=== PATIENT | male | born 1960 | race Caucasian/White ===

== ENCOUNTER 2016-06-20 10:13 | Outpatient (RCR) | payer MEDICARE, MEDICAID ==
[2016-08-03] MEDS ORDERED: POTA-51 PO (11:18)
[2016-08-03] MEDS ORDERED: SERT50TA9 PO (11:18)
[2016-08-03] MEDS ORDERED: HYDR-756 PO (11:18)
[2016-08-03] MEDS ORDERED: ALBU2.5V4 IH (11:18)
[2016-08-03] MEDS ORDERED: INSU100I29 SQ (11:18)
[2016-08-03] MEDS ORDERED: NYST15CR TP (11:18)
[2016-08-03] MEDS ORDERED: LISI-552 PO (11:18)
[2016-08-03] MEDS ORDERED: ONDA4TAB11 PO (11:18)
[2016-08-03] MEDS ORDERED: MELA1TAB27 PO (11:18)
[2016-08-03] MEDS ORDERED: MAGN500T PO (11:18)
[2016-08-03] MEDS ORDERED: FENT1PAT6 TD (11:18)
[2016-08-03] MEDS ORDERED: ALLO100T PO (11:18)
[2016-08-03] MEDS ORDERED: PANT20TA3 PO (11:18)
[2016-08-03] MEDS ORDERED: FURO80TA3 PO (11:18)
[2016-08-03] MEDS ORDERED: VITS42.53 TP (11:18)
[2016-08-03] MEDS ORDERED: TLT2T PO (11:18)
[2016-08-03] MEDS ORDERED: GABA-488 PO (11:18)
[2016-08-03] MEDS ORDERED: INSU100I14 SQ ×2 (11:18)
[2016-08-03] MEDS ORDERED: DULO60CA58 PO (11:18)
[2016-08-03] MEDS ORDERED: DOCU100C37 PO (11:18)
[2016-08-03] MEDS ORDERED: ASPI-983 PO (11:18)
[2016-08-03] MEDS ORDERED: DULO30CA48 PO (11:18)
[2016-08-03] MEDS ORDERED: DILT240C87 PO (11:18)
[2016-08-03] MEDS ORDERED: RIVA20TA PO (11:18)
[2016-08-03] MEDS ORDERED: ATOR20TA66 PO (11:18)
[2016-08-03] MEDS ORDERED: LURA80TA3 PO (11:18)
[2016-08-03] MEDS ORDERED: METF1000 PO (11:18)
[2016-08-03] MEDS ORDERED: FENT1PAT11 TD (11:18)
[2016-08-03] MEDS ORDERED: MIRT15TA6 PO (11:18)
[2016-08-03] MEDS ORDERED: THIA100T12 PO (11:18)
[2016-08-03] MEDS ORDERED: MAGN400O7 PO (11:18)
[2016-08-03] MEDS ORDERED: SITA50TA PO (11:18)
[2016-08-03] MEDS ORDERED: LACT10SO PO (11:18)
[2016-08-03] MEDS ORDERED: SENN-140 PO (11:18)
[2016-08-03] MEDS ORDERED: TAMS0.4C2 PO (11:18)
[2016-08-03] MEDS ORDERED: POLY119P5 PO (11:18)
[2016-08-03] MEDS ORDERED: MIRA50TA PO (11:18)
[2016-08-03] MEDS ORDERED: PHEN100C11 PO (11:28)
== END 2016-09-18 | disposition home or self-care (01) ==
LOC: CARD 10:13
PROVIDERS: ATTEND Internal Medicine Interventional Cardiology
DX: I48.0 Paroxysmal atrial fibrillation (principal)
CPT/HCPCS: 93225; 93226

== ENCOUNTER 2016-07-04 13:00 | Outpatient (RCR) | payer MEDICARE, MEDICAID | END 2016-07-25 11:28 | disposition home or self-care (01) | PROVIDERS: ATTEND Nurse Practitioner Community Health | DX: M79.89 Other specified soft tissue disorders (principal); Z86.73 Personal history of transient ischemic attack (TIA), and cerebral infarction without residual deficits ==

== ENCOUNTER → 2016-07-06 | Outpatient (CLI) | payer MEDICARE, MEDICAID ==
[~2016-07-06] MED LIST: REGADENOSON 0.4 MG/5 ML SYR (LEXISCAN) IV ONE
== END ==
LOC: CARD 07:23
PROVIDERS: ATTEND Internal Medicine Interventional Cardiology
DX: E11.9 Type 2 diabetes mellitus without complications (principal); R07.9 Chest pain, unspecified
CPT/HCPCS: 78452; 93017

== ENCOUNTER 2016-07-20 09:45 | Outpatient (RCR) | payer MEDICARE, MEDICAID ==
[~2016-07-20 09:45] MED LIST changes: +CATHETER FLUSH 10 ML SYR IV PRN; -REGADENOSON 0.4 MG/5 ML SYR (LEXISCAN) IV ONE
[2016-08-03] MEDS ORDERED: LACT10SO PO (11:18)
[2016-08-03] MEDS ORDERED: DULO30CA48 PO (11:18)
[2016-08-03] MEDS ORDERED: ASPI-983 PO (11:18)
[2016-08-03] MEDS ORDERED: HYDR-756 PO (11:18)
[2016-08-03] MEDS ORDERED: DULO60CA58 PO (11:18)
[2016-08-03] MEDS ORDERED: DILT240C87 PO (11:18)
[2016-08-03] MEDS ORDERED: MELA1TAB27 PO (11:18)
[2016-08-03] MEDS ORDERED: THIA100T12 PO (11:18)
[2016-08-03] MEDS ORDERED: ATOR20TA66 PO (11:18)
[2016-08-03] MEDS ORDERED: SERT50TA9 PO (11:18)
[2016-08-03] MEDS ORDERED: SENN-140 PO (11:18)
[2016-08-03] MEDS ORDERED: VITS42.53 TP (11:18)
[2016-08-03] MEDS ORDERED: TAMS0.4C2 PO (11:18)
[2016-08-03] MEDS ORDERED: INSU100I29 SQ (11:18)
[2016-08-03] MEDS ORDERED: MAGN400O7 PO (11:18)
[2016-08-03] MEDS ORDERED: FURO80TA3 PO (11:18)
[2016-08-03] MEDS ORDERED: PANT20TA3 PO (11:18)
[2016-08-03] MEDS ORDERED: LISI-552 PO (11:18)
[2016-08-03] MEDS ORDERED: LURA80TA3 PO (11:18)
[2016-08-03] MEDS ORDERED: RIVA20TA PO (11:18)
[2016-08-03] MEDS ORDERED: ONDA4TAB11 PO (11:18)
[2016-08-03] MEDS ORDERED: FENT1PAT6 TD (11:18)
[2016-08-03] MEDS ORDERED: FENT1PAT11 TD (11:18)
[2016-08-03] MEDS ORDERED: POTA-51 PO (11:18)
[2016-08-03] MEDS ORDERED: MIRA50TA PO (11:18)
[2016-08-03] MEDS ORDERED: ALLO100T PO (11:18)
[2016-08-03] MEDS ORDERED: TLT2T PO (11:18)
[2016-08-03] MEDS ORDERED: GABA-488 PO (11:18)
[2016-08-03] MEDS ORDERED: MIRT15TA6 PO (11:18)
[2016-08-03] MEDS ORDERED: DOCU100C37 PO (11:18)
[2016-08-03] MEDS ORDERED: INSU100I14 SQ ×2 (11:18)
[2016-08-03] MEDS ORDERED: ALBU2.5V4 IH (11:18)
[2016-08-03] MEDS ORDERED: MAGN500T PO (11:18)
[2016-08-03] MEDS ORDERED: POLY119P5 PO (11:18)
[2016-08-03] MEDS ORDERED: NYST15CR TP (11:18)
[2016-08-03] MEDS ORDERED: METF1000 PO (11:18)
[2016-08-03] MEDS ORDERED: SITA50TA PO (11:18)
[2016-08-03] MEDS ORDERED: PHEN100C11 PO (11:28)
== END 2016-09-20 | disposition home or self-care (01) ==
LOC: CARD 09:45
PROVIDERS: ATTEND Internal Medicine Interventional Cardiology
DX: I48.0 Paroxysmal atrial fibrillation (principal)
CPT/HCPCS: 93270

== ENCOUNTER → 2016-07-26 | Outpatient (CLI) | payer MEDICARE, MEDICAID | LOC: CARD 11:05 | PROVIDERS: ATTEND Internal Medicine Interventional Cardiology | DX: R06.02 Shortness of breath (principal); I48.0 Paroxysmal atrial fibrillation; R07.9 Chest pain, unspecified ==

== ENCOUNTER 2016-08-03 08:48 | Day surgery (SDC) | payer MEDICARE, MEDICAID ==
[~2016-08-03] VITALS: Ht 172.7 cm; Wt 158.8 kg
[2016-08-03] VITALS (7 sets, daily range): BP systolic 113–141; BP diastolic 52–91
[2016-08-03] MEDS ORDERED: HEParin (CATH LAB) 2,000 ML IV ONE (08:54)
[2016-08-03] MEDS ORDERED: NS IV 1000 ML 1,000 ML ONE (08:54)
[2016-08-03] MEDS ORDERED: NS IV 1000 ML 1,000 ML IV SCH ×2 (09:01→12:17)
[2016-08-03 09:38] LABS: MEAN PLATELET VOLUME 10.8 FL (7.4-10.4); RED BLOOD COUNT 3.84 10^6/uL (4.35-5.85); RED CELL DISTRIBUTION WIDTH 13.9 % (10.0-14.5); WHITE BLOOD COUNT 5.1 10^3/uL (4.3-11.0)
[2016-08-03 09:56] LABS: ALANINE AMINOTRANSFERASE 28 U/L (0-55); ALBUMIN 4.1 GM/DL (3.2-4.5); ANION GAP 10 MMOL/L (5-14); ASPARTATE AMINO TRANSFERASE 20 U/L (5-34); BILIRUBIN,TOTAL 0.3 MG/DL (0.1-1.0); BLOOD UREA NITROGEN 31 MG/DL (7-18); BUN/CREATININE RATIO 31 (0-20); CALCIUM 9.9 MG/DL (8.5-10.1); CARBON DIOXIDE 27 MMOL/L (21-32); CHLORIDE 103 MMOL/L (98-107); CREATININE SERUM 0.99 MG/DL (0.60-1.30); GFR ESTIMATED > 60; GLUCOSE 139 MG/DL (70-105); HEMOLYSIS 3 (-100-29); ICTERUS 0.3 (-100-1.9); LIPEMIA -1 (-100-49); POTASSIUM 4.7 MMOL/L (3.6-5.0); SODIUM 140 MMOL/L (135-145); TOTAL PROTEIN 7.6 GM/DL (6.4-8.2)
[2016-08-03] MEDS ORDERED: fentaNYL INJECTION 100 MCG/2 ML AMP ONE (10:23)
[2016-08-03] MEDS ORDERED: MIDAZOLAM 5 MG/5 ML (VERSED) VIAL ONE (10:23)
[2016-08-03] MEDS ORDERED: VERAPAMIL 5 MG/2 ML (CALAN) VIAL IV ONE (10:24)
[2016-08-03] MEDS ORDERED: NITROGLYCERIN DRIP 25 MG/D5W 250 ML IV ONE (10:24)
[2016-08-03] MEDS ORDERED: diphenhydrAMINE 50 MG/ML INJ (BENADRYL) ONE (10:24)
[2016-08-03] MEDS ORDERED: HEParin 1000 UNIT/ML (10ML VIAL) FOR BOLUS ONE (10:24)
[2016-08-03 10:58] LABS: PROTHROMBIN TIME PATIENT 12.8 SEC (12.2-14.7)
[2016-08-03] MEDS ORDERED: MAGN400O7 PO (11:18)
[2016-08-03] MEDS ORDERED: ALBU2.5V4 IH (11:18)
[2016-08-03] MEDS ORDERED: TAMS0.4C2 PO (11:18)
[2016-08-03] MEDS ORDERED: ALLO100T PO (11:18)
[2016-08-03] MEDS ORDERED: DILT240C87 PO (11:18)
[2016-08-03] MEDS ORDERED: HYDR-756 PO (11:18)
[2016-08-03] MEDS ORDERED: ONDA4TAB11 PO (11:18)
[2016-08-03] MEDS ORDERED: THIA100T12 PO (11:18)
[2016-08-03] MEDS ORDERED: MAGN500T PO (11:18)
[2016-08-03] MEDS ORDERED: VITS42.53 TP (11:18)
[2016-08-03] MEDS ORDERED: FURO80TA3 PO (11:18)
[2016-08-03] MEDS ORDERED: SERT50TA9 PO (11:18)
[2016-08-03] MEDS ORDERED: LACT10SO PO (11:18)
[2016-08-03] MEDS ORDERED: DOCU100C37 PO (11:18)
[2016-08-03] MEDS ORDERED: NYST15CR TP (11:18)
[2016-08-03] MEDS ORDERED: ASPI-983 PO (11:18)
[2016-08-03] MEDS ORDERED: FENT1PAT6 TD (11:18)
[2016-08-03] MEDS ORDERED: PANT20TA3 PO (11:18)
[2016-08-03] MEDS ORDERED: INSU100I29 SQ (11:18)
[2016-08-03] MEDS ORDERED: LISI-552 PO (11:18)
[2016-08-03] MEDS ORDERED: POLY119P5 PO (11:18)
[2016-08-03] MEDS ORDERED: MIRT15TA6 PO (11:18)
[2016-08-03] MEDS ORDERED: SITA50TA PO (11:18)
[2016-08-03] MEDS ORDERED: RIVA20TA PO (11:18)
[2016-08-03] MEDS ORDERED: TLT2T PO (11:18)
[2016-08-03] MEDS ORDERED: POTA-51 PO (11:18)
[2016-08-03] MEDS ORDERED: MELA1TAB27 PO (11:18)
[2016-08-03] MEDS ORDERED: MIRA50TA PO (11:18)
[2016-08-03] MEDS ORDERED: DULO60CA58 PO (11:18)
[2016-08-03] MEDS ORDERED: DULO30CA48 PO (11:18)
[2016-08-03] MEDS ORDERED: METF1000 PO (11:18)
[2016-08-03] MEDS ORDERED: ATOR20TA66 PO (11:18)
[2016-08-03] MEDS ORDERED: GABA-488 PO (11:18)
[2016-08-03] MEDS ORDERED: SENN-140 PO (11:18)
[2016-08-03] MEDS ORDERED: INSU100I14 SQ ×2 (11:18)
[2016-08-03] MEDS ORDERED: LURA80TA3 PO (11:18)
[2016-08-03] MEDS ORDERED: FENT1PAT11 TD (11:18)
[2016-08-03] MEDS ORDERED: PHEN100C11 PO (11:28)
[2016-08-03 11:54] LABS: BILIRUBIN,URINE NEGATIVE (NEGATIVE); KETONES,URINE NEGATIVE (NEGATIVE); LEUKOCYTE ESTERASE ,URINE 2+ (NEGATIVE); NITRITE,URINE NEGATIVE (NEGATIVE); PH,URINE 5 (5-9); PROTEIN,URINE NEGATIVE (NEGATIVE); UROBILINOGEN,URINE NORMAL (NORMAL)
[2016-08-03 12:05] LABS: SQUAMOUS EPITHELIAL CELL,UR 0-2 /HPF; WBC,URINE RARE /HPF
--- NOTE | 2016-08-03 12:15 | Cardiac Procedure Note-CS/ASA ---
Pre-Procedure Note Pre-Op Procedure Note H&P Reviewed The H&P was reviewed, patient examined and no changes noted. Date H&P Reviewed: Aug 03, 2016 Time H&P Reviewed: 11:30 Conscious Sedation Pre-Proced Time Reviewed: 11:30 ASA Class: 3 Airway Mallampati Classification: (robinson appropriate class) I. II. III, IV Lungs Heart ASA score ASA 1: a normal healthy patient ASA 2: a patient with a mild systemic disease (mid diabetes, controlled hypertension, obesity ASA 3: a patient with a severe systemic disease that limits activity (angina , COPD, prior Myocardial infarction) ASA 4: a patient with an incapacitating disease that is a constant threat to life (CHF, renal failure) ASA 5: a moribund patient not expected to survive 24 hrs. (ruptured aneurysm) ASA 6: a declared brain patient whose organs are being harvested. For emergent operations, add the letter E after the classification Grade 1 Sedation Plan: Analgesia, Amnesia, Plan communicated to team members, Discussed options with patient/fam, Discussed risks with patient/fam Note The patient is an appropriate candidate to undergo the planned procedure, sedation, and anesthesia. The patient immediately re-assessed prior to indication. Daniel CHILDS MD Aug 03, 2016 12:15 pm
--- NOTE | 2016-08-03 12:17 | Cardiology Post Procedure Note ---
Post-Procedure Note Physician (s)/Materials Recycler (s) Physician Daniel CHILDS MD Pre-Procedure Diagnosis Pre-Procedure Diagnosis: recurrent chest pain, abnormal nuclear stress test Post-Procedure Note Procedure Start Date: Aug 03, 2016 Procedure Start Time: 11:45 Name of Procedure: coronary angiography, left heart catheterization Findings/Procedure Note patent epicardial coronary vessels. fluoroscopy time in minutes 8.8 minutes Fluoroscopy dose: 1405 mgy Anesthesia Type: Conscious Sedation Estimated blood loss (mL): 10 mL Contrast Amount: 182 Post-Procedure Diagnosis Post-operative diagnosis: patent epicardial coronary vessels Daniel CHILDS MD Aug 03, 2016 12:17 pm
--- NOTE | 2016-08-03 12:20 | Discharge Inst-Post CATH ---
Discharge Inst-CATH Post Cardiac Cath D/C Inst Follow Up/Plan follow-up with primary care physician CARDIAC CATH DISCHARGE INSTRUCTIONS *Hold Metformin for 48 hours post heart cath. ACTIVITY * Go Home directly and rest. * Limit activity of the leg (or wrist if it was used) for 7 days including aerobics, swimming, jogging, bicycling, etc. * Restrict stair-climbing for 7 days if possible, if not, climb up with your non -cath leg, then bring together on the same step. * Avoid lifting, pushing, pulling or excessive movement of the affected extremity for 7 days. * Customary sexual activity may be resumed after 2 days-use caution not to use a position that strains or causes pain to the affected extremity. * No driving for 24 hours. * NO SMOKING. * Avoid straining for bowel movements for 7 days. * Gentle walking on level ground is allowed. * Returning to work will depend on the type of procedure and the results. Your doctor will discuss this with you. CALL YOUR DOCTOR FOR ANY OF THE FOLLOWING: *If bleeding from the puncture site occurs- Apply gentle pressure to site with clean cloth and call your doctor or EMS. * If a knot or lump forms under the skin, increases in size, or causes pain. * If bruising appears to be worsening or moving further down your leg instead of disappearing. * Temperature above 101 F. CARE OF YOUR GROIN INCISION; * Bruising or purple discoloration of the skin near the puncture site is common. * You may shower only, no bathtub bathing for 5 days. Be careful to avoid slipping as your leg may feel stiff. * If a closure device was used on your femoral artery, please see the attached guide regarding care of the device and your leg. * REMOVE the dressing from your groin the next day after your procedure in the shower. CARE OF YOUR WRIST INCISION; * Bruising or purple discoloration of the skin near the puncture site is common. * You may shower. * DO NOT submerge wrist. * Remove dressing in 24 hours. Daniel CHILDS MD Aug 03, 2016 12:20 pm
--- NOTE | 2016-08-03 12:22 | Cardiology Discharge Summary ---
Diagnosis/Chief Complaint Date of Admission 08/03/2016 Date of Discharge 08/03/2016 Admission Diagnosis recurrent chest pain, abnormal nuclear stress test Final/Discharge Diagnosis patent epicardial coronary vessels Chief Complaint/HPI Chief Complaint/HPI recurrent chest pain, abnormal nuclear stress test Discharge Summary Procedures coronary angiography Discharge Physical Examination stable Hospital Course stable Pending Labs Laboratory Tests 08/03/16 09:28: White Blood Count 5.1, Red Blood Count 3.84, Hemoglobin 11.8, Hematocrit 36, Mean Corpuscular Volume 95, Mean Corpuscular Hemoglobin 31, Mean Corpuscular Hemoglobin Concent 32, Red Cell Distribution Width 13.9, Platelet Count 145, Mean Platelet Volume 10.8, Sodium Level 140, Potassium Level 4.7, Chloride Level 103, Carbon Dioxide Level 27, Anion Gap 10, Blood Urea Nitrogen 31, Creatinine 0.99, Estimat Glomerular Filtration Rate > 60, BUN/Creatinine Ratio 31, Glucose Level 139, Calcium Level 9.9, Total Bilirubin 0.3, Aspartate Amino Transf (AST/SGOT) 20, Alanine Aminotransferase (ALT/SGPT) 28, Alkaline Phosphatase 43, Total Protein 7.6, Albumin 4.1 08/03/16 10:40: Prothrombin Time 12.8, INR Comment 1.0, Activated Partial Thromboplast Time 28 08/03/16 10:55: Urine Color YELLOW, Urine Clarity CLEAR, Urine pH 5, Urine Specific Logan 1.010, Urine Protein NEGATIVE, Urine Glucose (UA) NEGATIVE, Urine Ketones NEGATIVE, Urine Nitrite NEGATIVE, Urine Bilirubin NEGATIVE, Urine Urobilinogen NORMAL, Urine Leukocyte Esterase 2+, Urine RBC (Auto) NEGATIVE, Urine RBC NONE, Urine WBC RARE, Urine Squamous Epithelial Cells 0-2, Urine Crystals NONE, Urine Bacteria NEGATIVE, Urine Casts NONE, Urine Mucus NEGATIVE, Urine Culture Indicated NO Discussion & Recommendations Discussion patent epicardial coronary vessels. Cardiology follow-up not required. Follow- up with primary care physician. Follow up appt.: primary care physician in 2-3 weeks. Dicharge Diet: Cardiac Diet Activity as Tolerated: Yes Home Medications Reviewed patient Home Medication Reconciliation Form Discharge Home Medications: Reviewed and agree with Discharge Medication list on patient's Discharge Instruction sheet Condition at discharge stable Instructions to patient/family follow-up with primary care physician Daniel CHILDS MD Aug 03, 2016 12:22 pm
[2016-08-03] MEDS ORDERED: PATIENT MAY USE OWN MEDS, ALL PO SCH (12:30)
--- NOTE | 2016-08-03 13:04 | CARDIAC CATHETERIZATION ---
DATE OF SERVICE: 08/03/2016 CORONARY ANGIOGRAPHY INDICATION: Recurrent chest pain, abnormal nuclear stress test. PREOPERATIVE DIAGNOSES: Recurrent chest pain, abnormal nuclear stress test. POSTOPERATIVE DIAGNOSIS: Patent epicardial coronary vessels. HISTORY OF PRESENT ILLNESS: The patient is a 56-year-old gentleman who lives in a long-term nursing facility due to a previous stroke with residual damage. He had presented with recurrent chest pain. Stress test was performed, which was abnormal. Therefore, coronary angiography was recommended. PROCEDURES PERFORMED: 1. Coronary angiography. 2. Left heart catheterization. COMPLICATIONS: None. SPECIMENS: None. ANTICOAGULATION: IV heparin. CONTRAST: 182 mL of Omnipaque. FLUOROSCOPY TIME: 8.8 minutes. FLUOROSCOPY DOSE: 1405 mGy. PROCEDURE DETAILS: The patient was brought to the chemical laboratory scientist after informed consent was taken. All the risks and complications were explained in detail. He was draped and prepped in the usual sterile fashion. Access was gained in the right radial artery with a 6-Bulgarian sheath. Left heart catheterization and coronary angiography was performed with a Kong catheter. FINDINGS: 1. Left main is very short left main. Patent. 2. LAD: Patent. 3. Left circumflex artery: Patent. 4. RCA: Patent. 5. Left heart catheterization: Aortic pressure 89/63 mmHg. LV pressure 111/3 mmHg. LVEDP is 12 mmHg. LVEF is 50% to 55% with no wall motion abnormalities. There is no gradient across the aortic valve. IMPRESSION AND CONCLUSION: 1. Patent epicardial coronary vessels. 2. The patient will be discharged later today and transferred to nursing facility. Job ID: [id number] DocumentID: [id number] Dictated Date: 08/03/2016 12:32:31 Escrow Secretary Date: 08/03/2016 13:04:17 Dictated By: NEIL CHILDS MD
--- OUTSIDE RECORDS SUMMARY | 2016-08-07 10:38 | XMS REPORT | Clinical Summary ---
Author Author Admin, [place] Organization [facility] Address Unknown Phone Unavailable Allergies, Adverse Reactions, Alerts Allergy Name Reaction Description Start Date Severity Status Provider PENICILLIN Critical Active [place]ja[place] Giles, RMA Conditions or Problems Problem Name Problem Code Onset Date Status Entry Date Provider Comment Standard Description Annotate DIABETES MELLITUS, TYPE II, CONTROLLED 250.00 Active Jonel Hemphill MD Diabetes mellitus without mention of complication, type II or unspecified type, not stated as uncontrolled MORBID OBESITY 278.01 Active Jonel Hemphill MD Morbid obesity HYPERTENSION 401.1 Active Jonel Hemphill MD Benign essential hypertension 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 USE, CUT IN STATION OPERATOR V58.69 Resolved Jonel Hemphill MD Long-term (current) use of other medications C V A / STROKE 436 Active Gregor Giles, RMA Acute, but ill-defined, cerebrovascular disease C O P D 496 Active Gregor Giles RMA Chronic airway obstruction, not elsewhere classified DIABETES, TYPE 2 250.00 Resolved Jonel Hemphill MD Diabetes mellitus without mention of complication, type II or unspecified type, not stated as uncontrolled SEIZURE DISORDER 780.39 Active Gregor Giles RMA Other convulsions CORONARY HEART DISEASE 414.00 Resolved Jonel Hemphill MD Coronary atherosclerosis of unspecified type of vessel, [place] or graft FH DIABETES V18.0 Resolved Jonel Hemphill MD Family history of diabetes mellitus FH STROKE V17.1 Resolved Jonel Hemphill MD Family history of stroke (cerebrovascular) FAMILY HISTORY COLON CANCER-MOTHER V16.0 Resolved Jonel Hemphill MD Family history of malignant neoplasm of gastrointestinal tract VENOUS INSUFFICIENCY 459.81 Resolved Jonel Hemphill MD Venous (peripheral) insufficiency, unspecified SLEEP APNEA 780.57 Resolved Jonel Hemphill MD Unspecified sleep apnea PERIPHERAL NEUROPATHY 356.9 Active Jonel Hemphill MD Unspecified hereditary and idiopathic peripheral neuropathy LYMPHEDEMA 457.1 Active Jonel Hemphill MD Other lymphedema DIABETIC ULCER, LEG 707.10 Resolved Jonel Hemphill MD Ulcer of lower limb, unspecified SLEEP APNEA 780.57 Resolved Jonel Hemphill MD Unspecified sleep apnea CELLULITIS, LEG, RIGHT 682.6 Resolved Jonel Hemphill MD Cellulitis and abscess of leg, except foot CALLUS, RIGHT FOOT 700 Resolved Jonel Hemphill MD Corns and callosities CHEST PAIN 786.50 Resolved Jonel Hemphill MD Unspecified chest pain C A D 414.00 Active Jonel Hemphill MD Coronary atherosclerosis of unspecified type of vessel, kobuk or graft CONSTIPATION 564.00 Resolved Jonel Hemphill MD Constipation, unspecified RECTAL BLEEDING 569.3 Resolved Jonel Hemphill MD Hemorrhage of rectum and anus FITTING AND ADJUSTMENT OF VASCULAR CATHETER V58.81 Resolved 2012 Jonel Hemphill MD Encounter for fitting and adjustment of vascular catheter VENOUS STASIS ULCER 454.0 Resolved Jonel Hemphill MD Varicose veins of lower extremities with ulcer RECTAL BLEEDING 569.3 Resolved Jonel Hemphill MD Hemorrhage of rectum and anus DEPRESSION 311 Active Jonel Hemphill MD Depressive disorder, not elsewhere classified LUMBAGO 724.2 Resolved Jonel Hemphill MD Lumbago SHOULDER STRAIN, RIGHT 840.9 Resolved Jonel Hemphill MD Sprain of unspecified site of shoulder and upper arm TREMOR 781.0 Resolved Jonel Hemphill MD Abnormal involuntary movements FITTING AND ADJUSTMENT OF VASCULAR CATHETER V58.81 Resolved 2013 Jonel Hemphill MD Encounter for fitting and adjustment of vascular catheter DEHYDRATION 276.51 Resolved Jonel Hemphill MD Dehydration RENAL FAILURE, ACUTE 584.9 Resolved Jonel Hemphill MD Acute kidney failure, unspecified HYPERKALEMIA 276.7 Resolved Jonel Hemphill MD Hyperpotassemia POTASSIUM DEFICIENCY 276.8 Resolved Jonel Hemphill MD Hypopotassemia LOOSE STOOLS 787.91 Resolved Jonel Hemphill MD Diarrhea GOUT 274.9 Active Darian Kitchen Gout, unspecified RENAL INSUFFICIENCY 585.9 Resolved Jonel Hemphill MD Chronic kidney disease, unspecified RENAL FAILURE, CHRONIC 585.9 Active Jonel Hemphill MD Chronic kidney disease, unspecified CHRONIC PAIN SYNDROME 338.4 Active Jonel Hemphill MD Chronic pain syndrome CHRONIC KIDNEY DISEASE UNSPECIFIED 585.9 Resolved Jonel Hemphill MD Chronic kidney disease, unspecified Infection and inflammatory reaction due to other internal prosthetic device, implant, and graft 996.69 Resolved Jonel Hemphill MD Infection and inflammatory reaction due to other internal prosthetic device, implant, and graft AFTERCARE FOLLOW SURGERY SKIN&SUBCUT TISSUE NEC V58.77 Resolved Jonel Hemphill MD Aftercare following surgery of the skin and subcutaneous tissue, NEC Dysuria 788.1 Resolved Jonel Hemphill MD Dysuria Other malaise and fatigue 780.79 Resolved Jonel Hemphill MD Other malaise and fatigue Malaise and fatigue 780.79 Resolved Jonel Hemphill MD Other malaise and fatigue Nightmares 307.47 Resolved Jonel Hemphill MD Other dysfunctions of sleep stages or arousal from sleep Bronchitis-Acute 466.0 Inactive Jonel Hemphill MD Acute bronchitis Foot pain, right 729.5 Resolved Jonel Hemphill MD Pain in limb Tinea corporis 110.5 Resolved Jonel Hemphill MD Dermatophytosis of the body Cellulitis, leg, right 682.6 Inactive Jonel Hemphill MD Cellulitis and abscess of leg, except foot Flank pain, right 789.09 Inactive Jonel Hemphill MD Abdominal pain, other specified site; multiple sites Eye pain 379.91 Resolved Jonel Hemphill MD Pain in or around eye Fever 780.60 Resolved Jonel Hemphill MD Fever , unspecified Chest pain 786.50 Resolved Jonel Hemphill MD Unspecified chest pain Hip pain, right 719.45 Resolved Jonel Hemphill MD Pain in joint involving pelvic region and thigh Bronchitis-Acute 466.0 Resolved Jonel Hemphill MD Acute bronchitis Cellulitis, leg, right 682.6 Resolved Jonel Hemphill MD Cellulitis and abscess of leg, except foot Chest wall pain, acute 786.52 Resolved Jonel Hemphill MD Painful respiration Accidental fall E888.9 Active Jonel Hemphill MD Unspecified fall Obstructive sleep apnea, adult 327.23 Active Jonel Hemphill MD Obstructive sleep apnea (adult) (pediatric) 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 USE, CUT IN STATION OPERATOR ICD-V58.69 Inactive Jonel Hemphill MD DIABETES, TYPE 2 ICD-250.00 Inactive Jonel Hemphill MD CORONARY HEART DISEASE ICD-414.00 Inactive Jonel Hemphill MD FH DIABETES ICD-V18.0 Inactive Jonel Hemphill MD FH STROKE ICD-V17.1 Inactive Jonel Hemphill MD FAMILY HISTORY COLON CANCER-MOTHER ICD-V16.0 Inactive Jonel Hemphill MD VENOUS INSUFFICIENCY ICD-459.81 Inactive Jonel Hemphill MD SLEEP APNEA ICD-780.57 Inactive Jonel Hemphill MD DIABETIC ULCER, LEG ICD-707.10 Inactive Jonel Hemphill MD SLEEP APNEA ICD-780.57 Inactive Jonel Hemphill MD CELLULITIS, LEG, RIGHT ICD-682.6 Inactive Jonel Hemphill MD CALLUS, RIGHT FOOT ICD-700 Inactive Jonel Hemphill MD CHEST PAIN ICD-786.50 Inactive Jonel Hemphill MD CONSTIPATION ICD-564.00 Inactive Jonel Hemphill MD RECTAL BLEEDING ICD-569.3 Inactive Jonel Hemphill MD FITTING AND ADJUSTMENT OF VASCULAR CATHETER ICD-V58.81 Inactive Jonel Hemphill MD VENOUS STASIS ULCER ICD-454.0 Inactive Jonel Hemphill MD RECTAL BLEEDING ICD-569.3 Inactive Jonel Hemphill MD LUMBAGO ICD-724.2 Inactive Jonel Hemphill MD 2013 SHOULDER STRAIN, RIGHT ICD-840.9 Inactive Jonel Hemphill MD TREMOR ICD-781.0 Inactive Jonel Hemphill MD 05/30 FITTING AND ADJUSTMENT OF VASCULAR CATHETER ICD-V58.81 Inactive Jonel Hemphill MD DEHYDRATION ICD-276.51 Inactive Jonel Hemphill MD RENAL FAILURE, ACUTE ICD-584.9 Inactive Jonel Hemphill MD HYPERKALEMIA ICD-276.7 Inactive Jonel Hemphill MD 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 Inactive Jonel Hemphill MD LOOSE STOOLS ICD-787.91 Inactive Jonel Hemphill MD RENAL INSUFFICIENCY ICD-585.9 Inactive Jonel Hemphill MD CHRONIC KIDNEY DISEASE UNSPECIFIED ICD-585.9 Inactive Jonel Hemphill MD Infection and inflammatory reaction due to other internal prosthetic device, implant, 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 Inactive Jonel Hemphill MD AFTERCARE FOLLOW SURGERY SKIN&SUBCUT TISSUE NEC ICD-V58.77 05/30 Inactive Jonel Hemphill MD Dysuria ICD-788.1 Inactive Jonel Hemphill MD 2013 Other malaise and fatigue ICD-780.79 Inactive Jonel Hemphill MD Malaise and fatigue ICD-780.79 Inactive Jonel Hemphill MD Nightmares ICD-307.47 Inactive Jonel Hemphill MD Bronchitis-Acute ICD-466.0 Inactive Jonel Hemphill MD Foot pain, right ICD-729.5 Inactive Jonel Hemphill MD Tinea corporis ICD-110.5 Inactive Jonel Hemphill MD Cellulitis, leg, right ICD-682.6 Inactive Jonel Hemphill MD Flank pain, right ICD-789.09 Inactive Jonel Hemphill MD Eye pain ICD-379.91 Inactive Jonel Hemphill MD Fever ICD-780.60 Inactive Jonel Hemphill MD 10/25 Chest pain ICD-786.50 Inactive Jonel Hemphill MD Hip pain, right ICD-719.45 Inactive Jonel Hemphill MD Bronchitis-Acute ICD-466.0 Inactive Jonel Hemphill MD Cellulitis, leg, right ICD-682.6 Inactive Jonel Hemphill MD Chest wall pain, acute ICD-786.52 Inactive Jonel Hemphill MD Medication List Medication Instructions Start Date Stop Date Generic Name NDC Status Provider Patient Instruction FENTANYL 12 MCG/HR PT72 Apply to clean, dry skin and change every 72 hours FENTANYL [id number] Active Tova Chris Active MIRALAX POWD 17 gms in 4 oz water or juice daily POLYETHYLENE GLYCOL 3350 55313339730 Active Jonel Hemphill MD Active CVS MELATONIN 3 MG ORAL TABS 2 tabs at hs MELATONIN 87622520631 Active Jonel Hemphill MD Active MAGNESIUM GLUCONATE 500 MG ORAL TABS 1 tab twice daily MAGNESIUM GLUCONATE 50725972856 Active Jonel Hemphill MD Active OMEPRAZOLE 20 MG CPDR 1 tablet by mouth daily OMEPRAZOLE 03178570760 Active Jonel Hemphill MD Active DIGOXIN 125 MCG ORAL TABS 1 daily DIGOXIN 10362714918 Active Jonel Hemphill MD Active DILTIAZEM CD 240 MG ORAL [id number] 1 daily DILTIAZEM HCL COATED BEADS 56726949216 Active Jonel Hemphill MD Active NOVOLOG 100 UNIT/ML SC SOLN 70-140=0U 141-180=2 U 181-220=4U 221-260=6U 261- 300=8U 301-340=10U 827=672=87K 381-400=14U INSULIN ASPART 58435429668 Active Jonel Hemphill MD Active ACETAMINOPHEN 325 MG ORAL TABS 1 tab by mouth every 4 hours as needed ACETAMINOPHEN 62018439296 Active Jonel Hemphill MD Active FENTANYL 12 MCG/HR PT72 Apply to clean, dry skin and change every 72 hours FENTANYL 80590000759 No Longer Active Jonel Hemphill MD Active PHENYTOIN 50 MG CHEW 1 TAB PO BID PHENYTOIN 83053614277 No Longer Active Jonel Hemphill MD Active NORCO 5-325 MG TABS 1-2 TAB Q 6 HRS PRN HYDROCODONE- ACETAMINOPHEN 77915788552 No Longer Active Jonel Hemphill MD Active MULTIVITAMINS CAPS 1 DAILY MULTIPLE VITAMIN 61823544786 No Longer Active Jonel Hemphill MD Active BUPROPION HCL ER (SR) 150 MG [id number] 1 twice a day for depression BUPROPION HCL 71622618297 No Longer Active Jonel Hemphill MD Active LISINOPRIL 20 MG TABS 1 tablet by mouth daily LISINOPRIL 18444189165 Active Jonel Hemphill MD Active ULORIC 40 MG ORAL TABS 1 daily for gout. FEBUXOSTAT 22799413554 No Longer Active Jonel Hemphill MD Active CELEXA 20 MG TABS 1 tablet by mouth daily CITALOPRAM HYDROBROMIDE 58951033512 Active Marleni Raida Active ZOFRAN 4 MG TABS 1 po q6hr PRN Nausea ONDANSETRON HCL 16742830533 Active Jonel Hemphill MD Active XARELTO 20 MG ORAL TABS 1 daily RIVAROXABAN 93538349423 Active Jonel Hemphill MD Active JANUVIA 100 MG ORAL TABS 2 tabs daily SITAGLIPTIN PHOSPHATE 77651517167 Active Jonel Hemphill MD Active CELEXA 20 MG TABS Take 1 tablet 1x daily CITALOPRAM HYDROBROMIDE 29395694752 No Longer Active Jonel Hemphill MD Active ATIVAN 0.5 MG TABS Take 1 tablet 2x daily PRN LORAZEPAM 77029051424 No Longer Active Jonel Hemphill MD Active FUROSEMIDE 80 MG ORAL TABS 1 daily FUROSEMIDE 45797311935 Active Jonel Hemphill MD Active MECLIZINE HCL 25 MG CHEW TAB 1 four times a day as needed for dizziness 02/21 MECLIZINE HCL 92770021383 No Longer Active Jonel Hemphill MD Active ZYLOPRIM 300 MG TAB 1 BY MOUTH DAILY ALLOPURINOL 72310990831 No Longer Active Jonel Hemphill MD Active METOPROLOL TARTRATE 50 MG ORAL TABS 1 TAB BY MOUTH TWICE DAILY METOPROLOL TARTRATE 50929352577 No Longer Active Jonel Hemphill MD Active GABAPENTIN 400 MG ORAL CAPS 1 TAB BY MOUTH THREE TIMES DAILY 2015 GABAPENTIN 15728278849 No Longer Active Jonel Hemphill MD Active HYDROCODONE-ACETAMINOPHEN 7.5-325 MG TABS 1 TAB PO Q 6 HRS PRN HYDROCODONE-ACETAMINOPHEN 15293673316 Active Jonel Hemphill MD Active METFORMIN HCL 1000 MG TABS 1 tablet by mouth twice daily METFORMIN HCL 73517101830 Active Marleni Romero Active KLOR-CON 20 MEQ ORAL PACK 1 BY MOUTH DAILY POTASSIUM CHLORIDE 18215564671 Active Marleni Romero Active A+D FIRST AID EXT OINT APPLY OINTMENT AND RUFINO WRAPS TO LOWER EXTEREMETIES DAILY SKIN PROTECTANTS, MISC. 63688131407 Active Jonel Hemphill MD Active NYSTATIN 897144 UNIT/GM EXT OINT APPLY PRN TID TO GAULDING/RASH IN ABDOMINAL FOLDS NYSTATIN 66072290791 Active Jonel Hemphill MD Active GABAPENTIN 300 MG CAPS 1 CAP PO TID GABAPENTIN 54931772071 No Longer Active Jonel Hemphill MD Active DILANTIN 100 MG ORAL CAPS 1 THREE TIMES DAILY FOR SEIZURES PHENYTOIN SODIUM EXTENDED 24804014345 Active Marleni Romero Active CPAP APPLY AT HS CPAP Active Jonel Hepmhill MD Active HYDROCODONE-ACETAMINOPHEN 7.5-325 MG TABS 1 q 6 hrs prn HYDROCODONE-ACETAMINOPHEN 06805497168 No Longer Active Jonel Hemphill MD Active DILANTIN 100 MG CAPS 3 cap tid PHENYTOIN SODIUM EXTENDED 50336218986 No Longer Active Jonel Hemphill MD Active BUDEPRION SR 150 MG [id number] 1 bid BUPROPION HCL 22277574495 No Longer Active Jonel Hemphill MD Active ALLOPURINOL 300 MG TABS 1 qd ALLOPURINOL 57148870276 No Longer Active Jonel Hemphill MD Active COZAAR 100 MG TABS 1 qd LOSARTAN POTASSIUM 56074509068 No Longer Active Jonel Hemphill MD Active CVS VITAMIN C 500 MG TABS 1 po daily ASCORBIC ACID 51981556328 No Longer Active Jonel Hemphill MD Active MIRALAX POWD 17 gms in 4 oz water or juice daily POLYETHYLENE GLYCOL 3350 10514507464 No Longer Active Jonel Hemphill MD Active POTASSIUM CHLORIDE CHELA ER 20 MEQ CR-TABS 1 tab PO daily POTASSIUM CHLORIDE CHELA CR 94243183132 No Longer Active Jonel Hemphill MD Active AMBIEN 10 MG TAB 1 tab by mouth at bedtime as needed for sleep ZOLPIDEM TARTRATE 13729379664 No Longer Active Jonel Hemphill MD Active SULFAMETHOXAZOLE-TMP DS 800-160 MG TABS 1 TAB PO BID SULFAMETHOXAZOLE-TRIMETHOPRIM 97384295777 No Longer Active Jonel Hemphill MD Active LEVEMIR 100 UNIT/ML SOLN 5 units sub-q at bedtime INSULIN DETEMIR 95256887663 No Longer Active Tova Perez Active MOBIC 15 MG TABS 1 tab PO daily for arthritis pain MELOXICAM 62957442112 No Longer Active Tova Perez Active GLUCAGEN 1 MG SOLR INJECT 1MG IM IF BS LESS THAN 60 & RES. IS UNABLE TO SWALLOW GLUCAGON HCL (RDNA) 36082458443 No Longer Active Tova Perez Active CVS MILK OF MAGNESIA 1200 MG/15ML SUSP 30 ml daily for constipation MAGNESIUM HYDROXIDE 29621841083 No Longer Active Tova Perez Active IMDUR 120 MG [id number] 1 qd ISOSORBIDE MONONITRATE 86963968908 No Longer Active Tova Perez Active NEURONTIN 400 MG CAPS Take one by mouth 3 times daily, morning, afternoon and evening.] GABAPENTIN 04824909436 No Longer Active Tova Perez Active ANTIVERT 25 MG TABS 1 q 6 hrs prn MECLIZINE HCL 57373519668 No Longer Active Jonel Hemphill MD Active CLONIDINE HCL 0.2 MG TABS 1 q 8 hrs as needed -greater than 160-htn CLONIDINE HCL 23685068504 No Longer Active Jonel Hemphill MD Active AMBIEN 10 MG TABS 1 q hs prn ZOLPIDEM TARTRATE 93382073430 No Longer Active Jonel Hemphill MD Active GNP THERAPEUTIC-M TABS 1 qd MULTIPLE VITAMINS- MINERALS 00269661590 No Longer Active Jonel Hemphill MD Active METOPROLOL TARTRATE 50 MG TABS 1 bid METOPROLOL TARTRATE 00201581819 No Longer Active Jonel Hemphill MD Active METFORMIN HCL 500 MG TABS 1 bod with food METFORMIN HCL 76643411458 No Longer Active Jonel Hemphill MD Active LISINOPRIL 40 MG TABS 1 qd LISINOPRIL 97425178069 No Longer Active Jonel Hemphill MD Active HYDROCHLOROTHIAZIDE 25 MG TABS 1 qd HYDROCHLOROTHIAZIDE 73915710957 No Longer Active Jonel Hemphill MD Active DURAGESIC-25 25 MCG/HR PT72 place 1 patch on the skin q72hrs for pain FENTANYL 75306087797 No Longer Active Jonel Hemphill MD Active FENTANYL 75 MCG/HR PT72 place 1 patch on skin q72hrs fr pain 2012 FENTANYL 91243777727 No Longer Active Jonel Hemphill MD Active FUROSEMIDE 40 MG TABS 1 q am FUROSEMIDE 63996717844 No Longer Active Jonel Hemphill MD Active HEPARIN (PORCINE) LOCK FLUSH 100 UNIT/ML SOLN Flush port a cath monthly every three week on with Heparin and NS HEPARIN LOCK FLUSH 36903423438 Active Jonel Hemphill MD Active FENTANYL 100 MCG/HR PT72 Apply every 3 days FENTANYL 19609862473 Active Jonel Hemphill MD Active FENTANYL 25 MCG/HR PT72 Apply to clean skin and change every 72 hours. 07/03 FENTANYL 49532651937 No Longer Active Jonel Hemphill MD Active FENTANYL 50 MCG/HR PT72 place 1 patch on skin q72 hours FENTANYL 52451108891 No Longer Active Mayco Shah APRN Active DURAGESIC-12 12 MCG/HR PT72 APPLY PATCH TO SKIN AND CHANGE EVERY 72 HOURS, ROTATE SITES FENTANYL 54019234472 No Longer Active Fozia YANGA Active FUROSEMIDE 20 MG TABS 1 qd FUROSEMIDE 29840922751 No Longer Active [place] Active ADULT ASPIRIN EC LOW STRENGTH 81 MG TBEC 1 qd ASPIRIN 58339336076 Active MARY Perez Active FUROSEMIDE 20 MG TABS 1 qd FUROSEMIDE 20 MG TABS 480033 FUROSEMIDE Inactive DURAGESIC-12 12 MCG/HR PT72 APPLY PATCH TO SKIN AND CHANGE EVERY 72 HOURS, ROTATE SITES DURAGESIC-12 12 MCG/HR PT72 429829 FENTANYL Inactive FENTANYL 50 MCG/HR PT72 place 1 patch on skin q72 hours FENTANYL 50 MCG/HR PT72 404606 FENTANYL Inactive FUROSEMIDE 40 MG TABS 1 q am FUROSEMIDE 40 MG TABS 507917 FUROSEMIDE Inactive FENTANYL 75 MCG/HR PT72 place 1 patch on skin q72hrs fr pain 2012 FENTANYL 75 MCG/HR PT72 216396 FENTANYL Inactive DURAGESIC-25 25 MCG/HR PT72 place 1 patch on the skin q72hrs for pain DURAGESIC-25 25 MCG/HR PT72 068553 FENTANYL Inactive HYDROCHLOROTHIAZIDE 25 MG TABS 1 qd HYDROCHLOROTHIAZIDE 25 MG TABS 098773 HYDROCHLOROTHIAZIDE Inactive LISINOPRIL 40 MG TABS 1 qd LISINOPRIL 40 MG TABS 345754 LISINOPRIL Inactive METFORMIN HCL 500 MG TABS 1 bod with food METFORMIN HCL 500 MG TABS 760897 METFORMIN HCL Inactive METOPROLOL TARTRATE 50 MG TABS 1 bid METOPROLOL TARTRATE 50 MG TABS 575115 METOPROLOL TARTRATE Inactive GNP THERAPEUTIC-M TABS 1 qd GNP THERAPEUTIC-M TABS MULTIPLE VITAMINS-MINERALS Inactive AMBIEN 10 MG TABS 1 q hs prn AMBIEN 10 MG TABS 395280 ZOLPIDEM TARTRATE Inactive CLONIDINE HCL 0.2 MG TABS 1 q 8 hrs as needed -greater than 160-htn CLONIDINE HCL 0.2 MG TABS 276976 CLONIDINE HCL Inactive ANTIVERT 25 MG TABS 1 q 6 hrs prn ANTIVERT 25 MG TABS MECLIZINE HCL Inactive NEURONTIN 400 MG CAPS Take one by mouth 3 times daily, morning, afternoon and evening.] NEURONTIN 400 MG CAPS 244535 GABAPENTIN Inactive IMDUR 120 MG [id number] 1 qd IMDUR 120 MG [id number] ISOSORBIDE MONONITRATE Inactive [facility]S MILK OF MAGNESIA 1200 MG/15ML SUSP 30 ml daily for constipation CVS MILK OF MAGNESIA 1200 MG/15ML SUSP MAGNESIUM HYDROXIDE Inactive GLUCAGEN 1 MG SOLR INJECT 1MG IM IF BS LESS THAN 60 & RES. IS UNABLE TO SWALLOW GLUCAGEN 1 MG SOLR GLUCAGON HCL (RDNA) Inactive MOBIC 15 MG TABS 1 tab PO daily for arthritis pain MOBIC 15 MG TABS 456624 MELOXICAM Inactive LEVEMIR 100 UNIT/ML SOLN 5 units sub-q at bedtime LEVEMIR 100 UNIT/ML SOLN INSULIN DETEMIR Inactive SULFAMETHOXAZOLE-TMP DS 800-160 MG TABS 1 TAB PO BID SULFAMETHOXAZOLE-TMP DS 800-160 MG TABS 651449 SULFAMETHOXAZOLE-TRIMETHOPRIM Inactive AMBIEN 10 MG TAB 1 tab by mouth at bedtime as needed for sleep AMBIEN 10 MG TAB 823100 ZOLPIDEM TARTRATE Inactive POTASSIUM CHLORIDE CHELA ER 20 MEQ CR-TABS 1 tab PO daily POTASSIUM CHLORIDE CHELA ER 20 MEQ CR-TABS POTASSIUM CHLORIDE CHELA CR Inactive MIRALAX POWD 17 gms in 4 oz water or juice daily MIRALAX POWD 048978 POLYETHYLENE GLYCOL 3350 Inactive CVS VITAMIN C 500 MG TABS 1 po daily CVS VITAMIN C 500 MG TABS 182009 ASCORBIC ACID Inactive COZAAR 100 MG TABS 1 qd COZAAR 100 MG TABS 184866 LOSARTAN POTASSIUM Inactive ALLOPURINOL 300 MG TABS 1 qd ALLOPURINOL 300 MG TABS 776917 ALLOPURINOL Inactive BUDEPRION SR 150 MG [id number] 1 bid BUDEPRION SR 150 MG [id number] BUPROPION HCL Inactive DILANTIN 100 MG CAPS 3 cap tid DILANTIN 100 MG CAPS 431426 PHENYTOIN SODIUM EXTENDED Inactive HYDROCODONE-ACETAMINOPHEN 7.5-325 MG TABS 1 q 6 hrs prn HYDROCODONE-ACETAMINOPHEN 7.5-325 MG TABS 214784 HYDROCODONE- ACETAMINOPHEN Inactive GABAPENTIN 300 MG CAPS 1 CAP PO TID GABAPENTIN 300 MG CAPS 631441 GABAPENTIN Inactive GABAPENTIN 400 MG ORAL CAPS 1 TAB BY MOUTH THREE TIMES DAILY 2015 GABAPENTIN 400 MG ORAL CAPS 811978 GABAPENTIN Inactive METOPROLOL TARTRATE 50 MG ORAL TABS 1 TAB BY MOUTH TWICE DAILY METOPROLOL TARTRATE 50 MG ORAL TABS 824871 METOPROLOL TARTRATE Inactive ZYLOPRIM 300 MG TAB 1 BY MOUTH DAILY ZYLOPRIM 300 MG TAB 222147 ALLOPURINOL Inactive MECLIZINE HCL 25 MG CHEW TAB 1 four times a day as needed for dizziness 02/21 MECLIZINE HCL 25 MG CHEW TAB 206598 MECLIZINE HCL Inactive ATIVAN 0.5 MG TABS Take 1 tablet 2x daily PRN ATIVAN 0.5 MG TABS 139267 LORAZEPAM Inactive CELEXA 20 MG TABS Take 1 tablet 1x daily CELEXA 20 MG TABS 280627 CITALOPRAM HYDROBROMIDE Inactive ULORIC 40 MG ORAL TABS 1 daily for gout. ULORIC 40 MG ORAL TABS FEBUXOSTAT Inactive BUPROPION HCL ER (SR) 150 MG [id number] 1 twice a day for depression BUPROPION HCL ER (SR) 150 MG [id number] BUPROPION HCL Inactive MULTIVITAMINS CAPS 1 DAILY MULTIVITAMINS CAPS MULTIPLE VITAMIN Inactive NORCO 5-325 MG TABS 1-2 TAB Q 6 HRS PRN NORCO 5-325 MG TABS 970791 HYDROCODONE-ACETAMINOPHEN Inactive PHENYTOIN 50 MG CHEW 1 TAB PO BID PHENYTOIN 50 MG CHEW 8225596 PHENYTOIN Inactive FENTANYL 12 MCG/HR PT72 Apply to clean, dry skin and change every 72 hours FENTANYL 12 MCG/HR PT72 632728 FENTANYL Inactive FENTANYL 25 MCG/HR PT72 Apply to clean skin and change every 72 hours. 07/03 FENTANYL 25 MCG/HR PT72 333227 FENTANYL Inactive Advance Directives Directive Description Start Date ADVANCE DIRECTIVE Immunizations Vaccine Administration Date Value Standard Description influenza immunization (Flu Vax) has been administered Influenza - Unspecified Formulation [CVX88] influenza virus vaccine, unspecified formulation pneumococcal immunization administered Pneumovax 23 [CVX33] pneumococcal polysaccharide vaccine, 23 valent Vital Signs Date Name Value Unit Range Description blood pressure, diastolic - 8462-4 84 mm[Hg] BP augustin blood pressure, systolic - 8480-6 126 mm[Hg] BP sys pulse rate E&M - 8867-4 87 /min Heart rate temperature E&M 98.6 [degF] Body temperature weight E&M - 3141-9 338 [lb_av] Weight Measured blood pressure, diastolic - 8462-4 72 mm[Hg] BP augustin blood pressure, systolic - 8480-6 130 mm[Hg] BP sys pulse rate E&M - 8867-4 88 /min Heart rate respiratory rate E&M - 9279-1 20 /min Resp rate temperature E&M 99.0 [degF] Body temperature weight E&M - 3141-9 338 [lb_av] Weight Measured blood pressure, diastolic - 8462-4 77 mm[Hg] BP augustin blood pressure, systolic - 8480-6 142 mm[Hg] BP sys pulse rate E&M - 8867-4 89 /min Heart rate respiratory rate E&M - 9279-1 22 /min Resp rate temperature E&M 99.2 [degF] Body temperature weight E&M - 3141-9 334 [lb_av] Weight Measured blood pressure, diastolic, supine 88 mm[Hg] BP augustin blood pressure, systolic, supine E&M 129 mm[Hg] BP sys pulse rate E&M - 8867-4 94 /min Heart rate respiratory rate E&M - 9279-1 20 /min Resp rate temperature E&M 98.7 [degF] Body temperature blood pressure, diastolic - 8462-4 71 mm[Hg] BP augustin blood pressure, systolic - 8480-6 132 mm[Hg] BP sys pulse rate E&M - 8867-4 88 /min Heart rate respiratory rate E&M - 9279-1 22 /min Resp rate temperature E&M 98.7 [degF] Body temperature weight E&M - 3141-9 353 [lb_av] Weight Measured blood pressure, diastolic - 8462-4 55 mm[Hg] BP augustin blood pressure, systolic - 8480-6 108 mm[Hg] BP sys pulse rate E&M - 8867-4 85 /min Heart rate temperature E&M 98.6 [degF] Body temperature weight E&M - 3141-9 339 [lb_av] Weight Measured blood pressure, diastolic - 8462-4 75 mm[Hg] BP augustin blood pressure, systolic - 8480-6 129 mm[Hg] BP sys pulse rate E&M - 8867-4 84 /min Heart rate temperature E&M 98.3 [degF] Body temperature blood pressure, diastolic - 8462-4 66 mm[Hg] BP augustin blood pressure, systolic - 8480-6 110 mm[Hg] BP sys pulse rate E&M - 8867-4 20 /min Heart rate respiratory rate E&M - 9279-1 18 /min Resp rate temperature E&M 97.8 [degF] Body temperature weight E&M - 3141-9 343 [lb_av] Weight Measured blood pressure, diastolic - 8462-4 81 mm[Hg] BP augustin blood pressure, systolic - 8480-6 136 mm[Hg] BP sys pulse rate E&M - 8867-4 83 /min Heart rate respiratory rate E&M - 9279-1 17 /min Resp rate temperature E&M 97.0 [degF] Body temperature blood pressure, diastolic - 8462-4 78 mm[Hg] BP augustin blood pressure, systolic - 8480-6 144 mm[Hg] BP sys pulse rate E&M - 8867-4 86 /min Heart rate respiratory rate E&M - 9279-1 20 /min Resp rate temperature E&M 97.5 [degF] Body temperature weight E&M - 3141-9 385 [lb_av] Weight Measured blood pressure, diastolic - 8462-4 79 mm[Hg] BP augustin blood pressure, systolic - 8480-6 152 mm[Hg] BP sys pulse rate E&M - 8867-4 84 /min Heart rate respiratory rate E&M - 9279-1 24 /min Resp rate temperature E&M 98.7 [degF] Body temperature weight E&M - 3141-9 397 [lb_av] Weight Measured Diagnostic Results Date Name Value Unit Range Description Chart Maintenance: Outside labs entered on flowsheet - Chemistry alanine aminotransferase (SGPT), serum 23 U/L alkaline phosphatase, serum 40 U/L sodium, serum 139 mmol/L potassium, serum 4.8 mmol/L blood glucose 239 mg/dL creatinine, serum 1.17 mg/dL aspartate aminotransferase (SGOT), serum 14 U/L creatinine, serum 1.26 mg/dL blood glucose 190 mg/dL potassium, serum 4.1 mmol/L sodium, serum 139 mmol/L Office Visit: NEED DABETIC SHOES - Chemistry cholesterol, target level 200 mg/dL triglyceride, target level 200 mg/dL HDL cholesterol, serum, target level 35 mg/dL LDL target level 100 mg/dL home glucose monitor utilized Yes Encounters Code Encounter Date Provider Facility CPT-02504 Level 4 Est. Patient 10:04:48 GUEST SERVICE SUPERVISOR Jonel Hemphill MD [facility] CPT-92916 Level 3 Est. Patient 19:05:03 CDT Jonel Hemphill MD [facility] CPT-25968 Level 3 Est. Patient 17:30:47 CDT Kevin Link MD [facility] CPT-10022 Level 3 Est. Patient 18:04:07 CDT Jonel Hemphill MD [facility] CPT-26465 Level 3 Est. Patient 17:18:03 CDT Jonel Hemphill MD [facility] CPT-38335 Level 3 Est. Patient 21:58:03 GUEST SERVICE SUPERVISOR Jonel Hemphill MD [facility] CPT-93759 Level 4 Est. Patient 18:03:14 CDT Jonel Yeager [facility]-48515 Level 4 Est. Patient 13:24:53 CDT Jonel Yeager [facility]-20042 Level 4 Est. Patient 09:15:44 CDT Jonel Yeager [facility]-56605 Level 4 Est. Patient 19:16:01 CDT Jonel Yeager [facility] CPT-41157 Level 4 Est. Patient 11:25:16 CDT Jonel Hemphill MD [facility] CPT-69349 Level 4 Est. Patient 09:00:40 CDT Jonel Yeager [facility]-68446 Level 4 Est. Patient 14:53:58 CDT Jonel Hemphill MD [facility] CPT-89581 Level 4 Est. Patient 22:59:01 CDT Jonel Hemphill MD [facility]-52386 Level 4 Est. Patient 09:29:57 CDT Jonel Hemphill MD [facility]-60801 Level 4 Est. Patient 12:35:53 GUEST SERVICE SUPERVISOR Jonel Hemphill MD [facility]-53017 Level 4 Est. Patient 22:36:09 GUEST SERVICE SUPERVISOR Jonel Hemphill MD [facility]-12831 Level 2 Est. Patient 15:14:15 GUEST SERVICE SUPERVISOR Mayco Shah APRN [facility] CPT-51861 Level 4 Est. Patient 10:36:22 GUEST SERVICE SUPERVISOR Jonel Hemphill MD [facility] CPT-96548 Level 4 Est. Patient 22:01:13 GUEST SERVICE SUPERVISOR Jonel Hemphill MD [facility]-46228 Level 3 Est. Patient 21:50:37 GUEST SERVICE SUPERVISOR Jonel Hemphill MD [facility] CPT-06608 Level 4 Est. Patient 15:02:43 CDT Rubin Pierre MD [facility] CPT-05720 Level 4 Est. Patient 14:27:35 CDT Jonel Hemphill MD [facility]-15577 Level 4 Est. Patient 12:41:17 CDT Jonel Hemphill MD [facility]-83527 Level 4 Est. Patient 16:18:55 CDT Jonel Hemphill MD [facility]-12763 Level 4 Est. Patient 17:58:05 CDT Jonel Hemphill MD [facility]-01012 Level 4 Est. Patient 22:10:06 CDT Jonel Hemphill MD [facility]-64980 Level 4 Est. Patient 13:22:09 CDT Jonel Hemphill MD [facility]-83170 Level 4 Est. Patient 22:52:17 GUEST SERVICE SUPERVISOR Jonel Hemphill MD [facility] CPT-56407 Level 3 Est. Patient 22:34:10 GUEST SERVICE SUPERVISOR Jonel Hemphill MD [facility] CPT-46531 Level 4 Est. Patient 07:49:20 GUEST SERVICE SUPERVISOR Jonel Hemphill MD [facility] Skilled CPT-51064 Level 3 Est. Patient 08:28:27 GUEST SERVICE SUPERVISOR Jonel Hemphill MD [facility] Procedures Code Procedure Name Date Entry Date Standard Description CPT-78518 Level 3 Group Home 21:14:15 GUEST SERVICE SUPERVISOR CPT-24620 Level 3 Group Home 15:38:24 CDT CPT-57951 Level 3 Group Home 08:18:30 CDT CPT-94599 Level 3 Group Home 19:03:14 CDT CPT-83495 Level 3 Group Home 17:42:11 CDT CPT-01284 Level 3 Group Home 16:04:10 CDT CPT-79951 Level 3 Group Home 19:38:15 GUEST SERVICE SUPERVISOR CPT-18462 Level 3 Group Home 19:28:48 GUEST SERVICE SUPERVISOR CPT-90535 Level 3 Group Home 18:02:20 GUEST SERVICE SUPERVISOR CPT-22248 Level 3 Group Home 15:02:14 GUEST SERVICE SUPERVISOR CPT-18493 Level 3 Group Home 12:25:37 CDT CPT-95377 Level 3 Group Home 12:48:39 CDT CPT-31740 Level 3 Group Home 17:39:14 CDT CPT-08505 Level 3 Group Home 13:32:58 CDT CPT-86407 Level 3 Group Home 17:43:43 CDT CPT-13327 Level 3 Group Home 12:03:33 GUEST SERVICE SUPERVISOR CPT-56812 Level 3 Group Home 18:47:28 GUEST SERVICE SUPERVISOR CPT-57015 Level 3 Group Home 17:35:26 GUEST SERVICE SUPERVISOR CPT-46756 Level 3 Group Home 18:44:49 GUEST SERVICE SUPERVISOR CPT-20204 Level 3 Group Home 18:17:33 CDT CPT-40946 Level 3 Group Home 09:25:33 CDT CPT-09758 Level 3 Group Home 19:11:57 CDT CPT-49203 Level 3 Group Home 09:25:52 CDT CPT-26483 Level 3 Group Home 14:23:59 CDT CPT-08222 Level 3 Group Home 12:09:43 CDT CPT-33647 Level 3 Group Home 09:37:40 CDT CPT-66465 Level 3 Group Home 18:23:02 CDT CPT-22854 Level 3 Group Home 14:09:06 CDT CPT-75466 Level 3 Group Home 12:43:27 GUEST SERVICE SUPERVISOR CPT-96513 Postop F/U Visit 14:10:15 GUEST SERVICE SUPERVISOR CPT-22395 [facility] Head and Neck 17:07:14 GUEST SERVICE SUPERVISOR CPT-24888 Level 3 Group Home 16:14:37 GUEST SERVICE SUPERVISOR CPT-62473 Port a cath flush 11:47:42 CDT CPT-55253 Port a cath flush 08:29:49 CDT CPT-OV Office Visit 14:27:58 GUEST SERVICE SUPERVISOR
--- OUTSIDE RECORDS SUMMARY | 2016-08-07 10:38 | XMS REPORT ---
Author Author [email or web address] Medical Staff Organization [facility] Address [address], [place] [id number] Phone [phone] Care Team Providers Care Welder Repair Name Role Phone FRANKO HEMPHILL MD PP [phone] Summary purpose TRANSITION OF CARE AUTO GENERATION Chief Complaint and Reason for Visit No authorized Reason for Visit (Admitting Diagnosis) is available for this visit. Problem list No authorized problems tracked for continuity of care are available for this visit. Encounters No authorized problems tracked for encounter diagnoses are available for this visit. Medications No medications recorded for this patient visit Allergies, adverse reactions, alerts Allergen Category Ingredient Status Reaction Severity Onset Penicillins Drug Allergy Penicillins Confirmed or Verified Immunizations No immunizations recorded for this patient visit Relevant diagnostic tests and/or laboratory data RESULTS Radiology Results [id number] Ankle 3 View PACs Image DATE OF EXAM: Aug 25 2015 RAD 0094-ANKLE 3 VIEW- RIGHT: RADIOLOGY REPORT DATE OF SERVICE: 08/25/15 HISTORY: Fall with injury to right ankle. RIGHT ANKLE 3 VIEWS 0025 HOURS There is no fracture. The malleoli are intact. There is mild degenerative irregularity along the lateral and medial margins of the talus. The talar dome is smooth. There is soft tissue swelling about the distal leg and ankle. IMPRESSION: Degenerative changes in the ankle. No acute bony abnormality. MD ALTHEA Morales/nv08/25/2015 08:15:00 / 08/25/2015 08:34:20 cc:Dr. Franko Hemphill This document has been electronically Signed by: On: DATE OF EXAM: Aug 25 2015 RAD 0094-ANKLE 3 VIEW- RIGHT: RADIOLOGY REPORT DATE OF SERVICE: 08/25/15 HISTORY: Fall with injury to right ankle. RIGHT ANKLE 3 VIEWS 0025 HOURS There is no fracture. The malleoli are intact. There is mild degenerative irregularity along the lateral and medial margins of the talus. The talar dome is smooth. There is soft tissue swelling about the distal leg and ankle. IMPRESSION: Degenerative changes in the ankle. No acute bony abnormality. MD ALTHEA Morales/crista08/25/2015 08:15:00 / 08/25/2015 08:34:20 cc:Dr. Franko Hemphill This document has been electronically Signed by: MANPREET NICHOLS MD On: Aug 24:20A Result Amended on 2015-08-25 at 09:20:18. Previous status was ID. Thoracic Spine - 3 View PACs Image DATE OF EXAM: Aug 25 2015 RAD 0425-THORACIC SPINE-3 VIEW : RADIOLOGY REPORT DATE OF SERVICE: 08/25/15 HISTORY: Back pain, status post fall THORACIC SPINE 3 VIEWS 0035 HOURS The lower thoracic vertebrae are not included on the lateral view. They appear normal in height on the AP view. There are severe degenerative disc changes throughout the thoracic spine with disc narrowing and marginal osteophytes. No definite fractures are seen. IMPRESSION: Suboptimal study. Severe degenerative disc changes. No definite acute abnormality. MD ALTHEA Morales/crista08/25/2015 08:17:00 / 08/25/2015 08:35:09 cc:Dr. Franko Hemphill This document has been electronically Signed by: On: DATE OF EXAM: Aug 25 2015 RAD 0425-THORACIC SPINE-3 VIEW : RADIOLOGY REPORT DATE OF SERVICE: 08/25/15 HISTORY: Back pain, status post fall THORACIC SPINE 3 VIEWS 0035 HOURS The lower thoracic vertebrae are not included on the lateral view. They appear normal in height on the AP view. There are severe degenerative disc changes throughout the thoracic spine with disc narrowing and marginal osteophytes. No definite fractures are seen. IMPRESSION: Suboptimal study. Severe degenerative disc changes. No definite acute abnormality. MD ALTHEA Morales/crista08/25/2015 08:17:00 / 08/25/2015 08:35:09 cc:Dr. Franko Hemphill This document has been electronically Signed by: MANPREET NICHOLS MD On: Aug 24:20A Result Amended on 2015-08-25 at 09:20:19. Previous status was ID. History of procedures No procedures recorded for this patient visit. Functional status Functional Status Finding Observation Time Muscle Strength RLE 5 ROM full resist :15 Abdomen Appearance obese :15 Abdomen soft :15 Wagner no :15 Urination normal :15 Quality sym/unlabored :15 Cough absent :15 Secretions no :15 Airway natural :15 Chest Tube no :15 Oxygen no :19 Temp >100.4 no :15 Temp <96.8 no :15 Chills with rigors no :15 HR > 90bpm yes :15 Respirations > 20 no :15 Systolic <90 no :15 headache stiff neck no :15 Nursing Note Discharge instructions reviewed with pt-verbalized understanding. VS obtained-dc in good condition :19 Vital signs Type Value Date Respiration Rate 20breaths per minute :19 Pulse 89beats per minute :19 Oxygen Saturation 97% :19 BP Systolic 116mmHg :19 BP Diastolic 56mmHg :19 Temperature 98.7F :19 Social history Type Value Smoking Status FORMER SMOKER Treatment Plan No treatment plan text is available for this visit. Hospital discharge instructions Dismissal Condition good Disposition on DC home DC Inst/Educ Give yes Med/Side Effects Rev yes Flu Vac 2014
--- OUTSIDE RECORDS SUMMARY | 2016-08-07 10:39 | XMS REPORT | Clinical Summary ---
Author Author Admin, KARLAE Organization [facility] Address Unknown Phone Unavailable Allergies, Adverse Reactions, Alerts Allergy Name Reaction Description Start Date Severity Status Provider PENICILLIN Critical Active Tulsajaida Giles RMA Conditions or Problems Problem Name Problem Code Onset Date Status Entry Date Provider Comment Standard Description Annotate DIABETES MELLITUS, TYPE II, CONTROLLED 250.00 Active Jonel Hemphill MD Diabetes mellitus without mention of complication, type II or unspecified type, not stated as uncontrolled MORBID OBESITY 278.01 Active Jonel Hemphill MD Morbid obesity HYPERTENSION 401.1 Active Jonel Hemphill MD Benign essential hypertension 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 USE, PRESS CLIPPINGS CUTTER AND PASTER V58.69 Resolved Jonel Hemphill MD Long-term (current) use of other medications C V A / STROKE 436 Active Gregor Giles RMA Acute, but ill-defined, cerebrovascular disease C [...] Coronary atherosclerosis of unspecified type of vessel, [place] or graft FH DIABETES V18.0 Resolved Jonel Hemphill MD Family history of diabetes mellitus FH STROKE V17.1 Resolved Jonel Hemphill MD Family history of stroke (cerebrovascular) FAMILY HISTORY COLON CANCER-MOTHER V16.0 Resolved Jonel Hemphill MD Family history of malignant neoplasm of gastrointestinal tract VENOUS INSUFFICIENCY 459.81 Resolved Jonel Hemphill MD Venous (peripheral) insufficiency, unspecified SLEEP APNEA 780.57 Active Jonel Hemphill MD Unspecified sleep apnea PERIPHERAL NEUROPATHY 356.9 Active Jonel Hemphill MD Unspecified hereditary and idiopathic peripheral neuropathy LYMPHEDEMA 457.1 Active Jonel Hemphill MD Other lymphedema DIABETIC ULCER, LEG 707.10 Resolved Jonel Hemphill MD Ulcer of lower limb, unspecified SLEEP APNEA 780.57 Active Jonel Hemphill MD Unspecified sleep apnea CELLULITIS, LEG, RIGHT 682.6 Resolved Jonel Hemphill MD Cellulitis and abscess of leg, except foot CALLUS, RIGHT FOOT 700 Resolved Jonel Hemphill MD Corns and callosities CHEST PAIN 786.50 Resolved Jonel Hemphill MD Unspecified chest pain C A D 414.00 Active Jonel Hemphill MD Coronary atherosclerosis of unspecified type of vessel, [place] or graft CONSTIPATION 564.00 Resolved Jonel Hemphill [...] MD Acute bronchitis Foot pain, right 729.5 Active Jonel Hemphill MD Pain in limb Tinea corporis 110.5 Active Jonel Hemphill MD Dermatophytosis of the body Cellulitis, leg, right 682.6 Inactive Jonel Hemphill MD Cellulitis and abscess of leg, except foot Flank pain, right 789.09 Inactive Jonel Hemphill MD Abdominal pain, other specified site; multiple sites Eye pain 379.91 Active Jonel Hemphill MD Pain in or around eye Fever 780.60 Active Jonel Hemphill MD Fever, unspecified Chest pain 786.50 Active Jonel Hemphill MD Unspecified chest pain Hip pain, right 719.45 Active Jonel Hemphill MD Pain in joint involving pelvic region and thigh Bronchitis-Acute 466.0 Active Jonel Hemphill MD Acute bronchitis Cellulitis, leg, right 682.6 Active Jonel Hemphill MD Cellulitis and abscess of leg, except foot DIABETES, TYPE 2 ICD-250.00 Inactive Jonel Hemphill MD CORONARY HEART DISEASE ICD-414.00 Inactive Jonel Hemphill MD FH DIABETES ICD-V18.0 Inactive Jonel Hemphill MD FH STROKE ICD-V17.1 Inactive Jonel Hemphill MD FAMILY HISTORY COLON CANCER-MOTHER ICD-V16.0 Inactive Jonel Hemphill MD VENOUS INSUFFICIENCY ICD-459.81 Inactive Jonel Hemphill MD DIABETIC ULCER, LEG ICD-707.10 Inactive Jonel Hemphill MD CELLULITIS, LEG, RIGHT [...] STRAIN, RIGHT ICD-840.9 Inactive Jonel Hemphill MD 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 USE, RESIDENTIAL ICD-V58.69 Inactive Jonel Hemphill MD TREMOR ICD-781.0 Inactive [...] Inactive Jonel Hemphill MD Dysuria ICD-788.1 Inactive oJnel Hemphill MD 2013 Other malaise and fatigue ICD-780.79 Inactive Jonel Hemphill MD Malaise and fatigue ICD-780.79 Inactive Jonel Hemphill MD Nightmares ICD-307.47 Inactive Jonel Hemphill MD Bronchitis-Acute ICD-466.0 Inactive Jonel Hemphill MD Cellulitis, leg, right ICD-682.6 Inactive Jonel Hemphill MD Flank pain, right ICD-789.09 Inactive Jonel Hemphill MD Medication List Medication Instructions Start Date Stop Date Generic Name NDC Status Provider Patient Instruction HYDROCODONE-ACETAMINOPHEN 7.5-325 MG TABS 1 TAB PO Q 6 HRS PRN HYDROCODONE-ACETAMINOPHEN 33411773017 Active Jonel Hemphill MD Active METFORMIN HCL 1000 MG TABS 1 tablet by mouth twice daily METFORMIN HCL 62821588015 Active Marleni Romero Active FENTANYL 12 MCG/HR PT72 Apply to clean, dry skin and change every 72 hours FENTANYL 54219942237 Active Sharon Downs APRN Active KLOR-CON 20 MEQ ORAL PACK 1 BY MOUTH DAILY POTASSIUM CHLORIDE 87099633040 Active Marleni Romero Active A+D FIRST AID EXT OINT APPLY OINTMENT AND RUFINO WRAPS TO LOWER EXTEREMETIES DAILY SKIN PROTECTANTS, MISC. 98325178220 Active Jonel Hemphill MD Active NYSTATIN 172855 UNIT/GM EXT OINT APPLY PRN TID TO GAULDING/RASH IN ABDOMINAL FOLDS NYSTATIN 24454484190 Active Jonel Hemphill MD Active ATIVAN 0.5 MG TABS Take 1 tablet 2x daily PRN LORAZEPAM 89297394480 Active Jonel Hemphill MD Active GABAPENTIN 400 MG ORAL CAPS 1 TAB BY MOUTH THREE TIMES DAILY GABAPENTIN 08684033671 Active Jonel Hemphill MD Active GABAPENTIN 300 MG CAPS 1 CAP PO TID GABAPENTIN 51968062584 No Longer Active Jonel Hemphill MD Active DILANTIN 100 MG ORAL CAPS 1 THREE TIMES DAILY FOR SEIZURES PHENYTOIN SODIUM EXTENDED 21971831750 Active Marleni Romero Active CPAP APPLY AT HS CPAP Active Jonel Hemphill MD Active METOPROLOL TARTRATE 50 MG ORAL TABS 1 TAB BY MOUTH TWICE DAILY METOPROLOL TARTRATE 93473481712 Active Jonel Hemphill MD Active LISINOPRIL 40 MG TABS 1 tablet by mouth twice daily, for blood pressure 03/31 LISINOPRIL 87141294462 Active Jonel Hemphill MD Active BUPROPION HCL ER (SR) 150 MG [id number] 1 twice a day for depression BUPROPION HCL 75123068507 Active Jonel Hemphill MD Active MULTIVITAMINS CAPS 1 DAILY MULTIPLE VITAMIN 23592789808 Active Jonel Hemphill MD Active ZYLOPRIM 300 MG TAB 1 BY MOUTH DAILY ALLOPURINOL 79656543152 Active Jonel Hemphill MD Active HYDROCODONE-ACETAMINOPHEN 7.5-325 MG TABS 1 q 6 hrs prn HYDROCODONE-ACETAMINOPHEN 68938511895 No Longer Active Jonel Hemphill MD Active DILANTIN 100 MG CAPS 3 cap tid PHENYTOIN SODIUM EXTENDED 93981812320 No Longer Active Jonel Hemphill MD Active BUDEPRION SR 150 MG [id number] 1 bid BUPROPION HCL 65810622989 No Longer Active Jonel Hemphill MD Active ALLOPURINOL 300 MG TABS 1 qd ALLOPURINOL 08640583962 No Longer Active Jonel Hemphill MD Active COZAAR 100 MG TABS 1 qd LOSARTAN POTASSIUM 93317538853 No Longer Active Jonel Hemphill MD Active CVS VITAMIN C 500 MG TABS 1 po daily ASCORBIC ACID 52002543911 No Longer Active Jonel Hemphill MD Active MIRALAX POWD 17 gms in 4 oz water or juice daily POLYETHYLENE GLYCOL 3350 64860608502 No Longer Active Jonel Hemphill MD Active POTASSIUM CHLORIDE CHELA ER 20 MEQ CR-TABS 1 tab PO daily POTASSIUM CHLORIDE CHELA CR 28667587597 No Longer Active Jonel Hemphill MD Active AMBIEN 10 MG TAB 1 tab by mouth at bedtime as needed for sleep ZOLPIDEM TARTRATE 44931866226 No Longer Active Jonel Hemphill MD Active SULFAMETHOXAZOLE-TMP DS 800-160 MG TABS 1 TAB PO BID SULFAMETHOXAZOLE-TRIMETHOPRIM 68096396991 No Longer Active Jonel Hemphill MD Active NORCO 5-325 MG TABS 1-2 TAB Q 6 HRS PRN HYDROCODONE- ACETAMINOPHEN 03679091669 Active Jonel Hemphill MD Active LEVEMIR 100 UNIT/ML SOLN 5 units sub-q at bedtime INSULIN DETEMIR 03828222251 No Longer Active Tova Perez Active MOBIC 15 MG TABS 1 tab PO daily for arthritis pain MELOXICAM 66242032899 No Longer Active Tova Perez Active GLUCAGEN 1 MG SOLR INJECT 1MG IM IF BS LESS THAN 60 & RES. IS UNABLE TO SWALLOW GLUCAGON HCL (RDNA) 05039158793 No Longer Active Tova Perez Active CVS MILK OF MAGNESIA 1200 MG/15ML SUSP 30 ml daily for constipation MAGNESIUM HYDROXIDE 83687265914 No Longer Active Tova Perez Active IMDUR 120 MG [id number] 1 qd ISOSORBIDE MONONITRATE 40553079156 No Longer Active Tova Chris Active PHENYTOIN 50 MG CHEW 1 TAB PO BID PHENYTOIN 35243577033 Active Tova Chris Active MECLIZINE HCL 25 MG CHEW TAB 1 four times a day as needed for dizziness 02/21 MECLIZINE HCL 19157426282 Active Tova Chris Active NEURONTIN 400 MG CAPS Take one by mouth 3 times daily, morning, afternoon and evening.] GABAPENTIN 29984252691 No Longer Active Tova Chris Active ANTIVERT 25 MG TABS 1 q 6 hrs prn MECLIZINE HCL 90107228041 No Longer Active Jonel Hemphill MD Active CLONIDINE HCL 0.2 MG TABS 1 q 8 hrs as needed -greater than 160-htn CLONIDINE HCL 75229197885 No Longer Active Jonel Hemphill MD Active AMBIEN 10 MG TABS 1 q hs prn ZOLPIDEM TARTRATE 65287051728 No Longer Active Jonel Hemphill MD Active GNP THERAPEUTIC-M TABS 1 qd MULTIPLE VITAMINS- MINERALS 37615766405 No Longer Active Jonel Hemphill MD Active METOPROLOL TARTRATE 50 MG TABS 1 bid METOPROLOL TARTRATE 51899658059 No Longer Active Jonel Hemphill MD Active METFORMIN HCL 500 MG TABS 1 bod with food METFORMIN HCL 80563581878 No Longer Active Jonel Hemphill MD Active LISINOPRIL 40 MG TABS 1 qd LISINOPRIL 58261818103 No Longer Active Jonel Hemphill MD Active HYDROCHLOROTHIAZIDE 25 MG TABS 1 qd HYDROCHLOROTHIAZIDE 76085573375 No Longer Active Jonel Hemphill MD Active DURAGESIC-25 25 MCG/HR PT72 place 1 patch on the skin q72hrs for pain FENTANYL 75188861545 No Longer Active Jonel Hemphill MD Active FENTANYL 75 MCG/HR PT72 place 1 patch on skin q72hrs fr pain 2012 FENTANYL 33878180389 No Longer Active Jonel Hemphill MD Active LASIX 20 MG TABS 1 tab PO q morning FUROSEMIDE 33008942726 Active Jonel Hemphill MD Active FUROSEMIDE 40 MG TABS 1 q am FUROSEMIDE 81247698404 No Longer Active Jonel Hemphill MD Active HEPARIN (PORCINE) LOCK FLUSH 100 UNIT/ML SOLN Flush port a cath monthly every three week on with Heparin and NS HEPARIN LOCK FLUSH 19691669387 Active Jonel Hemphill MD Active FENTANYL 100 MCG/HR PT72 Apply every 3 days FENTANYL 71617940109 Active Jonel Hemphill MD Active FENTANYL 25 MCG/HR PT72 Apply to clean skin and change every 72 hours. 07/03 FENTANYL 42020746565 No Longer Active Jonel Hemphill MD Active FENTANYL 50 MCG/HR PT72 place 1 patch on skin q72 hours FENTANYL 49955796742 No Longer Active Mayco Shah APRN Active CELEXA 20 MG TABS Take 1 tablet 1x daily CITALOPRAM HYDROBROMIDE 20749981984 Active Jonel Hemphill MD Active DURAGESIC-12 12 MCG/HR PT72 APPLY PATCH TO SKIN AND CHANGE EVERY 72 HOURS, ROTATE SITES FENTANYL 24664116101 No Longer Active Fozia YANGA Active FUROSEMIDE 20 MG TABS 1 qd FUROSEMIDE 41411887260 No Longer Active Mahogany Benton Active ADULT ASPIRIN EC LOW STRENGTH 81 MG TBEC 1 qd ASPIRIN 19081235100 Active MARY Perez Active FUROSEMIDE 20 MG TABS 1 qd FUROSEMIDE 20 MG TABS 130414 FUROSEMIDE Inactive DURAGESIC-12 12 MCG/HR PT72 APPLY PATCH TO SKIN AND CHANGE EVERY 72 HOURS, ROTATE SITES DURAGESIC-12 12 MCG/HR PT72 258634 FENTANYL Inactive FENTANYL 50 MCG/HR PT72 place 1 patch on skin q72 hours FENTANYL 50 MCG/HR PT72 056435 FENTANYL Inactive FUROSEMIDE 40 MG TABS 1 q am FUROSEMIDE 40 MG TABS 627679 FUROSEMIDE Inactive FENTANYL 75 MCG/HR PT72 place 1 patch on skin q72hrs fr pain 2012 FENTANYL 75 MCG/HR PT72 009038 FENTANYL Inactive DURAGESIC-25 25 MCG/HR PT72 place 1 patch on the skin q72hrs for pain DURAGESIC-25 25 MCG/HR PT72 289833 FENTANYL Inactive HYDROCHLOROTHIAZIDE 25 MG TABS 1 qd HYDROCHLOROTHIAZIDE 25 MG TABS 072159 HYDROCHLOROTHIAZIDE Inactive LISINOPRIL 40 MG TABS 1 qd LISINOPRIL 40 MG TABS 902435 LISINOPRIL Inactive METFORMIN HCL 500 MG TABS 1 bod with food METFORMIN HCL 500 MG TABS 782831 METFORMIN HCL Inactive METOPROLOL TARTRATE 50 MG TABS 1 bid METOPROLOL TARTRATE 50 MG TABS 847946 METOPROLOL TARTRATE Inactive GNP THERAPEUTIC-M TABS 1 qd GNP THERAPEUTIC-M TABS MULTIPLE VITAMINS-MINERALS Inactive AMBIEN 10 MG TABS 1 q hs prn AMBIEN 10 MG TABS 799587 ZOLPIDEM TARTRATE Inactive CLONIDINE HCL 0.2 MG TABS 1 q 8 hrs as needed -greater than 160-htn CLONIDINE HCL 0.2 MG TABS 159155 CLONIDINE HCL Inactive ANTIVERT 25 MG TABS 1 q 6 hrs prn ANTIVERT 25 MG TABS MECLIZINE HCL Inactive NEURONTIN 400 MG CAPS Take one by mouth 3 times daily, morning, afternoon and evening.] NEURONTIN 400 MG CAPS 259181 GABAPENTIN Inactive IMDUR 120 MG [id number] 1 qd IMDUR 120 MG [id number] ISOSORBIDE MONONITRATE Inactive CVS MILK OF MAGNESIA [...] for arthritis pain MOBIC 15 MG TABS 063101 MELOXICAM Inactive LEVEMIR 100 UNIT/ML SOLN 5 units sub-q at bedtime LEVEMIR 100 UNIT/ML SOLN INSULIN DETEMIR Inactive SULFAMETHOXAZOLE-TMP DS 800-160 MG TABS 1 TAB PO BID SULFAMETHOXAZOLE-TMP DS 800-160 MG TABS 295961 SULFAMETHOXAZOLE-TRIMETHOPRIM Inactive AMBIEN 10 MG TAB 1 tab by mouth at bedtime as needed for sleep AMBIEN 10 MG TAB 212639 ZOLPIDEM TARTRATE Inactive POTASSIUM CHLORIDE CHELA ER 20 MEQ CR-TABS 1 tab PO daily POTASSIUM CHLORIDE CHELA ER 20 MEQ CR-TABS POTASSIUM CHLORIDE CHELA CR Inactive MIRALAX POWD 17 gms in 4 oz water or juice daily MIRALAX POWD 278249 POLYETHYLENE GLYCOL 3350 Inactive CVS VITAMIN C 500 MG TABS 1 po daily CVS VITAMIN C 500 MG TABS 286070 ASCORBIC ACID Inactive COZAAR 100 MG TABS 1 qd COZAAR 100 MG TABS 996937 LOSARTAN POTASSIUM Inactive ALLOPURINOL 300 MG TABS 1 qd ALLOPURINOL 300 MG TABS 782656 ALLOPURINOL Inactive BUDEPRION SR 150 MG [id number] 1 bid BUDEPRION SR 150 MG [id number] BUPROPION HCL Inactive DILANTIN 100 MG CAPS 3 cap tid DILANTIN 100 MG CAPS 091404 PHENYTOIN SODIUM EXTENDED Inactive HYDROCODONE-ACETAMINOPHEN 7.5-325 MG TABS 1 q 6 hrs prn HYDROCODONE-ACETAMINOPHEN 7.5-325 MG TABS 310964 HYDROCODONE- ACETAMINOPHEN Inactive GABAPENTIN 300 MG CAPS 1 CAP PO TID GABAPENTIN 300 MG CAPS 657356 GABAPENTIN Inactive FENTANYL 25 MCG/HR PT72 Apply to clean skin and change every 72 hours. 07/03 FENTANYL 25 MCG/HR PT72 291660 FENTANYL Inactive Advance Directives Directive Description Start Date ADVANCE DIRECTIVE Immunizations Vaccine Administration Date Value Standard Description influenza immunization (Flu Vax) has been administered Influenza - Unspecified Formulation [CVX88] influenza virus vaccine, unspecified formulation pneumococcal immunization administered Pneumovax 23 [CVX33] pneumococcal polysaccharide vaccine, 23 valent Vital Signs Date Name Value Unit Range Description blood pressure, diastolic - 8462-4 81 mm[Hg] [...] E&M - 3141-9 397 [lb_av] Weight Measured blood pressure, diastolic - 8462-4 87 mm[Hg] BP augustin blood pressure, systolic - 8480-6 175 mm[Hg] BP sys pulse rate E&M - 8867-4 81 /min Heart rate respiratory rate E&M - 9279-1 18 /min Resp rate temperature E&M 97.7 [degF] Body temperature weight E&M - 3141-9 403 [lb_av] Weight Measured blood pressure, diastolic - 8462-4 87 mm[Hg] BP augustin blood pressure, systolic - 8480-6 130 mm[Hg] BP sys pulse rate E&M - 8867-4 76 /min Heart rate respiratory rate E&M - 9279-1 20 /min Resp rate temperature E&M 97.1 [degF] Body temperature weight E&M - 3141-9 407 [lb_av] Weight Measured blood pressure, diastolic - 8462-4 86 mm[Hg] BP augustin blood pressure, systolic - 8480-6 174 mm[Hg] BP sys pulse rate E&M - 8867-4 75 /min Heart rate respiratory rate E&M - 9279-1 18 /min Resp rate temperature E&M 97.3 [degF] Body temperature weight E&M - 3141-9 395.2 [lb_av] Weight Measured blood pressure, diastolic - 8462-4 86 mm[Hg] BP augustin blood pressure, systolic - 8480-6 150 mm[Hg] BP sys pulse rate E&M - 8867-4 79 /min Heart rate respiratory rate E&M - 9279-1 20 /min Resp rate temperature E&M 98.1 [degF] Body temperature weight E&M - 3141-9 394.8 [lb_av] Weight Measured blood pressure, diastolic - 8462-4 89 mm[Hg] BP augustin blood pressure, systolic - 8480-6 160 mm[Hg] BP sys pulse rate E&M - 8867-4 73 /min Heart rate respiratory rate E&M - 9279-1 18 /min Resp rate temperature E&M 97.4 [degF] Body temperature weight E&M - 3141-9 393 [lb_av] Weight Measured blood pressure, diastolic - 8462-4 85 mm[Hg] BP augustin blood pressure, systolic - 8480-6 179 mm[Hg] BP sys pulse rate E&M - 8867-4 76 /min Heart rate respiratory rate E&M - 9279-1 18 /min Resp rate temperature E&M 96.8 [degF] Body temperature weight E&M - 3141-9 400 [lb_av] Weight Measured Diagnostic Results Date Name Value Unit Range Description Chart Maintenance: Outside labs entered on flowsheet - Chemistry sodium, serum 144 mmol/L potassium, serum 4.6 mmol/L blood glucose 187 mg/dL creatinine, serum 0.85 mg/dL aspartate aminotransferase (SGOT), serum 33 U/L alanine aminotransferase (SGPT), serum 42 U/L alkaline phosphatase, serum 60 U/L hemoglobin A1C, blood, as % of total hemoglobin 7.2 % sodium, serum 143 mmol/L potassium, serum 3.9 mmol/L blood glucose 147 mg/dL creatinine, serum 0.19 mg/dL aspartate aminotransferase (SGOT), serum 13 U/L alanine aminotransferase (SGPT), serum 13 U/L alkaline phosphatase, serum 51 U/L Chart Maintenance: Outside labs entered on flowsheet - Hematology leukocyte count, blood 6.9 10*3/mm3 hemoglobin, blood 14.4 g/dL platelet count 113 10*3/mm3 Lab Report: HGBA1C - Chemistry hemoglobin A1C, blood, as % of total hemoglobin 6.8 % 4.3-6.0 Encounters Code Encounter Date Provider Facility CPT-02035 Level 3 Est. Patient 18:04:07 CDT Jonel Hemphill MD [facility] CPT-18434 Level 3 Est. Patient 17:18:03 CDT Jonel Hemphill MD [facility] [place] Level 3 Est. Patient 21:58:03 CLINICAL NURSING ASSISTANT Jonel Hemphill MD [facility] [place]-06798 Level 4 Est. Patient 18:03:14 CDT Jonel Hemphill MD [facility]-39370 Level 4 Est. Patient 13:24:53 CDT Jonel Hemphill MD [facility]-34376 Level 4 Est. Patient 09:15:44 CDT Jonel Hemphill MD [facility]-39152 Level 4 Est. Patient 19:16:01 CDT Jonel Hemphill MD [facility]-38225 Level 4 Est. Patient 11:25:16 CDT Jonel Hemphill MD [facility] CPT-99983 Level 4 Est. Patient 09:00:40 CDT Jonel Hemphill MD [facility]-24651 Level 4 Est. Patient 14:53:58 CDT Jonel Hemphill MD [facility] [place]-45883 Level 4 Est. Patient 22:59:01 CDT Jonel Hemphill MD [facility]-63273 Level 4 Est. Patient 09:29:57 CDT Jonel Hepmhill MD [facility]-32164 Level 4 Est. Patient 12:35:53 CLINICAL NURSING ASSISTANT Jonel Hemphill MD [facility]-52463 Level 4 Est. Patient 22:36:09 CLINICAL NURSING ASSISTANT Jonel Hemphill MD [facility]-40732 Level 2 Est. Patient 15:14:15 CLINICAL NURSING ASSISTANT Mayco Shah APRN [facility] CPT-78140 Level 4 Est. Patient 10:36:22 CLINICAL NURSING ASSISTANT Jonel Hemphill MD [facility] CPT-97261 Level 4 Est. Patient 22:01:13 CLINICAL NURSING ASSISTANT Jonel Hemphill MD [facility]-43273 Level 3 Est. Patient 21:50:37 CLINICAL NURSING ASSISTANT Jonel Hemphill MD [facility] CPT-63113 Level 4 Est. Patient 15:02:43 CDT Rubin Pierre MD [facility] CPT-25985 Level 4 Est. Patient 14:27:35 CDT Jonel Hemphill MD [facility]-76898 Level 4 Est. Patient 12:41:17 CDT Jonel Hemphill MD [facility]-24006 Level 4 Est. Patient 16:18:55 CDT Jonel Hemphill MD [facility]-51790 Level 4 Est. Patient 17:58:05 CDT Jonel Hemphill MD [facility] CPT-91569 Level 4 Est. Patient 22:10:06 CDT Jonel Hemphill MD [facility]-49256 Level 4 Est. Patient 13:22:09 CDT Jonel Hemphill MD [facility]-53961 Level 4 Est. Patient 22:52:17 CLINICAL NURSING ASSISTANT Jonel Hemphill MD [facility]-05281 Level 3 Est. Patient 22:34:10 CLINICAL NURSING ASSISTANT Jonel Hemphill MD [facility] CPT-18126 Level 4 Est. Patient 07:49:20 CLINICAL NURSING ASSISTANT Jonel Hemphill MD [facility] CPT-01800 Level 3 Est. Patient 08:28:27 CLINICAL NURSING ASSISTANT Jonel Hemphill MD [facility] Procedures Code Procedure Name Date Entry Date Standard Description CPT-04656 Level 3 Retirement 16:04:10 CDT CPT-80242 Level 3 Retirement 19:38:15 CLINICAL NURSING ASSISTANT CPT-59214 Level 3 Retirement 19:28:48 CLINICAL NURSING ASSISTANT CPT-87191 Level 3 Retirement 18:02:20 CLINICAL NURSING ASSISTANT CPT-93106 Level 3 Retirement 15:02:14 CLINICAL NURSING ASSISTANT CPT-72703 Level 3 Retirement 12:25:37 CDT CPT-47598 Level 3 Retirement 12:48:39 CDT CPT-68825 Level 3 Retirement 17:39:14 CDT CPT-83589 Level 3 Retirement 13:32:58 CDT CPT-71350 Level 3 Retirement 17:43:43 CDT CPT-28471 Level 3 Retirement 12:03:33 CLINICAL NURSING ASSISTANT CPT-48974 Level 3 Retirement 18:47:28 CLINICAL NURSING ASSISTANT CPT-00019 Level 3 Retirement 17:35:26 CLINICAL NURSING ASSISTANT CPT-77214 Level 3 Retirement 18:44:49 CLINICAL NURSING ASSISTANT CPT-76411 Level 3 Retirement 18:17:33 CDT CPT-49554 Level 3 Retirement 09:25:33 CDT CPT-65834 Level 3 Retirement 19:11:57 CDT CPT-67622 Level 3 Retirement 09:25:52 CDT CPT-14120 Level 3 Retirement 14:23:59 CDT CPT-72822 Level 3 Retirement 12:09:43 CDT CPT-17093 Level 3 Retirement 09:37:40 CDT CPT-20674 Level 3 Retirement 18:23:02 CDT CPT-72615 Level 3 Retirement 14:09:06 CDT CPT-10685 Level 3 Retirement 12:43:27 CLINICAL NURSING ASSISTANT CPT-59622 Postop F/U Visit 14:10:15 CLINICAL NURSING ASSISTANT CPT-32954 [facility] 17:07:14 CLINICAL NURSING ASSISTANT CPT-10403 Level 3 Retirement 16:14:37 CLINICAL NURSING ASSISTANT CPT-47968 Port a cath flush 11:47:42 CDT CPT-56768 Port a cath flush 08:29:49 CDT CPT-OV Office Visit 14:27:58 CLINICAL NURSING ASSISTANT
--- OUTSIDE RECORDS SUMMARY | 2016-08-07 10:41 | XMS REPORT | Clinical Summary ---
Author Author Admin, [employer] Organization [facility] Address Unknown Phone Allergies, Adverse Reactions, Alerts Allergy Name Reaction Description Start Date Severity Status Provider PENICILLIN Critical Active Welches [place] Conditions or Problems Problem Name Problem Code Onset Date Status Entry Date Provider Comment Standard Description Annotate DIABETES MELLITUS, TYPE II, CONTROLLED 250.00 Active Jonel Hemphill MD Diabetes mellitus without mention of complication, type II or unspecified type, not stated as uncontrolled MORBID OBESITY 278.01 Active Jonel Hemphill MD Morbid obesity HYPERTENSION 401.1 Active Jonel Hemphill MD Benign essential hypertension 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 USE, RESIDENTIAL V58.69 Resolved Jonel Hemphill MD Long-term (current) use of other medications C V A / STROKE 436 Active Welches Tisha Acute, but ill- defined, cerebrovascular disease C O P D 496 Active Welches [place] Chronic airway obstruction, not elsewhere classified DIABETES, TYPE 2 250.00 Resolved Jonel Hemphill MD Diabetes mellitus without mention of complication, type II or unspecified type, not stated as uncontrolled SEIZURE DISORDER 780.39 Active Welches [place] Other convulsions CORONARY HEART DISEASE 414.00 Resolved Jonel Hemphill MD Coronary atherosclerosis of unspecified type of vessel, [place] or graft FH DIABETES V18.0 Resolved Jonel [...] NEUROPATHY 356.9 Active Jonel Hemphill MD Unspecified idiopathic peripheral neuropathy LYMPHEDEMA 457.1 Active Jonel [...] Coronary atherosclerosis of unspecified type of vessel, [place] or graft CONSTIPATION 564.00 Resolved Jonel Hemphill [...] Jonel Hemphill MD Dermatophytosis of the body 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 USE, RESIDENTIAL ICD-V58.69 Inactive Jonel Hemphill MD DIABETES, TYPE 2 ICD-250.00 Inactive Jonel Hemphill MD CORONARY HEART DISEASE ICD-414.00 Inactive Jonel Hemphill MD DIABETES ICD-V18.0 Inactive Jonel Hemphill MD FH STROKE ICD-V17.1 Inactive oJnel Hemphill MD FAMILY HISTORY COLON CANCER-MOTHER ICD-V16.0 [...] MD Bronchitis-Acute ICD-466.0 Inactive Jonel Hemphill MD Medication List Medication Instructions Start Date Stop Date Generic Name NDC Status Provider Patient Instruction NORCO 5-325 MG TABS 1-2 TAB Q 6 HRS PRN HYDROCODONE- ACETAMINOPHEN 18016703668 Active Jonel Hemphill MD Active LEVEMIR 100 UNIT/ML SOLN 5 units sub-q at bedtime INSULIN DETEMIR 68523315212 No Longer Active Tova Perez Active MOBIC 15 MG TABS 1 tab PO daily for arthritis pain MELOXICAM 45900072553 No Longer Active Tova Perez Active GLUCAGEN 1 MG SOLR INJECT 1MG IM IF BS LESS THAN 60 & RES. IS UNABLE TO SWALLOW GLUCAGON HCL (RDNA) 36166742449 No Longer Active Tova Perez Active [facility] MILK OF MAGNESIA 1200 MG/15ML SUSP 30 ml daily for constipation MAGNESIUM HYDROXIDE 36175623115 No Longer Active Tova Perez Active IMDUR 120 MG [id number] 1 qd ISOSORBIDE MONONITRATE 77424250825 No Longer Active Tova Perez Active METFORMIN HCL 500 MG TABS 1 tablet by mouth twice daily METFORMIN HCL 38924007016 Active Tova Perez Active SULFAMETHOXAZOLE-TMP DS 800-160 MG TABS 1 TAB PO BID SULFAMETHOXAZOLE-TRIMETHOPRIM 40434988281 Active Tova Perez Active PHENYTOIN 50 MG CHEW 1 TAB PO BID PHENYTOIN 37773889345 Active Tova Perez Active MECLIZINE HCL 25 MG CHEW TAB 1 four times a day as needed for dizziness 02/21 MECLIZINE HCL 82012254254 Active Tova Perez Active GABAPENTIN 300 MG CAPS 1 CAP PO TID GABAPENTIN 91664567814 Active Tova Perez Active NEURONTIN 400 MG CAPS Take one by mouth 3 times daily, morning, afternoon and evening.] GABAPENTIN 61149601507 No Longer Active Tova Perez Active AMBIEN 10 MG TAB 1 tab by mouth at bedtime as needed for sleep ZOLPIDEM TARTRATE 96235818672 Active Jonel Hemphill MD Active POTASSIUM CHLORIDE CHLEA ER 20 MEQ CR-TABS 1 tab PO daily POTASSIUM CHLORIDE CHELA CR 65828912980 Active Jonel Hemphill MD Active ANTIVERT 25 MG TABS 1 q 6 hrs prn MECLIZINE HCL 72340416417 No Longer Active Jonel Hemphill MD Active CLONIDINE HCL 0.2 MG TABS 1 q 8 hrs as needed -greater than 160-htn CLONIDINE HCL 55611976405 No Longer Active Jonel Hemphill MD Active AMBIEN 10 MG TABS 1 q hs prn ZOLPIDEM TARTRATE 83977203177 No Longer Active Jonel Hemphill MD Active GNP THERAPEUTIC-M TABS 1 qd MULTIPLE VITAMINS- MINERALS 97079701433 No Longer Active Jonel Hemphill MD Active METOPROLOL TARTRATE 50 MG TABS 1 bid METOPROLOL TARTRATE 71967623241 No Longer Active Jonel Hemphill MD Active METFORMIN HCL 500 MG TABS 1 bod with food METFORMIN HCL 89687884211 No Longer Active Jonel Hemphill MD Active LISINOPRIL 40 MG TABS 1 qd LISINOPRIL 68410566450 No Longer Active Jonel Hemphill MD Active HYDROCHLOROTHIAZIDE 25 MG TABS 1 qd HYDROCHLOROTHIAZIDE 81486450979 No Longer Active Jonel Hemphill MD Active DURAGESIC-25 25 MCG/HR PT72 place 1 patch on the skin q72hrs for pain FENTANYL 29057048328 No Longer Active Jonel Hemphill MD Active FENTANYL 75 MCG/HR PT72 place 1 patch on skin q72hrs fr pain 2012 FENTANYL 99295297268 No Longer Active Jonel Hemphill MD Active LASIX 20 MG TABS 1 tab PO q morning FUROSEMIDE 42511098886 Active Jonel Hemphill MD Active FUROSEMIDE 40 MG TABS 1 q am FUROSEMIDE 95463697547 No Longer Active Jonel Hemphill MD Active HEPARIN (PORCINE) LOCK FLUSH 100 UNIT/ML SOLN Flush port a cath monthly every three week on with Heparin and NS HEPARIN LOCK FLUSH 74882711710 Active Jonel Hemphill MD Active FENTANYL 100 MCG/HR PT72 Apply every 3 days FENTANYL 75016775727 Active Jonel Hemphill MD Active FENTANYL 25 MCG/HR PT72 Apply to clean skin and change every 72 hours. 07/03 FENTANYL 75060525711 No Longer Active Jonel Hemphill MD Active FENTANYL 50 MCG/HR PT72 place 1 patch on skin q72 hours FENTANYL 38798497284 No Longer Active Mayco Shah APRN Active HYDROCODONE-ACETAMINOPHEN 7.5-325 MG TABS 1 q 6 hrs prn HYDROCODONE-ACETAMINOPHEN 28576878278 Active Jonel Hemphill MD Active ATIVAN 0.5 MG TABS Take 1 tablet 2x daily LORAZEPAM 07035941545 Active Jonel Hemphill MD Active CELEXA 20 MG TABS Take 1 tablet 1x daily CITALOPRAM HYDROBROMIDE 84110049188 Active Jonel Hemphill MD Active MIRALAX POWD 17 gms in 4 oz water or juice daily POLYETHYLENE GLYCOL 3350 60770560619 Active Rubin Pierre MD Active DURAGESIC-12 12 MCG/HR PT72 APPLY PATCH TO SKIN AND CHANGE EVERY 72 HOURS, ROTATE SITES FENTANYL 20885217898 No Longer Active Fozia YANGA Active [facility] VITAMIN C 500 MG TABS 1 po daily ASCORBIC ACID 55716098470 Active Mahogany Rincon Active FUROSEMIDE 20 MG TABS 1 qd FUROSEMIDE 59681666595 No Longer Active Mahogany Rincon Active ADULT ASPIRIN EC LOW STRENGTH 81 MG TBEC 1 qd ASPIRIN 46812357855 Active Gregor Tisha Active DILANTIN 100 MG CAPS 3 cap tid PHENYTOIN SODIUM EXTENDED 83040305751 Active Gregor [place] Active BUDEPRION SR 150 MG [id number] 1 bid BUPROPION HCL 87159462954 Active Gregor Tisha Active ALLOPURINOL 300 MG TABS 1 qd ALLOPURINOL 43435880983 Active Welches Tisha Active COZAAR 100 MG TABS 1 qd LOSARTAN POTASSIUM 34024480824 Active Gregor Tisha Active FUROSEMIDE 20 MG TABS 1 qd FUROSEMIDE 20 MG TABS 795377 FUROSEMIDE Inactive DURAGESIC-12 12 MCG/HR PT72 APPLY PATCH TO SKIN AND CHANGE EVERY 72 HOURS, ROTATE SITES DURAGESIC-12 12 MCG/HR PT72 163007 FENTANYL Inactive FENTANYL 50 MCG/HR PT72 place 1 patch on skin q72 hours FENTANYL 50 MCG/HR PT72 785272 FENTANYL Inactive FUROSEMIDE 40 MG TABS 1 q am FUROSEMIDE 40 MG TABS 886486 FUROSEMIDE Inactive FENTANYL 75 MCG/HR PT72 place 1 patch on skin q72hrs fr pain 2012 FENTANYL 75 MCG/HR PT72 716434 FENTANYL Inactive DURAGESIC-25 25 MCG/HR PT72 place 1 patch on the skin q72hrs for pain DURAGESIC-25 25 MCG/HR PT72 214472 FENTANYL Inactive HYDROCHLOROTHIAZIDE 25 MG TABS 1 qd HYDROCHLOROTHIAZIDE 25 MG TABS 059017 HYDROCHLOROTHIAZIDE Inactive LISINOPRIL 40 MG TABS 1 qd LISINOPRIL 40 MG TABS 004698 LISINOPRIL Inactive METFORMIN HCL 500 MG TABS 1 bod with food METFORMIN HCL 500 MG TABS 961289 METFORMIN HCL Inactive METOPROLOL TARTRATE 50 MG TABS 1 bid METOPROLOL TARTRATE 50 MG TABS 154609 METOPROLOL TARTRATE Inactive GNP THERAPEUTIC-M TABS 1 qd GNP THERAPEUTIC-M TABS MULTIPLE VITAMINS-MINERALS Inactive AMBIEN 10 MG TABS 1 q hs prn AMBIEN 10 MG TABS 157908 ZOLPIDEM TARTRATE Inactive CLONIDINE HCL 0.2 MG TABS 1 q 8 hrs as needed -greater than 160-htn CLONIDINE HCL 0.2 MG TABS 313286 CLONIDINE HCL Inactive ANTIVERT 25 MG TABS 1 q 6 hrs prn ANTIVERT 25 MG TABS MECLIZINE HCL Inactive NEURONTIN 400 MG CAPS Take one by mouth 3 times daily, morning, afternoon and evening.] NEURONTIN 400 MG CAPS 585856 GABAPENTIN Inactive IMDUR 120 MG [id number] 1 qd IMDUR 120 MG [id number] ISOSORBIDE MONONITRATE Inactive [facility] MILK OF MAGNESIA [...] for arthritis pain MOBIC 15 MG TABS 834398 MELOXICAM Inactive LEVEMIR 100 UNIT/ML SOLN 5 units sub-q at bedtime LEVEMIR 100 UNIT/ML SOLN INSULIN DETEMIR Inactive FENTANYL 25 MCG/HR PT72 Apply to clean skin and change every 72 hours. 07/03 FENTANYL 25 MCG/HR PT72 591164 FENTANYL Inactive Advance Directives Directive Description Start Date ADVANCE DIRECTIVE Immunizations Vaccine Administration Date Value Standard Description influenza immunization (Flu Vax) has been administered Influenza - Unspecified Formulation [CVX88] influenza virus vaccine, unspecified formulation pneumococcal immunization administered Pneumovax 23 [CVX33] pneumococcal polysaccharide vaccine, 23 valent Vital Signs Date Name Value Unit Range Description blood pressure, diastolic - 8462-4 66 mm[Hg] BP augustin blood pressure, systolic - 8480-6 110 mm[Hg] BP sys pulse rate E&M - 8867-4 71 /min Heart rate respiratory rate E&M - 9279-1 20 /min Resp rate temperature E&M 96.1 [degF] Body temperature blood pressure, diastolic - 8462-4 81 mm[Hg] BP augustin blood pressure, systolic - 8480-6 159 mm[Hg] BP sys height E&M - 8302-2 68 [in_us] Bdy height pulse rate E&M - 8867-4 81 /min Heart rate temperature E&M 98.7 [degF] Body temperature weight E&M - 3141-9 340 [lb_av] Weight Measured blood pressure, diastolic - 8462-4 80 mm[Hg] BP augustin blood pressure, systolic - 8480-6 132 mm[Hg] BP sys pulse rate E&M - 8867-4 73 /min Heart rate respiratory rate E&M - 9279-1 20 /min Resp rate temperature E&M 97.9 [degF] Body temperature blood pressure, diastolic - 8462-4 72 mm[Hg] BP augustin blood pressure, systolic - 8480-6 138 mm[Hg] BP sys pulse rate E&M - 8867-4 68 /min Heart rate respiratory rate E&M - 9279-1 18 /min Resp rate temperature E&M 98.5 [degF] Body temperature blood pressure, diastolic - 8462-4 77 mm[Hg] BP augustin blood pressure, systolic - 8480-6 148 mm[Hg] BP sys height E&M - 8302-2 68 [in_us] Bdy height pulse rate E&M - 8867-4 76 /min Heart rate respiratory rate E&M - 9279-1 20 /min Resp rate temperature E&M 97.3 [degF] Body temperature blood pressure, diastolic - 8462-4 80 mm[Hg] BP augustin blood pressure, systolic - 8480-6 150 mm[Hg] BP sys pulse rate E&M - 8867-4 69 /min Heart rate respiratory rate E&M - 9279-1 20 /min Resp rate temperature E&M 96.2 [degF] Body temperature blood pressure, diastolic - 8462-4 85 mm[Hg] BP augustin blood pressure, systolic - 8480-6 151 mm[Hg] BP sys height E&M - 8302-2 68 [in_us] Bdy height pulse rate E&M - 8867-4 80 /min Heart rate temperature E&M 98.1 [degF] Body temperature blood pressure, diastolic - 8462-4 84 mm[Hg] BP augustin blood pressure, systolic - 8480-6 187 mm[Hg] BP sys height E&M - 8302-2 68 [in_us] Bdy height pulse rate E&M - 8867-4 84 /min Heart rate temperature E&M 98.8 [degF] Body temperature blood pressure, diastolic - 8462-4 76 mm[Hg] BP augustin blood pressure, systolic - 8480-6 123 mm[Hg] BP sys height E&M - 8302-2 68 [in_us] Bdy height pulse rate E&M - 8867-4 83 /min Heart rate temperature E&M 98.6 [degF] Body temperature weight E&M - 3141-9 347 [lb_av] Weight Measured blood pressure, diastolic - 8462-4 75 mm[Hg] BP augustin blood pressure, systolic - 8480-6 148 mm[Hg] BP sys pulse rate E&M - 8867-4 83 /min Heart rate respiratory rate E&M - 9279-1 20 /min Resp rate temperature E&M 97.8 [degF] Body temperature blood pressure, diastolic - 8462-4 89 mm[Hg] BP augustin blood pressure, systolic - 8480-6 154 mm[Hg] BP sys height E&M - 8302-2 68 [in_us] Bdy height pulse rate E&M - 8867-4 86 /min Heart rate respiratory rate E&M - 9279-1 18 /min Resp rate temperature E&M 97.1 [degF] Body temperature weight E&M - 3141-9 364 [lb_av] Weight Measured blood pressure, diastolic - 8462-4 89 mm[Hg] BP augustin blood pressure, systolic - 8480-6 154 mm[Hg] BP sys pulse rate E&M - 8867-4 86 /min Heart rate respiratory rate E&M - 9279-1 18 /min Resp rate temperature E&M 97.1 [degF] Body temperature weight E&M - 3141-9 373 [lb_av] Weight Measured blood pressure, diastolic - 8462-4 79 mm[Hg] BP augustin blood pressure, systolic - 8480-6 144 mm[Hg] BP sys pulse rate E&M - 8867-4 89 /min Heart rate respiratory rate E&M - 9279-1 20 /min Resp rate temperature E&M 97.4 [degF] Body temperature blood pressure, diastolic - 8462-4 75 mm[Hg] BP augustin blood pressure, systolic - 8480-6 146 mm[Hg] BP sys height E&M - 8302-2 68 [in_us] Bdy height pulse rate E&M - 8867-4 89 /min Heart rate temperature E&M 98.5 [degF] Body temperature weight E&M - 3141-9 375 [lb_av] Weight Measured Diagnostic Results Date Name Value Unit Range Description Chart Maintenance: Outside labs entered on flowsheet - Chemistry sodium, serum 139 mmol/L potassium, serum 4.1 mmol/L chloride, serum 104 mmol/L carbon dioxide, venous blood 25.8 mmol/L urea nitrogen, blood 26 mg/dL blood glucose 100 mg/dL creatinine, serum 1.22 mg/dL aspartate aminotransferase (SGOT), serum 19 U/L alanine aminotransferase (SGPT), serum 44 U/L bilirubin, serum, total 0.1 mg/dL alkaline phosphatase, serum 79 U/L calcium, serum 8.6 mg/dL Chart Maintenance: Outside labs entered on flowsheet - Hematology leukocyte count, blood 5.7 10*3/mm3 erythrocyte (RBC) count 2.7 10*6/mm3 hemoglobin, blood 8.5 g/dL hematocrit, blood 27.9 % mean corpuscular volume, RBC 104.5 fL mean corpuscular hemoglobin, RBC 31.8 pg red blood cell distribution width 16.9 % platelet count 130 10*3/mm3 Clinical Lists Update: CBC W/ DIFF - Hematology hemoglobin, blood 13.6 g/dL hematocrit, blood 40.0 % mean corpuscular hemoglobin, RBC 30.3 pg red blood cell distribution width 15.0 % Clinical Lists Update: CBC W/ DIFF, CMP, DILANTIN, PLT, RBCMORPH - Chemistry sodium, serum 142 mmol/L potassium, serum 3.7 mmol/L chloride, serum 105 mmol/L carbon dioxide, venous blood 30 mmol/L urea nitrogen, blood 19 mg/dL blood glucose 117 mg/dL creatinine, serum 0.66 mg/dL aspartate aminotransferase (SGOT), serum 12 U/L alanine aminotransferase (SGPT), serum 12 U/L bilirubin, serum, total 0.3 mg/dL alkaline phosphatase, serum 57 U/L calcium, serum 9.7 mg/dL Clinical Lists Update: CBC W/ DIFF, CMP, DILANTIN, PLT, RBCMORPH - Hematology hemoglobin, blood 13.8 g/dL hematocrit, blood 41.1 % mean corpuscular hemoglobin, RBC 29.4 pg red blood cell distribution width 16.4 % Lab Report: Basic Metabolic Panel - Chemistry sodium, serum 137 mmol/L 119-501 4858/06/14 potassium, serum 7.1 mmol/L 3.5-5.2 chloride, serum 107 mmol/L 98-107 carbon dioxide, venous blood 18.7 mmol/L 21.0-32.0 blood glucose 153 mg/dL 65-110 calcium, serum 8.8 mg/dL 8.5-10.1 urea nitrogen, blood 82 mg/dL 7-18 creatinine, serum 2.50 mg/dL 0.60-1.30 sodium, serum 140 mmol/L 736-640 8697/05/31 potassium, serum 5.5 mmol/L 3.5-5.2 chloride, serum 108 mmol/L 98-107 carbon dioxide, venous blood 22.8 mmol/L 21.0-32.0 blood glucose 88 mg/dL 65-110 calcium, serum 9.1 mg/dL 8.5-10.1 urea nitrogen, blood 47 mg/dL 7-18 creatinine, serum 1.70 mg/dL 0.60-1.30 sodium, serum 137 mmol/L 352-353 5870/06/05 potassium, serum 6.5 mmol/L 3.5-5.2 chloride, serum 105 mmol/L 98-107 carbon dioxide, venous blood 22.0 mmol/L 21.0-32.0 blood glucose 132 mg/dL 65-110 calcium, serum 8.7 mg/dL 8.5-10.1 urea nitrogen, blood 71 mg/dL 7-18 creatinine, serum 2.10 mg/dL 0.60-1.30 sodium, serum 141 mmol/L 874-018 5538/07/01 potassium, serum 3.4 mmol/L 3.5-5.2 chloride, serum 104 mmol/L 98-107 carbon dioxide, venous blood 27.3 mmol/L 21.0-32.0 blood glucose 101 mg/dL 65-110 calcium, serum 8.9 mg/dL 8.5-10.1 urea nitrogen, blood 15 mg/dL 7-18 creatinine, serum 1.10 mg/dL 0.60-1.30 Lab Report: CBC W/ DIFF - Hematology hemoglobin, blood 14.2 g/dL hematocrit, blood 42.8 % mean corpuscular hemoglobin, RBC 29.3 pg red blood cell distribution width 16.1 % hemoglobin, blood 14.3 g/dL hematocrit, blood 42.1 % mean corpuscular hemoglobin, RBC 30.1 pg red blood cell distribution width 15.9 % hemoglobin, blood 14.9 g/dL hematocrit, blood 42.9 % mean corpuscular hemoglobin, RBC 30.5 pg red blood cell distribution width 14.9 % Lab Report: CBC W/ DIFF, BMP - Chemistry sodium, serum 141 mmol/L potassium, serum 4.1 mmol/L chloride, serum 103 mmol/L carbon dioxide, venous blood 29.8 mmol/L urea nitrogen, blood 15 mg/dL blood glucose 121 mg/dL creatinine, serum 0.88 mg/dL calcium, serum 9.0 mg/dL Lab Report: CBC W/ DIFF, BMP - Hematology leukocyte count, blood 5.0 10*3/mm3 erythrocyte (RBC) count 4.9 10*6/mm3 hemoglobin, blood 13.9 g/dL hematocrit, blood 43.1 % mean corpuscular volume, RBC 88.9 fL mean corpuscular hemoglobin, RBC 28.7 pg red blood cell distribution width 16.6 % platelet count 126 10*3/mm3 Lab Report: CBC W/DIFF - Hematology leukocyte count, blood 6.9 10^3/MM^3 10*3/mm3 4.6-10.2 neutrophils as percent of blood leukocytes 64.3 % 42.2-75.2 monocytes as percent of blood leukocytes 7.2 % 1.7-9.3 lymphocytes as percent of blood leukocytes 26.4 % 20.5-51.1 erythrocyte (RBC) count 4.59 10^6/MM^3 10*6/mm3 4.69-6.13 hemoglobin, blood 14.4 g/dL 13.5-17.5 hematocrit, blood 42.2 % 41.0-53.0 mean corpuscular volume, RBC 92 fL 80-97 mean corpuscular hemoglobin, RBC 31.5 pg 27.0-31.2 mean corpuscular hemoglobin concentration, RBC 34.2 G/DL % 31.8- 35.4 red blood cell distribution width 15.1 % 11.6-14.8 platelet count 121 10^3/MM^3 10*3/mm3 142-424 Lab Report: CBC, Comp. Metabolic Panel, HGBA1C, UADIP W/MICRO, AUTO, MAY ... - Chemistry albumin/creatinine ratio, urine 30 - 300 mg/g mg/g{creat} 0-29 protein, total urine random Negative mg/dL Negative sodium, serum 142 mmol/L 265-312 0801/07/15 potassium, serum 3.9 mmol/L 3.5-5.2 chloride, serum 102 mmol/L 98-107 carbon dioxide, venous blood 27.6 mmol/L 21.0-32.0 blood glucose 125 mg/dL 65-110 urea nitrogen, blood 12 mg/dL 7-18 creatinine, serum 1.10 mg/dL 0.60-1.30 alanine aminotransferase (SGPT), serum 27 U/L 12-78 aspartate aminotransferase (SGOT), serum 17 U/L 15-37 alkaline phosphatase, serum 87 U/L 50-136 calcium, serum 8.9 mg/dL 8.5-10.1 bilirubin, serum, total 0.30 mg/dL 0.00-1.00 hemoglobin A1C, blood, as % of total hemoglobin 4.8 % 4.3-6.0 RBC, urine, dipstick Negative Negative Lab Report: CBC, Comp. Metabolic Panel, HGBA1C, UADIP W/MICRO, AUTO, MAY ... - Hematology leukocyte count, blood 6.2 10^3/MM^3 10*3/mm3 4.6-10.2 erythrocyte (RBC) count 3.61 10^6/MM^3 10*6/mm3 4.69-6.13 hemoglobin, blood 11.7 g/dL 13.5-17.5 hematocrit, blood 35.7 % 41.0-53.0 mean corpuscular volume, RBC 99 fL 80-97 mean corpuscular hemoglobin, RBC 32.4 pg 27.0-31.2 mean corpuscular hemoglobin concentration, RBC 32.8 G/DL % 31.8- 35.4 red blood cell distribution width 13.4 % 11.6-14.8 platelet count 182 10^3/MM^3 10*3/mm3 142-424 Lab Report: CBC, Comp. Metabolic Panel, HGBA1C, UADIP W/MICRO, AUTO, MAY ... - Lab microalbumin, urine 10 0-19 Lab Report: CBC, Comp. Metabolic Panel, HGBA1C, UADIP W/MICRO, AUTO, MAY ... - Urinalysis urobilinogen, urine, semiquantitative (dipstick) 0.2 Normal leukocyte esterase, urine, by dipstick Negative Negative nitrite, urine, semiquantitative Negative Negative urine color Yellow Colorless;Lightyellow;Straw;Yellow appearance, urine Clear Clear specific gravity, urine 1.020 1.000-1.030 pH, urine, semiquantitative 5.5 5.0-8.5 glucose, urine, semiquantitative Negative Negative ketones, urine, by test strip Negative Negative bilirubin, urine Negative Negative Lab Report: CBC, Comp. Metabolic Panel, Uric Acid - Chemistry sodium, serum 141 mmol/L 407-410 6387/05/09 potassium, serum 3.9 mmol/L 3.5-5.2 chloride, serum 103 mmol/L 98-107 carbon dioxide, venous blood 27.8 mmol/L 21.0-32.0 blood glucose 197 mg/dL 65-110 urea nitrogen, blood 18 mg/dL 7-18 creatinine, serum 1.10 mg/dL 0.60-1.30 alanine aminotransferase (SGPT), serum 26 U/L 12-78 aspartate aminotransferase (SGOT), serum 9 U/L 15-37 alkaline phosphatase, serum 79 U/L 50-136 calcium, serum 9.4 mg/dL 8.5-10.1 bilirubin, serum, total 0.20 mg/dL 0.00-1.00 uric acid, serum 4.8 mg/dL 2.6-7.2 Lab Report: CBC, Comp. Metabolic Panel, Uric Acid - Hematology leukocyte count, blood 7.3 10^3/MM^3 10*3/mm3 4.6-10.2 erythrocyte (RBC) count 4.53 10^6/MM^3 10*6/mm3 4.69-6.13 hemoglobin, blood 14.5 g/dL 13.5-17.5 hematocrit, blood 43.3 % 41.0-53.0 mean corpuscular volume, RBC 96 fL 80-97 mean corpuscular hemoglobin, RBC 32.1 pg 27.0-31.2 mean corpuscular hemoglobin concentration, RBC 33.6 G/DL % 31.8- 35.4 red blood cell distribution width 14.7 % 11.6-14.8 platelet count 129 Verified By Repeat Analysis 10^3/mm^3 10*3/ mm3 142-424 Lab Report: Comp. Metabolic Panel, UADIP W/MICRO, AUTO - Chemistry sodium, serum 140 mmol/L 861-490 6663/02/18 potassium, serum 3.8 mmol/L 3.5-5.2 chloride, serum 102 mmol/L 98-107 carbon dioxide, venous blood 30.3 mmol/L 21.0-32.0 blood glucose 90 mg/dL 65-110 urea nitrogen, blood 14 mg/dL 7-18 creatinine, serum 0.80 mg/dL 0.60-1.30 alanine aminotransferase (SGPT), serum 29 U/L 12-78 aspartate aminotransferase (SGOT), serum 18 U/L 15-37 alkaline phosphatase, serum 87 U/L 50-136 calcium, serum 8.4 mg/dL 8.5-10.1 bilirubin, serum, total 0.40 mg/dL 0.00-1.00 protein, total urine random Negative mg/dL Negative RBC, urine, dipstick Negative Negative Lab Report: Comp. Metabolic Panel, UADIP W/MICRO, AUTO - Urinalysis urobilinogen, urine, semiquantitative (dipstick) 0.2 Normal leukocyte esterase, urine, by dipstick Negative Negative nitrite, urine, semiquantitative Negative Negative glucose, urine, semiquantitative Negative Negative ketones, urine, by test strip Negative Negative bilirubin, urine Negative Negative urine color Yellow Colorless;Lightyellow;Straw;Yellow appearance, urine Clear Clear specific gravity, urine 1.025 1.000-1.030 pH, urine, semiquantitative 6.0 5.0-8.5 Lab Report: Comp. Metabolic Panel, Uric Acid - Chemistry sodium, serum 141 mmol/L 758-182 6336/06/11 potassium, serum 5.9 mmol/L 3.5-5.2 chloride, serum 108 mmol/L 98-107 carbon dioxide, venous blood 22.9 mmol/L 21.0-32.0 blood glucose 135 mg/dL 65-110 urea nitrogen, blood 78 mg/dL 7-18 creatinine, serum 2.70 mg/dL 0.60-1.30 alanine aminotransferase (SGPT), serum 35 U/L 12-78 aspartate aminotransferase (SGOT), serum 14 U/L 15-37 alkaline phosphatase, serum 76 U/L 50-136 calcium, serum 8.7 mg/dL 8.5-10.1 bilirubin, serum, total 0.15 mg/dL 0.00-1.00 uric acid, serum 6.0 mg/dL 2.6-7.2 Lab Report: MICROALBUMIN, UADIP W/MICRO, AUTO - Chemistry albumin/creatinine ratio, urine < 30 mg/g mg/g{creat} 0-29 protein, total urine random Negative mg/dL Negative RBC, urine, dipstick Negative Negative Lab Report: MICROALBUMIN, UADIP W/MICRO, AUTO - Lab microalbumin, urine 30 0-19 Lab Report: MICROALBUMIN, UADIP W/MICRO, AUTO - Urinalysis glucose, urine, semiquantitative Negative Negative ketones, urine, by test strip Negative Negative bilirubin, urine Negative Negative urine color Yellow Colorless;Lightyellow;Straw;Yellow appearance, urine Cloudy Clear specific gravity, urine 1.025 1.000-1.030 pH, urine, semiquantitative 5.0 5.0-8.5 urobilinogen, urine, semiquantitative (dipstick) 0.2 Normal leukocyte esterase, urine, by dipstick Negative Negative nitrite, urine, semiquantitative Negative Negative urate crystals, amorphous, urine, semiquantitative Large None seen Lab Report: PHENYTOIN - Toxicology phenytoin level, serum <2.5 mg/L ug/mL 10.0-20.0 Encounters Code Encounter Date Provider Facility CPT-47890 Level 3 Est. Patient 17:18:03 CDT Jonel Hemphill MD [facility] CPT-86950 Level 3 Est. Patient 21:58:03 [employer] Jonel Hemphill MD [facility] CPT-71303 Level 4 Est. Patient 18:03:[address] [facility]-[id number] Level 4 Est. Patient 13:24:53 CDT Jonel Hemphill MD [facility] [facility]-10675 Level 4 Est. Patient 09:15:44 CDT [facility]el [facility]87990 Level 4 Est. Patient 19:16:01 CDT Jonel Yeager [facility] CPT-24617 Level 4 Est. Patient 11:25:16 CDT Jonel Hemphill MD [facility] CPT-22980 Level 4 Est. Patient 09:00:[address] [facility]-29978 Level 4 Est. Patient 14:53:58 CDT Jonel Hemphill MD [facility] CPT-05910 Level 4 Est. Patient 22:59:01 CDT Jonel Hemphill MD [facility]-97767 Level 4 Est. Patient 09:29:57 CDT Jonel Hemphill MD [facility]-37914 Level 4 Est. Patient 12:35:53 PLANT ENGINEER Jonel Hemphill MD [facility]-38646 Level 4 Est. Patient 22:36:09 PLANT ENGINEER Jonel Hemphill MD [facility]-98356 Level 2 Est. Patient 15:14:15 PLANT ENGINEER Mayco Shah APRN [facility] CPT-10209 Level 4 Est. Patient 10:36:22 PLANT ENGINEER Jonel Hemphill MD [facility] CPT-11267 Level 4 Est. Patient 22:01:13 PLANT ENGINEER Jonel Hemphill MD [facility]-35446 Level 3 Est. Patient 21:50:37 PLANT ENGINEER Jonel Hemphill MD [facility] CPT-86586 Level 4 Est. Patient 15:02:43 CDT Rubin Pierre MD [facility] CPT-25126 Level 4 Est. Patient 14:27:35 CDT Jonel Hemphill MD [facility]-57976 Level 4 Est. Patient 12:41:17 CDT Jonel Hemphill MD [facility]-27695 Level 4 Est. Patient 16:18:55 CDT Jonel Hemphill MD [facility]-93604 Level 4 Est. Patient 17:58:05 CDT Jonel Hemphill MD [facility]-87111 Level 4 Est. Patient 22:10:06 CDT Jonel Hemphill MD [facility]-49872 Level 4 Est. Patient 13:22:09 CDT Jonel Hemphill MD [facility]-48665 Level 4 Est. Patient 22:52:17 PLANT ENGINEER Jonel Hemphill MD [facility]-93888 Level 3 Est. Patient 22:34:10 PLANT ENGINEER Jonel Hemphill MD [facility] CPT-04627 Level 4 Est. Patient 07:49:20 PLANT ENGINEER Jonel Hemphill MD [facility] Skilled CPT-84419 Level 3 Est. Patient 08:28:27 PLANT ENGINEER Jonel Hemphill MD [facility] Procedures Code Procedure Name Date Entry Date Standard Description CPT-59659 Level 3 [facility]itentiary 12:09:43 CDT CPT-78448 Level 3 Penitentiary 09:37:40 CDT CPT-12562 Level 3 Penitentiary 18:23:02 CDT CPT-30519 Level 3 Penitentiary 14:09:06 CDT CPT-60598 Level 3 Penitentiary 12:43:27 PLANT ENGINEER CPT-06003 Postop F/U Visit 14:10:15 PLANT ENGINEER CPT-82501 [facility] 17:07:14 PLANT ENGINEER CPT-71308 Level 3 Penitentiary 16:14:37 PLANT ENGINEER CPT-98228 Port a cath flush 11:47:42 CDT CPT-16426 Port a cath flush 08:29:49 CDT CPT-OV Office Visit 14:27:58 PLANT ENGINEER
--- OUTSIDE RECORDS SUMMARY | 2016-08-07 10:42 | XMS REPORT | Clinical Summary ---
Author Author Admin, [place] Organization [facility] Address Unknown Phone Unavailable Allergies, Adverse Reactions, Alerts Allergy Name Reaction Description Start Date Severity Status Provider PENICILLIN Critical Active Gregor Giles RMA Conditions or Problems Problem Name 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, CIRCULATION MANAGER V58.69 Resolved Jonel Hemphill MD Long-term (current) [...] Coronary atherosclerosis of unspecified type of vessel, [place] or graft FH DIABETES V18.0 Resolved Jonel [...] Coronary atherosclerosis of unspecified type of vessel, [place] or graft CONSTIPATION 564.00 Resolved Jonel Hemphill [...] except foot Chest wall pain, acute 786.52 Active Jonel Hemphill MD Painful respiration DIABETES, TYPE 2 ICD-250.00 Inactive Jonel Hemphill MD FH DIABETES ICD-V18.0 [...] TREMOR ICD-781.0 Inactive Jonel Hemphill MD 05/30 CORONARY HEART DISEASE ICD-414.00 Inactive Jonel Hemphill MD 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 USE, FDC ICD-V58.69 Inactive Jonel Hemphill MD FITTING AND ADJUSTMENT OF VASCULAR CATHETER ICD-V58.81 Inactive Jonel Hemphill MD DEHYDRATION ICD-276.51 Inactive Jonel Hemphill MD RENAL FAILURE, ACUTE ICD-584.9 Inactive Jonel Hemphill MD HYPERKALEMIA ICD-276.7 Inactive Jonel Hemphill MD 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 Inactive Jonel Hemphill MD LOOSE STOOLS ICD-787.91 Malina Hemphill MD RENAL INSUFFICIENCY ICD-585.9 Inactive Jonel Hemphill MD CHRONIC KIDNEY DISEASE UNSPECIFIED ICD-585.9 Malina Hemphill MD Infection and inflammatory reaction due to other internal prosthetic device, implant, 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 Malina Hemphill MD AFTERCARE FOLLOW SURGERY SKIN&SUBCUT TISSUE NEC ICD-V58.77 05/30 Inactive Jonel Hemphill MD Dysuria ICD-788.1 Malina Hemphill MD 2013 Other malaise and fatigue ICD-780.79 Inactive Jonel Hemphill MD Malaise and fatigue ICD-780.79 Malina Hemphill MD Nightmares ICD-307.47 Inactive Jonel Hemphill MD Bronchitis-Acute ICD-466.0 Inactive Jonel Hemphill MD Cellulitis, leg, right ICD-682.6 Inactive Jonel Hemphill MD Flank pain, right ICD-789.09 Inactive Jonel Hemphill MD Medication List Medication Instructions Start Date Stop Date Generic Name NDC Status Provider Patient Instruction ULORIC 40 MG ORAL TABS 1 daily for gout. FEBUXOSTAT 59728988327 Active Marleni Romreo Active HYDROCODONE-ACETAMINOPHEN 7.5-325 MG TABS 1 TAB PO Q 6 HRS PRN HYDROCODONE-ACETAMINOPHEN 74810547939 Active Jonel Hemphill MD Active METFORMIN HCL 1000 MG TABS 1 tablet by mouth twice daily METFORMIN HCL 15443138416 Active Marleni Romero Active FENTANYL 12 MCG/HR PT72 Apply to clean, dry skin and change every 72 hours FENTANYL 79596605811 Active Mattie Gates APRN Active KLOR-CON 20 MEQ ORAL PACK 1 BY MOUTH DAILY POTASSIUM CHLORIDE 48019085675 Active Marleni Romero Active A+D FIRST AID EXT OINT APPLY OINTMENT AND RUFINO WRAPS TO LOWER EXTEREMETIES DAILY SKIN PROTECTANTS, MISC. 51620462451 Active Jonel Hemphill MD Active NYSTATIN 714001 UNIT/GM EXT OINT APPLY PRN TID TO GAULDING/RASH IN ABDOMINAL FOLDS NYSTATIN 11121678903 Active Jonel Hemphill MD Active ATIVAN 0.5 MG TABS Take 1 tablet 2x daily PRN LORAZEPAM 42675558136 Active Jonel Hemphill MD Active GABAPENTIN 400 MG ORAL CAPS 1 TAB BY MOUTH THREE TIMES DAILY GABAPENTIN 74062748921 Active Jonel Hemphill MD Active GABAPENTIN 300 MG CAPS 1 CAP PO TID GABAPENTIN 21520079557 No Longer Active Jonel Hemphill MD Active DILANTIN 100 MG ORAL CAPS 1 THREE TIMES DAILY FOR SEIZURES PHENYTOIN SODIUM EXTENDED 52050588141 Active Marleni Romero Active CPAP APPLY AT HS CPAP Active Jonel Hemphill MD Active METOPROLOL TARTRATE 50 MG ORAL TABS 1 TAB BY MOUTH TWICE DAILY METOPROLOL TARTRATE 23391246381 Active Jonel Hemphill MD Active LISINOPRIL 40 MG TABS 1 tablet by mouth twice daily, for blood pressure 03/31 LISINOPRIL 76481337653 Active Jonel Hemphill MD Active BUPROPION HCL ER (SR) 150 MG [id number] 1 twice a day for depression BUPROPION HCL 32360891324 Active Jonel Hemphill MD Active MULTIVITAMINS CAPS 1 DAILY MULTIPLE VITAMIN 04106411924 Active Jonel Hepmhill MD Active ZYLOPRIM 300 MG TAB 1 BY MOUTH DAILY ALLOPURINOL 82770677284 Active Jonel Hemphill MD Active HYDROCODONE-ACETAMINOPHEN 7.5-325 MG TABS 1 q 6 hrs prn HYDROCODONE-ACETAMINOPHEN 42542620847 No Longer Active Jonel Hemphill MD Active DILANTIN 100 MG CAPS 3 cap tid PHENYTOIN SODIUM EXTENDED 88905228795 No Longer Active Jonel Hemphill MD Active BUDEPRION SR 150 MG [id number] 1 bid BUPROPION HCL 23033300915 No Longer Active Jonel Hemphill MD Active ALLOPURINOL 300 MG TABS 1 qd ALLOPURINOL 09464260331 No Longer Active Jonel Hemphill MD Active COZAAR 100 MG TABS 1 qd LOSARTAN POTASSIUM 35539564790 No Longer Active Jonel Hemphill MD Active CVS VITAMIN C 500 MG TABS 1 po daily ASCORBIC ACID 23589513206 No Longer Active Jonel Hemphill MD Active MIRALAX POWD 17 gms in 4 oz water or juice daily POLYETHYLENE GLYCOL 3350 23495378093 No Longer Active Jonel Hemphill MD Active POTASSIUM CHLORIDE CHELA ER 20 MEQ CR-TABS 1 tab PO daily POTASSIUM CHLORIDE CHELA CR 93409867984 No Longer Active Jonel Hemphill MD Active AMBIEN 10 MG TAB 1 tab by mouth at bedtime as needed for sleep ZOLPIDEM TARTRATE 42184504046 No Longer Active Jonel Hemphill MD Active SULFAMETHOXAZOLE-TMP DS 800-160 MG TABS 1 TAB PO BID SULFAMETHOXAZOLE-TRIMETHOPRIM 52393959052 No Longer Active Jonel Hemphill MD Active NORCO 5-325 MG TABS 1-2 TAB Q 6 HRS PRN HYDROCODONE- ACETAMINOPHEN 27447423797 Active Jonel Hemphill MD Active LEVEMIR 100 UNIT/ML SOLN 5 units sub-q at bedtime INSULIN DETEMIR 05803860871 No Longer Active Tova Perez Active MOBIC 15 MG TABS 1 tab PO daily for arthritis pain MELOXICAM 32235168600 No Longer Active Tova Perez Active GLUCAGEN 1 MG SOLR INJECT 1MG IM IF BS LESS THAN 60 & RES. IS UNABLE TO SWALLOW GLUCAGON HCL (RDNA) 56052056731 No Longer Active Tova Perez Active [facility] MILK OF MAGNESIA 1200 MG/15ML SUSP 30 ml daily for constipation MAGNESIUM HYDROXIDE 08123159890 No Longer Active Tova Perez Active IMDUR 120 MG [id number] 1 qd ISOSORBIDE MONONITRATE 74723849422 No Longer Active Tova Chris Active PHENYTOIN 50 MG CHEW 1 TAB PO BID PHENYTOIN 42438425211 Active Tova Chris Active MECLIZINE HCL 25 MG CHEW TAB 1 four times a day as needed for dizziness 02/21 MECLIZINE HCL 26266942452 Active Tova Chris Active NEURONTIN 400 MG CAPS Take one by mouth 3 times daily, morning, afternoon and evening.] GABAPENTIN 26066786235 No Longer Active Tova Perez Active ANTIVERT 25 MG TABS 1 q 6 hrs prn MECLIZINE HCL 60697326367 No Longer Active Jonel Hemphill MD Active CLONIDINE HCL 0.2 MG TABS 1 q 8 hrs as needed -greater than 160-htn CLONIDINE HCL 30352950456 No Longer Active Jonel Hemphill MD Active AMBIEN 10 MG TABS 1 q hs prn ZOLPIDEM TARTRATE 11484985974 No Longer Active Jonel Hemphill MD Active GNP THERAPEUTIC-M TABS 1 qd MULTIPLE VITAMINS- MINERALS 32103355083 No Longer Active Jonel Hemphill MD Active METOPROLOL TARTRATE 50 MG TABS 1 bid METOPROLOL TARTRATE 24275456558 No Longer Active Jonel Hemphill MD Active METFORMIN HCL 500 MG TABS 1 bod with food METFORMIN HCL 39078144897 No Longer Active Jonel Hemphill MD Active LISINOPRIL 40 MG TABS 1 qd LISINOPRIL 07500698146 No Longer Active Jonel Hemphill MD Active HYDROCHLOROTHIAZIDE 25 MG TABS 1 qd HYDROCHLOROTHIAZIDE 50464438325 No Longer Active Jonel Hemphill MD Active DURAGESIC-25 25 MCG/HR PT72 place 1 patch on the skin q72hrs for pain FENTANYL 05230879801 No Longer Active Jonel Hemphill MD Active FENTANYL 75 MCG/HR PT72 place 1 patch on skin q72hrs fr pain 2012 FENTANYL 86936669530 No Longer Active Jonel Hemphill MD Active LASIX 20 MG TABS 1 tab PO q morning FUROSEMIDE 39509857476 Active Jonel Hemphill MD Active FUROSEMIDE 40 MG TABS 1 q am FUROSEMIDE 22422775623 No Longer Active Jonel Hemphill MD Active HEPARIN (PORCINE) LOCK FLUSH 100 UNIT/ML SOLN Flush port a cath monthly every three week on with Heparin and NS HEPARIN LOCK FLUSH 15976635586 Active Jonel Hemphill MD Active FENTANYL 100 MCG/HR PT72 Apply every 3 days FENTANYL 33849852448 Active Mattie Gates APRN Active FENTANYL 25 MCG/HR PT72 Apply to clean skin and change every 72 hours. 07/03 FENTANYL 30268086585 No Longer Active Jonel Hemphill MD Active FENTANYL 50 MCG/HR PT72 place 1 patch on skin q72 hours FENTANYL 35476327984 No Longer Active Mayco Shah APRN Active CELEXA 20 MG TABS Take 1 tablet 1x daily CITALOPRAM HYDROBROMIDE 31560669914 Active Jonel Hemphill MD Active DURAGESIC-12 12 MCG/HR PT72 APPLY PATCH TO SKIN AND CHANGE EVERY 72 HOURS, ROTATE SITES FENTANYL 36025860101 No Longer Active Fozia Amador RMA Active FUROSEMIDE 20 MG TABS 1 qd FUROSEMIDE 48765214981 No Longer Active [place] Active ADULT ASPIRIN EC LOW STRENGTH 81 MG TBEC 1 qd ASPIRIN 86203542573 Active MARY Perez Active FUROSEMIDE 20 MG TABS 1 qd FUROSEMIDE 20 MG TABS 060266 FUROSEMIDE Inactive DURAGESIC-12 12 MCG/HR PT72 APPLY PATCH TO SKIN AND CHANGE EVERY 72 HOURS, ROTATE SITES DURAGESIC-12 12 MCG/HR PT72 412476 FENTANYL Inactive FENTANYL 50 MCG/HR PT72 place 1 patch on skin q72 hours FENTANYL 50 MCG/HR PT72 951995 FENTANYL Inactive FUROSEMIDE 40 MG TABS 1 q am FUROSEMIDE 40 MG TABS 331907 FUROSEMIDE Inactive FENTANYL 75 MCG/HR PT72 place 1 patch on skin q72hrs fr pain 2012 FENTANYL 75 MCG/HR PT72 667222 FENTANYL Inactive DURAGESIC-25 25 MCG/HR PT72 place 1 patch on the skin q72hrs for pain DURAGESIC-25 25 MCG/HR PT72 971114 FENTANYL Inactive HYDROCHLOROTHIAZIDE 25 MG TABS 1 qd HYDROCHLOROTHIAZIDE 25 MG TABS 704576 HYDROCHLOROTHIAZIDE Inactive LISINOPRIL 40 MG TABS 1 qd LISINOPRIL 40 MG TABS 198418 LISINOPRIL Inactive METFORMIN HCL 500 MG TABS 1 bod with food METFORMIN HCL 500 MG TABS 079076 METFORMIN HCL Inactive METOPROLOL TARTRATE 50 MG TABS 1 bid METOPROLOL TARTRATE 50 MG TABS 543358 METOPROLOL TARTRATE Inactive GNP THERAPEUTIC-M TABS 1 qd GNP THERAPEUTIC-M TABS MULTIPLE VITAMINS-MINERALS Inactive AMBIEN 10 MG TABS 1 q hs prn AMBIEN 10 MG TABS 491871 ZOLPIDEM TARTRATE Inactive CLONIDINE HCL 0.2 MG TABS 1 q 8 hrs as needed -greater than 160-htn CLONIDINE HCL 0.2 MG TABS 359423 CLONIDINE HCL Inactive ANTIVERT 25 MG TABS 1 q 6 hrs prn ANTIVERT 25 MG TABS MECLIZINE HCL Inactive NEURONTIN 400 MG CAPS Take one by mouth 3 times daily, morning, afternoon and evening.] NEURONTIN 400 MG CAPS 568133 GABAPENTIN Inactive IMDUR 120 MG [id number] 1 qd IMDUR 120 MG [id number] ISOSORBIDE MONONITRATE Inactive [facility] MILK OF MAGNESIA [...] for arthritis pain MOBIC 15 MG TABS 927752 MELOXICAM Inactive LEVEMIR 100 UNIT/ML SOLN 5 units sub-q at bedtime LEVEMIR 100 UNIT/ML SOLN INSULIN DETEMIR Inactive SULFAMETHOXAZOLE-TMP DS 800-160 MG TABS 1 TAB PO BID SULFAMETHOXAZOLE-TMP DS 800-160 MG TABS 651746 SULFAMETHOXAZOLE-TRIMETHOPRIM Inactive AMBIEN 10 MG TAB 1 tab by mouth at bedtime as needed for sleep AMBIEN 10 MG TAB 934261 ZOLPIDEM TARTRATE Inactive POTASSIUM CHLORIDE CHELA ER 20 MEQ CR-TABS 1 tab PO daily POTASSIUM CHLORIDE CHELA ER 20 MEQ CR-TABS POTASSIUM CHLORIDE CHELA CR Inactive MIRALAX POWD 17 gms in 4 oz water or juice daily MIRALAX POWD 936308 POLYETHYLENE GLYCOL 3350 Inactive CVS VITAMIN C 500 MG TABS 1 po daily CVS VITAMIN C 500 MG TABS 538707 ASCORBIC ACID Inactive COZAAR 100 MG TABS 1 qd COZAAR 100 MG TABS 652676 LOSARTAN POTASSIUM Inactive ALLOPURINOL 300 MG TABS 1 qd ALLOPURINOL 300 MG TABS 408426 ALLOPURINOL Inactive BUDEPRION SR 150 MG [id number] 1 bid BUDEPRION SR 150 MG [id number] BUPROPION HCL Inactive DILANTIN 100 MG CAPS 3 cap tid DILANTIN 100 MG CAPS 228496 PHENYTOIN SODIUM EXTENDED Inactive HYDROCODONE-ACETAMINOPHEN 7.5-325 MG TABS 1 q 6 hrs prn HYDROCODONE-ACETAMINOPHEN 7.5-325 MG TABS 327429 HYDROCODONE- ACETAMINOPHEN Inactive GABAPENTIN 300 MG CAPS 1 CAP PO TID GABAPENTIN 300 MG CAPS 030619 GABAPENTIN Inactive FENTANYL 25 MCG/HR PT72 Apply to clean skin and change every 72 hours. 07/03 FENTANYL 25 MCG/HR PT72 340521 FENTANYL Inactive Advance Directives Directive Description Start Date ADVANCE DIRECTIVE Immunizations Vaccine Administration Date Value Standard Description influenza immunization (Flu Vax) has been administered Influenza - Unspecified Formulation [CVX88] influenza virus vaccine, unspecified formulation pneumococcal immunization administered Pneumovax 23 [CVX33] pneumococcal polysaccharide vaccine, 23 valent Vital Signs Date Name Value Unit Range Description blood pressure, diastolic - 8462-4 75 mm[Hg] [...] E&M - 3141-9 393 [lb_av] Weight Measured Diagnostic Results Date Name Value Unit Range Description Chart Maintenance: Outside labs entered on flowsheet - Chemistry aspartate aminotransferase (SGOT), serum 33 U/L alanine aminotransferase (SGPT), serum 42 U/L alkaline phosphatase, serum 60 U/L hemoglobin A1C, blood, as % of total hemoglobin 7.2 % creatinine, serum 0.85 mg/dL blood glucose 187 mg/dL potassium, serum 4.6 mmol/L sodium, serum 144 mmol/L sodium, serum 143 mmol/L potassium, serum 3.9 mmol/L blood glucose 147 mg/dL sodium, serum 139 mmol/L alkaline phosphatase, serum 40 U/L potassium, serum 4.1 mmol/L blood glucose 190 mg/dL creatinine, serum 1.26 mg/dL aspartate aminotransferase (SGOT), serum 14 U/L alanine aminotransferase (SGPT), serum 23 U/L sodium, serum 139 mmol/L potassium, serum 4.8 mmol/L blood glucose 239 mg/dL creatinine, serum 1.17 mg/dL creatinine, serum 0.19 mg/dL aspartate aminotransferase (SGOT), serum 13 U/L alanine aminotransferase (SGPT), serum 13 U/L alkaline phosphatase, serum 51 U/L Chart Maintenance: Outside labs entered on flowsheet - Hematology hemoglobin, blood 14.4 g/dL platelet count 113 10*3/mm3 leukocyte count, blood 6.9 10*3/mm3 Lab Report: HGBA1C - Chemistry hemoglobin A1C, blood, as % of total hemoglobin 6.8 % 4.3-6.0 Encounters Code Encounter Date Provider Facility CPT-52516 Level 3 Est. Patient 19:05:03 CDT Jonel Hemphill MD [facility] CPT-68517 Level 3 Est. Patient 17:30:47 CDT Kevin Link MD [facility] CPT-25906 Level 3 Est. Patient 18:04:07 CDT Jonel Hemphill MD [facility] CPT-39271 Level 3 Est. Patient 17:18:03 CDT Jonel Hemphill MD [facility] CPT-22507 Level 3 Est. Patient 21:58:03 EMT B Jonel Hemphill MD [facility] CPT-84400 Level 4 Est. Patient 18:03:14 CDT [facility]-26319 Level 4 Est. Patient 13:24:53 CDT Jonel Hemphill MD [facility]-63440 Level 4 Est. Patient 09:15:44 CDT Jonel Hemphill MD [facility]-80161 Level 4 Est. Patient 19:16:01 CDT Jonel Hemphill MD [facility]-67269 Level 4 Est. Patient 11:25:16 CDT Jonel Hemphill MD [facility] CPT-58843 Level 4 Est. Patient 09:00:40 CDT Jonel Hemphill MD [facility]-91609 Level 4 Est. Patient 14:53:58 CDT Jonel Hemphill MD [facility]-62809 Level 4 Est. Patient 22:59:01 CDT Jonel Hemphill MD [facility]-59217 Level 4 Est. Patient 09:29:57 CDT Jonel Hemphill MD [facility]-68960 Level 4 Est. Patient 12:35:53 EMT B Jonel Hemphill MD [facility]-01905 Level 4 Est. Patient 22:36:09 EMT B Jonel Hemphill MD [facility]-34577 Level 2 Est. Patient 15:14:15 EMT B Mayco Shah APRN [facility] CPT-14522 Level 4 Est. Patient 10:36:22 EMT B Jonel Hemphill MD [facility] CPT-36798 Level 4 Est. Patient 22:01:13 EMT B Jonel Hemphill MD [facility]-29665 Level 3 Est. Patient 21:50:37 EMT B Jonel Hemphill MD [facility] CPT-72272 Level 4 Est. Patient 15:02:43 CDT Rubin Pierre MD [facility] CPT-58531 Level 4 Est. Patient 14:27:35 CDT Jonel Hemphill MD [facility] CPT-68740 Level 4 Est. Patient 12:41:17 CDT Jonel Hemphill MD [facility] CPT-30925 Level 4 Est. Patient 16:18:55 CDT Jonel Hemphill MD [facility] CPT-47423 Level 4 Est. Patient 17:58:05 CDT Jonel Hemphill MD [facility] CPT-72622 Level 4 Est. Patient 22:10:06 CDT Jonel Hemphill MD [facility] CPT-29905 Level 4 Est. Patient 13:22:09 CDT Jonel Hemphill MD [facility]-55504 Level 4 Est. Patient 22:52:17 EMT B Jonel Hemphill MD [facility]-66621 Level 3 Est. Patient 22:34:10 EMT B Jonel Hemphill MD [facility]-49528 Level 4 Est. Patient 07:49:20 EMT B Jonel Hemphill MD [facility] Skilled CPT-46706 Level 3 Est. Patient 08:28:27 EMT B Jonel Hemphill MD [facility] Procedures Code Procedure Name Date Entry Date Standard Description CPT-16797 Level 3 Prison 17:42:11 CDT CPT-20691 Level 3 Prison 16:04:10 CDT CPT-65593 Level 3 Prison 19:38:15 EMT B CPT-28741 Level 3 Prison 19:28:48 EMT B CPT-41620 Level 3 Prison 18:02:20 EMT B CPT-00655 Level 3 Prison 15:02:14 EMT B CPT-47360 Level 3 Prison 12:25:37 CDT CPT-54426 Level 3 Prison 12:48:39 CDT CPT-73941 Level 3 Prison 17:39:14 CDT CPT-13927 Level 3 Prison 13:32:58 CDT CPT-90649 Level 3 Prison 17:43:43 CDT CPT-29402 Level 3 Prison 12:03:33 EMT B CPT-40696 Level 3 Prison 18:47:28 EMT B CPT-38662 Level 3 Prison 17:35:26 EMT B CPT-06445 Level 3 Prison 18:44:49 EMT B CPT-47201 Level 3 Prison 18:17:33 CDT CPT-86761 Level 3 Prison 09:25:33 CDT CPT-42325 Level 3 Prison 19:11:57 CDT CPT-06619 Level 3 Prison 09:25:52 CDT CPT-54438 Level 3 Prison 14:23:59 CDT CPT-93902 Level 3 Prison 12:09:43 CDT CPT-36954 Level 3 Prison 09:37:40 CDT CPT-21268 Level 3 Prison 18:23:02 CDT CPT-06247 Level 3 Prison 14:09:06 CDT CPT-58404 Level 3 Prison 12:43:27 EMT B CPT-32530 Postop F/U Visit 14:10:15 EMT B CPT-19224 [facility] 17:07:14 EMT B CPT-74423 Level 3 Prison 16:14:37 EMT B CPT-28458 Port a cath flush 11:47:42 CDT CPT-24640 Port a cath flush 08:29:49 CDT CPT-OV Office Visit 14:27:58 EMT B
--- OUTSIDE RECORDS SUMMARY | 2016-08-07 10:43 | XMS REPORT | Clinical Summary ---
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 Jonel Hemphill MD Long-term (current) use of other medications C V A / STROKE 436 Active TREY PerezA Acute, but ill-defined, cerebrovascular disease C O [...] Coronary atherosclerosis of unspecified type of vessel, jamul or graft FH DIABETES V18.0 Resolved Jonel [...] Coronary atherosclerosis of unspecified type of vessel, jamul or graft CONSTIPATION 564.00 Resolved Jonel Hemphill [...] prosthetic device, implant, and graft 996.69 Resolved Jnoel Hemphill MD Infection and inflammatory reaction due [...] 786.52 Active Jonel Hemphill MD Painful respiration Accidental fall E888.9 Active Jonel Hemphill MD Unspecified fall 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 USE, ELEMENTARY ART TEACHER ICD-V58.69 Inactive Jonel Hemphill MD DIABETES, TYPE [...] ICD-584.9 Inactive Jonel Hemphill MD HYPERKALEMIA ICD-276.7 Malina Hemphill MD 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 Malina Hemphill MD LOOSE STOOLS ICD-787.91 Malina Hemphill MD RENAL INSUFFICIENCY ICD-585.9 Malina Hemphill MD CHRONIC KIDNEY DISEASE UNSPECIFIED ICD-585.9 Malina Hemphill MD Infection and inflammatory reaction due to other internal prosthetic device, implant, 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 Malina Hemphill MD AFTERCARE FOLLOW SURGERY SKIN&SUBCUT TISSUE NEC ICD-V58.77 05/30 Inactive Jonel Hemphill MD Dysuria ICD-788.1 Inactive Jonel Hemphill MD 2013 Other malaise and fatigue ICD-780.79 Malina Hemphill MD Malaise and fatigue ICD-780.79 Inactive Jonel Hemphill MD Nightmares ICD-307.47 Inactive Jonel Hemphill MD Bronchitis-Acute ICD-466.0 Inactive Jonel Hemphill MD Cellulitis, leg, right ICD-682.6 Inactive Jonel Hemphill MD Flank pain, right ICD-789.09 Inactive Jonel Hemphill MD Medication List Medication Instructions Start Date Stop Date Generic Name NDC Status Provider Patient Instruction ZOFRAN 4 MG TABS 1 po q6hr PRN Nausea ONDANSETRON HCL 73367441885 Active Jonel Hemphill MD Active XARELTO 20 MG ORAL TABS 1 daily RIVAROXABAN 65944093829 Active Jonel Hemphill MD Active JANUVIA 100 MG ORAL TABS 2 tabs daily SITAGLIPTIN PHOSPHATE 59174846618 Active Jonel Hemphill MD Active CELEXA 20 MG TABS Take 1 tablet 1x daily CITALOPRAM HYDROBROMIDE 56286760814 No Longer Active Jonel Hemphill MD Active ATIVAN 0.5 MG TABS Take 1 tablet 2x daily PRN LORAZEPAM 11762503738 No Longer Active Jonel Hemphill MD Active FUROSEMIDE 80 MG ORAL TABS 1 daily FUROSEMIDE 83166811786 Active Jonel Hemphill MD Active MECLIZINE HCL 25 MG CHEW TAB 1 four times a day as needed for dizziness 02/21 MECLIZINE HCL 22784701219 No Longer Active Jonel Hemphill MD Active ZYLOPRIM 300 MG TAB 1 BY MOUTH DAILY ALLOPURINOL 89342010614 No Longer Active Jonel Hemphill MD Active METOPROLOL TARTRATE 50 MG ORAL TABS 1 TAB BY MOUTH TWICE DAILY METOPROLOL TARTRATE 53948888806 No Longer Active Jonel Hemphill MD Active GABAPENTIN 400 MG ORAL CAPS 1 TAB BY MOUTH THREE TIMES DAILY 2015 GABAPENTIN 24621667863 No Longer Active Jonel Hemphill MD Active ULORIC 40 MG ORAL TABS 1 daily for gout. FEBUXOSTAT 60122255355 Active Marleni Romero Active HYDROCODONE-ACETAMINOPHEN 7.5-325 MG TABS 1 TAB PO Q 6 HRS PRN HYDROCODONE-ACETAMINOPHEN 27273924645 Active Jonel Hemphill MD Active METFORMIN HCL 1000 MG TABS 1 tablet by mouth twice daily METFORMIN HCL 36769784460 Active Marleni Romero Active FENTANYL 12 MCG/HR PT72 Apply to clean, dry skin and change every 72 hours FENTANYL 66888953390 Active Jonel Hemphill MD Active KLOR-CON 20 MEQ ORAL PACK 1 BY MOUTH DAILY POTASSIUM CHLORIDE 39442724581 Active Marleni Romero Active A+D FIRST AID EXT OINT APPLY OINTMENT AND RUFINO WRAPS TO LOWER EXTEREMETIES DAILY SKIN PROTECTANTS, MISC. 43428256651 Active Jonel Hemphill MD Active NYSTATIN 466009 UNIT/GM EXT OINT APPLY PRN TID TO GAULDING/RASH IN ABDOMINAL FOLDS NYSTATIN 20416647666 Active Jonel Hemphill MD Active GABAPENTIN 300 MG CAPS 1 CAP PO TID GABAPENTIN 27173380750 No Longer Active Jonel Hemphill MD Active DILANTIN 100 MG ORAL CAPS 1 THREE TIMES DAILY FOR SEIZURES PHENYTOIN SODIUM EXTENDED 95384160663 Active Marleni Romero Active CPAP APPLY AT HS CPAP Active Jonel Hemphill MD Active LISINOPRIL 40 MG TABS 1 tablet by mouth twice daily, for blood pressure 03/31 LISINOPRIL 34881685490 Active Jonel Hemphill MD Active BUPROPION HCL ER (SR) 150 MG [id number] 1 twice a day for depression BUPROPION HCL 99415755845 Active Jonel Hemphill MD Active MULTIVITAMINS CAPS 1 DAILY MULTIPLE VITAMIN 61838037543 Active Jonel Hemphill MD Active HYDROCODONE-ACETAMINOPHEN 7.5-325 MG TABS 1 q 6 hrs prn HYDROCODONE-ACETAMINOPHEN 25045083569 No Longer Active Jonel Hemphill MD Active DILANTIN 100 MG CAPS 3 cap tid PHENYTOIN SODIUM EXTENDED 69358753247 No Longer Active Jonel Hemphill MD Active BUDEPRION SR 150 MG [id number] 1 bid BUPROPION HCL 96672178315 No Longer Active Jonel Hemphill MD Active ALLOPURINOL 300 MG TABS 1 qd ALLOPURINOL 26908885034 No Longer Active Jonel Hemphill MD Active COZAAR 100 MG TABS 1 qd LOSARTAN POTASSIUM 71388381176 No Longer Active Jonel Hemphill MD Active CVS VITAMIN C 500 MG TABS 1 po daily ASCORBIC ACID 34974689035 No Longer Active Jonel Hemphill MD Active MIRALAX POWD 17 gms in 4 oz water or juice daily POLYETHYLENE GLYCOL 3350 32243128145 No Longer Active Jonel Hemphill MD Active POTASSIUM CHLORIDE CHELA ER 20 MEQ CR-TABS 1 tab PO daily POTASSIUM CHLORIDE CHELA CR 98252740433 No Longer Active Jonel Hemphill MD Active AMBIEN 10 MG TAB 1 tab by mouth at bedtime as needed for sleep ZOLPIDEM TARTRATE 60804425494 No Longer Active Jonel Hemphill MD Active SULFAMETHOXAZOLE-TMP DS 800-160 MG TABS 1 TAB PO BID SULFAMETHOXAZOLE-TRIMETHOPRIM 19186885799 No Longer Active Jonel Hemphill MD Active NORCO 5-325 MG TABS 1-2 TAB Q 6 HRS PRN HYDROCODONE- ACETAMINOPHEN 20646435087 Active Jonel Hemphill MD Active LEVEMIR 100 UNIT/ML SOLN 5 units sub-q at bedtime INSULIN DETEMIR 21180495128 No Longer Active Tova Perez Active MOBIC 15 MG TABS 1 tab PO daily for arthritis pain MELOXICAM 09419114029 No Longer Active Tova Perez Active GLUCAGEN 1 MG SOLR INJECT 1MG IM IF BS LESS THAN 60 & RES. IS UNABLE TO SWALLOW GLUCAGON HCL (RDNA) 90437356988 No Longer Active Tova Perez Active [facility]S MILK OF MAGNESIA 1200 MG/15ML SUSP 30 ml daily for constipation MAGNESIUM HYDROXIDE 75553497192 No Longer Active Tova Perez Active IMDUR 120 MG [id number] 1 qd ISOSORBIDE MONONITRATE 16887045239 No Longer Active Tova Perez Active PHENYTOIN 50 MG CHEW 1 TAB PO BID PHENYTOIN 21285267115 Active Tova Peerz Active NEURONTIN 400 MG CAPS Take one by mouth 3 times daily, morning, afternoon and evening.] GABAPENTIN 26449629794 No Longer Active Toav Perez Active ANTIVERT 25 MG TABS 1 q 6 hrs prn MECLIZINE HCL 40109528046 No Longer Active Jonel Hemphill MD Active CLONIDINE HCL 0.2 MG TABS 1 q 8 hrs as needed -greater than 160-htn CLONIDINE HCL 57771297242 No Longer Active Jonel Hemphill MD Active AMBIEN 10 MG TABS 1 q hs prn ZOLPIDEM TARTRATE 63158527969 No Longer Active Jonel Hemphill MD Active GNP THERAPEUTIC-M TABS 1 qd MULTIPLE VITAMINS- MINERALS 32108870540 No Longer Active Jonel Hemphill MD Active METOPROLOL TARTRATE 50 MG TABS 1 bid METOPROLOL TARTRATE 56357410959 No Longer Active Jonel Hemphill MD Active METFORMIN HCL 500 MG TABS 1 bod with food METFORMIN HCL 18644400146 No Longer Active Jonel Hemphill MD Active LISINOPRIL 40 MG TABS 1 qd LISINOPRIL 02434619386 No Longer Active Jonel Hemphill MD Active HYDROCHLOROTHIAZIDE 25 MG TABS 1 qd HYDROCHLOROTHIAZIDE 59024140732 No Longer Active Jonel Hemphill MD Active DURAGESIC-25 25 MCG/HR PT72 place 1 patch on the skin q72hrs for pain FENTANYL 85293708446 No Longer Active Jonel Hemphill MD Active FENTANYL 75 MCG/HR PT72 place 1 patch on skin q72hrs fr pain 2012 FENTANYL 31057898633 No Longer Active Jonel Hemphill MD Active FUROSEMIDE 40 MG TABS 1 q am FUROSEMIDE 41193570511 No Longer Active Jonel Hemphill MD Active HEPARIN (PORCINE) LOCK FLUSH 100 UNIT/ML SOLN Flush port a cath monthly every three week on with Heparin and NS HEPARIN LOCK FLUSH 02214122981 Active Jonel Hemphill MD Active FENTANYL 100 MCG/HR PT72 Apply every 3 days FENTANYL 40225063043 Active Jonel Hemphill MD Active FENTANYL 25 MCG/HR PT72 Apply to clean skin and change every 72 hours. 07/03 FENTANYL 83513279302 No Longer Active Jonel Hemphill MD Active FENTANYL 50 MCG/HR PT72 place 1 patch on skin q72 hours FENTANYL 80530384581 No Longer Active Mayco Shah APRN Active DURAGESIC-12 12 MCG/HR PT72 APPLY PATCH TO SKIN AND CHANGE EVERY 72 HOURS, ROTATE SITES FENTANYL 25384759260 No Longer Active Fozia HERNANDEZ Active FUROSEMIDE 20 MG TABS 1 qd FUROSEMIDE 65597344556 No Longer Active Mahogany Madison Active ADULT ASPIRIN EC LOW STRENGTH 81 MG TBEC 1 qd ASPIRIN 01519411890 Active MARY Perez Active FUROSEMIDE 20 MG TABS 1 qd FUROSEMIDE 20 MG TABS 150748 FUROSEMIDE Inactive DURAGESIC-12 12 MCG/HR PT72 APPLY PATCH TO SKIN AND CHANGE EVERY 72 HOURS, ROTATE SITES DURAGESIC-12 12 MCG/HR PT72 614752 FENTANYL Inactive FENTANYL 50 MCG/HR PT72 place 1 patch on skin q72 hours FENTANYL 50 MCG/HR PT72 994868 FENTANYL Inactive FUROSEMIDE 40 MG TABS 1 q am FUROSEMIDE 40 MG TABS 866913 FUROSEMIDE Inactive FENTANYL 75 MCG/HR PT72 place 1 patch on skin q72hrs fr pain 2012 FENTANYL 75 MCG/HR PT72 392989 FENTANYL Inactive DURAGESIC-25 25 MCG/HR PT72 place 1 patch on the skin q72hrs for pain DURAGESIC-25 25 MCG/HR PT72 641679 FENTANYL Inactive HYDROCHLOROTHIAZIDE 25 MG TABS 1 qd HYDROCHLOROTHIAZIDE 25 MG TABS 501171 HYDROCHLOROTHIAZIDE Inactive LISINOPRIL 40 MG TABS 1 qd LISINOPRIL 40 MG TABS 096912 LISINOPRIL Inactive METFORMIN HCL 500 MG TABS 1 bod with food METFORMIN HCL 500 MG TABS 395713 METFORMIN HCL Inactive METOPROLOL TARTRATE 50 MG TABS 1 bid METOPROLOL TARTRATE 50 MG TABS 001568 METOPROLOL TARTRATE Inactive GNP THERAPEUTIC-M TABS 1 qd GNP THERAPEUTIC-M TABS MULTIPLE VITAMINS-MINERALS Inactive AMBIEN 10 MG TABS 1 q hs prn AMBIEN 10 MG TABS 941342 ZOLPIDEM TARTRATE Inactive CLONIDINE HCL 0.2 MG TABS 1 q 8 hrs as needed -greater than 160-htn CLONIDINE HCL 0.2 MG TABS 500814 CLONIDINE HCL Inactive ANTIVERT 25 MG TABS 1 q 6 hrs prn ANTIVERT 25 MG TABS MECLIZINE HCL Inactive NEURONTIN 400 MG CAPS Take one by mouth 3 times daily, morning, afternoon and evening.] NEURONTIN 400 MG CAPS 348650 GABAPENTIN Inactive IMDUR 120 MG [id number] 1 qd IMDUR 120 MG [id number] ISOSORBIDE MONONITRATE Inactive CVS MILK OF MAGNESIA [...] for arthritis pain MOBIC 15 MG TABS 177895 MELOXICAM Inactive LEVEMIR 100 UNIT/ML SOLN 5 units sub-q at bedtime LEVEMIR 100 UNIT/ML SOLN INSULIN DETEMIR Inactive SULFAMETHOXAZOLE-TMP DS 800-160 MG TABS 1 TAB PO BID SULFAMETHOXAZOLE-TMP DS 800-160 MG TABS 590078 SULFAMETHOXAZOLE-TRIMETHOPRIM Inactive AMBIEN 10 MG TAB 1 tab by mouth at bedtime as needed for sleep AMBIEN 10 MG TAB 169146 ZOLPIDEM TARTRATE Inactive POTASSIUM CHLORIDE CHELA ER 20 MEQ CR-TABS 1 tab PO daily POTASSIUM CHLORIDE CHELA ER 20 MEQ CR-TABS POTASSIUM CHLORIDE CHELA CR Inactive MIRALAX POWD 17 gms in 4 oz water or juice daily MIRALAX POWD 876805 POLYETHYLENE GLYCOL 3350 Inactive CVS VITAMIN C 500 MG TABS 1 po daily CVS VITAMIN C 500 MG TABS 686447 ASCORBIC ACID Inactive COZAAR 100 MG TABS 1 qd COZAAR 100 MG TABS 289164 LOSARTAN POTASSIUM Inactive ALLOPURINOL 300 MG TABS 1 qd ALLOPURINOL 300 MG TABS 182080 ALLOPURINOL Inactive BUDEPRION SR 150 MG [id number] 1 bid BUDEPRION SR 150 MG [id number] BUPROPION HCL Inactive DILANTIN 100 MG CAPS 3 cap tid DILANTIN 100 MG CAPS 060910 PHENYTOIN SODIUM EXTENDED Inactive HYDROCODONE-ACETAMINOPHEN 7.5-325 MG TABS 1 q 6 hrs prn HYDROCODONE-ACETAMINOPHEN 7.5-325 MG TABS 174184 HYDROCODONE- ACETAMINOPHEN Inactive GABAPENTIN 300 MG CAPS 1 CAP PO TID GABAPENTIN 300 MG CAPS 044384 GABAPENTIN Inactive GABAPENTIN 400 MG ORAL CAPS 1 TAB BY MOUTH THREE TIMES DAILY 2015 GABAPENTIN 400 MG ORAL CAPS 932897 GABAPENTIN Inactive METOPROLOL TARTRATE 50 MG ORAL TABS 1 TAB BY MOUTH TWICE DAILY METOPROLOL TARTRATE 50 MG ORAL TABS 152290 METOPROLOL TARTRATE Inactive ZYLOPRIM 300 MG TAB 1 BY MOUTH DAILY ZYLOPRIM 300 MG TAB 330443 ALLOPURINOL Inactive MECLIZINE HCL 25 MG CHEW TAB 1 four times a day as needed for dizziness 02/21 MECLIZINE HCL 25 MG CHEW TAB 502567 MECLIZINE HCL Inactive ATIVAN 0.5 MG TABS Take 1 tablet 2x daily PRN ATIVAN 0.5 MG TABS 299026 LORAZEPAM Inactive CELEXA 20 MG TABS Take 1 tablet 1x daily CELEXA 20 MG TABS 105127 CITALOPRAM HYDROBROMIDE Inactive FENTANYL 25 MCG/HR PT72 Apply to clean skin and change every 72 hours. 07/03 FENTANYL 25 MCG/HR PT72 331562 FENTANYL Inactive Advance Directives Directive Description Start Date ADVANCE DIRECTIVE Immunizations Vaccine Administration Date Value Standard Description influenza immunization (Flu Vax) has been administered Influenza - Unspecified Formulation [CVX88] influenza virus vaccine, unspecified formulation pneumococcal immunization administered Pneumovax 23 [CVX33] pneumococcal polysaccharide vaccine, 23 valent Vital Signs Date Name Value Unit Range Description blood pressure, diastolic - 8462-4 71 mm[Hg] [...] 98.6 [degF] Body temperature weight E&M - 6301-9 339 [lb_av] Weight Measured blood pressure, diastolic [...] 97.8 [degF] Body temperature weight E&M - 3351-9 343 [lb_av] Weight Measured blood pressure, diastolic [...] 8867-4 75 /min Heart rate respiratory rate E& - 9279-1 18 /min Resp rate temperature E&M 97.3 [degF] Body temperature weight E&M - 3141-9 395.2 [lb_av] Weight Measured Diagnostic Results Date Name Value Unit Range Description Chart Maintenance: Outside labs entered on flowsheet - Chemistry sodium, serum 143 mmol/L potassium, serum 3.9 mmol/L blood glucose 147 mg/dL creatinine, serum 0.19 mg/dL aspartate aminotransferase (SGOT), serum 13 U/L alanine aminotransferase (SGPT), serum 13 U/L alkaline phosphatase, serum 51 U/L sodium, serum 139 mmol/L potassium, serum 4.1 mmol/L blood glucose 190 mg/dL creatinine, serum 1.26 mg/dL aspartate aminotransferase (SGOT), serum 14 U/L alanine aminotransferase (SGPT), serum 23 U/L alkaline phosphatase, serum 40 U/L sodium, serum 139 mmol/L potassium, serum 4.8 mmol/L blood glucose 239 mg/dL creatinine, serum 1.17 mg/dL Chart Maintenance: Outside labs entered on flowsheet - Hematology leukocyte count, blood 6.9 10*3/mm3 hemoglobin, blood 14.4 g/dL platelet count 113 10*3/mm3 Encounters Code Encounter Date Provider Facility CPT-30610 Level 3 Est. Patient 19:05:03 CDT Jonel Hemphill MD [facility] [place]-03401 Level 3 Est. Patient 17:30:47 CDT Kevin Link MD [facility] [place]-98019 Level 3 Est. Patient 18:04:07 CDT Jonel Hemphill MD [facility] CPT-57803 Level 3 Est. Patient 17:18:03 CDT Jonel Hemphill MD [facility] CPT-11229 Level 3 Est. Patient 21:58:03 JAVA ANALYST Jonel Hemphill MD [facility]-55059 Level 4 Est. Patient 18:03:14 CDT Joenl Yeager [facility]-54349 Level 4 Est. Patient 13:24:53 CDT Jonel Hemphill MD [facility]-88161 Level 4 Est. Patient 09:15:44 CDT Jonel Hemphill MD [facility]-09717 Level 4 Est. Patient 19:16:01 CDT Jonel Yeager [facility]-40573 Level 4 Est. Patient 11:25:16 CDT Jonel Hemphill MD [facility] CPT-82882 Level 4 Est. Patient 09:00:40 CDT Jonel Yeager [facility]-88767 Level 4 Est. Patient 14:53:58 CDT Jonel Hemphill MD [facility] CPT-22598 Level 4 Est. Patient 22:59:01 CDT Jonel Hemphill MD [facility]-64649 Level 4 Est. Patient 09:29:57 CDT Jonel Hemphill MD [facility]-81206 Level 4 Est. Patient 12:35:53 JAVA ANALYST Jonel Hemphill MD [facility]-93101 Level 4 Est. Patient 22:36:09 JAVA ANALYST Jonel Hemphill MD [facility]-65253 Level 2 Est. Patient 15:14:15 JAVA ANALYST Mayco Shah APRN [facility] CPT-00832 Level 4 Est. Patient 10:36:22 JAVA ANALYST Jonel Hemphill MD [facility] CPT-19992 Level 4 Est. Patient 22:01:13 JAVA ANALYST Jonel Hemphill MD [facility]-01304 Level 3 Est. Patient 21:50:37 JAVA ANALYST Jonel Hemphill MD [facility] CPT-22433 Level 4 Est. Patient 15:02:43 CDT Rubin Pierre MD [facility] CPT-42475 Level 4 Est. Patient 14:27:35 CDT Jonel Hemphill MD [facility]-93948 Level 4 Est. Patient 12:41:17 CDT Jonel Hemphill MD [facility]-26292 Level 4 Est. Patient 16:18:55 CDT Jonel Hemphill MD [facility]-07551 Level 4 Est. Patient 17:58:05 CDT Jonel Hemphill MD [facility]-94747 Level 4 Est. Patient 22:10:06 CDT Jonel Hemphill MD [facility]-14274 Level 4 Est. Patient 13:22:09 CDT Jonel Hemphill MD [facility]-17074 Level 4 Est. Patient 22:52:17 JAVA ANALYST Jonel Hemphill MD [facility]-32551 Level 3 Est. Patient 22:34:10 JAVA ANALYST Jonel Hemphill MD [facility]-65241 Level 4 Est. Patient 07:49:20 JAVA ANALYST Jonel Hemphill MD [facility] CPT-58609 Level 3 Est. Patient 08:28:27 JAVA ANALYST Jonel Hemphill MD [facility] Procedures Code Procedure Name Date Entry Date Standard Description CPT-72181 Level 3 [facility] 19:03:14 CDT CPT-15040 Level 3 [facility] 17:42:11 CDT CPT-39298 Level 3 [facility] 16:04:10 CDT CPT-37657 Level 3 [facility] 19:38:15 JAVA ANALYST CPT-72036 Level 3 [facility] 19:28:48 JAVA ANALYST CPT-94101 Level 3 [facility] 18:02:20 JAVA ANALYST CPT-55594 Level 3 [facility] 15:02:14 JAVA ANALYST CPT-88570 Level 3 [facility] 12:25:37 CDT CPT-38165 Level 3 [facility] 12:48:39 CDT CPT-00064 Level 3 [facility] 17:39:14 CDT CPT-83840 Level 3 [facility] 13:32:58 CDT CPT-87932 Level 3 [facility] 17:43:43 CDT CPT-81434 Level 3 [facility] 12:03:33 JAVA ANALYST CPT-06442 Level 3 [facility] 18:47:28 JAVA ANALYST CPT-74725 Level 3 [facility] 17:35:26 JAVA ANALYST CPT-83091 Level 3 [facility] 18:44:49 JAVA ANALYST CPT-05668 Level 3 [facility] 18:17:33 CDT CPT-18979 Level 3 [facility] 09:25:33 CDT CPT-77267 Level 3 [facility] 19:11:57 CDT CPT-45928 Level 3 [facility] 09:25:52 CDT CPT-52951 Level 3 [facility] 14:23:59 CDT CPT-54769 Level 3 [facility] 12:09:43 CDT CPT-78043 Level 3 [facility] 09:37:40 CDT CPT-70846 Level 3 [facility] 18:23:02 CDT CPT-56482 Level 3 [facility] 14:09:06 CDT CPT-30338 Level 3 [facility] 12:43:27 JAVA ANALYST CPT-02668 Postop F/U Visit 14:10:15 JAVA ANALYST CPT-19928 [facility] 17:07:14 JAVA ANALYST CPT-44436 Level 3 [facility] 16:14:37 JAVA ANALYST CPT-07596 Port a cath flush 11:47:42 CDT CPT-61423 Port a cath flush 08:29:49 CDT CPT-OV Office Visit 14:27:58 JAVA ANALYST
--- OUTSIDE RECORDS SUMMARY | 2016-08-07 10:45 | XMS REPORT | Clinical Summary ---
Author Author Admin, [place] [facility] Address Unknown Phone Allergies, Adverse Reactions, Alerts Allergy Name Reaction Description Start Date Severity Status Provider PENICILLIN Critical Active [place] Conditions or Problems Problem Name Problem Code Onset Date Status Entry Date Provider Comment Standard Description Annotate DIABETES MELLITUS, TYPE II, CONTROLLED 250.00 Active Jonel Hemphill MD Diabetes mellitus without mention of complication, type II or unspecified type, not stated as uncontrolled MORBID OBESITY 278.01 Active Jonel Hemphill MD Morbid obesity HYPERTENSION 401.1 Active Jonel Hemphill MD Benign essential hypertension 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 USE, CHCF V58.69 Resolved Jonel Hemphill MD Long-term (current) use of other medications C V A / STROKE 436 Active Gregor Tisha Acute, but ill- defined, cerebrovascular disease C O P D 496 Active [place] Tisha Chronic airway obstruction, not elsewhere classified DIABETES, TYPE 2 250.00 Resolved Jonel Hemphill MD Diabetes mellitus without mention of complication, type II or unspecified type, not stated as uncontrolled SEIZURE DISORDER 780.39 Active Gregor [place] Other convulsions CORONARY HEART DISEASE 414.00 Resolved Jonel Hemphill MD Coronary atherosclerosis of unspecified type of vessel, [place] or graft FH DIABETES V18.0 Resolved Jonel [...] Coronary atherosclerosis of unspecified type of vessel, [place] or graft CONSTIPATION 564.00 Resolved Jonel Hemphill [...] stages or arousal from sleep Bronchitis-Acute 466.0 Active Jonel Hemphill MD Acute bronchitis 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 USE, CHCF ICD-V58.69 Inactive Jonel Hemphill MD DIABETES, TYPE 2 ICD-250.00 Inactive Jonel Hemphill MD CORONARY HEART DISEASE ICD-414.00 Inactive Jonel Hemphill MD DIABETES ICD-V18.0 Inactive Jonel Hemphill MD STROKE ICD-V17.1 Inactive Jonel Hemphill MD FAMILY [...] Jonel Hemphill MD VENOUS STASIS ULCER ICD-454.0 Malina Hemphill MD RECTAL BLEEDING ICD-569.3 Inactive Jonel [...] ICD-276.7 Malina Hemphill MD 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 IS UNABLE TO SWALLOW GLUCAGON HCL (RDNA) 21268072106 No Longer Active Tova Perez Active [facility] MILK OF MAGNESIA 1200 MG/15ML SUSP 30 ml daily for constipation MAGNESIUM HYDROXIDE 60645569594 No Longer Active Tova Perez Active IMDUR 120 MG VT45G-XNG 1 qd ISOSORBIDE MONONITRATE 39588739459 No Longer Active Tova Perez Active METFORMIN HCL 500 MG TABS 1 tablet by mouth twice daily METFORMIN HCL 86590178471 Active Tova Perez Active SULFAMETHOXAZOLE-TMP DS 800-160 MG TABS 1 TAB PO BID SULFAMETHOXAZOLE-TRIMETHOPRIM 70293854995 Active Tova Perez Active PHENYTOIN 50 MG CHEW 1 TAB PO BID PHENYTOIN 33751846788 Active Tova [place] Active MECLIZINE HCL 25 MG CHEW TAB 1 four times a day as needed for dizziness 02/21 MECLIZINE HCL 05853909636 Active Tova Chris Active GABAPENTIN 300 MG CAPS 1 CAP PO TID GABAPENTIN 48845580448 Active Tova Chris Active NEURONTIN 400 MG CAPS Take one by mouth 3 times daily, morning, afternoon and evening.] GABAPENTIN 27407438543 No Longer Active Tova Chris Active AMBIEN 10 MG TAB 1 tab by mouth at bedtime as needed for sleep ZOLPIDEM TARTRATE 37386230699 Active Jonel Hemphill MD Active POTASSIUM CHLORIDE CHELA ER 20 MEQ CR-TABS 1 tab PO daily POTASSIUM CHLORIDE CHELA CR 30344770123 Active Jonel Hemphill MD Active ANTIVERT 25 MG TABS 1 q 6 hrs prn MECLIZINE HCL 40558231981 No Longer Active Jonel Hemphill MD Active CLONIDINE HCL 0.2 MG TABS 1 q 8 hrs as needed -greater than 160-htn CLONIDINE HCL 78741874036 No Longer Active Jonel Hemphill MD Active AMBIEN 10 MG TABS 1 q hs prn ZOLPIDEM TARTRATE 64965317374 No Longer Active Jonel Hemphill MD Active GNP THERAPEUTIC-M TABS 1 qd MULTIPLE VITAMINS- MINERALS 05912200799 No Longer Active Jonel Hemphill MD Active METOPROLOL TARTRATE 50 MG TABS 1 bid METOPROLOL TARTRATE 34122597529 No Longer Active Jonel Hemphill MD Active METFORMIN HCL 500 MG TABS 1 bod with food METFORMIN HCL 29155832893 No Longer Active Jonel Hemphill MD Active LISINOPRIL 40 MG TABS 1 qd LISINOPRIL 27003503892 No Longer Active Jonel Hemphill MD Active HYDROCHLOROTHIAZIDE 25 MG TABS 1 qd HYDROCHLOROTHIAZIDE 04007675547 No Longer Active Jonel Hemphill MD Active DURAGESIC-25 25 MCG/HR PT72 place 1 patch on the skin q72hrs for pain FENTANYL 75272814451 No Longer Active Jonel Hemphill MD Active FENTANYL 75 MCG/HR PT72 place 1 patch on skin q72hrs fr pain 2012 FENTANYL 82075468705 No Longer Active Jonel Hemphill MD Active LASIX 20 MG TABS 1 tab PO q morning FUROSEMIDE 51337323326 Active Jonel Hemphill MD Active FUROSEMIDE 40 MG TABS 1 q am FUROSEMIDE 07252117749 No Longer Active Jonel Hemphill MD Active HEPARIN (PORCINE) LOCK FLUSH 100 UNIT/ML SOLN Flush port a cath monthly every three week on with Heparin and NS HEPARIN LOCK FLUSH 91695710875 Active Jonel Hemphill MD Active FENTANYL 100 MCG/HR PT72 Apply every 3 days FENTANYL 36135767217 Active Jonel Hemphill MD Active FENTANYL 25 MCG/HR PT72 Apply to clean skin and change every 72 hours. 07/03 FENTANYL 11817626640 No Longer Active Jonel Hemphill MD Active FENTANYL 50 MCG/HR PT72 place 1 patch on skin q72 hours FENTANYL 97666162013 No Longer Active Mayco Shah APRN Active HYDROCODONE-ACETAMINOPHEN 7.5-325 MG TABS 1 q 6 hrs prn HYDROCODONE-ACETAMINOPHEN 28900277368 Active Jonel Hemphill MD Active ATIVAN 0.5 MG TABS Take 1 tablet 2x daily LORAZEPAM 46171348888 Active Jonel Hemphill MD Active CELEXA 20 MG TABS Take 1 tablet 1x daily CITALOPRAM HYDROBROMIDE 29638536068 Active Jonel Hemphill MD Active MIRALAX POWD 17 gms in 4 oz water or juice daily POLYETHYLENE GLYCOL 3350 17073357700 Active Rubin Pierre MD Active DURAGESIC-12 12 MCG/HR PT72 APPLY PATCH TO SKIN AND CHANGE EVERY 72 HOURS, ROTATE SITES FENTANYL 18167541541 No Longer Active Fozia HERNANDEZ Active [facility] VITAMIN C 500 MG TABS 1 po daily ASCORBIC ACID 36717204276 Active Mahogany [place] Active FUROSEMIDE 20 MG TABS 1 qd FUROSEMIDE 92805810671 No Longer Active Mahogany [place] Active ADULT ASPIRIN EC LOW STRENGTH 81 MG TBEC 1 qd ASPIRIN 79025928679 Active Gregor Quintanau Active DILANTIN 100 MG CAPS 3 cap tid PHENYTOIN SODIUM EXTENDED 57562145260 Active Gregorjaida [place] Active BUDEPRION SR 150 MG MT30V-HTP 1 bid BUPROPION HCL 15847395550 Active Gregor Giles Active ALLOPURINOL 300 MG TABS 1 qd ALLOPURINOL 23422707456 Active Gregor Giles Active COZAAR 100 MG TABS 1 qd LOSARTAN POTASSIUM 10544647668 Active Gregor Quintanau Active FUROSEMIDE 20 MG TABS 1 qd FUROSEMIDE 20 MG TABS 018275 FUROSEMIDE Inactive DURAGESIC-12 12 MCG/HR PT72 APPLY PATCH TO SKIN AND CHANGE EVERY 72 HOURS, ROTATE SITES DURAGESIC-12 12 MCG/HR PT72 065667 FENTANYL Inactive FENTANYL 50 MCG/HR PT72 place 1 patch on skin q72 hours FENTANYL 50 MCG/HR PT72 885446 FENTANYL Inactive FUROSEMIDE 40 MG TABS 1 q am FUROSEMIDE 40 MG TABS 175858 FUROSEMIDE Inactive FENTANYL 75 MCG/HR PT72 place 1 patch on skin q72hrs fr pain 2012 FENTANYL 75 MCG/HR PT72 180535 FENTANYL Inactive DURAGESIC-25 25 MCG/HR PT72 place 1 patch on the skin q72hrs for pain DURAGESIC-25 25 MCG/HR PT72 597240 FENTANYL Inactive HYDROCHLOROTHIAZIDE 25 MG TABS 1 qd HYDROCHLOROTHIAZIDE 25 MG TABS 339524 HYDROCHLOROTHIAZIDE Inactive LISINOPRIL 40 MG TABS 1 qd LISINOPRIL 40 MG TABS 510266 LISINOPRIL Inactive METFORMIN HCL 500 MG TABS 1 bod with food METFORMIN HCL 500 MG TABS 502273 METFORMIN HCL Inactive METOPROLOL TARTRATE 50 MG TABS 1 bid METOPROLOL TARTRATE 50 MG TABS 978360 METOPROLOL TARTRATE Inactive GNP THERAPEUTIC-M TABS 1 qd GNP THERAPEUTIC-M TABS MULTIPLE VITAMINS-MINERALS Inactive AMBIEN 10 MG TABS 1 q hs prn AMBIEN 10 MG TABS 251874 ZOLPIDEM TARTRATE Inactive CLONIDINE HCL 0.2 MG TABS 1 q 8 hrs as needed -greater than 160-htn CLONIDINE HCL 0.2 MG TABS 149523 CLONIDINE HCL Inactive ANTIVERT 25 MG TABS 1 q 6 hrs prn ANTIVERT 25 MG TABS MECLIZINE HCL Inactive NEURONTIN 400 MG CAPS Take one by mouth 3 times daily, morning, afternoon and evening.] NEURONTIN 400 MG CAPS 183405 GABAPENTIN Inactive IMDUR 120 MG [id number] 1 qd IMDUR 120 MG [id number]-GWB ISOSORBIDE MONONITRATE Inactive [facility] MILK OF MAGNESIA [...] for arthritis pain MOBIC 15 MG TABS 529621 MELOXICAM Inactive LEVEMIR 100 UNIT/ML SOLN 5 units sub-q at bedtime LEVEMIR 100 UNIT/ML SOLN INSULIN DETEMIR Inactive FENTANYL 25 MCG/HR PT72 Apply to clean skin and change every 72 hours. 07/03 FENTANYL 25 MCG/HR PT72 968095 FENTANYL Inactive Advance Directives Directive Description Start Date ADVANCE DIRECTIVE Immunizations Vaccine Administration Date Value Standard Description influenza immunization (Flu Vax) has been administered Influenza - Unspecified Formulation [CVX88] influenza virus vaccine, unspecified formulation pneumococcal immunization administered Pneumovax 23 [CVX33] pneumococcal polysaccharide vaccine, 23 valent Vital Signs Date Name Value Unit Range Description blood pressure, diastolic - 8462-4 80 mm[Hg] [...] E&M - 3141-9 375 [lb_av] Weight Measured blood pressure, diastolic - 8462-4 55 mm[Hg] BP augustin blood pressure, systolic - 8480-6 130 mm[Hg] BP sys pulse rate E&M - 8867-4 69 /min Heart rate respiratory rate E&M - 9279-1 20 /min Resp rate temperature E&M 97 [degF] Body temperature blood pressure, diastolic - 8462-4 80 mm[Hg] BP augustin blood pressure, systolic - 8480-6 122 mm[Hg] BP sys height E&M - 8302-2 68 [in_us] Bdy height pulse rate E&M - 8867-4 70 /min Heart rate temperature E&M 97.4 [degF] Body temperature weight E&M - 3141-9 391 [lb_av] Weight Measured Diagnostic Results Date Name Value Unit Range Description Chart Maintenance: Outside labs entered on [employer] - Chemistry sodium, serum 139 mmol/L potassium, [...] mg/dL Chart Maintenance: Outside labs entered on [employer] - Hematology leukocyte count, blood 5.7 10*3/mm3 [...] Basic Metabolic Panel - Chemistry sodium, serum 141 mmol/L 009-454 0723/07/01 potassium, serum 3.4 mmol/L 3.5-5.2 chloride, serum 104 mmol/L 98-107 carbon dioxide, venous blood 27.3 mmol/L 21.0-32.0 blood glucose 101 mg/dL 65-110 calcium, serum 8.9 mg/dL 8.5-10.1 urea nitrogen, blood 15 mg/dL 7-18 creatinine, serum 1.10 mg/dL 0.60-1.30 sodium, serum 141 mmol/L 110-495 7391/05/20 potassium, serum 5.7 mmol/L 3.5-5.2 chloride, serum 108 mmol/L 98-107 carbon dioxide, venous blood 20.4 mmol/L 21.0-32.0 blood glucose 147 mg/dL 65-110 calcium, serum 8.8 mg/dL 8.5-10.1 urea nitrogen, blood 68 mg/dL 7-18 creatinine, serum 2.40 mg/dL 0.60-1.30 sodium, serum 140 mmol/L 042-201 7715/05/31 potassium, serum 5.5 mmol/L 3.5-5.2 chloride, serum 108 mmol/L 98-107 carbon dioxide, venous blood 22.8 mmol/L 21.0-32.0 blood glucose 88 mg/dL 65-110 calcium, serum 9.1 mg/dL 8.5-10.1 urea nitrogen, blood 47 mg/dL 7-18 creatinine, serum 1.70 mg/dL 0.60-1.30 sodium, serum 137 mmol/L 442-906 2357/06/05 potassium, serum 6.5 mmol/L 3.5-5.2 chloride, serum 105 mmol/L 98-107 carbon dioxide, venous blood 22.0 mmol/L 21.0-32.0 blood glucose 132 mg/dL 65-110 calcium, serum 8.7 mg/dL 8.5-10.1 urea nitrogen, blood 71 mg/dL 7-18 creatinine, serum 2.10 mg/dL 0.60-1.30 sodium, serum 137 mmol/L 148-976 9651/06/14 potassium, serum 7.1 mmol/L 3.5-5.2 chloride, serum 107 mmol/L 98-107 carbon dioxide, venous blood 18.7 mmol/L 21.0-32.0 blood glucose 153 mg/dL 65-110 calcium, serum 8.8 mg/dL 8.5-10.1 urea nitrogen, blood 82 mg/dL 7-18 creatinine, serum 2.50 mg/dL 0.60-1.30 Lab Report: CBC W/ DIFF [...] 14.9 % Lab Report: CBC W/ DIFF, [facility] - Chemistry sodium, serum 141 mmol/L potassium, serum 4.1 mmol/L chloride, serum 103 mmol/L carbon dioxide, venous blood 29.8 mmol/L urea nitrogen, blood 15 mg/dL blood glucose 121 mg/dL creatinine, serum 0.88 mg/dL calcium, serum 9.0 mg/dL Lab Report: CBC W/ DIFF, [facility] - Hematology leukocyte count, blood 5.0 10*3/mm3 [...] 10*3/mm3 142-424 Lab Report: CBC, Comp. Metabolic Panel - Chemistry sodium, serum 138 mmol/L 740-923 9035/05/24 potassium, serum 6.9 mmol/L 3.5-5.2 chloride, serum 106 mmol/L 98-107 carbon dioxide, venous blood 22.3 mmol/L 21.0-32.0 blood glucose 87 mg/dL 65-110 urea nitrogen, blood 60 mg/dL 7-18 creatinine, serum 2.00 mg/dL 0.60-1.30 alanine aminotransferase (SGPT), serum 42 U/L 12-78 aspartate aminotransferase (SGOT), serum 18 U/L 15-37 alkaline phosphatase, serum 88 U/L 50-136 calcium, serum 8.9 mg/dL 8.5-10.1 bilirubin, serum, total 0.14 mg/dL 0.00-1.00 sodium, serum 136 mmol/L 373-825 6615/05/17 potassium, serum 6.4 mmol/L 3.5-5.2 chloride, serum 105 mmol/L 98-107 carbon dioxide, venous blood 20.7 mmol/L 21.0-32.0 blood glucose 115 mg/dL 65-110 urea nitrogen, blood 90 mg/dL 7-18 creatinine, serum 2.40 mg/dL 0.60-1.30 alanine aminotransferase (SGPT), serum 32 U/L 12-78 aspartate aminotransferase (SGOT), serum 11 U/L 15-37 alkaline phosphatase, serum 95 U/L 50-136 calcium, serum 8.8 mg/dL 8.5-10.1 bilirubin, serum, total 0.19 mg/dL 0.00-1.00 Lab Report: CBC, Comp. Metabolic Panel - Hematology leukocyte count, blood 6.2 UL 10*3/mm3 4.6-10.2 erythrocyte (RBC) count 3.10 UL 10*6/mm3 4.69-6.13 hemoglobin, blood 10.0 g/dL 13.5-17.5 hematocrit, blood 31.0 % 41.0-53.0 mean corpuscular volume, RBC 100 fL 80-97 mean corpuscular hemoglobin, RBC 32.3 pg 27.0-31.2 mean corpuscular hemoglobin concentration, RBC 32.3 G/DL % 31.8- 35.4 red blood cell distribution width 15.2 % 11.6-14.8 platelet count 129 Verified By Repeat Analysis uL 10*3/mm3 142- 424 leukocyte count, blood 6.2 UL 10*3/mm3 4.6-10.2 erythrocyte (RBC) count 2.88 UL 10*6/mm3 4.69-6.13 hemoglobin, blood 9.6 g/dL 13.5-17.5 hematocrit, blood 29.2 % 41.0-53.0 mean corpuscular volume, RBC 101 fL 80-97 mean corpuscular hemoglobin, RBC 33.2 pg 27.0-31.2 mean corpuscular hemoglobin concentration, RBC 32.7 G/DL % 31.8- 35.4 red blood cell distribution width 14.8 % 11.6-14.8 platelet count 159 UL 10*3/mm3 142-424 Lab Report: CBC, Comp. Metabolic Panel, HGBA1C, UADIP W/MICRO, AUTO, MAY ... - Chemistry sodium, serum 142 mmol/L 917-007 2803/07/15 potassium, serum 3.9 mmol/L 3.5-5.2 chloride, serum [...] % of total hemoglobin 4.8 % 4.3-6.0 protein, total urine random Negative mg/dL Negative albumin/creatinine ratio, urine 30 - 300 mg/g mg/g{creat} 0-29 RBC, urine, dipstick Negative Negative Lab Report: [...] 1.020 1.000-1.030 pH, urine, semiquantitative 5.5 5.0-8.5 Lab Report: Comp. Metabolic Panel, UADIP W/MICRO, AUTO - Chemistry protein, total urine random Negative mg/dL Negative RBC, urine, dipstick Negative Negative sodium, serum 140 mmol/L 656-990 5718/02/18 potassium, serum 3.8 mmol/L 3.5-5.2 chloride, serum [...] 8.5-10.1 bilirubin, serum, total 0.40 mg/dL 0.00-1.00 Lab Report: Comp. Metabolic Panel, UADIP W/MICRO, AUTO - Urinalysis urine color Yellow Colorless;Lightyellow;Straw;Yellow appearance, urine Clear Clear specific gravity, urine 1.025 1.000-1.030 pH, urine, semiquantitative 6.0 5.0-8.5 urobilinogen, urine, semiquantitative (dipstick) 0.2 Normal leukocyte esterase, urine, by dipstick Negative Negative nitrite, urine, semiquantitative Negative Negative glucose, urine, semiquantitative Negative Negative ketones, urine, by test strip Negative Negative bilirubin, urine Negative Negative Lab Report: Comp. Metabolic Panel, Uric Acid - Chemistry sodium, serum 141 mmol/L 013-229 4408/06/11 potassium, serum 5.9 mmol/L 3.5-5.2 chloride, serum [...] Report: MICROALBUMIN, UADIP W/MICRO, AUTO - Chemistry RBC, urine, dipstick Negative Negative albumin/creatinine ratio, urine < 30 mg/g mg/g{creat} 0-29 protein, total urine random Negative mg/dL Negative Lab Report: MICROALBUMIN, UADIP W/MICRO, AUTO [...] phenytoin level, serum <2.5 mg/L ug/mL 10.0-20.0 phenytoin level, serum 19.1 ug/mL 10.0-20.0 Encounters Code Encounter Date Provider Facility CPT-80263 Level 3 Est. Patient 21:58:03 CLERICAL SECRETARY Jonel Hemphill MD [facility] CPT-77776 Level 4 Est. Patient 18:03:14 CDT Jonel Hemphill MD [facility]-16461 Level 4 Est. Patient 13:24:53 CDT Jonel Hemphill MD [facility]-85129 Level 4 Est. Patient 09:15:44 CDT Jonel Hemphill MD [facility]-30106 Level 4 Est. Patient 19:16:01 CDT Jonel Hemphill MD [facility]-45496 Level 4 Est. Patient 11:25:16 CDT Jonel Hemphill MD [facility]-37361 Level 4 Est. Patient 09:00:40 CDT Jonel Hemphill MD [facility]-70723 Level 4 Est. Patient 14:53:58 CDT Jonel Hemphill MD [facility]-46345 Level 4 Est. Patient 22:59:01 CDT Jonel Hemphill MD [facility]-29283 Level 4 Est. Patient 09:29:57 CDT Jonel Hemphill MD [facility]-96540 Level 4 Est. Patient 12:35:53 CLERICAL SECRETARY Jonel Hemphill MD [facility]-58909 Level 4 Est. Patient 22:36:09 CLERICAL SECRETARY Jonel Hemphill MD [facility]-89883 Level 2 Est. Patient 15:14:15 CLERICAL SECRETARY Mayco Shah APRN [facility] CPT-68530 Level 4 Est. Patient 10:36:22 CLERICAL SECRETARY Jonel Hemphill MD [facility] CPT-79002 Level 4 Est. Patient 22:01:13 CLERICAL SECRETARY Jonel Hemphill MD [facility]-15848 Level 3 Est. Patient 21:50:37 CLERICAL SECRETARY Jonel Hemphill MD [facility] CPT-14063 Level 4 Est. Patient 15:02:43 CDT Rubin Pierre MD [facility] CPT-94498 Level 4 Est. Patient 14:27:35 CDT Jonel Hemphill MD [facility]-05778 Level 4 Est. Patient 12:41:17 CDT Jonel Hemphill MD [facility]-55577 Level 4 Est. Patient 16:18:55 CDT Jonel Hemphill MD [facility]-44237 Level 4 Est. Patient 17:58:05 CDT Jonel Hemphill MD [facility] CPT-24212 Level 4 Est. Patient 22:10:06 CDT Jonel Hemphill MD [facility]-95032 Level 4 Est. Patient 13:22:09 CDT Jonel Hemphill MD [facility] CPT-96420 Level 4 Est. Patient 22:52:17 CLERICAL SECRETARY Jonel Hemphill MD [facility]-18290 Level 3 Est. Patient 22:34:10 CLERICAL SECRETARY Jonel Hemphill MD [facility]-28482 Level 4 Est. Patient 07:49:20 CLERICAL SECRETARY Jonel Hemphill MD [facility] CPT-14417 Level 3 Est. Patient 08:28:27 CLERICAL SECRETARY Jonel Hemphill MD [facility] Procedures Code Procedure Name Date Entry Date Standard Description CPT-24364 [facility] Jail 09:37:40 CDT CPT-84145 Level 3 Jail 18:23:02 CDT CPT-47867 Level 3 Jail 14:09:06 CDT CPT-32718 Level 3 Jail 12:43:27 CLERICAL SECRETARY CPT-59238 Postop F/U Visit 14:10:15 CLERICAL SECRETARY CPT-73087 [facility] 17:07:14 CLERICAL SECRETARY CPT-07921 Level 3 Jail 16:14:37 CLERICAL SECRETARY CPT-17437 Port a cath flush 11:47:42 CDT CPT-51414 Port a cath flush 08:29:49 CDT CPT-OV Office Visit 14:27:58 CLERICAL SECRETARY
--- OUTSIDE RECORDS SUMMARY | 2016-08-07 10:46 | XMS REPORT | Clinical Summary ---
Author Author Admin, KARLAE Organization [facility] Address Unknown Phone Unavailable Allergies, Adverse 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, SECURITY SME V58.69 Resolved Jonel Hemphill MD Long-term (current) [...] Coronary atherosclerosis of unspecified type of vessel, resighini or graft FH DIABETES V18.0 Resolved Jonel [...] Coronary atherosclerosis of unspecified type of vessel, resighini or graft CONSTIPATION 564.00 Resolved Jonel Hemphill [...] Hemphill MD Pain in or around eye 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 USE, SECURITY SME ICD-V58.69 Inactive Jonel Hemphill MD DIABETES, TYPE 2 ICD-250.00 Inactive Jonel Hemphill MD CORONARY HEART DISEASE ICD-414.00 Inactive Jonel Hemphill MD FH DIABETES ICD-V18.0 Inactive Jonel Hemphill MD FH STROKE ICD-V17.1 Inactive Jonel Hemphill MD FAMILY HISTORY COLON CANCER-MOTHER ICD-V16.0 Inactive Jonel Hemphlil MD VENOUS INSUFFICIENCY ICD-459.81 Inactive Jonel Hemphill [...] TAB Q 6 HRS PRN HYDROCODONE- ACETAMINOPHEN 21538472822 Active Jonel Hemphill MD Active LEVEMIR 100 UNIT/ML SOLN 5 units sub-q at bedtime INSULIN DETEMIR 51688082838 No Longer Active Tova Perez Active MOBIC 15 MG TABS 1 tab PO daily for arthritis pain MELOXICAM 78320393626 No Longer Active Tova Perez Active GLUCAGEN 1 MG SOLR INJECT 1MG IM IF BS LESS THAN 60 & RES. IS UNABLE TO SWALLOW GLUCAGON HCL (RDNA) 49634956744 No Longer Active Tova Perez Active [facility] MILK OF MAGNESIA 1200 MG/15ML SUSP 30 ml daily for constipation MAGNESIUM HYDROXIDE 21842165204 No Longer Active Tova Perez Active IMDUR 120 MG [id number] 1 qd ISOSORBIDE MONONITRATE 59809333737 No Longer Active Toav Perez Active METFORMIN HCL 500 MG TABS 1 tablet by mouth twice daily METFORMIN HCL 09155912797 Active Tova Perez Active SULFAMETHOXAZOLE-TMP DS 800-160 MG TABS 1 TAB PO BID SULFAMETHOXAZOLE-TRIMETHOPRIM 00515708207 Active Tova Perez Active PHENYTOIN 50 MG CHEW 1 TAB PO BID PHENYTOIN 86055761053 Active Tova Perez Active MECLIZINE HCL 25 MG CHEW TAB 1 four times a day as needed for dizziness 02/21 MECLIZINE HCL 74111463004 Active Tova Perez Active GABAPENTIN 300 MG CAPS 1 CAP PO TID GABAPENTIN 53814836056 Active Tova Perez Active NEURONTIN 400 MG CAPS Take one by mouth 3 times daily, morning, afternoon and evening.] GABAPENTIN 27058305496 No Longer Active Tova Perez Active AMBIEN 10 MG TAB 1 tab by mouth at bedtime as needed for sleep ZOLPIDEM TARTRATE 57607945210 Active Jonel Hemphill MD Active POTASSIUM CHLORIDE CHELA ER 20 MEQ CR-TABS 1 tab PO daily POTASSIUM CHLORIDE CHELA CR 76401313256 Active Jonel Hemphill MD Active ANTIVERT 25 MG TABS 1 q 6 hrs prn MECLIZINE HCL 58619018885 No Longer Active Jonel Hemphill MD Active CLONIDINE HCL 0.2 MG TABS 1 q 8 hrs as needed -greater than 160-htn CLONIDINE HCL 26222368866 No Longer Active Jonel Hemphill MD Active AMBIEN 10 MG TABS 1 q hs prn ZOLPIDEM TARTRATE 10091695497 No Longer Active Jonel Hemphill MD Active GNP THERAPEUTIC-M TABS 1 qd MULTIPLE VITAMINS- MINERALS 99841865473 No Longer Active Jonel Hemphill MD Active METOPROLOL TARTRATE 50 MG TABS 1 bid METOPROLOL TARTRATE 23781544376 No Longer Active Jonel Hemphill MD Active METFORMIN HCL 500 MG TABS 1 bod with food METFORMIN HCL 41138854056 No Longer Active Jonel Hemphill MD Active LISINOPRIL 40 MG TABS 1 qd LISINOPRIL 12749777848 No Longer Active Jonel Hemphill MD Active HYDROCHLOROTHIAZIDE 25 MG TABS 1 qd HYDROCHLOROTHIAZIDE 80831674802 No Longer Active Jonel Hemphill MD Active DURAGESIC-25 25 MCG/HR PT72 place 1 patch on the skin q72hrs for pain FENTANYL 16560163114 No Longer Active Jonel Hemphill MD Active FENTANYL 75 MCG/HR PT72 place 1 patch on skin q72hrs fr pain 2012 FENTANYL 73752034664 No Longer Active Jonel Hemphill MD Active LASIX 20 MG TABS 1 tab PO q morning FUROSEMIDE 31662801083 Active Jonel Hemphill MD Active FUROSEMIDE 40 MG TABS 1 q am FUROSEMIDE 71536324430 No Longer Active Jonel Hemphill MD Active HEPARIN (PORCINE) LOCK FLUSH 100 UNIT/ML SOLN Flush port a cath monthly every three week on with Heparin and NS HEPARIN LOCK FLUSH 64596579611 Active Jonel Hemphill MD Active FENTANYL 100 MCG/HR PT72 Apply every 3 days FENTANYL 40656606820 Active Jonel Hemphill MD Active FENTANYL 25 MCG/HR PT72 Apply to clean skin and change every 72 hours. 07/03 FENTANYL 70239129931 No Longer Active Jonel Hemphill MD Active FENTANYL 50 MCG/HR PT72 place 1 patch on skin q72 hours FENTANYL 93034485269 No Longer Active Mayco Shah APRN Active HYDROCODONE-ACETAMINOPHEN 7.5-325 MG TABS 1 q 6 hrs prn HYDROCODONE-ACETAMINOPHEN 81722214554 Active Jonel Hemphill MD Active ATIVAN 0.5 MG TABS Take 1 tablet 2x daily LORAZEPAM 68338498405 Active Jonel Hemphill MD Active CELEXA 20 MG TABS Take 1 tablet 1x daily CITALOPRAM HYDROBROMIDE 88847977188 Active Jonel Hemphill MD Active MIRALAX POWD 17 gms in 4 oz water or juice daily POLYETHYLENE GLYCOL 3350 32679149332 Active Rubin Pierre MD Active DURAGESIC-12 12 MCG/HR PT72 APPLY PATCH TO SKIN AND CHANGE EVERY 72 HOURS, ROTATE SITES FENTANYL 13780678038 No Longer Active Fozia HERNANDEZ Active [facility] VITAMIN C 500 MG TABS 1 po daily ASCORBIC ACID 44060283953 Active Mahogany [place] Active FUROSEMIDE 20 MG TABS 1 qd FUROSEMIDE 41881457985 No Longer Active Mahogany [place] Active ADULT ASPIRIN EC LOW STRENGTH 81 MG TBEC 1 qd ASPIRIN 07732217854 Active MARY Perez Active DILANTIN 100 MG CAPS 3 cap tid PHENYTOIN SODIUM EXTENDED 64341770951 Active MARY Perez Active BUDEPRION SR 150 MG [id number] 1 bid BUPROPION HCL 50562230589 Active MARY Perez Active ALLOPURINOL 300 MG TABS 1 qd ALLOPURINOL 60637424744 Active MARY Perez Active COZAAR 100 MG TABS 1 qd LOSARTAN POTASSIUM 77953831599 Active MARY Perez Active FUROSEMIDE 20 MG TABS 1 qd FUROSEMIDE 20 MG TABS 393260 FUROSEMIDE Inactive DURAGESIC-12 12 MCG/HR PT72 APPLY PATCH TO SKIN AND CHANGE EVERY 72 HOURS, ROTATE SITES DURAGESIC-12 12 MCG/HR PT72 893975 FENTANYL Inactive FENTANYL 50 MCG/HR PT72 place 1 patch on skin q72 hours FENTANYL 50 MCG/HR PT72 227381 FENTANYL Inactive FUROSEMIDE 40 MG TABS 1 q am FUROSEMIDE 40 MG TABS 317387 FUROSEMIDE Inactive FENTANYL 75 MCG/HR PT72 place 1 patch on skin q72hrs fr pain 2012 FENTANYL 75 MCG/HR PT72 011317 FENTANYL Inactive DURAGESIC-25 25 MCG/HR PT72 place 1 patch on the skin q72hrs for pain DURAGESIC-25 25 MCG/HR PT72 983624 FENTANYL Inactive HYDROCHLOROTHIAZIDE 25 MG TABS 1 qd HYDROCHLOROTHIAZIDE 25 MG TABS 392013 HYDROCHLOROTHIAZIDE Inactive LISINOPRIL 40 MG TABS 1 qd LISINOPRIL 40 MG TABS 720104 LISINOPRIL Inactive METFORMIN HCL 500 MG TABS 1 bod with food METFORMIN HCL 500 MG TABS 518782 METFORMIN HCL Inactive METOPROLOL TARTRATE 50 MG TABS 1 bid METOPROLOL TARTRATE 50 MG TABS 544728 METOPROLOL TARTRATE Inactive GNP THERAPEUTIC-M TABS 1 qd GNP THERAPEUTIC-M TABS MULTIPLE VITAMINS-MINERALS Inactive AMBIEN 10 MG TABS 1 q hs prn AMBIEN 10 MG TABS 609258 ZOLPIDEM TARTRATE Inactive CLONIDINE HCL 0.2 MG TABS 1 q 8 hrs as needed -greater than 160-htn CLONIDINE HCL 0.2 MG TABS 866912 CLONIDINE HCL Inactive ANTIVERT 25 MG TABS 1 q 6 hrs prn ANTIVERT 25 MG TABS MECLIZINE HCL Inactive NEURONTIN 400 MG CAPS Take one by mouth 3 times daily, morning, afternoon and evening.] NEURONTIN 400 MG CAPS 556062 GABAPENTIN Inactive IMDUR 120 MG [id number] 1 qd IMDUR 120 MG [id number] ISOSORBIDE MONONITRATE Inactive [facility] MILK OF MAGNESIA [...] for arthritis pain MOBIC 15 MG TABS 273593 MELOXICAM Inactive LEVEMIR 100 UNIT/ML SOLN 5 units sub-q at bedtime LEVEMIR 100 UNIT/ML SOLN INSULIN DETEMIR Inactive FENTANYL 25 MCG/HR PT72 Apply to clean skin and change every 72 hours. 07/03 FENTANYL 25 MCG/HR PT72 201499 FENTANYL Inactive Advance Directives Directive Description Start Date ADVANCE DIRECTIVE Immunizations Vaccine Administration Date Value Standard Description influenza immunization (Flu Vax) has been administered Influenza - Unspecified Formulation [CVX88] influenza virus vaccine, unspecified formulation pneumococcal immunization administered Pneumovax 23 [CVX33] pneumococcal polysaccharide vaccine, 23 valent Vital Signs Date Name Value Unit Range Description blood pressure, diastolic - 8462-4 93 mm[Hg] BP augustin blood pressure, systolic - 8480-6 158 mm[Hg] BP sys pulse rate E&M - 8867-4 78 /min Heart rate respiratory rate E&M - 9279-1 20 /min Resp rate temperature E&M 97.6 [degF] Body temperature blood pressure, diastolic, supine 85 mm[Hg] BP augustin blood pressure, systolic, supine E&M 140 mm[Hg] BP sys pulse rate E&M - 8867-4 73 /min Heart rate respiratory rate E&M - 9279-1 18 /min Resp rate temperature E&M 96.6 [degF] Body temperature blood pressure, diastolic - 8462-4 87 mm[Hg] BP augustin blood pressure, systolic - 8480-6 174 mm[Hg] BP sys pulse rate E&M - 8867-4 74 /min Heart rate respiratory rate E&M - 9279-1 20 /min Resp rate temperature E&M 97.6 [degF] Body temperature blood pressure, diastolic - 8462-4 87 mm[Hg] BP augustin blood pressure, systolic - 8480-6 156 mm[Hg] BP sys pulse rate E&M - 8867-4 70 /min Heart rate respiratory rate E&M - 9279-1 20 /min Resp rate temperature E&M 98 [degF] Body temperature blood pressure, diastolic - 8462-4 847 mm[Hg] BP augustin blood pressure, systolic - 8480-6 163 mm[Hg] BP sys pulse rate E&M - 8867-4 78 /min Heart rate respiratory rate E&M - 9279-1 83 /min Resp rate temperature E&M 98.9 [degF] Body temperature weight E&M - 3141-9 377 [lb_av] Weight Measured blood pressure, diastolic - 8462-4 77 mm[Hg] BP augustin blood pressure, systolic - 8480-6 134 mm[Hg] BP sys height E&M - 8302-2 68 [in_us] Bdy height pulse rate E&M - 8867-4 72 /min Heart rate respiratory rate E&M - 9279-1 18 /min Resp rate temperature E&M 97.9 [degF] Body temperature weight E&M - 3141-9 340 [lb_av] Weight Measured blood pressure, diastolic - 8462-4 66 mm[Hg] [...] rate temperature E&M 98.8 [degF] Body temperature Diagnostic Results Date Name Value Unit Range Description Chart Maintenance: Outside labs entered on flowsheet - Hematology leukocyte count, blood 7.5 10*3/mm3 hemoglobin, blood 14.5 g/dL platelet count 128 10*3/mm3 Clinical Lists Update: CBC W/ DIFF [...] cell distribution width 16.4 % Lab Report: CBC W/ DIFF - Hematology [...] distribution width 14.9 % Lab Report: CBC W/DIFF - Hematology leukocyte [...] 142-424 Lab Report: CBC, Comp. Metabolic Panel, Uric Acid - Chemistry sodium, serum 141 mmol/L 508-383 2720/05/09 potassium, serum 3.9 mmol/L 3.5-5.2 chloride, serum [...] Analysis 10^3/mm^3 10*3/ mm3 142-424 Lab Report: CMP, URIC ACID - Chemistry sodium, serum 142 mmol/L potassium, serum 4.5 mmol/L blood glucose 94 mg/dL creatinine, serum 0.79 mg/dL aspartate aminotransferase (SGOT), serum 24 U/L alanine aminotransferase (SGPT), serum 28 U/L alkaline phosphatase, serum 54 U/L Lab Report: Comp. Metabolic Panel, UADIP W/MICRO, AUTO - Chemistry sodium, serum 140 mmol/L 838-199 0797/02/18 potassium, serum 3.8 mmol/L 3.5-5.2 chloride, serum [...] 1.025 1.000-1.030 pH, urine, semiquantitative 6.0 5.0-8.5 Encounters Code Encounter Date Provider Facility CPT-50089 Level 3 Est. Patient 18:04:07 CDT Jonel Hemphill MD [facility] CPT-20975 Level 3 Est. Patient 17:18:03 CDT Jonel Hemphill MD [facility] CPT-37942 Level 3 Est. Patient 21:58:03 [employer]S OFFICER Jonel Hemphill MD [facility] CPT-65703 Level 4 Est. Patient 18:03:14 CDT Jonel Hemphill MD [facility]-83973 Level 4 Est. Patient 13:24:53 CDT Jonel Hemphill MD [facility]-04401 Level 4 Est. Patient 09:15:44 CDT Jonel Hemphill MD [facility]-51392 Level 4 Est. Patient 19:16:01 CDT Jonel Hemphill MD [facility]-01570 Level 4 Est. Patient 11:25:16 CDT Jonel Hemphill MD [facility] CPT-03918 Level 4 Est. Patient 09:00:40 CDT Jonel Hemphill MD [facility]-80016 Level 4 Est. Patient 14:53:58 CDT Jonel Hemphill MD [facility] CPT-26750 Level 4 Est. Patient 22:59:01 CDT Jonel Hemphill MD [facility]-04221 Level 4 Est. Patient 09:29:57 CDT Jonel Hemphill MD [facility]-61344 Level 4 Est. Patient 12:35:53 [employer]S OFFICER Jonel Hemphill MD [facility]-62326 Level 4 Est. Patient 22:36:09 C[employer]OMS OFFICER Jonel Hemphill MD [facility]-36580 Level 2 Est. Patient 15:14:15 C[employer]OMS OFFICER Mayco Shah APRN [facility]-77421 Level 4 Est. Patient 10:36:22 CUSTOMS OFFICER Jonel Hmephill MD [facility] CPT-44289 Level 4 Est. Patient 22:01:13 C[employer]OMS OFFICER Jonel Hemphill MD [facility]-37285 Level 3 Est. Patient 21:50:37 C[employer]OMS OFFICER Jonel Hemphill MD [facility] CPT-26630 Level 4 Est. Patient 15:02:43 CDT Rubin Pierre MD [facility] CPT-31103 Level 4 Est. Patient 14:27:35 CDT Jonel Hemphill MD [facility]-51524 Level 4 Est. Patient 12:41:17 CDT Jonel Hemphill MD [facility]-84963 Level 4 Est. Patient 16:18:55 CDT Jonel Hemphill MD [facility] CPT-65705 Level 4 Est. Patient 17:58:05 CDT Jonel Hemphill MD [facility]-82875 Level 4 Est. Patient 22:10:06 CDT Jonel Hemphill MD [facility] CPT-89952 Level 4 Est. Patient 13:22:09 CDT Jonel Hemphill MD [facility]-10697 Level 4 Est. Patient 22:52:17 C[employer]OMS OFFICER Jonel Hemphill MD [facility]-62364 Level 3 Est. Patient 22:34:10 C[employer]OMS OFFICER Jonel Hemphill MD [facility]-18426 Level 4 Est. Patient 07:49:20 CUSTOMS OFFICER Jonel Hemphill MD [facility] Skilled CPT-28186 Level 3 Est. Patient 08:28:27 CUSTOMS OFFICER Jonel Hemphill MD [facility] Procedures Code Procedure Name Date Entry Date Standard Description CPT-03133 Level 3 Longterm 18:44:49 C[employer]S OFFICER CPT-14033 Level 3 Longterm 18:17:33 CDT CPT-73978 Level 3 Longterm 09:25:33 CDT CPT-15273 Level 3 Longterm 19:11:57 CDT CPT-86683 Level 3 Longterm 09:25:52 CDT CPT-50500 Level 3 Longterm 14:23:59 CDT CPT-69189 Level 3 Longterm 12:09:43 CDT CPT-12965 Level 3 Longterm 09:37:40 CDT CPT-71388 Level 3 Longterm 18:23:02 CDT CPT-64730 Level 3 Longterm 14:09:06 CDT CPT-37535 Level 3 Longterm 12:43:27 [employer]OMS OFFICER CPT-92206 Postop F/U Visit 14:10:15 C[employer]OMS OFFICER CPT-70960 [facility] 17:07:14 CUSTOMS OFFICER CPT-57372 Level 3 Longterm 16:14:37 C[employer]OMS OFFICER CPT-81298 Port a cath flush 11:47:42 CDT CPT-40302 Port a cath flush 08:29:49 CDT CPT-OV Office Visit 14:27:58 CUSTOMS OFFICER
--- OUTSIDE RECORDS SUMMARY | 2016-08-07 10:48 | XMS REPORT ---
Author Author [facility] Medical Staff Organization [facility] Address [address], [place] [id number] Phone [phone] Summary purpose TRANSITION OF CARE AUTO GENERATION [...] visit Relevant diagnostic tests and/or laboratory data No authorized results are available for this patient visit History of procedures No procedures recorded for this patient visit. Functional status No functional or cognitive status observations are available for this visit. Vital signs No authorized vital signs are available for this visit. Social history No Social History or smoking status observations were recorded for this visit. ( Unknown if ever smoked.) Treatment Plan No treatment plan text is available for this visit. Hospital discharge instructions No discharge instruction text is available for this visit.
--- OUTSIDE RECORDS SUMMARY | 2016-08-07 10:48 | XMS REPORT | Clinical Summary ---
Author Author Admin, KARLAE Organization [facility] Address Unknown Phone Unavailable Allergies, Adverse Reactions, Alerts Allergy Name Reaction Description Start Date Severity Status Provider PENICILLIN Critical Active [place] Giles RMA Conditions or Problems Problem Name 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, MEDICAL IMAGING TECH V58.69 Resolved Jonel Hemphill MD Long-term (current) [...] Coronary atherosclerosis of unspecified type of vessel, port graham or graft FH DIABETES V18.0 Resolved Jonle Hemphill MD Family history of diabetes mellitus [...] Coronary atherosclerosis of unspecified type of vessel, port graham or graft CONSTIPATION 564.00 Resolved Jonel Hemphill [...] Cellulitis and abscess of leg, except foot 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 USE, MEDICAL IMAGING TECH ICD-V58.69 Inactive Jonel Hemphill MD DIABETES, TYPE [...] MD VENOUS STASIS ULCER ICD-454.0 Inactive Jonel Hempihll MD RECTAL BLEEDING ICD-569.3 Inactive Jonel Hemphill MD LUMBAGO ICD-724.2 Inactive Jonel Hemphill MD 2013 SHOULDER STRAIN, RIGHT ICD-840.9 Inactive Jonel Hempihll MD TREMOR ICD-781.0 Inactive Jonel Hemphill MD [...] TAB PO Q 6 HRS PRN HYDROCODONE-ACETAMINOPHEN 92285595667 Active Jonel Hemphill MD Active METFORMIN HCL 1000 MG TABS 1 tablet by mouth twice daily METFORMIN HCL 07000315508 Active Marleni Romero Active FENTANYL 12 MCG/HR PT72 Apply to clean, dry skin and change every 72 hours FENTANYL 25393163551 Active Jonel Hemphill MD Active KLOR-CON 20 MEQ ORAL PACK 1 BY MOUTH DAILY POTASSIUM CHLORIDE 08810726318 Active Marleni Romero Active A+D FIRST AID EXT OINT APPLY OINTMENT AND RUFINO WRAPS TO LOWER EXTEREMETIES DAILY SKIN PROTECTANTS, MISC. 72101774919 Active Jonel Hemphill MD Active NYSTATIN 716216 UNIT/GM EXT OINT APPLY PRN TID TO GAULDING/RASH IN ABDOMINAL FOLDS NYSTATIN 45190356321 Active Jonel Hemphill MD Active ATIVAN 0.5 MG TABS Take 1 tablet 2x daily PRN LORAZEPAM 32336142101 Active Jonel Hemphill MD Active GABAPENTIN 400 MG ORAL CAPS 1 TAB BY MOUTH THREE TIMES DAILY GABAPENTIN 98706439578 Active Jonel Hemphill MD Active GABAPENTIN 300 MG CAPS 1 CAP PO TID GABAPENTIN 69864779004 No Longer Active Jonel Hemphill MD Active DILANTIN 100 MG ORAL CAPS 1 THREE TIMES DAILY FOR SEIZURES PHENYTOIN SODIUM EXTENDED 27310828706 Active Marleni Romero Active CPAP APPLY AT HS CPAP Active Jonel Hemphill MD Active METOPROLOL TARTRATE 50 MG ORAL TABS 1 TAB BY MOUTH TWICE DAILY METOPROLOL TARTRATE 80786979123 Active Jonel Hemphill MD Active LISINOPRIL 40 MG TABS 1 tablet by mouth twice daily, for blood pressure 03/31 LISINOPRIL 47816064668 Active Jonel Hemphill MD Active BUPROPION HCL ER (SR) 150 MG [id number] 1 twice a day for depression BUPROPION HCL 17335844807 Active Jonel Hemphill MD Active MULTIVITAMINS CAPS 1 DAILY MULTIPLE VITAMIN 53375056663 Active Jonel Hemphill MD Active ZYLOPRIM 300 MG TAB 1 BY MOUTH DAILY ALLOPURINOL 99088250794 Active Jonel Hemphill MD Active HYDROCODONE-ACETAMINOPHEN 7.5-325 MG TABS 1 q 6 hrs prn HYDROCODONE-ACETAMINOPHEN 82008118712 No Longer Active Jonel Hemphill MD Active DILANTIN 100 MG CAPS 3 cap tid PHENYTOIN SODIUM EXTENDED 12482972236 No Longer Active Jonel Hemphill MD Active BUDEPRION SR 150 MG [id number] 1 bid BUPROPION HCL 69771573239 No Longer Active Jonel Hemphill MD Active ALLOPURINOL 300 MG TABS 1 qd ALLOPURINOL 56617110604 No Longer Active Jonel Hemphill MD Active COZAAR 100 MG TABS 1 qd LOSARTAN POTASSIUM 52777324279 No Longer Active Jonel Hemphill MD Active CVS VITAMIN C 500 MG TABS 1 po daily ASCORBIC ACID 09513797094 No Longer Active Jonel Hemphill MD Active MIRALAX POWD 17 gms in 4 oz water or juice daily POLYETHYLENE GLYCOL 3350 26335899496 No Longer Active Jonel Hemphill MD Active POTASSIUM CHLORIDE CHELA ER 20 MEQ CR-TABS 1 tab PO daily POTASSIUM CHLORIDE CHELA CR 81298914357 No Longer Active Jonel Hemphill MD Active AMBIEN 10 MG TAB 1 tab by mouth at bedtime as needed for sleep ZOLPIDEM TARTRATE 06824224397 No Longer Active Jonel Hemphill MD Active SULFAMETHOXAZOLE-TMP DS 800-160 MG TABS 1 TAB PO BID SULFAMETHOXAZOLE-TRIMETHOPRIM 66425676189 No Longer Active Jonel Hemphill MD Active NORCO 5-325 MG TABS 1-2 TAB Q 6 HRS PRN HYDROCODONE- ACETAMINOPHEN 47818793565 Active Jonel Hemphill MD Active LEVEMIR 100 UNIT/ML SOLN 5 units sub-q at bedtime INSULIN DETEMIR 45394457562 No Longer Active Tova Perez Active MOBIC 15 MG TABS 1 tab PO daily for arthritis pain MELOXICAM 13249961391 No Longer Active Tova Perez Active GLUCAGEN 1 MG SOLR INJECT 1MG IM IF BS LESS THAN 60 & RES. IS UNABLE TO SWALLOW GLUCAGON HCL (RDNA) 34191975246 No Longer Active Tova Perez Active CVS MILK OF MAGNESIA 1200 MG/15ML SUSP 30 ml daily for constipation MAGNESIUM HYDROXIDE 79835533492 No Longer Active Tova Perez Active IMDUR 120 MG [id number]-FCO 1 qd ISOSORBIDE MONONITRATE 02619403398 No Longer Active Tova Chris Active PHENYTOIN 50 MG CHEW 1 TAB PO BID PHENYTOIN 66883297886 Active Tova Chris Active MECLIZINE HCL 25 MG CHEW TAB 1 four times a day as needed for dizziness 02/21 MECLIZINE HCL 37296180950 Active Tova Chris Active NEURONTIN 400 MG CAPS Take one by mouth 3 times daily, morning, afternoon and evening.] GABAPENTIN 42861258104 No Longer Active Tova Chris Active ANTIVERT 25 MG TABS 1 q 6 hrs prn MECLIZINE HCL 18630988796 No Longer Active Jonel Hemphill MD Active CLONIDINE HCL 0.2 MG TABS 1 q 8 hrs as needed -greater than 160-htn CLONIDINE HCL 88024688983 No Longer Active Jonel Hemphill MD Active AMBIEN 10 MG TABS 1 q hs prn ZOLPIDEM TARTRATE 23005007065 No Longer Active Jonel Hemphill MD Active GNP THERAPEUTIC-M TABS 1 qd MULTIPLE VITAMINS- MINERALS 19626412401 No Longer Active Jonel Hemphill MD Active METOPROLOL TARTRATE 50 MG TABS 1 bid METOPROLOL TARTRATE 56209148923 No Longer Active Jonel Hemphill MD Active METFORMIN HCL 500 MG TABS 1 bod with food METFORMIN HCL 08422213564 No Longer Active Jonel Hemphill MD Active LISINOPRIL 40 MG TABS 1 qd LISINOPRIL 34838097463 No Longer Active Jonel Hemphill MD Active HYDROCHLOROTHIAZIDE 25 MG TABS 1 qd HYDROCHLOROTHIAZIDE 16557247161 No Longer Active Jonel Hemphill MD Active DURAGESIC-25 25 MCG/HR PT72 place 1 patch on the skin q72hrs for pain FENTANYL 43180418949 No Longer Active Jonel Hemphill MD Active FENTANYL 75 MCG/HR PT72 place 1 patch on skin q72hrs fr pain 2012 FENTANYL 88548223231 No Longer Active Jonel Hemphill MD Active LASIX 20 MG TABS 1 tab PO q morning FUROSEMIDE 83458311078 Active Jonel Hemphill MD Active FUROSEMIDE 40 MG TABS 1 q am FUROSEMIDE 26973945175 No Longer Active Jonel Hemphill MD Active HEPARIN (PORCINE) LOCK FLUSH 100 UNIT/ML SOLN Flush port a cath monthly every three week on with Heparin and NS HEPARIN LOCK FLUSH 73790060017 Active Jonel Hemphill MD Active FENTANYL 100 MCG/HR PT72 Apply every 3 days FENTANYL 65876558341 Active Jonel Hemphill MD Active FENTANYL 25 MCG/HR PT72 Apply to clean skin and change every 72 hours. 07/03 FENTANYL 73488173306 No Longer Active Jonel Hemphill MD Active FENTANYL 50 MCG/HR PT72 place 1 patch on skin q72 hours FENTANYL 55540254489 No Longer Active Mayco Shah APRN Active CELEXA 20 MG TABS Take 1 tablet 1x daily CITALOPRAM HYDROBROMIDE 57825707486 Active Jonel Hemphill MD Active DURAGESIC-12 12 MCG/HR PT72 APPLY PATCH TO SKIN AND CHANGE EVERY 72 HOURS, ROTATE SITES FENTANYL 31600452467 No Longer Active Fozia YANGA Active FUROSEMIDE 20 MG TABS 1 qd FUROSEMIDE 79597955472 No Longer Active Mahogany Henrico Active ADULT ASPIRIN EC LOW STRENGTH 81 MG TBEC 1 qd ASPIRIN 90621153176 Active MARY Perez Active FUROSEMIDE 20 MG TABS 1 qd FUROSEMIDE 20 MG TABS 274358 FUROSEMIDE Inactive DURAGESIC-12 12 MCG/HR PT72 APPLY PATCH TO SKIN AND CHANGE EVERY 72 HOURS, ROTATE SITES DURAGESIC-12 12 MCG/HR PT72 542616 FENTANYL Inactive FENTANYL 50 MCG/HR PT72 place 1 patch on skin q72 hours FENTANYL 50 MCG/HR PT72 244469 FENTANYL Inactive FUROSEMIDE 40 MG TABS 1 q am FUROSEMIDE 40 MG TABS 349222 FUROSEMIDE Inactive FENTANYL 75 MCG/HR PT72 place 1 patch on skin q72hrs fr pain 2012 FENTANYL 75 MCG/HR PT72 221354 FENTANYL Inactive DURAGESIC-25 25 MCG/HR PT72 place 1 patch on the skin q72hrs for pain DURAGESIC-25 25 MCG/HR PT72 232545 FENTANYL Inactive HYDROCHLOROTHIAZIDE 25 MG TABS 1 qd HYDROCHLOROTHIAZIDE 25 MG TABS 936202 HYDROCHLOROTHIAZIDE Inactive LISINOPRIL 40 MG TABS 1 qd LISINOPRIL 40 MG TABS 300760 LISINOPRIL Inactive METFORMIN HCL 500 MG TABS 1 bod with food METFORMIN HCL 500 MG TABS 353337 METFORMIN HCL Inactive METOPROLOL TARTRATE 50 MG TABS 1 bid METOPROLOL TARTRATE 50 MG TABS 317482 METOPROLOL TARTRATE Inactive GNP THERAPEUTIC-M TABS 1 qd GNP THERAPEUTIC-M TABS MULTIPLE VITAMINS-MINERALS Inactive AMBIEN 10 MG TABS 1 q hs prn AMBIEN 10 MG TABS 405101 ZOLPIDEM TARTRATE Inactive CLONIDINE HCL 0.2 MG TABS 1 q 8 hrs as needed -greater than 160-htn CLONIDINE HCL 0.2 MG TABS 725942 CLONIDINE HCL Inactive ANTIVERT 25 MG TABS 1 q 6 hrs prn ANTIVERT 25 MG TABS MECLIZINE HCL Inactive NEURONTIN 400 MG CAPS Take one by mouth 3 times daily, morning, afternoon and evening.] NEURONTIN 400 MG CAPS 328542 GABAPENTIN Inactive IMDUR 120 MG [id number] 1 qd IMDUR 120 MG [id number] ISOSORBIDE MONONITRATE Inactive CVS MILK OF MAGNESIA [...] for arthritis pain MOBIC 15 MG TABS 698846 MELOXICAM Inactive LEVEMIR 100 UNIT/ML SOLN 5 units sub-q at bedtime LEVEMIR 100 UNIT/ML SOLN INSULIN DETEMIR Inactive SULFAMETHOXAZOLE-TMP DS 800-160 MG TABS 1 TAB PO BID SULFAMETHOXAZOLE-TMP DS 800-160 MG TABS 892686 SULFAMETHOXAZOLE-TRIMETHOPRIM Inactive AMBIEN 10 MG TAB 1 tab by mouth at bedtime as needed for sleep AMBIEN 10 MG TAB 417633 ZOLPIDEM TARTRATE Inactive POTASSIUM CHLORIDE CHELA ER 20 MEQ CR-TABS 1 tab PO daily POTASSIUM CHLORIDE CHELA ER 20 MEQ CR-TABS POTASSIUM CHLORIDE CHELA CR Inactive MIRALAX POWD 17 gms in 4 oz water or juice daily MIRALAX POWD 917675 POLYETHYLENE GLYCOL 3350 Inactive CVS VITAMIN C 500 MG TABS 1 po daily CVS VITAMIN C 500 MG TABS 392996 ASCORBIC ACID Inactive COZAAR 100 MG TABS 1 qd COZAAR 100 MG TABS 056510 LOSARTAN POTASSIUM Inactive ALLOPURINOL 300 MG TABS 1 qd ALLOPURINOL 300 MG TABS 155434 ALLOPURINOL Inactive BUDEPRION SR 150 MG [id number] 1 bid BUDEPRION SR 150 MG [id number] BUPROPION HCL Inactive DILANTIN 100 MG CAPS 3 cap tid DILANTIN 100 MG CAPS 024424 PHENYTOIN SODIUM EXTENDED Inactive HYDROCODONE-ACETAMINOPHEN 7.5-325 MG TABS 1 q 6 hrs prn HYDROCODONE-ACETAMINOPHEN 7.5-325 MG TABS 342739 HYDROCODONE- ACETAMINOPHEN Inactive GABAPENTIN 300 MG CAPS 1 CAP PO TID GABAPENTIN 300 MG CAPS 437788 GABAPENTIN Inactive FENTANYL 25 MCG/HR PT72 Apply to clean skin and change every 72 hours. 07/03 FENTANYL 25 MCG/HR PT72 574219 FENTANYL Inactive Advance Directives Directive Description Start Date ADVANCE DIRECTIVE Immunizations Vaccine Administration Date Value Standard Description influenza immunization (Flu Vax) has been administered Influenza - Unspecified Formulation [CVX88] influenza virus vaccine, unspecified formulation pneumococcal immunization administered Pneumovax 23 [CVX33] pneumococcal polysaccharide vaccine, 23 valent Vital Signs Date Name Value Unit Range Description blood pressure, diastolic - 8462-4 78 mm[Hg] [...] as % of total hemoglobin 7.2 % potassium, serum 3.9 mmol/L blood glucose 147 mg/dL creatinine, serum 0.19 mg/dL aspartate aminotransferase (SGOT), serum 13 U/L alanine aminotransferase (SGPT), serum 13 U/L alkaline phosphatase, serum 51 U/L sodium, serum 143 mmol/L Chart Maintenance: Outside labs entered on flowsheet - Hematology platelet count 113 10*3/mm3 hemoglobin, blood 14.4 g/dL leukocyte count, blood 6.9 10*3/mm3 Lab Report: HGBA1C - Chemistry hemoglobin A1C, blood, as % of total hemoglobin 6.8 % 4.3-6.0 Encounters Code Encounter Date Provider Facility CPT-16726 Level 3 Est. Patient 18:04:07 CDT Jonel Hemphill MD [facility] CPT-48477 Level 3 Est. Patient 17:18:03 CDT Jonel Hemphill MD [facility] CPT-35001 Level 3 Est. Patient 21:58:03 [facility]ER [employer]ER Jonel Hemphill MD [facility] CPT-58594 Level 4 Est. Patient 18:03:14 CDT Jonel Hemphill MD [facility]-53005 Level 4 Est. Patient 13:24:53 CDT Jonel Hemphill MD [facility]-51980 Level 4 Est. Patient 09:15:44 CDT Jonel Hemphill MD [facility]-07536 Level 4 Est. Patient 19:16:01 CDT Jonel [facility]phill [facility]-09597 Level 4 Est. Patient 11:25:16 CDT Jonel Hemphill MD [facility]-36530 Level 4 Est. Patient 09:00:40 CDT Jonel Hemphill MD [facility]-92175 Level 4 Est. Patient 14:53:58 CDT Jonel Hemphill MD [facility]-01480 Level 4 Est. Patient 22:59:01 CDT Jonel Hemphill MD [facility]-68684 Level 4 Est. Patient 09:29:57 CDT Jonel Hemphill MD [facility]-44470 Level 4 Est. Patient 12:35:53 [employer]ER [employer]AYER Jonel Hemphill MD [facility]-55934 Level 4 Est. Patient 22:36:09 [employer]ER Jonel Hemphill MD [facility]-77359 Level 2 Est. Patient 15:14:15 [employer] Mayco Shah APRN [facility] CPT-84283 Level 4 Est. Patient 10:36:22 B[employer]ER LAYER Jonel Hemphill MD [facility]-85397 Level 4 Est. Patient 22:01:13 BINDER LAYER Jonel Hemphill MD [facility]-66432 Level 3 Est. Patient 21:50:37 BINDER LAYER Jonel Hemphill MD [facility] CPT-43506 Level 4 Est. Patient 15:02:43 CDT Rubin Pierre MD [facility] CPT-04422 Level 4 Est. Patient 14:27:35 CDT Jonel Hemphill MD [facility]-28659 Level 4 Est. Patient 12:41:17 CDT Jonel Hemphill MD [facility]-46278 Level 4 Est. Patient 16:18:55 CDT Jonel Hemphill MD [facility]-14864 Level 4 Est. Patient 17:58:05 CDT Jonel Hemphill MD [facility]-31956 Level 4 Est. Patient 22:10:06 CDT Jonel Hemphill MD [facility]-02242 Level 4 Est. Patient 13:22:09 CDT Jonel Hemphill MD [facility]-88674 Level 4 Est. Patient 22:52:17 BINDER LAYER Jonel Hemphill MD [facility]-57694 Level 3 Est. Patient 22:34:10 [employer]AYER Jonel Hemphill MD [facility]-88305 Level 4 Est. Patient 07:49:20 BINDER LAYER Jonel Hemphill MD [facility] Skilled CPT-07180 Level 3 Est. Patient 08:28:27 BINDER LAYER Jonel Hemphill MD [facility] Procedures Code Procedure Name Date Entry Date Standard Description CPT-85600 Level 3 Usp 16:04:10 CDT CPT-35734 Level 3 Usp 19:38:15 BINDER LAYER CPT-78335 Level 3 Usp 19:28:48 BINDER LAYER CPT-42755 Level 3 Usp 18:02:20 BINDER LAYER CPT-07228 Level 3 Usp 15:02:14 BINDER LAYER CPT-20000 Level 3 Usp 12:25:37 CDT CPT-97508 Level 3 Usp 12:48:39 CDT CPT-70279 Level 3 Usp 17:39:14 CDT CPT-82993 Level 3 Usp 13:32:58 CDT CPT-51923 Level 3 Usp 17:43:43 CDT CPT-21927 Level 3 Usp 12:03:33 BINDER LAYER CPT-75345 Level 3 Usp 18:47:28 BINDER LAYER CPT-03181 Level 3 Usp 17:35:26 BINDER LAYER CPT-78010 Level 3 Usp 18:44:49 BINDER LAYER CPT-69353 Level 3 Usp 18:17:33 CDT CPT-01819 Level 3 Usp 09:25:33 CDT CPT-58062 Level 3 Usp 19:11:57 CDT CPT-17885 Level 3 Usp 09:25:52 CDT CPT-79474 Level 3 Usp 14:23:59 CDT CPT-93837 Level 3 Usp 12:09:43 CDT CPT-65934 Level 3 Usp 09:37:40 CDT CPT-21272 Level 3 Usp 18:23:02 CDT CPT-12050 Level 3 Usp 14:09:06 CDT CPT-80562 Level 3 Usp 12:43:27 BINDER LAYER CPT-18285 Postop F/U Visit 14:10:15 BINDER LAYER CPT-23586 [facility] Head [facility] Neck 17:07:14 BINDER [employer]AYER CPT-66529 Level 3 Usp 16:14:37 BINDER LAYER CPT-00229 Port a cath flush 11:47:42 CDT CPT-39535 Port a cath flush 08:29:49 CDT CPT-OV Office Visit 14:27:58 BINDER LAYER
--- OUTSIDE RECORDS SUMMARY | 2016-08-07 10:48 | XMS REPORT ---
Author [facility] Address [address], [place] [address] Phone [phone] Care Team Providers Care Clinical Secretary Name Role Phone FRANKO PRIETO MD PP [phone] Summary purpose TRANSITION OF CARE AUTO GENERATION Chief Complaint and Reason for Visit Admit Diagnosis 1 DM2/NOS UNCOMP NSU Problem list No authorized problems tracked for [...] Relevant diagnostic tests and/or laboratory data RESULTS Chemistry [id number]:30:00 Result Normal Range Units Sodium 144 134-145 mEq/l Potassium 4.6 3.5-5.1 mEq/l Chloride 102 98-107 mEq/l CO2 H 31.5 22-28 mEq/l Glucose H 187 70-105 mg/dl BUN 18 7-18 mg/dl Creatinine 0.85 0.6-1.3 mg/dl Calcium 9.2 8.4-10.2 mg/dl TP - Total Protein 6.7 6.0-8.3 g/dl Albumin 3.7 3.5-5 g/dl Bilirubin - Total 0.4 0.1-1.0 mg/dl AST 33 10-42 IU/L ALT 42 12-65 IU/L ALP 60 39-107 IU/L Osmolality 293.7 280-300 mOsm/L Albumin/Globulin Ratio 1.2 0-8 Anion GAP 10.5 8-16 BUN/Creatinine Ratio H 21.2 10-20 Estimated GFR 94 >=60 mL/min/1.7 Special Chemistry [id number]:00 Result Normal Range Units Hemoglobin A1C H 7.2 4.5-6.2 % History of procedures Procedure Code Code Type Description Date Performed Performing Physician 41750 CPT-4 COMPREHEN METABOLIC PANEL 09-13-2014 FRANKO PRIETO 36385 CPT-4 GLYCOSYLATED HEMOGLOBIN TEST 09-13-2014 FRANKO PRIETO Functional status No functional or cognitive status [...]
--- OUTSIDE RECORDS SUMMARY | 2016-08-07 10:48 | XMS REPORT ---
Author [facility] Medical [facility] Organization [facility] Address [address] [place], [place] [address] Phone [phone] Care Team Providers Care Small Boat Engineer Name Role Phone FRANKO PRIETO MD PP [phone] Summary purpose TRANSITION OF CARE AUTO GENERATION [...] diagnostic tests and/or laboratory data RESULTS Chemistry [id number]:30:00 Result Normal Range Units Sodium 144 134-145 [...] Estimated GFR 94 >=60 mL/min/1.7 Special Chemistry [id number]:00 Result Normal Range Units Hemoglobin A1C H 7.2 4.5-6.2 % History of procedures No procedures recorded for [...]
--- OUTSIDE RECORDS SUMMARY | 2016-08-07 10:48 | XMS REPORT ---
Author Author [facility] Medical Staff Organization [facility] Address [address], [place] [address] Phone [phone] Summary purpose TRANSITION OF CARE AUTO GENERATION [...]
--- OUTSIDE RECORDS SUMMARY | 2016-08-07 10:48 | XMS REPORT ---
Author Author [facility] Medical Staff Organization [facility] Address [address] [address] [place], [place] [address] Phone [phone] Care Team Providers Care Adhesion Tester Name Role Phone FRANKO PRIETO MD PP [phone] Summary purpose CCDA Sent to [facility] Chief Complaint and Reason for Visit No [...] Ingredient Status Reaction Severity Onset Penicillins Drug Penicillins Active Immunizations No immunizations recorded for this patient visit Relevant diagnostic tests and/or laboratory data No authorized results are available for this patient visit History of procedures Procedure Code Code Type Description Date Performed Performing Physician [id number] CPT-4 ELECTROCARDIOGRAM REPORT 12-02-2015 ARISTEO BILLY Functional status No functional or cognitive status [...]
--- OUTSIDE RECORDS SUMMARY | 2016-08-07 10:49 | XMS REPORT | Clinical Summary ---
Author Author Admin, [place] Organization [facility] Address Unknown Phone Unavailable Allergies, Adverse 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, TRACK LAYER V58.69 Resolved Jonel Hemphill MD Long-term (current) [...] Coronary atherosclerosis of unspecified type of vessel, picayune or graft FH DIABETES V18.0 Resolved Jonel [...] Coronary atherosclerosis of unspecified type of vessel, picayune or graft CONSTIPATION 564.00 Resolved Jonel Hemphill [...] Pain in limb Tinea corporis 110.5 Resolved oJnel Hemphill MD Dermatophytosis of the body Cellulitis, [...] Hemphill MD Obstructive sleep apnea (adult) (pediatric) DIABETES, TYPE 2 ICD-250.00 Inactive Jonel Hempihll MD CORONARY HEART DISEASE ICD-414.00 Inactive Jonel Hemphill MD DIABETES ICD-V18.0 Inactive Jonel Hemphill MD FH STROKE ICD-V17.1 Inactive Jonel Hemphill MD FAMILY HISTORY COLON CANCER-MOTHER ICD-V16.0 Inactive Jonel Hemphill MD VENOUS INSUFFICIENCY ICD-459.81 Inactive Jonel Hemphill MD SLEEP APNEA ICD-780.57 Inactive Jonel Hepmhill MD DIABETIC ULCER, LEG ICD-707.10 Inactive Jonel Hemphill MD SLEEP APNEA ICD-780.57 Inactive Jonel Hemphill MD CELLULITIS, LEG, RIGHT ICD-682.6 Inactive Jonel Hemphill MD CALLUS, RIGHT FOOT ICD-700 Inactive Jonel Hemphill MD CHEST PAIN ICD-786.50 Inactive Jonel Hemphill MD CONSTIPATION ICD-564.00 Inactive Jonel Hemphill MD RECTAL BLEEDING ICD-569.3 Malina Hemphill MD FITTING AND ADJUSTMENT OF VASCULAR CATHETER ICD-V58.81 Inactive Jonel Hemphill MD VENOUS STASIS ULCER ICD-454.0 Inactive Jonel Hemphill MD RECTAL BLEEDING ICD-569.3 Inactive Jonel Hemphill MD LUMBAGO ICD-724.2 Inactive Jonel Hemphill MD 2013 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 USE, CORRECTION ICD-V58.69 Inactive Jonel Hemphill MD SHOULDER STRAIN, RIGHT ICD-840.9 Inactive Jonel Hemphill [...] Generic Name NDC Status Provider Patient Instruction CELEXA 20 MG TABS 1 tablet by mouth daily CITALOPRAM HYDROBROMIDE 47381079346 Active Marleni Romero Active ZOFRAN 4 MG TABS 1 po q6hr PRN Nausea ONDANSETRON HCL 10753070547 Active Jonel Hemphill MD Active XARELTO 20 MG ORAL TABS 1 daily RIVAROXABAN 96129372461 Active Jonel Hemphill MD Active JANUVIA 100 MG ORAL TABS 2 tabs daily SITAGLIPTIN PHOSPHATE 63292012401 Active Jonel Hemphill MD Active CELEXA 20 MG TABS Take 1 tablet 1x daily CITALOPRAM HYDROBROMIDE 95112200551 No Longer Active Jonel Hemphill MD Active ATIVAN 0.5 MG TABS Take 1 tablet 2x daily PRN LORAZEPAM 75183771831 No Longer Active Jonel Hemphill MD Active FUROSEMIDE 80 MG ORAL TABS 1 daily FUROSEMIDE 88252516284 Active Jonel Hemphill MD Active MECLIZINE HCL 25 MG CHEW TAB 1 four times a day as needed for dizziness 02/21 MECLIZINE HCL 78671249932 No Longer Active Jonel Hemphill MD Active ZYLOPRIM 300 MG TAB 1 BY MOUTH DAILY ALLOPURINOL 84792125544 No Longer Active Jonel Hemphill MD Active METOPROLOL TARTRATE 50 MG ORAL TABS 1 TAB BY MOUTH TWICE DAILY METOPROLOL TARTRATE 56533996519 No Longer Active Jonel Hemphill MD Active GABAPENTIN 400 MG ORAL CAPS 1 TAB BY MOUTH THREE TIMES DAILY 2015 GABAPENTIN 68424179906 No Longer Active Jonel Hemphill MD Active ULORIC 40 MG ORAL TABS 1 daily for gout. FEBUXOSTAT 51756934247 Active Marleni Romero Active HYDROCODONE-ACETAMINOPHEN 7.5-325 MG TABS 1 TAB PO Q 6 HRS PRN HYDROCODONE-ACETAMINOPHEN 74861013660 Active Jonel Hemphill MD Active METFORMIN HCL 1000 MG TABS 1 tablet by mouth twice daily METFORMIN HCL 29176484762 Active Marleni Romero Active FENTANYL 12 MCG/HR PT72 Apply to clean, dry skin and change every 72 hours FENTANYL 04262165378 Active Jonel Hemphill MD Active KLOR-CON 20 MEQ ORAL PACK 1 BY MOUTH DAILY POTASSIUM CHLORIDE 50820510590 Active Marleni Romero Active A+D FIRST AID EXT OINT APPLY OINTMENT AND RUFINO WRAPS TO LOWER EXTEREMETIES DAILY SKIN PROTECTANTS, MISC. 97759222076 Active Jonel Hemphill MD Active NYSTATIN 789576 UNIT/GM EXT OINT APPLY PRN TID TO GAULDING/RASH IN ABDOMINAL FOLDS NYSTATIN 83196802036 Active Jonel Hemphill MD Active GABAPENTIN 300 MG CAPS 1 CAP PO TID GABAPENTIN 99309019742 No Longer Active Jonel Hemphill MD Active DILANTIN 100 MG ORAL CAPS 1 THREE TIMES DAILY FOR SEIZURES PHENYTOIN SODIUM EXTENDED 35426544134 Active Marleni Nick Active CPAP APPLY AT HS CPAP Active Jonel Hemphill MD Active LISINOPRIL 40 MG TABS 1 tablet by mouth twice daily, for blood pressure 03/31 LISINOPRIL 10953651631 Active Jonel Hemphill MD Active BUPROPION HCL ER (SR) 150 MG [id number] 1 twice a day for depression BUPROPION HCL 00791732408 Active Jonel Hemphill MD Active MULTIVITAMINS CAPS 1 DAILY MULTIPLE VITAMIN 26506313874 Active Jonel Hemphill MD Active HYDROCODONE-ACETAMINOPHEN 7.5-325 MG TABS 1 q 6 hrs prn HYDROCODONE-ACETAMINOPHEN 40144886626 No Longer Active Jonel Hemphill MD Active DILANTIN 100 MG CAPS 3 cap tid PHENYTOIN SODIUM EXTENDED 19195636863 No Longer Active Jonel Hemphill MD Active BUDEPRION SR 150 MG [id number] 1 bid BUPROPION HCL 12575673216 No Longer Active Jonel Hemphill MD Active ALLOPURINOL 300 MG TABS 1 qd ALLOPURINOL 25228984316 No Longer Active Jonel Hemphill MD Active COZAAR 100 MG TABS 1 qd LOSARTAN POTASSIUM 27268898523 No Longer Active Jonel Hemphill MD Active CVS VITAMIN C 500 MG TABS 1 po daily ASCORBIC ACID 35808845781 No Longer Active Jonel Hemphill MD Active MIRALAX POWD 17 gms in 4 oz water or juice daily POLYETHYLENE GLYCOL 3350 99599779906 No Longer Active Jonel Hemphill MD Active POTASSIUM CHLORIDE CHELA ER 20 MEQ CR-TABS 1 tab PO daily POTASSIUM CHLORIDE CHELA CR 96504111395 No Longer Active Jonel Hemphill MD Active AMBIEN 10 MG TAB 1 tab by mouth at bedtime as needed for sleep ZOLPIDEM TARTRATE 84485537342 No Longer Active Jonel Hemphill MD Active SULFAMETHOXAZOLE-TMP DS 800-160 MG TABS 1 TAB PO BID SULFAMETHOXAZOLE-TRIMETHOPRIM 22216295898 No Longer Active Jonel Hemphill MD Active NORCO 5-325 MG TABS 1-2 TAB Q 6 HRS PRN HYDROCODONE- ACETAMINOPHEN 01176320928 Active Jonel Hemphill MD Active LEVEMIR 100 UNIT/ML SOLN 5 units sub-q at bedtime INSULIN DETEMIR 34809357771 No Longer Active Tova Perez Active MOBIC 15 MG TABS 1 tab PO daily for arthritis pain MELOXICAM 91449997904 No Longer Active Tova Perez Active GLUCAGEN 1 MG SOLR INJECT 1MG IM IF BS LESS THAN 60 & RES. IS UNABLE TO SWALLOW GLUCAGON HCL (RDNA) 08684441976 No Longer Active Tova Perez Active CVS MILK OF MAGNESIA 1200 MG/15ML SUSP 30 ml daily for constipation MAGNESIUM HYDROXIDE 07633983673 No Longer Active Tova Perez Active IMDUR 120 MG [id number] 1 qd ISOSORBIDE MONONITRATE 15436039684 No Longer Active Tova Perez Active PHENYTOIN 50 MG CHEW 1 TAB PO BID PHENYTOIN 09742952209 Active Tova Perez Active NEURONTIN 400 MG CAPS Take one by mouth 3 times daily, morning, afternoon and evening.] GABAPENTIN 25185760299 No Longer Active Tova Perez Active ANTIVERT 25 MG TABS 1 q 6 hrs prn MECLIZINE HCL 18531480702 No Longer Active Jonel Hemphill MD Active CLONIDINE HCL 0.2 MG TABS 1 q 8 hrs as needed -greater than 160-htn CLONIDINE HCL 51674811432 No Longer Active Jonel Hemphill MD Active AMBIEN 10 MG TABS 1 q hs prn ZOLPIDEM TARTRATE 08122127198 No Longer Active Jonel Hemphill MD Active GNP THERAPEUTIC-M TABS 1 qd MULTIPLE VITAMINS- MINERALS 25782242940 No Longer Active Jonel Hemphill MD Active METOPROLOL TARTRATE 50 MG TABS 1 bid METOPROLOL TARTRATE 28594596405 No Longer Active Jonel Hemphill MD Active METFORMIN HCL 500 MG TABS 1 bod with food METFORMIN HCL 09503931672 No Longer Active Jonel Hemphill MD Active LISINOPRIL 40 MG TABS 1 qd LISINOPRIL 98409480127 No Longer Active Jonel Hemphill MD Active HYDROCHLOROTHIAZIDE 25 MG TABS 1 qd HYDROCHLOROTHIAZIDE 87985442158 No Longer Active Jonel Hemphill MD Active DURAGESIC-25 25 MCG/HR PT72 place 1 patch on the skin q72hrs for pain FENTANYL 95473797555 No Longer Active Jonel Hemphill MD Active FENTANYL 75 MCG/HR PT72 place 1 patch on skin q72hrs fr pain 2012 FENTANYL 54966517873 No Longer Active Jonel Hemphill MD Active FUROSEMIDE 40 MG TABS 1 q am FUROSEMIDE 03928293693 No Longer Active Jonel Hemphill MD Active HEPARIN (PORCINE) LOCK FLUSH 100 UNIT/ML SOLN Flush port a cath monthly every three week on with Heparin and NS HEPARIN LOCK FLUSH 45419143736 Active Jonel Hemphill MD Active FENTANYL 100 MCG/HR PT72 Apply every 3 days FENTANYL 85917545674 Active Jonel Hemphill MD Active FENTANYL 25 MCG/HR PT72 Apply to clean skin and change every 72 hours. 07/03 FENTANYL 94429709754 No Longer Active Jonel Hemphill MD Active FENTANYL 50 MCG/HR PT72 place 1 patch on skin q72 hours FENTANYL 79066362881 No Longer Active Mayco Shah APRN Active DURAGESIC-12 12 MCG/HR PT72 APPLY PATCH TO SKIN AND CHANGE EVERY 72 HOURS, ROTATE SITES FENTANYL 95416759487 No Longer Active Fozia HERNANDEZ Active FUROSEMIDE 20 MG TABS 1 qd FUROSEMIDE 48683421430 No Longer Active Mahogany Bolivar Active ADULT ASPIRIN EC LOW STRENGTH 81 MG TBEC 1 qd ASPIRIN 69138066557 Active MARY Perez Active FUROSEMIDE 20 MG TABS 1 qd FUROSEMIDE 20 MG TABS 499330 FUROSEMIDE Inactive DURAGESIC-12 12 MCG/HR PT72 APPLY PATCH TO SKIN AND CHANGE EVERY 72 HOURS, ROTATE SITES DURAGESIC-12 12 MCG/HR PT72 481856 FENTANYL Inactive FENTANYL 50 MCG/HR PT72 place 1 patch on skin q72 hours FENTANYL 50 MCG/HR PT72 097192 FENTANYL Inactive FUROSEMIDE 40 MG TABS 1 q am FUROSEMIDE 40 MG TABS 044605 FUROSEMIDE Inactive FENTANYL 75 MCG/HR PT72 place 1 patch on skin q72hrs fr pain 2012 FENTANYL 75 MCG/HR PT72 343485 FENTANYL Inactive DURAGESIC-25 25 MCG/HR PT72 place 1 patch on the skin q72hrs for pain DURAGESIC-25 25 MCG/HR PT72 612330 FENTANYL Inactive HYDROCHLOROTHIAZIDE 25 MG TABS 1 qd HYDROCHLOROTHIAZIDE 25 MG TABS 901218 HYDROCHLOROTHIAZIDE Inactive LISINOPRIL 40 MG TABS 1 qd LISINOPRIL 40 MG TABS 594160 LISINOPRIL Inactive METFORMIN HCL 500 MG TABS 1 bod with food METFORMIN HCL 500 MG TABS 159302 METFORMIN HCL Inactive METOPROLOL TARTRATE 50 MG TABS 1 bid METOPROLOL TARTRATE 50 MG TABS 949357 METOPROLOL TARTRATE Inactive GNP THERAPEUTIC-M TABS 1 qd GNP THERAPEUTIC-M TABS MULTIPLE VITAMINS-MINERALS Inactive AMBIEN 10 MG TABS 1 q hs prn AMBIEN 10 MG TABS 223426 ZOLPIDEM TARTRATE Inactive CLONIDINE HCL 0.2 MG TABS 1 q 8 hrs as needed -greater than 160-htn CLONIDINE HCL 0.2 MG TABS 842849 CLONIDINE HCL Inactive ANTIVERT 25 MG TABS 1 q 6 hrs prn ANTIVERT 25 MG TABS MECLIZINE HCL Inactive NEURONTIN 400 MG CAPS Take one by mouth 3 times daily, morning, afternoon and evening.] NEURONTIN 400 MG CAPS 927856 GABAPENTIN Inactive IMDUR 120 MG [id number] 1 qd IMDUR 120 MG [id number] ISOSORBIDE MONONITRATE Inactive CVS MILK OF MAGNESIA [...] for arthritis pain MOBIC 15 MG TABS 786760 MELOXICAM Inactive LEVEMIR 100 UNIT/ML SOLN 5 units sub-q at bedtime LEVEMIR 100 UNIT/ML SOLN INSULIN DETEMIR Inactive SULFAMETHOXAZOLE-TMP DS 800-160 MG TABS 1 TAB PO BID SULFAMETHOXAZOLE-TMP DS 800-160 MG TABS 019133 SULFAMETHOXAZOLE-TRIMETHOPRIM Inactive AMBIEN 10 MG TAB 1 tab by mouth at bedtime as needed for sleep AMBIEN 10 MG TAB 495184 ZOLPIDEM TARTRATE Inactive POTASSIUM CHLORIDE CHELA ER 20 MEQ CR-TABS 1 tab PO daily POTASSIUM CHLORIDE CHELA ER 20 MEQ CR-TABS POTASSIUM CHLORIDE CHELA CR Inactive MIRALAX POWD 17 gms in 4 oz water or juice daily MIRALAX POWD 747338 POLYETHYLENE GLYCOL 3350 Inactive CVS VITAMIN C 500 MG TABS 1 po daily CVS VITAMIN C 500 MG TABS 851034 ASCORBIC ACID Inactive COZAAR 100 MG TABS 1 qd COZAAR 100 MG TABS 870058 LOSARTAN POTASSIUM Inactive ALLOPURINOL 300 MG TABS 1 qd ALLOPURINOL 300 MG TABS 980070 ALLOPURINOL Inactive BUDEPRION SR 150 MG [id number] 1 bid BUDEPRION SR 150 MG [id number] BUPROPION HCL Inactive DILANTIN 100 MG CAPS 3 cap tid DILANTIN 100 MG CAPS 979975 PHENYTOIN SODIUM EXTENDED Inactive HYDROCODONE-ACETAMINOPHEN 7.5-325 MG TABS 1 q 6 hrs prn HYDROCODONE-ACETAMINOPHEN 7.5-325 MG TABS 079818 HYDROCODONE- ACETAMINOPHEN Inactive GABAPENTIN 300 MG CAPS 1 CAP PO TID GABAPENTIN 300 MG CAPS 474161 GABAPENTIN Inactive GABAPENTIN 400 MG ORAL CAPS 1 TAB BY MOUTH THREE TIMES DAILY 2015 GABAPENTIN 400 MG ORAL CAPS 245125 GABAPENTIN Inactive METOPROLOL TARTRATE 50 MG ORAL TABS 1 TAB BY MOUTH TWICE DAILY METOPROLOL TARTRATE 50 MG ORAL TABS 385845 METOPROLOL TARTRATE Inactive ZYLOPRIM 300 MG TAB 1 BY MOUTH DAILY ZYLOPRIM 300 MG TAB 947993 ALLOPURINOL Inactive MECLIZINE HCL 25 MG CHEW TAB 1 four times a day as needed for dizziness 02/21 MECLIZINE HCL 25 MG CHEW TAB 516481 MECLIZINE HCL Inactive ATIVAN 0.5 MG TABS Take 1 tablet 2x daily PRN ATIVAN 0.5 MG TABS 800826 LORAZEPAM Inactive CELEXA 20 MG TABS Take 1 tablet 1x daily CELEXA 20 MG TABS 392342 CITALOPRAM HYDROBROMIDE Inactive FENTANYL 25 MCG/HR PT72 Apply to clean skin and change every 72 hours. 07/03 FENTANYL 25 MCG/HR PT72 312113 FENTANYL Inactive Advance Directives Directive Description Start Date ADVANCE DIRECTIVE Immunizations Vaccine Administration Date Value Standard Description influenza immunization (Flu Vax) has been administered Influenza - Unspecified Formulation [CVX88] influenza virus vaccine, unspecified formulation pneumococcal immunization administered Pneumovax 23 [CVX33] pneumococcal polysaccharide vaccine, 23 valent Vital Signs Date Name Value Unit Range Description blood pressure, diastolic, supine 88 mm[Hg] BP [...] E&M - 3141-9 407 [lb_av] Weight Measured Diagnostic Results Date Name [...] serum 4.1 mmol/L sodium, serum 139 mmol/L Encounters Code Encounter Date Provider Facility CPT-59037 Level 3 Est. Patient 19:05:03 CDT Jonel Hemphill MD [facility]-05669 Level 3 Est. Patient 17:30:47 CDT Kevin Link MD [facility]-84079 Level 3 Est. Patient 18:04:07 CDT Jonel Hemphill MD [facility]-00308 Level 3 Est. Patient 17:18:03 CDT Jonel Hemphill MD [facility]-75655 Level 3 Est. Patient 21:58:03 PRODUCT DEVELOPMENT INTERN Jonel Hemphill MD [facility]-87698 Level 4 Est. Patient 18:03:14 CDT Jonel Hemphill MD [facility]74248 Level 4 Est. Patient 13:24:53 CDT Jonel Yeager [facility]62796 Level 4 Est. Patient 09:15:44 CDT Jonel Hemphill MD [facility]-34773 Level 4 Est. Patient 19:16:01 CDT Jonel Hemphill MD [facility]-26451 Level 4 Est. Patient 11:25:16 CDT Jonel Hemphill MD [facility] CPT-10473 Level 4 Est. Patient 09:00:40 CDT Jonel Hemphill MD [facility]-07221 Level 4 Est. Patient 14:53:58 CDT Jonel Hemphill MD [facility] CPT-31477 Level 4 Est. Patient 22:59:01 CDT Jonel Hemphill MD [facility]-63501 Level 4 Est. Patient 09:29:57 CDT Jonel Hemphill MD [facility]-09422 Level 4 Est. Patient 12:35:53 PRODUCT DEVELOPMENT INTERN Jonel Hemphill MD [facility]-17366 Level 4 Est. Patient 22:36:09 PRODUCT DEVELOPMENT INTERN Jonel Hemphill MD [facility]-09942 Level 2 Est. Patient 15:14:15 PRODUCT DEVELOPMENT INTERN Mayco Shah APRN [facility] CPT-36975 Level 4 Est. Patient 10:36:22 PRODUCT DEVELOPMENT INTERN Jonel Hemphill MD [facility] CPT-36833 Level 4 Est. Patient 22:01:13 PRODUCT DEVELOPMENT INTERN Jonel Hemphill MD [facility]-53511 Level 3 Est. Patient 21:50:37 PRODUCT DEVELOPMENT INTERN Jonel Hemphill MD [facility] CPT-02357 Level 4 Est. Patient 15:02:43 CDT Rubin Pierre MD [facility] CPT-34153 Level 4 Est. Patient 14:27:35 CDT Jonel Hemphill MD [facility]-71459 Level 4 Est. Patient 12:41:17 CDT Jonel Hemphill MD [facility] CPT-91509 Level 4 Est. Patient 16:18:55 CDT Jonel Hemphill MD [facility] CPT-70597 Level 4 Est. Patient 17:58:05 CDT Jonel Hemphill MD [facility] CPT-79566 Level 4 Est. Patient 22:10:06 CDT Jonel Hemphill MD [facility] CPT-33336 Level 4 Est. Patient 13:22:09 CDT Jonel Hemphill MD [facility] CPT-52014 Level 4 Est. Patient 22:52:17 PRODUCT DEVELOPMENT INTERN Jonel Hemphill MD [facility] CPT-80597 Level 3 Est. Patient 22:34:10 PRODUCT DEVELOPMENT INTERN Jonel Hemphill MD [facility] CPT-70165 Level 4 Est. Patient 07:49:20 PRODUCT DEVELOPMENT INTERN Jonel Hemphill MD [facility] Skilled CPT-91347 Level 3 Est. Patient 08:28:27 PRODUCT DEVELOPMENT INTERN Jonel Hemphill MD [facility] Procedures Code Procedure Name Date Entry Date Standard Description CPT-02512 Level 3 Custodial 08:18:30 CDT CPT-64013 Level 3 Custodial 19:03:14 CDT CPT-87607 Level 3 Custodial 17:42:11 CDT CPT-26642 Level 3 Custodial 16:04:10 CDT CPT-06957 Level 3 Custodial 19:38:15 PRODUCT DEVELOPMENT INTERN CPT-28327 Level 3 Custodial 19:28:48 PRODUCT DEVELOPMENT INTERN CPT-03231 Level 3 Custodial 18:02:20 PRODUCT DEVELOPMENT INTERN CPT-66678 Level 3 Custodial 15:02:14 PRODUCT DEVELOPMENT INTERN CPT-29336 Level 3 Custodial 12:25:37 CDT CPT-14499 Level 3 Custodial 12:48:39 CDT CPT-41342 Level 3 Custodial 17:39:14 CDT CPT-97312 Level 3 Custodial 13:32:58 CDT CPT-15722 Level 3 Custodial 17:43:43 CDT CPT-35914 Level 3 Custodial 12:03:33 PRODUCT DEVELOPMENT INTERN CPT-31318 Level 3 Custodial 18:47:28 PRODUCT DEVELOPMENT INTERN CPT-11367 Level 3 Custodial 17:35:26 PRODUCT DEVELOPMENT INTERN CPT-46014 Level 3 Custodial 18:44:49 PRODUCT DEVELOPMENT INTERN CPT-73858 Level 3 Custodial 18:17:33 CDT CPT-90220 Level 3 Custodial 09:25:33 CDT CPT-11521 Level 3 Custodial 19:11:57 CDT CPT-96831 Level 3 Custodial 09:25:52 CDT CPT-77736 Level 3 Custodial 14:23:59 CDT CPT-19523 Level 3 Custodial 12:09:43 CDT CPT-94569 Level 3 Custodial 09:37:40 CDT CPT-79163 Level 3 Custodial 18:23:02 CDT CPT-06777 Level 3 Custodial 14:09:06 CDT CPT-80481 Level 3 Custodial 12:43:27 PRODUCT DEVELOPMENT INTERN CPT-34508 Postop F/U Visit 14:10:15 PRODUCT DEVELOPMENT INTERN CPT-23454 [facility] 17:07:14 PRODUCT DEVELOPMENT INTERN CPT-04506 Level 3 Custodial 16:14:37 PRODUCT DEVELOPMENT INTERN CPT-25751 Port a cath flush 11:47:42 CDT CPT-31355 Port a cath flush 08:29:49 CDT CPT-OV Office Visit 14:27:58 PRODUCT DEVELOPMENT INTERN
--- OUTSIDE RECORDS SUMMARY | 2016-08-07 10:51 | XMS REPORT | Clinical Summary ---
Author Author Admin, [place] Organization [facility] Address Unknown Phone Unavailable Allergies, Adverse 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, EXTRACTOR FILLER V58.69 Resolved Jonel Hemphill MD Long-term (current) [...] Coronary atherosclerosis of unspecified type of vessel, southern ute or graft FH DIABETES V18.0 Resolved Jonel [...] Coronary atherosclerosis of unspecified type of vessel, southern ute or graft CONSTIPATION 564.00 Resolved Jonel Hemphill [...] abscess of leg, except foot 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 USE, DETENTION ICD-V58.69 Inactive Jonel Hemphill MD DIABETES, TYPE [...] Instructions Start Date Stop Date Generic Name ND Status Provider Patient Instruction ULORIC 40 MG ORAL TABS 1 daily for gout. FEBUXOSTAT 85031887562 Active Marleni Romero Active HYDROCODONE-ACETAMINOPHEN 7.5-325 MG TABS 1 TAB PO Q 6 HRS PRN HYDROCODONE-ACETAMINOPHEN 90197893649 Active Jonel Hemphill MD Active METFORMIN HCL 1000 MG TABS 1 tablet by mouth twice daily METFORMIN HCL 72229095287 Active Marleni Romero Active FENTANYL 12 MCG/HR PT72 Apply to clean, dry skin and change every 72 hours FENTANYL 18874589485 Active Mattie Gates APRN Active KLOR-CON 20 MEQ ORAL PACK 1 BY MOUTH DAILY POTASSIUM CHLORIDE 15850843932 Active Marleni Romero Active A+D FIRST AID EXT OINT APPLY OINTMENT AND RUFINO WRAPS TO LOWER EXTEREMETIES DAILY SKIN PROTECTANTS, MISC. 55971863199 Active Jonel Hemphill MD Active NYSTATIN 139608 UNIT/GM EXT OINT APPLY PRN TID TO GAULDING/RASH IN ABDOMINAL FOLDS NYSTATIN 52104812484 Active Jonel Hemphill MD Active ATIVAN 0.5 MG TABS Take 1 tablet 2x daily PRN LORAZEPAM 79821258910 Active Jonel Hemphill MD Active GABAPENTIN 400 MG ORAL CAPS 1 TAB BY MOUTH THREE TIMES DAILY GABAPENTIN 64193571693 Active Jonel Hemphill MD Active GABAPENTIN 300 MG CAPS 1 CAP PO TID GABAPENTIN 16471205492 No Longer Active Jonel Hemphill MD Active DILANTIN 100 MG ORAL CAPS 1 THREE TIMES DAILY FOR SEIZURES PHENYTOIN SODIUM EXTENDED 32137758490 Active Marleni Romero Active CPAP APPLY AT HS CPAP Active Jonel Hemphill MD Active METOPROLOL TARTRATE 50 MG ORAL TABS 1 TAB BY MOUTH TWICE DAILY METOPROLOL TARTRATE 30509993380 Active Jonel Hemphill MD Active LISINOPRIL 40 MG TABS 1 tablet by mouth twice daily, for blood pressure 03/31 LISINOPRIL 16161357188 Active Jonel Hemphill MD Active BUPROPION HCL ER (SR) 150 MG [id number] 1 twice a day for depression BUPROPION HCL 80267378237 Active Jonel Hemphill MD Active MULTIVITAMINS CAPS 1 DAILY MULTIPLE VITAMIN 43216388113 Active Jonel Hemphill MD Active ZYLOPRIM 300 MG TAB 1 BY MOUTH DAILY ALLOPURINOL 84687480798 Active Jonel Hemphill MD Active HYDROCODONE-ACETAMINOPHEN 7.5-325 MG TABS 1 q 6 hrs prn HYDROCODONE-ACETAMINOPHEN 69674355623 No Longer Active Jonel Hemphill MD Active DILANTIN 100 MG CAPS 3 cap tid PHENYTOIN SODIUM EXTENDED 10145308559 No Longer Active Jonel Hemphill MD Active BUDEPRION SR 150 MG [id number] 1 bid BUPROPION HCL 94138581757 No Longer Active Jonel Hemphill MD Active ALLOPURINOL 300 MG TABS 1 qd ALLOPURINOL 97999901519 No Longer Active Jonel Hemphill MD Active COZAAR 100 MG TABS 1 qd LOSARTAN POTASSIUM 71276799945 No Longer Active Jonel Hemphill MD Active CVS VITAMIN C 500 MG TABS 1 po daily ASCORBIC ACID 27850310576 No Longer Active Jonel Hemphill MD Active MIRALAX POWD 17 gms in 4 oz water or juice daily POLYETHYLENE GLYCOL 3350 92497803199 No Longer Active Jonel Hemphill MD Active POTASSIUM CHLORIDE CHELA ER 20 MEQ CR-TABS 1 tab PO daily POTASSIUM CHLORIDE CHELA CR 54237843293 No Longer Active Jonel Hemphill MD Active AMBIEN 10 MG TAB 1 tab by mouth at bedtime as needed for sleep ZOLPIDEM TARTRATE 99873246006 No Longer Active Jonel Hemphill MD Active SULFAMETHOXAZOLE-TMP DS 800-160 MG TABS 1 TAB PO BID SULFAMETHOXAZOLE-TRIMETHOPRIM 40848150513 No Longer Active Jonel Hemphill MD Active NORCO 5-325 MG TABS 1-2 TAB Q 6 HRS PRN HYDROCODONE- ACETAMINOPHEN 62072666370 Active Jonel Hemphill MD Active LEVEMIR 100 UNIT/ML SOLN 5 units sub-q at bedtime INSULIN DETEMIR 66813256864 No Longer Active Tova Perez Active MOBIC 15 MG TABS 1 tab PO daily for arthritis pain MELOXICAM 27725229543 No Longer Active Tova Perez Active GLUCAGEN 1 MG SOLR INJECT 1MG IM IF BS LESS THAN 60 & RES. IS UNABLE TO SWALLOW GLUCAGON HCL (RDNA) 25730215229 No Longer Active Tova Perez Active CVS MILK OF MAGNESIA 1200 MG/15ML SUSP 30 ml daily for constipation MAGNESIUM HYDROXIDE 06971637931 No Longer Active Tova Perez Active IMDUR 120 MG [id number] 1 qd ISOSORBIDE MONONITRATE 30402287717 No Longer Active Tova Perez Active PHENYTOIN 50 MG CHEW 1 TAB PO BID PHENYTOIN 55105290777 Active Tova Perez Active MECLIZINE HCL 25 MG CHEW TAB 1 four times a day as needed for dizziness 02/21 MECLIZINE HCL 27163137968 Active Tova Perez Active NEURONTIN 400 MG CAPS Take one by mouth 3 times daily, morning, afternoon and evening.] GABAPENTIN 68950885652 No Longer Active Tova Perez Active ANTIVERT 25 MG TABS 1 q 6 hrs prn MECLIZINE HCL 66916001101 No Longer Active Jonel Hemphill MD Active CLONIDINE HCL 0.2 MG TABS 1 q 8 hrs as needed -greater than 160-htn CLONIDINE HCL 48257089338 No Longer Active Jonel Hemphill MD Active AMBIEN 10 MG TABS 1 q hs prn ZOLPIDEM TARTRATE 70862775583 No Longer Active Jonel Hemphill MD Active GNP THERAPEUTIC-M TABS 1 qd MULTIPLE VITAMINS- MINERALS 50392589992 No Longer Active Jonel Hemphill MD Active METOPROLOL TARTRATE 50 MG TABS 1 bid METOPROLOL TARTRATE 40550915816 No Longer Active Jonel Hemphill MD Active METFORMIN HCL 500 MG TABS 1 bod with food METFORMIN HCL 91022783887 No Longer Active Jonel Hemphill MD Active LISINOPRIL 40 MG TABS 1 qd LISINOPRIL 53168796022 No Longer Active Jonel Hemphill MD Active HYDROCHLOROTHIAZIDE 25 MG TABS 1 qd HYDROCHLOROTHIAZIDE 98149390347 No Longer Active Jonel Hemphill MD Active DURAGESIC-25 25 MCG/HR PT72 place 1 patch on the skin q72hrs for pain FENTANYL 18029581444 No Longer Active Jonel Hemphill MD Active FENTANYL 75 MCG/HR PT72 place 1 patch on skin q72hrs fr pain 2012 FENTANYL 42232009064 No Longer Active Jonel Hemphill MD Active LASIX 20 MG TABS 1 tab PO q morning FUROSEMIDE 38827910072 Active Jonel Hemphill MD Active FUROSEMIDE 40 MG TABS 1 q am FUROSEMIDE 93373799756 No Longer Active Jonel Hemphill MD Active HEPARIN (PORCINE) LOCK FLUSH 100 UNIT/ML SOLN Flush port a cath monthly every three week on with Heparin and NS HEPARIN LOCK FLUSH 90854121854 Active Jonel Hemphill MD Active FENTANYL 100 MCG/HR PT72 Apply every 3 days FENTANYL 99681313224 Active Mattie Gaets APRN Active FENTANYL 25 MCG/HR PT72 Apply to clean skin and change every 72 hours. 07/03 FENTANYL 14371015872 No Longer Active Jonel Hemphill MD Active FENTANYL 50 MCG/HR PT72 place 1 patch on skin q72 hours FENTANYL 59821766504 No Longer Active Mayco Shah APRN Active CELEXA 20 MG TABS Take 1 tablet 1x daily CITALOPRAM HYDROBROMIDE 27451937744 Active Jonel Hemphill MD Active DURAGESIC-12 12 MCG/HR PT72 APPLY PATCH TO SKIN AND CHANGE EVERY 72 HOURS, ROTATE SITES FENTANYL 62672782577 No Longer Active Fozia HERNANDEZ Active FUROSEMIDE 20 MG TABS 1 qd FUROSEMIDE 92646719953 No Longer Active Mahogany [place] Active ADULT ASPIRIN EC LOW STRENGTH 81 MG TBEC 1 qd ASPIRIN 35321076654 Active MARY Perez Active FUROSEMIDE 20 MG TABS 1 qd FUROSEMIDE 20 MG TABS 082874 FUROSEMIDE Inactive DURAGESIC-12 12 MCG/HR PT72 APPLY PATCH TO SKIN AND CHANGE EVERY 72 HOURS, ROTATE SITES DURAGESIC-12 12 MCG/HR PT72 003248 FENTANYL Inactive FENTANYL 50 MCG/HR PT72 place 1 patch on skin q72 hours FENTANYL 50 MCG/HR PT72 232428 FENTANYL Inactive FUROSEMIDE 40 MG TABS 1 q am FUROSEMIDE 40 MG TABS 655006 FUROSEMIDE Inactive FENTANYL 75 MCG/HR PT72 place 1 patch on skin q72hrs fr pain 2012 FENTANYL 75 MCG/HR PT72 583734 FENTANYL Inactive DURAGESIC-25 25 MCG/HR PT72 place 1 patch on the skin q72hrs for pain DURAGESIC-25 25 MCG/HR PT72 996727 FENTANYL Inactive HYDROCHLOROTHIAZIDE 25 MG TABS 1 qd HYDROCHLOROTHIAZIDE 25 MG TABS 736479 HYDROCHLOROTHIAZIDE Inactive LISINOPRIL 40 MG TABS 1 qd LISINOPRIL 40 MG TABS 149661 LISINOPRIL Inactive METFORMIN HCL 500 MG TABS 1 bod with food METFORMIN HCL 500 MG TABS 517908 METFORMIN HCL Inactive METOPROLOL TARTRATE 50 MG TABS 1 bid METOPROLOL TARTRATE 50 MG TABS 823394 METOPROLOL TARTRATE Inactive GNP THERAPEUTIC-M TABS 1 qd GNP THERAPEUTIC-M TABS MULTIPLE VITAMINS-MINERALS Inactive AMBIEN 10 MG TABS 1 q hs prn AMBIEN 10 MG TABS 971178 ZOLPIDEM TARTRATE Inactive CLONIDINE HCL 0.2 MG TABS 1 q 8 hrs as needed -greater than 160-htn CLONIDINE HCL 0.2 MG TABS 799067 CLONIDINE HCL Inactive ANTIVERT 25 MG TABS 1 q 6 hrs prn ANTIVERT 25 MG TABS MECLIZINE HCL Inactive NEURONTIN 400 MG CAPS Take one by mouth 3 times daily, morning, afternoon and evening.] NEURONTIN 400 MG CAPS 667756 GABAPENTIN Inactive IMDUR 120 MG [id number] 1 qd IMDUR 120 MG [id number] ISOSORBIDE MONONITRATE Inactive CVS MILK OF MAGNESIA [...] for arthritis pain MOBIC 15 MG TABS 015608 MELOXICAM Inactive LEVEMIR 100 UNIT/ML SOLN 5 units sub-q at bedtime LEVEMIR 100 UNIT/ML SOLN INSULIN DETEMIR Inactive SULFAMETHOXAZOLE-TMP DS 800-160 MG TABS 1 TAB PO BID SULFAMETHOXAZOLE-TMP DS 800-160 MG TABS 943736 SULFAMETHOXAZOLE-TRIMETHOPRIM Inactive AMBIEN 10 MG TAB 1 tab by mouth at bedtime as needed for sleep AMBIEN 10 MG TAB 719686 ZOLPIDEM TARTRATE Inactive POTASSIUM CHLORIDE CHELA ER 20 MEQ CR-TABS 1 tab PO daily POTASSIUM CHLORIDE CHELA ER 20 MEQ CR-TABS POTASSIUM CHLORIDE CHELA CR Inactive MIRALAX POWD 17 gms in 4 oz water or juice daily MIRALAX POWD 702333 POLYETHYLENE GLYCOL 3350 Inactive CVS VITAMIN C 500 MG TABS 1 po daily CVS VITAMIN C 500 MG TABS 206273 ASCORBIC ACID Inactive COZAAR 100 MG TABS 1 qd COZAAR 100 MG TABS 575576 LOSARTAN POTASSIUM Inactive ALLOPURINOL 300 MG TABS 1 qd ALLOPURINOL 300 MG TABS 277009 ALLOPURINOL Inactive BUDEPRION SR 150 MG [id number] 1 bid BUDEPRION SR 150 MG [id number] BUPROPION HCL Inactive DILANTIN 100 MG CAPS 3 cap tid DILANTIN 100 MG CAPS 473997 PHENYTOIN SODIUM EXTENDED Inactive HYDROCODONE-ACETAMINOPHEN 7.5-325 MG TABS 1 q 6 hrs prn HYDROCODONE-ACETAMINOPHEN 7.5-325 MG TABS 200366 HYDROCODONE- ACETAMINOPHEN Inactive GABAPENTIN 300 MG CAPS 1 CAP PO TID GABAPENTIN 300 MG CAPS 636556 GABAPENTIN Inactive FENTANYL 25 MCG/HR PT72 Apply to clean skin and change every 72 hours. 07/03 FENTANYL 25 MCG/HR PT72 640822 FENTANYL Inactive Advance Directives Directive Description Start [...] glucose 239 mg/dL creatinine, serum 1.17 mg/dL sodium, serum 144 mmol/L potassium, serum 4.6 mmol/L blood glucose 187 mg/dL creatinine, serum 0.85 mg/dL aspartate aminotransferase (SGOT), serum 33 U/L alanine aminotransferase (SGPT), serum 42 U/L alkaline phosphatase, serum 60 U/L hemoglobin A1C, blood, as % of total hemoglobin 7.2 % Chart Maintenance: Outside labs entered on flowsheet - Hematology leukocyte count, blood 6.9 10*3/mm3 hemoglobin, blood 14.4 g/dL platelet count 113 10*3/mm3 Lab Report: HGBA1C - Chemistry hemoglobin A1C, blood, as % of total hemoglobin 6.8 % 4.3-6.0 Encounters Code Encounter Date Provider Facility CPT-63107 Level 3 Est. Patient 17:30:47 CDT Kevin Link MD [facility] CPT-66912 Level 3 Est. Patient 18:04:07 CDT Jonel Hemphill MD [facility] CPT-30683 Level 3 Est. Patient 17:18:03 CDT Jonel Hemphill MD [facility] CPT-25103 Level 3 Est. Patient 21:58:03 ADULT SPECIALIST Jonel Hemphill MD [facility] CPT-62585 Level 4 Est. Patient 18:03:14 CDT Jonel Yeager [facility]-34757 Level 4 Est. Patient 13:24:53 CDT Jonel Yeager [facility]-99936 Level 4 Est. Patient 09:15:44 CDT Jonel Yeager [facility]-04879 Level 4 Est. Patient 19:16:01 CDT [facility]el [facility]-23111 Level 4 Est. Patient 11:25:16 CDT Jonel Hemphill MD [facility]-17634 Level 4 Est. Patient 09:00:40 CDT [facility]-82185 Level 4 Est. Patient 14:53:58 CDT Jonel Hemphill MD [facility]-88854 Level 4 Est. Patient 22:59:01 CDT Jonel Hemphill MD [facility]-76655 Level 4 Est. Patient 09:29:57 CDT Jonel Hemphill MD [facility]-57583 Level 4 Est. Patient 12:35:53 ADULT SPECIALIST Jonel Hemphill MD [facility]-49295 Level 4 Est. Patient 22:36:09 ADULT SPECIALIST Jonel Hemphill MD [facility]-33850 Level 2 Est. Patient 15:14:15 ADULT SPECIALIST Mayco Shah APRN [facility]-97577 Level 4 Est. Patient 10:36:22 ADULT SPECIALIST Jonel Hemphill MD [facility]-94386 Level 4 Est. Patient 22:01:13 ADULT SPECIALIST Jonel Hemphill MD [facility]-17163 Level 3 Est. Patient 21:50:37 ADULT SPECIALIST Jonel Hemphill MD [facility] CPT-94757 Level 4 Est. Patient 15:02:43 CDT Rubin iPerre MD [facility]-02677 Level 4 Est. Patient 14:27:35 CDT Jonel Hemphill MD [facility]-48689 Level 4 Est. Patient 12:41:17 CDT Jonel Hemphill MD [facility]-85349 Level 4 Est. Patient 16:18:55 CDT Jonel Hemphill MD [facility] CPT-37651 Level 4 Est. Patient 17:58:05 CDT Jonel Hemphill MD [facility] CPT-48992 Level 4 Est. Patient 22:10:06 CDT Jonel Hemphill MD [facility] CPT-63471 Level 4 Est. Patient 13:22:09 CDT Jonel Hemphill MD [facility] CPT-99018 Level 4 Est. Patient 22:52:17 ADULT SPECIALIST Jonel Hemphill MD [facility] CPT-42826 Level 3 Est. Patient 22:34:10 ADULT SPECIALIST Jonel Hemphill MD [facility] CPT-70093 Level 4 Est. Patient 07:49:20 ADULT SPECIALIST Jonel Hemphill MD [facility] Skilled CPT-10443 Level 3 Est. Patient 08:28:27 ADULT SPECIALIST Jonel Hemphill MD [facility] Procedures Code Procedure Name Date Entry Date Standard Description CPT-93849 Level 3 Usp 17:42:11 CDT CPT-30442 Level 3 Usp 16:04:10 CDT CPT-15095 Level 3 Usp 19:38:15 ADULT SPECIALIST CPT-52571 Level 3 Usp 19:28:48 ADULT SPECIALIST CPT-17315 Level 3 Usp 18:02:20 ADULT SPECIALIST CPT-69825 Level 3 Usp 15:02:14 ADULT SPECIALIST CPT-38167 Level 3 Usp 12:25:37 CDT CPT-21391 Level 3 Usp 12:48:39 CDT CPT-46072 Level 3 Usp 17:39:14 CDT CPT-30752 Level 3 Usp 13:32:58 CDT CPT-98249 Level 3 Usp 17:43:43 CDT CPT-17043 Level 3 Usp 12:03:33 ADULT SPECIALIST CPT-08520 Level 3 Usp 18:47:28 ADULT SPECIALIST CPT-49106 Level 3 Usp 17:35:26 ADULT SPECIALIST CPT-32561 Level 3 Usp 18:44:49 ADULT SPECIALIST CPT-43512 Level 3 Usp 18:17:33 CDT CPT-17161 Level 3 Usp 09:25:33 CDT CPT-08439 Level 3 Usp 19:11:57 CDT CPT-14905 Level 3 Usp 09:25:52 CDT CPT-21519 Level 3 Usp 14:23:59 CDT CPT-38795 Level 3 Usp 12:09:43 CDT CPT-39899 Level 3 Usp 09:37:40 CDT CPT-00861 Level 3 Usp 18:23:02 CDT CPT-44457 Level 3 Usp 14:09:06 CDT CPT-55136 Level 3 Usp 12:43:27 ADULT SPECIALIST CPT-84005 Postop F/U Visit 14:10:15 ADULT SPECIALIST CPT-44537 Sono Soft Tissue Head and Neck 17:07:14 ADULT SPECIALIST CPT-00647 Level 3 Usp 16:14:37 ADULT SPECIALIST CPT-44039 Port a cath flush 11:47:42 CDT CPT-09927 Port a cath flush 08:29:49 CDT CPT-OV Office Visit 14:27:58 ADULT SPECIALIST
--- OUTSIDE RECORDS SUMMARY | 2016-08-07 10:52 | XMS REPORT ---
Author Author [facility] Medical Staff Organization [facility] Address [address], [place] [id number] Phone [phone] Summary purpose TRANSITION OF CARE AUTO GENERATION [...] Relevant diagnostic tests and/or laboratory data RESULTS Hematology [id number]:00:00 Result Normal Range Units WBC 9.7 4.8-10.8 103/uL RBC L 4.0 4.7-6.1 106/uL HGB L 12.9 13.0-18.0 g/dl HCT L 38.1 41.9-52.0 % MCV H 94.8 80-94 FL MCH H 32.1 27-31 pg MCHC 33.9 33-37 g/dl RDW 13.4 11.5-15.5 % PLT L 112 130-400 103/uL MPV H 11.3 7.3-10.4 FL Neutro % H 84.4 40-70 % Lymph % L 10.2 20-40 % [place] % 4.5 0-10.0 % Eos % 0.2 0-7.0 % Baso % 0.2 0-2 % Neutro # H 8.2 1.5-7.5 103/uL Lymph # 1.0 0.9-4.0 103/uL [place] # 0.4 0-0.8 103/uL Eos # 0.0 0-0.6 103/uL Baso # 0.0 0-0.1 103/uL Radiology Results [id number]:00 Result Normal Range Units MPV H 11.3 7.3-10.4 FL History of procedures No procedures recorded for this patient visit. Functional status Functional Status Finding Observation Time Abdomen Appearance obese :50 Abdomen soft :50 Bowel Sounds present :50 Wagner no :50 Urination normal :50 Quality sym/unlabored :50 Cough non-productive :50 Secretions no :50 Breath Sounds RUL clear :50 Breath Sounds RML clear :50 Breath Sounds RLL clear :50 Breath Sounds CECILIA clear :50 Breath Sounds LLL clear :50 Airway natural :50 Chest Tube no :50 Oxygen no :00 Temp >100.4 yes :50 Temp <96.8 no :50 Chills with rigors no :50 HR > 90bpm yes :50 Respirations > 20 yes :50 Systolic <90 no :50 headache stiff neck no :50 IV Site Location L Arm :00 IV Type peripheral :00 IV Site Information discontinued :00 IV Site Ron 22 :50 IV Site Appearance WNL :50 IV Site Color clear :50 IV Site Patent yes :50 Dressing Type occlusive :50 Nursing Note [facility] was here to Get Pt at this time Pt was off of floor in stable condtion :00 Vital signs Type Value Date Respiration Rate 20breaths per minute :00 Pulse 95beats per minute :00 Oxygen Saturation 99% :00 BP Systolic 119mmHg :00 BP Diastolic 50mmHg :00 Temperature 98.6F [id number]:50 Social history No Social History or smoking status observations were recorded for this visit. ( Unknown if ever smoked.) Treatment Plan No treatment plan text is available for this visit. Hospital discharge instructions Dismissal Condition good Disposition on DC home DC Inst/Educ Give yes PNE Vac unknown Flu Vac 2014
--- OUTSIDE RECORDS SUMMARY | 2016-08-07 10:52 | XMS REPORT ---
Author Author [facility] Medical Staff Organization [facility] Address [address] [place] [address] Phone [phone] Summary purpose TRANSITION OF CARE AUTO GENERATION [...] Relevant diagnostic tests and/or laboratory data RESULTS Routine Urinalysis [id number]:30:00 Result Normal Range Units Color [place] Clarity Hazy Specific [place] 1.034 pH 5.0 4.5-8.0 Glucose NEGATIVE Bilirubin NEGATIVE Ketones TRACE Protein 2+ Urobilinogen H 1.0 0-0.2 E.U./dL Nitrites NEGATIVE Blood 1+ Leukocytes NEGATIVE WBCs 5-10 RBCs 5-10 Squamous Epithelial No Squamous Epithelial Cells seen. Bacteria Occasional Blood Cultures [id number]:40:00 Blood Culture Plate Date and Time 03/21/2015 07:45 SourceBLOOD CULTURE REPORT Growth of Group B Streptococcus Agalactiae. Sensitivity to follow. Release Date/Time: 03/22/2015 09:16 GRAM STAIN Gram Positive Cocci Release Date/Time: 03/21/2015 18:37 ORGID #1:STREPTOCOCCUS AGALACTIAE - ( GROUP B) Release Date/Time: 03/24/2015 08:55 This organism does not demonstrate inducible Clindamycin resistance in vitro. Sensitivity #1: STRAGA AMPICILLIN 0.12S AZITHROMYCIN 1 I CEFTRIAXONE<=0.25 S CLINDAMYCIN<=0.06 S CEFOTAXIME <=0.25 S CEFEPIME <=0.25 S LEVOFLOXACIN 1 S PENICILLIN 0.06S TETRACYCLINE > 4 R VANCOMYCIN 0.5 S :00:00 Blood Culture Plate Date and Time 03/21/2015 07:22 SourceBLOOD CULTURE REPORT growth of Group B Streptococcus agalactiae Sensitivity to follow. Release Date/Time: 03/22/2015 09:18 PORT DRAW GRAM STAIN Gram Positive Cocci Release Date/Time: 03/21/2015 18:38 PORT DRAW ORGID #1:STREPTOCOCCUS AGALACTIAE - ( GROUP B) Release Date/Time: 03/24/2015 08:56 PORT DRAW Presumptive Identification. Refer to prior positive for complete identification and susceptibility testing. Chemistry :40:00 Result Normal Range Units Lactic Acid H 3.3 0.4-2.0 mmol/L :00:00 Result Normal Range Units Sodium 137 134-145 mEq/l Potassium 4.5 3.5-5.1 mEq/l Chloride 98 98-107 mEq/l CO2 H 28.8 22-28 mEq/l Glucose H 281 70-105 mg/dl BUN 15 7-18 mg/dl Creatinine 1.10 0.6-1.3 mg/dl Calcium 8.9 8.4-10.2 mg/dl TP - Total Protein 7.4 6.0-8.3 g/dl Albumin 3.9 3.5-5 g/dl Bilirubin - Total 0.4 0.1-1.0 mg/dl AST 17 10-42 IU/L ALT 38 12-65 IU/L ALP 50 39-107 IU/L Osmolality 284.8 280-300 mOsm/L Albumin/Globulin Ratio 1.1 0-8 Anion GAP 10.2 8-16 BUN/Creatinine Ratio 13.6 10-20 BNP- Brain Natriuretic Peptide 193 0-900 pg/ml Estimated GFR 70 >=60 mL/min/1.7 Hematology :00:00 Result Normal Range Units WBC H 17.3 4.8-10.8 103/uL RBC L 4.4 4.7-6.1 106/uL HGB 14.3 13.0-18.0 g/dl HCT 43.5 41.9-52.0 % MCV H 98.6 80-94 FL MCH H 32.4 27-31 pg MCHC L 32.9 33-37 g/dl RDW 14.6 11.5-15.5 % PLT L 101 130-400 103/uL MPV H 12.0 7.3-10.4 FL Segs H 77.0 40-70 % Bands H@ 18.0 0-5 % Lymphs L 1.0 20-40 % [place] 4.0 0-10 % Reference Lab ([facility]) [id number]:55:00 Result Normal Range Units Influenza A & B, Rapid Negative Negative Body Fluid [id number]:30:00 Result Normal Range Units pH 5.0 4.5-8.0 Radiology Results [id number]:20:00 Chest XRay - Port - 1 View PACs Image DATE OF EXAM: 2015 RAD 0292-CHEST 1 VIEW PORT : RADIOLOGY REPORT DATE OF SERVICE: 03/21/15 HISTORY:Shortness of air, fever. PORTABLE AP CHEST 0707 HOURS Comparison is made with 02/14/2013. The current study is suboptimal due to exposure technique and some respiratory motion. No acute process is identified. There are no acute infiltrates. There is cardiomegaly. Pulmonary vessels are normal. Port overlies the left chest. The tip of the catheter is difficult to visualize. IMPRESSION: Cardiomegaly. No other acute chest process. MD ALTHEA Morales/vasyl 03/21/2015 08:08: / 03/21/2015 13:37:12 cc: This document has been electronically Signed by: On: DATE OF EXAM: 2015 RAD 0292-CHEST 1 VIEW PORT : RADIOLOGY REPORT DATE OF SERVICE: 03/21/15 HISTORY:Shortness of air, fever. PORTABLE AP CHEST 0707 HOURS Comparison is made with 02/14/2013. The current study is suboptimal due to exposure technique and some respiratory motion. No acute process is identified. There are no acute infiltrates. There is cardiomegaly. Pulmonary vessels are normal. Port overlies the left chest. The tip of the catheter is difficult to visualize. IMPRESSION: Cardiomegaly. No other acute chest process. MD ALTHEA Morales/vasyl 03/21/2015 08:08: / 03/21/2015 13:37:12 cc: This document has been electronically Signed by: MANPREET NICHOLS MD On: 20153:20P Result Amended on 2015-03-22 at 15:20:26. Previous status was [place]. [id number]:00:00 Result Normal Range Units MPV H 12.0 7.3-10.4 FL History of procedures Procedure Code Code Type Description Date Performed Performing Physician 15146 CPT-4 ROUTINE VENIPUNCTURE 03-21-2015 ANTONIA EDISON 82229 CPT-4 ROUTINE VENIPUNCTURE 03-21-2015 ANTONIA HOGAN 25395 CPT-4 WITHDRAWAL OF ARTERIAL BLOOD 03-21-2015 ANTONIA HOGAN 62091 CPT-4 CHEST X-RAY 03-21-2015 ANTONIA HOGAN 97500 CPT-4 COMPREHEN METABOLIC PANEL 03-21-2015 ANTONIA HOGAN 61815 CPT-4 URINALYSIS, AUTO W/SCOPE 03-21-2015 ANTONIA HOGAN 03487 CPT-4 ASSAY, BLOOD CARBON MONOXIDE 03-21-2015 ANTONIA HOGAN 81758 CPT-4 BLOOD GASES W/O2 SATURATION 03-21-2015 ANTONIA HOGAN 77172 CPT-4 BLOOD METHEMOGLOBIN ASSAY 03-21-2015 ANTONIA HOGAN 40327 CPT-4 ASSAY OF LACTIC ACID 03-21-2015 ANTONIA HOGAN 80067 CPT-4 NATRIURETIC PEPTIDE 03-21-2015 ANTONIA HOGAN 59177 CPT-4 BL SMEAR W/DIFF WBC COUNT 03-21-2015 ANTONIA HOGAN 69177 CPT-4 COMPLETE CBC, AUTOMATED 03-21-2015 ANTONIA HOGAN 37566 CPT-4 BLOOD CULTURE FOR BACTERIA 03-21-2015 ANTONIA HOGAN 07252 CPT-4 BLOOD CULTURE FOR BACTERIA 03-21-2015 ANTONIA HOGAN 30824 CPT-4 CULTURE AEROBIC IDENTIFY 03-21-2015 ANTONIA HOGAN 95070 CPT-4 CULTURE TYPE, IMMUNOLOGIC 03-21-2015 ANTONIA HOGAN 73194 CPT-4 CULTURE TYPE, IMMUNOLOGIC 03-21-2015 ANTONIA HOGAN 44577 CPT-4 MICROBE SUSCEPTIBLE, MAY 03-21-2015 ANTONIA HOGAN 50818 CPT-4 INFLUENZA DNA AMP PROBE 03-21-2015 ANTONIA HOGAN J3370 CPT-4 VANCOMYCIN HCL INJECTION 03-21-2015 ANTONIA HOGAN J7040 CPT-4 NORMAL SALINE SOLUTION INFUS 03-21-2015 ANTONIA HOGAN 68766 CPT-4 EMERGENCY DEPT VISIT 03-21-2015 ANTONIA HOGAN 15697 CPT-4 EMERGENCY DEPT VISIT 03-21-2015 ANTONIATIARA MONTEMAYORMAN P9612 CPT-4 CATHETERIZE FOR URINE SPEC 03-21-2015 ANTONIA EDISON 98269 CPT-4 TX/PRO/DX INJ NEW DRUG ADDON 03-21-2015 ANTONIA EDISON 95298 CPT-4 THER/PROPH/DIAG IV INF, INIT 03-21-2015 ANTONIA HOGAN 32638 CPT-4 HYDRATE IV INFUSION, ADD-ON 03-21-2015 ANTONIA HOGAN J2930 CPT-4 SOLU-MEDROL 125MG VIAL 03-21-2015 ANTONIA HOGAN J2765 CPT-4 METOCLOPRAMIDE HCL INJECTION 03-21-2015 ANTONIA HOGAN J0696 CPT-4 CEFTRIAXONE SODM 250MG INJ 03-21-2015 ANTONIA EDISON J7030 CPT-4 NORMAL SALINE SOLUTION INFUS 03-21-2015 ANTONIA HOGAN A9270 CPT-4 NON-COVERED ITEM OR SERVICE 03-21-2015 ANTONIA HOGAN J7030 CPT-4 NORMAL SALINE SOLUTION INFUS 03-21-2015 ANTONIA HOGAN Functional status Functional Status Finding Observation Time Muscle Strength RLE 3 active ROM 62-05-605124:47 Muscle Strength LLE 3 active ROM 42-40-615169:47 Abdomen Appearance obese 01-94-056334:47 Abdomen soft 57-68-857307:47 Bowel Sounds present 97-27-338563:47 Wagner no 41-35-441285:47 Urination normal 83-01-021605:47 Quality dyspneic :47 Cough non-productive :47 Secretions no :47 Breath Sounds RUL wheezes :47 Breath Sounds RML wheezes :47 Breath Sounds RLL wheezes :47 Breath Sounds CECILIA wheezes :47 Breath Sounds LLL wheezes 45-07-284289:47 Airway natural :47 Chest Tube no :47 Oxygen yes :30 Oxygen Mask Type nasal cannula :30 Oxygen Flow Rate 4 29-55-508830:30 Temp >100.4 yes :47 Temp <96.8 no :47 Chills with rigors no :47 HR > 90bpm yes :47 Respirations > 20 yes :47 Systolic <90 no :47 headache stiff neck no :47 Infection and 2 Yes initiated protocol :47 VAD Type tiffany-cath :00 VAD Location Lt chest :00 VAD Site Info new :00 VAD Site Appearance WNL :00 VAD Site Color clear :00 VAD Site Patent yes :00 VAD Dressing Type occlusive :00 Nursing Note VSS. Pt to EMS stretcher. Pt discharged from ER to [facility] on diversion transfer in fair, stable condition. :30 Vital signs Type Value Date Respiration Rate 24breaths per minute :30 Pulse 125beats per minute :30 Oxygen Saturation 92% :30 BP Systolic 134mmHg :30 BP Diastolic 59mmHg 10-24-899039:30 Temperature 103.1F :30 Height 68inches 42-31-447871:47 Weight 385.8LB 10-73-952107:00 Social history Type Value Smoking Status CURRENT EVERY DAY SMOKER Treatment Plan No treatment plan text is available for this visit. Hospital discharge instructions Dismissal Condition fair Disposition on DC transfered Comment: to [facility] due to diversion DC Inst/Educ Give yes Med/Side Effects Rev yes PNE Vac unknown Flu Vac 2014
--- OUTSIDE RECORDS SUMMARY | 2016-08-07 10:52 | XMS REPORT ---
Author Author [facility] Medical Staff Organization [facility] Address [address], [place] [address] Phone [phone] Summary purpose TRANSITION OF CARE AUTO GENERATION [...] Code Type Description Date Performed Performing Physician A0427 CPT-4 ALS1-EMERGENCY 04-29-2015 AMBROSE WYATT A0425 CPT-4 GROUND MILEAGE 04-29-2015 AMBROSE WYATT Functional status No functional or cognitive status [...]
--- OUTSIDE RECORDS SUMMARY | 2016-08-07 10:52 | XMS REPORT | Clinical Summary ---
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 DESIGNER ICD-V58.69 Inactive Jonel Hemphill MD DIABETES, TYPE [...] 1 po q6hr PRN Nausea ONDANSETRON HCL 69837750925 Active Jonel Hemphill MD Active XARELTO 20 MG ORAL TABS 1 daily RIVAROXABAN 55298159294 Active Jonel Hemphill MD Active JANUVIA 100 MG ORAL TABS 2 tabs daily SITAGLIPTIN PHOSPHATE 91717480988 Active Jonel Hemphill MD Active CELEXA 20 MG TABS Take 1 tablet 1x daily CITALOPRAM HYDROBROMIDE 28292456991 No Longer Active Jonel Hemphill MD Active ATIVAN 0.5 MG TABS Take 1 tablet 2x daily PRN LORAZEPAM 32582971326 No Longer Active Jonel Hemphill MD Active FUROSEMIDE 80 MG ORAL TABS 1 daily FUROSEMIDE 99733522359 Active Jonel Hemphill MD Active MECLIZINE HCL 25 MG CHEW TAB 1 four times a day as needed for dizziness 02/21 MECLIZINE HCL 97579006614 No Longer Active Jonel Hemphill MD Active ZYLOPRIM 300 MG TAB 1 BY MOUTH DAILY ALLOPURINOL 79845056237 No Longer Active Jonel Hemphill MD Active METOPROLOL TARTRATE 50 MG ORAL TABS 1 TAB BY MOUTH TWICE DAILY METOPROLOL TARTRATE 61021270957 No Longer Active Jonel Hemphill MD Active GABAPENTIN 400 MG ORAL CAPS 1 TAB BY MOUTH THREE TIMES DAILY 2015 GABAPENTIN 32764405338 No Longer Active Jonel Hemphill MD Active ULORIC 40 MG ORAL TABS 1 daily for gout. FEBUXOSTAT 48784760818 Active Marleni Romero Active HYDROCODONE-ACETAMINOPHEN 7.5-325 MG TABS 1 TAB PO Q 6 HRS PRN HYDROCODONE-ACETAMINOPHEN 64896555619 Active Jonel Hemphill MD Active METFORMIN HCL 1000 MG TABS 1 tablet by mouth twice daily METFORMIN HCL 92256273071 Active Marleni Romero Active FENTANYL 12 MCG/HR PT72 Apply to clean, dry skin and change every 72 hours FENTANYL 45946986120 Active Jenni Andrew MA Active KLOR-CON 20 MEQ ORAL PACK 1 BY MOUTH DAILY POTASSIUM CHLORIDE 81728958962 Active Marleni Romero Active A+D FIRST AID EXT OINT APPLY OINTMENT AND RUFINO WRAPS TO LOWER EXTEREMETIES DAILY SKIN PROTECTANTS, MISC. 62531675302 Active Jonel Hemphill MD Active NYSTATIN 986198 UNIT/GM EXT OINT APPLY PRN TID TO GAULDING/RASH IN ABDOMINAL FOLDS NYSTATIN 04294665703 Active Jonel Hemphill MD Active GABAPENTIN 300 MG CAPS 1 CAP PO TID GABAPENTIN 50629992394 No Longer Active Jonel Hemphill MD Active DILANTIN 100 MG ORAL CAPS 1 THREE TIMES DAILY FOR SEIZURES PHENYTOIN SODIUM EXTENDED 03074094554 Active Marleni Romero Active CPAP APPLY AT HS CPAP Active Jonel Hemphill MD Active LISINOPRIL 40 MG TABS 1 tablet by mouth twice daily, for blood pressure 03/31 LISINOPRIL 13820404978 Active Jonel Hemphill MD Active BUPROPION HCL ER (SR) 150 MG [id number] 1 twice a day for depression BUPROPION HCL 24106756175 Active Jonel Hemphill MD Active MULTIVITAMINS CAPS 1 DAILY MULTIPLE VITAMIN 08085058705 Active Jonel Hemphill MD Active HYDROCODONE-ACETAMINOPHEN 7.5-325 MG TABS 1 q 6 hrs prn HYDROCODONE-ACETAMINOPHEN 14124683246 No Longer Active Jonel Hemphill MD Active DILANTIN 100 MG CAPS 3 cap tid PHENYTOIN SODIUM EXTENDED 39419194508 No Longer Active Jonel Hemphill MD Active BUDEPRION SR 150 MG [id number] 1 bid BUPROPION HCL 84637446076 No Longer Active Jonel Hemphill MD Active ALLOPURINOL 300 MG TABS 1 qd ALLOPURINOL 57543648667 No Longer Active Jonel Hemphill MD Active COZAAR 100 MG TABS 1 qd LOSARTAN POTASSIUM 46246617608 No Longer Active Jonel Hemphill MD Active CVS VITAMIN C 500 MG TABS 1 po daily ASCORBIC ACID 81122718040 No Longer Active Jonel Hemphill MD Active MIRALAX POWD 17 gms in 4 oz water or juice daily POLYETHYLENE GLYCOL 3350 03208519121 No Longer Active Jonel Hemphill MD Active POTASSIUM CHLORIDE CHELA ER 20 MEQ CR-TABS 1 tab PO daily POTASSIUM CHLORIDE CHELA CR 42070549667 No Longer Active Jonel Hemphill MD Active AMBIEN 10 MG TAB 1 tab by mouth at bedtime as needed for sleep ZOLPIDEM TARTRATE 86770964933 No Longer Active Jonel Hemphill MD Active SULFAMETHOXAZOLE-TMP DS 800-160 MG TABS 1 TAB PO BID SULFAMETHOXAZOLE-TRIMETHOPRIM 51582572684 No Longer Active Jonel Hemphill MD Active NORCO 5-325 MG TABS 1-2 TAB Q 6 HRS PRN HYDROCODONE- ACETAMINOPHEN 36293478613 Active Jonel Hemphill MD Active LEVEMIR 100 UNIT/ML SOLN 5 units sub-q at bedtime INSULIN DETEMIR 55621886646 No Longer Active Tova Perez Active MOBIC 15 MG TABS 1 tab PO daily for arthritis pain MELOXICAM 75054447363 No Longer Active Tova Perez Active GLUCAGEN 1 MG SOLR INJECT 1MG IM IF BS LESS THAN 60 & RES. IS UNABLE TO SWALLOW GLUCAGON HCL (RDNA) 21144975942 No Longer Active Tova Perez Active CVS MILK OF MAGNESIA 1200 MG/15ML SUSP 30 ml daily for constipation MAGNESIUM HYDROXIDE 85414019656 No Longer Active Tova Perez Active IMDUR 120 MG NE12O-QHP 1 qd ISOSORBIDE MONONITRATE 00083562004 No Longer Active Tova Perez Active PHENYTOIN 50 MG CHEW 1 TAB PO BID PHENYTOIN 49819026439 Active Tova Perez Active NEURONTIN 400 MG CAPS Take one by mouth 3 times daily, morning, afternoon and evening.] GABAPENTIN 75390074229 No Longer Active Tova Perez Active ANTIVERT 25 MG TABS 1 q 6 hrs prn MECLIZINE HCL 57860199713 No Longer Active Jonel Hemphill MD Active CLONIDINE HCL 0.2 MG TABS 1 q 8 hrs as needed -greater than 160-htn CLONIDINE HCL 39395920649 No Longer Active Jonel Hemphill MD Active AMBIEN 10 MG TABS 1 q hs prn ZOLPIDEM TARTRATE 21044990301 No Longer Active Jonel Hemphill MD Active GNP THERAPEUTIC-M TABS 1 qd MULTIPLE VITAMINS- MINERALS 64735385224 No Longer Active Jonel Hemphill MD Active METOPROLOL TARTRATE 50 MG TABS 1 bid METOPROLOL TARTRATE 60105181234 No Longer Active Jonel Hemphill MD Active METFORMIN HCL 500 MG TABS 1 bod with food METFORMIN HCL 70038920182 No Longer Active Jonel Hemphill MD Active LISINOPRIL 40 MG TABS 1 qd LISINOPRIL 67660248267 No Longer Active Jonel Hemphill MD Active HYDROCHLOROTHIAZIDE 25 MG TABS 1 qd HYDROCHLOROTHIAZIDE 66728534876 No Longer Active Jonel Hemphill MD Active DURAGESIC-25 25 MCG/HR PT72 place 1 patch on the skin q72hrs for pain FENTANYL 16146721291 No Longer Active Jonel Hemphill MD Active FENTANYL 75 MCG/HR PT72 place 1 patch on skin q72hrs fr pain 2012 FENTANYL 84447086136 No Longer Active Jonel Hemphill MD Active FUROSEMIDE 40 MG TABS 1 q am FUROSEMIDE 46503016340 No Longer Active Jonel Hemphill MD Active HEPARIN (PORCINE) LOCK FLUSH 100 UNIT/ML SOLN Flush port a cath monthly every three week on with Heparin and NS HEPARIN LOCK FLUSH 93325961226 Active Jonel Hemphill MD Active FENTANYL 100 MCG/HR PT72 Apply every 3 days FENTANYL 47179544374 Active Mattie Gates APRN Active FENTANYL 25 MCG/HR PT72 Apply to clean skin and change every 72 hours. 07/03 FENTANYL 18324066703 No Longer Active Jonel Hemphill MD Active FENTANYL 50 MCG/HR PT72 place 1 patch on skin q72 hours FENTANYL 12165130381 No Longer Active Mayco Shah APRN Active DURAGESIC-12 12 MCG/HR PT72 APPLY PATCH TO SKIN AND CHANGE EVERY 72 HOURS, ROTATE SITES FENTANYL 23000300043 No Longer Active Fozia HERNANDEZ Active FUROSEMIDE 20 MG TABS 1 qd FUROSEMIDE 17177324477 No Longer Active Mahogany Newport Active ADULT ASPIRIN EC LOW STRENGTH 81 MG TBEC 1 qd ASPIRIN 02590792913 Active MARY Perez Active FUROSEMIDE 20 MG TABS 1 qd FUROSEMIDE 20 MG TABS 624802 FUROSEMIDE Inactive DURAGESIC-12 12 MCG/HR PT72 APPLY PATCH TO SKIN AND CHANGE EVERY 72 HOURS, ROTATE SITES DURAGESIC-12 12 MCG/HR PT72 369211 FENTANYL Inactive FENTANYL 50 MCG/HR PT72 place 1 patch on skin q72 hours FENTANYL 50 MCG/HR PT72 604378 FENTANYL Inactive FUROSEMIDE 40 MG TABS 1 q am FUROSEMIDE 40 MG TABS 343956 FUROSEMIDE Inactive FENTANYL 75 MCG/HR PT72 place 1 patch on skin q72hrs fr pain 2012 FENTANYL 75 MCG/HR PT72 407796 FENTANYL Inactive DURAGESIC-25 25 MCG/HR PT72 place 1 patch on the skin q72hrs for pain DURAGESIC-25 25 MCG/HR PT72 360643 FENTANYL Inactive HYDROCHLOROTHIAZIDE 25 MG TABS 1 qd HYDROCHLOROTHIAZIDE 25 MG TABS 511921 HYDROCHLOROTHIAZIDE Inactive LISINOPRIL 40 MG TABS 1 qd LISINOPRIL 40 MG TABS 850734 LISINOPRIL Inactive METFORMIN HCL 500 MG TABS 1 bod with food METFORMIN HCL 500 MG TABS 155720 METFORMIN HCL Inactive METOPROLOL TARTRATE 50 MG TABS 1 bid METOPROLOL TARTRATE 50 MG TABS 110781 METOPROLOL TARTRATE Inactive GNP THERAPEUTIC-M TABS 1 qd GNP THERAPEUTIC-M TABS MULTIPLE VITAMINS-MINERALS Inactive AMBIEN 10 MG TABS 1 q hs prn AMBIEN 10 MG TABS 025067 ZOLPIDEM TARTRATE Inactive CLONIDINE HCL 0.2 MG TABS 1 q 8 hrs as needed -greater than 160-htn CLONIDINE HCL 0.2 MG TABS 698728 CLONIDINE HCL Inactive ANTIVERT 25 MG TABS 1 q 6 hrs prn ANTIVERT 25 MG TABS MECLIZINE HCL Inactive NEURONTIN 400 MG CAPS Take one by mouth 3 times daily, morning, afternoon and evening.] NEURONTIN 400 MG CAPS 920272 GABAPENTIN Inactive IMDUR 120 MG [id number] 1 qd IMDUR 120 MG [id number] ISOSORBIDE MONONITRATE Inactive CVS MILK OF MAGNESIA [...] for arthritis pain MOBIC 15 MG TABS 272504 MELOXICAM Inactive LEVEMIR 100 UNIT/ML SOLN 5 units sub-q at bedtime LEVEMIR 100 UNIT/ML SOLN INSULIN DETEMIR Inactive SULFAMETHOXAZOLE-TMP DS 800-160 MG TABS 1 TAB PO BID SULFAMETHOXAZOLE-TMP DS 800-160 MG TABS 452049 SULFAMETHOXAZOLE-TRIMETHOPRIM Inactive AMBIEN 10 MG TAB 1 tab by mouth at bedtime as needed for sleep AMBIEN 10 MG TAB 038360 ZOLPIDEM TARTRATE Inactive POTASSIUM CHLORIDE CHELA ER 20 MEQ CR-TABS 1 tab PO daily POTASSIUM CHLORIDE CHELA ER 20 MEQ CR-TABS POTASSIUM CHLORIDE CHELA CR Inactive MIRALAX POWD 17 gms in 4 oz water or juice daily MIRALAX POWD 754631 POLYETHYLENE GLYCOL 3350 Inactive CVS VITAMIN C 500 MG TABS 1 po daily CVS VITAMIN C 500 MG TABS 357058 ASCORBIC ACID Inactive COZAAR 100 MG TABS 1 qd COZAAR 100 MG TABS 800173 LOSARTAN POTASSIUM Inactive ALLOPURINOL 300 MG TABS 1 qd ALLOPURINOL 300 MG TABS 687627 ALLOPURINOL Inactive BUDEPRION SR 150 MG [id number] 1 bid BUDEPRION SR 150 MG [id number] BUPROPION HCL Inactive DILANTIN 100 MG CAPS 3 cap tid DILANTIN 100 MG CAPS 143924 PHENYTOIN SODIUM EXTENDED Inactive HYDROCODONE-ACETAMINOPHEN 7.5-325 MG TABS 1 q 6 hrs prn HYDROCODONE-ACETAMINOPHEN 7.5-325 MG TABS 367773 HYDROCODONE- ACETAMINOPHEN Inactive GABAPENTIN 300 MG CAPS 1 CAP PO TID GABAPENTIN 300 MG CAPS 888508 GABAPENTIN Inactive GABAPENTIN 400 MG ORAL CAPS 1 TAB BY MOUTH THREE TIMES DAILY 2015 GABAPENTIN 400 MG ORAL CAPS 157158 GABAPENTIN Inactive METOPROLOL TARTRATE 50 MG ORAL TABS 1 TAB BY MOUTH TWICE DAILY METOPROLOL TARTRATE 50 MG ORAL TABS 477567 METOPROLOL TARTRATE Inactive ZYLOPRIM 300 MG TAB 1 BY MOUTH DAILY ZYLOPRIM 300 MG TAB 224057 ALLOPURINOL Inactive MECLIZINE HCL 25 MG CHEW TAB 1 four times a day as needed for dizziness 02/21 MECLIZINE HCL 25 MG CHEW TAB 983096 MECLIZINE HCL Inactive ATIVAN 0.5 MG TABS Take 1 tablet 2x daily PRN ATIVAN 0.5 MG TABS 174651 LORAZEPAM Inactive CELEXA 20 MG TABS Take 1 tablet 1x daily CELEXA 20 MG TABS 606425 CITALOPRAM HYDROBROMIDE Inactive FENTANYL 25 MCG/HR PT72 Apply to clean skin and change every 72 hours. 07/03 FENTANYL 25 MCG/HR PT72 854495 FENTANYL Inactive Advance Directives Directive Description Start Date ADVANCE DIRECTIVE Immunizations Vaccine Administration Date Value Standard Description influenza immunization (Flu Vax) has been administered Influenza - Unspecified Formulation [CVX88] influenza virus vaccine, unspecified formulation pneumococcal immunization administered Pneumovax 23 [CVX33] pneumococcal polysaccharide vaccine, 23 valent Vital Signs Date Name Value Unit Range Description blood pressure, diastolic - 8462-4 55 mm[Hg] [...] E&M - 3141-9 394.8 [lb_av] Weight Measured Diagnostic Results Date Name [...] 10*3/mm3 Encounters Code Encounter Date Provider Facility CPT-96387 Level 3 Est. Patient 19:05:03 CDT Jonel Hemphill MD [facility]-72863 Level 3 Est. Patient 17:30:47 CDT Kevin Link MD [facility]-26420 Level 3 Est. Patient 18:04:07 CDT Jonel Hemphill MD [facility] CPT-93370 Level 3 Est. Patient 17:18:03 CDT Jonel Hemphill MD [facility] CPT-36724 Level 3 Est. Patient 21:58:03 [employer] B[employer] ARCHITECT Jonel Hemphill MD [facility]-00801 Level 4 Est. Patient 18:03:14 CDT Jonel Yeager [facility]-63560 Level 4 Est. Patient 13:24:53 CDT Jonel Hemphill MD [facility]-95215 Level 4 Est. Patient 09:15:44 CDT Jonel Hemphill MD [facility]-24319 Level 4 Est. Patient 19:16:01 CDT Jonel Yeager [facility]-30035 Level 4 Est. Patient 11:25:16 CDT Jonel Hemphill MD [facility] CPT-10874 Level 4 Est. Patient 09:00:40 CDT Jonel Yeager [facility]-05994 Level 4 Est. Patient 14:53:58 CDT Jonel Hemphill MD [facility] CPT-89341 Level 4 Est. Patient 22:59:01 CDT Jonel Hemphill MD [facility]-81505 Level 4 Est. Patient 09:29:57 CDT Jonel Hemphill MD [facility]-44965 Level 4 Est. Patient 12:35:53 [employer] B[employer] ARCHITECT Jonel Hemphill MD [facility]-41261 Level 4 Est. Patient 22:36:09 [employer] B[employer] ARCHITECT Jonel Hemphill MD [facility]-32800 Level 2 Est. Patient 15:14:15 [employer] B[employer] ARCHITECT Mayco Shah APRN [facility] CPT-85543 Level 4 Est. Patient 10:36:22 [employer] B[employer] ARCHITECT Jonel Hemphill MD [facility] CPT-57860 Level 4 Est. Patient 22:01:13 [employer] B[employer] ARCHITECT Jonel Hemphill MD [facility]-96496 Level 3 Est. Patient 21:50:37 [employer] B[employer] ARCHITECT Jonel Hemphill MD [facility] CPT-76373 Level 4 Est. Patient 15:02:43 CDT Rubin Pierre MD [facility] CPT-48658 Level 4 Est. Patient 14:27:35 CDT Jonel Hemphill MD [facility]-37296 Level 4 Est. Patient 12:41:17 CDT Jonel Hemphill MD [facility]-72970 Level 4 Est. Patient 16:18:55 CDT Jonel Hemphill MD [facility]-32554 Level 4 Est. Patient 17:58:05 CDT Jonel Hemphill MD [facility]-26942 Level 4 Est. Patient 22:10:06 CDT Jonel Hemphill MD [facility]-33792 Level 4 Est. Patient 13:22:09 CDT Jonel Hemphill MD [facility]-99747 Level 4 Est. Patient 22:52:17 [employer] B[employer] ARCHITECT Jonel Hemphill MD [facility]-79812 Level 3 Est. Patient 22:34:10 [employer] B[employer] ARCHITECT Jonel Hemphill MD [facility]-49711 Level 4 Est. Patient 07:49:20 [employer] B[employer] ARCHITECT Jonel Hemphill MD [facility] CPT-75364 Level 3 Est. Patient 08:28:27 [employer] BPM ARCHITECT Jonel Hemphill MD [facility] Procedures Code Procedure Name Date Entry Date Standard Description CPT-20012 Level 3 Mcc 19:03:14 CDT CPT-91214 Level 3 Mcc 17:42:11 CDT CPT-83831 Level 3 Mcc 16:04:10 CDT CPT-44096 Level 3 Mcc 19:38:15 [employer] BPM ARCHITECT CPT-72065 Level 3 Mcc 19:28:48 [employer] BPM ARCHITECT CPT-36429 Level 3 Mcc 18:02:20 [employer] BPM ARCHITECT CPT-70099 Level 3 Mcc 15:02:14 [employer] BPM ARCHITECT CPT-62952 Level 3 Mcc 12:25:37 CDT CPT-09643 Level 3 Mcc 12:48:39 CDT CPT-23206 Level 3 Mcc 17:39:14 CDT CPT-78974 Level 3 Mcc 13:32:58 CDT CPT-90051 Level 3 Mcc 17:43:43 CDT CPT-71859 Level 3 Mcc 12:03:33 [employer] BPM ARCHITECT CPT-91247 Level 3 Mcc 18:47:28 [employer] BPM ARCHITECT CPT-95693 Level 3 Mcc 17:35:26 [employer] BPM ARCHITECT CPT-17351 Level 3 Mcc 18:44:49 [employer] BPM ARCHITECT CPT-10370 Level 3 Mcc 18:17:33 CDT CPT-52406 Level 3 Mcc 09:25:33 CDT CPT-55670 Level 3 Mcc 19:11:57 CDT CPT-57838 Level 3 Mcc 09:25:52 CDT CPT-90086 Level 3 Mcc 14:23:59 CDT CPT-92130 Level 3 Mcc 12:09:43 CDT CPT-02432 Level 3 Mcc 09:37:40 CDT CPT-31534 Level 3 Mcc 18:23:02 CDT CPT-65567 Level 3 Mcc 14:09:06 CDT CPT-52438 Level 3 Mcc 12:43:27 [employer] B[employer] ARCHITECT CPT-27393 Postop F/U Visit 14:10:15 [employer] BPM ARCHITECT CPT-81408 [facility] [employer] [facility] Ne[facility] 17:07:14 [employer] BPM ARCHITECT CPT-98179 Level 3 Mcc 16:14:37 [employer] BPM ARCHITECT CPT-34054 Port a cath flush 11:47:42 CDT CPT-91005 Port a cath flush 08:29:49 CDT CPT-OV Office Visit 14:27:58 [employer] B[employer] ARCHITECT
--- OUTSIDE RECORDS SUMMARY | 2016-08-07 10:52 | XMS REPORT ---
Author Author [facility] Medical Staff Organization [facility] Address [address] [place], [place] [address] Phone [phone] Care Team Providers Care Corporate Treasury Analyst Name Role Phone FRANKO PRIETO MD PP [phone] Summary purpose TRANSITION OF CARE AUTO GENERATION [...] diagnostic tests and/or laboratory data RESULTS Chemistry [id number]:30:00 Result Normal Range Units Sodium 143 134-145 mEq/l Potassium 3.9 3.5-5.1 mEq/l Chloride 102 98-107 mEq/l CO2 H 30.5 22-28 mEq/l Glucose H 147 70-105 mg/dl BUN 15 7-18 mg/dl Creatinine L 0.19 0.6-1.3 mg/dl Calcium L 6.6 8.4-10.2 mg/dl TP - Total Protein 6.6 6.0-8.3 g/dl Albumin 3.8 3.5-5 g/dl Bilirubin - Total 0.5 0.1-1.0 mg/dl AST 13 10-42 IU/L ALT 13 12-65 IU/L ALP 51 39-107 IU/L Osmolality 288.5 280-300 mOsm/L Albumin/Globulin Ratio 1.4 0-8 Anion GAP 10.5 8-16 BUN/Creatinine Ratio H 78.9 10-20 Estimated GFR 529 >=60 mL/min/1.7 Hematology [id number]:30:00 Result Normal Range Units WBC 6.9 4.8-10.8 103/uL RBC L 4.6 4.7-6.1 106/uL HGB 14.4 13.0-18.0 g/dl HCT 44.3 41.9-52.0 % MCV H 96.9 80-94 FL MCH H 31.5 27-31 pg MCHC L 32.5 33-37 g/dl RDW 14.6 11.5-15.5 % PLT L 113 130-400 103/uL MPV H 11.7 7.3-10.4 FL Neutro % 62.9 40-70 % Lymph % 28.4 20-40 % [place] % 7.1 0-10.0 % Eos % 0.9 0-7.0 % Baso % 0.3 0-2 % Neutro # 4.3 1.5-7.5 103/uL Lymph # 2.0 0.9-4.0 103/uL [place] # 0.5 0-0.8 103/uL Eos # 0.1 0-0.6 103/uL Baso # 0.0 0-0.1 103/uL Radiology Results [id number]:30:00 Result Normal Range Units MPV H 11.7 7.3-10.4 FL History of procedures No procedures [...]
--- OUTSIDE RECORDS SUMMARY | 2016-08-07 10:54 | XMS REPORT | Clinical Summary ---
Author Author Admin, [place] Organization [facility] Address Unknown Phone Unavailable Allergies, Adverse Reactions, 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, HEAT TREAT SUPERVISOR V58.69 Resolved Jonel Hemphill MD Long-term (current) [...] Coronary atherosclerosis of unspecified type of vessel, ugash[place] or graft FH DIABETES V18.0 Resolved Jonel [...] Coronary atherosclerosis of unspecified type of vessel, [place]ash[place] or graft CONSTIPATION 564.00 Resolved Jonel Hemphill [...] syndrome CHRONIC KIDNEY DISEASE UNSPECIFIED 585.9 Resolved Joenl Hemphill MD Chronic kidney disease, unspecified Infection [...] 786.52 Active Jonel Hemphill MD Painful respiration 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 USE, HEAT TREAT SUPERVISOR ICD-V58.69 Inactive Jonel Hemphill MD DIABETES, TYPE [...] ORAL TABS 1 daily for gout. FEBUXOSTAT 58206370085 Active Marleni Romero Active HYDROCODONE-ACETAMINOPHEN 7.5-325 MG TABS 1 TAB PO Q 6 HRS PRN HYDROCODONE-ACETAMINOPHEN 46344782116 Active Jonel Hemphill MD Active METFORMIN HCL 1000 MG TABS 1 tablet by mouth twice daily METFORMIN HCL 81263419663 Active Marleni Romero Active FENTANYL 12 MCG/HR PT72 Apply to clean, dry skin and change every 72 hours FENTANYL 71380790162 Active Mattie Gates APRN Active KLOR-CON 20 MEQ ORAL PACK 1 BY MOUTH DAILY POTASSIUM CHLORIDE 32495913066 Active Marleni Romero Active A+D FIRST AID EXT OINT APPLY OINTMENT AND RUFINO WRAPS TO LOWER EXTEREMETIES DAILY SKIN PROTECTANTS, MISC. 21579497106 Active Jonel Hemphill MD Active NYSTATIN 046770 UNIT/GM EXT OINT APPLY PRN TID TO GAULDING/RASH IN ABDOMINAL FOLDS NYSTATIN 14036970984 Active Jonel Hemphill MD Active ATIVAN 0.5 MG TABS Take 1 tablet 2x daily PRN LORAZEPAM 61944501475 Active Jonel Hemphill MD Active GABAPENTIN 400 MG ORAL CAPS 1 TAB BY MOUTH THREE TIMES DAILY GABAPENTIN 99640674792 Active Jonel Hemphill MD Active GABAPENTIN 300 MG CAPS 1 CAP PO TID GABAPENTIN 29546486625 No Longer Active Jonel Hemphill MD Active DILANTIN 100 MG ORAL CAPS 1 THREE TIMES DAILY FOR SEIZURES PHENYTOIN SODIUM EXTENDED 10644538822 Active Marleni Romero Active CPAP APPLY AT HS CPAP Active Jonel Hemphill MD Active METOPROLOL TARTRATE 50 MG ORAL TABS 1 TAB BY MOUTH TWICE DAILY METOPROLOL TARTRATE 64102454352 Active Jonel Hemphill MD Active LISINOPRIL 40 MG TABS 1 tablet by mouth twice daily, for blood pressure 03/31 LISINOPRIL 83292088802 Active Jonel Hemphill MD Active BUPROPION HCL ER (SR) 150 MG [id number] 1 twice a day for depression BUPROPION HCL 47030534765 Active Jonel Hemphill MD Active MULTIVITAMINS CAPS 1 DAILY MULTIPLE VITAMIN 03633906222 Active Jonel Hemphill MD Active ZYLOPRIM 300 MG TAB 1 BY MOUTH DAILY ALLOPURINOL 96297772221 Active Jonel Hemphill MD Active HYDROCODONE-ACETAMINOPHEN 7.5-325 MG TABS 1 q 6 hrs prn HYDROCODONE-ACETAMINOPHEN 91965643261 No Longer Active Jonel Hemphill MD Active DILANTIN 100 MG CAPS 3 cap tid PHENYTOIN SODIUM EXTENDED 41544087888 No Longer Active Jonel Hemphill MD Active BUDEPRION SR 150 MG [id number] 1 bid BUPROPION HCL 15652072069 No Longer Active Jonel Hemphill MD Active ALLOPURINOL 300 MG TABS 1 qd ALLOPURINOL 97447163054 No Longer Active Jonel Hemphill MD Active COZAAR 100 MG TABS 1 qd LOSARTAN POTASSIUM 02889797688 No Longer Active Jonel Hemphill MD Active CVS VITAMIN C 500 MG TABS 1 po daily ASCORBIC ACID 25172823824 No Longer Active Jonel Hemphill MD Active MIRALAX POWD 17 gms in 4 oz water or juice daily POLYETHYLENE GLYCOL 3350 95954762119 No Longer Active Jonel Hemphill MD Active POTASSIUM CHLORIDE CHELA ER 20 MEQ CR-TABS 1 tab PO daily POTASSIUM CHLORIDE CHELA CR 73473527522 No Longer Active Jonel Hemphill MD Active AMBIEN 10 MG TAB 1 tab by mouth at bedtime as needed for sleep ZOLPIDEM TARTRATE 64742612319 No Longer Active Jonel Hemphill MD Active SULFAMETHOXAZOLE-TMP DS 800-160 MG TABS 1 TAB PO BID SULFAMETHOXAZOLE-TRIMETHOPRIM 83090520355 No Longer Active Jonel Hemphill MD Active NORCO 5-325 MG TABS 1-2 TAB Q 6 HRS PRN HYDROCODONE- ACETAMINOPHEN 82504751659 Active Jonel Hemphill MD Active LEVEMIR 100 UNIT/ML SOLN 5 units sub-q at bedtime INSULIN DETEMIR 13711399213 No Longer Active Tova Perez Active MOBIC 15 MG TABS 1 tab PO daily for arthritis pain MELOXICAM 60645789175 No Longer Active Tova Perez Active GLUCAGEN 1 MG SOLR INJECT 1MG IM IF BS LESS THAN 60 & RES. IS UNABLE TO SWALLOW GLUCAGON HCL (RDNA) 99646356120 No Longer Active Tova Perez Active CVS MILK OF MAGNESIA 1200 MG/15ML SUSP 30 ml daily for constipation MAGNESIUM HYDROXIDE 71150882992 No Longer Active Tova Perez Active IMDUR 120 MG [id number]-[id number] 1 qd ISOSORBIDE MONONITRATE 59749358919 No Longer Active Tova Chris Active PHENYTOIN 50 MG CHEW 1 TAB PO BID PHENYTOIN 84391300514 Active Tova Chris Active MECLIZINE HCL 25 MG CHEW TAB 1 four times a day as needed for dizziness 02/21 MECLIZINE HCL 21630693079 Active Tova Chris Active NEURONTIN 400 MG CAPS Take one by mouth 3 times daily, morning, afternoon and evening.] GABAPENTIN 91491649133 No Longer Active Tova Perez Active ANTIVERT 25 MG TABS 1 q 6 hrs prn MECLIZINE HCL 43780813746 No Longer Active Jonel Hemphill MD Active CLONIDINE HCL 0.2 MG TABS 1 q 8 hrs as needed -greater than 160-htn CLONIDINE HCL 51435803057 No Longer Active Jonel Hemphill MD Active AMBIEN 10 MG TABS 1 q hs prn ZOLPIDEM TARTRATE 46052807135 No Longer Active Jonel Hemphill MD Active GNP THERAPEUTIC-M TABS 1 qd MULTIPLE VITAMINS- MINERALS 57291348328 No Longer Active Jonel Hemphill MD Active METOPROLOL TARTRATE 50 MG TABS 1 bid METOPROLOL TARTRATE 84985871353 No Longer Active Jonel Hemphill MD Active METFORMIN HCL 500 MG TABS 1 bod with food METFORMIN HCL 46596226725 No Longer Active Jonel Hemphill MD Active LISINOPRIL 40 MG TABS 1 qd LISINOPRIL 26143886625 No Longer Active Jonel Hemphill MD Active HYDROCHLOROTHIAZIDE 25 MG TABS 1 qd HYDROCHLOROTHIAZIDE 75837497283 No Longer Active Jonel Hemphill MD Active DURAGESIC-25 25 MCG/HR PT72 place 1 patch on the skin q72hrs for pain FENTANYL 34562842380 No Longer Active Jonel Hemphill MD Active FENTANYL 75 MCG/HR PT72 place 1 patch on skin q72hrs fr pain 2012 FENTANYL 63357958734 No Longer Active Jonel Hemphill MD Active LASIX 20 MG TABS 1 tab PO q morning FUROSEMIDE 50146527093 Active Jonel Hemphill MD Active FUROSEMIDE 40 MG TABS 1 q am FUROSEMIDE 57669206597 No Longer Active Jonel Hemphill MD Active HEPARIN (PORCINE) LOCK FLUSH 100 UNIT/ML SOLN Flush port a cath monthly every three week on with Heparin and NS HEPARIN LOCK FLUSH 05863319042 Active Jonel Hemphill MD Active FENTANYL 100 MCG/HR PT72 Apply every 3 days FENTANYL 46519938828 Active Mattie Gates APRN Active FENTANYL 25 MCG/HR PT72 Apply to clean skin and change every 72 hours. 07/03 FENTANYL 13398827611 No Longer Active Jonel Hemphill MD Active FENTANYL 50 MCG/HR PT72 place 1 patch on skin q72 hours FENTANYL 40693299039 No Longer Active Mayco Shah APRN Active CELEXA 20 MG TABS Take 1 tablet 1x daily CITALOPRAM HYDROBROMIDE 28045310361 Active Jonel Hemphill MD Active DURAGESIC-12 12 MCG/HR PT72 APPLY PATCH TO SKIN AND CHANGE EVERY 72 HOURS, ROTATE SITES FENTANYL 52942903527 No Longer Active Fozia Amador RMA Active FUROSEMIDE 20 MG TABS 1 qd FUROSEMIDE 41875750333 No Longer Active Mahogany [place] Active ADULT ASPIRIN EC LOW STRENGTH 81 MG TBEC 1 qd ASPIRIN 17356407014 Active MARY Perze Active FUROSEMIDE 20 MG TABS 1 qd FUROSEMIDE 20 MG TABS 161396 FUROSEMIDE Inactive DURAGESIC-12 12 MCG/HR PT72 APPLY PATCH TO SKIN AND CHANGE EVERY 72 HOURS, ROTATE SITES DURAGESIC-12 12 MCG/HR PT72 912540 FENTANYL Inactive FENTANYL 50 MCG/HR PT72 place 1 patch on skin q72 hours FENTANYL 50 MCG/HR PT72 980144 FENTANYL Inactive FUROSEMIDE 40 MG TABS 1 q am FUROSEMIDE 40 MG TABS 048950 FUROSEMIDE Inactive FENTANYL 75 MCG/HR PT72 place 1 patch on skin q72hrs fr pain 2012 FENTANYL 75 MCG/HR PT72 492861 FENTANYL Inactive DURAGESIC-25 25 MCG/HR PT72 place 1 patch on the skin q72hrs for pain DURAGESIC-25 25 MCG/HR PT72 994604 FENTANYL Inactive HYDROCHLOROTHIAZIDE 25 MG TABS 1 qd HYDROCHLOROTHIAZIDE 25 MG TABS 480836 HYDROCHLOROTHIAZIDE Inactive LISINOPRIL 40 MG TABS 1 qd LISINOPRIL 40 MG TABS 347259 LISINOPRIL Inactive METFORMIN HCL 500 MG TABS 1 bod with food METFORMIN HCL 500 MG TABS 767203 METFORMIN HCL Inactive METOPROLOL TARTRATE 50 MG TABS 1 bid METOPROLOL TARTRATE 50 MG TABS 495984 METOPROLOL TARTRATE Inactive GNP THERAPEUTIC-M TABS 1 qd GNP THERAPEUTIC-M TABS MULTIPLE VITAMINS-MINERALS Inactive AMBIEN 10 MG TABS 1 q hs prn AMBIEN 10 MG TABS 191861 ZOLPIDEM TARTRATE Inactive CLONIDINE HCL 0.2 MG TABS 1 q 8 hrs as needed -greater than 160-htn CLONIDINE HCL 0.2 MG TABS 078023 CLONIDINE HCL Inactive ANTIVERT 25 MG TABS 1 q 6 hrs prn ANTIVERT 25 MG TABS MECLIZINE HCL Inactive NEURONTIN 400 MG CAPS Take one by mouth 3 times daily, morning, afternoon and evening.] NEURONTIN 400 MG CAPS 084126 GABAPENTIN Inactive IMDUR 120 MG [id number] 1 qd IMDUR 120 MG [id number]-REH ISOSORBIDE MONONITRATE Inactive CVS MILK OF MAGNESIA [...] for arthritis pain MOBIC 15 MG TABS 278045 MELOXICAM Inactive LEVEMIR 100 UNIT/ML SOLN 5 units sub-q at bedtime LEVEMIR 100 UNIT/ML SOLN INSULIN DETEMIR Inactive SULFAMETHOXAZOLE-TMP DS 800-160 MG TABS 1 TAB PO BID SULFAMETHOXAZOLE-TMP DS 800-160 MG TABS 771151 SULFAMETHOXAZOLE-TRIMETHOPRIM Inactive AMBIEN 10 MG TAB 1 tab by mouth at bedtime as needed for sleep AMBIEN 10 MG TAB 121507 ZOLPIDEM TARTRATE Inactive POTASSIUM CHLORIDE CHELA ER 20 MEQ CR-TABS 1 tab PO daily POTASSIUM CHLORIDE CHELA ER 20 MEQ CR-TABS POTASSIUM CHLORIDE CHELA CR Inactive MIRALAX POWD 17 gms in 4 oz water or juice daily MIRALAX POWD 813475 POLYETHYLENE GLYCOL 3350 Inactive CVS VITAMIN C 500 MG TABS 1 po daily CVS VITAMIN C 500 MG TABS 314368 ASCORBIC ACID Inactive COZAAR 100 MG TABS 1 qd COZAAR 100 MG TABS 516610 LOSARTAN POTASSIUM Inactive ALLOPURINOL 300 MG TABS 1 qd ALLOPURINOL 300 MG TABS 133240 ALLOPURINOL Inactive BUDEPRION SR 150 MG [id number] 1 bid BUDEPRION SR 150 MG [id number] BUPROPION HCL Inactive DILANTIN 100 MG CAPS 3 cap tid DILANTIN 100 MG CAPS 984779 PHENYTOIN SODIUM EXTENDED Inactive HYDROCODONE-ACETAMINOPHEN 7.5-325 MG TABS 1 q 6 hrs prn HYDROCODONE-ACETAMINOPHEN 7.5-325 MG TABS 772839 HYDROCODONE- ACETAMINOPHEN Inactive GABAPENTIN 300 MG CAPS 1 CAP PO TID GABAPENTIN 300 MG CAPS 138571 GABAPENTIN Inactive FENTANYL 25 MCG/HR PT72 Apply to clean skin and change every 72 hours. 07/03 FENTANYL 25 MCG/HR PT72 700090 FENTANYL Inactive Advance Directives Directive Description Start [...] 4.3-6.0 Encounters Code Encounter Date Provider Facility CPT-76273 Level 3 Est. Patient 19:05:03 CDT Jonel Hemphill MD [facility] CPT-06672 Level 3 Est. Patient 17:30:47 CDT Kevin Link MD [facility] CPT-71923 Level 3 Est. Patient 18:04:07 CDT Jonel Hemphill MD [facility] CPT-02499 Level 3 Est. Patient 17:18:03 CDT Jonel Hemphill MD [facility] CPT-29390 Level 3 Est. Patient 21:58:03 GSE MECHANIC Jonel Hemphill MD [facility] CPT-30353 Level 4 Est. Patient 18:03:14 CDT Jonel Hemphill MD [facility]-87782 Level 4 Est. Patient 13:24:53 CDT Jonel Hemphill MD [facility]-83694 Level 4 Est. Patient 09:15:44 CDT Jonel Hemphill MD [facility]-02710 Level 4 Est. Patient 19:16:01 CDT Jonel Hemphill MD [facility]-32685 Level 4 Est. Patient 11:25:16 CDT Jonel Hemphill MD [facility]-64077 Level 4 Est. Patient 09:00:40 CDT Jonel Hemhpill MD [facility]-17593 Level 4 Est. Patient 14:53:58 CDT Jonel Hemphill MD [facility]-74446 Level 4 Est. Patient 22:59:01 CDT Jonel Hemphill MD [facility]-25697 Level 4 Est. Patient 09:29:57 CDT Jonel Hemphill MD [facility]-28866 Level 4 Est. Patient 12:35:53 GSE MECHANIC Jonel Hemphill MD [facility]-25922 Level 4 Est. Patient 22:36:09 GSE MECHANIC Jonel Hemphill MD [facility]-58392 Level 2 Est. Patient 15:14:15 GSE MECHANIC Mayco Shah APRN [facility]-50472 Level 4 Est. Patient 10:36:22 GSE MECHANIC Jonel Hemphill MD [facility]-98191 Level 4 Est. Patient 22:01:13 GSE MECHANIC Jonel Hemphill MD [facility]-70302 Level 3 Est. Patient 21:50:37 GSE MECHANIC Jonel Hemphill MD [facility] CPT-77277 Level 4 Est. Patient 15:02:43 CDT Rubin Pierre MD [facility] CPT-25580 Level 4 Est. Patient 14:27:35 CDT Jonel Hemphill MD [facility]-86339 Level 4 Est. Patient 12:41:17 CDT Jonel Hemphill MD [facility]-46836 Level 4 Est. Patient 16:18:55 CDT Jonel Hemphill MD [facility]-18743 Level 4 Est. Patient 17:58:05 CDT Jonel Hemphill MD [facility]-19361 Level 4 Est. Patient 22:10:06 CDT Jonel Hemphill MD [facility] CPT-94487 Level 4 Est. Patient 13:22:09 CDT Jonel Hemphill MD [facility] CPT-89438 Level 4 Est. Patient 22:52:17 GSE MECHANIC Jonel Hemphill MD [facility]-34249 Level 3 Est. Patient 22:34:10 GSE MECHANIC Jonel Hemphill MD [facility] CPT-81460 Level 4 Est. Patient 07:49:20 GSE MECHANIC Jonel Hemphill MD [facility] Skilled CPT-65688 Level 3 Est. Patient 08:28:27 GSE MECHANIC Jonel Hemphill MD [facility] Procedures Code Procedure Name Date Entry Date Standard Description CPT-04613 Level 3 Usp 17:42:11 CDT CPT-61203 Level 3 Usp 16:04:10 CDT CPT-76900 Level 3 Usp 19:38:15 GSE MECHANIC CPT-04971 Level 3 Usp 19:28:48 GSE MECHANIC CPT-17882 Level 3 Usp 18:02:20 GSE MECHANIC CPT-49227 Level 3 Usp 15:02:14 GSE MECHANIC CPT-22813 Level 3 Usp 12:25:37 CDT CPT-21762 Level 3 Usp 12:48:39 CDT CPT-30351 Level 3 Usp 17:39:14 CDT CPT-78496 Level 3 Usp 13:32:58 CDT CPT-53298 Level 3 Usp 17:43:43 CDT CPT-77301 Level 3 Usp 12:03:33 GSE MECHANIC CPT-83751 Level 3 Usp 18:47:28 GSE MECHANIC CPT-23874 Level 3 Usp 17:35:26 GSE MECHANIC CPT-57506 Level 3 Usp 18:44:49 GSE MECHANIC CPT-54217 Level 3 Usp 18:17:33 CDT CPT-00581 Level 3 Usp 09:25:33 CDT CPT-39984 Level 3 Usp 19:11:57 CDT CPT-40665 Level 3 Usp 09:25:52 CDT CPT-89353 Level 3 Usp 14:23:59 CDT CPT-97433 Level 3 Usp 12:09:43 CDT CPT-98913 Level 3 Usp 09:37:40 CDT CPT-42336 Level 3 Usp 18:23:02 CDT CPT-04814 Level 3 Usp 14:09:06 CDT CPT-19577 Level 3 Usp 12:43:27 GSE MECHANIC CPT-15685 Postop F/U Visit 14:10:15 GSE MECHANIC CPT-33974 Sono Soft Tissue Head and Neck 17:07:14 GSE MECHANIC CPT-41157 Level 3 Usp 16:14:37 GSE MECHANIC CPT-85119 Port a cath flush 11:47:42 CDT CPT-39381 Port a cath flush 08:29:49 CDT CPT-OV Office Visit 14:27:58 GSE MECHANIC
--- OUTSIDE RECORDS SUMMARY | 2016-08-07 10:55 | XMS REPORT ---
Author Author [facility] Organization [facility] Address [address], [place] [address] Phone [phone] Care Team Providers Care Rating Examiner Name Role Phone FRANKO HEMPHILL MD PP [phone] Summary purpose TRANSITION OF CARE AUTO GENERATION Chief Complaint and Reason for Visit Admit Diagnosis 1 CHEST PAIN NOS Problem list No authorized problems tracked for continuity of care are available for this visit. Encounters No authorized problems tracked for encounter diagnoses are available for this visit. Medications Home Medications Medication Directions Started Status Source furosemide 20 mg Tab 20 mg Oral Every Morning for edema Current Patient medication list Imdur 120 mg 24 hr Tab 1 tablet Oral 1 Daily for htn Discont Patient medication list Dilantin Extended 100 mg Cap 3 capsule Oral 3 Times Daily for seizure disorder Current Patient medication list aspirin 81 mg Tab 1 tablet Oral 1 Daily for heart hx/CVA Current Patient medication list Celexa 20 mg tablet 1 tablet Oral 1 Daily for depression Current Patient medication list fentanyl 100 mcg/hr Transderm Patch 1 other TD See Medication Notes for pain patch; change every 72 hours Current Patient medication list heparin flush 10 ml iv See Medication Notes for pac patency flush pac every 4 weeks with heparin et NS Current Patient medication list hydrocodone 7.5 mg-acetaminophen 325 mg tablet 1 tablet oral PRN Every 6 Hours for pain Discont Patient medication list Ativan 0.5 mg tablet 1 tablet oral As Needed for aggitation Current Patient medication list Miralax 17 gram/dose oral powder 17 gm oral Daily If Needed for constipation Discont Patient medication list losartan 100 mg tablet 1 tablet oral 1 Daily for htn Discont Patient medication list potassium chloride 20 mEq oral packet 1 tablet oral 1 Daily for supplement Discont Patient medication list Mobic 15 mg tablet 1 tablet oral 1 Daily for arthritis pain Discont Patient medication list bupropion HCl SR 150 mg tablet,sustained-release 1 tablet oral 2 Times Daily for depression Current Patient medication list gabapentin 400 mg capsule 1 tablet oral 3 Times Daily for nerve pain?? Discont Patient medication list Levemir 100 unit/mL subcutaneous solution 5 units subQ At Bed Time for iddm Discont Patient medication list Probiotic & Acidophilus oral 2 capsule oral 1 Daily Discont Patient medication list Zyloprim 300 mg tablet 1 tablet oral 1 Daily for Gout Current Patient medication list gabapentin 300 mg capsule 1 capsule oral 3 Times Daily for Nerve pain Current Patient medication list meclizine 25 mg tablet 1 tablet oral PRN Every 6 Hours for dizziness Current Patient medication list [place] 5 mg-325 mg tablet 1 or 2 tablet oral PRN Every 6 Hours for pain Current Patient medication list nystatin 100,000 unit/gram topical ointment 1 applic top PRN 3 Times A Day Apply to gaulded areas in abdominal folds. Current Patient medication list Multiple Vitamin tablet 1 tablet oral 1 Daily Current Patient medication list Dilantin Infatabs 50 mg chewable tablet 1 tablet oral 2 Times Daily for seizures Current Patient medication list lisinopril 40 mg tablet 1 tablet oral 2 Times Daily for Htn Current Patient medication list metoprolol tartrate 50 mg tablet 1 tablet oral 2 Times Daily Current Patient medication list Allergies, adverse reactions, alerts Allergen Category Ingredient Status Reaction Severity Onset Penicillins Drug Allergy Penicillins Confirmed or Verified Immunizations No immunizations recorded for this patient visit Relevant diagnostic tests and/or laboratory data RESULTS Radiology Results [id number]:00 MYOCARDIAL SPECT MULT PACs Image DATE OF EXAM: Apr 23 2014 [id number] SPECT MULTIPLE : RADIOLOGY REPORT DATE OF SERVICE: 04/23/14 HISTORY: Chest pain, hypertension, coronary artery disease, cerebrovascular accident, tobacco use, IDDM 2 DAY PHARMACOLOGICAL STRESS AND RESTING MYOCARDIAL PERFUSION STUDY (2 DAY LEXISCAN CARDIOLITE STUDY)1000 HOURS On day one, the patient is given 30.8 mCi of technetium 99m labeled Cardiolite intravenously. After a 72 minute delay, resting SPECT perfusion images are obtained. On day 2, the patient is given a pharmacological stress agent by the referring clinician. At maximal stress, the patient is given 35.1 mCi of technetium 99m labeled Cardiolite intravenously. After a 79 minute delay, gated stress SPECT perfusion images are obtained. On the stress SPECT perfusion images there does appear to be seen significant patient motion. On the images obtained however there does not appear to be any significant myocardial perfusion defects present on the stress study. The inferior wall today does appear to perfuse normally on the nongated image. There are therefore no definite focal areas of reversible ischemia suggested. On the gated study the left ventricular ejection fraction is calculated at 60% which is normal. There is normal segmental left ventricular cardiac wall motion and thickening present. The end-systolic volume is 60 cc with the end-diastolic volume of 147 cc. IMPRESSION: 1. There are no perfusion defects present, so there is no evidence for any reversible ischemia. 2. The gated study has a left ventricular ejection fraction calculated at 60% which is normal. There is normal segmental left ventricular cardiac wall motion and thickening present. S Yvon Koch MD SDP/al04/23/2014 12:54:00 / 04/23/2014 12:59:16 cc:Dr. Franko Hemphill This document has been electronically Signed by: On: History of procedures Procedure Code Code Type Description Date Performed Performing Physician 51865 CPT-4 CARDIOVASCULAR STRESS TEST 04-22-2014 VELVET SANABRIA 70952 CPT-4 HT MUSCLE IMAGE SPECT, MULT 04-22-2014 VELVET SANABRIA A9500 CPT-4 TC99M SESTAMIBI 04-22-2014 VELVET SANABRIA J2785 CPT-4 REGADENOSON INJECTION 04-22-2014 VELVET SANABRIA Functional status Functional Status Finding Observation Time VAD Type tiffany-cath [id number]:47 VAD Location left chest 87-71-161508:47 VAD Site Info discontinued [id number]:35 VAD Site Appearance WNL 27-07-015319:35 VAD Site Color clear 53-72-536801:35 VAD Site Patent yes [id number]:35 Nursing Note Second set of scans have completed. Patient given written and verbal discharge instructions. He voiced understanding. [facility] contacted to come sisal picker patient and patient is placed in waiting room in Good condition. Chest pain remains at a "0". 13-47-053078:05 Vital signs Type Value Date Height 68inches 29-00-633189:50 Weight 400LB 05-13-043438:50 Social history No Social History or smoking status observations were recorded for this visit. ( Unknown if ever smoked.) Treatment Plan No treatment plan text is available for this visit. Hospital discharge instructions Discharge Date/Time 04/23/2014 10:05 Accompanied By half-way staff Dismissal Condition good Disposition on PA half-way
--- OUTSIDE RECORDS SUMMARY | 2016-08-07 10:55 | XMS REPORT | Clinical Summary ---
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 Resolved Jonel Hemphill MD Long-term [...] Coronary atherosclerosis of unspecified type of vessel, [place] or graft FH DIABETES V18.0 Resolved Jonel [...] Coronary atherosclerosis of unspecified type of vessel, [place] or graft CONSTIPATION 564.00 Resolved Jonel Hemphill [...] abscess of leg, except foot 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 USE, STRUCTURAL MILL SUPERVISOR ICD-V58.69 Inactive Jonel Hemphill MD DIABETES, [...] Inactive Jonel Hemphill MD Bronchitis-Acute ICD-466.0 Inactive Jnoel Hemphill MD Cellulitis, leg, right ICD-682.6 Inactive Jonel Hemphill MD Flank pain, right ICD-789.09 Inactive Jonel Hemphill MD Medication List Medication Instructions Start Date Stop Date Generic Name NDC Status Provider Patient Instruction METFORMIN HCL 1000 MG TABS 1 tablet by mouth twice daily METFORMIN HCL 90287185688 Active Marleni Romero Active HYDROCODONE-ACETAMINOPHEN 7.5-325 MG TABS 1 to 2 four times a day as needed for pain HYDROCODONE-ACETAMINOPHEN 63951725189 Active Jonel Hemphill MD Active FENTANYL 12 MCG/HR PT72 Apply to clean, dry skin and change every 72 hours FENTANYL 19221720151 Active Jonel Hemphill MD Active KLOR-CON 20 MEQ ORAL PACK 1 BY MOUTH DAILY POTASSIUM CHLORIDE 07800412237 Active Marleni Romero Active A+D FIRST AID EXT OINT APPLY OINTMENT AND RUFINO WRAPS TO LOWER EXTEREMETIES DAILY SKIN PROTECTANTS, MISC. 82531660181 Active Jonel Hemphill MD Active NYSTATIN 903317 UNIT/GM EXT OINT APPLY PRN TID TO GAULDING/RASH IN ABDOMINAL FOLDS NYSTATIN 73901102067 Active Jonel Hemhpill MD Active ATIVAN 0.5 MG TABS Take 1 tablet 2x daily PRN LORAZEPAM 69074314593 Active Jonel Hemphill MD Active GABAPENTIN 400 MG ORAL CAPS 1 TAB BY MOUTH THREE TIMES DAILY GABAPENTIN 14993060764 Active Jonel Hemphill MD Active GABAPENTIN 300 MG CAPS 1 CAP PO TID GABAPENTIN 76661785753 No Longer Active Jonel Hemphill MD Active DILANTIN 100 MG ORAL CAPS 1 THREE TIMES DAILY FOR SEIZURES PHENYTOIN SODIUM EXTENDED 75363456301 Active Marleni Romero Active CPAP APPLY AT HS CPAP Active Jonel Hemphill MD Active METOPROLOL TARTRATE 50 MG ORAL TABS 1 TAB BY MOUTH TWICE DAILY METOPROLOL TARTRATE 54321134199 Active Jonel Hemphill MD Active LISINOPRIL 40 MG TABS 1 tablet by mouth twice daily, for blood pressure 03/31 LISINOPRIL 10181428426 Active Jonel Hemphill MD Active BUPROPION HCL ER (SR) 150 MG [id number] 1 twice a day for depression BUPROPION HCL 33581264791 Active Jonel Hemphill MD Active MULTIVITAMINS CAPS 1 DAILY MULTIPLE VITAMIN 58071017921 Active Jonel Hemphill MD Active ZYLOPRIM 300 MG TAB 1 BY MOUTH DAILY ALLOPURINOL 57241382828 Active Jonel Hemphill MD Active HYDROCODONE-ACETAMINOPHEN 7.5-325 MG TABS 1 q 6 hrs prn HYDROCODONE-ACETAMINOPHEN 26450431093 No Longer Active Jonel Hemphill MD Active DILANTIN 100 MG CAPS 3 cap tid PHENYTOIN SODIUM EXTENDED 44761969496 No Longer Active Jonel Hemphill MD Active BUDEPRION SR 150 MG [id number] 1 bid BUPROPION HCL 23010751503 No Longer Active Jonel Hemphill MD Active ALLOPURINOL 300 MG TABS 1 qd ALLOPURINOL 29185352383 No Longer Active Jonel Hemphill MD Active COZAAR 100 MG TABS 1 qd LOSARTAN POTASSIUM 34211357315 No Longer Active Jonel Hemphill MD Active CVS VITAMIN C 500 MG TABS 1 po daily ASCORBIC ACID 84156386854 No Longer Active Jonel Hemphill MD Active MIRALAX POWD 17 gms in 4 oz water or juice daily POLYETHYLENE GLYCOL 3350 91946260105 No Longer Active Jonel Hemphlil MD Active POTASSIUM CHLORIDE CHELA ER 20 MEQ CR-TABS 1 tab PO daily POTASSIUM CHLORIDE CHELA CR 01488590055 No Longer Active Jonel Hemphill MD Active AMBIEN 10 MG TAB 1 tab by mouth at bedtime as needed for sleep ZOLPIDEM TARTRATE 69947509505 No Longer Active Jonel Hemphill MD Active SULFAMETHOXAZOLE-TMP DS 800-160 MG TABS 1 TAB PO BID SULFAMETHOXAZOLE-TRIMETHOPRIM 52127366385 No Longer Active Jonel Hemphill MD Active NORCO 5-325 MG TABS 1-2 TAB Q 6 HRS PRN HYDROCODONE- ACETAMINOPHEN 07993310920 Active Jonel Hemphill MD Active LEVEMIR 100 UNIT/ML SOLN 5 units sub-q at bedtime INSULIN DETEMIR 46146319654 No Longer Active Tova Perez Active MOBIC 15 MG TABS 1 tab PO daily for arthritis pain MELOXICAM 27004907699 No Longer Active Tova Perez Active GLUCAGEN 1 MG SOLR INJECT 1MG IM IF BS LESS THAN 60 & RES. IS UNABLE TO SWALLOW GLUCAGON HCL (RDNA) 53853634819 No Longer Active Tova Perez Active CVS MILK OF MAGNESIA 1200 MG/15ML SUSP 30 ml daily for constipation MAGNESIUM HYDROXIDE 97513889506 No Longer Active Tova Perez Active IMDUR 120 MG [id number] 1 qd ISOSORBIDE MONONITRATE 79241738672 No Longer Active Tova Perez Active PHENYTOIN 50 MG CHEW 1 TAB PO BID PHENYTOIN 13628971955 Active Tova Perez Active MECLIZINE HCL 25 MG CHEW TAB 1 four times a day as needed for dizziness 02/21 MECLIZINE HCL 17588286628 Active Tova Perez Active NEURONTIN 400 MG CAPS Take one by mouth 3 times daily, morning, afternoon and evening.] GABAPENTIN 35314526429 No Longer Active Tova Perez Active ANTIVERT 25 MG TABS 1 q 6 hrs prn MECLIZINE HCL 20393624891 No Longer Active Jonel Hemphill MD Active CLONIDINE HCL 0.2 MG TABS 1 q 8 hrs as needed -greater than 160-htn CLONIDINE HCL 64824162958 No Longer Active Jonel Hemphill MD Active AMBIEN 10 MG TABS 1 q hs prn ZOLPIDEM TARTRATE 19948458933 No Longer Active Jonel Hemphill MD Active GNP THERAPEUTIC-M TABS 1 qd MULTIPLE VITAMINS- MINERALS 61153999218 No Longer Active Jonel Hemphill MD Active METOPROLOL TARTRATE 50 MG TABS 1 bid METOPROLOL TARTRATE 37845632791 No Longer Active Jonel Hemphill MD Active METFORMIN HCL 500 MG TABS 1 bod with food METFORMIN HCL 05229593030 No Longer Active Jonel Hemphill MD Active LISINOPRIL 40 MG TABS 1 qd LISINOPRIL 86374785085 No Longer Active Jonel Hemphill MD Active HYDROCHLOROTHIAZIDE 25 MG TABS 1 qd HYDROCHLOROTHIAZIDE 47031188426 No Longer Active Jonel Hemphill MD Active DURAGESIC-25 25 MCG/HR PT72 place 1 patch on the skin q72hrs for pain FENTANYL 11425996322 No Longer Active Jonel Hemphill MD Active FENTANYL 75 MCG/HR PT72 place 1 patch on skin q72hrs fr pain 2012 FENTANYL 88001990885 No Longer Active Jonel Hemphill MD Active LASIX 20 MG TABS 1 tab PO q morning FUROSEMIDE 59875244520 Active Jonel Hemphill MD Active FUROSEMIDE 40 MG TABS 1 q am FUROSEMIDE 57312019101 No Longer Active Jonel Hemphill MD Active HEPARIN (PORCINE) LOCK FLUSH 100 UNIT/ML SOLN Flush port a cath monthly every three week on with Heparin and NS HEPARIN LOCK FLUSH 25214238883 Active Jonel Hemphill MD Active FENTANYL 100 MCG/HR PT72 Apply every 3 days FENTANYL 31705164790 Active Jonel Hemphill MD Active FENTANYL 25 MCG/HR PT72 Apply to clean skin and change every 72 hours. 07/03 FENTANYL 36299044067 No Longer Active Jonel Hemphill MD Active FENTANYL 50 MCG/HR PT72 place 1 patch on skin q72 hours FENTANYL 35888216489 No Longer Active aMyco Shah APRN Active CELEXA 20 MG TABS Take 1 tablet 1x daily CITALOPRAM HYDROBROMIDE 64342205641 Active Jonel Hemphill MD Active DURAGESIC-12 12 MCG/HR PT72 APPLY PATCH TO SKIN AND CHANGE EVERY 72 HOURS, ROTATE SITES FENTANYL 36591159095 No Longer Active Fozia HERNANDEZ Active FUROSEMIDE 20 MG TABS 1 qd FUROSEMIDE 10363170026 No Longer Active Mahogany [place] Active ADULT ASPIRIN EC LOW STRENGTH 81 MG TBEC 1 qd ASPIRIN 33272844045 Active MARY Perez Active FUROSEMIDE 20 MG TABS 1 qd FUROSEMIDE 20 MG TABS 475224 FUROSEMIDE Inactive DURAGESIC-12 12 MCG/HR PT72 APPLY PATCH TO SKIN AND CHANGE EVERY 72 HOURS, ROTATE SITES DURAGESIC-12 12 MCG/HR PT72 058519 FENTANYL Inactive FENTANYL 50 MCG/HR PT72 place 1 patch on skin q72 hours FENTANYL 50 MCG/HR PT72 570631 FENTANYL Inactive FUROSEMIDE 40 MG TABS 1 q am FUROSEMIDE 40 MG TABS 491160 FUROSEMIDE Inactive FENTANYL 75 MCG/HR PT72 place 1 patch on skin q72hrs fr pain 2012 FENTANYL 75 MCG/HR PT72 866928 FENTANYL Inactive DURAGESIC-25 25 MCG/HR PT72 place 1 patch on the skin q72hrs for pain DURAGESIC-25 25 MCG/HR PT72 752497 FENTANYL Inactive HYDROCHLOROTHIAZIDE 25 MG TABS 1 qd HYDROCHLOROTHIAZIDE 25 MG TABS 267413 HYDROCHLOROTHIAZIDE Inactive LISINOPRIL 40 MG TABS 1 qd LISINOPRIL 40 MG TABS 610588 LISINOPRIL Inactive METFORMIN HCL 500 MG TABS 1 bod with food METFORMIN HCL 500 MG TABS 774099 METFORMIN HCL Inactive METOPROLOL TARTRATE 50 MG TABS 1 bid METOPROLOL TARTRATE 50 MG TABS 324283 METOPROLOL TARTRATE Inactive GNP THERAPEUTIC-M TABS 1 qd GNP THERAPEUTIC-M TABS MULTIPLE VITAMINS-MINERALS Inactive AMBIEN 10 MG TABS 1 q hs prn AMBIEN 10 MG TABS 765469 ZOLPIDEM TARTRATE Inactive CLONIDINE HCL 0.2 MG TABS 1 q 8 hrs as needed -greater than 160-htn CLONIDINE HCL 0.2 MG TABS 039178 CLONIDINE HCL Inactive ANTIVERT 25 MG TABS 1 q 6 hrs prn ANTIVERT 25 MG TABS MECLIZINE HCL Inactive NEURONTIN 400 MG CAPS Take one by mouth 3 times daily, morning, afternoon and evening.] NEURONTIN 400 MG CAPS 515752 GABAPENTIN Inactive IMDUR 120 MG [id number] 1 qd IMDUR 120 MG [id number] ISOSORBIDE MONONITRATE Inactive CVS MILK OF MAGNESIA [...] for arthritis pain MOBIC 15 MG TABS 882714 MELOXICAM Inactive LEVEMIR 100 UNIT/ML SOLN 5 units sub-q at bedtime LEVEMIR 100 UNIT/ML SOLN INSULIN DETEMIR Inactive SULFAMETHOXAZOLE-TMP DS 800-160 MG TABS 1 TAB PO BID SULFAMETHOXAZOLE-TMP DS 800-160 MG TABS 327832 SULFAMETHOXAZOLE-TRIMETHOPRIM Inactive AMBIEN 10 MG TAB 1 tab by mouth at bedtime as needed for sleep AMBIEN 10 MG TAB 565536 ZOLPIDEM TARTRATE Inactive POTASSIUM CHLORIDE CHELA ER 20 MEQ CR-TABS 1 tab PO daily POTASSIUM CHLORIDE CHELA ER 20 MEQ CR-TABS POTASSIUM CHLORIDE CHELA CR Inactive MIRALAX POWD 17 gms in 4 oz water or juice daily MIRALAX POWD 458959 POLYETHYLENE GLYCOL 3350 Inactive CVS VITAMIN C 500 MG TABS 1 po daily CVS VITAMIN C 500 MG TABS 872986 ASCORBIC ACID Inactive COZAAR 100 MG TABS 1 qd COZAAR 100 MG TABS 490691 LOSARTAN POTASSIUM Inactive ALLOPURINOL 300 MG TABS 1 qd ALLOPURINOL 300 MG TABS 685410 ALLOPURINOL Inactive BUDEPRION SR 150 MG [id number] 1 bid BUDEPRION SR 150 MG [id number] BUPROPION HCL Inactive DILANTIN 100 MG CAPS 3 cap tid DILANTIN 100 MG CAPS 482597 PHENYTOIN SODIUM EXTENDED Inactive HYDROCODONE-ACETAMINOPHEN 7.5-325 MG TABS 1 q 6 hrs prn HYDROCODONE-ACETAMINOPHEN 7.5-325 MG TABS 625702 HYDROCODONE- ACETAMINOPHEN Inactive GABAPENTIN 300 MG CAPS 1 CAP PO TID GABAPENTIN 300 MG CAPS 398670 GABAPENTIN Inactive FENTANYL 25 MCG/HR PT72 Apply to clean skin and change every 72 hours. 07/03 FENTANYL 25 MCG/HR PT72 247136 FENTANYL Inactive Advance Directives Directive Description Start [...] E&M - 3141-9 400 [lb_av] Weight Measured blood pressure, diastolic - 8462-4 84 mm[Hg] BP augustin blood pressure, systolic - 8480-6 141 mm[Hg] BP sys pulse rate E&M - 8867-4 84 /min Heart rate respiratory rate E&M - 9279-1 18 /min Resp rate temperature E&M 96.8 [degF] Body temperature weight E&M - 3141-9 395 [lb_av] Weight Measured blood pressure, diastolic - 8462-4 82 mm[Hg] BP augustin blood pressure, systolic - 8480-6 148 mm[Hg] BP sys pulse rate E&M - 8867-4 67 /min Heart rate respiratory rate E&M - 9279-1 20 /min Resp rate temperature E&M 97.7 [degF] Body temperature weight E&M - 3141-9 385 [lb_av] Weight Measured Diagnostic Results Date Name [...] 13 U/L alkaline phosphatase, serum 51 U/L hemoglobin A1C, blood, as % of total hemoglobin 6.8 % Chart Maintenance: Outside labs entered on flowsheet - Hematology leukocyte count, blood 6.9 10*3/mm3 hemoglobin, blood 14.4 g/dL platelet count 113 10*3/mm3 Lab Report: HGBA1C - Chemistry hemoglobin A1C, blood, as % of total hemoglobin 6.8 % 4.3-6.0 Encounters Code Encounter Date Provider Facility CPT-70832 Level 3 Est. Patient 18:04:07 CDT Jonel Hemphill MD [facility] CPT-45329 Level 3 Est. Patient 17:18:03 CDT Jonel Hemphill MD [facility] CPT-93632 Level 3 Est. Patient 21:58:03 [employer] Jonel Hemphill MD [facility] CPT-81639 Level 4 Est. Patient 18:03:14 CDT Jonel Yeager [facility]-55061 Level 4 Est. Patient 13:24:53 CDT Jonel Yeager [facility]-76269 Level 4 Est. Patient 09:15:44 CDT Jonel Yeager [facility]-19729 Level 4 Est. Patient 19:16:01 CDT Jonel Yeager [facility] CPT-76086 Level 4 Est. Patient 11:25:16 CDT Jonel Hemphill MD [facility] CPT-05104 Level 4 Est. Patient 09:00:40 CDT Jonel Yeager [facility]-98969 Level 4 Est. Patient 14:53:58 CDT Jonel Hemphill MD [facility] CPT-69104 Level 4 Est. Patient 22:59:01 CDT Jonel Hemphill MD [facility]-52335 Level 4 Est. Patient 09:29:57 CDT Jonel Hemphill MD [facility]-51966 Level 4 Est. Patient 12:35:53 [employer] Jonel Hemphill MD [facility] CPT-85577 Level 4 Est. Patient 22:36:09 [employer] Jonel Hemphill MD [facility]-89277 Level 2 Est. Patient 15:14:15 [employer] Mayco Shah APRN [facility] CPT-71583 Level 4 Est. Patient 10:36:22 [employer] Jonel Hemphill MD [facility] CPT-91523 Level 4 Est. Patient 22:01:13 DEC[employer] Jonel Hemphill MD [facility]-69690 Level 3 Est. Patient 21:50:37 [employer] Jonel Hemphill MD [facility] CPT-41278 Level 4 Est. Patient 15:02:43 CDT Rubin Pierre MD [facility] CPT-73080 Level 4 Est. Patient 14:27:35 CDT Jonel Hemphill MD [facility]-16614 Level 4 Est. Patient 12:41:17 CDT Jonel Hemphill MD [facility]-43568 Level 4 Est. Patient 16:18:55 CDT Jonel Hemphill MD [facility]-65308 Level 4 Est. Patient 17:58:05 CDT Jonel Hemphill MD [facility]-66330 Level 4 Est. Patient 22:10:06 CDT Jonel Hemphill MD [facility]-00099 Level 4 Est. Patient 13:22:09 CDT Jonel Hemphill MD [facility] CPT-00868 Level 4 Est. Patient 22:52:17 [employer] Jonel Hemphill MD [facility] CPT-68318 Level 3 Est. Patient 22:34:10 [employer] Jonel Hemphill MD [facility] CPT-11861 Level 4 Est. Patient 07:49:20 [employer] Jonel Hemphill MD [facility] Skilled CPT-06371 Level 3 Est. Patient 08:28:27 [employer] Jonel Hemphill MD [facility] Procedures Code Procedure Name Date Entry Date Standard Description CPT-61987 Level 3 Prison 19:38:15 [employer] CPT-99983 Level 3 Prison 19:28:48 [employer] CPT-80230 Level 3 Prison 18:02:20 [employer] CPT-67720 Level 3 Prison 15:02:14 [employer] CPT-02136 Level 3 Prison 12:25:37 CDT CPT-81163 Level 3 Prison 12:48:39 CDT CPT-88967 Level 3 Prison 17:39:14 CDT CPT-78195 Level 3 Prison 13:32:58 CDT CPT-36024 Level 3 Prison 17:43:43 CDT CPT-14719 Level 3 Prison 12:03:33 [employer] CPT-77852 Level 3 Prison 18:47:28 [employer] CPT-35616 Level 3 Prison 17:35:26 [employer] CPT-58512 Level 3 Prison 18:44:49 [employer] CPT-16891 Level 3 Prison 18:17:33 CDT CPT-55822 Level 3 Prison 09:25:33 CDT CPT-72907 Level 3 Prison 19:11:57 CDT CPT-33938 Level 3 Prison 09:25:52 CDT CPT-38167 Level 3 Prison 14:23:59 CDT CPT-85090 Level 3 Prison 12:09:43 CDT CPT-60125 Level 3 Prison 09:37:40 CDT CPT-98334 Level 3 Prison 18:23:02 CDT CPT-52751 Level 3 Prison 14:09:06 CDT CPT-36938 Level 3 Prison 12:43:27 [employer] CPT-96690 Postop F/U Visit 14:10:15 [employer] CPT-41733 [facility] 17:07:14 [employer] CPT-66500 Level 3 Prison 16:14:37 [employer] CPT-02362 Port a cath flush 11:47:42 CDT CPT-97770 Port a cath flush 08:29:49 CDT CPT-OV Office Visit 14:27:58 [employer]
--- OUTSIDE RECORDS SUMMARY | 2016-08-07 10:56 | XMS REPORT | Clinical Summary ---
Author Author Admin, [place] Organization [facility] Address Unknown Phone Unavailable Allergies, Adverse 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, MANAGER PAYMENT V58.69 Resolved Jonel Hemphill MD Long-term (current) [...] Coronary atherosclerosis of unspecified type of vessel, moapa or graft FH DIABETES V18.0 Resolved Jonel [...] Coronary atherosclerosis of unspecified type of vessel, moapa or graft CONSTIPATION 564.00 Resolved Jonel Hemphill [...] Kitchen Gout, unspecified RENAL INSUFFICIENCY 585.9 Resolved oJnel Hemphill MD Chronic kidney disease, unspecified RENAL [...] Jonel Hemphill MD Unspecified fall 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 USE, MANAGER PAYMENT ICD-V58.69 Inactive Jonel Hemphill MD DIABETES, TYPE [...] 1 po q6hr PRN Nausea ONDANSETRON HCL 41266640742 Active Jonel Hemphill MD Active XARELTO 20 MG ORAL TABS 1 daily RIVAROXABAN 94940015700 Active Jonel Hemphill MD Active JANUVIA 100 MG ORAL TABS 2 tabs daily SITAGLIPTIN PHOSPHATE 60134327820 Active Jonel Hemphill MD Active CELEXA 20 MG TABS Take 1 tablet 1x daily CITALOPRAM HYDROBROMIDE 20467437135 No Longer Active Jonel Hemphill MD Active ATIVAN 0.5 MG TABS Take 1 tablet 2x daily PRN LORAZEPAM 56162883732 No Longer Active Jonel Hemphill MD Active FUROSEMIDE 80 MG ORAL TABS 1 daily FUROSEMIDE 77655379822 Active Jonel Hemphill MD Active MECLIZINE HCL 25 MG CHEW TAB 1 four times a day as needed for dizziness 02/21 MECLIZINE HCL 16205971033 No Longer Active Jonel Hemphill MD Active ZYLOPRIM 300 MG TAB 1 BY MOUTH DAILY ALLOPURINOL 62653368254 No Longer Active Jonel Hemphill MD Active METOPROLOL TARTRATE 50 MG ORAL TABS 1 TAB BY MOUTH TWICE DAILY METOPROLOL TARTRATE 49654837942 No Longer Active Jonel Hemphill MD Active GABAPENTIN 400 MG ORAL CAPS 1 TAB BY MOUTH THREE TIMES DAILY 2015 GABAPENTIN 90842763005 No Longer Active Jonel Hemphill MD Active ULORIC 40 MG ORAL TABS 1 daily for gout. FEBUXOSTAT 03408820516 Active Marleni Romero Active HYDROCODONE-ACETAMINOPHEN 7.5-325 MG TABS 1 TAB PO Q 6 HRS PRN HYDROCODONE-ACETAMINOPHEN 34808939588 Active Jonel Hemphill MD Active METFORMIN HCL 1000 MG TABS 1 tablet by mouth twice daily METFORMIN HCL 76854641358 Active Marleni Romero Active FENTANYL 12 MCG/HR PT72 Apply to clean, dry skin and change every 72 hours FENTANYL 81214840042 Active Jonel Hemphill MD Active KLOR-CON 20 MEQ ORAL PACK 1 BY MOUTH DAILY POTASSIUM CHLORIDE 83728578073 Active Marleni Romero Active A+D FIRST AID EXT OINT APPLY OINTMENT AND RUFINO WRAPS TO LOWER EXTEREMETIES DAILY SKIN PROTECTANTS, MISC. 55437204020 Active Jonel Hemphill MD Active NYSTATIN 260156 UNIT/GM EXT OINT APPLY PRN TID TO GAULDING/RASH IN ABDOMINAL FOLDS NYSTATIN 45828722255 Active Jonel Hemphill MD Active GABAPENTIN 300 MG CAPS 1 CAP PO TID GABAPENTIN 70141096186 No Longer Active Jonel Hemphill MD Active DILANTIN 100 MG ORAL CAPS 1 THREE TIMES DAILY FOR SEIZURES PHENYTOIN SODIUM EXTENDED 14737034879 Active Marleni Romero Active CPAP APPLY AT HS CPAP Active Jonel Hemphill MD Active LISINOPRIL 40 MG TABS 1 tablet by mouth twice daily, for blood pressure 03/31 LISINOPRIL 83855299398 Active Jonel Hemphill MD Active BUPROPION HCL ER (SR) 150 MG [id number] 1 twice a day for depression BUPROPION HCL 99924025205 Active Jonel Hemphill MD Active MULTIVITAMINS CAPS 1 DAILY MULTIPLE VITAMIN 22932805987 Active Jonel Hemphill MD Active HYDROCODONE-ACETAMINOPHEN 7.5-325 MG TABS 1 q 6 hrs prn HYDROCODONE-ACETAMINOPHEN 38503469722 No Longer Active Jonel Hemphill MD Active DILANTIN 100 MG CAPS 3 cap tid PHENYTOIN SODIUM EXTENDED 32948069511 No Longer Active Jonel Hemphill MD Active BUDEPRION SR 150 MG [id number] 1 bid BUPROPION HCL 55880180432 No Longer Active Jonel Hemphill MD Active ALLOPURINOL 300 MG TABS 1 qd ALLOPURINOL 79160082816 No Longer Active Jonel Hemphill MD Active COZAAR 100 MG TABS 1 qd LOSARTAN POTASSIUM 53675266791 No Longer Active Jonel Hemphill MD Active CVS VITAMIN C 500 MG TABS 1 po daily ASCORBIC ACID 45199431382 No Longer Active Jonel Hemphill MD Active MIRALAX POWD 17 gms in 4 oz water or juice daily POLYETHYLENE GLYCOL 3350 58876032567 No Longer Active Jonel Hemphill MD Active POTASSIUM CHLORIDE CHELA ER 20 MEQ CR-TABS 1 tab PO daily POTASSIUM CHLORIDE CHELA CR 85023943106 No Longer Active Jonel Hemphill MD Active AMBIEN 10 MG TAB 1 tab by mouth at bedtime as needed for sleep ZOLPIDEM TARTRATE 31678306240 No Longer Active Jonel Hemphill MD Active SULFAMETHOXAZOLE-TMP DS 800-160 MG TABS 1 TAB PO BID SULFAMETHOXAZOLE-TRIMETHOPRIM 58096110497 No Longer Active Jonel Hepmhill MD Active NORCO 5-325 MG TABS 1-2 TAB Q 6 HRS PRN HYDROCODONE- ACETAMINOPHEN 53199916174 Active Jonel Hemphill MD Active LEVEMIR 100 UNIT/ML SOLN 5 units sub-q at bedtime INSULIN DETEMIR 09380298359 No Longer Active Tova Perez Active MOBIC 15 MG TABS 1 tab PO daily for arthritis pain MELOXICAM 41827733032 No Longer Active Tova Perez Active GLUCAGEN 1 MG SOLR INJECT 1MG IM IF BS LESS THAN 60 & RES. IS UNABLE TO SWALLOW GLUCAGON HCL (RDNA) 65369811178 No Longer Active Tova Perez Active CVS MILK OF MAGNESIA 1200 MG/15ML SUSP 30 ml daily for constipation MAGNESIUM HYDROXIDE 63033635479 No Longer Active Tova Perez Active IMDUR 120 MG [id number] 1 qd ISOSORBIDE MONONITRATE 27449739786 No Longer Active Tova Perez Active PHENYTOIN 50 MG CHEW 1 TAB PO BID PHENYTOIN 51718046534 Active Tova Perez Active NEURONTIN 400 MG CAPS Take one by mouth 3 times daily, morning, afternoon and evening.] GABAPENTIN 50442957800 No Longer Active Tova Perez Active ANTIVERT 25 MG TABS 1 q 6 hrs prn MECLIZINE HCL 29439385201 No Longer Active Jonel Hemphill MD Active CLONIDINE HCL 0.2 MG TABS 1 q 8 hrs as needed -greater than 160-htn CLONIDINE HCL 87242565860 No Longer Active Jonel Hemphill MD Active AMBIEN 10 MG TABS 1 q hs prn ZOLPIDEM TARTRATE 31708282051 No Longer Active Jonel Hemphill MD Active GNP THERAPEUTIC-M TABS 1 qd MULTIPLE VITAMINS- MINERALS 74218865242 No Longer Active Jonel Hemphill MD Active METOPROLOL TARTRATE 50 MG TABS 1 bid METOPROLOL TARTRATE 03187648226 No Longer Active Jonel Hemphill MD Active METFORMIN HCL 500 MG TABS 1 bod with food METFORMIN HCL 77252696735 No Longer Active Jonel Hemphill MD Active LISINOPRIL 40 MG TABS 1 qd LISINOPRIL 10973332134 No Longer Active Jonel Hemphill MD Active HYDROCHLOROTHIAZIDE 25 MG TABS 1 qd HYDROCHLOROTHIAZIDE 68275596251 No Longer Active Jonel Hemphill MD Active DURAGESIC-25 25 MCG/HR PT72 place 1 patch on the skin q72hrs for pain FENTANYL 38451971419 No Longer Active Jonel Hemphill MD Active FENTANYL 75 MCG/HR PT72 place 1 patch on skin q72hrs fr pain 2012 FENTANYL 56447472643 No Longer Active Jonel Hemphill MD Active FUROSEMIDE 40 MG TABS 1 q am FUROSEMIDE 13395019820 No Longer Active Jonel Hemphill MD Active HEPARIN (PORCINE) LOCK FLUSH 100 UNIT/ML SOLN Flush port a cath monthly every three week on with Heparin and NS HEPARIN LOCK FLUSH 70369715705 Active Jonel Hemphill MD Active FENTANYL 100 MCG/HR PT72 Apply every 3 days FENTANYL 66716395217 Active Jonel Hemphill MD Active FENTANYL 25 MCG/HR PT72 Apply to clean skin and change every 72 hours. 07/03 FENTANYL 63661328628 No Longer Active Jonel Hemphill MD Active FENTANYL 50 MCG/HR PT72 place 1 patch on skin q72 hours FENTANYL 08403289917 No Longer Active Mayco Shah APRN Active DURAGESIC-12 12 MCG/HR PT72 APPLY PATCH TO SKIN AND CHANGE EVERY 72 HOURS, ROTATE SITES FENTANYL 79331795761 No Longer Active Fozia HERNANDEZ Active FUROSEMIDE 20 MG TABS 1 qd FUROSEMIDE 18397249554 No Longer Active Mahogany Edcouch Active ADULT ASPIRIN EC LOW STRENGTH 81 MG TBEC 1 qd ASPIRIN 58480181934 Active MARY Perez Active FUROSEMIDE 20 MG TABS 1 qd FUROSEMIDE 20 MG TABS 537212 FUROSEMIDE Inactive DURAGESIC-12 12 MCG/HR PT72 APPLY PATCH TO SKIN AND CHANGE EVERY 72 HOURS, ROTATE SITES DURAGESIC-12 12 MCG/HR PT72 238813 FENTANYL Inactive FENTANYL 50 MCG/HR PT72 place 1 patch on skin q72 hours FENTANYL 50 MCG/HR PT72 525775 FENTANYL Inactive FUROSEMIDE 40 MG TABS 1 q am FUROSEMIDE 40 MG TABS 121769 FUROSEMIDE Inactive FENTANYL 75 MCG/HR PT72 place 1 patch on skin q72hrs fr pain 2012 FENTANYL 75 MCG/HR PT72 787140 FENTANYL Inactive DURAGESIC-25 25 MCG/HR PT72 place 1 patch on the skin q72hrs for pain DURAGESIC-25 25 MCG/HR PT72 061001 FENTANYL Inactive HYDROCHLOROTHIAZIDE 25 MG TABS 1 qd HYDROCHLOROTHIAZIDE 25 MG TABS 987396 HYDROCHLOROTHIAZIDE Inactive LISINOPRIL 40 MG TABS 1 qd LISINOPRIL 40 MG TABS 744720 LISINOPRIL Inactive METFORMIN HCL 500 MG TABS 1 bod with food METFORMIN HCL 500 MG TABS 643276 METFORMIN HCL Inactive METOPROLOL TARTRATE 50 MG TABS 1 bid METOPROLOL TARTRATE 50 MG TABS 738010 METOPROLOL TARTRATE Inactive GNP THERAPEUTIC-M TABS 1 qd GNP THERAPEUTIC-M TABS MULTIPLE VITAMINS-MINERALS Inactive AMBIEN 10 MG TABS 1 q hs prn AMBIEN 10 MG TABS 670856 ZOLPIDEM TARTRATE Inactive CLONIDINE HCL 0.2 MG TABS 1 q 8 hrs as needed -greater than 160-htn CLONIDINE HCL 0.2 MG TABS 515835 CLONIDINE HCL Inactive ANTIVERT 25 MG TABS 1 q 6 hrs prn ANTIVERT 25 MG TABS MECLIZINE HCL Inactive NEURONTIN 400 MG CAPS Take one by mouth 3 times daily, morning, afternoon and evening.] NEURONTIN 400 MG CAPS 306409 GABAPENTIN Inactive IMDUR 120 MG [id number] 1 qd IMDUR 120 MG [id number] ISOSORBIDE MONONITRATE Inactive CVS MILK OF MAGNESIA [...] for arthritis pain MOBIC 15 MG TABS 986720 MELOXICAM Inactive LEVEMIR 100 UNIT/ML SOLN 5 units sub-q at bedtime LEVEMIR 100 UNIT/ML SOLN INSULIN DETEMIR Inactive SULFAMETHOXAZOLE-TMP DS 800-160 MG TABS 1 TAB PO BID SULFAMETHOXAZOLE-TMP DS 800-160 MG TABS 308566 SULFAMETHOXAZOLE-TRIMETHOPRIM Inactive AMBIEN 10 MG TAB 1 tab by mouth at bedtime as needed for sleep AMBIEN 10 MG TAB 250036 ZOLPIDEM TARTRATE Inactive POTASSIUM CHLORIDE CHELA ER 20 MEQ CR-TABS 1 tab PO daily POTASSIUM CHLORIDE CHELA ER 20 MEQ CR-TABS POTASSIUM CHLORIDE CHELA CR Inactive MIRALAX POWD 17 gms in 4 oz water or juice daily MIRALAX POWD 859882 POLYETHYLENE GLYCOL 3350 Inactive CVS VITAMIN C 500 MG TABS 1 po daily CVS VITAMIN C 500 MG TABS 311431 ASCORBIC ACID Inactive COZAAR 100 MG TABS 1 qd COZAAR 100 MG TABS 342853 LOSARTAN POTASSIUM Inactive ALLOPURINOL 300 MG TABS 1 qd ALLOPURINOL 300 MG TABS 555137 ALLOPURINOL Inactive BUDEPRION SR 150 MG [id number] 1 bid BUDEPRION SR 150 MG [id number] BUPROPION HCL Inactive DILANTIN 100 MG CAPS 3 cap tid DILANTIN 100 MG CAPS 580101 PHENYTOIN SODIUM EXTENDED Inactive HYDROCODONE-ACETAMINOPHEN 7.5-325 MG TABS 1 q 6 hrs prn HYDROCODONE-ACETAMINOPHEN 7.5-325 MG TABS 731133 HYDROCODONE- ACETAMINOPHEN Inactive GABAPENTIN 300 MG CAPS 1 CAP PO TID GABAPENTIN 300 MG CAPS 563488 GABAPENTIN Inactive GABAPENTIN 400 MG ORAL CAPS 1 TAB BY MOUTH THREE TIMES DAILY 2015 GABAPENTIN 400 MG ORAL CAPS 969576 GABAPENTIN Inactive METOPROLOL TARTRATE 50 MG ORAL TABS 1 TAB BY MOUTH TWICE DAILY METOPROLOL TARTRATE 50 MG ORAL TABS 205485 METOPROLOL TARTRATE Inactive ZYLOPRIM 300 MG TAB 1 BY MOUTH DAILY ZYLOPRIM 300 MG TAB 433029 ALLOPURINOL Inactive MECLIZINE HCL 25 MG CHEW TAB 1 four times a day as needed for dizziness 02/21 MECLIZINE HCL 25 MG CHEW TAB 509092 MECLIZINE HCL Inactive ATIVAN 0.5 MG TABS Take 1 tablet 2x daily PRN ATIVAN 0.5 MG TABS 105848 LORAZEPAM Inactive CELEXA 20 MG TABS Take 1 tablet 1x daily CELEXA 20 MG TABS 420938 CITALOPRAM HYDROBROMIDE Inactive FENTANYL 25 MCG/HR PT72 Apply to clean skin and change every 72 hours. 07/03 FENTANYL 25 MCG/HR PT72 987217 FENTANYL Inactive Advance Directives Directive Description Start [...] 98.6 [degF] Body temperature weight E&M - 5921-9 339 [lb_av] Weight Measured blood pressure, diastolic [...] 97.8 [degF] Body temperature weight E&M - 5671-9 343 [lb_av] Weight Measured blood pressure, diastolic [...] 10*3/mm3 Encounters Code Encounter Date Provider Facility CPT-99251 Level 3 Est. Patient 19:05:03 CDT Jonel Hemphill MD [facility]-04950 Level 3 Est. Patient 17:30:47 CDT Kevin Link MD [facility]-43009 Level 3 Est. Patient 18:04:07 CDT Jonel Hemphill MD [facility] CPT-57171 Level 3 Est. Patient 17:18:03 CDT Jonel Hemphill MD [facility] CPT-14902 Level 3 Est. Patient 21:58:03 METAL CUT OFF SAW OPERATOR Jonel Hemphill MD [facility]-63654 Level 4 Est. Patient 18:03:14 CDT Jonel Yeager [facility]-56065 Level 4 Est. Patient 13:24:53 CDT Jonel Hemphill MD [facility]-61341 Level 4 Est. Patient 09:15:44 CDT Jonel Hemphill MD [facility]-75540 Level 4 Est. Patient 19:16:01 CDT Jonel Yeager [facility]-43449 Level 4 Est. Patient 11:25:16 CDT Jonel Hemphill MD [facility] CPT-87560 Level 4 Est. Patient 09:00:40 CDT Jonel Yeager [facility]-96456 Level 4 Est. Patient 14:53:58 CDT Jonel Hemphill MD [facility] CPT-87665 Level 4 Est. Patient 22:59:01 CDT Jonel Hemphill MD [facility]-62271 Level 4 Est. Patient 09:29:57 CDT Jonel Hemphill MD [facility]-00474 Level 4 Est. Patient 12:35:53 METAL CUT OFF SAW OPERATOR Jonel Hemphill MD [facility]-29955 Level 4 Est. Patient 22:36:09 METAL CUT OFF SAW OPERATOR Jonel Hemphill MD [facility]-32427 Level 2 Est. Patient 15:14:15 METAL CUT OFF SAW OPERATOR Mayco Shah APRN [facility] CPT-67966 Level 4 Est. Patient 10:36:22 METAL CUT OFF SAW OPERATOR Jonel Hemphill MD [facility] CPT-75494 Level 4 Est. Patient 22:01:13 METAL CUT OFF SAW OPERATOR Jonel Hemphill MD [facility]-85205 Level 3 Est. Patient 21:50:37 METAL CUT OFF SAW OPERATOR Jonel Hemphill MD [facility] CPT-40944 Level 4 Est. Patient 15:02:43 CDT Rubin Pierre MD [facility] CPT-50356 Level 4 Est. Patient 14:27:35 CDT Jonel Hemphill MD [facility]-41209 Level 4 Est. Patient 12:41:17 CDT Jonel Hemphill MD [facility]-64461 Level 4 Est. Patient 16:18:55 CDT Jonel Hemphill MD [facility]-14387 Level 4 Est. Patient 17:58:05 CDT Jonel Hemphill MD [facility]-31809 Level 4 Est. Patient 22:10:06 CDT Jonel Hemphill MD [facility]-17283 Level 4 Est. Patient 13:22:09 CDT Jonel Hemphill MD [facility]-71219 Level 4 Est. Patient 22:52:17 METAL CUT OFF SAW OPERATOR Jonel Hemphill MD [facility]-50267 Level 3 Est. Patient 22:34:10 METAL CUT OFF SAW OPERATOR Jonel Hemphill MD [facility]-86865 Level 4 Est. Patient 07:49:20 METAL CUT OFF SAW OPERATOR Jonel Hemphill MD [facility] CPT-93316 Level 3 Est. Patient 08:28:27 METAL CUT OFF SAW OPERATOR Jonel Hemphill MD [facility] Procedures Code Procedure Name Date Entry Date Standard Description CPT-85502 Level 3 Assisted 19:03:14 CDT CPT-38024 Level 3 Assisted 17:42:11 CDT CPT-71322 Level 3 Assisted 16:04:10 CDT CPT-04028 Level 3 Assisted 19:38:15 METAL CUT OFF SAW OPERATOR CPT-69011 Level 3 Assisted 19:28:48 METAL CUT OFF SAW OPERATOR CPT-03313 Level 3 Assisted 18:02:20 METAL CUT OFF SAW OPERATOR CPT-43012 Level 3 Assisted 15:02:14 METAL CUT OFF SAW OPERATOR CPT-54083 Level 3 Assisted 12:25:37 CDT CPT-06404 Level 3 Assisted 12:48:39 CDT CPT-61536 Level 3 Assisted 17:39:14 CDT CPT-90909 Level 3 Assisted 13:32:58 CDT CPT-56633 Level 3 Assisted 17:43:43 CDT CPT-98640 Level 3 Assisted 12:03:33 METAL CUT OFF SAW OPERATOR CPT-09272 Level 3 Assisted 18:47:28 METAL CUT OFF SAW OPERATOR CPT-95877 Level 3 Assisted 17:35:26 METAL CUT OFF SAW OPERATOR CPT-31907 Level 3 Assisted 18:44:49 METAL CUT OFF SAW OPERATOR CPT-07815 Level 3 Assisted 18:17:33 CDT CPT-36893 Level 3 Assisted 09:25:33 CDT CPT-72884 Level 3 Assisted 19:11:57 CDT CPT-13821 Level 3 Assisted 09:25:52 CDT CPT-59105 Level 3 Assisted 14:23:59 CDT CPT-48598 Level 3 Assisted 12:09:43 CDT CPT-54978 Level 3 Assisted 09:37:40 CDT CPT-05335 Level 3 Assisted 18:23:02 CDT CPT-93340 Level 3 Assisted 14:09:06 CDT CPT-14422 Level 3 Assisted 12:43:27 METAL CUT OFF SAW OPERATOR CPT-67388 Postop F/U Visit 14:10:15 METAL CUT OFF SAW OPERATOR CPT-44973 [facility] 17:07:14 METAL CUT OFF SAW OPERATOR CPT-35201 Level 3 Assisted 16:14:37 METAL CUT OFF SAW OPERATOR CPT-16114 Port a cath flush 11:47:42 CDT CPT-35822 Port a cath flush 08:29:49 CDT CPT-OV Office Visit 14:27:58 METAL CUT OFF SAW OPERATOR
--- OUTSIDE RECORDS SUMMARY | 2016-08-07 10:58 | XMS REPORT ---
Author Author [facility] Medical Staff Organization [facility] Address [address] [place], [place] [id number] Phone [phone] Care Team Providers Care Broker Assistant Name Role Phone IDA ROSARIO, FRANKO PP [phone] IDA ROSARIO, FRANKO PP [phone] FRANKO PRIETO MD PP [phone] Summary purpose CCDA Sent to [facility] Chief Complaint and Reason for Visit [...] Code Type Description Date Performed Performing Physician [id number] CPT-4 ELECTROCARDIOGRAM REPORT 03-23-2016 ARISTEO BILLY Functional status No functional or [...]
--- OUTSIDE RECORDS SUMMARY | 2016-08-07 10:58 | XMS REPORT | Clinical Summary ---
Author Author Admin, [place] Organization [facility] Address Unknown Phone Unavailable Allergies, Adverse 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, FLARE BREAKER V58.69 Resolved Jonel Hemphill MD Long-term (current) [...] Coronary atherosclerosis of unspecified type of vessel, [place] or graft FH DIABETES V18.0 Resolved Jonel [...] Coronary atherosclerosis of unspecified type of vessel, [place] or graft CONSTIPATION 564.00 Resolved Jonel Hemphill [...] Jonel Hemphill MD Unspecified fall 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 USE, FLARE BREAKER ICD-V58.69 Inactive Jonel Hemphill MD DIABETES, TYPE [...] Hemphill MD Cellulitis, leg, right ICD-682.6 Inactive Jonle Hemphill MD Flank pain, right ICD-789.09 Inactive Jonel Hemphill MD Medication List Medication Instructions Start Date Stop Date Generic Name NDC Status Provider Patient Instruction ZOFRAN 4 MG TABS 1 po q6hr PRN Nausea ONDANSETRON HCL [id number] Active Jonel Hemphill MD Active XARELTO 20 MG ORAL TABS 1 daily RIVAROXABAN 52652931613 Active Jonel Hemphill MD Active JANUVIA 100 MG ORAL TABS 2 tabs daily SITAGLIPTIN PHOSPHATE 21073951643 Active Jonel Hemphill MD Active CELEXA 20 MG TABS Take 1 tablet 1x daily CITALOPRAM HYDROBROMIDE 06219099194 No Longer Active Jonel Hemphill MD Active ATIVAN 0.5 MG TABS Take 1 tablet 2x daily PRN LORAZEPAM 61327645827 No Longer Active Jonel Hemphill MD Active FUROSEMIDE 80 MG ORAL TABS 1 daily FUROSEMIDE 72856636248 Active Jonel Hemphill MD Active MECLIZINE HCL 25 MG CHEW TAB 1 four times a day as needed for dizziness 02/21 MECLIZINE HCL 72065651169 No Longer Active Jonel Hemphill MD Active ZYLOPRIM 300 MG TAB 1 BY MOUTH DAILY ALLOPURINOL 22913130480 No Longer Active Jonel Hemphill MD Active METOPROLOL TARTRATE 50 MG ORAL TABS 1 TAB BY MOUTH TWICE DAILY METOPROLOL TARTRATE 49987185768 No Longer Active Jonel Hemphill MD Active GABAPENTIN 400 MG ORAL CAPS 1 TAB BY MOUTH THREE TIMES DAILY 2015 GABAPENTIN 49850616173 No Longer Active Jonel Hemphill MD Active ULORIC 40 MG ORAL TABS 1 daily for gout. FEBUXOSTAT 51754332894 Active Marleni Romero Active HYDROCODONE-ACETAMINOPHEN 7.5-325 MG TABS 1 TAB PO Q 6 HRS PRN HYDROCODONE-ACETAMINOPHEN 65666458784 Active Jonel Hemphill MD Active METFORMIN HCL 1000 MG TABS 1 tablet by mouth twice daily METFORMIN HCL 22214653444 Active Marleni Romero Active FENTANYL 12 MCG/HR PT72 Apply to clean, dry skin and change every 72 hours FENTANYL 94133732384 Active Jonel Hemphill MD Active KLOR-CON 20 MEQ ORAL PACK 1 BY MOUTH DAILY POTASSIUM CHLORIDE 60779481121 Active Marleni Romero Active A+D FIRST AID EXT OINT APPLY OINTMENT AND RUFINO WRAPS TO LOWER EXTEREMETIES DAILY SKIN PROTECTANTS, MISC. 23809045439 Active Jonel Hemphill MD Active NYSTATIN 030090 UNIT/GM EXT OINT APPLY PRN TID TO GAULDING/RASH IN ABDOMINAL FOLDS NYSTATIN 04609614709 Active Jonel Hemphill MD Active GABAPENTIN 300 MG CAPS 1 CAP PO TID GABAPENTIN 06925797382 No Longer Active Jonel Hemphill MD Active DILANTIN 100 MG ORAL CAPS 1 THREE TIMES DAILY FOR SEIZURES PHENYTOIN SODIUM EXTENDED 01181546146 Active Marleni Romero Active CPAP APPLY AT HS CPAP Active Jonel Hemphill MD Active LISINOPRIL 40 MG TABS 1 tablet by mouth twice daily, for blood pressure 03/31 LISINOPRIL 35840558663 Active Jonel Hemphill MD Active BUPROPION HCL ER (SR) 150 MG [id number] 1 twice a day for depression BUPROPION HCL 31266050263 Active Jonel Hemphill MD Active MULTIVITAMINS CAPS 1 DAILY MULTIPLE VITAMIN 30302856173 Active Jonel Hemphill MD Active HYDROCODONE-ACETAMINOPHEN 7.5-325 MG TABS 1 q 6 hrs prn HYDROCODONE-ACETAMINOPHEN 89932701334 No Longer Active Jonel Hemphill MD Active DILANTIN 100 MG CAPS 3 cap tid PHENYTOIN SODIUM EXTENDED 36663375746 No Longer Active Jonel Hemphill MD Active BUDEPRION SR 150 MG [id number] 1 bid BUPROPION HCL 68689709735 No Longer Active Jonel Hemphill MD Active ALLOPURINOL 300 MG TABS 1 qd ALLOPURINOL 66003322691 No Longer Active Jonel Hemphill MD Active COZAAR 100 MG TABS 1 qd LOSARTAN POTASSIUM 84415809804 No Longer Active Jonel Hemphill MD Active CVS VITAMIN C 500 MG TABS 1 po daily ASCORBIC ACID 76044290385 No Longer Active Jonel Hemphill MD Active MIRALAX POWD 17 gms in 4 oz water or juice daily POLYETHYLENE GLYCOL 3350 04770398340 No Longer Active Jonel Hemphill MD Active POTASSIUM CHLORIDE CHELA ER 20 MEQ CR-TABS 1 tab PO daily POTASSIUM CHLORIDE CHELA CR 42969262236 No Longer Active Jonel Hemphill MD Active AMBIEN 10 MG TAB 1 tab by mouth at bedtime as needed for sleep ZOLPIDEM TARTRATE 74236808268 No Longer Active Jonel Hemphill MD Active SULFAMETHOXAZOLE-TMP DS 800-160 MG TABS 1 TAB PO BID SULFAMETHOXAZOLE-TRIMETHOPRIM 12454692767 No Longer Active Jonel Hemphill MD Active NORCO 5-325 MG TABS 1-2 TAB Q 6 HRS PRN HYDROCODONE- ACETAMINOPHEN 19878935498 Active Jonel Hemphill MD Active LEVEMIR 100 UNIT/ML SOLN 5 units sub-q at bedtime INSULIN DETEMIR 48892120093 No Longer Active Tova Perez Active MOBIC 15 MG TABS 1 tab PO daily for arthritis pain MELOXICAM 93801221116 No Longer Active Tova Perez Active GLUCAGEN 1 MG SOLR INJECT 1MG IM IF BS LESS THAN 60 & RES. IS UNABLE TO SWALLOW GLUCAGON HCL (RDNA) 81390695050 No Longer Active Tova Perez Active [facility]S MILK OF MAGNESIA 1200 MG/15ML SUSP 30 ml daily for constipation MAGNESIUM HYDROXIDE 14614795485 No Longer Active Tova Perez Active IMDUR 120 MG [id number] 1 qd ISOSORBIDE MONONITRATE 04044545298 No Longer Active Tova Perez Active PHENYTOIN 50 MG CHEW 1 TAB PO BID PHENYTOIN 72926475113 Active Tova Perez Active NEURONTIN 400 MG CAPS Take one by mouth 3 times daily, morning, afternoon and evening.] GABAPENTIN 44574349184 No Longer Active Tova Perez Active ANTIVERT 25 MG TABS 1 q 6 hrs prn MECLIZINE HCL 01664355297 No Longer Active Jonel Hemphill MD Active CLONIDINE HCL 0.2 MG TABS 1 q 8 hrs as needed -greater than 160-htn CLONIDINE HCL 50199636365 No Longer Active Jonel Hemphill MD Active AMBIEN 10 MG TABS 1 q hs prn ZOLPIDEM TARTRATE 27581000659 No Longer Active Jonel Hemphill MD Active GNP THERAPEUTIC-M TABS 1 qd MULTIPLE VITAMINS- MINERALS 43861677714 No Longer Active Jonel Hemphill MD Active METOPROLOL TARTRATE 50 MG TABS 1 bid METOPROLOL TARTRATE 72349835637 No Longer Active Jonel Hemphill MD Active METFORMIN HCL 500 MG TABS 1 bod with food METFORMIN HCL 26848750842 No Longer Active Jonel Hemphill MD Active LISINOPRIL 40 MG TABS 1 qd LISINOPRIL 44915171490 No Longer Active Jonel Hemphill MD Active HYDROCHLOROTHIAZIDE 25 MG TABS 1 qd HYDROCHLOROTHIAZIDE 14934279920 No Longer Active Jonel Hemphill MD Active DURAGESIC-25 25 MCG/HR PT72 place 1 patch on the skin q72hrs for pain FENTANYL 90277075820 No Longer Active Jonel Hemphill MD Active FENTANYL 75 MCG/HR PT72 place 1 patch on skin q72hrs fr pain 2012 FENTANYL 66795675278 No Longer Active Jonel Hemphill MD Active FUROSEMIDE 40 MG TABS 1 q am FUROSEMIDE 18801662749 No Longer Active Jonel Hemphill MD Active HEPARIN (PORCINE) LOCK FLUSH 100 UNIT/ML SOLN Flush port a cath monthly every three week on with Heparin and NS HEPARIN LOCK FLUSH 10119425625 Active Jonel Hemphill MD Active FENTANYL 100 MCG/HR PT72 Apply every 3 days FENTANYL 81913354685 Active Jonel Hemphill MD Active FENTANYL 25 MCG/HR PT72 Apply to clean skin and change every 72 hours. 07/03 FENTANYL 93812550790 No Longer Active Jonel Hemphill MD Active FENTANYL 50 MCG/HR PT72 place 1 patch on skin q72 hours FENTANYL 17270142561 No Longer Active Mayco Shah APRN Active DURAGESIC-12 12 MCG/HR PT72 APPLY PATCH TO SKIN AND CHANGE EVERY 72 HOURS, ROTATE SITES FENTANYL 43626652260 No Longer Active Fozia HERNANDEZ Active FUROSEMIDE 20 MG TABS 1 qd FUROSEMIDE 22530324272 No Longer Active Mahogany Patton Active ADULT ASPIRIN EC LOW STRENGTH 81 MG TBEC 1 qd ASPIRIN 72243867714 Active MARY Perez Active FUROSEMIDE 20 MG TABS 1 qd FUROSEMIDE 20 MG TABS 878547 FUROSEMIDE Inactive DURAGESIC-12 12 MCG/HR PT72 APPLY PATCH TO SKIN AND CHANGE EVERY 72 HOURS, ROTATE SITES DURAGESIC-12 12 MCG/HR PT72 657806 FENTANYL Inactive FENTANYL 50 MCG/HR PT72 place 1 patch on skin q72 hours FENTANYL 50 MCG/HR PT72 779993 FENTANYL Inactive FUROSEMIDE 40 MG TABS 1 q am FUROSEMIDE 40 MG TABS 527450 FUROSEMIDE Inactive FENTANYL 75 MCG/HR PT72 place 1 patch on skin q72hrs fr pain 2012 FENTANYL 75 MCG/HR PT72 754968 FENTANYL Inactive DURAGESIC-25 25 MCG/HR PT72 place 1 patch on the skin q72hrs for pain DURAGESIC-25 25 MCG/HR PT72 373182 FENTANYL Inactive HYDROCHLOROTHIAZIDE 25 MG TABS 1 qd HYDROCHLOROTHIAZIDE 25 MG TABS 417161 HYDROCHLOROTHIAZIDE Inactive LISINOPRIL 40 MG TABS 1 qd LISINOPRIL 40 MG TABS 371261 LISINOPRIL Inactive METFORMIN HCL 500 MG TABS 1 bod with food METFORMIN HCL 500 MG TABS 734294 METFORMIN HCL Inactive METOPROLOL TARTRATE 50 MG TABS 1 bid METOPROLOL TARTRATE 50 MG TABS 115119 METOPROLOL TARTRATE Inactive GNP THERAPEUTIC-M TABS 1 qd GNP THERAPEUTIC-M TABS MULTIPLE VITAMINS-MINERALS Inactive AMBIEN 10 MG TABS 1 q hs prn AMBIEN 10 MG TABS 375801 ZOLPIDEM TARTRATE Inactive CLONIDINE HCL 0.2 MG TABS 1 q 8 hrs as needed -greater than 160-htn CLONIDINE HCL 0.2 MG TABS 992507 CLONIDINE HCL Inactive ANTIVERT 25 MG TABS 1 q 6 hrs prn ANTIVERT 25 MG TABS MECLIZINE HCL Inactive NEURONTIN 400 MG CAPS Take one by mouth 3 times daily, morning, afternoon and evening.] NEURONTIN 400 MG CAPS 483173 GABAPENTIN Inactive IMDUR 120 MG [id number] 1 qd IMDUR 120 MG [id number] ISOSORBIDE MONONITRATE Inactive CVS MILK OF MAGNESIA [...] for arthritis pain MOBIC 15 MG TABS 299678 MELOXICAM Inactive LEVEMIR 100 UNIT/ML SOLN 5 units sub-q at bedtime LEVEMIR 100 UNIT/ML SOLN INSULIN DETEMIR Inactive SULFAMETHOXAZOLE-TMP DS 800-160 MG TABS 1 TAB PO BID SULFAMETHOXAZOLE-TMP DS 800-160 MG TABS 352572 SULFAMETHOXAZOLE-TRIMETHOPRIM Inactive AMBIEN 10 MG TAB 1 tab by mouth at bedtime as needed for sleep AMBIEN 10 MG TAB 082683 ZOLPIDEM TARTRATE Inactive POTASSIUM CHLORIDE CHELA ER 20 MEQ CR-TABS 1 tab PO daily POTASSIUM CHLORIDE CHELA ER 20 MEQ CR-TABS POTASSIUM CHLORIDE CHELA CR Inactive MIRALAX POWD 17 gms in 4 oz water or juice daily MIRALAX POWD 163219 POLYETHYLENE GLYCOL 3350 Inactive CVS VITAMIN C 500 MG TABS 1 po daily CVS VITAMIN C 500 MG TABS 500222 ASCORBIC ACID Inactive COZAAR 100 MG TABS 1 qd COZAAR 100 MG TABS 316641 LOSARTAN POTASSIUM Inactive ALLOPURINOL 300 MG TABS 1 qd ALLOPURINOL 300 MG TABS 154593 ALLOPURINOL Inactive BUDEPRION SR 150 MG [id number] 1 bid BUDEPRION SR 150 MG [id number] BUPROPION HCL Inactive DILANTIN 100 MG CAPS 3 cap tid DILANTIN 100 MG CAPS 873075 PHENYTOIN SODIUM EXTENDED Inactive HYDROCODONE-ACETAMINOPHEN 7.5-325 MG TABS 1 q 6 hrs prn HYDROCODONE-ACETAMINOPHEN 7.5-325 MG TABS 139241 HYDROCODONE- ACETAMINOPHEN Inactive GABAPENTIN 300 MG CAPS 1 CAP PO TID GABAPENTIN 300 MG CAPS 512715 GABAPENTIN Inactive GABAPENTIN 400 MG ORAL CAPS 1 TAB BY MOUTH THREE TIMES DAILY 2015 GABAPENTIN 400 MG ORAL CAPS 982868 GABAPENTIN Inactive METOPROLOL TARTRATE 50 MG ORAL TABS 1 TAB BY MOUTH TWICE DAILY METOPROLOL TARTRATE 50 MG ORAL TABS 239192 METOPROLOL TARTRATE Inactive ZYLOPRIM 300 MG TAB 1 BY MOUTH DAILY ZYLOPRIM 300 MG TAB 315963 ALLOPURINOL Inactive MECLIZINE HCL 25 MG CHEW TAB 1 four times a day as needed for dizziness 02/21 MECLIZINE HCL 25 MG CHEW TAB 248754 MECLIZINE HCL Inactive ATIVAN 0.5 MG TABS Take 1 tablet 2x daily PRN ATIVAN 0.5 MG TABS 125044 LORAZEPAM Inactive CELEXA 20 MG TABS Take 1 tablet 1x daily CELEXA 20 MG TABS 548105 CITALOPRAM HYDROBROMIDE Inactive FENTANYL 25 MCG/HR PT72 Apply to clean skin and change every 72 hours. 07/03 FENTANYL 25 MCG/HR PT72 862299 FENTANYL Inactive Advance Directives Directive Description Start [...] 98.6 [degF] Body temperature weight E&M - 7471-9 339 [lb_av] Weight Measured blood pressure, diastolic [...] 97.8 [degF] Body temperature weight E&M - 4461-9 343 [lb_av] Weight Measured blood pressure, diastolic [...] 10*3/mm3 Encounters Code Encounter Date Provider Facility CPT-62106 Level 3 Est. Patient 19:05:03 CDT Jonel Hemphill MD [facility]-29609 Level 3 Est. Patient 17:30:47 CDT Kevin Link MD [facility]-12658 Level 3 Est. Patient 18:04:07 CDT Jonel Hemphill MD [facility]-89700 Level 3 Est. Patient 17:18:03 CDT Jonel Hemphill MD [facility]-11881 Level 3 Est. Patient 21:58:03 UX CONSULTANT Jonel Hemphill MD [facility]-85179 Level 4 Est. Patient 18:03:14 CDT Jonel Yeager [facility]-94408 Level 4 Est. Patient 13:24:53 CDT Jonel Yeager [facility]-64890 Level 4 Est. Patient 09:15:44 CDT Jonel Yeager [facility]-13201 Level 4 Est. Patient 19:16:01 CDT Jonel Yeager [facility]-28526 Level 4 Est. Patient 11:25:16 CDT Jonel Hemphill MD [facility]-25418 Level 4 Est. Patient 09:00:40 CDT Jonel Hemphill MD [facility] CPT-13973 Level 4 Est. Patient 14:53:58 CDT Jonel Hemphill MD [facility] CPT-07557 Level 4 Est. Patient 22:59:01 CDT Jonel Hemphill MD [facility]-80928 Level 4 Est. Patient 09:29:57 CDT Jonel Hemphill MD [facility]-46643 Level 4 Est. Patient 12:35:53 UX CONSULTANT Jonel Hemphill MD [facility]-58191 Level 4 Est. Patient 22:36:09 UX CONSULTANT Jonel Hemphill MD [facility]-59771 Level 2 Est. Patient 15:14:15 UX CONSULTANT Mayco Shah APRN [facility] CPT-83721 Level 4 Est. Patient 10:36:22 UX CONSULTANT Jonel Hemphill MD [facility] CPT-51934 Level 4 Est. Patient 22:01:13 UX CONSULTANT Jonel Hemphill MD [facility]-72622 Level 3 Est. Patient 21:50:37 UX CONSULTANT Jonel Hemphill MD [facility] CPT-68150 Level 4 Est. Patient 15:02:43 CDT Rubin Pierre MD [facility] CPT-36926 Level 4 Est. Patient 14:27:35 CDT Jonel Hemphill MD [facility]-29206 Level 4 Est. Patient 12:41:17 CDT Jonel Hemphill MD [facility]-32450 Level 4 Est. Patient 16:18:55 CDT Jonel Hemphill MD [facility]-45908 Level 4 Est. Patient 17:58:05 CDT Jonel Hemphill MD [facility]-56424 Level 4 Est. Patient 22:10:06 CDT Jonel Hemphill MD [facility]-62487 Level 4 Est. Patient 13:22:09 CDT Jonel Hemphill MD [facility] CPT-75465 Level 4 Est. Patient 22:52:17 UX CONSULTANT Jonel Hemphill MD [facility] CPT-05060 Level 3 Est. Patient 22:34:10 UX CONSULTANT Jonel Hemphill MD [facility] CPT-45012 Level 4 Est. Patient 07:49:20 UX CONSULTANT Jonel Hemphill MD [facility] Skilled CPT-96134 Level 3 Est. Patient 08:28:27 UX CONSULTANT Jonel Hemphill MD [facility] Procedures Code Procedure Name Date Entry Date Standard Description CPT-23973 Level 3 Usp 19:03:14 CDT CPT-83188 Level 3 Usp 17:42:11 CDT CPT-61223 Level 3 Usp 16:04:10 CDT CPT-50504 Level 3 Usp 19:38:15 UX CONSULTANT CPT-23991 Level 3 Usp 19:28:48 UX CONSULTANT CPT-01713 Level 3 Usp 18:02:20 UX CONSULTANT CPT-96885 Level 3 Usp 15:02:14 UX CONSULTANT CPT-92517 Level 3 Usp 12:25:37 CDT CPT-53924 Level 3 Usp 12:48:39 CDT CPT-84019 Level 3 Usp 17:39:14 CDT CPT-92427 Level 3 Usp 13:32:58 CDT CPT-68138 Level 3 Usp 17:43:43 CDT CPT-97782 Level 3 Usp 12:03:33 UX CONSULTANT CPT-73050 Level 3 Usp 18:47:28 UX CONSULTANT CPT-99716 Level 3 Usp 17:35:26 UX CONSULTANT CPT-30275 Level 3 Usp 18:44:49 UX CONSULTANT CPT-13615 Level 3 Usp 18:17:33 CDT CPT-30992 Level 3 Usp 09:25:33 CDT CPT-77739 Level 3 Usp 19:11:57 CDT CPT-91719 Level 3 Usp 09:25:52 CDT CPT-18051 Level 3 Usp 14:23:59 CDT CPT-77062 Level 3 Usp 12:09:43 CDT CPT-36495 Level 3 Usp 09:37:40 CDT CPT-86892 Level 3 Usp 18:23:02 CDT CPT-33261 Level 3 Usp 14:09:06 CDT CPT-36350 Level 3 Usp 12:43:27 UX CONSULTANT CPT-51985 Postop F/U Visit 14:10:15 UX CONSULTANT CPT-26296 [facility] 17:07:14 UX CONSULTANT CPT-52553 Level 3 Usp 16:14:37 UX CONSULTANT CPT-43780 Port a cath flush 11:47:42 CDT CPT-43266 Port a cath flush 08:29:49 CDT CPT-OV Office Visit 14:27:58 UX CONSULTANT
--- OUTSIDE RECORDS SUMMARY | 2016-08-07 10:59 | XMS REPORT | Clinical Summary ---
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 Resolved Jonel Hemphill MD Long-term (current) [...] Coronary atherosclerosis of unspecified type of vessel, [place] or graft FH DIABETES V18.0 Resolved Jonel [...] Coronary atherosclerosis of unspecified type of vessel, [place] or graft CONSTIPATION 564.00 Resolved Jonel Hemphill [...] Jonel Hemphill MD Acute bronchitis 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 USE, SENIOR MECHANICAL PROJECT ENGINEER ICD-V58.69 Inactive Jonel Hemphill MD DIABETES, TYPE [...] Instructions Start Date Stop Date Generic Name [facility] Status Provider Patient Instruction METFORMIN HCL 1000 MG TABS 1 tablet by mouth twice daily METFORMIN HCL 69946183612 Active Marleni Romero Active HYDROCODONE-ACETAMINOPHEN 7.5-325 MG TABS 1 to 2 four times a day as needed for pain HYDROCODONE-ACETAMINOPHEN 40200104104 Active Jonel Hemphill MD Active FENTANYL 12 MCG/HR PT72 Apply to clean, dry skin and change every 72 hours FENTANYL 89176425715 Active Jonel Hemphill MD Active KLOR-CON 20 MEQ ORAL PACK 1 BY MOUTH DAILY POTASSIUM CHLORIDE 83024518763 Active Marleni Romero Active A+D FIRST AID EXT OINT APPLY OINTMENT AND RUFINO WRAPS TO LOWER EXTEREMETIES DAILY SKIN PROTECTANTS, MISC. 02955755011 Active Jonel Hemphill MD Active NYSTATIN 154628 UNIT/GM EXT OINT APPLY PRN TID TO GAULDING/RASH IN ABDOMINAL FOLDS NYSTATIN 16719779630 Active Jonel Hemphill MD Active ATIVAN 0.5 MG TABS Take 1 tablet 2x daily PRN LORAZEPAM 22568539568 Active Jonel Hemphill MD Active GABAPENTIN 400 MG ORAL CAPS 1 TAB BY MOUTH THREE TIMES DAILY GABAPENTIN 52936025897 Active Jonel Hemphill MD Active GABAPENTIN 300 MG CAPS 1 CAP PO TID GABAPENTIN 86939200346 No Longer Active Jonel Hemphill MD Active DILANTIN 100 MG ORAL CAPS 1 THREE TIMES DAILY FOR SEIZURES PHENYTOIN SODIUM EXTENDED 89626010136 Active Marleni Romero Active CPAP APPLY AT HS CPAP Active Jonel Hemphill MD Active METOPROLOL TARTRATE 50 MG ORAL TABS 1 TAB BY MOUTH TWICE DAILY METOPROLOL TARTRATE 93442674592 Active Jonel Hemphill MD Active LISINOPRIL 40 MG TABS 1 tablet by mouth twice daily, for blood pressure 03/31 LISINOPRIL 96334538453 Active Jonel Hemphill MD Active BUPROPION HCL ER (SR) 150 MG [id number] 1 twice a day for depression BUPROPION HCL 84899472761 Active Jonel Hemphill MD Active MULTIVITAMINS CAPS 1 DAILY MULTIPLE VITAMIN 20490519589 Active Jonel Hemphill MD Active ZYLOPRIM 300 MG TAB 1 BY MOUTH DAILY ALLOPURINOL 97909782821 Active Jonel Hemphill MD Active HYDROCODONE-ACETAMINOPHEN 7.5-325 MG TABS 1 q 6 hrs prn HYDROCODONE-ACETAMINOPHEN 09225583729 No Longer Active Jonel Hemphill MD Active DILANTIN 100 MG CAPS 3 cap tid PHENYTOIN SODIUM EXTENDED 25627859410 No Longer Active Jonel Hemphill MD Active BUDEPRION SR 150 MG [id number] 1 bid BUPROPION HCL 75327548194 No Longer Active Jonel Hemphill MD Active ALLOPURINOL 300 MG TABS 1 qd ALLOPURINOL 06810917938 No Longer Active Jonel Hemphill MD Active COZAAR 100 MG TABS 1 qd LOSARTAN POTASSIUM 71700670695 No Longer Active Jonel Hemphill MD Active CVS VITAMIN C 500 MG TABS 1 po daily ASCORBIC ACID 63859087968 No Longer Active Jonel Hemphill MD Active MIRALAX POWD 17 gms in 4 oz water or juice daily POLYETHYLENE GLYCOL 3350 09484918166 No Longer Active Jonel Hemphill MD Active POTASSIUM CHLORIDE CHELA ER 20 MEQ CR-TABS 1 tab PO daily POTASSIUM CHLORIDE CHELA CR 97847357053 No Longer Active Jonel Hemphill MD Active AMBIEN 10 MG TAB 1 tab by mouth at bedtime as needed for sleep ZOLPIDEM TARTRATE 94596268006 No Longer Active Jonel Hemphill MD Active SULFAMETHOXAZOLE-TMP DS 800-160 MG TABS 1 TAB PO BID SULFAMETHOXAZOLE-TRIMETHOPRIM 83164057676 No Longer Active Jonel Hemphill MD Active NORCO 5-325 MG TABS 1-2 TAB Q 6 HRS PRN HYDROCODONE- ACETAMINOPHEN 07608197155 Active Jonel Hemphill MD Active LEVEMIR 100 UNIT/ML SOLN 5 units sub-q at bedtime INSULIN DETEMIR 17422266980 No Longer Active Tova Perez Active MOBIC 15 MG TABS 1 tab PO daily for arthritis pain MELOXICAM 21121984320 No Longer Active Tova Perez Active GLUCAGEN 1 MG SOLR INJECT 1MG IM IF BS LESS THAN 60 & RES. IS UNABLE TO SWALLOW GLUCAGON HCL (RDNA) 10282862144 No Longer Active Tova Perez Active [facility] MILK OF MAGNESIA 1200 MG/15ML SUSP 30 ml daily for constipation MAGNESIUM HYDROXIDE 62997613312 No Longer Active Tova Perez Active IMDUR 120 MG [id number] 1 qd ISOSORBIDE MONONITRATE 33397354474 No Longer Active Tova Perez Active PHENYTOIN 50 MG CHEW 1 TAB PO BID PHENYTOIN 22883548387 Active Tova Perez Active MECLIZINE HCL 25 MG CHEW TAB 1 four times a day as needed for dizziness 02/21 MECLIZINE HCL 82600248317 Active Tova Perez Active NEURONTIN 400 MG CAPS Take one by mouth 3 times daily, morning, afternoon and evening.] GABAPENTIN 82110158109 No Longer Active Tova Perez Active ANTIVERT 25 MG TABS 1 q 6 hrs prn MECLIZINE HCL 14918011859 No Longer Active Jonel Hemphill MD Active CLONIDINE HCL 0.2 MG TABS 1 q 8 hrs as needed -greater than 160-htn CLONIDINE HCL 06214896083 No Longer Active Jonel Hemphill MD Active AMBIEN 10 MG TABS 1 q hs prn ZOLPIDEM TARTRATE 91751014514 No Longer Active Jonel Hemphill MD Active GNP THERAPEUTIC-M TABS 1 qd MULTIPLE VITAMINS- MINERALS 23220995717 No Longer Active Jonel Hemphill MD Active METOPROLOL TARTRATE 50 MG TABS 1 bid METOPROLOL TARTRATE 70493769174 No Longer Active Jonel Hemphill MD Active METFORMIN HCL 500 MG TABS 1 bod with food METFORMIN HCL 19040461558 No Longer Active Jonel Hemphill MD Active LISINOPRIL 40 MG TABS 1 qd LISINOPRIL 22091837664 No Longer Active Jonel Hemphill MD Active HYDROCHLOROTHIAZIDE 25 MG TABS 1 qd HYDROCHLOROTHIAZIDE 37168301324 No Longer Active Jonel Hemphill MD Active DURAGESIC-25 25 MCG/HR PT72 place 1 patch on the skin q72hrs for pain FENTANYL 31018924930 No Longer Active Jonel Hemphill MD Active FENTANYL 75 MCG/HR PT72 place 1 patch on skin q72hrs fr pain 2012 FENTANYL 49248570433 No Longer Active Jonel Hemphill MD Active LASIX 20 MG TABS 1 tab PO q morning FUROSEMIDE 06501322996 Active Jonel Hemphill MD Active FUROSEMIDE 40 MG TABS 1 q am FUROSEMIDE 96811339072 No Longer Active Jonel Hemphill MD Active HEPARIN (PORCINE) LOCK FLUSH 100 UNIT/ML SOLN Flush port a cath monthly every three week on with Heparin and NS HEPARIN LOCK FLUSH 32188232577 Active Jonel Hemphill MD Active FENTANYL 100 MCG/HR PT72 Apply every 3 days FENTANYL 74516316645 Active Jonel Hemphill MD Active FENTANYL 25 MCG/HR PT72 Apply to clean skin and change every 72 hours. 07/03 FENTANYL 62027558870 No Longer Active Jonel Hemphill MD Active FENTANYL 50 MCG/HR PT72 place 1 patch on skin q72 hours FENTANYL 87800780902 No Longer Active Mayco Shah APRN Active CELEXA 20 MG TABS Take 1 tablet 1x daily CITALOPRAM HYDROBROMIDE 37222263439 Active Jonel Hemphill MD Active DURAGESIC-12 12 MCG/HR PT72 APPLY PATCH TO SKIN AND CHANGE EVERY 72 HOURS, ROTATE SITES FENTANYL 91628390524 No Longer Active Fozia Amador RMA Active FUROSEMIDE 20 MG TABS 1 qd FUROSEMIDE 56509603345 No Longer Active Mahogany Lecompton Active ADULT ASPIRIN EC LOW STRENGTH 81 MG TBEC 1 qd ASPIRIN 68351178808 Active MARY Perez Active FUROSEMIDE 20 MG TABS 1 qd FUROSEMIDE 20 MG TABS 859888 FUROSEMIDE Inactive DURAGESIC-12 12 MCG/HR PT72 APPLY PATCH TO SKIN AND CHANGE EVERY 72 HOURS, ROTATE SITES DURAGESIC-12 12 MCG/HR PT72 758040 FENTANYL Inactive FENTANYL 50 MCG/HR PT72 place 1 patch on skin q72 hours FENTANYL 50 MCG/HR PT72 954850 FENTANYL Inactive FUROSEMIDE 40 MG TABS 1 q am FUROSEMIDE 40 MG TABS 149634 FUROSEMIDE Inactive FENTANYL 75 MCG/HR PT72 place 1 patch on skin q72hrs fr pain 2012 FENTANYL 75 MCG/HR PT72 395015 FENTANYL Inactive DURAGESIC-25 25 MCG/HR PT72 place 1 patch on the skin q72hrs for pain DURAGESIC-25 25 MCG/HR PT72 828557 FENTANYL Inactive HYDROCHLOROTHIAZIDE 25 MG TABS 1 qd HYDROCHLOROTHIAZIDE 25 MG TABS 385562 HYDROCHLOROTHIAZIDE Inactive LISINOPRIL 40 MG TABS 1 qd LISINOPRIL 40 MG TABS 352220 LISINOPRIL Inactive METFORMIN HCL 500 MG TABS 1 bod with food METFORMIN HCL 500 MG TABS 872021 METFORMIN HCL Inactive METOPROLOL TARTRATE 50 MG TABS 1 bid METOPROLOL TARTRATE 50 MG TABS 914185 METOPROLOL TARTRATE Inactive GNP THERAPEUTIC-M TABS 1 qd GNP THERAPEUTIC-M TABS MULTIPLE VITAMINS-MINERALS Inactive AMBIEN 10 MG TABS 1 q hs prn AMBIEN 10 MG TABS 818026 ZOLPIDEM TARTRATE Inactive CLONIDINE HCL 0.2 MG TABS 1 q 8 hrs as needed -greater than 160-htn CLONIDINE HCL 0.2 MG TABS 602088 CLONIDINE HCL Inactive ANTIVERT 25 MG TABS 1 q 6 hrs prn ANTIVERT 25 MG TABS MECLIZINE HCL Inactive NEURONTIN 400 MG CAPS Take one by mouth 3 times daily, morning, afternoon and evening.] NEURONTIN 400 MG CAPS 313302 GABAPENTIN Inactive IMDUR 120 MG [id number] 1 qd IMDUR 120 MG [id number] ISOSORBIDE MONONITRATE Inactive CVS MILK OF MAGNESIA [...] for arthritis pain MOBIC 15 MG TABS 993927 MELOXICAM Inactive LEVEMIR 100 UNIT/ML SOLN 5 units sub-q at bedtime LEVEMIR 100 UNIT/ML SOLN INSULIN DETEMIR Inactive SULFAMETHOXAZOLE-TMP DS 800-160 MG TABS 1 TAB PO BID SULFAMETHOXAZOLE-TMP DS 800-160 MG TABS 310146 SULFAMETHOXAZOLE-TRIMETHOPRIM Inactive AMBIEN 10 MG TAB 1 tab by mouth at bedtime as needed for sleep AMBIEN 10 MG TAB 043510 ZOLPIDEM TARTRATE Inactive POTASSIUM CHLORIDE CHELA ER 20 MEQ CR-TABS 1 tab PO daily POTASSIUM CHLORIDE CHELA ER 20 MEQ CR-TABS POTASSIUM CHLORIDE CHELA CR Inactive MIRALAX POWD 17 gms in 4 oz water or juice daily MIRALAX POWD 785588 POLYETHYLENE GLYCOL 3350 Inactive CVS VITAMIN C 500 MG TABS 1 po daily CVS VITAMIN C 500 MG TABS 492152 ASCORBIC ACID Inactive COZAAR 100 MG TABS 1 qd COZAAR 100 MG TABS 593493 LOSARTAN POTASSIUM Inactive ALLOPURINOL 300 MG TABS 1 qd ALLOPURINOL 300 MG TABS 562619 ALLOPURINOL Inactive BUDEPRION SR 150 MG [id number] 1 bid BUDEPRION SR 150 MG [id number] BUPROPION HCL Inactive DILANTIN 100 MG CAPS 3 cap tid DILANTIN 100 MG CAPS 090701 PHENYTOIN SODIUM EXTENDED Inactive HYDROCODONE-ACETAMINOPHEN 7.5-325 MG TABS 1 q 6 hrs prn HYDROCODONE-ACETAMINOPHEN 7.5-325 MG TABS 264449 HYDROCODONE- ACETAMINOPHEN Inactive GABAPENTIN 300 MG CAPS 1 CAP PO TID GABAPENTIN 300 MG CAPS 963930 GABAPENTIN Inactive FENTANYL 25 MCG/HR PT72 Apply to clean skin and change every 72 hours. 07/03 FENTANYL 25 MCG/HR PT72 992861 FENTANYL Inactive Advance Directives Directive Description Start Date ADVANCE DIRECTIVE Immunizations Vaccine Administration Date Value Standard Description influenza immunization (Flu Vax) has been administered Influenza - Unspecified Formulation [CVX88] influenza virus vaccine, unspecified formulation pneumococcal immunization administered Pneumovax 23 [CVX33] pneumococcal polysaccharide vaccine, 23 valent Vital Signs Date Name Value Unit Range Description blood pressure, diastolic - 8462-4 79 mm[Hg] [...] Weight Measured blood pressure, diastolic - 8462-4 76 mm[Hg] BP augustin blood pressure, systolic - 8480-6 139 mm[Hg] BP sys pulse rate E&M - 8867-4 74 /min Heart rate respiratory rate E&M - 9279-1 18 /min Resp rate temperature E&M 96.2 [degF] Body temperature Diagnostic Results Date Name [...] A1C, blood, as % of total hemoglobin 5.7 % hemoglobin A1C, blood, as % of total hemoglobin 6.8 % Chart Maintenance: Outside labs entered on flowsheet - Hematology leukocyte count, blood 6.9 10*3/mm3 hemoglobin, blood 14.4 g/dL platelet count 113 10*3/mm3 Lab Report: CBC W/DIFF, Comp. Metabolic Panel, [facility] A/B - Chemistry sodium, serum 142 mmol/L 203-055 0858/01/20 potassium, serum 3.9 mmol/L 3.5-5.2 chloride, serum 104 mmol/L 98-107 carbon dioxide, venous blood 31.4 mmol/L 21.0-32.0 blood glucose 136 mg/dL 65-110 urea nitrogen, blood 15 mg/dL 7-18 creatinine, serum 0.90 mg/dL 0.60-1.30 bilirubin, serum, total 0.30 mg/dL 0.00-1.00 calcium, serum 8.0 mg/dL 8.5-10.1 aspartate aminotransferase (SGOT), serum 22 U/L 15-37 alanine aminotransferase (SGPT), serum 39 U/L 12-78 Lab Report: CBC W/DIFF, Comp. Metabolic Panel, [facility] INFLUENZA A/B - Hematology leukocyte count, blood 6.0 10^3/MM^3 10*3/mm3 4.6-10.2 neutrophils as percent of blood leukocytes 65.6 % 42.2-75.2 monocytes as percent of blood leukocytes 8.1 % 1.7-9.3 lymphocytes as percent of blood leukocytes 24.6 % 20.5-51.1 erythrocyte (RBC) count 4.36 10^6/MM^3 10*6/mm3 4.69-6.13 hemoglobin, blood 14.3 g/dL 13.5-17.5 hematocrit, blood 41.9 % 41.0-53.0 mean corpuscular volume, RBC 96 fL 80-97 mean corpuscular hemoglobin, RBC 32.8 pg 27.0-31.2 mean corpuscular hemoglobin concentration, RBC 34.1 G/DL % 31.8- 35.4 red blood cell distribution width 14.1 % 11.6-14.8 platelet count 111 10^3/MM^3 10*3/mm3 142-424 Lab Report: CBC W/DIFF, Comp. Metabolic Panel, [facility] A/B - Toxicology rapid flu test Negative Negative;Positive Lab Report: HGBA1C - Chemistry hemoglobin A1C, blood, as % of total hemoglobin 6.8 % 4.3-6.0 Encounters Code Encounter Date Provider Facility CPT-32508 Level 3 Est. Patient 18:04:07 CDT Jonel Hemphill MD [facility] CPT-11081 Level 3 Est. Patient 17:18:03 CDT Jonel Hemphill MD [facility] CPT-81292 Level 3 Est. Patient 21:58:03 LEADER TIER Jonel Hemphill MD [facility]-35342 Level 4 Est. Patient 18:03:14 CDT Jonel Yeager [facility]-98373 Level 4 Est. Patient 13:24:53 CDT Jonel Yeager [facility]-73689 Level 4 Est. Patient 09:15:44 CDT Jonel Yeager [facility]-79148 Level 4 Est. Patient 19:16:01 CDT Jonel Yeager [facility]-01289 Level 4 Est. Patient 11:25:16 CDT Jonel Hemphill MD [facility] CPT-03490 Level 4 Est. Patient 09:00:40 CDT Jonel Yeager [facility]-20443 Level 4 Est. Patient 14:53:58 CDT Jonel Hemphill MD [facility] CPT-14696 Level 4 Est. Patient 22:59:01 CDT Jonel Hemphill MD [facility]-89732 Level 4 Est. Patient 09:29:57 CDT Jonel Hemphill MD [facility]-60151 Level 4 Est. Patient 12:35:53 LEADER TIER Jonel Hemphill MD [facility]-29760 Level 4 Est. Patient 22:36:09 LEADER TIER Jonel Hemphill MD [facility]-74605 Level 2 Est. Patient 15:14:15 LEADER TIER Mayco Shah APRN [facility] CPT-00404 Level 4 Est. Patient 10:36:22 LEADER TIER Jonel Hemphill MD [facility]-10684 Level 4 Est. Patient 22:01:13 LEADER TIER Jonel Hemphill MD [facility]-15590 Level 3 Est. Patient 21:50:37 LEADER TIER Jonel Hemphill MD [facility]-70109 Level 4 Est. Patient 15:02:43 CDT Rubin Pierre MD [facility] CPT-96520 Level 4 Est. Patient 14:27:35 CDT Jonel Hemphill MD [facility]-52757 Level 4 Est. Patient 12:41:17 CDT Jonel Hemphill MD [facility]-72554 Level 4 Est. Patient 16:18:55 CDT Jonel Hemphill MD [facility]-72014 Level 4 Est. Patient 17:58:05 CDT Jonel Hemphill MD [facility]-01559 Level 4 Est. Patient 22:10:06 CDT Jonel Hemphill MD [facility]-65281 Level 4 Est. Patient 13:22:09 CDT Jonel Hemphill MD [facility] CPT-83370 Level 4 Est. Patient 22:52:17 LEADER TIER Jonel Hemphill MD [facility] CPT-05103 Level 3 Est. Patient 22:34:10 LEADER TIER Jonel Hemphill MD [facility] CPT-61800 Level 4 Est. Patient 07:49:20 LEADER TIER Jonel Hemphill MD [facility] Skilled CPT-27495 Level 3 Est. Patient 08:28:27 LEADER TIER Jonel Hemphill MD [facility] Procedures Code Procedure Name Date Entry Date Standard Description CPT-13460 Level 3 Halfway 19:28:48 LEADER TIER CPT-74557 Level 3 Halfway 18:02:20 LEADER TIER CPT-89135 Level 3 Halfway 15:02:14 LEADER TIER CPT-92831 Level 3 Halfway 12:25:37 CDT CPT-53917 Level 3 Halfway 12:48:39 CDT CPT-68133 Level 3 Halfway 17:39:14 CDT CPT-13307 Level 3 Halfway 13:32:58 CDT CPT-09450 Level 3 Halfway 17:43:43 CDT CPT-85052 Level 3 Halfway 12:03:33 LEADER TIER CPT-92793 Level 3 Halfway 18:47:28 LEADER TIER CPT-75466 Level 3 Halfway 17:35:26 LEADER TIER CPT-02749 Level 3 Halfway 18:44:49 LEADER TIER CPT-63128 Level 3 Halfway 18:17:33 CDT CPT-36544 Level 3 Halfway 09:25:33 CDT CPT-05439 Level 3 Halfway 19:11:57 CDT CPT-26376 Level 3 Halfway 09:25:52 CDT CPT-89753 Level 3 Halfway 14:23:59 CDT CPT-36653 Level 3 Halfway 12:09:43 CDT CPT-89429 Level 3 Halfway 09:37:40 CDT CPT-62263 Level 3 Halfway 18:23:02 CDT CPT-50171 Level 3 Halfway 14:09:06 CDT CPT-61451 Level 3 Halfway 12:43:27 LEADER TIER CPT-91893 Postop F/U Visit 14:10:15 LEADER TIER CPT-82353 [facility] 17:07:14 LEADER TIER CPT-04501 Level 3 Halfway 16:14:37 LEADER TIER CPT-81982 Port a cath flush 11:47:42 CDT CPT-03027 Port a cath flush 08:29:49 CDT CPT-OV Office Visit 14:27:58 LEADER TIER
--- OUTSIDE RECORDS SUMMARY | 2016-08-07 11:00 | XMS REPORT | Clinical Summary ---
Author Author Admin, KARLAE Organization [facility] Address Unknown Phone Unavailable Allergies, Adverse [...] stated as uncontrolled MORBID OBESITY 278.01 Active oJnel Hemphill MD Morbid obesity HYPERTENSION 401.1 Active Jonel Hemphill MD Benign essential hypertension 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 USE, CHIEF CRNA V58.69 Resolved Jonel Hemphill MD Long-term (current) [...] Coronary atherosclerosis of unspecified type of vessel, pala or graft FH DIABETES V18.0 Resolved Jonel [...] Coronary atherosclerosis of unspecified type of vessel, pala or graft CONSTIPATION 564.00 Resolved Jonel Hemphill [...] 780.60 Active Jonel Hemphill MD Fever, unspecified 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 USE, FCI ICD-V58.69 Inactive Jonel Hemphill MD DIABETES, TYPE [...] Jonel Hemphill MD Flank pain, right ICD-789.09 Malina Hemphill MD Medication List Medication Instructions Start Date Stop Date Generic Name NDC Status Provider Patient Instruction NORCO 5-325 MG TABS 1-2 TAB Q 6 HRS PRN HYDROCODONE- ACETAMINOPHEN 76535405716 Active Jonel Hemphill MD Active LEVEMIR 100 UNIT/ML SOLN 5 units sub-q at bedtime INSULIN DETEMIR 73659775429 No Longer Active Tova Perez Active MOBIC 15 MG TABS 1 tab PO daily for arthritis pain MELOXICAM 83977294074 No Longer Active Tova Perez Active GLUCAGEN 1 MG SOLR INJECT 1MG IM IF BS LESS THAN 60 & RES. IS UNABLE TO SWALLOW GLUCAGON HCL (RDNA) 82053980253 No Longer Active Tova Perez Active [facility] MILK OF MAGNESIA 1200 MG/15ML SUSP 30 ml daily for constipation MAGNESIUM HYDROXIDE 23983488200 No Longer Active Tova Perez Active IMDUR 120 MG [id number] 1 qd ISOSORBIDE MONONITRATE 09817234628 No Longer Active Tova Perez Active METFORMIN HCL 500 MG TABS 1 tablet by mouth twice daily METFORMIN HCL 85997371792 Active Tova Perez Active SULFAMETHOXAZOLE-TMP DS 800-160 MG TABS 1 TAB PO BID SULFAMETHOXAZOLE-TRIMETHOPRIM 77955622615 Active Tova Perez Active PHENYTOIN 50 MG CHEW 1 TAB PO BID PHENYTOIN 96035157176 Active Tova Perez Active MECLIZINE HCL 25 MG CHEW TAB 1 four times a day as needed for dizziness 02/21 MECLIZINE HCL 49403752711 Active Tova Perez Active GABAPENTIN 300 MG CAPS 1 CAP PO TID GABAPENTIN 06970266609 Active Tova Perez Active NEURONTIN 400 MG CAPS Take one by mouth 3 times daily, morning, afternoon and evening.] GABAPENTIN 09054187399 No Longer Active Tova Perez Active AMBIEN 10 MG TAB 1 tab by mouth at bedtime as needed for sleep ZOLPIDEM TARTRATE 49163741183 Active Jonel Hemphill MD Active POTASSIUM CHLORIDE CHELA ER 20 MEQ CR-TABS 1 tab PO daily POTASSIUM CHLORIDE CHELA CR 89675290060 Active Jonel Hemphill MD Active ANTIVERT 25 MG TABS 1 q 6 hrs prn MECLIZINE HCL 49126560561 No Longer Active Jonel Hemphill MD Active CLONIDINE HCL 0.2 MG TABS 1 q 8 hrs as needed -greater than 160-htn CLONIDINE HCL 89901788656 No Longer Active Jonel Hemphill MD Active AMBIEN 10 MG TABS 1 q hs prn ZOLPIDEM TARTRATE 74799034959 No Longer Active Jonel Hemphill MD Active GNP THERAPEUTIC-M TABS 1 qd MULTIPLE VITAMINS- MINERALS 61561673882 No Longer Active Jonel Hemphill MD Active METOPROLOL TARTRATE 50 MG TABS 1 bid METOPROLOL TARTRATE 90547364653 No Longer Active Jonel Hemphill MD Active METFORMIN HCL 500 MG TABS 1 bod with food METFORMIN HCL 44994617220 No Longer Active Jonel Hemphill MD Active LISINOPRIL 40 MG TABS 1 qd LISINOPRIL 30531531708 No Longer Active Jonel Hemphill MD Active HYDROCHLOROTHIAZIDE 25 MG TABS 1 qd HYDROCHLOROTHIAZIDE 95089709429 No Longer Active Jonel Hemphill MD Active DURAGESIC-25 25 MCG/HR PT72 place 1 patch on the skin q72hrs for pain FENTANYL 15940457488 No Longer Active Jonel Hemphill MD Active FENTANYL 75 MCG/HR PT72 place 1 patch on skin q72hrs fr pain 2012 FENTANYL 74265963387 No Longer Active Jonel Hemphill MD Active LASIX 20 MG TABS 1 tab PO q morning FUROSEMIDE 80366344737 Active Jonel Hemphill MD Active FUROSEMIDE 40 MG TABS 1 q am FUROSEMIDE 21530430502 No Longer Active Jonel Hemphill MD Active HEPARIN (PORCINE) LOCK FLUSH 100 UNIT/ML SOLN Flush port a cath monthly every three week on with Heparin and NS HEPARIN LOCK FLUSH 41033642663 Active Jonel Hemphill MD Active FENTANYL 100 MCG/HR PT72 Apply every 3 days FENTANYL 56388901572 Active Jonel Hemphill MD Active FENTANYL 25 MCG/HR PT72 Apply to clean skin and change every 72 hours. 07/03 FENTANYL 36390275959 No Longer Active Jonel Hemphill MD Active FENTANYL 50 MCG/HR PT72 place 1 patch on skin q72 hours FENTANYL 52759242085 No Longer Active Mayco Shah APRN Active HYDROCODONE-ACETAMINOPHEN 7.5-325 MG TABS 1 q 6 hrs prn HYDROCODONE-ACETAMINOPHEN 57369942525 Active Jonel Hemphill MD Active ATIVAN 0.5 MG TABS Take 1 tablet 2x daily LORAZEPAM 67926895897 Active Jonel Hemphill MD Active CELEXA 20 MG TABS Take 1 tablet 1x daily CITALOPRAM HYDROBROMIDE 62837555386 Active Jonel Hemphill MD Active MIRALAX POWD 17 gms in 4 oz water or juice daily POLYETHYLENE GLYCOL 3350 45108700409 Active Rubin Pierre MD Active DURAGESIC-12 12 MCG/HR PT72 APPLY PATCH TO SKIN AND CHANGE EVERY 72 HOURS, ROTATE SITES FENTANYL 41628594848 No Longer Active Fozia HERNANDEZ Active [facility] VITAMIN C 500 MG TABS 1 po daily ASCORBIC ACID 43504877020 Active Mahogany [place] Active FUROSEMIDE 20 MG TABS 1 qd FUROSEMIDE 29824286558 No Longer Active Mahogany [place] Active ADULT ASPIRIN EC LOW STRENGTH 81 MG TBEC 1 qd ASPIRIN 35128203532 Active MARY Perez Active DILANTIN 100 MG CAPS 3 cap tid PHENYTOIN SODIUM EXTENDED 05963326255 Active MARY Perez Active BUDEPRION SR 150 MG [id number] 1 bid BUPROPION HCL 20947953249 Active MARY Perez Active ALLOPURINOL 300 MG TABS 1 qd ALLOPURINOL 84768389844 Active MARY Perez Active COZAAR 100 MG TABS 1 qd LOSARTAN POTASSIUM 69414971525 Active MARY Perez Active FUROSEMIDE 20 MG TABS 1 qd FUROSEMIDE 20 MG TABS 602589 FUROSEMIDE Inactive DURAGESIC-12 12 MCG/HR PT72 APPLY PATCH TO SKIN AND CHANGE EVERY 72 HOURS, ROTATE SITES DURAGESIC-12 12 MCG/HR PT72 360648 FENTANYL Inactive FENTANYL 50 MCG/HR PT72 place 1 patch on skin q72 hours FENTANYL 50 MCG/HR PT72 744078 FENTANYL Inactive FUROSEMIDE 40 MG TABS 1 q am FUROSEMIDE 40 MG TABS 988710 FUROSEMIDE Inactive FENTANYL 75 MCG/HR PT72 place 1 patch on skin q72hrs fr pain 2012 FENTANYL 75 MCG/HR PT72 588213 FENTANYL Inactive DURAGESIC-25 25 MCG/HR PT72 place 1 patch on the skin q72hrs for pain DURAGESIC-25 25 MCG/HR PT72 389355 FENTANYL Inactive HYDROCHLOROTHIAZIDE 25 MG TABS 1 qd HYDROCHLOROTHIAZIDE 25 MG TABS 412509 HYDROCHLOROTHIAZIDE Inactive LISINOPRIL 40 MG TABS 1 qd LISINOPRIL 40 MG TABS 728915 LISINOPRIL Inactive METFORMIN HCL 500 MG TABS 1 bod with food METFORMIN HCL 500 MG TABS 022068 METFORMIN HCL Inactive METOPROLOL TARTRATE 50 MG TABS 1 bid METOPROLOL TARTRATE 50 MG TABS 954767 METOPROLOL TARTRATE Inactive GNP THERAPEUTIC-M TABS 1 qd GNP THERAPEUTIC-M TABS MULTIPLE VITAMINS-MINERALS Inactive AMBIEN 10 MG TABS 1 q hs prn AMBIEN 10 MG TABS 160071 ZOLPIDEM TARTRATE Inactive CLONIDINE HCL 0.2 MG TABS 1 q 8 hrs as needed -greater than 160-htn CLONIDINE HCL 0.2 MG TABS 802892 CLONIDINE HCL Inactive ANTIVERT 25 MG TABS 1 q 6 hrs prn ANTIVERT 25 MG TABS MECLIZINE HCL Inactive NEURONTIN 400 MG CAPS Take one by mouth 3 times daily, morning, afternoon and evening.] NEURONTIN 400 MG CAPS 325781 GABAPENTIN Inactive IMDUR 120 MG [id number] 1 qd IMDUR 120 MG [id number] ISOSORBIDE MONONITRATE Inactive [facility] MILK OF MAGNESIA [...] for arthritis pain MOBIC 15 MG TABS 757442 MELOXICAM Inactive LEVEMIR 100 UNIT/ML SOLN 5 units sub-q at bedtime LEVEMIR 100 UNIT/ML SOLN INSULIN DETEMIR Inactive FENTANYL 25 MCG/HR PT72 Apply to clean skin and change every 72 hours. 07/03 FENTANYL 25 MCG/HR PT72 104890 FENTANYL Inactive Advance Directives Directive Description Start Date ADVANCE DIRECTIVE Immunizations Vaccine Administration Date Value Standard Description influenza immunization (Flu Vax) has been administered Influenza - Unspecified Formulation [CVX88] influenza virus vaccine, unspecified formulation pneumococcal immunization administered Pneumovax 23 [CVX33] pneumococcal polysaccharide vaccine, 23 valent Vital Signs Date Name Value Unit Range Description blood pressure, diastolic - 8462-4 76 mm[Hg] BP augustin blood pressure, systolic - 8480-6 139 mm[Hg] BP sys pulse rate E&M - 8867-4 74 /min Heart rate respiratory rate E&M - 9279-1 18 /min Resp rate temperature E&M 96.2 [degF] Body temperature blood pressure, diastolic - 8462-4 83 mm[Hg] BP augustin blood pressure, systolic - 8480-6 146 mm[Hg] BP sys pulse rate E&M - 8867-4 69 /min Heart rate respiratory rate E&M - 9279-1 20 /min Resp rate temperature E&M 97 [degF] Body temperature blood pressure, diastolic - 8462-4 93 mm[Hg] [...] rate temperature E&M 97.3 [degF] Body temperature Diagnostic Results Date Name Value Unit Range Description Chart Maintenance: Outside labs entered on flowsheet - Chemistry hemoglobin A1C, blood, as % of total hemoglobin 5.7 % Chart Maintenance: Outside labs entered on flowsheet - Hematology leukocyte count, blood 7.5 10*3/mm3 hemoglobin, blood 14.5 g/dL platelet count 128 10*3/mm3 Lab Report: CBC W/DIFF - Hematology [...] count 121 10^3/MM^3 10*3/mm3 142-424 Lab Report: CBC W/DIFF, Comp. Metabolic Panel, MELANIE INFLUENZA A/B - Chemistry sodium, serum 142 mmol/L 289-836 9272/01/20 potassium, serum 3.9 mmol/L 3.5-5.2 chloride, serum 104 mmol/L 98-107 carbon dioxide, venous blood 31.4 mmol/L 21.0-32.0 blood glucose 136 mg/dL 65-110 urea nitrogen, blood 15 mg/dL 7-18 creatinine, serum 0.90 mg/dL 0.60-1.30 alanine aminotransferase (SGPT), serum 39 U/L 12-78 aspartate aminotransferase (SGOT), serum 22 U/L 15-37 calcium, serum 8.0 mg/dL 8.5-10.1 bilirubin, serum, total 0.30 mg/dL 0.00-1.00 Lab Report: CBC W/DIFF, Comp. Metabolic Panel, MELANIE INFLUENZA A/B - Hematology leukocyte count, blood [...] rapid flu test Negative Negative;Positive Lab Report: CBC, Comp. Metabolic Panel, Uric Acid - Chemistry sodium, serum 141 mmol/L 210-409 3450/05/09 potassium, serum 3.9 mmol/L 3.5-5.2 chloride, serum [...] Metabolic Panel, UADIP W/MICRO, AUTO - Chemistry blood glucose 90 mg/dL 65-110 carbon dioxide, venous blood 30.3 mmol/L 21.0-32.0 chloride, serum 102 mmol/L 98-107 potassium, serum 3.8 mmol/L 3.5-5.2 sodium, serum 140 mmol/L 175-270 1896/02/18 urea nitrogen, blood 14 mg/dL 7-18 creatinine, [...] 5.0-8.5 Encounters Code Encounter Date Provider Facility CPT-67599 Level 3 Est. Patient 18:04:07 CDT Jonel Hemphill MD [facility] CPT-27478 Level 3 Est. Patient 17:18:03 CDT Jonel Hemphill MD [facility] CPT-95775 Level 3 Est. Patient 21:58:03 [employer] Jonel Hemphill MD [facility] CPT-04377 Level 4 Est. Patient 18:03:14 CDT Jonel Hemphill MD [facility]-89520 Level 4 Est. Patient 13:24:53 CDT Jonel Hemphill MD [facility]-06598 Level 4 Est. Patient 09:15:44 CDT Jonel Hemphill MD [facility]-05208 Level 4 Est. Patient 19:16:01 CDT Jonel Hemphill MD [facility]-42615 Level 4 Est. Patient 11:25:16 CDT Jonel Hemphill MD [facility] CPT-30341 Level 4 Est. Patient 09:00:40 CDT Jonel Hemphill MD [facility]-74940 Level 4 Est. Patient 14:53:58 CDT Jonel Hemphill MD [facility] CPT-60871 Level 4 Est. Patient 22:59:01 CDT Jonel Hemphill MD [facility]-92114 Level 4 Est. Patient 09:29:57 CDT Jonel Hemphill MD [facility]-08767 Level 4 Est. Patient 12:35:53 [employer] Jonel Hemphill MD [facility]-07028 Level 4 Est. Patient 22:36:09 [employer] Jonel Hemphill MD [facility]-25803 Level 2 Est. Patient 15:14:15 [employer] Mayco Shah APRN [facility]-99775 Level 4 Est. Patient 10:36:22 [employer] Jonel Hemphill MD [facility] CPT-05955 Level 4 Est. Patient 22:01:13 [employer] Jonel Hemphill MD [facility]-86843 Level 3 Est. Patient 21:50:37 [employer] Jonel Hemphill MD [facility] CPT-39024 Level 4 Est. Patient 15:02:43 CDT Rubin Pierre MD [facility] CPT-62696 Level 4 Est. Patient 14:27:35 CDT Jonel Hemphill MD [facility]-65914 Level 4 Est. Patient 12:41:17 CDT Jonel Hemphill MD [facility]-25090 Level 4 Est. Patient 16:18:55 CDT Jonel Hemphill MD [facility]-59386 Level 4 Est. Patient 17:58:05 CDT Jonel Hemphill MD [facility]-92024 Level 4 Est. Patient 22:10:06 CDT Jonel Hemphill MD [facility] CPT-79508 Level 4 Est. Patient 13:22:09 CDT Jonel Hemphill MD [facility] CPT-63480 Level 4 Est. Patient 22:52:17 [employer] Jonel Hemphill MD [facility] CPT-44769 Level 3 Est. Patient 22:34:10 [employer] Jonel Hemphill MD [facility]-92668 Level 4 Est. Patient 07:49:20 [employer] Jonel Hemphill MD [facility] Skilled CPT-70280 Level 3 Est. Patient 08:28:27 [employer] Jonel Hemphill MD [facility] Procedures Code Procedure Name Date Entry Date Standard Description CPT-77520 Level 3 Residential 18:47:28 [employer] CPT-43220 Level 3 Residential 17:35:26 [employer] CPT-29955 Level 3 Residential 18:44:49 [employer] CPT-29819 Level 3 Residential 18:17:33 CDT CPT-67481 Level 3 Residential 09:25:33 CDT CPT-03988 Level 3 Residential 19:11:57 CDT CPT-61407 Level 3 Residential 09:25:52 CDT CPT-80071 Level 3 Residential 14:23:59 CDT CPT-88952 Level 3 Residential 12:09:43 CDT CPT-66897 Level 3 Residential 09:37:40 CDT CPT-77168 Level 3 Residential 18:23:02 CDT CPT-32931 Level 3 Residential 14:09:06 CDT CPT-73333 Level 3 Residential 12:43:27 [employer] CPT-89771 Postop F/U Visit 14:10:15 [employer] CPT-04660 [facility] 17:07:14 [employer] CPT-97986 Level 3 Residential 16:14:37 [employer] CPT-60921 Port a cath flush 11:47:42 CDT CPT-72539 Port a cath flush 08:29:49 CDT CPT-OV Office Visit 14:27:58 [employer]
--- OUTSIDE RECORDS SUMMARY | 2016-08-07 11:02 | XMS REPORT | Clinical Summary ---
Author Author Admin, [place] Organization [facility] PhoneTell Address Unknown Phone Unavailable Allergies, Adverse Reactions, Alerts Allergy Name Reaction Description Start Date Severity Status Provider PENICILLIN Critical Active [place] Giles, RMA Conditions or Problems Problem Name 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, [employer] V58.69 Resolved Jonel Hemphill MD Long-term (current) [...] Coronary atherosclerosis of unspecified type of vessel, [place] or graft FH DIABETES V18.0 Resolved Jonel [...] Coronary atherosclerosis of unspecified type of vessel, [place] or graft CONSTIPATION 564.00 Resolved Jonel Hemphill [...] Hemphill MD Obstructive sleep apnea (adult) (pediatric) Muscle spasm of right calf 728.85 Active Jonel Hemphill MD Spasm of muscle 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 USE, SENIOR CARE ICD-V58.69 Inactive Jonel Hemphill MD DIABETES, TYPE [...] prosthetic device, implant, 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 Malina Yipnsey MD AFTERCARE FOLLOW SURGERY SKIN&SUBCUT TISSUE NEC [...] Hemphill MD Cellulitis, leg, right ICD-682.6 Inactive Joenl Hemphill MD Flank pain, right ICD-789.09 Inactive Jonel Hemphill MD Eye pain ICD-379.91 Inactive Jonel Hemphill MD Fever ICD-780.60 Inactive Jonel Hemphill MD 10/25 Chest pain ICD-786.50 Inactive Jonel Hemphill MD Hip pain, right ICD-719.45 Inactive Jonel Hemphill MD Bronchitis-Acute ICD-466.0 Inactive Jonel Hemphill MD Cellulitis, leg, right ICD-682.6 Inactive Jonel Hemphill MD Chest wall pain, acute ICD-786.52 Inactive Jonel Hemphlil MD Medication List Medication Instructions Start Date Stop Date Generic Name NDC Status Provider Patient Instruction FENTANYL 12 MCG/HR PT72 Apply to clean, dry skin and change every 72 hours FENTANYL 15396819860 Active Jonel Hemphill MD Active MIRALAX POWD 17 gms in 4 oz water or juice daily POLYETHYLENE GLYCOL 3350 20599523126 Active Jonel Hemphill MD Active CVS MELATONIN 3 MG ORAL TABS 2 tabs at hs MELATONIN 42472821085 Active Jonel Hemphill MD Active MAGNESIUM GLUCONATE 500 MG ORAL TABS 1 tab twice daily MAGNESIUM GLUCONATE 27647425404 Active Jonel Hemphill MD Active OMEPRAZOLE 20 MG CPDR 1 tablet by mouth daily OMEPRAZOLE 45960941581 Active Jonel Hemphill MD Active DIGOXIN 125 MCG ORAL TABS 1 daily DIGOXIN 04395624085 Active Jonel Hemphill MD Active DILTIAZEM CD 240 MG ORAL [id number] 1 daily DILTIAZEM HCL COATED BEADS 32284649112 Active Jonel Hemphill MD Active NOVOLOG 100 UNIT/ML SC SOLN 70-140=0U 141-180=2 U 181-220=4U 221-260=6U 261- 300=8U 301-340=10U 927=509=59N 381-400=14U INSULIN ASPART 57367508778 Active Jonel Hemphill MD Active ACETAMINOPHEN 325 MG ORAL TABS 1 tab by mouth every 4 hours as needed ACETAMINOPHEN 22200388018 Active Jonel Hemphill MD Active FENTANYL 12 MCG/HR PT72 Apply to clean, dry skin and change every 72 hours FENTANYL 24696011705 No Longer Active Jonel Hemphill MD Active PHENYTOIN 50 MG CHEW 1 TAB PO BID PHENYTOIN 57813624619 No Longer Active Jonel Hemphill MD Active NORCO 5-325 MG TABS 1-2 TAB Q 6 HRS PRN HYDROCODONE- ACETAMINOPHEN 89060328352 No Longer Active Jonel Hemphill MD Active MULTIVITAMINS CAPS 1 DAILY MULTIPLE VITAMIN 34258497127 No Longer Active Jonel Hemphill MD Active BUPROPION HCL ER (SR) 150 MG [id number] 1 twice a day for depression BUPROPION HCL 48631905997 No Longer Active Jonel Hemphill MD Active LISINOPRIL 20 MG TABS 1 tablet by mouth daily LISINOPRIL 85306720733 Active Jonel Hemphill MD Active ULORIC 40 MG ORAL TABS 1 daily for gout. FEBUXOSTAT 83511349901 No Longer Active Jonel Hemphill MD Active CELEXA 20 MG TABS 1 tablet by mouth daily CITALOPRAM HYDROBROMIDE 23756890695 Active Marleni Raida Active ZOFRAN 4 MG TABS 1 po q6hr PRN Nausea ONDANSETRON HCL 82955119854 Active Jonel Hemphill MD Active XARELTO 20 MG ORAL TABS 1 daily RIVAROXABAN 81013833677 Active Jonel Hemphill MD Active JANUVIA 100 MG ORAL TABS 2 tabs daily SITAGLIPTIN PHOSPHATE 99922709415 Active Jonel Hemphill MD Active CELEXA 20 MG TABS Take 1 tablet 1x daily CITALOPRAM HYDROBROMIDE 42280151832 No Longer Active Jonel Hemphill MD Active ATIVAN 0.5 MG TABS Take 1 tablet 2x daily PRN LORAZEPAM 53055539311 No Longer Active Jonel Hemphill MD Active FUROSEMIDE 80 MG ORAL TABS 1 daily FUROSEMIDE 32727752541 Active Jonel Hemphill MD Active MECLIZINE HCL 25 MG CHEW TAB 1 four times a day as needed for dizziness 02/21 MECLIZINE HCL 57526495132 No Longer Active Jonel Hemphill MD Active ZYLOPRIM 300 MG TAB 1 BY MOUTH DAILY ALLOPURINOL 40671588847 No Longer Active Jonel Hemphill MD Active METOPROLOL TARTRATE 50 MG ORAL TABS 1 TAB BY MOUTH TWICE DAILY METOPROLOL TARTRATE 82135075284 No Longer Active Jonel Hemphill MD Active GABAPENTIN 400 MG ORAL CAPS 1 TAB BY MOUTH THREE TIMES DAILY 2015 GABAPENTIN 51648469465 No Longer Active Jonel Hemphill MD Active HYDROCODONE-ACETAMINOPHEN 7.5-325 MG TABS 1 TAB PO Q 6 HRS PRN HYDROCODONE-ACETAMINOPHEN 58381421807 Active Jonel Hemphill MD Active METFORMIN HCL 1000 MG TABS 1 tablet by mouth twice daily METFORMIN HCL 12568022681 Active Marleni Romero Active KLOR-CON 20 MEQ ORAL PACK 1 BY MOUTH DAILY POTASSIUM CHLORIDE 06639938121 Active Marleni Romeor Active A+D FIRST AID EXT OINT APPLY OINTMENT AND RUFINO WRAPS TO LOWER EXTEREMETIES DAILY SKIN PROTECTANTS, MISC. 10642250977 Active Jonel Hemphill MD Active NYSTATIN 535492 UNIT/GM EXT OINT APPLY PRN TID TO GAULDING/RASH IN ABDOMINAL FOLDS NYSTATIN 44220234153 Active Jonel Hemphill MD Active GABAPENTIN 300 MG CAPS 1 CAP PO TID GABAPENTIN 68280075915 No Longer Active Jonel Hemphill MD Active DILANTIN 100 MG ORAL CAPS 1 THREE TIMES DAILY FOR SEIZURES PHENYTOIN SODIUM EXTENDED 55496356786 Active Marleni Romero Active CPAP APPLY AT HS CPAP Active Jonel Hemphill MD Active HYDROCODONE-ACETAMINOPHEN 7.5-325 MG TABS 1 q 6 hrs prn HYDROCODONE-ACETAMINOPHEN 64855846948 No Longer Active Jonel Hemphill MD Active DILANTIN 100 MG CAPS 3 cap tid PHENYTOIN SODIUM EXTENDED 27439155052 No Longer Active Jonel Hemphill MD Active BUDEPRION SR 150 MG [id number] 1 bid BUPROPION HCL 76958156597 No Longer Active Jonel Hemphill MD Active ALLOPURINOL 300 MG TABS 1 qd ALLOPURINOL 50055351172 No Longer Active Jonel Hemphill MD Active COZAAR 100 MG TABS 1 qd LOSARTAN POTASSIUM 11271769406 No Longer Active Jonel Hemphill MD Active CVS VITAMIN C 500 MG TABS 1 po daily ASCORBIC ACID 39398073813 No Longer Active Jonel Hemphill MD Active MIRALAX POWD 17 gms in 4 oz water or juice daily POLYETHYLENE GLYCOL 3350 16569764610 No Longer Active Jonel Hemphill MD Active POTASSIUM CHLORIDE CHELA ER 20 MEQ CR-TABS 1 tab PO daily POTASSIUM CHLORIDE CHELA CR 81455906474 No Longer Active Jonel Hemphill MD Active AMBIEN 10 MG TAB 1 tab by mouth at bedtime as needed for sleep ZOLPIDEM TARTRATE 84048027065 No Longer Active Jonle Hemphill MD Active SULFAMETHOXAZOLE-TMP DS 800-160 MG TABS 1 TAB PO BID SULFAMETHOXAZOLE-TRIMETHOPRIM 19949362540 No Longer Active Jonel Hemphill MD Active LEVEMIR 100 UNIT/ML SOLN 5 units sub-q at bedtime INSULIN DETEMIR 27309226205 No Longer Active Tova Perez Active MOBIC 15 MG TABS 1 tab PO daily for arthritis pain MELOXICAM 60558309141 No Longer Active Tova Perez Active GLUCAGEN 1 MG SOLR INJECT 1MG IM IF BS LESS THAN 60 & RES. IS UNABLE TO SWALLOW GLUCAGON HCL (RDNA) 71510491474 No Longer Active Tova Perez Active CVS MILK OF MAGNESIA 1200 MG/15ML SUSP 30 ml daily for constipation MAGNESIUM HYDROXIDE 17188066701 No Longer Active Tova Perez Active IMDUR 120 MG [id number]-DRC 1 qd ISOSORBIDE MONONITRATE 41542225626 No Longer Active Tova Perez Active NEURONTIN 400 MG CAPS Take one by mouth 3 times daily, morning, afternoon and evening.] GABAPENTIN 27804517556 No Longer Active Tova Perez Active ANTIVERT 25 MG TABS 1 q 6 hrs prn MECLIZINE HCL 05284697448 No Longer Active Jonel Hemphill MD Active CLONIDINE HCL 0.2 MG TABS 1 q 8 hrs as needed -greater than 160-htn CLONIDINE HCL 94278117621 No Longer Active Jonel Hemphill MD Active AMBIEN 10 MG TABS 1 q hs prn ZOLPIDEM TARTRATE 60375735834 No Longer Active Jonel Hemphill MD Active GNP THERAPEUTIC-M TABS 1 qd MULTIPLE VITAMINS- MINERALS 12837734718 No Longer Active Jonel Hemphill MD Active METOPROLOL TARTRATE 50 MG TABS 1 bid METOPROLOL TARTRATE 42132097208 No Longer Active Jonel Hemphill MD Active METFORMIN HCL 500 MG TABS 1 bod with food METFORMIN HCL 59565516740 No Longer Active Jonel Hemphill MD Active LISINOPRIL 40 MG TABS 1 qd LISINOPRIL 20452334154 No Longer Active Jonel Hemphill MD Active HYDROCHLOROTHIAZIDE 25 MG TABS 1 qd HYDROCHLOROTHIAZIDE 24801945520 No Longer Active Jonel Hemphill MD Active DURAGESIC-25 25 MCG/HR PT72 place 1 patch on the skin q72hrs for pain FENTANYL 40639220161 No Longer Active Jonel Hemphill MD Active FENTANYL 75 MCG/HR PT72 place 1 patch on skin q72hrs fr pain 2012 FENTANYL 71231571505 No Longer Active Jonel Hemphill MD Active FUROSEMIDE 40 MG TABS 1 q am FUROSEMIDE 19513831507 No Longer Active Jonel Hemphill MD Active HEPARIN (PORCINE) LOCK FLUSH 100 UNIT/ML SOLN Flush port a cath monthly every three week on with Heparin and NS HEPARIN LOCK FLUSH 02732133422 Active Jonel Hemphill MD Active FENTANYL 100 MCG/HR PT72 Apply every 3 days FENTANYL 77494528254 Active Jonel Hemphill MD Active FENTANYL 25 MCG/HR PT72 Apply to clean skin and change every 72 hours. 07/03 FENTANYL 13920777184 No Longer Active Jonel Hemphill MD Active FENTANYL 50 MCG/HR PT72 place 1 patch on skin q72 hours FENTANYL 37750750239 No Longer Active Mayco Shah APRN Active DURAGESIC-12 12 MCG/HR PT72 APPLY PATCH TO SKIN AND CHANGE EVERY 72 HOURS, ROTATE SITES FENTANYL 53851604187 No Longer Active Fozia HERNANDEZ Active FUROSEMIDE 20 MG TABS 1 qd FUROSEMIDE 06622110971 No Longer Active Mahogany Hamel Active ADULT ASPIRIN EC LOW STRENGTH 81 MG TBEC 1 qd ASPIRIN 78279804351 Active MARY Perez Active FUROSEMIDE 20 MG TABS 1 qd FUROSEMIDE 20 MG TABS 613137 FUROSEMIDE Inactive DURAGESIC-12 12 MCG/HR PT72 APPLY PATCH TO SKIN AND CHANGE EVERY 72 HOURS, ROTATE SITES DURAGESIC-12 12 MCG/HR PT72 559231 FENTANYL Inactive FENTANYL 50 MCG/HR PT72 place 1 patch on skin q72 hours FENTANYL 50 MCG/HR PT72 611807 FENTANYL Inactive FUROSEMIDE 40 MG TABS 1 q am FUROSEMIDE 40 MG TABS 745146 FUROSEMIDE Inactive FENTANYL 75 MCG/HR PT72 place 1 patch on skin q72hrs fr pain 2012 FENTANYL 75 MCG/HR PT72 192228 FENTANYL Inactive DURAGESIC-25 25 MCG/HR PT72 place 1 patch on the skin q72hrs for pain DURAGESIC-25 25 MCG/HR PT72 166359 FENTANYL Inactive HYDROCHLOROTHIAZIDE 25 MG TABS 1 qd HYDROCHLOROTHIAZIDE 25 MG TABS 189605 HYDROCHLOROTHIAZIDE Inactive LISINOPRIL 40 MG TABS 1 qd LISINOPRIL 40 MG TABS 932768 LISINOPRIL Inactive METFORMIN HCL 500 MG TABS 1 bod with food METFORMIN HCL 500 MG TABS 671769 METFORMIN HCL Inactive METOPROLOL TARTRATE 50 MG TABS 1 bid METOPROLOL TARTRATE 50 MG TABS 435517 METOPROLOL TARTRATE Inactive GNP THERAPEUTIC-M TABS 1 qd GNP THERAPEUTIC-M TABS MULTIPLE VITAMINS-MINERALS Inactive AMBIEN 10 MG TABS 1 q hs prn AMBIEN 10 MG TABS 613024 ZOLPIDEM TARTRATE Inactive CLONIDINE HCL 0.2 MG TABS 1 q 8 hrs as needed -greater than 160-htn CLONIDINE HCL 0.2 MG TABS 364856 CLONIDINE HCL Inactive ANTIVERT 25 MG TABS 1 q 6 hrs prn ANTIVERT 25 MG TABS MECLIZINE HCL Inactive NEURONTIN 400 MG CAPS Take one by mouth 3 times daily, morning, afternoon and evening.] NEURONTIN 400 MG CAPS 553760 GABAPENTIN Inactive IMDUR 120 MG [id number] 1 qd IMDUR 120 MG [id number] ISOSORBIDE MONONITRATE Inactive CVS MILK OF MAGNESIA [...] for arthritis pain MOBIC 15 MG TABS 671854 MELOXICAM Inactive LEVEMIR 100 UNIT/ML SOLN 5 units sub-q at bedtime LEVEMIR 100 UNIT/ML SOLN INSULIN DETEMIR Inactive SULFAMETHOXAZOLE-TMP DS 800-160 MG TABS 1 TAB PO BID SULFAMETHOXAZOLE-TMP DS 800-160 MG TABS 298363 SULFAMETHOXAZOLE-TRIMETHOPRIM Inactive AMBIEN 10 MG TAB 1 tab by mouth at bedtime as needed for sleep AMBIEN 10 MG TAB 366495 ZOLPIDEM TARTRATE Inactive POTASSIUM CHLORIDE CHELA ER 20 MEQ CR-TABS 1 tab PO daily POTASSIUM CHLORIDE CHELA ER 20 MEQ CR-TABS POTASSIUM CHLORIDE CHELA CR Inactive MIRALAX POWD 17 gms in 4 oz water or juice daily MIRALAX POWD 495165 POLYETHYLENE GLYCOL 3350 Inactive CVS VITAMIN C 500 MG TABS 1 po daily CVS VITAMIN C 500 MG TABS 922860 ASCORBIC ACID Inactive COZAAR 100 MG TABS 1 qd COZAAR 100 MG TABS 169221 LOSARTAN POTASSIUM Inactive ALLOPURINOL 300 MG TABS 1 qd ALLOPURINOL 300 MG TABS 423921 ALLOPURINOL Inactive BUDEPRION SR 150 MG [id number] 1 bid BUDEPRION SR 150 MG [id number] BUPROPION HCL Inactive DILANTIN 100 MG CAPS 3 cap tid DILANTIN 100 MG CAPS 995505 PHENYTOIN SODIUM EXTENDED Inactive HYDROCODONE-ACETAMINOPHEN 7.5-325 MG TABS 1 q 6 hrs prn HYDROCODONE-ACETAMINOPHEN 7.5-325 MG TABS 519654 HYDROCODONE- ACETAMINOPHEN Inactive GABAPENTIN 300 MG CAPS 1 CAP PO TID GABAPENTIN 300 MG CAPS 845813 GABAPENTIN Inactive GABAPENTIN 400 MG ORAL CAPS 1 TAB BY MOUTH THREE TIMES DAILY 2015 GABAPENTIN 400 MG ORAL CAPS 293494 GABAPENTIN Inactive METOPROLOL TARTRATE 50 MG ORAL TABS 1 TAB BY MOUTH TWICE DAILY METOPROLOL TARTRATE 50 MG ORAL TABS 402634 METOPROLOL TARTRATE Inactive ZYLOPRIM 300 MG TAB 1 BY MOUTH DAILY ZYLOPRIM 300 MG TAB 447050 ALLOPURINOL Inactive MECLIZINE HCL 25 MG CHEW TAB 1 four times a day as needed for dizziness 02/21 MECLIZINE HCL 25 MG CHEW TAB 052537 MECLIZINE HCL Inactive ATIVAN 0.5 MG TABS Take 1 tablet 2x daily PRN ATIVAN 0.5 MG TABS 677469 LORAZEPAM Inactive CELEXA 20 MG TABS Take 1 tablet 1x daily CELEXA 20 MG TABS 009642 CITALOPRAM HYDROBROMIDE Inactive ULORIC 40 MG ORAL TABS 1 daily for gout. ULORIC 40 MG ORAL TABS FEBUXOSTAT Inactive BUPROPION HCL ER (SR) 150 MG [id number] 1 twice a day for depression BUPROPION HCL ER (SR) 150 MG [id number] BUPROPION HCL Inactive MULTIVITAMINS CAPS 1 DAILY MULTIVITAMINS CAPS MULTIPLE VITAMIN Inactive NORCO 5-325 MG TABS 1-2 TAB Q 6 HRS PRN NORCO 5-325 MG TABS 031673 HYDROCODONE-ACETAMINOPHEN Inactive PHENYTOIN 50 MG CHEW 1 TAB PO BID PHENYTOIN 50 MG CHEW 7528651 PHENYTOIN Inactive FENTANYL 12 MCG/HR PT72 Apply to clean, dry skin and change every 72 hours FENTANYL 12 MCG/HR PT72 284092 FENTANYL Inactive FENTANYL 25 MCG/HR PT72 Apply to clean skin and change every 72 hours. 2013/ 05/22 FENTANYL 25 MCG/HR PT72 605457 FENTANYL Inactive Advance Directives Directive Description Start Date ADVANCE DIRECTIVE Immunizations Vaccine Administration Date Value Standard Description influenza immunization (Flu Vax) has been administered Influenza - Unspecified Formulation [CVX88] influenza virus vaccine, unspecified formulation pneumococcal immunization administered Pneumovax 23 [CVX33] pneumococcal polysaccharide vaccine, 23 valent Vital Signs Date Name Value Unit Range Description blood pressure, diastolic - 8462-4 42 mm[Hg] BP augustin blood pressure, systolic - 8480-6 131 mm[Hg] BP sys pulse rate E&M - 8867-4 92 /min Heart rate temperature E&M 98.9 [degF] Body temperature blood pressure, diastolic - [...] 9279-1 18 /min Resp rate temperature E&M 98.6 [degF] Body temperature weight E&M - 3141-9 331 [lb_av] Weight Measured blood pressure, diastolic - [...] rate temperature E&M 97.0 [degF] Body temperature Diagnostic Results Date Name [...] glucose 239 mg/dL creatinine, serum 1.17 mg/dL Office Visit: NEED DABETIC SHOES - Basic LDL target level 100 mg/dL Office Visit: NEED DABETIC SHOES - Chemistry home glucose monitor utilized Yes cholesterol, target level 200 mg/dL triglyceride, target level 200 mg/dL HDL cholesterol, serum, target level 35 mg/dL Encounters Code Encounter Date Provider Facility CPT-20965 Level 4 Est. Patient 18:47:35 BLOCK SEALER Jonle Hemphill MD [facility] CPT-83245 Level 4 Est. Patient 10:04:48 BLOCK SEALER Jonel Hemphill MD [facility] CPT-09854 Level 3 Est. Patient 19:05:03 CDT Jonel Hemphill MD [facility] CPT-04626 Level 3 Est. Patient 17:30:47 CDT Kevin Link MD [facility] CPT-09287 Level 3 Est. Patient 18:04:07 CDT Jonel Hemphill MD [facility] CPT-24230 Level 3 Est. Patient 17:18:03 CDT Jonel Hemphill MD [facility] CPT-76740 Level 3 Est. Patient 21:58:03 BLOCK SEALER Jonel Hemphill MD [facility] CPT-20057 Level 4 Est. Patient 18:03:14 CDT Jonel [facility]-31573 Level 4 Est. Patient 13:24:53 CDT [facility] CPT-24423 Level 4 Est. Patient 09:15:44 CDT Jonel Hemphill MD [facility]-70817 Level 4 Est. Patient 19:16:01 CDT Jonel Hemphill MD [facility]-87441 Level 4 Est. Patient 11:25:16 CDT Jonel Hemphill MD [facility] CPT-80811 Level 4 Est. Patient 09:00:40 CDT Jonel Hemphill MD [facility]-80421 Level 4 Est. Patient 14:53:58 CDT Jonel Hemphill MD [facility]-09636 Level 4 Est. Patient 22:59:01 CDT Jonel Hemphill MD [facility]-85946 Level 4 Est. Patient 09:29:57 CDT Jonel Hemphill MD [facility]-77224 Level 4 Est. Patient 12:35:53 BLOCK SEALER Jonel Hemphill MD [facility]-17055 Level 4 Est. Patient 22:36:09 BLOCK SEALER Jonel Hemphill MD [facility]-99265 Level 2 Est. Patient 15:14:15 BLOCK SEALER Mayco Shah APRN [facility] CPT-38154 Level 4 Est. Patient 10:36:22 BLOCK SEALER Jonel Hemphill MD [facility] CPT-93394 Level 4 Est. Patient 22:01:13 BLOCK SEALER Jonel Hemphill MD [facility]-04814 Level 3 Est. Patient 21:50:37 BLOCK SEALER Jonel Hemphill MD [facility] CPT-54565 Level 4 Est. Patient 15:02:43 CDT Rubin Pierre MD [facility] CPT-84519 Level 4 Est. Patient 14:27:35 CDT Jonel Hemphill MD [facility]-84985 Level 4 Est. Patient 12:41:17 CDT Jonel Hemphill MD [facility]-33960 Level 4 Est. Patient 16:18:55 CDT Jonel Hemphill MD [facility]-76212 Level 4 Est. Patient 17:58:05 CDT Jonel Hemphill MD [facility]-07074 Level 4 Est. Patient 22:10:06 CDT Jonel Hemphill MD [facility]-75928 Level 4 Est. Patient 13:22:09 CDT Jonel Hemphill MD [facility]-11690 Level 4 Est. Patient 22:52:17 BLOCK SEALER Jonel Hemphill MD [facility]-99983 Level 3 Est. Patient 22:34:10 BLOCK SEALER Jonel Hemphill MD [facility]-76303 Level 4 Est. Patient 07:49:20 BLOCK SEALER Jonel Hemphill MD [facility] Skilled CPT-75902 Level 3 Est. Patient 08:28:27 BLOCK SEALER Jonel Hemphill MD [facility] Procedures Code Procedure Name Date Entry Date Standard Description CPT-G0438 Initial Annual Wellness Exam 09:32:09 BLOCK SEALER CPT-61629 Level 3 Intermediate 17:57:17 BLOCK SEALER CPT-82198 Level 3 Intermediate 21:14:15 BLOCK SEALER CPT-75552 Level 3 Intermediate 15:38:24 CDT CPT-24567 Level 3 Intermediate 08:18:30 CDT CPT-75921 Level 3 Intermediate 19:03:14 CDT CPT-59519 Level 3 Intermediate 17:42:11 CDT CPT-42062 Level 3 Intermediate 16:04:10 CDT CPT-52357 Level 3 Intermediate 19:38:15 BLOCK SEALER CPT-35694 Level 3 Intermediate 19:28:48 BLOCK SEALER CPT-91174 Level 3 Intermediate 18:02:20 BLOCK SEALER CPT-27652 Level 3 Intermediate 15:02:14 BLOCK SEALER CPT-97719 Level 3 Intermediate 12:25:37 CDT CPT-27959 Level 3 Intermediate 12:48:39 CDT CPT-85786 Level 3 Intermediate 17:39:14 CDT CPT-55222 Level 3 Intermediate 13:32:58 CDT CPT-03661 Level 3 Intermediate 17:43:43 CDT CPT-27787 Level 3 Intermediate 12:03:33 BLOCK SEALER CPT-91262 Level 3 Intermediate 18:47:28 BLOCK SEALER CPT-64956 Level 3 Intermediate 17:35:26 BLOCK SEALER CPT-92940 Level 3 Intermediate 18:44:49 BLOCK SEALER CPT-07407 Level 3 Intermediate 18:17:33 CDT CPT-28404 Level 3 Intermediate 09:25:33 CDT CPT-67895 Level 3 Intermediate 19:11:57 CDT CPT-25062 Level 3 Intermediate 09:25:52 CDT CPT-34440 Level 3 Intermediate 14:23:59 CDT CPT-89682 Level 3 Intermediate 12:09:43 CDT CPT-95631 Level 3 Intermediate 09:37:40 CDT CPT-47281 Level 3 Intermediate 18:23:02 CDT CPT-95064 Level 3 Intermediate 14:09:06 CDT CPT-47190 Level 3 Intermediate 12:43:27 BLOCK SEALER CPT-83647 Postop F/U Visit 14:10:15 BLOCK SEALER CPT-21801 [facility] 17:07:14 BLOCK SEALER CPT-67129 Level 3 Intermediate 16:14:37 BLOCK SEALER CPT-34719 Port a cath flush 11:47:42 CDT CPT-21275 Port a cath flush 08:29:49 CDT CPT-OV Office Visit 14:27:58 BLOCK SEALER
--- OUTSIDE RECORDS SUMMARY | 2016-08-07 11:03 | XMS REPORT | Clinical Summary ---
Author Author Admin, KARLAE Organization [facility] Address Unknown Phone Unavailable Allergies, Adverse 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, HAM PUMPER V58.69 Resolved Jonel Hemphill MD Long-term (current) [...] Coronary atherosclerosis of unspecified type of vessel, [place] or graft FH DIABETES V18.0 Resolved Jonel [...] Coronary atherosclerosis of unspecified type of vessel, [place] or graft CONSTIPATION 564.00 Resolved Jonel Hemphill [...] of the body Cellulitis, leg, right 682.6 Active Jonel Hemphill MD Cellulitis and abscess of leg, except foot Flank pain, right 789.09 Active Jonel Hemphill MD Abdominal pain, other specified site; multiple sites 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 USE, HAM PUMPER ICD-V58.69 Inactive Jonel Hemphill MD DIABETES, TYPE [...] Inactive Jonel Hemphill MD 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 IS UNABLE TO SWALLOW GLUCAGON HCL (RDNA) 67129301458 No Longer Active Tova Perez Active [facility] MILK OF MAGNESIA 1200 MG/15ML SUSP 30 ml daily for constipation MAGNESIUM HYDROXIDE 42188579256 No Longer Active Tova Perez Active IMDUR 120 MG [id number] 1 qd ISOSORBIDE MONONITRATE 89476827349 No Longer Active Tova Perez Active METFORMIN HCL 500 MG TABS 1 tablet by mouth twice daily METFORMIN HCL 45157068218 Active Tova Perez Active SULFAMETHOXAZOLE-TMP DS 800-160 MG TABS 1 TAB PO BID SULFAMETHOXAZOLE-TRIMETHOPRIM 52343135890 Active Tova Perez Active PHENYTOIN 50 MG CHEW 1 TAB PO BID PHENYTOIN 86472428182 Active Tova Perez Active MECLIZINE HCL 25 MG CHEW TAB 1 four times a day as needed for dizziness 02/21 MECLIZINE HCL 89248364238 Active Tova Perez Active GABAPENTIN 300 MG CAPS 1 CAP PO TID GABAPENTIN 90246891935 Active Tova Perez Active NEURONTIN 400 MG CAPS Take one by mouth 3 times daily, morning, afternoon and evening.] GABAPENTIN 56506493866 No Longer Active Tova Perez Active AMBIEN 10 MG TAB 1 tab by mouth at bedtime as needed for sleep ZOLPIDEM TARTRATE 53054156093 Active Jonel Hemphill MD Active POTASSIUM CHLORIDE CHELA ER 20 MEQ CR-TABS 1 tab PO daily POTASSIUM CHLORIDE CHELA CR 71706117599 Active Jonel Hemphill MD Active ANTIVERT 25 MG TABS 1 q 6 hrs prn MECLIZINE HCL 36176041141 No Longer Active Jonel Hemphill MD Active CLONIDINE HCL 0.2 MG TABS 1 q 8 hrs as needed -greater than 160-htn CLONIDINE HCL 29725454396 No Longer Active Jonel Hemphill MD Active AMBIEN 10 MG TABS 1 q hs prn ZOLPIDEM TARTRATE 38144222383 No Longer Active Jonel Hemphill MD Active GNP THERAPEUTIC-M TABS 1 qd MULTIPLE VITAMINS- MINERALS 73047839898 No Longer Active Jonel Hemphill MD Active METOPROLOL TARTRATE 50 MG TABS 1 bid METOPROLOL TARTRATE 55704728359 No Longer Active Jonel Hemphill MD Active METFORMIN HCL 500 MG TABS 1 bod with food METFORMIN HCL 29789312352 No Longer Active Jonel Hemphill MD Active LISINOPRIL 40 MG TABS 1 qd LISINOPRIL 26167455956 No Longer Active Jonel Hemphill MD Active HYDROCHLOROTHIAZIDE 25 MG TABS 1 qd HYDROCHLOROTHIAZIDE 10854817717 No Longer Active Jonel Hemphill MD Active DURAGESIC-25 25 MCG/HR PT72 place 1 patch on the skin q72hrs for pain FENTANYL 74757822868 No Longer Active Jonel Hemphill MD Active FENTANYL 75 MCG/HR PT72 place 1 patch on skin q72hrs fr pain 2012 FENTANYL 96379790042 No Longer Active Jonel Hemphill MD Active LASIX 20 MG TABS 1 tab PO q morning FUROSEMIDE 40148783359 Active Jonel Hemphill MD Active FUROSEMIDE 40 MG TABS 1 q am FUROSEMIDE 67325925368 No Longer Active Jonel eHmphill MD Active HEPARIN (PORCINE) LOCK FLUSH 100 UNIT/ML SOLN Flush port a cath monthly every three week on with Heparin and NS HEPARIN LOCK FLUSH 05392385708 Active Jonel Hemphill MD Active FENTANYL 100 MCG/HR PT72 Apply every 3 days FENTANYL 09176665152 Active Jonel Hemphill MD Active FENTANYL 25 MCG/HR PT72 Apply to clean skin and change every 72 hours. 07/03 FENTANYL 52724447670 No Longer Active Jonel Hemphill MD Active FENTANYL 50 MCG/HR PT72 place 1 patch on skin q72 hours FENTANYL 77382799545 No Longer Active Mayco Dacostajohnie SCHMID Active HYDROCODONE-ACETAMINOPHEN 7.5-325 MG TABS 1 q 6 hrs prn HYDROCODONE-ACETAMINOPHEN 89886449518 Active Jonel Hemphill MD Active ATIVAN 0.5 MG TABS Take 1 tablet 2x daily LORAZEPAM 28930224952 Active Jonel Hemphill MD Active CELEXA 20 MG TABS Take 1 tablet 1x daily CITALOPRAM HYDROBROMIDE 04556762095 Active Jonel Hemphill MD Active MIRALAX POWD 17 gms in 4 oz water or juice daily POLYETHYLENE GLYCOL 3350 60992322138 Active Rubin Pierre MD Active DURAGESIC-12 12 MCG/HR PT72 APPLY PATCH TO SKIN AND CHANGE EVERY 72 HOURS, ROTATE SITES FENTANYL 42478940657 No Longer Active Fozia HERNANDEZ Active [facility] VITAMIN C 500 MG TABS 1 po daily ASCORBIC ACID 74631956525 Active Mahogany Hailey Active FUROSEMIDE 20 MG TABS 1 qd FUROSEMIDE 39562946542 No Longer Active Mahogany Hailey Active ADULT ASPIRIN EC LOW STRENGTH 81 MG TBEC 1 qd ASPIRIN 94443723607 Active MARY Perez Active DILANTIN 100 MG CAPS 3 cap tid PHENYTOIN SODIUM EXTENDED 79731057864 Active MARY Perez Active BUDEPRION SR 150 MG [id number] 1 bid BUPROPION HCL 45687126380 Active MARY Perez Active ALLOPURINOL 300 MG TABS 1 qd ALLOPURINOL 97266677521 Active MARY Perez Active COZAAR 100 MG TABS 1 qd LOSARTAN POTASSIUM 61679466716 Active MARY Perez Active FUROSEMIDE 20 MG TABS 1 qd FUROSEMIDE 20 MG TABS 765292 FUROSEMIDE Inactive DURAGESIC-12 12 MCG/HR PT72 APPLY PATCH TO SKIN AND CHANGE EVERY 72 HOURS, ROTATE SITES DURAGESIC-12 12 MCG/HR PT72 017179 FENTANYL Inactive FENTANYL 50 MCG/HR PT72 place 1 patch on skin q72 hours FENTANYL 50 MCG/HR PT72 664866 FENTANYL Inactive FUROSEMIDE 40 MG TABS 1 q am FUROSEMIDE 40 MG TABS 028914 FUROSEMIDE Inactive FENTANYL 75 MCG/HR PT72 place 1 patch on skin q72hrs fr pain 2012 FENTANYL 75 MCG/HR PT72 374917 FENTANYL Inactive DURAGESIC-25 25 MCG/HR PT72 place 1 patch on the skin q72hrs for pain DURAGESIC-25 25 MCG/HR PT72 464488 FENTANYL Inactive HYDROCHLOROTHIAZIDE 25 MG TABS 1 qd HYDROCHLOROTHIAZIDE 25 MG TABS 900477 HYDROCHLOROTHIAZIDE Inactive LISINOPRIL 40 MG TABS 1 qd LISINOPRIL 40 MG TABS 487978 LISINOPRIL Inactive METFORMIN HCL 500 MG TABS 1 bod with food METFORMIN HCL 500 MG TABS 789026 METFORMIN HCL Inactive METOPROLOL TARTRATE 50 MG TABS 1 bid METOPROLOL TARTRATE 50 MG TABS 877996 METOPROLOL TARTRATE Inactive GNP THERAPEUTIC-M TABS 1 qd GNP THERAPEUTIC-M TABS MULTIPLE VITAMINS-MINERALS Inactive AMBIEN 10 MG TABS 1 q hs prn AMBIEN 10 MG TABS 523490 ZOLPIDEM TARTRATE Inactive CLONIDINE HCL 0.2 MG TABS 1 q 8 hrs as needed -greater than 160-htn CLONIDINE HCL 0.2 MG TABS 616077 CLONIDINE HCL Inactive ANTIVERT 25 MG TABS 1 q 6 hrs prn ANTIVERT 25 MG TABS MECLIZINE HCL Inactive NEURONTIN 400 MG CAPS Take one by mouth 3 times daily, morning, afternoon and evening.] NEURONTIN 400 MG CAPS 749110 GABAPENTIN Inactive IMDUR 120 MG [id number] 1 qd IMDUR 120 MG [id number] ISOSORBIDE MONONITRATE Inactive [facility] MILK OF MAGNESIA [...] for arthritis pain MOBIC 15 MG TABS 909023 MELOXICAM Inactive LEVEMIR 100 UNIT/ML SOLN 5 units sub-q at bedtime LEVEMIR 100 UNIT/ML SOLN INSULIN DETEMIR Inactive FENTANYL 25 MCG/HR PT72 Apply to clean skin and change every 72 hours. 07/03 FENTANYL 25 MCG/HR PT72 802306 FENTANYL Inactive Advance Directives Directive Description Start Date ADVANCE DIRECTIVE Immunizations Vaccine Administration Date Value Standard Description influenza immunization (Flu Vax) has been administered Influenza - Unspecified Formulation [CVX88] influenza virus vaccine, unspecified formulation pneumococcal immunization administered Pneumovax 23 [CVX33] pneumococcal polysaccharide vaccine, 23 valent Vital Signs Date Name Value Unit Range Description blood pressure, diastolic - 8462-4 847 mm[Hg] [...] E&M - 3141-9 373 [lb_av] Weight Measured Diagnostic Results Date Name Value Unit Range Description Clinical Lists Update: CBC W/ DIFF - [...] Acid - Chemistry sodium, serum 141 mmol/L 030-068 6460/05/09 potassium, serum 3.9 mmol/L 3.5-5.2 chloride, serum [...] dipstick Negative Negative sodium, serum 140 mmol/L 042-622 6845/02/18 potassium, serum 3.8 mmol/L 3.5-5.2 chloride, serum [...] strip Negative Negative bilirubin, urine Negative Negative Encounters Code Encounter Date Provider Facility CPT-51209 Level 3 Est. Patient 18:04:07 CDT Jonel Hemphill MD [facility] CPT-09089 Level 3 Est. Patient 17:18:03 CDT Jonel Hemphill MD [facility]-78912 Level 3 Est. Patient 21:58:03 COMPANY PILOT Jonel Hemphill MD [facility]-49259 Level 4 Est. Patient 18:03:14 CDT Jonel Yeager [facility]-48783 Level 4 Est. Patient 13:24:53 CDT Jonel Yeager [facility]-47992 Level 4 Est. Patient 09:15:44 CDT Jonel Yeager [facility]-83171 Level 4 Est. Patient 19:16:01 CDT Jonel Yeager [facility] CPT-73280 Level 4 Est. Patient 11:25:16 CDT Jonel Hemphill MD [facility] CPT-13972 Level 4 Est. Patient 09:00:40 CDT Jonel Yeager [facility]-68184 Level 4 Est. Patient 14:53:58 CDT Jonel Hemphill MD [facility] CPT-10581 Level 4 Est. Patient 22:59:01 CDT Jonel Hemphill MD [facility]-74817 Level 4 Est. Patient 09:29:57 CDT Jonel Hemphill MD [facility]-19940 Level 4 Est. Patient 12:35:53 COMPANY PILOT Jonel Hemphill MD [facility]-29564 Level 4 Est. Patient 22:36:09 COMPANY PILOT Jonel Hemphill MD [facility]-87329 Level 2 Est. Patient 15:14:15 COMPANY PILOT Mayco Shah APRN [facility] CPT-93727 Level 4 Est. Patient 10:36:22 COMPANY PILOT Jonel Hemphill MD [facility]-07076 Level 4 Est. Patient 22:01:13 COMPANY PILOT Jonel Hemphill MD [facility]-88484 Level 3 Est. Patient 21:50:37 COMPANY PILOT Jonel Hemphill MD [facility]-84661 Level 4 Est. Patient 15:02:43 CDT Rubin Pierre MD [facility] CPT-95932 Level 4 Est. Patient 14:27:35 CDT Jonel Hemphill MD [facility]-52084 Level 4 Est. Patient 12:41:17 CDT Jonel Hemphill MD [facility]-79607 Level 4 Est. Patient 16:18:55 CDT Jonel Hemphill MD [facility]-33121 Level 4 Est. Patient 17:58:05 CDT Jonel Hemphill MD [facility]-32675 Level 4 Est. Patient 22:10:06 CDT Jonel Hemphill MD [facility]-79374 Level 4 Est. Patient 13:22:09 CDT Jonel Hemphill MD [facility]-30423 Level 4 Est. Patient 22:52:17 COMPANY PILOT Jonel Hemphill MD [facility]-95401 Level 3 Est. Patient 22:34:10 COMPANY PILOT Jonel Hemphill MD [facility] CPT-23220 Level 4 Est. Patient 07:49:20 COMPANY PILOT Jonel Hemphill MD [facility] Skilled CPT-97245 Level 3 Est. Patient 08:28:27 COMPANY PILOT Jonel Hemphill MD [facility] Procedures Code Procedure Name Date Entry Date Standard Description CPT-42447 [facility] Jail 09:25:52 CDT CPT-21641 Level 3 Jail 14:23:59 CDT CPT-58603 Level 3 Jail 12:09:43 CDT CPT-35972 Level 3 Jail 09:37:40 CDT CPT-54695 Level 3 Jail 18:23:02 CDT CPT-55957 Level 3 Jail 14:09:06 CDT CPT-75320 Level 3 Jail 12:43:27 COMPANY PILOT CPT-64667 Postop F/U Visit 14:10:15 COMPANY PILOT CPT-52777 [facility] 17:07:14 COMPANY PILOT CPT-40562 Level 3 Jail 16:14:37 COMPANY PILOT CPT-64946 Port a cath flush 11:47:42 CDT CPT-26426 Port a cath flush 08:29:49 CDT CPT-OV Office Visit 14:27:58 COMPANY PILOT
--- OUTSIDE RECORDS SUMMARY | 2016-08-07 11:05 | XMS REPORT | Clinical Summary ---
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 V58.69 Resolved Jonel Hemphill MD Long-term [...] Coronary atherosclerosis of unspecified type of vessel, [place] or graft FH DIABETES V18.0 Resolved Jonel [...] Coronary atherosclerosis of unspecified type of vessel, [place] or graft CONSTIPATION 564.00 Resolved Jonel Hemphill [...] Obstructive sleep apnea (adult) (pediatric) 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 USE, YARD SWITCH OPERATOR ICD-V58.69 Inactive Jonel Hemphill MD CORONARY HEART DISEASE [...] ICD-V58.81 Inactive Jonel Hemphill MD DEHYDRATION ICD-276.51 Malina Hemphill MD RENAL FAILURE, ACUTE ICD-584.9 Inactive Jonel Hemphill MD HYPERKALEMIA ICD-276.7 Inactive Jonel Hemphill MD DIABETES, TYPE 2 ICD-250.00 Malina Hemphill MD 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 Malina [...] Generic Name NDC Status Provider Patient Instruction MIRALAX POWD 17 gms in 4 oz water or juice daily POLYETHYLENE GLYCOL 3350 [id number] Active Jonel Hemphill MD Active CVS MELATONIN 3 MG ORAL TABS 2 tabs at hs MELATONIN 58789955236 Active Jonel Hemphill MD Active MAGNESIUM GLUCONATE 500 MG ORAL TABS 1 tab twice daily MAGNESIUM GLUCONATE 63523410329 Active Jonel Hemphill MD Active OMEPRAZOLE 20 MG CPDR 1 tablet by mouth daily OMEPRAZOLE 73343232312 Active Jonel Hemphill MD Active DIGOXIN 125 MCG ORAL TABS 1 daily DIGOXIN 74283479862 Active Jonel Hemphill MD Active DILTIAZEM CD 240 MG ORAL [id number] 1 daily DILTIAZEM HCL COATED BEADS 93594638298 Active Jonel Hemphill MD Active NOVOLOG 100 UNIT/ML SC SOLN 70-140=0U 141-180=2 U 181-220=4U 221-260=6U 261- 300=8U 301-340=10U 034=667=77Q 381-400=14U INSULIN ASPART 46722919587 Active Jonel Hemphill MD Active ACETAMINOPHEN 325 MG ORAL TABS 1 tab by mouth every 4 hours as needed ACETAMINOPHEN 45133314938 Active Jonel Hemphill MD Active FENTANYL 12 MCG/HR PT72 Apply to clean, dry skin and change every 72 hours FENTANYL 44489232143 No Longer Active Jonel Hemphill MD Active PHENYTOIN 50 MG CHEW 1 TAB PO BID PHENYTOIN 16657135615 No Longer Active Jonel Hemphill MD Active NORCO 5-325 MG TABS 1-2 TAB Q 6 HRS PRN HYDROCODONE- ACETAMINOPHEN 98877523908 No Longer Active Jonle Hemphill MD Active MULTIVITAMINS CAPS 1 DAILY MULTIPLE VITAMIN 67185362992 No Longer Active Jonel Hemphill MD Active BUPROPION HCL ER (SR) 150 MG [id number] 1 twice a day for depression BUPROPION HCL 99471168317 No Longer Active Joenl Hemphill MD Active LISINOPRIL 20 MG TABS 1 tablet by mouth daily LISINOPRIL 21760619963 Active Jonel Hemphill MD Active ULORIC 40 MG ORAL TABS 1 daily for gout. FEBUXOSTAT 70569278750 No Longer Active Jonel Hemphill MD Active CELEXA 20 MG TABS 1 tablet by mouth daily CITALOPRAM HYDROBROMIDE 48679493671 Active Marleni Raida Active ZOFRAN 4 MG TABS 1 po q6hr PRN Nausea ONDANSETRON HCL 14843740193 Active Jonel Hemphill MD Active XARELTO 20 MG ORAL TABS 1 daily RIVAROXABAN 42763367540 Active Jonel Hemphill MD Active JANUVIA 100 MG ORAL TABS 2 tabs daily SITAGLIPTIN PHOSPHATE 59895819268 Active Jonel Hemphill MD Active CELEXA 20 MG TABS Take 1 tablet 1x daily CITALOPRAM HYDROBROMIDE 77883778382 No Longer Active Jonel Hemphill MD Active ATIVAN 0.5 MG TABS Take 1 tablet 2x daily PRN LORAZEPAM 95966026526 No Longer Active Jonel Hemphill MD Active FUROSEMIDE 80 MG ORAL TABS 1 daily FUROSEMIDE 97681137467 Active Jonel Hemphill MD Active MECLIZINE HCL 25 MG CHEW TAB 1 four times a day as needed for dizziness 02/21 MECLIZINE HCL 42416213778 No Longer Active Jonel Hemphill MD Active ZYLOPRIM 300 MG TAB 1 BY MOUTH DAILY ALLOPURINOL 71434968230 No Longer Active Jonel Hemphill MD Active METOPROLOL TARTRATE 50 MG ORAL TABS 1 TAB BY MOUTH TWICE DAILY METOPROLOL TARTRATE 20927226391 No Longer Active Jonel Hemphill MD Active GABAPENTIN 400 MG ORAL CAPS 1 TAB BY MOUTH THREE TIMES DAILY 2015 GABAPENTIN 70190093135 No Longer Active Jonel Hemphill MD Active HYDROCODONE-ACETAMINOPHEN 7.5-325 MG TABS 1 TAB PO Q 6 HRS PRN HYDROCODONE-ACETAMINOPHEN 67056248218 Active Jonel Hemphill MD Active METFORMIN HCL 1000 MG TABS 1 tablet by mouth twice daily METFORMIN HCL 78455146684 Active Marleni Romero Active KLOR-CON 20 MEQ ORAL PACK 1 BY MOUTH DAILY POTASSIUM CHLORIDE 12931437758 Active Marleni Romero Active A+D FIRST AID EXT OINT APPLY OINTMENT AND RUFINO WRAPS TO LOWER EXTEREMETIES DAILY SKIN PROTECTANTS, MISC. 15616679137 Active Jonel Hemphill MD Active NYSTATIN 747947 UNIT/GM EXT OINT APPLY PRN TID TO GAULDING/RASH IN ABDOMINAL FOLDS NYSTATIN 61236140750 Active Jonel Hemphill MD Active GABAPENTIN 300 MG CAPS 1 CAP PO TID GABAPENTIN 11398593354 No Longer Active Jonel Hemphill MD Active DILANTIN 100 MG ORAL CAPS 1 THREE TIMES DAILY FOR SEIZURES PHENYTOIN SODIUM EXTENDED 55496963458 Active Marleni Romero Active CPAP APPLY AT HS CPAP Active Jonel Hemphill MD Active HYDROCODONE-ACETAMINOPHEN 7.5-325 MG TABS 1 q 6 hrs prn HYDROCODONE-ACETAMINOPHEN 81291835137 No Longer Active Jonel Hemphill MD Active DILANTIN 100 MG CAPS 3 cap tid PHENYTOIN SODIUM EXTENDED 09353988512 No Longer Active Jonel Hemphill MD Active BUDEPRION SR 150 MG [id number] 1 bid BUPROPION HCL 92939999589 No Longer Active Jonel Hemphill MD Active ALLOPURINOL 300 MG TABS 1 qd ALLOPURINOL 46227563755 No Longer Active Jonel Hemphill MD Active COZAAR 100 MG TABS 1 qd LOSARTAN POTASSIUM 35183743115 No Longer Active Jonel Hemphill MD Active CVS VITAMIN C 500 MG TABS 1 po daily ASCORBIC ACID 91278723806 No Longer Active Jonel Hemphlil MD Active MIRALAX POWD 17 gms in 4 oz water or juice daily POLYETHYLENE GLYCOL 3350 25900702438 No Longer Active oJnel Hemphill MD Active POTASSIUM CHLORIDE CHELA ER 20 MEQ CR-TABS 1 tab PO daily POTASSIUM CHLORIDE CHELA CR 54400190252 No Longer Active Jonel Hemphill MD Active AMBIEN 10 MG TAB 1 tab by mouth at bedtime as needed for sleep ZOLPIDEM TARTRATE 20459862448 No Longer Active Jonel Hemphill MD Active SULFAMETHOXAZOLE-TMP DS 800-160 MG TABS 1 TAB PO BID SULFAMETHOXAZOLE-TRIMETHOPRIM 65012222028 No Longer Active Jonel Hemphill MD Active LEVEMIR 100 UNIT/ML SOLN 5 units sub-q at bedtime INSULIN DETEMIR 79716170389 No Longer Active Tova Perez Active MOBIC 15 MG TABS 1 tab PO daily for arthritis pain MELOXICAM 78149223014 No Longer Active Tova Perez Active GLUCAGEN 1 MG SOLR INJECT 1MG IM IF BS LESS THAN 60 & RES. IS UNABLE TO SWALLOW GLUCAGON HCL (RDNA) 62899340942 No Longer Active Tova Chris Active CVS MILK OF MAGNESIA 1200 MG/15ML SUSP 30 ml daily for constipation MAGNESIUM HYDROXIDE 52489610640 No Longer Active Tova Chris Active IMDUR 120 MG [id number] 1 qd ISOSORBIDE MONONITRATE 21102999331 No Longer Active Tova Chris Active NEURONTIN 400 MG CAPS Take one by mouth 3 times daily, morning, afternoon and evening.] GABAPENTIN 64069485798 No Longer Active Tova Perez Active ANTIVERT 25 MG TABS 1 q 6 hrs prn MECLIZINE HCL 13815665799 No Longer Active Jonel Hemphill MD Active CLONIDINE HCL 0.2 MG TABS 1 q 8 hrs as needed -greater than 160-htn CLONIDINE HCL 22747807016 No Longer Active Jonel Hemphill MD Active AMBIEN 10 MG TABS 1 q hs prn ZOLPIDEM TARTRATE 95832617953 No Longer Active Jonel Hemphill MD Active GNP THERAPEUTIC-M TABS 1 qd MULTIPLE VITAMINS- MINERALS 87932320241 No Longer Active Jonel Hemphill MD Active METOPROLOL TARTRATE 50 MG TABS 1 bid METOPROLOL TARTRATE 31800370144 No Longer Active Jonel Hemphill MD Active METFORMIN HCL 500 MG TABS 1 bod with food METFORMIN HCL 59881934482 No Longer Active Jonel Hemphill MD Active LISINOPRIL 40 MG TABS 1 qd LISINOPRIL 98183315442 No Longer Active Jonel Hemphill MD Active HYDROCHLOROTHIAZIDE 25 MG TABS 1 qd HYDROCHLOROTHIAZIDE 86861836115 No Longer Active Jonel Hemphill MD Active DURAGESIC-25 25 MCG/HR PT72 place 1 patch on the skin q72hrs for pain FENTANYL 27761831629 No Longer Active Jonel Hemphill MD Active FENTANYL 75 MCG/HR PT72 place 1 patch on skin q72hrs fr pain 2012 FENTANYL 42342818354 No Longer Active Jonel Hemphill MD Active FUROSEMIDE 40 MG TABS 1 q am FUROSEMIDE 39614369589 No Longer Active Jonel Hemphill MD Active HEPARIN (PORCINE) LOCK FLUSH 100 UNIT/ML SOLN Flush port a cath monthly every three week on with Heparin and NS HEPARIN LOCK FLUSH 10915828684 Active Jonel Hemphill MD Active FENTANYL 100 MCG/HR PT72 Apply every 3 days FENTANYL 81292853148 Active Jonel Hemphill MD Active FENTANYL 25 MCG/HR PT72 Apply to clean skin and change every 72 hours. 07/03 FENTANYL 05259650855 No Longer Active Jonel Hemphill MD Active FENTANYL 50 MCG/HR PT72 place 1 patch on skin q72 hours FENTANYL 57310785899 No Longer Active Mayco Shah APRN Active DURAGESIC-12 12 MCG/HR PT72 APPLY PATCH TO SKIN AND CHANGE EVERY 72 HOURS, ROTATE SITES FENTANYL 86661612380 No Longer Active Fozia HERNANDEZ Active FUROSEMIDE 20 MG TABS 1 qd FUROSEMIDE 51409456325 No Longer Active Mahogany [place] Active ADULT ASPIRIN EC LOW STRENGTH 81 MG TBEC 1 qd ASPIRIN 42432159156 Active MARY Perez Active FUROSEMIDE 20 MG TABS 1 qd FUROSEMIDE 20 MG TABS 274415 FUROSEMIDE Inactive DURAGESIC-12 12 MCG/HR PT72 APPLY PATCH TO SKIN AND CHANGE EVERY 72 HOURS, ROTATE SITES DURAGESIC-12 12 MCG/HR PT72 023765 FENTANYL Inactive FENTANYL 50 MCG/HR PT72 place 1 patch on skin q72 hours FENTANYL 50 MCG/HR PT72 230337 FENTANYL Inactive FUROSEMIDE 40 MG TABS 1 q am FUROSEMIDE 40 MG TABS 495264 FUROSEMIDE Inactive FENTANYL 75 MCG/HR PT72 place 1 patch on skin q72hrs fr pain 2012 FENTANYL 75 MCG/HR PT72 702678 FENTANYL Inactive DURAGESIC-25 25 MCG/HR PT72 place 1 patch on the skin q72hrs for pain DURAGESIC-25 25 MCG/HR PT72 796409 FENTANYL Inactive HYDROCHLOROTHIAZIDE 25 MG TABS 1 qd HYDROCHLOROTHIAZIDE 25 MG TABS 325166 HYDROCHLOROTHIAZIDE Inactive LISINOPRIL 40 MG TABS 1 qd LISINOPRIL 40 MG TABS 130646 LISINOPRIL Inactive METFORMIN HCL 500 MG TABS 1 bod with food METFORMIN HCL 500 MG TABS 531049 METFORMIN HCL Inactive METOPROLOL TARTRATE 50 MG TABS 1 bid METOPROLOL TARTRATE 50 MG TABS 345901 METOPROLOL TARTRATE Inactive GNP THERAPEUTIC-M TABS 1 qd GNP THERAPEUTIC-M TABS MULTIPLE VITAMINS-MINERALS Inactive AMBIEN 10 MG TABS 1 q hs prn AMBIEN 10 MG TABS 717246 ZOLPIDEM TARTRATE Inactive CLONIDINE HCL 0.2 MG TABS 1 q 8 hrs as needed -greater than 160-htn CLONIDINE HCL 0.2 MG TABS 399958 CLONIDINE HCL Inactive ANTIVERT 25 MG TABS 1 q 6 hrs prn ANTIVERT 25 MG TABS MECLIZINE HCL Inactive NEURONTIN 400 MG CAPS Take one by mouth 3 times daily, morning, afternoon and evening.] NEURONTIN 400 MG CAPS 840851 GABAPENTIN Inactive IMDUR 120 MG [id number] 1 qd IMDUR 120 MG [id number] ISOSORBIDE MONONITRATE Inactive CVS MILK OF MAGNESIA [...] for arthritis pain MOBIC 15 MG TABS 004039 MELOXICAM Inactive LEVEMIR 100 UNIT/ML SOLN 5 units sub-q at bedtime LEVEMIR 100 UNIT/ML SOLN INSULIN DETEMIR Inactive SULFAMETHOXAZOLE-TMP DS 800-160 MG TABS 1 TAB PO BID SULFAMETHOXAZOLE-TMP DS 800-160 MG TABS 749370 SULFAMETHOXAZOLE-TRIMETHOPRIM Inactive AMBIEN 10 MG TAB 1 tab by mouth at bedtime as needed for sleep AMBIEN 10 MG TAB 237252 ZOLPIDEM TARTRATE Inactive POTASSIUM CHLORIDE CHELA ER 20 MEQ CR-TABS 1 tab PO daily POTASSIUM CHLORIDE CHELA ER 20 MEQ CR-TABS POTASSIUM CHLORIDE CHELA CR Inactive MIRALAX POWD 17 gms in 4 oz water or juice daily MIRALAX POWD 417040 POLYETHYLENE GLYCOL 3350 Inactive CVS VITAMIN C 500 MG TABS 1 po daily CVS VITAMIN C 500 MG TABS 767031 ASCORBIC ACID Inactive COZAAR 100 MG TABS 1 qd COZAAR 100 MG TABS 122826 LOSARTAN POTASSIUM Inactive ALLOPURINOL 300 MG TABS 1 qd ALLOPURINOL 300 MG TABS 982621 ALLOPURINOL Inactive BUDEPRION SR 150 MG [id number] 1 bid BUDEPRION SR 150 MG [id number] BUPROPION HCL Inactive DILANTIN 100 MG CAPS 3 cap tid DILANTIN 100 MG CAPS 572744 PHENYTOIN SODIUM EXTENDED Inactive HYDROCODONE-ACETAMINOPHEN 7.5-325 MG TABS 1 q 6 hrs prn HYDROCODONE-ACETAMINOPHEN 7.5-325 MG TABS 214754 HYDROCODONE- ACETAMINOPHEN Inactive GABAPENTIN 300 MG CAPS 1 CAP PO TID GABAPENTIN 300 MG CAPS 738519 GABAPENTIN Inactive GABAPENTIN 400 MG ORAL CAPS 1 TAB BY MOUTH THREE TIMES DAILY 2015 GABAPENTIN 400 MG ORAL CAPS 834909 GABAPENTIN Inactive METOPROLOL TARTRATE 50 MG ORAL TABS 1 TAB BY MOUTH TWICE DAILY METOPROLOL TARTRATE 50 MG ORAL TABS 526926 METOPROLOL TARTRATE Inactive ZYLOPRIM 300 MG TAB 1 BY MOUTH DAILY ZYLOPRIM 300 MG TAB 312785 ALLOPURINOL Inactive MECLIZINE HCL 25 MG CHEW TAB 1 four times a day as needed for dizziness 02/21 MECLIZINE HCL 25 MG CHEW TAB 945380 MECLIZINE HCL Inactive ATIVAN 0.5 MG TABS Take 1 tablet 2x daily PRN ATIVAN 0.5 MG TABS 342056 LORAZEPAM Inactive CELEXA 20 MG TABS Take 1 tablet 1x daily CELEXA 20 MG TABS 634613 CITALOPRAM HYDROBROMIDE Inactive ULORIC 40 MG ORAL TABS 1 daily for gout. ULORIC 40 MG ORAL TABS FEBUXOSTAT Inactive BUPROPION HCL ER (SR) 150 MG [id number] 1 twice a day for depression BUPROPION HCL ER (SR) 150 MG [id number] BUPROPION HCL Inactive MULTIVITAMINS CAPS 1 DAILY MULTIVITAMINS CAPS MULTIPLE VITAMIN Inactive NORCO 5-325 MG TABS 1-2 TAB Q 6 HRS PRN NORCO 5-325 MG TABS 865027 HYDROCODONE-ACETAMINOPHEN Inactive PHENYTOIN 50 MG CHEW 1 TAB PO BID PHENYTOIN 50 MG CHEW 6435082 PHENYTOIN Inactive FENTANYL 12 MCG/HR PT72 Apply to clean, dry skin and change every 72 hours FENTANYL 12 MCG/HR PT72 807739 FENTANYL Inactive FENTANYL 25 MCG/HR PT72 Apply to clean skin and change every 72 hours. 07/03 FENTANYL 25 MCG/HR PT72 713534 FENTANYL Inactive Advance Directives Directive Description Start Date ADVANCE DIRECTIVE Immunizations Vaccine Administration Date Value Standard Description influenza immunization (Flu Vax) has been administered Influenza - Unspecified Formulation [CVX88] influenza virus vaccine, unspecified formulation pneumococcal immunization administered Pneumovax 23 [CVX33] pneumococcal polysaccharide vaccine, 23 valent Vital Signs Date Name Value Unit Range Description blood pressure, diastolic - 8462-4 77 mm[Hg] [...] E&M - 3141-9 403 [lb_av] Weight Measured Diagnostic Results Date Name [...] glucose 239 mg/dL creatinine, serum 1.17 mg/dL Encounters Code Encounter Date Provider Facility CPT-11466 Level 3 Est. Patient 19:05:03 CDT Jonel Hemphill MD [facility] CPT-76813 Level 3 Est. Patient 17:30:47 CDT Kevin Link MD [facility] CPT-73799 Level 3 Est. Patient 18:04:07 CDT Jonel Hemphill MD [facility] CPT-07433 Level 3 Est. Patient 17:18:03 CDT Jonel Hemphill MD [facility] CPT-36683 Level 3 Est. Patient 21:58:03 INFORMATION SCIENTIST Jonel Hemphill MD [facility] CPT-95099 Level 4 Est. Patient 18:03:14 CDT Jonel Hemphill MD [facility]-09044 Level 4 Est. Patient 13:24:53 CDT Jonel Hemphill MD [facility]-45376 Level 4 Est. Patient 09:15:44 CDT Jonel Hemphill MD [facility]-73725 Level 4 Est. Patient 19:16:01 CDT Jonel Hemphill MD [facility]-92406 Level 4 Est. Patient 11:25:16 CDT Jonel Hemphill MD [facility]-37376 Level 4 Est. Patient 09:00:40 CDT Jonel Hemphill MD [facility]-35443 Level 4 Est. Patient 14:53:58 CDT Jonel Hemphill MD [facility]-05564 Level 4 Est. Patient 22:59:01 CDT Jonel Hemphill MD [facility]-37586 Level 4 Est. Patient 09:29:57 CDT Jonel Hemphill MD [facility]-41155 Level 4 Est. Patient 12:35:53 INFORMATION SCIENTIST Jonel Hemphill MD [facility]-95895 Level 4 Est. Patient 22:36:09 INFORMATION SCIENTIST Jonel Hemphill MD [facility]-90265 Level 2 Est. Patient 15:14:15 INFORMATION SCIENTIST Mayco Shah APRN [facility] CPT-16545 Level 4 Est. Patient 10:36:22 INFORMATION SCIENTIST Jonel Hemphill MD [facility]-86059 Level 4 Est. Patient 22:01:13 INFORMATION SCIENTIST Jonel Hemphill MD [facility]-71099 Level 3 Est. Patient 21:50:37 INFORMATION SCIENTIST Joenl Hemphill MD [facility] CPT-07375 Level 4 Est. Patient 15:02:43 CDT Rubin Pierre MD [facility] CPT-01828 Level 4 Est. Patient 14:27:35 CDT Jonel Hemphill MD [facility] CPT-86576 Level 4 Est. Patient 12:41:17 CDT Jonel Hemphill MD [facility] CPT-54533 Level 4 Est. Patient 16:18:55 CDT Jonel Hemphill MD [facility] CPT-62382 Level 4 Est. Patient 17:58:05 CDT Jonel Hemphill MD [facility] CPT-62756 Level 4 Est. Patient 22:10:06 CDT Jonel Hemphill MD [facility] CPT-43479 Level 4 Est. Patient 13:22:09 CDT Jonel Hemphill MD [facility] CPT-58209 Level 4 Est. Patient 22:52:17 INFORMATION SCIENTIST Jonel Hemphill MD [facility] CPT-75323 Level 3 Est. Patient 22:34:10 INFORMATION SCIENTIST Jonel Hemphill MD [facility] CPT-45006 Level 4 Est. Patient 07:49:20 INFORMATION SCIENTIST Jonel Hemphill MD [facility] Skilled CPT-17190 Level 3 Est. Patient 08:28:27 INFORMATION SCIENTIST Jonel Hemphill MD [facility] Procedures Code Procedure Name Date Entry Date Standard Description CPT-66460 Level 3 Halfway 15:38:24 CDT CPT-60949 Level 3 Halfway 08:18:30 CDT CPT-37772 Level 3 Halfway 19:03:14 CDT CPT-21892 Level 3 Halfway 17:42:11 CDT CPT-85837 Level 3 Halfway 16:04:10 CDT CPT-65661 Level 3 Halfway 19:38:15 INFORMATION SCIENTIST CPT-15860 Level 3 Halfway 19:28:48 INFORMATION SCIENTIST CPT-71329 Level 3 Halfway 18:02:20 INFORMATION SCIENTIST CPT-17681 Level 3 Halfway 15:02:14 INFORMATION SCIENTIST CPT-62454 Level 3 Halfway 12:25:37 CDT CPT-28894 Level 3 Halfway 12:48:39 CDT CPT-53116 Level 3 Halfway 17:39:14 CDT CPT-57346 Level 3 Halfway 13:32:58 CDT CPT-62008 Level 3 Halfway 17:43:43 CDT CPT-82145 Level 3 Halfway 12:03:33 INFORMATION SCIENTIST CPT-98171 Level 3 Halfway 18:47:28 INFORMATION SCIENTIST CPT-64666 Level 3 Halfway 17:35:26 INFORMATION SCIENTIST CPT-00520 Level 3 Halfway 18:44:49 INFORMATION SCIENTIST CPT-15238 Level 3 Halfway 18:17:33 CDT CPT-03763 Level 3 Halfway 09:25:33 CDT CPT-75243 Level 3 Halfway 19:11:57 CDT CPT-59355 Level 3 Halfway 09:25:52 CDT CPT-88663 Level 3 Halfway 14:23:59 CDT CPT-81905 Level 3 Halfway 12:09:43 CDT CPT-58315 Level 3 Halfway 09:37:40 CDT CPT-87342 Level 3 Halfway 18:23:02 CDT CPT-02034 Level 3 Halfway 14:09:06 CDT CPT-74110 Level 3 Halfway 12:43:27 INFORMATION SCIENTIST CPT-72783 Postop F/U Visit 14:10:15 INFORMATION SCIENTIST CPT-11308 [facility] Head [facility] Neck 17:07:14 INFORMATION SCIENTIST CPT-20146 Level 3 Halfway 16:14:37 INFORMATION SCIENTIST CPT-00600 Port a cath flush 11:47:42 CDT CPT-82510 Port a cath flush 08:29:49 CDT CPT-OV Office Visit 14:27:58 INFORMATION SCIENTIST
--- OUTSIDE RECORDS SUMMARY | 2016-08-07 11:06 | XMS REPORT | Clinical Summary ---
Author Author Admin, QIE Organization [facility] Address Unknown Phone Unavailable Allergies, Adverse Reactions, Alerts Allergy Name Reaction Description Start Date Severity Status Provider PENICILLIN Critical Active Kennebecjaida Giles, RMA Conditions or Problems Problem Name 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, [employer]AGE [employer]ER V58.69 Resolved Jonel Hemphill MD Long-term (current) use of other medications C V A / STROKE 436 Active Gregor Giles, RMA Acute, but ill-defined, cerebrovascular disease C O P D 496 Active Gregor Giles, RMA Chronic airway obstruction, not elsewhere classified DIABETES, TYPE 2 250.00 Resolved Jonel Hemphill MD Diabetes mellitus without mention of complication, type II or unspecified type, not stated as uncontrolled SEIZURE DISORDER 780.39 Active Gregor Giles RMA Other convulsions CORONARY HEART DISEASE 414.00 Resolved Jonel Hemphill MD Coronary atherosclerosis of unspecified type of vessel, [place] or graft FH DIABETES V18.0 Resolved Jonel Hmephill MD Family history of diabetes mellitus FH [...] atherosclerosis of unspecified type of vessel, [place] or graft CONSTIPATION 564.00 Resolved Jonel Hemphill [...] Hemphill MD Spasm of muscle 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 USE, ASSISTED ICD-V58.69 Inactive Jonel Hemphill MD DIABETES, TYPE [...] Hemphill MD CHEST PAIN ICD-786.50 Inactive Jonel Hmephill MD CONSTIPATION ICD-564.00 Inactive Jonel Hemphill MD [...] skin and change every 72 hours FENTANYL 60153290385 Active Jonel Hemphill MD Active MIRALAX POWD 17 gms in 4 oz water or juice daily POLYETHYLENE GLYCOL 3350 25303946906 Active Jonel Hemphill MD Active CVS MELATONIN 3 MG ORAL TABS 2 tabs at hs MELATONIN 95400301601 Active Jonel Hemphill MD Active MAGNESIUM GLUCONATE 500 MG ORAL TABS 1 tab twice daily MAGNESIUM GLUCONATE 32013380044 Active Jonel Hemphill MD Active OMEPRAZOLE 20 MG CPDR 1 tablet by mouth daily OMEPRAZOLE 24581668882 Active Jonel Hemphill MD Active DIGOXIN 125 MCG ORAL TABS 1 daily DIGOXIN 52282573954 Active Jonel Hemphill MD Active DILTIAZEM CD 240 MG ORAL [id number] 1 daily DILTIAZEM HCL COATED BEADS 19553063496 Active Jonel Hemphill MD Active NOVOLOG 100 UNIT/ML SC SOLN 70-140=0U 141-180=2 U 181-220=4U 221-260=6U 261- 300=8U 301-340=10U 898=255=34K 381-400=14U INSULIN ASPART 88806086334 Active Jonel Hemphill MD Active ACETAMINOPHEN 325 MG ORAL TABS 1 tab by mouth every 4 hours as needed ACETAMINOPHEN 21059494008 Active Jonel Hemphill MD Active FENTANYL 12 MCG/HR PT72 Apply to clean, dry skin and change every 72 hours FENTANYL 18379647447 No Longer Active Jonel Hemphill MD Active PHENYTOIN 50 MG CHEW 1 TAB PO BID PHENYTOIN 70406498568 No Longer Active Jonel Hemphill MD Active NORCO 5-325 MG TABS 1-2 TAB Q 6 HRS PRN HYDROCODONE- ACETAMINOPHEN 61944751219 No Longer Active Jonel Hemphill MD Active MULTIVITAMINS CAPS 1 DAILY MULTIPLE VITAMIN 53389389990 No Longer Active Jonel Hemphill MD Active BUPROPION HCL ER (SR) 150 MG [id number] 1 twice a day for depression BUPROPION HCL 31856313572 No Longer Active Jonel Hemphill MD Active LISINOPRIL 20 MG TABS 1 tablet by mouth daily LISINOPRIL 78045160681 Active Jonel Hemphill MD Active ULORIC 40 MG ORAL TABS 1 daily for gout. FEBUXOSTAT 70476027310 No Longer Active Jonel Hemphill MD Active CELEXA 20 MG TABS 1 tablet by mouth daily CITALOPRAM HYDROBROMIDE 94791682437 Active Marleni Raida Active ZOFRAN 4 MG TABS 1 po q6hr PRN [place] ONDANSETRON HCL 52142123274 Active Jonel Hemphill MD Active XARELTO 20 MG ORAL TABS 1 daily RIVAROXABAN 54815656000 Active Jonel Hemphill MD Active JANUVIA 100 MG ORAL TABS 2 tabs daily SITAGLIPTIN PHOSPHATE 84741709803 Active Jonel Hemphill MD Active CELEXA 20 MG TABS Take 1 tablet 1x daily CITALOPRAM HYDROBROMIDE 93224884217 No Longer Active Jonel Hemphill MD Active ATIVAN 0.5 MG TABS Take 1 tablet 2x daily PRN LORAZEPAM 17866673102 No Longer Active Jonel Hemphill MD Active FUROSEMIDE 80 MG ORAL TABS 1 daily FUROSEMIDE 95674571959 Active Jonel Hemphill MD Active MECLIZINE HCL 25 MG CHEW TAB 1 four times a day as needed for dizziness 02/21 MECLIZINE HCL 80645276552 No Longer Active Jonel Hemphill MD Active ZYLOPRIM 300 MG TAB 1 BY MOUTH DAILY ALLOPURINOL 27290282643 No Longer Active Jonel Hemphill MD Active METOPROLOL TARTRATE 50 MG ORAL TABS 1 TAB BY MOUTH TWICE DAILY METOPROLOL TARTRATE 76264248249 No Longer Active Jonel Hemphill MD Active GABAPENTIN 400 MG ORAL CAPS 1 TAB BY MOUTH THREE TIMES DAILY 2015 GABAPENTIN 80798098006 No Longer Active Jonel Hemphill MD Active HYDROCODONE-ACETAMINOPHEN 7.5-325 MG TABS 1 TAB PO Q 6 HRS PRN HYDROCODONE-ACETAMINOPHEN 29833362876 Active Jonel Hemphill MD Active METFORMIN HCL 1000 MG TABS 1 tablet by mouth twice daily METFORMIN HCL 26626648395 Active Marleni Romero Active KLOR-CON 20 MEQ ORAL PACK 1 BY MOUTH DAILY POTASSIUM CHLORIDE 79248673516 Active Marleni Romero Active A+D FIRST AID EXT OINT APPLY OINTMENT AND RUFINO WRAPS TO LOWER EXTEREMETIES DAILY SKIN PROTECTANTS, MISC. 47140264930 Active Jonel Hemphill MD Active NYSTATIN 721762 UNIT/GM EXT OINT APPLY PRN TID TO GAULDING/RASH IN ABDOMINAL FOLDS NYSTATIN 17062514735 Active Jonel Hemphill MD Active GABAPENTIN 300 MG CAPS 1 CAP PO TID GABAPENTIN 99054829475 No Longer Active Jonel Hemphill MD Active DILANTIN 100 MG ORAL CAPS 1 THREE TIMES DAILY FOR SEIZURES PHENYTOIN SODIUM EXTENDED 48839053487 Active Marleni Romero Active CPAP APPLY AT HS CPAP Active Jonel Hemphill MD Active HYDROCODONE-ACETAMINOPHEN 7.5-325 MG TABS 1 q 6 hrs prn HYDROCODONE-ACETAMINOPHEN 78457033214 No Longer Active Jonel Hemphill MD Active DILANTIN 100 MG CAPS 3 cap tid PHENYTOIN SODIUM EXTENDED 29414234352 No Longer Active Jonel Hemphill MD Active BUDEPRION SR 150 MG [id number] 1 bid BUPROPION HCL 88145003459 No Longer Active Jonel Hemphill MD Active ALLOPURINOL 300 MG TABS 1 qd ALLOPURINOL 02441882124 No Longer Active Jonel Hemphill MD Active COZAAR 100 MG TABS 1 qd LOSARTAN POTASSIUM 56348642370 No Longer Active Jonel Hemphill MD Active CVS VITAMIN C 500 MG TABS 1 po daily ASCORBIC ACID 02181786816 No Longer Active Jonel Hemphill MD Active MIRALAX POWD 17 gms in 4 oz water or juice daily POLYETHYLENE GLYCOL 3350 12558108264 No Longer Active Jonel Hemphill MD Active POTASSIUM CHLORIDE CHELA ER 20 MEQ CR-TABS 1 tab PO daily POTASSIUM CHLORIDE CHELA CR 65864882095 No Longer Active Jonel Hemphill MD Active AMBIEN 10 MG TAB 1 tab by mouth at bedtime as needed for sleep ZOLPIDEM TARTRATE 40742819091 No Longer Active Jonel Hemphill MD Active SULFAMETHOXAZOLE-TMP DS 800-160 MG TABS 1 TAB PO BID SULFAMETHOXAZOLE-TRIMETHOPRIM 80784958567 No Longer Active Jonel Hemphill MD Active LEVEMIR 100 UNIT/ML SOLN 5 units sub-q at bedtime INSULIN DETEMIR 12519015420 No Longer Active Tova Perez Active MOBIC 15 MG TABS 1 tab PO daily for arthritis pain MELOXICAM 71289871361 No Longer Active Tova Perez Active GLUCAGEN 1 MG SOLR INJECT 1MG IM IF BS LESS THAN 60 & RES. IS UNABLE TO SWALLOW GLUCAGON HCL (RDNA) 21565745475 No Longer Active Tova Perez Active CVS MILK OF MAGNESIA 1200 MG/15ML SUSP 30 ml daily for constipation MAGNESIUM HYDROXIDE 54700656729 No Longer Active Tova Perez Active IMDUR 120 MG [id number] 1 qd ISOSORBIDE MONONITRATE 10340811231 No Longer Active Tova Perez Active NEURONTIN 400 MG CAPS Take one by mouth 3 times daily, morning, afternoon and evening.] GABAPENTIN 59362188726 No Longer Active Tova Perez Active ANTIVERT 25 MG TABS 1 q 6 hrs prn MECLIZINE HCL 28777295398 No Longer Active Jonel Hemphill MD Active CLONIDINE HCL 0.2 MG TABS 1 q 8 hrs as needed -greater than 160-htn CLONIDINE HCL 37022034493 No Longer Active Jonel Hemphill MD Active AMBIEN 10 MG TABS 1 q hs prn ZOLPIDEM TARTRATE 53662446212 No Longer Active Jonel Hemphill MD Active GNP THERAPEUTIC-M TABS 1 qd MULTIPLE VITAMINS- MINERALS 28537013778 No Longer Active Jonel Hemphill MD Active METOPROLOL TARTRATE 50 MG TABS 1 bid METOPROLOL TARTRATE 65239510668 No Longer Active Jonel Hemphill MD Active METFORMIN HCL 500 MG TABS 1 bod with food METFORMIN HCL 91823426562 No Longer Active Jonel Hemphill MD Active LISINOPRIL 40 MG TABS 1 qd LISINOPRIL 88296741447 No Longer Active Jonel Hemphill MD Active HYDROCHLOROTHIAZIDE 25 MG TABS 1 qd HYDROCHLOROTHIAZIDE 75401499376 No Longer Active Jonel Hemphill MD Active DURAGESIC-25 25 MCG/HR PT72 place 1 patch on the skin q72hrs for pain FENTANYL 42981884167 No Longer Active Jonel Hemphill MD Active FENTANYL 75 MCG/HR PT72 place 1 patch on skin q72hrs fr pain 2012 FENTANYL 64128415062 No Longer Active Jonel Hemphill MD Active FUROSEMIDE 40 MG TABS 1 q am FUROSEMIDE 24248915525 No Longer Active Jonel Hemphill MD Active HEPARIN (PORCINE) LOCK FLUSH 100 UNIT/ML SOLN Flush port a cath monthly every three week on with Heparin and NS HEPARIN LOCK FLUSH 26390437690 Active Jonel Hemphill MD Active FENTANYL 100 MCG/HR PT72 Apply every 3 days FENTANYL 67369265394 Active Jonel Hemphill MD Active FENTANYL 25 MCG/HR PT72 Apply to clean skin and change every 72 hours. 07/03 FENTANYL 29268618982 No Longer Active Jonel Hemphill MD Active FENTANYL 50 MCG/HR PT72 place 1 patch on skin q72 hours FENTANYL 06179751782 No Longer Active Mayco Shah APRN Active DURAGESIC-12 12 MCG/HR PT72 APPLY PATCH TO SKIN AND CHANGE EVERY 72 HOURS, ROTATE SITES FENTANYL 33684177378 No Longer Active Fozia HERNANDEZ Active FUROSEMIDE 20 MG TABS 1 qd FUROSEMIDE 11172426187 No Longer Active Mahogany Little[place] Active ADULT ASPIRIN EC LOW STRENGTH 81 MG TBEC 1 qd ASPIRIN 02099197122 Active MARY Perez Active FUROSEMIDE 20 MG TABS 1 qd FUROSEMIDE 20 MG TABS 548448 FUROSEMIDE Inactive DURAGESIC-12 12 MCG/HR PT72 APPLY PATCH TO SKIN AND CHANGE EVERY 72 HOURS, ROTATE SITES DURAGESIC-12 12 MCG/HR PT72 166815 FENTANYL Inactive FENTANYL 50 MCG/HR PT72 place 1 patch on skin q72 hours FENTANYL 50 MCG/HR PT72 842965 FENTANYL Inactive FUROSEMIDE 40 MG TABS 1 q am FUROSEMIDE 40 MG TABS 563455 FUROSEMIDE Inactive FENTANYL 75 MCG/HR PT72 place 1 patch on skin q72hrs fr pain 2012 FENTANYL 75 MCG/HR PT72 016432 FENTANYL Inactive DURAGESIC-25 25 MCG/HR PT72 place 1 patch on the skin q72hrs for pain DURAGESIC-25 25 MCG/HR PT72 365785 FENTANYL Inactive HYDROCHLOROTHIAZIDE 25 MG TABS 1 qd HYDROCHLOROTHIAZIDE 25 MG TABS 430071 HYDROCHLOROTHIAZIDE Inactive LISINOPRIL 40 MG TABS 1 qd LISINOPRIL 40 MG TABS 058269 LISINOPRIL Inactive METFORMIN HCL 500 MG TABS 1 bod with food METFORMIN HCL 500 MG TABS 407691 METFORMIN HCL Inactive METOPROLOL TARTRATE 50 MG TABS 1 bid METOPROLOL TARTRATE 50 MG TABS 329410 METOPROLOL TARTRATE Inactive GNP THERAPEUTIC-M TABS 1 qd GNP THERAPEUTIC-M TABS MULTIPLE VITAMINS-MINERALS Inactive AMBIEN 10 MG TABS 1 q hs prn AMBIEN 10 MG TABS 662908 ZOLPIDEM TARTRATE Inactive CLONIDINE HCL 0.2 MG TABS 1 q 8 hrs as needed -greater than 160-htn CLONIDINE HCL 0.2 MG TABS 220734 CLONIDINE HCL Inactive ANTIVERT 25 MG TABS 1 q 6 hrs prn ANTIVERT 25 MG TABS MECLIZINE HCL Inactive NEURONTIN 400 MG CAPS Take one by mouth 3 times daily, morning, afternoon and evening.] NEURONTIN 400 MG CAPS 355601 GABAPENTIN Inactive IMDUR 120 MG [id number] 1 qd IMDUR 120 MG [id number] ISOSORBIDE MONONITRATE Inactive CVS MILK OF MAGNESIA [...] for arthritis pain MOBIC 15 MG TABS 977136 MELOXICAM Inactive LEVEMIR 100 UNIT/ML SOLN 5 units sub-q at bedtime LEVEMIR 100 UNIT/ML SOLN INSULIN DETEMIR Inactive SULFAMETHOXAZOLE-TMP DS 800-160 MG TABS 1 TAB PO BID SULFAMETHOXAZOLE-TMP DS 800-160 MG TABS 992643 SULFAMETHOXAZOLE-TRIMETHOPRIM Inactive AMBIEN 10 MG TAB 1 tab by mouth at bedtime as needed for sleep AMBIEN 10 MG TAB 587424 ZOLPIDEM TARTRATE Inactive POTASSIUM CHLORIDE CHELA ER 20 MEQ CR-TABS 1 tab PO daily POTASSIUM CHLORIDE CHELA ER 20 MEQ CR-TABS POTASSIUM CHLORIDE CHELA CR Inactive MIRALAX POWD 17 gms in 4 oz water or juice daily MIRALAX POWD 822809 POLYETHYLENE GLYCOL 3350 Inactive CVS VITAMIN C 500 MG TABS 1 po daily CVS VITAMIN C 500 MG TABS 667481 ASCORBIC ACID Inactive COZAAR 100 MG TABS 1 qd COZAAR 100 MG TABS 009995 LOSARTAN POTASSIUM Inactive ALLOPURINOL 300 MG TABS 1 qd ALLOPURINOL 300 MG TABS 976643 ALLOPURINOL Inactive BUDEPRION SR 150 MG [id number] 1 bid BUDEPRION SR 150 MG [id number] BUPROPION HCL Inactive DILANTIN 100 MG CAPS 3 cap tid DILANTIN 100 MG CAPS 474167 PHENYTOIN SODIUM EXTENDED Inactive HYDROCODONE-ACETAMINOPHEN 7.5-325 MG TABS 1 q 6 hrs prn HYDROCODONE-ACETAMINOPHEN 7.5-325 MG TABS 427870 HYDROCODONE- ACETAMINOPHEN Inactive GABAPENTIN 300 MG CAPS 1 CAP PO TID GABAPENTIN 300 MG CAPS 279439 GABAPENTIN Inactive GABAPENTIN 400 MG ORAL CAPS 1 TAB BY MOUTH THREE TIMES DAILY 2015 GABAPENTIN 400 MG ORAL CAPS 842112 GABAPENTIN Inactive METOPROLOL TARTRATE 50 MG ORAL TABS 1 TAB BY MOUTH TWICE DAILY METOPROLOL TARTRATE 50 MG ORAL TABS 286303 METOPROLOL TARTRATE Inactive ZYLOPRIM 300 MG TAB 1 BY MOUTH DAILY ZYLOPRIM 300 MG TAB 340693 ALLOPURINOL Inactive MECLIZINE HCL 25 MG CHEW TAB 1 four times a day as needed for dizziness 02/21 MECLIZINE HCL 25 MG CHEW TAB 042172 MECLIZINE HCL Inactive ATIVAN 0.5 MG TABS Take 1 tablet 2x daily PRN ATIVAN 0.5 MG TABS 079224 LORAZEPAM Inactive CELEXA 20 MG TABS Take 1 tablet 1x daily CELEXA 20 MG TABS 231451 CITALOPRAM HYDROBROMIDE Inactive ULORIC 40 MG ORAL TABS 1 daily for gout. ULORIC 40 MG ORAL TABS FEBUXOSTAT Inactive BUPROPION HCL ER (SR) 150 MG [id number] 1 twice a day for depression BUPROPION HCL ER (SR) 150 MG [id number] BUPROPION HCL Inactive MULTIVITAMINS CAPS 1 DAILY MULTIVITAMINS CAPS MULTIPLE VITAMIN Inactive NORCO 5-325 MG TABS 1-2 TAB Q 6 HRS PRN NORCO 5-325 MG TABS 594815 HYDROCODONE-ACETAMINOPHEN Inactive PHENYTOIN 50 MG CHEW 1 TAB PO BID PHENYTOIN 50 MG CHEW 6434891 PHENYTOIN Inactive FENTANYL 12 MCG/HR PT72 Apply to clean, dry skin and change every 72 hours FENTANYL 12 MCG/HR PT72 812810 FENTANYL Inactive FENTANYL 25 MCG/HR PT72 Apply to clean skin and change every 72 hours. 2013/ 05/22 FENTANYL 25 MCG/HR PT72 691116 FENTANYL Inactive Advance Directives Directive Description Start [...] mg/dL Encounters Code Encounter Date Provider Facility CPT-15857 Level 4 Est. Patient 18:47:35 YARD INSPECTOR Jonel Hemphill MD [facility] CPT-42657 Level 4 Est. Patient 10:04:48 YARD INSPECTOR Jonel Hemphill MD [facility] CPT-27622 Level 3 Est. Patient 19:05:03 CDT Jonel Hemphill MD [facility] CPT-66732 Level 3 Est. Patient 17:30:47 CDT Kevin Link MD [facility] CPT-19327 Level 3 Est. Patient 18:04:07 CDT Jonel Hemphill MD [facility] CPT-33353 Level 3 Est. Patient 17:18:03 CDT Jonel Hemphill MD [facility] CPT-39260 Level 3 Est. Patient 21:58:03 YARD INSPECTOR Jonel Hemphill MD [facility] CPT-11037 Level 4 Est. Patient 18:03:14 CDT Jonel Yeager [facility]-04010 Level 4 Est. Patient 13:24:53 CDT [facility] CPT-32658 Level 4 Est. Patient 09:15:44 CDT Jonel Hemphill MD [facility]-53518 Level 4 Est. Patient 19:16:01 CDT Jonel Hemphill MD [facility]-95166 Level 4 Est. Patient 11:25:16 CDT Jonel Hemphill MD [facility] CPT-45913 Level 4 Est. Patient 09:00:40 CDT Jonel Hemphill MD [facility]-21045 Level 4 Est. Patient 14:53:58 CDT Jonel Hemphill MD [facility]-15331 Level 4 Est. Patient 22:59:01 CDT Jonel Hemphill MD [facility]-83906 Level 4 Est. Patient 09:29:57 CDT Jonel Hemphill MD [facility]-57631 Level 4 Est. Patient 12:35:53 YARD INSPECTOR Jonel Hemphill MD [facility]-95550 Level 4 Est. Patient 22:36:09 YARD INSPECTOR Jonel Hemphill MD [facility]-64049 Level 2 Est. Patient 15:14:15 YARD INSPECTOR Mayco Shah APRN [facility] CPT-38751 Level 4 Est. Patient 10:36:22 YARD INSPECTOR Jonel Hemphill MD [facility] CPT-30929 Level 4 Est. Patient 22:01:13 YARD INSPECTOR Jonel Hemphill MD [facility]-04026 Level 3 Est. Patient 21:50:37 YARD INSPECTOR Jonel Hemphill MD [facility] CPT-55230 Level 4 Est. Patient 15:02:43 CDT Rubin Pierre MD [facility] CPT-18526 Level 4 Est. Patient 14:27:35 CDT Jonel Hemphill MD [facility]-11711 Level 4 Est. Patient 12:41:17 CDT Jonel Hemphill MD [facility]-69596 Level 4 Est. Patient 16:18:55 CDT Jonel Hemphill MD [facility]-04094 Level 4 Est. Patient 17:58:05 CDT Jonel Hemphill MD [facility]-00698 Level 4 Est. Patient 22:10:06 CDT Jonel Hemphill MD [facility]-71568 Level 4 Est. Patient 13:22:09 CDT Jonel Hemphill MD [facility]-82019 Level 4 Est. Patient 22:52:17 YARD INSPECTOR Jonel Hemphill MD [facility]-54872 Level 3 Est. Patient 22:34:10 YARD INSPECTOR Jonel Hemphill MD [facility]-74970 Level 4 Est. Patient 07:49:20 YARD INSPECTOR Jonel Hemphill MD [facility] Skilled CPT-20068 Level 3 Est. Patient 08:28:27 YARD INSPECTOR Jonel Hemphill MD [facility] Procedures Code Procedure Name Date Entry Date Standard Description CPT-G0438 Initial Annual Wellness Exam 09:32:09 YARD INSPECTOR CPT-53425 Level 3 Mcc 17:57:17 YARD INSPECTOR CPT-65739 Level 3 Mcc 21:14:15 YARD INSPECTOR CPT-68823 Level 3 Mcc 15:38:24 CDT CPT-38094 Level 3 Mcc 08:18:30 CDT CPT-56972 Level 3 Mcc 19:03:14 CDT CPT-53119 Level 3 Mcc 17:42:11 CDT CPT-57925 Level 3 Mcc 16:04:10 CDT CPT-10923 Level 3 Mcc 19:38:15 YARD INSPECTOR CPT-39155 Level 3 Mcc 19:28:48 YARD INSPECTOR CPT-28580 Level 3 Mcc 18:02:20 YARD INSPECTOR CPT-77470 Level 3 Mcc 15:02:14 YARD INSPECTOR CPT-23464 Level 3 Mcc 12:25:37 CDT CPT-87788 Level 3 Mcc 12:48:39 CDT CPT-50671 Level 3 Mcc 17:39:14 CDT CPT-74091 Level 3 Mcc 13:32:58 CDT CPT-43640 Level 3 Mcc 17:43:43 CDT CPT-57815 Level 3 Mcc 12:03:33 YARD INSPECTOR CPT-71048 Level 3 Mcc 18:47:28 YARD INSPECTOR CPT-69581 Level 3 Mcc 17:35:26 YARD INSPECTOR CPT-05001 Level 3 Mcc 18:44:49 YARD INSPECTOR CPT-22919 Level 3 Mcc 18:17:33 CDT CPT-83233 Level 3 Mcc 09:25:33 CDT CPT-72926 Level 3 Mcc 19:11:57 CDT CPT-61947 Level 3 Mcc 09:25:52 CDT CPT-63014 Level 3 Mcc 14:23:59 CDT CPT-68399 Level 3 Mcc 12:09:43 CDT CPT-59376 Level 3 Mcc 09:37:40 CDT CPT-89461 Level 3 Mcc 18:23:02 CDT CPT-23296 Level 3 Mcc 14:09:06 CDT CPT-61866 Level 3 Mcc 12:43:27 YARD INSPECTOR CPT-31642 Postop F/U Visit 14:10:15 YARD INSPECTOR CPT-00549 [facility] Neck 17:07:14 YARD INSPECTOR CPT-81113 Level 3 Mcc 16:14:37 YARD INSPECTOR CPT-15156 Port a cath flush 11:47:42 CDT CPT-29484 Port a cath flush 08:29:49 CDT CPT-OV Office Visit 14:27:58 YARD INSPECTOR
--- OUTSIDE RECORDS SUMMARY | 2016-08-07 11:08 | XMS REPORT | Clinical Summary ---
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 V58.69 Resolved Jonel Hemphill MD Long-term (current) [...] Coronary atherosclerosis of unspecified type of vessel, seminole or graft FH DIABETES V18.0 Resolved Jonel [...] Coronary atherosclerosis of unspecified type of vessel, seminole or graft CONSTIPATION 564.00 Resolved Jonel Hemphill [...] Obstructive sleep apnea (adult) (pediatric) 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 USE, SITE TECHNICIAN ICD-V58.69 Inactive Jonel Hemphill MD DIABETES, TYPE [...] MD Hip pain, right ICD-719.45 Inactive Jonel eHmphill MD Bronchitis-Acute ICD-466.0 Inactive Jonel Hemphill MD Cellulitis, leg, right ICD-682.6 Inactive Jonel Hemphill MD Chest wall pain, acute ICD-786.52 Inactive Jonel Hemphill MD Medication List Medication Instructions Start Date Stop Date Generic Name NDC Status Provider Patient Instruction FENTANYL 12 MCG/HR PT72 Apply to clean, dry skin and change every 72 hours FENTANYL 31610231525 Active Tova Chris Active MIRALAX POWD 17 gms in 4 oz water or juice daily POLYETHYLENE GLYCOL 3350 94985530860 Active Jonel Hemphill MD Active CVS MELATONIN 3 MG ORAL TABS 2 tabs at hs MELATONIN 30337884678 Active Jonel Hemphill MD Active MAGNESIUM GLUCONATE 500 MG ORAL TABS 1 tab twice daily MAGNESIUM GLUCONATE 37257884584 Active Jonel Hemphill MD Active OMEPRAZOLE 20 MG CPDR 1 tablet by mouth daily OMEPRAZOLE 48730966802 Active Jonel Hemphill MD Active DIGOXIN 125 MCG ORAL TABS 1 daily DIGOXIN 45091986362 Active Jonel Hemphill MD Active DILTIAZEM CD 240 MG ORAL [id number] 1 daily DILTIAZEM HCL COATED BEADS 08075128698 Active Jonel Hemphill MD Active NOVOLOG 100 UNIT/ML SC SOLN 70-140=0U 141-180=2 U 181-220=4U 221-260=6U 261- 300=8U 301-340=10U 742=927=81L 381-400=14U INSULIN ASPART 53474693205 Active Jonel Hemphill MD Active ACETAMINOPHEN 325 MG ORAL TABS 1 tab by mouth every 4 hours as needed ACETAMINOPHEN 03443229529 Active Jonel Hemphill MD Active FENTANYL 12 MCG/HR PT72 Apply to clean, dry skin and change every 72 hours FENTANYL 95752670691 No Longer Active Jonel Hemphill MD Active PHENYTOIN 50 MG CHEW 1 TAB PO BID PHENYTOIN 75123368236 No Longer Active Jonel Hemphill MD Active NORCO 5-325 MG TABS 1-2 TAB Q 6 HRS PRN HYDROCODONE- ACETAMINOPHEN 88159439567 No Longer Active Jonel Hemphill MD Active MULTIVITAMINS CAPS 1 DAILY MULTIPLE VITAMIN 50273387178 No Longer Active Jonel Hemphill MD Active BUPROPION HCL ER (SR) 150 MG [id number] 1 twice a day for depression BUPROPION HCL 35716046131 No Longer Active Jonel Hemphill MD Active LISINOPRIL 20 MG TABS 1 tablet by mouth daily LISINOPRIL 00055329154 Active Jonel Hemphill MD Active ULORIC 40 MG ORAL TABS 1 daily for gout. FEBUXOSTAT 46190241459 No Longer Active Jonel Hemphill MD Active CELEXA 20 MG TABS 1 tablet by mouth daily CITALOPRAM HYDROBROMIDE 07226511420 Active Marleni Raida Active ZOFRAN 4 MG TABS 1 po q6hr PRN Nausea ONDANSETRON HCL 39983785188 Active Jonel Hemphill MD Active XARELTO 20 MG ORAL TABS 1 daily RIVAROXABAN 88844144148 Active Jonel Hemphill MD Active JANUVIA 100 MG ORAL TABS 2 tabs daily SITAGLIPTIN PHOSPHATE 33175520111 Active Jonel Hemphill MD Active CELEXA 20 MG TABS Take 1 tablet 1x daily CITALOPRAM HYDROBROMIDE 54885466202 No Longer Active Jonel Hemphill MD Active ATIVAN 0.5 MG TABS Take 1 tablet 2x daily PRN LORAZEPAM 06164324043 No Longer Active Jonel Hemphill MD Active FUROSEMIDE 80 MG ORAL TABS 1 daily FUROSEMIDE 31315776228 Active Jonel Hemphill MD Active MECLIZINE HCL 25 MG CHEW TAB 1 four times a day as needed for dizziness 02/21 MECLIZINE HCL 08713971833 No Longer Active Jonel Hemphill MD Active ZYLOPRIM 300 MG TAB 1 BY MOUTH DAILY ALLOPURINOL 21166147088 No Longer Active Jonel Hemphill MD Active METOPROLOL TARTRATE 50 MG ORAL TABS 1 TAB BY MOUTH TWICE DAILY METOPROLOL TARTRATE 99735753453 No Longer Active Jonel Hemphill MD Active GABAPENTIN 400 MG ORAL CAPS 1 TAB BY MOUTH THREE TIMES DAILY 2015 GABAPENTIN 59636251188 No Longer Active Jonel Hemphill MD Active HYDROCODONE-ACETAMINOPHEN 7.5-325 MG TABS 1 TAB PO Q 6 HRS PRN HYDROCODONE-ACETAMINOPHEN 89698788065 Active Jonel Hemphill MD Active METFORMIN HCL 1000 MG TABS 1 tablet by mouth twice daily METFORMIN HCL 47260369651 Active Marleni Romero Active KLOR-CON 20 MEQ ORAL PACK 1 BY MOUTH DAILY POTASSIUM CHLORIDE 41766501588 Active Marleni Romero Active A+D FIRST AID EXT OINT APPLY OINTMENT AND RUFINO WRAPS TO LOWER EXTEREMETIES DAILY SKIN PROTECTANTS, MISC. 17530908123 Active Jonel Hemphill MD Active NYSTATIN 573348 UNIT/GM EXT OINT APPLY PRN TID TO GAULDING/RASH IN ABDOMINAL FOLDS NYSTATIN 16789003941 Active Jonel Hemphill MD Active GABAPENTIN 300 MG CAPS 1 CAP PO TID GABAPENTIN 16277096040 No Longer Active Jonel Hemphill MD Active DILANTIN 100 MG ORAL CAPS 1 THREE TIMES DAILY FOR SEIZURES PHENYTOIN SODIUM EXTENDED 73407844302 Active Marleni Romero Active CPAP APPLY AT HS CPAP Active Jonel Hemphill MD Active HYDROCODONE-ACETAMINOPHEN 7.5-325 MG TABS 1 q 6 hrs prn HYDROCODONE-ACETAMINOPHEN 61412038814 No Longer Active Jonel Hemphill MD Active DILANTIN 100 MG CAPS 3 cap tid PHENYTOIN SODIUM EXTENDED 02398793790 No Longer Active Jonel Hemphill MD Active BUDEPRION SR 150 MG [id number] 1 bid BUPROPION HCL 01667223070 No Longer Active Jonel Hemphill MD Active ALLOPURINOL 300 MG TABS 1 qd ALLOPURINOL 04321345758 No Longer Active Jonel Hemphill MD Active COZAAR 100 MG TABS 1 qd LOSARTAN POTASSIUM 16686462965 No Longer Active Jonel Hemphill MD Active CVS VITAMIN C 500 MG TABS 1 po daily ASCORBIC ACID 31922059509 No Longer Active Jonel Hemphill MD Active MIRALAX POWD 17 gms in 4 oz water or juice daily POLYETHYLENE GLYCOL 3350 70182466241 No Longer Active Jonel Hemphill MD Active POTASSIUM CHLORIDE CHELA ER 20 MEQ CR-TABS 1 tab PO daily POTASSIUM CHLORIDE CHELA CR 92243722950 No Longer Active Jonel Hemphill MD Active AMBIEN 10 MG TAB 1 tab by mouth at bedtime as needed for sleep ZOLPIDEM TARTRATE 28221566835 No Longer Active Jonel Hemphill MD Active SULFAMETHOXAZOLE-TMP DS 800-160 MG TABS 1 TAB PO BID SULFAMETHOXAZOLE-TRIMETHOPRIM 85588158819 No Longer Active Jonel Hemphill MD Active LEVEMIR 100 UNIT/ML SOLN 5 units sub-q at bedtime INSULIN DETEMIR 34684105769 No Longer Active Tova Perez Active MOBIC 15 MG TABS 1 tab PO daily for arthritis pain MELOXICAM 75524765854 No Longer Active Tova Perez Active GLUCAGEN 1 MG SOLR INJECT 1MG IM IF BS LESS THAN 60 & RES. IS UNABLE TO SWALLOW GLUCAGON HCL (RDNA) 20941478258 No Longer Active Tova Perez Active CVS MILK OF MAGNESIA 1200 MG/15ML SUSP 30 ml daily for constipation MAGNESIUM HYDROXIDE 84157801975 No Longer Active Tova Perez Active IMDUR 120 MG BS28V-CDL 1 qd ISOSORBIDE MONONITRATE 32526788791 No Longer Active Tova Perez Active NEURONTIN 400 MG CAPS Take one by mouth 3 times daily, morning, afternoon and evening.] GABAPENTIN 24174312670 No Longer Active Tova Perez Active ANTIVERT 25 MG TABS 1 q 6 hrs prn MECLIZINE HCL 52306699592 No Longer Active Jonel Hemphill MD Active CLONIDINE HCL 0.2 MG TABS 1 q 8 hrs as needed -greater than 160-htn CLONIDINE HCL 48430957044 No Longer Active Jonel Hemphill MD Active AMBIEN 10 MG TABS 1 q hs prn ZOLPIDEM TARTRATE 15049122614 No Longer Active Jonel Hemphill MD Active GNP THERAPEUTIC-M TABS 1 qd MULTIPLE VITAMINS- MINERALS 09384464990 No Longer Active Jonel Hemphill MD Active METOPROLOL TARTRATE 50 MG TABS 1 bid METOPROLOL TARTRATE 13863804346 No Longer Active Jonel Hemphill MD Active METFORMIN HCL 500 MG TABS 1 bod with food METFORMIN HCL 58357095632 No Longer Active Jonel Hemphill MD Active LISINOPRIL 40 MG TABS 1 qd LISINOPRIL 07708842860 No Longer Active Jonel Hemphill MD Active HYDROCHLOROTHIAZIDE 25 MG TABS 1 qd HYDROCHLOROTHIAZIDE 55442328274 No Longer Active Jonel Hemphill MD Active DURAGESIC-25 25 MCG/HR PT72 place 1 patch on the skin q72hrs for pain FENTANYL 15408730427 No Longer Active Jonel Hemphill MD Active FENTANYL 75 MCG/HR PT72 place 1 patch on skin q72hrs fr pain 2012 FENTANYL 67788199737 No Longer Active Jonel Hemphill MD Active FUROSEMIDE 40 MG TABS 1 q am FUROSEMIDE 82720616938 No Longer Active Jonel Hemphill MD Active HEPARIN (PORCINE) LOCK FLUSH 100 UNIT/ML SOLN Flush port a cath monthly every three week on with Heparin and NS HEPARIN LOCK FLUSH 18422149741 Active Jonel Hemphill MD Active FENTANYL 100 MCG/HR PT72 Apply every 3 days FENTANYL 23701325532 Active Jonel Hemphill MD Active FENTANYL 25 MCG/HR PT72 Apply to clean skin and change every 72 hours. 07/03 FENTANYL 30334434306 No Longer Active Jonel Hemphill MD Active FENTANYL 50 MCG/HR PT72 place 1 patch on skin q72 hours FENTANYL 57359347021 No Longer Active Mayco Shah APRN Active DURAGESIC-12 12 MCG/HR PT72 APPLY PATCH TO SKIN AND CHANGE EVERY 72 HOURS, ROTATE SITES FENTANYL 38935995752 No Longer Active Fozia YANGA Active FUROSEMIDE 20 MG TABS 1 qd FUROSEMIDE 74373690084 No Longer Active Mahogany [place] Active ADULT ASPIRIN EC LOW STRENGTH 81 MG TBEC 1 qd ASPIRIN 96419266757 Active MARY Peerz Active FUROSEMIDE 20 MG TABS 1 qd FUROSEMIDE 20 MG TABS 931010 FUROSEMIDE Inactive DURAGESIC-12 12 MCG/HR PT72 APPLY PATCH TO SKIN AND CHANGE EVERY 72 HOURS, ROTATE SITES DURAGESIC-12 12 MCG/HR PT72 595888 FENTANYL Inactive FENTANYL 50 MCG/HR PT72 place 1 patch on skin q72 hours FENTANYL 50 MCG/HR PT72 960700 FENTANYL Inactive FUROSEMIDE 40 MG TABS 1 q am FUROSEMIDE 40 MG TABS 899580 FUROSEMIDE Inactive FENTANYL 75 MCG/HR PT72 place 1 patch on skin q72hrs fr pain 2012 FENTANYL 75 MCG/HR PT72 255564 FENTANYL Inactive DURAGESIC-25 25 MCG/HR PT72 place 1 patch on the skin q72hrs for pain DURAGESIC-25 25 MCG/HR PT72 573121 FENTANYL Inactive HYDROCHLOROTHIAZIDE 25 MG TABS 1 qd HYDROCHLOROTHIAZIDE 25 MG TABS 158536 HYDROCHLOROTHIAZIDE Inactive LISINOPRIL 40 MG TABS 1 qd LISINOPRIL 40 MG TABS 137985 LISINOPRIL Inactive METFORMIN HCL 500 MG TABS 1 bod with food METFORMIN HCL 500 MG TABS 398305 METFORMIN HCL Inactive METOPROLOL TARTRATE 50 MG TABS 1 bid METOPROLOL TARTRATE 50 MG TABS 197884 METOPROLOL TARTRATE Inactive GNP THERAPEUTIC-M TABS 1 qd GNP THERAPEUTIC-M TABS MULTIPLE VITAMINS-MINERALS Inactive AMBIEN 10 MG TABS 1 q hs prn AMBIEN 10 MG TABS 684605 ZOLPIDEM TARTRATE Inactive CLONIDINE HCL 0.2 MG TABS 1 q 8 hrs as needed -greater than 160-htn CLONIDINE HCL 0.2 MG TABS 265083 CLONIDINE HCL Inactive ANTIVERT 25 MG TABS 1 q 6 hrs prn ANTIVERT 25 MG TABS MECLIZINE HCL Inactive NEURONTIN 400 MG CAPS Take one by mouth 3 times daily, morning, afternoon and evening.] NEURONTIN 400 MG CAPS 252191 GABAPENTIN Inactive IMDUR 120 MG [id number] 1 qd IMDUR 120 MG [id number]-ANQ ISOSORBIDE MONONITRATE Inactive CVS MILK OF MAGNESIA [...] for arthritis pain MOBIC 15 MG TABS 810148 MELOXICAM Inactive LEVEMIR 100 UNIT/ML SOLN 5 units sub-q at bedtime LEVEMIR 100 UNIT/ML SOLN INSULIN DETEMIR Inactive SULFAMETHOXAZOLE-TMP DS 800-160 MG TABS 1 TAB PO BID SULFAMETHOXAZOLE-TMP DS 800-160 MG TABS 372299 SULFAMETHOXAZOLE-TRIMETHOPRIM Inactive AMBIEN 10 MG TAB 1 tab by mouth at bedtime as needed for sleep AMBIEN 10 MG TAB 310111 ZOLPIDEM TARTRATE Inactive POTASSIUM CHLORIDE CHELA ER 20 MEQ CR-TABS 1 tab PO daily POTASSIUM CHLORIDE CHELA ER 20 MEQ CR-TABS POTASSIUM CHLORIDE CHELA CR Inactive MIRALAX POWD 17 gms in 4 oz water or juice daily MIRALAX POWD 558853 POLYETHYLENE GLYCOL 3350 Inactive CVS VITAMIN C 500 MG TABS 1 po daily CVS VITAMIN C 500 MG TABS 971859 ASCORBIC ACID Inactive COZAAR 100 MG TABS 1 qd COZAAR 100 MG TABS 404075 LOSARTAN POTASSIUM Inactive ALLOPURINOL 300 MG TABS 1 qd ALLOPURINOL 300 MG TABS 466233 ALLOPURINOL Inactive BUDEPRION SR 150 MG [id number] 1 bid BUDEPRION SR 150 MG [id number] BUPROPION HCL Inactive DILANTIN 100 MG CAPS 3 cap tid DILANTIN 100 MG CAPS 366705 PHENYTOIN SODIUM EXTENDED Inactive HYDROCODONE-ACETAMINOPHEN 7.5-325 MG TABS 1 q 6 hrs prn HYDROCODONE-ACETAMINOPHEN 7.5-325 MG TABS 263246 HYDROCODONE- ACETAMINOPHEN Inactive GABAPENTIN 300 MG CAPS 1 CAP PO TID GABAPENTIN 300 MG CAPS 401995 GABAPENTIN Inactive GABAPENTIN 400 MG ORAL CAPS 1 TAB BY MOUTH THREE TIMES DAILY 2015 GABAPENTIN 400 MG ORAL CAPS 573695 GABAPENTIN Inactive METOPROLOL TARTRATE 50 MG ORAL TABS 1 TAB BY MOUTH TWICE DAILY METOPROLOL TARTRATE 50 MG ORAL TABS 124229 METOPROLOL TARTRATE Inactive ZYLOPRIM 300 MG TAB 1 BY MOUTH DAILY ZYLOPRIM 300 MG TAB 454735 ALLOPURINOL Inactive MECLIZINE HCL 25 MG CHEW TAB 1 four times a day as needed for dizziness 02/21 MECLIZINE HCL 25 MG CHEW TAB 884364 MECLIZINE HCL Inactive ATIVAN 0.5 MG TABS Take 1 tablet 2x daily PRN ATIVAN 0.5 MG TABS 463456 LORAZEPAM Inactive CELEXA 20 MG TABS Take 1 tablet 1x daily CELEXA 20 MG TABS 326440 CITALOPRAM HYDROBROMIDE Inactive ULORIC 40 MG ORAL TABS 1 daily for gout. ULORIC 40 MG ORAL TABS FEBUXOSTAT Inactive BUPROPION HCL ER (SR) 150 MG [id number] 1 twice a day for depression BUPROPION HCL ER (SR) 150 MG [id number] BUPROPION HCL Inactive MULTIVITAMINS CAPS 1 DAILY MULTIVITAMINS CAPS MULTIPLE VITAMIN Inactive NORCO 5-325 MG TABS 1-2 TAB Q 6 HRS PRN NORCO 5-325 MG TABS 293794 HYDROCODONE-ACETAMINOPHEN Inactive PHENYTOIN 50 MG CHEW 1 TAB PO BID PHENYTOIN 50 MG CHEW 1855512 PHENYTOIN Inactive FENTANYL 12 MCG/HR PT72 Apply to clean, dry skin and change every 72 hours FENTANYL 12 MCG/HR PT72 193002 FENTANYL Inactive FENTANYL 25 MCG/HR PT72 Apply to clean skin and change every 72 hours. 07/03 FENTANYL 25 MCG/HR PT72 552269 FENTANYL Inactive Advance Directives Directive Description Start [...] Yes Encounters Code Encounter Date Provider Facility CPT-51918 Level 4 Est. Patient 10:04:48 WEB DEVELOPMENT MANAGER Jonel Hemphill MD [facility] CPT-50170 Level 3 Est. Patient 19:05:03 CDT Jonel Hemphill MD [facility] CPT-78030 Level 3 Est. Patient 17:30:47 CDT Kevin Link MD [facility] CPT-49152 Level 3 Est. Patient 18:04:07 CDT Jonel Hemphill MD [facility] CPT-08630 Level 3 Est. Patient 17:18:03 CDT Jonel Hemphill MD [facility] CPT-96466 Level 3 Est. Patient 21:58:03 WEB DEVELOPMENT MANAGER Jonel Hemphill MD [facility] CPT-52899 Level 4 Est. Patient 18:03:[address] [facility]-62654 Level 4 Est. Patient 13:24:[address] [facility]-97587 Level 4 Est. Patient 09:15:[address] [facility]-43826 Level 4 Est. Patient 19:16:01 CDT Jonel [facility] CPT-50078 Level 4 Est. Patient 11:25:16 CDT oJnel Hemphill MD [facility] CPT-35930 Level 4 Est. Patient 09:00:[address] [facility]-59366 Level 4 Est. Patient 14:53:58 CDT Jonel Hemphill MD [facility] CPT-85399 Level 4 Est. Patient 22:59:01 CDT Jonel Hemphill MD [facility]-21366 Level 4 Est. Patient 09:29:57 CDT Jonel Hemphill MD [facility]-98506 Level 4 Est. Patient 12:35:53 WEB DEVELOPMENT MANAGER Jonel Hemphill MD [facility]-33767 Level 4 Est. Patient 22:36:09 WEB DEVELOPMENT MANAGER Joenl Hemphill MD [facility]-52246 Level 2 Est. Patient 15:14:15 WEB DEVELOPMENT MANAGER Mayco Shah APRN [facility] CPT-70377 Level 4 Est. Patient 10:36:22 WEB DEVELOPMENT MANAGER Jonel Hemphill MD [facility] CPT-97581 Level 4 Est. Patient 22:01:13 WEB DEVELOPMENT MANAGER Jonel Hemphill MD [facility]-85934 Level 3 Est. Patient 21:50:37 WEB DEVELOPMENT MANAGER Jonel Hemphill MD [facility] CPT-47909 Level 4 Est. Patient 15:02:43 CDT Rubin Pierre MD [facility] CPT-92892 Level 4 Est. Patient 14:27:35 CDT Jonel Hemphill MD [facility]-85270 Level 4 Est. Patient 12:41:17 CDT Jonel Hemphill MD [facility]-32270 Level 4 Est. Patient 16:18:55 CDT Jonel Hemphill MD [facility]-85976 Level 4 Est. Patient 17:58:05 CDT Jonel Hemphill MD [facility]-83735 Level 4 Est. Patient 22:10:06 CDT Jonel Hemphill MD [facility]-42170 Level 4 Est. Patient 13:22:09 CDT Jonel Hemphill MD [facility]-79661 Level 4 Est. Patient 22:52:17 WEB DEVELOPMENT MANAGER Jonel Hemphill MD [facility] CPT-58226 Level 3 Est. Patient 22:34:10 WEB DEVELOPMENT MANAGER Jonel Hemphill MD [facility] CPT-48686 Level 4 Est. Patient 07:49:20 WEB DEVELOPMENT MANAGER Jonel Hemphill MD [facility] Skilled CPT-12797 Level 3 Est. Patient 08:28:27 WEB DEVELOPMENT MANAGER Jonel Hemphill MD [facility] Procedures Code Procedure Name Date Entry Date Standard Description CPT-30032 Level 3 Group Home 21:14:15 WEB DEVELOPMENT MANAGER CPT-41240 Level 3 Group Home 15:38:24 CDT CPT-55091 Level 3 Group Home 08:18:30 CDT CPT-44873 Level 3 Group Home 19:03:14 CDT CPT-10264 Level 3 Group Home 17:42:11 CDT CPT-22008 Level 3 Group Home 16:04:10 CDT CPT-29529 Level 3 Group Home 19:38:15 WEB DEVELOPMENT MANAGER CPT-61099 Level 3 Group Home 19:28:48 WEB DEVELOPMENT MANAGER CPT-60015 Level 3 Group Home 18:02:20 WEB DEVELOPMENT MANAGER CPT-01447 Level 3 Group Home 15:02:14 WEB DEVELOPMENT MANAGER CPT-88190 Level 3 Group Home 12:25:37 CDT CPT-07118 Level 3 Group Home 12:48:39 CDT CPT-76786 Level 3 Group Home 17:39:14 CDT CPT-62998 Level 3 Group Home 13:32:58 CDT CPT-74282 Level 3 Group Home 17:43:43 CDT CPT-01769 Level 3 Group Home 12:03:33 WEB DEVELOPMENT MANAGER CPT-62154 Level 3 Group Home 18:47:28 WEB DEVELOPMENT MANAGER CPT-18730 Level 3 Group Home 17:35:26 WEB DEVELOPMENT MANAGER CPT-92185 Level 3 Group Home 18:44:49 WEB DEVELOPMENT MANAGER CPT-01904 Level 3 Group Home 18:17:33 CDT CPT-01725 Level 3 Group Home 09:25:33 CDT CPT-94226 Level 3 Group Home 19:11:57 CDT CPT-15782 Level 3 Group Home 09:25:52 CDT CPT-80457 Level 3 Group Home 14:23:59 CDT CPT-91527 Level 3 Group Home 12:09:43 CDT CPT-79279 Level 3 Group Home 09:37:40 CDT CPT-44887 Level 3 Group Home 18:23:02 CDT CPT-11776 Level 3 Group Home 14:09:06 CDT CPT-51660 Level 3 Group Home 12:43:27 WEB DEVELOPMENT MANAGER CPT-56223 Postop F/U Visit 14:10:15 WEB DEVELOPMENT MANAGER CPT-58436 [facility] 17:07:14 WEB DEVELOPMENT MANAGER CPT-50152 Level 3 Group Home 16:14:37 WEB DEVELOPMENT MANAGER CPT-88802 Port a cath flush 11:47:42 CDT CPT-64028 Port a cath flush 08:29:49 CDT CPT-OV Office Visit 14:27:58 WEB DEVELOPMENT MANAGER
--- OUTSIDE RECORDS SUMMARY | 2016-08-07 11:09 | XMS REPORT | Clinical Summary ---
Author Author Admin, [place] Organization [facility] Address Unknown Phone Unavailable Allergies, Adverse Reactions, Alerts Allergy Name Reaction Description Start Date Severity Status Provider PENICILLIN Critical Active [place]jaida Giles, RMA Conditions or Problems Problem Name 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, MATERIAL LIAISON V58.69 Resolved Jonel Hemphill MD Long-term (current) [...] Coronary atherosclerosis of unspecified type of vessel, levelock or graft FH DIABETES V18.0 Resolved Jonel [...] Coronary atherosclerosis of unspecified type of vessel, levelock or graft CONSTIPATION 564.00 Resolved Jonel Hemphill [...] MD Hyperpotassemia POTASSIUM DEFICIENCY 276.8 Resolved Jonel Hemphlil MD Hypopotassemia LOOSE STOOLS 787.91 Resolved Jonel [...] Obstructive sleep apnea (adult) (pediatric) 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 USE, MATERIAL LIAISON ICD-V58.69 Inactive Jonel Hemphill MD DIABETES, TYPE [...] skin and change every 72 hours FENTANYL 26521846087 Active Jonel Hemphill MD Active MIRALAX POWD 17 gms in 4 oz water or juice daily POLYETHYLENE GLYCOL 3350 77961082380 Active Jonel Hemphill MD Active CVS MELATONIN 3 MG ORAL TABS 2 tabs at hs MELATONIN 25104974037 Active Jonel Hemphill MD Active MAGNESIUM GLUCONATE 500 MG ORAL TABS 1 tab twice daily MAGNESIUM GLUCONATE 32763696041 Active Jonel Hemphill MD Active OMEPRAZOLE 20 MG CPDR 1 tablet by mouth daily OMEPRAZOLE 09989853940 Active Jonel Hemphill MD Active DIGOXIN 125 MCG ORAL TABS 1 daily DIGOXIN 64979926217 Active Jonel Hemphill MD Active DILTIAZEM CD 240 MG ORAL [id number] 1 daily DILTIAZEM HCL COATED BEADS 52641049434 Active Jonel Hemphill MD Active NOVOLOG 100 UNIT/ML SC SOLN 70-140=0U 141-180=2 U 181-220=4U 221-260=6U 261- 300=8U 301-340=10U 507=588=45Z 381-400=14U INSULIN ASPART 56528535349 Active Jonel Hemphill MD Active ACETAMINOPHEN 325 MG ORAL TABS 1 tab by mouth every 4 hours as needed ACETAMINOPHEN 59044500609 Active Jonel Hemphill MD Active FENTANYL 12 MCG/HR PT72 Apply to clean, dry skin and change every 72 hours FENTANYL 21816933141 No Longer Active Jonel Hemphill MD Active PHENYTOIN 50 MG CHEW 1 TAB PO BID PHENYTOIN 17969414399 No Longer Active Jonel eHmphill MD Active NORCO 5-325 MG TABS 1-2 TAB Q 6 HRS PRN HYDROCODONE- ACETAMINOPHEN 38213646034 No Longer Active Jonel Hemphill MD Active MULTIVITAMINS CAPS 1 DAILY MULTIPLE VITAMIN 93998939429 No Longer Active Jonel Hemphill MD Active BUPROPION HCL ER (SR) 150 MG [id number] 1 twice a day for depression BUPROPION HCL 14198296132 No Longer Active Jonel Hemphill MD Active LISINOPRIL 20 MG TABS 1 tablet by mouth daily LISINOPRIL 13984045854 Active Jonel Hemphill MD Active ULORIC 40 MG ORAL TABS 1 daily for gout. FEBUXOSTAT 08672992288 No Longer Active Jonel Hemphill MD Active CELEXA 20 MG TABS 1 tablet by mouth daily CITALOPRAM HYDROBROMIDE 17013615222 Active Marleni Raida Active ZOFRAN 4 MG TABS 1 po q6hr PRN [place]a ONDANSETRON HCL 37392699322 Active Jonel Hemphill MD Active XARELTO 20 MG ORAL TABS 1 daily RIVAROXABAN 84913691257 Active Jonel Hemphill MD Active JANUVIA 100 MG ORAL TABS 2 tabs daily SITAGLIPTIN PHOSPHATE 64050427767 Active Jonel Hemphill MD Active CELEXA 20 MG TABS Take 1 tablet 1x daily CITALOPRAM HYDROBROMIDE 93229672382 No Longer Active Jonel Hemphill MD Active ATIVAN 0.5 MG TABS Take 1 tablet 2x daily PRN LORAZEPAM 75341462855 No Longer Active Jonel Hemphill MD Active FUROSEMIDE 80 MG ORAL TABS 1 daily FUROSEMIDE 49614924088 Active Jonel Hemphill MD Active MECLIZINE HCL 25 MG CHEW TAB 1 four times a day as needed for dizziness 02/21 MECLIZINE HCL 88113467937 No Longer Active Jonel Hemphill MD Active ZYLOPRIM 300 MG TAB 1 BY MOUTH DAILY ALLOPURINOL 08772737081 No Longer Active Jonel Hemphill MD Active METOPROLOL TARTRATE 50 MG ORAL TABS 1 TAB BY MOUTH TWICE DAILY METOPROLOL TARTRATE 83389402678 No Longer Active Jonel Hemphill MD Active GABAPENTIN 400 MG ORAL CAPS 1 TAB BY MOUTH THREE TIMES DAILY 2015 GABAPENTIN 73697969759 No Longer Active Jonel Hemphill MD Active HYDROCODONE-ACETAMINOPHEN 7.5-325 MG TABS 1 TAB PO Q 6 HRS PRN HYDROCODONE-ACETAMINOPHEN 97005134028 Active Jonel Hemphill MD Active METFORMIN HCL 1000 MG TABS 1 tablet by mouth twice daily METFORMIN HCL 52773803956 Active Marleni Romero Active KLOR-CON 20 MEQ ORAL PACK 1 BY MOUTH DAILY POTASSIUM CHLORIDE 74238447917 Active Marleni Romero Active A+D FIRST AID EXT OINT APPLY OINTMENT AND RUFINO WRAPS TO LOWER EXTEREMETIES DAILY SKIN PROTECTANTS, MISC. 10452540271 Active Jonel Hemphill MD Active NYSTATIN 902396 UNIT/GM EXT OINT APPLY PRN TID TO GAULDING/RASH IN ABDOMINAL FOLDS NYSTATIN 45738899581 Active Jonel Hepmhill MD Active GABAPENTIN 300 MG CAPS 1 CAP PO TID GABAPENTIN 07557588260 No Longer Active Jonel Hemphill MD Active DILANTIN 100 MG ORAL CAPS 1 THREE TIMES DAILY FOR SEIZURES PHENYTOIN SODIUM EXTENDED 83097562130 Active Marleni Romero Active CPAP APPLY AT HS CPAP Active Jonel Hemphill MD Active HYDROCODONE-ACETAMINOPHEN 7.5-325 MG TABS 1 q 6 hrs prn HYDROCODONE-ACETAMINOPHEN 90284921470 No Longer Active Jonel Hemphill MD Active DILANTIN 100 MG CAPS 3 cap tid PHENYTOIN SODIUM EXTENDED 24144690727 No Longer Active Jonel Hemphill MD Active BUDEPRION SR 150 MG [id number] 1 bid BUPROPION HCL 94199116324 No Longer Active Jonel Hemphill MD Active ALLOPURINOL 300 MG TABS 1 qd ALLOPURINOL 13277005080 No Longer Active Jonel Hemphill MD Active COZAAR 100 MG TABS 1 qd LOSARTAN POTASSIUM 07569523929 No Longer Active Jonel Hemphill MD Active CVS VITAMIN C 500 MG TABS 1 po daily ASCORBIC ACID 76096680802 No Longer Active Jonel Hemphill MD Active MIRALAX POWD 17 gms in 4 oz water or juice daily POLYETHYLENE GLYCOL 3350 35057565546 No Longer Active Jonel Hemphill MD Active POTASSIUM CHLORIDE CHELA ER 20 MEQ CR-TABS 1 tab PO daily POTASSIUM CHLORIDE CHELA CR 11353537359 No Longer Active Jonel Hemphill MD Active AMBIEN 10 MG TAB 1 tab by mouth at bedtime as needed for sleep ZOLPIDEM TARTRATE 92493324786 No Longer Active Jonel Hemphill MD Active SULFAMETHOXAZOLE-TMP DS 800-160 MG TABS 1 TAB PO BID SULFAMETHOXAZOLE-TRIMETHOPRIM 50032590497 No Longer Active Jonel Hemphill MD Active LEVEMIR 100 UNIT/ML SOLN 5 units sub-q at bedtime INSULIN DETEMIR 56108727598 No Longer Active Tova Perez Active MOBIC 15 MG TABS 1 tab PO daily for arthritis pain MELOXICAM 08713460843 No Longer Active Tova Perez Active GLUCAGEN 1 MG SOLR INJECT 1MG IM IF BS LESS THAN 60 & RES. IS UNABLE TO SWALLOW GLUCAGON HCL (RDNA) 78450272523 No Longer Active Tova Perez Active CVS MILK OF MAGNESIA 1200 MG/15ML SUSP 30 ml daily for constipation MAGNESIUM HYDROXIDE 84425291214 No Longer Active Tova Perez Active IMDUR 120 MG [id number] 1 qd ISOSORBIDE MONONITRATE 21473855253 No Longer Active Tova Perez Active NEURONTIN 400 MG CAPS Take one by mouth 3 times daily, morning, afternoon and evening.] GABAPENTIN 96738016186 No Longer Active Tova Perez Active ANTIVERT 25 MG TABS 1 q 6 hrs prn MECLIZINE HCL 30585217426 No Longer Active Jonel Hemphill MD Active CLONIDINE HCL 0.2 MG TABS 1 q 8 hrs as needed -greater than 160-htn CLONIDINE HCL 87833648704 No Longer Active Jonel Hemphill MD Active AMBIEN 10 MG TABS 1 q hs prn ZOLPIDEM TARTRATE 87641536414 No Longer Active Jonel Hemphill MD Active GNP THERAPEUTIC-M TABS 1 qd MULTIPLE VITAMINS- MINERALS 48936749214 No Longer Active Jonel Hemphill MD Active METOPROLOL TARTRATE 50 MG TABS 1 bid METOPROLOL TARTRATE 80545855200 No Longer Active Jonel Hemphill MD Active METFORMIN HCL 500 MG TABS 1 bod with food METFORMIN HCL 68122878817 No Longer Active Jonel Hemphill MD Active LISINOPRIL 40 MG TABS 1 qd LISINOPRIL 54995579567 No Longer Active Jonel Hemphill MD Active HYDROCHLOROTHIAZIDE 25 MG TABS 1 qd HYDROCHLOROTHIAZIDE 11157448934 No Longer Active Jonel Hemphill MD Active DURAGESIC-25 25 MCG/HR PT72 place 1 patch on the skin q72hrs for pain FENTANYL 92563392074 No Longer Active Jonel Hemphill MD Active FENTANYL 75 MCG/HR PT72 place 1 patch on skin q72hrs fr pain 2012 FENTANYL 67093170315 No Longer Active Jonel Hemphill MD Active FUROSEMIDE 40 MG TABS 1 q am FUROSEMIDE 27572316153 No Longer Active Jonel Hemphill MD Active HEPARIN (PORCINE) LOCK FLUSH 100 UNIT/ML SOLN Flush port a cath monthly every three week on with Heparin and NS HEPARIN LOCK FLUSH 88772572716 Active Jonel Hemphill MD Active FENTANYL 100 MCG/HR PT72 Apply every 3 days FENTANYL 47547853864 Active Jonel Hemphill MD Active FENTANYL 25 MCG/HR PT72 Apply to clean skin and change every 72 hours. 07/03 FENTANYL 49553224774 No Longer Active Jonel Hemphill MD Active FENTANYL 50 MCG/HR PT72 place 1 patch on skin q72 hours FENTANYL 89429805975 No Longer Active Mayco Shah APRN Active DURAGESIC-12 12 MCG/HR PT72 APPLY PATCH TO SKIN AND CHANGE EVERY 72 HOURS, ROTATE SITES FENTANYL 04285070334 No Longer Active Fozia HERNANDEZ Active FUROSEMIDE 20 MG TABS 1 qd FUROSEMIDE 20924787013 No Longer Active Mahogany [place] Active ADULT ASPIRIN EC LOW STRENGTH 81 MG TBEC 1 qd ASPIRIN 83908239377 Active MARY Perez Active ALLOPURINOL 300 MG TABS 1 qd ALLOPURINOL 300 MG TABS 208049 ALLOPURINOL Inactive AMBIEN 10 MG TAB 1 tab by mouth at bedtime as needed for sleep AMBIEN 10 MG TAB 281492 ZOLPIDEM TARTRATE Inactive AMBIEN 10 MG TABS 1 q hs prn AMBIEN 10 MG TABS 433149 ZOLPIDEM TARTRATE Inactive ANTIVERT 25 MG TABS 1 q 6 hrs prn ANTIVERT 25 MG TABS MECLIZINE HCL Inactive ATIVAN 0.5 MG TABS Take 1 tablet 2x daily PRN ATIVAN 0.5 MG TABS 526341 LORAZEPAM Inactive CLONIDINE HCL 0.2 MG TABS 1 q 8 hrs as needed -greater than 160-htn CLONIDINE HCL 0.2 MG TABS 985500 CLONIDINE HCL Inactive DILANTIN 100 MG CAPS 3 cap tid DILANTIN 100 MG CAPS 576697 PHENYTOIN SODIUM EXTENDED Inactive DURAGESIC-25 25 MCG/HR PT72 place 1 patch on the skin q72hrs for pain DURAGESIC-25 25 MCG/HR PT72 303349 FENTANYL Inactive FUROSEMIDE 20 MG TABS 1 qd FUROSEMIDE 20 MG TABS 048358 FUROSEMIDE Inactive FUROSEMIDE 40 MG TABS 1 q am FUROSEMIDE 40 MG TABS 687438 FUROSEMIDE Inactive HYDROCHLOROTHIAZIDE 25 MG TABS 1 qd HYDROCHLOROTHIAZIDE 25 MG TABS 619032 HYDROCHLOROTHIAZIDE Inactive MECLIZINE HCL 25 MG CHEW TAB 1 four times a day as needed for dizziness 02/21 MECLIZINE HCL 25 MG CHEW TAB 639710 MECLIZINE HCL Inactive METOPROLOL TARTRATE 50 MG ORAL TABS 1 TAB BY MOUTH TWICE DAILY METOPROLOL TARTRATE 50 MG ORAL TABS 859705 METOPROLOL TARTRATE Inactive METOPROLOL TARTRATE 50 MG TABS 1 bid METOPROLOL TARTRATE 50 MG TABS 655190 METOPROLOL TARTRATE Inactive MULTIVITAMINS CAPS 1 DAILY MULTIVITAMINS CAPS MULTIPLE VITAMIN Inactive ZYLOPRIM 300 MG TAB 1 BY MOUTH DAILY ZYLOPRIM 300 MG TAB 354451 ALLOPURINOL Inactive LISINOPRIL 40 MG TABS 1 qd LISINOPRIL 40 MG TABS 083103 LISINOPRIL Inactive METFORMIN HCL 500 MG TABS 1 bod with food METFORMIN HCL 500 MG TABS 155306 METFORMIN HCL Inactive PHENYTOIN 50 MG CHEW 1 TAB PO BID PHENYTOIN 50 MG CHEW 8097171 PHENYTOIN Inactive SULFAMETHOXAZOLE-TMP DS 800-160 MG TABS 1 TAB PO BID SULFAMETHOXAZOLE-TMP DS 800-160 MG TABS 188157 SULFAMETHOXAZOLE-TRIMETHOPRIM Inactive NEURONTIN 400 MG CAPS Take one by mouth 3 times daily, morning, afternoon and evening.] NEURONTIN 400 MG CAPS 930748 GABAPENTIN Inactive IMDUR 120 MG [id number] 1 qd IMDUR 120 MG [id number] ISOSORBIDE MONONITRATE Inactive GABAPENTIN 400 MG ORAL CAPS 1 TAB BY MOUTH THREE TIMES DAILY 2015 GABAPENTIN 400 MG ORAL CAPS 244477 GABAPENTIN Inactive GABAPENTIN 300 MG CAPS 1 CAP PO TID GABAPENTIN 300 MG CAPS 964525 GABAPENTIN Inactive CELEXA 20 MG TABS Take 1 tablet 1x daily CELEXA 20 MG TABS 391214 CITALOPRAM HYDROBROMIDE Inactive COZAAR 100 MG TABS 1 qd COZAAR 100 MG TABS 838631 LOSARTAN POTASSIUM Inactive MIRALAX POWD 17 gms in 4 oz water or juice daily MIRALAX POWD 125609 POLYETHYLENE GLYCOL 3350 Inactive GLUCAGEN 1 MG SOLR INJECT 1MG IM IF BS LESS THAN 60 & RES. IS UNABLE TO SWALLOW GLUCAGEN 1 MG SOLR GLUCAGON HCL (RDNA) Inactive FENTANYL 25 MCG/HR PT72 Apply to clean skin and change every 72 hours. 07/03 FENTANYL 25 MCG/HR PT72 968849 FENTANYL Inactive FENTANYL 50 MCG/HR PT72 place 1 patch on skin q72 hours FENTANYL 50 MCG/HR PT72 004469 FENTANYL Inactive FENTANYL 75 MCG/HR PT72 place 1 patch on skin q72hrs fr pain 2012 FENTANYL 75 MCG/HR PT72 467410 FENTANYL Inactive CVS VITAMIN C 500 MG TABS 1 po daily CVS VITAMIN C 500 MG TABS 479197 ASCORBIC ACID Inactive MOBIC 15 MG TABS 1 tab PO daily for arthritis pain MOBIC 15 MG TABS 934909 MELOXICAM Inactive NORCO 5-325 MG TABS 1-2 TAB Q 6 HRS PRN NORCO 5-325 MG TABS 657218 HYDROCODONE-ACETAMINOPHEN Inactive HYDROCODONE-ACETAMINOPHEN 7.5-325 MG TABS 1 q 6 hrs prn HYDROCODONE-ACETAMINOPHEN 7.5-325 MG TABS 249561 HYDROCODONE- ACETAMINOPHEN Inactive POTASSIUM CHLORIDE CHELA ER 20 MEQ CR-TABS 1 tab PO daily POTASSIUM CHLORIDE CHELA ER 20 MEQ CR-TABS POTASSIUM CHLORIDE CHELA CR Inactive BUPROPION HCL ER (SR) 150 MG [id number] 1 twice a day for depression BUPROPION HCL ER (SR) 150 MG [id number] BUPROPION HCL Inactive BUDEPRION SR 150 MG [id number] 1 bid BUDEPRION SR 150 MG PC61C-ULH BUPROPION HCL Inactive DURAGESIC-12 12 MCG/HR PT72 APPLY PATCH TO SKIN AND CHANGE EVERY 72 HOURS, ROTATE SITES DURAGESIC-12 12 MCG/HR PT72 007037 FENTANYL Inactive FENTANYL 12 MCG/HR PT72 Apply to clean, dry skin and change every 72 hours FENTANYL 12 MCG/HR PT72 335394 FENTANYL Inactive LEVEMIR 100 UNIT/ML SOLN 5 units sub-q at bedtime LEVEMIR 100 UNIT/ML SOLN INSULIN DETEMIR Inactive ULORIC 40 MG ORAL TABS 1 daily for gout. ULORIC 40 MG ORAL TABS FEBUXOSTAT Inactive CVS MILK OF MAGNESIA 1200 MG/15ML SUSP 30 ml daily for constipation CVS MILK OF MAGNESIA 1200 MG/15ML SUSP MAGNESIUM HYDROXIDE Inactive GNP THERAPEUTIC-M TABS 1 qd GNP THERAPEUTIC-M TABS MULTIPLE VITAMINS-MINERALS Inactive Advance Directives Directive Description Start Date [...] mg/dL Encounters Code Encounter Date Provider Facility CPT-10635 Level 4 Est. Patient 10:04:48 [employer] COVERAGE SPECIALIST Jonel Hemphill MD [facility] CPT-49274 Level 3 Est. Patient 19:05:03 CDT Jonel Hemphill MD [facility] CPT-54871 Level 3 Est. Patient 17:30:47 CDT Kevin Link MD [facility]-14183 Level 3 Est. Patient 18:04:07 CDT Jonel Hemphill MD [facility] CPT-01206 Level 3 Est. Patient 17:18:03 CDT Jonel Hemphill MD [facility] CPT-52333 Level 3 Est. Patient 21:58:03 NATIONAL COVERAGE SPECIALIST Jonel Hemphill MD [facility] CPT-31692 Level 4 Est. Patient 18:03:14 CDT Jonel Hemphill MD [facility]-87263 Level 4 Est. Patient 13:24:53 CDT Jonel Hemphill MD [facility]-64620 Level 4 Est. Patient 09:15:44 CDT Jonel Hemphill MD [facility]-96884 Level 4 Est. Patient 19:16:01 CDT Jonel Hemphill MD [facility]-25585 Level 4 Est. Patient 11:25:16 CDT Jonel Hemphill MD [facility] CPT-19132 Level 4 Est. Patient 09:00:40 CDT Jonel Hemphill MD [facility]-47689 Level 4 Est. Patient 14:53:58 CDT Jonel Hemphill MD [facility] CPT-09386 Level 4 Est. Patient 22:59:01 CDT Jonel Hemphill MD [facility]-97363 Level 4 Est. Patient 09:29:57 CDT Jonel Hemphill MD [facility]-71005 Level 4 Est. Patient 12:35:53 N[employer] COVERAGE SPECIALIST Jonel Hemphill MD [facility]-25418 Level 4 Est. Patient 22:36:09 N[employer] COVERAGE SPECIALIST Jonel Hemphill MD [facility]-84635 Level 2 Est. Patient 15:14:15 NATIONAL COVERAGE SPECIALIST Mayco Shah APRN [facility] CPT-71767 Level 4 Est. Patient 10:36:22 NATIONAL COVERAGE SPECIALIST Jonel Hemphill MD [facility] CPT-95084 Level 4 Est. Patient 22:01:13 NATIONAL COVERAGE SPECIALIST Jonel Hemphill MD [facility]-38608 Level 3 Est. Patient 21:50:37 NATIONAL COVERAGE SPECIALIST Jonel Hemphill MD [facility] CPT-83422 Level 4 Est. Patient 15:02:43 CDT Rubin Pierre MD [facility]-32670 Level 4 Est. Patient 14:27:35 CDT Jonel Hemphlil MD [facility]-88375 Level 4 Est. Patient 12:41:17 CDT Jonel Hemphill MD [facility]-84524 Level 4 Est. Patient 16:18:55 CDT Jonel Hemphill MD [facility]-70999 Level 4 Est. Patient 17:58:05 CDT Jonel Hemphill MD [facility]-04573 Level 4 Est. Patient 22:10:06 CDT Jonel Hemphill MD [facility]-97880 Level 4 Est. Patient 13:22:09 CDT Jonel Hemphill MD [facility]-25349 Level 4 Est. Patient 22:52:17 NATIONAL COVERAGE SPECIALIST Jonel Hemphill MD [facility]-16953 Level 3 Est. Patient 22:34:10 NATIONAL COVERAGE SPECIALIST Jonel Hemphill MD [facility]-74015 Level 4 Est. Patient 07:49:20 NATIONAL COVERAGE SPECIALIST Jonel Hemphill MD [facility] CPT-42401 Level 3 Est. Patient 08:28:27 NATIONAL COVERAGE SPECIALIST Jonel Hemphill MD [facility] Procedures Code Procedure Name Date Entry Date Standard Description CPT-33073 Level 3 Usp 21:14:15 NATIONAL COVERAGE SPECIALIST CPT-44486 Level 3 Usp 15:38:24 CDT CPT-87810 Level 3 Usp 08:18:30 CDT CPT-08447 Level 3 Usp 19:03:14 CDT CPT-45889 Level 3 Usp 17:42:11 CDT CPT-16603 Level 3 Usp 16:04:10 CDT CPT-15215 Level 3 Usp 19:38:15 NATIONAL COVERAGE SPECIALIST CPT-80152 Level 3 Usp 19:28:48 NATIONAL COVERAGE SPECIALIST CPT-81203 Level 3 Usp 18:02:20 NATIONAL COVERAGE SPECIALIST CPT-12828 Level 3 Usp 15:02:14 NATIONAL COVERAGE SPECIALIST CPT-67372 Level 3 Usp 12:25:37 CDT CPT-20059 Level 3 Usp 12:48:39 CDT CPT-24414 Level 3 Usp 17:39:14 CDT CPT-41716 Level 3 Usp 13:32:58 CDT CPT-53179 Level 3 Usp 17:43:43 CDT CPT-71028 Level 3 Usp 12:03:33 NATIONAL COVERAGE SPECIALIST CPT-75649 Level 3 Usp 18:47:28 NATIONAL COVERAGE SPECIALIST CPT-17556 Level 3 Usp 17:35:26 NATIONAL COVERAGE SPECIALIST CPT-74076 Level 3 Usp 18:44:49 NATIONAL COVERAGE SPECIALIST CPT-72517 Level 3 Usp 18:17:33 CDT CPT-03648 Level 3 Usp 09:25:33 CDT CPT-03901 Level 3 Usp 19:11:57 CDT CPT-64640 Level 3 Usp 09:25:52 CDT CPT-91141 Level 3 Usp 14:23:59 CDT CPT-82615 Level 3 Usp 12:09:43 CDT CPT-10663 Level 3 Usp 09:37:40 CDT CPT-25889 Level 3 Usp 18:23:02 CDT CPT-50975 Level 3 Usp 14:09:06 CDT CPT-90965 Level 3 Usp 12:43:27 NATIONAL COVERAGE SPECIALIST CPT-28659 Postop F/U Visit 14:10:15 NATIONAL COVERAGE SPECIALIST CPT-97858 [facility] Head and Neck 17:07:14 NATIONAL COVERAGE SPECIALIST CPT-24915 Level 3 Usp 16:14:37 NATIONAL COVERAGE SPECIALIST CPT-63054 Port a cath flush 11:47:42 CDT CPT-53252 Port a cath flush 08:29:49 CDT CPT-OV Office Visit 14:27:58 NATIONAL COVERAGE SPECIALIST
--- OUTSIDE RECORDS SUMMARY | 2016-08-07 11:09 | XMS REPORT ---
Author Author [facility] [employer] [facility] Medical Staff Organization [facility] Address [address] [place], [place] [address] Phone [phone] Care Team Providers Care Carding Supervisor Name Role Phone FRANKO PRIETO MD PP [phone] Summary purpose TRANSITION OF CARE AUTO GENERATION Chief Complaint and Reason for Visit No authorized Reason for Visit (Admitting Diagnosis) is available for this visit. Problem list No authorized problems tracked for continuity of care are available for this visit. Encounters No authorized problems tracked for encounter diagnoses are available for this visit. Medications No home medications recorded for this patient visit Allergies, adverse reactions, alerts Allergen Category Ingredient Status Reaction Severity Onset Penicillins Drug Allergy Penicillins Confirmed or Verified Immunizations No immunizations recorded for this patient visit Relevant diagnostic tests and/or laboratory data RESULTS Hematology [id number]:50:00 Result Normal Range Units WBC 7.5 4.8-10.8 103/uL RBC L 4.6 4.7-6.1 106/uL HGB 14.5 13.0-18.0 g/dl HCT 42.5 41.9-52.0 % MCV 92.8 80-94 FL MCH H 31.7 27-31 pg MCHC 34.1 33-37 g/dl RDW 14.0 11.5-15.5 % PLT L 128 130-400 103/uL MPV H 12.4 7.3-10.4 FL History of procedures No procedures [...]
--- OUTSIDE RECORDS SUMMARY | 2016-08-07 11:11 | XMS REPORT | Clinical Summary ---
Author Author Admin, [place] [facility] Address Unknown Phone Allergies, Adverse Reactions, Alerts Allergy Name Reaction Description Start Date Severity Status Provider PENICILLIN Critical Active [place] Conditions or Problems Problem Name Problem Code Onset Date Status Entry Date Provider Comment Standard Description Annotate DIABETES MELLITUS, TYPE II, CONTROLLED 250.00 Active Jonel Hemphill MD Diabetes mellitus without mention of complication, type II or unspecified type, not stated as uncontrolled MORBID OBESITY 278.01 Active Jonel Hemphill MD Morbid obesity HYPERTENSION 401.1 Active Jonel Hemphill MD Benign essential hypertension 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 USE, SKILLED NURSING V58.69 Resolved Jonel Hemphill MD Long-term (current) use of other medications C V A / STROKE 436 Active Gregor Tisha Acute, but ill- defined, cerebrovascular disease C O P D 496 Active [place] Tisha Chronic airway obstruction, not elsewhere classified DIABETES, TYPE 2 250.00 Resolved Jonel Hemphill MD Diabetes mellitus without mention of complication, type II or unspecified type, not stated as uncontrolled SEIZURE DISORDER 780.39 Active Gregor [place] Other convulsions CORONARY HEART DISEASE 414.00 Resolved Jonel Hemphill MD Coronary atherosclerosis of unspecified type of vessel, lac vieux or graft FH DIABETES V18.0 Resolved Jonel [...] Coronary atherosclerosis of unspecified type of vessel, lac vieux or graft CONSTIPATION 564.00 Resolved Jonel Hemphill [...] 466.0 Active Jonel Hemphill MD Acute bronchitis Foot pain, right 729.5 Active Jonel Hemphill MD Pain in limb 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 IS UNABLE TO SWALLOW GLUCAGON HCL (RDNA) 08593140138 No Longer Active Tova Perez Active [facility] MILK OF MAGNESIA 1200 MG/15ML SUSP 30 ml daily for constipation MAGNESIUM HYDROXIDE 20938057557 No Longer Active Tova Perez Active IMDUR 120 MG [id number] 1 qd ISOSORBIDE MONONITRATE 72502706123 No Longer Active Tova Perez Active METFORMIN HCL 500 MG TABS 1 tablet by mouth twice daily METFORMIN HCL 93882323123 Active Tova Chris Active SULFAMETHOXAZOLE-TMP DS 800-160 MG TABS 1 TAB PO BID SULFAMETHOXAZOLE-TRIMETHOPRIM 58988263238 Active Tova Chris Active PHENYTOIN 50 MG CHEW 1 TAB PO BID PHENYTOIN 20706723050 Active Tova Perez Active MECLIZINE HCL 25 MG CHEW TAB 1 four times a day as needed for dizziness 02/21 MECLIZINE HCL 47110318109 Active Tova Chris Active GABAPENTIN 300 MG CAPS 1 CAP PO TID GABAPENTIN 92504305816 Active Tova Chris Active NEURONTIN 400 MG CAPS Take one by mouth 3 times daily, morning, afternoon and evening.] GABAPENTIN 23126177365 No Longer Active Tova Chris Active AMBIEN 10 MG TAB 1 tab by mouth at bedtime as needed for sleep ZOLPIDEM TARTRATE 13728948559 Active Jonel Hemphill MD Active POTASSIUM CHLORIDE CHELA ER 20 MEQ CR-TABS 1 tab PO daily POTASSIUM CHLORIDE CHELA CR 52183284387 Active Jonel Hemphill MD Active ANTIVERT 25 MG TABS 1 q 6 hrs prn MECLIZINE HCL 70440243759 No Longer Active Jonel Hemphill MD Active CLONIDINE HCL 0.2 MG TABS 1 q 8 hrs as needed -greater than 160-htn CLONIDINE HCL 84485175745 No Longer Active Jonel Hemphill MD Active AMBIEN 10 MG TABS 1 q hs prn ZOLPIDEM TARTRATE 31544964271 No Longer Active Jonel Hemphill MD Active GNP THERAPEUTIC-M TABS 1 qd MULTIPLE VITAMINS- MINERALS 98668611079 No Longer Active Jonel Hemphill MD Active METOPROLOL TARTRATE 50 MG TABS 1 bid METOPROLOL TARTRATE 12248152031 No Longer Active Jonel Hemphill MD Active METFORMIN HCL 500 MG TABS 1 bod with food METFORMIN HCL 04865829840 No Longer Active Jonel Hemphill MD Active LISINOPRIL 40 MG TABS 1 qd LISINOPRIL 92923169187 No Longer Active Jonel Hemphill MD Active HYDROCHLOROTHIAZIDE 25 MG TABS 1 qd HYDROCHLOROTHIAZIDE 76513728999 No Longer Active Jonel Hemphill MD Active DURAGESIC-25 25 MCG/HR PT72 place 1 patch on the skin q72hrs for pain FENTANYL 43302317600 No Longer Active Jonel Hemphill MD Active FENTANYL 75 MCG/HR PT72 place 1 patch on skin q72hrs fr pain 2012 FENTANYL 20223247008 No Longer Active Jonel Hemphill MD Active LASIX 20 MG TABS 1 tab PO q morning FUROSEMIDE 18403201025 Active Jonel Hemphill MD Active FUROSEMIDE 40 MG TABS 1 q am FUROSEMIDE 94056753951 No Longer Active Jonel Hemphill MD Active HEPARIN (PORCINE) LOCK FLUSH 100 UNIT/ML SOLN Flush port a cath monthly every three week on with Heparin and NS HEPARIN LOCK FLUSH 43354320028 Active Jonel Hemphill MD Active FENTANYL 100 MCG/HR PT72 Apply every 3 days FENTANYL 02503028956 Active Jonel Hemphill MD Active FENTANYL 25 MCG/HR PT72 Apply to clean skin and change every 72 hours. 07/03 FENTANYL 95368049111 No Longer Active Jonel Hemphill MD Active FENTANYL 50 MCG/HR PT72 place 1 patch on skin q72 hours FENTANYL 44443963335 No Longer Active Mayco Shah APRN Active HYDROCODONE-ACETAMINOPHEN 7.5-325 MG TABS 1 q 6 hrs prn HYDROCODONE-ACETAMINOPHEN 95277702884 Active Jonel Hemphill MD Active ATIVAN 0.5 MG TABS Take 1 tablet 2x daily LORAZEPAM 81002244918 Active Jonel Hemphill MD Active CELEXA 20 MG TABS Take 1 tablet 1x daily CITALOPRAM HYDROBROMIDE 88903223928 Active Jonel Hemphill MD Active MIRALAX POWD 17 gms in 4 oz water or juice daily POLYETHYLENE GLYCOL 3350 04068462034 Active Rubin Pierre MD Active DURAGESIC-12 12 MCG/HR PT72 APPLY PATCH TO SKIN AND CHANGE EVERY 72 HOURS, ROTATE SITES FENTANYL 84203450996 No Longer Active Fozia Amador TREYA Active [facility] VITAMIN C 500 MG TABS 1 po daily ASCORBIC ACID 63265493839 Active [place] Active FUROSEMIDE 20 MG TABS 1 qd FUROSEMIDE 50067401764 No Longer Active [place] Active ADULT ASPIRIN EC LOW STRENGTH 81 MG TBEC 1 qd ASPIRIN 28169098548 Active Gregor Giles Active DILANTIN 100 MG CAPS 3 cap tid PHENYTOIN SODIUM EXTENDED 36215996504 Active Gregor Giles Active BUDEPRION SR 150 MG [id number] 1 bid BUPROPION HCL 74114328262 Active Gregor Giles Active ALLOPURINOL 300 MG TABS 1 qd ALLOPURINOL 57265813171 Active Gregor Giles Active COZAAR 100 MG TABS 1 qd LOSARTAN POTASSIUM 14176217178 Active Gregor Giles Active FUROSEMIDE 20 MG TABS 1 qd FUROSEMIDE 20 MG TABS 886862 FUROSEMIDE Inactive DURAGESIC-12 12 MCG/HR PT72 APPLY PATCH TO SKIN AND CHANGE EVERY 72 HOURS, ROTATE SITES DURAGESIC-12 12 MCG/HR PT72 178855 FENTANYL Inactive FENTANYL 50 MCG/HR PT72 place 1 patch on skin q72 hours FENTANYL 50 MCG/HR PT72 807826 FENTANYL Inactive FUROSEMIDE 40 MG TABS 1 q am FUROSEMIDE 40 MG TABS 686394 FUROSEMIDE Inactive FENTANYL 75 MCG/HR PT72 place 1 patch on skin q72hrs fr pain 2012 FENTANYL 75 MCG/HR PT72 701144 FENTANYL Inactive DURAGESIC-25 25 MCG/HR PT72 place 1 patch on the skin q72hrs for pain DURAGESIC-25 25 MCG/HR PT72 526613 FENTANYL Inactive HYDROCHLOROTHIAZIDE 25 MG TABS 1 qd HYDROCHLOROTHIAZIDE 25 MG TABS 937666 HYDROCHLOROTHIAZIDE Inactive LISINOPRIL 40 MG TABS 1 qd LISINOPRIL 40 MG TABS 343849 LISINOPRIL Inactive METFORMIN HCL 500 MG TABS 1 bod with food METFORMIN HCL 500 MG TABS 298011 METFORMIN HCL Inactive METOPROLOL TARTRATE 50 MG TABS 1 bid METOPROLOL TARTRATE 50 MG TABS 715330 METOPROLOL TARTRATE Inactive GNP THERAPEUTIC-M TABS 1 qd GNP THERAPEUTIC-M TABS MULTIPLE VITAMINS-MINERALS Inactive AMBIEN 10 MG TABS 1 q hs prn AMBIEN 10 MG TABS 720458 ZOLPIDEM TARTRATE Inactive CLONIDINE HCL 0.2 MG TABS 1 q 8 hrs as needed -greater than 160-htn CLONIDINE HCL 0.2 MG TABS 911267 CLONIDINE HCL Inactive ANTIVERT 25 MG TABS 1 q 6 hrs prn ANTIVERT 25 MG TABS MECLIZINE HCL Inactive NEURONTIN 400 MG CAPS Take one by mouth 3 times daily, morning, afternoon and evening.] NEURONTIN 400 MG CAPS 145706 GABAPENTIN Inactive IMDUR 120 MG [id number] 1 qd IMDUR 120 MG [id number] ISOSORBIDE MONONITRATE Inactive [facility] MILK OF MAGNESIA [...] for arthritis pain MOBIC 15 MG TABS 235001 MELOXICAM Inactive LEVEMIR 100 UNIT/ML SOLN 5 units sub-q at bedtime LEVEMIR 100 UNIT/ML SOLN INSULIN DETEMIR Inactive FENTANYL 25 MCG/HR PT72 Apply to clean skin and change every 72 hours. 07/03 FENTANYL 25 MCG/HR PT72 302390 FENTANYL Inactive Advance Directives Directive Description Start Date ADVANCE DIRECTIVE Immunizations Vaccine Administration Date Value Standard Description influenza immunization (Flu Vax) has been administered Influenza - Unspecified Formulation [CVX88] influenza virus vaccine, unspecified formulation pneumococcal immunization administered Pneumovax 23 [CVX33] pneumococcal polysaccharide vaccine, 23 valent Vital Signs Date Name Value Unit Range Description blood pressure, diastolic 80 mm[Hg] BP augustin blood pressure, systolic 132 mm[Hg] BP sys pulse rate E&M 73 /min Heart rate respiratory rate E&M 20 /min Resp rate temperature E&M 97.9 [degF] Body temperature blood pressure, diastolic 72 mm[Hg] BP augustin blood pressure, systolic 138 mm[Hg] BP sys pulse rate E&M 68 /min Heart rate respiratory rate E&M 18 /min Resp rate temperature E&M 98.5 [degF] Body temperature blood pressure, diastolic 77 mm[Hg] BP augustin blood pressure, systolic 148 mm[Hg] BP sys height E&M 68 [in_us] Bdy height pulse rate E&M 76 /min Heart rate respiratory rate E&M 20 /min Resp rate temperature E&M 97.3 [degF] Body temperature blood pressure, diastolic 80 mm[Hg] BP augustin blood pressure, systolic 150 mm[Hg] BP sys pulse rate E&M 69 /min Heart rate respiratory rate E&M 20 /min Resp rate temperature E&M 96.2 [degF] Body temperature blood pressure, diastolic 85 mm[Hg] BP augustin blood pressure, systolic 151 mm[Hg] BP sys height E&M 68 [in_us] Bdy height pulse rate E&M 80 /min Heart rate temperature E&M 98.1 [degF] Body temperature blood pressure, diastolic 84 mm[Hg] BP augustin blood pressure, systolic 187 mm[Hg] BP sys height E&M 68 [in_us] Bdy height pulse rate E&M 84 /min Heart rate temperature E&M 98.8 [degF] Body temperature blood pressure, diastolic 76 mm[Hg] BP augustin blood pressure, systolic 123 mm[Hg] BP sys height E&M 68 [in_us] Bdy height pulse rate E&M 83 /min Heart rate temperature E&M 98.6 [degF] Body temperature weight E&M 347 [lb_av] Weight Measured blood pressure, diastolic 75 mm[Hg] BP augustin blood pressure, systolic 148 mm[Hg] BP sys pulse rate E&M 83 /min Heart rate respiratory rate E&M 20 /min Resp rate temperature E&M 97.8 [degF] Body temperature blood pressure, diastolic 89 mm[Hg] BP augustin blood pressure, systolic 154 mm[Hg] BP sys height E&M 68 [in_us] Bdy height pulse rate E&M 86 /min Heart rate respiratory rate E&M 18 /min Resp rate temperature E&M 97.1 [degF] Body temperature weight E&M 364 [lb_av] Weight Measured blood pressure, diastolic 89 mm[Hg] BP augustin blood pressure, systolic 154 mm[Hg] BP sys pulse rate E&M 86 /min Heart rate respiratory rate E&M 18 /min Resp rate temperature E&M 97.1 [degF] Body temperature weight E&M 373 [lb_av] Weight Measured blood pressure, diastolic 79 mm[Hg] BP augustin blood pressure, systolic 144 mm[Hg] BP sys pulse rate E&M 89 /min Heart rate respiratory rate E&M 20 /min Resp rate temperature E&M 97.4 [degF] Body temperature blood pressure, diastolic 75 mm[Hg] BP augustin blood pressure, systolic 146 mm[Hg] BP sys height E&M 68 [in_us] Bdy height pulse rate E&M 89 /min Heart rate temperature E&M 98.5 [degF] Body temperature weight E&M 375 [lb_av] Weight Measured blood pressure, diastolic 55 mm[Hg] BP augustin blood pressure, systolic 130 mm[Hg] BP sys pulse rate E&M 69 /min Heart rate respiratory rate E&M 20 /min Resp rate temperature E&M 97 [degF] Body temperature blood pressure, diastolic 80 mm[Hg] BP augustin blood pressure, systolic 122 mm[Hg] BP sys height E&M 68 [in_us] Bdy height pulse rate E&M 70 /min Heart rate temperature E&M 97.4 [degF] Body temperature weight E&M 391 [lb_av] Weight Measured Diagnostic Results Date [...] Panel - Chemistry sodium, serum 141 mmol/L 759-659 5489/07/01 potassium, serum 3.4 mmol/L 3.5-5.2 chloride, serum 104 mmol/L 98-107 carbon dioxide, venous blood 27.3 mmol/L 21.0-32.0 blood glucose 101 mg/dL 65-110 calcium, serum 8.9 mg/dL 8.5-10.1 urea nitrogen, blood 15 mg/dL 7-18 creatinine, serum 1.10 mg/dL 0.60-1.30 sodium, serum 141 mmol/L 260-067 0614/05/20 potassium, serum 5.7 mmol/L 3.5-5.2 chloride, serum 108 mmol/L 98-107 carbon dioxide, venous blood 20.4 mmol/L 21.0-32.0 blood glucose 147 mg/dL 65-110 calcium, serum 8.8 mg/dL 8.5-10.1 urea nitrogen, blood 68 mg/dL 7-18 creatinine, serum 2.40 mg/dL 0.60-1.30 sodium, serum 140 mmol/L 529-327 3223/05/31 potassium, serum 5.5 mmol/L 3.5-5.2 chloride, serum 108 mmol/L 98-107 carbon dioxide, venous blood 22.8 mmol/L 21.0-32.0 blood glucose 88 mg/dL 65-110 calcium, serum 9.1 mg/dL 8.5-10.1 urea nitrogen, blood 47 mg/dL 7-18 creatinine, serum 1.70 mg/dL 0.60-1.30 sodium, serum 137 mmol/L 842-713 4090/06/05 potassium, serum 6.5 mmol/L 3.5-5.2 chloride, serum 105 mmol/L 98-107 carbon dioxide, venous blood 22.0 mmol/L 21.0-32.0 blood glucose 132 mg/dL 65-110 calcium, serum 8.7 mg/dL 8.5-10.1 urea nitrogen, blood 71 mg/dL 7-18 creatinine, serum 2.10 mg/dL 0.60-1.30 sodium, serum 137 mmol/L 164-910 0154/06/14 potassium, serum 7.1 mmol/L 3.5-5.2 chloride, serum [...] Panel - Chemistry sodium, serum 138 mmol/L 537-025 7977/05/24 potassium, serum 6.9 mmol/L 3.5-5.2 chloride, serum 106 mmol/L 98-107 carbon dioxide, venous blood 22.3 mmol/L 21.0-32.0 blood glucose 87 mg/dL 65-110 urea nitrogen, blood 60 mg/dL 7- creatinine, serum 2.00 mg/dL 0.60-1.30 alanine aminotransferase (SGPT), serum 42 U/L - aspartate aminotransferase (SGOT), serum 18 U/L 15-37 alkaline phosphatase, serum 88 U/L 50-136 calcium, serum 8.9 mg/dL 8.5-10.1 bilirubin, serum, total 0.14 mg/dL 0.00-1.00 sodium, serum 136 mmol/L 078-870 0825/05/17 potassium, serum 6.4 mmol/L 3.5-5.2 chloride, serum 105 mmol/L 98-107 carbon dioxide, venous blood 20.7 mmol/L 21.0-32.0 blood glucose 115 mg/dL 65-110 urea nitrogen, blood 90 mg/dL 7- creatinine, serum 2.40 mg/dL 0.60-1.30 alanine aminotransferase (SGPT), serum 32 U/L -78 aspartate aminotransferase (SGOT), serum 11 U/L 15-37 [...] ... - Chemistry sodium, serum 142 mmol/L 294-767 9005/07/15 potassium, serum 3.9 mmol/L 3.5-5.2 chloride, serum [...] pH, urine, semiquantitative 5.5 5.0-8.5 Lab Report: CBC, Comp. Metabolic Panel, Uric Acid - Chemistry sodium, serum 141 mmol/L 366-951 0290/05/09 potassium, serum 3.9 mmol/L 3.5-5.2 chloride, serum [...] dipstick Negative Negative sodium, serum 140 mmol/L 520-435 6194/02/18 potassium, serum 3.8 mmol/L 3.5-5.2 chloride, serum [...] Acid - Chemistry sodium, serum 141 mmol/L 021-753 5750/06/11 potassium, serum 5.9 mmol/L 3.5-5.2 chloride, serum [...] 10.0-20.0 Encounters Code Encounter Date Provider Facility CPT-68251 Level 3 Est. Patient 17:18:03 CDT Jonel Hemphill MD [facility] CPT-74247 Level 3 Est. Patient 21:58:03 DEAN OF ADMISSIONS Jonel Hemphill MD [facility] CPT-43717 Level 4 Est. Patient 18:03:14 CDT Jonel Yeager [facility]-35236 Level 4 Est. Patient 13:24:53 CDT Jonel Yeager [facility]18680 Level 4 Est. Patient 09:15:44 CDT Jonel [facility] [place] CPT-32405 Level 4 Est. Patient 19:16:01 CDT [facility]86388 Level 4 Est. Patient 11:25:16 CDT Jonel Hemphill MD [facility] CPT-72560 Level 4 Est. Patient 09:00:40 CDT [facility]-74776 Level 4 Est. Patient 14:53:58 CDT Jonel Hemphill MD [facility] CPT-75901 Level 4 Est. Patient 22:59:01 CDT Jonel Hemphill MD [facility]-42797 Level 4 Est. Patient 09:29:57 CDT Jonel Hemphill MD [facility]-26193 Level 4 Est. Patient 12:35:53 DEAN OF ADMISSIONS Jonel Hemphill MD [facility]-78499 Level 4 Est. Patient 22:36:09 DEAN OF ADMISSIONS Jonel Hemphill MD [facility]-03661 Level 2 Est. Patient 15:14:15 DEAN OF ADMISSIONS Mayco Shah APRN [facility] CPT-47043 Level 4 Est. Patient 10:36:22 DEAN OF ADMISSIONS Jonel Hemphill MD [facility] CPT-68463 Level 4 Est. Patient 22:01:13 DEAN OF ADMISSIONS Jonel Hemphill MD [facility]-38521 Level 3 Est. Patient 21:50:37 DEAN OF ADMISSIONS Jonel Hemphill MD [facility] CPT-44522 Level 4 Est. Patient 15:02:43 CDT Rubin Pierre MD [facility] CPT-87698 Level 4 Est. Patient 14:27:35 CDT Jonel Hemphill MD [facility]-39195 Level 4 Est. Patient 12:41:17 CDT Jonel Hemphill MD [facility]54223 Level 4 Est. Patient 16:18:55 CDT Jonel Hemphill MD [facility] CPT-83645 Level 4 Est. Patient 17:58:05 CDT Jonel Hemphill MD [facility] CPT-96578 Level 4 Est. Patient 22:10:06 CDT Jonel Hemphill MD [facility] CPT-78256 Level 4 Est. Patient 13:22:09 CDT Jonel Hemphill MD [facility] CPT-67448 Level 4 Est. Patient 22:52:17 DEAN OF ADMISSIONS Jonel Hemphill MD [facility] CPT-03153 Level 3 Est. Patient 22:34:10 DEAN OF ADMISSIONS Jonel Hemphill MD [facility] CPT-27764 Level 4 Est. Patient 07:49:20 DEAN OF ADMISSIONS Jonel Hemphill MD [facility] Skilled CPT-79042 Level 3 Est. Patient 08:28:27 DEAN OF ADMISSIONS Jonel Hemphill MD [facility] Procedures Code Procedure Name Date Entry Date Standard Description CPT-52240 Level 3 Snf 09:37:40 CDT CPT-97296 Level 3 Snf 18:23:02 CDT CPT-16118 Level 3 Snf 14:09:06 CDT CPT-13749 Level 3 Snf 12:43:27 DEAN OF ADMISSIONS CPT-05187 Postop F/U Visit 14:10:15 DEAN OF ADMISSIONS CPT-69314 [facility] Ne[facility] 17:07:14 DEAN OF ADMISSIONS CPT-59523 Level 3 Snf 16:14:37 DEAN OF ADMISSIONS CPT-65982 Port a cath flush 11:47:42 CDT CPT-13006 Port a cath flush 08:29:49 CDT CPT-OV Office Visit 14:27:58 DEAN OF ADMISSIONS
--- OUTSIDE RECORDS SUMMARY | 2016-08-07 11:12 | XMS REPORT | Clinical Summary ---
Author Author Admin, KARLAE Organization [facility] Address Unknown Phone Unavailable Allergies, Adverse Reactions, Alerts Allergy Name Reaction Description Start Date Severity Status Provider PENICILLIN Critical Active [place] Parkjaida Giles RMA Conditions or Problems Problem Name Problem Code Onset Date Status Entry Date Provider Comment Standard Description Annotate DIABETES MELLITUS, TYPE II, CONTROLLED 250.00 Active Jonel Hemphill MD Diabetes mellitus without mention of complication, type II or unspecified type, not stated as uncontrolled MORBID OBESITY 278.01 Active Jonel Hemphill MD Morbid obesity HYPERTENSION 401.1 Active Jonel Hepmhill MD Benign essential hypertension 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 USE, EQUITY RESEARCH ANALYST V58.69 Resolved Jonel Hemphill MD Long-term (current) [...] Coronary atherosclerosis of unspecified type of vessel, [place] or graft FH DIABETES V18.0 Resolved Jonel [...] Coronary atherosclerosis of unspecified type of vessel, [place] or graft CONSTIPATION 564.00 Resolved Jonel Hemphill [...] Pain in or around eye 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 USE, EQUITY RESEARCH ANALYST ICD-V58.69 Inactive Jonel Hemphill MD DIABETES, TYPE [...] TAB Q 6 HRS PRN HYDROCODONE- ACETAMINOPHEN 66968552710 Active Jonel Hemphill MD Active LEVEMIR 100 UNIT/ML SOLN 5 units sub-q at bedtime INSULIN DETEMIR 80884870199 No Longer Active Tova Perez Active MOBIC 15 MG TABS 1 tab PO daily for arthritis pain MELOXICAM 29238946766 No Longer Active Tova Perez Active GLUCAGEN 1 MG SOLR INJECT 1MG IM IF BS LESS THAN 60 & RES. IS UNABLE TO SWALLOW GLUCAGON HCL (RDNA) 63881198782 No Longer Active Tova Perez Active [facility] MILK OF MAGNESIA 1200 MG/15ML SUSP 30 ml daily for constipation MAGNESIUM HYDROXIDE 91723995928 No Longer Active Tova Perez Active IMDUR 120 MG [id number] 1 qd ISOSORBIDE MONONITRATE 09557724260 No Longer Active Tova Perez Active METFORMIN HCL 500 MG TABS 1 tablet by mouth twice daily METFORMIN HCL 41205619580 Active Tova Perez Active SULFAMETHOXAZOLE-TMP DS 800-160 MG TABS 1 TAB PO BID SULFAMETHOXAZOLE-TRIMETHOPRIM 51069740416 Active Tova Perez Active PHENYTOIN 50 MG CHEW 1 TAB PO BID PHENYTOIN 21102652573 Active Tova Perez Active MECLIZINE HCL 25 MG CHEW TAB 1 four times a day as needed for dizziness 02/21 MECLIZINE HCL 68443189716 Active Tova Perez Active GABAPENTIN 300 MG CAPS 1 CAP PO TID GABAPENTIN 01555781033 Active Tova Perez Active NEURONTIN 400 MG CAPS Take one by mouth 3 times daily, morning, afternoon and evening.] GABAPENTIN 55024741223 No Longer Active Tova Perez Active AMBIEN 10 MG TAB 1 tab by mouth at bedtime as needed for sleep ZOLPIDEM TARTRATE 90207984371 Active Jonel Hemphill MD Active POTASSIUM CHLORIDE CHELA ER 20 MEQ CR-TABS 1 tab PO daily POTASSIUM CHLORIDE CHELA CR 01904965228 Active Jonel Hemphill MD Active ANTIVERT 25 MG TABS 1 q 6 hrs prn MECLIZINE HCL 96695734425 No Longer Active Jonel Hemphill MD Active CLONIDINE HCL 0.2 MG TABS 1 q 8 hrs as needed -greater than 160-htn CLONIDINE HCL 59008118736 No Longer Active Jonel Hemphill MD Active AMBIEN 10 MG TABS 1 q hs prn ZOLPIDEM TARTRATE 67340668482 No Longer Active Jonel Hemphill MD Active GNP THERAPEUTIC-M TABS 1 qd MULTIPLE VITAMINS- MINERALS 41877172105 No Longer Active Jonel Hemphill MD Active METOPROLOL TARTRATE 50 MG TABS 1 bid METOPROLOL TARTRATE 54666664411 No Longer Active Jonel Hemphill MD Active METFORMIN HCL 500 MG TABS 1 bod with food METFORMIN HCL 84189843601 No Longer Active Jonel Hemphill MD Active LISINOPRIL 40 MG TABS 1 qd LISINOPRIL 16286197404 No Longer Active Jonel Hemphill MD Active HYDROCHLOROTHIAZIDE 25 MG TABS 1 qd HYDROCHLOROTHIAZIDE 34638216657 No Longer Active Jonel Hemphill MD Active DURAGESIC-25 25 MCG/HR PT72 place 1 patch on the skin q72hrs for pain FENTANYL 30644381919 No Longer Active Jonel Hemphill MD Active FENTANYL 75 MCG/HR PT72 place 1 patch on skin q72hrs fr pain 2012 FENTANYL 39634945827 No Longer Active Jonel Hemphill MD Active LASIX 20 MG TABS 1 tab PO q morning FUROSEMIDE 30654524281 Active Jonel Hemphill MD Active FUROSEMIDE 40 MG TABS 1 q am FUROSEMIDE 74243940026 No Longer Active Jonel Hemphill MD Active HEPARIN (PORCINE) LOCK FLUSH 100 UNIT/ML SOLN Flush port a cath monthly every three week on with Heparin and NS HEPARIN LOCK FLUSH 46002359077 Active Jonel Hemphill MD Active FENTANYL 100 MCG/HR PT72 Apply every 3 days FENTANYL 35619134304 Active Jonel Hemphill MD Active FENTANYL 25 MCG/HR PT72 Apply to clean skin and change every 72 hours. 07/03 FENTANYL 05510611287 No Longer Active Jonel Hemphill MD Active FENTANYL 50 MCG/HR PT72 place 1 patch on skin q72 hours FENTANYL 99719474642 No Longer Active Mayco Shah APRN Active HYDROCODONE-ACETAMINOPHEN 7.5-325 MG TABS 1 q 6 hrs prn HYDROCODONE-ACETAMINOPHEN 17274200253 Active Jonel Hemphill MD Active ATIVAN 0.5 MG TABS Take 1 tablet 2x daily LORAZEPAM 88497847792 Active Jonel Hemphill MD Active CELEXA 20 MG TABS Take 1 tablet 1x daily CITALOPRAM HYDROBROMIDE 47332414429 Active Jonel Hemphill MD Active MIRALAX POWD 17 gms in 4 oz water or juice daily POLYETHYLENE GLYCOL 3350 52149840735 Active Rubin Pierre MD Active DURAGESIC-12 12 MCG/HR PT72 APPLY PATCH TO SKIN AND CHANGE EVERY 72 HOURS, ROTATE SITES FENTANYL 92243503329 No Longer Active Fozia HERNANDEZ Active [facility] VITAMIN C 500 MG TABS 1 po daily ASCORBIC ACID 11085567289 Active Mahogany [place] Active FUROSEMIDE 20 MG TABS 1 qd FUROSEMIDE 39158496164 No Longer Active Mahogany [place] Active ADULT ASPIRIN EC LOW STRENGTH 81 MG TBEC 1 qd ASPIRIN 03964888203 Active MARY Perez Active DILANTIN 100 MG CAPS 3 cap tid PHENYTOIN SODIUM EXTENDED 42692685491 Active MARY Perez Active BUDEPRION SR 150 MG [id number]-LIH 1 bid BUPROPION HCL 43695480798 Active MARY Perez Active ALLOPURINOL 300 MG TABS 1 qd ALLOPURINOL 99873860936 Active MARY Perez Active COZAAR 100 MG TABS 1 qd LOSARTAN POTASSIUM 25581697460 Active MARY Perez Active FUROSEMIDE 20 MG TABS 1 qd FUROSEMIDE 20 MG TABS 741686 FUROSEMIDE Inactive DURAGESIC-12 12 MCG/HR PT72 APPLY PATCH TO SKIN AND CHANGE EVERY 72 HOURS, ROTATE SITES DURAGESIC-12 12 MCG/HR PT72 009199 FENTANYL Inactive FENTANYL 50 MCG/HR PT72 place 1 patch on skin q72 hours FENTANYL 50 MCG/HR PT72 914966 FENTANYL Inactive FUROSEMIDE 40 MG TABS 1 q am FUROSEMIDE 40 MG TABS 360691 FUROSEMIDE Inactive FENTANYL 75 MCG/HR PT72 place 1 patch on skin q72hrs fr pain 2012 FENTANYL 75 MCG/HR PT72 360942 FENTANYL Inactive DURAGESIC-25 25 MCG/HR PT72 place 1 patch on the skin q72hrs for pain DURAGESIC-25 25 MCG/HR PT72 189841 FENTANYL Inactive HYDROCHLOROTHIAZIDE 25 MG TABS 1 qd HYDROCHLOROTHIAZIDE 25 MG TABS 959583 HYDROCHLOROTHIAZIDE Inactive LISINOPRIL 40 MG TABS 1 qd LISINOPRIL 40 MG TABS 439048 LISINOPRIL Inactive METFORMIN HCL 500 MG TABS 1 bod with food METFORMIN HCL 500 MG TABS 341733 METFORMIN HCL Inactive METOPROLOL TARTRATE 50 MG TABS 1 bid METOPROLOL TARTRATE 50 MG TABS 748596 METOPROLOL TARTRATE Inactive GNP THERAPEUTIC-M TABS 1 qd GNP THERAPEUTIC-M TABS MULTIPLE VITAMINS-MINERALS Inactive AMBIEN 10 MG TABS 1 q hs prn AMBIEN 10 MG TABS 359519 ZOLPIDEM TARTRATE Inactive CLONIDINE HCL 0.2 MG TABS 1 q 8 hrs as needed -greater than 160-htn CLONIDINE HCL 0.2 MG TABS 072483 CLONIDINE HCL Inactive ANTIVERT 25 MG TABS 1 q 6 hrs prn ANTIVERT 25 MG TABS MECLIZINE HCL Inactive NEURONTIN 400 MG CAPS Take one by mouth 3 times daily, morning, afternoon and evening.] NEURONTIN 400 MG CAPS 518158 GABAPENTIN Inactive IMDUR 120 MG [id number] 1 qd IMDUR 120 MG [id number] ISOSORBIDE MONONITRATE Inactive [facility] MILK OF MAGNESIA [...] for arthritis pain MOBIC 15 MG TABS 665668 MELOXICAM Inactive LEVEMIR 100 UNIT/ML SOLN 5 units sub-q at bedtime LEVEMIR 100 UNIT/ML SOLN INSULIN DETEMIR Inactive FENTANYL 25 MCG/HR PT72 Apply to clean skin and change every 72 hours. 07/03 FENTANYL 25 MCG/HR PT72 083952 FENTANYL Inactive Advance Directives Directive Description Start Date ADVANCE DIRECTIVE Immunizations Vaccine Administration Date Value Standard Description influenza immunization (Flu Vax) has been administered Influenza - Unspecified Formulation [CVX88] influenza virus vaccine, unspecified formulation pneumococcal immunization administered Pneumovax 23 [CVX33] pneumococcal polysaccharide vaccine, 23 valent Vital Signs Date Name Value Unit Range Description blood pressure, diastolic - 8462-4 83 mm[Hg] [...] blood pressure, diastolic, supine 85 mm[Hg] BP augutsin blood pressure, systolic, supine E&M 140 mm[Hg] [...] red blood cell distribution width 15.0 % Lab Report: CBC W/ DIFF - Hematology hemoglobin, blood 14.9 g/dL hematocrit, blood 42.9 [...] Acid - Chemistry sodium, serum 141 mmol/L 791-336 3105/05/09 potassium, serum 3.9 mmol/L 3.5-5.2 chloride, serum [...] dipstick Negative Negative sodium, serum 140 mmol/L 613-262 8427/02/18 potassium, serum 3.8 mmol/L 3.5-5.2 chloride, serum [...] Negative Encounters Code Encounter Date Provider Facility CPT-15690 Level 3 Est. Patient 18:04:07 CDT Jonel Hemphill MD [facility] CPT-08228 Level 3 Est. Patient 17:18:03 CDT Jonel Hemphill MD [facility] CPT-00488 Level 3 Est. Patient 21:58:03 PATIENT OFFICE REP Jonel Hemphill MD [facility] CPT-89150 Level 4 Est. Patient 18:03:14 CDT Jonel Hemphill MD [facility]-20901 Level 4 Est. Patient 13:24:53 CDT Jonel Hemphill MD [facility]-27171 Level 4 Est. Patient 09:15:44 CDT Jonel Hemphill MD [facility]-60533 Level 4 Est. Patient 19:16:01 CDT Jonel Hemphill MD [facility]-44014 Level 4 Est. Patient 11:25:16 CDT Jonel Hemphill MD [facility] CPT-26197 Level 4 Est. Patient 09:00:40 CDT Jonel Hemphill MD [facility]-47236 Level 4 Est. Patient 14:53:58 CDT Jonel Hemphill MD [facility] CPT-51389 Level 4 Est. Patient 22:59:01 CDT Jonel Hemphill MD [facility]-29910 Level 4 Est. Patient 09:29:57 CDT Jonel Hemphill MD [facility]-66670 Level 4 Est. Patient 12:35:53 PATIENT OFFICE REP Jonel Hemphill MD [facility]-88742 Level 4 Est. Patient 22:36:09 PATIENT OFFICE REP Jonel Hemphill MD [facility]-05524 Level 2 Est. Patient 15:14:15 PATIENT OFFICE REP Mayco Shah APRN [facility]-29554 Level 4 Est. Patient 10:36:22 PATIENT OFFICE REP Jonel Hemphill MD [facility] CPT-49489 Level 4 Est. Patient 22:01:13 PATIENT OFFICE REP Jonel Hemphill MD [facility] CPT-41982 Level 3 Est. Patient 21:50:37 PATIENT OFFICE REP Jonel Hemphill MD [facility] CPT-07682 Level 4 Est. Patient 15:02:43 CDT Rubin Pierre MD [facility] CPT-46757 Level 4 Est. Patient 14:27:35 CDT Jonel Hemphill MD [facility] CPT-49052 Level 4 Est. Patient 12:41:17 CDT Jonel Hemphill MD [facility]-61533 Level 4 Est. Patient 16:18:55 CDT Jonel Hemphill MD [facility]-26314 Level 4 Est. Patient 17:58:05 CDT Jonel Hemphill MD [facility]-07054 Level 4 Est. Patient 22:10:06 CDT Jonel Hemphill MD [facility]-25697 Level 4 Est. Patient 13:22:09 CDT Jonel Hemphill MD [facility] CPT-42368 Level 4 Est. Patient 22:52:17 PATIENT OFFICE REP Jonel Hemphill MD [facility]-16075 Level 3 Est. Patient 22:34:10 PATIENT OFFICE REP Jonel Hemphill MD [facility]-49886 Level 4 Est. Patient 07:49:20 PATIENT OFFICE REP Jonel Hemphill MD [facility] Skilled CPT-81700 Level 3 Est. Patient 08:28:27 PATIENT OFFICE REP Jonel Hemphill MD [facility] Procedures Code Procedure Name Date Entry Date Standard Description CPT-49906 Level 3 Mcc 17:35:26 PATIENT OFFICE REP CPT-40841 Level 3 Mcc 18:44:49 PATIENT OFFICE REP CPT-41964 Level 3 Mcc 18:17:33 CDT CPT-26649 Level 3 Mcc 09:25:33 CDT CPT-85132 Level 3 Mcc 19:11:57 CDT CPT-80720 Level 3 Mcc 09:25:52 CDT CPT-88486 Level 3 Mcc 14:23:59 CDT CPT-76012 Level 3 Mcc 12:09:43 CDT CPT-75959 Level 3 Mcc 09:37:40 CDT CPT-36320 Level 3 Mcc 18:23:02 CDT CPT-85190 Level 3 Mcc 14:09:06 CDT CPT-09505 Level 3 Mcc 12:43:27 PATIENT OFFICE REP CPT-21028 Postop F/U Visit 14:10:15 PATIENT OFFICE REP CPT-22597 [facility] 17:07:14 PATIENT OFFICE REP CPT-93582 Level 3 Mcc 16:14:37 PATIENT OFFICE REP CPT-87068 Port a cath flush 11:47:42 CDT CPT-91200 Port a cath flush 08:29:49 CDT CPT-OV Office Visit 14:27:58 PATIENT OFFICE REP
--- OUTSIDE RECORDS SUMMARY | 2016-08-07 11:13 | XMS REPORT | Clinical Summary ---
Author Author Admin, [place] Organization [facility] Address Unknown Phone Unavailable Allergies, Adverse Reactions, 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, INSURANCE EXAMINER V58.69 Resolved Jonel Hemphill MD Long-term (current) [...] Coronary atherosclerosis of unspecified type of vessel, viejas or graft FH DIABETES V18.0 Resolved Jonel [...] Coronary atherosclerosis of unspecified type of vessel, viejas or graft CONSTIPATION 564.00 Resolved Jonel Hemphill [...] Jonel Hemphill MD Painful respiration 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 USE, INSURANCE EXAMINER ICD-V58.69 Inactive Jonel Hemphill MD DIABETES, TYPE 2 ICD-250.00 Inactive oJnel Hemphill MD CORONARY HEART DISEASE ICD-414.00 Inactive [...] Hemphill MD RECTAL BLEEDING ICD-569.3 Inactive Jonel Hmephill MD LUMBAGO ICD-724.2 Inactive Jonel Hemphill MD [...] ORAL TABS 1 daily for gout. FEBUXOSTAT 21668936401 Active Marleni Romero Active HYDROCODONE-ACETAMINOPHEN 7.5-325 MG TABS 1 TAB PO Q 6 HRS PRN HYDROCODONE-ACETAMINOPHEN 52462600463 Active Jonel Hemphill MD Active METFORMIN HCL 1000 MG TABS 1 tablet by mouth twice daily METFORMIN HCL 53201388713 Active Marleni Romero Active FENTANYL 12 MCG/HR PT72 Apply to clean, dry skin and change every 72 hours FENTANYL 73114188333 Active Mattie Gates APRN Active KLOR-CON 20 MEQ ORAL PACK 1 BY MOUTH DAILY POTASSIUM CHLORIDE 93270817982 Active Marleni Romero Active A+D FIRST AID EXT OINT APPLY OINTMENT AND RUFINO WRAPS TO LOWER EXTEREMETIES DAILY SKIN PROTECTANTS, MISC. 49619043783 Active Jonel Hemphill MD Active NYSTATIN 524144 UNIT/GM EXT OINT APPLY PRN TID TO GAULDING/RASH IN ABDOMINAL FOLDS NYSTATIN 83907184711 Active Jonel Hemphill MD Active ATIVAN 0.5 MG TABS Take 1 tablet 2x daily PRN LORAZEPAM 25818562087 Active Jonel Hemphill MD Active GABAPENTIN 400 MG ORAL CAPS 1 TAB BY MOUTH THREE TIMES DAILY GABAPENTIN 13219404174 Active Jonel Hemphill MD Active GABAPENTIN 300 MG CAPS 1 CAP PO TID GABAPENTIN 13314213268 No Longer Active Jonel Hemphill MD Active DILANTIN 100 MG ORAL CAPS 1 THREE TIMES DAILY FOR SEIZURES PHENYTOIN SODIUM EXTENDED 17777958367 Active Marleni Romero Active CPAP APPLY AT HS CPAP Active Jonel Hemphill MD Active METOPROLOL TARTRATE 50 MG ORAL TABS 1 TAB BY MOUTH TWICE DAILY METOPROLOL TARTRATE 11473287628 Active Jonel Hemphill MD Active LISINOPRIL 40 MG TABS 1 tablet by mouth twice daily, for blood pressure 03/31 LISINOPRIL 68759646698 Active Jonel Hemphill MD Active BUPROPION HCL ER (SR) 150 MG [id number] 1 twice a day for depression BUPROPION HCL 66299263598 Active Jonel Hemphill MD Active MULTIVITAMINS CAPS 1 DAILY MULTIPLE VITAMIN 73730579046 Active Jonel Hemphill MD Active ZYLOPRIM 300 MG TAB 1 BY MOUTH DAILY ALLOPURINOL 13099529838 Active Jonel Hemphill MD Active HYDROCODONE-ACETAMINOPHEN 7.5-325 MG TABS 1 q 6 hrs prn HYDROCODONE-ACETAMINOPHEN 29502350137 No Longer Active Jonel Hemphill MD Active DILANTIN 100 MG CAPS 3 cap tid PHENYTOIN SODIUM EXTENDED 15708346124 No Longer Active Jonel Hemphill MD Active BUDEPRION SR 150 MG [id number] 1 bid BUPROPION HCL 15665126391 No Longer Active Jonel Hemphill MD Active ALLOPURINOL 300 MG TABS 1 qd ALLOPURINOL 17811806305 No Longer Active Jonel Hemphill MD Active COZAAR 100 MG TABS 1 qd LOSARTAN POTASSIUM 55404235361 No Longer Active Jonel Hemphill MD Active CVS VITAMIN C 500 MG TABS 1 po daily ASCORBIC ACID 50303761263 No Longer Active Jonel Hemphill MD Active MIRALAX POWD 17 gms in 4 oz water or juice daily POLYETHYLENE GLYCOL 3350 81390024945 No Longer Active Jonel Hemphill MD Active POTASSIUM CHLORIDE CHELA ER 20 MEQ CR-TABS 1 tab PO daily POTASSIUM CHLORIDE CHELA CR 21343501092 No Longer Active Jonel Hemphill MD Active AMBIEN 10 MG TAB 1 tab by mouth at bedtime as needed for sleep ZOLPIDEM TARTRATE 73037094306 No Longer Active Jonel Hemphill MD Active SULFAMETHOXAZOLE-TMP DS 800-160 MG TABS 1 TAB PO BID SULFAMETHOXAZOLE-TRIMETHOPRIM 21530520733 No Longer Active Jonel Hemphill MD Active NORCO 5-325 MG TABS 1-2 TAB Q 6 HRS PRN HYDROCODONE- ACETAMINOPHEN 33021284902 Active Jonel Hemphill MD Active LEVEMIR 100 UNIT/ML SOLN 5 units sub-q at bedtime INSULIN DETEMIR 28156349718 No Longer Active Tova Perez Active MOBIC 15 MG TABS 1 tab PO daily for arthritis pain MELOXICAM 11050934140 No Longer Active Tova Perez Active GLUCAGEN 1 MG SOLR INJECT 1MG IM IF BS LESS THAN 60 & RES. IS UNABLE TO SWALLOW GLUCAGON HCL (RDNA) 16990994371 No Longer Active Tova Perez Active CVS MILK OF MAGNESIA 1200 MG/15ML SUSP 30 ml daily for constipation MAGNESIUM HYDROXIDE 66356428605 No Longer Active Tova Perez Active IMDUR 120 MG [id number] 1 qd ISOSORBIDE MONONITRATE 73095597395 No Longer Active Tova Chris Active PHENYTOIN 50 MG CHEW 1 TAB PO BID PHENYTOIN 47348847927 Active Tova Chris Active MECLIZINE HCL 25 MG CHEW TAB 1 four times a day as needed for dizziness 02/21 MECLIZINE HCL 29385878512 Active Tova Chris Active NEURONTIN 400 MG CAPS Take one by mouth 3 times daily, morning, afternoon and evening.] GABAPENTIN 08987988345 No Longer Active Tova Perez Active ANTIVERT 25 MG TABS 1 q 6 hrs prn MECLIZINE HCL 43094204173 No Longer Active Jonel Hemphill MD Active CLONIDINE HCL 0.2 MG TABS 1 q 8 hrs as needed -greater than 160-htn CLONIDINE HCL 29911610401 No Longer Active Jonel Hemphill MD Active AMBIEN 10 MG TABS 1 q hs prn ZOLPIDEM TARTRATE 06411598078 No Longer Active Jonel Hemphill MD Active GNP THERAPEUTIC-M TABS 1 qd MULTIPLE VITAMINS- MINERALS 74027706339 No Longer Active Jonel Hemphill MD Active METOPROLOL TARTRATE 50 MG TABS 1 bid METOPROLOL TARTRATE 75600697434 No Longer Active Jonel Hemphill MD Active METFORMIN HCL 500 MG TABS 1 bod with food METFORMIN HCL 68331767237 No Longer Active Jonel Hemphill MD Active LISINOPRIL 40 MG TABS 1 qd LISINOPRIL 07275330821 No Longer Active Jonel Hemphill MD Active HYDROCHLOROTHIAZIDE 25 MG TABS 1 qd HYDROCHLOROTHIAZIDE 12564645852 No Longer Active Jonel Hemphill MD Active DURAGESIC-25 25 MCG/HR PT72 place 1 patch on the skin q72hrs for pain FENTANYL 56921971229 No Longer Active Jonel Hemphill MD Active FENTANYL 75 MCG/HR PT72 place 1 patch on skin q72hrs fr pain 2012 FENTANYL 61262897040 No Longer Active Jonel Hemphill MD Active LASIX 20 MG TABS 1 tab PO q morning FUROSEMIDE 30843838424 Active Jonel Hemphill MD Active FUROSEMIDE 40 MG TABS 1 q am FUROSEMIDE 31532109286 No Longer Active Jonel Hemphill MD Active HEPARIN (PORCINE) LOCK FLUSH 100 UNIT/ML SOLN Flush port a cath monthly every three week on with Heparin and NS HEPARIN LOCK FLUSH 20918769593 Active Jonel Hemphill MD Active FENTANYL 100 MCG/HR PT72 Apply every 3 days FENTANYL 30485974130 Active Mattie Gates APRN Active FENTANYL 25 MCG/HR PT72 Apply to clean skin and change every 72 hours. 07/03 FENTANYL 05331111912 No Longer Active Jonel Hemphill MD Active FENTANYL 50 MCG/HR PT72 place 1 patch on skin q72 hours FENTANYL 50297212047 No Longer Active Mayco Shah APRN Active CELEXA 20 MG TABS Take 1 tablet 1x daily CITALOPRAM HYDROBROMIDE 37778395741 Active Jonel Hemphill MD Active DURAGESIC-12 12 MCG/HR PT72 APPLY PATCH TO SKIN AND CHANGE EVERY 72 HOURS, ROTATE SITES FENTANYL 96282421318 No Longer Active Fozia Amador RMA Active FUROSEMIDE 20 MG TABS 1 qd FUROSEMIDE 95628360266 No Longer Active Mahogany Everett Active ADULT ASPIRIN EC LOW STRENGTH 81 MG TBEC 1 qd ASPIRIN 01109703607 Active MARY Perez Active FUROSEMIDE 20 MG TABS 1 qd FUROSEMIDE 20 MG TABS 534271 FUROSEMIDE Inactive DURAGESIC-12 12 MCG/HR PT72 APPLY PATCH TO SKIN AND CHANGE EVERY 72 HOURS, ROTATE SITES DURAGESIC-12 12 MCG/HR PT72 112791 FENTANYL Inactive FENTANYL 50 MCG/HR PT72 place 1 patch on skin q72 hours FENTANYL 50 MCG/HR PT72 758569 FENTANYL Inactive FUROSEMIDE 40 MG TABS 1 q am FUROSEMIDE 40 MG TABS 384587 FUROSEMIDE Inactive FENTANYL 75 MCG/HR PT72 place 1 patch on skin q72hrs fr pain 2012 FENTANYL 75 MCG/HR PT72 388301 FENTANYL Inactive DURAGESIC-25 25 MCG/HR PT72 place 1 patch on the skin q72hrs for pain DURAGESIC-25 25 MCG/HR PT72 453732 FENTANYL Inactive HYDROCHLOROTHIAZIDE 25 MG TABS 1 qd HYDROCHLOROTHIAZIDE 25 MG TABS 279658 HYDROCHLOROTHIAZIDE Inactive LISINOPRIL 40 MG TABS 1 qd LISINOPRIL 40 MG TABS 717619 LISINOPRIL Inactive METFORMIN HCL 500 MG TABS 1 bod with food METFORMIN HCL 500 MG TABS 466383 METFORMIN HCL Inactive METOPROLOL TARTRATE 50 MG TABS 1 bid METOPROLOL TARTRATE 50 MG TABS 372596 METOPROLOL TARTRATE Inactive GNP THERAPEUTIC-M TABS 1 qd GNP THERAPEUTIC-M TABS MULTIPLE VITAMINS-MINERALS Inactive AMBIEN 10 MG TABS 1 q hs prn AMBIEN 10 MG TABS 112427 ZOLPIDEM TARTRATE Inactive CLONIDINE HCL 0.2 MG TABS 1 q 8 hrs as needed -greater than 160-htn CLONIDINE HCL 0.2 MG TABS 647560 CLONIDINE HCL Inactive ANTIVERT 25 MG TABS 1 q 6 hrs prn ANTIVERT 25 MG TABS MECLIZINE HCL Inactive NEURONTIN 400 MG CAPS Take one by mouth 3 times daily, morning, afternoon and evening.] NEURONTIN 400 MG CAPS 045392 GABAPENTIN Inactive IMDUR 120 MG [id number] 1 qd IMDUR 120 MG [id number] ISOSORBIDE MONONITRATE Inactive CVS MILK OF MAGNESIA [...] for arthritis pain MOBIC 15 MG TABS 437829 MELOXICAM Inactive LEVEMIR 100 UNIT/ML SOLN 5 units sub-q at bedtime LEVEMIR 100 UNIT/ML SOLN INSULIN DETEMIR Inactive SULFAMETHOXAZOLE-TMP DS 800-160 MG TABS 1 TAB PO BID SULFAMETHOXAZOLE-TMP DS 800-160 MG TABS 683905 SULFAMETHOXAZOLE-TRIMETHOPRIM Inactive AMBIEN 10 MG TAB 1 tab by mouth at bedtime as needed for sleep AMBIEN 10 MG TAB 543216 ZOLPIDEM TARTRATE Inactive POTASSIUM CHLORIDE CHELA ER 20 MEQ CR-TABS 1 tab PO daily POTASSIUM CHLORIDE CHELA ER 20 MEQ CR-TABS POTASSIUM CHLORIDE CHELA CR Inactive MIRALAX POWD 17 gms in 4 oz water or juice daily MIRALAX POWD 577673 POLYETHYLENE GLYCOL 3350 Inactive CVS VITAMIN C 500 MG TABS 1 po daily CVS VITAMIN C 500 MG TABS 409399 ASCORBIC ACID Inactive COZAAR 100 MG TABS 1 qd COZAAR 100 MG TABS 740025 LOSARTAN POTASSIUM Inactive ALLOPURINOL 300 MG TABS 1 qd ALLOPURINOL 300 MG TABS 814988 ALLOPURINOL Inactive BUDEPRION SR 150 MG [id number] 1 bid BUDEPRION SR 150 MG [id number] BUPROPION HCL Inactive DILANTIN 100 MG CAPS 3 cap tid DILANTIN 100 MG CAPS 174417 PHENYTOIN SODIUM EXTENDED Inactive HYDROCODONE-ACETAMINOPHEN 7.5-325 MG TABS 1 q 6 hrs prn HYDROCODONE-ACETAMINOPHEN 7.5-325 MG TABS 268658 HYDROCODONE- ACETAMINOPHEN Inactive GABAPENTIN 300 MG CAPS 1 CAP PO TID GABAPENTIN 300 MG CAPS 381082 GABAPENTIN Inactive FENTANYL 25 MCG/HR PT72 Apply to clean skin and change every 72 hours. 07/03 FENTANYL 25 MCG/HR PT72 702441 FENTANYL Inactive Advance Directives Directive Description Start [...] 4.3-6.0 Encounters Code Encounter Date Provider Facility CPT-49237 Level 3 Est. Patient 19:05:03 CDT Jonel Hemphill MD [facility] CPT-84209 Level 3 Est. Patient 17:30:47 CDT Kevin Link MD [facility] CPT-91132 Level 3 Est. Patient 18:04:07 CDT Jonel Hemphill MD [facility] CPT-08765 Level 3 Est. Patient 17:18:03 CDT Jonel Hemphill MD [facility] CPT-59330 Level 3 Est. Patient 21:58:03 [employer] Jonel Hemphill MD [facility] CPT-09702 Level 4 Est. Patient 18:03:14 CDT [facility]ill [facility] CPT-41252 Level 4 Est. Patient 13:24:53 CDT Jonel Hemphill MD [facility]-07508 Level 4 Est. Patient 09:15:44 CDT Jonel Hemphill MD [facility]-17656 Level 4 Est. Patient 19:16:01 CDT Jonel Hemphill MD [facility]-04843 Level 4 Est. Patient 11:25:16 CDT Jonel Hemphill MD [facility] CPT-93979 Level 4 Est. Patient 09:00:40 CDT Jonel Hemphill MD [facility]-00666 Level 4 Est. Patient 14:53:58 CDT Jonel Hemphill MD [facility]-56186 Level 4 Est. Patient 22:59:01 CDT Jonel Hemphill MD [facility]-67927 Level 4 Est. Patient 09:29:57 CDT Jonel Hemphill MD [facility]-79075 Level 4 Est. Patient 12:35:53 [employer] Jonel Hemphill MD [facility]-46863 Level 4 Est. Patient 22:36:09 [employer] Jonel Hemphill MD [facility]-32792 Level 2 Est. Patient 15:14:15 [employer] Mayco Shah APRN [facility] CPT-25008 Level 4 Est. Patient 10:36:22 [employer] Jonel Hemphill MD [facility] CPT-39735 Level 4 Est. Patient 22:01:13 [employer] Jonel Hemphill MD [facility]-97522 Level 3 Est. Patient 21:50:37 [employer] Jonel Hemphill MD [facility] CPT-44721 Level 4 Est. Patient 15:02:43 CDT Rubin Pierre MD [facility] CPT-16994 Level 4 Est. Patient 14:27:35 CDT Jonel Hemphill MD [facility] CPT-62258 Level 4 Est. Patient 12:41:17 CDT Jonel Hemphill MD [facility] CPT-63390 Level 4 Est. Patient 16:18:55 CDT Jonel Hemphill MD [facility] CPT-54773 Level 4 Est. Patient 17:58:05 CDT Jonel Hemphill MD [facility] CPT-10048 Level 4 Est. Patient 22:10:06 CDT Jonel Hemphill MD [facility] CPT-13555 Level 4 Est. Patient 13:22:09 CDT Jonel Hemphill MD [facility]-01496 Level 4 Est. Patient 22:52:17 [employer] Jonel Hemphill MD [facility]-11562 Level 3 Est. Patient 22:34:10 [employer] Jonel Hemphill MD [facility]-43943 Level 4 Est. Patient 07:49:20 [employer] Jonel Hemphill MD [facility] Skilled CPT-66324 Level 3 Est. Patient 08:28:27 [employer] Jonel Hemphill MD [facility] Procedures Code Procedure Name Date Entry Date Standard Description CPT-91492 Level 3 Usp 17:42:11 CDT CPT-93317 Level 3 Usp 16:04:10 CDT CPT-96672 Level 3 Usp 19:38:15 [employer] CPT-34138 Level 3 Usp 19:28:48 [employer] CPT-46694 Level 3 Usp 18:02:20 [employer] CPT-14170 Level 3 Usp 15:02:14 [employer] CPT-22519 Level 3 Usp 12:25:37 CDT CPT-21621 Level 3 Usp 12:48:39 CDT CPT-09856 Level 3 Usp 17:39:14 CDT CPT-31619 Level 3 Usp 13:32:58 CDT CPT-60226 Level 3 Usp 17:43:43 CDT CPT-89754 Level 3 Usp 12:03:33 [employer] CPT-95320 Level 3 Usp 18:47:28 [employer] CPT-15788 Level 3 Usp 17:35:26 [employer] CPT-00197 Level 3 Usp 18:44:49 [employer] CPT-49761 Level 3 Usp 18:17:33 CDT CPT-73755 Level 3 Usp 09:25:33 CDT CPT-04295 Level 3 Usp 19:11:57 CDT CPT-87351 Level 3 Usp 09:25:52 CDT CPT-74725 Level 3 Usp 14:23:59 CDT CPT-69245 Level 3 Usp 12:09:43 CDT CPT-38442 Level 3 Usp 09:37:40 CDT CPT-97885 Level 3 Usp 18:23:02 CDT CPT-77656 Level 3 Usp 14:09:06 CDT CPT-00385 Level 3 Usp 12:43:27 [employer] CPT-89679 Postop F/U Visit 14:10:15 [employer] CPT-65803 [facility] 17:07:14 [employer] CPT-36341 Level 3 Usp 16:14:37 [employer] CPT-91467 Port a cath flush 11:47:42 CDT CPT-79189 Port a cath flush 08:29:49 CDT CPT-OV Office Visit 14:27:58 [employer]
--- OUTSIDE RECORDS SUMMARY | 2016-08-07 11:15 | XMS REPORT | Clinical Summary ---
Author Author Admin, [place] [facility] Address Unknown Phone Allergies, Adverse Reactions, Alerts Allergy Name Reaction Description Start Date Severity Status Provider PENICILLIN Critical Active Superior Aromas Conditions or Problems Problem Name Problem Code Onset Date Status Entry Date Provider Comment Standard Description Annotate DIABETES MELLITUS, TYPE II, CONTROLLED 250.00 Active Jonel Hemphill MD Diabetes mellitus without mention of complication, type II or unspecified type, not stated as uncontrolled MORBID OBESITY 278.01 Active Jonel Hemphill MD Morbid obesity HYPERTENSION 401.1 Active Jonel Hemphill MD Benign essential hypertension 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 USE, CUSTODIAL V58.69 Resolved Jonel Hemphill MD Long-term (current) use of other medications C V A / STROKE 436 Active Gregor Tisha Acute, but ill- defined, cerebrovascular disease C O P D 496 Active Superior Tisha Chronic airway obstruction, not elsewhere classified DIABETES, TYPE 2 250.00 Resolved Jonel Hemphill MD Diabetes mellitus without mention of complication, type II or unspecified type, not stated as uncontrolled SEIZURE DISORDER 780.39 Active Gregor Aromas Other convulsions CORONARY HEART DISEASE 414.00 Resolved Jonel Hmephill MD Coronary atherosclerosis of unspecified type of vessel, [place] or graft FH DIABETES V18.0 Resolved Jonel [...] of unspecified type of vessel, [place] or graft CONSTIPATION 564.00 Resolved Jonel Hemphill [...] MD Hyperpotassemia POTASSIUM 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 IS UNABLE TO SWALLOW GLUCAGON HCL (RDNA) 18168519284 No Longer Active Tova Perez Active [facility] MILK OF MAGNESIA 1200 MG/15ML SUSP 30 ml daily for constipation MAGNESIUM HYDROXIDE 46234816350 No Longer Active Tova Perez Active IMDUR 120 MG [id number] 1 qd ISOSORBIDE MONONITRATE 48030665746 No Longer Active Tova Chris Active METFORMIN HCL 500 MG TABS 1 tablet by mouth twice daily METFORMIN HCL 59976972840 Active Tova Chris Active SULFAMETHOXAZOLE-TMP DS 800-160 MG TABS 1 TAB PO BID SULFAMETHOXAZOLE-TRIMETHOPRIM 45375346762 Active Tova Chris Active PHENYTOIN 50 MG CHEW 1 TAB PO BID PHENYTOIN 72812553309 Active Tova Perez Active MECLIZINE HCL 25 MG CHEW TAB 1 four times a day as needed for dizziness 02/21 MECLIZINE HCL 91649796406 Active Tova Chris Active GABAPENTIN 300 MG CAPS 1 CAP PO TID GABAPENTIN 66336594158 Active Tova Chris Active NEURONTIN 400 MG CAPS Take one by mouth 3 times daily, morning, afternoon and evening.] GABAPENTIN 35817994229 No Longer Active Tova Chris Active AMBIEN 10 MG TAB 1 tab by mouth at bedtime as needed for sleep ZOLPIDEM TARTRATE 73255426738 Active Jonel Hemphill MD Active POTASSIUM CHLORIDE CHELA ER 20 MEQ CR-TABS 1 tab PO daily POTASSIUM CHLORIDE CHELA CR 68482934572 Active Jonel Hemphill MD Active ANTIVERT 25 MG TABS 1 q 6 hrs prn MECLIZINE HCL 19865302192 No Longer Active Jonel Hemphill MD Active CLONIDINE HCL 0.2 MG TABS 1 q 8 hrs as needed -greater than 160-htn CLONIDINE HCL 79574682627 No Longer Active Jonel Hemphill MD Active AMBIEN 10 MG TABS 1 q hs prn ZOLPIDEM TARTRATE 76703228791 No Longer Active Jonel Hemphill MD Active GNP THERAPEUTIC-M TABS 1 qd MULTIPLE VITAMINS- MINERALS 79849022357 No Longer Active Jonel Hemphill MD Active METOPROLOL TARTRATE 50 MG TABS 1 bid METOPROLOL TARTRATE 25137683438 No Longer Active Jonel Hemphill MD Active METFORMIN HCL 500 MG TABS 1 bod with food METFORMIN HCL 91858598572 No Longer Active Jonel Hemphill MD Active LISINOPRIL 40 MG TABS 1 qd LISINOPRIL 40379842410 No Longer Active Jonel Hemphill MD Active HYDROCHLOROTHIAZIDE 25 MG TABS 1 qd HYDROCHLOROTHIAZIDE 65506940024 No Longer Active Jonel Hemphill MD Active DURAGESIC-25 25 MCG/HR PT72 place 1 patch on the skin q72hrs for pain FENTANYL 54298598277 No Longer Active Jonel Hemphill MD Active FENTANYL 75 MCG/HR PT72 place 1 patch on skin q72hrs fr pain 2012 FENTANYL 32742365563 No Longer Active Jonel Hemphill MD Active LASIX 20 MG TABS 1 tab PO q morning FUROSEMIDE 73766584743 Active Jonel Hemphill MD Active FUROSEMIDE 40 MG TABS 1 q am FUROSEMIDE 17488626810 No Longer Active Jonel Hemphill MD Active HEPARIN (PORCINE) LOCK FLUSH 100 UNIT/ML SOLN Flush port a cath monthly every three week on with Heparin and NS HEPARIN LOCK FLUSH 32263756139 Active Jonel Hemphill MD Active FENTANYL 100 MCG/HR PT72 Apply every 3 days FENTANYL 01837264546 Active Jonel Hemphill MD Active FENTANYL 25 MCG/HR PT72 Apply to clean skin and change every 72 hours. 07/03 FENTANYL 01095064713 No Longer Active Jonel Hemphill MD Active FENTANYL 50 MCG/HR PT72 place 1 patch on skin q72 hours FENTANYL 87265234416 No Longer Active Mayco Shah APRN Active HYDROCODONE-ACETAMINOPHEN 7.5-325 MG TABS 1 q 6 hrs prn HYDROCODONE-ACETAMINOPHEN 11349247233 Active Jonel Hemphill MD Active ATIVAN 0.5 MG TABS Take 1 tablet 2x daily LORAZEPAM 76451374484 Active Jonel Hemphill MD Active CELEXA 20 MG TABS Take 1 tablet 1x daily CITALOPRAM HYDROBROMIDE 69676315577 Active Jonel Hemphill MD Active MIRALAX POWD 17 gms in 4 oz water or juice daily POLYETHYLENE GLYCOL 3350 27153949992 Active Rubin Pierre MD Active DURAGESIC-12 12 MCG/HR PT72 APPLY PATCH TO SKIN AND CHANGE EVERY 72 HOURS, ROTATE SITES FENTANYL 03496057667 No Longer Active Fozia Amador RMA Active [facility] VITAMIN C 500 MG TABS 1 po daily ASCORBIC ACID 23213094993 Active Mahogany Yucaipa Active FUROSEMIDE 20 MG TABS 1 qd FUROSEMIDE 07497011252 No Longer Active Mahogany Yucaipa Active ADULT ASPIRIN EC LOW STRENGTH 81 MG TBEC 1 qd ASPIRIN 69441054633 Active Gregor Giles Active DILANTIN 100 MG CAPS 3 cap tid PHENYTOIN SODIUM EXTENDED 52465350250 Active Superior Tisha Active BUDEPRION SR 150 MG [id number] 1 bid BUPROPION HCL 39098773039 Active Gregor Giles Active ALLOPURINOL 300 MG TABS 1 qd ALLOPURINOL 23689213675 Active Gregor Aromas Active COZAAR 100 MG TABS 1 qd LOSARTAN POTASSIUM 54236668896 Active Superior Tisha Active AMBIEN 10 MG TABS 1 q hs prn AMBIEN 10 MG TABS 314814 ZOLPIDEM TARTRATE Inactive ANTIVERT 25 MG TABS 1 q 6 hrs prn ANTIVERT 25 MG TABS MECLIZINE HCL Inactive CLONIDINE HCL 0.2 MG TABS 1 q 8 hrs as needed -greater than 160-htn CLONIDINE HCL 0.2 MG TABS 042656 CLONIDINE HCL Inactive DURAGESIC-25 25 MCG/HR PT72 place 1 patch on the skin q72hrs for pain DURAGESIC-25 25 MCG/HR PT72 410189 FENTANYL Inactive FUROSEMIDE 20 MG TABS 1 qd FUROSEMIDE 20 MG TABS 561455 FUROSEMIDE Inactive FUROSEMIDE 40 MG TABS 1 q am FUROSEMIDE 40 MG TABS 221132 FUROSEMIDE Inactive HYDROCHLOROTHIAZIDE 25 MG TABS 1 qd HYDROCHLOROTHIAZIDE 25 MG TABS 219170 HYDROCHLOROTHIAZIDE Inactive METOPROLOL TARTRATE 50 MG TABS 1 bid METOPROLOL TARTRATE 50 MG TABS 269442 METOPROLOL TARTRATE Inactive LISINOPRIL 40 MG TABS 1 qd LISINOPRIL 40 MG TABS 731370 LISINOPRIL Inactive METFORMIN HCL 500 MG TABS 1 bod with food METFORMIN HCL 500 MG TABS 279479 METFORMIN HCL Inactive NEURONTIN 400 MG CAPS Take one by mouth 3 times daily, morning, afternoon and evening.] NEURONTIN 400 MG CAPS 326508 GABAPENTIN Inactive IMDUR 120 MG [id number] 1 qd IMDUR 120 MG [id number] ISOSORBIDE MONONITRATE Inactive GLUCAGEN 1 MG SOLR INJECT 1MG IM IF BS LESS THAN 60 & RES. IS UNABLE TO SWALLOW GLUCAGEN 1 MG SOLR GLUCAGON HCL (RDNA) Inactive FENTANYL 25 MCG/HR PT72 Apply to clean skin and change every 72 hours. 07/03 FENTANYL 25 MCG/HR PT72 048461 FENTANYL Inactive FENTANYL 50 MCG/HR PT72 place 1 patch on skin q72 hours FENTANYL 50 MCG/HR PT72 818545 FENTANYL Inactive FENTANYL 75 MCG/HR PT72 place 1 patch on skin q72hrs fr pain 2012 FENTANYL 75 MCG/HR PT72 174252 FENTANYL Inactive MOBIC 15 MG TABS 1 tab PO daily for arthritis pain MOBIC 15 MG TABS 854406 MELOXICAM Inactive DURAGESIC-12 12 MCG/HR PT72 APPLY PATCH TO SKIN AND CHANGE EVERY 72 HOURS, ROTATE SITES DURAGESIC-12 12 MCG/HR PT72 914130 FENTANYL Inactive LEVEMIR 100 UNIT/ML SOLN 5 units sub-q at bedtime LEVEMIR 100 UNIT/ML SOLN INSULIN DETEMIR Inactive [facility] MILK OF MAGNESIA 1200 MG/15ML [...] Value Unit Range Description blood pressure, diastolic 81 mm[Hg] BP augustin blood pressure, systolic 159 mm[Hg] BP sys height E&M 68 [in_us] Bdy height pulse rate E&M 81 /min Heart rate temperature E&M 98.7 [degF] Body temperature weight E&M 340 [lb_av] Weight Measured blood pressure, diastolic 80 mm[Hg] BP augustin [...] rate temperature E&M 97 [degF] Body temperature Diagnostic Results Date Name [...] Panel - Chemistry sodium, serum 141 mmol/L 762-938 6707/07/01 potassium, serum 3.4 mmol/L 3.5-5.2 chloride, serum 104 mmol/L 98-107 carbon dioxide, venous blood 27.3 mmol/L 21.0-32.0 blood glucose 101 mg/dL 65-110 calcium, serum 8.9 mg/dL 8.5-10.1 urea nitrogen, blood 15 mg/dL 7-18 creatinine, serum 1.10 mg/dL 0.60-1.30 sodium, serum 137 mmol/L 465-785 8472/06/14 potassium, serum 7.1 mmol/L 3.5-5.2 chloride, serum 107 mmol/L 98-107 carbon dioxide, venous blood 18.7 mmol/L 21.0-32.0 blood glucose 153 mg/dL 65-110 calcium, serum 8.8 mg/dL 8.5-10.1 urea nitrogen, blood 82 mg/dL 7-18 creatinine, serum 2.50 mg/dL 0.60-1.30 sodium, serum 141 mmol/L 332-003 4520/05/20 potassium, serum 5.7 mmol/L 3.5-5.2 chloride, serum 108 mmol/L 98-107 carbon dioxide, venous blood 20.4 mmol/L 21.0-32.0 blood glucose 147 mg/dL 65-110 calcium, serum 8.8 mg/dL 8.5-10.1 urea nitrogen, blood 68 mg/dL 7-18 creatinine, serum 2.40 mg/dL 0.60-1.30 sodium, serum 140 mmol/L 511-804 7383/05/31 potassium, serum 5.5 mmol/L 3.5-5.2 chloride, serum 108 mmol/L 98-107 carbon dioxide, venous blood 22.8 mmol/L 21.0-32.0 blood glucose 88 mg/dL 65-110 calcium, serum 9.1 mg/dL 8.5-10.1 urea nitrogen, blood 47 mg/dL 7-18 creatinine, serum 1.70 mg/dL 0.60-1.30 sodium, serum 137 mmol/L 340-427 5880/06/05 potassium, serum 6.5 mmol/L 3.5-5.2 chloride, serum 105 mmol/L 98-107 carbon dioxide, venous blood 22.0 mmol/L 21.0-32.0 blood glucose 132 mg/dL 65-110 calcium, serum 8.7 mg/dL 8.5-10.1 urea nitrogen, blood 71 mg/dL 7-18 creatinine, serum 2.10 mg/dL 0.60-1.30 Lab Report: CBC W/ DIFF [...] Panel - Chemistry sodium, serum 138 mmol/L 415-702 7953/05/24 potassium, serum 6.9 mmol/L 3.5-5.2 chloride, serum [...] 8.5-10.1 bilirubin, serum, total 0.14 mg/dL 0.00-1.00 Lab Report: CBC, Comp. Metabolic [...] UADIP W/MICRO, AUTO, MAY ... - Chemistry protein, total urine random Negative mg/dL Negative sodium, serum 142 mmol/L 273-903 0051/07/15 potassium, serum 3.9 mmol/L 3.5-5.2 chloride, serum [...] % 4.3-6.0 RBC, urine, dipstick Negative Negative albumin/creatinine ratio, urine 30 - 300 mg/g mg/g{creat} 0-29 Lab Report: CBC, Comp. Metabolic Panel, HGBA1C, [...] Acid - Chemistry sodium, serum 141 mmol/L 101-654 6017/05/09 potassium, serum 3.9 mmol/L 3.5-5.2 chloride, serum [...] dipstick Negative Negative sodium, serum 140 mmol/L 159-879 0626/02/18 potassium, serum 3.8 mmol/L 3.5-5.2 chloride, serum [...] Acid - Chemistry sodium, serum 141 mmol/L 743-207 3869/06/11 potassium, serum 5.9 mmol/L 3.5-5.2 chloride, serum [...] Report: MICROALBUMIN, UADIP W/MICRO, AUTO - Urinalysis urobilinogen, urine, semiquantitative (dipstick) 0.2 Normal leukocyte esterase, urine, by dipstick Negative Negative nitrite, urine, semiquantitative Negative Negative urate crystals, amorphous, urine, semiquantitative Large None seen glucose, urine, semiquantitative Negative Negative ketones, urine, by test strip Negative Negative bilirubin, urine Negative Negative urine color Yellow Colorless;Lightyellow;Straw;Yellow appearance, urine Cloudy Clear specific gravity, urine 1.025 1.000-1.030 pH, urine, semiquantitative 5.0 5.0-8.5 Lab Report: PHENYTOIN - Toxicology phenytoin level, serum <2.5 mg/L ug/mL 10.0-20.0 Encounters Code Encounter Date Provider Facility CPT-76529 Level 3 Est. Patient 17:18:03 CDT Jonel Hemphill MD [facility] CPT-73587 Level 3 Est. Patient 21:58:03 CAN SOLDERER Jonel Hemphill MD [facility] CPT-60089 Level 4 Est. Patient 18:03:14 CDT Jonel Hemphill MD [facility]-08387 Level 4 Est. Patient 13:24:53 CDT Jonel Hemphill MD [facility]-58334 Level 4 Est. Patient 09:15:44 CDT Jonel Hemphill MD [facility]-46391 Level 4 Est. Patient 19:16:01 CDT Jonel Hemphill MD [facility]-63552 Level 4 Est. Patient 11:25:16 CDT Jonel Hemphill MD [facility] CPT-95845 Level 4 Est. Patient 09:00:40 CDT Jonel Hemphill MD [facility]-12487 Level 4 Est. Patient 14:53:58 CDT Jonel Hemphill MD [facility]-99975 Level 4 Est. Patient 22:59:01 CDT Jonel Hemphill MD [facility]-83439 Level 4 Est. Patient 09:29:57 CDT Jonel Hemphill MD [facility]-05384 Level 4 Est. Patient 12:35:53 CAN SOLDERER Jonel Hemphill MD [facility]-12994 Level 4 Est. Patient 22:36:09 CAN SOLDERER Jonel Hemphill MD [facility]-74389 Level 2 Est. Patient 15:14:15 CAN SOLDERER Mayco Shah APRN [facility] CPT-48174 Level 4 Est. Patient 10:36:22 CAN SOLDERER Jonel Hemphill MD [facility]-26156 Level 4 Est. Patient 22:01:13 CAN SOLDERER Jonel Hemphill MD [facility]-94780 Level 3 Est. Patient 21:50:37 CAN SOLDERER Jonel Hemphill MD [facility] CPT-53482 Level 4 Est. Patient 15:02:43 CDT Rubin Pierre MD [facility] CPT-52889 Level 4 Est. Patient 14:27:35 CDT Jonel Hemphill MD [facility] CPT-02453 Level 4 Est. Patient 12:41:17 CDT Jonel Hemphill MD [facility] CPT-87475 Level 4 Est. Patient 16:18:55 CDT Jonel Hemphill MD [facility] CPT-88479 Level 4 Est. Patient 17:58:05 CDT Jonel Hemphill MD [facility] CPT-07132 Level 4 Est. Patient 22:10:06 CDT Jonel Hemphill MD [facility] CPT-49069 Level 4 Est. Patient 13:22:09 CDT Jonel Hemphill MD [facility] CPT-90727 Level 4 Est. Patient 22:52:17 CAN SOLDERER Jonel Hemphill MD [facility] CPT-39162 Level 3 Est. Patient 22:34:10 CAN SOLDERER Jonel Hemphill MD [facility] CPT-12419 Level 4 Est. Patient 07:49:20 CAN SOLDERER Jonel Hemphill MD [facility] CPT-46250 Level 3 Est. Patient 08:28:27 CAN SOLDERER Jonel Hemphill MD [facility] Procedures Code Procedure Name Date Entry Date Standard Description CPT-01677 Level 3 Longterm 09:37:40 CDT CPT-01774 Level 3 Longterm 18:23:02 CDT CPT-84280 Level 3 Longterm 14:09:06 CDT CPT-29516 Level 3 Longterm 12:43:27 CAN SOLDERER CPT-43719 Postop F/U Visit 14:10:15 CAN SOLDERER CPT-71932 [facility] 17:07:14 CAN SOLDERER CPT-28465 Level 3 Longterm 16:14:37 CAN SOLDERER CPT-10524 Port a cath flush 11:47:42 CDT CPT-06964 Port a cath flush 08:29:49 CDT CPT-OV Office Visit 14:27:58 CAN SOLDERER
--- OUTSIDE RECORDS SUMMARY | 2016-08-07 11:16 | XMS REPORT | Clinical Summary ---
Author Author Admin, [place] Organization 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 GROUND BASED AIR DEFENCE V58.69 Resolved Jonel Hemphill MD Long-term (current) [...] Coronary atherosclerosis of unspecified type of vessel, [place] or graft FH DIABETES V18.0 Resolved Jonel [...] Coronary atherosclerosis of unspecified type of vessel, [place] or graft CONSTIPATION 564.00 Resolved Jonel Hemphill [...] Hemphill MD Spasm of muscle 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 USE, FPC ICD-V58.69 Inactive Jonel Hemphill MD DIABETES, TYPE [...] MD Hip pain, right ICD-719.45 Inactive Jonel Hemphlil MD Bronchitis-Acute ICD-466.0 Inactive Jonel Hemphill MD Cellulitis, leg, right ICD-682.6 Inactive Jonel Hemphill MD Chest wall pain, acute ICD-786.52 Inactive Jonel Hemphill MD Medication List Medication Instructions Start Date Stop Date Generic Name NDC Status Provider Patient Instruction FENTANYL 12 MCG/HR PT72 Apply to clean, dry skin and change every 72 hours FENTANYL 82510622820 Active Jonel Hemphill MD Active MIRALAX POWD 17 gms in 4 oz water or juice daily POLYETHYLENE GLYCOL 3350 04223101796 Active Jonel Hemphill MD Active [facility]S MELATONIN 3 MG ORAL TABS 2 tabs at hs MELATONIN 24907796191 Active Jonel Hemphill MD Active MAGNESIUM GLUCONATE 500 MG ORAL TABS 1 tab twice daily MAGNESIUM GLUCONATE 33748824003 Active Jonel Hemphill MD Active OMEPRAZOLE 20 MG CPDR 1 tablet by mouth daily OMEPRAZOLE 35007681046 Active Jonel Hemphill MD Active DIGOXIN 125 MCG ORAL TABS 1 daily DIGOXIN 53658188367 Active Jonel Hemphill MD Active DILTIAZEM CD 240 MG ORAL [id number] 1 daily DILTIAZEM HCL COATED BEADS 86587090357 Active Jonel Hemphill MD Active NOVOLOG 100 UNIT/ML SC SOLN 70-140=0U 141-180=2 U 181-220=4U 221-260=6U 261- 300=8U 301-340=10U 322=445=91V 381-400=14U INSULIN ASPART 99917591196 Active Jonel Hemphill MD Active ACETAMINOPHEN 325 MG ORAL TABS 1 tab by mouth every 4 hours as needed ACETAMINOPHEN 71546383296 Active Jonel Hemphill MD Active FENTANYL 12 MCG/HR PT72 Apply to clean, dry skin and change every 72 hours FENTANYL 03513590951 No Longer Active Jonel Hemphill MD Active PHENYTOIN 50 MG CHEW 1 TAB PO BID PHENYTOIN 72081755144 No Longer Active Jonel Hemphill MD Active NORCO 5-325 MG TABS 1-2 TAB Q 6 HRS PRN HYDROCODONE- ACETAMINOPHEN 03697447054 No Longer Active Jonel Hemphill MD Active MULTIVITAMINS CAPS 1 DAILY MULTIPLE VITAMIN 95262538511 No Longer Active Jonel Hemphill MD Active BUPROPION HCL ER (SR) 150 MG [id number] 1 twice a day for depression BUPROPION HCL 09401824517 No Longer Active Jonel Hemphill MD Active LISINOPRIL 20 MG TABS 1 tablet by mouth daily LISINOPRIL 41949287461 Active Joenl Hemphill MD Active ULORIC 40 MG ORAL TABS 1 daily for gout. FEBUXOSTAT 18112107660 No Longer Active Jonel Hemphill MD Active CELEXA 20 MG TABS 1 tablet by mouth daily CITALOPRAM HYDROBROMIDE 27470328721 Active Marleni Raida Active ZOFRAN 4 MG TABS 1 po q6hr PRN Nausea ONDANSETRON HCL 87842241724 Active Jonel Hemphill MD Active XARELTO 20 MG ORAL TABS 1 daily RIVAROXABAN 52518472828 Active Jonel Hemphill MD Active JANUVIA 100 MG ORAL TABS 2 tabs daily SITAGLIPTIN PHOSPHATE 53346583006 Active Jonel Hemphill MD Active CELEXA 20 MG TABS Take 1 tablet 1x daily CITALOPRAM HYDROBROMIDE 96577945789 No Longer Active Jonel Hemphill MD Active ATIVAN 0.5 MG TABS Take 1 tablet 2x daily PRN LORAZEPAM 71456725062 No Longer Active Jonel Hemphill MD Active FUROSEMIDE 80 MG ORAL TABS 1 daily FUROSEMIDE 40976791042 Active Jonel Hemphill MD Active MECLIZINE HCL 25 MG CHEW TAB 1 four times a day as needed for dizziness 02/21 MECLIZINE HCL 87923447288 No Longer Active Jonel Hemphill MD Active ZYLOPRIM 300 MG TAB 1 BY MOUTH DAILY ALLOPURINOL 13421946123 No Longer Active Jonel Hemphill MD Active METOPROLOL TARTRATE 50 MG ORAL TABS 1 TAB BY MOUTH TWICE DAILY METOPROLOL TARTRATE 28813181859 No Longer Active Jonel Hemphill MD Active GABAPENTIN 400 MG ORAL CAPS 1 TAB BY MOUTH THREE TIMES DAILY 2015 GABAPENTIN 34921862910 No Longer Active Jonel Hemphill MD Active HYDROCODONE-ACETAMINOPHEN 7.5-325 MG TABS 1 TAB PO Q 6 HRS PRN HYDROCODONE-ACETAMINOPHEN 43715529969 Active Jonel Hemphill MD Active METFORMIN HCL 1000 MG TABS 1 tablet by mouth twice daily METFORMIN HCL 66079193146 Active Marleni Romero Active KLOR-CON 20 MEQ ORAL PACK 1 BY MOUTH DAILY POTASSIUM CHLORIDE 02995078589 Active Marleni Romero Active A+D FIRST AID EXT OINT APPLY OINTMENT AND RUFINO WRAPS TO LOWER EXTEREMETIES DAILY SKIN PROTECTANTS, MISC. 28331082279 Active Jonel Hemphill MD Active NYSTATIN 207613 UNIT/GM EXT OINT APPLY PRN TID TO GAULDING/RASH IN ABDOMINAL FOLDS NYSTATIN 46050161383 Active Jonel Hemphill MD Active GABAPENTIN 300 MG CAPS 1 CAP PO TID GABAPENTIN 51045895314 No Longer Active Jonel Hemphill MD Active DILANTIN 100 MG ORAL CAPS 1 THREE TIMES DAILY FOR SEIZURES PHENYTOIN SODIUM EXTENDED 37895017109 Active Marleni Romero Active CPAP APPLY AT HS CPAP Active Jonel Hemphill MD Active HYDROCODONE-ACETAMINOPHEN 7.5-325 MG TABS 1 q 6 hrs prn HYDROCODONE-ACETAMINOPHEN 95349870981 No Longer Active Jonel Hemphill MD Active DILANTIN 100 MG CAPS 3 cap tid PHENYTOIN SODIUM EXTENDED 36028093698 No Longer Active Jonel Hemphill MD Active BUDEPRION SR 150 MG [id number] 1 bid BUPROPION HCL 45217673922 No Longer Active Jonel Hemphill MD Active ALLOPURINOL 300 MG TABS 1 qd ALLOPURINOL 73803884995 No Longer Active Jonel Hemphill MD Active COZAAR 100 MG TABS 1 qd LOSARTAN POTASSIUM 73770736582 No Longer Active Jonel Hemphill MD Active CVS VITAMIN C 500 MG TABS 1 po daily ASCORBIC ACID 68552693043 No Longer Active Jonel Hemphill MD Active MIRALAX POWD 17 gms in 4 oz water or juice daily POLYETHYLENE GLYCOL 3350 77148139298 No Longer Active Jonel Hemphill MD Active POTASSIUM CHLORIDE CHELA ER 20 MEQ CR-TABS 1 tab PO daily POTASSIUM CHLORIDE CHELA CR 14340038062 No Longer Active Jonel Hemphill MD Active AMBIEN 10 MG TAB 1 tab by mouth at bedtime as needed for sleep ZOLPIDEM TARTRATE 38155908700 No Longer Active Jonel Hemphill MD Active SULFAMETHOXAZOLE-TMP DS 800-160 MG TABS 1 TAB PO BID SULFAMETHOXAZOLE-TRIMETHOPRIM 93023519004 No Longer Active Jonel Hemphill MD Active LEVEMIR 100 UNIT/ML SOLN 5 units sub-q at bedtime INSULIN DETEMIR 79082757890 No Longer Active Tova Perez Active MOBIC 15 MG TABS 1 tab PO daily for arthritis pain MELOXICAM 90851799786 No Longer Active Tova Perez Active GLUCAGEN 1 MG SOLR INJECT 1MG IM IF BS LESS THAN 60 & RES. IS UNABLE TO SWALLOW GLUCAGON HCL (RDNA) 39256218840 No Longer Active Tova Perez Active CVS MILK OF MAGNESIA 1200 MG/15ML SUSP 30 ml daily for constipation MAGNESIUM HYDROXIDE 00459718189 No Longer Active Tova Perez Active IMDUR 120 MG [id number] 1 qd ISOSORBIDE MONONITRATE 68146358693 No Longer Active Tova Perez Active NEURONTIN 400 MG CAPS Take one by mouth 3 times daily, morning, afternoon and evening.] GABAPENTIN 70428828382 No Longer Active Tova Perez Active ANTIVERT 25 MG TABS 1 q 6 hrs prn MECLIZINE HCL 67056508854 No Longer Active Jonel Hemphill MD Active CLONIDINE HCL 0.2 MG TABS 1 q 8 hrs as needed -greater than 160-htn CLONIDINE HCL 11087842823 No Longer Active Jonel Hemphill MD Active AMBIEN 10 MG TABS 1 q hs prn ZOLPIDEM TARTRATE 16596122725 No Longer Active Jonel Hemphill MD Active GNP THERAPEUTIC-M TABS 1 qd MULTIPLE VITAMINS- MINERALS 66510321545 No Longer Active Jonel Hemphill MD Active METOPROLOL TARTRATE 50 MG TABS 1 bid METOPROLOL TARTRATE 66836331618 No Longer Active Jonel Hemphill MD Active METFORMIN HCL 500 MG TABS 1 bod with food METFORMIN HCL 45252591396 No Longer Active Jonel Hemphill MD Active LISINOPRIL 40 MG TABS 1 qd LISINOPRIL 80146152692 No Longer Active Jonel Hemphill MD Active HYDROCHLOROTHIAZIDE 25 MG TABS 1 qd HYDROCHLOROTHIAZIDE 92337458615 No Longer Active Jonel Hemphill MD Active DURAGESIC-25 25 MCG/HR PT72 place 1 patch on the skin q72hrs for pain FENTANYL 25557843203 No Longer Active Jonel Hemphill MD Active FENTANYL 75 MCG/HR PT72 place 1 patch on skin q72hrs fr pain 2012 FENTANYL 94122893117 No Longer Active Jonel Hemphill MD Active FUROSEMIDE 40 MG TABS 1 q am FUROSEMIDE 10590155566 No Longer Active Jonel Hemphill MD Active HEPARIN (PORCINE) LOCK FLUSH 100 UNIT/ML SOLN Flush port a cath monthly every three week on with Heparin and NS HEPARIN LOCK FLUSH 89368814328 Active Jonel Hemphill MD Active FENTANYL 100 MCG/HR PT72 Apply every 3 days FENTANYL 13622184379 Active Jonel Hemphill MD Active FENTANYL 25 MCG/HR PT72 Apply to clean skin and change every 72 hours. 07/03 FENTANYL 27892133741 No Longer Active Jonel Hemphill MD Active FENTANYL 50 MCG/HR PT72 place 1 patch on skin q72 hours FENTANYL 51784565056 No Longer Active Mayco Shah APRN Active DURAGESIC-12 12 MCG/HR PT72 APPLY PATCH TO SKIN AND CHANGE EVERY 72 HOURS, ROTATE SITES FENTANYL 17470475188 No Longer Active Fozia HERANNDEZ Active FUROSEMIDE 20 MG TABS 1 qd FUROSEMIDE 93342594196 No Longer Active Mahogany [place] Active ADULT ASPIRIN EC LOW STRENGTH 81 MG TBEC 1 qd ASPIRIN 72333829768 Active MARY Perez Active FUROSEMIDE 20 MG TABS 1 qd FUROSEMIDE 20 MG TABS 502347 FUROSEMIDE Inactive DURAGESIC-12 12 MCG/HR PT72 APPLY PATCH TO SKIN AND CHANGE EVERY 72 HOURS, ROTATE SITES DURAGESIC-12 12 MCG/HR PT72 264738 FENTANYL Inactive FENTANYL 50 MCG/HR PT72 place 1 patch on skin q72 hours FENTANYL 50 MCG/HR PT72 451582 FENTANYL Inactive FUROSEMIDE 40 MG TABS 1 q am FUROSEMIDE 40 MG TABS 322046 FUROSEMIDE Inactive FENTANYL 75 MCG/HR PT72 place 1 patch on skin q72hrs fr pain 2012 FENTANYL 75 MCG/HR PT72 695495 FENTANYL Inactive DURAGESIC-25 25 MCG/HR PT72 place 1 patch on the skin q72hrs for pain DURAGESIC-25 25 MCG/HR PT72 962305 FENTANYL Inactive HYDROCHLOROTHIAZIDE 25 MG TABS 1 qd HYDROCHLOROTHIAZIDE 25 MG TABS 833816 HYDROCHLOROTHIAZIDE Inactive LISINOPRIL 40 MG TABS 1 qd LISINOPRIL 40 MG TABS 492625 LISINOPRIL Inactive METFORMIN HCL 500 MG TABS 1 bod with food METFORMIN HCL 500 MG TABS 903308 METFORMIN HCL Inactive METOPROLOL TARTRATE 50 MG TABS 1 bid METOPROLOL TARTRATE 50 MG TABS 930018 METOPROLOL TARTRATE Inactive GNP THERAPEUTIC-M TABS 1 qd GNP THERAPEUTIC-M TABS MULTIPLE VITAMINS-MINERALS Inactive AMBIEN 10 MG TABS 1 q hs prn AMBIEN 10 MG TABS 666431 ZOLPIDEM TARTRATE Inactive CLONIDINE HCL 0.2 MG TABS 1 q 8 hrs as needed -greater than 160-htn CLONIDINE HCL 0.2 MG TABS 507854 CLONIDINE HCL Inactive ANTIVERT 25 MG TABS 1 q 6 hrs prn ANTIVERT 25 MG TABS MECLIZINE HCL Inactive NEURONTIN 400 MG CAPS Take one by mouth 3 times daily, morning, afternoon and evening.] NEURONTIN 400 MG CAPS 504571 GABAPENTIN Inactive IMDUR 120 MG [id number] 1 qd IMDUR 120 MG [id number] ISOSORBIDE MONONITRATE Inactive CVS MILK OF MAGNESIA [...] for arthritis pain MOBIC 15 MG TABS 654264 MELOXICAM Inactive LEVEMIR 100 UNIT/ML SOLN 5 units sub-q at bedtime LEVEMIR 100 UNIT/ML SOLN INSULIN DETEMIR Inactive SULFAMETHOXAZOLE-TMP DS 800-160 MG TABS 1 TAB PO BID SULFAMETHOXAZOLE-TMP DS 800-160 MG TABS 362634 SULFAMETHOXAZOLE-TRIMETHOPRIM Inactive AMBIEN 10 MG TAB 1 tab by mouth at bedtime as needed for sleep AMBIEN 10 MG TAB 574606 ZOLPIDEM TARTRATE Inactive POTASSIUM CHLORIDE CEHLA ER 20 MEQ CR-TABS 1 tab PO daily POTASSIUM CHLORIDE CHELA ER 20 MEQ CR-TABS POTASSIUM CHLORIDE CHELA CR Inactive MIRALAX POWD 17 gms in 4 oz water or juice daily MIRALAX POWD 715183 POLYETHYLENE GLYCOL 3350 Inactive CVS VITAMIN C 500 MG TABS 1 po daily CVS VITAMIN C 500 MG TABS 731423 ASCORBIC ACID Inactive COZAAR 100 MG TABS 1 qd COZAAR 100 MG TABS 337170 LOSARTAN POTASSIUM Inactive ALLOPURINOL 300 MG TABS 1 qd ALLOPURINOL 300 MG TABS 333580 ALLOPURINOL Inactive BUDEPRION SR 150 MG [id number] 1 bid BUDEPRION SR 150 MG [id number] BUPROPION HCL Inactive DILANTIN 100 MG CAPS 3 cap tid DILANTIN 100 MG CAPS 846880 PHENYTOIN SODIUM EXTENDED Inactive HYDROCODONE-ACETAMINOPHEN 7.5-325 MG TABS 1 q 6 hrs prn HYDROCODONE-ACETAMINOPHEN 7.5-325 MG TABS 137047 HYDROCODONE- ACETAMINOPHEN Inactive GABAPENTIN 300 MG CAPS 1 CAP PO TID GABAPENTIN 300 MG CAPS 748815 GABAPENTIN Inactive GABAPENTIN 400 MG ORAL CAPS 1 TAB BY MOUTH THREE TIMES DAILY 2015 GABAPENTIN 400 MG ORAL CAPS 676027 GABAPENTIN Inactive METOPROLOL TARTRATE 50 MG ORAL TABS 1 TAB BY MOUTH TWICE DAILY METOPROLOL TARTRATE 50 MG ORAL TABS 940209 METOPROLOL TARTRATE Inactive ZYLOPRIM 300 MG TAB 1 BY MOUTH DAILY ZYLOPRIM 300 MG TAB 758536 ALLOPURINOL Inactive MECLIZINE HCL 25 MG CHEW TAB 1 four times a day as needed for dizziness 02/21 MECLIZINE HCL 25 MG CHEW TAB 692234 MECLIZINE HCL Inactive ATIVAN 0.5 MG TABS Take 1 tablet 2x daily PRN ATIVAN 0.5 MG TABS 167478 LORAZEPAM Inactive CELEXA 20 MG TABS Take 1 tablet 1x daily CELEXA 20 MG TABS 125907 CITALOPRAM HYDROBROMIDE Inactive ULORIC 40 MG ORAL TABS 1 daily for gout. ULORIC 40 MG ORAL TABS FEBUXOSTAT Inactive BUPROPION HCL ER (SR) 150 MG [id number] 1 twice a day for depression BUPROPION HCL ER (SR) 150 MG [id number] BUPROPION HCL Inactive MULTIVITAMINS CAPS 1 DAILY MULTIVITAMINS CAPS MULTIPLE VITAMIN Inactive NORCO 5-325 MG TABS 1-2 TAB Q 6 HRS PRN NORCO 5-325 MG TABS 717442 HYDROCODONE-ACETAMINOPHEN Inactive PHENYTOIN 50 MG CHEW 1 TAB PO BID PHENYTOIN 50 MG CHEW 4396352 PHENYTOIN Inactive FENTANYL 12 MCG/HR PT72 Apply to clean, dry skin and change every 72 hours FENTANYL 12 MCG/HR PT72 348902 FENTANYL Inactive FENTANYL 25 MCG/HR PT72 Apply to clean skin and change every 72 hours. 2013/ 05/22 FENTANYL 25 MCG/HR PT72 987022 FENTANYL Inactive Advance Directives Directive Description Start [...] mg/dL Encounters Code Encounter Date Provider Facility CPT-21190 Level 4 Est. Patient 18:47:35 BEE ROBBER Jonel Hemphill MD [facility] CPT-48022 Level 4 Est. Patient 10:04:48 BEE ROBBER Jonel Hemphill MD [facility] CPT-80054 Level 3 Est. Patient 19:05:03 CDT Jonel Hemphill MD [facility] CPT-27394 Level 3 Est. Patient 17:30:47 CDT Kevin Link MD [facility] CPT-35595 Level 3 Est. Patient 18:04:07 CDT [facility] CPT-16229 Level 3 Est. Patient 17:18:03 CDT Jonel [facility] CPT-60341 Level 3 Est. Patient 21:58:03 BEE ROBBER Jonel eHmphill MD [facility] CPT-73823 Level 4 Est. Patient 18:03:14 CDT Jonel Yeager [facility]-89022 Level 4 Est. Patient 13:24:53 CDT [facility] C[facility]-39834 Level 4 Est. Patient 09:15:44 CDT Jonel Hemphill MD [facility]-98936 Level 4 Est. Patient 19:16:01 CDT Jonel Hemphill MD [facility]-63769 Level 4 Est. Patient 11:25:16 CDT Jonel Hemphill MD [facility] CPT-05621 Level 4 Est. Patient 09:00:40 CDT Jonel Hemphill MD [facility]-78307 Level 4 Est. Patient 14:53:58 CDT Jonel Hemphill MD [facility] [place]-92416 Level 4 Est. Patient 22:59:01 CDT Jonel Hemphill MD [facility]-12812 Level 4 Est. Patient 09:29:57 CDT Jonel Hemphill MD [facility]-94595 Level 4 Est. Patient 12:35:53 BEE ROBBER Jonel Hemphill MD [facility]-02312 Level 4 Est. Patient 22:36:09 BEE ROBBER Jonel Hemphill MD [facility]-71249 Level 2 Est. Patient 15:14:15 BEE ROBBER Mayco Shah APRN [facility] CPT-45648 Level 4 Est. Patient 10:36:22 BEE ROBBER [facility] CPT-49599 Level 4 Est. Patient 22:01:13 BEE ROBBER Jonel Hemphill MD [facility]-57844 Level 3 Est. Patient 21:50:37 BEE ROBBER Jonel Hemphill [facility] CPT-08506 Level 4 Est. Patient 15:02:43 CDT Rubin Pierre MD [facility] CPT-41089 Level 4 Est. Patient 14:27:35 CDT Jonel Hemphill MD [facility]-55237 Level 4 Est. Patient 12:41:17 CDT Jonel Hemphill MD [facility]-10446 Level 4 Est. Patient 16:18:55 CDT Jonel Hemphill MD [facility]-73975 Level 4 Est. Patient 17:58:05 CDT Jonel Hemphill MD [facility]-33681 Level 4 Est. Patient 22:10:06 CDT Jonel Hemphill MD [facility]-53772 Level 4 Est. Patient 13:22:09 CDT Jonel Hemphill MD [facility]-80667 Level 4 Est. Patient 22:52:17 BEE ROBBER Jonel Hmephill MD [facility]-87579 Level 3 Est. Patient 22:34:10 BEE ROBBER Jonel Hemphill MD [facility]-68007 Level 4 Est. Patient 07:49:20 BEE ROBBER Jonel Hemphill MD [facility] Skilled CPT-46170 Level 3 Est. Patient 08:28:27 BEE ROBBER Jonel Hemphill MD [facility] Procedures Code Procedure Name Date Entry Date Standard Description CPT-G0438 Initial Annual Wellness Exam 09:32:09 BEE ROBBER CPT-93534 Level 3 Care Home 17:57:17 BEE ROBBER CPT-15191 Level 3 Care Home 21:14:15 BEE ROBBER CPT-80986 Level 3 Care Home 15:38:24 CDT CPT-31591 Level 3 Care Home 08:18:30 CDT CPT-00655 Level 3 Care Home 19:03:14 CDT CPT-32730 Level 3 Care Home 17:42:11 CDT CPT-48502 Level 3 Care Home 16:04:10 CDT CPT-33639 Level 3 Care Home 19:38:15 BEE ROBBER CPT-70966 Level 3 Care Home 19:28:48 BEE ROBBER CPT-59475 Level 3 Care Home 18:02:20 BEE ROBBER CPT-24779 Level 3 Care Home 15:02:14 BEE ROBBER CPT-22081 Level 3 Care Home 12:25:37 CDT CPT-86777 Level 3 Care Home 12:48:39 CDT CPT-02845 Level 3 Care Home 17:39:14 CDT CPT-07673 Level 3 Care Home 13:32:58 CDT CPT-84316 Level 3 Care Home 17:43:43 CDT CPT-59584 Level 3 Care Home 12:03:33 BEE ROBBER CPT-39104 Level 3 Care Home 18:47:28 BEE ROBBER CPT-04535 Level 3 Care Home 17:35:26 BEE ROBBER CPT-18323 Level 3 Care Home 18:44:49 BEE ROBBER CPT-01053 Level 3 Care Home 18:17:33 CDT CPT-37060 Level 3 Care Home 09:25:33 CDT CPT-62850 Level 3 Care Home 19:11:57 CDT CPT-79664 Level 3 Care Home 09:25:52 CDT CPT-52131 Level 3 Care Home 14:23:59 CDT CPT-84892 Level 3 Care Home 12:09:43 CDT CPT-56896 Level 3 Care Home 09:37:40 CDT CPT-78750 Level 3 Care Home 18:23:02 CDT CPT-61340 Level 3 Care Home 14:09:06 CDT CPT-49796 Level 3 Care Home 12:43:27 BEE ROBBER CPT-56511 Postop F/U Visit 14:10:15 BEE ROBBER CPT-91436 [facility]o [facility] Head and Neck 17:07:14 BEE ROBBER CPT-37542 Level 3 Care Home 16:14:37 BEE ROBBER CPT-42787 Port a cath flush 11:47:42 CDT CPT-78932 Port a cath flush 08:29:49 CDT CPT-OV Office Visit 14:27:58 BEE ROBBER
--- OUTSIDE RECORDS SUMMARY | 2016-08-07 11:17 | XMS REPORT | Clinical Summary ---
Author Author Admin, KARLAE Organization [facility] Address Unknown Phone Unavailable Allergies, Adverse 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, CLOUD SOLUTIONS ARCHITECT V58.69 Resolved Jonel Hemphill MD Long-term (current) [...] Coronary atherosclerosis of unspecified type of vessel, napaimute or graft FH DIABETES V18.0 Resolved Jonel [...] Coronary atherosclerosis of unspecified type of vessel, napaimute or graft CONSTIPATION 564.00 Resolved Jonel Hemphill [...] other specified site; multiple sites 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 USE, CARE HOME ICD-V58.69 Inactive Jonel Hemphill MD DIABETES, TYPE [...] TAB Q 6 HRS PRN HYDROCODONE- ACETAMINOPHEN 23984644916 Active Jonel Hemphill MD Active LEVEMIR 100 UNIT/ML SOLN 5 units sub-q at bedtime INSULIN DETEMIR 32618734829 No Longer Active Tova Perez Active MOBIC 15 MG TABS 1 tab PO daily for arthritis pain MELOXICAM 45454820833 No Longer Active Tova Perez Active GLUCAGEN 1 MG SOLR INJECT 1MG IM IF BS LESS THAN 60 & RES. IS UNABLE TO SWALLOW GLUCAGON HCL (RDNA) 38008687444 No Longer Active Tova Perez Active [facility] MILK OF MAGNESIA 1200 MG/15ML SUSP 30 ml daily for constipation MAGNESIUM HYDROXIDE 64870807326 No Longer Active Tova Perez Active IMDUR 120 MG [id number] 1 qd ISOSORBIDE MONONITRATE 19813455503 No Longer Active Tova Perez Active METFORMIN HCL 500 MG TABS 1 tablet by mouth twice daily METFORMIN HCL 42137725363 Active Tova Perez Active SULFAMETHOXAZOLE-TMP DS 800-160 MG TABS 1 TAB PO BID SULFAMETHOXAZOLE-TRIMETHOPRIM 58553897298 Active Tova Perez Active PHENYTOIN 50 MG CHEW 1 TAB PO BID PHENYTOIN 43064140805 Active Tova Perez Active MECLIZINE HCL 25 MG CHEW TAB 1 four times a day as needed for dizziness 02/21 MECLIZINE HCL 89909756958 Active Tova Perez Active GABAPENTIN 300 MG CAPS 1 CAP PO TID GABAPENTIN 43295539661 Active Tova Perez Active NEURONTIN 400 MG CAPS Take one by mouth 3 times daily, morning, afternoon and evening.] GABAPENTIN 49609158900 No Longer Active Tova Perez Active AMBIEN 10 MG TAB 1 tab by mouth at bedtime as needed for sleep ZOLPIDEM TARTRATE 81011300746 Active Jonel Hemphill MD Active POTASSIUM CHLORIDE CHELA ER 20 MEQ CR-TABS 1 tab PO daily POTASSIUM CHLORIDE CHELA CR 91218043160 Active Jonel Hemphill MD Active ANTIVERT 25 MG TABS 1 q 6 hrs prn MECLIZINE HCL 96342147405 No Longer Active Jonel Hemphill MD Active CLONIDINE HCL 0.2 MG TABS 1 q 8 hrs as needed -greater than 160-htn CLONIDINE HCL 87675272339 No Longer Active Jonel Hemphill MD Active AMBIEN 10 MG TABS 1 q hs prn ZOLPIDEM TARTRATE 44284838704 No Longer Active Jonel Hemphill MD Active GNP THERAPEUTIC-M TABS 1 qd MULTIPLE VITAMINS- MINERALS 06003747053 No Longer Active Jonel Hemphill MD Active METOPROLOL TARTRATE 50 MG TABS 1 bid METOPROLOL TARTRATE 60810340291 No Longer Active Jonel Hemphill MD Active METFORMIN HCL 500 MG TABS 1 bod with food METFORMIN HCL 35217599046 No Longer Active Jonel Hemphill MD Active LISINOPRIL 40 MG TABS 1 qd LISINOPRIL 85417429098 No Longer Active Jonel Hemphill MD Active HYDROCHLOROTHIAZIDE 25 MG TABS 1 qd HYDROCHLOROTHIAZIDE 43682054628 No Longer Active Jonel Hemphill MD Active DURAGESIC-25 25 MCG/HR PT72 place 1 patch on the skin q72hrs for pain FENTANYL 65449406806 No Longer Active Jonel Hemphill MD Active FENTANYL 75 MCG/HR PT72 place 1 patch on skin q72hrs fr pain 2012 FENTANYL 30927211398 No Longer Active Jonel Hemphill MD Active LASIX 20 MG TABS 1 tab PO q morning FUROSEMIDE 75522849023 Active Jonel Hemphill MD Active FUROSEMIDE 40 MG TABS 1 q am FUROSEMIDE 21860539891 No Longer Active Jonel Hemphill MD Active HEPARIN (PORCINE) LOCK FLUSH 100 UNIT/ML SOLN Flush port a cath monthly every three week on with Heparin and NS HEPARIN LOCK FLUSH 96846869797 Active Jonel Hemphill MD Active FENTANYL 100 MCG/HR PT72 Apply every 3 days FENTANYL 02789387503 Active Jonel Hemphill MD Active FENTANYL 25 MCG/HR PT72 Apply to clean skin and change every 72 hours. 07/03 FENTANYL 06747704599 No Longer Active Jonel Hemphill MD Active FENTANYL 50 MCG/HR PT72 place 1 patch on skin q72 hours FENTANYL 87992319728 No Longer Active Mayco Shah APRN Active HYDROCODONE-ACETAMINOPHEN 7.5-325 MG TABS 1 q 6 hrs prn HYDROCODONE-ACETAMINOPHEN 18632584507 Active Jonel Hemphill MD Active ATIVAN 0.5 MG TABS Take 1 tablet 2x daily LORAZEPAM 26524858172 Active Jonel Hemphill MD Active CELEXA 20 MG TABS Take 1 tablet 1x daily CITALOPRAM HYDROBROMIDE 16180505592 Active Jonel Hemphill MD Active MIRALAX POWD 17 gms in 4 oz water or juice daily POLYETHYLENE GLYCOL 3350 74516284017 Active Rubin Pierre MD Active DURAGESIC-12 12 MCG/HR PT72 APPLY PATCH TO SKIN AND CHANGE EVERY 72 HOURS, ROTATE SITES FENTANYL 32938413382 No Longer Active Fozia HERNANDEZ Active [facility] VITAMIN C 500 MG TABS 1 po daily ASCORBIC ACID 53018780684 Active Mahogany Bagley Active FUROSEMIDE 20 MG TABS 1 qd FUROSEMIDE 33215736973 No Longer Active Mahogany Bagley Active ADULT ASPIRIN EC LOW STRENGTH 81 MG TBEC 1 qd ASPIRIN 46900474485 Active MARY Perez Active DILANTIN 100 MG CAPS 3 cap tid PHENYTOIN SODIUM EXTENDED 49587598572 Active MARY Perez Active BUDEPRION SR 150 MG [id number] 1 bid BUPROPION HCL 17525713226 Active MARY Perez Active ALLOPURINOL 300 MG TABS 1 qd ALLOPURINOL 02514421113 Active MARY Perez Active COZAAR 100 MG TABS 1 qd LOSARTAN POTASSIUM 81200100727 Active MARY Perez Active FUROSEMIDE 20 MG TABS 1 qd FUROSEMIDE 20 MG TABS 493831 FUROSEMIDE Inactive DURAGESIC-12 12 MCG/HR PT72 APPLY PATCH TO SKIN AND CHANGE EVERY 72 HOURS, ROTATE SITES DURAGESIC-12 12 MCG/HR PT72 411176 FENTANYL Inactive FENTANYL 50 MCG/HR PT72 place 1 patch on skin q72 hours FENTANYL 50 MCG/HR PT72 294618 FENTANYL Inactive FUROSEMIDE 40 MG TABS 1 q am FUROSEMIDE 40 MG TABS 151663 FUROSEMIDE Inactive FENTANYL 75 MCG/HR PT72 place 1 patch on skin q72hrs fr pain 2012 FENTANYL 75 MCG/HR PT72 946062 FENTANYL Inactive DURAGESIC-25 25 MCG/HR PT72 place 1 patch on the skin q72hrs for pain DURAGESIC-25 25 MCG/HR PT72 772090 FENTANYL Inactive HYDROCHLOROTHIAZIDE 25 MG TABS 1 qd HYDROCHLOROTHIAZIDE 25 MG TABS 879982 HYDROCHLOROTHIAZIDE Inactive LISINOPRIL 40 MG TABS 1 qd LISINOPRIL 40 MG TABS 405343 LISINOPRIL Inactive METFORMIN HCL 500 MG TABS 1 bod with food METFORMIN HCL 500 MG TABS 874018 METFORMIN HCL Inactive METOPROLOL TARTRATE 50 MG TABS 1 bid METOPROLOL TARTRATE 50 MG TABS 064342 METOPROLOL TARTRATE Inactive GNP THERAPEUTIC-M TABS 1 qd GNP THERAPEUTIC-M TABS MULTIPLE VITAMINS-MINERALS Inactive AMBIEN 10 MG TABS 1 q hs prn AMBIEN 10 MG TABS 825597 ZOLPIDEM TARTRATE Inactive CLONIDINE HCL 0.2 MG TABS 1 q 8 hrs as needed -greater than 160-htn CLONIDINE HCL 0.2 MG TABS 653149 CLONIDINE HCL Inactive ANTIVERT 25 MG TABS 1 q 6 hrs prn ANTIVERT 25 MG TABS MECLIZINE HCL Inactive NEURONTIN 400 MG CAPS Take one by mouth 3 times daily, morning, afternoon and evening.] NEURONTIN 400 MG CAPS 190729 GABAPENTIN Inactive IMDUR 120 MG [id number] 1 qd IMDUR 120 MG [id number] ISOSORBIDE MONONITRATE Inactive [facility] MILK OF MAGNESIA [...] for arthritis pain MOBIC 15 MG TABS 683704 MELOXICAM Inactive LEVEMIR 100 UNIT/ML SOLN 5 units sub-q at bedtime LEVEMIR 100 UNIT/ML SOLN INSULIN DETEMIR Inactive FENTANYL 25 MCG/HR PT72 Apply to clean skin and change every 72 hours. 07/03 FENTANYL 25 MCG/HR PT72 528047 FENTANYL Inactive Advance Directives Directive Description Start Date ADVANCE DIRECTIVE Immunizations Vaccine Administration Date Value Standard Description influenza immunization (Flu Vax) has been administered Influenza - Unspecified Formulation [CVX88] influenza virus vaccine, unspecified formulation pneumococcal immunization administered Pneumovax 23 [CVX33] pneumococcal polysaccharide vaccine, 23 valent Vital Signs Date Name Value Unit Range Description blood pressure, diastolic, supine 85 mm[Hg] BP augustin blood pressure, systolic, supine E&M 140 mm[Hg] BP sys pulse rate E&M 73 /min Heart rate respiratory rate E&M 18 /min Resp rate temperature E&M 96.6 [degF] Body temperature blood pressure, diastolic 87 mm[Hg] BP augustin blood pressure, systolic 174 mm[Hg] BP sys pulse rate E&M 74 /min Heart rate respiratory rate E&M 20 /min Resp rate temperature E&M 97.6 [degF] Body temperature blood pressure, diastolic 87 mm[Hg] BP augustin blood pressure, systolic 156 mm[Hg] BP sys pulse rate E&M 70 /min Heart rate respiratory rate E&M 20 /min Resp rate temperature E&M 98 [degF] Body temperature blood pressure, diastolic 847 mm[Hg] BP augustin blood pressure, systolic 163 mm[Hg] BP sys pulse rate E&M 78 /min Heart rate respiratory rate E&M 83 /min Resp rate temperature E&M 98.9 [degF] Body temperature weight E&M 377 [lb_av] Weight Measured blood pressure, diastolic 77 mm[Hg] BP augustin blood pressure, systolic 134 mm[Hg] BP sys height E&M 68 [in_us] Bdy height pulse rate E&M 72 /min Heart rate respiratory rate E&M 18 /min Resp rate temperature E&M 97.9 [degF] Body temperature weight E&M 340 [lb_av] Weight Measured blood pressure, diastolic 66 mm[Hg] BP augustin blood pressure, systolic 110 mm[Hg] BP sys pulse rate E&M 71 /min Heart rate respiratory rate E&M 20 /min Resp rate temperature E&M 96.1 [degF] Body temperature blood pressure, diastolic 81 mm[Hg] BP augustin [...] temperature blood pressure, diastolic 84 mm[Hg] BP augustni blood pressure, systolic 187 mm[Hg] BP sys [...] temperature weight E&M 347 [lb_av] Weight Measured Diagnostic Results Date Name [...] Acid - Chemistry sodium, serum 141 mmol/L 114-538 8139/05/09 potassium, serum 3.9 mmol/L 3.5-5.2 chloride, serum [...] dipstick Negative Negative sodium, serum 140 mmol/L 493-176 8264/02/18 potassium, serum 3.8 mmol/L 3.5-5.2 chloride, serum [...] Negative Encounters Code Encounter Date Provider Facility CPT-96795 Level 3 Est. Patient 18:04:07 CDT Jonel Hemphill MD [facility] CPT-42628 Level 3 Est. Patient 17:18:03 CDT Jonel Hemphill MD [facility] CPT-24822 Level 3 Est. Patient 21:58:03 LOOP TACKER Jonel Hemphill MD [facility] CPT-80536 Level 4 Est. Patient 18:03:14 CDT Jonel Yeager [facility]-58638 Level 4 Est. Patient 13:24:53 CDT Jonel Yeager [facility]-63733 Level 4 Est. Patient 09:15:44 CDT Jonel Hemphill MD [facility]-43562 Level 4 Est. Patient 19:16:01 CDT Jonel Hemphill MD [facility]-62549 Level 4 Est. Patient 11:25:16 CDT Jonel Hemphill MD [facility] CPT-31768 Level 4 Est. Patient 09:00:40 CDT Jonel Hemphill MD [facility]-42641 Level 4 Est. Patient 14:53:58 CDT Jonel Hemphill MD [facility] CPT-41411 Level 4 Est. Patient 22:59:01 CDT Jonel Hemphill MD [facility]-36969 Level 4 Est. Patient 09:29:57 CDT Jonel Hemphill MD [facility]-69172 Level 4 Est. Patient 12:35:53 LOOP TACKER Jonel Hemphill MD [facility]-38500 Level 4 Est. Patient 22:36:09 LOOP TACKER Jonel Hemphill MD [facility]-44414 Level 2 Est. Patient 15:14:15 LOOP TACKER Mayco Shah APRN [facility] CPT-87714 Level 4 Est. Patient 10:36:22 LOOP TACKER Jonel Hemphill MD [facility] CPT-84580 Level 4 Est. Patient 22:01:13 LOOP TACKER Jonel Hemphill MD [facility]-07121 Level 3 Est. Patient 21:50:37 LOOP TACKER Jonel Hemphill MD [facility] CPT-85697 Level 4 Est. Patient 15:02:43 CDT Rubin Pierre MD [facility] CPT-25146 Level 4 Est. Patient 14:27:35 CDT Jonel Hemphill MD [facility]-58279 Level 4 Est. Patient 12:41:17 CDT Jonel Hemphill MD [facility] CPT-65381 Level 4 Est. Patient 16:18:55 CDT Jonel Hemphill MD [facility] CPT-68504 Level 4 Est. Patient 17:58:05 CDT Jonel Hemphill MD [facility] CPT-76188 Level 4 Est. Patient 22:10:06 CDT Jonel Hemphill MD [facility]-47883 Level 4 Est. Patient 13:22:09 CDT Jonel Hemphill MD [facility] CPT-36275 Level 4 Est. Patient 22:52:17 LOOP TACKER Jonel Hemphill MD [facility] CPT-11055 Level 3 Est. Patient 22:34:10 LOOP TACKER Jonel Hemphill MD [facility] CPT-71768 Level 4 Est. Patient 07:49:20 LOOP TACKER Jonel Hemphill MD [facility] Skilled CPT-83054 Level 3 Est. Patient 08:28:27 LOOP TACKER Jonel Hemphill MD [facility] Procedures Code Procedure Name Date Entry Date Standard Description CPT-82711 Level 3 Penitentiary 18:17:33 CDT CPT-73238 Level 3 Penitentiary 09:25:33 CDT CPT-96577 Level 3 Penitentiary 19:11:57 CDT CPT-57269 Level 3 Penitentiary 09:25:52 CDT CPT-21085 Level 3 Penitentiary 14:23:59 CDT CPT-61294 Level 3 Penitentiary 12:09:43 CDT CPT-69646 Level 3 Penitentiary 09:37:40 CDT CPT-81500 Level 3 Penitentiary 18:23:02 CDT CPT-45479 Level 3 Penitentiary 14:09:06 CDT CPT-34045 Level 3 Penitentiary 12:43:27 LOOP TACKER CPT-28361 Postop F/U Visit 14:10:15 LOOP TACKER CPT-47535 [facility] 17:07:14 LOOP TACKER CPT-53314 Level 3 Penitentiary 16:14:37 LOOP TACKER CPT-39720 Port a cath flush 11:47:42 CDT CPT-21468 Port a cath flush 08:29:49 CDT CPT-OV Office Visit 14:27:58 LOOP TACKER
--- OUTSIDE RECORDS SUMMARY | 2016-08-07 11:19 | XMS REPORT | Continuity of Care Document ---
Author Author [facility] Organization [facility] Address Unknown Phone Unavailable Allergies Active Description Code Type Severity Reaction Onset Reported/Identified Relationship to Patient Clinical Status Yes Penicillins 476 Drug Allergy N/A N/A Yes penicillins 3 Drug N/A N/A Yes Penicillins 476 Drug Allergy N/A N/A 12/02/2015 Confirmed or Verified Medications Problems Date Dx Coded Attending Type Code Diagnosis Diagnosed By 02/14/2013 Dank Huitron MD 250.00 DIAB PAIGE WO COMPL, TYPE II OR UNSPEC TYPE, NOT UN 02/14/2013 Dank Huitron MD 274.9 GOUT NOS 02/14/2013 Dank Huitron MD 278.01 MORBID OBESITY 02/14/2013 Dank Huitron MD 311 DEPRESSIVE DISORDER NEC 02/14/2013 Dank Huitron MD 327.23 OBSTRUCTIVE SLEEP APNEA (ADULT) (PEDIATRIC) 02/14/2013 Dank Huitron MD 345.90 EPILEPSY UNSPEC W/O MENTION INTRACTABLE EPILEPSY 02/14/2013 Dank Huitron MD 401.9 HYPERTENSION NOS 02/14/2013 Dank Huitron MD 410.71 AC MYOCARDIAL INFARCT,SUBENDO INFARCT, INITIAL EPIS 02/14/2013 Dank Huitron MD 412 OLD MYOCARDIAL INFARCT 02/14/2013 Dank Huitron MD 414.01 CORONARY ATHEROSCLEROSIS OF [place] CORONARY VESSEL 02/14/2013 Dank Huitron MD 427.31 ATRIAL FIBRILLATION 02/14/2013 Dank Huitron MD 438.89 OTH LATE EFFECT-CEREBROVASCULAR DISEASE 02/14/2013 Dank Huitron MD 459.81 VENOUS INSUFFICIENCY NOS 02/14/2013 Dank Huitron MD 496 CHR AIRWAY OBSTRUCT NEC 02/14/2013 Dank Huitron MD 682.6 CELLULITIS OF LEG 02/14/2013 Dank Huitron MD 707.10 ULCER OF LOWER LIMB NOS 02/14/2013 Elana ROSARIO Dank Jones 729.89 [facility] [place] SYMPT LIMB NEC 09/13/2014 FRANKO PRIETO 250.00 DM2/NOS UNCOMP NSU 09/13/2014 FRANKO PRIETO 585.9 CHRONIC RENAL DISEASE 12/07/2015 WINSTON GAMEZ MD E11.9 Type 2 diabetes mellitus without complications 12/07/2015 WINSTON GAMEZ MD F33.3 Major depressv disorder, recurrent, severe w psych symptoms 12/07/2015 WINSTON GAMEZ MD G31.84 Mild cognitive impairment, so stated 12/07/2015 WINSTON GAMEZ MD G47.33 Obstructive sleep apnea (adult) ( pediatric) 12/07/2015 WINSTON GAMEZ MD I10 Essential (primary) hypertension 12/07/2015 WINSTON GAMEZ MD I48.91 Unspecified atrial fibrillation 12/07/2015 WINSTON GAMEZ MD 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 12/07/2015 WINSTON GAMEZ MD 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 02/17/2016 WINSTON GAMEZ MD E11.9 Type 2 diabetes mellitus without complications 02/17/2016 WINSTON GAMEZ MD E78.5 Hyperlipidemia, unspecified 02/17/2016 WINSTON GAMEZ MD F01.51 Vascular dementia with behavioral disturbance 02/17/2016 WINSTON GAMEZ MD F31.4 Bipolar disord, crnt epsd depress, sev, w/o psych features 02/17/2016 WINSTON GAMEZ MD G47.33 Obstructive sleep apnea (adult) ( pediatric) 02/17/2016 WINSTON GAMEZ MD I10 Essential (primary) hypertension 02/17/2016 WINSTON GAMEZ MD I67.89 Other cerebrovascular disease 02/17/2016 WINSTON GAMEZ MD R45.1 Restlessness and agitation 02/17/2016 WINSTON GAMEZ MD R45.850 Homicidal ideations 02/17/2016 WINSTON GAMEZ MD R82.79 Other abnormal findings on microbiolog examination of urine 03/27/2016 D B96.4 Proteus (mirabilis) (morganii) causing dis classd elswhr 03/27/2016 D E11.9 Type 2 diabetes mellitus without complications 03/27/2016 D F01.50 Vascular dementia without behavioral disturbance 03/27/2016 D F33.2 Major depressv disorder, recurrent severe w/o psych features 03/27/2016 D N39.0 Urinary tract infection, site not specified 03/27/2016 D R45.1 Restlessness and agitation 03/27/2016 D R60.0 Localized edema Procedures Code Description [place] [address] [employer] METABOLIC PANEL 09/13/2014 36749 GLYCOSYLATED HEMOGLOBIN TEST 09/13/2014 A0425 GROUND MILEAGE A0427 ALS1-EMERGENCY 03313 ROUTINE VENIPUNCTURE 04/29/2015 59503 X-RAY EXAM OF TAILBONE 04/29/2015 12959 X-RAY EXAM OF SHOULDER 04/29/2015 44670 X-RAY EXAM OF WRIST 04/29/2015 04710 COMPLETE CBC W/AUTO DIFF WBC 04/29/2015 25607 THER/PROPH/DIAG INJ, IV PUSH 04/29/2015 24879 TX/PRO/DX INJ NEW DRUG ADDON 04/29/2015 04536 EMERGENCY DEPT VISIT 04/29/2015 16964 EMERGENCY DEPT VISIT 04/29/2015 J1885 TORADOL SYR 30MG/ML 04/29/2015 J2405 ONDANSETRON HCL INJECTION 04/29/2015 J3010 FENTANYL CITRATE INJECITON 04/29/2015 65556 ROUTINE VENIPUNCTURE 07/21/2015 41830 CHEST X-RAY 07/20 60802 [employer] METABOLIC PANEL 07/21/2015 72322 ASSAY OF DIGOXIN 07/21/2015 91482 ASSAY OF LIPASE 07/21/2015 87172 NATRIURETIC PEPTIDE 07/21/2015 80955 ASSAY OF TROPONIN, QUANT 07/21/2015 57260 COMPLETE CBC W/AUTO DIFF WBC 07/21/2015 15583 ELECTROCARDIOGRAM, TRACING 07/21/2015 81753 THER/PROPH/DIAG INJ, IV PUSH 07/21/2015 16655 EMERGENCY DEPT VISIT 07/21/2015 A9270 NON-COVERED ITEM OR SERVICE 07/21/2015 J1642 INJ HEPARIN SODIUM PER 10 U 07/21/2015 J1885 TORADOL SYR 30MG/ML 07/21/2015 87745 METABOLIC PANEL TOTAL CA 08/03/2015 65931 X-RAY EXAM OF THORACIC SPINE 08/25/2015 83008 X-RAY EXAM OF ANKLE 08/25/2015 51710 EMERGENCY DEPT VISIT 08/25/2015 59354 EMERGENCY DEPT VISIT 08/25/2015 A9270 NON-COVERED ITEM OR SERVICE 08/25/2015 Encounters ACCT No. Visit Date/Time Discharge Status Pt. Type Provider Facility Loc./Unit Complaint [id number] 02/14/2013 20:19:00 2013 17:00:00 DIS Inpatient Elana ROSARIO, [facility] [id number].3TS
--- OUTSIDE RECORDS SUMMARY | 2016-08-07 11:19 | XMS REPORT | Clinical Summary ---
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 Resolved Jonel Hemphill MD Long-term (current) [...] Coronary atherosclerosis of unspecified type of vessel, [place] or graft FH DIABETES V18.0 Resolved Jonel [...] Coronary atherosclerosis of unspecified type of vessel, [place] or graft CONSTIPATION 564.00 Resolved Jonel Hemphill [...] Jonel Hemphill MD Acute bronchitis 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 USE, TIRE MECHANIC ICD-V58.69 Inactive Jonel Hemphill MD DIABETES, TYPE [...] Start Date Stop Date Generic Name [facility] Status Provider Patient Instruction METFORMIN HCL 1000 MG TABS 1 tablet by mouth twice daily METFORMIN HCL 79426622945 Active Marleni Romero Active HYDROCODONE-ACETAMINOPHEN 7.5-325 MG TABS 1 to 2 four times a day as needed for pain HYDROCODONE-ACETAMINOPHEN 17839580281 Active Jonel Hemphill MD Active FENTANYL 12 MCG/HR PT72 Apply to clean, dry skin and change every 72 hours FENTANYL 08415452262 Active Jonel Hemphill MD Active KLOR-CON 20 MEQ ORAL PACK 1 BY MOUTH DAILY POTASSIUM CHLORIDE 55671694501 Active Marleni Romero Active A+D FIRST AID EXT OINT APPLY OINTMENT AND RUFINO WRAPS TO LOWER EXTEREMETIES DAILY SKIN PROTECTANTS, MISC. 26709259473 Active Jonel Hemphill MD Active NYSTATIN 007163 UNIT/GM EXT OINT APPLY PRN TID TO GAULDING/RASH IN ABDOMINAL FOLDS NYSTATIN 28791975314 Active Jonel Hemphill MD Active ATIVAN 0.5 MG TABS Take 1 tablet 2x daily PRN LORAZEPAM 13746527451 Active Jonel Hemphill MD Active GABAPENTIN 400 MG ORAL CAPS 1 TAB BY MOUTH THREE TIMES DAILY GABAPENTIN 19465787228 Active Jonel Hemphill MD Active GABAPENTIN 300 MG CAPS 1 CAP PO TID GABAPENTIN 47508612691 No Longer Active Jonel Hemphill MD Active DILANTIN 100 MG ORAL CAPS 1 THREE TIMES DAILY FOR SEIZURES PHENYTOIN SODIUM EXTENDED 82460918407 Active Marleni Romero Active CPAP APPLY AT HS CPAP Active Jonel Hemphill MD Active METOPROLOL TARTRATE 50 MG ORAL TABS 1 TAB BY MOUTH TWICE DAILY METOPROLOL TARTRATE 36864660115 Active Jonel Hemphill MD Active LISINOPRIL 40 MG TABS 1 tablet by mouth twice daily, for blood pressure 03/31 LISINOPRIL 48100019726 Active Jonel Hemphill MD Active BUPROPION HCL ER (SR) 150 MG [id number] 1 twice a day for depression BUPROPION HCL 63264141484 Active Jonel Hemphill MD Active MULTIVITAMINS CAPS 1 DAILY MULTIPLE VITAMIN 23638836079 Active Jonel Hemphill MD Active ZYLOPRIM 300 MG TAB 1 BY MOUTH DAILY ALLOPURINOL 51726833476 Active Jonel Hemphill MD Active HYDROCODONE-ACETAMINOPHEN 7.5-325 MG TABS 1 q 6 hrs prn HYDROCODONE-ACETAMINOPHEN 96273874408 No Longer Active Jonel Hemphill MD Active DILANTIN 100 MG CAPS 3 cap tid PHENYTOIN SODIUM EXTENDED 33886687486 No Longer Active Jonel Hemphill MD Active BUDEPRION SR 150 MG [id number] 1 bid BUPROPION HCL 07832739392 No Longer Active Jonel Hemphill MD Active ALLOPURINOL 300 MG TABS 1 qd ALLOPURINOL 80018475059 No Longer Active Jonel Hemphill MD Active COZAAR 100 MG TABS 1 qd LOSARTAN POTASSIUM 01001087223 No Longer Active Jonel Hemphill MD Active CVS VITAMIN C 500 MG TABS 1 po daily ASCORBIC ACID 44082344699 No Longer Active Jonel Hemphill MD Active MIRALAX POWD 17 gms in 4 oz water or juice daily POLYETHYLENE GLYCOL 3350 28868574374 No Longer Active Jonel Hemphill MD Active POTASSIUM CHLORIDE CHELA ER 20 MEQ CR-TABS 1 tab PO daily POTASSIUM CHLORIDE CHELA CR 29388351863 No Longer Active Jonel Hemphill MD Active AMBIEN 10 MG TAB 1 tab by mouth at bedtime as needed for sleep ZOLPIDEM TARTRATE 83451920524 No Longer Active Jonel Hemphill MD Active SULFAMETHOXAZOLE-TMP DS 800-160 MG TABS 1 TAB PO BID SULFAMETHOXAZOLE-TRIMETHOPRIM 11527162766 No Longer Active Jonel Hemphill MD Active NORCO 5-325 MG TABS 1-2 TAB Q 6 HRS PRN HYDROCODONE- ACETAMINOPHEN 19251466824 Active Jonel Hemphill MD Active LEVEMIR 100 UNIT/ML SOLN 5 units sub-q at bedtime INSULIN DETEMIR 03051733984 No Longer Active Tova Perez Active MOBIC 15 MG TABS 1 tab PO daily for arthritis pain MELOXICAM 24125596354 No Longer Active Tova Perez Active GLUCAGEN 1 MG SOLR INJECT 1MG IM IF BS LESS THAN 60 & RES. IS UNABLE TO SWALLOW GLUCAGON HCL (RDNA) 54502546919 No Longer Active Tova Perez Active CVS MILK OF MAGNESIA 1200 MG/15ML SUSP 30 ml daily for constipation MAGNESIUM HYDROXIDE 08834346779 No Longer Active Tova Perez Active IMDUR 120 MG [id number] 1 qd ISOSORBIDE MONONITRATE 35525782049 No Longer Active Tova Perez Active PHENYTOIN 50 MG CHEW 1 TAB PO BID PHENYTOIN 08281086466 Active Tova Perez Active MECLIZINE HCL 25 MG CHEW TAB 1 four times a day as needed for dizziness 02/21 MECLIZINE HCL 49949359807 Active Tova Perez Active NEURONTIN 400 MG CAPS Take one by mouth 3 times daily, morning, afternoon and evening.] GABAPENTIN 86647207715 No Longer Active Tova Perez Active ANTIVERT 25 MG TABS 1 q 6 hrs prn MECLIZINE HCL 55425210697 No Longer Active Jonel Hemphill MD Active CLONIDINE HCL 0.2 MG TABS 1 q 8 hrs as needed -greater than 160-htn CLONIDINE HCL 36930391490 No Longer Active Jonel Hemphill MD Active AMBIEN 10 MG TABS 1 q hs prn ZOLPIDEM TARTRATE 12885737794 No Longer Active Jonel Hemphill MD Active GNP THERAPEUTIC-M TABS 1 qd MULTIPLE VITAMINS- MINERALS 85014758501 No Longer Active Jonel Hemphill MD Active METOPROLOL TARTRATE 50 MG TABS 1 bid METOPROLOL TARTRATE 27712448788 No Longer Active Jonel Hemphill MD Active METFORMIN HCL 500 MG TABS 1 bod with food METFORMIN HCL 20979619705 No Longer Active Jonel Hemphill MD Active LISINOPRIL 40 MG TABS 1 qd LISINOPRIL 11056452184 No Longer Active Jonel Hemphill MD Active HYDROCHLOROTHIAZIDE 25 MG TABS 1 qd HYDROCHLOROTHIAZIDE 71259933015 No Longer Active Joenl Hemphill MD Active DURAGESIC-25 25 MCG/HR PT72 place 1 patch on the skin q72hrs for pain FENTANYL 09630391500 No Longer Active Jonel Hemphill MD Active FENTANYL 75 MCG/HR PT72 place 1 patch on skin q72hrs fr pain 2012 FENTANYL 39177183431 No Longer Active Jonel Hemphill MD Active LASIX 20 MG TABS 1 tab PO q morning FUROSEMIDE 99020186552 Active Jonel Hemphill MD Active FUROSEMIDE 40 MG TABS 1 q am FUROSEMIDE 94075172772 No Longer Active Jonel Hemphill MD Active HEPARIN (PORCINE) LOCK FLUSH 100 UNIT/ML SOLN Flush port a cath monthly every three week on with Heparin and NS HEPARIN LOCK FLUSH 13247527436 Active Jonel Hemphill MD Active FENTANYL 100 MCG/HR PT72 Apply every 3 days FENTANYL 90563180684 Active Jonel Hemphill MD Active FENTANYL 25 MCG/HR PT72 Apply to clean skin and change every 72 hours. 07/03 FENTANYL 95971018533 No Longer Active Jonel Hemphill MD Active FENTANYL 50 MCG/HR PT72 place 1 patch on skin q72 hours FENTANYL 24424882477 No Longer Active Mayco Shah APRN Active CELEXA 20 MG TABS Take 1 tablet 1x daily CITALOPRAM HYDROBROMIDE 75279373760 Active Jonel Hemphill MD Active DURAGESIC-12 12 MCG/HR PT72 APPLY PATCH TO SKIN AND CHANGE EVERY 72 HOURS, ROTATE SITES FENTANYL 27004278251 No Longer Active Fozia Amador RMA Active FUROSEMIDE 20 MG TABS 1 qd FUROSEMIDE 17977373962 No Longer Active Mahogany Norco Active ADULT ASPIRIN EC LOW STRENGTH 81 MG TBEC 1 qd ASPIRIN 76050449899 Active MARY Perez Active FUROSEMIDE 20 MG TABS 1 qd FUROSEMIDE 20 MG TABS 020485 FUROSEMIDE Inactive DURAGESIC-12 12 MCG/HR PT72 APPLY PATCH TO SKIN AND CHANGE EVERY 72 HOURS, ROTATE SITES DURAGESIC-12 12 MCG/HR PT72 910016 FENTANYL Inactive FENTANYL 50 MCG/HR PT72 place 1 patch on skin q72 hours FENTANYL 50 MCG/HR PT72 990201 FENTANYL Inactive FUROSEMIDE 40 MG TABS 1 q am FUROSEMIDE 40 MG TABS 946856 FUROSEMIDE Inactive FENTANYL 75 MCG/HR PT72 place 1 patch on skin q72hrs fr pain 2012 FENTANYL 75 MCG/HR PT72 588484 FENTANYL Inactive DURAGESIC-25 25 MCG/HR PT72 place 1 patch on the skin q72hrs for pain DURAGESIC-25 25 MCG/HR PT72 206094 FENTANYL Inactive HYDROCHLOROTHIAZIDE 25 MG TABS 1 qd HYDROCHLOROTHIAZIDE 25 MG TABS 942919 HYDROCHLOROTHIAZIDE Inactive LISINOPRIL 40 MG TABS 1 qd LISINOPRIL 40 MG TABS 675935 LISINOPRIL Inactive METFORMIN HCL 500 MG TABS 1 bod with food METFORMIN HCL 500 MG TABS 122284 METFORMIN HCL Inactive METOPROLOL TARTRATE 50 MG TABS 1 bid METOPROLOL TARTRATE 50 MG TABS 111907 METOPROLOL TARTRATE Inactive GNP THERAPEUTIC-M TABS 1 qd GNP THERAPEUTIC-M TABS MULTIPLE VITAMINS-MINERALS Inactive AMBIEN 10 MG TABS 1 q hs prn AMBIEN 10 MG TABS 932162 ZOLPIDEM TARTRATE Inactive CLONIDINE HCL 0.2 MG TABS 1 q 8 hrs as needed -greater than 160-htn CLONIDINE HCL 0.2 MG TABS 864721 CLONIDINE HCL Inactive ANTIVERT 25 MG TABS 1 q 6 hrs prn ANTIVERT 25 MG TABS MECLIZINE HCL Inactive NEURONTIN 400 MG CAPS Take one by mouth 3 times daily, morning, afternoon and evening.] NEURONTIN 400 MG CAPS 201123 GABAPENTIN Inactive IMDUR 120 MG [id number] 1 qd IMDUR 120 MG [id number] ISOSORBIDE MONONITRATE Inactive CVS MILK OF MAGNESIA [...] for arthritis pain MOBIC 15 MG TABS 876323 MELOXICAM Inactive LEVEMIR 100 UNIT/ML SOLN 5 units sub-q at bedtime LEVEMIR 100 UNIT/ML SOLN INSULIN DETEMIR Inactive SULFAMETHOXAZOLE-TMP DS 800-160 MG TABS 1 TAB PO BID SULFAMETHOXAZOLE-TMP DS 800-160 MG TABS 835714 SULFAMETHOXAZOLE-TRIMETHOPRIM Inactive AMBIEN 10 MG TAB 1 tab by mouth at bedtime as needed for sleep AMBIEN 10 MG TAB 549789 ZOLPIDEM TARTRATE Inactive POTASSIUM CHLORIDE CHELA ER 20 MEQ CR-TABS 1 tab PO daily POTASSIUM CHLORIDE CHELA ER 20 MEQ CR-TABS POTASSIUM CHLORIDE CHELA CR Inactive MIRALAX POWD 17 gms in 4 oz water or juice daily MIRALAX POWD 600703 POLYETHYLENE GLYCOL 3350 Inactive CVS VITAMIN C 500 MG TABS 1 po daily CVS VITAMIN C 500 MG TABS 836533 ASCORBIC ACID Inactive COZAAR 100 MG TABS 1 qd COZAAR 100 MG TABS 209021 LOSARTAN POTASSIUM Inactive ALLOPURINOL 300 MG TABS 1 qd ALLOPURINOL 300 MG TABS 192635 ALLOPURINOL Inactive BUDEPRION SR 150 MG [id number] 1 bid BUDEPRION SR 150 MG [id number] BUPROPION HCL Inactive DILANTIN 100 MG CAPS 3 cap tid DILANTIN 100 MG CAPS 116956 PHENYTOIN SODIUM EXTENDED Inactive HYDROCODONE-ACETAMINOPHEN 7.5-325 MG TABS 1 q 6 hrs prn HYDROCODONE-ACETAMINOPHEN 7.5-325 MG TABS 084314 HYDROCODONE- ACETAMINOPHEN Inactive GABAPENTIN 300 MG CAPS 1 CAP PO TID GABAPENTIN 300 MG CAPS 256880 GABAPENTIN Inactive FENTANYL 25 MCG/HR PT72 Apply to clean skin and change every 72 hours. 07/03 FENTANYL 25 MCG/HR PT72 464385 FENTANYL Inactive Advance Directives Directive Description Start [...] A/B - Chemistry sodium, serum 142 mmol/L 214-357 8583/01/20 potassium, serum 3.9 mmol/L 3.5-5.2 chloride, serum [...] Lab Report: CBC W/DIFF, Comp. Metabolic Panel, [facility] A/B - Hematology leukocyte count, [...] 4.3-6.0 Encounters Code Encounter Date Provider Facility CPT-21482 Level 3 Est. Patient 18:04:07 CDT Jonel Hemphill MD [facility] CPT-35296 Level 3 Est. Patient 17:18:03 CDT Jonel Hemphill MD [facility] CPT-82933 Level 3 Est. Patient 21:58:03 ORCHID HAND Jonel Hemphill MD [facility]-78626 Level 4 Est. Patient 18:03:14 CDT Jonel Yeager [facility]-95021 Level 4 Est. Patient 13:24:53 CDT Jonel Yeager [facility]-43905 Level 4 Est. Patient 09:15:44 CDT Jnoel Yeager [facility]-48222 Level 4 Est. Patient 19:16:01 CDT Jonel Yeager [facility]-39040 Level 4 Est. Patient 11:25:16 CDT Jonel Hemphill MD [facility] CPT-19940 Level 4 Est. Patient 09:00:40 CDT Jonel Yeager [facility]-65809 Level 4 Est. Patient 14:53:58 CDT Jonle Hemphill MD [facility] CPT-77762 Level 4 Est. Patient 22:59:01 CDT Jonel Hemphill MD [facility]-18283 Level 4 Est. Patient 09:29:57 CDT Jonel Hemphill MD [facility]-74788 Level 4 Est. Patient 12:35:53 ORCHID HAND Jonel Hemphill MD [facility]-93751 Level 4 Est. Patient 22:36:09 ORCHID HAND Jonel Hemphill MD [facility]-61354 Level 2 Est. Patient 15:14:15 ORCHID HAND Mayco Shah APRN [facility] CPT-99166 Level 4 Est. Patient 10:36:22 ORCHID HAND Jonel Hemphill MD [facility]-21436 Level 4 Est. Patient 22:01:13 ORCHID HAND Jonel Hemphill MD [facility]-31549 Level 3 Est. Patient 21:50:37 ORCHID HAND Jonel Hemphill MD [facility]-29729 Level 4 Est. Patient 15:02:43 CDT Rubin Pierre MD [facility] CPT-14762 Level 4 Est. Patient 14:27:35 CDT Jonel Hemphill MD [facility]-95398 Level 4 Est. Patient 12:41:17 CDT Jonel Hemphill MD [facility]-12624 Level 4 Est. Patient 16:18:55 CDT Jonel Hemphill MD [facility]-55205 Level 4 Est. Patient 17:58:05 CDT Jonel Hemphill MD [facility]-28374 Level 4 Est. Patient 22:10:06 CDT Jonel Hemphill MD [facility]-80265 Level 4 Est. Patient 13:22:09 CDT Jonel Hemphill MD [facility] CPT-13477 Level 4 Est. Patient 22:52:17 ORCHID HAND Jonel Hemphill MD [facility] CPT-65931 Level 3 Est. Patient 22:34:10 ORCHID HAND Jonel Hemphill MD [facility] CPT-61185 Level 4 Est. Patient 07:49:20 ORCHID HAND Jonel Hemphill MD [facility] Skilled CPT-11739 Level 3 Est. Patient 08:28:27 ORCHID HAND Jonel Hemphill MD [facility] Procedures Code Procedure Name Date Entry Date Standard Description CPT-95259 Level 3 Mcfp 19:28:48 ORCHID HAND CPT-05320 Level 3 Mcfp 18:02:20 ORCHID HAND CPT-63553 Level 3 Mcfp 15:02:14 ORCHID HAND CPT-16719 Level 3 Mcfp 12:25:37 CDT CPT-01407 Level 3 Mcfp 12:48:39 CDT CPT-00700 Level 3 Mcfp 17:39:14 CDT CPT-96192 Level 3 Mcfp 13:32:58 CDT CPT-53155 Level 3 Mcfp 17:43:43 CDT CPT-13579 Level 3 Mcfp 12:03:33 ORCHID HAND CPT-72746 Level 3 Mcfp 18:47:28 ORCHID HAND CPT-13136 Level 3 Mcfp 17:35:26 ORCHID HAND CPT-05073 Level 3 Mcfp 18:44:49 ORCHID HAND CPT-65471 Level 3 Mcfp 18:17:33 CDT CPT-18173 Level 3 Mcfp 09:25:33 CDT CPT-02427 Level 3 Mcfp 19:11:57 CDT CPT-49946 Level 3 Mcfp 09:25:52 CDT CPT-14010 Level 3 Mcfp 14:23:59 CDT CPT-61739 Level 3 Mcfp 12:09:43 CDT CPT-23617 Level 3 Mcfp 09:37:40 CDT CPT-76442 Level 3 Mcfp 18:23:02 CDT CPT-18973 Level 3 Mcfp 14:09:06 CDT CPT-18154 Level 3 Mcfp 12:43:27 ORCHID HAND CPT-05551 Postop F/U Visit 14:10:15 ORCHID HAND CPT-24823 [facility] 17:07:14 ORCHID HAND CPT-61716 Level 3 Mcfp 16:14:37 ORCHID HAND CPT-70029 Port a cath flush 11:47:42 CDT CPT-40776 Port a cath flush 08:29:49 CDT CPT-OV Office Visit 14:27:58 ORCHID HAND
--- OUTSIDE RECORDS SUMMARY | 2016-08-07 11:20 | XMS REPORT | Clinical Summary ---
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 Jonel Hemphill MD Long-term [...] Coronary atherosclerosis of unspecified type of vessel, samish or graft FH DIABETES V18.0 Resolved Jonel [...] Coronary atherosclerosis of unspecified type of vessel, samish or graft CONSTIPATION 564.00 Resolved Jonel Hemphill [...] Obstructive sleep apnea (adult) (pediatric) 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, 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 ICD-V58.69 Inactive Jonel Hemphill MD DIABETES, [...] skin and change every 72 hours FENTANYL 14980413696 Active Tova Chris Active MIRALAX POWD 17 gms in 4 oz water or juice daily POLYETHYLENE GLYCOL 3350 65933964272 Active Jonel Hemphill MD Active CVS MELATONIN 3 MG ORAL TABS 2 tabs at hs MELATONIN 01695298073 Active Jonel Hemphill MD Active MAGNESIUM GLUCONATE 500 MG ORAL TABS 1 tab twice daily MAGNESIUM GLUCONATE 37792567622 Active Jonel Hemphill MD Active OMEPRAZOLE 20 MG CPDR 1 tablet by mouth daily OMEPRAZOLE 75827768599 Active Jonel Hemphill MD Active DIGOXIN 125 MCG ORAL TABS 1 daily DIGOXIN 55004198078 Active Jonel Hemphill MD Active DILTIAZEM CD 240 MG ORAL [id number] 1 daily DILTIAZEM HCL COATED BEADS 08041893351 Active Jonel Hemphill MD Active NOVOLOG 100 UNIT/ML SC SOLN 70-140=0U 141-180=2 U 181-220=4U 221-260=6U 261- 300=8U 301-340=10U 796=935=70Z 381-400=14U INSULIN ASPART 86869513905 Active Jonel Hemphill MD Active ACETAMINOPHEN 325 MG ORAL TABS 1 tab by mouth every 4 hours as needed ACETAMINOPHEN 72468284326 Active Jonel Hemphill MD Active FENTANYL 12 MCG/HR PT72 Apply to clean, dry skin and change every 72 hours FENTANYL 90837411070 No Longer Active Jonel Hemphill MD Active PHENYTOIN 50 MG CHEW 1 TAB PO BID PHENYTOIN 18183085789 No Longer Active Jonel Hemphill MD Active NORCO 5-325 MG TABS 1-2 TAB Q 6 HRS PRN HYDROCODONE- ACETAMINOPHEN 10721626674 No Longer Active Jonel Hemphill MD Active MULTIVITAMINS CAPS 1 DAILY MULTIPLE VITAMIN 96520970315 No Longer Active Jonel Hemphill MD Active BUPROPION HCL ER (SR) 150 MG [id number] 1 twice a day for depression BUPROPION HCL 30258546399 No Longer Active Jonel Hemphill MD Active LISINOPRIL 20 MG TABS 1 tablet by mouth daily LISINOPRIL 26861723867 Active Jonel Hemphill MD Active ULORIC 40 MG ORAL TABS 1 daily for gout. FEBUXOSTAT 05988029578 No Longer Active Jonel Hemphill MD Active CELEXA 20 MG TABS 1 tablet by mouth daily CITALOPRAM HYDROBROMIDE 54922653544 Active Marleni Raida Active ZOFRAN 4 MG TABS 1 po q6hr PRN Nausea ONDANSETRON HCL 48261820760 Active Jonel Hemphill MD Active XARELTO 20 MG ORAL TABS 1 daily RIVAROXABAN 03742578084 Active Jonel Hemphill MD Active JANUVIA 100 MG ORAL TABS 2 tabs daily SITAGLIPTIN PHOSPHATE 72402958428 Active Jonel Hemphill MD Active CELEXA 20 MG TABS Take 1 tablet 1x daily CITALOPRAM HYDROBROMIDE 22014722952 No Longer Active Jonel Hemphill MD Active ATIVAN 0.5 MG TABS Take 1 tablet 2x daily PRN LORAZEPAM 93174991373 No Longer Active Jonel Hemphill MD Active FUROSEMIDE 80 MG ORAL TABS 1 daily FUROSEMIDE 84847499792 Active Jonel Hemphill MD Active MECLIZINE HCL 25 MG CHEW TAB 1 four times a day as needed for dizziness 02/21 MECLIZINE HCL 74062442778 No Longer Active Jonel Hemphill MD Active ZYLOPRIM 300 MG TAB 1 BY MOUTH DAILY ALLOPURINOL 94164018106 No Longer Active Jonel Hemphill MD Active METOPROLOL TARTRATE 50 MG ORAL TABS 1 TAB BY MOUTH TWICE DAILY METOPROLOL TARTRATE 45867472261 No Longer Active Jonel Hemphill MD Active GABAPENTIN 400 MG ORAL CAPS 1 TAB BY MOUTH THREE TIMES DAILY 2015 GABAPENTIN 87942594267 No Longer Active Jonel Hemphill MD Active HYDROCODONE-ACETAMINOPHEN 7.5-325 MG TABS 1 TAB PO Q 6 HRS PRN HYDROCODONE-ACETAMINOPHEN 48028722335 Active Jonel Hemphill MD Active METFORMIN HCL 1000 MG TABS 1 tablet by mouth twice daily METFORMIN HCL 91045315542 Active Marleni Romero Active KLOR-CON 20 MEQ ORAL PACK 1 BY MOUTH DAILY POTASSIUM CHLORIDE 57747365650 Active Marleni Romero Active A+D FIRST AID EXT OINT APPLY OINTMENT AND RUFINO WRAPS TO LOWER EXTEREMETIES DAILY SKIN PROTECTANTS, MISC. 75553895277 Active Jonel Hemphill MD Active NYSTATIN 820971 UNIT/GM EXT OINT APPLY PRN TID TO GAULDING/RASH IN ABDOMINAL FOLDS NYSTATIN 32422999214 Active Jonel Hemphill MD Active GABAPENTIN 300 MG CAPS 1 CAP PO TID GABAPENTIN 09407921204 No Longer Active Jonel Hemphill MD Active DILANTIN 100 MG ORAL CAPS 1 THREE TIMES DAILY FOR SEIZURES PHENYTOIN SODIUM EXTENDED 14051341991 Active Marleni Romero Active CPAP APPLY AT HS CPAP Active Jonel Hemphill MD Active HYDROCODONE-ACETAMINOPHEN 7.5-325 MG TABS 1 q 6 hrs prn HYDROCODONE-ACETAMINOPHEN 70948586877 No Longer Active Jonel Hemphill MD Active DILANTIN 100 MG CAPS 3 cap tid PHENYTOIN SODIUM EXTENDED 92277329549 No Longer Active Jonel Hemphill MD Active BUDEPRION SR 150 MG [id number] 1 bid BUPROPION HCL 79300653971 No Longer Active Jonel Hemphill MD Active ALLOPURINOL 300 MG TABS 1 qd ALLOPURINOL 67070280442 No Longer Active Jonel Hemphill MD Active COZAAR 100 MG TABS 1 qd LOSARTAN POTASSIUM 84725277327 No Longer Active Jonel Hemphill MD Active CVS VITAMIN C 500 MG TABS 1 po daily ASCORBIC ACID 34115341869 No Longer Active Jonel Hemphill MD Active MIRALAX POWD 17 gms in 4 oz water or juice daily POLYETHYLENE GLYCOL 3350 50025445099 No Longer Active Jonel Hemphill MD Active POTASSIUM CHLORIDE CHELA ER 20 MEQ CR-TABS 1 tab PO daily POTASSIUM CHLORIDE CHELA CR 91474394048 No Longer Active Jonel Hemphill MD Active AMBIEN 10 MG TAB 1 tab by mouth at bedtime as needed for sleep ZOLPIDEM TARTRATE 89665596995 No Longer Active Jonel Hemphill MD Active SULFAMETHOXAZOLE-TMP DS 800-160 MG TABS 1 TAB PO BID SULFAMETHOXAZOLE-TRIMETHOPRIM 08150571556 No Longer Active Jonel Hemphill MD Active LEVEMIR 100 UNIT/ML SOLN 5 units sub-q at bedtime INSULIN DETEMIR 06549891290 No Longer Active Tova Perez Active MOBIC 15 MG TABS 1 tab PO daily for arthritis pain MELOXICAM 90110493445 No Longer Active Tova Perez Active GLUCAGEN 1 MG SOLR INJECT 1MG IM IF BS LESS THAN 60 & RES. IS UNABLE TO SWALLOW GLUCAGON HCL (RDNA) 99707001566 No Longer Active Tova Perez Active CVS MILK OF MAGNESIA 1200 MG/15ML SUSP 30 ml daily for constipation MAGNESIUM HYDROXIDE 17583628110 No Longer Active Tova Perez Active IMDUR 120 MG WD72M-TCH 1 qd ISOSORBIDE MONONITRATE 09779092668 No Longer Active Tova Perez Active NEURONTIN 400 MG CAPS Take one by mouth 3 times daily, morning, afternoon and evening.] GABAPENTIN 60606159827 No Longer Active Tova Perez Active ANTIVERT 25 MG TABS 1 q 6 hrs prn MECLIZINE HCL 62087021773 No Longer Active Jonel Hemphill MD Active CLONIDINE HCL 0.2 MG TABS 1 q 8 hrs as needed -greater than 160-htn CLONIDINE HCL 86211811653 No Longer Active Jonel Hemphill MD Active AMBIEN 10 MG TABS 1 q hs prn ZOLPIDEM TARTRATE 97222808753 No Longer Active Jonel Hemphill MD Active GNP THERAPEUTIC-M TABS 1 qd MULTIPLE VITAMINS- MINERALS 98038246730 No Longer Active Jonel Hemphill MD Active METOPROLOL TARTRATE 50 MG TABS 1 bid METOPROLOL TARTRATE 76218413692 No Longer Active Jonel Hemphill MD Active METFORMIN HCL 500 MG TABS 1 bod with food METFORMIN HCL 00876507740 No Longer Active Jonel Hemphill MD Active LISINOPRIL 40 MG TABS 1 qd LISINOPRIL 31978380613 No Longer Active Jonel Hemphill MD Active HYDROCHLOROTHIAZIDE 25 MG TABS 1 qd HYDROCHLOROTHIAZIDE 13018917994 No Longer Active Jonel Hemphill MD Active DURAGESIC-25 25 MCG/HR PT72 place 1 patch on the skin q72hrs for pain FENTANYL 96899592160 No Longer Active Jonel Hemphill MD Active FENTANYL 75 MCG/HR PT72 place 1 patch on skin q72hrs fr pain 2012 FENTANYL 34713165736 No Longer Active Jonel Hemphill MD Active FUROSEMIDE 40 MG TABS 1 q am FUROSEMIDE 66953937034 No Longer Active Jonel Hemphill MD Active HEPARIN (PORCINE) LOCK FLUSH 100 UNIT/ML SOLN Flush port a cath monthly every three week on with Heparin and NS HEPARIN LOCK FLUSH 54374221686 Active Jonel Hemphill MD Active FENTANYL 100 MCG/HR PT72 Apply every 3 days FENTANYL 40620837357 Active Jonel Hemphill MD Active FENTANYL 25 MCG/HR PT72 Apply to clean skin and change every 72 hours. 07/03 FENTANYL 43218597591 No Longer Active Jonel Hemphill MD Active FENTANYL 50 MCG/HR PT72 place 1 patch on skin q72 hours FENTANYL 17006469762 No Longer Active Mayco Shah APRN Active DURAGESIC-12 12 MCG/HR PT72 APPLY PATCH TO SKIN AND CHANGE EVERY 72 HOURS, ROTATE SITES FENTANYL 02780134547 No Longer Active Fozia YANGA Active FUROSEMIDE 20 MG TABS 1 qd FUROSEMIDE 82598057272 No Longer Active Mahogany Ripley Active ADULT ASPIRIN EC LOW STRENGTH 81 MG TBEC 1 qd ASPIRIN 33718916833 Active MARY Perez Active FUROSEMIDE 20 MG TABS 1 qd FUROSEMIDE 20 MG TABS 275463 FUROSEMIDE Inactive DURAGESIC-12 12 MCG/HR PT72 APPLY PATCH TO SKIN AND CHANGE EVERY 72 HOURS, ROTATE SITES DURAGESIC-12 12 MCG/HR PT72 023072 FENTANYL Inactive FENTANYL 50 MCG/HR PT72 place 1 patch on skin q72 hours FENTANYL 50 MCG/HR PT72 961897 FENTANYL Inactive FUROSEMIDE 40 MG TABS 1 q am FUROSEMIDE 40 MG TABS 062475 FUROSEMIDE Inactive FENTANYL 75 MCG/HR PT72 place 1 patch on skin q72hrs fr pain 2012 FENTANYL 75 MCG/HR PT72 233065 FENTANYL Inactive DURAGESIC-25 25 MCG/HR PT72 place 1 patch on the skin q72hrs for pain DURAGESIC-25 25 MCG/HR PT72 943504 FENTANYL Inactive HYDROCHLOROTHIAZIDE 25 MG TABS 1 qd HYDROCHLOROTHIAZIDE 25 MG TABS 412227 HYDROCHLOROTHIAZIDE Inactive LISINOPRIL 40 MG TABS 1 qd LISINOPRIL 40 MG TABS 716768 LISINOPRIL Inactive METFORMIN HCL 500 MG TABS 1 bod with food METFORMIN HCL 500 MG TABS 473580 METFORMIN HCL Inactive METOPROLOL TARTRATE 50 MG TABS 1 bid METOPROLOL TARTRATE 50 MG TABS 767920 METOPROLOL TARTRATE Inactive GNP THERAPEUTIC-M TABS 1 qd GNP THERAPEUTIC-M TABS MULTIPLE VITAMINS-MINERALS Inactive AMBIEN 10 MG TABS 1 q hs prn AMBIEN 10 MG TABS 048460 ZOLPIDEM TARTRATE Inactive CLONIDINE HCL 0.2 MG TABS 1 q 8 hrs as needed -greater than 160-htn CLONIDINE HCL 0.2 MG TABS 299508 CLONIDINE HCL Inactive ANTIVERT 25 MG TABS 1 q 6 hrs prn ANTIVERT 25 MG TABS MECLIZINE HCL Inactive NEURONTIN 400 MG CAPS Take one by mouth 3 times daily, morning, afternoon and evening.] NEURONTIN 400 MG CAPS 577948 GABAPENTIN Inactive IMDUR 120 MG AR73I-FXP 1 qd IMDUR 120 MG PL47T-YMI ISOSORBIDE MONONITRATE Inactive CVS MILK OF MAGNESIA [...] for arthritis pain MOBIC 15 MG TABS 959931 MELOXICAM Inactive LEVEMIR 100 UNIT/ML SOLN 5 units sub-q at bedtime LEVEMIR 100 UNIT/ML SOLN INSULIN DETEMIR Inactive SULFAMETHOXAZOLE-TMP DS 800-160 MG TABS 1 TAB PO BID SULFAMETHOXAZOLE-TMP DS 800-160 MG TABS 831445 SULFAMETHOXAZOLE-TRIMETHOPRIM Inactive AMBIEN 10 MG TAB 1 tab by mouth at bedtime as needed for sleep AMBIEN 10 MG TAB 716739 ZOLPIDEM TARTRATE Inactive POTASSIUM CHLORIDE CHELA ER 20 MEQ CR-TABS 1 tab PO daily POTASSIUM CHLORIDE CHELA ER 20 MEQ CR-TABS POTASSIUM CHLORIDE CHELA CR Inactive MIRALAX POWD 17 gms in 4 oz water or juice daily MIRALAX POWD 919822 POLYETHYLENE GLYCOL 3350 Inactive CVS VITAMIN C 500 MG TABS 1 po daily CVS VITAMIN C 500 MG TABS 109108 ASCORBIC ACID Inactive COZAAR 100 MG TABS 1 qd COZAAR 100 MG TABS 702581 LOSARTAN POTASSIUM Inactive ALLOPURINOL 300 MG TABS 1 qd ALLOPURINOL 300 MG TABS 848658 ALLOPURINOL Inactive BUDEPRION SR 150 MG [id number] 1 bid BUDEPRION SR 150 MG IS26Y-EYM BUPROPION HCL Inactive DILANTIN 100 MG CAPS 3 cap tid DILANTIN 100 MG CAPS 940049 PHENYTOIN SODIUM EXTENDED Inactive HYDROCODONE-ACETAMINOPHEN 7.5-325 MG TABS 1 q 6 hrs prn HYDROCODONE-ACETAMINOPHEN 7.5-325 MG TABS 622269 HYDROCODONE- ACETAMINOPHEN Inactive GABAPENTIN 300 MG CAPS 1 CAP PO TID GABAPENTIN 300 MG CAPS 712936 GABAPENTIN Inactive GABAPENTIN 400 MG ORAL CAPS 1 TAB BY MOUTH THREE TIMES DAILY 2015 GABAPENTIN 400 MG ORAL CAPS 794308 GABAPENTIN Inactive METOPROLOL TARTRATE 50 MG ORAL TABS 1 TAB BY MOUTH TWICE DAILY METOPROLOL TARTRATE 50 MG ORAL TABS 268576 METOPROLOL TARTRATE Inactive ZYLOPRIM 300 MG TAB 1 BY MOUTH DAILY ZYLOPRIM 300 MG TAB 316754 ALLOPURINOL Inactive MECLIZINE HCL 25 MG CHEW TAB 1 four times a day as needed for dizziness 02/21 MECLIZINE HCL 25 MG CHEW TAB 847529 MECLIZINE HCL Inactive ATIVAN 0.5 MG TABS Take 1 tablet 2x daily PRN ATIVAN 0.5 MG TABS 103608 LORAZEPAM Inactive CELEXA 20 MG TABS Take 1 tablet 1x daily CELEXA 20 MG TABS 238745 CITALOPRAM HYDROBROMIDE Inactive ULORIC 40 MG ORAL TABS 1 daily for gout. ULORIC 40 MG ORAL TABS FEBUXOSTAT Inactive BUPROPION HCL ER (SR) 150 MG [id number] 1 twice a day for depression BUPROPION HCL ER (SR) 150 MG NL98H-IMU BUPROPION HCL Inactive MULTIVITAMINS CAPS 1 DAILY MULTIVITAMINS CAPS MULTIPLE VITAMIN Inactive NORCO 5-325 MG TABS 1-2 TAB Q 6 HRS PRN NORCO 5-325 MG TABS 460179 HYDROCODONE-ACETAMINOPHEN Inactive PHENYTOIN 50 MG CHEW 1 TAB PO BID PHENYTOIN 50 MG CHEW 1306183 PHENYTOIN Inactive FENTANYL 12 MCG/HR PT72 Apply to clean, dry skin and change every 72 hours FENTANYL 12 MCG/HR PT72 683077 FENTANYL Inactive FENTANYL 25 MCG/HR PT72 Apply to clean skin and change every 72 hours. 07/03 FENTANYL 25 MCG/HR PT72 662569 FENTANYL Inactive Advance Directives Directive Description Start [...] mg/dL Encounters Code Encounter Date Provider Facility CPT-69488 Level 4 Est. Patient 10:04:48 SITE HEAD Jonel Hemphill MD [facility] CPT-38138 Level 3 Est. Patient 19:05:03 CDT Jonel Hemphill MD [facility] CPT-39775 Level 3 Est. Patient 17:30:47 CDT Kevin Link MD [facility] CPT-71557 Level 3 Est. Patient 18:04:07 CDT Jonel Hemphill MD [facility]-56764 Level 3 Est. Patient 17:18:03 CDT Jonel Hemphill MD [facility]-40428 Level 3 Est. Patient 21:58:03 SITE HEAD Jonel Hemphill MD [facility] CPT-63838 Level 4 Est. Patient 18:03:14 CDT Jonel Hemphill MD [facility]-82194 Level 4 Est. Patient 13:24:53 CDT Jonel Hemphill MD [facility]-86015 Level 4 Est. Patient 09:15:44 CDT Jonel Hemphill MD [facility]-17706 Level 4 Est. Patient 19:16:01 CDT Jonel Hemphill MD [facility]-01216 Level 4 Est. Patient 11:25:16 CDT Jonel Hemphill MD [facility]-21633 Level 4 Est. Patient 09:00:40 CDT Jonel Hemphill MD [facility]-00250 Level 4 Est. Patient 14:53:58 CDT Jonel Hemphill MD [facility]-89410 Level 4 Est. Patient 22:59:01 CDT Jonel Hemphill MD [facility]-33487 Level 4 Est. Patient 09:29:57 CDT Jonel Hemphill MD [facility]-83491 Level 4 Est. Patient 12:35:53 SITE HEAD Jonel Hemphill MD [facility]-17727 Level 4 Est. Patient 22:36:09 SITE HEAD Jonel Hemphill MD [facility]-00962 Level 2 Est. Patient 15:14:15 SITE HEAD Mayco Shah APRN [facility] CPT-97466 Level 4 Est. Patient 10:36:22 SITE HEAD Jonel Hemphill MD [facility] CPT-65018 Level 4 Est. Patient 22:01:13 SITE HEAD Jonel Hemphill MD [facility]-75658 Level 3 Est. Patient 21:50:37 SITE HEAD Jonel Hemphill MD [facility] CPT-19970 Level 4 Est. Patient 15:02:43 CDT Rubin Pierre MD [facility] CPT-62420 Level 4 Est. Patient 14:27:35 CDT Jonel Hemphill MD [facility]-47610 Level 4 Est. Patient 12:41:17 CDT Jonel Hemphill MD [facility]-30271 Level 4 Est. Patient 16:18:55 CDT Jonel Hemphill MD [facility]-40227 Level 4 Est. Patient 17:58:05 CDT Jonel Hemphill MD [facility]-00690 Level 4 Est. Patient 22:10:06 CDT Jonel Hemphill MD [facility]-12085 Level 4 Est. Patient 13:22:09 CDT Jonel Hemphill MD [facility]-89773 Level 4 Est. Patient 22:52:17 SITE HEAD Jonel Hemphill MD [facility]-69045 Level 3 Est. Patient 22:34:10 SITE HEAD Jonel Hemphill MD [facility]-52453 Level 4 Est. Patient 07:49:20 SITE HEAD Jonel Hemphill MD [facility] CPT-80133 Level 3 Est. Patient 08:28:27 SITE HEAD Jonel Hemphill MD [facility] Procedures Code Procedure Name Date Entry Date Standard Description CPT-95242 Level 3 [facility] 21:14:15 SITE HEAD CPT-33959 Level 3 [facility] 15:38:24 CDT CPT-75186 Level 3 [facility] 08:18:30 CDT CPT-58077 Level 3 [facility] 19:03:14 CDT CPT-76429 Level 3 [facility] 17:42:11 CDT CPT-86948 Level 3 [facility] 16:04:10 CDT CPT-84407 Level 3 [facility] 19:38:15 SITE HEAD CPT-93139 Level 3 [facility] 19:28:48 SITE HEAD CPT-32888 Level 3 [facility] 18:02:20 SITE HEAD CPT-18229 Level 3 [facility] 15:02:14 SITE HEAD CPT-98605 Level 3 [facility] 12:25:37 CDT CPT-13960 Level 3 [facility] 12:48:39 CDT CPT-40065 Level 3 [facility] 17:39:14 CDT CPT-32557 Level 3 [facility] 13:32:58 CDT CPT-12731 Level 3 [facility] 17:43:43 CDT CPT-85968 Level 3 [facility] 12:03:33 SITE HEAD CPT-23610 Level 3 [facility] 18:47:28 SITE HEAD CPT-65537 Level 3 [facility] 17:35:26 SITE HEAD CPT-21734 Level 3 [facility] 18:44:49 SITE HEAD CPT-13754 Level 3 [facility] 18:17:33 CDT CPT-97318 Level 3 [facility] 09:25:33 CDT CPT-75294 Level 3 [facility] 19:11:57 CDT CPT-45433 Level 3 [facility] 09:25:52 CDT CPT-03843 Level 3 [facility] 14:23:59 CDT CPT-99363 Level 3 [facility] 12:09:43 CDT CPT-70582 Level 3 [facility] 09:37:40 CDT CPT-44559 Level 3 [facility] 18:23:02 CDT CPT-80804 Level 3 [facility] 14:09:06 CDT CPT-96321 Level 3 [facility] 12:43:27 SITE HEAD CPT-77099 Postop F/U Visit 14:10:15 SITE HEAD CPT-99795 [facility] 17:07:14 SITE HEAD CPT-19964 Level 3 [facility] 16:14:37 SITE HEAD CPT-75484 Port a cath flush 11:47:42 CDT CPT-99699 Port a cath flush 08:29:49 CDT CPT-OV Office Visit 14:27:58 SITE HEAD
--- OUTSIDE RECORDS SUMMARY | 2016-08-07 11:22 | XMS REPORT | Clinical Summary ---
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 COORDINATOR V58.69 Resolved Jonel Hemphill MD Long-term (current) [...] Coronary atherosclerosis of unspecified type of vessel, stebbins or graft FH DIABETES V18.0 Resolved Jonel [...] Coronary atherosclerosis of unspecified type of vessel, stebbins or graft CONSTIPATION 564.00 Resolved Jonel Hemphill [...] Active Jonel Hemphill MD Spasm of muscle DIABETES, TYPE 2 ICD-250.00 Inactive Jonel Hemphill [...] RECTAL BLEEDING ICD-569.3 Inactive Jonel Hemphill MD 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 USE, LONG-TERM ICD-V58.69 Inactive Jonel Hemphill MD LUMBAGO ICD-724.2 Inactive [...] skin and change every 72 hours FENTANYL 20894445062 Active Jonel Hemphill MD Active MIRALAX POWD 17 gms in 4 oz water or juice daily POLYETHYLENE GLYCOL 3350 83987693337 Active Jonel Hemphill MD Active CVS MELATONIN 3 MG ORAL TABS 2 tabs at hs MELATONIN 28595097402 Active Jonel Hemphill MD Active MAGNESIUM GLUCONATE 500 MG ORAL TABS 1 tab twice daily MAGNESIUM GLUCONATE 75925531943 Active Jonel Hemphill MD Active OMEPRAZOLE 20 MG CPDR 1 tablet by mouth daily OMEPRAZOLE 32051286953 Active Jonel Hemphill MD Active DIGOXIN 125 MCG ORAL TABS 1 daily DIGOXIN 41183815231 Active Jonel Hemphill MD Active DILTIAZEM CD 240 MG ORAL [id number] 1 daily DILTIAZEM HCL COATED BEADS 74444627230 Active Jonel Hemphill MD Active NOVOLOG 100 UNIT/ML SC SOLN 70-140=0U 141-180=2 U 181-220=4U 221-260=6U 261- 300=8U 301-340=10U 678=463=36M 381-400=14U INSULIN ASPART 14834172188 Active Jonel Hemphill MD Active ACETAMINOPHEN 325 MG ORAL TABS 1 tab by mouth every 4 hours as needed ACETAMINOPHEN 27124216795 Active Jonel Hemphill MD Active FENTANYL 12 MCG/HR PT72 Apply to clean, dry skin and change every 72 hours FENTANYL 30317283145 No Longer Active Jonel Hemphill MD Active PHENYTOIN 50 MG CHEW 1 TAB PO BID PHENYTOIN 40102796589 No Longer Active Jonel Hemphill MD Active NORCO 5-325 MG TABS 1-2 TAB Q 6 HRS PRN HYDROCODONE- ACETAMINOPHEN 31458853276 No Longer Active Jonel Hemphill MD Active MULTIVITAMINS CAPS 1 DAILY MULTIPLE VITAMIN 09207082637 No Longer Active Jonel Hemphill MD Active BUPROPION HCL ER (SR) 150 MG [id number] 1 twice a day for depression BUPROPION HCL 05973018867 No Longer Active Jonel Hemphill MD Active LISINOPRIL 20 MG TABS 1 tablet by mouth daily LISINOPRIL 45167899923 Active Jonel Hemphill MD Active ULORIC 40 MG ORAL TABS 1 daily for gout. FEBUXOSTAT 55193324602 No Longer Active Jonel Hemphill MD Active CELEXA 20 MG TABS 1 tablet by mouth daily CITALOPRAM HYDROBROMIDE 80042838861 Active Marleni Raida Active ZOFRAN 4 MG TABS 1 po q6hr PRN Nausea ONDANSETRON HCL 11247389683 Active Jonel Hemphill MD Active XARELTO 20 MG ORAL TABS 1 daily RIVAROXABAN 20892171575 Active Jonel Hemphill MD Active JANUVIA 100 MG ORAL TABS 2 tabs daily SITAGLIPTIN PHOSPHATE 30963125471 Active Jonel Hemphill MD Active CELEXA 20 MG TABS Take 1 tablet 1x daily CITALOPRAM HYDROBROMIDE 46092597194 No Longer Active Jonel Hemphill MD Active ATIVAN 0.5 MG TABS Take 1 tablet 2x daily PRN LORAZEPAM 84709751460 No Longer Active Jonel Hemphill MD Active FUROSEMIDE 80 MG ORAL TABS 1 daily FUROSEMIDE 47226161441 Active Jonel Hemphill MD Active MECLIZINE HCL 25 MG CHEW TAB 1 four times a day as needed for dizziness 02/21 MECLIZINE HCL 49576752690 No Longer Active Jonel Hemphill MD Active ZYLOPRIM 300 MG TAB 1 BY MOUTH DAILY ALLOPURINOL 13781549711 No Longer Active Jonel Hemphill MD Active METOPROLOL TARTRATE 50 MG ORAL TABS 1 TAB BY MOUTH TWICE DAILY METOPROLOL TARTRATE 18461511185 No Longer Active Jonel Hemphill MD Active GABAPENTIN 400 MG ORAL CAPS 1 TAB BY MOUTH THREE TIMES DAILY 2015 GABAPENTIN 71226771320 No Longer Active Jonel Hemphill MD Active HYDROCODONE-ACETAMINOPHEN 7.5-325 MG TABS 1 TAB PO Q 6 HRS PRN HYDROCODONE-ACETAMINOPHEN 15842644981 Active Jonel Hemphill MD Active METFORMIN HCL 1000 MG TABS 1 tablet by mouth twice daily METFORMIN HCL 00055639914 Active Marleni Romero Active KLOR-CON 20 MEQ ORAL PACK 1 BY MOUTH DAILY POTASSIUM CHLORIDE 68129694197 Active Marleni Romero Active A+D FIRST AID EXT OINT APPLY OINTMENT AND RUFINO WRAPS TO LOWER EXTEREMETIES DAILY SKIN PROTECTANTS, MISC. 06668482498 Active Jonel Hemphill MD Active NYSTATIN 689652 UNIT/GM EXT OINT APPLY PRN TID TO GAULDING/RASH IN ABDOMINAL FOLDS NYSTATIN 51422355363 Active Jonel Hemphill MD Active GABAPENTIN 300 MG CAPS 1 CAP PO TID GABAPENTIN 25973953889 No Longer Active Jonel Hemphill MD Active DILANTIN 100 MG ORAL CAPS 1 THREE TIMES DAILY FOR SEIZURES PHENYTOIN SODIUM EXTENDED 56346439818 Active Marleni Romero Active CPAP APPLY AT HS CPAP Active Jonel Hemphill MD Active HYDROCODONE-ACETAMINOPHEN 7.5-325 MG TABS 1 q 6 hrs prn HYDROCODONE-ACETAMINOPHEN 48677514905 No Longer Active Jonel Hemphill MD Active DILANTIN 100 MG CAPS 3 cap tid PHENYTOIN SODIUM EXTENDED 34506330897 No Longer Active Jonel Hemphill MD Active BUDEPRION SR 150 MG [id number] 1 bid BUPROPION HCL 14972107177 No Longer Active Jonel Hemphill MD Active ALLOPURINOL 300 MG TABS 1 qd ALLOPURINOL 21465756412 No Longer Active Jonel Hemphill MD Active COZAAR 100 MG TABS 1 qd LOSARTAN POTASSIUM 14355437068 No Longer Active Jonel Hemphill MD Active CVS VITAMIN C 500 MG TABS 1 po daily ASCORBIC ACID 04753033300 No Longer Active Jonel Hemphill MD Active MIRALAX POWD 17 gms in 4 oz water or juice daily POLYETHYLENE GLYCOL 3350 80107145360 No Longer Active Jonel Hemphill MD Active POTASSIUM CHLORIDE CHELA ER 20 MEQ CR-TABS 1 tab PO daily POTASSIUM CHLORIDE CHELA CR 42138358711 No Longer Active Jonel Hemphill MD Active AMBIEN 10 MG TAB 1 tab by mouth at bedtime as needed for sleep ZOLPIDEM TARTRATE 35510261585 No Longer Active Jonel Hemphill MD Active SULFAMETHOXAZOLE-TMP DS 800-160 MG TABS 1 TAB PO BID SULFAMETHOXAZOLE-TRIMETHOPRIM 61436779656 No Longer Active Jonel Hemphill MD Active LEVEMIR 100 UNIT/ML SOLN 5 units sub-q at bedtime INSULIN DETEMIR 58477593435 No Longer Active Tova Perez Active MOBIC 15 MG TABS 1 tab PO daily for arthritis pain MELOXICAM 30003836278 No Longer Active Tova Perez Active GLUCAGEN 1 MG SOLR INJECT 1MG IM IF BS LESS THAN 60 & RES. IS UNABLE TO SWALLOW GLUCAGON HCL (RDNA) 58679214663 No Longer Active Tova Perez Active CVS MILK OF MAGNESIA 1200 MG/15ML SUSP 30 ml daily for constipation MAGNESIUM HYDROXIDE 80098877838 No Longer Active Tova Perez Active IMDUR 120 MG [id number] 1 qd ISOSORBIDE MONONITRATE 07630455159 No Longer Active Tova Perez Active NEURONTIN 400 MG CAPS Take one by mouth 3 times daily, morning, afternoon and evening.] GABAPENTIN 18740955602 No Longer Active Tova Perez Active ANTIVERT 25 MG TABS 1 q 6 hrs prn MECLIZINE HCL 13461356943 No Longer Active Jonel Hemphill MD Active CLONIDINE HCL 0.2 MG TABS 1 q 8 hrs as needed -greater than 160-htn CLONIDINE HCL 20466727580 No Longer Active Jonel Hemphill MD Active AMBIEN 10 MG TABS 1 q hs prn ZOLPIDEM TARTRATE 39925779024 No Longer Active Jonel Hemphill MD Active GNP THERAPEUTIC-M TABS 1 qd MULTIPLE VITAMINS- MINERALS 02727209132 No Longer Active Jonel Hemphill MD Active METOPROLOL TARTRATE 50 MG TABS 1 bid METOPROLOL TARTRATE 53348513297 No Longer Active Jonel Hemphill MD Active METFORMIN HCL 500 MG TABS 1 bod with food METFORMIN HCL 06282891026 No Longer Active Jonel Hemphill MD Active LISINOPRIL 40 MG TABS 1 qd LISINOPRIL 73568222481 No Longer Active Jonel Hemphill MD Active HYDROCHLOROTHIAZIDE 25 MG TABS 1 qd HYDROCHLOROTHIAZIDE 46515988925 No Longer Active Jonel Hemphill MD Active DURAGESIC-25 25 MCG/HR PT72 place 1 patch on the skin q72hrs for pain FENTANYL 41867509007 No Longer Active Jonel Hemphill MD Active FENTANYL 75 MCG/HR PT72 place 1 patch on skin q72hrs fr pain 2012 FENTANYL 60921528911 No Longer Active Jonel Hemphill MD Active FUROSEMIDE 40 MG TABS 1 q am FUROSEMIDE 82744158780 No Longer Active Jonel Hemphill MD Active HEPARIN (PORCINE) LOCK FLUSH 100 UNIT/ML SOLN Flush port a cath monthly every three week on with Heparin and NS HEPARIN LOCK FLUSH 86666741182 Active Jonel Hemphill MD Active FENTANYL 100 MCG/HR PT72 Apply every 3 days FENTANYL 19269574391 Active Jonel Hemphill MD Active FENTANYL 25 MCG/HR PT72 Apply to clean skin and change every 72 hours. 07/03 FENTANYL 75080206862 No Longer Active Jonel Hemphill MD Active FENTANYL 50 MCG/HR PT72 place 1 patch on skin q72 hours FENTANYL 16108531751 No Longer Active Mayco Shah APRN Active DURAGESIC-12 12 MCG/HR PT72 APPLY PATCH TO SKIN AND CHANGE EVERY 72 HOURS, ROTATE SITES FENTANYL 50084037768 No Longer Active Fozia HERNANDEZ Active FUROSEMIDE 20 MG TABS 1 qd FUROSEMIDE 62331463865 No Longer Active [place] Active ADULT ASPIRIN EC LOW STRENGTH 81 MG TBEC 1 qd ASPIRIN 54703275283 Active MARY Perez Active FUROSEMIDE 20 MG TABS 1 qd FUROSEMIDE 20 MG TABS 272018 FUROSEMIDE Inactive DURAGESIC-12 12 MCG/HR PT72 APPLY PATCH TO SKIN AND CHANGE EVERY 72 HOURS, ROTATE SITES DURAGESIC-12 12 MCG/HR PT72 408716 FENTANYL Inactive FENTANYL 50 MCG/HR PT72 place 1 patch on skin q72 hours FENTANYL 50 MCG/HR PT72 832251 FENTANYL Inactive FUROSEMIDE 40 MG TABS 1 q am FUROSEMIDE 40 MG TABS 471352 FUROSEMIDE Inactive FENTANYL 75 MCG/HR PT72 place 1 patch on skin q72hrs fr pain 2012 FENTANYL 75 MCG/HR PT72 055120 FENTANYL Inactive DURAGESIC-25 25 MCG/HR PT72 place 1 patch on the skin q72hrs for pain DURAGESIC-25 25 MCG/HR PT72 562353 FENTANYL Inactive HYDROCHLOROTHIAZIDE 25 MG TABS 1 qd HYDROCHLOROTHIAZIDE 25 MG TABS 504134 HYDROCHLOROTHIAZIDE Inactive LISINOPRIL 40 MG TABS 1 qd LISINOPRIL 40 MG TABS 723814 LISINOPRIL Inactive METFORMIN HCL 500 MG TABS 1 bod with food METFORMIN HCL 500 MG TABS 927469 METFORMIN HCL Inactive METOPROLOL TARTRATE 50 MG TABS 1 bid METOPROLOL TARTRATE 50 MG TABS 802882 METOPROLOL TARTRATE Inactive GNP THERAPEUTIC-M TABS 1 qd GNP THERAPEUTIC-M TABS MULTIPLE VITAMINS-MINERALS Inactive AMBIEN 10 MG TABS 1 q hs prn AMBIEN 10 MG TABS 407334 ZOLPIDEM TARTRATE Inactive CLONIDINE HCL 0.2 MG TABS 1 q 8 hrs as needed -greater than 160-htn CLONIDINE HCL 0.2 MG TABS 670809 CLONIDINE HCL Inactive ANTIVERT 25 MG TABS 1 q 6 hrs prn ANTIVERT 25 MG TABS MECLIZINE HCL Inactive NEURONTIN 400 MG CAPS Take one by mouth 3 times daily, morning, afternoon and evening.] NEURONTIN 400 MG CAPS 687327 GABAPENTIN Inactive IMDUR 120 MG [id number] 1 qd IMDUR 120 MG [id number] ISOSORBIDE MONONITRATE Inactive CVS MILK OF MAGNESIA [...] for arthritis pain MOBIC 15 MG TABS 941359 MELOXICAM Inactive LEVEMIR 100 UNIT/ML SOLN 5 units sub-q at bedtime LEVEMIR 100 UNIT/ML SOLN INSULIN DETEMIR Inactive SULFAMETHOXAZOLE-TMP DS 800-160 MG TABS 1 TAB PO BID SULFAMETHOXAZOLE-TMP DS 800-160 MG TABS 804662 SULFAMETHOXAZOLE-TRIMETHOPRIM Inactive AMBIEN 10 MG TAB 1 tab by mouth at bedtime as needed for sleep AMBIEN 10 MG TAB 349252 ZOLPIDEM TARTRATE Inactive POTASSIUM CHLORIDE CHELA ER 20 MEQ CR-TABS 1 tab PO daily POTASSIUM CHLORIDE CHELA ER 20 MEQ CR-TABS POTASSIUM CHLORIDE CHELA CR Inactive MIRALAX POWD 17 gms in 4 oz water or juice daily MIRALAX POWD 203081 POLYETHYLENE GLYCOL 3350 Inactive CVS VITAMIN C 500 MG TABS 1 po daily CVS VITAMIN C 500 MG TABS 326698 ASCORBIC ACID Inactive COZAAR 100 MG TABS 1 qd COZAAR 100 MG TABS 609213 LOSARTAN POTASSIUM Inactive ALLOPURINOL 300 MG TABS 1 qd ALLOPURINOL 300 MG TABS 698339 ALLOPURINOL Inactive BUDEPRION SR 150 MG [id number] 1 bid BUDEPRION SR 150 MG [id number] BUPROPION HCL Inactive DILANTIN 100 MG CAPS 3 cap tid DILANTIN 100 MG CAPS 485536 PHENYTOIN SODIUM EXTENDED Inactive HYDROCODONE-ACETAMINOPHEN 7.5-325 MG TABS 1 q 6 hrs prn HYDROCODONE-ACETAMINOPHEN 7.5-325 MG TABS 641703 HYDROCODONE- ACETAMINOPHEN Inactive GABAPENTIN 300 MG CAPS 1 CAP PO TID GABAPENTIN 300 MG CAPS 559109 GABAPENTIN Inactive GABAPENTIN 400 MG ORAL CAPS 1 TAB BY MOUTH THREE TIMES DAILY 2015 GABAPENTIN 400 MG ORAL CAPS 269998 GABAPENTIN Inactive METOPROLOL TARTRATE 50 MG ORAL TABS 1 TAB BY MOUTH TWICE DAILY METOPROLOL TARTRATE 50 MG ORAL TABS 685028 METOPROLOL TARTRATE Inactive ZYLOPRIM 300 MG TAB 1 BY MOUTH DAILY ZYLOPRIM 300 MG TAB 241416 ALLOPURINOL Inactive MECLIZINE HCL 25 MG CHEW TAB 1 four times a day as needed for dizziness 02/21 MECLIZINE HCL 25 MG CHEW TAB 029427 MECLIZINE HCL Inactive ATIVAN 0.5 MG TABS Take 1 tablet 2x daily PRN ATIVAN 0.5 MG TABS 476871 LORAZEPAM Inactive CELEXA 20 MG TABS Take 1 tablet 1x daily CELEXA 20 MG TABS 367276 CITALOPRAM HYDROBROMIDE Inactive ULORIC 40 MG ORAL TABS 1 daily for gout. ULORIC 40 MG ORAL TABS FEBUXOSTAT Inactive BUPROPION HCL ER (SR) 150 MG [id number] 1 twice a day for depression BUPROPION HCL ER (SR) 150 MG [id number] BUPROPION HCL Inactive MULTIVITAMINS CAPS 1 DAILY MULTIVITAMINS CAPS MULTIPLE VITAMIN Inactive NORCO 5-325 MG TABS 1-2 TAB Q 6 HRS PRN NORCO 5-325 MG TABS 468982 HYDROCODONE-ACETAMINOPHEN Inactive PHENYTOIN 50 MG CHEW 1 TAB PO BID PHENYTOIN 50 MG CHEW 7295979 PHENYTOIN Inactive FENTANYL 12 MCG/HR PT72 Apply to clean, dry skin and change every 72 hours FENTANYL 12 MCG/HR PT72 425214 FENTANYL Inactive FENTANYL 25 MCG/HR PT72 Apply to clean skin and change every 72 hours. 2013/ 05/22 FENTANYL 25 MCG/HR PT72 249924 FENTANYL Inactive Advance Directives Directive Description Start [...] 23 U/L alkaline phosphatase, serum 40 U/L aspartate aminotransferase (SGOT), serum 14 U/L creatinine, serum 1.26 mg/dL blood glucose 190 mg/dL potassium, serum 4.1 mmol/L sodium, serum 139 mmol/L sodium, serum 139 mmol/L potassium, serum 4.8 mmol/L blood glucose 239 mg/dL creatinine, serum 1.17 mg/dL Office Visit: NEED DABETIC SHOES - Basic LDL target level 100 mg/dL Office Visit: NEED DABETIC SHOES - Chemistry home glucose monitor utilized Yes cholesterol, target level 200 mg/dL triglyceride, target level 200 mg/dL HDL cholesterol, serum, target level 35 mg/dL Encounters Code Encounter Date Provider Facility CPT-23252 Level 4 Est. Patient 18:47:35 [employer] Jonel Hemphill MD [facility] CPT-53646 Level 4 Est. Patient 10:04:48 [employer] INSPECT[employer] Jonel Hemphill MD [facility] CPT-87924 Level 3 Est. Patient 19:05:03 CDT Jonel Hemphill MD [facility] CPT-89933 Level 3 Est. Patient 17:30:47 CDT Kevin Link MD [facility]-58735 Level 3 Est. Patient 18:04:07 CDT Jonel Hemphill MD [facility] CPT-64689 Level 3 Est. Patient 17:18:03 CDT Jonel Hemphill MD [facility] CPT-24511 Level 3 Est. Patient 21:58:03 [employer] INSPECTOR Jonel Hemphill MD [facility] CPT-63240 Level 4 Est. Patient 18:03:14 CDT Jonel Yeager [facility]-33862 Level 4 Est. Patient 13:24:53 CDT Jonel Yeager [facility]-61988 Level 4 Est. Patient 09:15:44 CDT Jonel Yeager [facility]-42984 Level 4 Est. Patient 19:16:01 CDT [facility]ill [facility]-27021 Level 4 Est. Patient 11:25:16 CDT Jonel Hemphill MD [facility] CPT-90958 Level 4 Est. Patient 09:00:40 CDT [facility]-42824 Level 4 Est. Patient 14:53:58 CDT Jonel Hemphill MD [facility]-25072 Level 4 Est. Patient 22:59:01 CDT Jonel Hemphill MD [facility]-48916 Level 4 Est. Patient 09:29:57 CDT Jonel Hemphill MD [facility]-33785 Level 4 Est. Patient 12:35:53 [employer] INSPECTOR Jonel Hemphill MD [facility]-59528 Level 4 Est. Patient 22:36:09 [employer] INS[employer]OR Jonel Hemphill MD [facility]-83684 Level 2 Est. Patient 15:14:15 [employer] INSPECTOR Mayco Shah APRN [facility]-11750 Level 4 Est. Patient 10:36:22 [employer] INSPECTOR Jonel Hemphill MD [facility] CPT-39235 Level 4 Est. Patient 22:01:13 [employer] INSPECTOR Jonel Hemphill MD [facility]-08582 Level 3 Est. Patient 21:50:37 [employer] INSPECTOR Jonel Hemphill MD [facility] CPT-46645 Level 4 Est. Patient 15:02:43 CDT Rubin Pierre MD [facility]-05096 Level 4 Est. Patient 14:27:35 CDT Jonel Hemphill MD [facility]-17937 Level 4 Est. Patient 12:41:17 CDT Jonel Hemphill MD [facility]-84650 Level 4 Est. Patient 16:18:55 CDT Jonel Hemphill MD [facility] CPT-43999 Level 4 Est. Patient 17:58:05 CDT Jonel Hemphill MD [facility] CPT-19750 Level 4 Est. Patient 22:10:06 CDT Jonel Hemphill MD [facility] CPT-23240 Level 4 Est. Patient 13:22:09 CDT Jonel Hemphill MD [facility] CPT-14596 Level 4 Est. Patient 22:52:17 [employer] INS[employer]OR Jonel Hemphill MD [facility] CPT-88479 Level 3 Est. Patient 22:34:10 [employer] INS[employer]OR Jonel Hemphill MD [facility] CPT-05774 Level 4 Est. Patient 07:49:20 [employer] INSPECTOR Jonel Hemphill MD [facility] Skilled CPT-20140 Level 3 Est. Patient 08:28:27 [employer] INSPECTOR Jonel Hemphill MD [facility] Procedures Code Procedure Name Date Entry Date Standard Description CPT-17094 Level 3 Usp 17:57:17 [employer] INSPECT[employer] CPT-26354 Level 3 Usp 21:14:15 [employer] CPT-53680 Level 3 Usp 15:38:24 CDT CPT-05560 Level 3 Usp 08:18:30 CDT CPT-56039 Level 3 Usp 19:03:14 CDT CPT-16179 Level 3 Usp 17:42:11 CDT CPT-60185 Level 3 Usp 16:04:10 CDT CPT-48373 Level 3 Usp 19:38:15 [employer] INS[employer]OR CPT-21610 Level 3 Usp 19:28:48 [employer] INS[employer] CPT-53833 Level 3 Usp 18:02:20 [employer] INS[employer] CPT-49211 Level 3 Usp 15:02:14 [employer] INSPECTOR CPT-59965 Level 3 Usp 12:25:37 CDT CPT-75139 Level 3 Usp 12:48:39 CDT CPT-93636 Level 3 Usp 17:39:14 CDT CPT-27214 Level 3 Usp 13:32:58 CDT CPT-62894 Level 3 Usp 17:43:43 CDT CPT-69131 Level 3 Usp 12:03:33 [employer] INS[employer]OR CPT-34344 Level 3 Usp 18:47:28 [employer] INS[employer] CPT-03302 Level 3 Usp 17:35:26 [employer] INS[employer]OR CPT-20750 Level 3 Usp 18:44:49 [employer] INS[employer]OR CPT-85007 Level 3 Usp 18:17:33 CDT CPT-50955 Level 3 Usp 09:25:33 CDT CPT-08260 Level 3 Usp 19:11:57 CDT CPT-21402 Level 3 Usp 09:25:52 CDT CPT-12490 Level 3 Usp 14:23:59 CDT CPT-53618 Level 3 Usp 12:09:43 CDT CPT-49803 Level 3 Usp 09:37:40 CDT CPT-21821 Level 3 Usp 18:23:02 CDT CPT-79977 Level 3 Usp 14:09:06 CDT CPT-77420 Level 3 Usp 12:43:27 [employer] INS[employer] CPT-85362 Postop F/U Visit 14:10:15 [employer] INSPECT[employer] CPT-99515 [facility] 17:07:14 [employer] INS[employer] CPT-56423 Level 3 Usp 16:14:37 [employer] INS[employer] CPT-95935 Port a cath flush 11:47:42 CDT CPT-06560 Port a cath flush 08:29:49 CDT CPT-OV Office Visit 14:27:58 [employer] INSPECTOR
--- OUTSIDE RECORDS SUMMARY | 2016-08-07 11:23 | XMS REPORT | Clinical Summary ---
Author Author Admin, [place] [facility] Address Unknown Phone Allergies, Adverse Reactions, Alerts Allergy Name Reaction Description Start Date Severity Status Provider PENICILLIN Critical Active [place] Conditions or Problems Problem Name Problem Code Onset Date Status Entry Date Provider Comment Standard Description Annotate DIABETES MELLITUS, TYPE II, CONTROLLED 250.00 Active Jonel Hemphill MD Diabetes mellitus without mention of complication, type II or unspecified type, not stated as uncontrolled MORBID OBESITY 278.01 Active Jonel Hemphill MD Morbid obesity HYPERTENSION 401.1 Active Jonel Hemphill MD Benign essential hypertension 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 USE, GROUP HOME V58.69 Resolved Jonel Hemphill MD Long-term (current) use of other medications C V A / STROKE 436 Active Gregor Tisha Acute, but ill- defined, cerebrovascular disease C O P D 496 Active [place] Tisha Chronic airway obstruction, not elsewhere classified DIABETES, TYPE 2 250.00 Resolved Jonel Hemphill MD Diabetes mellitus without mention of complication, type II or unspecified type, not stated as uncontrolled SEIZURE DISORDER 780.39 Active [place] Other convulsions CORONARY HEART DISEASE 414.00 Resolved Jonel Hemphill MD Coronary atherosclerosis of unspecified type of vessel, [place] or graft FH DIABETES V18.0 Resolved Jonel [...] Unspecified idiopathic peripheral neuropathy LYMPHEDEMA 457.1 Active Jnoel Hemphill MD Other lymphedema DIABETIC ULCER, LEG [...] Coronary atherosclerosis of unspecified type of vessel, [place] or graft CONSTIPATION 564.00 Resolved Jonel Hemphill [...] Hemphill MD Pain in limb 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 IS UNABLE TO SWALLOW GLUCAGON HCL (RDNA) 83412347068 No Longer Active Tova Perez Active [facility] MILK OF MAGNESIA 1200 MG/15ML SUSP 30 ml daily for constipation MAGNESIUM HYDROXIDE 41629016239 No Longer Active Tova Perez Active IMDUR 120 MG CM21T-EIJ 1 qd ISOSORBIDE MONONITRATE 32654763526 No Longer Active Tova Perez Active METFORMIN HCL 500 MG TABS 1 tablet by mouth twice daily METFORMIN HCL 65764477656 Active Tova Chris Active SULFAMETHOXAZOLE-TMP DS 800-160 MG TABS 1 TAB PO BID SULFAMETHOXAZOLE-TRIMETHOPRIM 39179339220 Active Tova Chris Active PHENYTOIN 50 MG CHEW 1 TAB PO BID PHENYTOIN 53630483001 Active Tova Perez Active MECLIZINE HCL 25 MG CHEW TAB 1 four times a day as needed for dizziness 02/21 MECLIZINE HCL 13568150430 Active Tova Chris Active GABAPENTIN 300 MG CAPS 1 CAP PO TID GABAPENTIN 75741065680 Active Tova Chris Active NEURONTIN 400 MG CAPS Take one by mouth 3 times daily, morning, afternoon and evening.] GABAPENTIN 19728241412 No Longer Active Tova Chris Active AMBIEN 10 MG TAB 1 tab by mouth at bedtime as needed for sleep ZOLPIDEM TARTRATE 67913881137 Active Jonel Hemphill MD Active POTASSIUM CHLORIDE CHELA ER 20 MEQ CR-TABS 1 tab PO daily POTASSIUM CHLORIDE CHELA CR 25635391031 Active Jonel Hemphill MD Active ANTIVERT 25 MG TABS 1 q 6 hrs prn MECLIZINE HCL 81711648285 No Longer Active Jonel Hemphill MD Active CLONIDINE HCL 0.2 MG TABS 1 q 8 hrs as needed -greater than 160-htn CLONIDINE HCL 21356327490 No Longer Active Jonel Hemphill MD Active AMBIEN 10 MG TABS 1 q hs prn ZOLPIDEM TARTRATE 98612805805 No Longer Active Jonel Hemphill MD Active GNP THERAPEUTIC-M TABS 1 qd MULTIPLE VITAMINS- MINERALS 24081664742 No Longer Active Jonel Hemphill MD Active METOPROLOL TARTRATE 50 MG TABS 1 bid METOPROLOL TARTRATE 84084306095 No Longer Active Jonel Hemphill MD Active METFORMIN HCL 500 MG TABS 1 bod with food METFORMIN HCL 26764308881 No Longer Active Jonel Hemphill MD Active LISINOPRIL 40 MG TABS 1 qd LISINOPRIL 30466923566 No Longer Active Jonel Hemphill MD Active HYDROCHLOROTHIAZIDE 25 MG TABS 1 qd HYDROCHLOROTHIAZIDE 99055533763 No Longer Active Jonel Hemphill MD Active DURAGESIC-25 25 MCG/HR PT72 place 1 patch on the skin q72hrs for pain FENTANYL 97558680106 No Longer Active Jonel Hemphill MD Active FENTANYL 75 MCG/HR PT72 place 1 patch on skin q72hrs fr pain 2012 FENTANYL 95000719273 No Longer Active Jonel Hemphill MD Active LASIX 20 MG TABS 1 tab PO q morning FUROSEMIDE 63204784976 Active Jonel Hemphill MD Active FUROSEMIDE 40 MG TABS 1 q am FUROSEMIDE 25710505651 No Longer Active Jonel Hemphill MD Active HEPARIN (PORCINE) LOCK FLUSH 100 UNIT/ML SOLN Flush port a cath monthly every three week on with Heparin and NS HEPARIN LOCK FLUSH 98334325405 Active Jonel Hemphill MD Active FENTANYL 100 MCG/HR PT72 Apply every 3 days FENTANYL 23057777859 Active Jonel Hemphill MD Active FENTANYL 25 MCG/HR PT72 Apply to clean skin and change every 72 hours. 07/03 FENTANYL 02473583253 No Longer Active Jonel Hemphill MD Active FENTANYL 50 MCG/HR PT72 place 1 patch on skin q72 hours FENTANYL 92555740170 No Longer Active Mayco Shah APRN Active HYDROCODONE-ACETAMINOPHEN 7.5-325 MG TABS 1 q 6 hrs prn HYDROCODONE-ACETAMINOPHEN 52461469492 Active Jonel Hemphill MD Active ATIVAN 0.5 MG TABS Take 1 tablet 2x daily LORAZEPAM 27509402278 Active Jonel Hemphill MD Active CELEXA 20 MG TABS Take 1 tablet 1x daily CITALOPRAM HYDROBROMIDE 11334739110 Active Jonel Hemphill MD Active MIRALAX POWD 17 gms in 4 oz water or juice daily POLYETHYLENE GLYCOL 3350 56119463601 Active Rubin Pierre MD Active DURAGESIC-12 12 MCG/HR PT72 APPLY PATCH TO SKIN AND CHANGE EVERY 72 HOURS, ROTATE SITES FENTANYL 42796335287 No Longer Active Fozia Amador TREYA Active [facility] VITAMIN C 500 MG TABS 1 po daily ASCORBIC ACID 34978584879 Active Mahogany Sumner Active FUROSEMIDE 20 MG TABS 1 qd FUROSEMIDE 82811067929 No Longer Active Mahogany Sumner Active ADULT ASPIRIN EC LOW STRENGTH 81 MG TBEC 1 qd ASPIRIN 49261049307 Active Gregor Giles Active DILANTIN 100 MG CAPS 3 cap tid PHENYTOIN SODIUM EXTENDED 58695170853 Active Gregor Giles Active BUDEPRION SR 150 MG [id number]-VEB 1 bid BUPROPION HCL 78886340885 Active Gregor Giles Active ALLOPURINOL 300 MG TABS 1 qd ALLOPURINOL 08854829665 Active Gregor Giles Active COZAAR 100 MG TABS 1 qd LOSARTAN POTASSIUM 19478583591 Active Gregor Giles Active FUROSEMIDE 20 MG TABS 1 qd FUROSEMIDE 20 MG TABS 928905 FUROSEMIDE Inactive DURAGESIC-12 12 MCG/HR PT72 APPLY PATCH TO SKIN AND CHANGE EVERY 72 HOURS, ROTATE SITES DURAGESIC-12 12 MCG/HR PT72 676687 FENTANYL Inactive FENTANYL 50 MCG/HR PT72 place 1 patch on skin q72 hours FENTANYL 50 MCG/HR PT72 451266 FENTANYL Inactive FUROSEMIDE 40 MG TABS 1 q am FUROSEMIDE 40 MG TABS 815081 FUROSEMIDE Inactive FENTANYL 75 MCG/HR PT72 place 1 patch on skin q72hrs fr pain 2012 FENTANYL 75 MCG/HR PT72 919829 FENTANYL Inactive DURAGESIC-25 25 MCG/HR PT72 place 1 patch on the skin q72hrs for pain DURAGESIC-25 25 MCG/HR PT72 883823 FENTANYL Inactive HYDROCHLOROTHIAZIDE 25 MG TABS 1 qd HYDROCHLOROTHIAZIDE 25 MG TABS 318176 HYDROCHLOROTHIAZIDE Inactive LISINOPRIL 40 MG TABS 1 qd LISINOPRIL 40 MG TABS 055208 LISINOPRIL Inactive METFORMIN HCL 500 MG TABS 1 bod with food METFORMIN HCL 500 MG TABS 505441 METFORMIN HCL Inactive METOPROLOL TARTRATE 50 MG TABS 1 bid METOPROLOL TARTRATE 50 MG TABS 605904 METOPROLOL TARTRATE Inactive GNP THERAPEUTIC-M TABS 1 qd GNP THERAPEUTIC-M TABS MULTIPLE VITAMINS-MINERALS Inactive AMBIEN 10 MG TABS 1 q hs prn AMBIEN 10 MG TABS 585245 ZOLPIDEM TARTRATE Inactive CLONIDINE HCL 0.2 MG TABS 1 q 8 hrs as needed -greater than 160-htn CLONIDINE HCL 0.2 MG TABS 747304 CLONIDINE HCL Inactive ANTIVERT 25 MG TABS 1 q 6 hrs prn ANTIVERT 25 MG TABS MECLIZINE HCL Inactive NEURONTIN 400 MG CAPS Take one by mouth 3 times daily, morning, afternoon and evening.] NEURONTIN 400 MG CAPS 692241 GABAPENTIN Inactive IMDUR 120 MG AT15T-BAT 1 qd IMDUR 120 MG IA74Y-AAB ISOSORBIDE MONONITRATE Inactive [facility] MILK OF MAGNESIA [...] for arthritis pain MOBIC 15 MG TABS 404846 MELOXICAM Inactive LEVEMIR 100 UNIT/ML SOLN 5 units sub-q at bedtime LEVEMIR 100 UNIT/ML SOLN INSULIN DETEMIR Inactive FENTANYL 25 MCG/HR PT72 Apply to clean skin and change every 72 hours. 07/03 FENTANYL 25 MCG/HR PT72 324885 FENTANYL Inactive Advance Directives Directive Description Start [...] Panel - Chemistry sodium, serum 141 mmol/L 251-512 7460/07/01 potassium, serum 3.4 mmol/L 3.5-5.2 chloride, serum 104 mmol/L 98-107 carbon dioxide, venous blood 27.3 mmol/L 21.0-32.0 blood glucose 101 mg/dL 65-110 calcium, serum 8.9 mg/dL 8.5-10.1 urea nitrogen, blood 15 mg/dL 7-18 creatinine, serum 1.10 mg/dL 0.60-1.30 sodium, serum 141 mmol/L 726-342 5155/05/20 potassium, serum 5.7 mmol/L 3.5-5.2 chloride, serum 108 mmol/L 98-107 carbon dioxide, venous blood 20.4 mmol/L 21.0-32.0 blood glucose 147 mg/dL 65-110 calcium, serum 8.8 mg/dL 8.5-10.1 urea nitrogen, blood 68 mg/dL 7-18 creatinine, serum 2.40 mg/dL 0.60-1.30 sodium, serum 140 mmol/L 208-006 6488/05/31 potassium, serum 5.5 mmol/L 3.5-5.2 chloride, serum 108 mmol/L 98-107 carbon dioxide, venous blood 22.8 mmol/L 21.0-32.0 blood glucose 88 mg/dL 65-110 calcium, serum 9.1 mg/dL 8.5-10.1 urea nitrogen, blood 47 mg/dL 7-18 creatinine, serum 1.70 mg/dL 0.60-1.30 sodium, serum 137 mmol/L 409-363 2478/06/05 potassium, serum 6.5 mmol/L 3.5-5.2 chloride, serum 105 mmol/L 98-107 carbon dioxide, venous blood 22.0 mmol/L 21.0-32.0 blood glucose 132 mg/dL 65-110 calcium, serum 8.7 mg/dL 8.5-10.1 urea nitrogen, blood 71 mg/dL 7-18 creatinine, serum 2.10 mg/dL 0.60-1.30 sodium, serum 137 mmol/L 035-017 8246/06/14 potassium, serum 7.1 mmol/L 3.5-5.2 chloride, serum [...] Panel - Chemistry sodium, serum 138 mmol/L 268-575 2816/05/24 potassium, serum 6.9 mmol/L 3.5-5.2 chloride, serum [...] 0.14 mg/dL 0.00-1.00 sodium, serum 136 mmol/L 839-398 1117/05/17 potassium, serum 6.4 mmol/L 3.5-5.2 chloride, serum [...] ... - Chemistry sodium, serum 142 mmol/L 269-150 9058/07/15 potassium, serum 3.9 mmol/L 3.5-5.2 chloride, serum [...] Acid - Chemistry sodium, serum 141 mmol/L 219-257 1507/05/09 potassium, serum 3.9 mmol/L 3.5-5.2 chloride, serum [...] dipstick Negative Negative sodium, serum 140 mmol/L 632-125 8357/02/18 potassium, serum 3.8 mmol/L 3.5-5.2 chloride, serum [...] Acid - Chemistry sodium, serum 141 mmol/L 814-364 3431/06/11 potassium, serum 5.9 mmol/L 3.5-5.2 chloride, serum [...] 10.0-20.0 Encounters Code Encounter Date Provider Facility CPT-57387 Level 3 Est. Patient 17:18:03 CDT Jonel Hemphill MD [facility] CPT-05981 Level 3 Est. Patient 21:58:03 BOARDING MOTHER Jonel Hemphill MD [facility] CPT-62950 Level 4 Est. Patient 18:03:14 CDT Jonel Yeager [facility]-46183 Level 4 Est. Patient 13:24:53 CDT Jonel Yeager [facility]09443 Level 4 Est. Patient 09:15:44 CDT Jonel [facility] [place] CPT-15472 Level 4 Est. Patient 19:16:01 CDT [facility]27483 Level 4 Est. Patient 11:25:16 CDT Jonel Hemphill MD [facility] CPT-27917 Level 4 Est. Patient 09:00:40 CDT [facility]-97268 Level 4 Est. Patient 14:53:58 CDT Jonel Hemphill MD [facility] CPT-99367 Level 4 Est. Patient 22:59:01 CDT Jonel Hemphill MD [facility]-70350 Level 4 Est. Patient 09:29:57 CDT Jonel Hemphill MD [facility]-00931 Level 4 Est. Patient 12:35:53 BOARDING MOTHER Jonel Hemphill MD [facility]-20333 Level 4 Est. Patient 22:36:09 BOARDING MOTHER Jonel Hemphill MD [facility]-91775 Level 2 Est. Patient 15:14:15 BOARDING MOTHER Mayco Shah APRN [facility] CPT-60788 Level 4 Est. Patient 10:36:22 BOARDING MOTHER Jonel Hemphill MD [facility] CPT-06395 Level 4 Est. Patient 22:01:13 BOARDING MOTHER Jonel Hemphill MD [facility]-90291 Level 3 Est. Patient 21:50:37 BOARDING MOTHER Jonel Hemphill MD [facility] CPT-48926 Level 4 Est. Patient 15:02:43 CDT Rubin Pierre MD [facility] CPT-87386 Level 4 Est. Patient 14:27:35 CDT Jonel Hemphill MD [facility]-83508 Level 4 Est. Patient 12:41:17 CDT Jonel Hemphill MD [facility]84674 Level 4 Est. Patient 16:18:55 CDT Jonel Hemphill MD [facility] CPT-83454 Level 4 Est. Patient 17:58:05 CDT Jonel Hemphill MD [facility] CPT-04632 Level 4 Est. Patient 22:10:06 CDT Jonel Hemphill MD [facility] CPT-07845 Level 4 Est. Patient 13:22:09 CDT Jonel Hemphill MD [facility] CPT-18914 Level 4 Est. Patient 22:52:17 BOARDING MOTHER Jonel Hemphill MD [facility] CPT-36841 Level 3 Est. Patient 22:34:10 BOARDING MOTHER Jonel Hemphill MD [facility] CPT-30815 Level 4 Est. Patient 07:49:20 BOARDING MOTHER Jonel Hemphill MD [facility] Skilled CPT-99935 Level 3 Est. Patient 08:28:27 BOARDING MOTHER Jonel Hmephill MD [facility] Procedures Code Procedure Name Date Entry Date Standard Description CPT-32980 Level 3 [facility] 09:37:40 CDT CPT-93981 Level 3 [facility] 18:23:02 CDT CPT-46424 Level 3 [facility] 14:09:06 CDT CPT-47937 Level 3 [facility] 12:43:27 BOARDING MOTHER CPT-89551 Postop F/U Visit 14:10:15 BOARDING MOTHER CPT-27671 [facility] 17:07:14 BOARDING MOTHER CPT-28385 Level 3 [facility] 16:14:37 BOARDING MOTHER CPT-22142 Port a cath flush 11:47:42 CDT CPT-70380 Port a cath flush 08:29:49 CDT CPT-OV Office Visit 14:27:58 BOARDING MOTHER
--- OUTSIDE RECORDS SUMMARY | 2016-08-07 11:23 | XMS REPORT ---
Author Author [facility] Medical Staff Organization [facility] Address [address] [address] [place], [place] [address] Phone [phone] Care Team Providers Care Superintendent Terminal Name Role Phone FRANKO PRIETO MD PP [phone] Summary purpose CCDA Sent to [facility] Chief Complaint and Reason for Visit Admit Diagnosis 1 Agitation, aggression Problem list No authorized problems tracked for [...]
--- OUTSIDE RECORDS SUMMARY | 2016-08-07 11:24 | XMS REPORT ---
Author Author [facility] Medical Staff Organization [facility] Address [address], [place] [address] Phone [phone] Care Team Providers Care Product Finisher Name Role Phone FRANKO HEMPHILL MD PP [phone] Summary purpose TRANSITION OF CARE AUTO GENERATION [...] Relevant diagnostic tests and/or laboratory data RESULTS Therapeutic Drug Monitoring 73-00-769395:50:00 Result Normal Range Units Digoxin/Lanoxin L 0.6 1.0-2.0 ng/ml *Digoxin-like immunoreactive factors (DLIF) or substances (DLIS) have been identified in blood from patients in renal failure, liver failure, newborns, and women in the third trimester. *Studies have established that the presence of DLIF or DLIS in a sample can result in a false elevation of digoxin when assayed by commercially available immunoassays. *Digoxin bound to Dung fragments of antidigoxin antibodies (ex. Digibind), as found in serum and plasma of individual being treated for digoxin toxicity, may result in misleading digoxin values with this Dimension method. Chemistry :50:00 Result Normal Range Units Sodium 135 134-145 mEq/l Potassium 4.5 3.5-5.1 mEq/l Chloride 99 98-107 mEq/l CO2 H 30.6 22-28 mEq/l Glucose H 133 70-105 mg/dl BUN H 30 7-18 mg/dl Creatinine H 1.71 0.6-1.3 mg/dl Calcium 9.6 8.4-10.2 mg/dl TP - Total Protein 7.3 6.0-8.3 g/dl Albumin 4.0 3.5-5 g/dl Bilirubin - Total 0.4 0.1-1.0 mg/dl AST 18 10-42 IU/L ALT 33 12-65 IU/L ALP L 37 39-107 IU/L Lipase 147 73-393 U/L Osmolality L 278.2 280-300 mOsm/L Albumin/Globulin Ratio 1.2 0-8 Anion GAP L 5.4 8-16 BUN/Creatinine Ratio 17.5 10-20 BNP- Brain Natriuretic Peptide 34 0-900 pg/ml Estimated GFR L 42 >=60 mL/min/1.7 Hematology :50:00 Result Normal Range Units WBC 8.6 4.8-10.8 103/uL RBC L 3.6 4.7-6.1 106/uL HGB L 11.6 13.0-18.0 g/dl HCT L 34.5 41.9-52.0 % MCV H 95.6 80-94 FL MCH H 32.1 27-31 pg MCHC 33.6 33-37 g/dl RDW 14.3 11.5-15.5 % PLT L 119 130-400 103/uL MPV H 11.3 7.3-10.4 FL Neutro % H 85.4 40-70 % Lymph % L 7.2 20-40 % Villalba % 5.5 0-10.0 % Eos % 0.9 0-7.0 % Baso % 0.3 0-2 % Neutro # 7.3 1.5-7.5 103/uL Lymph # L 0.6 0.9-4.0 103/uL Villalba # 0.5 0-0.8 103/uL Eos # 0.1 0-0.6 103/uL Baso # 0.0 0-0.1 103/uL Cardiac :50:00 Result Normal Range Units Troponin I < 0.02 0.0-0.4 ng/ml Patient samples may contain heterophilic antibodies that could react in immunoassays to give falsely elevated or depressed results. This Dimension assay has been designed to minimize interference from heterophilic antibodies. Nevertheless, complete elimination of this interference from all patient specimens cannot be guaranteed. A test result that is inconsistent with the clinical picture and patient history should be interpreted with caution. Radiology Results [id number]:38:00 Chest XRay - Port - 1 View PACs Image DATE OF EXAM: 2015 RAD [id number] 1 VIEW PORT : RADIOLOGY REPORT DATE OF SERVICE: 07/21/15 HISTORY: Chest pain. CHEST ONE VIEW PORTABLE 1150 HOURS The heart and mediastinum show no active pathology. Left entering Tdhfhi-t-Dhcs is in place. The pulmonary [place] are clear from active infiltrate. The costophrenic angles are clear. Compared to the prior study dated 03/21/2015, stable appearance is demonstrated. IMPRESSION:No active cardiopulmonary pathology. Van Murphy DO WP/cdj07/21/2015 11:59: / 07/21/2015 12:14:20 cc:Dr. Franko Hemphill This document has been electronically Signed by: On: DATE OF EXAM: 2015 RAD [id number] 1 VIEW PORT : RADIOLOGY REPORT DATE OF SERVICE: 07/21/15 HISTORY: Chest pain. CHEST ONE VIEW PORTABLE 1150 HOURS The heart and mediastinum show no active pathology. Left entering Nowtal-p-Yjlu is in place. The pulmonary [place] are clear from active infiltrate. The costophrenic angles are clear. Compared to the prior study dated 03/21/2015, stable appearance is demonstrated. IMPRESSION:No active cardiopulmonary pathology. Van Murphy DO WP/cdj07/21/2015 11:59:00 / 07/21/2015 12:14:20 cc:Dr. Franko Hemphill This document has been electronically Signed by: VAN MURPHY DO On: 2015 10:38A Result Amended on 2015-07-22 at 10:38:59. Previous status was OK. [id number]:50:00 Result Normal Range Units MPV H 11.3 7.3-10.4 FL History of procedures No procedures recorded for this patient visit. Functional status Functional Status Finding Observation Time Abdomen Appearance obese 57-16-705661:25 Abdomen soft 10-00-957855:25 Wagner no 05-66-741348:25 Urination normal 35-44-456700:25 Quality sym/unlabored 86-52-370012:25 Cough absent :25 Secretions no 04-27-636543:25 Breath Sounds RUL clear :25 Breath Sounds RML clear :25 Breath Sounds RLL diminished :25 Breath Sounds CECILIA clear : Breath Sounds LLL diminished :25 Airway natural :25 Chest Tube no :25 Oxygen no :30 Temp >100.4 no : Temp <96.8 no :25 Chills with rigors no :25 HR > 90bpm yes : Respirations > 20 no : Systolic <90 no : headache stiff neck no :25 VAD Type tiffany-cath :08 VAD Location L upper chest :25 VAD Site Info discontinued Comment: flushed port with 10cc NS and 5cc heparin flush and deaccessed needle , seth well, covered with sterile 2x2 and bandaid :08 VAD Site Appearance WNL :25 VAD Site Color clear : VAD Site Patent yes : VAD Dressing Type occlusive 05-69-650810:25 Nursing Note copies of all paperwork sent with [facility] staff, verbalized understanding :40 Vital signs Type Value Date Respiration Rate 20breaths per minute :30 Pulse 90beats per minute :30 Oxygen Saturation 98% :30 BP Systolic 108mmHg :30 BP Diastolic 51mmHg :30 Temperature 98.9F :30 Social history Type Value Smoking Status FORMER SMOKER Treatment Plan No treatment plan text is available for this visit. Hospital discharge instructions Dismissal Condition good Disposition on DC home DC Inst/Educ Give yes Med/Side Effects Rev yes Flu Vac 2014
--- OUTSIDE RECORDS SUMMARY | 2016-08-07 11:25 | XMS REPORT | Clinical Summary ---
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 Resolved Jonel Hemphill MD Long-term (current) [...] Coronary atherosclerosis of unspecified type of vessel, [place] or graft FH DIABETES V18.0 Resolved Jonel [...] Coronary atherosclerosis of unspecified type of vessel, [place] or graft CONSTIPATION 564.00 Resolved Jonel Hemphill [...] fatigue Malaise and fatigue 780.79 Resolved Jonel eHmphill MD Other malaise and fatigue Nightmares 307.47 [...] pain Hip pain, right 719.45 Active Jonel eHmphill MD Pain in joint involving pelvic region and thigh 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 USE, CORRECTION ICD-V58.69 Inactive Jonel Hemphill MD DIABETES, TYPE [...] Hemphill MD RECTAL BLEEDING ICD-569.3 Inactive Jonel Hemphlil MD FITTING AND ADJUSTMENT OF VASCULAR CATHETER [...] Generic Name NDC Status Provider Patient Instruction DILANTIN 100 MG ORAL CAPS 1 THREE TIMES DAILY FOR SEIZURES PHENYTOIN SODIUM EXTENDED 51654527665 Active Marleni Romero Active CPAP APPLY AT HS CPAP Active Jonel Hemphill MD Active METOPROLOL TARTRATE 50 MG ORAL TABS 1 TAB BY MOUTH TWICE DAILY METOPROLOL TARTRATE 81719397783 Active Jonel Hemphill MD Active LISINOPRIL 40 MG TABS 1 tablet by mouth twice daily, for blood pressure 03/31 LISINOPRIL 49744104789 Active Jonel Hemphill MD Active BUPROPION HCL ER (SR) 150 MG [id number] 1 twice a day for depression BUPROPION HCL 81129186384 Active Jonel Hemphill MD Active MULTIVITAMINS CAPS 1 DAILY MULTIPLE VITAMIN 55461309768 Active Jonel Hemphill MD Active ZYLOPRIM 300 MG TAB 1 BY MOUTH DAILY ALLOPURINOL 01974494707 Active Jonel Hemphill MD Active HYDROCODONE-ACETAMINOPHEN 7.5-325 MG TABS 1 q 6 hrs prn HYDROCODONE-ACETAMINOPHEN 61029891379 No Longer Active Jonel Hemphill MD Active DILANTIN 100 MG CAPS 3 cap tid PHENYTOIN SODIUM EXTENDED 41928741094 No Longer Active Jonel Hemphill MD Active BUDEPRION SR 150 MG [id number] 1 bid BUPROPION HCL 60707168584 No Longer Active Jonel Hemphill MD Active ALLOPURINOL 300 MG TABS 1 qd ALLOPURINOL 84638280093 No Longer Active Jonel Hemphill MD Active COZAAR 100 MG TABS 1 qd LOSARTAN POTASSIUM 88029480339 No Longer Active Jonel Hemphill MD Active CVS VITAMIN C 500 MG TABS 1 po daily ASCORBIC ACID 76843449776 No Longer Active Jonel Hemphill MD Active MIRALAX POWD 17 gms in 4 oz water or juice daily POLYETHYLENE GLYCOL 3350 08220096847 No Longer Active Jonel Hemphill MD Active POTASSIUM CHLORIDE CHELA ER 20 MEQ CR-TABS 1 tab PO daily POTASSIUM CHLORIDE CHELA CR 62274904916 No Longer Active Jonel Hemphill MD Active AMBIEN 10 MG TAB 1 tab by mouth at bedtime as needed for sleep ZOLPIDEM TARTRATE 43677184138 No Longer Active Jonel Hemphill MD Active SULFAMETHOXAZOLE-TMP DS 800-160 MG TABS 1 TAB PO BID SULFAMETHOXAZOLE-TRIMETHOPRIM 13276410272 No Longer Active Jonel Hemphill MD Active NORCO 5-325 MG TABS 1-2 TAB Q 6 HRS PRN HYDROCODONE- ACETAMINOPHEN 87541938978 Active Jonel Hemphill MD Active LEVEMIR 100 UNIT/ML SOLN 5 units sub-q at bedtime INSULIN DETEMIR 59813459888 No Longer Active Tova Perez Active MOBIC 15 MG TABS 1 tab PO daily for arthritis pain MELOXICAM 78816328312 No Longer Active Tova Chris Active GLUCAGEN 1 MG SOLR INJECT 1MG IM IF BS LESS THAN 60 & RES. IS UNABLE TO SWALLOW GLUCAGON HCL (RDNA) 51950584729 No Longer Active Tova Chris Active CVS MILK OF MAGNESIA 1200 MG/15ML SUSP 30 ml daily for constipation MAGNESIUM HYDROXIDE 94978225852 No Longer Active Tova Chris Active IMDUR 120 MG [id number] 1 qd ISOSORBIDE MONONITRATE 05135266238 No Longer Active Tova Chris Active METFORMIN HCL 500 MG TABS 1 tablet by mouth twice daily METFORMIN HCL 61939193173 Active Tova Chris Active PHENYTOIN 50 MG CHEW 1 TAB PO BID PHENYTOIN 52344845781 Active Tova Chris Active MECLIZINE HCL 25 MG CHEW TAB 1 four times a day as needed for dizziness 02/21 MECLIZINE HCL 71445142952 Active Tova Perez Active GABAPENTIN 300 MG CAPS 1 CAP PO TID GABAPENTIN 57882678894 Active Tova Perez Active NEURONTIN 400 MG CAPS Take one by mouth 3 times daily, morning, afternoon and evening.] GABAPENTIN 60568845173 No Longer Active Tova Perez Active ANTIVERT 25 MG TABS 1 q 6 hrs prn MECLIZINE HCL 90289766018 No Longer Active Jonel Hemphill MD Active CLONIDINE HCL 0.2 MG TABS 1 q 8 hrs as needed -greater than 160-htn CLONIDINE HCL 25317127165 No Longer Active Jonel Hemphill MD Active AMBIEN 10 MG TABS 1 q hs prn ZOLPIDEM TARTRATE 89443527263 No Longer Active Jonel Hemphill MD Active GNP THERAPEUTIC-M TABS 1 qd MULTIPLE VITAMINS- MINERALS 00361718580 No Longer Active Jonel Hemphill MD Active METOPROLOL TARTRATE 50 MG TABS 1 bid METOPROLOL TARTRATE 32487106458 No Longer Active Jonel Hemphill MD Active METFORMIN HCL 500 MG TABS 1 bod with food METFORMIN HCL 00603741249 No Longer Active Jonel Hemphill MD Active LISINOPRIL 40 MG TABS 1 qd LISINOPRIL 06394896632 No Longer Active Jonel Hemphill MD Active HYDROCHLOROTHIAZIDE 25 MG TABS 1 qd HYDROCHLOROTHIAZIDE 07565440763 No Longer Active Jonel Hemphill MD Active DURAGESIC-25 25 MCG/HR PT72 place 1 patch on the skin q72hrs for pain FENTANYL 12376251323 No Longer Active Jonel Hemphill MD Active FENTANYL 75 MCG/HR PT72 place 1 patch on skin q72hrs fr pain 2012 FENTANYL 48132235596 No Longer Active Jonel Hemphill MD Active LASIX 20 MG TABS 1 tab PO q morning FUROSEMIDE 86442427859 Active Jonel Hemphill MD Active FUROSEMIDE 40 MG TABS 1 q am FUROSEMIDE 67719704798 No Longer Active Jonel Hemphill MD Active HEPARIN (PORCINE) LOCK FLUSH 100 UNIT/ML SOLN Flush port a cath monthly every three week on with Heparin and NS HEPARIN LOCK FLUSH 72714786654 Active Jonel Hemphill MD Active FENTANYL 100 MCG/HR PT72 Apply every 3 days FENTANYL 31657614112 Active Jonel Hempihll MD Active FENTANYL 25 MCG/HR PT72 Apply to clean skin and change every 72 hours. 07/03 FENTANYL 39452892439 No Longer Active Jonel Hemphill MD Active FENTANYL 50 MCG/HR PT72 place 1 patch on skin q72 hours FENTANYL 31506965160 No Longer Active Mayco Shah APRN Active ATIVAN 0.5 MG TABS Take 1 tablet 2x daily LORAZEPAM 97262084634 Active Jonel Hemphill MD Active CELEXA 20 MG TABS Take 1 tablet 1x daily CITALOPRAM HYDROBROMIDE 08585082968 Active Jonel Hemphill MD Active DURAGESIC-12 12 MCG/HR PT72 APPLY PATCH TO SKIN AND CHANGE EVERY 72 HOURS, ROTATE SITES FENTANYL 95197020889 No Longer Active Fozia HERNANDEZ Active FUROSEMIDE 20 MG TABS 1 qd FUROSEMIDE 64174487748 No Longer Active Mahogany Bolivar Active ADULT ASPIRIN EC LOW STRENGTH 81 MG TBEC 1 qd ASPIRIN 24612664999 Active MARY Perez Active FUROSEMIDE 20 MG TABS 1 qd FUROSEMIDE 20 MG TABS 981616 FUROSEMIDE Inactive DURAGESIC-12 12 MCG/HR PT72 APPLY PATCH TO SKIN AND CHANGE EVERY 72 HOURS, ROTATE SITES DURAGESIC-12 12 MCG/HR PT72 555962 FENTANYL Inactive FENTANYL 50 MCG/HR PT72 place 1 patch on skin q72 hours FENTANYL 50 MCG/HR PT72 267013 FENTANYL Inactive FUROSEMIDE 40 MG TABS 1 q am FUROSEMIDE 40 MG TABS 383764 FUROSEMIDE Inactive FENTANYL 75 MCG/HR PT72 place 1 patch on skin q72hrs fr pain 2012 FENTANYL 75 MCG/HR PT72 087809 FENTANYL Inactive DURAGESIC-25 25 MCG/HR PT72 place 1 patch on the skin q72hrs for pain DURAGESIC-25 25 MCG/HR PT72 226751 FENTANYL Inactive HYDROCHLOROTHIAZIDE 25 MG TABS 1 qd HYDROCHLOROTHIAZIDE 25 MG TABS 318288 HYDROCHLOROTHIAZIDE Inactive LISINOPRIL 40 MG TABS 1 qd LISINOPRIL 40 MG TABS 754805 LISINOPRIL Inactive METFORMIN HCL 500 MG TABS 1 bod with food METFORMIN HCL 500 MG TABS 378443 METFORMIN HCL Inactive METOPROLOL TARTRATE 50 MG TABS 1 bid METOPROLOL TARTRATE 50 MG TABS 186723 METOPROLOL TARTRATE Inactive GNP THERAPEUTIC-M TABS 1 qd GNP THERAPEUTIC-M TABS MULTIPLE VITAMINS-MINERALS Inactive AMBIEN 10 MG TABS 1 q hs prn AMBIEN 10 MG TABS 595725 ZOLPIDEM TARTRATE Inactive CLONIDINE HCL 0.2 MG TABS 1 q 8 hrs as needed -greater than 160-htn CLONIDINE HCL 0.2 MG TABS 113122 CLONIDINE HCL Inactive ANTIVERT 25 MG TABS 1 q 6 hrs prn ANTIVERT 25 MG TABS MECLIZINE HCL Inactive NEURONTIN 400 MG CAPS Take one by mouth 3 times daily, morning, afternoon and evening.] NEURONTIN 400 MG CAPS 573541 GABAPENTIN Inactive IMDUR 120 MG [id number] 1 qd IMDUR 120 MG [id number] ISOSORBIDE MONONITRATE Inactive CVS MILK OF MAGNESIA [...] for arthritis pain MOBIC 15 MG TABS 621588 MELOXICAM Inactive LEVEMIR 100 UNIT/ML SOLN 5 units sub-q at bedtime LEVEMIR 100 UNIT/ML SOLN INSULIN DETEMIR Inactive SULFAMETHOXAZOLE-TMP DS 800-160 MG TABS 1 TAB PO BID SULFAMETHOXAZOLE-TMP DS 800-160 MG TABS SULFAMETHOXAZOLE-TRIMETHOPRIM Inactive AMBIEN 10 MG TAB 1 tab by mouth at bedtime as needed for sleep AMBIEN 10 MG TAB 304807 ZOLPIDEM TARTRATE Inactive POTASSIUM CHLORIDE CHELA ER 20 MEQ CR-TABS 1 tab PO daily POTASSIUM CHLORIDE CHELA ER 20 MEQ CR-TABS POTASSIUM CHLORIDE CHELA CR Inactive MIRALAX POWD 17 gms in 4 oz water or juice daily MIRALAX POWD 818228 POLYETHYLENE GLYCOL 3350 Inactive CVS VITAMIN C 500 MG TABS 1 po daily CVS VITAMIN C 500 MG TABS 893981 ASCORBIC ACID Inactive COZAAR 100 MG TABS 1 qd COZAAR 100 MG TABS 079415 LOSARTAN POTASSIUM Inactive ALLOPURINOL 300 MG TABS 1 qd ALLOPURINOL 300 MG TABS 822421 ALLOPURINOL Inactive BUDEPRION SR 150 MG [id number] 1 bid BUDEPRION SR 150 MG [id number] BUPROPION HCL Inactive DILANTIN 100 MG CAPS 3 cap tid DILANTIN 100 MG CAPS 900181 PHENYTOIN SODIUM EXTENDED Inactive HYDROCODONE-ACETAMINOPHEN 7.5-325 MG TABS 1 q 6 hrs prn HYDROCODONE-ACETAMINOPHEN 7.5-325 MG TABS 941454 HYDROCODONE- ACETAMINOPHEN Inactive FENTANYL 25 MCG/HR PT72 Apply to clean skin and change every 72 hours. 07/03 FENTANYL 25 MCG/HR PT72 247021 FENTANYL Inactive Advance Directives Directive Description Start Date ADVANCE DIRECTIVE Immunizations Vaccine Administration Date Value Standard Description influenza immunization (Flu Vax) has been administered Influenza - Unspecified Formulation [CVX88] influenza virus vaccine, unspecified formulation pneumococcal immunization administered Pneumovax 23 [CVX33] pneumococcal polysaccharide vaccine, 23 valent Vital Signs Date Name Value Unit Range Description blood pressure, diastolic - 8462-4 85 mm[Hg] [...] E&M - 3141-9 340 [lb_av] Weight Measured Diagnostic Results Date Name [...] platelet count 128 10*3/mm3 Lab Report: CBC W/DIFF, Comp. Metabolic Panel, MELANIE INFLUENZA A/B - Chemistry sodium, serum 142 mmol/L 396-976 2651/01/20 potassium, serum 3.9 mmol/L 3.5-5.2 chloride, serum [...] - Toxicology rapid flu test Negative Negative;Positive Encounters Code Encounter Date Provider Facility CPT-94340 Level 3 Est. Patient 18:04:07 CDT Jonel Hemphill MD [facility]-05072 Level 3 Est. Patient 17:18:03 CDT Jonel Hemphill MD [facility]-96735 Level 3 Est. Patient 21:58:03 CREDIT COUNSELOR Jonel Hemphill MD [facility] CPT-19505 Level 4 Est. Patient 18:03:14 CDT Jonel Yeager [facility]-32930 Level 4 Est. Patient 13:24:53 CDT Jonel Yeager [facility]-48913 Level 4 Est. Patient 09:15:44 CDT Jonel Yeager [facility]-42187 Level 4 Est. Patient 19:16:01 CDT Jonel Yeager [facility] [address]-74085 Level 4 Est. Patient 11:25:16 CDT Jonel Hemphill MD [facility]-69250 Level 4 Est. Patient 09:00:40 CDT Jonel Yeager [facility]-90218 Level 4 Est. Patient 14:53:58 CDT Jonel Hemphill MD [facility] CPT-83645 Level 4 Est. Patient 22:59:01 CDT Jonel Hemphill MD [facility]-04808 Level 4 Est. Patient 09:29:57 CDT Jonel Hemphill MD [facility]-78744 Level 4 Est. Patient 12:35:53 CREDIT COUNSELOR Jonel Hemphill MD [facility]-87586 Level 4 Est. Patient 22:36:09 CREDIT COUNSELOR Jonel Hemphill MD [facility]-21034 Level 2 Est. Patient 15:14:15 CREDIT COUNSELOR Mayco Shah APRN [facility] CPT-71361 Level 4 Est. Patient 10:36:22 CREDIT COUNSELOR Jonel Hemphill MD [facility] CPT-92965 Level 4 Est. Patient 22:01:13 CREDIT COUNSELOR Jonel Hemphill MD [facility]-57602 Level 3 Est. Patient 21:50:37 CREDIT COUNSELOR Jonel Hemphill MD [facility] CPT-86896 Level 4 Est. Patient 15:02:43 CDT Rubin Pierre MD [facility] CPT-61657 Level 4 Est. Patient 14:27:35 CDT Jonel Hemphill MD [facility]-03862 Level 4 Est. Patient 12:41:17 CDT Jonel Hemphill MD [facility]-46151 Level 4 Est. Patient 16:18:55 CDT Jonel Hemphill MD [facility]-62353 Level 4 Est. Patient 17:58:05 CDT Jonel Hemphill MD [facility]-55572 Level 4 Est. Patient 22:10:06 CDT Jonel Hemphill MD [facility]-81141 Level 4 Est. Patient 13:22:09 CDT Jonel Hemphill MD [facility]-41942 Level 4 Est. Patient 22:52:17 CREDIT COUNSELOR Jonel Hemphill MD [facility] CPT-68376 Level 3 Est. Patient 22:34:10 CREDIT COUNSELOR Jonel Hemphill MD [facility] CPT-35748 Level 4 Est. Patient 07:49:20 CREDIT COUNSELOR Jonel Hemphill MD [facility] Skilled CPT-92769 Level 3 Est. Patient 08:28:27 CREDIT COUNSELOR Jonel Hemphill MD [facility] Procedures Code Procedure Name Date Entry Date Standard Description CPT-25367 Level 3 Shelter 13:32:58 CDT CPT-07040 Level 3 Shelter 17:43:43 CDT CPT-51623 Level 3 Shelter 12:03:33 CREDIT COUNSELOR CPT-49569 Level 3 Shelter 18:47:28 CREDIT COUNSELOR CPT-71613 Level 3 Shelter 17:35:26 CREDIT COUNSELOR CPT-02325 Level 3 Shelter 18:44:49 CREDIT COUNSELOR CPT-37377 Level 3 Shelter 18:17:33 CDT CPT-75608 Level 3 Shelter 09:25:33 CDT CPT-07013 Level 3 Shelter 19:11:57 CDT CPT-06982 Level 3 Shelter 09:25:52 CDT CPT-59038 Level 3 Shelter 14:23:59 CDT CPT-14505 Level 3 Shelter 12:09:43 CDT CPT-58415 Level 3 Shelter 09:37:40 CDT CPT-87093 Level 3 Shelter 18:23:02 CDT CPT-45518 Level 3 Shelter 14:09:06 CDT CPT-79249 Level 3 Shelter 12:43:27 CREDIT COUNSELOR CPT-30859 Postop F/U Visit 14:10:15 CREDIT COUNSELOR CPT-00091 [facility] Head [facility] Neck 17:07:14 CREDIT COUNSELOR CPT-29695 Level 3 Shelter 16:14:37 CREDIT COUNSELOR CPT-23115 Port a cath flush 11:47:42 CDT CPT-12618 Port a cath flush 08:29:49 CDT CPT-OV Office Visit 14:27:58 CREDIT COUNSELOR
--- OUTSIDE RECORDS SUMMARY | 2016-08-07 11:25 | XMS REPORT ---
Author Author [facility] Medical Staff Organization [facility] Address [address] [place], [place] [address] Phone [phone] Care Team Providers Care Flight Operations Inspector Name Role Phone FRANKO PRIETO MD PP [phone] FRANKO PRIETO MD PP [phone] Summary purpose CCDA Sent to [facility] Chief Complaint and Reason for Visit Admit Diagnosis 1 AGITATION,HOMICIDAL IDEATION Problem list No authorized problems tracked for [...] Relevant diagnostic tests and/or laboratory data RESULTS CBC [id number]:15:00 Result Normal Range Units WBC 6.92 4.60-10.20 x 103/uL RBC 4.09 4.04-6.13 x 106/uL Hemoglobin 12.6 12.2-18.1 g/dl Hematocrit L 37.2 37.7-53.7 % MCV 91.0 80.0-97.0 FL MCH 30.8 27.0-31.2 pg MCHC 33.9 31.8-35.4 g/dl RDW H 14.9 11.6-14.8 % Platelets L 136 142-424 x 103/uL MPV 12.2 9.4-12.4 FL Manual Diff Not Indicated Neutrophil % 68.6 37-80 % Neutrophils 4.75 2.0-6.9 x 103/uL Lymphocyte % 23.8 10-50 % Lymphocytes 1.65 0.6-3.4 x 103/uL Monocyte % 6.4 0-12 % Monocytes 0.44 0.0-1.0 x 103/uL Eosinophil % 0.9 0-7 % Eosinophils 0.06 0-0.7 x 103/uL Basophil % 0.3 0-2 % Basophils 0.02 0.0-0.1 x 103/uL Urinalysis :48:00 Result Normal Range Units Site Voided Urine Color Yellow Yellow Urine Appearance Clear Clear Urine Glucose Negative Negative Urine Bilirubin Negative Negative Urine Ketones Negative Negative Urine Specific [place]olia H 1.025 1.010-1.020 Urine PH 6.0 5.5-7.5 Urine Protein Negative Negative Urine Urobilinogen 0.2 0.2-1.0 Urine Nitrites Negative Negative Urine Blood Negative Negative Urine Leukocytes Negative Negative Culture Pending Urine RBC's 0-2 Urine Bacteria Trace Squamous Epi's Trace Chemistry Group :15:00 Result Normal Range Units Glucose H 182 70-99 mg/dl BUN 18 7-26 mg/dl Creatinine 1.1 0.6-1.3 mg/dl Sodium 141 136-145 mmol/L Potassium 4.1 3.5-5.1 mmol/L Chloride 101 98-107 mmol/L CO2 29 22-29 mmol/L BUN/Creatinine Ratio 16 7-25 Ratio Calcium 10.0 8.4-10.2 mg/dl Protein Total H 8.6 6.4-8.3 g/dl Albumin 4.0 3.5-5.0 g/dl A/G Ratio L 0.9 1.2-2.2 Ratio AST 16 5-34 U/L ALT 26 0-55 U/L ALP 46 40-150 U/L Bilirubin Total 0.3 0.2-1.2 mg/dl Osmolality 279 261-280 mOsm/kg Globulin H 4.6 2.4-3.5 g/dl Phenytoin L 2.60 10-20 ug/ml Digoxin <0.30 Test Digoxin with result of<0.30 was originally reported as 0.30 and was changed on 02/08/2016 17:28 by LM Free T4 1.08 0.70-1.48 ng/dl TSH 0.73 0.35-4.94 uIU/mL Reference Lab Group :15:00 EKG See Manual Report Urinalysis :48:00 Result Normal Range Units Site Voided Urine Color Yellow Yellow Urine Appearance Clear Clear Urine Glucose Negative Negative Urine Bilirubin Negative Negative Urine Ketones Negative Negative Urine Specific Magnolia H 1.025 1.010-1.020 Urine PH 6.0 5.5-7.5 Urine Protein Negative Negative Urine Urobilinogen 0.2 0.2-1.0 Urine Nitrites Negative Negative Urine Blood Negative Negative Urine Leukocytes Negative Negative Culture Pending Urine RBC's 0-2 Urine Bacteria Trace Squamous Epi's Trace History of procedures No procedures recorded for this patient visit. Functional status Functional Status Finding Observation Time Dexterity Right-handed :22 Weight Bearing Statu Limited(see comment) Comment: Has had stroke. Does not use R leg :22 Transferring/Ambulat Needs Assistance :22 Bathing Needs Assistance : Dressing Needs Assistance : Eating Independent : Drinking Independent : Toileting Needs Assistance : Able to Turn Self in Independent : Stairs Not Done : Wheelchair Yes [id number]:22 Cognitive Status Finding Observation Time Level of Consciousne Alert 67-22-364670:20 Oriented to Person Yes 78-79-362381:[address] Yes 18-79-400752:20 Oriented to Time Yes [id number]:20 Eyes - BART Yes 92-48-222767:20 Vital signs Type Value Date Respirations 18 03-69-795900:00 Pulse 91 05-06-781286:00 O2 Saturation 95% 42-93-693272:20 Systolic Blood Press 131mm/HG 36-17-511293:00 Diastolic Blood Pres 84mm/HG 44-08-188195:00 Temperature (Fahr) 97.2Degrees 92-47-659508:00 Height 68in 67-68-063282:20 Weight 337.2LB 75-51-909071:20 Social history Type Value Smoking Status NEVER SMOKER Treatment Plan No treatment plan text is available for this visit. Hospital discharge instructions No discharge instruction text is available for this visit.
--- OUTSIDE RECORDS SUMMARY | 2016-08-07 11:26 | XMS REPORT | Clinical Summary ---
Author Author Admin, KARLAE Organization [facility] Address Unknown Phone Unavailable Allergies, Adverse Reactions, Alerts Allergy Name Reaction Description Start Date Severity Status Provider PENICILLIN Critical Active Thompsonjaida Giles RMA Conditions or Problems Problem Name 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, BATTERY VENT PLUG INSERTER V58.69 Resolved Jonel Hemphill MD Long-term (current) [...] Coronary atherosclerosis of unspecified type of vessel, buckland or graft FH DIABETES V18.0 Resolved Jonel [...] Coronary atherosclerosis of unspecified type of vessel, buckland or graft CONSTIPATION 564.00 Resolved Jonel Hemphill [...] abscess of leg, except foot 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 USE, BATTERY VENT PLUG INSERTER ICD-V58.69 Inactive Jonel Hemphill MD DIABETES, TYPE [...] TAB PO Q 6 HRS PRN HYDROCODONE-ACETAMINOPHEN 18578835987 Active Jonel Hemphill MD Active METFORMIN HCL 1000 MG TABS 1 tablet by mouth twice daily METFORMIN HCL 07017733113 Active Marleni Romero Active FENTANYL 12 MCG/HR PT72 Apply to clean, dry skin and change every 72 hours FENTANYL 47025525135 Active Sharon Downs APRN Active KLOR-CON 20 MEQ ORAL PACK 1 BY MOUTH DAILY POTASSIUM CHLORIDE 61688823448 Active Marleni Romero Active A+D FIRST AID EXT OINT APPLY OINTMENT AND RUFINO WRAPS TO LOWER EXTEREMETIES DAILY SKIN PROTECTANTS, MISC. 04440628958 Active Jonel Hemphill MD Active NYSTATIN 145955 UNIT/GM EXT OINT APPLY PRN TID TO GAULDING/RASH IN ABDOMINAL FOLDS NYSTATIN 26834619444 Active Jonel Hemphill MD Active ATIVAN 0.5 MG TABS Take 1 tablet 2x daily PRN LORAZEPAM 72222510639 Active Jonel Hemphill MD Active GABAPENTIN 400 MG ORAL CAPS 1 TAB BY MOUTH THREE TIMES DAILY GABAPENTIN 92498591033 Active Jonel Hemphill MD Active GABAPENTIN 300 MG CAPS 1 CAP PO TID GABAPENTIN 08504960186 No Longer Active Jonel Hemphill MD Active DILANTIN 100 MG ORAL CAPS 1 THREE TIMES DAILY FOR SEIZURES PHENYTOIN SODIUM EXTENDED 78758043487 Active Marleni Romero Active CPAP APPLY AT HS CPAP Active Jonel Hemphill MD Active METOPROLOL TARTRATE 50 MG ORAL TABS 1 TAB BY MOUTH TWICE DAILY METOPROLOL TARTRATE 15532078785 Active Jonel Hemphill MD Active LISINOPRIL 40 MG TABS 1 tablet by mouth twice daily, for blood pressure 03/31 LISINOPRIL 57112879352 Active Jonel Hemphill MD Active BUPROPION HCL ER (SR) 150 MG [id number] 1 twice a day for depression BUPROPION HCL 11534238813 Active Jonel Hemphill MD Active MULTIVITAMINS CAPS 1 DAILY MULTIPLE VITAMIN 06364609883 Active Jonel Hemphill MD Active ZYLOPRIM 300 MG TAB 1 BY MOUTH DAILY ALLOPURINOL 55325893426 Active Jonel Hemphill MD Active HYDROCODONE-ACETAMINOPHEN 7.5-325 MG TABS 1 q 6 hrs prn HYDROCODONE-ACETAMINOPHEN 71014174982 No Longer Active Jonel Hemphill MD Active DILANTIN 100 MG CAPS 3 cap tid PHENYTOIN SODIUM EXTENDED 31938471062 No Longer Active Jonel Hemphill MD Active BUDEPRION SR 150 MG [id number] 1 bid BUPROPION HCL 47186105996 No Longer Active Jonel Hemphill MD Active ALLOPURINOL 300 MG TABS 1 qd ALLOPURINOL 72647052282 No Longer Active Jonel Hemphill MD Active COZAAR 100 MG TABS 1 qd LOSARTAN POTASSIUM 40017036761 No Longer Active Jonel Hemphill MD Active CVS VITAMIN C 500 MG TABS 1 po daily ASCORBIC ACID 70649171213 No Longer Active Jonel Hemphill MD Active MIRALAX POWD 17 gms in 4 oz water or juice daily POLYETHYLENE GLYCOL 3350 50245807129 No Longer Active Jonel Hemphill MD Active POTASSIUM CHLORIDE CHELA ER 20 MEQ CR-TABS 1 tab PO daily POTASSIUM CHLORIDE CHELA CR 57997302234 No Longer Active Jonel Hemphill MD Active AMBIEN 10 MG TAB 1 tab by mouth at bedtime as needed for sleep ZOLPIDEM TARTRATE 95406413769 No Longer Active Jonel Hemphill MD Active SULFAMETHOXAZOLE-TMP DS 800-160 MG TABS 1 TAB PO BID SULFAMETHOXAZOLE-TRIMETHOPRIM 30526772677 No Longer Active Jonel Hemphill MD Active NORCO 5-325 MG TABS 1-2 TAB Q 6 HRS PRN HYDROCODONE- ACETAMINOPHEN 81031921751 Active Jonel Hemphill MD Active LEVEMIR 100 UNIT/ML SOLN 5 units sub-q at bedtime INSULIN DETEMIR 98168367019 No Longer Active Tova Perez Active MOBIC 15 MG TABS 1 tab PO daily for arthritis pain MELOXICAM 61553206451 No Longer Active Tova Perez Active GLUCAGEN 1 MG SOLR INJECT 1MG IM IF BS LESS THAN 60 & RES. IS UNABLE TO SWALLOW GLUCAGON HCL (RDNA) 26840294586 No Longer Active Tova Perez Active CVS MILK OF MAGNESIA 1200 MG/15ML SUSP 30 ml daily for constipation MAGNESIUM HYDROXIDE 38129579473 No Longer Active Tova Perez Active IMDUR 120 MG [id number] 1 qd ISOSORBIDE MONONITRATE 02326719558 No Longer Active Tova Chris Active PHENYTOIN 50 MG CHEW 1 TAB PO BID PHENYTOIN 08254658922 Active Tova Chris Active MECLIZINE HCL 25 MG CHEW TAB 1 four times a day as needed for dizziness 02/21 MECLIZINE HCL 45759966865 Active Tova Chris Active NEURONTIN 400 MG CAPS Take one by mouth 3 times daily, morning, afternoon and evening.] GABAPENTIN 55866810340 No Longer Active Tova Chris Active ANTIVERT 25 MG TABS 1 q 6 hrs prn MECLIZINE HCL 45003959213 No Longer Active Jonel Hemphill MD Active CLONIDINE HCL 0.2 MG TABS 1 q 8 hrs as needed -greater than 160-htn CLONIDINE HCL 80158355159 No Longer Active Jonel Hemphill MD Active AMBIEN 10 MG TABS 1 q hs prn ZOLPIDEM TARTRATE 12059370323 No Longer Active Jonel Hemphill MD Active GNP THERAPEUTIC-M TABS 1 qd MULTIPLE VITAMINS- MINERALS 36877409561 No Longer Active Jonel Hemphill MD Active METOPROLOL TARTRATE 50 MG TABS 1 bid METOPROLOL TARTRATE 77602813743 No Longer Active Jonel Hemphill MD Active METFORMIN HCL 500 MG TABS 1 bod with food METFORMIN HCL 24581874053 No Longer Active Jonel Hemphill MD Active LISINOPRIL 40 MG TABS 1 qd LISINOPRIL 66155713044 No Longer Active Jonel Hemphill MD Active HYDROCHLOROTHIAZIDE 25 MG TABS 1 qd HYDROCHLOROTHIAZIDE 21481845326 No Longer Active Jonel Hemphill MD Active DURAGESIC-25 25 MCG/HR PT72 place 1 patch on the skin q72hrs for pain FENTANYL 76888726606 No Longer Active Jonel Hemphill MD Active FENTANYL 75 MCG/HR PT72 place 1 patch on skin q72hrs fr pain 2012 FENTANYL 89164632198 No Longer Active Jonel Hemphill MD Active LASIX 20 MG TABS 1 tab PO q morning FUROSEMIDE 41369354385 Active Jonel Hemphill MD Active FUROSEMIDE 40 MG TABS 1 q am FUROSEMIDE 47128916628 No Longer Active Jonel Hemphill MD Active HEPARIN (PORCINE) LOCK FLUSH 100 UNIT/ML SOLN Flush port a cath monthly every three week on with Heparin and NS HEPARIN LOCK FLUSH 02910867659 Active Jonel Hemphill MD Active FENTANYL 100 MCG/HR PT72 Apply every 3 days FENTANYL 64301443442 Active Jonel Hemphill MD Active FENTANYL 25 MCG/HR PT72 Apply to clean skin and change every 72 hours. 07/03 FENTANYL 23696367183 No Longer Active Jonel Hemphill MD Active FENTANYL 50 MCG/HR PT72 place 1 patch on skin q72 hours FENTANYL 98203724648 No Longer Active Mayco Shah APRN Active CELEXA 20 MG TABS Take 1 tablet 1x daily CITALOPRAM HYDROBROMIDE 52539731139 Active Jonel Hemphill MD Active DURAGESIC-12 12 MCG/HR PT72 APPLY PATCH TO SKIN AND CHANGE EVERY 72 HOURS, ROTATE SITES FENTANYL 58484312145 No Longer Active Fozia YANGA Active FUROSEMIDE 20 MG TABS 1 qd FUROSEMIDE 91791526520 No Longer Active Mahogany [place] Active ADULT ASPIRIN EC LOW STRENGTH 81 MG TBEC 1 qd ASPIRIN 39350886134 Active MARY Perez Active FUROSEMIDE 20 MG TABS 1 qd FUROSEMIDE 20 MG TABS 572185 FUROSEMIDE Inactive DURAGESIC-12 12 MCG/HR PT72 APPLY PATCH TO SKIN AND CHANGE EVERY 72 HOURS, ROTATE SITES DURAGESIC-12 12 MCG/HR PT72 675930 FENTANYL Inactive FENTANYL 50 MCG/HR PT72 place 1 patch on skin q72 hours FENTANYL 50 MCG/HR PT72 330358 FENTANYL Inactive FUROSEMIDE 40 MG TABS 1 q am FUROSEMIDE 40 MG TABS 699155 FUROSEMIDE Inactive FENTANYL 75 MCG/HR PT72 place 1 patch on skin q72hrs fr pain 2012 FENTANYL 75 MCG/HR PT72 338037 FENTANYL Inactive DURAGESIC-25 25 MCG/HR PT72 place 1 patch on the skin q72hrs for pain DURAGESIC-25 25 MCG/HR PT72 408635 FENTANYL Inactive HYDROCHLOROTHIAZIDE 25 MG TABS 1 qd HYDROCHLOROTHIAZIDE 25 MG TABS 037314 HYDROCHLOROTHIAZIDE Inactive LISINOPRIL 40 MG TABS 1 qd LISINOPRIL 40 MG TABS 738356 LISINOPRIL Inactive METFORMIN HCL 500 MG TABS 1 bod with food METFORMIN HCL 500 MG TABS 049498 METFORMIN HCL Inactive METOPROLOL TARTRATE 50 MG TABS 1 bid METOPROLOL TARTRATE 50 MG TABS 955503 METOPROLOL TARTRATE Inactive GNP THERAPEUTIC-M TABS 1 qd GNP THERAPEUTIC-M TABS MULTIPLE VITAMINS-MINERALS Inactive AMBIEN 10 MG TABS 1 q hs prn AMBIEN 10 MG TABS 003851 ZOLPIDEM TARTRATE Inactive CLONIDINE HCL 0.2 MG TABS 1 q 8 hrs as needed -greater than 160-htn CLONIDINE HCL 0.2 MG TABS 955164 CLONIDINE HCL Inactive ANTIVERT 25 MG TABS 1 q 6 hrs prn ANTIVERT 25 MG TABS MECLIZINE HCL Inactive NEURONTIN 400 MG CAPS Take one by mouth 3 times daily, morning, afternoon and evening.] NEURONTIN 400 MG CAPS 880375 GABAPENTIN Inactive IMDUR 120 MG [id number] 1 qd IMDUR 120 MG [id number] ISOSORBIDE MONONITRATE Inactive CVS MILK OF MAGNESIA [...] for arthritis pain MOBIC 15 MG TABS 026523 MELOXICAM Inactive LEVEMIR 100 UNIT/ML SOLN 5 units sub-q at bedtime LEVEMIR 100 UNIT/ML SOLN INSULIN DETEMIR Inactive SULFAMETHOXAZOLE-TMP DS 800-160 MG TABS 1 TAB PO BID SULFAMETHOXAZOLE-TMP DS 800-160 MG TABS 021104 SULFAMETHOXAZOLE-TRIMETHOPRIM Inactive AMBIEN 10 MG TAB 1 tab by mouth at bedtime as needed for sleep AMBIEN 10 MG TAB 787824 ZOLPIDEM TARTRATE Inactive POTASSIUM CHLORIDE CHELA ER 20 MEQ CR-TABS 1 tab PO daily POTASSIUM CHLORIDE CHELA ER 20 MEQ CR-TABS POTASSIUM CHLORIDE CHELA CR Inactive MIRALAX POWD 17 gms in 4 oz water or juice daily MIRALAX POWD 406887 POLYETHYLENE GLYCOL 3350 Inactive CVS VITAMIN C 500 MG TABS 1 po daily CVS VITAMIN C 500 MG TABS 042468 ASCORBIC ACID Inactive COZAAR 100 MG TABS 1 qd COZAAR 100 MG TABS 151711 LOSARTAN POTASSIUM Inactive ALLOPURINOL 300 MG TABS 1 qd ALLOPURINOL 300 MG TABS 060024 ALLOPURINOL Inactive BUDEPRION SR 150 MG [id number] 1 bid BUDEPRION SR 150 MG [id number] BUPROPION HCL Inactive DILANTIN 100 MG CAPS 3 cap tid DILANTIN 100 MG CAPS 270354 PHENYTOIN SODIUM EXTENDED Inactive HYDROCODONE-ACETAMINOPHEN 7.5-325 MG TABS 1 q 6 hrs prn HYDROCODONE-ACETAMINOPHEN 7.5-325 MG TABS 746451 HYDROCODONE- ACETAMINOPHEN Inactive GABAPENTIN 300 MG CAPS 1 CAP PO TID GABAPENTIN 300 MG CAPS 633071 GABAPENTIN Inactive FENTANYL 25 MCG/HR PT72 Apply to clean skin and change every 72 hours. 07/03 FENTANYL 25 MCG/HR PT72 051632 FENTANYL Inactive Advance Directives Directive Description Start [...] 4.3-6.0 Encounters Code Encounter Date Provider Facility CPT-45068 Level 3 Est. Patient 18:04:07 CDT Jonel Hemphill MD [facility] CPT-70481 Level 3 Est. Patient 17:18:03 CDT Jonel Hemphill MD [facility] CPT-98338 Level 3 Est. Patient 21:58:03 RECORDS COORDINATOR Jonel Hemphill MD [facility] CPT-34427 Level 4 Est. Patient 18:03:14 CDT Jonel Hemphill MD [facility]-75226 Level 4 Est. Patient 13:24:53 CDT Jonel Hemphill MD [facility]-43490 Level 4 Est. Patient 09:15:44 CDT Jonel Hemphill MD [facility]-84648 Level 4 Est. Patient 19:16:01 CDT Jonel Hemphill MD [facility]-03699 Level 4 Est. Patient 11:25:16 CDT Jonel Hemphill MD [facility]-91559 Level 4 Est. Patient 09:00:40 CDT Jonel Hemphill MD [facility]-78142 Level 4 Est. Patient 14:53:58 CDT Jonel Hemphill MD [facility]-81417 Level 4 Est. Patient 22:59:01 CDT Jonel Hemphill MD [facility]-18109 Level 4 Est. Patient 09:29:57 CDT Jonel Hemphill MD [facility]-35657 Level 4 Est. Patient 12:35:53 RECORDS COORDINATOR Jonel Hemphill MD [facility]-24950 Level 4 Est. Patient 22:36:09 RECORDS COORDINATOR Jonel Hemphill MD [facility]-16621 Level 2 Est. Patient 15:14:15 RECORDS COORDINATOR Mayco Shah APRN [facility] CPT-05830 Level 4 Est. Patient 10:36:22 RECORDS COORDINATOR Jonel Hemphill MD [facility]-25920 Level 4 Est. Patient 22:01:13 RECORDS COORDINATOR Jonel Hemphill MD [facility]-20907 Level 3 Est. Patient 21:50:37 RECORDS COORDINATOR Jonel Hemphill MD [facility] CPT-67450 Level 4 Est. Patient 15:02:43 CDT Rubin Pierre MD [facility] CPT-60682 Level 4 Est. Patient 14:27:35 CDT Jonel Hemphill MD [facility]-67944 Level 4 Est. Patient 12:41:17 CDT Jonel Hemphill MD [facility]-04309 Level 4 Est. Patient 16:18:55 CDT Jonel Hemphill MD [facility]-20052 Level 4 Est. Patient 17:58:05 CDT Jonel Hemphill MD [facility]-60663 Level 4 Est. Patient 22:10:06 CDT Jonel Hemphill MD [facility]-94461 Level 4 Est. Patient 13:22:09 CDT Jonel Hemphill MD [facility]-65872 Level 4 Est. Patient 22:52:17 RECORDS COORDINATOR Jonel Hemphill MD [facility]-92070 Level 3 Est. Patient 22:34:10 RECORDS COORDINATOR Jonel Hemphill MD [facility]-48018 Level 4 Est. Patient 07:49:20 RECORDS COORDINATOR Jonel Hemphill MD [facility] Skilled CPT-05482 Level 3 Est. Patient 08:28:27 RECORDS COORDINATOR Jonel Hemphill MD [facility] Procedures Code Procedure Name Date Entry Date Standard Description CPT-95459 Level 3 Detention 16:04:10 CDT CPT-28211 Level 3 Detention 19:38:15 RECORDS COORDINATOR CPT-27798 Level 3 Detention 19:28:48 RECORDS COORDINATOR CPT-24353 Level 3 Detention 18:02:20 RECORDS COORDINATOR CPT-04166 Level 3 Detention 15:02:14 RECORDS COORDINATOR CPT-91935 Level 3 Detention 12:25:37 CDT CPT-34000 Level 3 Detention 12:48:39 CDT CPT-11939 Level 3 Detention 17:39:14 CDT CPT-70995 Level 3 Detention 13:32:58 CDT CPT-62330 Level 3 Detention 17:43:43 CDT CPT-14437 Level 3 Detention 12:03:33 RECORDS COORDINATOR CPT-70426 Level 3 Detention 18:47:28 RECORDS COORDINATOR CPT-77327 Level 3 Detention 17:35:26 RECORDS COORDINATOR CPT-94333 Level 3 Detention 18:44:49 RECORDS COORDINATOR CPT-80717 Level 3 Detention 18:17:33 CDT CPT-00158 Level 3 Detention 09:25:33 CDT CPT-30310 Level 3 Detention 19:11:57 CDT CPT-58986 Level 3 Detention 09:25:52 CDT CPT-22216 Level 3 Detention 14:23:59 CDT CPT-03231 Level 3 Detention 12:09:43 CDT CPT-61046 Level 3 Detention 09:37:40 CDT CPT-22454 Level 3 Detention 18:23:02 CDT CPT-08913 Level 3 Detention 14:09:06 CDT CPT-43743 Level 3 Detention 12:43:27 RECORDS COORDINATOR CPT-94948 Postop F/U Visit 14:10:15 RECORDS COORDINATOR CPT-04001 [facility] 17:07:14 RECORDS COORDINATOR CPT-12367 Level 3 Detention 16:14:37 RECORDS COORDINATOR CPT-26546 Port a cath flush 11:47:42 CDT CPT-69742 Port a cath flush 08:29:49 CDT CPT-OV Office Visit 14:27:58 RECORDS COORDINATOR
--- OUTSIDE RECORDS SUMMARY | 2016-08-07 11:27 | XMS REPORT | Clinical Summary ---
Author Author Admin, KARLAE Organization [facility] Address Unknown Phone Unavailable Allergies, Adverse Reactions, Alerts Allergy Name Reaction Description Start Date Severity Status Provider PENICILLIN Critical Active Kings[place]jaida Giles RMA Conditions or Problems Problem Name 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, CS ASSOCIATE V58.69 Resolved Jonel Hemphill MD Long-term (current) [...] of unspecified type of vessel, [place] or graft FH DIABETES V18.0 Resolved Jonel [...] of unspecified type of vessel, [place] or graft CONSTIPATION 564.00 Resolved Jonel Hemphill [...] abscess of leg, except foot 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 USE, CS ASSOCIATE ICD-V58.69 Inactive Jonel Hemphill MD DIABETES, TYPE [...] ORAL TABS 1 daily for gout. FEBUXOSTAT 13418537513 Active Marleni Romero Active HYDROCODONE-ACETAMINOPHEN 7.5-325 MG TABS 1 TAB PO Q 6 HRS PRN HYDROCODONE-ACETAMINOPHEN 99542359824 Active Jonel Hemphill MD Active METFORMIN HCL 1000 MG TABS 1 tablet by mouth twice daily METFORMIN HCL 16057617689 Active Marleni Romero Active FENTANYL 12 MCG/HR PT72 Apply to clean, dry skin and change every 72 hours FENTANYL 45338940780 Active Mattie Gates APRN Active KLOR-CON 20 MEQ ORAL PACK 1 BY MOUTH DAILY POTASSIUM CHLORIDE 00078270335 Active Marleni Romero Active A+D FIRST AID EXT OINT APPLY OINTMENT AND RUFINO WRAPS TO LOWER EXTEREMETIES DAILY SKIN PROTECTANTS, MISC. 21841975251 Active Jonel Hemphill MD Active NYSTATIN 931539 UNIT/GM EXT OINT APPLY PRN TID TO GAULDING/RASH IN ABDOMINAL FOLDS NYSTATIN 51099444437 Active Jonel Hemphill MD Active ATIVAN 0.5 MG TABS Take 1 tablet 2x daily PRN LORAZEPAM 57686281936 Active Jonel Hemphill MD Active GABAPENTIN 400 MG ORAL CAPS 1 TAB BY MOUTH THREE TIMES DAILY GABAPENTIN 02655862308 Active Jonel Hemphill MD Active GABAPENTIN 300 MG CAPS 1 CAP PO TID GABAPENTIN 19786997786 No Longer Active Jonel Hemphill MD Active DILANTIN 100 MG ORAL CAPS 1 THREE TIMES DAILY FOR SEIZURES PHENYTOIN SODIUM EXTENDED 39062345950 Active Marleni Romero Active CPAP APPLY AT HS CPAP Active Jonel Hemphill MD Active METOPROLOL TARTRATE 50 MG ORAL TABS 1 TAB BY MOUTH TWICE DAILY METOPROLOL TARTRATE 77808597048 Active Jonel Hemphill MD Active LISINOPRIL 40 MG TABS 1 tablet by mouth twice daily, for blood pressure 03/31 LISINOPRIL 37746784845 Active Jonel Hemphill MD Active BUPROPION HCL ER (SR) 150 MG [id number] 1 twice a day for depression BUPROPION HCL 99252012058 Active Jonel Hemphill MD Active MULTIVITAMINS CAPS 1 DAILY MULTIPLE VITAMIN 23347007508 Active Jonel Hemphill MD Active ZYLOPRIM 300 MG TAB 1 BY MOUTH DAILY ALLOPURINOL 80248154122 Active Jonel Hemphill MD Active HYDROCODONE-ACETAMINOPHEN 7.5-325 MG TABS 1 q 6 hrs prn HYDROCODONE-ACETAMINOPHEN 33629814913 No Longer Active Jonel Hemphill MD Active DILANTIN 100 MG CAPS 3 cap tid PHENYTOIN SODIUM EXTENDED 75895989958 No Longer Active Jonel Hemphill MD Active BUDEPRION SR 150 MG [id number] 1 bid BUPROPION HCL 75819923201 No Longer Active Jonel Hemphill MD Active ALLOPURINOL 300 MG TABS 1 qd ALLOPURINOL 99475522781 No Longer Active Jonel Hemphill MD Active COZAAR 100 MG TABS 1 qd LOSARTAN POTASSIUM 49901859303 No Longer Active Jonel Hemphill MD Active CVS VITAMIN C 500 MG TABS 1 po daily ASCORBIC ACID 45175547429 No Longer Active Jonel Hemphill MD Active MIRALAX POWD 17 gms in 4 oz water or juice daily POLYETHYLENE GLYCOL 3350 96112324956 No Longer Active Jonel Hemphill MD Active POTASSIUM CHLORIDE CHELA ER 20 MEQ CR-TABS 1 tab PO daily POTASSIUM CHLORIDE CHELA CR 14397205727 No Longer Active Jonel Hemphill MD Active AMBIEN 10 MG TAB 1 tab by mouth at bedtime as needed for sleep ZOLPIDEM TARTRATE 84318540735 No Longer Active Jonel Hemphill MD Active SULFAMETHOXAZOLE-TMP DS 800-160 MG TABS 1 TAB PO BID SULFAMETHOXAZOLE-TRIMETHOPRIM 17707374203 No Longer Active Jonel Hemphill MD Active NORCO 5-325 MG TABS 1-2 TAB Q 6 HRS PRN HYDROCODONE- ACETAMINOPHEN 86669381303 Active Jonel Hemphill MD Active LEVEMIR 100 UNIT/ML SOLN 5 units sub-q at bedtime INSULIN DETEMIR 77432630111 No Longer Active Tova Perez Active MOBIC 15 MG TABS 1 tab PO daily for arthritis pain MELOXICAM 54761404176 No Longer Active Tova Perez Active GLUCAGEN 1 MG SOLR INJECT 1MG IM IF BS LESS THAN 60 & RES. IS UNABLE TO SWALLOW GLUCAGON HCL (RDNA) 29886144420 No Longer Active Tova Perez Active CVS MILK OF MAGNESIA 1200 MG/15ML SUSP 30 ml daily for constipation MAGNESIUM HYDROXIDE 59856113765 No Longer Active Tova Perez Active IMDUR 120 MG [id number] 1 qd ISOSORBIDE MONONITRATE 71117706771 No Longer Active Tova Perez Active PHENYTOIN 50 MG CHEW 1 TAB PO BID PHENYTOIN 11004355570 Active Tova Perez Active MECLIZINE HCL 25 MG CHEW TAB 1 four times a day as needed for dizziness 02/21 MECLIZINE HCL 97035922798 Active Tova Perez Active NEURONTIN 400 MG CAPS Take one by mouth 3 times daily, morning, afternoon and evening.] GABAPENTIN 49754620592 No Longer Active Tova Perez Active ANTIVERT 25 MG TABS 1 q 6 hrs prn MECLIZINE HCL 74974484145 No Longer Active Jonel Hemphill MD Active CLONIDINE HCL 0.2 MG TABS 1 q 8 hrs as needed -greater than 160-htn CLONIDINE HCL 87607328848 No Longer Active Jonel Hemphill MD Active AMBIEN 10 MG TABS 1 q hs prn ZOLPIDEM TARTRATE 04977702448 No Longer Active Jonel Hemphill MD Active GNP THERAPEUTIC-M TABS 1 qd MULTIPLE VITAMINS- MINERALS 65501602117 No Longer Active Jonel eHmphill MD Active METOPROLOL TARTRATE 50 MG TABS 1 bid METOPROLOL TARTRATE 01017639825 No Longer Active Jonel Hemphill MD Active METFORMIN HCL 500 MG TABS 1 bod with food METFORMIN HCL 47529590826 No Longer Active Jonel Hemphill MD Active LISINOPRIL 40 MG TABS 1 qd LISINOPRIL 72412366847 No Longer Active Jonel Hemphill MD Active HYDROCHLOROTHIAZIDE 25 MG TABS 1 qd HYDROCHLOROTHIAZIDE 40775871096 No Longer Active Jonel Hemphill MD Active DURAGESIC-25 25 MCG/HR PT72 place 1 patch on the skin q72hrs for pain FENTANYL 52006375301 No Longer Active Jonel Hemphill MD Active FENTANYL 75 MCG/HR PT72 place 1 patch on skin q72hrs fr pain 2012 FENTANYL 21453942338 No Longer Active Jonel Hemphill MD Active LASIX 20 MG TABS 1 tab PO q morning FUROSEMIDE 48426434049 Active Jonel Hemphill MD Active FUROSEMIDE 40 MG TABS 1 q am FUROSEMIDE 79149984149 No Longer Active Jonel Hemphill MD Active HEPARIN (PORCINE) LOCK FLUSH 100 UNIT/ML SOLN Flush port a cath monthly every three week on with Heparin and NS HEPARIN LOCK FLUSH 64082561882 Active Jonel Hemphill MD Active FENTANYL 100 MCG/HR PT72 Apply every 3 days FENTANYL 46915477880 Active Jonel Hemphill MD Active FENTANYL 25 MCG/HR PT72 Apply to clean skin and change every 72 hours. 07/03 FENTANYL 56824337164 No Longer Active Jonel Hemphill MD Active FENTANYL 50 MCG/HR PT72 place 1 patch on skin q72 hours FENTANYL 52370323355 No Longer Active Mayco Shah APRN Active CELEXA 20 MG TABS Take 1 tablet 1x daily CITALOPRAM HYDROBROMIDE 80409466619 Active Jonel Hemphill MD Active DURAGESIC-12 12 MCG/HR PT72 APPLY PATCH TO SKIN AND CHANGE EVERY 72 HOURS, ROTATE SITES FENTANYL 93328159033 No Longer Active Fozia HERNANDEZ Active FUROSEMIDE 20 MG TABS 1 qd FUROSEMIDE 16397340438 No Longer Active Mahogany Bolivar Active ADULT ASPIRIN EC LOW STRENGTH 81 MG TBEC 1 qd ASPIRIN 15043883039 Active MARY Perez Active FUROSEMIDE 20 MG TABS 1 qd FUROSEMIDE 20 MG TABS 966810 FUROSEMIDE Inactive DURAGESIC-12 12 MCG/HR PT72 APPLY PATCH TO SKIN AND CHANGE EVERY 72 HOURS, ROTATE SITES DURAGESIC-12 12 MCG/HR PT72 888824 FENTANYL Inactive FENTANYL 50 MCG/HR PT72 place 1 patch on skin q72 hours FENTANYL 50 MCG/HR PT72 237191 FENTANYL Inactive FUROSEMIDE 40 MG TABS 1 q am FUROSEMIDE 40 MG TABS 836435 FUROSEMIDE Inactive FENTANYL 75 MCG/HR PT72 place 1 patch on skin q72hrs fr pain 2012 FENTANYL 75 MCG/HR PT72 344711 FENTANYL Inactive DURAGESIC-25 25 MCG/HR PT72 place 1 patch on the skin q72hrs for pain DURAGESIC-25 25 MCG/HR PT72 125020 FENTANYL Inactive HYDROCHLOROTHIAZIDE 25 MG TABS 1 qd HYDROCHLOROTHIAZIDE 25 MG TABS 881223 HYDROCHLOROTHIAZIDE Inactive LISINOPRIL 40 MG TABS 1 qd LISINOPRIL 40 MG TABS 161722 LISINOPRIL Inactive METFORMIN HCL 500 MG TABS 1 bod with food METFORMIN HCL 500 MG TABS 159080 METFORMIN HCL Inactive METOPROLOL TARTRATE 50 MG TABS 1 bid METOPROLOL TARTRATE 50 MG TABS 067287 METOPROLOL TARTRATE Inactive GNP THERAPEUTIC-M TABS 1 qd GNP THERAPEUTIC-M TABS MULTIPLE VITAMINS-MINERALS Inactive AMBIEN 10 MG TABS 1 q hs prn AMBIEN 10 MG TABS 530268 ZOLPIDEM TARTRATE Inactive CLONIDINE HCL 0.2 MG TABS 1 q 8 hrs as needed -greater than 160-htn CLONIDINE HCL 0.2 MG TABS 707934 CLONIDINE HCL Inactive ANTIVERT 25 MG TABS 1 q 6 hrs prn ANTIVERT 25 MG TABS MECLIZINE HCL Inactive NEURONTIN 400 MG CAPS Take one by mouth 3 times daily, morning, afternoon and evening.] NEURONTIN 400 MG CAPS 657695 GABAPENTIN Inactive IMDUR 120 MG [id number] 1 qd IMDUR 120 MG [id number] ISOSORBIDE MONONITRATE Inactive CVS MILK OF MAGNESIA [...] for arthritis pain MOBIC 15 MG TABS 637763 MELOXICAM Inactive LEVEMIR 100 UNIT/ML SOLN 5 units sub-q at bedtime LEVEMIR 100 UNIT/ML SOLN INSULIN DETEMIR Inactive SULFAMETHOXAZOLE-TMP DS 800-160 MG TABS 1 TAB PO BID SULFAMETHOXAZOLE-TMP DS 800-160 MG TABS 244469 SULFAMETHOXAZOLE-TRIMETHOPRIM Inactive AMBIEN 10 MG TAB 1 tab by mouth at bedtime as needed for sleep AMBIEN 10 MG TAB 491099 ZOLPIDEM TARTRATE Inactive POTASSIUM CHLORIDE CHELA ER 20 MEQ CR-TABS 1 tab PO daily POTASSIUM CHLORIDE CHELA ER 20 MEQ CR-TABS POTASSIUM CHLORIDE CHELA CR Inactive MIRALAX POWD 17 gms in 4 oz water or juice daily MIRALAX POWD 946841 POLYETHYLENE GLYCOL 3350 Inactive CVS VITAMIN C 500 MG TABS 1 po daily CVS VITAMIN C 500 MG TABS 845254 ASCORBIC ACID Inactive COZAAR 100 MG TABS 1 qd COZAAR 100 MG TABS 332113 LOSARTAN POTASSIUM Inactive ALLOPURINOL 300 MG TABS 1 qd ALLOPURINOL 300 MG TABS 546531 ALLOPURINOL Inactive BUDEPRION SR 150 MG [id number] 1 bid BUDEPRION SR 150 MG [id number] BUPROPION HCL Inactive DILANTIN 100 MG CAPS 3 cap tid DILANTIN 100 MG CAPS 730359 PHENYTOIN SODIUM EXTENDED Inactive HYDROCODONE-ACETAMINOPHEN 7.5-325 MG TABS 1 q 6 hrs prn HYDROCODONE-ACETAMINOPHEN 7.5-325 MG TABS 729021 HYDROCODONE- ACETAMINOPHEN Inactive GABAPENTIN 300 MG CAPS 1 CAP PO TID GABAPENTIN 300 MG CAPS 800094 GABAPENTIN Inactive FENTANYL 25 MCG/HR PT72 Apply to clean skin and change every 72 hours. 07/03 FENTANYL 25 MCG/HR PT72 369403 FENTANYL Inactive Advance Directives Directive Description Start [...] 4.3-6.0 Encounters Code Encounter Date Provider Facility CPT-74444 Level 3 Est. Patient 18:04:07 CDT Jonel Hemphill MD [facility] CPT-72733 Level 3 Est. Patient 17:18:03 CDT Jonel Hemphill MD [facility] CPT-95997 Level 3 Est. Patient 21:58:03 COTTON TIER Jonel Hemphill MD [facility] CPT-54166 Level 4 Est. Patient 18:03:14 CDT Jonel Hemphill MD [facility]-58661 Level 4 Est. Patient 13:24:53 CDT Jonel Hemphill MD [facility]-19921 Level 4 Est. Patient 09:15:44 CDT Jonel Hemphill MD [facility]-53153 Level 4 Est. Patient 19:16:01 CDT Jonel Hemphill MD [facility]-31387 Level 4 Est. Patient 11:25:16 CDT Jonel Hemphill MD [facility]-79029 Level 4 Est. Patient 09:00:40 CDT Jonel Hemphill MD [facility]-61037 Level 4 Est. Patient 14:53:58 CDT Jonel Hemphill MD [facility] CPT-58093 Level 4 Est. Patient 22:59:01 CDT Jonel Hemphill MD [facility]-29299 Level 4 Est. Patient 09:29:57 CDT Jonel Hemphill MD [facility]-88405 Level 4 Est. Patient 12:35:53 COTTON TIER Jonel Hemphill MD [facility]-30300 Level 4 Est. Patient 22:36:09 COTTON TIER Jonel Hemphill MD [facility]-67506 Level 2 Est. Patient 15:14:15 COTTON TIER Mayco Shah APRN [facility] CPT-58074 Level 4 Est. Patient 10:36:22 COTTON TIER Jonel Hemphill MD [facility] CPT-44971 Level 4 Est. Patient 22:01:13 COTTON TIER Jonel Hemphill MD [facility]-29178 Level 3 Est. Patient 21:50:37 COTTON TIER Jonel Hemphill MD [facility] CPT-61889 Level 4 Est. Patient 15:02:43 CDT Rubin Pierre MD [facility] CPT-96359 Level 4 Est. Patient 14:27:35 CDT Jonel Hemphill MD [facility]-26110 Level 4 Est. Patient 12:41:17 CDT Jonel Hemphill MD [facility]-20800 Level 4 Est. Patient 16:18:55 CDT Jonel Hemphill MD [facility]-80286 Level 4 Est. Patient 17:58:05 CDT Jonel Hemphill MD [facility]-65801 Level 4 Est. Patient 22:10:06 CDT Jonel Hemphill MD [facility]-81810 Level 4 Est. Patient 13:22:09 CDT Jonel Hemphill MD [facility]-38748 Level 4 Est. Patient 22:52:17 COTTON TIER Jonel Hemphill MD [facility] CPT-94768 Level 3 Est. Patient 22:34:10 COTTON TIER Jonel Hemphill MD [facility]-79493 Level 4 Est. Patient 07:49:20 COTTON TIER Jonel Hemphill MD [facility] CPT-29906 Level 3 Est. Patient 08:28:27 COTTON TIER Jonel Hemphill MD [facility] Procedures Code Procedure Name Date Entry Date Standard Description CPT-68438 Level 3 Fdc 17:42:11 CDT CPT-08024 Level 3 Fdc 16:04:10 CDT CPT-15219 Level 3 Fdc 19:38:15 COTTON TIER CPT-26221 Level 3 Fdc 19:28:48 COTTON TIER CPT-10715 Level 3 Fdc 18:02:20 COTTON TIER CPT-57019 Level 3 Fdc 15:02:14 COTTON TIER CPT-19394 Level 3 Fdc 12:25:37 CDT CPT-96701 Level 3 Fdc 12:48:39 CDT CPT-12102 Level 3 Fdc 17:39:14 CDT CPT-23253 Level 3 Fdc 13:32:58 CDT CPT-07048 Level 3 Fdc 17:43:43 CDT CPT-49635 Level 3 Fdc 12:03:33 COTTON TIER CPT-63629 Level 3 Fdc 18:47:28 COTTON TIER CPT-58529 Level 3 Fdc 17:35:26 COTTON TIER CPT-19136 Level 3 Fdc 18:44:49 COTTON TIER CPT-39140 Level 3 Fdc 18:17:33 CDT CPT-68210 Level 3 Fdc 09:25:33 CDT CPT-26491 Level 3 Fdc 19:11:57 CDT CPT-56750 Level 3 Fdc 09:25:52 CDT CPT-14968 Level 3 Fdc 14:23:59 CDT CPT-36798 Level 3 Fdc 12:09:43 CDT CPT-15610 Level 3 Fdc 09:37:40 CDT CPT-87828 Level 3 Fdc 18:23:02 CDT CPT-43087 Level 3 Fdc 14:09:06 CDT CPT-44416 Level 3 Fdc 12:43:27 COTTON TIER CPT-84254 Postop F/U Visit 14:10:15 COTTON TIER CPT-87489 [facility] 17:07:14 COTTON TIER CPT-32266 Level 3 Fdc 16:14:37 COTTON TIER CPT-16861 Port a cath flush 11:47:42 CDT CPT-75355 Port a cath flush 08:29:49 CDT CPT-OV Office Visit 14:27:58 COTTON TIER
--- OUTSIDE RECORDS SUMMARY | 2016-08-07 11:29 | XMS REPORT | Clinical Summary ---
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 Jonel Hemphill MD Long-term [...] Coronary atherosclerosis of unspecified type of vessel, [place] or graft FH DIABETES V18.0 Resolved Jonel [...] Coronary atherosclerosis of unspecified type of vessel, [place] or graft CONSTIPATION 564.00 Resolved Jonel Hemphill [...] TYPE 2 ICD-250.00 Inactive Jonel Hemphill MD DIABETES ICD-V18.0 Inactive [...] LUM[place]AGO ICD-724.2 Inactive Jonel Hemphill MD 2013 CORONARY HEART DISEASE ICD-414.00 Malina Hemphill MD 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 USE, [facility] ICD-V58.69 Inactive Jonel Hemphill MD SHOULDER STRAIN, [...] skin and change every 72 hours FENTANYL 03991672021 Active Jonel Hemphill MD Active MIRALAX POWD 17 gms in 4 oz water or juice daily POLYETHYLENE GLYCOL 3350 86452439333 Active Jonel Hemphill MD Active [facility] MELATONIN 3 MG ORAL TABS 2 tabs at hs MELATONIN 40737469793 Active Jonel Hemphill MD Active MAGNESIUM GLUCONATE 500 MG ORAL TABS 1 tab twice daily MAGNESIUM GLUCONATE 37865640275 Active Jonel Hemphill MD Active OMEPRAZOLE 20 MG CPDR 1 tablet by mouth daily OMEPRAZOLE 98777614812 Active Jonel Hemphill MD Active DIGOXIN 125 MCG ORAL TABS 1 daily DIGOXIN 93906658515 Active Jonel Hemphill MD Active DILTIAZEM CD 240 MG ORAL [id number] 1 daily DILTIAZEM HCL COATED BEADS 07099398777 Active Jonel Hemphill MD Active NOVOLOG 100 UNIT/ML SC SOLN 70-140=0U 141-180=2 U 181-220=4U 221-260=6U 261- 300=8U 301-340=10U 210=818=26D 381-400=14U INSULIN ASPART 23244333013 Active Jonel Hemphill MD Active ACETAMINOPHEN 325 MG ORAL TABS 1 tab by mouth every 4 hours as needed ACETAMINOPHEN 88689586172 Active Jonel Hemphill MD Active FENTANYL 12 MCG/HR PT72 Apply to clean, dry skin and change every 72 hours FENTANYL 06582332823 No Longer Active Jonel Hemphill MD Active PHENYTOIN 50 MG CHEW 1 TAB PO BID PHENYTOIN 69301838681 No Longer Active Jonel Hemphill MD Active NORCO 5-325 MG TABS 1-2 TAB Q 6 HRS PRN HYDROCODONE- ACETAMINOPHEN 52891386890 No Longer Active Jonel Hemphill MD Active MULTIVITAMINS CAPS 1 DAILY MULTIPLE VITAMIN 11250600343 No Longer Active Jonel Hemphill MD Active BUPROPION HCL ER (SR) 150 MG [id number] 1 twice a day for depression BUPROPION HCL 12402358443 No Longer Active Jonel Hemphill MD Active LISINOPRIL 20 MG TABS 1 tablet by mouth daily LISINOPRIL 46501729678 Active Jonel Hemphill MD Active ULORIC 40 MG ORAL TABS 1 daily for gout. FEBUXOSTAT 08309018602 No Longer Active Jonel Hemphill MD Active CELEXA 20 MG TABS 1 tablet by mouth daily CITALOPRAM HYDROBROMIDE 79796346464 Active Marleni Raida Active ZOFRAN 4 MG TABS 1 po q6hr PRN Nausea ONDANSETRON HCL 75646361850 Active Jonel Hemphill MD Active XARELTO 20 MG ORAL TABS 1 daily RIVAROXABAN 12255137663 Active Jonel Hemphill MD Active JANUVIA 100 MG ORAL TABS 2 tabs daily SITAGLIPTIN PHOSPHATE 39258355106 Active Jonel Hemphill MD Active CELEXA 20 MG TABS Take 1 tablet 1x daily CITALOPRAM HYDROBROMIDE 09121556461 No Longer Active Jonel Hemphill MD Active ATIVAN 0.5 MG TABS Take 1 tablet 2x daily PRN LORAZEPAM 92428451408 No Longer Active Jonel Hemphill MD Active FUROSEMIDE 80 MG ORAL TABS 1 daily FUROSEMIDE 65992879677 Active Jonel Hemphill MD Active MECLIZINE HCL 25 MG CHEW TAB 1 four times a day as needed for dizziness 02/21 MECLIZINE HCL 18948863864 No Longer Active Jonel Hemphill MD Active ZYLOPRIM 300 MG TAB 1 BY MOUTH DAILY ALLOPURINOL 85753744356 No Longer Active Jonel Hemphill MD Active METOPROLOL TARTRATE 50 MG ORAL TABS 1 TAB BY MOUTH TWICE DAILY METOPROLOL TARTRATE 39256287001 No Longer Active Jonel Hemphill MD Active GABAPENTIN 400 MG ORAL CAPS 1 TAB BY MOUTH THREE TIMES DAILY 2015 GABAPENTIN 81425260922 No Longer Active Jonel Hemphill MD Active HYDROCODONE-ACETAMINOPHEN 7.5-325 MG TABS 1 TAB PO Q 6 HRS PRN HYDROCODONE-ACETAMINOPHEN 23854695081 Active Jonel Hemphill MD Active METFORMIN HCL 1000 MG TABS 1 tablet by mouth twice daily METFORMIN HCL 93572430606 Active Marleni Romero Active KLOR-CON 20 MEQ ORAL PACK 1 BY MOUTH DAILY POTASSIUM CHLORIDE 53571906503 Active Marleni Romero Active A+D FIRST AID EXT OINT APPLY OINTMENT AND RUFINO WRAPS TO LOWER EXTEREMETIES DAILY SKIN PROTECTANTS, MISC. 32378464211 Active Jonel Hemphill MD Active NYSTATIN 716826 UNIT/GM EXT OINT APPLY PRN TID TO GAULDING/RASH IN ABDOMINAL FOLDS NYSTATIN 74224565865 Active Jonel Hemphill MD Active GABAPENTIN 300 MG CAPS 1 CAP PO TID GABAPENTIN 14652361588 No Longer Active Jonel Hemphill MD Active DILANTIN 100 MG ORAL CAPS 1 THREE TIMES DAILY FOR SEIZURES PHENYTOIN SODIUM EXTENDED 91038858969 Active Marleni Romero Active CPAP APPLY AT HS CPAP Active Jonel Hemphill MD Active HYDROCODONE-ACETAMINOPHEN 7.5-325 MG TABS 1 q 6 hrs prn HYDROCODONE-ACETAMINOPHEN 10477909072 No Longer Active Jonel Hemphill MD Active DILANTIN 100 MG CAPS 3 cap tid PHENYTOIN SODIUM EXTENDED 84679340988 No Longer Active Jonel Hemphill MD Active BUDEPRION SR 150 MG [id number] 1 bid BUPROPION HCL 54432010963 No Longer Active Jonel Hemphill MD Active ALLOPURINOL 300 MG TABS 1 qd ALLOPURINOL 64553867432 No Longer Active Jonel Hemphill MD Active COZAAR 100 MG TABS 1 qd LOSARTAN POTASSIUM 62156770259 No Longer Active Jonel Hemphill MD Active CVS VITAMIN C 500 MG TABS 1 po daily ASCORBIC ACID 10658347429 No Longer Active Jonle Hemphill MD Active MIRALAX POWD 17 gms in 4 oz water or juice daily POLYETHYLENE GLYCOL 3350 18328060990 No Longer Active Jonel Hemphill MD Active POTASSIUM CHLORIDE CHELA ER 20 MEQ CR-TABS 1 tab PO daily POTASSIUM CHLORIDE CHELA CR 63094210582 No Longer Active Jonel Hemphill MD Active AMBIEN 10 MG TAB 1 tab by mouth at bedtime as needed for sleep ZOLPIDEM TARTRATE 02174938181 No Longer Active Jonel Hemphill MD Active SULFAMETHOXAZOLE-TMP DS 800-160 MG TABS 1 TAB PO BID SULFAMETHOXAZOLE-TRIMETHOPRIM 51401401066 No Longer Active Jonel Hemphill MD Active LEVEMIR 100 UNIT/ML SOLN 5 units sub-q at bedtime INSULIN DETEMIR 47730630880 No Longer Active Tova Perez Active MOBIC 15 MG TABS 1 tab PO daily for arthritis pain MELOXICAM 86338973156 No Longer Active Tova Perez Active GLUCAGEN 1 MG SOLR INJECT 1MG IM IF BS LESS THAN 60 & RES. IS UNABLE TO SWALLOW GLUCAGON HCL (RDNA) 84124560548 No Longer Active Tova Perez Active [facility]S MILK OF MAGNESIA 1200 MG/15ML SUSP 30 ml daily for constipation MAGNESIUM HYDROXIDE 62052820397 No Longer Active Tova Perez Active IMDUR 120 MG [id number] 1 qd ISOSORBIDE MONONITRATE 56614640310 No Longer Active Tova Perez Active NEURONTIN 400 MG CAPS Take one by mouth 3 times daily, morning, afternoon and evening.] GABAPENTIN 09500537748 No Longer Active Tova Perez Active ANTIVERT 25 MG TABS 1 q 6 hrs prn MECLIZINE HCL 80859811941 No Longer Active Jonel Hemphill MD Active CLONIDINE HCL 0.2 MG TABS 1 q 8 hrs as needed -greater than 160-htn CLONIDINE HCL 16208471616 No Longer Active Jonel Hemphill MD Active AMBIEN 10 MG TABS 1 q hs prn ZOLPIDEM TARTRATE 98396420876 No Longer Active Jonel Hemphill MD Active GNP THERAPEUTIC-M TABS 1 qd MULTIPLE VITAMINS- MINERALS 80140932212 No Longer Active Jonel Hemphill MD Active METOPROLOL TARTRATE 50 MG TABS 1 bid METOPROLOL TARTRATE 62775077438 No Longer Active Jonel Hemphill MD Active METFORMIN HCL 500 MG TABS 1 bod with food METFORMIN HCL 81645534511 No Longer Active Jonel Hemphill MD Active LISINOPRIL 40 MG TABS 1 qd LISINOPRIL 86550092923 No Longer Active Jonel Hemphill MD Active HYDROCHLOROTHIAZIDE 25 MG TABS 1 qd HYDROCHLOROTHIAZIDE 53751199421 No Longer Active Jonel Hemphill MD Active DURAGESIC-25 25 MCG/HR PT72 place 1 patch on the skin q72hrs for pain FENTANYL 10683368445 No Longer Active Jonel Hemphill MD Active FENTANYL 75 MCG/HR PT72 place 1 patch on skin q72hrs fr pain 2012 FENTANYL 30096413187 No Longer Active Jonel Hemphill MD Active FUROSEMIDE 40 MG TABS 1 q am FUROSEMIDE 99094528185 No Longer Active Jonel Hemphill MD Active HEPARIN (PORCINE) LOCK FLUSH 100 UNIT/ML SOLN Flush port a cath monthly every three week on with Heparin and NS HEPARIN LOCK FLUSH 99169520834 Active Jonel Hemphill MD Active FENTANYL 100 MCG/HR PT72 Apply every 3 days FENTANYL 93504912876 Active Jonel Hemphill MD Active FENTANYL 25 MCG/HR PT72 Apply to clean skin and change every 72 hours. 07/03 FENTANYL 11349080276 No Longer Active Jonel Hemphill MD Active FENTANYL 50 MCG/HR PT72 place 1 patch on skin q72 hours FENTANYL 55092829537 No Longer Active Mayco Shah APRN Active DURAGESIC-12 12 MCG/HR PT72 APPLY PATCH TO SKIN AND CHANGE EVERY 72 HOURS, ROTATE SITES FENTANYL 19246957761 No Longer Active Fozia HERNANDEZ Active FUROSEMIDE 20 MG TABS 1 qd FUROSEMIDE 62768573153 No Longer Active Mahogany [place] Active ADULT ASPIRIN EC LOW STRENGTH 81 MG TBEC 1 qd ASPIRIN 79167874262 Active MARY Perez Active FUROSEMIDE 20 MG TABS 1 qd FUROSEMIDE 20 MG TABS 974958 FUROSEMIDE Inactive DURAGESIC-12 12 MCG/HR PT72 APPLY PATCH TO SKIN AND CHANGE EVERY 72 HOURS, ROTATE SITES DURAGESIC-12 12 MCG/HR PT72 617967 FENTANYL Inactive FENTANYL 50 MCG/HR PT72 place 1 patch on skin q72 hours FENTANYL 50 MCG/HR PT72 640254 FENTANYL Inactive FUROSEMIDE 40 MG TABS 1 q am FUROSEMIDE 40 MG TABS 580650 FUROSEMIDE Inactive FENTANYL 75 MCG/HR PT72 place 1 patch on skin q72hrs fr pain 2012 FENTANYL 75 MCG/HR PT72 928973 FENTANYL Inactive DURAGESIC-25 25 MCG/HR PT72 place 1 patch on the skin q72hrs for pain DURAGESIC-25 25 MCG/HR PT72 041015 FENTANYL Inactive HYDROCHLOROTHIAZIDE 25 MG TABS 1 qd HYDROCHLOROTHIAZIDE 25 MG TABS 487237 HYDROCHLOROTHIAZIDE Inactive LISINOPRIL 40 MG TABS 1 qd LISINOPRIL 40 MG TABS 826262 LISINOPRIL Inactive METFORMIN HCL 500 MG TABS 1 bod with food METFORMIN HCL 500 MG TABS 368759 METFORMIN HCL Inactive METOPROLOL TARTRATE 50 MG TABS 1 bid METOPROLOL TARTRATE 50 MG TABS 119129 METOPROLOL TARTRATE Inactive GNP THERAPEUTIC-M TABS 1 qd GNP THERAPEUTIC-M TABS MULTIPLE VITAMINS-MINERALS Inactive AMBIEN 10 MG TABS 1 q hs prn AMBIEN 10 MG TABS 404453 ZOLPIDEM TARTRATE Inactive CLONIDINE HCL 0.2 MG TABS 1 q 8 hrs as needed -greater than 160-htn CLONIDINE HCL 0.2 MG TABS 702296 CLONIDINE HCL Inactive ANTIVERT 25 MG TABS 1 q 6 hrs prn ANTIVERT 25 MG TABS MECLIZINE HCL Inactive NEURONTIN 400 MG CAPS Take one by mouth 3 times daily, morning, afternoon and evening.] NEURONTIN 400 MG CAPS 152718 GABAPENTIN Inactive IMDUR 120 MG [id number] 1 qd IMDUR 120 MG [id number] ISOSORBIDE MONONITRATE Inactive [facility] MILK OF MAGNESIA [...] for arthritis pain MOBIC 15 MG TABS 160381 MELOXICAM Inactive LEVEMIR 100 UNIT/ML SOLN 5 units sub-q at bedtime LEVEMIR 100 UNIT/ML SOLN INSULIN DETEMIR Inactive SULFAMETHOXAZOLE-TMP DS 800-160 MG TABS 1 TAB PO BID SULFAMETHOXAZOLE-TMP DS 800-160 MG TABS 332565 SULFAMETHOXAZOLE-TRIMETHOPRIM Inactive AMBIEN 10 MG TAB 1 tab by mouth at bedtime as needed for sleep AMBIEN 10 MG TAB 550353 ZOLPIDEM TARTRATE Inactive POTASSIUM CHLORIDE CHELA ER 20 MEQ CR-TABS 1 tab PO daily POTASSIUM CHLORIDE CHELA ER 20 MEQ CR-TABS POTASSIUM CHLORIDE CHELA CR Inactive MIRALAX POWD 17 gms in 4 oz water or juice daily MIRALAX POWD 226981 POLYETHYLENE GLYCOL 3350 Inactive CVS VITAMIN C 500 MG TABS 1 po daily CVS VITAMIN C 500 MG TABS 494428 ASCORBIC ACID Inactive COZAAR 100 MG TABS 1 qd COZAAR 100 MG TABS 666605 LOSARTAN POTASSIUM Inactive ALLOPURINOL 300 MG TABS 1 qd ALLOPURINOL 300 MG TABS 560324 ALLOPURINOL Inactive BUDEPRION SR 150 MG [id number] 1 bid BUDEPRION SR 150 MG [id number] BUPROPION HCL Inactive DILANTIN 100 MG CAPS 3 cap tid DILANTIN 100 MG CAPS 246297 PHENYTOIN SODIUM EXTENDED Inactive HYDROCODONE-ACETAMINOPHEN 7.5-325 MG TABS 1 q 6 hrs prn HYDROCODONE-ACETAMINOPHEN 7.5-325 MG TABS 928683 HYDROCODONE- ACETAMINOPHEN Inactive GABAPENTIN 300 MG CAPS 1 CAP PO TID GABAPENTIN 300 MG CAPS 613307 GABAPENTIN Inactive GABAPENTIN 400 MG ORAL CAPS 1 TAB BY MOUTH THREE TIMES DAILY 2015 GABAPENTIN 400 MG ORAL CAPS 730970 GABAPENTIN Inactive METOPROLOL TARTRATE 50 MG ORAL TABS 1 TAB BY MOUTH TWICE DAILY METOPROLOL TARTRATE 50 MG ORAL TABS 524440 METOPROLOL TARTRATE Inactive ZYLOPRIM 300 MG TAB 1 BY MOUTH DAILY ZYLOPRIM 300 MG TAB 570856 ALLOPURINOL Inactive MECLIZINE HCL 25 MG CHEW TAB 1 four times a day as needed for dizziness 02/21 MECLIZINE HCL 25 MG CHEW TAB 268739 MECLIZINE HCL Inactive ATIVAN 0.5 MG TABS Take 1 tablet 2x daily PRN ATIVAN 0.5 MG TABS 916386 LORAZEPAM Inactive CELEXA 20 MG TABS Take 1 tablet 1x daily CELEXA 20 MG TABS 360294 CITALOPRAM HYDROBROMIDE Inactive ULORIC 40 MG ORAL TABS 1 daily for gout. ULORIC 40 MG ORAL TABS FEBUXOSTAT Inactive BUPROPION HCL ER (SR) 150 MG [id number] 1 twice a day for depression BUPROPION HCL ER (SR) 150 MG [id number] BUPROPION HCL Inactive MULTIVITAMINS CAPS 1 DAILY MULTIVITAMINS CAPS MULTIPLE VITAMIN Inactive NORCO 5-325 MG TABS 1-2 TAB Q 6 HRS PRN NORCO 5-325 MG TABS 792619 HYDROCODONE-ACETAMINOPHEN Inactive PHENYTOIN 50 MG CHEW 1 TAB PO BID PHENYTOIN 50 MG CHEW 7892414 PHENYTOIN Inactive FENTANYL 12 MCG/HR PT72 Apply to clean, dry skin and change every 72 hours FENTANYL 12 MCG/HR PT72 601893 FENTANYL Inactive FENTANYL 25 MCG/HR PT72 Apply to clean skin and change every 72 hours. 2013/ 05/22 FENTANYL 25 MCG/HR PT72 748208 FENTANYL Inactive Advance Directives Directive Description Start [...] mmol/L Office Visit: NEED DABETIC SHOES - Basic LDL target level 100 mg/dL Office Visit: NEED DABETIC SHOES - Chemistry home glucose monitor utilized Yes cholesterol, target level 200 mg/dL triglyceride, target level 200 mg/dL HDL cholesterol, serum, target level 35 mg/dL Encounters Code Encounter Date Provider Facility CPT-88139 Level 4 Est. Patient 18:47:35 STITCH CLEANER Jonel Hemphill MD [facility] CPT-50249 Level 4 Est. Patient 10:04:48 STITCH CLEANER Jonel Hemphill MD [facility] CPT-76467 Level 3 Est. Patient 19:05:03 CDT Jonel Hemphill MD [facility] CPT-75817 Level 3 Est. Patient 17:30:47 CDT Kevin Link MD [facility] CPT-07768 Level 3 Est. Patient 18:04:07 CDT Jonel Hemphill MD [facility] CPT-81201 Level 3 Est. Patient 17:18:03 CDT Jonel Hemphill MD [facility] CPT-04130 Level 3 Est. Patient 21:58:03 STITCH CLEANER Jonel Hemphill MD [facility] CPT-59116 Level 4 Est. Patient 18:03:14 CDT [facility]el [facility]-00204 Level 4 Est. Patient 13:24:53 CDT [facility] CPT-64292 Level 4 Est. Patient 09:15:44 CDT Jonel Hemphill MD [facility]-54237 Level 4 Est. Patient 19:16:01 CDT Jonel Hemphill MD [facility]-60893 Level 4 Est. Patient 11:25:16 CDT Jonel Hemphill MD [facility] CPT-58067 Level 4 Est. Patient 09:00:40 CDT Jonel Hemphill MD [facility]-29393 Level 4 Est. Patient 14:53:58 CDT Jonel Hemphill MD [facility]-99011 Level 4 Est. Patient 22:59:01 CDT Jonel Hemphill MD [facility]-83426 Level 4 Est. Patient 09:29:57 CDT Jonel Hemphill MD [facility]-58394 Level 4 Est. Patient 12:35:53 STITCH CLEANER Jonel Hemphill MD [facility]-59244 Level 4 Est. Patient 22:36:09 STITCH CLEANER Jonel Hemphill MD [facility]-04742 Level 2 Est. Patient 15:14:15 STITCH CLEANER Mayco Shah APRN [facility] CPT-48484 Level 4 Est. Patient 10:36:22 STITCH CLEANER Jonel Hemphill MD [facility] CPT-49703 Level 4 Est. Patient 22:01:13 STITCH CLEANER Jonel Hemphill MD [facility]-51510 Level 3 Est. Patient 21:50:37 STITCH CLEANER Jonel Hemphill MD [facility] CPT-75713 Level 4 Est. Patient 15:02:43 CDT Rubin Pierre MD [facility] CPT-86085 Level 4 Est. Patient 14:27:35 CDT Jonel Hemphill MD [facility]-12270 Level 4 Est. Patient 12:41:17 CDT Jonel Hemphill MD [facility]-18624 Level 4 Est. Patient 16:18:55 CDT Jonel Hemphill MD [facility]-32032 Level 4 Est. Patient 17:58:05 CDT Jonel Hemphill MD [facility]-54204 Level 4 Est. Patient 22:10:06 CDT Jonel Hemphill MD [facility]-28925 Level 4 Est. Patient 13:22:09 CDT Jonel Hemphill MD [facility]-97668 Level 4 Est. Patient 22:52:17 STITCH CLEANER Jonel Hemphill MD [facility]-69466 Level 3 Est. Patient 22:34:10 STITCH CLEANER Jonel Hemphill MD [facility]-71521 Level 4 Est. Patient 07:49:20 STITCH CLEANER Jonel Hemphill MD [facility] Skilled CPT-46108 Level 3 Est. Patient 08:28:27 STITCH CLEANER Jonel Hemphill MD [facility] Procedures Code Procedure Name Date Entry Date Standard Description CPT-G0438 Initial Annual Wellness Exam 09:32:09 STITCH CLEANER CPT-59933 Level 3 Shelter 17:57:17 STITCH CLEANER CPT-70384 Level 3 Shelter 21:14:15 STITCH CLEANER CPT-05470 Level 3 Shelter 15:38:24 CDT CPT-21266 Level 3 Shelter 08:18:30 CDT CPT-79000 Level 3 Shelter 19:03:14 CDT CPT-26364 Level 3 Shelter 17:42:11 CDT CPT-73078 Level 3 Shelter 16:04:10 CDT CPT-59157 Level 3 Shelter 19:38:15 STITCH CLEANER CPT-38009 Level 3 Shelter 19:28:48 STITCH CLEANER CPT-70785 Level 3 Shelter 18:02:20 STITCH CLEANER CPT-12762 Level 3 Shelter 15:02:14 STITCH CLEANER CPT-42884 Level 3 Shelter 12:25:37 CDT CPT-07858 Level 3 Shelter 12:48:39 CDT CPT-47190 Level 3 Shelter 17:39:14 CDT CPT-64490 Level 3 Shelter 13:32:58 CDT CPT-85398 Level 3 Shelter 17:43:43 CDT CPT-53520 Level 3 Shelter 12:03:33 STITCH CLEANER CPT-83786 Level 3 Shelter 18:47:28 STITCH CLEANER CPT-30844 Level 3 Shelter 17:35:26 STITCH CLEANER CPT-08060 Level 3 Shelter 18:44:49 STITCH CLEANER CPT-06480 Level 3 Shelter 18:17:33 CDT CPT-43653 Level 3 Shelter 09:25:33 CDT CPT-90511 Level 3 Shelter 19:11:57 CDT CPT-75255 Level 3 Shelter 09:25:52 CDT CPT-22536 Level 3 Shelter 14:23:59 CDT CPT-31112 Level 3 Shelter 12:09:43 CDT CPT-59083 Level 3 Shelter 09:37:40 CDT CPT-78985 Level 3 Shelter 18:23:02 CDT CPT-79981 Level 3 Shelter 14:09:06 CDT CPT-75354 Level 3 Shelter 12:43:27 STITCH CLEANER CPT-19391 Postop F/U Visit 14:10:15 STITCH CLEANER CPT-52925 [facility] 17:07:14 STITCH CLEANER CPT-38690 Level 3 Shelter 16:14:37 STITCH CLEANER CPT-49107 Port a cath flush 11:47:42 CDT CPT-01075 Port a cath flush 08:29:49 CDT CPT-OV Office Visit 14:27:58 STITCH CLEANER
--- OUTSIDE RECORDS SUMMARY | 2016-08-07 11:30 | XMS REPORT | Clinical Summary ---
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 V58.69 Resolved Jonel Hemphill MD Long-term (current) [...] Coronary atherosclerosis of unspecified type of vessel, [place] or graft FH DIABETES V18.0 Resolved Jonel [...] Coronary atherosclerosis of unspecified type of vessel, [place] or graft CONSTIPATION 564.00 Resolved Jonel Hemphill [...] Obstructive sleep apnea (adult) (pediatric) 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 USE, SENIOR IT ASSISTANT ICD-V58.69 Inactive Jonel Hemphill MD DIABETES, TYPE [...] water or juice daily POLYETHYLENE GLYCOL 3350 25362099034 Active Jonel Hemphill MD Active [facility]S MELATONIN 3 MG ORAL TABS 2 tabs at hs MELATONIN 61296931420 Active Jonel Hemphill MD Active MAGNESIUM GLUCONATE 500 MG ORAL TABS 1 tab twice daily MAGNESIUM GLUCONATE 60458073252 Active Jonel Hemphill MD Active OMEPRAZOLE 20 MG CPDR 1 tablet by mouth daily OMEPRAZOLE 49063012146 Active Jonel Hemphill MD Active DIGOXIN 125 MCG ORAL TABS 1 daily DIGOXIN 24532031399 Active Jonel Hemphill MD Active DILTIAZEM CD 240 MG ORAL [id number] 1 daily DILTIAZEM HCL COATED [place]ADS 63119786187 Active Jonel Hemphill MD Active NOVOLOG 100 UNIT/ML SC SOLN 70-140=0U 141-180=2 U 181-220=4U 221-260=6U 261- 300=8U 301-340=10U 995=514=30X 381-400=14U INSULIN ASPART 65426101119 Active Jonel Hemphill MD Active ACETAMINOPHEN 325 MG ORAL TABS 1 tab by mouth every 4 hours as needed ACETAMINOPHEN 81416740611 Active Jonel Hemphill MD Active FENTANYL 12 MCG/HR PT72 Apply to clean, dry skin and change every 72 hours FENTANYL 95030572172 No Longer Active Jonel Hemphill MD Active PHENYTOIN 50 MG CHEW 1 TAB PO BID PHENYTOIN 09616863209 No Longer Active Jonel Hemphill MD Active NORCO 5-325 MG TABS 1-2 TAB Q 6 HRS PRN HYDROCODONE- ACETAMINOPHEN 40724801084 No Longer Active Jonel Hemphill MD Active MULTIVITAMINS CAPS 1 DAILY MULTIPLE VITAMIN 29939776419 No Longer Active Jonel Hemphill MD Active BUPROPION HCL ER (SR) 150 MG [id number] 1 twice a day for depression BUPROPION HCL 76349574443 No Longer Active Jonel Hemphill MD Active LISINOPRIL 20 MG TABS 1 tablet by mouth daily LISINOPRIL 30681321105 Active Jonel Hemphill MD Active ULORIC 40 MG ORAL TABS 1 daily for gout. FEBUXOSTAT 82854785079 No Longer Active Jonel Hemphill MD Active CELEXA 20 MG TABS 1 tablet by mouth daily CITALOPRAM HYDROBROMIDE 19521072635 Active Marleni Raida Active ZOFRAN 4 MG TABS 1 po q6hr PRN Nausea ONDANSETRON HCL 74187526321 Active Jonel Hemphill MD Active XARELTO 20 MG ORAL TABS 1 daily RIVAROXABAN 64419048264 Active Jonel Hemphill MD Active JANUVIA 100 MG ORAL TABS 2 tabs daily SITAGLIPTIN PHOSPHATE 77055155133 Active Jonel Hemphill MD Active CELEXA 20 MG TABS Take 1 tablet 1x daily CITALOPRAM HYDROBROMIDE 55398124666 No Longer Active Jonel Hemphill MD Active ATIVAN 0.5 MG TABS Take 1 tablet 2x daily PRN LORAZEPAM 26622517462 No Longer Active Jonel Hemphill MD Active FUROSEMIDE 80 MG ORAL TABS 1 daily FUROSEMIDE 82850960310 Active Jonel Hemphill MD Active MECLIZINE HCL 25 MG CHEW TAB 1 four times a day as needed for dizziness 02/21 MECLIZINE HCL 88249818016 No Longer Active Jonel Hemphill MD Active ZYLOPRIM 300 MG TAB 1 BY MOUTH DAILY ALLOPURINOL 48197894581 No Longer Active Jonel Hemphill MD Active METOPROLOL TARTRATE 50 MG ORAL TABS 1 TAB BY MOUTH TWICE DAILY METOPROLOL TARTRATE 95298250400 No Longer Active Jonel Hemphill MD Active GABAPENTIN 400 MG ORAL CAPS 1 TAB BY MOUTH THREE TIMES DAILY 2015 GABAPENTIN 34782491841 No Longer Active Jonel Hemphill MD Active HYDROCODONE-ACETAMINOPHEN 7.5-325 MG TABS 1 TAB PO Q 6 HRS PRN HYDROCODONE-ACETAMINOPHEN 69472697134 Active Jonel Hemphill MD Active METFORMIN HCL 1000 MG TABS 1 tablet by mouth twice daily METFORMIN HCL 24105387544 Active Marleni Romero Active KLOR-CON 20 MEQ ORAL PACK 1 BY MOUTH DAILY POTASSIUM CHLORIDE 47567506420 Active Marleni Romero Active A+D FIRST AID EXT OINT APPLY OINTMENT AND RUFINO WRAPS TO LOWER EXTEREMETIES DAILY SKIN PROTECTANTS, MISC. 45770594427 Active Jonel Hemphill MD Active NYSTATIN 315231 UNIT/GM EXT OINT APPLY PRN TID TO GAULDING/RASH IN ABDOMINAL FOLDS NYSTATIN 01104576035 Active Jonel Hemphill MD Active GABAPENTIN 300 MG CAPS 1 CAP PO TID GABAPENTIN 38019817736 No Longer Active Jonel Hemphill MD Active DILANTIN 100 MG ORAL CAPS 1 THREE TIMES DAILY FOR SEIZURES PHENYTOIN SODIUM EXTENDED 62890320942 Active Marleni Romero Active CPAP APPLY AT HS CPAP Active Jonel Hemphill MD Active HYDROCODONE-ACETAMINOPHEN 7.5-325 MG TABS 1 q 6 hrs prn HYDROCODONE-ACETAMINOPHEN 05625254618 No Longer Active Jonel Hemphill MD Active DILANTIN 100 MG CAPS 3 cap tid PHENYTOIN SODIUM EXTENDED 71098546907 No Longer Active Jonel Hemphill MD Active BUDEPRION SR 150 MG [id number] 1 bid BUPROPION HCL 60960894883 No Longer Active Jonel Hemphill MD Active ALLOPURINOL 300 MG TABS 1 qd ALLOPURINOL 80164414570 No Longer Active Jonel Hemphill MD Active COZAAR 100 MG TABS 1 qd LOSARTAN POTASSIUM 14182056682 No Longer Active Jonel Hemphill MD Active CVS VITAMIN C 500 MG TABS 1 po daily ASCORBIC ACID 35516606588 No Longer Active Jonel Hemphill MD Active MIRALAX POWD 17 gms in 4 oz water or juice daily POLYETHYLENE GLYCOL 3350 19872792093 No Longer Active Jonel Hemphill MD Active POTASSIUM CHLORIDE CHELA ER 20 MEQ CR-TABS 1 tab PO daily POTASSIUM CHLORIDE CHELA CR 69887271434 No Longer Active Jonel Hemphill MD Active AMBIEN 10 MG TAB 1 tab by mouth at bedtime as needed for sleep ZOLPIDEM TARTRATE 47242276979 No Longer Active Jonel Hemphill MD Active SULFAMETHOXAZOLE-TMP DS 800-160 MG TABS 1 TAB PO BID SULFAMETHOXAZOLE-TRIMETHOPRIM 83130832776 No Longer Active Jonel Hemphill MD Active LEVEMIR 100 UNIT/ML SOLN 5 units sub-q at bedtime INSULIN DETEMIR 71156312919 No Longer Active Tova Perez Active MOBIC 15 MG TABS 1 tab PO daily for arthritis pain MELOXICAM 02676234054 No Longer Active Tova Perez Active GLUCAGEN 1 MG SOLR INJECT 1MG IM IF BS LESS THAN 60 & RES. IS UNABLE TO SWALLOW GLUCAGON HCL (RDNA) 00693053124 No Longer Active Tova Chris Active CVS MILK OF MAGNESIA 1200 MG/15ML SUSP 30 ml daily for constipation MAGNESIUM HYDROXIDE 97434995709 No Longer Active Tova Chris Active IMDUR 120 MG [id number] 1 qd ISOSORBIDE MONONITRATE 45824990202 No Longer Active Tova Chris Active NEURONTIN 400 MG CAPS Take one by mouth 3 times daily, morning, afternoon and evening.] GABAPENTIN 12118059222 No Longer Active Tova Perez Active ANTIVERT 25 MG TABS 1 q 6 hrs prn MECLIZINE HCL 85549590262 No Longer Active Jonel Hemphill MD Active CLONIDINE HCL 0.2 MG TABS 1 q 8 hrs as needed -greater than 160-htn CLONIDINE HCL 61149393011 No Longer Active Jonel Hemphill MD Active AMBIEN 10 MG TABS 1 q hs prn ZOLPIDEM TARTRATE 74648315553 No Longer Active Jonel Hemphill MD Active GNP THERAPEUTIC-M TABS 1 qd MULTIPLE VITAMINS- MINERALS 50653070517 No Longer Active Jonel Hemphill MD Active METOPROLOL TARTRATE 50 MG TABS 1 bid METOPROLOL TARTRATE 02831232998 No Longer Active Jonel Hemphill MD Active METFORMIN HCL 500 MG TABS 1 bod with food METFORMIN HCL 87374030999 No Longer Active Jonel Hemphill MD Active LISINOPRIL 40 MG TABS 1 qd LISINOPRIL 05743160080 No Longer Active Jonel Hemphill MD Active HYDROCHLOROTHIAZIDE 25 MG TABS 1 qd HYDROCHLOROTHIAZIDE 74070904101 No Longer Active Jonel Hemphill MD Active DURAGESIC-25 25 MCG/HR PT72 place 1 patch on the skin q72hrs for pain FENTANYL 20717278972 No Longer Active Jonel Hemphill MD Active FENTANYL 75 MCG/HR PT72 place 1 patch on skin q72hrs fr pain 2012 FENTANYL 47991069643 No Longer Active Jonel Hemphill MD Active FUROSEMIDE 40 MG TABS 1 q am FUROSEMIDE 20041895881 No Longer Active Jonel Hemphill MD Active HEPARIN (PORCINE) LOCK FLUSH 100 UNIT/ML SOLN Flush port a cath monthly every three week on with Heparin and NS HEPARIN LOCK FLUSH 21426469750 Active Jonel Hemphill MD Active FENTANYL 100 MCG/HR PT72 Apply every 3 days FENTANYL 85861140109 Active Jonel Hemphill MD Active FENTANYL 25 MCG/HR PT72 Apply to clean skin and change every 72 hours. 07/03 FENTANYL 17089097076 No Longer Active Jonel Hemphill MD Active FENTANYL 50 MCG/HR PT72 place 1 patch on skin q72 hours FENTANYL 72191549871 No Longer Active Mayco Shah APRN Active DURAGESIC-12 12 MCG/HR PT72 APPLY PATCH TO SKIN AND CHANGE EVERY 72 HOURS, ROTATE SITES FENTANYL 46009622381 No Longer Active Fozia HERNANDEZ Active FUROSEMIDE 20 MG TABS 1 qd FUROSEMIDE 03452323369 No Longer Active [place] Active ADULT ASPIRIN EC LOW STRENGTH 81 MG TBEC 1 qd ASPIRIN 30089574972 Active MARY Perez Active FUROSEMIDE 20 MG TABS 1 qd FUROSEMIDE 20 MG TABS 344456 FUROSEMIDE Inactive DURAGESIC-12 12 MCG/HR PT72 APPLY PATCH TO SKIN AND CHANGE EVERY 72 HOURS, ROTATE SITES DURAGESIC-12 12 MCG/HR PT72 474859 FENTANYL Inactive FENTANYL 50 MCG/HR PT72 place 1 patch on skin q72 hours FENTANYL 50 MCG/HR PT72 612286 FENTANYL Inactive FUROSEMIDE 40 MG TABS 1 q am FUROSEMIDE 40 MG TABS 519052 FUROSEMIDE Inactive FENTANYL 75 MCG/HR PT72 place 1 patch on skin q72hrs fr pain 2012 FENTANYL 75 MCG/HR PT72 700392 FENTANYL Inactive DURAGESIC-25 25 MCG/HR PT72 place 1 patch on the skin q72hrs for pain DURAGESIC-25 25 MCG/HR PT72 941206 FENTANYL Inactive HYDROCHLOROTHIAZIDE 25 MG TABS 1 qd HYDROCHLOROTHIAZIDE 25 MG TABS 876272 HYDROCHLOROTHIAZIDE Inactive LISINOPRIL 40 MG TABS 1 qd LISINOPRIL 40 MG TABS 708267 LISINOPRIL Inactive METFORMIN HCL 500 MG TABS 1 bod with food METFORMIN HCL 500 MG TABS 996282 METFORMIN HCL Inactive METOPROLOL TARTRATE 50 MG TABS 1 bid METOPROLOL TARTRATE 50 MG TABS 074058 METOPROLOL TARTRATE Inactive GNP THERAPEUTIC-M TABS 1 qd GNP THERAPEUTIC-M TABS MULTIPLE VITAMINS-MINERALS Inactive AMBIEN 10 MG TABS 1 q hs prn AMBIEN 10 MG TABS 480410 ZOLPIDEM TARTRATE Inactive CLONIDINE HCL 0.2 MG TABS 1 q 8 hrs as needed -greater than 160-htn CLONIDINE HCL 0.2 MG TABS 772841 CLONIDINE HCL Inactive ANTIVERT 25 MG TABS 1 q 6 hrs prn ANTIVERT 25 MG TABS MECLIZINE HCL Inactive NEURONTIN 400 MG CAPS Take one by mouth 3 times daily, morning, afternoon and evening.] NEURONTIN 400 MG CAPS 447675 GABAPENTIN Inactive IMDUR 120 MG [id number] 1 qd IMDUR 120 MG [id number] ISOSORBIDE MONONITRATE Inactive [facility]S MILK OF MAGNESIA [...] for arthritis pain MOBIC 15 MG TABS 443753 MELOXICAM Inactive LEVEMIR 100 UNIT/ML SOLN 5 units sub-q at bedtime LEVEMIR 100 UNIT/ML SOLN INSULIN DETEMIR Inactive SULFAMETHOXAZOLE-TMP DS 800-160 MG TABS 1 TAB PO BID SULFAMETHOXAZOLE-TMP DS 800-160 MG TABS 687132 SULFAMETHOXAZOLE-TRIMETHOPRIM Inactive AMBIEN 10 MG TAB 1 tab by mouth at bedtime as needed for sleep AMBIEN 10 MG TAB 035536 ZOLPIDEM TARTRATE Inactive POTASSIUM CHLORIDE CHELA ER 20 MEQ CR-TABS 1 tab PO daily POTASSIUM CHLORIDE CHELA ER 20 MEQ CR-TABS POTASSIUM CHLORIDE CHELA CR Inactive MIRALAX POWD 17 gms in 4 oz water or juice daily MIRALAX POWD 199493 POLYETHYLENE GLYCOL 3350 Inactive CVS VITAMIN C 500 MG TABS 1 po daily CVS VITAMIN C 500 MG TABS 632609 ASCORBIC ACID Inactive COZAAR 100 MG TABS 1 qd COZAAR 100 MG TABS 059048 LOSARTAN POTASSIUM Inactive ALLOPURINOL 300 MG TABS 1 qd ALLOPURINOL 300 MG TABS 188322 ALLOPURINOL Inactive BUDEPRION SR 150 MG [id number] 1 bid BUDEPRION SR 150 MG [id number] BUPROPION HCL Inactive DILANTIN 100 MG CAPS 3 cap tid DILANTIN 100 MG CAPS 592363 PHENYTOIN SODIUM EXTENDED Inactive HYDROCODONE-ACETAMINOPHEN 7.5-325 MG TABS 1 q 6 hrs prn HYDROCODONE-ACETAMINOPHEN 7.5-325 MG TABS 615307 HYDROCODONE- ACETAMINOPHEN Inactive GABAPENTIN 300 MG CAPS 1 CAP PO TID GABAPENTIN 300 MG CAPS 153938 GABAPENTIN Inactive GABAPENTIN 400 MG ORAL CAPS 1 TAB BY MOUTH THREE TIMES DAILY 2015 GABAPENTIN 400 MG ORAL CAPS 597099 GABAPENTIN Inactive METOPROLOL TARTRATE 50 MG ORAL TABS 1 TAB BY MOUTH TWICE DAILY METOPROLOL TARTRATE 50 MG ORAL TABS 465155 METOPROLOL TARTRATE Inactive ZYLOPRIM 300 MG TAB 1 BY MOUTH DAILY ZYLOPRIM 300 MG TAB 968931 ALLOPURINOL Inactive MECLIZINE HCL 25 MG CHEW TAB 1 four times a day as needed for dizziness 02/21 MECLIZINE HCL 25 MG CHEW TAB 090352 MECLIZINE HCL Inactive ATIVAN 0.5 MG TABS Take 1 tablet 2x daily PRN ATIVAN 0.5 MG TABS 636915 LORAZEPAM Inactive CELEXA 20 MG TABS Take 1 tablet 1x daily CELEXA 20 MG TABS 802711 CITALOPRAM HYDROBROMIDE Inactive ULORIC 40 MG ORAL TABS 1 daily for gout. ULORIC 40 MG ORAL TABS FEBUXOSTAT Inactive BUPROPION HCL ER (SR) 150 MG [id number] 1 twice a day for depression BUPROPION HCL ER (SR) 150 MG [id number] BUPROPION HCL Inactive MULTIVITAMINS CAPS 1 DAILY MULTIVITAMINS CAPS MULTIPLE VITAMIN Inactive NORCO 5-325 MG TABS 1-2 TAB Q 6 HRS PRN NORCO 5-325 MG TABS 453815 HYDROCODONE-ACETAMINOPHEN Inactive PHENYTOIN 50 MG CHEW 1 TAB PO BID PHENYTOIN 50 MG CHEW 5620626 PHENYTOIN Inactive FENTANYL 12 MCG/HR PT72 Apply to clean, dry skin and change every 72 hours FENTANYL 12 MCG/HR PT72 853727 FENTANYL Inactive FENTANYL 25 MCG/HR PT72 Apply to clean skin and change every 72 hours. 07/03 FENTANYL 25 MCG/HR PT72 616531 FENTANYL Inactive Advance Directives Directive Description Start [...] mg/dL Encounters Code Encounter Date Provider Facility CPT-16521 Level 3 Est. Patient 19:05:03 CDT Jonel Hemphill MD [facility] CPT-04267 Level 3 Est. Patient 17:30:47 CDT Kevin Link MD [facility] CPT-30089 Level 3 Est. Patient 18:04:07 CDT Jonel Hemphill MD [facility] CPT-95724 Level 3 Est. Patient 17:18:03 CDT Jonel Hemphill MD [facility] CPT-63059 Level 3 Est. Patient 21:58:03 CEMENT CRUSHER OPERATOR Jonel Hemphill MD [facility] CPT-94390 Level 4 Est. Patient 18:03:14 CDT Jonel Hemphill MD [facility]-28093 Level 4 Est. Patient 13:24:53 CDT Jonel Hemphill MD [facility]-52679 Level 4 Est. Patient 09:15:44 CDT Jonel Hemphill MD [facility]-22101 Level 4 Est. Patient 19:16:01 CDT Jonel Hemphill MD [facility]-64656 Level 4 Est. Patient 11:25:16 CDT Jonel Hemphill MD [facility]-56236 Level 4 Est. Patient 09:00:40 CDT Jonel Hemphill MD [facility]-83425 Level 4 Est. Patient 14:53:58 CDT Jonel Hemphill MD [facility]-47896 Level 4 Est. Patient 22:59:01 CDT Jonel Hemphill MD [facility]-58752 Level 4 Est. Patient 09:29:57 CDT Jonel Hemphill MD [facility]-21198 Level 4 Est. Patient 12:35:53 CEMENT CRUSHER OPERATOR Jonel Hemphill MD [facility]-37419 Level 4 Est. Patient 22:36:09 CEMENT CRUSHER OPERATOR Jonel Hemphill MD [facility]-67924 Level 2 Est. Patient 15:14:15 CEMENT CRUSHER OPERATOR Mayco Shah APRN [facility] CPT-44712 Level 4 Est. Patient 10:36:22 CEMENT CRUSHER OPERATOR Jonel Hemphill MD [facility]-00870 Level 4 Est. Patient 22:01:13 CEMENT CRUSHER OPERATOR Jonel Hemphill MD [facility]-29281 Level 3 Est. Patient 21:50:37 CEMENT CRUSHER OPERATOR Jonel Hemphill MD [facility] CPT-54988 Level 4 Est. Patient 15:02:43 CDT Rubin Pierre MD [facility] CPT-70541 Level 4 Est. Patient 14:27:35 CDT Jonel Hemphill MD [facility] CPT-38354 Level 4 Est. Patient 12:41:17 CDT Jonel Hemphill MD [facility] CPT-80336 Level 4 Est. Patient 16:18:55 CDT Jonel Hemphill MD [facility] CPT-60368 Level 4 Est. Patient 17:58:05 CDT Jonel Hemphill MD [facility] CPT-52413 Level 4 Est. Patient 22:10:06 CDT Jonel Hemphill MD [facility] CPT-72750 Level 4 Est. Patient 13:22:09 CDT Jonel Hemphill MD [facility] CPT-17463 Level 4 Est. Patient 22:52:17 CEMENT CRUSHER OPERATOR Jonel Hemphill MD [facility] CPT-63467 Level 3 Est. Patient 22:34:10 CEMENT CRUSHER OPERATOR Jonel Hemphill MD [facility] CPT-29458 Level 4 Est. Patient 07:49:20 CEMENT CRUSHER OPERATOR Jonel Hemphill MD [facility] Skilled CPT-99137 Level 3 Est. Patient 08:28:27 CEMENT CRUSHER OPERATOR Jonel Hemphill MD [facility] Procedures Code Procedure Name Date Entry Date Standard Description CPT-03476 Level 3 Long-Term 15:38:24 CDT CPT-29426 Level 3 Long-Term 08:18:30 CDT CPT-64200 Level 3 Long-Term 19:03:14 CDT CPT-54595 Level 3 Long-Term 17:42:11 CDT CPT-22823 Level 3 Long-Term 16:04:10 CDT CPT-19374 Level 3 Long-Term 19:38:15 CEMENT CRUSHER OPERATOR CPT-25687 Level 3 Long-Term 19:28:48 CEMENT CRUSHER OPERATOR CPT-69757 Level 3 Long-Term 18:02:20 CEMENT CRUSHER OPERATOR CPT-28601 Level 3 Long-Term 15:02:14 CEMENT CRUSHER OPERATOR CPT-91033 Level 3 Long-Term 12:25:37 CDT CPT-85734 Level 3 Long-Term 12:48:39 CDT CPT-44994 Level 3 Long-Term 17:39:14 CDT CPT-35055 Level 3 Long-Term 13:32:58 CDT CPT-84578 Level 3 Long-Term 17:43:43 CDT CPT-29861 Level 3 Long-Term 12:03:33 CEMENT CRUSHER OPERATOR CPT-93334 Level 3 Long-Term 18:47:28 CEMENT CRUSHER OPERATOR CPT-95090 Level 3 Long-Term 17:35:26 CEMENT CRUSHER OPERATOR CPT-59011 Level 3 Long-Term 18:44:49 CEMENT CRUSHER OPERATOR CPT-23981 Level 3 Long-Term 18:17:33 CDT CPT-74657 Level 3 Long-Term 09:25:33 CDT CPT-39973 Level 3 Long-Term 19:11:57 CDT CPT-87461 Level 3 Long-Term 09:25:52 CDT CPT-99396 Level 3 Long-Term 14:23:59 CDT CPT-99747 Level 3 Long-Term 12:09:43 CDT CPT-61463 Level 3 Long-Term 09:37:40 CDT CPT-54761 Level 3 Long-Term 18:23:02 CDT CPT-80546 Level 3 Long-Term 14:09:06 CDT CPT-43024 Level 3 Long-Term 12:43:27 CEMENT CRUSHER OPERATOR CPT-67946 Postop F/U Visit 14:10:15 CEMENT CRUSHER OPERATOR CPT-02240 [facility] 17:07:14 CEMENT CRUSHER OPERATOR CPT-11318 Level 3 Long-Term 16:14:37 CEMENT CRUSHER OPERATOR CPT-31360 Port a cath flush 11:47:42 CDT CPT-17944 Port a cath flush 08:29:49 CDT CPT-OV Office Visit 14:27:58 CEMENT CRUSHER OPERATOR
--- OUTSIDE RECORDS SUMMARY | 2016-08-07 11:32 | XMS REPORT | Clinical Summary ---
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 V58.69 Resolved Jonel Hemphill MD Long-term (current) [...] Coronary atherosclerosis of unspecified type of vessel, agdaagux or graft FH DIABETES V18.0 Resolved Jonel [...] Coronary atherosclerosis of unspecified type of vessel, agdaagux or graft CONSTIPATION 564.00 Resolved Jonel Hemphill [...] Hemphill MD Spasm of muscle 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 USE, PENITENTIARY ICD-V58.69 Inactive Jonel Hemphill MD DIABETES, TYPE [...] skin and change every 72 hours FENTANYL 02064449761 Active Jonel Hemphill MD Active MIRALAX POWD 17 gms in 4 oz water or juice daily POLYETHYLENE GLYCOL 3350 53007323851 Active Jonel Hemphill MD Active [facility] MELATONIN 3 MG ORAL TABS 2 tabs at hs MELATONIN 62517618207 Active Jonel Hemphill MD Active MAGNESIUM GLUCONATE 500 MG ORAL TABS 1 tab twice daily MAGNESIUM GLUCONATE 22061901230 Active Jonel Hemphill MD Active OMEPRAZOLE 20 MG CPDR 1 tablet by mouth daily OMEPRAZOLE 03496664830 Active Jonel Hemphill MD Active DIGOXIN 125 MCG ORAL TABS 1 daily DIGOXIN 94999190399 Active Jonel Hemphill MD Active DILTIAZEM CD 240 MG ORAL [id number] 1 daily DILTIAZEM HCL COATED BEADS 12408664051 Active Jonel Hemphill MD Active NOVOLOG 100 UNIT/ML SC SOLN 70-140=0U 141-180=2 U 181-220=4U 221-260=6U 261- 300=8U 301-340=10U 674=178=11R 381-400=14U INSULIN ASPART 90197300028 Active Jonel Hemphill MD Active ACETAMINOPHEN 325 MG ORAL TABS 1 tab by mouth every 4 hours as needed ACETAMINOPHEN 67001206871 Active Jonel Hemphill MD Active FENTANYL 12 MCG/HR PT72 Apply to clean, dry skin and change every 72 hours FENTANYL 09981293058 No Longer Active Jonel Hemphill MD Active PHENYTOIN 50 MG CHEW 1 TAB PO BID PHENYTOIN 41777386413 No Longer Active Jonel Hemphill MD Active NORCO 5-325 MG TABS 1-2 TAB Q 6 HRS PRN HYDROCODONE- ACETAMINOPHEN 78166755751 No Longer Active Jonel Hemphill MD Active MULTIVITAMINS CAPS 1 DAILY MULTIPLE VITAMIN 72098369651 No Longer Active Jonel Hemphill MD Active BUPROPION HCL ER (SR) 150 MG [id number] 1 twice a day for depression BUPROPION HCL 01280853411 No Longer Active Jonel Hemphill MD Active LISINOPRIL 20 MG TABS 1 tablet by mouth daily LISINOPRIL 41435926435 Active Jonel Hemphill MD Active ULORIC 40 MG ORAL TABS 1 daily for gout. FEBUXOSTAT 78637226793 No Longer Active Jonel Hemphill MD Active CELEXA 20 MG TABS 1 tablet by mouth daily CITALOPRAM HYDROBROMIDE 18370108864 Active Marleni Raida Active ZOFRAN 4 MG TABS 1 po q6hr PRN [place] ONDANSETRON HCL 74389441334 Active Jonel Hemphill MD Active XARELTO 20 MG ORAL TABS 1 daily RIVAROXABAN 19696760284 Active Jonel Hemphill MD Active JANUVIA 100 MG ORAL TABS 2 tabs daily SITAGLIPTIN PHOSPHATE 58242678949 Active Jonel Hemphill MD Active CELEXA 20 MG TABS Take 1 tablet 1x daily CITALOPRAM HYDROBROMIDE 90018003124 No Longer Active Jonel Hemphill MD Active ATIVAN 0.5 MG TABS Take 1 tablet 2x daily PRN LORAZEPAM 07537928257 No Longer Active Jonel Hemphill MD Active FUROSEMIDE 80 MG ORAL TABS 1 daily FUROSEMIDE 70404294387 Active Jonel Hemphill MD Active MECLIZINE HCL 25 MG CHEW TAB 1 four times a day as needed for dizziness 02/21 MECLIZINE HCL 55862198790 No Longer Active Jonel Hemphill MD Active ZYLOPRIM 300 MG TAB 1 BY MOUTH DAILY ALLOPURINOL 97023231037 No Longer Active Jonel Hemphill MD Active METOPROLOL TARTRATE 50 MG ORAL TABS 1 TAB BY MOUTH TWICE DAILY METOPROLOL TARTRATE 36380666573 No Longer Active Jonel Hemphill MD Active GABAPENTIN 400 MG ORAL CAPS 1 TAB BY MOUTH THREE TIMES DAILY 2015 GABAPENTIN 73308581925 No Longer Active Jonel Hemphill MD Active HYDROCODONE-ACETAMINOPHEN 7.5-325 MG TABS 1 TAB PO Q 6 HRS PRN HYDROCODONE-ACETAMINOPHEN 25566806052 Active Jonel Hemphill MD Active METFORMIN HCL 1000 MG TABS 1 tablet by mouth twice daily METFORMIN HCL 25033689713 Active Marleni Romero Active KLOR-CON 20 MEQ ORAL PACK 1 BY MOUTH DAILY POTASSIUM CHLORIDE 71875892727 Active Marleni Romero Active A+D FIRST AID EXT OINT APPLY OINTMENT AND RUFINO WRAPS TO LOWER EXTEREMETIES DAILY SKIN PROTECTANTS, MISC. 29724262348 Active Jonel Hemphill MD Active NYSTATIN 319624 UNIT/GM EXT OINT APPLY PRN TID TO GAULDING/RASH IN ABDOMINAL FOLDS NYSTATIN 97362347449 Active Jonel Hemphill MD Active GABAPENTIN 300 MG CAPS 1 CAP PO TID GABAPENTIN 91122867429 No Longer Active Jonel Hemphill MD Active DILANTIN 100 MG ORAL CAPS 1 THREE TIMES DAILY FOR SEIZURES PHENYTOIN SODIUM EXTENDED 19051112740 Active Marleni Romero Active CPAP APPLY AT HS CPAP Active Jonel Hemphill MD Active HYDROCODONE-ACETAMINOPHEN 7.5-325 MG TABS 1 q 6 hrs prn HYDROCODONE-ACETAMINOPHEN 36695013790 No Longer Active Jonel Hemphill MD Active DILANTIN 100 MG CAPS 3 cap tid PHENYTOIN SODIUM EXTENDED 74875574021 No Longer Active Jonel Hemphill MD Active BUDEPRION SR 150 MG [id number] 1 bid BUPROPION HCL 30040806151 No Longer Active Jonel Hemphill MD Active ALLOPURINOL 300 MG TABS 1 qd ALLOPURINOL 96732182476 No Longer Active Jonel Hemphill MD Active COZAAR 100 MG TABS 1 qd LOSARTAN POTASSIUM 03771578160 No Longer Active Jonel Hemphill MD Active CVS VITAMIN C 500 MG TABS 1 po daily ASCORBIC ACID 83985755969 No Longer Active Jonel Hemphill MD Active MIRALAX POWD 17 gms in 4 oz water or juice daily POLYETHYLENE GLYCOL 3350 41888833045 No Longer Active Jonel Hemphill MD Active POTASSIUM CHLORIDE CHELA ER 20 MEQ CR-TABS 1 tab PO daily POTASSIUM CHLORIDE CHELA CR 51278975442 No Longer Active Jonel Hemphill MD Active AMBIEN 10 MG TAB 1 tab by mouth at bedtime as needed for sleep ZOLPIDEM TARTRATE 33678529163 No Longer Active Jonel Hemphill MD Active SULFAMETHOXAZOLE-TMP DS 800-160 MG TABS 1 TAB PO BID SULFAMETHOXAZOLE-TRIMETHOPRIM 65912437087 No Longer Active Jonel Hemphill MD Active LEVEMIR 100 UNIT/ML SOLN 5 units sub-q at bedtime INSULIN DETEMIR 96683888698 No Longer Active Tova Perez Active MOBIC 15 MG TABS 1 tab PO daily for arthritis pain MELOXICAM 71178746696 No Longer Active Tova Perez Active GLUCAGEN 1 MG SOLR INJECT 1MG IM IF BS LESS THAN 60 & RES. IS UNABLE TO SWALLOW GLUCAGON HCL (RDNA) 16402882748 No Longer Active Tova Perez Active [facility]S MILK OF MAGNESIA 1200 MG/15ML SUSP 30 ml daily for constipation MAGNESIUM HYDROXIDE 35876847666 No Longer Active Tova Perez Active IMDUR 120 MG [id number] 1 qd ISOSORBIDE MONONITRATE 34888264586 No Longer Active Tova Perez Active NEURONTIN 400 MG CAPS Take one by mouth 3 times daily, morning, afternoon and evening.] GABAPENTIN 88073274955 No Longer Active Tova Perez Active ANTIVERT 25 MG TABS 1 q 6 hrs prn MECLIZINE HCL 88827612318 No Longer Active Jonel Hemphill MD Active CLONIDINE HCL 0.2 MG TABS 1 q 8 hrs as needed -greater than 160-htn CLONIDINE HCL 41665014052 No Longer Active Jonel Hemphill MD Active AMBIEN 10 MG TABS 1 q hs prn ZOLPIDEM TARTRATE 40990016215 No Longer Active Jonel Hemphill MD Active GNP THERAPEUTIC-M TABS 1 qd MULTIPLE VITAMINS- MINERALS 69118655556 No Longer Active Jonel Hemphill MD Active METOPROLOL TARTRATE 50 MG TABS 1 bid METOPROLOL TARTRATE 88746334337 No Longer Active Jonel Hemphill MD Active METFORMIN HCL 500 MG TABS 1 bod with food METFORMIN HCL 48680213007 No Longer Active Jonel Hemphill MD Active LISINOPRIL 40 MG TABS 1 qd LISINOPRIL 74485646478 No Longer Active Jonel Hemphill MD Active HYDROCHLOROTHIAZIDE 25 MG TABS 1 qd HYDROCHLOROTHIAZIDE 72937178888 No Longer Active Jonel Hemphill MD Active DURAGESIC-25 25 MCG/HR PT72 place 1 patch on the skin q72hrs for pain FENTANYL 15857424253 No Longer Active Jonel Hemphill MD Active FENTANYL 75 MCG/HR PT72 place 1 patch on skin q72hrs fr pain 2012 FENTANYL 12098319293 No Longer Active Jonel Hemphill MD Active FUROSEMIDE 40 MG TABS 1 q am FUROSEMIDE 68738332071 No Longer Active Jonel Hemphill MD Active HEPARIN (PORCINE) LOCK FLUSH 100 UNIT/ML SOLN Flush port a cath monthly every three week on with Heparin and NS HEPARIN LOCK FLUSH 53746337626 Active Jonel Hemphill MD Active FENTANYL 100 MCG/HR PT72 Apply every 3 days FENTANYL 74121413287 Active Jonel Hemphill MD Active FENTANYL 25 MCG/HR PT72 Apply to clean skin and change every 72 hours. 07/03 FENTANYL 64414186788 No Longer Active Jonel Hemphill MD Active FENTANYL 50 MCG/HR PT72 place 1 patch on skin q72 hours FENTANYL 64836943902 No Longer Active Mayco Shah APRN Active DURAGESIC-12 12 MCG/HR PT72 APPLY PATCH TO SKIN AND CHANGE EVERY 72 HOURS, ROTATE SITES FENTANYL 63046573731 No Longer Active Fozia HERNANDEZ Active FUROSEMIDE 20 MG TABS 1 qd FUROSEMIDE 40389993089 No Longer Active Mahogany Subiaco Active ADULT ASPIRIN EC LOW STRENGTH 81 MG TBEC 1 qd ASPIRIN 34114703497 Active MARY Perez Active FUROSEMIDE 20 MG TABS 1 qd FUROSEMIDE 20 MG TABS 585829 FUROSEMIDE Inactive DURAGESIC-12 12 MCG/HR PT72 APPLY PATCH TO SKIN AND CHANGE EVERY 72 HOURS, ROTATE SITES DURAGESIC-12 12 MCG/HR PT72 460563 FENTANYL Inactive FENTANYL 50 MCG/HR PT72 place 1 patch on skin q72 hours FENTANYL 50 MCG/HR PT72 311031 FENTANYL Inactive FUROSEMIDE 40 MG TABS 1 q am FUROSEMIDE 40 MG TABS 926487 FUROSEMIDE Inactive FENTANYL 75 MCG/HR PT72 place 1 patch on skin q72hrs fr pain 2012 FENTANYL 75 MCG/HR PT72 210510 FENTANYL Inactive DURAGESIC-25 25 MCG/HR PT72 place 1 patch on the skin q72hrs for pain DURAGESIC-25 25 MCG/HR PT72 097378 FENTANYL Inactive HYDROCHLOROTHIAZIDE 25 MG TABS 1 qd HYDROCHLOROTHIAZIDE 25 MG TABS 045465 HYDROCHLOROTHIAZIDE Inactive LISINOPRIL 40 MG TABS 1 qd LISINOPRIL 40 MG TABS 296850 LISINOPRIL Inactive METFORMIN HCL 500 MG TABS 1 bod with food METFORMIN HCL 500 MG TABS 800783 METFORMIN HCL Inactive METOPROLOL TARTRATE 50 MG TABS 1 bid METOPROLOL TARTRATE 50 MG TABS 256351 METOPROLOL TARTRATE Inactive GNP THERAPEUTIC-M TABS 1 qd GNP THERAPEUTIC-M TABS MULTIPLE VITAMINS-MINERALS Inactive AMBIEN 10 MG TABS 1 q hs prn AMBIEN 10 MG TABS 344972 ZOLPIDEM TARTRATE Inactive CLONIDINE HCL 0.2 MG TABS 1 q 8 hrs as needed -greater than 160-htn CLONIDINE HCL 0.2 MG TABS 174381 CLONIDINE HCL Inactive ANTIVERT 25 MG TABS 1 q 6 hrs prn ANTIVERT 25 MG TABS MECLIZINE HCL Inactive NEURONTIN 400 MG CAPS Take one by mouth 3 times daily, morning, afternoon and evening.] NEURONTIN 400 MG CAPS 387112 GABAPENTIN Inactive IMDUR 120 MG [id number] 1 qd IMDUR 120 MG [id number] ISOSORBIDE MONONITRATE Inactive [facility]S MILK OF MAGNESIA [...] for arthritis pain MOBIC 15 MG TABS 380493 MELOXICAM Inactive LEVEMIR 100 UNIT/ML SOLN 5 units sub-q at bedtime LEVEMIR 100 UNIT/ML SOLN INSULIN DETEMIR Inactive SULFAMETHOXAZOLE-TMP DS 800-160 MG TABS 1 TAB PO BID SULFAMETHOXAZOLE-TMP DS 800-160 MG TABS 218893 SULFAMETHOXAZOLE-TRIMETHOPRIM Inactive AMBIEN 10 MG TAB 1 tab by mouth at bedtime as needed for sleep AMBIEN 10 MG TAB 523153 ZOLPIDEM TARTRATE Inactive POTASSIUM CHLORIDE CHELA ER 20 MEQ CR-TABS 1 tab PO daily POTASSIUM CHLORIDE CHELA ER 20 MEQ CR-TABS POTASSIUM CHLORIDE CHELA CR Inactive MIRALAX POWD 17 gms in 4 oz water or juice daily MIRALAX POWD 998768 POLYETHYLENE GLYCOL 3350 Inactive CVS VITAMIN C 500 MG TABS 1 po daily CVS VITAMIN C 500 MG TABS 685513 ASCORBIC ACID Inactive COZAAR 100 MG TABS 1 qd COZAAR 100 MG TABS 985617 LOSARTAN POTASSIUM Inactive ALLOPURINOL 300 MG TABS 1 qd ALLOPURINOL 300 MG TABS 131510 ALLOPURINOL Inactive BUDEPRION SR 150 MG [id number] 1 bid BUDEPRION SR 150 MG [id number] BUPROPION HCL Inactive DILANTIN 100 MG CAPS 3 cap tid DILANTIN 100 MG CAPS 376101 PHENYTOIN SODIUM EXTENDED Inactive HYDROCODONE-ACETAMINOPHEN 7.5-325 MG TABS 1 q 6 hrs prn HYDROCODONE-ACETAMINOPHEN 7.5-325 MG TABS 781251 HYDROCODONE- ACETAMINOPHEN Inactive GABAPENTIN 300 MG CAPS 1 CAP PO TID GABAPENTIN 300 MG CAPS 690998 GABAPENTIN Inactive GABAPENTIN 400 MG ORAL CAPS 1 TAB BY MOUTH THREE TIMES DAILY 2015 GABAPENTIN 400 MG ORAL CAPS 441395 GABAPENTIN Inactive METOPROLOL TARTRATE 50 MG ORAL TABS 1 TAB BY MOUTH TWICE DAILY METOPROLOL TARTRATE 50 MG ORAL TABS 940508 METOPROLOL TARTRATE Inactive ZYLOPRIM 300 MG TAB 1 BY MOUTH DAILY ZYLOPRIM 300 MG TAB 533068 ALLOPURINOL Inactive MECLIZINE HCL 25 MG CHEW TAB 1 four times a day as needed for dizziness 02/21 MECLIZINE HCL 25 MG CHEW TAB 408256 MECLIZINE HCL Inactive ATIVAN 0.5 MG TABS Take 1 tablet 2x daily PRN ATIVAN 0.5 MG TABS 962649 LORAZEPAM Inactive CELEXA 20 MG TABS Take 1 tablet 1x daily CELEXA 20 MG TABS 470196 CITALOPRAM HYDROBROMIDE Inactive ULORIC 40 MG ORAL TABS 1 daily for gout. ULORIC 40 MG ORAL TABS FEBUXOSTAT Inactive BUPROPION HCL ER (SR) 150 MG [id number] 1 twice a day for depression BUPROPION HCL ER (SR) 150 MG [id number] BUPROPION HCL Inactive MULTIVITAMINS CAPS 1 DAILY MULTIVITAMINS CAPS MULTIPLE VITAMIN Inactive NORCO 5-325 MG TABS 1-2 TAB Q 6 HRS PRN NORCO 5-325 MG TABS 818980 HYDROCODONE-ACETAMINOPHEN Inactive PHENYTOIN 50 MG CHEW 1 TAB PO BID PHENYTOIN 50 MG CHEW 8988035 PHENYTOIN Inactive FENTANYL 12 MCG/HR PT72 Apply to clean, dry skin and change every 72 hours FENTANYL 12 MCG/HR PT72 230319 FENTANYL Inactive FENTANYL 25 MCG/HR PT72 Apply to clean skin and change every 72 hours. 2013/ 05/22 FENTANYL 25 MCG/HR PT72 311725 FENTANYL Inactive Advance Directives Directive Description Start [...] mg/dL Encounters Code Encounter Date Provider Facility CPT-43987 Level 4 Est. Patient 18:47:35 ELECTRIC DOLLY OPERATOR Jonel Hemphill MD [facility] CPT-22639 Level 4 Est. Patient 10:04:48 ELECTRIC DOLLY OPERATOR Jonel Hemphill MD [facility] CPT-56410 Level 3 Est. Patient 19:05:03 CDT Jonel Hemphill MD [facility] CPT-69186 Level 3 Est. Patient 17:30:47 CDT Kevin Link MD -[id number] Level 3 Est. Patient 18:04:07 CDT Jonel Hemphill MD [facility] CPT-73589 Level 3 Est. Patient 17:18:03 CDT Jonel Hemphill MD [facility] CPT-95958 Level 3 Est. Patient 21:58:03 ELECTRIC DOLLY OPERATOR Jonel Hemphill MD [facility] CPT-04887 Level 4 Est. Patient 18:03:14 CDT Jonel Yeager [facility]-81817 Level 4 Est. Patient 13:24:53 CDT Jonel Yeager [facility]-52949 Level 4 Est. Patient 09:15:44 CDT Jonel Yeager [facility]-26184 Level 4 Est. Patient 19:16:01 CDT [facility] Level 4 Est. Patient 11:25:16 CDT Jonel Hemphill MD [facility] CPT-68620 Level 4 Est. Patient 09:00:40 CDT [facility]-46057 Level 4 Est. Patient 14:53:58 CDT Jonel Hemphill MD [facility]-83900 Level 4 Est. Patient 22:59:01 CDT Jonel Hemphill MD [facility]-56592 Level 4 Est. Patient 09:29:57 CDT Jonel Hemphill MD [facility]-15894 Level 4 Est. Patient 12:35:53 ELECTRIC DOLLY OPERATOR Jonel Hemphill MD [facility]-84814 Level 4 Est. Patient 22:36:09 ELECTRIC DOLLY OPERATOR Jonel Hemphill MD [facility]-56358 Level 2 Est. Patient 15:14:15 ELECTRIC DOLLY OPERATOR Mayco Shah APRN -10763 Level 4 Est. Patient 10:36:22 ELECTRIC DOLLY OPERATOR Jonel Hemphill MD [facility] CPT-15373 Level 4 Est. Patient 22:01:13 ELECTRIC DOLLY OPERATOR Jonel Hemphill MD [facility]-95970 Level 3 Est. Patient 21:50:37 ELECTRIC DOLLY OPERATOR Jonel Hemphill MD [facility] CPT-40789 Level 4 Est. Patient 15:02:43 CDT Rubin Pierre MD [facility]-15875 Level 4 Est. Patient 14:27:35 CDT Jonel Hemphill MD [facility]-75162 Level 4 Est. Patient 12:41:17 CDT Jonel Hemphill MD [facility]-77520 Level 4 Est. Patient 16:18:55 CDT Jonel Hemphill MD [facility] CPT-84388 Level 4 Est. Patient 17:58:05 CDT Jonel Hemphill MD [facility] CPT-63478 Level 4 Est. Patient 22:10:06 CDT Jonel Hemphill MD [facility] CPT-54101 Level 4 Est. Patient 13:22:09 CDT Jonel Hemphill MD [facility] CPT-06169 Level 4 Est. Patient 22:52:17 ELECTRIC DOLLY OPERATOR Jonel Hemphill MD [facility] CPT-74086 Level 3 Est. Patient 22:34:10 ELECTRIC DOLLY OPERATOR Jonel Hemphill MD [facility] CPT-49057 Level 4 Est. Patient 07:49:20 ELECTRIC DOLLY OPERATOR Jonel Hemphill MD [facility] Skilled CPT-95483 Level 3 Est. Patient 08:28:27 ELECTRIC DOLLY OPERATOR Jonel Hemphill MD [facility] Procedures Code Procedure Name Date Entry Date Standard Description CPT-47845 Level 3 Prison 17:57:17 ELECTRIC DOLLY OPERATOR CPT-01625 Level 3 Prison 21:14:15 ELECTRIC DOLLY OPERATOR CPT-08632 Level 3 Prison 15:38:24 CDT CPT-46066 Level 3 Prison 08:18:30 CDT CPT-03151 Level 3 Prison 19:03:14 CDT CPT-95009 Level 3 Prison 17:42:11 CDT CPT-35752 Level 3 Prison 16:04:10 CDT CPT-56167 Level 3 Prison 19:38:15 ELECTRIC DOLLY OPERATOR CPT-78014 Level 3 Prison 19:28:48 ELECTRIC DOLLY OPERATOR CPT-06210 Level 3 Prison 18:02:20 ELECTRIC DOLLY OPERATOR CPT-83404 Level 3 Prison 15:02:14 ELECTRIC DOLLY OPERATOR CPT-74105 Level 3 Prison 12:25:37 CDT CPT-46555 Level 3 Prison 12:48:39 CDT CPT-97477 Level 3 Prison 17:39:14 CDT CPT-99676 Level 3 Prison 13:32:58 CDT CPT-37963 Level 3 Prison 17:43:43 CDT CPT-63202 Level 3 Prison 12:03:33 ELECTRIC DOLLY OPERATOR CPT-59976 Level 3 Prison 18:47:28 ELECTRIC DOLLY OPERATOR CPT-87540 Level 3 Prison 17:35:26 ELECTRIC DOLLY OPERATOR CPT-73450 Level 3 Prison 18:44:49 ELECTRIC DOLLY OPERATOR CPT-16449 Level 3 Prison 18:17:33 CDT CPT-21378 Level 3 Prison 09:25:33 CDT CPT-85615 Level 3 Prison 19:11:57 CDT CPT-71954 Level 3 Prison 09:25:52 CDT CPT-21012 Level 3 Prison 14:23:59 CDT CPT-61397 Level 3 Prison 12:09:43 CDT CPT-75790 Level 3 Prison 09:37:40 CDT CPT-30663 Level 3 Prison 18:23:02 CDT CPT-26425 Level 3 Prison 14:09:06 CDT CPT-07641 Level 3 Prison 12:43:27 ELECTRIC DOLLY OPERATOR CPT-99680 Postop F/U Visit 14:10:15 ELECTRIC DOLLY OPERATOR CPT-05191 [facility] 17:07:14 ELECTRIC DOLLY OPERATOR CPT-68610 Level 3 Prison 16:14:37 ELECTRIC DOLLY OPERATOR CPT-30466 Port a cath flush 11:47:42 CDT CPT-95671 Port a cath flush 08:29:49 CDT CPT-OV Office Visit 14:27:58 ELECTRIC DOLLY OPERATOR
--- OUTSIDE RECORDS SUMMARY | 2016-08-07 11:33 | XMS REPORT | Clinical Summary ---
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 Resolved Jonel Hemphill MD Long-term [...] Coronary atherosclerosis of unspecified type of vessel, pit river or graft FH DIABETES V18.0 Resolved Jonel [...] Coronary atherosclerosis of unspecified type of vessel, pit river or graft CONSTIPATION 564.00 Resolved Jonel Hemphill [...] Jonel Hemphill MD Acute bronchitis 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 USE, USP ICD-V58.69 Inactive Jonel Hemphill MD DIABETES, TYPE [...] Inactive Jonel Hemphill MD LUMBAGO ICD-724.2 Inactive oJnel Hemphill MD 2013 SHOULDER STRAIN, RIGHT ICD-840.9 [...] Generic Name NDC Status Provider Patient Instruction GABAPENTIN 400 MG ORAL CAPS 1 TAB BY MOUTH THREE TIMES DAILY GABAPENTIN 23545860460 Active Jonel Hemphill MD Active GABAPENTIN 300 MG CAPS 1 CAP PO TID GABAPENTIN 42644297089 No Longer Active Jonel Hemphill MD Active DILANTIN 100 MG ORAL CAPS 1 THREE TIMES DAILY FOR SEIZURES PHENYTOIN SODIUM EXTENDED 45789337735 Active Marleni Romero Active CPAP APPLY AT HS CPAP Active Jonel Hemphill MD Active METOPROLOL TARTRATE 50 MG ORAL TABS 1 TAB BY MOUTH TWICE DAILY METOPROLOL TARTRATE 97481574497 Active Jonel Hemphill MD Active LISINOPRIL 40 MG TABS 1 tablet by mouth twice daily, for blood pressure 03/31 LISINOPRIL 10472960310 Active Jonel Hemphill MD Active BUPROPION HCL ER (SR) 150 MG [id number] 1 twice a day for depression BUPROPION HCL 06054994089 Active Jonel Hemphill MD Active MULTIVITAMINS CAPS 1 DAILY MULTIPLE VITAMIN 18672755425 Active Jonel Hemphill MD Active ZYLOPRIM 300 MG TAB 1 BY MOUTH DAILY ALLOPURINOL 38338650562 Active Jonel Hemphill MD Active HYDROCODONE-ACETAMINOPHEN 7.5-325 MG TABS 1 q 6 hrs prn HYDROCODONE-ACETAMINOPHEN 90082627823 No Longer Active Jonel Hemphill MD Active DILANTIN 100 MG CAPS 3 cap tid PHENYTOIN SODIUM EXTENDED 68080572811 No Longer Active Jonel Hemphill MD Active BUDEPRION SR 150 MG [id number] 1 bid BUPROPION HCL 21755280155 No Longer Active Jonel Hemphill MD Active ALLOPURINOL 300 MG TABS 1 qd ALLOPURINOL 41295580747 No Longer Active Jonel Hemphill MD Active COZAAR 100 MG TABS 1 qd LOSARTAN POTASSIUM 36621079072 No Longer Active Jonel Hemphill MD Active CVS VITAMIN C 500 MG TABS 1 po daily ASCORBIC ACID 60657462147 No Longer Active Jonel Hemphill MD Active MIRALAX POWD 17 gms in 4 oz water or juice daily POLYETHYLENE GLYCOL 3350 10081001937 No Longer Active Jonel Hemphill MD Active POTASSIUM CHLORIDE CHELA ER 20 MEQ CR-TABS 1 tab PO daily POTASSIUM CHLORIDE CHELA CR 80733015984 No Longer Active Jonel Hemphill MD Active AMBIEN 10 MG TAB 1 tab by mouth at bedtime as needed for sleep ZOLPIDEM TARTRATE 91507285250 No Longer Active Jonel Hemphill MD Active SULFAMETHOXAZOLE-TMP DS 800-160 MG TABS 1 TAB PO BID SULFAMETHOXAZOLE-TRIMETHOPRIM 79465178065 No Longer Active Jonel Hemphill MD Active NORCO 5-325 MG TABS 1-2 TAB Q 6 HRS PRN HYDROCODONE- ACETAMINOPHEN 78333140712 Active Jonel Hemphill MD Active LEVEMIR 100 UNIT/ML SOLN 5 units sub-q at bedtime INSULIN DETEMIR 60279383225 No Longer Active Tova Perez Active MOBIC 15 MG TABS 1 tab PO daily for arthritis pain MELOXICAM 30778439832 No Longer Active Tova Perez Active GLUCAGEN 1 MG SOLR INJECT 1MG IM IF BS LESS THAN 60 & RES. IS UNABLE TO SWALLOW GLUCAGON HCL (RDNA) 73112320823 No Longer Active Tova Perez Active CVS MILK OF MAGNESIA 1200 MG/15ML SUSP 30 ml daily for constipation MAGNESIUM HYDROXIDE 59987373516 No Longer Active Tova Perez Active IMDUR 120 MG [id number] 1 qd ISOSORBIDE MONONITRATE 26023398578 No Longer Active Tova Perez Active METFORMIN HCL 500 MG TABS 1 tablet by mouth twice daily METFORMIN HCL 15316497074 Active Tova Perez Active PHENYTOIN 50 MG CHEW 1 TAB PO BID PHENYTOIN 81245017805 Active Tova Perez Active MECLIZINE HCL 25 MG CHEW TAB 1 four times a day as needed for dizziness 02/21 MECLIZINE HCL 47179853301 Active Tova Perez Active NEURONTIN 400 MG CAPS Take one by mouth 3 times daily, morning, afternoon and evening.] GABAPENTIN 46244229690 No Longer Active Tova Chris Active ANTIVERT 25 MG TABS 1 q 6 hrs prn MECLIZINE HCL 66758613998 No Longer Active Jonel Hemphill MD Active CLONIDINE HCL 0.2 MG TABS 1 q 8 hrs as needed -greater than 160-htn CLONIDINE HCL 87133927291 No Longer Active Jonel Hemphill MD Active AMBIEN 10 MG TABS 1 q hs prn ZOLPIDEM TARTRATE 95099338637 No Longer Active Jonel Hemphill MD Active GNP THERAPEUTIC-M TABS 1 qd MULTIPLE VITAMINS- MINERALS 51311075482 No Longer Active Jonel Hemphill MD Active METOPROLOL TARTRATE 50 MG TABS 1 bid METOPROLOL TARTRATE 33352631712 No Longer Active Jonel Hemphill MD Active METFORMIN HCL 500 MG TABS 1 bod with food METFORMIN HCL 42642911071 No Longer Active Jonel Hemphill MD Active LISINOPRIL 40 MG TABS 1 qd LISINOPRIL 70274870785 No Longer Active Jonel Hemphill MD Active HYDROCHLOROTHIAZIDE 25 MG TABS 1 qd HYDROCHLOROTHIAZIDE 21646438056 No Longer Active Jonel Hemphill MD Active DURAGESIC-25 25 MCG/HR PT72 place 1 patch on the skin q72hrs for pain FENTANYL 70707859700 No Longer Active Jonel Hemphill MD Active FENTANYL 75 MCG/HR PT72 place 1 patch on skin q72hrs fr pain 2012 FENTANYL 41932126704 No Longer Active Jonel Hemphill MD Active LASIX 20 MG TABS 1 tab PO q morning FUROSEMIDE 79898629135 Active Jonel Hemphill MD Active FUROSEMIDE 40 MG TABS 1 q am FUROSEMIDE 68293199151 No Longer Active Jonel Hemphill MD Active HEPARIN (PORCINE) LOCK FLUSH 100 UNIT/ML SOLN Flush port a cath monthly every three week on with Heparin and NS HEPARIN LOCK FLUSH 29817885081 Active Jonel Hemphill MD Active FENTANYL 100 MCG/HR PT72 Apply every 3 days FENTANYL 12076833882 Active Pepe Perez MD Active FENTANYL 25 MCG/HR PT72 Apply to clean skin and change every 72 hours. 07/03 FENTANYL 17439355336 No Longer Active Jonel Hemphill MD Active FENTANYL 50 MCG/HR PT72 place 1 patch on skin q72 hours FENTANYL 15541850913 No Longer Active Mayco Shah APRN Active ATIVAN 0.5 MG TABS Take 1 tablet 2x daily LORAZEPAM 38098549738 Active Jonel Hemphill MD Active CELEXA 20 MG TABS Take 1 tablet 1x daily CITALOPRAM HYDROBROMIDE 49966622447 Active Jonel Hemphill MD Active DURAGESIC-12 12 MCG/HR PT72 APPLY PATCH TO SKIN AND CHANGE EVERY 72 HOURS, ROTATE SITES FENTANYL 06204386967 No Longer Active Fozia HERNANDEZ Active FUROSEMIDE 20 MG TABS 1 qd FUROSEMIDE 69964474694 No Longer Active Mahogany Jackson Active ADULT ASPIRIN EC LOW STRENGTH 81 MG TBEC 1 qd ASPIRIN 02331537403 Active MARY Perez Active FUROSEMIDE 20 MG TABS 1 qd FUROSEMIDE 20 MG TABS 895272 FUROSEMIDE Inactive DURAGESIC-12 12 MCG/HR PT72 APPLY PATCH TO SKIN AND CHANGE EVERY 72 HOURS, ROTATE SITES DURAGESIC-12 12 MCG/HR PT72 680941 FENTANYL Inactive FENTANYL 50 MCG/HR PT72 place 1 patch on skin q72 hours FENTANYL 50 MCG/HR PT72 379759 FENTANYL Inactive FUROSEMIDE 40 MG TABS 1 q am FUROSEMIDE 40 MG TABS 941022 FUROSEMIDE Inactive FENTANYL 75 MCG/HR PT72 place 1 patch on skin q72hrs fr pain 2012 FENTANYL 75 MCG/HR PT72 305108 FENTANYL Inactive DURAGESIC-25 25 MCG/HR PT72 place 1 patch on the skin q72hrs for pain DURAGESIC-25 25 MCG/HR PT72 889449 FENTANYL Inactive HYDROCHLOROTHIAZIDE 25 MG TABS 1 qd HYDROCHLOROTHIAZIDE 25 MG TABS 842424 HYDROCHLOROTHIAZIDE Inactive LISINOPRIL 40 MG TABS 1 qd LISINOPRIL 40 MG TABS 493262 LISINOPRIL Inactive METFORMIN HCL 500 MG TABS 1 bod with food METFORMIN HCL 500 MG TABS 829784 METFORMIN HCL Inactive METOPROLOL TARTRATE 50 MG TABS 1 bid METOPROLOL TARTRATE 50 MG TABS 343631 METOPROLOL TARTRATE Inactive GNP THERAPEUTIC-M TABS 1 qd GNP THERAPEUTIC-M TABS MULTIPLE VITAMINS-MINERALS Inactive AMBIEN 10 MG TABS 1 q hs prn AMBIEN 10 MG TABS 667347 ZOLPIDEM TARTRATE Inactive CLONIDINE HCL 0.2 MG TABS 1 q 8 hrs as needed -greater than 160-htn CLONIDINE HCL 0.2 MG TABS 887914 CLONIDINE HCL Inactive ANTIVERT 25 MG TABS 1 q 6 hrs prn ANTIVERT 25 MG TABS MECLIZINE HCL Inactive NEURONTIN 400 MG CAPS Take one by mouth 3 times daily, morning, afternoon and evening.] NEURONTIN 400 MG CAPS 921592 GABAPENTIN Inactive IMDUR 120 MG [id number] 1 qd IMDUR 120 MG [id number] ISOSORBIDE MONONITRATE Inactive CVS MILK OF MAGNESIA [...] for arthritis pain MOBIC 15 MG TABS 872674 MELOXICAM Inactive LEVEMIR 100 UNIT/ML SOLN 5 units sub-q at bedtime LEVEMIR 100 UNIT/ML SOLN INSULIN DETEMIR Inactive SULFAMETHOXAZOLE-TMP DS 800-160 MG TABS 1 TAB PO BID SULFAMETHOXAZOLE-TMP DS 800-160 MG TABS SULFAMETHOXAZOLE-TRIMETHOPRIM Inactive AMBIEN 10 MG TAB 1 tab by mouth at bedtime as needed for sleep AMBIEN 10 MG TAB 087476 ZOLPIDEM TARTRATE Inactive POTASSIUM CHLORIDE CHELA ER 20 MEQ CR-TABS 1 tab PO daily POTASSIUM CHLORIDE CHELA ER 20 MEQ CR-TABS POTASSIUM CHLORIDE CHELA CR Inactive MIRALAX POWD 17 gms in 4 oz water or juice daily MIRALAX POWD 593718 POLYETHYLENE GLYCOL 3350 Inactive CVS VITAMIN C 500 MG TABS 1 po daily CVS VITAMIN C 500 MG TABS 348984 ASCORBIC ACID Inactive COZAAR 100 MG TABS 1 qd COZAAR 100 MG TABS 538921 LOSARTAN POTASSIUM Inactive ALLOPURINOL 300 MG TABS 1 qd ALLOPURINOL 300 MG TABS 850113 ALLOPURINOL Inactive BUDEPRION SR 150 MG [id number] 1 bid BUDEPRION SR 150 MG [id number] BUPROPION HCL Inactive DILANTIN 100 MG CAPS 3 cap tid DILANTIN 100 MG CAPS 256572 PHENYTOIN SODIUM EXTENDED Inactive HYDROCODONE-ACETAMINOPHEN 7.5-325 MG TABS 1 q 6 hrs prn HYDROCODONE-ACETAMINOPHEN 7.5-325 MG TABS 112303 HYDROCODONE- ACETAMINOPHEN Inactive GABAPENTIN 300 MG CAPS 1 CAP PO TID GABAPENTIN 300 MG CAPS 496966 GABAPENTIN Inactive FENTANYL 25 MCG/HR PT72 Apply to clean skin and change every 72 hours. 07/03 FENTANYL 25 MCG/HR PT72 635664 FENTANYL Inactive Advance Directives Directive Description Start Date ADVANCE DIRECTIVE Immunizations Vaccine Administration Date Value Standard Description influenza immunization (Flu Vax) has been administered Influenza - Unspecified Formulation [CVX88] influenza virus vaccine, unspecified formulation pneumococcal immunization administered Pneumovax 23 [CVX33] pneumococcal polysaccharide vaccine, 23 valent Vital Signs Date Name Value Unit Range Description blood pressure, diastolic - 8462-4 86 mm[Hg] [...] rate temperature E&M 97.6 [degF] Body temperature Diagnostic Results Date Name Value Unit Range Description Chart Maintenance: Outside labs entered on flowsheet - Chemistry sodium, serum 144 mmol/L potassium, serum 4.6 mmol/L blood glucose 187 mg/dL creatinine, serum 0.85 mg/dL aspartate aminotransferase (SGOT), serum 33 U/L alanine aminotransferase (SGPT), serum 42 U/L alkaline phosphatase, serum 60 U/L hemoglobin A1C, blood, as % of total hemoglobin 7.2 % hemoglobin A1C, blood, as % of total hemoglobin 5.7 % hemoglobin A1C, blood, as % of total hemoglobin 6.8 % Chart Maintenance: Outside labs entered on flowsheet - Hematology leukocyte count, blood 7.5 10*3/mm3 hemoglobin, blood 14.5 g/dL platelet count 128 10*3/mm3 Lab Report: CBC W/DIFF, Comp. Metabolic Panel, MELANIE INFLUENZA A/B - Chemistry sodium, serum 142 mmol/L 132-539 9750/01/20 potassium, serum 3.9 mmol/L 3.5-5.2 chloride, serum [...] 4.3-6.0 Encounters Code Encounter Date Provider Facility CPT-31864 Level 3 Est. Patient 18:04:07 CDT Jonel Hemphill MD [facility] CPT-82022 Level 3 Est. Patient 17:18:03 CDT Jonel Hemphill MD [facility] CPT-65850 Level 3 Est. Patient 21:58:03 LEGAL PROJECT MANAGER Jonel Hemphill MD [facility] CPT-36296 Level 4 Est. Patient 18:03:14 CDT Jonel Yeager [facility]-72642 Level 4 Est. Patient 13:24:53 CDT Jonel Yeager [facility]-99792 Level 4 Est. Patient 09:15:44 CDT Jonel Yeager [facility]-85711 Level 4 Est. Patient 19:16:01 CDT [facility]73559 Level 4 Est. Patient 11:25:16 CDT Jonel Hemphill MD [facility]-62290 Level 4 Est. Patient 09:00:40 CDT [facility]-96918 Level 4 Est. Patient 14:53:58 CDT Jonel Hemphill MD [facility]-86322 Level 4 Est. Patient 22:59:01 CDT Jonel Hemphill MD [facility]-76185 Level 4 Est. Patient 09:29:57 CDT Jonel Hemphill MD [facility]-00438 Level 4 Est. Patient 12:35:53 LEGAL PROJECT MANAGER Jonel Hemphill MD [facility]-21010 Level 4 Est. Patient 22:36:09 LEGAL PROJECT MANAGER Jonel Hemphill MD [facility]-30296 Level 2 Est. Patient 15:14:15 LEGAL PROJECT MANAGER Mayco Shah APRN [facility]-69015 Level 4 Est. Patient 10:36:22 LEGAL PROJECT MANAGER Jonel Hemphill MD [facility]-57647 Level 4 Est. Patient 22:01:13 LEGAL PROJECT MANAGER Jonel Hemphill MD [facility]-27229 Level 3 Est. Patient 21:50:37 LEGAL PROJECT MANAGER Jonel Hemphill MD [facility] CPT-03059 Level 4 Est. Patient 15:02:43 CDT Rubin Pierre MD [facility]-72558 Level 4 Est. Patient 14:27:35 CDT Jonel Hemphill MD [facility]-75929 Level 4 Est. Patient 12:41:17 CDT Jonel Hemphill MD [facility]-91670 Level 4 Est. Patient 16:18:55 CDT Jonel Hemphill MD [facility] CPT-50861 Level 4 Est. Patient 17:58:05 CDT Jonel Hemphill MD [facility] CPT-56399 Level 4 Est. Patient 22:10:06 CDT Jonel Hemphill MD [facility] CPT-74069 Level 4 Est. Patient 13:22:09 CDT Jonel Hemphill MD [facility] CPT-37647 Level 4 Est. Patient 22:52:17 LEGAL PROJECT MANAGER Jonel Hemphill MD [facility] CPT-58884 Level 3 Est. Patient 22:34:10 LEGAL PROJECT MANAGER Jonel Hemphill MD [facility] CPT-06903 Level 4 Est. Patient 07:49:20 LEGAL PROJECT MANAGER Jonel Hemphill MD [facility] Skilled CPT-72698 Level 3 Est. Patient 08:28:27 LEGAL PROJECT MANAGER Jonel Hemphill MD [facility] Procedures Code Procedure Name Date Entry Date Standard Description CPT-69904 Level 3 Correction 12:48:39 CDT CPT-73164 Level 3 Correction 17:39:14 CDT CPT-48430 Level 3 Correction 13:32:58 CDT CPT-99965 Level 3 Correction 17:43:43 CDT CPT-28534 Level 3 Correction 12:03:33 LEGAL PROJECT MANAGER CPT-43867 Level 3 Correction 18:47:28 LEGAL PROJECT MANAGER CPT-38663 Level 3 Correction 17:35:26 LEGAL PROJECT MANAGER CPT-52355 Level 3 Correction 18:44:49 LEGAL PROJECT MANAGER CPT-97690 Level 3 Correction 18:17:33 CDT CPT-75018 Level 3 Correction 09:25:33 CDT CPT-60055 Level 3 Correction 19:11:57 CDT CPT-09748 Level 3 Correction 09:25:52 CDT CPT-17475 Level 3 Correction 14:23:59 CDT CPT-01047 Level 3 Correction 12:09:43 CDT CPT-51480 Level 3 Correction 09:37:40 CDT CPT-06768 Level 3 Correction 18:23:02 CDT CPT-19110 Level 3 Correction 14:09:06 CDT CPT-69318 Level 3 Correction 12:43:27 LEGAL PROJECT MANAGER CPT-53368 Postop F/U Visit 14:10:15 LEGAL PROJECT MANAGER CPT-17690 [facility] Head [facility] Neck 17:07:14 LEGAL PROJECT MANAGER CPT-73627 Level 3 Correction 16:14:37 LEGAL PROJECT MANAGER CPT-17647 Port a cath flush 11:47:42 CDT CPT-21007 Port a cath flush 08:29:49 CDT CPT-OV Office Visit 14:27:58 LEGAL PROJECT MANAGER
--- OUTSIDE RECORDS SUMMARY | 2016-08-07 11:35 | XMS REPORT | Clinical Summary ---
Author Author Admin, [place] Organization [facility] Address Unknown Phone Unavailable Allergies, 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, MAINTENANCE CHIEF V58.69 Resolved Jonel Hemphill MD Long-term (current) [...] Coronary atherosclerosis of unspecified type of vessel, wainwright or graft FH DIABETES V18.0 Resolved Jonel [...] Coronary atherosclerosis of unspecified type of vessel, wainwright or graft CONSTIPATION 564.00 Resolved Jonel Hemphill [...] MD Dehydration RENAL FAILURE, ACUTE 584.9 Resolved Jnoel Hemphill MD Acute kidney failure, unspecified HYPERKALEMIA [...] Obstructive sleep apnea (adult) (pediatric) 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 USE, MAINTENANCE CHIEF ICD-V58.69 Inactive Jonel Hemphill MD DIABETES, TYPE [...] Hemphill MD LOOSE STOOLS ICD-787.91 Inactive Jonel eHmphill MD RENAL INSUFFICIENCY ICD-585.9 Inactive Jonel Hemphill [...] 1 tablet by mouth daily CITALOPRAM HYDROBROMIDE 80227642785 Active Marleni Romero Active ZOFRAN 4 MG TABS 1 po q6hr PRN Nausea ONDANSETRON HCL 90728028571 Active Jonel Hemphill MD Active XARELTO 20 MG ORAL TABS 1 daily RIVAROXABAN 83842123508 Active Jonel Hemphill MD Active JANUVIA 100 MG ORAL TABS 2 tabs daily SITAGLIPTIN PHOSPHATE 23752300765 Active Jonel Hemphill MD Active CELEXA 20 MG TABS Take 1 tablet 1x daily CITALOPRAM HYDROBROMIDE 54819489028 No Longer Active Jonel Hemphill MD Active ATIVAN 0.5 MG TABS Take 1 tablet 2x daily PRN LORAZEPAM 76915661920 No Longer Active Jonel Hemphill MD Active FUROSEMIDE 80 MG ORAL TABS 1 daily FUROSEMIDE 71058122906 Active Jonel Hemphill MD Active MECLIZINE HCL 25 MG CHEW TAB 1 four times a day as needed for dizziness 02/21 MECLIZINE HCL 22313206305 No Longer Active Jonel Hemphill MD Active ZYLOPRIM 300 MG TAB 1 BY MOUTH DAILY ALLOPURINOL 79515184585 No Longer Active Jonel Hemphill MD Active METOPROLOL TARTRATE 50 MG ORAL TABS 1 TAB BY MOUTH TWICE DAILY METOPROLOL TARTRATE 13972761781 No Longer Active Jonel Hemphill MD Active GABAPENTIN 400 MG ORAL CAPS 1 TAB BY MOUTH THREE TIMES DAILY 2015 GABAPENTIN 23280678047 No Longer Active Jonel Hemphill MD Active ULORIC 40 MG ORAL TABS 1 daily for gout. FEBUXOSTAT 98383747285 Active Marleni Romero Active HYDROCODONE-ACETAMINOPHEN 7.5-325 MG TABS 1 TAB PO Q 6 HRS PRN HYDROCODONE-ACETAMINOPHEN 82020140435 Active Jonel Hemphill MD Active METFORMIN HCL 1000 MG TABS 1 tablet by mouth twice daily METFORMIN HCL 62217534644 Active Marleni Romero Active FENTANYL 12 MCG/HR PT72 Apply to clean, dry skin and change every 72 hours FENTANYL 96338000693 Active Jonel Hemphill MD Active KLOR-CON 20 MEQ ORAL PACK 1 BY MOUTH DAILY POTASSIUM CHLORIDE 48572650164 Active Marleni Romero Active A+D FIRST AID EXT OINT APPLY OINTMENT AND RUFINO WRAPS TO LOWER EXTEREMETIES DAILY SKIN PROTECTANTS, MISC. 87018676317 Active Jonel Hemphill MD Active NYSTATIN 278814 UNIT/GM EXT OINT APPLY PRN TID TO GAULDING/RASH IN ABDOMINAL FOLDS NYSTATIN 76941690113 Active Jonel Hemphill MD Active GABAPENTIN 300 MG CAPS 1 CAP PO TID GABAPENTIN 90590239546 No Longer Active Jonel Hemphill MD Active DILANTIN 100 MG ORAL CAPS 1 THREE TIMES DAILY FOR SEIZURES PHENYTOIN SODIUM EXTENDED 00144304691 Active Marleni Tenoriokristin Active CPAP APPLY AT HS CPAP Active Jonel Hemphill MD Active LISINOPRIL 40 MG TABS 1 tablet by mouth twice daily, for blood pressure 03/31 LISINOPRIL 24180685701 Active Jonel Hemphill MD Active BUPROPION HCL ER (SR) 150 MG [id number] 1 twice a day for depression BUPROPION HCL 58267180471 Active Jonel Hemphill MD Active MULTIVITAMINS CAPS 1 DAILY MULTIPLE VITAMIN 31154260769 Active Jonel Hemphill MD Active HYDROCODONE-ACETAMINOPHEN 7.5-325 MG TABS 1 q 6 hrs prn HYDROCODONE-ACETAMINOPHEN 33167564630 No Longer Active Jonel Hemphill MD Active DILANTIN 100 MG CAPS 3 cap tid PHENYTOIN SODIUM EXTENDED 87282814549 No Longer Active Jonel Hemphill MD Active BUDEPRION SR 150 MG [id number] 1 bid BUPROPION HCL 79037220398 No Longer Active Jonel Hemphill MD Active ALLOPURINOL 300 MG TABS 1 qd ALLOPURINOL 63944546836 No Longer Active Jonel Hemphill MD Active COZAAR 100 MG TABS 1 qd LOSARTAN POTASSIUM 87873706200 No Longer Active Jonel Hemphill MD Active CVS VITAMIN C 500 MG TABS 1 po daily ASCORBIC ACID 95711305097 No Longer Active Jonel Hemphill MD Active MIRALAX POWD 17 gms in 4 oz water or juice daily POLYETHYLENE GLYCOL 3350 74782039231 No Longer Active Jonel Hemphill MD Active POTASSIUM CHLORIDE CHELA ER 20 MEQ CR-TABS 1 tab PO daily POTASSIUM CHLORIDE CHELA CR 14728308265 No Longer Active Jonel Hemphill MD Active AMBIEN 10 MG TAB 1 tab by mouth at bedtime as needed for sleep ZOLPIDEM TARTRATE 50699796943 No Longer Active Jonel Hemphill MD Active SULFAMETHOXAZOLE-TMP DS 800-160 MG TABS 1 TAB PO BID SULFAMETHOXAZOLE-TRIMETHOPRIM 99261988862 No Longer Active Jonel Hemphill MD Active NORCO 5-325 MG TABS 1-2 TAB Q 6 HRS PRN HYDROCODONE- ACETAMINOPHEN 89422524894 Active Jonel Hemphill MD Active LEVEMIR 100 UNIT/ML SOLN 5 units sub-q at bedtime INSULIN DETEMIR 37368951863 No Longer Active Tova Perez Active MOBIC 15 MG TABS 1 tab PO daily for arthritis pain MELOXICAM 76748505208 No Longer Active Tova Perez Active GLUCAGEN 1 MG SOLR INJECT 1MG IM IF BS LESS THAN 60 & RES. IS UNABLE TO SWALLOW GLUCAGON HCL (RDNA) 49843000201 No Longer Active Tova Perez Active CVS MILK OF MAGNESIA 1200 MG/15ML SUSP 30 ml daily for constipation MAGNESIUM HYDROXIDE 87075682860 No Longer Active Tova Perez Active IMDUR 120 MG SN29T-THY 1 qd ISOSORBIDE MONONITRATE 24888748540 No Longer Active Tova Perez Active PHENYTOIN 50 MG CHEW 1 TAB PO BID PHENYTOIN 55166852893 Active Tova Perez Active NEURONTIN 400 MG CAPS Take one by mouth 3 times daily, morning, afternoon and evening.] GABAPENTIN 24541613614 No Longer Active Tova Perez Active ANTIVERT 25 MG TABS 1 q 6 hrs prn MECLIZINE HCL 97354419920 No Longer Active Jonel Hemphill MD Active CLONIDINE HCL 0.2 MG TABS 1 q 8 hrs as needed -greater than 160-htn CLONIDINE HCL 38762148637 No Longer Active Jonel Hemphill MD Active AMBIEN 10 MG TABS 1 q hs prn ZOLPIDEM TARTRATE 50486511354 No Longer Active Jonel Hemphill MD Active GNP THERAPEUTIC-M TABS 1 qd MULTIPLE VITAMINS- MINERALS 57294648751 No Longer Active Jonel Hemphill MD Active METOPROLOL TARTRATE 50 MG TABS 1 bid METOPROLOL TARTRATE 14862743069 No Longer Active Jonel Hemphill MD Active METFORMIN HCL 500 MG TABS 1 bod with food METFORMIN HCL 26223435158 No Longer Active Jonel Hemphill MD Active LISINOPRIL 40 MG TABS 1 qd LISINOPRIL 08731262906 No Longer Active Jonel Hemphill MD Active HYDROCHLOROTHIAZIDE 25 MG TABS 1 qd HYDROCHLOROTHIAZIDE 10032336868 No Longer Active Jonel Hemphill MD Active DURAGESIC-25 25 MCG/HR PT72 place 1 patch on the skin q72hrs for pain FENTANYL 17302917928 No Longer Active Jonel Hemphill MD Active FENTANYL 75 MCG/HR PT72 place 1 patch on skin q72hrs fr pain 2012 FENTANYL 50005494311 No Longer Active Jonel Hemphill MD Active FUROSEMIDE 40 MG TABS 1 q am FUROSEMIDE 54491230109 No Longer Active Jonel Hemphill MD Active HEPARIN (PORCINE) LOCK FLUSH 100 UNIT/ML SOLN Flush port a cath monthly every three week on with Heparin and NS HEPARIN LOCK FLUSH 18637874189 Active Jonel Hemphill MD Active FENTANYL 100 MCG/HR PT72 Apply every 3 days FENTANYL 92061894572 Active Jonel Hemphill MD Active FENTANYL 25 MCG/HR PT72 Apply to clean skin and change every 72 hours. 07/03 FENTANYL 54192702971 No Longer Active Jonel Hemphill MD Active FENTANYL 50 MCG/HR PT72 place 1 patch on skin q72 hours FENTANYL 52572881736 No Longer Active Mayco Shah APRN Active DURAGESIC-12 12 MCG/HR PT72 APPLY PATCH TO SKIN AND CHANGE EVERY 72 HOURS, ROTATE SITES FENTANYL 37751556712 No Longer Active Fozia HERNANDEZ Active FUROSEMIDE 20 MG TABS 1 qd FUROSEMIDE 96997404989 No Longer Active Mahogany Bolivar Active ADULT ASPIRIN EC LOW STRENGTH 81 MG TBEC 1 qd ASPIRIN 07069223356 Active MARY Perez Active FUROSEMIDE 20 MG TABS 1 qd FUROSEMIDE 20 MG TABS 898131 FUROSEMIDE Inactive DURAGESIC-12 12 MCG/HR PT72 APPLY PATCH TO SKIN AND CHANGE EVERY 72 HOURS, ROTATE SITES DURAGESIC-12 12 MCG/HR PT72 394118 FENTANYL Inactive FENTANYL 50 MCG/HR PT72 place 1 patch on skin q72 hours FENTANYL 50 MCG/HR PT72 596061 FENTANYL Inactive FUROSEMIDE 40 MG TABS 1 q am FUROSEMIDE 40 MG TABS 263093 FUROSEMIDE Inactive FENTANYL 75 MCG/HR PT72 place 1 patch on skin q72hrs fr pain 2012 FENTANYL 75 MCG/HR PT72 053205 FENTANYL Inactive DURAGESIC-25 25 MCG/HR PT72 place 1 patch on the skin q72hrs for pain DURAGESIC-25 25 MCG/HR PT72 670858 FENTANYL Inactive HYDROCHLOROTHIAZIDE 25 MG TABS 1 qd HYDROCHLOROTHIAZIDE 25 MG TABS 948387 HYDROCHLOROTHIAZIDE Inactive LISINOPRIL 40 MG TABS 1 qd LISINOPRIL 40 MG TABS 551386 LISINOPRIL Inactive METFORMIN HCL 500 MG TABS 1 bod with food METFORMIN HCL 500 MG TABS 082556 METFORMIN HCL Inactive METOPROLOL TARTRATE 50 MG TABS 1 bid METOPROLOL TARTRATE 50 MG TABS 894858 METOPROLOL TARTRATE Inactive GNP THERAPEUTIC-M TABS 1 qd GNP THERAPEUTIC-M TABS MULTIPLE VITAMINS-MINERALS Inactive AMBIEN 10 MG TABS 1 q hs prn AMBIEN 10 MG TABS 877854 ZOLPIDEM TARTRATE Inactive CLONIDINE HCL 0.2 MG TABS 1 q 8 hrs as needed -greater than 160-htn CLONIDINE HCL 0.2 MG TABS 361168 CLONIDINE HCL Inactive ANTIVERT 25 MG TABS 1 q 6 hrs prn ANTIVERT 25 MG TABS MECLIZINE HCL Inactive NEURONTIN 400 MG CAPS Take one by mouth 3 times daily, morning, afternoon and evening.] NEURONTIN 400 MG CAPS 291217 GABAPENTIN Inactive IMDUR 120 MG [id number] 1 qd IMDUR 120 MG [id number] ISOSORBIDE MONONITRATE Inactive CVS MILK OF MAGNESIA [...] for arthritis pain MOBIC 15 MG TABS 470978 MELOXICAM Inactive LEVEMIR 100 UNIT/ML SOLN 5 units sub-q at bedtime LEVEMIR 100 UNIT/ML SOLN INSULIN DETEMIR Inactive SULFAMETHOXAZOLE-TMP DS 800-160 MG TABS 1 TAB PO BID SULFAMETHOXAZOLE-TMP DS 800-160 MG TABS 953514 SULFAMETHOXAZOLE-TRIMETHOPRIM Inactive AMBIEN 10 MG TAB 1 tab by mouth at bedtime as needed for sleep AMBIEN 10 MG TAB 505214 ZOLPIDEM TARTRATE Inactive POTASSIUM CHLORIDE CHELA ER 20 MEQ CR-TABS 1 tab PO daily POTASSIUM CHLORIDE CHELA ER 20 MEQ CR-TABS POTASSIUM CHLORIDE CHELA CR Inactive MIRALAX POWD 17 gms in 4 oz water or juice daily MIRALAX POWD 704977 POLYETHYLENE GLYCOL 3350 Inactive CVS VITAMIN C 500 MG TABS 1 po daily CVS VITAMIN C 500 MG TABS 715346 ASCORBIC ACID Inactive COZAAR 100 MG TABS 1 qd COZAAR 100 MG TABS 237872 LOSARTAN POTASSIUM Inactive ALLOPURINOL 300 MG TABS 1 qd ALLOPURINOL 300 MG TABS 027280 ALLOPURINOL Inactive BUDEPRION SR 150 MG [id number] 1 bid BUDEPRION SR 150 MG [id number] BUPROPION HCL Inactive DILANTIN 100 MG CAPS 3 cap tid DILANTIN 100 MG CAPS 232122 PHENYTOIN SODIUM EXTENDED Inactive HYDROCODONE-ACETAMINOPHEN 7.5-325 MG TABS 1 q 6 hrs prn HYDROCODONE-ACETAMINOPHEN 7.5-325 MG TABS 300751 HYDROCODONE- ACETAMINOPHEN Inactive GABAPENTIN 300 MG CAPS 1 CAP PO TID GABAPENTIN 300 MG CAPS 846208 GABAPENTIN Inactive GABAPENTIN 400 MG ORAL CAPS 1 TAB BY MOUTH THREE TIMES DAILY 2015 GABAPENTIN 400 MG ORAL CAPS 966883 GABAPENTIN Inactive METOPROLOL TARTRATE 50 MG ORAL TABS 1 TAB BY MOUTH TWICE DAILY METOPROLOL TARTRATE 50 MG ORAL TABS 976417 METOPROLOL TARTRATE Inactive ZYLOPRIM 300 MG TAB 1 BY MOUTH DAILY ZYLOPRIM 300 MG TAB 180731 ALLOPURINOL Inactive MECLIZINE HCL 25 MG CHEW TAB 1 four times a day as needed for dizziness 02/21 MECLIZINE HCL 25 MG CHEW TAB 619189 MECLIZINE HCL Inactive ATIVAN 0.5 MG TABS Take 1 tablet 2x daily PRN ATIVAN 0.5 MG TABS 473452 LORAZEPAM Inactive CELEXA 20 MG TABS Take 1 tablet 1x daily CELEXA 20 MG TABS 052183 CITALOPRAM HYDROBROMIDE Inactive FENTANYL 25 MCG/HR PT72 Apply to clean skin and change every 72 hours. 07/03 FENTANYL 25 MCG/HR PT72 625859 FENTANYL Inactive Advance Directives Directive Description Start [...] 10*3/mm3 Encounters Code Encounter Date Provider Facility CPT-41428 Level 3 Est. Patient 19:05:03 CDT Jonel Hemphill MD [facility] CPT-01833 Level 3 Est. Patient 17:30:47 CDT Kevin Link MD [facility] CPT-78537 Level 3 Est. Patient 18:04:07 CDT Jonel Hemphill MD [facility] CPT-98498 Level 3 Est. Patient 17:18:03 CDT Jonel Hemphill MD [facility] CPT-89398 Level 3 Est. Patient 21:58:03 MACHINERY MECHANIC Jonel Hemphill MD [facility] CPT-92395 Level 4 Est. Patient 18:03:14 CDT Jonel Hemphill MD [facility]-96660 Level 4 Est. Patient 13:24:53 CDT Jonel Hemphill MD [facility]-93631 Level 4 Est. Patient 09:15:44 CDT Jonel Hemphill MD [facility]-04408 Level 4 Est. Patient 19:16:01 CDT Jonel Hemphill MD [facility]-03935 Level 4 Est. Patient 11:25:16 CDT Jonel eHmphill MD [facility] CPT-37277 Level 4 Est. Patient 09:00:40 CDT Jonel Hemphill MD [facility]-14935 Level 4 Est. Patient 14:53:58 CDT Jonel Hemphill MD [facility] CPT-93780 Level 4 Est. Patient 22:59:01 CDT Jonel Hemphill MD [facility]-89955 Level 4 Est. Patient 09:29:57 CDT Jonel Hemphill MD [facility]-42540 Level 4 Est. Patient 12:35:53 MACHINERY MECHANIC Jonel Hemphill MD [facility]-55097 Level 4 Est. Patient 22:36:09 MACHINERY MECHANIC Jonel Hemphill MD [facility]-50703 Level 2 Est. Patient 15:14:15 MACHINERY MECHANIC Mayco Shah APRN [facility] CPT-65130 Level 4 Est. Patient 10:36:22 MACHINERY MECHANIC Jonel Hemphill MD [facility] CPT-02523 Level 4 Est. Patient 22:01:13 MACHINERY MECHANIC Jonel Hemphill MD [facility]-45406 Level 3 Est. Patient 21:50:37 MACHINERY MECHANIC Jonel Hemphill MD [facility] CPT-75939 Level 4 Est. Patient 15:02:43 CDT Rubin Pierre MD [facility] CPT-48828 Level 4 Est. Patient 14:27:35 CDT Jonel Hemphill MD [facility]-56480 Level 4 Est. Patient 12:41:17 CDT Jonel Hemphill MD [facility]-02991 Level 4 Est. Patient 16:18:55 CDT Jonel Hemphill MD [facility]-58218 Level 4 Est. Patient 17:58:05 CDT Jonel Hemphill MD [facility]-59680 Level 4 Est. Patient 22:10:06 CDT Jonel Hemphill MD [facility] CPT-29001 Level 4 Est. Patient 13:22:09 CDT Jonel Hemphill MD [facility]-14558 Level 4 Est. Patient 22:52:17 MACHINERY MECHANIC Jonel Hemphill MD [facility]-74992 Level 3 Est. Patient 22:34:10 MACHINERY MECHANIC Jonel Hemphill MD [facility]-22276 Level 4 Est. Patient 07:49:20 MACHINERY MECHANIC Jonel Hemphill MD [facility] Skilled CPT-91082 Level 3 Est. Patient 08:28:27 MACHINERY MECHANIC Jonel Hemphill MD [facility] Procedures Code Procedure Name Date Entry Date Standard Description CPT-11736 Level 3 Residential 08:18:30 CDT CPT-84098 Level 3 Residential 19:03:14 CDT CPT-42442 Level 3 Residential 17:42:11 CDT CPT-79733 Level 3 Residential 16:04:10 CDT CPT-42166 Level 3 Residential 19:38:15 MACHINERY MECHANIC CPT-66032 Level 3 Residential 19:28:48 MACHINERY MECHANIC CPT-30304 Level 3 Residential 18:02:20 MACHINERY MECHANIC CPT-69318 Level 3 Residential 15:02:14 MACHINERY MECHANIC CPT-31958 Level 3 Residential 12:25:37 CDT CPT-04511 Level 3 Residential 12:48:39 CDT CPT-87400 Level 3 Residential 17:39:14 CDT CPT-62500 Level 3 Residential 13:32:58 CDT CPT-61091 Level 3 Residential 17:43:43 CDT CPT-09326 Level 3 Residential 12:03:33 MACHINERY MECHANIC CPT-44364 Level 3 Residential 18:47:28 MACHINERY MECHANIC CPT-32596 Level 3 Residential 17:35:26 MACHINERY MECHANIC CPT-41957 Level 3 Residential 18:44:49 MACHINERY MECHANIC CPT-21383 Level 3 Residential 18:17:33 CDT CPT-38517 Level 3 Residential 09:25:33 CDT CPT-96584 Level 3 Residential 19:11:57 CDT CPT-89365 Level 3 Residential 09:25:52 CDT CPT-32154 Level 3 Residential 14:23:59 CDT CPT-13547 Level 3 Residential 12:09:43 CDT CPT-36964 Level 3 Residential 09:37:40 CDT CPT-60918 Level 3 Residential 18:23:02 CDT CPT-79272 Level 3 Residential 14:09:06 CDT CPT-98785 Level 3 Residential 12:43:27 MACHINERY MECHANIC CPT-16164 Postop F/U Visit 14:10:15 MACHINERY MECHANIC CPT-19156 [facility] 17:07:14 MACHINERY MECHANIC CPT-98827 Level 3 Residential 16:14:37 MACHINERY MECHANIC CPT-35488 Port a cath flush 11:47:42 CDT CPT-88001 Port a cath flush 08:29:49 CDT CPT-OV Office Visit 14:27:58 MACHINERY MECHANIC
--- OUTSIDE RECORDS SUMMARY | 2016-08-07 11:36 | XMS REPORT | Clinical Summary ---
Author Author Admin, KARLAE Organization [facility] Address Unknown Phone Unavailable Allergies, Adverse Reactions, Alerts Allergy Name Reaction Description Start Date Severity Status Provider PENICILLIN Critical Active Rienzijaida Giles RMA Conditions or Problems Problem Name 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, DRYWALL APPLICATOR V58.69 Resolved Jonel Hemphill MD Long-term (current) [...] Coronary atherosclerosis of unspecified type of vessel, ione or graft FH DIABETES V18.0 Resolved Jonel [...] Coronary atherosclerosis of unspecified type of vessel, ione or graft CONSTIPATION 564.00 Resolved Jonel Hemphill [...] involving pelvic region and thigh 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 USE, JAIL ICD-V58.69 Inactive Jonel Hemphill MD DIABETES, TYPE [...] TIMES DAILY FOR SEIZURES PHENYTOIN SODIUM EXTENDED 43181451743 Active Marleni Romero Active CPAP APPLY AT HS CPAP Active Jonel Hemphill MD Active METOPROLOL TARTRATE 50 MG ORAL TABS 1 TAB BY MOUTH TWICE DAILY METOPROLOL TARTRATE 77812492375 Active Jonel Hemphill MD Active LISINOPRIL 40 MG TABS 1 tablet by mouth twice daily, for blood pressure 03/31 LISINOPRIL 56490072113 Active Jonel Hemphill MD Active BUPROPION HCL ER (SR) 150 MG [id number] 1 twice a day for depression BUPROPION HCL 01588562298 Active Jonel Hemphill MD Active MULTIVITAMINS CAPS 1 DAILY MULTIPLE VITAMIN 07226312244 Active Jonel Hemphill MD Active ZYLOPRIM 300 MG TAB 1 BY MOUTH DAILY ALLOPURINOL 90740843555 Active Jonel Hemphill MD Active HYDROCODONE-ACETAMINOPHEN 7.5-325 MG TABS 1 q 6 hrs prn HYDROCODONE-ACETAMINOPHEN 38859959601 No Longer Active Jonel Hemphill MD Active DILANTIN 100 MG CAPS 3 cap tid PHENYTOIN SODIUM EXTENDED 48825068705 No Longer Active Jonel Hemphill MD Active BUDEPRION SR 150 MG [id number] 1 bid BUPROPION HCL 25596557738 No Longer Active Jonel Hemphill MD Active ALLOPURINOL 300 MG TABS 1 qd ALLOPURINOL 76022009157 No Longer Active Jonel Hemphill MD Active COZAAR 100 MG TABS 1 qd LOSARTAN POTASSIUM 02301861751 No Longer Active Jonel Hemphill MD Active CVS VITAMIN C 500 MG TABS 1 po daily ASCORBIC ACID 52351124527 No Longer Active Jonel Hemphill MD Active MIRALAX POWD 17 gms in 4 oz water or juice daily POLYETHYLENE GLYCOL 3350 34263590826 No Longer Active Jonel Hemphill MD Active POTASSIUM CHLORIDE CHELA ER 20 MEQ CR-TABS 1 tab PO daily POTASSIUM CHLORIDE CHELA CR 69834090815 No Longer Active Jonel Hemphill MD Active AMBIEN 10 MG TAB 1 tab by mouth at bedtime as needed for sleep ZOLPIDEM TARTRATE 23848459248 No Longer Active Jonel Hemphill MD Active SULFAMETHOXAZOLE-TMP DS 800-160 MG TABS 1 TAB PO BID SULFAMETHOXAZOLE-TRIMETHOPRIM 37520080337 No Longer Active Jonel Hemphill MD Active NORCO 5-325 MG TABS 1-2 TAB Q 6 HRS PRN HYDROCODONE- ACETAMINOPHEN 48252812402 Active Jonel Hemphill MD Active LEVEMIR 100 UNIT/ML SOLN 5 units sub-q at bedtime INSULIN DETEMIR 70266205689 No Longer Active Tova Perez Active MOBIC 15 MG TABS 1 tab PO daily for arthritis pain MELOXICAM 46121607644 No Longer Active Tova Chris Active GLUCAGEN 1 MG SOLR INJECT 1MG IM IF BS LESS THAN 60 & RES. IS UNABLE TO SWALLOW GLUCAGON HCL (RDNA) 68489346831 No Longer Active Tova Chris Active CVS MILK OF MAGNESIA 1200 MG/15ML SUSP 30 ml daily for constipation MAGNESIUM HYDROXIDE 15424270596 No Longer Active Tova Chris Active IMDUR 120 MG [id number] 1 qd ISOSORBIDE MONONITRATE 43278757770 No Longer Active Tova Chris Active METFORMIN HCL 500 MG TABS 1 tablet by mouth twice daily METFORMIN HCL 92472177329 Active Tova Chris Active PHENYTOIN 50 MG CHEW 1 TAB PO BID PHENYTOIN 97006610463 Active Tova Chris Active MECLIZINE HCL 25 MG CHEW TAB 1 four times a day as needed for dizziness 02/21 MECLIZINE HCL 22666374313 Active Tova ePrez Active GABAPENTIN 300 MG CAPS 1 CAP PO TID GABAPENTIN 06965719558 Active Tova Perez Active NEURONTIN 400 MG CAPS Take one by mouth 3 times daily, morning, afternoon and evening.] GABAPENTIN 99679649611 No Longer Active Tova Perez Active ANTIVERT 25 MG TABS 1 q 6 hrs prn MECLIZINE HCL 43743804719 No Longer Active Jonel Hemphill MD Active CLONIDINE HCL 0.2 MG TABS 1 q 8 hrs as needed -greater than 160-htn CLONIDINE HCL 90189676738 No Longer Active Jonel Hemphill MD Active AMBIEN 10 MG TABS 1 q hs prn ZOLPIDEM TARTRATE 00362456839 No Longer Active Jonel Hemphill MD Active GNP THERAPEUTIC-M TABS 1 qd MULTIPLE VITAMINS- MINERALS 93133805590 No Longer Active Jonel Hemphill MD Active METOPROLOL TARTRATE 50 MG TABS 1 bid METOPROLOL TARTRATE 32371793711 No Longer Active Jonel Hemphill MD Active METFORMIN HCL 500 MG TABS 1 bod with food METFORMIN HCL 55111307127 No Longer Active Jonel Hemphill MD Active LISINOPRIL 40 MG TABS 1 qd LISINOPRIL 65968686696 No Longer Active Jonel Hemphill MD Active HYDROCHLOROTHIAZIDE 25 MG TABS 1 qd HYDROCHLOROTHIAZIDE 92173995623 No Longer Active Jonel Hemphill MD Active DURAGESIC-25 25 MCG/HR PT72 place 1 patch on the skin q72hrs for pain FENTANYL 22947681019 No Longer Active Jonel Hemphill MD Active FENTANYL 75 MCG/HR PT72 place 1 patch on skin q72hrs fr pain 2012 FENTANYL 67312733844 No Longer Active Jonel Hemphill MD Active LASIX 20 MG TABS 1 tab PO q morning FUROSEMIDE 18995932250 Active Jonel Hemphill MD Active FUROSEMIDE 40 MG TABS 1 q am FUROSEMIDE 19988210797 No Longer Active Jonel Hemphill MD Active HEPARIN (PORCINE) LOCK FLUSH 100 UNIT/ML SOLN Flush port a cath monthly every three week on with Heparin and NS HEPARIN LOCK FLUSH 57102223602 Active Jonel Hemphill MD Active FENTANYL 100 MCG/HR PT72 Apply every 3 days FENTANYL 88154211707 Active Jonel Hemphill MD Active FENTANYL 25 MCG/HR PT72 Apply to clean skin and change every 72 hours. 07/03 FENTANYL 31060805375 No Longer Active Jonel Hemphill MD Active FENTANYL 50 MCG/HR PT72 place 1 patch on skin q72 hours FENTANYL 27088359804 No Longer Active Mayco Shah APRN Active ATIVAN 0.5 MG TABS Take 1 tablet 2x daily LORAZEPAM 97674550002 Active Jonel Hemphill MD Active CELEXA 20 MG TABS Take 1 tablet 1x daily CITALOPRAM HYDROBROMIDE 75333244452 Active Jonel Hemphill MD Active DURAGESIC-12 12 MCG/HR PT72 APPLY PATCH TO SKIN AND CHANGE EVERY 72 HOURS, ROTATE SITES FENTANYL 23540107541 No Longer Active Fozia HERNANDEZ Active FUROSEMIDE 20 MG TABS 1 qd FUROSEMIDE 13811166911 No Longer Active Mahogany Bolivar Active ADULT ASPIRIN EC LOW STRENGTH 81 MG TBEC 1 qd ASPIRIN 64754701521 Active MARY Perez Active FUROSEMIDE 20 MG TABS 1 qd FUROSEMIDE 20 MG TABS 503041 FUROSEMIDE Inactive DURAGESIC-12 12 MCG/HR PT72 APPLY PATCH TO SKIN AND CHANGE EVERY 72 HOURS, ROTATE SITES DURAGESIC-12 12 MCG/HR PT72 966017 FENTANYL Inactive FENTANYL 50 MCG/HR PT72 place 1 patch on skin q72 hours FENTANYL 50 MCG/HR PT72 263944 FENTANYL Inactive FUROSEMIDE 40 MG TABS 1 q am FUROSEMIDE 40 MG TABS 666129 FUROSEMIDE Inactive FENTANYL 75 MCG/HR PT72 place 1 patch on skin q72hrs fr pain 2012 FENTANYL 75 MCG/HR PT72 567333 FENTANYL Inactive DURAGESIC-25 25 MCG/HR PT72 place 1 patch on the skin q72hrs for pain DURAGESIC-25 25 MCG/HR PT72 451434 FENTANYL Inactive HYDROCHLOROTHIAZIDE 25 MG TABS 1 qd HYDROCHLOROTHIAZIDE 25 MG TABS 868735 HYDROCHLOROTHIAZIDE Inactive LISINOPRIL 40 MG TABS 1 qd LISINOPRIL 40 MG TABS 917346 LISINOPRIL Inactive METFORMIN HCL 500 MG TABS 1 bod with food METFORMIN HCL 500 MG TABS 698982 METFORMIN HCL Inactive METOPROLOL TARTRATE 50 MG TABS 1 bid METOPROLOL TARTRATE 50 MG TABS 399559 METOPROLOL TARTRATE Inactive GNP THERAPEUTIC-M TABS 1 qd GNP THERAPEUTIC-M TABS MULTIPLE VITAMINS-MINERALS Inactive AMBIEN 10 MG TABS 1 q hs prn AMBIEN 10 MG TABS 698988 ZOLPIDEM TARTRATE Inactive CLONIDINE HCL 0.2 MG TABS 1 q 8 hrs as needed -greater than 160-htn CLONIDINE HCL 0.2 MG TABS 497294 CLONIDINE HCL Inactive ANTIVERT 25 MG TABS 1 q 6 hrs prn ANTIVERT 25 MG TABS MECLIZINE HCL Inactive NEURONTIN 400 MG CAPS Take one by mouth 3 times daily, morning, afternoon and evening.] NEURONTIN 400 MG CAPS 091638 GABAPENTIN Inactive IMDUR 120 MG [id number] 1 qd IMDUR 120 MG [id number] ISOSORBIDE MONONITRATE Inactive CVS MILK OF MAGNESIA [...] for arthritis pain MOBIC 15 MG TABS 506919 MELOXICAM Inactive LEVEMIR 100 UNIT/ML SOLN 5 units sub-q at bedtime LEVEMIR 100 UNIT/ML SOLN INSULIN DETEMIR Inactive SULFAMETHOXAZOLE-TMP DS 800-160 MG TABS 1 TAB PO BID SULFAMETHOXAZOLE-TMP DS 800-160 MG TABS SULFAMETHOXAZOLE-TRIMETHOPRIM Inactive AMBIEN 10 MG TAB 1 tab by mouth at bedtime as needed for sleep AMBIEN 10 MG TAB 010531 ZOLPIDEM TARTRATE Inactive POTASSIUM CHLORIDE CHELA ER 20 MEQ CR-TABS 1 tab PO daily POTASSIUM CHLORIDE CHELA ER 20 MEQ CR-TABS POTASSIUM CHLORIDE CHELA CR Inactive MIRALAX POWD 17 gms in 4 oz water or juice daily MIRALAX POWD 136040 POLYETHYLENE GLYCOL 3350 Inactive CVS VITAMIN C 500 MG TABS 1 po daily CVS VITAMIN C 500 MG TABS 088797 ASCORBIC ACID Inactive COZAAR 100 MG TABS 1 qd COZAAR 100 MG TABS 865196 LOSARTAN POTASSIUM Inactive ALLOPURINOL 300 MG TABS 1 qd ALLOPURINOL 300 MG TABS 025129 ALLOPURINOL Inactive BUDEPRION SR 150 MG [id number] 1 bid BUDEPRION SR 150 MG [id number] BUPROPION HCL Inactive DILANTIN 100 MG CAPS 3 cap tid DILANTIN 100 MG CAPS 205075 PHENYTOIN SODIUM EXTENDED Inactive HYDROCODONE-ACETAMINOPHEN 7.5-325 MG TABS 1 q 6 hrs prn HYDROCODONE-ACETAMINOPHEN 7.5-325 MG TABS 856389 HYDROCODONE- ACETAMINOPHEN Inactive FENTANYL 25 MCG/HR PT72 Apply to clean skin and change every 72 hours. 07/03 FENTANYL 25 MCG/HR PT72 161431 FENTANYL Inactive Advance Directives Directive Description Start [...] A/B - Chemistry sodium, serum 142 mmol/L 400-820 0545/01/20 potassium, serum 3.9 mmol/L 3.5-5.2 chloride, serum [...] 4.3-6.0 Encounters Code Encounter Date Provider Facility CPT-91509 Level 3 Est. Patient 18:04:07 CDT Jonel Hemphill MD [facility] CPT-29818 Level 3 Est. Patient 17:18:03 CDT Jonel Hemphill MD [facility] CPT-94755 Level 3 Est. 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 Patient 18:03:14 CDT Jonel Yeager [facility]-01450 Level 4 Est. Patient 13:24:53 CDT Jonel Yeager [facility]-38775 Level 4 Est. Patient 09:15:44 CDT Jonel Yeager [facility]-17200 Level 4 Est. Patient 19:16:01 CDT Jonel Yeager [facility]-07623 Level 4 Est. Patient 11:25:16 CDT Jonel Hemphill MD [facility] CPT-93584 Level 4 Est. Patient 09:00:40 CDT Jonel Yeager [facility] [place] CPT-60055 Level 4 Est. Patient 14:53:58 CDT Jonel Hemphill MD [facility] CPT-84008 Level 4 Est. Patient 22:59:01 CDT Jonel Hemphill MD [facility]-77035 Level 4 Est. Patient 09:29:57 CDT Jonel Hemphill MD [facility]-86428 Level 4 Est. Patient 12:35:53 GRAB DRIVER Jonel Hemphill MD [facility]-78715 Level 4 Est. Patient 22:36:09 GRAB DRIVER Jonel Hemphill MD [facility]-29562 Level 2 Est. Patient 15:14:15 GRAB DRIVER Mayoc Shah APRN [facility] CPT-81725 Level 4 Est. Patient 10:36:22 GRAB DRIVER Jonel Hemphill MD [facility]-36653 Level 4 Est. Patient 22:01:13 GRAB DRIVER Jonel Hemphill MD [facility]-63413 Level 3 Est. Patient 21:50:37 GRAB DRIVER Jonel Hemphill MD [facility]-81747 Level 4 Est. Patient 15:02:43 CDT Rubin Pierre MD [facility] CPT-59496 Level 4 Est. Patient 14:27:35 CDT Jonel Hemphill MD [facility]-94314 Level 4 Est. Patient 12:41:17 CDT Jonel Hemphill MD [facility]-72915 Level 4 Est. Patient 16:18:55 CDT Jonel Hemphill MD [facility]-77954 Level 4 Est. Patient 17:58:05 CDT Jonel Hemphill MD [facility]-27330 Level 4 Est. Patient 22:10:06 CDT Jonel Hemphill MD [facility]-78000 Level 4 Est. Patient 13:22:09 CDT Jonel Hemphill MD [facility] CPT-82150 Level 4 Est. Patient 22:52:17 GRAB DRIVER Jonel Hemphill MD [facility] CPT-41382 Level 3 Est. Patient 22:34:10 GRAB DRIVER Jonel Hemphill MD [facility] CPT-82069 Level 4 Est. Patient 07:49:20 GRAB DRIVER Jonel Hemphill MD [facility] Skilled CPT-87381 Level 3 Est. Patient 08:28:27 GRAB DRIVER Jonel Hemphill MD [facility] Procedures Code Procedure Name Date Entry Date Standard Description CPT-28544 Level 3 [facility] 13:32:58 CDT CPT-13112 Level 3 [facility] 17:43:43 CDT CPT-72700 Level 3 [facility] 12:03:33 GRAB DRIVER CPT-47462 Level 3 [facility] 18:47:28 GRAB DRIVER CPT-37934 Level 3 [facility] 17:35:26 GRAB DRIVER CPT-82641 Level 3 [facility] 18:44:49 GRAB DRIVER CPT-11282 Level 3 [facility] 18:17:33 CDT CPT-82186 Level 3 [facility] 09:25:33 CDT CPT-42722 Level 3 [facility] 19:11:57 CDT CPT-02046 Level 3 [facility] 09:25:52 CDT CPT-90027 Level 3 [facility] 14:23:59 CDT CPT-72801 Level 3 [facility] 12:09:43 CDT CPT-52435 Level 3 [facility] Care 09:37:40 CDT CPT-28108 Level 3 [facility] 18:23:02 CDT CPT-70211 Level 3 [facility] 14:09:06 CDT CPT-55105 Level 3 [facility] 12:43:27 GRAB DRIVER CPT-14516 Postop F/U Visit 14:10:15 GRAB DRIVER CPT-00328 [facility] 17:07:14 GRAB DRIVER CPT-56219 Level 3 [facility] 16:14:37 GRAB DRIVER CPT-29426 Port a cath flush 11:47:42 CDT CPT-96384 Port a cath flush 08:29:49 CDT CPT-OV Office Visit 14:27:58 GRAB DRIVER
--- OUTSIDE RECORDS SUMMARY | 2016-08-07 11:38 | XMS REPORT | Clinical Summary ---
Author Author Admin, [place] Organization [facility] Address Unknown Phone Unavailable Allergies, 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, CARDIOLOGY MANAGER V58.69 Resolved Jonel Hemphill MD Long-term [...] Coronary atherosclerosis of unspecified type of vessel, [place] or graft FH DIABETES V18.0 Resolved Jonel [...] Coronary atherosclerosis of unspecified type of vessel, [place] or graft CONSTIPATION 564.00 Resolved Jonel Hemphill [...] Jonel Hemphill MD Painful respiration 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 USE, CARDIOLOGY MANAGER ICD-V58.69 Inactive Jonel Hemphill MD DIABETES, TYPE [...] ORAL TABS 1 daily for gout. FEBUXOSTAT [id number] Active Mraleni Romero Active HYDROCODONE-ACETAMINOPHEN 7.5-325 MG TABS 1 TAB PO Q 6 HRS PRN HYDROCODONE-ACETAMINOPHEN 85203130667 Active Jonel Hemphill MD Active METFORMIN HCL 1000 MG TABS 1 tablet by mouth twice daily METFORMIN HCL 07511251471 Active Marleni Romero Active FENTANYL 12 MCG/HR PT72 Apply to clean, dry skin and change every 72 hours FENTANYL 07056863234 Active Mattie Gates APRN Active KLOR-CON 20 MEQ ORAL PACK 1 BY MOUTH DAILY POTASSIUM CHLORIDE 03354268465 Active Marleni Romero Active A+D FIRST AID EXT OINT APPLY OINTMENT AND RUFINO WRAPS TO LOWER EXTEREMETIES DAILY SKIN PROTECTANTS, MISC. 85406660440 Active Jonel Hemphill MD Active NYSTATIN 437439 UNIT/GM EXT OINT APPLY PRN TID TO GAULDING/RASH IN ABDOMINAL FOLDS NYSTATIN 88013502057 Active Jonel Hemphill MD Active ATIVAN 0.5 MG TABS Take 1 tablet 2x daily PRN LORAZEPAM 24349657326 Active Jonel Hemphill MD Active GABAPENTIN 400 MG ORAL CAPS 1 TAB BY MOUTH THREE TIMES DAILY GABAPENTIN 72044531336 Active Jonel Hemphill MD Active GABAPENTIN 300 MG CAPS 1 CAP PO TID GABAPENTIN 28645138426 No Longer Active Jonel Hemphill MD Active DILANTIN 100 MG ORAL CAPS 1 THREE TIMES DAILY FOR SEIZURES PHENYTOIN SODIUM EXTENDED 64291615200 Active Marleni Romero Active CPAP APPLY AT HS CPAP Active Jonel Hemphill MD Active METOPROLOL TARTRATE 50 MG ORAL TABS 1 TAB BY MOUTH TWICE DAILY METOPROLOL TARTRATE 82643045523 Active Jonel Hemphill MD Active LISINOPRIL 40 MG TABS 1 tablet by mouth twice daily, for blood pressure 03/31 LISINOPRIL 88694505125 Active Jonel Hemphill MD Active BUPROPION HCL ER (SR) 150 MG [id number] 1 twice a day for depression BUPROPION HCL 51920746000 Active Jonel Hemphill MD Active MULTIVITAMINS CAPS 1 DAILY MULTIPLE VITAMIN 74487867082 Active Jonel Hemphill MD Active ZYLOPRIM 300 MG TAB 1 BY MOUTH DAILY ALLOPURINOL 99776177494 Active Jonel Hemphill MD Active HYDROCODONE-ACETAMINOPHEN 7.5-325 MG TABS 1 q 6 hrs prn HYDROCODONE-ACETAMINOPHEN 97139051155 No Longer Active Jonel Hemphill MD Active DILANTIN 100 MG CAPS 3 cap tid PHENYTOIN SODIUM EXTENDED 71682985365 No Longer Active Jonel Hemphill MD Active BUDEPRION SR 150 MG [id number] 1 bid BUPROPION HCL 20177648928 No Longer Active Jonel Hemphill MD Active ALLOPURINOL 300 MG TABS 1 qd ALLOPURINOL 25981680466 No Longer Active Jonel Hemphill MD Active COZAAR 100 MG TABS 1 qd LOSARTAN POTASSIUM 13336801452 No Longer Active Jonel Hemphill MD Active CVS VITAMIN C 500 MG TABS 1 po daily ASCORBIC ACID 66691372510 No Longer Active Jonel Hepmhill MD Active MIRALAX POWD 17 gms in 4 oz water or juice daily POLYETHYLENE GLYCOL 3350 69525997251 No Longer Active Jonel Hemphill MD Active POTASSIUM CHLORIDE CHELA ER 20 MEQ CR-TABS 1 tab PO daily POTASSIUM CHLORIDE CHELA CR 33601822999 No Longer Active Jonel Hemphill MD Active AMBIEN 10 MG TAB 1 tab by mouth at bedtime as needed for sleep ZOLPIDEM TARTRATE 69123208419 No Longer Active Jonel Hemphill MD Active SULFAMETHOXAZOLE-TMP DS 800-160 MG TABS 1 TAB PO BID SULFAMETHOXAZOLE-TRIMETHOPRIM 38273678043 No Longer Active Jonel Hemphill MD Active NORCO 5-325 MG TABS 1-2 TAB Q 6 HRS PRN HYDROCODONE- ACETAMINOPHEN 76519016314 Active Jonel Hemphill MD Active LEVEMIR 100 UNIT/ML SOLN 5 units sub-q at bedtime INSULIN DETEMIR 39446276169 No Longer Active Tova Perez Active MOBIC 15 MG TABS 1 tab PO daily for arthritis pain MELOXICAM 56130537241 No Longer Active Tova Perez Active GLUCAGEN 1 MG SOLR INJECT 1MG IM IF BS LESS THAN 60 & RES. IS UNABLE TO SWALLOW GLUCAGON HCL (RDNA) 46243054270 No Longer Active Tova Perez Active CVS MILK OF MAGNESIA 1200 MG/15ML SUSP 30 ml daily for constipation MAGNESIUM HYDROXIDE 14926277131 No Longer Active Tova Perez Active IMDUR 120 MG [id number] 1 qd ISOSORBIDE MONONITRATE 77236211397 No Longer Active Tova Chris Active PHENYTOIN 50 MG CHEW 1 TAB PO BID PHENYTOIN 01759258931 Active Tova Chris Active MECLIZINE HCL 25 MG CHEW TAB 1 four times a day as needed for dizziness 02/21 MECLIZINE HCL 39836931102 Active Tova Chris Active NEURONTIN 400 MG CAPS Take one by mouth 3 times daily, morning, afternoon and evening.] GABAPENTIN 00806129901 No Longer Active Tova Perez Active ANTIVERT 25 MG TABS 1 q 6 hrs prn MECLIZINE HCL 75315055942 No Longer Active Jonel Hemphill MD Active CLONIDINE HCL 0.2 MG TABS 1 q 8 hrs as needed -greater than 160-htn CLONIDINE HCL 35602157834 No Longer Active Jonel Hemphill MD Active AMBIEN 10 MG TABS 1 q hs prn ZOLPIDEM TARTRATE 51012927319 No Longer Active Jonel Hemphill MD Active GNP THERAPEUTIC-M TABS 1 qd MULTIPLE VITAMINS- MINERALS 65537774571 No Longer Active Jonel Hemphill MD Active METOPROLOL TARTRATE 50 MG TABS 1 bid METOPROLOL TARTRATE 83067807516 No Longer Active Jonel Hemphill MD Active METFORMIN HCL 500 MG TABS 1 bod with food METFORMIN HCL 33834382446 No Longer Active Jonel Hemphill MD Active LISINOPRIL 40 MG TABS 1 qd LISINOPRIL 14609206464 No Longer Active Jonel Hemphill MD Active HYDROCHLOROTHIAZIDE 25 MG TABS 1 qd HYDROCHLOROTHIAZIDE 96003699540 No Longer Active Jonel Hemphill MD Active DURAGESIC-25 25 MCG/HR PT72 place 1 patch on the skin q72hrs for pain FENTANYL 58181202410 No Longer Active Jonel Hemphill MD Active FENTANYL 75 MCG/HR PT72 place 1 patch on skin q72hrs fr pain 2012 FENTANYL 04180340973 No Longer Active Jonel Hemphill MD Active LASIX 20 MG TABS 1 tab PO q morning FUROSEMIDE 10978121800 Active Jonel Hemphill MD Active FUROSEMIDE 40 MG TABS 1 q am FUROSEMIDE 03529066212 No Longer Active Jonel Hemphill MD Active HEPARIN (PORCINE) LOCK FLUSH 100 UNIT/ML SOLN Flush port a cath monthly every three week on with Heparin and NS HEPARIN LOCK FLUSH 02926389040 Active Jonel Hemphill MD Active FENTANYL 100 MCG/HR PT72 Apply every 3 days FENTANYL 73215800788 Active Mattie Gates APRN Active FENTANYL 25 MCG/HR PT72 Apply to clean skin and change every 72 hours. 07/03 FENTANYL 36052739651 No Longer Active Jonel Hemphill MD Active FENTANYL 50 MCG/HR PT72 place 1 patch on skin q72 hours FENTANYL 23218776969 No Longer Active Mayco Shah APRN Active CELEXA 20 MG TABS Take 1 tablet 1x daily CITALOPRAM HYDROBROMIDE 50622168839 Active Jonel Hemphill MD Active DURAGESIC-12 12 MCG/HR PT72 APPLY PATCH TO SKIN AND CHANGE EVERY 72 HOURS, ROTATE SITES FENTANYL 26773834786 No Longer Active Fozia Amador RMA Active FUROSEMIDE 20 MG TABS 1 qd FUROSEMIDE 41151552766 No Longer Active Mahogany Brawley Active ADULT ASPIRIN EC LOW STRENGTH 81 MG TBEC 1 qd ASPIRIN 84367467316 Active MARY Perez Active FUROSEMIDE 20 MG TABS 1 qd FUROSEMIDE 20 MG TABS 189599 FUROSEMIDE Inactive DURAGESIC-12 12 MCG/HR PT72 APPLY PATCH TO SKIN AND CHANGE EVERY 72 HOURS, ROTATE SITES DURAGESIC-12 12 MCG/HR PT72 655918 FENTANYL Inactive FENTANYL 50 MCG/HR PT72 place 1 patch on skin q72 hours FENTANYL 50 MCG/HR PT72 847047 FENTANYL Inactive FUROSEMIDE 40 MG TABS 1 q am FUROSEMIDE 40 MG TABS 173929 FUROSEMIDE Inactive FENTANYL 75 MCG/HR PT72 place 1 patch on skin q72hrs fr pain 2012 FENTANYL 75 MCG/HR PT72 799049 FENTANYL Inactive DURAGESIC-25 25 MCG/HR PT72 place 1 patch on the skin q72hrs for pain DURAGESIC-25 25 MCG/HR PT72 313474 FENTANYL Inactive HYDROCHLOROTHIAZIDE 25 MG TABS 1 qd HYDROCHLOROTHIAZIDE 25 MG TABS 629478 HYDROCHLOROTHIAZIDE Inactive LISINOPRIL 40 MG TABS 1 qd LISINOPRIL 40 MG TABS 539159 LISINOPRIL Inactive METFORMIN HCL 500 MG TABS 1 bod with food METFORMIN HCL 500 MG TABS 480792 METFORMIN HCL Inactive METOPROLOL TARTRATE 50 MG TABS 1 bid METOPROLOL TARTRATE 50 MG TABS 000753 METOPROLOL TARTRATE Inactive GNP THERAPEUTIC-M TABS 1 qd GNP THERAPEUTIC-M TABS MULTIPLE VITAMINS-MINERALS Inactive AMBIEN 10 MG TABS 1 q hs prn AMBIEN 10 MG TABS 587520 ZOLPIDEM TARTRATE Inactive CLONIDINE HCL 0.2 MG TABS 1 q 8 hrs as needed -greater than 160-htn CLONIDINE HCL 0.2 MG TABS 428804 CLONIDINE HCL Inactive ANTIVERT 25 MG TABS 1 q 6 hrs prn ANTIVERT 25 MG TABS MECLIZINE HCL Inactive NEURONTIN 400 MG CAPS Take one by mouth 3 times daily, morning, afternoon and evening.] NEURONTIN 400 MG CAPS 631730 GABAPENTIN Inactive IMDUR 120 MG [id number] 1 qd IMDUR 120 MG [id number] ISOSORBIDE MONONITRATE Inactive CVS MILK OF MAGNESIA [...] for arthritis pain MOBIC 15 MG TABS 482253 MELOXICAM Inactive LEVEMIR 100 UNIT/ML SOLN 5 units sub-q at bedtime LEVEMIR 100 UNIT/ML SOLN INSULIN DETEMIR Inactive SULFAMETHOXAZOLE-TMP DS 800-160 MG TABS 1 TAB PO BID SULFAMETHOXAZOLE-TMP DS 800-160 MG TABS 156636 SULFAMETHOXAZOLE-TRIMETHOPRIM Inactive AMBIEN 10 MG TAB 1 tab by mouth at bedtime as needed for sleep AMBIEN 10 MG TAB 121638 ZOLPIDEM TARTRATE Inactive POTASSIUM CHLORIDE CHELA ER 20 MEQ CR-TABS 1 tab PO daily POTASSIUM CHLORIDE CHELA ER 20 MEQ CR-TABS POTASSIUM CHLORIDE CHELA CR Inactive MIRALAX POWD 17 gms in 4 oz water or juice daily MIRALAX POWD 406407 POLYETHYLENE GLYCOL 3350 Inactive CVS VITAMIN C 500 MG TABS 1 po daily CVS VITAMIN C 500 MG TABS 261127 ASCORBIC ACID Inactive COZAAR 100 MG TABS 1 qd COZAAR 100 MG TABS 988562 LOSARTAN POTASSIUM Inactive ALLOPURINOL 300 MG TABS 1 qd ALLOPURINOL 300 MG TABS 058368 ALLOPURINOL Inactive BUDEPRION SR 150 MG [id number] 1 bid BUDEPRION SR 150 MG [id number] BUPROPION HCL Inactive DILANTIN 100 MG CAPS 3 cap tid DILANTIN 100 MG CAPS 255729 PHENYTOIN SODIUM EXTENDED Inactive HYDROCODONE-ACETAMINOPHEN 7.5-325 MG TABS 1 q 6 hrs prn HYDROCODONE-ACETAMINOPHEN 7.5-325 MG TABS 488847 HYDROCODONE- ACETAMINOPHEN Inactive GABAPENTIN 300 MG CAPS 1 CAP PO TID GABAPENTIN 300 MG CAPS 961748 GABAPENTIN Inactive FENTANYL 25 MCG/HR PT72 Apply to clean skin and change every 72 hours. 07/03 FENTANYL 25 MCG/HR PT72 611551 FENTANYL Inactive Advance Directives Directive Description Start [...] 4.3-6.0 Encounters Code Encounter Date Provider Facility CPT-83703 Level 3 Est. Patient 19:05:03 CDT Jonel Hemphill MD [facility] CPT-16825 Level 3 Est. Patient 17:30:47 CDT Kevin Link MD [facility] CPT-44488 Level 3 Est. Patient 18:04:07 CDT Jonel Hemphill MD [facility] CPT-96376 Level 3 Est. Patient 17:18:03 CDT Jonel Hemphlil MD [facility] CPT-87633 Level 3 Est. Patient 21:58:03 [employer]NERSH[employer] SPECIALIST Jonel Hemphill MD [facility] CPT-25786 Level 4 Est. Patient 18:03:14 CDT Jonel Hemphill MD [facility]-10250 Level 4 Est. Patient 13:24:53 CDT Jonel Hemphill MD [facility]-11288 Level 4 Est. Patient 09:15:44 CDT Jonel Hemphill MD [facility]-44246 Level 4 Est. Patient 19:16:01 CDT Jonel Hemphill MD [facility]-00807 Level 4 Est. Patient 11:25:16 CDT Jonel Hemphill MD [facility]-54312 Level 4 Est. Patient 09:00:40 CDT Jonel Hemphill MD [facility]-25265 Level 4 Est. Patient 14:53:58 CDT Jonel Hemphill MD [facility]-05155 Level 4 Est. Patient 22:59:01 CDT Jonel Hemphill MD [facility]-48026 Level 4 Est. Patient 09:29:57 CDT Jonel Hemphill MD [facility]-76525 Level 4 Est. 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 Patient 22:36:09 [employer]NERSHIP SPECIALIST Jonel Hemphill MD [facility]-57590 Level 2 Est. Patient 15:14:15 [employer]NERSHIP SPECIALIST Mayco Shah APRN [facility]-20091 Level 4 Est. Patient 10:36:22 [employer]NERSHIP SPECIALIST Jonel Hemphill MD [facility]-99552 Level 4 Est. Patient 22:01:13 [employer]NERSHIP SPECIALIST Jonel Hemphill MD [facility]-22542 Level 3 Est. Patient 21:50:37 [employer]NERSHIP SPECIALIST Jnoel Hemphill MD [facility] CPT-74816 Level 4 Est. Patient 15:02:43 CDT Rubin Pierre MD [facility] CPT-50751 Level 4 Est. Patient 14:27:35 CDT Jonel Hemphill MD [facility]-11129 Level 4 Est. Patient 12:41:17 CDT Jonel Hemphill MD [facility]-32000 Level 4 Est. Patient 16:18:55 CDT Jonel Hemphill MD [facility]-86370 Level 4 Est. Patient 17:58:05 CDT Jonel Hemphill MD [facility]-08030 Level 4 Est. Patient 22:10:06 CDT Jonel Hemphill MD [facility] CPT-40372 Level 4 Est. Patient 13:22:09 CDT Jonel Hemphill MD [facility] CPT-09733 Level 4 Est. Patient 22:52:17 [employer]NER[employer] SPECIALIST Jonel Hmephill MD [facility]-13061 Level 3 Est. Patient 22:34:10 [employer]NER[employer] SPECIALIST Jonel Hemphill MD [facility] CPT-96861 Level 4 Est. Patient 07:49:20 [employer]NER[employer] SPECIALIST Jonel Hemphill MD [facility] Skilled CPT-06010 Level 3 Est. Patient 08:28:27 [employer] SPECIALIST Jonel Hemphill MD [facility] Procedures Code Procedure Name Date Entry Date Standard Description CPT-89866 Level 3 Skilled Nursing 17:42:11 CDT CPT-40975 Level 3 Skilled Nursing 16:04:10 CDT CPT-31419 Level 3 Skilled Nursing 19:38:15 [employer]IST CPT-03086 Level 3 Skilled Nursing 19:28:48 [employer]NER[employer] SPECIALIST CPT-44302 Level 3 Skilled Nursing 18:02:20 [employer]NER[employer] SPECIALIST CPT-69736 Level 3 Skilled Nursing 15:02:14 [employer]NER[employer] SPECIALIST CPT-63405 Level 3 Skilled Nursing 12:25:37 CDT CPT-72954 Level 3 Skilled Nursing 12:48:39 CDT CPT-19862 Level 3 Skilled Nursing 17:39:14 CDT CPT-57640 Level 3 Skilled Nursing 13:32:58 CDT CPT-48921 Level 3 Skilled Nursing 17:43:43 CDT CPT-22817 Level 3 Skilled Nursing 12:03:33 [employer]NER[employer] SPECIALIST CPT-82030 Level 3 Skilled Nursing 18:47:28 [employer]NER[employer] SPECIALIST CPT-87668 Level 3 Skilled Nursing 17:35:26 [employer]NER[employer]IP SPECIALIST CPT-73835 Level 3 Skilled Nursing 18:44:49 [employer]NER[employer] SPECIALIST CPT-06733 Level 3 Skilled Nursing 18:17:33 CDT CPT-70914 Level 3 Skilled Nursing 09:25:33 CDT CPT-40780 Level 3 Skilled Nursing 19:11:57 CDT CPT-71259 Level 3 Skilled Nursing 09:25:52 CDT CPT-87113 Level 3 Skilled Nursing 14:23:59 CDT CPT-04835 Level 3 Skilled Nursing 12:09:43 CDT CPT-95042 Level 3 Skilled Nursing 09:37:40 CDT CPT-83551 Level 3 Skilled Nursing 18:23:02 CDT CPT-71661 Level 3 Skilled Nursing 14:09:06 CDT CPT-49059 Level 3 Skilled Nursing 12:43:27 [employer]IST CPT-38953 Postop F/U Visit 14:10:15 [employer] SPECIALIST CPT-99390 [facility] 17:07:14 [employer]IST CPT-19547 Level 3 Skilled Nursing 16:14:37 [employer] SPECIALIST CPT-52745 Port a cath flush 11:47:42 CDT CPT-84219 Port a cath flush 08:29:49 CDT CPT-OV Office Visit 14:27:58 [employer]NER[employer] SPECIALIST
--- OUTSIDE RECORDS SUMMARY | 2016-08-07 11:39 | XMS REPORT | Clinical Summary ---
Author Author Admin, [place] [facility] Address Unknown Phone Allergies, Adverse Reactions, Alerts Allergy Name Reaction Description Start Date Severity Status Provider PENICILLIN Critical Active [place] Conditions or Problems Problem Name Problem Code Onset Date Status Entry Date Provider Comment Standard Description Annotate DIABETES MELLITUS, TYPE II, CONTROLLED 250.00 Active Jonel Hemphill MD Diabetes mellitus without mention of complication, type II or unspecified type, not stated as uncontrolled MORBID OBESITY 278.01 Active Jonel Hemphill MD Morbid obesity HYPERTENSION 401.1 Active Jonel Hemphill MD Benign essential hypertension 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 USE, PRISON V58.69 Resolved Jonel Hemphill MD Long-term (current) [...] as uncontrolled SEIZURE DISORDER 780.39 Active Gregor Seadrift Other convulsions CORONARY HEART DISEASE 414.00 Resolved Jonel Hemphill MD Coronary atherosclerosis of unspecified type of vessel, [place] or graft FH DIABETES V18.0 Resolved Jonel [...] atherosclerosis of unspecified type of vessel, [place] or graft CONSTIPATION 564.00 Resolved Jonel Hemphill [...] Hemphill MD Pain in limb 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 IS UNABLE TO SWALLOW GLUCAGON HCL (RDNA) 13226579216 No Longer Active Tova Perez Active [facility] MILK OF MAGNESIA 1200 MG/15ML SUSP 30 ml daily for constipation MAGNESIUM HYDROXIDE 15079503666 No Longer Active Tova Perez Active IMDUR 120 MG [id number] 1 qd ISOSORBIDE MONONITRATE 52287138348 No Longer Active Tova Chris Active METFORMIN HCL 500 MG TABS 1 tablet by mouth twice daily METFORMIN HCL 43409009173 Active Tova Chris Active SULFAMETHOXAZOLE-TMP DS 800-160 MG TABS 1 TAB PO BID SULFAMETHOXAZOLE-TRIMETHOPRIM 31558535755 Active Tova Chris Active PHENYTOIN 50 MG CHEW 1 TAB PO BID PHENYTOIN 42818606940 Active Tova Perez Active MECLIZINE HCL 25 MG CHEW TAB 1 four times a day as needed for dizziness 02/21 MECLIZINE HCL 09522014036 Active Tova Chris Active GABAPENTIN 300 MG CAPS 1 CAP PO TID GABAPENTIN 72274362475 Active Tova Chris Active NEURONTIN 400 MG CAPS Take one by mouth 3 times daily, morning, afternoon and evening.] GABAPENTIN 89442013395 No Longer Active Tova Chris Active AMBIEN 10 MG TAB 1 tab by mouth at bedtime as needed for sleep ZOLPIDEM TARTRATE 89408743416 Active Jonel Hemphill MD Active POTASSIUM CHLORIDE CHELA ER 20 MEQ CR-TABS 1 tab PO daily POTASSIUM CHLORIDE CHELA CR 76118098877 Active Jonel Hemphill MD Active ANTIVERT 25 MG TABS 1 q 6 hrs prn MECLIZINE HCL 07881608093 No Longer Active Jonel Hemphill MD Active CLONIDINE HCL 0.2 MG TABS 1 q 8 hrs as needed -greater than 160-htn CLONIDINE HCL 74958725418 No Longer Active Jonel Hemphill MD Active AMBIEN 10 MG TABS 1 q hs prn ZOLPIDEM TARTRATE 50969426124 No Longer Active Jonel Hemphill MD Active GNP THERAPEUTIC-M TABS 1 qd MULTIPLE VITAMINS- MINERALS 90756710385 No Longer Active Jonel Hemphill MD Active METOPROLOL TARTRATE 50 MG TABS 1 bid METOPROLOL TARTRATE 50656846569 No Longer Active Jonel Hemphill MD Active METFORMIN HCL 500 MG TABS 1 bod with food METFORMIN HCL 38344182713 No Longer Active Jonel Hemphill MD Active LISINOPRIL 40 MG TABS 1 qd LISINOPRIL 20764620161 No Longer Active Jonel Hemphill MD Active HYDROCHLOROTHIAZIDE 25 MG TABS 1 qd HYDROCHLOROTHIAZIDE 34895481407 No Longer Active Jonel Hemphill MD Active DURAGESIC-25 25 MCG/HR PT72 place 1 patch on the skin q72hrs for pain FENTANYL 70147100749 No Longer Active Jonel Hemphill MD Active FENTANYL 75 MCG/HR PT72 place 1 patch on skin q72hrs fr pain 2012 FENTANYL 75196280510 No Longer Active Jonel Hemphill MD Active LASIX 20 MG TABS 1 tab PO q morning FUROSEMIDE 54739409963 Active Jonel Hemphill MD Active FUROSEMIDE 40 MG TABS 1 q am FUROSEMIDE 97680773759 No Longer Active Jonel Hemphill MD Active HEPARIN (PORCINE) LOCK FLUSH 100 UNIT/ML SOLN Flush port a cath monthly every three week on with Heparin and NS HEPARIN LOCK FLUSH 73228217096 Active Jonel Hemphill MD Active FENTANYL 100 MCG/HR PT72 Apply every 3 days FENTANYL 89379735708 Active Jonel Hemphill MD Active FENTANYL 25 MCG/HR PT72 Apply to clean skin and change every 72 hours. 07/03 FENTANYL 21069551666 No Longer Active Jonel Hemphill MD Active FENTANYL 50 MCG/HR PT72 place 1 patch on skin q72 hours FENTANYL 36875813478 No Longer Active Mayco Shah APRN Active HYDROCODONE-ACETAMINOPHEN 7.5-325 MG TABS 1 q 6 hrs prn HYDROCODONE-ACETAMINOPHEN 20760814832 Active Jonel Hemphill MD Active ATIVAN 0.5 MG TABS Take 1 tablet 2x daily LORAZEPAM 88401065381 Active Jonel Hemphill MD Active CELEXA 20 MG TABS Take 1 tablet 1x daily CITALOPRAM HYDROBROMIDE 08978615084 Active Jonel Hemphill MD Active MIRALAX POWD 17 gms in 4 oz water or juice daily POLYETHYLENE GLYCOL 3350 46570701302 Active Rubin Pierre MD Active DURAGESIC-12 12 MCG/HR PT72 APPLY PATCH TO SKIN AND CHANGE EVERY 72 HOURS, ROTATE SITES FENTANYL 93292826041 No Longer Active Fozia Amador TREYA Active [facility] VITAMIN C 500 MG TABS 1 po daily ASCORBIC ACID 00414562747 Active Mahogany Sheridan Active FUROSEMIDE 20 MG TABS 1 qd FUROSEMIDE 56706965617 No Longer Active Mahogany Sheridan Active ADULT ASPIRIN EC LOW STRENGTH 81 MG TBEC 1 qd ASPIRIN 87166127004 Active Gregor Giles Active DILANTIN 100 MG CAPS 3 cap tid PHENYTOIN SODIUM EXTENDED 27703314819 Active [place] Active BUDEPRION SR 150 MG [id number] 1 bid BUPROPION HCL 05146743384 Active Gregor Giles Active ALLOPURINOL 300 MG TABS 1 qd ALLOPURINOL 95340027451 Active Gregor Giles Active COZAAR 100 MG TABS 1 qd LOSARTAN POTASSIUM 03135580803 Active Gregor Giles Active FUROSEMIDE 20 MG TABS 1 qd FUROSEMIDE 20 MG TABS 552465 FUROSEMIDE Inactive DURAGESIC-12 12 MCG/HR PT72 APPLY PATCH TO SKIN AND CHANGE EVERY 72 HOURS, ROTATE SITES DURAGESIC-12 12 MCG/HR PT72 388348 FENTANYL Inactive FENTANYL 50 MCG/HR PT72 place 1 patch on skin q72 hours FENTANYL 50 MCG/HR PT72 476799 FENTANYL Inactive FUROSEMIDE 40 MG TABS 1 q am FUROSEMIDE 40 MG TABS 140429 FUROSEMIDE Inactive FENTANYL 75 MCG/HR PT72 place 1 patch on skin q72hrs fr pain 2012 FENTANYL 75 MCG/HR PT72 004779 FENTANYL Inactive DURAGESIC-25 25 MCG/HR PT72 place 1 patch on the skin q72hrs for pain DURAGESIC-25 25 MCG/HR PT72 547912 FENTANYL Inactive HYDROCHLOROTHIAZIDE 25 MG TABS 1 qd HYDROCHLOROTHIAZIDE 25 MG TABS 730120 HYDROCHLOROTHIAZIDE Inactive LISINOPRIL 40 MG TABS 1 qd LISINOPRIL 40 MG TABS 741717 LISINOPRIL Inactive METFORMIN HCL 500 MG TABS 1 bod with food METFORMIN HCL 500 MG TABS 938123 METFORMIN HCL Inactive METOPROLOL TARTRATE 50 MG TABS 1 bid METOPROLOL TARTRATE 50 MG TABS 133583 METOPROLOL TARTRATE Inactive GNP THERAPEUTIC-M TABS 1 qd GNP THERAPEUTIC-M TABS MULTIPLE VITAMINS-MINERALS Inactive AMBIEN 10 MG TABS 1 q hs prn AMBIEN 10 MG TABS 801135 ZOLPIDEM TARTRATE Inactive CLONIDINE HCL 0.2 MG TABS 1 q 8 hrs as needed -greater than 160-htn CLONIDINE HCL 0.2 MG TABS 313556 CLONIDINE HCL Inactive ANTIVERT 25 MG TABS 1 q 6 hrs prn ANTIVERT 25 MG TABS MECLIZINE HCL Inactive NEURONTIN 400 MG CAPS Take one by mouth 3 times daily, morning, afternoon and evening.] NEURONTIN 400 MG CAPS 298751 GABAPENTIN Inactive IMDUR 120 MG [id number] 1 qd IMDUR 120 MG [id number] ISOSORBIDE MONONITRATE Inactive [facility] MILK OF MAGNESIA [...] for arthritis pain MOBIC 15 MG TABS 280111 MELOXICAM Inactive LEVEMIR 100 UNIT/ML SOLN 5 units sub-q at bedtime LEVEMIR 100 UNIT/ML SOLN INSULIN DETEMIR Inactive FENTANYL 25 MCG/HR PT72 Apply to clean skin and change every 72 hours. 07/03 FENTANYL 25 MCG/HR PT72 546202 FENTANYL Inactive Advance Directives Directive Description Start [...] Panel - Chemistry sodium, serum 141 mmol/L 655-903 4391/07/01 potassium, serum 3.4 mmol/L 3.5-5.2 chloride, serum 104 mmol/L 98-107 carbon dioxide, venous blood 27.3 mmol/L 21.0-32.0 blood glucose 101 mg/dL 65-110 calcium, serum 8.9 mg/dL 8.5-10.1 urea nitrogen, blood 15 mg/dL 7-18 creatinine, serum 1.10 mg/dL 0.60-1.30 sodium, serum 137 mmol/L 383-130 4882/06/14 potassium, serum 7.1 mmol/L 3.5-5.2 chloride, serum 107 mmol/L 98-107 carbon dioxide, venous blood 18.7 mmol/L 21.0-32.0 blood glucose 153 mg/dL 65-110 calcium, serum 8.8 mg/dL 8.5-10.1 urea nitrogen, blood 82 mg/dL 7-18 creatinine, serum 2.50 mg/dL 0.60-1.30 sodium, serum 141 mmol/L 939-667 1758/05/20 potassium, serum 5.7 mmol/L 3.5-5.2 chloride, serum 108 mmol/L 98-107 carbon dioxide, venous blood 20.4 mmol/L 21.0-32.0 blood glucose 147 mg/dL 65-110 calcium, serum 8.8 mg/dL 8.5-10.1 urea nitrogen, blood 68 mg/dL 7-18 creatinine, serum 2.40 mg/dL 0.60-1.30 sodium, serum 140 mmol/L 027-496 6469/05/31 potassium, serum 5.5 mmol/L 3.5-5.2 chloride, serum 108 mmol/L 98-107 carbon dioxide, venous blood 22.8 mmol/L 21.0-32.0 blood glucose 88 mg/dL 65-110 calcium, serum 9.1 mg/dL 8.5-10.1 urea nitrogen, blood 47 mg/dL 7-18 creatinine, serum 1.70 mg/dL 0.60-1.30 sodium, serum 137 mmol/L 633-208 4228/06/05 potassium, serum 6.5 mmol/L 3.5-5.2 chloride, serum [...] Panel - Chemistry sodium, serum 138 mmol/L 219-264 5297/05/24 potassium, serum 6.9 mmol/L 3.5-5.2 chloride, serum [...] Negative mg/dL Negative sodium, serum 142 mmol/L 532-319 0112/07/15 potassium, serum 3.9 mmol/L 3.5-5.2 chloride, serum [...] Acid - Chemistry sodium, serum 141 mmol/L 973-528 9383/05/09 potassium, serum 3.9 mmol/L 3.5-5.2 chloride, serum [...] dipstick Negative Negative sodium, serum 140 mmol/L 141-349 8569/02/18 potassium, serum 3.8 mmol/L 3.5-5.2 chloride, serum [...] Acid - Chemistry sodium, serum 141 mmol/L 336-550 6836/06/11 potassium, serum 5.9 mmol/L 3.5-5.2 chloride, serum [...] 10.0-20.0 Encounters Code Encounter Date Provider Facility CPT-62762 Level 3 Est. Patient 17:18:03 CDT Jonel Hemphill MD [facility] CPT-25632 Level 3 Est. Patient 21:58:03 [employer] LIFE PHOTOGRAPHER Jonel Hemphill MD [facility] CPT-73043 Level 4 Est. Patient 18:03:14 CDT Jonel Yeager [facility] CPT-40861 Level 4 Est. Patient 13:24:53 CDT Jonel Yeager [facility]-85190 Level 4 Est. Patient 09:15:44 CDT Jonel Yeager [facility]-95356 Level 4 Est. Patient 19:16:01 CDT [facility]ill [facility]26317 Level 4 Est. Patient 11:25:16 CDT Jonel Hemphill MD [facility] CPT-52814 Level 4 Est. Patient 09:00:40 CDT [facility]-93772 Level 4 Est. Patient 14:53:58 CDT Jonel Hemphill MD [facility] CPT-74313 Level 4 Est. Patient 22:59:01 CDT Jonel Hemphill MD [facility]-63005 Level 4 Est. Patient 09:29:57 CDT Jonel Hemphill MD [facility]-88484 Level 4 Est. Patient 12:35:53 [employer] PHOTOGRAPHER Jonel Hemphill MD [facility]-47431 Level 4 Est. Patient 22:36:09 [employer] LIFE PHOTOGRAPHER Jonel Hemphill MD [facility]-11465 Level 2 Est. Patient 15:14:15 [employer]ILD [employer] PHOTOGRAPHER Mayco Shah APRN [facility] CPT-94601 Level 4 Est. Patient 10:36:22 W[employer] LIFE PHOTOGRAPHER Jonel Hemphill MD [facility] CPT-60037 Level 4 Est. Patient 22:01:13 WILD LIFE PHOTOGRAPHER Jonel Hemphill MD [facility]-41935 Level 3 Est. Patient 21:50:37 W[employer] LIFE PHOTOGRAPHER Jonel Hemphill MD [facility] CPT-84421 Level 4 Est. Patient 15:02:43 CDT Rubin Pierre MD [facility] CPT-18539 Level 4 Est. Patient 14:27:35 CDT Jonel Hemphill MD [facility]-76892 Level 4 Est. Patient 12:41:17 CDT Jonel Hemphill MD [facility]-60970 Level 4 Est. Patient 16:18:55 CDT Jonel Hemphill MD [facility] CPT-92783 Level 4 Est. Patient 17:58:05 CDT Jonel Hemphill MD [facility] CPT-78345 Level 4 Est. Patient 22:10:06 CDT Jonel Hemphill MD [facility] CPT-75559 Level 4 Est. Patient 13:22:09 CDT Jonel Hemphill MD [facility] CPT-14100 Level 4 Est. Patient 22:52:17 [employer] PHOTOGRAPHER Jonel Hemphill MD [facility] CPT-47873 Level 3 Est. Patient 22:34:10 W[employer] LIFE PHOTOGRAPHER Jonel Hemphill MD [facility] CPT-18468 Level 4 Est. Patient 07:49:20 [employer] PHOTOGRAPHER Jonel Hemphill MD [facility] Skilled CPT-01591 Level 3 Est. Patient 08:28:27 [employer] PHOTOGRAPHER Jonel Hemphill MD [facility] Procedures Code Procedure Name Date Entry Date Standard Description CPT-77619 Level 3 Group Home 09:37:40 CDT CPT-54448 Level 3 Group Home 18:23:02 CDT CPT-44026 Level 3 Group Home 14:09:06 CDT CPT-76306 Level 3 Group Home 12:43:27 [employer] PHOTOGRAPHER CPT-22796 Postop F/U Visit 14:10:15 [employer] PHOTOGRAPHER CPT-40543 [facility] 17:07:14 WILD [employer] PHOTOGRAPHER CPT-69507 Level 3 Group Home 16:14:37 W[employer] PHOTOGRAPHER CPT-93208 Port a cath flush 11:47:42 CDT CPT-41808 Port a cath flush 08:29:49 CDT CPT-OV Office Visit 14:27:58 WILD LIFE PHOTOGRAPHER
--- OUTSIDE RECORDS SUMMARY | 2016-08-07 11:41 | XMS REPORT | Clinical Summary ---
Author Author Admin, [place] Organization [facility] Address Unknown Phone Unavailable Allergies, Adverse Reactions, 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, CELL INSPECTOR V58.69 Resolved Jonel Hemphill MD Long-term (current) [...] sleep apnea CELLULITIS, LEG, RIGHT 682.6 Resolved Joenl Hemphill MD Cellulitis and abscess of leg, [...] Obstructive sleep apnea (adult) (pediatric) 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 USE, CELL INSPECTOR ICD-V58.69 Inactive Jonel Hemphill MD DIABETES, TYPE [...] skin and change every 72 hours FENTANYL 83744949490 Active Tova Chris Active MIRALAX POWD 17 gms in 4 oz water or juice daily POLYETHYLENE GLYCOL 3350 94517091502 Active Jonel Hemphill MD Active [facility] MELATONIN 3 MG ORAL TABS 2 tabs at hs MELATONIN 80732096994 Active Jonel Hemphill MD Active MAGNESIUM GLUCONATE 500 MG ORAL TABS 1 tab twice daily MAGNESIUM GLUCONATE 43828590735 Active Jonel Hmephill MD Active OMEPRAZOLE 20 MG CPDR 1 tablet by mouth daily OMEPRAZOLE 05611663292 Active Jonel Hemphill MD Active DIGOXIN 125 MCG ORAL TABS 1 daily DIGOXIN 49944111654 Active Jonel Hemphill MD Active DILTIAZEM CD 240 MG ORAL [id number] 1 daily DILTIAZEM HCL COATED BEADS 86851368300 Active Jonel Hemphill MD Active NOVOLOG 100 UNIT/ML SC SOLN 70-140=0U 141-180=2 U 181-220=4U 221-260=6U 261- 300=8U 301-340=10U 939=773=44E 381-400=14U INSULIN ASPART 10691924580 Active Jonel Hemphill MD Active ACETAMINOPHEN 325 MG ORAL TABS 1 tab by mouth every 4 hours as needed ACETAMINOPHEN 36029012312 Active Jonel Hemphill MD Active FENTANYL 12 MCG/HR PT72 Apply to clean, dry skin and change every 72 hours FENTANYL 19094108386 No Longer Active Jonel Hemphill MD Active PHENYTOIN 50 MG CHEW 1 TAB PO BID PHENYTOIN 68668490165 No Longer Active Jonel Hemphill MD Active NORCO 5-325 MG TABS 1-2 TAB Q 6 HRS PRN HYDROCODONE- ACETAMINOPHEN 18026279785 No Longer Active Jonel Hemphill MD Active MULTIVITAMINS CAPS 1 DAILY MULTIPLE VITAMIN 97393542885 No Longer Active Jonel Hemphill MD Active BUPROPION HCL ER (SR) 150 MG [id number] 1 twice a day for depression BUPROPION HCL 61015109935 No Longer Active Jonel Hemphill MD Active LISINOPRIL 20 MG TABS 1 tablet by mouth daily LISINOPRIL 95150998904 Active Jonel Hemphill MD Active ULORIC 40 MG ORAL TABS 1 daily for gout. FEBUXOSTAT 81590102134 No Longer Active Jonel Hemphill MD Active CELEXA 20 MG TABS 1 tablet by mouth daily CITALOPRAM HYDROBROMIDE 69371827177 Active Marleni Raida Active ZOFRAN 4 MG TABS 1 po q6hr PRN Nausea ONDANSETRON HCL 41147526857 Active Jonel Hemphill MD Active XARELTO 20 MG ORAL TABS 1 daily RIVAROXABAN 39839705067 Active Jonel Hemphill MD Active JANUVIA 100 MG ORAL TABS 2 tabs daily SITAGLIPTIN PHOSPHATE 35978837244 Active Jonel Hemphill MD Active CELEXA 20 MG TABS Take 1 tablet 1x daily CITALOPRAM HYDROBROMIDE 54888150068 No Longer Active Jonel Hemphill MD Active ATIVAN 0.5 MG TABS Take 1 tablet 2x daily PRN LORAZEPAM 14653692527 No Longer Active Jonel Hemphill MD Active FUROSEMIDE 80 MG ORAL TABS 1 daily FUROSEMIDE 29590939465 Active Jonel Hemphill MD Active MECLIZINE HCL 25 MG CHEW TAB 1 four times a day as needed for dizziness 02/21 MECLIZINE HCL 40298489585 No Longer Active Jonel Hemphill MD Active ZYLOPRIM 300 MG TAB 1 BY MOUTH DAILY ALLOPURINOL 83053412737 No Longer Active Jonel Hemphill MD Active METOPROLOL TARTRATE 50 MG ORAL TABS 1 TAB BY MOUTH TWICE DAILY METOPROLOL TARTRATE 16093052442 No Longer Active Jonel Hemphill MD Active GABAPENTIN 400 MG ORAL CAPS 1 TAB BY MOUTH THREE TIMES DAILY 2015 GABAPENTIN 84575421712 No Longer Active Jonel Hemphill MD Active HYDROCODONE-ACETAMINOPHEN 7.5-325 MG TABS 1 TAB PO Q 6 HRS PRN HYDROCODONE-ACETAMINOPHEN 41509142908 Active Jonel Hemphill MD Active METFORMIN HCL 1000 MG TABS 1 tablet by mouth twice daily METFORMIN HCL 67357990498 Active Marleni Romero Active KLOR-CON 20 MEQ ORAL PACK 1 BY MOUTH DAILY POTASSIUM CHLORIDE 87967456473 Active Marleni Romero Active A+D FIRST AID EXT OINT APPLY OINTMENT AND RUFINO WRAPS TO LOWER EXTEREMETIES DAILY SKIN PROTECTANTS, MISC. 00648871683 Active Jonel Hemphill MD Active NYSTATIN 151224 UNIT/GM EXT OINT APPLY PRN TID TO GAULDING/RASH IN ABDOMINAL FOLDS NYSTATIN 81398174233 Active Jonel Hemphill MD Active GABAPENTIN 300 MG CAPS 1 CAP PO TID GABAPENTIN 98768793552 No Longer Active Jonel Hemphill MD Active DILANTIN 100 MG ORAL CAPS 1 THREE TIMES DAILY FOR SEIZURES PHENYTOIN SODIUM EXTENDED 97282789480 Active Marleni Romero Active CPAP APPLY AT HS CPAP Active Jonel Hemphill MD Active HYDROCODONE-ACETAMINOPHEN 7.5-325 MG TABS 1 q 6 hrs prn HYDROCODONE-ACETAMINOPHEN 03596891000 No Longer Active Jonel Hemphill MD Active DILANTIN 100 MG CAPS 3 cap tid PHENYTOIN SODIUM EXTENDED 91572032694 No Longer Active Jonel Hemphill MD Active BUDEPRION SR 150 MG [id number] 1 bid BUPROPION HCL 99820616041 No Longer Active Jonel Hemphill MD Active ALLOPURINOL 300 MG TABS 1 qd ALLOPURINOL 98649397556 No Longer Active Jonel Hemphill MD Active COZAAR 100 MG TABS 1 qd LOSARTAN POTASSIUM 27647730944 No Longer Active Jonel Hemphill MD Active CVS VITAMIN C 500 MG TABS 1 po daily ASCORBIC ACID 38751419262 No Longer Active Jonel Hemphill MD Active MIRALAX POWD 17 gms in 4 oz water or juice daily POLYETHYLENE GLYCOL 3350 10237101607 No Longer Active Jonel Hemphill MD Active POTASSIUM CHLORIDE CHELA ER 20 MEQ CR-TABS 1 tab PO daily POTASSIUM CHLORIDE CHELA CR 31574135842 No Longer Active Jonel Hemphill MD Active AMBIEN 10 MG TAB 1 tab by mouth at bedtime as needed for sleep ZOLPIDEM TARTRATE 91029922549 No Longer Active Jonel Hemphill MD Active SULFAMETHOXAZOLE-TMP DS 800-160 MG TABS 1 TAB PO BID SULFAMETHOXAZOLE-TRIMETHOPRIM 55497881828 No Longer Active Jonel Hemphill MD Active LEVEMIR 100 UNIT/ML SOLN 5 units sub-q at bedtime INSULIN DETEMIR 32890589590 No Longer Active Tova Perez Active MOBIC 15 MG TABS 1 tab PO daily for arthritis pain MELOXICAM 07098213077 No Longer Active Tova Perez Active GLUCAGEN 1 MG SOLR INJECT 1MG IM IF BS LESS THAN 60 & RES. IS UNABLE TO SWALLOW GLUCAGON HCL (RDNA) 42174256949 No Longer Active Tova Perez Active [facility]S MILK OF MAGNESIA 1200 MG/15ML SUSP 30 ml daily for constipation MAGNESIUM HYDROXIDE 28554599386 No Longer Active Tova Perez Active IMDUR 120 MG TO18U-VSL 1 qd ISOSORBIDE MONONITRATE 70915922956 No Longer Active Tova Perez Active NEURONTIN 400 MG CAPS Take one by mouth 3 times daily, morning, afternoon and evening.] GABAPENTIN 54068824498 No Longer Active Tova Perez Active ANTIVERT 25 MG TABS 1 q 6 hrs prn MECLIZINE HCL 78542109030 No Longer Active Jonel Hemphill MD Active CLONIDINE HCL 0.2 MG TABS 1 q 8 hrs as needed -greater than 160-htn CLONIDINE HCL 35999234534 No Longer Active Jonel Hemphill MD Active AMBIEN 10 MG TABS 1 q hs prn ZOLPIDEM TARTRATE 81460128371 No Longer Active Jonel Hemphill MD Active GNP THERAPEUTIC-M TABS 1 qd MULTIPLE VITAMINS- MINERALS 40585218632 No Longer Active Jonel Hemphill MD Active METOPROLOL TARTRATE 50 MG TABS 1 bid METOPROLOL TARTRATE 29932527016 No Longer Active Jonel Hemphill MD Active METFORMIN HCL 500 MG TABS 1 bod with food METFORMIN HCL 78124104247 No Longer Active Jonel Hemphill MD Active LISINOPRIL 40 MG TABS 1 qd LISINOPRIL 20189453790 No Longer Active Jonel Hemphill MD Active HYDROCHLOROTHIAZIDE 25 MG TABS 1 qd HYDROCHLOROTHIAZIDE 76930258051 No Longer Active Jonel Hemphill MD Active DURAGESIC-25 25 MCG/HR PT72 place 1 patch on the skin q72hrs for pain FENTANYL 43727658257 No Longer Active Jonel Hemphill MD Active FENTANYL 75 MCG/HR PT72 place 1 patch on skin q72hrs fr pain 2012 FENTANYL 86758093425 No Longer Active Jonel Hemphill MD Active FUROSEMIDE 40 MG TABS 1 q am FUROSEMIDE 28921527680 No Longer Active Jonel Hemphill MD Active HEPARIN (PORCINE) LOCK FLUSH 100 UNIT/ML SOLN Flush port a cath monthly every three week on with Heparin and NS HEPARIN LOCK FLUSH 17691235534 Active Jonel Hemphill MD Active FENTANYL 100 MCG/HR PT72 Apply every 3 days FENTANYL 30962084076 Active Jonel Hemphill MD Active FENTANYL 25 MCG/HR PT72 Apply to clean skin and change every 72 hours. 07/03 FENTANYL 01227016846 No Longer Active Jonel Hemphill MD Active FENTANYL 50 MCG/HR PT72 place 1 patch on skin q72 hours FENTANYL 32395337127 No Longer Active Mayco Shah APRN Active DURAGESIC-12 12 MCG/HR PT72 APPLY PATCH TO SKIN AND CHANGE EVERY 72 HOURS, ROTATE SITES FENTANYL 06370527747 No Longer Active Fozia YANGA Active FUROSEMIDE 20 MG TABS 1 qd FUROSEMIDE 77847484725 No Longer Active [facility] Active ADULT ASPIRIN EC LOW STRENGTH 81 MG TBEC 1 qd ASPIRIN 78005746503 Active MARY Perez Active FUROSEMIDE 20 MG TABS 1 qd FUROSEMIDE 20 MG TABS 408423 FUROSEMIDE Inactive DURAGESIC-12 12 MCG/HR PT72 APPLY PATCH TO SKIN AND CHANGE EVERY 72 HOURS, ROTATE SITES DURAGESIC-12 12 MCG/HR PT72 760055 FENTANYL Inactive FENTANYL 50 MCG/HR PT72 place 1 patch on skin q72 hours FENTANYL 50 MCG/HR PT72 243948 FENTANYL Inactive FUROSEMIDE 40 MG TABS 1 q am FUROSEMIDE 40 MG TABS 653496 FUROSEMIDE Inactive FENTANYL 75 MCG/HR PT72 place 1 patch on skin q72hrs fr pain 2012 FENTANYL 75 MCG/HR PT72 363603 FENTANYL Inactive DURAGESIC-25 25 MCG/HR PT72 place 1 patch on the skin q72hrs for pain DURAGESIC-25 25 MCG/HR PT72 730479 FENTANYL Inactive HYDROCHLOROTHIAZIDE 25 MG TABS 1 qd HYDROCHLOROTHIAZIDE 25 MG TABS 099181 HYDROCHLOROTHIAZIDE Inactive LISINOPRIL 40 MG TABS 1 qd LISINOPRIL 40 MG TABS 961521 LISINOPRIL Inactive METFORMIN HCL 500 MG TABS 1 bod with food METFORMIN HCL 500 MG TABS 894245 METFORMIN HCL Inactive METOPROLOL TARTRATE 50 MG TABS 1 bid METOPROLOL TARTRATE 50 MG TABS 005122 METOPROLOL TARTRATE Inactive GNP THERAPEUTIC-M TABS 1 qd GNP THERAPEUTIC-M TABS MULTIPLE VITAMINS-MINERALS Inactive AMBIEN 10 MG TABS 1 q hs prn AMBIEN 10 MG TABS 577528 ZOLPIDEM TARTRATE Inactive CLONIDINE HCL 0.2 MG TABS 1 q 8 hrs as needed -greater than 160-htn CLONIDINE HCL 0.2 MG TABS 438735 CLONIDINE HCL Inactive ANTIVERT 25 MG TABS 1 q 6 hrs prn ANTIVERT 25 MG TABS MECLIZINE HCL Inactive NEURONTIN 400 MG CAPS Take one by mouth 3 times daily, morning, afternoon and evening.] NEURONTIN 400 MG CAPS 992815 GABAPENTIN Inactive IMDUR 120 MG [id number] 1 qd IMDUR 120 MG [id number] ISOSORBIDE MONONITRATE Inactive [facility]S MILK OF MAGNESIA [...] for arthritis pain MOBIC 15 MG TABS 226325 MELOXICAM Inactive LEVEMIR 100 UNIT/ML SOLN 5 units sub-q at bedtime LEVEMIR 100 UNIT/ML SOLN INSULIN DETEMIR Inactive SULFAMETHOXAZOLE-TMP DS 800-160 MG TABS 1 TAB PO BID SULFAMETHOXAZOLE-TMP DS 800-160 MG TABS 183833 SULFAMETHOXAZOLE-TRIMETHOPRIM Inactive AMBIEN 10 MG TAB 1 tab by mouth at bedtime as needed for sleep AMBIEN 10 MG TAB 560897 ZOLPIDEM TARTRATE Inactive POTASSIUM CHLORIDE CHELA ER 20 MEQ CR-TABS 1 tab PO daily POTASSIUM CHLORIDE CHELA ER 20 MEQ CR-TABS POTASSIUM CHLORIDE CHELA CR Inactive MIRALAX POWD 17 gms in 4 oz water or juice daily MIRALAX POWD 269998 POLYETHYLENE GLYCOL 3350 Inactive CVS VITAMIN C 500 MG TABS 1 po daily CVS VITAMIN C 500 MG TABS 340562 ASCORBIC ACID Inactive COZAAR 100 MG TABS 1 qd COZAAR 100 MG TABS 576695 LOSARTAN POTASSIUM Inactive ALLOPURINOL 300 MG TABS 1 qd ALLOPURINOL 300 MG TABS 313109 ALLOPURINOL Inactive BUDEPRION SR 150 MG [id number] 1 bid BUDEPRION SR 150 MG [id number] BUPROPION HCL Inactive DILANTIN 100 MG CAPS 3 cap tid DILANTIN 100 MG CAPS 405097 PHENYTOIN SODIUM EXTENDED Inactive HYDROCODONE-ACETAMINOPHEN 7.5-325 MG TABS 1 q 6 hrs prn HYDROCODONE-ACETAMINOPHEN 7.5-325 MG TABS 074812 HYDROCODONE- ACETAMINOPHEN Inactive GABAPENTIN 300 MG CAPS 1 CAP PO TID GABAPENTIN 300 MG CAPS 785799 GABAPENTIN Inactive GABAPENTIN 400 MG ORAL CAPS 1 TAB BY MOUTH THREE TIMES DAILY 2015 GABAPENTIN 400 MG ORAL CAPS 899198 GABAPENTIN Inactive METOPROLOL TARTRATE 50 MG ORAL TABS 1 TAB BY MOUTH TWICE DAILY METOPROLOL TARTRATE 50 MG ORAL TABS 414618 METOPROLOL TARTRATE Inactive ZYLOPRIM 300 MG TAB 1 BY MOUTH DAILY ZYLOPRIM 300 MG TAB 511877 ALLOPURINOL Inactive MECLIZINE HCL 25 MG CHEW TAB 1 four times a day as needed for dizziness 02/21 MECLIZINE HCL 25 MG CHEW TAB 462951 MECLIZINE HCL Inactive ATIVAN 0.5 MG TABS Take 1 tablet 2x daily PRN ATIVAN 0.5 MG TABS 252560 LORAZEPAM Inactive CELEXA 20 MG TABS Take 1 tablet 1x daily CELEXA 20 MG TABS 165262 CITALOPRAM HYDROBROMIDE Inactive ULORIC 40 MG ORAL TABS 1 daily for gout. ULORIC 40 MG ORAL TABS FEBUXOSTAT Inactive BUPROPION HCL ER (SR) 150 MG [id number] 1 twice a day for depression BUPROPION HCL ER (SR) 150 MG [id number]-DXZ BUPROPION HCL Inactive MULTIVITAMINS CAPS 1 DAILY MULTIVITAMINS CAPS MULTIPLE VITAMIN Inactive NORCO 5-325 MG TABS 1-2 TAB Q 6 HRS PRN NORCO 5-325 MG TABS 234041 HYDROCODONE-ACETAMINOPHEN Inactive PHENYTOIN 50 MG CHEW 1 TAB PO BID PHENYTOIN 50 MG CHEW 9883062 PHENYTOIN Inactive FENTANYL 12 MCG/HR PT72 Apply to clean, dry skin and change every 72 hours FENTANYL 12 MCG/HR PT72 511009 FENTANYL Inactive FENTANYL 25 MCG/HR PT72 Apply to clean skin and change every 72 hours. 07/03 FENTANYL 25 MCG/HR PT72 695523 FENTANYL Inactive Advance Directives Directive Description Start [...] mg/dL Encounters Code Encounter Date Provider Facility CPT-00676 Level 3 Est. Patient 19:05:03 CDT Jonel Hemphill MD [facility]-55109 Level 3 Est. Patient 17:30:47 CDT Kevin Link MD [facility]-59401 Level 3 Est. Patient 18:04:07 CDT Joenl Hemphill MD [facility] CPT-02464 Level 3 Est. Patient 17:18:03 CDT Jonel Hemphill MD [facility] CPT-06531 Level 3 Est. Patient 21:58:03 BALL TRUING MACHINE OPERATOR Jonel Hemphill MD [facility] CPT-39058 Level 4 Est. Patient 18:03:14 CDT Jonel Yeager [facility]-12000 Level 4 Est. Patient 13:24:53 CDT Jonel Yeager [facility]83439 Level 4 Est. Patient 09:15:44 CDT Jonel Yeager [facility]-56868 Level 4 Est. Patient 19:16:01 CDT [facility]-07041 Level 4 Est. Patient 11:25:16 CDT Jonel Hemphill MD [facility] CPT-87919 Level 4 Est. Patient 09:00:40 CDT [facility]-53126 Level 4 Est. Patient 14:53:58 CDT Jonel Hemphill MD [facility] CPT-46755 Level 4 Est. Patient 22:59:01 CDT Jonel Hemphill MD [facility]-31956 Level 4 Est. Patient 09:29:57 CDT Jonel Hemphill MD [facility]-91740 Level 4 Est. Patient 12:35:53 BALL TRUING MACHINE OPERATOR Jonel Hemphill MD [facility]-61937 Level 4 Est. Patient 22:36:09 BALL TRUING MACHINE OPERATOR Jonel Hemphill MD [facility]-27532 Level 2 Est. Patient 15:14:15 BALL TRUING MACHINE OPERATOR Mayco Shah APRN [facility]-85895 Level 4 Est. Patient 10:36:22 BALL TRUING MACHINE OPERATOR Jonel Hemphill MD [facility] CPT-91803 Level 4 Est. Patient 22:01:13 BALL TRUING MACHINE OPERATOR Jonel Hemphill MD [facility]-17252 Level 3 Est. Patient 21:50:37 BALL TRUING MACHINE OPERATOR Jonel Hemphill MD [facility] CPT-15057 Level 4 Est. Patient 15:02:43 CDT Rubin Pierre MD [facility]-36723 Level 4 Est. Patient 14:27:35 CDT Jonel Hemphill MD [facility]-71442 Level 4 Est. Patient 12:41:17 CDT Jonel Hemphill MD [facility]-18850 Level 4 Est. Patient 16:18:55 CDT Jonel Hemphill MD [facility] CPT-57673 Level 4 Est. Patient 17:58:05 CDT Jonel Hemphill MD [facility] CPT-49928 Level 4 Est. Patient 22:10:06 CDT Jonel Hemphill MD [facility] CPT-48607 Level 4 Est. Patient 13:22:09 CDT Jonel Hemphill MD [facility] CPT-80833 Level 4 Est. Patient 22:52:17 BALL TRUING MACHINE OPERATOR Jonel Hemphill MD [facility] CPT-05429 Level 3 Est. Patient 22:34:10 BALL TRUING MACHINE OPERATOR Jonel Hemphill MD [facility] CPT-82150 Level 4 Est. Patient 07:49:20 BALL TRUING MACHINE OPERATOR Jonel Hemphill MD [facility] Skilled CPT-58374 Level 3 Est. Patient 08:28:27 BALL TRUING MACHINE OPERATOR Jonel Hemphill MD [facility] Procedures Code Procedure Name Date Entry Date Standard Description CPT-13552 Level 3 Halfway 15:38:24 CDT CPT-87972 Level 3 Halfway 08:18:30 CDT CPT-46883 Level 3 Halfway 19:03:14 CDT CPT-48993 Level 3 Halfway 17:42:11 CDT CPT-41134 Level 3 Halfway 16:04:10 CDT CPT-09755 Level 3 Halfway 19:38:15 BALL TRUING MACHINE OPERATOR CPT-17589 Level 3 Halfway 19:28:48 BALL TRUING MACHINE OPERATOR CPT-88940 Level 3 Halfway 18:02:20 BALL TRUING MACHINE OPERATOR CPT-49321 Level 3 Halfway 15:02:14 BALL TRUING MACHINE OPERATOR CPT-03775 Level 3 Halfway 12:25:37 CDT CPT-94971 Level 3 Halfway 12:48:39 CDT CPT-44935 Level 3 Halfway 17:39:14 CDT CPT-87398 Level 3 Halfway 13:32:58 CDT CPT-48985 Level 3 Halfway 17:43:43 CDT CPT-77899 Level 3 Halfway 12:03:33 BALL TRUING MACHINE OPERATOR CPT-61968 Level 3 Halfway 18:47:28 BALL TRUING MACHINE OPERATOR CPT-80286 Level 3 Halfway 17:35:26 BALL TRUING MACHINE OPERATOR CPT-42090 Level 3 Halfway 18:44:49 BALL TRUING MACHINE OPERATOR CPT-22244 Level 3 Halfway 18:17:33 CDT CPT-06057 Level 3 Halfway 09:25:33 CDT CPT-29314 Level 3 Halfway 19:11:57 CDT CPT-01777 Level 3 Halfway 09:25:52 CDT CPT-13729 Level 3 Halfway 14:23:59 CDT CPT-32166 Level 3 Halfway 12:09:43 CDT CPT-44152 Level 3 Halfway 09:37:40 CDT CPT-85224 Level 3 Halfway 18:23:02 CDT CPT-71427 Level 3 Halfway 14:09:06 CDT CPT-10709 Level 3 Halfway 12:43:27 BALL TRUING MACHINE OPERATOR CPT-19293 Postop F/U Visit 14:10:15 BALL TRUING MACHINE OPERATOR CPT-80571 [facility] 17:07:14 BALL TRUING MACHINE OPERATOR CPT-12064 Level 3 Halfway 16:14:37 BALL TRUING MACHINE OPERATOR CPT-86791 Port a cath flush 11:47:42 CDT CPT-67493 Port a cath flush 08:29:49 CDT CPT-OV Office Visit 14:27:58 BALL TRUING MACHINE OPERATOR
--- OUTSIDE RECORDS SUMMARY | 2016-08-07 11:42 | XMS REPORT | Clinical Summary ---
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 Jonel Hemphill MD Long-term (current) [...] Coronary atherosclerosis of unspecified type of vessel, [place] or graft FH DIABETES V18.0 Resolved Jonel [...] Coronary atherosclerosis of unspecified type of vessel, [place] or graft CONSTIPATION 564.00 Resolved Jonel Hemphill [...] involving pelvic region and thigh 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 USE, CUSTODIAL ICD-V58.69 Inactive Jonel Hemphill MD DIABETES, TYPE [...] Generic Name NDC Status Provider Patient Instruction CPAP APPLY AT HS CPAP Active Jonel Hemphill MD Active METOPROLOL TARTRATE 50 MG ORAL TABS 1 TAB BY MOUTH TWICE DAILY METOPROLOL TARTRATE 61269838128 Active Jonel Hemphill MD Active LISINOPRIL 40 MG TABS 1 tablet by mouth twice daily, for blood pressure 03/31 LISINOPRIL 64354481094 Active Jonel Hemphill MD Active BUPROPION HCL ER (SR) 150 MG [id number] 1 twice a day for depression BUPROPION HCL 55108179105 Active Jonel Hemphill MD Active MULTIVITAMINS CAPS 1 DAILY MULTIPLE VITAMIN 80227500899 Active Jonel Hemphill MD Active ZYLOPRIM 300 MG TAB 1 BY MOUTH DAILY ALLOPURINOL 27987405915 Active Jonel Hemphill MD Active HYDROCODONE-ACETAMINOPHEN 7.5-325 MG TABS 1 q 6 hrs prn HYDROCODONE-ACETAMINOPHEN 44521313042 No Longer Active Jonel Hemphill MD Active DILANTIN 100 MG CAPS 3 cap tid PHENYTOIN SODIUM EXTENDED 43026541427 No Longer Active Jonel Hemphill MD Active BUDEPRION SR 150 MG [id number] 1 bid BUPROPION HCL 78899091308 No Longer Active Jonel Hemphill MD Active ALLOPURINOL 300 MG TABS 1 qd ALLOPURINOL 14481715899 No Longer Active Jonel Hemphill MD Active COZAAR 100 MG TABS 1 qd LOSARTAN POTASSIUM 19552144578 No Longer Active Jonel Hemphill MD Active CVS VITAMIN C 500 MG TABS 1 po daily ASCORBIC ACID 87388036042 No Longer Active Jonel Hemphill MD Active MIRALAX POWD 17 gms in 4 oz water or juice daily POLYETHYLENE GLYCOL 3350 52226300820 No Longer Active Jonel Hemphill MD Active POTASSIUM CHLORIDE CHELA ER 20 MEQ CR-TABS 1 tab PO daily POTASSIUM CHLORIDE CHELA CR 66307923329 No Longer Active Jonel Hemphill MD Active AMBIEN 10 MG TAB 1 tab by mouth at bedtime as needed for sleep ZOLPIDEM TARTRATE 06934171020 No Longer Active Jonel Hemphill MD Active SULFAMETHOXAZOLE-TMP DS 800-160 MG TABS 1 TAB PO BID SULFAMETHOXAZOLE-TRIMETHOPRIM 01545367764 No Longer Active Jonel Hemphill MD Active NORCO 5-325 MG TABS 1-2 TAB Q 6 HRS PRN HYDROCODONE- ACETAMINOPHEN 54419440867 Active Jonel Hemphill MD Active LEVEMIR 100 UNIT/ML SOLN 5 units sub-q at bedtime INSULIN DETEMIR 35951094654 No Longer Active Tova Perez Active MOBIC 15 MG TABS 1 tab PO daily for arthritis pain MELOXICAM 85206103814 No Longer Active Tova Perez Active GLUCAGEN 1 MG SOLR INJECT 1MG IM IF BS LESS THAN 60 & RES. IS UNABLE TO SWALLOW GLUCAGON HCL (RDNA) 20155022752 No Longer Active Tova Chris Active [facility]S MILK OF MAGNESIA 1200 MG/15ML SUSP 30 ml daily for constipation MAGNESIUM HYDROXIDE 35857199071 No Longer Active Tova Chris Active IMDUR 120 MG [id number] 1 qd ISOSORBIDE MONONITRATE 62324133749 No Longer Active Tova Chris Active METFORMIN HCL 500 MG TABS 1 tablet by mouth twice daily METFORMIN HCL 17139147120 Active Tova Chris Active PHENYTOIN 50 MG CHEW 1 TAB PO BID PHENYTOIN 24254090828 Active Tova Chris Active MECLIZINE HCL 25 MG CHEW TAB 1 four times a day as needed for dizziness 02/21 MECLIZINE HCL 17062879657 Active Tova Perez Active GABAPENTIN 300 MG CAPS 1 CAP PO TID GABAPENTIN 32904115248 Active Tova Perez Active NEURONTIN 400 MG CAPS Take one by mouth 3 times daily, morning, afternoon and evening.] GABAPENTIN 63899621759 No Longer Active Tova Perez Active ANTIVERT 25 MG TABS 1 q 6 hrs prn MECLIZINE HCL 75006302609 No Longer Active Jonel Hemphill MD Active CLONIDINE HCL 0.2 MG TABS 1 q 8 hrs as needed -greater than 160-htn CLONIDINE HCL 12467042334 No Longer Active Jonel Hemphill MD Active AMBIEN 10 MG TABS 1 q hs prn ZOLPIDEM TARTRATE 43811833881 No Longer Active Jonel Hemphill MD Active GNP THERAPEUTIC-M TABS 1 qd MULTIPLE VITAMINS- MINERALS 10329540932 No Longer Active Jonel Hemphill MD Active METOPROLOL TARTRATE 50 MG TABS 1 bid METOPROLOL TARTRATE 34085741810 No Longer Active Jonel Hemphill MD Active METFORMIN HCL 500 MG TABS 1 bod with food METFORMIN HCL 89614788649 No Longer Active Jonel Hemphill MD Active LISINOPRIL 40 MG TABS 1 qd LISINOPRIL 94376133009 No Longer Active Jonel Hemphill MD Active HYDROCHLOROTHIAZIDE 25 MG TABS 1 qd HYDROCHLOROTHIAZIDE 02544565667 No Longer Active Jonel Hemphill MD Active DURAGESIC-25 25 MCG/HR PT72 place 1 patch on the skin q72hrs for pain FENTANYL 44126926646 No Longer Active Jonel Hemphill MD Active FENTANYL 75 MCG/HR PT72 place 1 patch on skin q72hrs fr pain 2012 FENTANYL 46920622332 No Longer Active Jonel Hemphill MD Active LASIX 20 MG TABS 1 tab PO q morning FUROSEMIDE 36448400684 Active Jonel Hemphill MD Active FUROSEMIDE 40 MG TABS 1 q am FUROSEMIDE 78453417289 No Longer Active Jonel Hemphill MD Active HEPARIN (PORCINE) LOCK FLUSH 100 UNIT/ML SOLN Flush port a cath monthly every three week on with Heparin and NS HEPARIN LOCK FLUSH 31745807055 Active Jonel Hemphill MD Active FENTANYL 100 MCG/HR PT72 Apply every 3 days FENTANYL 74398997335 Active Jonel Hemphill MD Active FENTANYL 25 MCG/HR PT72 Apply to clean skin and change every 72 hours. 07/03 FENTANYL 45621822329 No Longer Active Jonel Hemphill MD Active FENTANYL 50 MCG/HR PT72 place 1 patch on skin q72 hours FENTANYL 84129704338 No Longer Active Mayco Shah APRN Active ATIVAN 0.5 MG TABS Take 1 tablet 2x daily LORAZEPAM 24251869694 Active Jonel Hemphill MD Active CELEXA 20 MG TABS Take 1 tablet 1x daily CITALOPRAM HYDROBROMIDE 02815733465 Active Jonel Hemphill MD Active DURAGESIC-12 12 MCG/HR PT72 APPLY PATCH TO SKIN AND CHANGE EVERY 72 HOURS, ROTATE SITES FENTANYL 14782226747 No Longer Active Fozia HERNANDEZ Active FUROSEMIDE 20 MG TABS 1 qd FUROSEMIDE 90047411306 No Longer Active Mahogany Bolivar Active ADULT ASPIRIN EC LOW STRENGTH 81 MG TBEC 1 qd ASPIRIN 27291409083 Active MARY Perez Active FUROSEMIDE 20 MG TABS 1 qd FUROSEMIDE 20 MG TABS 454641 FUROSEMIDE Inactive DURAGESIC-12 12 MCG/HR PT72 APPLY PATCH TO SKIN AND CHANGE EVERY 72 HOURS, ROTATE SITES DURAGESIC-12 12 MCG/HR PT72 101799 FENTANYL Inactive FENTANYL 50 MCG/HR PT72 place 1 patch on skin q72 hours FENTANYL 50 MCG/HR PT72 181716 FENTANYL Inactive FUROSEMIDE 40 MG TABS 1 q am FUROSEMIDE 40 MG TABS 190773 FUROSEMIDE Inactive FENTANYL 75 MCG/HR PT72 place 1 patch on skin q72hrs fr pain 2012 FENTANYL 75 MCG/HR PT72 826686 FENTANYL Inactive DURAGESIC-25 25 MCG/HR PT72 place 1 patch on the skin q72hrs for pain DURAGESIC-25 25 MCG/HR PT72 129616 FENTANYL Inactive HYDROCHLOROTHIAZIDE 25 MG TABS 1 qd HYDROCHLOROTHIAZIDE 25 MG TABS 459653 HYDROCHLOROTHIAZIDE Inactive LISINOPRIL 40 MG TABS 1 qd LISINOPRIL 40 MG TABS 228559 LISINOPRIL Inactive METFORMIN HCL 500 MG TABS 1 bod with food METFORMIN HCL 500 MG TABS 127263 METFORMIN HCL Inactive METOPROLOL TARTRATE 50 MG TABS 1 bid METOPROLOL TARTRATE 50 MG TABS 901976 METOPROLOL TARTRATE Inactive GNP THERAPEUTIC-M TABS 1 qd GNP THERAPEUTIC-M TABS MULTIPLE VITAMINS-MINERALS Inactive AMBIEN 10 MG TABS 1 q hs prn AMBIEN 10 MG TABS 747814 ZOLPIDEM TARTRATE Inactive CLONIDINE HCL 0.2 MG TABS 1 q 8 hrs as needed -greater than 160-htn CLONIDINE HCL 0.2 MG TABS 611343 CLONIDINE HCL Inactive ANTIVERT 25 MG TABS 1 q 6 hrs prn ANTIVERT 25 MG TABS MECLIZINE HCL Inactive NEURONTIN 400 MG CAPS Take one by mouth 3 times daily, morning, afternoon and evening.] NEURONTIN 400 MG CAPS 642047 GABAPENTIN Inactive IMDUR 120 MG [id number] 1 qd IMDUR 120 MG [id number] ISOSORBIDE MONONITRATE Inactive CVS MILK OF MAGNESIA [...] for arthritis pain MOBIC 15 MG TABS 505703 MELOXICAM Inactive LEVEMIR 100 UNIT/ML SOLN 5 units sub-q at bedtime LEVEMIR 100 UNIT/ML SOLN INSULIN DETEMIR Inactive SULFAMETHOXAZOLE-TMP DS 800-160 MG TABS 1 TAB PO BID SULFAMETHOXAZOLE-TMP DS 800-160 MG TABS SULFAMETHOXAZOLE-TRIMETHOPRIM Inactive AMBIEN 10 MG TAB 1 tab by mouth at bedtime as needed for sleep AMBIEN 10 MG TAB 200733 ZOLPIDEM TARTRATE Inactive POTASSIUM CHLORIDE CHELA ER 20 MEQ CR-TABS 1 tab PO daily POTASSIUM CHLORIDE CHELA ER 20 MEQ CR-TABS POTASSIUM CHLORIDE CHELA CR Inactive MIRALAX POWD 17 gms in 4 oz water or juice daily MIRALAX POWD 377685 POLYETHYLENE GLYCOL 3350 Inactive CVS VITAMIN C 500 MG TABS 1 po daily CVS VITAMIN C 500 MG TABS 792378 ASCORBIC ACID Inactive COZAAR 100 MG TABS 1 qd COZAAR 100 MG TABS 708520 LOSARTAN POTASSIUM Inactive ALLOPURINOL 300 MG TABS 1 qd ALLOPURINOL 300 MG TABS 910614 ALLOPURINOL Inactive BUDEPRION SR 150 MG [id number] 1 bid BUDEPRION SR 150 MG [id number] BUPROPION HCL Inactive DILANTIN 100 MG CAPS 3 cap tid DILANTIN 100 MG CAPS 108583 PHENYTOIN SODIUM EXTENDED Inactive HYDROCODONE-ACETAMINOPHEN 7.5-325 MG TABS 1 q 6 hrs prn HYDROCODONE-ACETAMINOPHEN 7.5-325 MG TABS 967471 HYDROCODONE- ACETAMINOPHEN Inactive FENTANYL 25 MCG/HR PT72 Apply to clean skin and change every 72 hours. 07/03 FENTANYL 25 MCG/HR PT72 714568 FENTANYL Inactive Advance Directives Directive Description Start Date ADVANCE DIRECTIVE Immunizations Vaccine Administration Date Value Standard Description influenza immunization (Flu Vax) has been administered Influenza - Unspecified Formulation [CVX88] influenza virus vaccine, unspecified formulation pneumococcal immunization administered Pneumovax 23 [CVX33] pneumococcal polysaccharide vaccine, 23 valent Vital Signs Date Name Value Unit Range Description blood pressure, diastolic - 8462-4 82 mm[Hg] [...] rate temperature E&M 98.5 [degF] Body temperature Diagnostic Results Date Name [...] A/B - Chemistry sodium, serum 142 mmol/L 126-894 7757/01/20 potassium, serum 3.9 mmol/L 3.5-5.2 chloride, serum [...] Acid - Chemistry sodium, serum 141 mmol/L 297-411 1851/05/09 potassium, serum 3.9 mmol/L 3.5-5.2 chloride, serum [...] Comp. Metabolic Panel, Uric Acid - Hematology mean corpuscular hemoglobin, RBC 32.1 pg 27.0-31.2 mean corpuscular hemoglobin concentration, RBC 33.6 G/DL % 31.8- 35.4 red blood cell distribution width 14.7 % 11.6-14.8 platelet count 129 Verified By Repeat Analysis 10^3/mm^3 10*3/ mm3 675-752 7610/05/09 mean corpuscular volume, RBC 96 fL 80-97 hematocrit, blood 43.3 % 41.0-53.0 hemoglobin, blood 14.5 g/dL 13.5-17.5 erythrocyte (RBC) count 4.53 10^6/MM^3 10*6/mm3 4.69-6.13 leukocyte count, blood 7.3 10^3/MM^3 10*3/mm3 4.6-10.2 Lab Report: CMP, URIC ACID - Chemistry sodium, serum 142 mmol/L potassium, serum 4.5 mmol/L blood glucose 94 mg/dL creatinine, serum 0.79 mg/dL aspartate aminotransferase (SGOT), serum 24 U/L alanine aminotransferase (SGPT), serum 28 U/L alkaline phosphatase, serum 54 U/L Encounters Code Encounter Date Provider Facility CPT-25269 Level 3 Est. Patient 18:04:07 CDT Jonel Hemphill MD [facility] CPT-18990 Level 3 Est. Patient 17:18:03 CDT Jonel Hemphill MD [facility] CPT-70496 Level 3 Est. Patient 21:58:03 TITLE COORDINATOR Jonel Hemphill MD [facility] CPT-54319 Level 4 Est. Patient 18:03:14 CDT Jonel Hemphill MD [facility]-17275 Level 4 Est. Patient 13:24:53 CDT Jonel Hemphill MD [facility]-11289 Level 4 Est. Patient 09:15:44 CDT Jonel Hemphill MD [facility]-23772 Level 4 Est. Patient 19:16:01 CDT Jonel Hemphill MD [facility]-30575 Level 4 Est. Patient 11:25:16 CDT Jonel Hemphill MD [facility] CPT-32853 Level 4 Est. Patient 09:00:40 CDT Jonel Hemphill MD [facility]-27652 Level 4 Est. Patient 14:53:58 CDT Jonel Hemphill MD [facility]-23456 Level 4 Est. Patient 22:59:01 CDT Jonel Hemphill MD [facility]-38201 Level 4 Est. Patient 09:29:57 CDT Jonel Hemphill MD [facility]-83519 Level 4 Est. Patient 12:35:53 TITLE COORDINATOR Jonel Hemphill MD [facility]-02482 Level 4 Est. Patient 22:36:09 TITLE COORDINATOR Jonel Hemphill MD [facility]-34796 Level 2 Est. Patient 15:14:15 TITLE COORDINATOR Mayco Shah APRN [facility] CPT-81951 Level 4 Est. Patient 10:36:22 TITLE COORDINATOR Jonel Hemphill MD [facility] CPT-98296 Level 4 Est. Patient 22:01:13 TITLE COORDINATOR Jonel Hemphill MD [facility]-43967 Level 3 Est. Patient 21:50:37 TITLE COORDINATOR Jonel Hemphill MD [facility] CPT-64353 Level 4 Est. Patient 15:02:43 CDT Rubin Pierre MD [facility] CPT-11716 Level 4 Est. Patient 14:27:35 CDT Jonel Hemphill MD [facility]-37161 Level 4 Est. Patient 12:41:17 CDT Jonel Hemphill MD [facility] CPT-62096 Level 4 Est. Patient 16:18:55 CDT Jonel Hemphill MD [facility]-09133 Level 4 Est. Patient 17:58:05 CDT Jonel Hemphill MD [facility] CPT-48504 Level 4 Est. Patient 22:10:06 CDT Jonel Hemphill MD [facility] CPT-93986 Level 4 Est. Patient 13:22:09 CDT Jonel Hemphill MD [facility]-69711 Level 4 Est. Patient 22:52:17 TITLE COORDINATOR Jonel Hemphill MD [facility] CPT-40640 Level 3 Est. Patient 22:34:10 TITLE COORDINATOR Jonel Hemphill MD [facility]-99693 Level 4 Est. Patient 07:49:20 TITLE COORDINATOR Jonel Hemphill MD [facility] Skilled CPT-65722 Level 3 Est. Patient 08:28:27 TITLE COORDINATOR Jonel Hemphill MD [facility] Procedures Code Procedure Name Date Entry Date Standard Description CPT-06762 Level 3 Custodial 12:03:33 TITLE COORDINATOR CPT-35368 Level 3 Custodial 18:47:28 TITLE COORDINATOR CPT-98929 Level 3 Custodial 17:35:26 TITLE COORDINATOR CPT-55069 Level 3 Custodial 18:44:49 TITLE COORDINATOR CPT-17446 Level 3 Custodial 18:17:33 CDT CPT-75141 Level 3 Custodial 09:25:33 CDT CPT-27537 Level 3 Custodial 19:11:57 CDT CPT-44939 Level 3 Custodial 09:25:52 CDT CPT-21689 Level 3 Custodial 14:23:59 CDT CPT-50173 Level 3 Custodial 12:09:43 CDT CPT-40908 Level 3 Custodial 09:37:40 CDT CPT-72270 Level 3 Custodial 18:23:02 CDT CPT-79005 Level 3 Custodial 14:09:06 CDT CPT-26567 Level 3 Custodial 12:43:27 TITLE COORDINATOR CPT-69773 Postop F/U Visit 14:10:15 TITLE COORDINATOR CPT-20287 [facility] 17:07:14 TITLE COORDINATOR CPT-09874 Level 3 Custodial 16:14:37 TITLE COORDINATOR CPT-70316 Port a cath flush 11:47:42 CDT CPT-38217 Port a cath flush 08:29:49 CDT CPT-OV Office Visit 14:27:58 TITLE COORDINATOR
--- OUTSIDE RECORDS SUMMARY | 2016-08-07 11:44 | XMS REPORT | Clinical Summary ---
Author Author Admin, KARLAGoodyTag Organization [facility] Address Unknown Phone Allergies, Adverse Reactions, Alerts Allergy Name Reaction Description Start Date Severity Status Provider PENICILLIN Critical Active [place] Conditions or Problems Problem Name Problem Code [...] C V A / STROKE 436 Active [place] Acute, but ill- defined, cerebrovascular disease C O P D 496 Active [place] Chronic airway obstruction, not elsewhere classified DIABETES, TYPE 2 250.00 Resolved Jonel Hemphill MD Diabetes mellitus without mention of complication, type II or unspecified type, not stated as uncontrolled SEIZURE DISORDER 780.39 Active [place] Other convulsions CORONARY HEART DISEASE 414.00 Resolved Jonel Hemphill MD Coronary atherosclerosis of unspecified type of vessel, belkofski or graft FH DIABETES V18.0 Resolved Jonel [...] Coronary atherosclerosis of unspecified type of vessel, belkofski or graft CONSTIPATION 564.00 Resolved Jonel Hemphill [...] MD Dermatophytosis of the body 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 USE, SKILLED NURSING ICD-V58.69 Inactive Jonel Hemphill MD DIABETES, TYPE [...] TAB Q 6 HRS PRN HYDROCODONE- ACETAMINOPHEN 84791976085 Active Jonel Hemphill MD Active LEVEMIR 100 UNIT/ML SOLN 5 units sub-q at bedtime INSULIN DETEMIR 03055750206 No Longer Active Tova Perez Active MOBIC 15 MG TABS 1 tab PO daily for arthritis pain MELOXICAM 72810115101 No Longer Active Tova Perez Active GLUCAGEN 1 MG SOLR INJECT 1MG IM IF BS LESS THAN 60 & RES. IS UNABLE TO SWALLOW GLUCAGON HCL (RDNA) 47452920504 No Longer Active Tova Perez Active [facility] MILK OF MAGNESIA 1200 MG/15ML SUSP 30 ml daily for constipation MAGNESIUM HYDROXIDE 14660021537 No Longer Active Tova Perez Active IMDUR 120 MG [id number] 1 qd ISOSORBIDE MONONITRATE 68966811021 No Longer Active Tova Perez Active METFORMIN HCL 500 MG TABS 1 tablet by mouth twice daily METFORMIN HCL 08530586791 Active Tova Perez Active SULFAMETHOXAZOLE-TMP DS 800-160 MG TABS 1 TAB PO BID SULFAMETHOXAZOLE-TRIMETHOPRIM 75532294701 Active Tova Perez Active PHENYTOIN 50 MG CHEW 1 TAB PO BID PHENYTOIN 99014859414 Active Tova Perez Active MECLIZINE HCL 25 MG CHEW TAB 1 four times a day as needed for dizziness 02/21 MECLIZINE HCL 90031899571 Active Tova Perez Active GABAPENTIN 300 MG CAPS 1 CAP PO TID GABAPENTIN 63034997009 Active Tova Perez Active NEURONTIN 400 MG CAPS Take one by mouth 3 times daily, morning, afternoon and evening.] GABAPENTIN 20661111433 No Longer Active Tova Perez Active AMBIEN 10 MG TAB 1 tab by mouth at bedtime as needed for sleep ZOLPIDEM TARTRATE 69288788665 Active Jonel Hemphill MD Active POTASSIUM CHLORIDE CHELA ER 20 MEQ CR-TABS 1 tab PO daily POTASSIUM CHLORIDE CHELA CR 23447263796 Active Jonel Hemphill MD Active ANTIVERT 25 MG TABS 1 q 6 hrs prn MECLIZINE HCL 85682128954 No Longer Active Jonel Hemphill MD Active CLONIDINE HCL 0.2 MG TABS 1 q 8 hrs as needed -greater than 160-htn CLONIDINE HCL 76334307790 No Longer Active Jonel Hemphill MD Active AMBIEN 10 MG TABS 1 q hs prn ZOLPIDEM TARTRATE 84378132299 No Longer Active Jonel Hemphill MD Active GNP THERAPEUTIC-M TABS 1 qd MULTIPLE VITAMINS- MINERALS 96797265194 No Longer Active Jonel Hemphill MD Active METOPROLOL TARTRATE 50 MG TABS 1 bid METOPROLOL TARTRATE 78761810281 No Longer Active Jonel Hemphill MD Active METFORMIN HCL 500 MG TABS 1 bod with food METFORMIN HCL 61715914747 No Longer Active Jonel Hemphill MD Active LISINOPRIL 40 MG TABS 1 qd LISINOPRIL 47992179887 No Longer Active Jonel Hemphill MD Active HYDROCHLOROTHIAZIDE 25 MG TABS 1 qd HYDROCHLOROTHIAZIDE 04802558735 No Longer Active Jonel Hemphill MD Active DURAGESIC-25 25 MCG/HR PT72 place 1 patch on the skin q72hrs for pain FENTANYL 95305319401 No Longer Active Jonel Hemphill MD Active FENTANYL 75 MCG/HR PT72 place 1 patch on skin q72hrs fr pain 2012 FENTANYL 76567615336 No Longer Active Jonel Hemphill MD Active LASIX 20 MG TABS 1 tab PO q morning FUROSEMIDE 10449012600 Active Jonel Hemphill MD Active FUROSEMIDE 40 MG TABS 1 q am FUROSEMIDE 43289926008 No Longer Active Jonel Hemphill MD Active HEPARIN (PORCINE) LOCK FLUSH 100 UNIT/ML SOLN Flush port a cath monthly every three week on with Heparin and NS HEPARIN LOCK FLUSH 88549954492 Active Jonel Hemphill MD Active FENTANYL 100 MCG/HR PT72 Apply every 3 days FENTANYL 69388385381 Active Jonel Hemphill MD Active FENTANYL 25 MCG/HR PT72 Apply to clean skin and change every 72 hours. 07/03 FENTANYL 87036228311 No Longer Active Jonel Hemphill MD Active FENTANYL 50 MCG/HR PT72 place 1 patch on skin q72 hours FENTANYL 90317842077 No Longer Active Mayco Shah APRN Active HYDROCODONE-ACETAMINOPHEN 7.5-325 MG TABS 1 q 6 hrs prn HYDROCODONE-ACETAMINOPHEN 97116330616 Active Jonel Hemphill MD Active ATIVAN 0.5 MG TABS Take 1 tablet 2x daily LORAZEPAM 21750467155 Active Jonel Hemphill MD Active CELEXA 20 MG TABS Take 1 tablet 1x daily CITALOPRAM HYDROBROMIDE 21949597903 Active Jonel Hemphill MD Active MIRALAX POWD 17 gms in 4 oz water or juice daily POLYETHYLENE GLYCOL 3350 96701321383 Active Rubin Pierre MD Active DURAGESIC-12 12 MCG/HR PT72 APPLY PATCH TO SKIN AND CHANGE EVERY 72 HOURS, ROTATE SITES FENTANYL 17282889949 No Longer Active Fozia YANGA Active [facility] VITAMIN C 500 MG TABS 1 po daily ASCORBIC ACID 65233513124 Active Mahogany [place] Active FUROSEMIDE 20 MG TABS 1 qd FUROSEMIDE 31694449898 No Longer Active Mahogany [place] Active ADULT ASPIRIN EC LOW STRENGTH 81 MG TBEC 1 qd ASPIRIN 82898802989 Active Gregor Tisha Active DILANTIN 100 MG CAPS 3 cap tid PHENYTOIN SODIUM EXTENDED 19527268063 Active Gregor [place] Active BUDEPRION SR 150 MG [id number] 1 bid BUPROPION HCL 23703995617 Active Gregor Tisha Active ALLOPURINOL 300 MG TABS 1 qd ALLOPURINOL 81889370957 Active [place] Active COZAAR 100 MG TABS 1 qd LOSARTAN POTASSIUM 16872475588 Active Gregor Tisha Active FUROSEMIDE 20 MG TABS 1 qd FUROSEMIDE 20 MG TABS 570543 FUROSEMIDE Inactive DURAGESIC-12 12 MCG/HR PT72 APPLY PATCH TO SKIN AND CHANGE EVERY 72 HOURS, ROTATE SITES DURAGESIC-12 12 MCG/HR PT72 367565 FENTANYL Inactive FENTANYL 50 MCG/HR PT72 place 1 patch on skin q72 hours FENTANYL 50 MCG/HR PT72 792012 FENTANYL Inactive FUROSEMIDE 40 MG TABS 1 q am FUROSEMIDE 40 MG TABS 294366 FUROSEMIDE Inactive FENTANYL 75 MCG/HR PT72 place 1 patch on skin q72hrs fr pain 2012 FENTANYL 75 MCG/HR PT72 926631 FENTANYL Inactive DURAGESIC-25 25 MCG/HR PT72 place 1 patch on the skin q72hrs for pain DURAGESIC-25 25 MCG/HR PT72 301220 FENTANYL Inactive HYDROCHLOROTHIAZIDE 25 MG TABS 1 qd HYDROCHLOROTHIAZIDE 25 MG TABS 108166 HYDROCHLOROTHIAZIDE Inactive LISINOPRIL 40 MG TABS 1 qd LISINOPRIL 40 MG TABS 047694 LISINOPRIL Inactive METFORMIN HCL 500 MG TABS 1 bod with food METFORMIN HCL 500 MG TABS 704435 METFORMIN HCL Inactive METOPROLOL TARTRATE 50 MG TABS 1 bid METOPROLOL TARTRATE 50 MG TABS 683013 METOPROLOL TARTRATE Inactive GNP THERAPEUTIC-M TABS 1 qd GNP THERAPEUTIC-M TABS MULTIPLE VITAMINS-MINERALS Inactive AMBIEN 10 MG TABS 1 q hs prn AMBIEN 10 MG TABS 026918 ZOLPIDEM TARTRATE Inactive CLONIDINE HCL 0.2 MG TABS 1 q 8 hrs as needed -greater than 160-htn CLONIDINE HCL 0.2 MG TABS 734778 CLONIDINE HCL Inactive ANTIVERT 25 MG TABS 1 q 6 hrs prn ANTIVERT 25 MG TABS MECLIZINE HCL Inactive NEURONTIN 400 MG CAPS Take one by mouth 3 times daily, morning, afternoon and evening.] NEURONTIN 400 MG CAPS 742836 GABAPENTIN Inactive IMDUR 120 MG [id number] 1 qd IMDUR 120 MG [id number] ISOSORBIDE MONONITRATE Inactive [facility] MILK OF MAGNESIA [...] for arthritis pain MOBIC 15 MG TABS 006620 MELOXICAM Inactive LEVEMIR 100 UNIT/ML SOLN 5 units sub-q at bedtime LEVEMIR 100 UNIT/ML SOLN INSULIN DETEMIR Inactive FENTANYL 25 MCG/HR PT72 Apply to clean skin and change every 72 hours. 07/03 FENTANYL 25 MCG/HR PT72 617761 FENTANYL Inactive Advance Directives Directive Description Start [...] Outside labs entered on flowsheet - Chemistry carbon dioxide, venous blood 25.8 mmol/L urea nitrogen, blood 26 mg/dL blood glucose 100 mg/dL creatinine, serum 1.22 mg/dL aspartate aminotransferase (SGOT), serum 19 U/L alanine aminotransferase (SGPT), serum 44 U/L bilirubin, serum, total 0.1 mg/dL alkaline phosphatase, serum 79 U/L calcium, serum 8.6 mg/dL sodium, serum 139 mmol/L potassium, serum 4.1 mmol/L chloride, serum 104 mmol/L Chart Maintenance: Outside labs entered on flowsheet - Hematology erythrocyte (RBC) count 2.7 10*6/mm3 hemoglobin, blood 8.5 g/dL hematocrit, blood 27.9 % mean corpuscular volume, RBC 104.5 fL mean corpuscular hemoglobin, RBC 31.8 pg red blood cell distribution width 16.9 % platelet count 130 10*3/mm3 leukocyte count, blood 5.7 10*3/mm3 Clinical Lists Update: CBC W/ DIFF - Hematology red blood cell distribution width 15.0 % mean corpuscular hemoglobin, RBC 30.3 pg hemoglobin, blood 13.6 g/dL hematocrit, blood 40.0 % Clinical Lists Update: CBC W/ DIFF, [...] DIFF, CMP, DILANTIN, PLT, RBCMORPH - Hematology hematocrit, blood 41.1 % mean corpuscular hemoglobin, RBC 29.4 pg red blood cell distribution width 16.4 % hemoglobin, blood 13.8 g/dL Lab Report: Basic Metabolic Panel - Chemistry sodium, serum 141 mmol/L 339-546 5455/07/01 potassium, serum 3.4 mmol/L 3.5-5.2 chloride, serum 104 mmol/L 98-107 carbon dioxide, venous blood 27.3 mmol/L 21.0-32.0 blood glucose 101 mg/dL 65-110 calcium, serum 8.9 mg/dL 8.5-10.1 urea nitrogen, blood 15 mg/dL 7-18 creatinine, serum 1.10 mg/dL 0.60-1.30 calcium, serum 8.8 mg/dL 8.5-10.1 carbon dioxide, venous blood 18.7 mmol/L 21.0-32.0 blood glucose 153 mg/dL 65-110 urea nitrogen, blood 82 mg/dL 7-18 creatinine, serum 2.50 mg/dL 0.60-1.30 sodium, serum 137 mmol/L 153-628 2085/06/14 potassium, serum 7.1 mmol/L 3.5-5.2 chloride, serum 107 mmol/L 98-107 sodium, serum 140 mmol/L 471-348 3106/05/31 urea nitrogen, blood 47 mg/dL 7-18 creatinine, serum 1.70 mg/dL 0.60-1.30 potassium, serum 5.5 mmol/L 3.5-5.2 chloride, serum 108 mmol/L 98-107 carbon dioxide, venous blood 22.8 mmol/L 21.0-32.0 blood glucose 88 mg/dL 65-110 calcium, serum 9.1 mg/dL 8.5-10.1 carbon dioxide, venous blood 22.0 mmol/L 21.0-32.0 potassium, serum 6.5 mmol/L 3.5-5.2 chloride, serum 105 mmol/L 98-107 blood glucose 132 mg/dL 65-110 calcium, serum 8.7 mg/dL 8.5-10.1 urea nitrogen, blood 71 mg/dL 7-18 creatinine, serum 2.10 mg/dL 0.60-1.30 sodium, serum 137 mmol/L 136-145 Lab Report: CBC W/ DIFF - Hematology hemoglobin, blood 14.2 g/dL hematocrit, blood 42.8 % hemoglobin, blood 14.3 g/dL hematocrit, blood 42.1 % mean corpuscular hemoglobin, RBC 29.3 pg red blood cell distribution width 16.1 % mean corpuscular hemoglobin, RBC 30.1 pg [...] Report: CBC W/ DIFF, BMP - Hematology erythrocyte (RBC) count 4.9 10*6/mm3 hemoglobin, blood 13.9 g/dL hematocrit, blood 43.1 % mean corpuscular volume, RBC 88.9 fL mean corpuscular hemoglobin, RBC 28.7 pg red blood cell distribution width 16.6 % platelet count 126 10*3/mm3 leukocyte count, blood 5.0 10*3/mm3 Lab Report: CBC W/DIFF - Hematology [...] Report: CBC, Comp. Metabolic Panel - Chemistry potassium, serum 6.9 mmol/L 3.5-5.2 chloride, serum [...] serum, total 0.14 mg/dL 0.00-1.00 sodium, serum 138 mmol/L 136-145 Lab Report: CBC, Comp. Metabolic Panel - Hematology platelet count 159 UL 10*3/mm3 883-344 5459/05/24 red blood cell distribution width 14.8 % 11.6-14.8 mean corpuscular hemoglobin concentration, RBC 32.7 G/DL % 31.8- 35.4 mean corpuscular hemoglobin, RBC 33.2 pg 27.0-31.2 mean corpuscular volume, RBC 101 fL 80-97 hematocrit, blood 29.2 % 41.0-53.0 hemoglobin, blood 9.6 g/dL 13.5-17.5 erythrocyte (RBC) count 2.88 UL 10*6/mm3 4.69-6.13 leukocyte count, blood 6.2 UL 10*3/mm3 4.6-10.2 Lab Report: CBC, Comp. Metabolic Panel, HGBA1C, UADIP W/MICRO, AUTO, MAY ... - Chemistry RBC, urine, dipstick Negative Negative albumin/creatinine ratio, urine 30 - 300 mg/g mg/g{creat} 0-29 chloride, serum 102 mmol/L 98-107 carbon dioxide, [...] Negative mg/dL Negative sodium, serum 142 mmol/L 295-059 5565/07/15 potassium, serum 3.9 mmol/L 3.5-5.2 Lab Report: CBC, Comp. Metabolic Panel, HGBA1C, UADIP W/MICRO, AUTO, MAY ... - Hematology erythrocyte (RBC) count 3.61 10^6/MM^3 10*6/mm3 4.69-6.13 hemoglobin, blood 11.7 g/dL 13.5-17.5 hematocrit, blood 35.7 % 41.0-53.0 mean corpuscular volume, RBC 99 fL 80-97 mean corpuscular hemoglobin, RBC 32.4 pg 27.0-31.2 mean corpuscular hemoglobin concentration, RBC 32.8 G/DL % 31.8- 35.4 red blood cell distribution width 13.4 % 11.6-14.8 platelet count 182 10^3/MM^3 10*3/mm3 657-246 0100/07/15 leukocyte count, blood 6.2 10^3/MM^3 10*3/mm3 4.6-10.2 Lab Report: CBC, Comp. Metabolic Panel, HGBA1C, [...] Comp. Metabolic Panel, Uric Acid - Chemistry chloride, serum 103 mmol/L 98-107 carbon dioxide, [...] 0.00-1.00 uric acid, serum 4.8 mg/dL 2.6-7.2 sodium, serum 141 mmol/L 804-798 5777/05/09 potassium, serum 3.9 mmol/L 3.5-5.2 Lab Report: CBC, Comp. Metabolic Panel, Uric [...] AUTO - Chemistry sodium, serum 140 mmol/L 210-155 1292/02/18 blood glucose 90 mg/dL 65-110 urea nitrogen, blood 14 mg/dL 7-18 potassium, serum 3.8 mmol/L 3.5-5.2 chloride, serum 102 mmol/L 98-107 aspartate aminotransferase (SGOT), serum 18 U/L 15-37 alkaline phosphatase, serum 87 U/L 50-136 calcium, serum 8.4 mg/dL 8.5-10.1 carbon dioxide, venous blood 30.3 mmol/L 21.0-32.0 creatinine, serum 0.80 mg/dL 0.60-1.30 protein, total urine random Negative mg/dL Negative alanine aminotransferase (SGPT), serum 29 U/L 12-78 bilirubin, serum, total 0.40 mg/dL 0.00-1.00 RBC, urine, dipstick Negative Negative Lab Report: Comp. Metabolic Panel, UADIP W/MICRO, AUTO - Urinalysis urobilinogen, urine, semiquantitative (dipstick) 0.2 Normal leukocyte esterase, urine, by dipstick Negative Negative nitrite, urine, semiquantitative Negative Negative urine color Yellow Colorless;Lightyellow;Straw;Yellow appearance, urine Clear Clear specific gravity, urine 1.025 1.000-1.030 pH, urine, semiquantitative 6.0 5.0-8.5 glucose, urine, semiquantitative Negative Negative ketones, urine, by test strip Negative Negative bilirubin, urine Negative Negative Lab Report: Comp. Metabolic Panel, Uric Acid - Chemistry carbon dioxide, venous blood 22.9 mmol/L 21.0-32.0 bilirubin, serum, total 0.15 mg/dL 0.00-1.00 uric acid, serum 6.0 mg/dL 2.6-7.2 blood glucose 135 mg/dL 65-110 urea nitrogen, blood 78 mg/dL 7-18 sodium, serum 141 mmol/L 307-080 2939/06/11 potassium, serum 5.9 mmol/L 3.5-5.2 chloride, serum 108 mmol/L 98-107 creatinine, serum 2.70 mg/dL 0.60-1.30 alanine aminotransferase (SGPT), serum 35 U/L 12-78 aspartate aminotransferase (SGOT), serum 14 U/L 15-37 alkaline phosphatase, serum 76 U/L 50-136 calcium, serum 8.7 mg/dL 8.5-10.1 Lab Report: MICROALBUMIN, UADIP W/MICRO, AUTO - Chemistry protein, total urine random Negative mg/dL Negative albumin/creatinine ratio, urine < 30 mg/g mg/g{creat} 0-29 RBC, urine, dipstick Negative Negative Lab Report: MICROALBUMIN, UADIP W/MICRO, AUTO - Lab microalbumin, urine 30 0-19 Lab Report: MICROALBUMIN, UADIP W/MICRO, AUTO - Urinalysis urobilinogen, urine, semiquantitative (dipstick) 0.2 Normal leukocyte esterase, urine, by dipstick Negative Negative nitrite, urine, semiquantitative Negative Negative urate crystals, amorphous, urine, semiquantitative Large None seen urine color Yellow Colorless;Lightyellow;Straw;Yellow appearance, urine Cloudy Clear specific gravity, urine 1.025 1.000-1.030 pH, urine, semiquantitative 5.0 5.0-8.5 glucose, urine, semiquantitative Negative Negative ketones, urine, by test strip Negative Negative bilirubin, urine Negative Negative Lab Report: PHENYTOIN - Toxicology phenytoin level, serum <2.5 mg/L ug/mL 10.0-20.0 Encounters Code Encounter Date Provider Facility CPT-11166 Level 3 Est. Patient 17:18:03 CDT Jonel Hemphill MD [facility] CPT-57781 Level 3 Est. Patient 21:58:03 GEOMORPHOLOGY TEACHER Jonel Hemphill MD [facility] CPT-63568 Level 4 Est. Patient 18:03:14 CDT Jonel Yeager [facility]-08643 Level 4 Est. Patient 13:24:53 CDT Jonel Yeager [facility]-79171 Level 4 Est. Patient 09:15:44 CDT Jonel Yeager [facility]-73450 Level 4 Est. Patient 19:16:01 CDT Jonel Yeager [facility]-95352 Level 4 Est. Patient 11:25:16 CDT Jonel Hemphill MD [facility] CPT-81924 Level 4 Est. Patient 09:00:40 CDT Jonel Yeager [facility]-64301 Level 4 Est. Patient 14:53:58 CDT Jonel Hemphill MD [facility]-23867 Level 4 Est. Patient 22:59:01 CDT Jonel Hemphill MD [facility]-99429 Level 4 Est. Patient 09:29:57 CDT Jonel Hemphill MD [facility]-89390 Level 4 Est. Patient 12:35:53 GEOMORPHOLOGY TEACHER Jonel Hemphill MD [facility] CPT-11082 Level 4 Est. Patient 22:36:09 GEOMORPHOLOGY TEACHER Jonel Hemphill MD [facility]-63387 Level 2 Est. Patient 15:14:15 GEOMORPHOLOGY TEACHER Mayco Shah APRN [facility] CPT-48409 Level 4 Est. Patient 10:36:22 GEOMORPHOLOGY TEACHER Jonel Hemphill MD [facility] CPT-88234 Level 4 Est. Patient 22:01:13 GEOMORPHOLOGY TEACHER Jonel Hemphill MD [facility] CPT-05581 Level 3 Est. Patient 21:50:37 GEOMORPHOLOGY TEACHER Jonel Hemphill MD [facility] CPT-07271 Level 4 Est. Patient 15:02:43 CDT Rubin Pierre MD [facility] CPT-42958 Level 4 Est. Patient 14:27:35 CDT Jonel Hemphill MD [facility]-97277 Level 4 Est. Patient 12:41:17 CDT Jonel Hemphill MD [facility] CPT-88793 Level 4 Est. Patient 16:18:55 CDT Jonel Hemphill MD [facility]-23258 Level 4 Est. Patient 17:58:05 CDT Jonel Hemphill MD [facility] CPT-39200 Level 4 Est. Patient 22:10:06 CDT Jonel Hemphill MD [facility] CPT-34765 Level 4 Est. Patient 13:22:09 CDT Jonel Hemphill MD [facility] CPT-85498 Level 4 Est. Patient 22:52:17 GEOMORPHOLOGY TEACHER Jonel eHmphill MD [facility]-92922 Level 3 Est. Patient 22:34:10 GEOMORPHOLOGY TEACHER Jonel Hemphill MD [facility]-79511 Level 4 Est. Patient 07:49:20 GEOMORPHOLOGY TEACHER Jonel Hemphill MD [facility] CPT-45954 Level 3 Est. Patient 08:28:27 GEOMORPHOLOGY TEACHER Jonel Hemphill MD [facility] Procedures Code Procedure Name Date Entry Date Standard Description CPT-55644 Level 3 Skilled Nursing 12:09:43 CDT CPT-43396 Level 3 Skilled Nursing 09:37:40 CDT CPT-86504 Level 3 Skilled Nursing 18:23:02 CDT CPT-45110 Level 3 Skilled Nursing 14:09:06 CDT CPT-79877 Level 3 Skilled Nursing 12:43:27 GEOMORPHOLOGY TEACHER CPT-24034 Postop F/U Visit 14:10:15 GEOMORPHOLOGY TEACHER CPT-43096 [facility] 17:07:14 GEOMORPHOLOGY TEACHER CPT-62226 Level 3 Skilled Nursing 16:14:37 GEOMORPHOLOGY TEACHER CPT-36980 Port a cath flush 11:47:42 CDT CPT-21662 Port a cath flush 08:29:49 CDT CPT-OV Office Visit 14:27:58 GEOMORPHOLOGY TEACHER
--- OUTSIDE RECORDS SUMMARY | 2016-08-07 11:45 | XMS REPORT ---
Author Author [facility] Medical Staff Organization [facility] Address [address], [place] [id number] Phone [phone] Care Team Providers Care Railway Station Manager Name Role Phone FRANKO HEMPHILL MD PP [phone] Summary purpose TRANSITION OF CARE AUTO GENERATION [...] tests and/or laboratory data RESULTS Radiology Results 25-04-653915:20:00 Ankle 3 View PACs Image DATE OF [...] ankle. No acute bony abnormality. MD ALTHEA Morales/sd08/25/2015 08:15:00 / 08/25/2015 08:34:20 cc:Dr. Franko Hemphill [...] acute bony abnormality. MD ALTHEA Morales/crista08/25/2015 08:15:00 08/25/2015 08:34:20 cc:Dr. Franko Hemphill This document has been electronically Signed by: MANPREET NICHOLS MD On: Aug 24:20A Result Amended on 2015-08-25 at 09:20:18. Previous status was [place]. Thoracic Spine - 3 View PACs Image [...] definite acute abnormality. MD ALTHEA Morales/crista08/25/2015 08:17:00 08/25/2015 08:35:09 cc:Dr. Franko Hemphill This document has been electronically Signed by: MANPREET NICHOLS MD On: Aug 24:20A Result Amended on 2015-08-25 at 09:20:19. Previous status was [place]. History of procedures Procedure Code Code Type Description Date Performed Performing Physician 88826 CPT-4 X-RAY EXAM OF THORACIC SPINE 08-25-2015 ANTONIA HOGAN 00265 CPT-4 X-RAY EXAM OF ANKLE 08-25-2015 ANTONIA HOGAN A9270 CPT-4 NON-COVERED ITEM OR SERVICE 08-25-2015 ANTONIA HOGAN A9270 CPT-4 NON-COVERED ITEM OR SERVICE 08-25-2015 ANTONIA HOGAN 70135 CPT-4 EMERGENCY DEPT VISIT 08-24-2015 ANTONIA HOGAN 92874 CPT-4 EMERGENCY DEPT VISIT 08-24-2015 ANTONIA HOGAN Functional status Functional Status Finding [...]
--- OUTSIDE RECORDS SUMMARY | 2016-08-07 11:45 | XMS REPORT | Clinical Summary ---
Author Author Admin, KARLAE Organization [facility] Address Unknown Phone Unavailable Allergies, Adverse Reactions, 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, [employer] V58.69 Resolved Jonel Hemphill MD Long-term [...] Coronary atherosclerosis of unspecified type of vessel, mechoopda or graft FH DIABETES V18.0 Resolved Jonel [...] Coronary atherosclerosis of unspecified type of vessel, mechoopda or graft CONSTIPATION 564.00 Resolved Jonel Hemphill [...] Jonel Hemphill MD Acute bronchitis 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 USE, NURSING HOME ICD-V58.69 Inactive Jonel Hemphill MD DIABETES, TYPE 2 ICD-250.00 Inactive Jnoel Hemphill MD CORONARY HEART DISEASE ICD-414.00 Inactive [...] TAB BY MOUTH THREE TIMES DAILY GABAPENTIN 35371223572 Active Jonel Hemphill MD Active GABAPENTIN 300 MG CAPS 1 CAP PO TID GABAPENTIN 46516153187 No Longer Active Jonel Hemphill MD Active DILANTIN 100 MG ORAL CAPS 1 THREE TIMES DAILY FOR SEIZURES PHENYTOIN SODIUM EXTENDED 79340011619 Active Marleni Romero Active CPAP APPLY AT HS CPAP Active Jonel Hemphill MD Active METOPROLOL TARTRATE 50 MG ORAL TABS 1 TAB BY MOUTH TWICE DAILY METOPROLOL TARTRATE 55955842401 Active Jonel Hemphill MD Active LISINOPRIL 40 MG TABS 1 tablet by mouth twice daily, for blood pressure 03/31 LISINOPRIL 33431617174 Active Jonel Hemphill MD Active BUPROPION HCL ER (SR) 150 MG [id number] 1 twice a day for depression BUPROPION HCL 02633770757 Active Jonel Hemphill MD Active MULTIVITAMINS CAPS 1 DAILY MULTIPLE VITAMIN 65410986140 Active Jonel Hemphill MD Active ZYLOPRIM 300 MG TAB 1 BY MOUTH DAILY ALLOPURINOL 83081000676 Active Jonel Hemphill MD Active HYDROCODONE-ACETAMINOPHEN 7.5-325 MG TABS 1 q 6 hrs prn HYDROCODONE-ACETAMINOPHEN 71397063694 No Longer Active Jonel Hemphill MD Active DILANTIN 100 MG CAPS 3 cap tid PHENYTOIN SODIUM EXTENDED 63710531160 No Longer Active Jonel Hemphill MD Active BUDEPRION SR 150 MG [id number] 1 bid BUPROPION HCL 72355435510 No Longer Active Jonel Hemphill MD Active ALLOPURINOL 300 MG TABS 1 qd ALLOPURINOL 74938706768 No Longer Active Jonel Hemphill MD Active COZAAR 100 MG TABS 1 qd LOSARTAN POTASSIUM 13122634810 No Longer Active Jonel Hemphill MD Active CVS VITAMIN C 500 MG TABS 1 po daily ASCORBIC ACID 59785295286 No Longer Active Jonel Hemphill MD Active MIRALAX POWD 17 gms in 4 oz water or juice daily POLYETHYLENE GLYCOL 3350 57472587302 No Longer Active Jonel Hemphill MD Active POTASSIUM CHLORIDE CHELA ER 20 MEQ CR-TABS 1 tab PO daily POTASSIUM CHLORIDE CHELA CR 95465843849 No Longer Active Jonel Hemphill MD Active AMBIEN 10 MG TAB 1 tab by mouth at bedtime as needed for sleep ZOLPIDEM TARTRATE 02538079999 No Longer Active Jonel Hemphill MD Active SULFAMETHOXAZOLE-TMP DS 800-160 MG TABS 1 TAB PO BID SULFAMETHOXAZOLE-TRIMETHOPRIM 02229499510 No Longer Active Jonel Hemphill MD Active NORCO 5-325 MG TABS 1-2 TAB Q 6 HRS PRN HYDROCODONE- ACETAMINOPHEN 44891874348 Active Jonel Hemphill MD Active LEVEMIR 100 UNIT/ML SOLN 5 units sub-q at bedtime INSULIN DETEMIR 20528476822 No Longer Active Tova Perez Active MOBIC 15 MG TABS 1 tab PO daily for arthritis pain MELOXICAM 01551816536 No Longer Active Tova Perez Active GLUCAGEN 1 MG SOLR INJECT 1MG IM IF BS LESS THAN 60 & RES. IS UNABLE TO SWALLOW GLUCAGON HCL (RDNA) 21972000940 No Longer Active Tova Perez Active [facility]S MILK OF MAGNESIA 1200 MG/15ML SUSP 30 ml daily for constipation MAGNESIUM HYDROXIDE 68449679824 No Longer Active Tova Perez Active IMDUR 120 MG [id number] 1 qd ISOSORBIDE MONONITRATE 59516187550 No Longer Active Tova Perez Active METFORMIN HCL 500 MG TABS 1 tablet by mouth twice daily METFORMIN HCL 67106419494 Active Tova Perez Active PHENYTOIN 50 MG CHEW 1 TAB PO BID PHENYTOIN 20632510209 Active Tova Perez Active MECLIZINE HCL 25 MG CHEW TAB 1 four times a day as needed for dizziness 02/21 MECLIZINE HCL 64213883845 Active Tova Perez Active NEURONTIN 400 MG CAPS Take one by mouth 3 times daily, morning, afternoon and evening.] GABAPENTIN 12956281772 No Longer Active Tova Chris Active ANTIVERT 25 MG TABS 1 q 6 hrs prn MECLIZINE HCL 11229820051 No Longer Active Jonel Hemphill MD Active CLONIDINE HCL 0.2 MG TABS 1 q 8 hrs as needed -greater than 160-htn CLONIDINE HCL 09733455792 No Longer Active Jonel Hemphill MD Active AMBIEN 10 MG TABS 1 q hs prn ZOLPIDEM TARTRATE 80919293839 No Longer Active Jonel Hemhpill MD Active GNP THERAPEUTIC-M TABS 1 qd MULTIPLE VITAMINS- MINERALS 14749535270 No Longer Active Jonel Hemphill MD Active METOPROLOL TARTRATE 50 MG TABS 1 bid METOPROLOL TARTRATE 46809100002 No Longer Active Jonel Hemphill MD Active METFORMIN HCL 500 MG TABS 1 bod with food METFORMIN HCL 87482315550 No Longer Active Jonel Hemphill MD Active LISINOPRIL 40 MG TABS 1 qd LISINOPRIL 22225672115 No Longer Active Jonel Hemphill MD Active HYDROCHLOROTHIAZIDE 25 MG TABS 1 qd HYDROCHLOROTHIAZIDE 52584251781 No Longer Active Jonel Hemphill MD Active DURAGESIC-25 25 MCG/HR PT72 place 1 patch on the skin q72hrs for pain FENTANYL 91039043178 No Longer Active Jonel Hemphill MD Active FENTANYL 75 MCG/HR PT72 place 1 patch on skin q72hrs fr pain 2012 FENTANYL 64319945790 No Longer Active Jonel Hemphill MD Active LASIX 20 MG TABS 1 tab PO q morning FUROSEMIDE 70950033772 Active Jonel Hemphill MD Active FUROSEMIDE 40 MG TABS 1 q am FUROSEMIDE 11406289768 No Longer Active Jonel Hemphill MD Active HEPARIN (PORCINE) LOCK FLUSH 100 UNIT/ML SOLN Flush port a cath monthly every three week on with Heparin and NS HEPARIN LOCK FLUSH 56223236850 Active Jonel Hemphill MD Active FENTANYL 100 MCG/HR PT72 Apply every 3 days FENTANYL 27740249918 Active Pepe Perez MD Active FENTANYL 25 MCG/HR PT72 Apply to clean skin and change every 72 hours. 07/03 FENTANYL 30831143736 No Longer Active Jonel Hemphill MD Active FENTANYL 50 MCG/HR PT72 place 1 patch on skin q72 hours FENTANYL 16042476948 No Longer Active Mayco Shah APRN Active ATIVAN 0.5 MG TABS Take 1 tablet 2x daily LORAZEPAM 65643741377 Active Jonel Hemphill MD Active CELEXA 20 MG TABS Take 1 tablet 1x daily CITALOPRAM HYDROBROMIDE 79943112800 Active Jonel Hemphill MD Active DURAGESIC-12 12 MCG/HR PT72 APPLY PATCH TO SKIN AND CHANGE EVERY 72 HOURS, ROTATE SITES FENTANYL 93911155591 No Longer Active Fozia HERNANDEZ Active FUROSEMIDE 20 MG TABS 1 qd FUROSEMIDE 80718475213 No Longer Active [employer] Active ADULT ASPIRIN EC LOW STRENGTH 81 MG TBEC 1 qd ASPIRIN 05188496871 Active MARY Perez Active FUROSEMIDE 20 MG TABS 1 qd FUROSEMIDE 20 MG TABS 078364 FUROSEMIDE Inactive DURAGESIC-12 12 MCG/HR PT72 APPLY PATCH TO SKIN AND CHANGE EVERY 72 HOURS, ROTATE SITES DURAGESIC-12 12 MCG/HR PT72 614493 FENTANYL Inactive FENTANYL 50 MCG/HR PT72 place 1 patch on skin q72 hours FENTANYL 50 MCG/HR PT72 150893 FENTANYL Inactive FUROSEMIDE 40 MG TABS 1 q am FUROSEMIDE 40 MG TABS 266854 FUROSEMIDE Inactive FENTANYL 75 MCG/HR PT72 place 1 patch on skin q72hrs fr pain 2012 FENTANYL 75 MCG/HR PT72 712837 FENTANYL Inactive DURAGESIC-25 25 MCG/HR PT72 place 1 patch on the skin q72hrs for pain DURAGESIC-25 25 MCG/HR PT72 011600 FENTANYL Inactive HYDROCHLOROTHIAZIDE 25 MG TABS 1 qd HYDROCHLOROTHIAZIDE 25 MG TABS 556136 HYDROCHLOROTHIAZIDE Inactive LISINOPRIL 40 MG TABS 1 qd LISINOPRIL 40 MG TABS 940710 LISINOPRIL Inactive METFORMIN HCL 500 MG TABS 1 bod with food METFORMIN HCL 500 MG TABS 454963 METFORMIN HCL Inactive METOPROLOL TARTRATE 50 MG TABS 1 bid METOPROLOL TARTRATE 50 MG TABS 139231 METOPROLOL TARTRATE Inactive GNP THERAPEUTIC-M TABS 1 qd GNP THERAPEUTIC-M TABS MULTIPLE VITAMINS-MINERALS Inactive AMBIEN 10 MG TABS 1 q hs prn AMBIEN 10 MG TABS 290955 ZOLPIDEM TARTRATE Inactive CLONIDINE HCL 0.2 MG TABS 1 q 8 hrs as needed -greater than 160-htn CLONIDINE HCL 0.2 MG TABS 989397 CLONIDINE HCL Inactive ANTIVERT 25 MG TABS 1 q 6 hrs prn ANTIVERT 25 MG TABS MECLIZINE HCL Inactive NEURONTIN 400 MG CAPS Take one by mouth 3 times daily, morning, afternoon and evening.] NEURONTIN 400 MG CAPS 765919 GABAPENTIN Inactive IMDUR 120 MG [id number] 1 qd IMDUR 120 MG [id number] ISOSORBIDE MONONITRATE Inactive CVS MILK OF MAGNESIA [...] for arthritis pain MOBIC 15 MG TABS 896167 MELOXICAM Inactive LEVEMIR 100 UNIT/ML SOLN 5 units sub-q at bedtime LEVEMIR 100 UNIT/ML SOLN INSULIN DETEMIR Inactive SULFAMETHOXAZOLE-TMP DS 800-160 MG TABS 1 TAB PO BID SULFAMETHOXAZOLE-TMP DS 800-160 MG TABS SULFAMETHOXAZOLE-TRIMETHOPRIM Inactive AMBIEN 10 MG TAB 1 tab by mouth at bedtime as needed for sleep AMBIEN 10 MG TAB 633704 ZOLPIDEM TARTRATE Inactive POTASSIUM CHLORIDE CHELA ER 20 MEQ CR-TABS 1 tab PO daily POTASSIUM CHLORIDE CHELA ER 20 MEQ CR-TABS POTASSIUM CHLORIDE CHELA CR Inactive MIRALAX POWD 17 gms in 4 oz water or juice daily MIRALAX POWD 772266 POLYETHYLENE GLYCOL 3350 Inactive CVS VITAMIN C 500 MG TABS 1 po daily CVS VITAMIN C 500 MG TABS 994236 ASCORBIC ACID Inactive COZAAR 100 MG TABS 1 qd COZAAR 100 MG TABS 593316 LOSARTAN POTASSIUM Inactive ALLOPURINOL 300 MG TABS 1 qd ALLOPURINOL 300 MG TABS 926041 ALLOPURINOL Inactive BUDEPRION SR 150 MG [id number] 1 bid BUDEPRION SR 150 MG [id number] BUPROPION HCL Inactive DILANTIN 100 MG CAPS 3 cap tid DILANTIN 100 MG CAPS 495086 PHENYTOIN SODIUM EXTENDED Inactive HYDROCODONE-ACETAMINOPHEN 7.5-325 MG TABS 1 q 6 hrs prn HYDROCODONE-ACETAMINOPHEN 7.5-325 MG TABS 756719 HYDROCODONE- ACETAMINOPHEN Inactive GABAPENTIN 300 MG CAPS 1 CAP PO TID GABAPENTIN 300 MG CAPS 946477 GABAPENTIN Inactive FENTANYL 25 MCG/HR PT72 Apply to clean skin and change every 72 hours. 07/03 FENTANYL 25 MCG/HR PT72 055196 FENTANYL Inactive Advance Directives Directive Description Start Date ADVANCE DIRECTIVE Immunizations Vaccine Administration Date Value Standard Description influenza immunization (Flu Vax) has been administered Influenza - Unspecified Formulation [CVX88] influenza virus vaccine, unspecified formulation pneumococcal immunization administered Pneumovax 23 [CVX33] pneumococcal polysaccharide vaccine, 23 valent Vital Signs Date Name Value Unit Range Description blood pressure, diastolic - 8462-4 89 mm[Hg] [...] % Chart Maintenance: Outside labs entered on bodaplanesheet - Hematology leukocyte count, blood 7.5 10*3/mm3 hemoglobin, blood 14.5 g/dL platelet count 128 10*3/mm3 Lab Report: CBC W/DIFF, Comp. Metabolic Panel, [facility] INFLUENZA A/B - Chemistry sodium, serum 142 mmol/L 378-545 0049/01/20 potassium, serum 3.9 mmol/L 3.5-5.2 chloride, serum [...] Lab Report: CBC W/DIFF, Comp. Metabolic Panel, [facility] INFLUENZA A/B - Hematology leukocyte count, blood [...] 4.3-6.0 Encounters Code Encounter Date Provider Facility CPT-71152 Level 3 Est. Patient 18:04:07 CDT Jonel Hemphill MD [facility]-69711 Level 3 Est. Patient 17:18:03 CDT Jonel Hemphill MD [facility] CPT-17372 Level 3 Est. Patient 21:58:03 FOOD SCIENTIST Jonel Hemphill MD [facility] CPT-83256 Level 4 Est. Patient 18:03:14 CDT Jonel Yeager [facility]-08212 Level 4 Est. Patient 13:24:53 CDT Jonel Yeager [facility]-82215 Level 4 Est. Patient 09:15:44 CDT Jonel Yeager [facility]-86939 Level 4 Est. Patient 19:16:01 CDT Jonel Yeager [facility] CPT-29435 Level 4 Est. Patient 11:25:16 CDT Jonel Hemphill MD [facility]-82355 Level 4 Est. Patient 09:00:40 CDT Jonel Yeager [facility]-95955 Level 4 Est. Patient 14:53:58 CDT Jonel Hemphill MD [facility] CPT-14446 Level 4 Est. Patient 22:59:01 CDT Jonle Hemphill MD [facility]-95723 Level 4 Est. Patient 09:29:57 CDT Jonel Hemphill MD [facility]-27610 Level 4 Est. Patient 12:35:53 FOOD SCIENTIST Jonel Hemphill MD [facility]-04458 Level 4 Est. Patient 22:36:09 FOOD SCIENTIST Jonel Hemphill MD [facility]-91436 Level 2 Est. Patient 15:14:15 FOOD SCIENTIST Mayco Shah APRN [facility] CPT-36370 Level 4 Est. Patient 10:36:22 FOOD SCIENTIST Jonel Hemphill MD [facility] CPT-68708 Level 4 Est. Patient 22:01:13 FOOD SCIENTIST Jonel Hemphill MD [facility]-57146 Level 3 Est. Patient 21:50:37 FOOD SCIENTIST Jonel Hemphill MD [facility] CPT-50970 Level 4 Est. Patient 15:02:43 CDT Rubin Pierre MD [facility]-50948 Level 4 Est. Patient 14:27:35 CDT Jonel Hemphill MD [facility]-96036 Level 4 Est. Patient 12:41:17 CDT Jonel Hemphill MD [facility]-29790 Level 4 Est. Patient 16:18:55 CDT Jonel Hemphill MD [facility]-17083 Level 4 Est. Patient 17:58:05 CDT Jonel Hemphill MD [facility]-39246 Level 4 Est. Patient 22:10:06 CDT Jonel Hemphill MD [facility]-23518 Level 4 Est. Patient 13:22:09 CDT Jonel Hemphill MD [facility]-10293 Level 4 Est. Patient 22:52:17 FOOD SCIENTIST Jonel Hemphill MD [facility] CPT-39166 Level 3 Est. Patient 22:34:10 FOOD SCIENTIST Jonel Hemphill MD [facility] CPT-20790 Level 4 Est. Patient 07:49:20 FOOD SCIENTIST Jonel Hemphill MD [facility] Skilled CPT-69658 Level 3 Est. Patient 08:28:27 FOOD SCIENTIST Jonel Hemphill MD [facility] Procedures Code Procedure Name Date Entry Date Standard Description CPT-16956 Level 3 Alf 12:48:39 CDT CPT-05122 Level 3 Alf 17:39:14 CDT CPT-11958 Level 3 Alf 13:32:58 CDT CPT-83156 Level 3 Alf 17:43:43 CDT CPT-20492 Level 3 Alf 12:03:33 FOOD SCIENTIST CPT-97615 Level 3 Alf 18:47:28 FOOD SCIENTIST CPT-01689 Level 3 Alf 17:35:26 FOOD SCIENTIST CPT-95533 Level 3 Alf 18:44:49 FOOD SCIENTIST CPT-13379 Level 3 Alf 18:17:33 CDT CPT-84710 Level 3 Alf 09:25:33 CDT CPT-88242 Level 3 Alf 19:11:57 CDT CPT-93784 Level 3 Alf 09:25:52 CDT CPT-82636 Level 3 Alf 14:23:59 CDT CPT-53584 Level 3 Alf 12:09:43 CDT CPT-41738 Level 3 Alf 09:37:40 CDT CPT-87816 Level 3 Alf 18:23:02 CDT CPT-89795 Level 3 Alf 14:09:06 CDT CPT-85333 Level 3 Alf 12:43:27 FOOD SCIENTIST CPT-60175 Postop F/U Visit 14:10:15 FOOD SCIENTIST CPT-02059 [facility] 17:07:14 FOOD SCIENTIST CPT-94659 Level 3 Alf 16:14:37 FOOD SCIENTIST CPT-95471 Port a cath flush 11:47:42 CDT CPT-30197 Port a cath flush 08:29:49 CDT CPT-OV Office Visit 14:27:58 FOOD SCIENTIST
--- OUTSIDE RECORDS SUMMARY | 2016-08-07 11:47 | XMS REPORT | Clinical Summary ---
Author Author Admin, [place] Organization [facility] Address Unknown Phone Unavailable Allergies, Adverse [...] MD Benign essential hypertension 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 USE, CHIEF INNOVATION OFFICER V58.69 Resolved Jonel Hemphill MD Long-term (current) [...] Coronary atherosclerosis of unspecified type of vessel, kasaan or graft FH DIABETES V18.0 Resolved Jonel [...] Coronary atherosclerosis of unspecified type of vessel, kasaan or graft CONSTIPATION 564.00 Resolved Jonel Hemphill [...] Obstructive sleep apnea (adult) (pediatric) 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 USE, CHIEF INNOVATION OFFICER ICD-V58.69 Inactive Jonel Hemphill MD DIABETES, TYPE [...] water or juice daily POLYETHYLENE GLYCOL 3350 84740826125 Active Jonel Hemphill MD Active [facility] MELATONIN 3 MG ORAL TABS 2 tabs at hs MELATONIN 40999355553 Active Jonel Hemphill MD Active MAGNESIUM GLUCONATE 500 MG ORAL TABS 1 tab twice daily MAGNESIUM GLUCONATE 01216668095 Active Jonel Hemphill MD Active OMEPRAZOLE 20 MG CPDR 1 tablet by mouth daily OMEPRAZOLE 15322172154 Active Jonel Hemphill MD Active DIGOXIN 125 MCG ORAL TABS 1 daily DIGOXIN 10749221369 Active Jonel Hemphill MD Active DILTIAZEM CD 240 MG ORAL [id number] 1 daily DILTIAZEM HCL COATED BEADS 43874687228 Active Jonel Hemphill MD Active NOVOLOG 100 UNIT/ML SC SOLN 70-140=0U 141-180=2 U 181-220=4U 221-260=6U 261- 300=8U 301-340=10U 765=414=52Y 381-400=14U INSULIN ASPART 41108124726 Active Jonel Hemphill MD Active ACETAMINOPHEN 325 MG ORAL TABS 1 tab by mouth every 4 hours as needed ACETAMINOPHEN 72853977319 Active Jonel Hemphill MD Active FENTANYL 12 MCG/HR PT72 Apply to clean, dry skin and change every 72 hours FENTANYL 36466763020 No Longer Active Jonel Hemphill MD Active PHENYTOIN 50 MG CHEW 1 TAB PO BID PHENYTOIN 64951071672 No Longer Active Jonel Hemphill MD Active NORCO 5-325 MG TABS 1-2 TAB Q 6 HRS PRN HYDROCODONE- ACETAMINOPHEN 12318078636 No Longer Active Jonel Hemphill MD Active MULTIVITAMINS CAPS 1 DAILY MULTIPLE VITAMIN 18970312196 No Longer Active Jonel Hemphill MD Active BUPROPION HCL ER (SR) 150 MG [id number] 1 twice a day for depression BUPROPION HCL 25852895642 No Longer Active Jonel Hemphill MD Active LISINOPRIL 20 MG TABS 1 tablet by mouth daily LISINOPRIL 53169589117 Active Jonel Hemphill MD Active ULORIC 40 MG ORAL TABS 1 daily for gout. FEBUXOSTAT 27891858674 No Longer Active Jonel Hemphill MD Active CELEXA 20 MG TABS 1 tablet by mouth daily CITALOPRAM HYDROBROMIDE 84283516705 Active Marleni Raida Active ZOFRAN 4 MG TABS 1 po q6hr PRN Nausea ONDANSETRON HCL 91127090382 Active Jonel Hemphill MD Active XARELTO 20 MG ORAL TABS 1 daily RIVAROXABAN 73568627781 Active Jonel Hemphill MD Active JANUVIA 100 MG ORAL TABS 2 tabs daily SITAGLIPTIN PHOSPHATE 38032778107 Active Jonel Hemphill MD Active CELEXA 20 MG TABS Take 1 tablet 1x daily CITALOPRAM HYDROBROMIDE 84854574741 No Longer Active Jonel Hemphill MD Active ATIVAN 0.5 MG TABS Take 1 tablet 2x daily PRN LORAZEPAM 62248877344 No Longer Active Jonel Hemphill MD Active FUROSEMIDE 80 MG ORAL TABS 1 daily FUROSEMIDE 34731692714 Active Jonel Hemphill MD Active MECLIZINE HCL 25 MG CHEW TAB 1 four times a day as needed for dizziness 02/21 MECLIZINE HCL 61917364975 No Longer Active Jonel Hemphill MD Active ZYLOPRIM 300 MG TAB 1 BY MOUTH DAILY ALLOPURINOL 14435168883 No Longer Active Jonel Hemphill MD Active METOPROLOL TARTRATE 50 MG ORAL TABS 1 TAB BY MOUTH TWICE DAILY METOPROLOL TARTRATE 14791759818 No Longer Active Jonel Hemphill MD Active GABAPENTIN 400 MG ORAL CAPS 1 TAB BY MOUTH THREE TIMES DAILY 2015 GABAPENTIN 67946378868 No Longer Active Jonel Hemphill MD Active HYDROCODONE-ACETAMINOPHEN 7.5-325 MG TABS 1 TAB PO Q 6 HRS PRN HYDROCODONE-ACETAMINOPHEN 75541329790 Active Jonel Hemphill MD Active METFORMIN HCL 1000 MG TABS 1 tablet by mouth twice daily METFORMIN HCL 14239239036 Active Marleni Romero Active KLOR-CON 20 MEQ ORAL PACK 1 BY MOUTH DAILY POTASSIUM CHLORIDE 19863973601 Active Marleni Romero Active A+D FIRST AID EXT OINT APPLY OINTMENT AND RUFINO WRAPS TO LOWER EXTEREMETIES DAILY SKIN PROTECTANTS, MISC. 37898953637 Active Jonel Hemphill MD Active NYSTATIN 932605 UNIT/GM EXT OINT APPLY PRN TID TO GAULDING/RASH IN ABDOMINAL FOLDS NYSTATIN 28986874857 Active Jonel Hemphill MD Active GABAPENTIN 300 MG CAPS 1 CAP PO TID GABAPENTIN 99201810638 No Longer Active Jonel Hemphill MD Active DILANTIN 100 MG ORAL CAPS 1 THREE TIMES DAILY FOR SEIZURES PHENYTOIN SODIUM EXTENDED 68073352348 Active Marleni Romero Active CPAP APPLY AT HS CPAP Active Jonel Hemphill MD Active HYDROCODONE-ACETAMINOPHEN 7.5-325 MG TABS 1 q 6 hrs prn HYDROCODONE-ACETAMINOPHEN 38636988484 No Longer Active Jonel Hemphill MD Active DILANTIN 100 MG CAPS 3 cap tid PHENYTOIN SODIUM EXTENDED 78820278365 No Longer Active Jonel Hemphill MD Active BUDEPRION SR 150 MG [id number] 1 bid BUPROPION HCL 30986037138 No Longer Active Jonel Hemphill MD Active ALLOPURINOL 300 MG TABS 1 qd ALLOPURINOL 01004770889 No Longer Active Jonel Hemphill MD Active COZAAR 100 MG TABS 1 qd LOSARTAN POTASSIUM 22158198871 No Longer Active Jonel Hemphill MD Active CVS VITAMIN C 500 MG TABS 1 po daily ASCORBIC ACID 00820546821 No Longer Active Jonel Hemphill MD Active MIRALAX POWD 17 gms in 4 oz water or juice daily POLYETHYLENE GLYCOL 3350 91067864140 No Longer Active Jonel Hemphill MD Active POTASSIUM CHLORIDE CHELA ER 20 MEQ CR-TABS 1 tab PO daily POTASSIUM CHLORIDE CHELA CR 59287978073 No Longer Active Jonel Hemphill MD Active AMBIEN 10 MG TAB 1 tab by mouth at bedtime as needed for sleep ZOLPIDEM TARTRATE 41725534636 No Longer Active Jonel Hemphill MD Active SULFAMETHOXAZOLE-TMP DS 800-160 MG TABS 1 TAB PO BID SULFAMETHOXAZOLE-TRIMETHOPRIM 96031644531 No Longer Active Jonel Hemphill MD Active LEVEMIR 100 UNIT/ML SOLN 5 units sub-q at bedtime INSULIN DETEMIR 38444352376 No Longer Active Tova Perez Active MOBIC 15 MG TABS 1 tab PO daily for arthritis pain MELOXICAM 37174578552 No Longer Active Tova Perez Active GLUCAGEN 1 MG SOLR INJECT 1MG IM IF BS LESS THAN 60 & RES. IS UNABLE TO SWALLOW GLUCAGON HCL (RDNA) 03944124567 No Longer Active Tova Chris Active [facility]S MILK OF MAGNESIA 1200 MG/15ML SUSP 30 ml daily for constipation MAGNESIUM HYDROXIDE 18750060621 No Longer Active Tova Chris Active IMDUR 120 MG [id number]-QCM 1 qd ISOSORBIDE MONONITRATE 78024448162 No Longer Active Tova Chris Active NEURONTIN 400 MG CAPS Take one by mouth 3 times daily, morning, afternoon and evening.] GABAPENTIN 53536309122 No Longer Active Tova Perez Active ANTIVERT 25 MG TABS 1 q 6 hrs prn MECLIZINE HCL 58754293672 No Longer Active Jonel Hemphill MD Active CLONIDINE HCL 0.2 MG TABS 1 q 8 hrs as needed -greater than 160-htn CLONIDINE HCL 65798739942 No Longer Active Jonel Hemphill MD Active AMBIEN 10 MG TABS 1 q hs prn ZOLPIDEM TARTRATE 49958765659 No Longer Active Jonel Hemphill MD Active GNP THERAPEUTIC-M TABS 1 qd MULTIPLE VITAMINS- MINERALS 32153323943 No Longer Active Jonel Hemphill MD Active METOPROLOL TARTRATE 50 MG TABS 1 bid METOPROLOL TARTRATE 92664077047 No Longer Active Jonel Hemphill MD Active METFORMIN HCL 500 MG TABS 1 bod with food METFORMIN HCL 26080277053 No Longer Active Jonel Hemphill MD Active LISINOPRIL 40 MG TABS 1 qd LISINOPRIL 19513060556 No Longer Active Jonel Hemphill MD Active HYDROCHLOROTHIAZIDE 25 MG TABS 1 qd HYDROCHLOROTHIAZIDE 66390976337 No Longer Active Jonel Hemphill MD Active DURAGESIC-25 25 MCG/HR PT72 place 1 patch on the skin q72hrs for pain FENTANYL 42952970997 No Longer Active Jonel Hemphill MD Active FENTANYL 75 MCG/HR PT72 place 1 patch on skin q72hrs fr pain 2012 FENTANYL 08292414343 No Longer Active Jonel Hemphill MD Active FUROSEMIDE 40 MG TABS 1 q am FUROSEMIDE 69503341065 No Longer Active Jonel Hemphill MD Active HEPARIN (PORCINE) LOCK FLUSH 100 UNIT/ML SOLN Flush port a cath monthly every three week on with Heparin and NS HEPARIN LOCK FLUSH 57381846933 Active Jonel Hemphill MD Active FENTANYL 100 MCG/HR PT72 Apply every 3 days FENTANYL 80744220498 Active Jonel Hemphill MD Active FENTANYL 25 MCG/HR PT72 Apply to clean skin and change every 72 hours. 07/03 FENTANYL 00968086942 No Longer Active Jonel Hemphill MD Active FENTANYL 50 MCG/HR PT72 place 1 patch on skin q72 hours FENTANYL 59112028873 No Longer Active Mayco Shah APRN Active DURAGESIC-12 12 MCG/HR PT72 APPLY PATCH TO SKIN AND CHANGE EVERY 72 HOURS, ROTATE SITES FENTANYL 03486791199 No Longer Active Fozia HERNANDEZ Active FUROSEMIDE 20 MG TABS 1 qd FUROSEMIDE 24535352297 No Longer Active Mahogany Sturgeon Active ADULT ASPIRIN EC LOW STRENGTH 81 MG TBEC 1 qd ASPIRIN 66634152779 Active MARY Perez Active FUROSEMIDE 20 MG TABS 1 qd FUROSEMIDE 20 MG TABS 968148 FUROSEMIDE Inactive DURAGESIC-12 12 MCG/HR PT72 APPLY PATCH TO SKIN AND CHANGE EVERY 72 HOURS, ROTATE SITES DURAGESIC-12 12 MCG/HR PT72 562230 FENTANYL Inactive FENTANYL 50 MCG/HR PT72 place 1 patch on skin q72 hours FENTANYL 50 MCG/HR PT72 769639 FENTANYL Inactive FUROSEMIDE 40 MG TABS 1 q am FUROSEMIDE 40 MG TABS 794318 FUROSEMIDE Inactive FENTANYL 75 MCG/HR PT72 place 1 patch on skin q72hrs fr pain 2012 FENTANYL 75 MCG/HR PT72 157577 FENTANYL Inactive DURAGESIC-25 25 MCG/HR PT72 place 1 patch on the skin q72hrs for pain DURAGESIC-25 25 MCG/HR PT72 090136 FENTANYL Inactive HYDROCHLOROTHIAZIDE 25 MG TABS 1 qd HYDROCHLOROTHIAZIDE 25 MG TABS 303974 HYDROCHLOROTHIAZIDE Inactive LISINOPRIL 40 MG TABS 1 qd LISINOPRIL 40 MG TABS 530844 LISINOPRIL Inactive METFORMIN HCL 500 MG TABS 1 bod with food METFORMIN HCL 500 MG TABS 544556 METFORMIN HCL Inactive METOPROLOL TARTRATE 50 MG TABS 1 bid METOPROLOL TARTRATE 50 MG TABS 529090 METOPROLOL TARTRATE Inactive GNP THERAPEUTIC-M TABS 1 qd GNP THERAPEUTIC-M TABS MULTIPLE VITAMINS-MINERALS Inactive AMBIEN 10 MG TABS 1 q hs prn AMBIEN 10 MG TABS 048705 ZOLPIDEM TARTRATE Inactive CLONIDINE HCL 0.2 MG TABS 1 q 8 hrs as needed -greater than 160-htn CLONIDINE HCL 0.2 MG TABS 893717 CLONIDINE HCL Inactive ANTIVERT 25 MG TABS 1 q 6 hrs prn ANTIVERT 25 MG TABS MECLIZINE HCL Inactive NEURONTIN 400 MG CAPS Take one by mouth 3 times daily, morning, afternoon and evening.] NEURONTIN 400 MG CAPS 184625 GABAPENTIN Inactive IMDUR 120 MG [id number] 1 qd IMDUR 120 MG [id number] ISOSORBIDE MONONITRATE Inactive [facility] MILK OF MAGNESIA [...] for arthritis pain MOBIC 15 MG TABS 015765 MELOXICAM Inactive LEVEMIR 100 UNIT/ML SOLN 5 units sub-q at bedtime LEVEMIR 100 UNIT/ML SOLN INSULIN DETEMIR Inactive SULFAMETHOXAZOLE-TMP DS 800-160 MG TABS 1 TAB PO BID SULFAMETHOXAZOLE-TMP DS 800-160 MG TABS 631228 SULFAMETHOXAZOLE-TRIMETHOPRIM Inactive AMBIEN 10 MG TAB 1 tab by mouth at bedtime as needed for sleep AMBIEN 10 MG TAB 948459 ZOLPIDEM TARTRATE Inactive POTASSIUM CHLORIDE CHELA ER 20 MEQ CR-TABS 1 tab PO daily POTASSIUM CHLORIDE CHELA ER 20 MEQ CR-TABS POTASSIUM CHLORIDE CHELA CR Inactive MIRALAX POWD 17 gms in 4 oz water or juice daily MIRALAX POWD 827015 POLYETHYLENE GLYCOL 3350 Inactive [facility]S VITAMIN C 500 MG TABS 1 po daily CVS VITAMIN C 500 MG TABS 073693 ASCORBIC ACID Inactive COZAAR 100 MG TABS 1 qd COZAAR 100 MG TABS 050882 LOSARTAN POTASSIUM Inactive ALLOPURINOL 300 MG TABS 1 qd ALLOPURINOL 300 MG TABS 138607 ALLOPURINOL Inactive BUDEPRION SR 150 MG [id number] 1 bid BUDEPRION SR 150 MG [id number] BUPROPION HCL Inactive DILANTIN 100 MG CAPS 3 cap tid DILANTIN 100 MG CAPS 034112 PHENYTOIN SODIUM EXTENDED Inactive HYDROCODONE-ACETAMINOPHEN 7.5-325 MG TABS 1 q 6 hrs prn HYDROCODONE-ACETAMINOPHEN 7.5-325 MG TABS 113025 HYDROCODONE- ACETAMINOPHEN Inactive GABAPENTIN 300 MG CAPS 1 CAP PO TID GABAPENTIN 300 MG CAPS 651963 GABAPENTIN Inactive GABAPENTIN 400 MG ORAL CAPS 1 TAB BY MOUTH THREE TIMES DAILY 2015 GABAPENTIN 400 MG ORAL CAPS 789474 GABAPENTIN Inactive METOPROLOL TARTRATE 50 MG ORAL TABS 1 TAB BY MOUTH TWICE DAILY METOPROLOL TARTRATE 50 MG ORAL TABS 182088 METOPROLOL TARTRATE Inactive ZYLOPRIM 300 MG TAB 1 BY MOUTH DAILY ZYLOPRIM 300 MG TAB 330349 ALLOPURINOL Inactive MECLIZINE HCL 25 MG CHEW TAB 1 four times a day as needed for dizziness 02/21 MECLIZINE HCL 25 MG CHEW TAB 038677 MECLIZINE HCL Inactive ATIVAN 0.5 MG TABS Take 1 tablet 2x daily PRN ATIVAN 0.5 MG TABS 273418 LORAZEPAM Inactive CELEXA 20 MG TABS Take 1 tablet 1x daily CELEXA 20 MG TABS 465503 CITALOPRAM HYDROBROMIDE Inactive ULORIC 40 MG ORAL TABS 1 daily for gout. ULORIC 40 MG ORAL TABS FEBUXOSTAT Inactive BUPROPION HCL ER (SR) 150 MG [id number] 1 twice a day for depression BUPROPION HCL ER (SR) 150 MG [id number] BUPROPION HCL Inactive MULTIVITAMINS CAPS 1 DAILY MULTIVITAMINS CAPS MULTIPLE VITAMIN Inactive NORCO 5-325 MG TABS 1-2 TAB Q 6 HRS PRN NORCO 5-325 MG TABS 423766 HYDROCODONE-ACETAMINOPHEN Inactive PHENYTOIN 50 MG CHEW 1 TAB PO BID PHENYTOIN 50 MG CHEW 8722930 PHENYTOIN Inactive FENTANYL 12 MCG/HR PT72 Apply to clean, dry skin and change every 72 hours FENTANYL 12 MCG/HR PT72 989591 FENTANYL Inactive FENTANYL 25 MCG/HR PT72 Apply to clean skin and change every 72 hours. 07/03 FENTANYL 25 MCG/HR PT72 083461 FENTANYL Inactive Advance Directives Directive Description Start [...] mg/dL Encounters Code Encounter Date Provider Facility CPT-94248 Level 3 Est. Patient 19:05:03 CDT Jonel Hemphill MD [facility] CPT-53857 Level 3 Est. Patient 17:30:47 CDT Kevin Link MD [facility] CPT-17254 Level 3 Est. Patient 18:04:07 CDT Jonel Hemphill MD [facility] CPT-19366 Level 3 Est. Patient 17:18:03 CDT Jonel Hemphill MD [facility] CPT-81769 Level 3 Est. Patient 21:58:03 YOUTH DIRECTOR Jonel Hemphill MD [facility] CPT-97827 Level 4 Est. Patient 18:03:14 CDT Jonel Hemphill MD [facility]-53081 Level 4 Est. Patient 13:24:53 CDT Jonel Hemphill MD [facility]-30805 Level 4 Est. Patient 09:15:44 CDT Jonel Hemphill MD [facility]-15172 Level 4 Est. Patient 19:16:01 CDT Jonel Hemphill MD [facility]-08573 Level 4 Est. Patient 11:25:16 CDT Jonel Hemphill MD [facility]-09329 Level 4 Est. Patient 09:00:40 CDT Jonel Hemphill MD [facility]-90921 Level 4 Est. Patient 14:53:58 CDT Jonel Hemphill MD [facility]-18377 Level 4 Est. Patient 22:59:01 CDT Jonel Hemphill MD [facility]-89195 Level 4 Est. Patient 09:29:57 CDT Jonel Hemphill MD [facility]-47038 Level 4 Est. Patient 12:35:53 YOUTH DIRECTOR Jonel Hemphill MD [facility]-70025 Level 4 Est. Patient 22:36:09 YOUTH DIRECTOR Jonel Hemphill MD [facility]-95569 Level 2 Est. Patient 15:14:15 YOUTH DIRECTOR Mayco Shah APRN [facility] CPT-60149 Level 4 Est. Patient 10:36:22 YOUTH DIRECTOR Jonel Hemphill MD [facility]-50687 Level 4 Est. Patient 22:01:13 YOUTH DIRECTOR Jonel Hemphill MD [facility]-03578 Level 3 Est. Patient 21:50:37 YOUTH DIRECTOR Jonel Hemphill MD [facility] CPT-50205 Level 4 Est. Patient 15:02:43 CDT Rubin Pierre MD [facility] CPT-78506 Level 4 Est. Patient 14:27:35 CDT Jonel Hemphill MD [facility] CPT-94540 Level 4 Est. Patient 12:41:17 CDT Jonel Hemphill MD [facility] CPT-49244 Level 4 Est. Patient 16:18:55 CDT Jonel Hemphill MD [facility] CPT-88455 Level 4 Est. Patient 17:58:05 CDT Jonel Hemphill MD [facility] CPT-93259 Level 4 Est. Patient 22:10:06 CDT Jonel Hemphill MD [facility] CPT-13567 Level 4 Est. Patient 13:22:09 CDT Jonel Hemphill MD [facility] CPT-98860 Level 4 Est. Patient 22:52:17 YOUTH DIRECTOR Jonel Hemphill MD [facility] CPT-65018 Level 3 Est. Patient 22:34:10 YOUTH DIRECTOR Jonel Hemphill MD [facility] CPT-76561 Level 4 Est. Patient 07:49:20 YOUTH DIRECTOR Jonel Hemphill MD [facility] Skilled CPT-08936 Level 3 Est. Patient 08:28:27 YOUTH DIRECTOR Jonel Hemphill MD [facility] Procedures Code Procedure Name Date Entry Date Standard Description CPT-57872 Level 3 Residential 15:38:24 CDT CPT-08575 Level 3 Residential 08:18:30 CDT CPT-63827 Level 3 Residential 19:03:14 CDT CPT-17265 Level 3 Residential 17:42:11 CDT CPT-03712 Level 3 Residential 16:04:10 CDT CPT-97357 Level 3 Residential 19:38:15 YOUTH DIRECTOR CPT-05705 Level 3 Residential 19:28:48 YOUTH DIRECTOR CPT-07423 Level 3 Residential 18:02:20 YOUTH DIRECTOR CPT-03702 Level 3 Residential 15:02:14 YOUTH DIRECTOR CPT-80149 Level 3 Residential 12:25:37 CDT CPT-59381 Level 3 Residential 12:48:39 CDT CPT-79344 Level 3 Residential 17:39:14 CDT CPT-87736 Level 3 Residential 13:32:58 CDT CPT-95661 Level 3 Residential 17:43:43 CDT CPT-29478 Level 3 Residential 12:03:33 YOUTH DIRECTOR CPT-84036 Level 3 Residential 18:47:28 YOUTH DIRECTOR CPT-21855 Level 3 Residential 17:35:26 YOUTH DIRECTOR CPT-60591 Level 3 Residential 18:44:49 YOUTH DIRECTOR CPT-39832 Level 3 Residential 18:17:33 CDT CPT-95194 Level 3 Residential 09:25:33 CDT CPT-69292 Level 3 Residential 19:11:57 CDT CPT-33265 Level 3 Residential 09:25:52 CDT CPT-81137 Level 3 Residential 14:23:59 CDT CPT-05288 Level 3 Residential 12:09:43 CDT CPT-17991 Level 3 Residential 09:37:40 CDT CPT-05466 Level 3 Residential 18:23:02 CDT CPT-18965 Level 3 Residential 14:09:06 CDT CPT-01153 Level 3 Residential 12:43:27 YOUTH DIRECTOR CPT-17573 Postop F/U Visit 14:10:15 YOUTH DIRECTOR CPT-66092 [facility] 17:07:14 YOUTH DIRECTOR CPT-30888 Level 3 Residential 16:14:37 YOUTH DIRECTOR CPT-56641 Port a cath flush 11:47:42 CDT CPT-93137 Port a cath flush 08:29:49 CDT CPT-OV Office Visit 14:27:58 YOUTH DIRECTOR
--- OUTSIDE RECORDS SUMMARY | 2016-08-07 11:48 | XMS REPORT | Clinical Summary ---
Author Author Admin, [place] Organization [facility] Address Unknown Phone Unavailable Allergies, Adverse 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, [employer] V58.69 Resolved Jonel Hemphill MD Long-term (current) [...] Coronary atherosclerosis of unspecified type of vessel, diomede or graft FH DIABETES V18.0 Resolved Jonel [...] Coronary atherosclerosis of unspecified type of vessel, diomede or graft CONSTIPATION 564.00 Resolved Jonel Hemphill [...] disorder, not elsewhere classified LUMBAGO 724.2 Resolved Joenl Hemphill MD Lumbago SHOULDER STRAIN, RIGHT 840.9 [...] Jonel Hemphill MD Unspecified fall 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 USE, [employer] ICD-V58.69 Inactive Jonel Hemphill MD DIABETES, TYPE [...] 1 po q6hr PRN Nausea ONDANSETRON HCL 49500814329 Active Jonel Hemphill MD Active XARELTO 20 MG ORAL TABS 1 daily RIVAROXABAN 91946386472 Active Jonel Hemphill MD Active JANUVIA 100 MG ORAL TABS 2 tabs daily SITAGLIPTIN PHOSPHATE 42915343856 Active Jonel Hemphill MD Active CELEXA 20 MG TABS Take 1 tablet 1x daily CITALOPRAM HYDROBROMIDE 31429105912 No Longer Active Jonel Hemphill MD Active ATIVAN 0.5 MG TABS Take 1 tablet 2x daily PRN LORAZEPAM 03770503138 No Longer Active Jonel Hemphill MD Active FUROSEMIDE 80 MG ORAL TABS 1 daily FUROSEMIDE 82252595252 Active Jonel Hemphill MD Active MECLIZINE HCL 25 MG CHEW TAB 1 four times a day as needed for dizziness 02/21 MECLIZINE HCL 33767231103 No Longer Active Jonel Hemphill MD Active ZYLOPRIM 300 MG TAB 1 BY MOUTH DAILY ALLOPURINOL 33947352142 No Longer Active Jonel Hemphill MD Active METOPROLOL TARTRATE 50 MG ORAL TABS 1 TAB BY MOUTH TWICE DAILY METOPROLOL TARTRATE 00603992266 No Longer Active Jonel Hemphill MD Active GABAPENTIN 400 MG ORAL CAPS 1 TAB BY MOUTH THREE TIMES DAILY 2015 GABAPENTIN 64247719940 No Longer Active Jonel Hemphill MD Active ULORIC 40 MG ORAL TABS 1 daily for gout. FEBUXOSTAT 32738029657 Active Marleni Romero Active HYDROCODONE-ACETAMINOPHEN 7.5-325 MG TABS 1 TAB PO Q 6 HRS PRN HYDROCODONE-ACETAMINOPHEN 70603529507 Active Jonel Hemphill MD Active METFORMIN HCL 1000 MG TABS 1 tablet by mouth twice daily METFORMIN HCL 13830622914 Active Marleni Romero Active FENTANYL 12 MCG/HR PT72 Apply to clean, dry skin and change every 72 hours FENTANYL 62407894073 Active Jonel Hemphill MD Active KLOR-CON 20 MEQ ORAL PACK 1 BY MOUTH DAILY POTASSIUM CHLORIDE 34092059074 Active Marleni Romero Active A+D FIRST AID EXT OINT APPLY OINTMENT AND RUFINO WRAPS TO LOWER EXTEREMETIES DAILY SKIN PROTECTANTS, MISC. 18777648689 Active Jonel Hemphill MD Active NYSTATIN 152261 UNIT/GM EXT OINT APPLY PRN TID TO GAULDING/RASH IN ABDOMINAL FOLDS NYSTATIN 43612045397 Active Jonel Hemphill MD Active GABAPENTIN 300 MG CAPS 1 CAP PO TID GABAPENTIN 18664052043 No Longer Active Jonel Hemphill MD Active DILANTIN 100 MG ORAL CAPS 1 THREE TIMES DAILY FOR SEIZURES PHENYTOIN SODIUM EXTENDED 58760875698 Active Marleni Romero Active CPAP APPLY AT HS CPAP Active Joenl Hemphill MD Active LISINOPRIL 40 MG TABS 1 tablet by mouth twice daily, for blood pressure 03/31 LISINOPRIL 07040286107 Active Jonel Hemphill MD Active BUPROPION HCL ER (SR) 150 MG [id number] 1 twice a day for depression BUPROPION HCL 14310669694 Active Jonel Hemphill MD Active MULTIVITAMINS CAPS 1 DAILY MULTIPLE VITAMIN 26401327134 Active Jonel Hemphill MD Active HYDROCODONE-ACETAMINOPHEN 7.5-325 MG TABS 1 q 6 hrs prn HYDROCODONE-ACETAMINOPHEN 08708559793 No Longer Active Jonel Hemphill MD Active DILANTIN 100 MG CAPS 3 cap tid PHENYTOIN SODIUM EXTENDED 33172645554 No Longer Active Jonel Hemphill MD Active BUDEPRION SR 150 MG [id number] 1 bid BUPROPION HCL 38334732675 No Longer Active Jonel Hemphill MD Active ALLOPURINOL 300 MG TABS 1 qd ALLOPURINOL 27793719751 No Longer Active Jonel Hemphill MD Active COZAAR 100 MG TABS 1 qd LOSARTAN POTASSIUM 02522700292 No Longer Active Jonel Hemphill MD Active CVS VITAMIN C 500 MG TABS 1 po daily ASCORBIC ACID 19779705249 No Longer Active Jonel Hemphill MD Active MIRALAX POWD 17 gms in 4 oz water or juice daily POLYETHYLENE GLYCOL 3350 90051985439 No Longer Active Jonel Hemphill MD Active POTASSIUM CHLORIDE CHELA ER 20 MEQ CR-TABS 1 tab PO daily POTASSIUM CHLORIDE CHELA CR 88981188548 No Longer Active Jonel Hemphill MD Active AMBIEN 10 MG TAB 1 tab by mouth at bedtime as needed for sleep ZOLPIDEM TARTRATE 02791624354 No Longer Active Jonel Hemphill MD Active SULFAMETHOXAZOLE-TMP DS 800-160 MG TABS 1 TAB PO BID SULFAMETHOXAZOLE-TRIMETHOPRIM 05437502603 No Longer Active Jonel Hemphill MD Active NORCO 5-325 MG TABS 1-2 TAB Q 6 HRS PRN HYDROCODONE- ACETAMINOPHEN 30514202553 Active Jonel Hemphill MD Active LEVEMIR 100 UNIT/ML SOLN 5 units sub-q at bedtime INSULIN DETEMIR 78328037442 No Longer Active Tova Perez Active MOBIC 15 MG TABS 1 tab PO daily for arthritis pain MELOXICAM 53316081224 No Longer Active Tova Perez Active GLUCAGEN 1 MG SOLR INJECT 1MG IM IF BS LESS THAN 60 & RES. IS UNABLE TO SWALLOW GLUCAGON HCL (RDNA) 99993111036 No Longer Active Tova Perez Active CVS MILK OF MAGNESIA 1200 MG/15ML SUSP 30 ml daily for constipation MAGNESIUM HYDROXIDE 17612203514 No Longer Active Tova Perez Active IMDUR 120 MG [id number] 1 qd ISOSORBIDE MONONITRATE 73803776426 No Longer Active Tova Perez Active PHENYTOIN 50 MG CHEW 1 TAB PO BID PHENYTOIN 73178707666 Active Tova Perez Active NEURONTIN 400 MG CAPS Take one by mouth 3 times daily, morning, afternoon and evening.] GABAPENTIN 10142296340 No Longer Active Tova Perez Active ANTIVERT 25 MG TABS 1 q 6 hrs prn MECLIZINE HCL 35100840075 No Longer Active Jonel Hemphill MD Active CLONIDINE HCL 0.2 MG TABS 1 q 8 hrs as needed -greater than 160-htn CLONIDINE HCL 60806133700 No Longer Active Jonel Hemphill MD Active AMBIEN 10 MG TABS 1 q hs prn ZOLPIDEM TARTRATE 40025537095 No Longer Active Jonel Hemphill MD Active GNP THERAPEUTIC-M TABS 1 qd MULTIPLE VITAMINS- MINERALS 61261452063 No Longer Active Jonel Hemphill MD Active METOPROLOL TARTRATE 50 MG TABS 1 bid METOPROLOL TARTRATE 77499385176 No Longer Active Jonel Hemphill MD Active METFORMIN HCL 500 MG TABS 1 bod with food METFORMIN HCL 93342378082 No Longer Active Jonel Hemphill MD Active LISINOPRIL 40 MG TABS 1 qd LISINOPRIL 65020708323 No Longer Active Jonel Hemphill MD Active HYDROCHLOROTHIAZIDE 25 MG TABS 1 qd HYDROCHLOROTHIAZIDE 02176414994 No Longer Active Jonel Hemphill MD Active DURAGESIC-25 25 MCG/HR PT72 place 1 patch on the skin q72hrs for pain FENTANYL 49962545717 No Longer Active Jonel Hemphill MD Active FENTANYL 75 MCG/HR PT72 place 1 patch on skin q72hrs fr pain 2012 FENTANYL 01974672306 No Longer Active Jonel Hemphill MD Active FUROSEMIDE 40 MG TABS 1 q am FUROSEMIDE 69705776417 No Longer Active Jonel Hemphill MD Active HEPARIN (PORCINE) LOCK FLUSH 100 UNIT/ML SOLN Flush port a cath monthly every three week on with Heparin and NS HEPARIN LOCK FLUSH 26167122190 Active Jonel Hemphill MD Active FENTANYL 100 MCG/HR PT72 Apply every 3 days FENTANYL 12000184898 Active Jonel Hemphill MD Active FENTANYL 25 MCG/HR PT72 Apply to clean skin and change every 72 hours. 07/03 FENTANYL 85713444487 No Longer Active Jonel Hemphill MD Active FENTANYL 50 MCG/HR PT72 place 1 patch on skin q72 hours FENTANYL 91712545765 No Longer Active Mayco Shah APRN Active DURAGESIC-12 12 MCG/HR PT72 APPLY PATCH TO SKIN AND CHANGE EVERY 72 HOURS, ROTATE SITES FENTANYL 15992478424 No Longer Active Fozia HERNANDEZ Active FUROSEMIDE 20 MG TABS 1 qd FUROSEMIDE 27381659251 No Longer Active Mahogany Carnegie Active ADULT ASPIRIN EC LOW STRENGTH 81 MG TBEC 1 qd ASPIRIN 01630699166 Active MARY Perez Active FUROSEMIDE 20 MG TABS 1 qd FUROSEMIDE 20 MG TABS 890620 FUROSEMIDE Inactive DURAGESIC-12 12 MCG/HR PT72 APPLY PATCH TO SKIN AND CHANGE EVERY 72 HOURS, ROTATE SITES DURAGESIC-12 12 MCG/HR PT72 278981 FENTANYL Inactive FENTANYL 50 MCG/HR PT72 place 1 patch on skin q72 hours FENTANYL 50 MCG/HR PT72 851050 FENTANYL Inactive FUROSEMIDE 40 MG TABS 1 q am FUROSEMIDE 40 MG TABS 250010 FUROSEMIDE Inactive FENTANYL 75 MCG/HR PT72 place 1 patch on skin q72hrs fr pain 2012 FENTANYL 75 MCG/HR PT72 418525 FENTANYL Inactive DURAGESIC-25 25 MCG/HR PT72 place 1 patch on the skin q72hrs for pain DURAGESIC-25 25 MCG/HR PT72 487442 FENTANYL Inactive HYDROCHLOROTHIAZIDE 25 MG TABS 1 qd HYDROCHLOROTHIAZIDE 25 MG TABS 827500 HYDROCHLOROTHIAZIDE Inactive LISINOPRIL 40 MG TABS 1 qd LISINOPRIL 40 MG TABS 483274 LISINOPRIL Inactive METFORMIN HCL 500 MG TABS 1 bod with food METFORMIN HCL 500 MG TABS 208058 METFORMIN HCL Inactive METOPROLOL TARTRATE 50 MG TABS 1 bid METOPROLOL TARTRATE 50 MG TABS 475395 METOPROLOL TARTRATE Inactive GNP THERAPEUTIC-M TABS 1 qd GNP THERAPEUTIC-M TABS MULTIPLE VITAMINS-MINERALS Inactive AMBIEN 10 MG TABS 1 q hs prn AMBIEN 10 MG TABS 485149 ZOLPIDEM TARTRATE Inactive CLONIDINE HCL 0.2 MG TABS 1 q 8 hrs as needed -greater than 160-htn CLONIDINE HCL 0.2 MG TABS 782433 CLONIDINE HCL Inactive ANTIVERT 25 MG TABS 1 q 6 hrs prn ANTIVERT 25 MG TABS MECLIZINE HCL Inactive NEURONTIN 400 MG CAPS Take one by mouth 3 times daily, morning, afternoon and evening.] NEURONTIN 400 MG CAPS 558295 GABAPENTIN Inactive IMDUR 120 MG [id number] 1 qd IMDUR 120 MG [id number] ISOSORBIDE MONONITRATE Inactive CVS MILK OF MAGNESIA [...] for arthritis pain MOBIC 15 MG TABS 607328 MELOXICAM Inactive LEVEMIR 100 UNIT/ML SOLN 5 units sub-q at bedtime LEVEMIR 100 UNIT/ML SOLN INSULIN DETEMIR Inactive SULFAMETHOXAZOLE-TMP DS 800-160 MG TABS 1 TAB PO BID SULFAMETHOXAZOLE-TMP DS 800-160 MG TABS 976542 SULFAMETHOXAZOLE-TRIMETHOPRIM Inactive AMBIEN 10 MG TAB 1 tab by mouth at bedtime as needed for sleep AMBIEN 10 MG TAB 488953 ZOLPIDEM TARTRATE Inactive POTASSIUM CHLORIDE CHELA ER 20 MEQ CR-TABS 1 tab PO daily POTASSIUM CHLORIDE CHELA ER 20 MEQ CR-TABS POTASSIUM CHLORIDE CHELA CR Inactive MIRALAX POWD 17 gms in 4 oz water or juice daily MIRALAX POWD 428628 POLYETHYLENE GLYCOL 3350 Inactive CVS VITAMIN C 500 MG TABS 1 po daily CVS VITAMIN C 500 MG TABS 352262 ASCORBIC ACID Inactive COZAAR 100 MG TABS 1 qd COZAAR 100 MG TABS 585815 LOSARTAN POTASSIUM Inactive ALLOPURINOL 300 MG TABS 1 qd ALLOPURINOL 300 MG TABS 639698 ALLOPURINOL Inactive BUDEPRION SR 150 MG [id number] 1 bid BUDEPRION SR 150 MG [id number] BUPROPION HCL Inactive DILANTIN 100 MG CAPS 3 cap tid DILANTIN 100 MG CAPS 646883 PHENYTOIN SODIUM EXTENDED Inactive HYDROCODONE-ACETAMINOPHEN 7.5-325 MG TABS 1 q 6 hrs prn HYDROCODONE-ACETAMINOPHEN 7.5-325 MG TABS 527046 HYDROCODONE- ACETAMINOPHEN Inactive GABAPENTIN 300 MG CAPS 1 CAP PO TID GABAPENTIN 300 MG CAPS 097129 GABAPENTIN Inactive GABAPENTIN 400 MG ORAL CAPS 1 TAB BY MOUTH THREE TIMES DAILY 2015 GABAPENTIN 400 MG ORAL CAPS 597560 GABAPENTIN Inactive METOPROLOL TARTRATE 50 MG ORAL TABS 1 TAB BY MOUTH TWICE DAILY METOPROLOL TARTRATE 50 MG ORAL TABS 928908 METOPROLOL TARTRATE Inactive ZYLOPRIM 300 MG TAB 1 BY MOUTH DAILY ZYLOPRIM 300 MG TAB 721113 ALLOPURINOL Inactive MECLIZINE HCL 25 MG CHEW TAB 1 four times a day as needed for dizziness 02/21 MECLIZINE HCL 25 MG CHEW TAB 461199 MECLIZINE HCL Inactive ATIVAN 0.5 MG TABS Take 1 tablet 2x daily PRN ATIVAN 0.5 MG TABS 978467 LORAZEPAM Inactive CELEXA 20 MG TABS Take 1 tablet 1x daily CELEXA 20 MG TABS 786487 CITALOPRAM HYDROBROMIDE Inactive FENTANYL 25 MCG/HR PT72 Apply to clean skin and change every 72 hours. 07/03 FENTANYL 25 MCG/HR PT72 348319 FENTANYL Inactive Advance Directives Directive Description Start [...] 10*3/mm3 Encounters Code Encounter Date Provider Facility CPT-49948 Level 3 Est. Patient 19:05:03 CDT Jonel Hemphill MD [facility] CPT-26018 Level 3 Est. Patient 17:30:47 CDT Kevin Link MD [facility]-43280 Level 3 Est. Patient 18:04:07 CDT Jonel Hemphill MD [facility] CPT-05493 Level 3 Est. Patient 17:18:03 CDT Jonel Hemphill MD [facility] CPT-53342 Level 3 Est. 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 Patient 18:03:14 CDT Jonel Yeager [facility]-23112 Level 4 Est. Patient 13:24:53 CDT Jonel Hemphill MD [facility]-92922 Level 4 Est. Patient 09:15:44 CDT Jonel Yeager [facility]-44478 Level 4 Est. Patient 19:16:01 CDT Jonel Yeager [facility]-51268 Level 4 Est. Patient 11:25:16 CDT Jonel Hemphill MD [facility] CPT-78822 Level 4 Est. Patient 09:00:40 CDT Jonel Yeager [facility]-48237 Level 4 Est. Patient 14:53:58 CDT Jonel Hemphill MD [facility] CPT-87438 Level 4 Est. Patient 22:59:01 CDT Jonel Hemphill MD [facility]-84308 Level 4 Est. Patient 09:29:57 CDT Jonel Hemphill MD [facility]-26905 Level 4 Est. Patient 12:35:53 FLOW TRADER Jonel Hemphill MD [facility]-35984 Level 4 Est. Patient 22:36:09 FLOW TRADER Jonel Hemphill MD [facility]-05824 Level 2 Est. Patient 15:14:15 FLOW TRADER Mayco Shah APRN [facility] CPT-84800 Level 4 Est. Patient 10:36:22 FLOW TRADER Jonel Hemphill MD [facility] CPT-29106 Level 4 Est. Patient 22:01:13 FLOW TRADER Jonel Hemphill MD [facility]-01930 Level 3 Est. Patient 21:50:37 FLOW TRADER Jonel Hemphill MD [facility] CPT-62080 Level 4 Est. Patient 15:02:43 CDT Rubin Pierre MD [facility] CPT-59630 Level 4 Est. Patient 14:27:35 CDT Jonel Hemphill MD [facility]-47167 Level 4 Est. Patient 12:41:17 CDT Jonel Hemphill MD [facility]-26716 Level 4 Est. Patient 16:18:55 CDT Jonel Hemphill MD [facility]-18182 Level 4 Est. Patient 17:58:05 CDT Jonel Hemphill MD [facility]-83255 Level 4 Est. Patient 22:10:06 CDT Jonel Hemphill MD [facility]-59790 Level 4 Est. Patient 13:22:09 CDT Jonel Hemphill MD [facility]-49155 Level 4 Est. Patient 22:52:17 FLOW TRADER Jonel Hemphill MD [facility]-50083 Level 3 Est. Patient 22:34:10 FLOW TRADER Jonel Hemphill MD [facility]-55691 Level 4 Est. Patient 07:49:20 FLOW TRADER Jonel Hemphill MD [facility] CPT-69680 Level 3 Est. Patient 08:28:27 FLOW TRADER Jonel Hemphill MD [facility] Procedures Code Procedure Name Date Entry Date Standard Description CPT-72853 Level 3 Retirement 19:03:14 CDT CPT-17414 Level 3 Retirement 17:42:11 CDT CPT-78101 Level 3 Retirement 16:04:10 CDT CPT-85326 Level 3 Retirement 19:38:15 FLOW TRADER CPT-06162 Level 3 Retirement 19:28:48 FLOW TRADER CPT-66902 Level 3 Retirement 18:02:20 FLOW TRADER CPT-10329 Level 3 Retirement 15:02:14 FLOW TRADER CPT-60243 Level 3 Retirement 12:25:37 CDT CPT-02118 Level 3 Retirement 12:48:39 CDT CPT-23171 Level 3 Retirement 17:39:14 CDT CPT-43643 Level 3 Retirement 13:32:58 CDT CPT-55230 Level 3 Retirement 17:43:43 CDT CPT-26241 Level 3 Retirement 12:03:33 FLOW TRADER CPT-75661 Level 3 Retirement 18:47:28 FLOW TRADER CPT-53697 Level 3 Retirement 17:35:26 FLOW TRADER CPT-32099 Level 3 Retirement 18:44:49 FLOW TRADER CPT-99909 Level 3 Retirement 18:17:33 CDT CPT-69071 Level 3 Retirement 09:25:33 CDT CPT-88479 Level 3 Retirement 19:11:57 CDT CPT-37682 Level 3 Retirement 09:25:52 CDT CPT-47792 Level 3 Retirement 14:23:59 CDT CPT-60816 Level 3 Retirement 12:09:43 CDT CPT-92614 Level 3 Retirement 09:37:40 CDT CPT-63923 Level 3 Retirement 18:23:02 CDT CPT-46773 Level 3 Retirement 14:09:06 CDT CPT-79713 Level 3 Retirement 12:43:27 FLOW TRADER CPT-27017 Postop F/U Visit 14:10:15 FLOW TRADER CPT-82660 [facility] 17:07:14 FLOW TRADER CPT-13171 Level 3 Retirement 16:14:37 FLOW TRADER CPT-59250 Port a cath flush 11:47:42 CDT CPT-22456 Port a cath flush 08:29:49 CDT CPT-OV Office Visit 14:27:58 FLOW TRADER
--- OUTSIDE RECORDS SUMMARY | 2016-08-07 11:49 | XMS REPORT | Clinical Summary ---
Author Author Admin, KARLAE Organization [facility] Address Unknown Phone Unavailable Allergies, Adverse Reactions, 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, SPEECH AND HEARING DIRECTOR V58.69 Resolved Jonel Hemphill MD Long-term (current) [...] Coronary atherosclerosis of unspecified type of vessel, deering or graft FH DIABETES V18.0 Resolved Jonel [...] Coronary atherosclerosis of unspecified type of vessel, deering or graft CONSTIPATION 564.00 Resolved Jonel Hemphill [...] involving pelvic region and thigh 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 USE, ASSISTED ICD-V58.69 Inactive Jonel Hemphill [...] TIMES DAILY FOR SEIZURES PHENYTOIN SODIUM EXTENDED 54639063558 Active Marleni Romero Active CPAP APPLY AT HS CPAP Active Jonel Hemphill MD Active METOPROLOL TARTRATE 50 MG ORAL TABS 1 TAB BY MOUTH TWICE DAILY METOPROLOL TARTRATE 14125357661 Active Jonel Hemphill MD Active LISINOPRIL 40 MG TABS 1 tablet by mouth twice daily, for blood pressure 03/31 LISINOPRIL 09662483950 Active Jonel Hemphill MD Active BUPROPION HCL ER (SR) 150 MG [id number] 1 twice a day for depression BUPROPION HCL 14846448295 Active Jonel Hemphill MD Active MULTIVITAMINS CAPS 1 DAILY MULTIPLE VITAMIN 76439334029 Active Jonel Hemphill MD Active ZYLOPRIM 300 MG TAB 1 BY MOUTH DAILY ALLOPURINOL 57841483568 Active Jonel Hemphill MD Active HYDROCODONE-ACETAMINOPHEN 7.5-325 MG TABS 1 q 6 hrs prn HYDROCODONE-ACETAMINOPHEN 85147682815 No Longer Active Jonel Hemphill MD Active DILANTIN 100 MG CAPS 3 cap tid PHENYTOIN SODIUM EXTENDED 70699014977 No Longer Active Jonel Hemphill MD Active BUDEPRION SR 150 MG [id number] 1 bid BUPROPION HCL 25322817762 No Longer Active Jonel Hemphill MD Active ALLOPURINOL 300 MG TABS 1 qd ALLOPURINOL 53090719740 No Longer Active Jonel Hemphill MD Active COZAAR 100 MG TABS 1 qd LOSARTAN POTASSIUM 39744193558 No Longer Active Jonel Hemphill MD Active CVS VITAMIN C 500 MG TABS 1 po daily ASCORBIC ACID 28528999205 No Longer Active Jonel Hemphill MD Active MIRALAX POWD 17 gms in 4 oz water or juice daily POLYETHYLENE GLYCOL 3350 72525795860 No Longer Active Jonel Hemphill MD Active POTASSIUM CHLORIDE CHELA ER 20 MEQ CR-TABS 1 tab PO daily POTASSIUM CHLORIDE CHELA CR 62247726573 No Longer Active Jonel Hemphill MD Active AMBIEN 10 MG TAB 1 tab by mouth at bedtime as needed for sleep ZOLPIDEM TARTRATE 37246946745 No Longer Active Jonel Hemphill MD Active SULFAMETHOXAZOLE-TMP DS 800-160 MG TABS 1 TAB PO BID SULFAMETHOXAZOLE-TRIMETHOPRIM 98922323549 No Longer Active Jonel Hemphill MD Active NORCO 5-325 MG TABS 1-2 TAB Q 6 HRS PRN HYDROCODONE- ACETAMINOPHEN 48531720594 Active Jonel Hemphill MD Active LEVEMIR 100 UNIT/ML SOLN 5 units sub-q at bedtime INSULIN DETEMIR 94329360230 No Longer Active Tova Perez Active MOBIC 15 MG TABS 1 tab PO daily for arthritis pain MELOXICAM 06770753738 No Longer Active Tova Chris Active GLUCAGEN 1 MG SOLR INJECT 1MG IM IF BS LESS THAN 60 & RES. IS UNABLE TO SWALLOW GLUCAGON HCL (RDNA) 74434980976 No Longer Active Tova Chris Active [facility]S MILK OF MAGNESIA 1200 MG/15ML SUSP 30 ml daily for constipation MAGNESIUM HYDROXIDE 56612649371 No Longer Active Tova Chris Active IMDUR 120 MG [id number] 1 qd ISOSORBIDE MONONITRATE 08421751014 No Longer Active Tova Chris Active METFORMIN HCL 500 MG TABS 1 tablet by mouth twice daily METFORMIN HCL 46128299838 Active Tova Chris Active PHENYTOIN 50 MG CHEW 1 TAB PO BID PHENYTOIN 71847789099 Active Tova Chris Active MECLIZINE HCL 25 MG CHEW TAB 1 four times a day as needed for dizziness 02/21 MECLIZINE HCL 01835775570 Active Tova Perez Active GABAPENTIN 300 MG CAPS 1 CAP PO TID GABAPENTIN 58991506812 Active Tova Perez Active NEURONTIN 400 MG CAPS Take one by mouth 3 times daily, morning, afternoon and evening.] GABAPENTIN 47963495606 No Longer Active Tova Perez Active ANTIVERT 25 MG TABS 1 q 6 hrs prn MECLIZINE HCL 51011083969 No Longer Active Jonel Hemphill MD Active CLONIDINE HCL 0.2 MG TABS 1 q 8 hrs as needed -greater than 160-htn CLONIDINE HCL 76305640550 No Longer Active Jonel Hemphill MD Active AMBIEN 10 MG TABS 1 q hs prn ZOLPIDEM TARTRATE 68684111664 No Longer Active Jonel Hemphill MD Active GNP THERAPEUTIC-M TABS 1 qd MULTIPLE VITAMINS- MINERALS 43113393063 No Longer Active Jonel Hemphill MD Active METOPROLOL TARTRATE 50 MG TABS 1 bid METOPROLOL TARTRATE 81575872721 No Longer Active Jonel Hemphill MD Active METFORMIN HCL 500 MG TABS 1 bod with food METFORMIN HCL 59839346910 No Longer Active Jonel Hemphill MD Active LISINOPRIL 40 MG TABS 1 qd LISINOPRIL 83191150318 No Longer Active Jonel Hemphill MD Active HYDROCHLOROTHIAZIDE 25 MG TABS 1 qd HYDROCHLOROTHIAZIDE 73303357515 No Longer Active Jonel Hemphill MD Active DURAGESIC-25 25 MCG/HR PT72 place 1 patch on the skin q72hrs for pain FENTANYL 92448433254 No Longer Active Jonel Hemphill MD Active FENTANYL 75 MCG/HR PT72 place 1 patch on skin q72hrs fr pain 2012 FENTANYL 90466978251 No Longer Active Jonel Hemphill MD Active LASIX 20 MG TABS 1 tab PO q morning FUROSEMIDE 70364510093 Active Jonel Hemphill MD Active FUROSEMIDE 40 MG TABS 1 q am FUROSEMIDE 43007133547 No Longer Active Jonel Hemphill MD Active HEPARIN (PORCINE) LOCK FLUSH 100 UNIT/ML SOLN Flush port a cath monthly every three week on with Heparin and NS HEPARIN LOCK FLUSH 72230532543 Active Jonel Hemphill MD Active FENTANYL 100 MCG/HR PT72 Apply every 3 days FENTANYL 06550833404 Active Jonel Hemphill MD Active FENTANYL 25 MCG/HR PT72 Apply to clean skin and change every 72 hours. 07/03 FENTANYL 08014740419 No Longer Active Jonel Hemphill MD Active FENTANYL 50 MCG/HR PT72 place 1 patch on skin q72 hours FENTANYL 31392064270 No Longer Active Mayco Shah APRN Active ATIVAN 0.5 MG TABS Take 1 tablet 2x daily LORAZEPAM 01442027857 Active Jonel Hemphill MD Active CELEXA 20 MG TABS Take 1 tablet 1x daily CITALOPRAM HYDROBROMIDE 63634344821 Active Jonel Hemphill MD Active DURAGESIC-12 12 MCG/HR PT72 APPLY PATCH TO SKIN AND CHANGE EVERY 72 HOURS, ROTATE SITES FENTANYL 39788519045 No Longer Active Fozia HERNANDEZ Active FUROSEMIDE 20 MG TABS 1 qd FUROSEMIDE 87743720415 No Longer Active Mahgoany Bolivar Active ADULT ASPIRIN EC LOW STRENGTH 81 MG TBEC 1 qd ASPIRIN 24343844055 Active MARY Perez Active FUROSEMIDE 20 MG TABS 1 qd FUROSEMIDE 20 MG TABS 046596 FUROSEMIDE Inactive DURAGESIC-12 12 MCG/HR PT72 APPLY PATCH TO SKIN AND CHANGE EVERY 72 HOURS, ROTATE SITES DURAGESIC-12 12 MCG/HR PT72 886382 FENTANYL Inactive FENTANYL 50 MCG/HR PT72 place 1 patch on skin q72 hours FENTANYL 50 MCG/HR PT72 044460 FENTANYL Inactive FUROSEMIDE 40 MG TABS 1 q am FUROSEMIDE 40 MG TABS 891071 FUROSEMIDE Inactive FENTANYL 75 MCG/HR PT72 place 1 patch on skin q72hrs fr pain 2012 FENTANYL 75 MCG/HR PT72 402613 FENTANYL Inactive DURAGESIC-25 25 MCG/HR PT72 place 1 patch on the skin q72hrs for pain DURAGESIC-25 25 MCG/HR PT72 167808 FENTANYL Inactive HYDROCHLOROTHIAZIDE 25 MG TABS 1 qd HYDROCHLOROTHIAZIDE 25 MG TABS 194559 HYDROCHLOROTHIAZIDE Inactive LISINOPRIL 40 MG TABS 1 qd LISINOPRIL 40 MG TABS 688561 LISINOPRIL Inactive METFORMIN HCL 500 MG TABS 1 bod with food METFORMIN HCL 500 MG TABS 818815 METFORMIN HCL Inactive METOPROLOL TARTRATE 50 MG TABS 1 bid METOPROLOL TARTRATE 50 MG TABS 278665 METOPROLOL TARTRATE Inactive GNP THERAPEUTIC-M TABS 1 qd GNP THERAPEUTIC-M TABS MULTIPLE VITAMINS-MINERALS Inactive AMBIEN 10 MG TABS 1 q hs prn AMBIEN 10 MG TABS 379037 ZOLPIDEM TARTRATE Inactive CLONIDINE HCL 0.2 MG TABS 1 q 8 hrs as needed -greater than 160-htn CLONIDINE HCL 0.2 MG TABS 015177 CLONIDINE HCL Inactive ANTIVERT 25 MG TABS 1 q 6 hrs prn ANTIVERT 25 MG TABS MECLIZINE HCL Inactive NEURONTIN 400 MG CAPS Take one by mouth 3 times daily, morning, afternoon and evening.] NEURONTIN 400 MG CAPS 613814 GABAPENTIN Inactive IMDUR 120 MG [id number] 1 qd IMDUR 120 MG [id number] ISOSORBIDE MONONITRATE Inactive CVS MILK OF MAGNESIA [...] for arthritis pain MOBIC 15 MG TABS 272556 MELOXICAM Inactive LEVEMIR 100 UNIT/ML SOLN 5 units sub-q at bedtime LEVEMIR 100 UNIT/ML SOLN INSULIN DETEMIR Inactive SULFAMETHOXAZOLE-TMP DS 800-160 MG TABS 1 TAB PO BID SULFAMETHOXAZOLE-TMP DS 800-160 MG TABS SULFAMETHOXAZOLE-TRIMETHOPRIM Inactive AMBIEN 10 MG TAB 1 tab by mouth at bedtime as needed for sleep AMBIEN 10 MG TAB 365566 ZOLPIDEM TARTRATE Inactive POTASSIUM CHLORIDE CHELA ER 20 MEQ CR-TABS 1 tab PO daily POTASSIUM CHLORIDE CHELA ER 20 MEQ CR-TABS POTASSIUM CHLORIDE CHELA CR Inactive MIRALAX POWD 17 gms in 4 oz water or juice daily MIRALAX POWD 806767 POLYETHYLENE GLYCOL 3350 Inactive CVS VITAMIN C 500 MG TABS 1 po daily CVS VITAMIN C 500 MG TABS 507730 ASCORBIC ACID Inactive COZAAR 100 MG TABS 1 qd COZAAR 100 MG TABS 003398 LOSARTAN POTASSIUM Inactive ALLOPURINOL 300 MG TABS 1 qd ALLOPURINOL 300 MG TABS 765204 ALLOPURINOL Inactive BUDEPRION SR 150 MG [id number] 1 bid BUDEPRION SR 150 MG [id number] BUPROPION HCL Inactive DILANTIN 100 MG CAPS 3 cap tid DILANTIN 100 MG CAPS 915052 PHENYTOIN SODIUM EXTENDED Inactive HYDROCODONE-ACETAMINOPHEN 7.5-325 MG TABS 1 q 6 hrs prn HYDROCODONE-ACETAMINOPHEN 7.5-325 MG TABS 302801 HYDROCODONE- ACETAMINOPHEN Inactive FENTANYL 25 MCG/HR PT72 Apply to clean skin and change every 72 hours. 07/03 FENTANYL 25 MCG/HR PT72 297147 FENTANYL Inactive Advance Directives Directive Description Start [...] rate temperature E&M 96.1 [degF] Body temperature Diagnostic Results Date Name [...] Lab Report: CBC W/DIFF, Comp. Metabolic Panel, [facility] A/B - Chemistry sodium, serum 142 mmol/L 316-495 7105/01/20 potassium, serum 3.9 mmol/L 3.5-5.2 chloride, serum [...] Lab Report: CBC W/DIFF, Comp. Metabolic Panel, [facility] IN[facility] A/B - Hematology leukocyte count, blood [...] rapid flu test Negative Negative;Positive Lab Report: CMP, URIC ACID - Chemistry sodium, serum 142 mmol/L potassium, serum 4.5 mmol/L blood glucose 94 mg/dL creatinine, serum 0.79 mg/dL aspartate aminotransferase (SGOT), serum 24 U/L alanine aminotransferase (SGPT), serum 28 U/L alkaline phosphatase, serum 54 U/L Encounters Code Encounter Date Provider Facility CPT-60410 Level 3 Est. Patient 18:04:07 CDT Jonel Hemphill MD [facility] CPT-63712 Level 3 Est. Patient 17:18:03 CDT Jonel Hemphill MD [facility] CPT-49447 Level 3 Est. Patient 21:58:03 STUDENT DEVELOPMENT SPECIALIST Jonel Hemphill MD [facility] CPT-96082 Level 4 Est. Patient 18:03:14 CDT Jonel Yeager [facility]-33039 Level 4 Est. Patient 13:24:53 CDT Jonel Yeager [facility]-74926 Level 4 Est. Patient 09:15:44 CDT Jonel Yeager [facility]-89128 Level 4 Est. Patient 19:16:01 CDT Jonel Yeager [facility] CPT-22213 Level 4 Est. Patient 11:25:16 CDT Jonel Hemphill MD [facility] CPT-87377 Level 4 Est. Patient 09:00:40 CDT Jonel Hemphill MD [facility]-07717 Level 4 Est. Patient 14:53:58 CDT Jonel Hemphill MD [facility]-16387 Level 4 Est. Patient 22:59:01 CDT Jonel Hemphill MD [facility]-95719 Level 4 Est. Patient 09:29:57 CDT Jonel Hemphill MD [facility]-04841 Level 4 Est. Patient 12:35:53 STUDENT DEVELOPMENT SPECIALIST Jonel Hemphill MD [facility]-37128 Level 4 Est. Patient 22:36:09 STUDENT DEVELOPMENT SPECIALIST Jonel Hemphill MD [facility]-34950 Level 2 Est. Patient 15:14:15 STUDENT DEVELOPMENT SPECIALIST Mayco Shah APRN [facility] CPT-82742 Level 4 Est. Patient 10:36:22 STUDENT DEVELOPMENT SPECIALIST Jonel Hemphill MD [facility] CPT-45901 Level 4 Est. Patient 22:01:13 STUDENT DEVELOPMENT SPECIALIST Jonel Hemphill MD [facility]-71729 Level 3 Est. Patient 21:50:37 STUDENT DEVELOPMENT SPECIALIST Jonel Hemphill MD [facility]-95157 Level 4 Est. Patient 15:02:43 CDT Rubin Pierre MD [facility] CPT-35551 Level 4 Est. Patient 14:27:35 CDT Jonel Hemphill MD [facility]-78859 Level 4 Est. Patient 12:41:17 CDT Jonel Hemphill MD [facility]-22234 Level 4 Est. Patient 16:18:55 CDT Jonel Hemphill MD [facility]-19940 Level 4 Est. Patient 17:58:05 CDT Jonel Hemphill MD [facility] CPT-90112 Level 4 Est. Patient 22:10:06 CDT Jonel Hemphill MD [facility] CPT-55968 Level 4 Est. Patient 13:22:09 CDT Jonel Hemphill MD [facility] CPT-66080 Level 4 Est. Patient 22:52:17 STUDENT DEVELOPMENT SPECIALIST Jonel Hemphill MD [facility] CPT-73807 Level 3 Est. Patient 22:34:10 STUDENT DEVELOPMENT SPECIALIST Jonel Hemphill MD [facility] CPT-82940 Level 4 Est. Patient 07:49:20 STUDENT DEVELOPMENT SPECIALIST Jonel Hemphill MD [facility] Skilled CPT-81710 Level 3 Est. Patient 08:28:27 STUDENT DEVELOPMENT SPECIALIST Jonel Hemphill MD [facility] Procedures Code Procedure Name Date Entry Date Standard Description CPT-86266 Level 3 [facility] 17:43:43 CDT CPT-09569 Level 3 [facility] 12:03:33 STUDENT DEVELOPMENT SPECIALIST CPT-03296 Level 3 [facility] 18:47:28 STUDENT DEVELOPMENT SPECIALIST CPT-22831 Level 3 [facility] 17:35:26 STUDENT DEVELOPMENT SPECIALIST CPT-89935 Level 3 [facility] 18:44:49 STUDENT DEVELOPMENT SPECIALIST CPT-15832 Level 3 [facility] 18:17:33 CDT CPT-36740 Level 3 [facility] 09:25:33 CDT CPT-09009 Level 3 [facility] 19:11:57 CDT CPT-11865 Level 3 [facility] 09:25:52 CDT CPT-07954 Level 3 [facility] 14:23:59 CDT CPT-28008 Level 3 [facility] 12:09:43 CDT CPT-02472 Level 3 [facility] 09:37:40 CDT CPT-64976 Level 3 [facility] 18:23:02 CDT CPT-45039 Level 3 [facility] 14:09:06 CDT CPT-15324 Level 3 [facility] 12:43:27 STUDENT DEVELOPMENT SPECIALIST CPT-11035 Postop F/U Visit 14:10:15 STUDENT DEVELOPMENT SPECIALIST CPT-26854 [facility] 17:07:14 STUDENT DEVELOPMENT SPECIALIST CPT-35455 Level 3 [facility] 16:14:37 STUDENT DEVELOPMENT SPECIALIST CPT-43685 Port a cath flush 11:47:42 CDT CPT-28184 Port a cath flush 08:29:49 CDT CPT-OV Office Visit 14:27:58 STUDENT DEVELOPMENT SPECIALIST
--- OUTSIDE RECORDS SUMMARY | 2016-08-07 11:51 | XMS REPORT | Clinical Summary ---
Author Author Admin, [place] Organization [facility] Address Unknown Phone Unavailable Allergies, 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, SHAFT HEADMAN V58.69 Resolved Jonel Hemphill MD Long-term (current) [...] Other convulsions CORONARY HEART DISEASE 414.00 Resolved Jonle Hemphill MD Coronary atherosclerosis of unspecified type of vessel, [place] or graft FH DIABETES V18.0 Resolved Jonel [...] Coronary atherosclerosis of unspecified type of vessel, [place] or graft CONSTIPATION 564.00 Resolved Jonel Hemphill MD Constipation, unspecified RECTAL BLEEDING 569.3 Resolved Jonel Hemphill MD Hemorrhage of rectum and anus FITTING AND ADJUSTMENT OF VASCULAR CATHETER V58.81 Resolved 2012 Jonel Hemphill MD Encounter for fitting and adjustment of vascular catheter VENOUS STASIS ULCER 454.0 Resolved Jonel Hemphill MD Varicose veins of lower extremities with ulcer RECTAL BLEEDING 569.3 Resolved Jnoel Hemphill MD Hemorrhage of rectum and anus [...] device, implant, and graft 996.69 Resolved Jonel eHmphill MD Infection and inflammatory reaction due to [...] Jonel Hemphill MD Painful respiration 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 USE, SHAFT HEADMAN ICD-V58.69 Inactive Jonel Hemphill MD DIABETES, TYPE [...] RECTAL BLEEDING ICD-569.3 Inactive Jonel Hmephill MD FITTING AND ADJUSTMENT OF VASCULAR CATHETER [...] ORAL TABS 1 daily for gout. FEBUXOSTAT 50334276531 Active Marleni Romero Active HYDROCODONE-ACETAMINOPHEN 7.5-325 MG TABS 1 TAB PO Q 6 HRS PRN HYDROCODONE-ACETAMINOPHEN 46777095861 Active Jonel Hemphill MD Active METFORMIN HCL 1000 MG TABS 1 tablet by mouth twice daily METFORMIN HCL 39763476932 Active Marleni Romero Active FENTANYL 12 MCG/HR PT72 Apply to clean, dry skin and change every 72 hours FENTANYL 86584018262 Active Mattie Gates APRN Active KLOR-CON 20 MEQ ORAL PACK 1 BY MOUTH DAILY POTASSIUM CHLORIDE 37526787306 Active Marleni Romero Active A+D FIRST AID EXT OINT APPLY OINTMENT AND RUFINO WRAPS TO LOWER EXTEREMETIES DAILY SKIN PROTECTANTS, MISC. 28198956971 Active Jonel Hemphill MD Active NYSTATIN 553486 UNIT/GM EXT OINT APPLY PRN TID TO GAULDING/RASH IN ABDOMINAL FOLDS NYSTATIN 80811927381 Active Jonel Hemphill MD Active ATIVAN 0.5 MG TABS Take 1 tablet 2x daily PRN LORAZEPAM 58778551166 Active Jonel Hemphill MD Active GABAPENTIN 400 MG ORAL CAPS 1 TAB BY MOUTH THREE TIMES DAILY GABAPENTIN 37537455322 Active Jonel Hemphill MD Active GABAPENTIN 300 MG CAPS 1 CAP PO TID GABAPENTIN 99251667754 No Longer Active Jonel Hemphill MD Active DILANTIN 100 MG ORAL CAPS 1 THREE TIMES DAILY FOR SEIZURES PHENYTOIN SODIUM EXTENDED 69132293452 Active Marleni Romero Active CPAP APPLY AT HS CPAP Active Jonel Hemphill MD Active METOPROLOL TARTRATE 50 MG ORAL TABS 1 TAB BY MOUTH TWICE DAILY METOPROLOL TARTRATE 45934839072 Active Jonel Hemphill MD Active LISINOPRIL 40 MG TABS 1 tablet by mouth twice daily, for blood pressure 03/31 LISINOPRIL 88338110391 Active Jonel Hemphill MD Active BUPROPION HCL ER (SR) 150 MG [id number] 1 twice a day for depression BUPROPION HCL 61856899172 Active Jonel Hemphill MD Active MULTIVITAMINS CAPS 1 DAILY MULTIPLE VITAMIN 27234566302 Active Jonel Hemphill MD Active ZYLOPRIM 300 MG TAB 1 BY MOUTH DAILY ALLOPURINOL 04846077782 Active Jonel Hemphill MD Active HYDROCODONE-ACETAMINOPHEN 7.5-325 MG TABS 1 q 6 hrs prn HYDROCODONE-ACETAMINOPHEN 61248572810 No Longer Active Jonel Hemphill MD Active DILANTIN 100 MG CAPS 3 cap tid PHENYTOIN SODIUM EXTENDED 60180727954 No Longer Active Jonel Hemphill MD Active BUDEPRION SR 150 MG [id number] 1 bid BUPROPION HCL 82212844876 No Longer Active Jonel Hemphill MD Active ALLOPURINOL 300 MG TABS 1 qd ALLOPURINOL 86770120634 No Longer Active Jonel Hemphill MD Active COZAAR 100 MG TABS 1 qd LOSARTAN POTASSIUM 38828366087 No Longer Active Jonel Hemphill MD Active CVS VITAMIN C 500 MG TABS 1 po daily ASCORBIC ACID 27252531404 No Longer Active Jonel Hemphill MD Active MIRALAX POWD 17 gms in 4 oz water or juice daily POLYETHYLENE GLYCOL 3350 83516298482 No Longer Active Jonel Hemphill MD Active POTASSIUM CHLORIDE CHELA ER 20 MEQ CR-TABS 1 tab PO daily POTASSIUM CHLORIDE CHELA CR 06390223731 No Longer Active Jonel Hemphill MD Active AMBIEN 10 MG TAB 1 tab by mouth at bedtime as needed for sleep ZOLPIDEM TARTRATE 26399653404 No Longer Active Jonel Hemphill MD Active SULFAMETHOXAZOLE-TMP DS 800-160 MG TABS 1 TAB PO BID SULFAMETHOXAZOLE-TRIMETHOPRIM 42904583065 No Longer Active Jonel Hemphill MD Active NORCO 5-325 MG TABS 1-2 TAB Q 6 HRS PRN HYDROCODONE- ACETAMINOPHEN 97916210170 Active Jonel Hemphill MD Active LEVEMIR 100 UNIT/ML SOLN 5 units sub-q at bedtime INSULIN DETEMIR 63193072404 No Longer Active Tova Perez Active MOBIC 15 MG TABS 1 tab PO daily for arthritis pain MELOXICAM 02139349566 No Longer Active Tova Perez Active GLUCAGEN 1 MG SOLR INJECT 1MG IM IF BS LESS THAN 60 & RES. IS UNABLE TO SWALLOW GLUCAGON HCL (RDNA) 94924322347 No Longer Active Tova Perez Active CVS MILK OF MAGNESIA 1200 MG/15ML SUSP 30 ml daily for constipation MAGNESIUM HYDROXIDE 75425797230 No Longer Active Tova Perez Active IMDUR 120 MG [id number] 1 qd ISOSORBIDE MONONITRATE 39158997731 No Longer Active Tova Chris Active PHENYTOIN 50 MG CHEW 1 TAB PO BID PHENYTOIN 74075275766 Active Tova Chris Active MECLIZINE HCL 25 MG CHEW TAB 1 four times a day as needed for dizziness 02/21 MECLIZINE HCL 84473115636 Active Tova Chris Active NEURONTIN 400 MG CAPS Take one by mouth 3 times daily, morning, afternoon and evening.] GABAPENTIN 25806984633 No Longer Active Tova Perez Active ANTIVERT 25 MG TABS 1 q 6 hrs prn MECLIZINE HCL 39445078019 No Longer Active Jonel Hemphill MD Active CLONIDINE HCL 0.2 MG TABS 1 q 8 hrs as needed -greater than 160-htn CLONIDINE HCL 30631433367 No Longer Active Jonel Hemphill MD Active AMBIEN 10 MG TABS 1 q hs prn ZOLPIDEM TARTRATE 32048518919 No Longer Active Jonel Hemphill MD Active GNP THERAPEUTIC-M TABS 1 qd MULTIPLE VITAMINS- MINERALS 10776384589 No Longer Active Jonel Hemphill MD Active METOPROLOL TARTRATE 50 MG TABS 1 bid METOPROLOL TARTRATE 75055321488 No Longer Active Jonel Hemphill MD Active METFORMIN HCL 500 MG TABS 1 bod with food METFORMIN HCL 60859734662 No Longer Active Jonel Hemphill MD Active LISINOPRIL 40 MG TABS 1 qd LISINOPRIL 38702599959 No Longer Active Jonel Hemphill MD Active HYDROCHLOROTHIAZIDE 25 MG TABS 1 qd HYDROCHLOROTHIAZIDE 95731742123 No Longer Active Jonel Hemphill MD Active DURAGESIC-25 25 MCG/HR PT72 place 1 patch on the skin q72hrs for pain FENTANYL 68574742079 No Longer Active Jonel Hemphill MD Active FENTANYL 75 MCG/HR PT72 place 1 patch on skin q72hrs fr pain 2012 FENTANYL 23920089572 No Longer Active Jonel Hemphill MD Active LASIX 20 MG TABS 1 tab PO q morning FUROSEMIDE 60134262910 Active Jonel Hemphill MD Active FUROSEMIDE 40 MG TABS 1 q am FUROSEMIDE 73497148112 No Longer Active Jonel Hemphill MD Active HEPARIN (PORCINE) LOCK FLUSH 100 UNIT/ML SOLN Flush port a cath monthly every three week on with Heparin and NS HEPARIN LOCK FLUSH 74567633064 Active Jonel Hemphill MD Active FENTANYL 100 MCG/HR PT72 Apply every 3 days FENTANYL 38379173966 Active Mattie Gates APRN Active FENTANYL 25 MCG/HR PT72 Apply to clean skin and change every 72 hours. 07/03 FENTANYL 10028779468 No Longer Active Jonel Hemphill MD Active FENTANYL 50 MCG/HR PT72 place 1 patch on skin q72 hours FENTANYL 30165938514 No Longer Active Mayco Shah APRN Active CELEXA 20 MG TABS Take 1 tablet 1x daily CITALOPRAM HYDROBROMIDE 63060317658 Active Jonel Hemphill MD Active DURAGESIC-12 12 MCG/HR PT72 APPLY PATCH TO SKIN AND CHANGE EVERY 72 HOURS, ROTATE SITES FENTANYL 07746762965 No Longer Active Fozia Amador RMA Active FUROSEMIDE 20 MG TABS 1 qd FUROSEMIDE 17161634158 No Longer Active [place] Active ADULT ASPIRIN EC LOW STRENGTH 81 MG TBEC 1 qd ASPIRIN 39900794394 Active MARY Perez Active FUROSEMIDE 20 MG TABS 1 qd FUROSEMIDE 20 MG TABS 383933 FUROSEMIDE Inactive DURAGESIC-12 12 MCG/HR PT72 APPLY PATCH TO SKIN AND CHANGE EVERY 72 HOURS, ROTATE SITES DURAGESIC-12 12 MCG/HR PT72 908087 FENTANYL Inactive FENTANYL 50 MCG/HR PT72 place 1 patch on skin q72 hours FENTANYL 50 MCG/HR PT72 027795 FENTANYL Inactive FUROSEMIDE 40 MG TABS 1 q am FUROSEMIDE 40 MG TABS 621909 FUROSEMIDE Inactive FENTANYL 75 MCG/HR PT72 place 1 patch on skin q72hrs fr pain 2012 FENTANYL 75 MCG/HR PT72 689018 FENTANYL Inactive DURAGESIC-25 25 MCG/HR PT72 place 1 patch on the skin q72hrs for pain DURAGESIC-25 25 MCG/HR PT72 272412 FENTANYL Inactive HYDROCHLOROTHIAZIDE 25 MG TABS 1 qd HYDROCHLOROTHIAZIDE 25 MG TABS 075861 HYDROCHLOROTHIAZIDE Inactive LISINOPRIL 40 MG TABS 1 qd LISINOPRIL 40 MG TABS 473332 LISINOPRIL Inactive METFORMIN HCL 500 MG TABS 1 bod with food METFORMIN HCL 500 MG TABS 871296 METFORMIN HCL Inactive METOPROLOL TARTRATE 50 MG TABS 1 bid METOPROLOL TARTRATE 50 MG TABS 043404 METOPROLOL TARTRATE Inactive GNP THERAPEUTIC-M TABS 1 qd GNP THERAPEUTIC-M TABS MULTIPLE VITAMINS-MINERALS Inactive AMBIEN 10 MG TABS 1 q hs prn AMBIEN 10 MG TABS 802438 ZOLPIDEM TARTRATE Inactive CLONIDINE HCL 0.2 MG TABS 1 q 8 hrs as needed -greater than 160-htn CLONIDINE HCL 0.2 MG TABS 168821 CLONIDINE HCL Inactive ANTIVERT 25 MG TABS 1 q 6 hrs prn ANTIVERT 25 MG TABS MECLIZINE HCL Inactive NEURONTIN 400 MG CAPS Take one by mouth 3 times daily, morning, afternoon and evening.] NEURONTIN 400 MG CAPS 736078 GABAPENTIN Inactive IMDUR 120 MG [id number] 1 qd IMDUR 120 MG [id number] ISOSORBIDE MONONITRATE Inactive CVS MILK OF MAGNESIA [...] for arthritis pain MOBIC 15 MG TABS 062204 MELOXICAM Inactive LEVEMIR 100 UNIT/ML SOLN 5 units sub-q at bedtime LEVEMIR 100 UNIT/ML SOLN INSULIN DETEMIR Inactive SULFAMETHOXAZOLE-TMP DS 800-160 MG TABS 1 TAB PO BID SULFAMETHOXAZOLE-TMP DS 800-160 MG TABS 628903 SULFAMETHOXAZOLE-TRIMETHOPRIM Inactive AMBIEN 10 MG TAB 1 tab by mouth at bedtime as needed for sleep AMBIEN 10 MG TAB 791242 ZOLPIDEM TARTRATE Inactive POTASSIUM CHLORIDE CHELA ER 20 MEQ CR-TABS 1 tab PO daily POTASSIUM CHLORIDE CHELA ER 20 MEQ CR-TABS POTASSIUM CHLORIDE CHELA CR Inactive MIRALAX POWD 17 gms in 4 oz water or juice daily MIRALAX POWD 491897 POLYETHYLENE GLYCOL 3350 Inactive CVS VITAMIN C 500 MG TABS 1 po daily CVS VITAMIN C 500 MG TABS 889049 ASCORBIC ACID Inactive COZAAR 100 MG TABS 1 qd COZAAR 100 MG TABS 848379 LOSARTAN POTASSIUM Inactive ALLOPURINOL 300 MG TABS 1 qd ALLOPURINOL 300 MG TABS 187891 ALLOPURINOL Inactive BUDEPRION SR 150 MG [id number] 1 bid BUDEPRION SR 150 MG [id number] BUPROPION HCL Inactive DILANTIN 100 MG CAPS 3 cap tid DILANTIN 100 MG CAPS 697346 PHENYTOIN SODIUM EXTENDED Inactive HYDROCODONE-ACETAMINOPHEN 7.5-325 MG TABS 1 q 6 hrs prn HYDROCODONE-ACETAMINOPHEN 7.5-325 MG TABS 364513 HYDROCODONE- ACETAMINOPHEN Inactive GABAPENTIN 300 MG CAPS 1 CAP PO TID GABAPENTIN 300 MG CAPS 013782 GABAPENTIN Inactive FENTANYL 25 MCG/HR PT72 Apply to clean skin and change every 72 hours. 07/03 FENTANYL 25 MCG/HR PT72 101140 FENTANYL Inactive Advance Directives Directive Description Start [...] 13 U/L alkaline phosphatase, serum 51 U/L alanine aminotransferase (SGPT), serum 23 U/L alkaline phosphatase, serum 40 U/L sodium, serum 139 mmol/L potassium, serum 4.8 mmol/L blood glucose 239 mg/dL creatinine, serum 1.17 mg/dL aspartate aminotransferase (SGOT), serum 14 U/L creatinine, serum 1.26 mg/dL blood glucose 190 mg/dL potassium, serum 4.1 mmol/L sodium, serum 139 mmol/L sodium, serum 144 mmol/L potassium, serum 4.6 [...] 4.3-6.0 Encounters Code Encounter Date Provider Facility CPT-27892 Level 3 Est. Patient 19:05:03 CDT Jonel Hemphill MD [facility] CPT-74543 Level 3 Est. Patient 17:30:47 CDT Kevin Link MD [facility] CPT-72165 Level 3 Est. Patient 18:04:07 CDT Jonel Hemphill MD [facility] CPT-77209 Level 3 Est. Patient 17:18:03 CDT Jonel Hemphill MD [facility] CPT-71432 Level 3 Est. Patient 21:58:03 CERTIFIED BENCH JEWELER TECHNICIAN Jonel Hemphill MD [facility] CPT-66586 Level 4 Est. Patient 18:03:14 CDT Jonel Hemphill MD [facility] CPT-68988 Level 4 Est. Patient 13:24:53 CDT Jonel Hemphill MD [facility]-01873 Level 4 Est. Patient 09:15:44 CDT Jonel Hemphill MD [facility]-97632 Level 4 Est. Patient 19:16:01 CDT Jonel Hemphill MD [facility]-43160 Level 4 Est. Patient 11:25:16 CDT Jonel Hemphill MD [facility] CPT-66189 Level 4 Est. Patient 09:00:40 CDT Jonel Hemphill MD [facility]-28331 Level 4 Est. Patient 14:53:58 CDT Jonel Hemphill MD [facility]-02799 Level 4 Est. Patient 22:59:01 CDT Jonel Hemphill MD [facility]-80025 Level 4 Est. Patient 09:29:57 CDT Jonel Hemphill MD [facility]-95470 Level 4 Est. Patient 12:35:53 CERTIFIED BENCH JEWELER TECHNICIAN Jonel Hemphill MD [facility]-11468 Level 4 Est. Patient 22:36:09 CERTIFIED BENCH JEWELER TECHNICIAN Jonel Hemphill MD [facility]-52156 Level 2 Est. Patient 15:14:15 CERTIFIED BENCH JEWELER TECHNICIAN Mayco Shah APRN [facility] CPT-92832 Level 4 Est. Patient 10:36:22 CERTIFIED BENCH JEWELER TECHNICIAN Jonel Hemphill MD [facility] CPT-47719 Level 4 Est. Patient 22:01:13 CERTIFIED BENCH JEWELER TECHNICIAN Jonel Hemphill MD [facility]-14335 Level 3 Est. Patient 21:50:37 CERTIFIED BENCH JEWELER TECHNICIAN Jonel Hemphill MD [facility] CPT-19333 Level 4 Est. Patient 15:02:43 CDT Rubin Pierre MD [facility] CPT-69282 Level 4 Est. Patient 14:27:35 CDT Jonel Hemphill MD [facility] CPT-87047 Level 4 Est. Patient 12:41:17 CDT Jonel Hemphill MD [facility] CPT-88157 Level 4 Est. Patient 16:18:55 CDT Jonel Hemphill MD [facility] CPT-69472 Level 4 Est. Patient 17:58:05 CDT Jonel Hemphill MD [facility] CPT-53881 Level 4 Est. Patient 22:10:06 CDT Jonel Hemphill MD [facility] CPT-68226 Level 4 Est. Patient 13:22:09 CDT Jonel Hemphill MD [facility]-11257 Level 4 Est. Patient 22:52:17 CERTIFIED BENCH JEWELER TECHNICIAN Jonel Hemphill MD [facility]-48610 Level 3 Est. Patient 22:34:10 CERTIFIED BENCH JEWELER TECHNICIAN Jonel Hemphill MD [facility]-05552 Level 4 Est. Patient 07:49:20 CERTIFIED BENCH JEWELER TECHNICIAN Jonel Hemphill MD [facility] Skilled CPT-26053 Level 3 Est. Patient 08:28:27 CERTIFIED BENCH JEWELER TECHNICIAN Jonel Hemphill MD [facility] Procedures Code Procedure Name Date Entry Date Standard Description CPT-02229 Level 3 Correction 17:42:11 CDT CPT-11315 Level 3 Correction 16:04:10 CDT CPT-64644 Level 3 Correction 19:38:15 CERTIFIED BENCH JEWELER TECHNICIAN CPT-98613 Level 3 Correction 19:28:48 CERTIFIED BENCH JEWELER TECHNICIAN CPT-62929 Level 3 Correction 18:02:20 CERTIFIED BENCH JEWELER TECHNICIAN CPT-32976 Level 3 Correction 15:02:14 CERTIFIED BENCH JEWELER TECHNICIAN CPT-15641 Level 3 Correction 12:25:37 CDT CPT-89426 Level 3 Correction 12:48:39 CDT CPT-42395 Level 3 Correction 17:39:14 CDT CPT-05353 Level 3 Correction 13:32:58 CDT CPT-57768 Level 3 Correction 17:43:43 CDT CPT-07416 Level 3 Correction 12:03:33 CERTIFIED BENCH JEWELER TECHNICIAN CPT-95523 Level 3 Correction 18:47:28 CERTIFIED BENCH JEWELER TECHNICIAN CPT-61797 Level 3 Correction 17:35:26 CERTIFIED BENCH JEWELER TECHNICIAN CPT-01676 Level 3 Correction 18:44:49 CERTIFIED BENCH JEWELER TECHNICIAN CPT-70097 Level 3 Correction 18:17:33 CDT CPT-98316 Level 3 Correction 09:25:33 CDT CPT-02880 Level 3 Correction 19:11:57 CDT CPT-73384 Level 3 Correction 09:25:52 CDT CPT-96376 Level 3 Correction 14:23:59 CDT CPT-78322 Level 3 Correction 12:09:43 CDT CPT-30631 Level 3 Correction 09:37:40 CDT CPT-08741 Level 3 Correction 18:23:02 CDT CPT-62490 Level 3 Correction 14:09:06 CDT CPT-53561 Level 3 Correction 12:43:27 CERTIFIED BENCH JEWELER TECHNICIAN CPT-46297 Postop F/U Visit 14:10:15 CERTIFIED BENCH JEWELER TECHNICIAN CPT-95238 [facility] 17:07:14 CERTIFIED BENCH JEWELER TECHNICIAN CPT-04971 Level 3 Correction 16:14:37 CERTIFIED BENCH JEWELER TECHNICIAN CPT-39332 Port a cath flush 11:47:42 CDT CPT-89839 Port a cath flush 08:29:49 CDT CPT-OV Office Visit 14:27:58 CERTIFIED BENCH JEWELER TECHNICIAN
--- OUTSIDE RECORDS SUMMARY | 2016-08-07 11:52 | XMS REPORT | Clinical Summary ---
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 FEBUXOSTAT 85116420234 Active Marleni Romero Active HYDROCODONE-ACETAMINOPHEN 7.5-325 MG TABS 1 TAB PO Q 6 HRS PRN HYDROCODONE-ACETAMINOPHEN 69647471162 Active Jonel Hemphill MD Active METFORMIN HCL 1000 MG TABS 1 tablet by mouth twice daily METFORMIN HCL 93613522842 Active Marleni Romero Active FENTANYL 12 MCG/HR PT72 Apply to clean, dry skin and change every 72 hours FENTANYL 94807090664 Active Mattie Gates APRN Active KLOR-CON 20 MEQ ORAL PACK 1 BY MOUTH DAILY POTASSIUM CHLORIDE 59219592582 Active Marleni Romero Active A+D FIRST AID EXT OINT APPLY OINTMENT AND RUFINO WRAPS TO LOWER EXTEREMETIES DAILY SKIN PROTECTANTS, MISC. 55814066166 Active Jonel Hemphill MD Active NYSTATIN 044675 UNIT/GM EXT OINT APPLY PRN TID TO GAULDING/RASH IN ABDOMINAL FOLDS NYSTATIN 11575811297 Active Jonel Hemphill MD Active ATIVAN 0.5 MG TABS Take 1 tablet 2x daily PRN LORAZEPAM 39357232013 Active Jonel Hemphill MD Active GABAPENTIN 400 MG ORAL CAPS 1 TAB BY MOUTH THREE TIMES DAILY GABAPENTIN 02298551086 Active Jonel Hemphill MD Active GABAPENTIN 300 MG CAPS 1 CAP PO TID GABAPENTIN 34143576943 No Longer Active Jonel Hemphill MD Active DILANTIN 100 MG ORAL CAPS 1 THREE TIMES DAILY FOR SEIZURES PHENYTOIN SODIUM EXTENDED 30004003558 Active Marleni Romero Active CPAP APPLY AT HS CPAP Active Jonel Hemphill MD Active METOPROLOL TARTRATE 50 MG ORAL TABS 1 TAB BY MOUTH TWICE DAILY METOPROLOL TARTRATE 96768420288 Active Jonel Hemphill MD Active LISINOPRIL 40 MG TABS 1 tablet by mouth twice daily, for blood pressure 03/31 LISINOPRIL 06557508123 Active Jonel Hemphill MD Active BUPROPION HCL ER (SR) 150 MG [id number] 1 twice a day for depression BUPROPION HCL 77544688267 Active Jonel Hemphill MD Active MULTIVITAMINS CAPS 1 DAILY MULTIPLE VITAMIN 67570251323 Active Jonel Hemphill MD Active ZYLOPRIM 300 MG TAB 1 BY MOUTH DAILY ALLOPURINOL 04165246633 Active Jonel Hemphill MD Active HYDROCODONE-ACETAMINOPHEN 7.5-325 MG TABS 1 q 6 hrs prn HYDROCODONE-ACETAMINOPHEN 40439447762 No Longer Active Jonel Hemphill MD Active DILANTIN 100 MG CAPS 3 cap tid PHENYTOIN SODIUM EXTENDED 62999560639 No Longer Active Jonel Hemphill MD Active BUDEPRION SR 150 MG [id number] 1 bid BUPROPION HCL 84742500290 No Longer Active Jonel Hemphill MD Active ALLOPURINOL 300 MG TABS 1 qd ALLOPURINOL 73526749238 No Longer Active Jonel Hemphill MD Active COZAAR 100 MG TABS 1 qd LOSARTAN POTASSIUM 20287153069 No Longer Active Jonel Hemphill MD Active CVS VITAMIN C 500 MG TABS 1 po daily ASCORBIC ACID 52664939603 No Longer Active Jonel Hemphill MD Active MIRALAX POWD 17 gms in 4 oz water or juice daily POLYETHYLENE GLYCOL 3350 67478453708 No Longer Active Jonel Hemphill MD Active POTASSIUM CHLORIDE CHELA ER 20 MEQ CR-TABS 1 tab PO daily POTASSIUM CHLORIDE CHELA CR 02535003648 No Longer Active Jonel Hemphill MD Active AMBIEN 10 MG TAB 1 tab by mouth at bedtime as needed for sleep ZOLPIDEM TARTRATE 70021805132 No Longer Active Jonel Hemphill MD Active SULFAMETHOXAZOLE-TMP DS 800-160 MG TABS 1 TAB PO BID SULFAMETHOXAZOLE-TRIMETHOPRIM 83480763464 No Longer Active Jonel Hemphill MD Active NORCO 5-325 MG TABS 1-2 TAB Q 6 HRS PRN HYDROCODONE- ACETAMINOPHEN 33534935774 Active Jonel Hemphill MD Active LEVEMIR 100 UNIT/ML SOLN 5 units sub-q at bedtime INSULIN DETEMIR 97277299813 No Longer Active Tova Perez Active MOBIC 15 MG TABS 1 tab PO daily for arthritis pain MELOXICAM 21860404323 No Longer Active Tova Perez Active GLUCAGEN 1 MG SOLR INJECT 1MG IM IF BS LESS THAN 60 & RES. IS UNABLE TO SWALLOW GLUCAGON HCL (RDNA) 62458897844 No Longer Active Tova Perez Active CVS MILK OF MAGNESIA 1200 MG/15ML SUSP 30 ml daily for constipation MAGNESIUM HYDROXIDE 40260335043 No Longer Active Tova Perez Active IMDUR 120 MG [id number] 1 qd ISOSORBIDE MONONITRATE 05744303393 No Longer Active Tova Chris Active PHENYTOIN 50 MG CHEW 1 TAB PO BID PHENYTOIN 14182481436 Active Tova Chris Active MECLIZINE HCL 25 MG CHEW TAB 1 four times a day as needed for dizziness 02/21 MECLIZINE HCL 47561585040 Active Tova Chris Active NEURONTIN 400 MG CAPS Take one by mouth 3 times daily, morning, afternoon and evening.] GABAPENTIN 52862136024 No Longer Active Tova Perez Active ANTIVERT 25 MG TABS 1 q 6 hrs prn MECLIZINE HCL 05597731308 No Longer Active Jonel Hemphill MD Active CLONIDINE HCL 0.2 MG TABS 1 q 8 hrs as needed -greater than 160-htn CLONIDINE HCL 99621132491 No Longer Active Jonel Hemphill MD Active AMBIEN 10 MG TABS 1 q hs prn ZOLPIDEM TARTRATE 17781736873 No Longer Active Jonel Hemphill MD Active GNP THERAPEUTIC-M TABS 1 qd MULTIPLE VITAMINS- MINERALS 60184794635 No Longer Active Jonel Hemphill MD Active METOPROLOL TARTRATE 50 MG TABS 1 bid METOPROLOL TARTRATE 72713268129 No Longer Active Jonel Hemphill MD Active METFORMIN HCL 500 MG TABS 1 bod with food METFORMIN HCL 90346726085 No Longer Active Jonel Hemphill MD Active LISINOPRIL 40 MG TABS 1 qd LISINOPRIL 40389090906 No Longer Active Jonel Hemphill MD Active HYDROCHLOROTHIAZIDE 25 MG TABS 1 qd HYDROCHLOROTHIAZIDE 39069298495 No Longer Active Jonel Hemphill MD Active DURAGESIC-25 25 MCG/HR PT72 place 1 patch on the skin q72hrs for pain FENTANYL 93569900736 No Longer Active Jonel Hemphill MD Active FENTANYL 75 MCG/HR PT72 place 1 patch on skin q72hrs fr pain 2012 FENTANYL 31188397595 No Longer Active Jonel Hemphill MD Active LASIX 20 MG TABS 1 tab PO q morning FUROSEMIDE 01764231767 Active Jonel Hemphill MD Active FUROSEMIDE 40 MG TABS 1 q am FUROSEMIDE 75367967373 No Longer Active Jonel Hemphill MD Active HEPARIN (PORCINE) LOCK FLUSH 100 UNIT/ML SOLN Flush port a cath monthly every three week on with Heparin and NS HEPARIN LOCK FLUSH 10863015855 Active Jonel Hemphill MD Active FENTANYL 100 MCG/HR PT72 Apply every 3 days FENTANYL 22956770417 Active Mattie Gates APRN Active FENTANYL 25 MCG/HR PT72 Apply to clean skin and change every 72 hours. 07/03 FENTANYL 63939198989 No Longer Active Jonel Hemphill MD Active FENTANYL 50 MCG/HR PT72 place 1 patch on skin q72 hours FENTANYL 78914963836 No Longer Active Mayco Shah APRN Active CELEXA 20 MG TABS Take 1 tablet 1x daily CITALOPRAM HYDROBROMIDE 63151286255 Active Jonel Hemphill MD Active DURAGESIC-12 12 MCG/HR PT72 APPLY PATCH TO SKIN AND CHANGE EVERY 72 HOURS, ROTATE SITES FENTANYL 72878143330 No Longer Active Fozia Amador RMA Active FUROSEMIDE 20 MG TABS 1 qd FUROSEMIDE 49858471458 No Longer Active Mahogany [place] Active ADULT ASPIRIN EC LOW STRENGTH 81 MG TBEC 1 qd ASPIRIN 33731349391 Active MARY Perez Active FUROSEMIDE 20 MG TABS 1 qd FUROSEMIDE 20 MG TABS 838613 FUROSEMIDE Inactive DURAGESIC-12 12 MCG/HR PT72 APPLY PATCH TO SKIN AND CHANGE EVERY 72 HOURS, ROTATE SITES DURAGESIC-12 12 MCG/HR PT72 926618 FENTANYL Inactive FENTANYL 50 MCG/HR PT72 place 1 patch on skin q72 hours FENTANYL 50 MCG/HR PT72 671880 FENTANYL Inactive FUROSEMIDE 40 MG TABS 1 q am FUROSEMIDE 40 MG TABS 340785 FUROSEMIDE Inactive FENTANYL 75 MCG/HR PT72 place 1 patch on skin q72hrs fr pain 2012 FENTANYL 75 MCG/HR PT72 751637 FENTANYL Inactive DURAGESIC-25 25 MCG/HR PT72 place 1 patch on the skin q72hrs for pain DURAGESIC-25 25 MCG/HR PT72 635000 FENTANYL Inactive HYDROCHLOROTHIAZIDE 25 MG TABS 1 qd HYDROCHLOROTHIAZIDE 25 MG TABS 464663 HYDROCHLOROTHIAZIDE Inactive LISINOPRIL 40 MG TABS 1 qd LISINOPRIL 40 MG TABS 115696 LISINOPRIL Inactive METFORMIN HCL 500 MG TABS 1 bod with food METFORMIN HCL 500 MG TABS 333309 METFORMIN HCL Inactive METOPROLOL TARTRATE 50 MG TABS 1 bid METOPROLOL TARTRATE 50 MG TABS 662594 METOPROLOL TARTRATE Inactive GNP THERAPEUTIC-M TABS 1 qd GNP THERAPEUTIC-M TABS MULTIPLE VITAMINS-MINERALS Inactive AMBIEN 10 MG TABS 1 q hs prn AMBIEN 10 MG TABS 446947 ZOLPIDEM TARTRATE Inactive CLONIDINE HCL 0.2 MG TABS 1 q 8 hrs as needed -greater than 160-htn CLONIDINE HCL 0.2 MG TABS 638937 CLONIDINE HCL Inactive ANTIVERT 25 MG TABS 1 q 6 hrs prn ANTIVERT 25 MG TABS MECLIZINE HCL Inactive NEURONTIN 400 MG CAPS Take one by mouth 3 times daily, morning, afternoon and evening.] NEURONTIN 400 MG CAPS 330226 GABAPENTIN Inactive IMDUR 120 MG [id number] 1 qd IMDUR 120 MG [id number] ISOSORBIDE MONONITRATE Inactive CVS MILK OF MAGNESIA [...] for arthritis pain MOBIC 15 MG TABS 000340 MELOXICAM Inactive LEVEMIR 100 UNIT/ML SOLN 5 units sub-q at bedtime LEVEMIR 100 UNIT/ML SOLN INSULIN DETEMIR Inactive SULFAMETHOXAZOLE-TMP DS 800-160 MG TABS 1 TAB PO BID SULFAMETHOXAZOLE-TMP DS 800-160 MG TABS 636345 SULFAMETHOXAZOLE-TRIMETHOPRIM Inactive AMBIEN 10 MG TAB 1 tab by mouth at bedtime as needed for sleep AMBIEN 10 MG TAB 091508 ZOLPIDEM TARTRATE Inactive POTASSIUM CHLORIDE CHELA ER 20 MEQ CR-TABS 1 tab PO daily POTASSIUM CHLORIDE CHELA ER 20 MEQ CR-TABS POTASSIUM CHLORIDE CHELA CR Inactive MIRALAX POWD 17 gms in 4 oz water or juice daily MIRALAX POWD 511229 POLYETHYLENE GLYCOL 3350 Inactive CVS VITAMIN C 500 MG TABS 1 po daily CVS VITAMIN C 500 MG TABS 031967 ASCORBIC ACID Inactive COZAAR 100 MG TABS 1 qd COZAAR 100 MG TABS 431341 LOSARTAN POTASSIUM Inactive ALLOPURINOL 300 MG TABS 1 qd ALLOPURINOL 300 MG TABS 530110 ALLOPURINOL Inactive BUDEPRION SR 150 MG [id number] 1 bid BUDEPRION SR 150 MG [id number] BUPROPION HCL Inactive DILANTIN 100 MG CAPS 3 cap tid DILANTIN 100 MG CAPS 387915 PHENYTOIN SODIUM EXTENDED Inactive HYDROCODONE-ACETAMINOPHEN 7.5-325 MG TABS 1 q 6 hrs prn HYDROCODONE-ACETAMINOPHEN 7.5-325 MG TABS 709036 HYDROCODONE- ACETAMINOPHEN Inactive GABAPENTIN 300 MG CAPS 1 CAP PO TID GABAPENTIN 300 MG CAPS 659582 GABAPENTIN Inactive FENTANYL 25 MCG/HR PT72 Apply to clean skin and change every 72 hours. 07/03 FENTANYL 25 MCG/HR PT72 558743 FENTANYL Inactive Advance Directives Directive Description Start [...] 4.3-6.0 Encounters Code Encounter Date Provider Facility CPT-16795 Level 3 Est. Patient 19:05:03 CDT Jonel Hemphill MD [facility] CPT-73627 Level 3 Est. Patient 17:30:47 CDT Kevin Link MD [facility] CPT-67152 Level 3 Est. Patient 18:04:07 CDT Jonel Hemphill MD [facility] CPT-38681 Level 3 Est. Patient 17:18:03 CDT Jonel Hemphill MD [facility] CPT-59878 Level 3 Est. Patient 21:58:03 SNUFF DRIER Jonel Hemphill MD [facility] CPT-41659 Level 4 Est. Patient 18:03:14 CDT Jonel Hemphill MD [facility]-72276 Level 4 Est. Patient 13:24:53 CDT Jonel Hemphill MD [facility]-46676 Level 4 Est. Patient 09:15:44 CDT Jonel Hemphill MD [facility]-22782 Level 4 Est. Patient 19:16:01 CDT Jonel Hemphill MD [facility]-36421 Level 4 Est. Patient 11:25:16 CDT Jonel Hemphill MD [facility]-28502 Level 4 Est. Patient 09:00:40 CDT Jonel Hemphill MD [facility]-69321 Level 4 Est. Patient 14:53:58 CDT Jonel Hemphill MD [facility]-55355 Level 4 Est. Patient 22:59:01 CDT Jonel Hemphill MD [facility]-59141 Level 4 Est. Patient 09:29:57 CDT Jonel Hemphill MD [facility]-71420 Level 4 Est. Patient 12:35:53 SNUFF DRIER Jonel Hemphill MD [facility]-00638 Level 4 Est. Patient 22:36:09 SNUFF DRIER Jonel Hemphill MD [facility]-00861 Level 2 Est. Patient 15:14:15 SNUFF DRIER Mayco Shah APRN [facility]-87849 Level 4 Est. Patient 10:36:22 SNUFF DRIER Jonel Hemphill MD [facility]-88500 Level 4 Est. Patient 22:01:13 SNUFF DRIER Jonel Hemphill MD [facility]-84586 Level 3 Est. Patient 21:50:37 SNUFF DRIER Jonel Hemphill MD [facility] CPT-74186 Level 4 Est. Patient 15:02:43 CDT Rubin Pierre MD [facility] CPT-26563 Level 4 Est. Patient 14:27:35 CDT Jonel Hemphill MD [facility]-76531 Level 4 Est. Patient 12:41:17 CDT Jonel Hemphill MD [facility]-81211 Level 4 Est. Patient 16:18:55 CDT Jonel Hemphill MD [facility]-82423 Level 4 Est. Patient 17:58:05 CDT Jonel Hemphill MD [facility]-05250 Level 4 Est. Patient 22:10:06 CDT Jonel Hemphill MD [facility] CPT-01859 Level 4 Est. Patient 13:22:09 CDT Jonel Hemphill MD [facility] CPT-05969 Level 4 Est. Patient 22:52:17 SNUFF DRIER Jonel Hemphill MD [facility]-84338 Level 3 Est. Patient 22:34:10 SNUFF DRIER Jonel Hemphill MD [facility] CPT-79893 Level 4 Est. Patient 07:49:20 SNUFF DRIER Jonel Hemphill MD [facility] Skilled CPT-52280 Level 3 Est. Patient 08:28:27 SNUFF DRIER Jonel Hemphill MD [facility] Procedures Code Procedure Name Date Entry Date Standard Description CPT-18658 Level 3 Fdc 17:42:11 CDT CPT-72941 Level 3 Fdc 16:04:10 CDT CPT-18891 Level 3 Fdc 19:38:15 SNUFF DRIER CPT-80718 Level 3 Fdc 19:28:48 SNUFF DRIER CPT-35423 Level 3 Fdc 18:02:20 SNUFF DRIER CPT-87267 Level 3 Fdc 15:02:14 SNUFF DRIER CPT-75672 Level 3 Fdc 12:25:37 CDT CPT-55425 Level 3 Fdc 12:48:39 CDT CPT-04544 Level 3 Fdc 17:39:14 CDT CPT-93424 Level 3 Fdc 13:32:58 CDT CPT-75467 Level 3 Fdc 17:43:43 CDT CPT-61480 Level 3 Fdc 12:03:33 SNUFF DRIER CPT-99603 Level 3 Fdc 18:47:28 SNUFF DRIER CPT-18597 Level 3 Fdc 17:35:26 SNUFF DRIER CPT-98178 Level 3 Fdc 18:44:49 SNUFF DRIER CPT-03619 Level 3 Fdc 18:17:33 CDT CPT-24447 Level 3 Fdc 09:25:33 CDT CPT-92291 Level 3 Fdc 19:11:57 CDT CPT-72514 Level 3 Fdc 09:25:52 CDT CPT-57072 Level 3 Fdc 14:23:59 CDT CPT-01136 Level 3 Fdc 12:09:43 CDT CPT-04968 Level 3 Fdc 09:37:40 CDT CPT-30590 Level 3 Fdc 18:23:02 CDT CPT-48409 Level 3 Fdc 14:09:06 CDT CPT-22232 Level 3 Fdc 12:43:27 SNUFF DRIER CPT-88639 Postop F/U Visit 14:10:15 SNUFF DRIER CPT-89973 [facility] 17:07:14 SNUFF DRIER CPT-36313 Level 3 Fdc 16:14:37 SNUFF DRIER CPT-20167 Port a cath flush 11:47:42 CDT CPT-68108 Port a cath flush 08:29:49 CDT CPT-OV Office Visit 14:27:58 SNUFF DRIER
--- OUTSIDE RECORDS SUMMARY | 2016-08-07 11:52 | XMS REPORT ---
Author Author [facility] Staff Organization [facility] [employer] [facility] Address [address], [place] [address] Phone [phone] Summary purpose TRANSITION OF CARE AUTO GENERATION [...] diagnostic tests and/or laboratory data RESULTS Chemistry [id number]:41:00 Result Normal Range Units Sodium L 133 134-145 mEq/l Potassium H 5.9 3.5-5.1 mEq/l SLIGHTLY HEMOLYZED. Chloride 99 98-107 mEq/l CO2 24.0 22-28 mEq/l Glucose H 107 70-105 mg/dl BUN H 33 7-18 mg/dl Creatinine H 1.65 0.6-1.3 mg/dl Calcium 9.4 8.4-10.2 mg/dl Osmolality L 274.1 280-300 mOsm/L Anion GAP 10.0 8-16 BUN/Creatinine Ratio 20.0 10-20 BNP- Brain Natriuretic Peptide 20 0-900 pg/ml Estimated GFR L 44 >=60 mL/min/1.7 History of procedures Procedure Code Code Type Description Date Performed Performing Physician 51512 CPT-4 NATRIURETIC PEPTIDE 06-02-2015 FRANKO PRIETO 92922 CPT-4 METABOLIC PANEL TOTAL CA 06-02-2015 FRANKO PRIETO Functional status No functional or [...]
--- OUTSIDE RECORDS SUMMARY | 2016-08-07 11:54 | XMS REPORT ---
Author Author [facility] [employer] Medical Staff Organization [employer] [facility] Address [address], [place] [address] Phone [phone] Care Team Providers Care Rn Faculty Name Role Phone FRANKO PRIETO MD PP [phone] Summary purpose TRANSITION OF CARE AUTO GENERATION [...] diagnostic tests and/or laboratory data RESULTS Chemistry [id number]:30:00 Result Normal Range Units Sodium 139 134-145 mEq/l Potassium 4.8 3.5-5.1 mEq/l Chloride 101 98-107 mEq/l CO2 27.6 22-28 mEq/l Glucose H 239 70-105 mg/dl BUN H 19 7-18 mg/dl Creatinine 1.17 0.6-1.3 mg/dl Calcium 9.0 8.4-10.2 mg/dl Osmolality 287.6 280-300 mOsm/L Anion GAP 10.4 8-16 BUN/Creatinine Ratio 16.2 10-20 Estimated GFR 65 >=60 mL/min/1.7 History of procedures Procedure Code Code Type Description Date Performed Performing Physician [id number] CPT-4 METABOLIC PANEL TOTAL CA 08-03-2015 FRANKO PRIETO Functional status No functional or [...]
--- OUTSIDE RECORDS SUMMARY | 2016-08-07 11:54 | XMS REPORT ---
Author Author [facility] Medical Staff Organization [facility] Address [address], [place] [address] Phone [phone] Summary purpose TRANSITION OF CARE AUTO GENERATION [...]
--- OUTSIDE RECORDS SUMMARY | 2016-08-07 11:54 | XMS REPORT | Clinical Summary ---
Author Author Admin, [email or web address] Organization [facility] Address Unknown Phone Allergies, Adverse Reactions, Alerts Allergy Name Reaction Description Start Date Severity Status Provider PENICILLIN Critical Active Holstein [place] Conditions or Problems Problem Name Problem Code Onset Date Status Entry Date Provider Comment Standard Description Annotate DIABETES MELLITUS, TYPE II, CONTROLLED 250.00 Active Jonel Hemphill MD Diabetes mellitus without mention of complication, type II or unspecified type, not stated as uncontrolled MORBID OBESITY 278.01 Active Jonel Hemphill MD Morbid obesity HYPERTENSION 401.1 Active Jonel Hemphill MD Benign essential hypertension 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 USE, MCFP V58.69 Resolved Jonel Hemphill MD Long-term (current) use of other medications C V A / STROKE 436 Active Holstein Tisha Acute, but ill- defined, cerebrovascular disease C O P D 496 Active Holstein [place] Chronic airway obstruction, not elsewhere classified DIABETES, TYPE 2 250.00 Resolved Jonel Hemphill MD Diabetes mellitus without mention of complication, type II or unspecified type, not stated as uncontrolled SEIZURE DISORDER 780.39 Active Holstein [place] Other convulsions CORONARY HEART DISEASE 414.00 Resolved Jonel Hemphill MD Coronary atherosclerosis of unspecified type of vessel, [place] or graft FH DIABETES V18.0 Resolved Jonel [...] Coronary atherosclerosis of unspecified type of vessel, [place] or graft CONSTIPATION 564.00 Resolved Jonel Hemphill [...] MD Dermatophytosis of the body 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 USE, MCFP ICD-V58.69 Inactive Jonel Hemphill MD DIABETES, TYPE 2 ICD-250.00 Inactive Jonel Hemphill MD CORONARY HEART DISEASE ICD-414.00 Inactive Jonel Hemphill MD DIABETES ICD-V18.0 Inactive Jonel Hemphill MD FH STROKE ICD-V17.1 Inactive Jonel Hemphlil MD FAMILY HISTORY COLON CANCER-MOTHER ICD-V16.0 Inactive [...] TAB Q 6 HRS PRN HYDROCODONE- ACETAMINOPHEN 64734997661 Active Jonel Hemphill MD Active LEVEMIR 100 UNIT/ML SOLN 5 units sub-q at bedtime INSULIN DETEMIR 23342860653 No Longer Active Tova Perez Active MOBIC 15 MG TABS 1 tab PO daily for arthritis pain MELOXICAM 64539101038 No Longer Active Tova Perez Active GLUCAGEN 1 MG SOLR INJECT 1MG IM IF BS LESS THAN 60 & RES. IS UNABLE TO SWALLOW GLUCAGON HCL (RDNA) 51479053912 No Longer Active Tova Perez Active [facility] MILK OF MAGNESIA 1200 MG/15ML SUSP 30 ml daily for constipation MAGNESIUM HYDROXIDE 80268341111 No Longer Active Tova Perez Active IMDUR 120 MG LL56P-NLN 1 qd ISOSORBIDE MONONITRATE 43431456794 No Longer Active Tova Perez Active METFORMIN HCL 500 MG TABS 1 tablet by mouth twice daily METFORMIN HCL 02160763868 Active Tova Perez Active SULFAMETHOXAZOLE-TMP DS 800-160 MG TABS 1 TAB PO BID SULFAMETHOXAZOLE-TRIMETHOPRIM 55737853880 Active Tova Perez Active PHENYTOIN 50 MG CHEW 1 TAB PO BID PHENYTOIN 91994121763 Active Tova Perez Active MECLIZINE HCL 25 MG CHEW TAB 1 four times a day as needed for dizziness 02/21 MECLIZINE HCL 77048016726 Active Tova Perez Active GABAPENTIN 300 MG CAPS 1 CAP PO TID GABAPENTIN 75368097165 Active Tova Perez Active NEURONTIN 400 MG CAPS Take one by mouth 3 times daily, morning, afternoon and evening.] GABAPENTIN 51007376474 No Longer Active Tova Perez Active AMBIEN 10 MG TAB 1 tab by mouth at bedtime as needed for sleep ZOLPIDEM TARTRATE 13130722257 Active Jonel Hemphill MD Active POTASSIUM CHLORIDE CHELA ER 20 MEQ CR-TABS 1 tab PO daily POTASSIUM CHLORIDE CHELA CR 81626674511 Active Jonel Hemphill MD Active ANTIVERT 25 MG TABS 1 q 6 hrs prn MECLIZINE HCL 22552324584 No Longer Active Jonel Hemphill MD Active CLONIDINE HCL 0.2 MG TABS 1 q 8 hrs as needed -greater than 160-htn CLONIDINE HCL 31811442444 No Longer Active Jonel Hemphill MD Active AMBIEN 10 MG TABS 1 q hs prn ZOLPIDEM TARTRATE 02786333724 No Longer Active Jonel Hemphill MD Active GNP THERAPEUTIC-M TABS 1 qd MULTIPLE VITAMINS- MINERALS 18379668041 No Longer Active Jonel Hemphill MD Active METOPROLOL TARTRATE 50 MG TABS 1 bid METOPROLOL TARTRATE 50536476031 No Longer Active Jonel Hemphill MD Active METFORMIN HCL 500 MG TABS 1 bod with food METFORMIN HCL 36977825848 No Longer Active Jonel Hemphill MD Active LISINOPRIL 40 MG TABS 1 qd LISINOPRIL 21983766300 No Longer Active Jonel Hemphill MD Active HYDROCHLOROTHIAZIDE 25 MG TABS 1 qd HYDROCHLOROTHIAZIDE 67628346867 No Longer Active Jonel Hemphill MD Active DURAGESIC-25 25 MCG/HR PT72 place 1 patch on the skin q72hrs for pain FENTANYL 22380399667 No Longer Active Jonel Hemphill MD Active FENTANYL 75 MCG/HR PT72 place 1 patch on skin q72hrs fr pain 2012 FENTANYL 62321141355 No Longer Active Jonel Hemphill MD Active LASIX 20 MG TABS 1 tab PO q morning FUROSEMIDE 48320806962 Active Jonel Hemphill MD Active FUROSEMIDE 40 MG TABS 1 q am FUROSEMIDE 79012599568 No Longer Active Jonel Hemphill MD Active HEPARIN (PORCINE) LOCK FLUSH 100 UNIT/ML SOLN Flush port a cath monthly every three week on with Heparin and NS HEPARIN LOCK FLUSH 40908703730 Active Jonel Hemphill MD Active FENTANYL 100 MCG/HR PT72 Apply every 3 days FENTANYL 48397758050 Active Jonel Hemphill MD Active FENTANYL 25 MCG/HR PT72 Apply to clean skin and change every 72 hours. 07/03 FENTANYL 94021116041 No Longer Active Jonel Hemphill MD Active FENTANYL 50 MCG/HR PT72 place 1 patch on skin q72 hours FENTANYL 55102094011 No Longer Active Mayco Shah APRN Active HYDROCODONE-ACETAMINOPHEN 7.5-325 MG TABS 1 q 6 hrs prn HYDROCODONE-ACETAMINOPHEN 15971606387 Active Jonel Hemphill MD Active ATIVAN 0.5 MG TABS Take 1 tablet 2x daily LORAZEPAM 65896067141 Active Jonel Hemphill MD Active CELEXA 20 MG TABS Take 1 tablet 1x daily CITALOPRAM HYDROBROMIDE 15877700031 Active Jonel Hemphill MD Active MIRALAX POWD 17 gms in 4 oz water or juice daily POLYETHYLENE GLYCOL 3350 00535977339 Active Rubin Pierre MD Active DURAGESIC-12 12 MCG/HR PT72 APPLY PATCH TO SKIN AND CHANGE EVERY 72 HOURS, ROTATE SITES FENTANYL 26409400714 No Longer Active Fozia YANGA Active [facility] VITAMIN C 500 MG TABS 1 po daily ASCORBIC ACID 07763398260 Active Mahogany [place] Active FUROSEMIDE 20 MG TABS 1 qd FUROSEMIDE 68047585830 No Longer Active Mahogany [place] Active ADULT ASPIRIN EC LOW STRENGTH 81 MG TBEC 1 qd ASPIRIN 68013307055 Active Gregor Tisha Active DILANTIN 100 MG CAPS 3 cap tid PHENYTOIN SODIUM EXTENDED 28956241172 Active Gregor [place] Active BUDEPRION SR 150 MG CA92Z-GDE 1 bid BUPROPION HCL 53474005307 Active Gregor Tisha Active ALLOPURINOL 300 MG TABS 1 qd ALLOPURINOL 92391748360 Active Holstein Tisha Active COZAAR 100 MG TABS 1 qd LOSARTAN POTASSIUM 84479237885 Active Gregor Tisha Active FUROSEMIDE 20 MG TABS 1 qd FUROSEMIDE 20 MG TABS 568318 FUROSEMIDE Inactive DURAGESIC-12 12 MCG/HR PT72 APPLY PATCH TO SKIN AND CHANGE EVERY 72 HOURS, ROTATE SITES DURAGESIC-12 12 MCG/HR PT72 927060 FENTANYL Inactive FENTANYL 50 MCG/HR PT72 place 1 patch on skin q72 hours FENTANYL 50 MCG/HR PT72 900870 FENTANYL Inactive FUROSEMIDE 40 MG TABS 1 q am FUROSEMIDE 40 MG TABS 114134 FUROSEMIDE Inactive FENTANYL 75 MCG/HR PT72 place 1 patch on skin q72hrs fr pain 2012 FENTANYL 75 MCG/HR PT72 361953 FENTANYL Inactive DURAGESIC-25 25 MCG/HR PT72 place 1 patch on the skin q72hrs for pain DURAGESIC-25 25 MCG/HR PT72 349968 FENTANYL Inactive HYDROCHLOROTHIAZIDE 25 MG TABS 1 qd HYDROCHLOROTHIAZIDE 25 MG TABS 320244 HYDROCHLOROTHIAZIDE Inactive LISINOPRIL 40 MG TABS 1 qd LISINOPRIL 40 MG TABS 405991 LISINOPRIL Inactive METFORMIN HCL 500 MG TABS 1 bod with food METFORMIN HCL 500 MG TABS 020619 METFORMIN HCL Inactive METOPROLOL TARTRATE 50 MG TABS 1 bid METOPROLOL TARTRATE 50 MG TABS 805000 METOPROLOL TARTRATE Inactive GNP THERAPEUTIC-M TABS 1 qd GNP THERAPEUTIC-M TABS MULTIPLE VITAMINS-MINERALS Inactive AMBIEN 10 MG TABS 1 q hs prn AMBIEN 10 MG TABS 259276 ZOLPIDEM TARTRATE Inactive CLONIDINE HCL 0.2 MG TABS 1 q 8 hrs as needed -greater than 160-htn CLONIDINE HCL 0.2 MG TABS 830142 CLONIDINE HCL Inactive ANTIVERT 25 MG TABS 1 q 6 hrs prn ANTIVERT 25 MG TABS MECLIZINE HCL Inactive NEURONTIN 400 MG CAPS Take one by mouth 3 times daily, morning, afternoon and evening.] NEURONTIN 400 MG CAPS 651638 GABAPENTIN Inactive IMDUR 120 MG CE49A-EIY 1 qd IMDUR 120 MG SO39Z-KPM ISOSORBIDE MONONITRATE Inactive [facility] MILK OF MAGNESIA [...] for arthritis pain MOBIC 15 MG TABS 167771 MELOXICAM Inactive LEVEMIR 100 UNIT/ML SOLN 5 units sub-q at bedtime LEVEMIR 100 UNIT/ML SOLN INSULIN DETEMIR Inactive FENTANYL 25 MCG/HR PT72 Apply to clean skin and change every 72 hours. 07/03 FENTANYL 25 MCG/HR PT72 164057 FENTANYL Inactive Advance Directives Directive Description Start [...] Panel - Chemistry sodium, serum 137 mmol/L 307-233 6006/06/14 potassium, serum 7.1 mmol/L 3.5-5.2 chloride, serum 107 mmol/L 98-107 carbon dioxide, venous blood 18.7 mmol/L 21.0-32.0 blood glucose 153 mg/dL 65-110 calcium, serum 8.8 mg/dL 8.5-10.1 urea nitrogen, blood 82 mg/dL 7-18 creatinine, serum 2.50 mg/dL 0.60-1.30 sodium, serum 140 mmol/L 481-878 5832/05/31 potassium, serum 5.5 mmol/L 3.5-5.2 chloride, serum 108 mmol/L 98-107 carbon dioxide, venous blood 22.8 mmol/L 21.0-32.0 blood glucose 88 mg/dL 65-110 calcium, serum 9.1 mg/dL 8.5-10.1 urea nitrogen, blood 47 mg/dL 7-18 creatinine, serum 1.70 mg/dL 0.60-1.30 sodium, serum 137 mmol/L 419-707 2194/06/05 potassium, serum 6.5 mmol/L 3.5-5.2 chloride, serum 105 mmol/L 98-107 carbon dioxide, venous blood 22.0 mmol/L 21.0-32.0 blood glucose 132 mg/dL 65-110 calcium, serum 8.7 mg/dL 8.5-10.1 urea nitrogen, blood 71 mg/dL 7-18 creatinine, serum 2.10 mg/dL 0.60-1.30 sodium, serum 141 mmol/L 886-666 6700/07/01 potassium, serum 3.4 mmol/L 3.5-5.2 chloride, serum [...] Negative mg/dL Negative sodium, serum 142 mmol/L 827-398 4687/07/15 potassium, serum 3.9 mmol/L 3.5-5.2 chloride, serum [...] Acid - Chemistry sodium, serum 141 mmol/L 340-424 6776/05/09 potassium, serum 3.9 mmol/L 3.5-5.2 chloride, serum [...] AUTO - Chemistry sodium, serum 140 mmol/L 500-765 6233/02/18 potassium, serum 3.8 mmol/L 3.5-5.2 chloride, serum [...] Acid - Chemistry sodium, serum 141 mmol/L 104-427 3158/06/11 potassium, serum 5.9 mmol/L 3.5-5.2 chloride, serum [...] 10.0-20.0 Encounters Code Encounter Date Provider Facility CPT-05017 Level 3 Est. Patient 17:18:03 CDT Jonel Hemphill MD [facility] CPT-23110 Level 3 Est. Patient 21:58:03 WIRELESS MANAGER Jonel Hemphill MD [facility] CPT-28834 Level 4 Est. Patient 18:03:14 CDT Jonel Yeager [facility]-63372 Level 4 Est. Patient 13:24:53 CDT Jonel Hemphill MD [facility]-21085 Level 4 Est. Patient 09:15:44 CDT Jonel Hemphill MD [facility]-72420 Level 4 Est. Patient 19:16:01 CDT Jonel Yeager [facility] CPT-90938 Level 4 Est. Patient 11:25:16 CDT Jonel Hemphill MD [facility] CPT-50197 Level 4 Est. Patient 09:00:40 CDT Jonel Yeager [facility]-47822 Level 4 Est. Patient 14:53:58 CDT Jonel Hemphill MD [facility] CPT-15108 Level 4 Est. Patient 22:59:01 CDT Jonel Hempihll MD [facility]-24578 Level 4 Est. Patient 09:29:57 CDT Jonel Hemphill MD [facility]-44301 Level 4 Est. Patient 12:35:53 WIRELESS MANAGER Jonel Hemphill MD [facility]-74809 Level 4 Est. Patient 22:36:09 WIRELESS MANAGER Jonel Hemphill MD [facility]-07797 Level 2 Est. Patient 15:14:15 WIRELESS MANAGER Mayco Shah APRN [facility] CPT-80315 Level 4 Est. Patient 10:36:22 WIRELESS MANAGER Jonel Hemphill MD [facility] CPT-47243 Level 4 Est. Patient 22:01:13 WIRELESS MANAGER Jonel Hemphill MD [facility]-79309 Level 3 Est. Patient 21:50:37 WIRELESS MANAGER Jonel Hemphill MD [facility] CPT-55352 Level 4 Est. Patient 15:02:43 CDT Rubin Pierre MD [facility] CPT-76259 Level 4 Est. Patient 14:27:35 CDT Jonel Hemphill MD [facility]-76090 Level 4 Est. Patient 12:41:17 CDT Jonel Hemphill MD [facility]-73242 Level 4 Est. Patient 16:18:55 CDT Jonel Hemphill MD [facility]-33629 Level 4 Est. Patient 17:58:05 CDT Jonel Hemphill MD [facility]-48919 Level 4 Est. Patient 22:10:06 CDT Jonel Hemphill MD [facility]-27830 Level 4 Est. Patient 13:22:09 CDT Jonel Hemphill MD [facility]-11031 Level 4 Est. Patient 22:52:17 WIRELESS MANAGER Jonel Hemphill MD [facility]-05659 Level 3 Est. Patient 22:34:10 WIRELESS MANAGER Jonel Hemphill MD [facility] CPT-35369 Level 4 Est. Patient 07:49:20 WIRELESS MANAGER Jonel Hemphill MD [facility] Skilled CPT-27617 Level 3 Est. Patient 08:28:27 WIRELESS MANAGER Jonel Hemphill MD [facility] Procedures Code Procedure Name Date Entry Date Standard Description CPT-39696 Level 3 [facility]dc 12:09:43 CDT CPT-58865 Level 3 [facility]dc 09:37:40 CDT CPT-12705 Level 3 [facility]dc 18:23:02 CDT CPT-18246 Level 3 [facility] 14:09:06 CDT CPT-75936 Level 3 [facility]dc 12:43:27 WIRELESS MANAGER CPT-03502 Postop F/U Visit 14:10:15 WIRELESS MANAGER CPT-35526 [facility] Ne[facility] 17:07:14 WIRELESS MANAGER CPT-68134 Level 3 [facility] 16:14:37 WIRELESS MANAGER CPT-18820 Port a cath flush 11:47:42 CDT CPT-81316 Port a cath flush 08:29:49 CDT CPT-OV Office Visit 14:27:58 WIRELESS MANAGER
--- OUTSIDE RECORDS SUMMARY | 2016-08-07 11:55 | XMS REPORT ---
Author Author [employer] [facility] Medical Staff Organization [facility] Address [address] [place], [place] [address] Phone [phone] Care Team Providers Care Flight Engineer Name Role Phone FRANKO PRIETO MD PP [phone] Summary purpose TRANSITION OF CARE AUTO GENERATION [...] and/or laboratory data RESULTS Therapeutic Drug Monitoring [id number]:50:00 Result Normal Range Units Digoxin/Lanoxin L 0.6 [...] % Lymph % L 7.2 20-40 % Glenn % 5.5 0-10.0 % Eos % 0.9 0-7.0 % Baso % 0.3 0-2 % Neutro # 7.3 1.5-7.5 103/uL Lymph # L 0.6 0.9-4.0 103/uL Glenn # 0.5 0-0.8 103/uL Eos # 0.1 [...] should be interpreted with caution. Radiology Results :50:00 Result Normal Range Units MPV H 11.3 7.3-10.4 FL History of procedures No procedures recorded for this patient visit. Functional status Functional Status Finding Observation Time Abdomen Appearance obese :25 Abdomen soft :25 Wagner no [id number]:25 Urination normal :25 Quality sym/unlabored : Cough absent :25 Secretions no :25 Breath Sounds RUL clear : Breath Sounds RML clear : Breath Sounds RLL diminished : Breath Sounds CECILIA clear : Breath Sounds LLL diminished :25 Airway natural :25 Chest Tube no :25 Oxygen no :30 Temp >100.4 no : Temp <96.8 no :25 Chills with rigors no :25 HR > 90bpm yes : Respirations > 20 no :25 Systolic <90 no :25 headache stiff neck no :25 VAD Type tiffany-cath :08 VAD Location L upper chest :25 VAD Site Info discontinued Comment: flushed port with 10cc NS and 5cc heparin flush and deaccessed needle , seth well, covered with sterile 2x2 and bandaid :08 VAD Site Appearance WNL [id number] VAD Site Color clear :25 VAD Site Patent yes :25 VAD Dressing Type occlusive :25 Nursing Note copies of all paperwork sent with [facility] staff, verbalized understanding :40 Vital signs Type [...] yes Med/Side Effects Rev yes Flu Vac 2015
--- OUTSIDE RECORDS SUMMARY | 2016-08-07 11:55 | XMS REPORT | Clinical Summary ---
Author Author Admin, [place] [facility] Address Unknown Phone Allergies, Adverse Reactions, Alerts Allergy Name Reaction Description Start Date Severity Status Provider PENICILLIN Critical Active [place] Conditions or Problems Problem Name Problem Code Onset Date Status Entry Date Provider Comment Standard Description Annotate DIABETES MELLITUS, TYPE II, CONTROLLED 250.00 Active Jonel Hemphill MD Diabetes mellitus without mention of complication, type II or unspecified type, not stated as uncontrolled MORBID OBESITY 278.01 Active Jonel Hemphill MD Morbid obesity HYPERTENSION 401.1 Active Jonel Hemphill MD Benign essential hypertension 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 USE, HALFWAY V58.69 Resolved Jonel Hemphill MD Long-term (current) use of other medications C V A / STROKE 436 Active Gregor Tisha Acute, but ill- defined, cerebrovascular disease C O P D 496 Active [place] Chronic airway obstruction, not elsewhere classified DIABETES, TYPE 2 250.00 Resolved Jonel Hemphill MD Diabetes mellitus without mention of complication, type II or unspecified type, not stated as uncontrolled SEIZURE DISORDER 780.39 Active [place] Other convulsions CORONARY HEART DISEASE 414.00 Resolved Jonel Hemphill MD Coronary atherosclerosis of unspecified type of vessel, tunica-biloxi or graft FH DIABETES V18.0 Resolved Jonel [...] Coronary atherosclerosis of unspecified type of vessel, tunica-biloxi or graft CONSTIPATION 564.00 Resolved Jonel Hemphill [...] Hemphill MD Pain in limb 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 USE, [employer] HAND ICD-V58.69 Inactive Jonel Hemphill MD DIABETES, TYPE [...] TAB Q 6 HRS PRN HYDROCODONE- ACETAMINOPHEN 74870154715 Active Jonel Hemphill MD Active LEVEMIR 100 UNIT/ML SOLN 5 units sub-q at bedtime INSULIN DETEMIR 42315706619 No Longer Active Tova Perez Active MOBIC 15 MG TABS 1 tab PO daily for arthritis pain MELOXICAM 09706070688 No Longer Active Tova Perez Active GLUCAGEN 1 MG SOLR INJECT 1MG IM IF BS LESS THAN 60 & RES. IS UNABLE TO SWALLOW GLUCAGON HCL (RDNA) 31814860165 No Longer Active Tova Perez Active [facility] MILK OF MAGNESIA 1200 MG/15ML SUSP 30 ml daily for constipation MAGNESIUM HYDROXIDE 70514759589 No Longer Active Tova Perez Active IMDUR 120 MG [id number] 1 qd ISOSORBIDE MONONITRATE 82456510969 No Longer Active Tova Chris Active METFORMIN HCL 500 MG TABS 1 tablet by mouth twice daily METFORMIN HCL 09336390995 Active Tova Chris Active SULFAMETHOXAZOLE-TMP DS 800-160 MG TABS 1 TAB PO BID SULFAMETHOXAZOLE-TRIMETHOPRIM 40948439491 Active Tova Chris Active PHENYTOIN 50 MG CHEW 1 TAB PO BID PHENYTOIN 30727734320 Active Tova Perez Active MECLIZINE HCL 25 MG CHEW TAB 1 four times a day as needed for dizziness 02/21 MECLIZINE HCL 58460258713 Active Toav Chris Active GABAPENTIN 300 MG CAPS 1 CAP PO TID GABAPENTIN 93318938811 Active Tova Chris Active NEURONTIN 400 MG CAPS Take one by mouth 3 times daily, morning, afternoon and evening.] GABAPENTIN 64370160594 No Longer Active Tova Chris Active AMBIEN 10 MG TAB 1 tab by mouth at bedtime as needed for sleep ZOLPIDEM TARTRATE 61856827863 Active Jonel Hemphill MD Active POTASSIUM CHLORIDE CHELA ER 20 MEQ CR-TABS 1 tab PO daily POTASSIUM CHLORIDE CHELA CR 35765559614 Active Jonel Hemphill MD Active ANTIVERT 25 MG TABS 1 q 6 hrs prn MECLIZINE HCL 10827294463 No Longer Active Jonel Hemphill MD Active CLONIDINE HCL 0.2 MG TABS 1 q 8 hrs as needed -greater than 160-htn CLONIDINE HCL 37850602451 No Longer Active Jonel Hemphill MD Active AMBIEN 10 MG TABS 1 q hs prn ZOLPIDEM TARTRATE 40533031557 No Longer Active Jonel Hemphill MD Active GNP THERAPEUTIC-M TABS 1 qd MULTIPLE VITAMINS- MINERALS 38581688771 No Longer Active Jonel Hemphill MD Active METOPROLOL TARTRATE 50 MG TABS 1 bid METOPROLOL TARTRATE 28627582183 No Longer Active Jonel Hemphill MD Active METFORMIN HCL 500 MG TABS 1 bod with food METFORMIN HCL 21516093415 No Longer Active Jonel Hemphill MD Active LISINOPRIL 40 MG TABS 1 qd LISINOPRIL 71500705329 No Longer Active Jonel Hemphill MD Active HYDROCHLOROTHIAZIDE 25 MG TABS 1 qd HYDROCHLOROTHIAZIDE 45334294877 No Longer Active Jonel Hemphill MD Active DURAGESIC-25 25 MCG/HR PT72 place 1 patch on the skin q72hrs for pain FENTANYL 75841074052 No Longer Active Jonel Hemphill MD Active FENTANYL 75 MCG/HR PT72 place 1 patch on skin q72hrs fr pain 2012 FENTANYL 54713105578 No Longer Active Jonel Hemphill MD Active LASIX 20 MG TABS 1 tab PO q morning FUROSEMIDE 03732323839 Active Jonel Hemphill MD Active FUROSEMIDE 40 MG TABS 1 q am FUROSEMIDE 07154261990 No Longer Active Jonel Hemphill MD Active HEPARIN (PORCINE) LOCK FLUSH 100 UNIT/ML SOLN Flush port a cath monthly every three week on with Heparin and NS HEPARIN LOCK FLUSH 18554640864 Active Jonel Hemphill MD Active FENTANYL 100 MCG/HR PT72 Apply every 3 days FENTANYL 50042024449 Active Jonel Hemphill MD Active FENTANYL 25 MCG/HR PT72 Apply to clean skin and change every 72 hours. 07/03 FENTANYL 18933067504 No Longer Active Jonel Hemphill MD Active FENTANYL 50 MCG/HR PT72 place 1 patch on skin q72 hours FENTANYL 49573493469 No Longer Active Mayco Shah APRN Active HYDROCODONE-ACETAMINOPHEN 7.5-325 MG TABS 1 q 6 hrs prn HYDROCODONE-ACETAMINOPHEN 02347127960 Active Jonel Hemphill MD Active ATIVAN 0.5 MG TABS Take 1 tablet 2x daily LORAZEPAM 62758792505 Active Jonel Hemphill MD Active CELEXA 20 MG TABS Take 1 tablet 1x daily CITALOPRAM HYDROBROMIDE 23014180754 Active Jonel Hemphill MD Active MIRALAX POWD 17 gms in 4 oz water or juice daily POLYETHYLENE GLYCOL 3350 10540958111 Active Rubin Pierre MD Active DURAGESIC-12 12 MCG/HR PT72 APPLY PATCH TO SKIN AND CHANGE EVERY 72 HOURS, ROTATE SITES FENTANYL 70192112861 No Longer Active Fozia Amador RMA Active [facility] VITAMIN C 500 MG TABS 1 po daily ASCORBIC ACID 63784500455 Active [place] Active FUROSEMIDE 20 MG TABS 1 qd FUROSEMIDE 19860767762 No Longer Active [place] Active ADULT ASPIRIN EC LOW STRENGTH 81 MG TBEC 1 qd ASPIRIN 45133260730 Active Gregor Giles Active DILANTIN 100 MG CAPS 3 cap tid PHENYTOIN SODIUM EXTENDED 39850467154 Active [place] Active BUDEPRION SR 150 MG [id number] 1 bid BUPROPION HCL 85366730907 Active Gregor Giles Active ALLOPURINOL 300 MG TABS 1 qd ALLOPURINOL 63998042327 Active [place] Active COZAAR 100 MG TABS 1 qd LOSARTAN POTASSIUM 73805368740 Active [place] Active AMBIEN 10 MG TABS 1 q hs prn AMBIEN 10 MG TABS 437350 ZOLPIDEM TARTRATE Inactive ANTIVERT 25 MG TABS 1 q 6 hrs prn ANTIVERT 25 MG TABS MECLIZINE HCL Inactive CLONIDINE HCL 0.2 MG TABS 1 q 8 hrs as needed -greater than 160-htn CLONIDINE HCL 0.2 MG TABS 866688 CLONIDINE HCL Inactive DURAGESIC-25 25 MCG/HR PT72 place 1 patch on the skin q72hrs for pain DURAGESIC-25 25 MCG/HR PT72 514241 FENTANY[place] Inactive FUROSEMIDE 20 MG TABS 1 qd FUROSEMIDE 20 MG TABS 589987 FUROSEMIDE Inactive FUROSEMIDE 40 MG TABS 1 q am FUROSEMIDE 40 MG TABS 814265 FUROSEMIDE Inactive HYDROCHLOROTHIAZIDE 25 MG TABS 1 qd HYDROCHLOROTHIAZIDE 25 MG TABS 263424 HYDROCHLOROTHIAZIDE Inactive METOPROLOL TARTRATE 50 MG TABS 1 bid METOPROLOL TARTRATE 50 MG TABS 391971 METOPROLOL TARTRATE Inactive LISINOPRIL 40 MG TABS 1 qd LISINOPRIL 40 MG TABS 190227 LISINOPRIL Inactive METFORMIN HCL 500 MG TABS 1 bod with food METFORMIN HCL 500 MG TABS 246653 METFORMIN HCL Inactive NEURONTIN 400 MG CAPS Take one by mouth 3 times daily, morning, afternoon and evening.] NEURONTIN 400 MG CAPS 907877 GABAPENTIN Inactive IMDUR 120 MG [id number] 1 qd IMDUR 120 MG [id number] ISOSORBIDE MONONITRATE Inactive GLUCAGEN 1 MG SOLR INJECT 1MG IM IF BS LESS THAN 60 & RES. IS UNABLE TO SWALLOW GLUCAGEN 1 MG SOLR GLUCAGON HCL (RDNA) Inactive FENTANYL 25 MCG/HR PT72 Apply to clean skin and change every 72 hours. 07/03 FENTANYL 25 MCG/HR PT72 716981 FENTANYL Inactive FENTANYL 50 MCG/HR PT72 place 1 patch on skin q72 hours FENTANYL 50 MCG/HR PT72 456269 FENTANYL Inactive FENTANYL 75 MCG/HR PT72 place 1 patch on skin q72hrs fr pain 2012 FENTANYL 75 MCG/HR PT72 989027 F[place] Inactive MOBIC 15 MG TABS 1 tab PO daily for arthritis pain MOBIC 15 MG TABS 281363 MELOXICAM Inactive DURAGESIC-12 12 MCG/HR PT72 APPLY PATCH TO SKIN AND CHANGE EVERY 72 HOURS, ROTATE SITES DURAGESIC-12 12 MCG/HR PT72 037983 FENTANYL Inactive LEVEMIR 100 UNIT/ML SOLN 5 [...] Panel - Chemistry sodium, serum 141 mmol/L 495-617 5736/07/01 potassium, serum 3.4 mmol/L 3.5-5.2 chloride, serum 104 mmol/L 98-107 carbon dioxide, venous blood 27.3 mmol/L 21.0-32.0 blood glucose 101 mg/dL 65-110 calcium, serum 8.9 mg/dL 8.5-10.1 urea nitrogen, blood 15 mg/dL 7-18 creatinine, serum 1.10 mg/dL 0.60-1.30 sodium, serum 137 mmol/L 221-977 6266/06/14 potassium, serum 7.1 mmol/L 3.5-5.2 chloride, serum 107 mmol/L 98-107 carbon dioxide, venous blood 18.7 mmol/L 21.0-32.0 blood glucose 153 mg/dL 65-110 calcium, serum 8.8 mg/dL 8.5-10.1 urea nitrogen, blood 82 mg/dL 7-18 creatinine, serum 2.50 mg/dL 0.60-1.30 sodium, serum 141 mmol/L 624-007 5936/05/20 potassium, serum 5.7 mmol/L 3.5-5.2 chloride, serum 108 mmol/L 98-107 carbon dioxide, venous blood 20.4 mmol/L 21.0-32.0 blood glucose 147 mg/dL 65-110 calcium, serum 8.8 mg/dL 8.5-10.1 urea nitrogen, blood 68 mg/dL 7-18 creatinine, serum 2.40 mg/dL 0.60-1.30 sodium, serum 140 mmol/L 436-578 5662/05/31 potassium, serum 5.5 mmol/L 3.5-5.2 chloride, serum 108 mmol/L 98-107 carbon dioxide, venous blood 22.8 mmol/L 21.0-32.0 blood glucose 88 mg/dL 65-110 calcium, serum 9.1 mg/dL 8.5-10.1 urea nitrogen, blood 47 mg/dL 7-18 creatinine, serum 1.70 mg/dL 0.60-1.30 sodium, serum 137 mmol/L 156-392 7451/06/05 potassium, serum 6.5 mmol/L 3.5-5.2 chloride, serum [...] Panel - Chemistry sodium, serum 138 mmol/L 413-993 2670/05/24 potassium, serum 6.9 mmol/L 3.5-5.2 chloride, serum [...] Negative mg/dL Negative sodium, serum 142 mmol/L 824-743 8296/07/15 potassium, serum 3.9 mmol/L 3.5-5.2 chloride, serum [...] Acid - Chemistry sodium, serum 141 mmol/L 517-618 5841/05/09 potassium, serum 3.9 mmol/L 3.5-5.2 chloride, serum [...] dipstick Negative Negative sodium, serum 140 mmol/L 293-697 4340/02/18 potassium, serum 3.8 mmol/L 3.5-5.2 chloride, serum [...] Acid - Chemistry sodium, serum 141 mmol/L 349-456 1554/06/11 potassium, serum 5.9 mmol/L 3.5-5.2 chloride, serum [...] 10.0-20.0 Encounters Code Encounter Date Provider Facility CPT-69360 Level 3 Est. Patient 17:18:03 CDT Jonel Hemphill MD [facility] CPT-08202 Level 3 Est. Patient 21:58:03 [facility] [place] Jonel Hemphill MD [facility] CPT-30127 Level 4 Est. Patient 18:03:14 CDT Jonel Hemphill MD [facility]-53457 Level 4 Est. Patient 13:24:53 CDT Jonel Hemphill MD [facility]-57842 Level 4 Est. Patient 09:15:44 CDT Jonel Hemphill MD [facility]-37092 Level 4 Est. Patient 19:16:01 CDT Jonel Hemphill MD [facility]-80107 Level 4 Est. Patient 11:25:16 CDT Jonel Hemphill MD [facility] CPT-66684 Level 4 Est. Patient 09:00:40 CDT Jonel Hemphill MD [facility]-99715 Level 4 Est. Patient 14:53:58 CDT Jonel Hemphill MD [facility]-66965 Level 4 Est. Patient 22:59:01 CDT Jonel Hemphill MD [facility]-63906 Level 4 Est. Patient 09:29:57 CDT Jonel Hemphill MD [facility]-68657 Level 4 Est. Patient 12:35:53 [facility] [place] Jonel Hemphill MD [facility]-28260 Level 4 Est. Patient 22:36:09 [facility] [place] Jonel Hemphill MD [facility]-75366 Level 2 Est. Patient 15:14:15 [facility] [place] Mayco Shah APRN [facility] CPT-36891 Level 4 Est. Patient 10:36:22 [facility] [place] Jonel Hemphill MD [facility]-56714 Level 4 Est. Patient 22:01:13 [place] [place] Jonel Hemphill MD [facility]-99284 Level 3 Est. Patient 21:50:37 [place] Jonel Hemphill MD [facility] CPT-14717 Level 4 Est. Patient 15:02:43 CDT Rubin Pierre MD [facility] CPT-26570 Level 4 Est. Patient 14:27:35 CDT Jonel Hemphill MD [facility] CPT-94119 Level 4 Est. Patient 12:41:17 CDT Jonel Hemphill MD [facility] CPT-76164 Level 4 Est. Patient 16:18:55 CDT Jonel Hemphill MD [facility] CPT-86829 Level 4 Est. Patient 17:58:05 CDT Jonel Hemphill MD [facility] CPT-95667 Level 4 Est. Patient 22:10:06 CDT Jonel Hemphill MD [facility] CPT-29546 Level 4 Est. Patient 13:22:09 CDT Jonel Hemphill MD [facility] CPT-32224 Level 4 Est. Patient 22:52:17 [facility] [place] Jonel Hemphill MD [facility] CPT-06696 Level 3 Est. Patient 22:34:10 [facility] [place] Jonel Hemphill MD [facility] CPT-72135 Level 4 Est. Patient 07:49:20 [place] Jonel Hemphill MD [facility] CPT-24399 Level 3 Est. Patient 08:28:27 [facility] Jonel Hemphill MD [facility] Procedures Code Procedure Name Date Entry Date Standard Description CPT-82284 Level 3 Correction 09:37:40 CDT CPT-17068 Level 3 Correction 18:23:02 CDT CPT-25114 Level 3 Correction 14:09:06 CDT CPT-68089 Level 3 Correction 12:43:27 [facility] [place] CPT-56742 Postop F/U Visit 14:10:15 [facility] [place] CPT-54756 [facility] 17:07:14 [facility] [place] CPT-83478 Level 3 Correction 16:14:37 [facility] [place] CPT-14181 Port a cath flush 11:47:42 CDT CPT-53058 Port a cath flush 08:29:49 CDT CPT-OV Office Visit 14:27:58 [facility] [place]
--- OUTSIDE RECORDS SUMMARY | 2016-08-07 11:57 | XMS REPORT | Clinical Summary ---
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 Jonel Hemphill MD Long-term [...] Coronary atherosclerosis of unspecified type of vessel, [place] or graft FH DIABETES V18.0 Resolved Jonel [...] Coronary atherosclerosis of unspecified type of vessel, [place] or graft CONSTIPATION 564.00 Resolved Jonel Hemphill [...] (pediatric) DIABETES, TYPE 2 ICD-250.00 Inactive Jonel Hemphill MD DIABETES ICD-V18.0 Inactive Jonel Hemphill MD FH STROKE ICD-V17.1 Inactive Jonel Hemphill MD FAMILY HISTORY COLON CANCER-MOTHER ICD-V16.0 Inactive Jonel Hemphill MD VENOUS INSUFFICIENCY ICD-459.81 Inactive Jonel Hemphill MD CORONARY HEART DISEASE ICD-414.00 Inactive Jonel Hemphill MD 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 USE, PRISON ICD-V58.69 Inactive Jonel Hemphill MD DIABETIC ULCER, LEG [...] 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 Inactive Jonel Hemphill MD SLEEP APNEA ICD-780.57 Inactive Jonel Hemphill MD SLEEP APNEA ICD-780.57 Inactive Jonel Hemphill MD LOOSE STOOLS ICD-787.91 [...] 1 tablet by mouth daily CITALOPRAM HYDROBROMIDE 59332043573 Active Marleni Romero Active ZOFRAN 4 MG TABS 1 po q6hr PRN Nausea ONDANSETRON HCL 29520725876 Active Jonel Hemphill MD Active XARELTO 20 MG ORAL TABS 1 daily RIVAROXABAN 19436278910 Active Jonel Hemphill MD Active JANUVIA 100 MG ORAL TABS 2 tabs daily SITAGLIPTIN PHOSPHATE 89743680847 Active Jonel Hemphill MD Active CELEXA 20 MG TABS Take 1 tablet 1x daily CITALOPRAM HYDROBROMIDE 27938338084 No Longer Active Jonel Hemphill MD Active ATIVAN 0.5 MG TABS Take 1 tablet 2x daily PRN LORAZEPAM 59768270606 No Longer Active Jonel Hemphill MD Active FUROSEMIDE 80 MG ORAL TABS 1 daily FUROSEMIDE 65855453580 Active Jonel Hemphill MD Active MECLIZINE HCL 25 MG CHEW TAB 1 four times a day as needed for dizziness 02/21 MECLIZINE HCL 87885939210 No Longer Active Jonel Hemphill MD Active ZYLOPRIM 300 MG TAB 1 BY MOUTH DAILY ALLOPURINOL 20068758195 No Longer Active Jonel Hemphill MD Active METOPROLOL TARTRATE 50 MG ORAL TABS 1 TAB BY MOUTH TWICE DAILY METOPROLOL TARTRATE 37264222778 No Longer Active Jonel Hemphill MD Active GABAPENTIN 400 MG ORAL CAPS 1 TAB BY MOUTH THREE TIMES DAILY 2015 GABAPENTIN 53786363843 No Longer Active Jonel Hemphill MD Active ULORIC 40 MG ORAL TABS 1 daily for gout. FEBUXOSTAT 94307096315 Active Marleni Romero Active HYDROCODONE-ACETAMINOPHEN 7.5-325 MG TABS 1 TAB PO Q 6 HRS PRN HYDROCODONE-ACETAMINOPHEN 11682629193 Active Jonel Hemphill MD Active METFORMIN HCL 1000 MG TABS 1 tablet by mouth twice daily METFORMIN HCL 12432812497 Active Marleni Romero Active FENTANYL 12 MCG/HR PT72 Apply to clean, dry skin and change every 72 hours FENTANYL 69232822839 Active Jonel Hemphill MD Active KLOR-CON 20 MEQ ORAL PACK 1 BY MOUTH DAILY POTASSIUM CHLORIDE 52391679716 Active Marleni Romero Active A+D FIRST AID EXT OINT APPLY OINTMENT AND RUFINO WRAPS TO LOWER EXTEREMETIES DAILY SKIN PROTECTANTS, MISC. 40974295174 Active Jonel Hemphill MD Active NYSTATIN 874886 UNIT/GM EXT OINT APPLY PRN TID TO GAULDING/RASH IN ABDOMINAL FOLDS NYSTATIN 23626653131 Active Jonel Hemphill MD Active GABAPENTIN 300 MG CAPS 1 CAP PO TID GABAPENTIN 13652831792 No Longer Active Jonel Hemphill MD Active DILANTIN 100 MG ORAL CAPS 1 THREE TIMES DAILY FOR SEIZURES PHENYTOIN SODIUM EXTENDED 12598716342 Active Marleni Tenoriokristin Active CPAP APPLY AT HS CPAP Active Jonel Hemphill MD Active LISINOPRIL 40 MG TABS 1 tablet by mouth twice daily, for blood pressure 03/31 LISINOPRIL 89207248158 Active Jonel Hemphill MD Active BUPROPION HCL ER (SR) 150 MG [id number] 1 twice a day for depression BUPROPION HCL 56278363755 Active Jonel Hemphill MD Active MULTIVITAMINS CAPS 1 DAILY MULTIPLE VITAMIN 49008759153 Active Jonel Hemphill MD Active HYDROCODONE-ACETAMINOPHEN 7.5-325 MG TABS 1 q 6 hrs prn HYDROCODONE-ACETAMINOPHEN 65548214869 No Longer Active Jonel Hemphill MD Active DILANTIN 100 MG CAPS 3 cap tid PHENYTOIN SODIUM EXTENDED 57929179242 No Longer Active Jonel Hemphill MD Active BUDEPRION SR 150 MG [id number] 1 bid BUPROPION HCL 57349860879 No Longer Active Jonel Hemphill MD Active ALLOPURINOL 300 MG TABS 1 qd ALLOPURINOL 40520273744 No Longer Active Jonel Hemphill MD Active COZAAR 100 MG TABS 1 qd LOSARTAN POTASSIUM 66405614299 No Longer Active Jonel Hemphill MD Active CVS VITAMIN C 500 MG TABS 1 po daily ASCORBIC ACID 28828838774 No Longer Active Jonel Hemphill MD Active MIRALAX POWD 17 gms in 4 oz water or juice daily POLYETHYLENE GLYCOL 3350 71128463331 No Longer Active Jonel Hemphill MD Active POTASSIUM CHLORIDE CHELA ER 20 MEQ CR-TABS 1 tab PO daily POTASSIUM CHLORIDE CHELA CR 29114098161 No Longer Active Jonel Hemphill MD Active AMBIEN 10 MG TAB 1 tab by mouth at bedtime as needed for sleep ZOLPIDEM TARTRATE 30558571865 No Longer Active Jonel Hemphill MD Active SULFAMETHOXAZOLE-TMP DS 800-160 MG TABS 1 TAB PO BID SULFAMETHOXAZOLE-TRIMETHOPRIM 60599820142 No Longer Active Jonel Hemphill MD Active NORCO 5-325 MG TABS 1-2 TAB Q 6 HRS PRN HYDROCODONE- ACETAMINOPHEN 37959388367 Active Jonel Hemphill MD Active LEVEMIR 100 UNIT/ML SOLN 5 units sub-q at bedtime INSULIN DETEMIR 94185680799 No Longer Active Tova Perez Active MOBIC 15 MG TABS 1 tab PO daily for arthritis pain MELOXICAM 88093999164 No Longer Active Tova Perez Active GLUCAGEN 1 MG SOLR INJECT 1MG IM IF BS LESS THAN 60 & RES. IS UNABLE TO SWALLOW GLUCAGON HCL (RDNA) 39306884692 No Longer Active Tova Perez Active CVS MILK OF MAGNESIA 1200 MG/15ML SUSP 30 ml daily for constipation MAGNESIUM HYDROXIDE 93191801318 No Longer Active Tova Perez Active IMDUR 120 MG [id number] 1 qd ISOSORBIDE MONONITRATE 32413295253 No Longer Active Tova Perez Active PHENYTOIN 50 MG CHEW 1 TAB PO BID PHENYTOIN 21520114165 Active Tova Perez Active NEURONTIN 400 MG CAPS Take one by mouth 3 times daily, morning, afternoon and evening.] GABAPENTIN 48498171176 No Longer Active Tova Perez Active ANTIVERT 25 MG TABS 1 q 6 hrs prn MECLIZINE HCL 81330953464 No Longer Active Jonel Hemphill MD Active CLONIDINE HCL 0.2 MG TABS 1 q 8 hrs as needed -greater than 160-htn CLONIDINE HCL 35280080218 No Longer Active Jonel Hemphill MD Active AMBIEN 10 MG TABS 1 q hs prn ZOLPIDEM TARTRATE 72776565942 No Longer Active Jonel Hemphill MD Active GNP THERAPEUTIC-M TABS 1 qd MULTIPLE VITAMINS- MINERALS 45613869682 No Longer Active Jonel Hemphill MD Active METOPROLOL TARTRATE 50 MG TABS 1 bid METOPROLOL TARTRATE 20530000083 No Longer Active Jonel Hemphill MD Active METFORMIN HCL 500 MG TABS 1 bod with food METFORMIN HCL 47379042361 No Longer Active Jonel Hemphill MD Active LISINOPRIL 40 MG TABS 1 qd LISINOPRIL 40591185205 No Longer Active Jonel Hemphill MD Active HYDROCHLOROTHIAZIDE 25 MG TABS 1 qd HYDROCHLOROTHIAZIDE 04994401977 No Longer Active Jonel Hemphill MD Active DURAGESIC-25 25 MCG/HR PT72 place 1 patch on the skin q72hrs for pain FENTANYL 97404272862 No Longer Active Jonel Hemphill MD Active FENTANYL 75 MCG/HR PT72 place 1 patch on skin q72hrs fr pain 2012 FENTANYL 37184117242 No Longer Active Jonel Hemphill MD Active FUROSEMIDE 40 MG TABS 1 q am FUROSEMIDE 81603269641 No Longer Active Jonel Hemphill MD Active HEPARIN (PORCINE) LOCK FLUSH 100 UNIT/ML SOLN Flush port a cath monthly every three week on with Heparin and NS HEPARIN LOCK FLUSH 95796493807 Active Jonel Hemphill MD Active FENTANYL 100 MCG/HR PT72 Apply every 3 days FENTANYL 07635093246 Active Jonel Hemphill MD Active FENTANYL 25 MCG/HR PT72 Apply to clean skin and change every 72 hours. 07/03 FENTANYL 14274410692 No Longer Active Jonel Hemphill MD Active FENTANYL 50 MCG/HR PT72 place 1 patch on skin q72 hours FENTANYL 65103104463 No Longer Active Mayco Shah APRN Active DURAGESIC-12 12 MCG/HR PT72 APPLY PATCH TO SKIN AND CHANGE EVERY 72 HOURS, ROTATE SITES FENTANYL 68341056887 No Longer Active Fozia HERNANDEZ Active FUROSEMIDE 20 MG TABS 1 qd FUROSEMIDE 57709604544 No Longer Active Mahogany Bolivar Active ADULT ASPIRIN EC LOW STRENGTH 81 MG TBEC 1 qd ASPIRIN 66194525059 Active MARY Perez Active FUROSEMIDE 20 MG TABS 1 qd FUROSEMIDE 20 MG TABS 643738 FUROSEMIDE Inactive DURAGESIC-12 12 MCG/HR PT72 APPLY PATCH TO SKIN AND CHANGE EVERY 72 HOURS, ROTATE SITES DURAGESIC-12 12 MCG/HR PT72 115970 FENTANYL Inactive FENTANYL 50 MCG/HR PT72 place 1 patch on skin q72 hours FENTANYL 50 MCG/HR PT72 055753 FENTANYL Inactive FUROSEMIDE 40 MG TABS 1 q am FUROSEMIDE 40 MG TABS 207742 FUROSEMIDE Inactive FENTANYL 75 MCG/HR PT72 place 1 patch on skin q72hrs fr pain 2012 FENTANYL 75 MCG/HR PT72 223800 FENTANYL Inactive DURAGESIC-25 25 MCG/HR PT72 place 1 patch on the skin q72hrs for pain DURAGESIC-25 25 MCG/HR PT72 166348 FENTANYL Inactive HYDROCHLOROTHIAZIDE 25 MG TABS 1 qd HYDROCHLOROTHIAZIDE 25 MG TABS 112787 HYDROCHLOROTHIAZIDE Inactive LISINOPRIL 40 MG TABS 1 qd LISINOPRIL 40 MG TABS 797158 LISINOPRIL Inactive METFORMIN HCL 500 MG TABS 1 bod with food METFORMIN HCL 500 MG TABS 671175 METFORMIN HCL Inactive METOPROLOL TARTRATE 50 MG TABS 1 bid METOPROLOL TARTRATE 50 MG TABS 042414 METOPROLOL TARTRATE Inactive GNP THERAPEUTIC-M TABS 1 qd GNP THERAPEUTIC-M TABS MULTIPLE VITAMINS-MINERALS Inactive AMBIEN 10 MG TABS 1 q hs prn AMBIEN 10 MG TABS 483538 ZOLPIDEM TARTRATE Inactive CLONIDINE HCL 0.2 MG TABS 1 q 8 hrs as needed -greater than 160-htn CLONIDINE HCL 0.2 MG TABS 051482 CLONIDINE HCL Inactive ANTIVERT 25 MG TABS 1 q 6 hrs prn ANTIVERT 25 MG TABS MECLIZINE HCL Inactive NEURONTIN 400 MG CAPS Take one by mouth 3 times daily, morning, afternoon and evening.] NEURONTIN 400 MG CAPS 450684 GABAPENTIN Inactive IMDUR 120 MG [id number] 1 qd IMDUR 120 MG [id number] ISOSORBIDE MONONITRATE Inactive CVS MILK OF MAGNESIA [...] for arthritis pain MOBIC 15 MG TABS 115533 MELOXICAM Inactive LEVEMIR 100 UNIT/ML SOLN 5 units sub-q at bedtime LEVEMIR 100 UNIT/ML SOLN INSULIN DETEMIR Inactive SULFAMETHOXAZOLE-TMP DS 800-160 MG TABS 1 TAB PO BID SULFAMETHOXAZOLE-TMP DS 800-160 MG TABS 070653 SULFAMETHOXAZOLE-TRIMETHOPRIM Inactive AMBIEN 10 MG TAB 1 tab by mouth at bedtime as needed for sleep AMBIEN 10 MG TAB 971216 ZOLPIDEM TARTRATE Inactive POTASSIUM CHLORIDE CHELA ER 20 MEQ CR-TABS 1 tab PO daily POTASSIUM CHLORIDE CHELA ER 20 MEQ CR-TABS POTASSIUM CHLORIDE CHELA CR Inactive MIRALAX POWD 17 gms in 4 oz water or juice daily MIRALAX POWD 409323 POLYETHYLENE GLYCOL 3350 Inactive CVS VITAMIN C 500 MG TABS 1 po daily CVS VITAMIN C 500 MG TABS 362671 ASCORBIC ACID Inactive COZAAR 100 MG TABS 1 qd COZAAR 100 MG TABS 607922 LOSARTAN POTASSIUM Inactive ALLOPURINOL 300 MG TABS 1 qd ALLOPURINOL 300 MG TABS 496270 ALLOPURINOL Inactive BUDEPRION SR 150 MG [id number] 1 bid BUDEPRION SR 150 MG [id number] BUPROPION HCL Inactive DILANTIN 100 MG CAPS 3 cap tid DILANTIN 100 MG CAPS 926118 PHENYTOIN SODIUM EXTENDED Inactive HYDROCODONE-ACETAMINOPHEN 7.5-325 MG TABS 1 q 6 hrs prn HYDROCODONE-ACETAMINOPHEN 7.5-325 MG TABS 843821 HYDROCODONE- ACETAMINOPHEN Inactive GABAPENTIN 300 MG CAPS 1 CAP PO TID GABAPENTIN 300 MG CAPS 432774 GABAPENTIN Inactive GABAPENTIN 400 MG ORAL CAPS 1 TAB BY MOUTH THREE TIMES DAILY 2015 GABAPENTIN 400 MG ORAL CAPS 715679 GABAPENTIN Inactive METOPROLOL TARTRATE 50 MG ORAL TABS 1 TAB BY MOUTH TWICE DAILY METOPROLOL TARTRATE 50 MG ORAL TABS 368232 METOPROLOL TARTRATE Inactive ZYLOPRIM 300 MG TAB 1 BY MOUTH DAILY ZYLOPRIM 300 MG TAB 874381 ALLOPURINOL Inactive MECLIZINE HCL 25 MG CHEW TAB 1 four times a day as needed for dizziness 02/21 MECLIZINE HCL 25 MG CHEW TAB 722020 MECLIZINE HCL Inactive ATIVAN 0.5 MG TABS Take 1 tablet 2x daily PRN ATIVAN 0.5 MG TABS 383035 LORAZEPAM Inactive CELEXA 20 MG TABS Take 1 tablet 1x daily CELEXA 20 MG TABS 213330 CITALOPRAM HYDROBROMIDE Inactive FENTANYL 25 MCG/HR PT72 Apply to clean skin and change every 72 hours. 07/03 FENTANYL 25 MCG/HR PT72 361085 FENTANYL Inactive Advance Directives Directive Description Start [...] Outside labs entered on flowsheet - Chemistry blood glucose 147 mg/dL creatinine, serum 0.19 mg/dL aspartate aminotransferase (SGOT), serum 13 U/L alanine aminotransferase (SGPT), serum 13 U/L alkaline phosphatase, serum 51 U/L potassium, serum 3.9 mmol/L sodium, serum 143 mmol/L sodium, serum 139 mmol/L alkaline phosphatase, serum [...] 14.4 g/dL leukocyte count, blood 6.9 10*3/mm3 Encounters Code Encounter Date Provider Facility CPT-53697 Level 3 Est. Patient 19:05:03 CDT Jonel Hemphill MD [facility]-53562 Level 3 Est. Patient 17:30:47 CDT Kevin Link MD [facility]-80685 Level 3 Est. Patient 18:04:07 CDT Jonel Hemphill MD [facility] CPT-38144 Level 3 Est. Patient 17:18:03 CDT Jonel Hemphill MD [facility] CPT-46368 Level 3 Est. Patient 21:58:03 [employer] Jonel Hemphill MD [facility] CPT-48385 Level 4 Est. Patient 18:03:14 CDT Jonel Hemphill MD [facility]-33283 Level 4 Est. Patient 13:24:53 CDT Jonel Hemphill MD [facility]-11416 Level 4 Est. Patient 09:15:44 CDT Jonel Hemphill MD [facility]-64922 Level 4 Est. Patient 19:16:01 CDT Jonel Yeager of [facility]-04219 Level 4 Est. Patient 11:25:16 CDT Jonel Hemphill MD [facility] CPT-86076 Level 4 Est. Patient 09:00:40 CDT Jonel Hemphill MD [facility]-42808 Level 4 Est. Patient 14:53:58 CDT Jonel Hemphill MD [facility] CPT-12735 Level 4 Est. Patient 22:59:01 CDT Jonel Hemphill MD [facility]-13156 Level 4 Est. Patient 09:29:57 CDT Jonel Hemphill MD [facility]-29744 Level 4 Est. Patient 12:35:53 [employer] Jonel Hemphill MD [facility] CPT-24075 Level 4 Est. Patient 22:36:09 [employer] Jonel Hemphill MD [facility]-74891 Level 2 Est. Patient 15:14:15 [employer] Mayco Shah APRN [facility] CPT-01686 Level 4 Est. Patient 10:36:22 [employer] Jonel Hemphill MD [facility] CPT-90544 Level 4 Est. Patient 22:01:13 [employer] Jonel Hemphill MD [facility]-21669 Level 3 Est. Patient 21:50:37 [employer] Jonel Hemphill MD [facility] CPT-86086 Level 4 Est. Patient 15:02:43 CDT Rubin Pierre MD [facility] CPT-37171 Level 4 Est. Patient 14:27:35 CDT Jonel Hemphill MD [facility]-73215 Level 4 Est. Patient 12:41:17 CDT Jonel Hemphill MD [facility]-05612 Level 4 Est. Patient 16:18:55 CDT Jonel Hemphill MD [facility]-99101 Level 4 Est. Patient 17:58:05 CDT Jonel Hemphill MD [facility]-84721 Level 4 Est. Patient 22:10:06 CDT Jonel Hemphill MD [facility]-13863 Level 4 Est. Patient 13:22:09 CDT Jonel Hemphill MD [facility]-94158 Level 4 Est. Patient 22:52:17 [employer] Jonel Hemphill MD [facility]-46844 Level 3 Est. Patient 22:34:10 [employer] Jonel Hemphill MD [facility]-99987 Level 4 Est. Patient 07:49:20 [employer] Jonel Hemphill MD [facility] Skilled CPT-95920 Level 3 Est. Patient 08:28:27 [employer] Jonel Hemphill MD [facility] Procedures Code Procedure Name Date Entry Date Standard Description CPT-16381 Level 3 Snf 08:18:30 CDT CPT-30713 Level 3 Snf 19:03:14 CDT CPT-25773 Level 3 Snf 17:42:11 CDT CPT-08538 Level 3 Snf 16:04:10 CDT CPT-36675 Level 3 Snf 19:38:15 [employer] CPT-35196 Level 3 Snf 19:28:48 [employer] CPT-54992 Level 3 Snf 18:02:20 [employer] CPT-50753 Level 3 Snf 15:02:14 [employer] CPT-78886 Level 3 Snf 12:25:37 CDT CPT-83827 Level 3 Snf 12:48:39 CDT CPT-53713 Level 3 Snf 17:39:14 CDT CPT-76697 Level 3 Snf 13:32:58 CDT CPT-62324 Level 3 Snf 17:43:43 CDT CPT-08333 Level 3 Snf 12:03:33 [employer] CPT-02823 Level 3 Snf 18:47:28 [employer] CPT-73089 Level 3 Snf 17:35:26 [employer] CPT-36590 Level 3 Snf 18:44:49 [employer] CPT-08116 Level 3 Snf 18:17:33 CDT CPT-48547 Level 3 Snf 09:25:33 CDT CPT-55441 Level 3 Snf 19:11:57 CDT CPT-94553 Level 3 Snf 09:25:52 CDT CPT-26762 Level 3 Snf 14:23:59 CDT CPT-73066 Level 3 Snf 12:09:43 CDT CPT-85972 Level 3 Snf 09:37:40 CDT CPT-84199 Level 3 Snf 18:23:02 CDT CPT-21530 Level 3 Snf 14:09:06 CDT CPT-44479 Level 3 Snf 12:43:27 [employer] CPT-93621 Postop F/U Visit 14:10:15 [employer] CPT-30451 [facility] 17:07:14 [employer] CPT-60645 Level 3 Snf 16:14:37 [employer] CPT-75717 Port a cath flush 11:47:42 CDT CPT-84934 Port a cath flush 08:29:49 CDT CPT-OV Office Visit 14:27:58 [employer]
--- OUTSIDE RECORDS SUMMARY | 2016-08-07 11:58 | XMS REPORT | Clinical Summary ---
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 Jonel Hemphill MD Long-term [...] Pain in or around eye 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 USE, AUTO RADIATOR MECHANIC ICD-V58.69 Inactive Jonel Hemphill MD DIABETES, [...] Jonel Hemphill MD Nightmares ICD-307.47 Inactive Jonel Hemhpill MD Bronchitis-Acute ICD-466.0 Inactive Jonel Hemphill MD Cellulitis, leg, right ICD-682.6 Inactive Jonel Hemphill MD Flank pain, right ICD-789.09 Inactive Jonel Hemphill MD Medication List Medication Instructions Start Date Stop Date Generic Name NDC Status Provider Patient Instruction NORCO 5-325 MG TABS 1-2 TAB Q 6 HRS PRN HYDROCODONE- ACETAMINOPHEN [id number] Active Jonel Hemphill MD Active LEVEMIR 100 UNIT/ML SOLN 5 units sub-q at bedtime INSULIN DETEMIR 82068233563 No Longer Active Tova Perez Active MOBIC 15 MG TABS 1 tab PO daily for arthritis pain MELOXICAM 25002447685 No Longer Active Tova Perez Active GLUCAGEN 1 MG SOLR INJECT 1MG IM IF BS LESS THAN 60 & RES. IS UNABLE TO SWALLOW GLUCAGON HCL (RDNA) 58152881777 No Longer Active Tova Perez Active [facility] MILK OF MAGNESIA 1200 MG/15ML SUSP 30 ml daily for constipation MAGNESIUM HYDROXIDE 81336882606 No Longer Active Tova Perez Active IMDUR 120 MG [id number] 1 qd ISOSORBIDE MONONITRATE 38168795127 No Longer Active Tova Perez Active METFORMIN HCL 500 MG TABS 1 tablet by mouth twice daily METFORMIN HCL 21234479155 Active Tova Perez Active SULFAMETHOXAZOLE-TMP DS 800-160 MG TABS 1 TAB PO BID SULFAMETHOXAZOLE-TRIMETHOPRIM 69845017647 Active Tova Perez Active PHENYTOIN 50 MG CHEW 1 TAB PO BID PHENYTOIN 94774157134 Active Tova Perez Active MECLIZINE HCL 25 MG CHEW TAB 1 four times a day as needed for dizziness 02/21 MECLIZINE HCL 01727264687 Active Tova Perez Active GABAPENTIN 300 MG CAPS 1 CAP PO TID GABAPENTIN 21272975010 Active Tova Perez Active NEURONTIN 400 MG CAPS Take one by mouth 3 times daily, morning, afternoon and evening.] GABAPENTIN 96575877641 No Longer Active Tova Perez Active AMBIEN 10 MG TAB 1 tab by mouth at bedtime as needed for sleep ZOLPIDEM TARTRATE 19234396428 Active Jonel Hemphill MD Active POTASSIUM CHLORIDE CHELA ER 20 MEQ CR-TABS 1 tab PO daily POTASSIUM CHLORIDE CHELA CR 18743708023 Active Jonel Hemphill MD Active ANTIVERT 25 MG TABS 1 q 6 hrs prn MECLIZINE HCL 10395265816 No Longer Active Jonel Hemphill MD Active CLONIDINE HCL 0.2 MG TABS 1 q 8 hrs as needed -greater than 160-htn CLONIDINE HCL 24313161881 No Longer Active Jonel Hemphill MD Active AMBIEN 10 MG TABS 1 q hs prn ZOLPIDEM TARTRATE 47730291018 No Longer Active Jonel Hemphill MD Active GNP THERAPEUTIC-M TABS 1 qd MULTIPLE VITAMINS- MINERALS 56916067826 No Longer Active Jonel Hemphill MD Active METOPROLOL TARTRATE 50 MG TABS 1 bid METOPROLOL TARTRATE 97172625048 No Longer Active Jonel Hemphill MD Active METFORMIN HCL 500 MG TABS 1 bod with food METFORMIN HCL 30809135285 No Longer Active Jonel Hemphill MD Active LISINOPRIL 40 MG TABS 1 qd LISINOPRIL 42283950605 No Longer Active Jonel Hemphill MD Active HYDROCHLOROTHIAZIDE 25 MG TABS 1 qd HYDROCHLOROTHIAZIDE 10034506612 No Longer Active Jonel Hemphill MD Active DURAGESIC-25 25 MCG/HR PT72 place 1 patch on the skin q72hrs for pain FENTANYL 27750157752 No Longer Active Jonel Hemphill MD Active FENTANYL 75 MCG/HR PT72 place 1 patch on skin q72hrs fr pain 2012 FENTANYL 21956612688 No Longer Active Jonel Hemphill MD Active LASIX 20 MG TABS 1 tab PO q morning FUROSEMIDE 91616399123 Active Jonel Hemphill MD Active FUROSEMIDE 40 MG TABS 1 q am FUROSEMIDE 34985876639 No Longer Active Jonel Hemphill MD Active HEPARIN (PORCINE) LOCK FLUSH 100 UNIT/ML SOLN Flush port a cath monthly every three week on with Heparin and NS HEPARIN LOCK FLUSH 63771319940 Active Jonel Hemphill MD Active FENTANYL 100 MCG/HR PT72 Apply every 3 days FENTANYL 10069278789 Active Jonel Hemphill MD Active FENTANYL 25 MCG/HR PT72 Apply to clean skin and change every 72 hours. 07/03 FENTANYL 84176136244 No Longer Active Jonel Hemphill MD Active FENTANYL 50 MCG/HR PT72 place 1 patch on skin q72 hours FENTANYL 77723883636 No Longer Active Mayco Shah APRN Active HYDROCODONE-ACETAMINOPHEN 7.5-325 MG TABS 1 q 6 hrs prn HYDROCODONE-ACETAMINOPHEN 32676494204 Active Jonel Hemphill MD Active ATIVAN 0.5 MG TABS Take 1 tablet 2x daily LORAZEPAM 08011964692 Active Jonel Hemphill MD Active CELEXA 20 MG TABS Take 1 tablet 1x daily CITALOPRAM HYDROBROMIDE 62583938920 Active Jonel Hemphill MD Active MIRALAX POWD 17 gms in 4 oz water or juice daily POLYETHYLENE GLYCOL 3350 22405297869 Active Rubin Pierre MD Active DURAGESIC-12 12 MCG/HR PT72 APPLY PATCH TO SKIN AND CHANGE EVERY 72 HOURS, ROTATE SITES FENTANYL 05060734029 No Longer Active Fozia HERNANDEZ Active [facility] VITAMIN C 500 MG TABS 1 po daily ASCORBIC ACID 93356360095 Active Mahogany Montrose Active FUROSEMIDE 20 MG TABS 1 qd FUROSEMIDE 47847206113 No Longer Active Mahogany Montrose Active ADULT ASPIRIN EC LOW STRENGTH 81 MG TBEC 1 qd ASPIRIN 12375623345 Active MARY Perez Active DILANTIN 100 MG CAPS 3 cap tid PHENYTOIN SODIUM EXTENDED 90579052805 Active MARY Perez Active BUDEPRION SR 150 MG [id number] 1 bid BUPROPION HCL 90807363008 Active MARY Perez Active ALLOPURINOL 300 MG TABS 1 qd ALLOPURINOL 23872917586 Active MARY Perez Active COZAAR 100 MG TABS 1 qd LOSARTAN POTASSIUM 85303932195 Active MARY Perez Active FUROSEMIDE 20 MG TABS 1 qd FUROSEMIDE 20 MG TABS 740962 FUROSEMIDE Inactive DURAGESIC-12 12 MCG/HR PT72 APPLY PATCH TO SKIN AND CHANGE EVERY 72 HOURS, ROTATE SITES DURAGESIC-12 12 MCG/HR PT72 662845 FENTANYL Inactive FENTANYL 50 MCG/HR PT72 place 1 patch on skin q72 hours FENTANYL 50 MCG/HR PT72 874599 FENTANYL Inactive FUROSEMIDE 40 MG TABS 1 q am FUROSEMIDE 40 MG TABS 668876 FUROSEMIDE Inactive FENTANYL 75 MCG/HR PT72 place 1 patch on skin q72hrs fr pain 2012 FENTANYL 75 MCG/HR PT72 223842 FENTANYL Inactive DURAGESIC-25 25 MCG/HR PT72 place 1 patch on the skin q72hrs for pain DURAGESIC-25 25 MCG/HR PT72 567230 FENTANYL Inactive HYDROCHLOROTHIAZIDE 25 MG TABS 1 qd HYDROCHLOROTHIAZIDE 25 MG TABS 613959 HYDROCHLOROTHIAZIDE Inactive LISINOPRIL 40 MG TABS 1 qd LISINOPRIL 40 MG TABS 132192 LISINOPRIL Inactive METFORMIN HCL 500 MG TABS 1 bod with food METFORMIN HCL 500 MG TABS 808085 METFORMIN HCL Inactive METOPROLOL TARTRATE 50 MG TABS 1 bid METOPROLOL TARTRATE 50 MG TABS 827176 METOPROLOL TARTRATE Inactive GNP THERAPEUTIC-M TABS 1 qd GNP THERAPEUTIC-M TABS MULTIPLE VITAMINS-MINERALS Inactive AMBIEN 10 MG TABS 1 q hs prn AMBIEN 10 MG TABS 288166 ZOLPIDEM TARTRATE Inactive CLONIDINE HCL 0.2 MG TABS 1 q 8 hrs as needed -greater than 160-htn CLONIDINE HCL 0.2 MG TABS 003326 CLONIDINE HCL Inactive ANTIVERT 25 MG TABS 1 q 6 hrs prn ANTIVERT 25 MG TABS MECLIZINE HCL Inactive NEURONTIN 400 MG CAPS Take one by mouth 3 times daily, morning, afternoon and evening.] NEURONTIN 400 MG CAPS 738530 GABAPENTIN Inactive IMDUR 120 MG [id number] 1 qd IMDUR 120 MG [id number] ISOSORBIDE MONONITRATE Inactive [facility] MILK OF MAGNESIA [...] for arthritis pain MOBIC 15 MG TABS 648344 MELOXICAM Inactive LEVEMIR 100 UNIT/ML SOLN 5 units sub-q at bedtime LEVEMIR 100 UNIT/ML SOLN INSULIN DETEMIR Inactive FENTANYL 25 MCG/HR PT72 Apply to clean skin and change every 72 hours. 07/03 FENTANYL 25 MCG/HR PT72 514614 FENTANYL Inactive Advance Directives Directive Description Start [...] distribution width 15.0 % Lab Report: CBC W/DIFF - Hematology [...] Acid - Chemistry sodium, serum 141 mmol/L 897-779 7272/05/09 potassium, serum 3.9 mmol/L 3.5-5.2 chloride, serum [...] dipstick Negative Negative sodium, serum 140 mmol/L 965-421 3238/02/18 potassium, serum 3.8 mmol/L 3.5-5.2 chloride, serum [...] Negative Encounters Code Encounter Date Provider Facility CPT-15189 Level 3 Est. Patient 18:04:07 CDT Jonel Hemphill MD [facility] CPT-99906 Level 3 Est. Patient 17:18:03 CDT Jonel Hemphill MD [facility] CPT-69528 Level 3 Est. Patient 21:58:03 PIE BAKER Jonel Hemphill MD [facility] CPT-69271 Level 4 Est. Patient 18:03:14 CDT Jonel Hemphill MD [facility] CPT-08728 Level 4 Est. Patient 13:24:53 CDT Jonel Hemphill MD [facility]-73594 Level 4 Est. Patient 09:15:44 CDT Jonel Hemphill MD [facility]-30430 Level 4 Est. Patient 19:16:01 CDT Jonel Hemphill MD [facility]-77367 Level 4 Est. Patient 11:25:16 CDT Jonel Hemphill MD [facility] CPT-25541 Level 4 Est. Patient 09:00:40 CDT Jonel Hemphill MD [facility]-29143 Level 4 Est. Patient 14:53:58 CDT Jonel Hemphill MD [facility]-77200 Level 4 Est. Patient 22:59:01 CDT Jonel Hemphill MD [facility]-68318 Level 4 Est. Patient 09:29:57 CDT Jonel Hemphill MD [facility]-89119 Level 4 Est. Patient 12:35:53 PIE BAKER Jonel Hemphill MD [facility]-54611 Level 4 Est. Patient 22:36:09 PIE BAKER Jonel Hemphill MD [facility]-80772 Level 2 Est. Patient 15:14:15 PIE BAKER Mayco Shah APRN [facility] CPT-31020 Level 4 Est. Patient 10:36:22 PIE BAKER Jonel Hemphill MD [facility] CPT-64217 Level 4 Est. Patient 22:01:13 PIE BAKER Jonel Hemphill MD [facility]-16775 Level 3 Est. Patient 21:50:37 PIE BAKER Jonel Hemphill MD [facility] CPT-21392 Level 4 Est. Patient 15:02:43 CDT Rubin Pierre MD [facility] CPT-54556 Level 4 Est. Patient 14:27:35 CDT Jonel Hemphill MD [facility] CPT-91411 Level 4 Est. Patient 12:41:17 CDT Jonel Hemphill MD [facility]-50396 Level 4 Est. Patient 16:18:55 CDT Jonel Hemphill MD [facility] CPT-03449 Level 4 Est. Patient 17:58:05 CDT Jonel Hemphill MD [facility]-79512 Level 4 Est. Patient 22:10:06 CDT Jonel Hemphill MD [facility] CPT-61873 Level 4 Est. Patient 13:22:09 CDT Jonel Hemphill MD [facility] CPT-61103 Level 4 Est. Patient 22:52:17 PIE BAKER Jonel Hemphill MD [facility] CPT-28646 Level 3 Est. Patient 22:34:10 PIE BAKER Jonel Hemphill MD [facility] CPT-59162 Level 4 Est. Patient 07:49:20 PIE BAKER Jonel Hemphill MD [facility] Skilled CPT-73298 Level 3 Est. Patient 08:28:27 PIE BAKER Jonel Hemphill MD [facility] Procedures Code Procedure Name Date Entry Date Standard Description CPT-77914 Level 3 Intermediate 17:35:26 PIE BAKER CPT-64250 Level 3 Intermediate 18:44:49 PIE BAKER CPT-56896 Level 3 Intermediate 18:17:33 CDT CPT-35904 Level 3 Intermediate 09:25:33 CDT CPT-76874 Level 3 Intermediate 19:11:57 CDT CPT-87304 Level 3 Intermediate 09:25:52 CDT CPT-80105 Level 3 Intermediate 14:23:59 CDT CPT-60742 Level 3 Intermediate 12:09:43 CDT CPT-85741 Level 3 Intermediate 09:37:40 CDT CPT-00160 Level 3 Intermediate 18:23:02 CDT CPT-95338 Level 3 Intermediate 14:09:06 CDT CPT-71901 Level 3 Intermediate 12:43:27 PIE BAKER CPT-90124 Postop F/U Visit 14:10:15 PIE BAKER CPT-56338 Sono Soft Tissue Head and Neck 17:07:14 PIE BAKER CPT-24343 Level 3 Intermediate 16:14:37 PIE BAKER CPT-87409 Port a cath flush 11:47:42 CDT CPT-29815 Port a cath flush 08:29:49 CDT CPT-OV Office Visit 14:27:58 PIE BAKER
--- OUTSIDE RECORDS SUMMARY | 2016-08-07 11:58 | XMS REPORT ---
Author Author [facility] Medical Staff Organization [facility] Address [address], [place] [address] Phone [phone] Care Team Providers Care Air Twister Winder Name Role Phone FRANKO PRIETO MD PP [phone] Summary purpose TRANSITION OF CARE AUTO GENERATION [...]
--- OUTSIDE RECORDS SUMMARY | 2016-08-07 12:00 | XMS REPORT ---
Author Author [facility] Medical Staff Organization [facility] Address [address], [place] [address] Phone [phone] Care Team Providers Care Windshield Wiper Repairer Name Role Phone FRANKO PRIETO MD PP [phone] Summary purpose TRANSITION OF CARE AUTO GENERATION [...] diagnostic tests and/or laboratory data RESULTS Chemistry [id number]:41:00 Result Normal Range Units Sodium 141 134-145 mEq/l Potassium 4.0 3.5-5.1 mEq/l Chloride 101 98-107 mEq/l CO2 H 30.7 22-28 mEq/l Glucose H 163 70-105 mg/dl BUN H 19 7-18 mg/dl Creatinine 1.02 0.6-1.3 mg/dl Calcium 9.3 8.4-10.2 mg/dl PO4 L 0.1 1.9-4.5 mg/dl Albumin 3.6 3.5-5 g/dl Osmolality 287.1 280-300 mOsm/L Anion GAP 9.3 8-16 BUN/Creatinine Ratio 18.6 10-20 Estimated GFR 76 >=60 mL/min/1.7 History of procedures Procedure Code Code Type Description Date Performed Performing Physician 10655 CPT-4 RENAL FUNCTION PANEL 01-02-2014 WINSTON CORTEZ Functional status No functional or cognitive status [...]
--- OUTSIDE RECORDS SUMMARY | 2016-08-07 12:00 | XMS REPORT | Clinical Summary ---
Author Author Admin, KARLAE Organization [facility] Address Unknown Phone Unavailable Allergies, Adverse Reactions, Alerts Allergy Name Reaction Description Start Date Severity Status Provider PENICILLIN Critical Active Freeportjaida Giles RMA Conditions or Problems Problem Name [...] MD Benign essential hypertension 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 USE, CHIEF INFORMATION OFFICER V58.69 Resolved Jonel Hemphill MD Long-term [...] (cerebrovascular) FAMILY HISTORY COLON CANCER-MOTHER V16.0 Resolved Joenl Hemphill MD Family history of malignant neoplasm [...] disease, unspecified RENAL FAILURE, CHRONIC 585.9 Active oJnel Hemphill MD Chronic kidney disease, unspecified CHRONIC [...] abscess of leg, except foot 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 USE, CHIEF INFORMATION OFFICER ICD-V58.69 Inactive Jonel Hemphill MD DIABETES, [...] ORAL TABS 1 daily for gout. FEBUXOSTAT 11488552653 Active Marleni Romero Active HYDROCODONE-ACETAMINOPHEN 7.5-325 MG TABS 1 TAB PO Q 6 HRS PRN HYDROCODONE-ACETAMINOPHEN 31330488648 Active Jonel Hemphill MD Active METFORMIN HCL 1000 MG TABS 1 tablet by mouth twice daily METFORMIN HCL 87221434260 Active Marleni Romero Active FENTANYL 12 MCG/HR PT72 Apply to clean, dry skin and change every 72 hours FENTANYL 80597900529 Active Mattie Gates APRN Active KLOR-CON 20 MEQ ORAL PACK 1 BY MOUTH DAILY POTASSIUM CHLORIDE 93696180415 Active Marleni Romero Active A+D FIRST AID EXT OINT APPLY OINTMENT AND RUFINO WRAPS TO LOWER EXTEREMETIES DAILY SKIN PROTECTANTS, MISC. 08512731396 Active Jonel Hemphill MD Active NYSTATIN 746337 UNIT/GM EXT OINT APPLY PRN TID TO GAULDING/RASH IN ABDOMINAL FOLDS NYSTATIN 41360667135 Active Jonel Hemphill MD Active ATIVAN 0.5 MG TABS Take 1 tablet 2x daily PRN LORAZEPAM 50794023803 Active Jonel Hemphill MD Active GABAPENTIN 400 MG ORAL CAPS 1 TAB BY MOUTH THREE TIMES DAILY GABAPENTIN 59908609887 Active Jonel Hemphill MD Active GABAPENTIN 300 MG CAPS 1 CAP PO TID GABAPENTIN 83967422460 No Longer Active Jonel Hemphill MD Active DILANTIN 100 MG ORAL CAPS 1 THREE TIMES DAILY FOR SEIZURES PHENYTOIN SODIUM EXTENDED 60242198263 Active Marleni Romero Active CPAP APPLY AT HS CPAP Active Jonel Hemphill MD Active METOPROLOL TARTRATE 50 MG ORAL TABS 1 TAB BY MOUTH TWICE DAILY METOPROLOL TARTRATE 60891915363 Active Jonel Hemphill MD Active LISINOPRIL 40 MG TABS 1 tablet by mouth twice daily, for blood pressure 03/31 LISINOPRIL 06397806576 Active Jonel Hemphill MD Active BUPROPION HCL ER (SR) 150 MG [id number] 1 twice a day for depression BUPROPION HCL 77416322248 Active Jonel Hemphill MD Active MULTIVITAMINS CAPS 1 DAILY MULTIPLE VITAMIN 90687327293 Active Jonel Hemphill MD Active ZYLOPRIM 300 MG TAB 1 BY MOUTH DAILY ALLOPURINOL 01807771270 Active Jonel Hemphill MD Active HYDROCODONE-ACETAMINOPHEN 7.5-325 MG TABS 1 q 6 hrs prn HYDROCODONE-ACETAMINOPHEN 48655099403 No Longer Active Jonel Hemphill MD Active DILANTIN 100 MG CAPS 3 cap tid PHENYTOIN SODIUM EXTENDED 60018608506 No Longer Active Jonel Hemphill MD Active BUDEPRION SR 150 MG [id number] 1 bid BUPROPION HCL 35100807421 No Longer Active Jonel Hemphill MD Active ALLOPURINOL 300 MG TABS 1 qd ALLOPURINOL 12162077750 No Longer Active Jonel Hemphill MD Active COZAAR 100 MG TABS 1 qd LOSARTAN POTASSIUM 13571053960 No Longer Active Jonel Hemphill MD Active CVS VITAMIN C 500 MG TABS 1 po daily ASCORBIC ACID 39284262852 No Longer Active Jonel Hemphill MD Active MIRALAX POWD 17 gms in 4 oz water or juice daily POLYETHYLENE GLYCOL 3350 17052795919 No Longer Active Jonel Hemphill MD Active POTASSIUM CHLORIDE CHELA ER 20 MEQ CR-TABS 1 tab PO daily POTASSIUM CHLORIDE CHELA CR 84294734908 No Longer Active Jonel Hemphill MD Active AMBIEN 10 MG TAB 1 tab by mouth at bedtime as needed for sleep ZOLPIDEM TARTRATE 88675007630 No Longer Active Jonel Hemphill MD Active SULFAMETHOXAZOLE-TMP DS 800-160 MG TABS 1 TAB PO BID SULFAMETHOXAZOLE-TRIMETHOPRIM 06538020502 No Longer Active Jonel Hemphill MD Active NORCO 5-325 MG TABS 1-2 TAB Q 6 HRS PRN HYDROCODONE- ACETAMINOPHEN 10696990755 Active Jonel Hemphill MD Active LEVEMIR 100 UNIT/ML SOLN 5 units sub-q at bedtime INSULIN DETEMIR 24871274941 No Longer Active Tova Perez Active MOBIC 15 MG TABS 1 tab PO daily for arthritis pain MELOXICAM 79632198232 No Longer Active Tova Perez Active GLUCAGEN 1 MG SOLR INJECT 1MG IM IF BS LESS THAN 60 & RES. IS UNABLE TO SWALLOW GLUCAGON HCL (RDNA) 26446367312 No Longer Active Tova Perez Active CVS MILK OF MAGNESIA 1200 MG/15ML SUSP 30 ml daily for constipation MAGNESIUM HYDROXIDE 69610313558 No Longer Active Tova Perez Active IMDUR 120 MG [id number] 1 qd ISOSORBIDE MONONITRATE 18933570767 No Longer Active Tova Perez Active PHENYTOIN 50 MG CHEW 1 TAB PO BID PHENYTOIN 88262806418 Active Tova Perez Active MECLIZINE HCL 25 MG CHEW TAB 1 four times a day as needed for dizziness 02/21 MECLIZINE HCL 72646626508 Active Tova Perez Active NEURONTIN 400 MG CAPS Take one by mouth 3 times daily, morning, afternoon and evening.] GABAPENTIN 70717429307 No Longer Active Tova Perez Active ANTIVERT 25 MG TABS 1 q 6 hrs prn MECLIZINE HCL 96120211794 No Longer Active Jonel Hemphill MD Active CLONIDINE HCL 0.2 MG TABS 1 q 8 hrs as needed -greater than 160-htn CLONIDINE HCL 71386015755 No Longer Active Jonel Hemphill MD Active AMBIEN 10 MG TABS 1 q hs prn ZOLPIDEM TARTRATE 24536334364 No Longer Active Jonel Hemphill MD Active GNP THERAPEUTIC-M TABS 1 qd MULTIPLE VITAMINS- MINERALS 04131587660 No Longer Active Jonel Hemphill MD Active METOPROLOL TARTRATE 50 MG TABS 1 bid METOPROLOL TARTRATE 41822359701 No Longer Active Jonel Hemphill MD Active METFORMIN HCL 500 MG TABS 1 bod with food METFORMIN HCL 83021101598 No Longer Active Jonel Hemphill MD Active LISINOPRIL 40 MG TABS 1 qd LISINOPRIL 35978003420 No Longer Active Jonel Hemphill MD Active HYDROCHLOROTHIAZIDE 25 MG TABS 1 qd HYDROCHLOROTHIAZIDE 95684232246 No Longer Active Jonel Hemphill MD Active DURAGESIC-25 25 MCG/HR PT72 place 1 patch on the skin q72hrs for pain FENTANYL 81718228442 No Longer Active Jonel Hemphill MD Active FENTANYL 75 MCG/HR PT72 place 1 patch on skin q72hrs fr pain 2012 FENTANYL 27607845637 No Longer Active Jonel Hemphill MD Active LASIX 20 MG TABS 1 tab PO q morning FUROSEMIDE 06628656457 Active Jonel Hemphill MD Active FUROSEMIDE 40 MG TABS 1 q am FUROSEMIDE 43883064266 No Longer Active Jonel Hemphill MD Active HEPARIN (PORCINE) LOCK FLUSH 100 UNIT/ML SOLN Flush port a cath monthly every three week on with Heparin and NS HEPARIN LOCK FLUSH 59880202740 Active Jonel Hemphill MD Active FENTANYL 100 MCG/HR PT72 Apply every 3 days FENTANYL 46978781761 Active Mattie Gates APRN Active FENTANYL 25 MCG/HR PT72 Apply to clean skin and change every 72 hours. 07/03 FENTANYL 67337667984 No Longer Active Jonel Hemphill MD Active FENTANYL 50 MCG/HR PT72 place 1 patch on skin q72 hours FENTANYL 49601109427 No Longer Active Mayco Shah APRN Active CELEXA 20 MG TABS Take 1 tablet 1x daily CITALOPRAM HYDROBROMIDE 19605508765 Active Jonel Hemphill MD Active DURAGESIC-12 12 MCG/HR PT72 APPLY PATCH TO SKIN AND CHANGE EVERY 72 HOURS, ROTATE SITES FENTANYL 43115438141 No Longer Active Fozia HERNANDEZ Active FUROSEMIDE 20 MG TABS 1 qd FUROSEMIDE 40694335462 No Longer Active Mahogany [place] Active ADULT ASPIRIN EC LOW STRENGTH 81 MG TBEC 1 qd ASPIRIN 80478603021 Active MARY Perez Active FUROSEMIDE 20 MG TABS 1 qd FUROSEMIDE 20 MG TABS 595128 FUROSEMIDE Inactive DURAGESIC-12 12 MCG/HR PT72 APPLY PATCH TO SKIN AND CHANGE EVERY 72 HOURS, ROTATE SITES DURAGESIC-12 12 MCG/HR PT72 102094 FENTANYL Inactive FENTANYL 50 MCG/HR PT72 place 1 patch on skin q72 hours FENTANYL 50 MCG/HR PT72 749966 FENTANYL Inactive FUROSEMIDE 40 MG TABS 1 q am FUROSEMIDE 40 MG TABS 947446 FUROSEMIDE Inactive FENTANYL 75 MCG/HR PT72 place 1 patch on skin q72hrs fr pain 2012 FENTANYL 75 MCG/HR PT72 144211 FENTANYL Inactive DURAGESIC-25 25 MCG/HR PT72 place 1 patch on the skin q72hrs for pain DURAGESIC-25 25 MCG/HR PT72 955214 FENTANYL Inactive HYDROCHLOROTHIAZIDE 25 MG TABS 1 qd HYDROCHLOROTHIAZIDE 25 MG TABS 568386 HYDROCHLOROTHIAZIDE Inactive LISINOPRIL 40 MG TABS 1 qd LISINOPRIL 40 MG TABS 950648 LISINOPRIL Inactive METFORMIN HCL 500 MG TABS 1 bod with food METFORMIN HCL 500 MG TABS 800846 METFORMIN HCL Inactive METOPROLOL TARTRATE 50 MG TABS 1 bid METOPROLOL TARTRATE 50 MG TABS 449997 METOPROLOL TARTRATE Inactive GNP THERAPEUTIC-M TABS 1 qd GNP THERAPEUTIC-M TABS MULTIPLE VITAMINS-MINERALS Inactive AMBIEN 10 MG TABS 1 q hs prn AMBIEN 10 MG TABS 192919 ZOLPIDEM TARTRATE Inactive CLONIDINE HCL 0.2 MG TABS 1 q 8 hrs as needed -greater than 160-htn CLONIDINE HCL 0.2 MG TABS 209215 CLONIDINE HCL Inactive ANTIVERT 25 MG TABS 1 q 6 hrs prn ANTIVERT 25 MG TABS MECLIZINE HCL Inactive NEURONTIN 400 MG CAPS Take one by mouth 3 times daily, morning, afternoon and evening.] NEURONTIN 400 MG CAPS 412844 GABAPENTIN Inactive IMDUR 120 MG [id number] 1 qd IMDUR 120 MG [id number] ISOSORBIDE MONONITRATE Inactive CVS MILK OF MAGNESIA [...] for arthritis pain MOBIC 15 MG TABS 246763 MELOXICAM Inactive LEVEMIR 100 UNIT/ML SOLN 5 units sub-q at bedtime LEVEMIR 100 UNIT/ML SOLN INSULIN DETEMIR Inactive SULFAMETHOXAZOLE-TMP DS 800-160 MG TABS 1 TAB PO BID SULFAMETHOXAZOLE-TMP DS 800-160 MG TABS 160660 SULFAMETHOXAZOLE-TRIMETHOPRIM Inactive AMBIEN 10 MG TAB 1 tab by mouth at bedtime as needed for sleep AMBIEN 10 MG TAB 625509 ZOLPIDEM TARTRATE Inactive POTASSIUM CHLORIDE CHELA ER 20 MEQ CR-TABS 1 tab PO daily POTASSIUM CHLORIDE CHELA ER 20 MEQ CR-TABS POTASSIUM CHLORIDE CHELA CR Inactive MIRALAX POWD 17 gms in 4 oz water or juice daily MIRALAX POWD 254795 POLYETHYLENE GLYCOL 3350 Inactive CVS VITAMIN C 500 MG TABS 1 po daily CVS VITAMIN C 500 MG TABS 842089 ASCORBIC ACID Inactive COZAAR 100 MG TABS 1 qd COZAAR 100 MG TABS 436198 LOSARTAN POTASSIUM Inactive ALLOPURINOL 300 MG TABS 1 qd ALLOPURINOL 300 MG TABS 423739 ALLOPURINOL Inactive BUDEPRION SR 150 MG [id number] 1 bid BUDEPRION SR 150 MG [id number] BUPROPION HCL Inactive DILANTIN 100 MG CAPS 3 cap tid DILANTIN 100 MG CAPS 015995 PHENYTOIN SODIUM EXTENDED Inactive HYDROCODONE-ACETAMINOPHEN 7.5-325 MG TABS 1 q 6 hrs prn HYDROCODONE-ACETAMINOPHEN 7.5-325 MG TABS 098340 HYDROCODONE- ACETAMINOPHEN Inactive GABAPENTIN 300 MG CAPS 1 CAP PO TID GABAPENTIN 300 MG CAPS 969130 GABAPENTIN Inactive FENTANYL 25 MCG/HR PT72 Apply to clean skin and change every 72 hours. 07/03 FENTANYL 25 MCG/HR PT72 087885 FENTANYL Inactive Advance Directives Directive Description Start [...] 4.3-6.0 Encounters Code Encounter Date Provider Facility CPT-73208 Level 3 Est. Patient 18:04:07 CDT Jonel Hemphill MD [facility] CPT-19365 Level 3 Est. Patient 17:18:03 CDT Jonel Hemphill MD [facility] CPT-38012 Level 3 Est. Patient 21:58:03 MOVIE MACHINE OPERATOR Jonel Hemphill MD [facility] CPT-30229 Level 4 Est. Patient 18:03:14 CDT Jonel Hemphill MD [facility]-28553 Level 4 Est. Patient 13:24:53 CDT Jonel Hemphill MD [facility]-23658 Level 4 Est. Patient 09:15:44 CDT Jonel Hemphill MD [facility]-10595 Level 4 Est. Patient 19:16:01 CDT Jonel Hemphill MD [facility]-20975 Level 4 Est. Patient 11:25:16 CDT Jonel Hemphill MD [facility]-28477 Level 4 Est. Patient 09:00:40 CDT Jonel Hemphill MD [facility]-36411 Level 4 Est. Patient 14:53:58 CDT Jonel Hemphill MD [facility] CPT-35641 Level 4 Est. Patient 22:59:01 CDT Jonel Hemphill MD [facility]-32886 Level 4 Est. Patient 09:29:57 CDT Jonel Hemphill MD [facility]-60050 Level 4 Est. Patient 12:35:53 MOVIE MACHINE OPERATOR Jonel Hemphill MD [facility]-05719 Level 4 Est. Patient 22:36:09 MOVIE MACHINE OPERATOR Jonel Hemphill MD [facility] CPT-09413 Level 2 Est. Patient 15:14:15 MOVIE MACHINE OPERATOR Mayco Shah APRN [facility] CPT-29977 Level 4 Est. Patient 10:36:22 MOVIE MACHINE OPERATOR Jonel Hemphill MD [facility] CPT-41337 Level 4 Est. Patient 22:01:13 MOVIE MACHINE OPERATOR Jonel Hemphill MD [facility]-96221 Level 3 Est. Patient 21:50:37 MOVIE MACHINE OPERATOR Jonel Hemphill MD [facility] CPT-56863 Level 4 Est. Patient 15:02:43 CDT Rubin Pierre MD [facility] CPT-27128 Level 4 Est. Patient 14:27:35 CDT Jonel Hemphill MD [facility]-93136 Level 4 Est. Patient 12:41:17 CDT Jonel Hemphill MD [facility]-24976 Level 4 Est. Patient 16:18:55 CDT Jonel Hmephill MD [facility]-49513 Level 4 Est. Patient 17:58:05 CDT Jonel Hemphill MD [facility]-01997 Level 4 Est. Patient 22:10:06 CDT Jonel Hemphill MD [facility]-34103 Level 4 Est. Patient 13:22:09 CDT Jonel Hemphill MD [facility]-20210 Level 4 Est. Patient 22:52:17 MOVIE MACHINE OPERATOR Jonel Hemphill MD [facility]-90371 Level 3 Est. Patient 22:34:10 MOVIE MACHINE OPERATOR Jonel Hemphill MD [facility]-54043 Level 4 Est. Patient 07:49:20 MOVIE MACHINE OPERATOR Jonel Hemphill MD [facility] CPT-76069 Level 3 Est. Patient 08:28:27 MOVIE MACHINE OPERATOR Jonel Hemphill MD [facility] Procedures Code Procedure Name Date Entry Date Standard Description CPT-45422 Level 3 Detention 17:42:11 CDT CPT-33914 Level 3 Detention 16:04:10 CDT CPT-90347 Level 3 Detention 19:38:15 MOVIE MACHINE OPERATOR CPT-88512 Level 3 Detention 19:28:48 MOVIE MACHINE OPERATOR CPT-54535 Level 3 Detention 18:02:20 MOVIE MACHINE OPERATOR CPT-08194 Level 3 Detention 15:02:14 MOVIE MACHINE OPERATOR CPT-95109 Level 3 Detention 12:25:37 CDT CPT-16701 Level 3 Detention 12:48:39 CDT CPT-79630 Level 3 Detention 17:39:14 CDT CPT-20484 Level 3 Detention 13:32:58 CDT CPT-79249 Level 3 Detention 17:43:43 CDT CPT-73712 Level 3 Detention 12:03:33 MOVIE MACHINE OPERATOR CPT-65014 Level 3 Detention 18:47:28 MOVIE MACHINE OPERATOR CPT-52120 Level 3 Detention 17:35:26 MOVIE MACHINE OPERATOR CPT-74987 Level 3 Detention 18:44:49 MOVIE MACHINE OPERATOR CPT-35964 Level 3 Detention 18:17:33 CDT CPT-22089 Level 3 Detention 09:25:33 CDT CPT-70443 Level 3 Detention 19:11:57 CDT CPT-54841 Level 3 Detention 09:25:52 CDT CPT-18328 Level 3 Detention 14:23:59 CDT CPT-77383 Level 3 Detention 12:09:43 CDT CPT-86600 Level 3 Detention 09:37:40 CDT CPT-47733 Level 3 Detention 18:23:02 CDT CPT-75100 Level 3 Detention 14:09:06 CDT CPT-56368 Level 3 Detention 12:43:27 MOVIE MACHINE OPERATOR CPT-17033 Postop F/U Visit 14:10:15 MOVIE MACHINE OPERATOR CPT-19243 [facility] 17:07:14 MOVIE MACHINE OPERATOR CPT-93818 Level 3 Detention 16:14:37 MOVIE MACHINE OPERATOR CPT-53406 Port a cath flush 11:47:42 CDT CPT-21921 Port a cath flush 08:29:49 CDT CPT-OV Office Visit 14:27:58 MOVIE MACHINE OPERATOR
--- OUTSIDE RECORDS SUMMARY | 2016-08-07 12:01 | XMS REPORT | Clinical Summary ---
Author Author Admin, [employer] Organization [facility] Address Unknown Phone Allergies, Adverse Reactions, Alerts Allergy Name Reaction Description Start Date Severity Status Provider PENICILLIN Critical Active [place] Conditions or Problems Problem Name Problem Code Onset Date Status Entry Date Provider Comment Standard Description Annotate DIABETES MELLITUS, TYPE II, CONTROLLED 250.00 Active Jonel Hemphill MD Diabetes mellitus without mention of complication, type II or unspecified type, not stated as uncontrolled MORBID OBESITY 278.01 Active Jonel Hemphill MD Morbid obesity HYPERTENSION 401.1 Active Jonel Hemphill MD Benign essential hypertension 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 USE, PENITENTIARY V58.69 Resolved Jonel Hemphill MD Long-term (current) use of other medications C V A / STROKE 436 Active [place] Tisha Acute, but ill- defined, cerebrovascular disease C O P D 496 Active [place] Chronic airway obstruction, not elsewhere classified DIABETES, TYPE 2 250.00 Resolved Jonel Hemphill MD Diabetes mellitus without mention of complication, type II or unspecified type, not stated as uncontrolled SEIZURE DISORDER 780.39 Active [place] Other convulsions CORONARY HEART DISEASE 414.00 Resolved [...] MD Dermatophytosis of the body 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 USE, PENITENTIARY ICD-V58.69 Inactive Jonel Hemphill [...] Jonel Hemphill MD TREMOR ICD-781.0 Inactive Jonel Hempihll MD 05/30 FITTING AND ADJUSTMENT OF VASCULAR [...] TAB Q 6 HRS PRN HYDROCODONE- ACETAMINOPHEN 18237102339 Active Jonel Hemphill MD Active LEVEMIR 100 UNIT/ML SOLN 5 units sub-q at bedtime INSULIN DETEMIR 87039177688 No Longer Active Tova Perez Active MOBIC 15 MG TABS 1 tab PO daily for arthritis pain MELOXICAM 35128670759 No Longer Active Tova Perez Active GLUCAGEN 1 MG SOLR INJECT 1MG IM IF BS LESS THAN 60 & RES. IS UNABLE TO SWALLOW GLUCAGON HCL (RDNA) 88619215046 No Longer Active Tova Perez Active [facility] MILK OF MAGNESIA 1200 MG/15ML SUSP 30 ml daily for constipation MAGNESIUM HYDROXIDE 91208527189 No Longer Active Tova Perez Active IMDUR 120 MG [id number] 1 qd ISOSORBIDE MONONITRATE 44904784786 No Longer Active Tova Perez Active METFORMIN HCL 500 MG TABS 1 tablet by mouth twice daily METFORMIN HCL 74538184333 Active Tova Perez Active SULFAMETHOXAZOLE-TMP DS 800-160 MG TABS 1 TAB PO BID SULFAMETHOXAZOLE-TRIMETHOPRIM 81003238669 Active Tova Perez Active PHENYTOIN 50 MG CHEW 1 TAB PO BID PHENYTOIN 14178191408 Active Tova Perez Active MECLIZINE HCL 25 MG CHEW TAB 1 four times a day as needed for dizziness 02/21 MECLIZINE HCL 05399860981 Active Tova Perez Active GABAPENTIN 300 MG CAPS 1 CAP PO TID GABAPENTIN 50611184711 Active Tova Perez Active NEURONTIN 400 MG CAPS Take one by mouth 3 times daily, morning, afternoon and evening.] GABAPENTIN 29198443789 No Longer Active Tova Perez Active AMBIEN 10 MG TAB 1 tab by mouth at bedtime as needed for sleep ZOLPIDEM TARTRATE 08067814095 Active Jonel Hemphill MD Active POTASSIUM CHLORIDE CHELA ER 20 MEQ CR-TABS 1 tab PO daily POTASSIUM CHLORIDE CHELA CR 04194454350 Active Joenl Hemphill MD Active ANTIVERT 25 MG TABS 1 q 6 hrs prn MECLIZINE HCL 84680488540 No Longer Active Jonel Hemphill MD Active CLONIDINE HCL 0.2 MG TABS 1 q 8 hrs as needed -greater than 160-htn CLONIDINE HCL 07103597190 No Longer Active Jonel Hemphill MD Active AMBIEN 10 MG TABS 1 q hs prn ZOLPIDEM TARTRATE 58044649121 No Longer Active Jonel Hemphill MD Active GNP THERAPEUTIC-M TABS 1 qd MULTIPLE VITAMINS- MINERALS 34964895344 No Longer Active Jonel Hemphill MD Active METOPROLOL TARTRATE 50 MG TABS 1 bid METOPROLOL TARTRATE 72886030501 No Longer Active Jonel Hemphill MD Active METFORMIN HCL 500 MG TABS 1 bod with food METFORMIN HCL 50781349754 No Longer Active oJnel Hemphill MD Active LISINOPRIL 40 MG TABS 1 qd LISINOPRIL 46778772045 No Longer Active Jonel Hemphill MD Active HYDROCHLOROTHIAZIDE 25 MG TABS 1 qd HYDROCHLOROTHIAZIDE 85230747387 No Longer Active Jonel Hemphill MD Active DURAGESIC-25 25 MCG/HR PT72 place 1 patch on the skin q72hrs for pain FENTANYL 85580830492 No Longer Active Jonel Hemphill MD Active FENTANYL 75 MCG/HR PT72 place 1 patch on skin q72hrs fr pain 2012 FENTANYL 32361907581 No Longer Active Jonel Hemphill MD Active LASIX 20 MG TABS 1 tab PO q morning FUROSEMIDE 88571930294 Active Jonel Hemphill MD Active FUROSEMIDE 40 MG TABS 1 q am FUROSEMIDE 40248578153 No Longer Active Jonel Hemphill MD Active HEPARIN (PORCINE) LOCK FLUSH 100 UNIT/ML SOLN Flush port a cath monthly every three week on with Heparin and NS HEPARIN LOCK FLUSH 80305564161 Active Jonel Hemphill MD Active FENTANYL 100 MCG/HR PT72 Apply every 3 days FENTANYL 58801015365 Active Jonel Hemphill MD Active FENTANYL 25 MCG/HR PT72 Apply to clean skin and change every 72 hours. 07/03 FENTANYL 36074250896 No Longer Active Jonel Hemphill MD Active FENTANYL 50 MCG/HR PT72 place 1 patch on skin q72 hours FENTANYL 90682928482 No Longer Active Mayco Shah APRN Active HYDROCODONE-ACETAMINOPHEN 7.5-325 MG TABS 1 q 6 hrs prn HYDROCODONE-ACETAMINOPHEN 18754577122 Active Jonel Hemphill MD Active ATIVAN 0.5 MG TABS Take 1 tablet 2x daily LORAZEPAM 91151343207 Active Jonel Hemphill MD Active CELEXA 20 MG TABS Take 1 tablet 1x daily CITALOPRAM HYDROBROMIDE 10180093036 Active Jonel Hemphill MD Active MIRALAX POWD 17 gms in 4 oz water or juice daily POLYETHYLENE GLYCOL 3350 56692291465 Active Rubin Pierre MD Active DURAGESIC-12 12 MCG/HR PT72 APPLY PATCH TO SKIN AND CHANGE EVERY 72 HOURS, ROTATE SITES FENTANYL 99618451125 No Longer Active Fozia YANGA Active [facility] VITAMIN C 500 MG TABS 1 po daily ASCORBIC ACID 19149904542 Active Mahogany Preston Active FUROSEMIDE 20 MG TABS 1 qd FUROSEMIDE 91607490006 No Longer Active Mahogany Preston Active ADULT ASPIRIN EC LOW STRENGTH 81 MG TBEC 1 qd ASPIRIN 66286825292 Active Gregor Tisha Active DILANTIN 100 MG CAPS 3 cap tid PHENYTOIN SODIUM EXTENDED 12670687247 Active [place] Active BUDEPRION SR 150 MG [id number] 1 bid BUPROPION HCL 39178169859 Active Gregor Tisha Active ALLOPURINOL 300 MG TABS 1 qd ALLOPURINOL 81009622789 Active [place] Tisha Active COZAAR 100 MG TABS 1 qd LOSARTAN POTASSIUM 42567876404 Active Gregor Tisha Active FUROSEMIDE 20 MG TABS 1 qd FUROSEMIDE 20 MG TABS 178627 FUROSEMIDE Inactive DURAGESIC-12 12 MCG/HR PT72 APPLY PATCH TO SKIN AND CHANGE EVERY 72 HOURS, ROTATE SITES DURAGESIC-12 12 MCG/HR PT72 694145 FENTANYL Inactive FENTANYL 50 MCG/HR PT72 place 1 patch on skin q72 hours FENTANYL 50 MCG/HR PT72 073961 FENT[place]L Inactive FUROSEMIDE 40 MG TABS 1 q am FUROSEMIDE 40 MG TABS 377112 FUROSEMIDE Inactive FENT[place]L 75 MCG/HR PT72 place 1 patch on skin q72hrs fr pain 2012 FENTANYL 75 MCG/HR PT72 375718 F[place] Inactive DURAGESIC-25 25 MCG/HR PT72 place 1 patch on the skin q72hrs for pain DURAGESIC-25 25 MCG/HR PT72 518463 FENTANYL Inactive HYDROCHLOROTHIAZIDE 25 MG TABS 1 qd HYDROCHLOROTHIAZIDE 25 MG TABS 886700 HYDROCHLOROTHIAZIDE Inactive LISINOPRIL 40 MG TABS 1 qd LISINOPRIL 40 MG TABS 236908 LISINOPRIL Inactive METFORMIN HCL 500 MG TABS 1 bod with food METFORMIN HCL 500 MG TABS 683920 METFORMIN HCL Inactive METOPROLOL TARTRATE 50 MG TABS 1 bid METOPROLOL TARTRATE 50 MG TABS 607620 METOPROLOL TARTRATE Inactive GNP THERAPEUTIC-M TABS 1 qd GNP THERAPEUTIC-M TABS MULTIPLE VITAMINS-MINERALS Inactive AMBIEN 10 MG TABS 1 q hs prn AMBIEN 10 MG TABS 904771 ZOLPIDEM TARTRATE Inactive CLONIDINE HCL 0.2 MG TABS 1 q 8 hrs as needed -greater than 160-htn CLONIDINE HCL 0.2 MG TABS 938378 CLONIDINE HCL Inactive ANTIVERT 25 MG TABS 1 q 6 hrs prn ANTIVERT 25 MG TABS MECLIZINE HCL Inactive NEURONTIN 400 MG CAPS Take one by mouth 3 times daily, morning, afternoon and evening.] NEURONTIN 400 MG CAPS 375919 GABAPENTIN Inactive IMDUR 120 MG [id number] 1 qd IMDUR 120 MG [id number] ISOSORBIDE MONONITRATE Inactive [facility] MILK OF MAGNESIA [...] for arthritis pain MOBIC 15 MG TABS 127313 MELOXICAM Inactive LEVEMIR 100 UNIT/ML SOLN 5 units sub-q at bedtime LEVEMIR 100 UNIT/ML SOLN INSULIN DETEMIR Inactive FENTANYL 25 MCG/HR PT72 Apply to clean skin and change every 72 hours. 07/03 FENTANYL 25 MCG/HR PT72 375171 FENTANYL Inactive Advance Directives Directive Description Start [...] pressure, diastolic - 8462-4 81 mm[Hg] BP uagustin blood pressure, systolic - 8480-6 159 mm[Hg] [...] Panel - Chemistry sodium, serum 137 mmol/L 333-262 9777/06/14 potassium, serum 7.1 mmol/L 3.5-5.2 chloride, serum 107 mmol/L 98-107 carbon dioxide, venous blood 18.7 mmol/L 21.0-32.0 blood glucose 153 mg/dL 65-110 calcium, serum 8.8 mg/dL 8.5-10.1 urea nitrogen, blood 82 mg/dL 7-18 creatinine, serum 2.50 mg/dL 0.60-1.30 sodium, serum 140 mmol/L 152-467 5991/05/31 potassium, serum 5.5 mmol/L 3.5-5.2 chloride, serum 108 mmol/L 98-107 carbon dioxide, venous blood 22.8 mmol/L 21.0-32.0 blood glucose 88 mg/dL 65-110 calcium, serum 9.1 mg/dL 8.5-10.1 urea nitrogen, blood 47 mg/dL 7-18 creatinine, serum 1.70 mg/dL 0.60-1.30 sodium, serum 137 mmol/L 016-425 6232/06/05 potassium, serum 6.5 mmol/L 3.5-5.2 chloride, serum 105 mmol/L 98-107 carbon dioxide, venous blood 22.0 mmol/L 21.0-32.0 blood glucose 132 mg/dL 65-110 calcium, serum 8.7 mg/dL 8.5-10.1 urea nitrogen, blood 71 mg/dL 7-18 creatinine, serum 2.10 mg/dL 0.60-1.30 sodium, serum 141 mmol/L 012-777 8339/07/01 potassium, serum 3.4 mmol/L 3.5-5.2 chloride, serum [...] Negative mg/dL Negative sodium, serum 142 mmol/L 975-123 4929/07/15 potassium, serum 3.9 mmol/L 3.5-5.2 chloride, serum [...] Acid - Chemistry sodium, serum 141 mmol/L 831-191 7209/05/09 potassium, serum 3.9 mmol/L 3.5-5.2 chloride, serum [...] AUTO - Chemistry sodium, serum 140 mmol/L 188-999 6495/02/18 potassium, serum 3.8 mmol/L 3.5-5.2 chloride, serum [...] Acid - Chemistry sodium, serum 141 mmol/L 651-341 6728/06/11 potassium, serum 5.9 mmol/L 3.5-5.2 chloride, serum [...] 10.0-20.0 Encounters Code Encounter Date Provider Facility CPT-32981 Level 3 Est. Patient 17:18:03 CDT Jonel Hemphill MD [facility] CPT-93099 Level 3 Est. Patient 21:58:03 [employer] Jonel Hemphill MD [facility] CPT-81037 Level 4 Est. Patient 18:03:14 CDT Jonel Yeager [facility]-16943 Level 4 Est. Patient 13:24:53 CDT [facility]-08425 Level 4 Est. Patient 09:15:44 CDT [facility]-89924 Level 4 Est. Patient 19:16:01 CDT Jonel Yeager [facility] CPT-40845 Level 4 Est. Patient 11:25:16 CDT Jonel Hemphill MD [facility] CPT-46475 Level 4 Est. Patient 09:00:40 CDT Jonel Yeager [facility]-72270 Level 4 Est. Patient 14:53:58 CDT Jonel Hemphill MD [facility] CPT-09142 Level 4 Est. Patient 22:59:01 CDT Jonel Hemphill MD [facility]-86636 Level 4 Est. Patient 09:29:57 CDT Jonel Hemphill MD [facility]-83982 Level 4 Est. Patient 12:35:53 [employer] Jonel Hemphill MD [facility]-89904 Level 4 Est. Patient 22:36:09 [employer] Jonel Hemphill MD [facility]-29895 Level 2 Est. Patient 15:14:15 [employer] Mayco Shah APRN [facility] CPT-13540 Level 4 Est. Patient 10:36:22 [employer] Jonel Hemphill MD [facility] CPT-11964 Level 4 Est. Patient 22:01:13 [employer] Jonel Hemphill MD [facility]-36836 Level 3 Est. Patient 21:50:37 [employer] Jonel Hemphill MD [facility] CPT-10591 Level 4 Est. Patient 15:02:43 CDT Rubin Pierre MD [facility] CPT-92024 Level 4 Est. Patient 14:27:35 CDT Jonel Hemphill MD [facility]-52287 Level 4 Est. Patient 12:41:17 CDT Jonel Hemphill MD [facility]-78258 Level 4 Est. Patient 16:18:55 CDT Jonel Hemphill MD [facility]-81251 Level 4 Est. Patient 17:58:05 CDT Jonel Hemphill MD [facility]-41354 Level 4 Est. Patient 22:10:06 CDT Jonel Hemphill MD [facility]-43823 Level 4 Est. Patient 13:22:09 CDT Jonel Hemphill MD [facility]-32417 Level 4 Est. Patient 22:52:17 [employer] Jonel Hemphill MD [facility]-35418 Level 3 Est. Patient 22:34:10 [employer] Jonel Hemphill MD [facility] CPT-66285 Level 4 Est. Patient 07:49:20 [employer] Jonel Hemphill MD [facility] Skilled CPT-20526 Level 3 Est. Patient 08:28:27 [employer] Jonel Hemphill MD [facility] Procedures Code Procedure Name Date Entry Date Standard Description CPT-02389 Level 3 Skilled Nursing 12:09:43 CDT CPT-08006 Level 3 Skilled Nursing 09:37:40 CDT CPT-80397 Level 3 Skilled Nursing 18:23:02 CDT CPT-77324 Level 3 Skilled Nursing 14:09:06 CDT CPT-23628 Level 3 Skilled Nursing 12:43:27 [employer] CPT-50861 Postop F/U Visit 14:10:15 [employer] CPT-82418 [facility] 17:07:14 [employer] CPT-11916 Level 3 Skilled Nursing 16:14:37 [employer] CPT-31779 Port a cath flush 11:47:42 CDT CPT-41557 Port a cath flush 08:29:49 CDT CPT-OV Office Visit 14:27:58 [employer]
--- OUTSIDE RECORDS SUMMARY | 2016-08-07 12:02 | XMS REPORT | Clinical Summary ---
Author Author Admin, KARLAE Organization [facility] Address Unknown Phone Unavailable Allergies, 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, SUPERVISOR SANDING V58.69 Resolved Jonel Hemphill MD Long-term (current) [...] Coronary atherosclerosis of unspecified type of vessel, twin hills or graft FH DIABETES V18.0 Resolved Jonel [...] Coronary atherosclerosis of unspecified type of vessel, twin hills or graft CONSTIPATION 564.00 Resolved Jonel Hemphill [...] other specified site; multiple sites 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 USE, SUPERVISOR SANDING ICD-V58.69 Inactive Jonel Hemphill MD DIABETES, TYPE [...] Hemphill MD VENOUS STASIS ULCER ICD-454.0 Inactive oJnel Hemphill MD RECTAL BLEEDING ICD-569.3 Inactive Jonel [...] TAB Q 6 HRS PRN HYDROCODONE- ACETAMINOPHEN 17100162196 Active Jonel Hemphill MD Active LEVEMIR 100 UNIT/ML SOLN 5 units sub-q at bedtime INSULIN DETEMIR 51294377856 No Longer Active Tova Perez Active MOBIC 15 MG TABS 1 tab PO daily for arthritis pain MELOXICAM 27141249108 No Longer Active Tova Perez Active GLUCAGEN 1 MG SOLR INJECT 1MG IM IF BS LESS THAN 60 & RES. IS UNABLE TO SWALLOW GLUCAGON HCL (RDNA) 24973948438 No Longer Active Tova Perez Active [facility] MILK OF MAGNESIA 1200 MG/15ML SUSP 30 ml daily for constipation MAGNESIUM HYDROXIDE 88103447417 No Longer Active Tova Perez Active IMDUR 120 MG [id number] 1 qd ISOSORBIDE MONONITRATE 75949116987 No Longer Active Tova Perez Active METFORMIN HCL 500 MG TABS 1 tablet by mouth twice daily METFORMIN HCL 95695991157 Active Tova Perez Active SULFAMETHOXAZOLE-TMP DS 800-160 MG TABS 1 TAB PO BID SULFAMETHOXAZOLE-TRIMETHOPRIM 92792741823 Active Tova Perez Active PHENYTOIN 50 MG CHEW 1 TAB PO BID PHENYTOIN 39492988280 Active Tova Perez Active MECLIZINE HCL 25 MG CHEW TAB 1 four times a day as needed for dizziness 02/21 MECLIZINE HCL 65232650486 Active Tova Perez Active GABAPENTIN 300 MG CAPS 1 CAP PO TID GABAPENTIN 40669507797 Active Tova Perez Active NEURONTIN 400 MG CAPS Take one by mouth 3 times daily, morning, afternoon and evening.] GABAPENTIN 10235353586 No Longer Active Tova Perez Active AMBIEN 10 MG TAB 1 tab by mouth at bedtime as needed for sleep ZOLPIDEM TARTRATE 16181553060 Active Jonel Hemphill MD Active POTASSIUM CHLORIDE CHELA ER 20 MEQ CR-TABS 1 tab PO daily POTASSIUM CHLORIDE CHELA CR 85316884958 Active Jonel Hemphill MD Active ANTIVERT 25 MG TABS 1 q 6 hrs prn MECLIZINE HCL 10482407839 No Longer Active Jonel Hemphill MD Active CLONIDINE HCL 0.2 MG TABS 1 q 8 hrs as needed -greater than 160-htn CLONIDINE HCL 07904332559 No Longer Active Jonel Hemphill MD Active AMBIEN 10 MG TABS 1 q hs prn ZOLPIDEM TARTRATE 87012424643 No Longer Active Jonel Hemphill MD Active GNP THERAPEUTIC-M TABS 1 qd MULTIPLE VITAMINS- MINERALS 66824076680 No Longer Active Jonel Hemphill MD Active METOPROLOL TARTRATE 50 MG TABS 1 bid METOPROLOL TARTRATE 90082192778 No Longer Active Jonel Hemphill MD Active METFORMIN HCL 500 MG TABS 1 bod with food METFORMIN HCL 32214752725 No Longer Active Jonel Hemphill MD Active LISINOPRIL 40 MG TABS 1 qd LISINOPRIL 16621604453 No Longer Active Jonel Hemphill MD Active HYDROCHLOROTHIAZIDE 25 MG TABS 1 qd HYDROCHLOROTHIAZIDE 63277136595 No Longer Active Jonel Hemphill MD Active DURAGESIC-25 25 MCG/HR PT72 place 1 patch on the skin q72hrs for pain FENTANYL 93741586195 No Longer Active Jonel Hemphill MD Active FENTANYL 75 MCG/HR PT72 place 1 patch on skin q72hrs fr pain 2012 FENTANYL 61530024749 No Longer Active Jonel Hemphill MD Active LASIX 20 MG TABS 1 tab PO q morning FUROSEMIDE 76670637638 Active Jnoel Hemphill MD Active FUROSEMIDE 40 MG TABS 1 q am FUROSEMIDE 96191283040 No Longer Active Jonel Hemphill MD Active HEPARIN (PORCINE) LOCK FLUSH 100 UNIT/ML SOLN Flush port a cath monthly every three week on with Heparin and NS HEPARIN LOCK FLUSH 65976353693 Active Jonel Hemphill MD Active FENTANYL 100 MCG/HR PT72 Apply every 3 days FENTANYL 86228961299 Active Jonel Hemphill MD Active FENTANYL 25 MCG/HR PT72 Apply to clean skin and change every 72 hours. 07/03 FENTANYL 55988809659 No Longer Active Jonel Hemphill MD Active FENTANYL 50 MCG/HR PT72 place 1 patch on skin q72 hours FENTANYL 56130339455 No Longer Active Mayco Dacostajohnie SCHMID Active HYDROCODONE-ACETAMINOPHEN 7.5-325 MG TABS 1 q 6 hrs prn HYDROCODONE-ACETAMINOPHEN 47731821075 Active Jonel Hemphill MD Active ATIVAN 0.5 MG TABS Take 1 tablet 2x daily LORAZEPAM 18163254426 Active Jonel Hemphill MD Active CELEXA 20 MG TABS Take 1 tablet 1x daily CITALOPRAM HYDROBROMIDE 52836068975 Active Jonel Hemphill MD Active MIRALAX POWD 17 gms in 4 oz water or juice daily POLYETHYLENE GLYCOL 3350 89045205540 Active Rubin Pierre MD Active DURAGESIC-12 12 MCG/HR PT72 APPLY PATCH TO SKIN AND CHANGE EVERY 72 HOURS, ROTATE SITES FENTANYL 55432458710 No Longer Active Fozia HERNANDEZ Active [facility] VITAMIN C 500 MG TABS 1 po daily ASCORBIC ACID 21912616208 Active Mahogany [place] Active FUROSEMIDE 20 MG TABS 1 qd FUROSEMIDE 03256514689 No Longer Active Mahogany [place] Active ADULT ASPIRIN EC LOW STRENGTH 81 MG TBEC 1 qd ASPIRIN 21479860626 Active MARY Perez Active DILANTIN 100 MG CAPS 3 cap tid PHENYTOIN SODIUM EXTENDED 53204317387 Active MARY Perez Active BUDEPRION SR 150 MG [id number] 1 bid BUPROPION HCL 85322743922 Active MARY Perez Active ALLOPURINOL 300 MG TABS 1 qd ALLOPURINOL 71399823356 Active MARY Perez Active COZAAR 100 MG TABS 1 qd LOSARTAN POTASSIUM 95022170408 Active MARY Perez Active FUROSEMIDE 20 MG TABS 1 qd FUROSEMIDE 20 MG TABS 045476 FUROSEMIDE Inactive DURAGESIC-12 12 MCG/HR PT72 APPLY PATCH TO SKIN AND CHANGE EVERY 72 HOURS, ROTATE SITES DURAGESIC-12 12 MCG/HR PT72 483512 FENTANYL Inactive FENTANYL 50 MCG/HR PT72 place 1 patch on skin q72 hours FENTANYL 50 MCG/HR PT72 759145 FENTANYL Inactive FUROSEMIDE 40 MG TABS 1 q am FUROSEMIDE 40 MG TABS 876724 FUROSEMIDE Inactive FENTANYL 75 MCG/HR PT72 place 1 patch on skin q72hrs fr pain 2012 FENTANYL 75 MCG/HR PT72 009401 FENTANYL Inactive DURAGESIC-25 25 MCG/HR PT72 place 1 patch on the skin q72hrs for pain DURAGESIC-25 25 MCG/HR PT72 879893 FENTANYL Inactive HYDROCHLOROTHIAZIDE 25 MG TABS 1 qd HYDROCHLOROTHIAZIDE 25 MG TABS 297632 HYDROCHLOROTHIAZIDE Inactive LISINOPRIL 40 MG TABS 1 qd LISINOPRIL 40 MG TABS 218773 LISINOPRIL Inactive METFORMIN HCL 500 MG TABS 1 bod with food METFORMIN HCL 500 MG TABS 801656 METFORMIN HCL Inactive METOPROLOL TARTRATE 50 MG TABS 1 bid METOPROLOL TARTRATE 50 MG TABS 833022 METOPROLOL TARTRATE Inactive GNP THERAPEUTIC-M TABS 1 qd GNP THERAPEUTIC-M TABS MULTIPLE VITAMINS-MINERALS Inactive AMBIEN 10 MG TABS 1 q hs prn AMBIEN 10 MG TABS 342532 ZOLPIDEM TARTRATE Inactive CLONIDINE HCL 0.2 MG TABS 1 q 8 hrs as needed -greater than 160-htn CLONIDINE HCL 0.2 MG TABS 976657 CLONIDINE HCL Inactive ANTIVERT 25 MG TABS 1 q 6 hrs prn ANTIVERT 25 MG TABS MECLIZINE HCL Inactive NEURONTIN 400 MG CAPS Take one by mouth 3 times daily, morning, afternoon and evening.] NEURONTIN 400 MG CAPS 194659 GABAPENTIN Inactive IMDUR 120 MG [id number] 1 qd IMDUR 120 MG [id number] ISOSORBIDE MONONITRATE Inactive [facility] MILK OF MAGNESIA [...] for arthritis pain MOBIC 15 MG TABS 587048 MELOXICAM Inactive LEVEMIR 100 UNIT/ML SOLN 5 units sub-q at bedtime LEVEMIR 100 UNIT/ML SOLN INSULIN DETEMIR Inactive FENTANYL 25 MCG/HR PT72 Apply to clean skin and change every 72 hours. 07/03 FENTANYL 25 MCG/HR PT72 863909 FENTANYL Inactive Advance Directives Directive Description Start [...] % mean corpuscular hemoglobin, RBC 30.3 pg hematocrit, blood 40.0 % hemoglobin, blood 13.6 g/dL Clinical Lists Update: CBC W/ DIFF, CMP, DILANTIN, PLT, RBCMORPH - Chemistry alanine aminotransferase (SGPT), serum 12 U/L bilirubin, serum, total 0.3 mg/dL sodium, serum 142 mmol/L blood glucose 117 mg/dL alkaline phosphatase, serum 57 U/L urea nitrogen, blood 19 mg/dL calcium, serum 9.7 mg/dL chloride, serum 105 mmol/L carbon dioxide, venous blood 30 mmol/L creatinine, serum 0.66 mg/dL potassium, serum 3.7 mmol/L aspartate aminotransferase (SGOT), serum 12 U/L Clinical Lists Update: CBC W/ DIFF, CMP, DILANTIN, PLT, RBCMORPH - Hematology red blood cell distribution width 16.4 % mean corpuscular hemoglobin, RBC 29.4 pg hemoglobin, blood 13.8 g/dL hematocrit, blood 41.1 % Lab Report: CBC W/ DIFF - Hematology hematocrit, blood 42.8 % hematocrit, blood 42.1 % hematocrit, blood 42.9 % hemoglobin, blood 14.9 g/dL hemoglobin, blood 14.3 g/dL hemoglobin, blood 14.2 g/dL mean corpuscular hemoglobin, RBC 30.5 pg mean corpuscular hemoglobin, RBC 30.1 pg mean corpuscular hemoglobin, RBC 29.3 pg red blood cell distribution width 16.1 % red blood cell distribution width 15.9 % red blood cell distribution width 14.9 % Lab Report: CBC W/ DIFF, BMP - Chemistry blood glucose 121 mg/dL sodium, serum 141 mmol/L potassium, serum 4.1 mmol/L creatinine, serum 0.88 mg/dL chloride, serum 103 mmol/L calcium, serum 9.0 mg/dL carbon dioxide, venous blood 29.8 mmol/L urea nitrogen, blood 15 mg/dL Lab Report: CBC W/ DIFF, BMP - Hematology mean corpuscular volume, RBC 88.9 fL red blood cell distribution width 16.6 % mean corpuscular hemoglobin, RBC 28.7 pg hemoglobin, blood 13.9 g/dL platelet count 126 10*3/mm3 hematocrit, blood 43.1 % erythrocyte (RBC) count 4.9 10*6/mm3 leukocyte count, blood 5.0 10*3/mm3 Lab Report: CBC W/DIFF - Hematology hematocrit, blood 42.2 % 41.0-53.0 hemoglobin, blood 14.4 g/dL 13.5-17.5 platelet count 121 10^3/MM^3 10*3/mm3 582-185 8513/02/18 erythrocyte (RBC) count 4.59 10^6/MM^3 10*6/mm3 4.69-6.13 leukocyte count, blood 6.9 10^3/MM^3 10*3/mm3 4.6-10.2 monocytes as percent of blood leukocytes 7.2 % 1.7-9.3 mean corpuscular hemoglobin, RBC 31.5 pg 27.0-31.2 red blood cell distribution width 15.1 % 11.6-14.8 mean corpuscular volume, RBC 92 fL 80-97 neutrophils as percent of blood leukocytes 64.3 % 42.2-75.2 lymphocytes as percent of blood leukocytes 26.4 % 20.5-51.1 mean corpuscular hemoglobin concentration, RBC 34.2 G/DL % 31.8- 35.4 Lab Report: CBC, Comp. Metabolic Panel, Uric Acid - Chemistry blood glucose 197 mg/dL 65-110 sodium, serum 141 mmol/L 580-236 9975/05/09 bilirubin, serum, total 0.20 mg/dL 0.00-1.00 uric acid, serum 4.8 mg/dL 2.6-7.2 alkaline phosphatase, serum 79 U/L 50-136 urea nitrogen, blood 18 mg/dL 7-18 calcium, serum 9.4 mg/dL 8.5-10.1 chloride, serum 103 mmol/L 98-107 carbon dioxide, venous blood 27.8 mmol/L 21.0-32.0 creatinine, serum 1.10 mg/dL 0.60-1.30 potassium, serum 3.9 mmol/L 3.5-5.2 aspartate aminotransferase (SGOT), serum 9 U/L 15-37 alanine aminotransferase (SGPT), serum 26 U/L 12-78 Lab Report: CBC, Comp. Metabolic Panel, Uric Acid - Hematology mean corpuscular hemoglobin concentration, RBC 33.6 G/DL % 31.8- 35.4 red blood cell distribution width 14.7 % 11.6-14.8 mean corpuscular volume, RBC 96 fL 80-97 mean corpuscular hemoglobin, RBC 32.1 pg 27.0-31.2 hematocrit, blood 43.3 % 41.0-53.0 platelet count 129 Verified By Repeat Analysis 10^3/mm^3 10*3/ mm3 828-608 8549/05/09 erythrocyte (RBC) count 4.53 10^6/MM^3 10*6/mm3 4.69-6.13 hemoglobin, blood 14.5 g/dL 13.5-17.5 leukocyte count, blood 7.3 10^3/MM^3 10*3/mm3 4.6-10.2 Lab Report: CMP, URIC ACID - Chemistry blood glucose 94 mg/dL sodium, serum 142 mmol/L aspartate aminotransferase (SGOT), serum 24 U/L alanine aminotransferase (SGPT), serum 28 U/L creatinine, serum 0.79 mg/dL potassium, serum 4.5 mmol/L alkaline phosphatase, serum 54 U/L Lab Report: Comp. Metabolic Panel, UADIP W/MICRO, AUTO - Chemistry alkaline phosphatase, serum 87 U/L 50-136 calcium, serum 8.4 mg/dL 8.5-10.1 urea nitrogen, blood 14 mg/dL 7-18 carbon dioxide, venous blood 30.3 mmol/L 21.0-32.0 chloride, serum 102 mmol/L 98-107 potassium, serum 3.8 mmol/L 3.5-5.2 creatinine, serum 0.80 mg/dL 0.60-1.30 alanine aminotransferase (SGPT), serum 29 U/L 12-78 aspartate aminotransferase (SGOT), serum 18 U/L 15-37 sodium, serum 140 mmol/L 410-142 1036/02/18 protein, total urine random Negative mg/dL Negative blood glucose 90 mg/dL 65-110 bilirubin, serum, total 0.40 mg/dL 0.00-1.00 RBC, urine, dipstick Negative Negative Lab Report: Comp. Metabolic Panel, UADIP W/MICRO, AUTO - Urinalysis glucose, urine, semiquantitative Negative Negative urine color Yellow Colorless;Lightyellow;Straw;Yellow bilirubin, urine Negative Negative ketones, urine, by test strip Negative Negative nitrite, urine, semiquantitative Negative Negative pH, urine, semiquantitative 6.0 5.0-8.5 specific gravity, urine 1.025 1.000-1.030 urobilinogen, urine, semiquantitative (dipstick) 0.2 Normal leukocyte esterase, urine, by dipstick Negative Negative appearance, urine Clear Clear Encounters Code Encounter Date Provider Facility CPT-80236 Level 3 Est. Patient 18:04:07 CDT Jonel Hemphill MD [facility] CPT-00454 Level 3 Est. Patient 17:18:03 CDT Jonel Hemphill MD [facility]-52701 Level 3 Est. Patient 21:58:03 EVENTS DIRECTOR Jonel Hemphill MD [facility]-66556 Level 4 Est. Patient 18:03:14 CDT Jonel Yeager [facility]-30857 Level 4 Est. Patient 13:24:53 CDT Jonel Yeager [facility]-44976 Level 4 Est. Patient 09:15:44 CDT Jonel Yeager [facility]-77195 Level 4 Est. Patient 19:16:01 CDT Jonel Yeager [facility] CPT-02140 Level 4 Est. Patient 11:25:16 CDT Jonel Hemphill MD [facility] CPT-96198 Level 4 Est. Patient 09:00:40 CDT Jonel Yeager [facility]-72317 Level 4 Est. Patient 14:53:58 CDT Jonel Hemphill MD [facility] CPT-68879 Level 4 Est. Patient 22:59:01 CDT Jonel Hemphill MD [facility]-40443 Level 4 Est. Patient 09:29:57 CDT Jonel Hemphill MD [facility]-65675 Level 4 Est. Patient 12:35:53 EVENTS DIRECTOR Jonel Hemphill MD [facility]-38029 Level 4 Est. Patient 22:36:09 EVENTS DIRECTOR Jonel Hemphill MD [facility]-42400 Level 2 Est. Patient 15:14:15 EVENTS DIRECTOR Mayco Shah APRN [facility] CPT-23649 Level 4 Est. Patient 10:36:22 EVENTS DIRECTOR Jonel Hemphill MD [facility]-64432 Level 4 Est. Patient 22:01:13 EVENTS DIRECTOR Jonel Hemphill MD [facility]-47983 Level 3 Est. Patient 21:50:37 EVENTS DIRECTOR Jonel Hemphill MD [facility]-28397 Level 4 Est. Patient 15:02:43 CDT Rubin Pierre MD [facility] CPT-41997 Level 4 Est. Patient 14:27:35 CDT Jonel Hemphill MD [facility]-42653 Level 4 Est. Patient 12:41:17 CDT Jonel Hemphill MD [facility]-03318 Level 4 Est. Patient 16:18:55 CDT Jonel Hemphill MD [facility]-55535 Level 4 Est. Patient 17:58:05 CDT Jonel Hemphill MD [facility]-60097 Level 4 Est. Patient 22:10:06 CDT Jonel Hemphill MD [facility]-96938 Level 4 Est. Patient 13:22:09 CDT Jonel Hemphill MD [facility]-65066 Level 4 Est. Patient 22:52:17 EVENTS DIRECTOR Jonel Hemphill MD [facility]-79259 Level 3 Est. Patient 22:34:10 EVENTS DIRECTOR Jonel Hemphill MD [facility] CPT-87604 Level 4 Est. Patient 07:49:20 EVENTS DIRECTOR Jonel Hemphill MD [facility] Skilled CPT-38461 Level 3 Est. Patient 08:28:27 EVENTS DIRECTOR Jonel Hemphill MD [facility] Procedures Code Procedure Name Date Entry Date Standard Description CPT-09883 Level 3 Retirement 09:25:52 CDT CPT-53712 Level 3 Retirement 14:23:59 CDT CPT-83527 Level 3 Retirement 12:09:43 CDT CPT-25598 Level 3 Retirement 09:37:40 CDT CPT-73787 Level 3 Retirement 18:23:02 CDT CPT-22360 Level 3 Retirement 14:09:06 CDT CPT-29601 Level 3 Retirement 12:43:27 EVENTS DIRECTOR CPT-41888 Postop F/U Visit 14:10:15 EVENTS DIRECTOR CPT-88920 [facility] [employer] [facility] 17:07:14 EVENTS DIRECTOR CPT-10005 Level 3 Retirement 16:14:37 EVENTS DIRECTOR CPT-91051 Port a cath flush 11:47:42 CDT CPT-03346 Port a cath flush 08:29:49 CDT CPT-OV Office Visit 14:27:58 EVENTS DIRECTOR
--- OUTSIDE RECORDS SUMMARY | 2016-08-07 12:03 | XMS REPORT ---
Author Author [employer] [facility] Medical Staff Organization [facility] Address [address] [place], [place] [id number] Phone [phone] Care Team Providers Care [employer] News Photographer Name Role Phone FRANKO PRIETO MD PP [phone] Summary purpose TRANSITION OF CARE AUTO GENERATION [...] diagnostic tests and/or laboratory data RESULTS Chemistry [id number]:41:00 Result Normal Range Units Sodium 141 134-145 [...] GFR 76 >=60 mL/min/1.7 History of procedures No procedures recorded for [...]
--- OUTSIDE RECORDS SUMMARY | 2016-08-07 12:04 | XMS REPORT | Clinical Summary ---
Author Author Admin, [place] [facility] Address Unknown Phone Allergies, Adverse Reactions, Alerts Allergy Name Reaction Description Start Date Severity Status Provider PENICILLIN Critical Active [place] Conditions or Problems Problem Name Problem Code Onset Date Status Entry Date Provider Comment Standard Description Annotate DIABETES MELLITUS, TYPE II, CONTROLLED 250.00 Active Jonel Hmephill MD Diabetes mellitus without mention of complication, type II or unspecified type, not stated as uncontrolled MORBID OBESITY 278.01 Active Jonel Hemphill MD Morbid obesity HYPERTENSION 401.1 Active Jonel Hemphill MD Benign essential hypertension 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 USE, SHELTER V58.69 Resolved Jonel Hemphill MD Long-term (current) use of other medications C V A / STROKE 436 Active Gregor Tisha Acute, but ill- defined, cerebrovascular disease C O P D 496 Active [place] Tisha Chronic airway obstruction, not elsewhere classified DIABETES, TYPE 2 250.00 Resolved Jonel Hemphill MD Diabetes mellitus without mention of complication, type II or unspecified type, not stated as uncontrolled SEIZURE DISORDER 780.39 Active Gregor Onarga Other convulsions CORONARY HEART DISEASE 414.00 Resolved Jonel Hemphill MD Coronary atherosclerosis of unspecified type of vessel, [place] or graft FH DIABETES V18.0 Resolved Jonel [...] Coronary atherosclerosis of unspecified type of vessel, [place] or graft CONSTIPATION 564.00 Resolved Jonel Hemphill [...] of vascular catheter DEHYDRATION 276.51 Resolved Jonel Hemphlil MD Dehydration RENAL FAILURE, ACUTE 584.9 Resolved [...] Hemphill MD Pain in limb 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 IS UNABLE TO SWALLOW GLUCAGON HCL (RDNA) 64228400574 No Longer Active Tova Perez Active [facility] MILK OF MAGNESIA 1200 MG/15ML SUSP 30 ml daily for constipation MAGNESIUM HYDROXIDE 95695552837 No Longer Active Tova Perez Active IMDUR 120 MG VC05D-LAP 1 qd ISOSORBIDE MONONITRATE 85628326999 No Longer Active Tova Perez Active METFORMIN HCL 500 MG TABS 1 tablet by mouth twice daily METFORMIN HCL 21208926587 Active Tova Chris Active SULFAMETHOXAZOLE-TMP DS 800-160 MG TABS 1 TAB PO BID SULFAMETHOXAZOLE-TRIMETHOPRIM 17403336823 Active Tova Chris Active PHENYTOIN 50 MG CHEW 1 TAB PO BID PHENYTOIN 34821678438 Active Tova Perez Active MECLIZINE HCL 25 MG CHEW TAB 1 four times a day as needed for dizziness 02/21 MECLIZINE HCL 16166052735 Active Tova Chris Active GABAPENTIN 300 MG CAPS 1 CAP PO TID GABAPENTIN 65305144282 Active Tova Chris Active NEURONTIN 400 MG CAPS Take one by mouth 3 times daily, morning, afternoon and evening.] GABAPENTIN 06397751769 No Longer Active Tova Chris Active AMBIEN 10 MG TAB 1 tab by mouth at bedtime as needed for sleep ZOLPIDEM TARTRATE 76204239828 Active Jonel Hemphill MD Active POTASSIUM CHLORIDE CHELA ER 20 MEQ CR-TABS 1 tab PO daily POTASSIUM CHLORIDE CHELA CR 70938318005 Active Jonel Hemphill MD Active ANTIVERT 25 MG TABS 1 q 6 hrs prn MECLIZINE HCL 71449105623 No Longer Active Jonel Hemphill MD Active CLONIDINE HCL 0.2 MG TABS 1 q 8 hrs as needed -greater than 160-htn CLONIDINE HCL 34781269428 No Longer Active Jonel Hemphill MD Active AMBIEN 10 MG TABS 1 q hs prn ZOLPIDEM TARTRATE 27147142390 No Longer Active Jonel Hemphill MD Active GNP THERAPEUTIC-M TABS 1 qd MULTIPLE VITAMINS- MINERALS 60187264504 No Longer Active Jonel Hemphill MD Active METOPROLOL TARTRATE 50 MG TABS 1 bid METOPROLOL TARTRATE 45208409173 No Longer Active Jonel Hemphill MD Active METFORMIN HCL 500 MG TABS 1 bod with food METFORMIN HCL 48281608709 No Longer Active Jonel Hemphill MD Active LISINOPRIL 40 MG TABS 1 qd LISINOPRIL 02716056230 No Longer Active Jonel Hemphill MD Active HYDROCHLOROTHIAZIDE 25 MG TABS 1 qd HYDROCHLOROTHIAZIDE 77749550399 No Longer Active Jonel Hemphill MD Active DURAGESIC-25 25 MCG/HR PT72 place 1 patch on the skin q72hrs for pain FENTANYL 46222934573 No Longer Active Jonel Hemphill MD Active FENTANYL 75 MCG/HR PT72 place 1 patch on skin q72hrs fr pain 2012 FENTANYL 35036906680 No Longer Active Jonel Hemphill MD Active LASIX 20 MG TABS 1 tab PO q morning FUROSEMIDE 38802837727 Active Jonel Hemphill MD Active FUROSEMIDE 40 MG TABS 1 q am FUROSEMIDE 33394235935 No Longer Active Jonel Hemphill MD Active HEPARIN (PORCINE) LOCK FLUSH 100 UNIT/ML SOLN Flush port a cath monthly every three week on with Heparin and NS HEPARIN LOCK FLUSH 63510285649 Active Jonel Hemphill MD Active FENTANYL 100 MCG/HR PT72 Apply every 3 days FENTANYL 48547644468 Active Jonel Hemphill MD Active FENTANYL 25 MCG/HR PT72 Apply to clean skin and change every 72 hours. 07/03 FENTANYL 57903127135 No Longer Active Jonel Hemphill MD Active FENTANYL 50 MCG/HR PT72 place 1 patch on skin q72 hours FENTANYL 97686994287 No Longer Active Mayco Shah APRN Active HYDROCODONE-ACETAMINOPHEN 7.5-325 MG TABS 1 q 6 hrs prn HYDROCODONE-ACETAMINOPHEN 65222716102 Active Jonel Hemphill MD Active ATIVAN 0.5 MG TABS Take 1 tablet 2x daily LORAZEPAM 69922594396 Active Jonel Hemphill MD Active CELEXA 20 MG TABS Take 1 tablet 1x daily CITALOPRAM HYDROBROMIDE 46802268933 Active Jonel Hemphill MD Active MIRALAX POWD 17 gms in 4 oz water or juice daily POLYETHYLENE GLYCOL 3350 15321712802 Active Rubin Pierre MD Active DURAGESIC-12 12 MCG/HR PT72 APPLY PATCH TO SKIN AND CHANGE EVERY 72 HOURS, ROTATE SITES FENTANYL 97595905858 No Longer Active Fozia Amador TREYA Active [facility] VITAMIN C 500 MG TABS 1 po daily ASCORBIC ACID 81378651174 Active [place]og[place] Alpine Active FUROSEMIDE 20 MG TABS 1 qd FUROSEMIDE 84773578139 No Longer Active Mahogany Alpine Active ADULT ASPIRIN EC LOW STRENGTH 81 MG TBEC 1 qd ASPIRIN 61094358551 Active Gregor Giles Active DILANTIN 100 MG CAPS 3 cap tid PHENYTOIN SODIUM EXTENDED 87904940809 Active Gregor Giles Active BUDEPRION SR 150 MG BE50M-XSR 1 bid BUPROPION HCL 24882105865 Active Gregor Giles Active ALLOPURINOL 300 MG TABS 1 qd ALLOPURINOL 64380542562 Active Gregor Giles Active COZAAR 100 MG TABS 1 qd LOSARTAN POTASSIUM 36616713718 Active Gregor Giles Active FUROSEMIDE 20 MG TABS 1 qd FUROSEMIDE 20 MG TABS 601034 FUROSEMIDE Inactive DURAGESIC-12 12 MCG/HR PT72 APPLY PATCH TO SKIN AND CHANGE EVERY 72 HOURS, ROTATE SITES DURAGESIC-12 12 MCG/HR PT72 684851 FENTANYL Inactive FENTANYL 50 MCG/HR PT72 place 1 patch on skin q72 hours FENTANYL 50 MCG/HR PT72 595825 FENTANYL Inactive FUROSEMIDE 40 MG TABS 1 q am FUROSEMIDE 40 MG TABS 716481 FUROSEMIDE Inactive FENTANYL 75 MCG/HR PT72 place 1 patch on skin q72hrs fr pain 2012 FENTANYL 75 MCG/HR PT72 528898 FENTANYL Inactive DURAGESIC-25 25 MCG/HR PT72 place 1 patch on the skin q72hrs for pain DURAGESIC-25 25 MCG/HR PT72 494240 FENTANYL Inactive HYDROCHLOROTHIAZIDE 25 MG TABS 1 qd HYDROCHLOROTHIAZIDE 25 MG TABS 802023 HYDROCHLOROTHIAZIDE Inactive LISINOPRIL 40 MG TABS 1 qd LISINOPRIL 40 MG TABS 595816 LISINOPRIL Inactive METFORMIN HCL 500 MG TABS 1 bod with food METFORMIN HCL 500 MG TABS 667976 METFORMIN HCL Inactive METOPROLOL TARTRATE 50 MG TABS 1 bid METOPROLOL TARTRATE 50 MG TABS 465479 METOPROLOL TARTRATE Inactive GNP THERAPEUTIC-M TABS 1 qd GNP THERAPEUTIC-M TABS MULTIPLE VITAMINS-MINERALS Inactive AMBIEN 10 MG TABS 1 q hs prn AMBIEN 10 MG TABS 826032 ZOLPIDEM TARTRATE Inactive CLONIDINE HCL 0.2 MG TABS 1 q 8 hrs as needed -greater than 160-htn CLONIDINE HCL 0.2 MG TABS 411103 CLONIDINE HCL Inactive ANTIVERT 25 MG TABS 1 q 6 hrs prn ANTIVERT 25 MG TABS MECLIZINE HCL Inactive NEURONTIN 400 MG CAPS Take one by mouth 3 times daily, morning, afternoon and evening.] NEURONTIN 400 MG CAPS 285785 GABAPENTIN Inactive IMDUR 120 MG CF69H-LIP 1 qd IMDUR 120 MG [id number] ISOSORBIDE MONONITRATE Inactive [facility] MILK OF MAGNESIA [...] for arthritis pain MOBIC 15 MG TABS 542807 MELOXICAM Inactive LEVEMIR 100 UNIT/ML SOLN 5 units sub-q at bedtime LEVEMIR 100 UNIT/ML SOLN INSULIN DETEMIR Inactive FENTANYL 25 MCG/HR PT72 Apply to clean skin and change every 72 hours. 07/03 FENTANYL 25 MCG/HR PT72 477910 FENTANYL Inactive Advance Directives Directive Description Start [...] Panel - Chemistry sodium, serum 141 mmol/L 984-139 2039/07/01 potassium, serum 3.4 mmol/L 3.5-5.2 chloride, serum 104 mmol/L 98-107 carbon dioxide, venous blood 27.3 mmol/L 21.0-32.0 blood glucose 101 mg/dL 65-110 calcium, serum 8.9 mg/dL 8.5-10.1 urea nitrogen, blood 15 mg/dL 7-18 creatinine, serum 1.10 mg/dL 0.60-1.30 sodium, serum 141 mmol/L 043-576 7477/05/20 potassium, serum 5.7 mmol/L 3.5-5.2 chloride, serum 108 mmol/L 98-107 carbon dioxide, venous blood 20.4 mmol/L 21.0-32.0 blood glucose 147 mg/dL 65-110 calcium, serum 8.8 mg/dL 8.5-10.1 urea nitrogen, blood 68 mg/dL 7-18 creatinine, serum 2.40 mg/dL 0.60-1.30 sodium, serum 140 mmol/L 071-970 1606/05/31 potassium, serum 5.5 mmol/L 3.5-5.2 chloride, serum 108 mmol/L 98-107 carbon dioxide, venous blood 22.8 mmol/L 21.0-32.0 blood glucose 88 mg/dL 65-110 calcium, serum 9.1 mg/dL 8.5-10.1 urea nitrogen, blood 47 mg/dL 7-18 creatinine, serum 1.70 mg/dL 0.60-1.30 sodium, serum 137 mmol/L 286-380 9687/06/05 potassium, serum 6.5 mmol/L 3.5-5.2 chloride, serum 105 mmol/L 98-107 carbon dioxide, venous blood 22.0 mmol/L 21.0-32.0 blood glucose 132 mg/dL 65-110 calcium, serum 8.7 mg/dL 8.5-10.1 urea nitrogen, blood 71 mg/dL 7-18 creatinine, serum 2.10 mg/dL 0.60-1.30 sodium, serum 137 mmol/L 707-402 6690/06/14 potassium, serum 7.1 mmol/L 3.5-5.2 chloride, serum [...] Panel - Chemistry sodium, serum 138 mmol/L 398-343 8779/05/24 potassium, serum 6.9 mmol/L 3.5-5.2 chloride, serum [...] 0.14 mg/dL 0.00-1.00 sodium, serum 136 mmol/L 145-999 7605/05/17 potassium, serum 6.4 mmol/L 3.5-5.2 chloride, serum [...] ... - Chemistry sodium, serum 142 mmol/L 331-666 7828/07/15 potassium, serum 3.9 mmol/L 3.5-5.2 chloride, serum [...] Acid - Chemistry sodium, serum 141 mmol/L 897-179 5418/05/09 potassium, serum 3.9 mmol/L 3.5-5.2 chloride, serum [...] dipstick Negative Negative sodium, serum 140 mmol/L 379-846 5761/02/18 potassium, serum 3.8 mmol/L 3.5-5.2 chloride, serum [...] Acid - Chemistry sodium, serum 141 mmol/L 292-736 7164/06/11 potassium, serum 5.9 mmol/L 3.5-5.2 chloride, serum [...] 10.0-20.0 Encounters Code Encounter Date Provider Facility CPT-97740 Level 3 Est. Patient 17:18:03 CDT Jonel Hemphill MD [facility] CPT-95619 Level 3 Est. Patient 21:58:03 [employer] Jonel Hemphill MD [facility] CPT-92525 Level 4 Est. Patient 18:03:14 CDT Jonel Yeager [facility]-58600 Level 4 Est. Patient 13:24:53 CDT Jonel Yeager [facility]72934 Level 4 Est. Patient 09:15:44 CDT Jonel Yeager [facility] [place] CPT-29148 Level 4 Est. Patient 19:16:01 CDT [facility]52060 Level 4 Est. Patient 11:25:16 CDT Jonel Hemphill MD [facility] CPT-40472 Level 4 Est. Patient 09:00:40 CDT [facility]-75583 Level 4 Est. Patient 14:53:58 CDT Jonel Hemphill MD [facility] CPT-77328 Level 4 Est. Patient 22:59:01 CDT Jonel Hemphill MD [facility]-86306 Level 4 Est. Patient 09:29:57 CDT Jonel Hemphill MD [facility]-91638 Level 4 Est. Patient 12:35:53 [employer] Jonel Hemphill MD [facility]-91929 Level 4 Est. Patient 22:36:09 [employer] Jonel Hemphill MD [facility]-42948 Level 2 Est. Patient 15:14:15 [employer] Mayco Shah APRN [facility] CPT-32052 Level 4 Est. Patient 10:36:22 [employer] Jonel Hemphill MD [facility] CPT-33508 Level 4 Est. Patient 22:01:13 [employer] Jonel Hemphill MD [facility]-53629 Level 3 Est. Patient 21:50:37 [employer] Jonel Hemphill MD [facility] CPT-11281 Level 4 Est. Patient 15:02:43 CDT Rubin Pierre MD [facility] CPT-77397 Level 4 Est. Patient 14:27:35 CDT Jonel Hemphill MD [facility]-35038 Level 4 Est. Patient 12:41:17 CDT Jonel Hemphill MD [facility]01761 Level 4 Est. Patient 16:18:55 CDT Jonel Hemphill MD [facility] CPT-04977 Level 4 Est. Patient 17:58:05 CDT Jonel Hemphill MD [facility] CPT-82338 Level 4 Est. Patient 22:10:06 CDT Jonel Hemphill MD [facility] CPT-43751 Level 4 Est. Patient 13:22:09 CDT Jonel Hemphill MD [facility] CPT-11186 Level 4 Est. Patient 22:52:17 [employer] Jonel Hemphill MD [facility] CPT-36149 Level 3 Est. Patient 22:34:10 [employer] Jonel Hemphill MD [facility] CPT-04569 Level 4 Est. Patient 07:49:20 [employer] Jonel Hemphill MD [facility] Skilled CPT-35114 Level 3 Est. Patient 08:28:27 [employer] Jonel Hemphill MD [facility] Procedures Code Procedure Name Date Entry Date Standard Description CPT-45790 Level 3 Alf 09:37:40 CDT CPT-03223 Level 3 Alf 18:23:02 CDT CPT-26052 Level 3 Alf 14:09:06 CDT CPT-08075 Level 3 Alf 12:43:27 [employer] CPT-49840 Postop F/U Visit 14:10:15 [employer] CPT-45490 [facility] 17:07:14 [employer] CPT-36929 Level 3 Alf 16:14:37 [employer] CPT-78990 Port a cath flush 11:47:42 CDT CPT-78374 Port a cath flush 08:29:49 CDT CPT-OV Office Visit 14:27:58 [employer]
--- OUTSIDE RECORDS SUMMARY | 2016-08-07 12:05 | XMS REPORT | Clinical Summary ---
Author Author Admin, [place] Organization [facility] Address Unknown Phone Unavailable Allergies, Adverse 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, SCOOP FILLER V58.69 Resolved Jonel Hemphill MD Long-term [...] Coronary atherosclerosis of unspecified type of vessel, makah or graft FH DIABETES V18.0 Resolved Jonel [...] Coronary atherosclerosis of unspecified type of vessel, makah or graft CONSTIPATION 564.00 Resolved Jonel Hemphill [...] Obstructive sleep apnea (adult) (pediatric) 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 USE, SCOOP FILLER ICD-V58.69 Inactive Jonel Hemphill MD DIABETES, TYPE [...] 1 tablet by mouth daily CITALOPRAM HYDROBROMIDE 27135430051 Active Marleni Romero Active ZOFRAN 4 MG TABS 1 po q6hr PRN Nausea ONDANSETRON HCL 29361539835 Active Jonel Hemphill MD Active XARELTO 20 MG ORAL TABS 1 daily RIVAROXABAN 74460726509 Active Jonel Hemphill MD Active JANUVIA 100 MG ORAL TABS 2 tabs daily SITAGLIPTIN PHOSPHATE 22639805788 Active Jonel Hemphill MD Active CELEXA 20 MG TABS Take 1 tablet 1x daily CITALOPRAM HYDROBROMIDE 61787434938 No Longer Active Jonel Hemphill MD Active ATIVAN 0.5 MG TABS Take 1 tablet 2x daily PRN LORAZEPAM 31846674395 No Longer Active Jonel Hemphill MD Active FUROSEMIDE 80 MG ORAL TABS 1 daily FUROSEMIDE 01871051851 Active Jonel Hemphill MD Active MECLIZINE HCL 25 MG CHEW TAB 1 four times a day as needed for dizziness 02/21 MECLIZINE HCL 69099218314 No Longer Active Jonel Hemphill MD Active ZYLOPRIM 300 MG TAB 1 BY MOUTH DAILY ALLOPURINOL 71662753304 No Longer Active Jonel Hemphill MD Active METOPROLOL TARTRATE 50 MG ORAL TABS 1 TAB BY MOUTH TWICE DAILY METOPROLOL TARTRATE 50087663538 No Longer Active Jonel Hemphill MD Active GABAPENTIN 400 MG ORAL CAPS 1 TAB BY MOUTH THREE TIMES DAILY 2015 GABAPENTIN 24589048037 No Longer Active Jonel Hemphill MD Active ULORIC 40 MG ORAL TABS 1 daily for gout. FEBUXOSTAT 42810410289 Active Marleni Romero Active HYDROCODONE-ACETAMINOPHEN 7.5-325 MG TABS 1 TAB PO Q 6 HRS PRN HYDROCODONE-ACETAMINOPHEN 63052502386 Active Jonel Hemphill MD Active METFORMIN HCL 1000 MG TABS 1 tablet by mouth twice daily METFORMIN HCL 58294465076 Active Marleni Romero Active FENTANYL 12 MCG/HR PT72 Apply to clean, dry skin and change every 72 hours FENTANYL 03615619666 Active Jonel Hemphill MD Active KLOR-CON 20 MEQ ORAL PACK 1 BY MOUTH DAILY POTASSIUM CHLORIDE 34896204641 Active Marleni Romero Active A+D FIRST AID EXT OINT APPLY OINTMENT AND RUFINO WRAPS TO LOWER EXTEREMETIES DAILY SKIN PROTECTANTS, MISC. 89440039572 Active Jonel Hemphill MD Active NYSTATIN 633115 UNIT/GM EXT OINT APPLY PRN TID TO GAULDING/RASH IN ABDOMINAL FOLDS NYSTATIN 44330981418 Active Jonel Hemphill MD Active GABAPENTIN 300 MG CAPS 1 CAP PO TID GABAPENTIN 27550278580 No Longer Active Jonel Hemphill MD Active DILANTIN 100 MG ORAL CAPS 1 THREE TIMES DAILY FOR SEIZURES PHENYTOIN SODIUM EXTENDED 74653919077 Active Marleni Tenoriokristin Active CPAP APPLY AT HS CPAP Active Jonel Hemphill MD Active LISINOPRIL 40 MG TABS 1 tablet by mouth twice daily, for blood pressure 03/31 LISINOPRIL 19791497797 Active Jonel Hemphill MD Active BUPROPION HCL ER (SR) 150 MG [id number] 1 twice a day for depression BUPROPION HCL 20636355041 Active Jonel Hemphill MD Active MULTIVITAMINS CAPS 1 DAILY MULTIPLE VITAMIN 81296590039 Active Jonel Hemphill MD Active HYDROCODONE-ACETAMINOPHEN 7.5-325 MG TABS 1 q 6 hrs prn HYDROCODONE-ACETAMINOPHEN 87313819072 No Longer Active Jonel Hemphill MD Active DILANTIN 100 MG CAPS 3 cap tid PHENYTOIN SODIUM EXTENDED 52519891182 No Longer Active Jonel Hemphill MD Active BUDEPRION SR 150 MG [id number] 1 bid BUPROPION HCL 80462268113 No Longer Active Jonel Hemphill MD Active ALLOPURINOL 300 MG TABS 1 qd ALLOPURINOL 44865590942 No Longer Active Jonel Hemphill MD Active COZAAR 100 MG TABS 1 qd LOSARTAN POTASSIUM 06300106308 No Longer Active Jonel Hemphill MD Active CVS VITAMIN C 500 MG TABS 1 po daily ASCORBIC ACID 10698605996 No Longer Active Jonel Hemphill MD Active MIRALAX POWD 17 gms in 4 oz water or juice daily POLYETHYLENE GLYCOL 3350 27562383797 No Longer Active Jonel Hemphill MD Active POTASSIUM CHLORIDE CHELA ER 20 MEQ CR-TABS 1 tab PO daily POTASSIUM CHLORIDE CHELA CR 99225711943 No Longer Active Jonel Hemphill MD Active AMBIEN 10 MG TAB 1 tab by mouth at bedtime as needed for sleep ZOLPIDEM TARTRATE 90531468741 No Longer Active Jonel Hemphill MD Active SULFAMETHOXAZOLE-TMP DS 800-160 MG TABS 1 TAB PO BID SULFAMETHOXAZOLE-TRIMETHOPRIM 85852337498 No Longer Active Jonel Hemphill MD Active NORCO 5-325 MG TABS 1-2 TAB Q 6 HRS PRN HYDROCODONE- ACETAMINOPHEN 17253553114 Active Jonel Hemphill MD Active LEVEMIR 100 UNIT/ML SOLN 5 units sub-q at bedtime INSULIN DETEMIR 57757209539 No Longer Active Tova Perez Active MOBIC 15 MG TABS 1 tab PO daily for arthritis pain MELOXICAM 95987969201 No Longer Active Tova Perez Active GLUCAGEN 1 MG SOLR INJECT 1MG IM IF BS LESS THAN 60 & RES. IS UNABLE TO SWALLOW GLUCAGON HCL (RDNA) 65571579837 No Longer Active Tova Perez Active CVS MILK OF MAGNESIA 1200 MG/15ML SUSP 30 ml daily for constipation MAGNESIUM HYDROXIDE 90381241345 No Longer Active Tova Perez Active IMDUR 120 MG [id number] 1 qd ISOSORBIDE MONONITRATE 82258214168 No Longer Active Tova Perez Active PHENYTOIN 50 MG CHEW 1 TAB PO BID PHENYTOIN 32869145647 Active Tova Perez Active NEURONTIN 400 MG CAPS Take one by mouth 3 times daily, morning, afternoon and evening.] GABAPENTIN 18809475613 No Longer Active Tova Perez Active ANTIVERT 25 MG TABS 1 q 6 hrs prn MECLIZINE HCL 78280795830 No Longer Active Jonel Hemphill MD Active CLONIDINE HCL 0.2 MG TABS 1 q 8 hrs as needed -greater than 160-htn CLONIDINE HCL 74070744529 No Longer Active Jonel Hemphill MD Active AMBIEN 10 MG TABS 1 q hs prn ZOLPIDEM TARTRATE 90711438405 No Longer Active Jonel Hemphill MD Active GNP THERAPEUTIC-M TABS 1 qd MULTIPLE VITAMINS- MINERALS 84092442771 No Longer Active Jonel Hemphill MD Active METOPROLOL TARTRATE 50 MG TABS 1 bid METOPROLOL TARTRATE 80260376676 No Longer Active Jonel Hemphill MD Active METFORMIN HCL 500 MG TABS 1 bod with food METFORMIN HCL 97078144232 No Longer Active Jonel Hemphill MD Active LISINOPRIL 40 MG TABS 1 qd LISINOPRIL 09095718020 No Longer Active Jonel Hemphill MD Active HYDROCHLOROTHIAZIDE 25 MG TABS 1 qd HYDROCHLOROTHIAZIDE 69450157628 No Longer Active Jonel Hemphill MD Active DURAGESIC-25 25 MCG/HR PT72 place 1 patch on the skin q72hrs for pain FENTANYL 47388240088 No Longer Active Jonel Hemphill MD Active FENTANYL 75 MCG/HR PT72 place 1 patch on skin q72hrs fr pain 2012 FENTANYL 28043521278 No Longer Active Jonel Hemphill MD Active FUROSEMIDE 40 MG TABS 1 q am FUROSEMIDE 38613024151 No Longer Active Jonel Hemphill MD Active HEPARIN (PORCINE) LOCK FLUSH 100 UNIT/ML SOLN Flush port a cath monthly every three week on with Heparin and NS HEPARIN LOCK FLUSH 02292316467 Active Jonel Hemphill MD Active FENTANYL 100 MCG/HR PT72 Apply every 3 days FENTANYL 19665662626 Active Jonel Hemphill MD Active FENTANYL 25 MCG/HR PT72 Apply to clean skin and change every 72 hours. 07/03 FENTANYL 91915624120 No Longer Active Jonel Hemphill MD Active FENTANYL 50 MCG/HR PT72 place 1 patch on skin q72 hours FENTANYL 26768494514 No Longer Active Mayco Shah APRN Active DURAGESIC-12 12 MCG/HR PT72 APPLY PATCH TO SKIN AND CHANGE EVERY 72 HOURS, ROTATE SITES FENTANYL 63760020967 No Longer Active Fozia HERNANDEZ Active FUROSEMIDE 20 MG TABS 1 qd FUROSEMIDE 26731382305 No Longer Active Mahogany Bolivar Active ADULT ASPIRIN EC LOW STRENGTH 81 MG TBEC 1 qd ASPIRIN 33280107641 Active MARY Perez Active FUROSEMIDE 20 MG TABS 1 qd FUROSEMIDE 20 MG TABS 072146 FUROSEMIDE Inactive DURAGESIC-12 12 MCG/HR PT72 APPLY PATCH TO SKIN AND CHANGE EVERY 72 HOURS, ROTATE SITES DURAGESIC-12 12 MCG/HR PT72 828420 FENTANYL Inactive FENTANYL 50 MCG/HR PT72 place 1 patch on skin q72 hours FENTANYL 50 MCG/HR PT72 111242 FENTANYL Inactive FUROSEMIDE 40 MG TABS 1 q am FUROSEMIDE 40 MG TABS 216770 FUROSEMIDE Inactive FENTANYL 75 MCG/HR PT72 place 1 patch on skin q72hrs fr pain 2012 FENTANYL 75 MCG/HR PT72 736371 FENTANYL Inactive DURAGESIC-25 25 MCG/HR PT72 place 1 patch on the skin q72hrs for pain DURAGESIC-25 25 MCG/HR PT72 290834 FENTANYL Inactive HYDROCHLOROTHIAZIDE 25 MG TABS 1 qd HYDROCHLOROTHIAZIDE 25 MG TABS 382634 HYDROCHLOROTHIAZIDE Inactive LISINOPRIL 40 MG TABS 1 qd LISINOPRIL 40 MG TABS 496436 LISINOPRIL Inactive METFORMIN HCL 500 MG TABS 1 bod with food METFORMIN HCL 500 MG TABS 997833 METFORMIN HCL Inactive METOPROLOL TARTRATE 50 MG TABS 1 bid METOPROLOL TARTRATE 50 MG TABS 259349 METOPROLOL TARTRATE Inactive GNP THERAPEUTIC-M TABS 1 qd GNP THERAPEUTIC-M TABS MULTIPLE VITAMINS-MINERALS Inactive AMBIEN 10 MG TABS 1 q hs prn AMBIEN 10 MG TABS 138540 ZOLPIDEM TARTRATE Inactive CLONIDINE HCL 0.2 MG TABS 1 q 8 hrs as needed -greater than 160-htn CLONIDINE HCL 0.2 MG TABS 089320 CLONIDINE HCL Inactive ANTIVERT 25 MG TABS 1 q 6 hrs prn ANTIVERT 25 MG TABS MECLIZINE HCL Inactive NEURONTIN 400 MG CAPS Take one by mouth 3 times daily, morning, afternoon and evening.] NEURONTIN 400 MG CAPS 147849 GABAPENTIN Inactive IMDUR 120 MG [id number] 1 qd IMDUR 120 MG [id number] ISOSORBIDE MONONITRATE Inactive CVS MILK OF MAGNESIA [...] for arthritis pain MOBIC 15 MG TABS 798823 MELOXICAM Inactive LEVEMIR 100 UNIT/ML SOLN 5 units sub-q at bedtime LEVEMIR 100 UNIT/ML SOLN INSULIN DETEMIR Inactive SULFAMETHOXAZOLE-TMP DS 800-160 MG TABS 1 TAB PO BID SULFAMETHOXAZOLE-TMP DS 800-160 MG TABS 427159 SULFAMETHOXAZOLE-TRIMETHOPRIM Inactive AMBIEN 10 MG TAB 1 tab by mouth at bedtime as needed for sleep AMBIEN 10 MG TAB 182851 ZOLPIDEM TARTRATE Inactive POTASSIUM CHLORIDE CHELA ER 20 MEQ CR-TABS 1 tab PO daily POTASSIUM CHLORIDE CHELA ER 20 MEQ CR-TABS POTASSIUM CHLORIDE CHELA CR Inactive MIRALAX POWD 17 gms in 4 oz water or juice daily MIRALAX POWD 945290 POLYETHYLENE GLYCOL 3350 Inactive CVS VITAMIN C 500 MG TABS 1 po daily CVS VITAMIN C 500 MG TABS 507090 ASCORBIC ACID Inactive COZAAR 100 MG TABS 1 qd COZAAR 100 MG TABS 371779 LOSARTAN POTASSIUM Inactive ALLOPURINOL 300 MG TABS 1 qd ALLOPURINOL 300 MG TABS 155419 ALLOPURINOL Inactive BUDEPRION SR 150 MG [id number] 1 bid BUDEPRION SR 150 MG [id number] BUPROPION HCL Inactive DILANTIN 100 MG CAPS 3 cap tid DILANTIN 100 MG CAPS 393934 PHENYTOIN SODIUM EXTENDED Inactive HYDROCODONE-ACETAMINOPHEN 7.5-325 MG TABS 1 q 6 hrs prn HYDROCODONE-ACETAMINOPHEN 7.5-325 MG TABS 083274 HYDROCODONE- ACETAMINOPHEN Inactive GABAPENTIN 300 MG CAPS 1 CAP PO TID GABAPENTIN 300 MG CAPS 341676 GABAPENTIN Inactive GABAPENTIN 400 MG ORAL CAPS 1 TAB BY MOUTH THREE TIMES DAILY 2015 GABAPENTIN 400 MG ORAL CAPS 173247 GABAPENTIN Inactive METOPROLOL TARTRATE 50 MG ORAL TABS 1 TAB BY MOUTH TWICE DAILY METOPROLOL TARTRATE 50 MG ORAL TABS 785587 METOPROLOL TARTRATE Inactive ZYLOPRIM 300 MG TAB 1 BY MOUTH DAILY ZYLOPRIM 300 MG TAB 234075 ALLOPURINOL Inactive MECLIZINE HCL 25 MG CHEW TAB 1 four times a day as needed for dizziness 02/21 MECLIZINE HCL 25 MG CHEW TAB 410799 MECLIZINE HCL Inactive ATIVAN 0.5 MG TABS Take 1 tablet 2x daily PRN ATIVAN 0.5 MG TABS 124373 LORAZEPAM Inactive CELEXA 20 MG TABS Take 1 tablet 1x daily CELEXA 20 MG TABS 100623 CITALOPRAM HYDROBROMIDE Inactive FENTANYL 25 MCG/HR PT72 Apply to clean skin and change every 72 hours. 07/03 FENTANYL 25 MCG/HR PT72 324977 FENTANYL Inactive Advance Directives Directive Description Start [...] 10*3/mm3 Encounters Code Encounter Date Provider Facility CPT-70059 Level 3 Est. Patient 19:05:03 CDT Jonel Hemphill MD [facility]-07668 Level 3 Est. Patient 17:30:47 CDT Kevin Link MD [facility]-99976 Level 3 Est. Patient 18:04:07 CDT Jonel Hemphill MD [facility] CPT-13404 Level 3 Est. Patient 17:18:03 CDT Jonel Hemphill MD [facility] CPT-09216 Level 3 Est. Patient 21:58:03 CITY AUDITOR Jonel Hemphill MD [facility] CPT-36572 Level 4 Est. Patient 18:03:14 CDT Jonel Hemphill MD [facility]-68340 Level 4 Est. Patient 13:24:53 CDT Jonel Hemphill MD [facility]-60392 Level 4 Est. Patient 09:15:44 CDT Jonel Hemphill MD [facility]-34855 Level 4 Est. Patient 19:16:01 CDT Jonel Yeager of [facility] [address]-95496 Level 4 Est. Patient 11:25:16 CDT Jonel Hemphill MD [facility] CPT-72495 Level 4 Est. Patient 09:00:40 CDT Jonel Hemphill MD [facility]-37001 Level 4 Est. Patient 14:53:58 CDT Jonel Hemphill MD [facility]-01753 Level 4 Est. Patient 22:59:01 CDT Jonel Hemphill MD [facility]-49066 Level 4 Est. Patient 09:29:57 CDT Jonel Hemphill MD [facility]-15443 Level 4 Est. Patient 12:35:53 CITY AUDITOR Jonel Hemphill MD [facility] CPT-56097 Level 4 Est. Patient 22:36:09 CITY AUDITOR Jonel Hemphill MD [facility]-36341 Level 2 Est. Patient 15:14:15 CITY AUDITOR Mayco Shah APRN [facility] CPT-13581 Level 4 Est. Patient 10:36:22 CITY AUDITOR Jonel Hemphill MD [facility] CPT-25716 Level 4 Est. Patient 22:01:13 CITY AUDITOR Jonel Hemphill MD [facility]-42527 Level 3 Est. Patient 21:50:37 CITY AUDITOR Jonel Hemphill MD [facility] CPT-58570 Level 4 Est. Patient 15:02:43 CDT Rubin Pierre MD [facility] CPT-49837 Level 4 Est. Patient 14:27:35 CDT Jonel Hemphill MD [facility]-30207 Level 4 Est. Patient 12:41:17 CDT Jonel Hemphill MD [facility]-70256 Level 4 Est. Patient 16:18:55 CDT Jonel Hemphill MD [facility]-32068 Level 4 Est. Patient 17:58:05 CDT Jonel Hemphill MD [facility]-02870 Level 4 Est. Patient 22:10:06 CDT Jonel Hemphill MD [facility]-43815 Level 4 Est. Patient 13:22:09 CDT Jonel Hemphill MD [facility]-96966 Level 4 Est. Patient 22:52:17 CITY AUDITOR Jonel Hemphill MD [facility]-35959 Level 3 Est. Patient 22:34:10 CITY AUDITOR Jonel Hemphill MD [facility]-68298 Level 4 Est. Patient 07:49:20 CITY AUDITOR Jonel Hemphill MD [facility] Skilled CPT-33279 Level 3 Est. Patient 08:28:27 CITY AUDITOR Jonel Hemphill MD [facility] Procedures Code Procedure Name Date Entry Date Standard Description CPT-93314 Level 3 Correction 08:18:30 CDT CPT-89785 Level 3 Correction 19:03:14 CDT CPT-69917 Level 3 Correction 17:42:11 CDT CPT-49092 Level 3 Correction 16:04:10 CDT CPT-56940 Level 3 Correction 19:38:15 CITY AUDITOR CPT-91790 Level 3 Correction 19:28:48 CITY AUDITOR CPT-96590 Level 3 Correction 18:02:20 CITY AUDITOR CPT-32821 Level 3 Correction 15:02:14 CITY AUDITOR CPT-04294 Level 3 Correction 12:25:37 CDT CPT-48267 Level 3 Correction 12:48:39 CDT CPT-95659 Level 3 Correction 17:39:14 CDT CPT-41267 Level 3 Correction 13:32:58 CDT CPT-68419 Level 3 Correction 17:43:43 CDT CPT-18757 Level 3 Correction 12:03:33 CITY AUDITOR CPT-19638 Level 3 Correction 18:47:28 CITY AUDITOR CPT-16225 Level 3 Correction 17:35:26 CITY AUDITOR CPT-92651 Level 3 Correction 18:44:49 CITY AUDITOR CPT-29124 Level 3 Correction 18:17:33 CDT CPT-80582 Level 3 Correction 09:25:33 CDT CPT-65212 Level 3 Correction 19:11:57 CDT CPT-63505 Level 3 Correction 09:25:52 CDT CPT-04515 Level 3 Correction 14:23:59 CDT CPT-74035 Level 3 Correction 12:09:43 CDT CPT-45390 Level 3 Correction 09:37:40 CDT CPT-75233 Level 3 Correction 18:23:02 CDT CPT-24635 Level 3 Correction 14:09:06 CDT CPT-95945 Level 3 Correction 12:43:27 CITY AUDITOR CPT-84085 Postop F/U Visit 14:10:15 CITY AUDITOR CPT-49237 Sono Soft Tissue Head and Neck 17:07:14 CITY AUDITOR CPT-60263 Level 3 Correction 16:14:37 CITY AUDITOR CPT-41483 Port a cath flush 11:47:42 CDT CPT-79858 Port a cath flush 08:29:49 CDT CPT-OV Office Visit 14:27:58 CITY AUDITOR
--- OUTSIDE RECORDS SUMMARY | 2016-08-07 12:07 | XMS REPORT | Clinical Summary ---
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 Jonel Hemphill MD Long-term [...] Coronary atherosclerosis of unspecified type of vessel, [place] or graft FH DIABETES V18.0 Resolved Jonel [...] Coronary atherosclerosis of unspecified type of vessel, [place] or graft CONSTIPATION 564.00 Resolved Jonel Hemphill [...] Pain in limb Tinea corporis 110.5 Active Joenl Hemphill MD Dermatophytosis of the body Cellulitis, [...] Jonel Hemphill MD Unspecified fall 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, 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 ICD-V58.69 Inactive Jonel Hemphill MD DIABETES, [...] 1 tablet by mouth daily CITALOPRAM HYDROBROMIDE 69756705628 Active Marlenitanya Romero Active ZOFRAN 4 MG TABS 1 po q6hr PRN Nausea ONDANSETRON HCL 52590145641 Active Jonel Hemphill MD Active XARELTO 20 MG ORAL TABS 1 daily RIVAROXABAN 60679710390 Active Jonel Hemphill MD Active JANUVIA 100 MG ORAL TABS 2 tabs daily SITAGLIPTIN PHOSPHATE 60755165058 Active Jonel Hemphill MD Active CELEXA 20 MG TABS Take 1 tablet 1x daily CITALOPRAM HYDROBROMIDE 41433559840 No Longer Active Jonel Hemphill MD Active ATIVAN 0.5 MG TABS Take 1 tablet 2x daily PRN LORAZEPAM 59486412767 No Longer Active Jonel Hemphill MD Active FUROSEMIDE 80 MG ORAL TABS 1 daily FUROSEMIDE 32926950264 Active Jonel Hemphill MD Active MECLIZINE HCL 25 MG CHEW TAB 1 four times a day as needed for dizziness 02/21 MECLIZINE HCL 34080400589 No Longer Active Jonel Hemphill MD Active ZYLOPRIM 300 MG TAB 1 BY MOUTH DAILY ALLOPURINOL 72156794301 No Longer Active Jonel Hemphill MD Active METOPROLOL TARTRATE 50 MG ORAL TABS 1 TAB BY MOUTH TWICE DAILY METOPROLOL TARTRATE 28718098108 No Longer Active Jonel Hemphill MD Active GABAPENTIN 400 MG ORAL CAPS 1 TAB BY MOUTH THREE TIMES DAILY 2015 GABAPENTIN 04913822003 No Longer Active Jonel Hemphill MD Active ULORIC 40 MG ORAL TABS 1 daily for gout. FEBUXOSTAT 93254875083 Active Marleni Romero Active HYDROCODONE-ACETAMINOPHEN 7.5-325 MG TABS 1 TAB PO Q 6 HRS PRN HYDROCODONE-ACETAMINOPHEN 56354596158 Active Jonel Hemphill MD Active METFORMIN HCL 1000 MG TABS 1 tablet by mouth twice daily METFORMIN HCL 43785269840 Active Marleni Romero Active FENTANYL 12 MCG/HR PT72 Apply to clean, dry skin and change every 72 hours FENTANYL 43853878577 Active Jonel Hemphill MD Active KLOR-CON 20 MEQ ORAL PACK 1 BY MOUTH DAILY POTASSIUM CHLORIDE 90305042854 Active Marleni Romero Active A+D FIRST AID EXT OINT APPLY OINTMENT AND RUFINO WRAPS TO LOWER EXTEREMETIES DAILY SKIN PROTECTANTS, MISC. 58667096608 Active Jonel Hemphill MD Active NYSTATIN 716674 UNIT/GM EXT OINT APPLY PRN TID TO GAULDING/RASH IN ABDOMINAL FOLDS NYSTATIN 49092412945 Active Jonel Hemphill MD Active GABAPENTIN 300 MG CAPS 1 CAP PO TID GABAPENTIN 74441049927 No Longer Active Jonel Hemphill MD Active DILANTIN 100 MG ORAL CAPS 1 THREE TIMES DAILY FOR SEIZURES PHENYTOIN SODIUM EXTENDED 24894297134 Active Marleni Romero Active CPAP APPLY AT HS CPAP Active Jonel Hemphill MD Active LISINOPRIL 40 MG TABS 1 tablet by mouth twice daily, for blood pressure 03/31 LISINOPRIL 07605131617 Active Jonel Hemphill MD Active BUPROPION HCL ER (SR) 150 MG [id number] 1 twice a day for depression BUPROPION HCL 98753429800 Active Jonel Hemphill MD Active MULTIVITAMINS CAPS 1 DAILY MULTIPLE VITAMIN 50373279893 Active Jonel Hemphill MD Active HYDROCODONE-ACETAMINOPHEN 7.5-325 MG TABS 1 q 6 hrs prn HYDROCODONE-ACETAMINOPHEN 40185850240 No Longer Active Jonel Hemphill MD Active DILANTIN 100 MG CAPS 3 cap tid PHENYTOIN SODIUM EXTENDED 77326237766 No Longer Active Jonel Hemphill MD Active BUDEPRION SR 150 MG [id number] 1 bid BUPROPION HCL 16985456687 No Longer Active Jonel Hemphill MD Active ALLOPURINOL 300 MG TABS 1 qd ALLOPURINOL 51733763716 No Longer Active Jonel Hemphill MD Active COZAAR 100 MG TABS 1 qd LOSARTAN POTASSIUM 88854365587 No Longer Active Jonel Hemphill MD Active CVS VITAMIN C 500 MG TABS 1 po daily ASCORBIC ACID 83969703517 No Longer Active Jonel Hemphill MD Active MIRALAX POWD 17 gms in 4 oz water or juice daily POLYETHYLENE GLYCOL 3350 57005375100 No Longer Active Jonel Hemphill MD Active POTASSIUM CHLORIDE CHELA ER 20 MEQ CR-TABS 1 tab PO daily POTASSIUM CHLORIDE CHELA CR 10790217230 No Longer Active Jonel Hemphill MD Active AMBIEN 10 MG TAB 1 tab by mouth at bedtime as needed for sleep ZOLPIDEM TARTRATE 61870670023 No Longer Active Jonel Hemphill MD Active SULFAMETHOXAZOLE-TMP DS 800-160 MG TABS 1 TAB PO BID SULFAMETHOXAZOLE-TRIMETHOPRIM 61062590973 No Longer Active Jonel Hemphill MD Active NORCO 5-325 MG TABS 1-2 TAB Q 6 HRS PRN HYDROCODONE- ACETAMINOPHEN 56267000913 Active Jonel Hemphill MD Active LEVEMIR 100 UNIT/ML SOLN 5 units sub-q at bedtime INSULIN DETEMIR 65757250888 No Longer Active Tova Perez Active MOBIC 15 MG TABS 1 tab PO daily for arthritis pain MELOXICAM 85745157411 No Longer Active Tova Perez Active GLUCAGEN 1 MG SOLR INJECT 1MG IM IF BS LESS THAN 60 & RES. IS UNABLE TO SWALLOW GLUCAGON HCL (RDNA) 81064057255 No Longer Active Tova Perez Active CVS MILK OF MAGNESIA 1200 MG/15ML SUSP 30 ml daily for constipation MAGNESIUM HYDROXIDE 44596303708 No Longer Active Tova Perez Active IMDUR 120 MG [id number] 1 qd ISOSORBIDE MONONITRATE 17501140081 No Longer Active Tova Perez Active PHENYTOIN 50 MG CHEW 1 TAB PO BID PHENYTOIN 28854253219 Active Tova Perez Active NEURONTIN 400 MG CAPS Take one by mouth 3 times daily, morning, afternoon and evening.] GABAPENTIN 39009260243 No Longer Active Tova Perez Active ANTIVERT 25 MG TABS 1 q 6 hrs prn MECLIZINE HCL 37256235377 No Longer Active Jonel Hemphill MD Active CLONIDINE HCL 0.2 MG TABS 1 q 8 hrs as needed -greater than 160-htn CLONIDINE HCL 50559614602 No Longer Active Jonel Hemphill MD Active AMBIEN 10 MG TABS 1 q hs prn ZOLPIDEM TARTRATE 38881346028 No Longer Active Jonel Hemphill MD Active GNP THERAPEUTIC-M TABS 1 qd MULTIPLE VITAMINS- MINERALS 81290254605 No Longer Active Jonel Hemphill MD Active METOPROLOL TARTRATE 50 MG TABS 1 bid METOPROLOL TARTRATE 23808297969 No Longer Active Jonel Hemphill MD Active METFORMIN HCL 500 MG TABS 1 bod with food METFORMIN HCL 70205798369 No Longer Active Jonel Hemphill MD Active LISINOPRIL 40 MG TABS 1 qd LISINOPRIL 32227952836 No Longer Active Jonel Hemphill MD Active HYDROCHLOROTHIAZIDE 25 MG TABS 1 qd HYDROCHLOROTHIAZIDE 79059803944 No Longer Active Jonel Hemphill MD Active DURAGESIC-25 25 MCG/HR PT72 place 1 patch on the skin q72hrs for pain FENTANYL 45664884910 No Longer Active Jonel Hemphill MD Active FENTANYL 75 MCG/HR PT72 place 1 patch on skin q72hrs fr pain 2012 FENTANYL 69384803410 No Longer Active Jonel Hemphill MD Active FUROSEMIDE 40 MG TABS 1 q am FUROSEMIDE 49337112024 No Longer Active Jonel Hemphill MD Active HEPARIN (PORCINE) LOCK FLUSH 100 UNIT/ML SOLN Flush port a cath monthly every three week on with Heparin and NS HEPARIN LOCK FLUSH 39251872332 Active Jonel Hemphill MD Active FENTANYL 100 MCG/HR PT72 Apply every 3 days FENTANYL 93973794301 Active Jonel Hemphill MD Active FENTANYL 25 MCG/HR PT72 Apply to clean skin and change every 72 hours. 07/03 FENTANYL 27359672240 No Longer Active Jonel Hemphill MD Active FENTANYL 50 MCG/HR PT72 place 1 patch on skin q72 hours FENTANYL 18085368300 No Longer Active Mayco Shah APRN Active DURAGESIC-12 12 MCG/HR PT72 APPLY PATCH TO SKIN AND CHANGE EVERY 72 HOURS, ROTATE SITES FENTANYL 62630250555 No Longer Active Fozia HERNANDEZ Active FUROSEMIDE 20 MG TABS 1 qd FUROSEMIDE 62741668467 No Longer Active [place] Active ADULT ASPIRIN EC LOW STRENGTH 81 MG TBEC 1 qd ASPIRIN 00721022049 Active GregorMARY Bruce Active FUROSEMIDE 20 MG TABS 1 qd FUROSEMIDE 20 MG TABS 685975 FUROSEMIDE Inactive DURAGESIC-12 12 MCG/HR PT72 APPLY PATCH TO SKIN AND CHANGE EVERY 72 HOURS, ROTATE SITES DURAGESIC-12 12 MCG/HR PT72 366804 FENTANYL Inactive FENTANYL 50 MCG/HR PT72 place 1 patch on skin q72 hours FENTANYL 50 MCG/HR PT72 777948 FENTANYL Inactive FUROSEMIDE 40 MG TABS 1 q am FUROSEMIDE 40 MG TABS 497902 FUROSEMIDE Inactive FENTANYL 75 MCG/HR PT72 place 1 patch on skin q72hrs fr pain 2012 FENTANYL 75 MCG/HR PT72 510864 FENTANYL Inactive DURAGESIC-25 25 MCG/HR PT72 place 1 patch on the skin q72hrs for pain DURAGESIC-25 25 MCG/HR PT72 751550 FENTANYL Inactive HYDROCHLOROTHIAZIDE 25 MG TABS 1 qd HYDROCHLOROTHIAZIDE 25 MG TABS 429601 HYDROCHLOROTHIAZIDE Inactive LISINOPRIL 40 MG TABS 1 qd LISINOPRIL 40 MG TABS 237844 LISINOPRIL Inactive METFORMIN HCL 500 MG TABS 1 bod with food METFORMIN HCL 500 MG TABS 254643 METFORMIN HCL Inactive METOPROLOL TARTRATE 50 MG TABS 1 bid METOPROLOL TARTRATE 50 MG TABS 995021 METOPROLOL TARTRATE Inactive GNP THERAPEUTIC-M TABS 1 qd GNP THERAPEUTIC-M TABS MULTIPLE VITAMINS-MINERALS Inactive AMBIEN 10 MG TABS 1 q hs prn AMBIEN 10 MG TABS 247129 ZOLPIDEM TARTRATE Inactive CLONIDINE HCL 0.2 MG TABS 1 q 8 hrs as needed -greater than 160-htn CLONIDINE HCL 0.2 MG TABS 758498 CLONIDINE HCL Inactive ANTIVERT 25 MG TABS 1 q 6 hrs prn ANTIVERT 25 MG TABS MECLIZINE HCL Inactive NEURONTIN 400 MG CAPS Take one by mouth 3 times daily, morning, afternoon and evening.] NEURONTIN 400 MG CAPS 359047 GABAPENTIN Inactive IMDUR 120 MG [id number] 1 qd IMDUR 120 MG [id number] ISOSORBIDE MONONITRATE Inactive CVS MILK OF MAGNESIA [...] for arthritis pain MOBIC 15 MG TABS 631606 MELOXICAM Inactive LEVEMIR 100 UNIT/ML SOLN 5 units sub-q at bedtime LEVEMIR 100 UNIT/ML SOLN INSULIN DETEMIR Inactive SULFAMETHOXAZOLE-TMP DS 800-160 MG TABS 1 TAB PO BID SULFAMETHOXAZOLE-TMP DS 800-160 MG TABS 896261 SULFAMETHOXAZOLE-TRIMETHOPRIM Inactive AMBIEN 10 MG TAB 1 tab by mouth at bedtime as needed for sleep AMBIEN 10 MG TAB 983619 ZOLPIDEM TARTRATE Inactive POTASSIUM CHLORIDE CHELA ER 20 MEQ CR-TABS 1 tab PO daily POTASSIUM CHLORIDE CHELA ER 20 MEQ CR-TABS POTASSIUM CHLORIDE CHELA CR Inactive MIRALAX POWD 17 gms in 4 oz water or juice daily MIRALAX POWD 416237 POLYETHYLENE GLYCOL 3350 Inactive CVS VITAMIN C 500 MG TABS 1 po daily CVS VITAMIN C 500 MG TABS 612160 ASCORBIC ACID Inactive COZAAR 100 MG TABS 1 qd COZAAR 100 MG TABS 526353 LOSARTAN POTASSIUM Inactive ALLOPURINOL 300 MG TABS 1 qd ALLOPURINOL 300 MG TABS 742952 ALLOPURINOL Inactive BUDEPRION SR 150 MG [id number] 1 bid BUDEPRION SR 150 MG [id number] BUPROPION HCL Inactive DILANTIN 100 MG CAPS 3 cap tid DILANTIN 100 MG CAPS 711141 PHENYTOIN SODIUM EXTENDED Inactive HYDROCODONE-ACETAMINOPHEN 7.5-325 MG TABS 1 q 6 hrs prn HYDROCODONE-ACETAMINOPHEN 7.5-325 MG TABS 602620 HYDROCODONE- ACETAMINOPHEN Inactive GABAPENTIN 300 MG CAPS 1 CAP PO TID GABAPENTIN 300 MG CAPS 593795 GABAPENTIN Inactive GABAPENTIN 400 MG ORAL CAPS 1 TAB BY MOUTH THREE TIMES DAILY 2015 GABAPENTIN 400 MG ORAL CAPS 728792 GABAPENTIN Inactive METOPROLOL TARTRATE 50 MG ORAL TABS 1 TAB BY MOUTH TWICE DAILY METOPROLOL TARTRATE 50 MG ORAL TABS 478946 METOPROLOL TARTRATE Inactive ZYLOPRIM 300 MG TAB 1 BY MOUTH DAILY ZYLOPRIM 300 MG TAB 383777 ALLOPURINOL Inactive MECLIZINE HCL 25 MG CHEW TAB 1 four times a day as needed for dizziness 02/21 MECLIZINE HCL 25 MG CHEW TAB 966731 MECLIZINE HCL Inactive ATIVAN 0.5 MG TABS Take 1 tablet 2x daily PRN ATIVAN 0.5 MG TABS 557997 LORAZEPAM Inactive CELEXA 20 MG TABS Take 1 tablet 1x daily CELEXA 20 MG TABS 154474 CITALOPRAM HYDROBROMIDE Inactive FENTANYL 25 MCG/HR PT72 Apply to clean skin and change every 72 hours. 07/03 FENTANYL 25 MCG/HR PT72 128083 FENTANYL Inactive Advance Directives Directive Description Start [...] 10*3/mm3 Encounters Code Encounter Date Provider Facility CPT-82098 Level 3 Est. Patient 19:05:03 CDT Jonel Hemphill MD [facility]-93471 Level 3 Est. Patient 17:30:47 CDT Kevin Link MD [facility] CPT-51827 Level 3 Est. Patient 18:04:07 CDT Jonel Hemphill MD [facility] CPT-99830 Level 3 Est. Patient 17:18:03 CDT Jonel Hemphill MD [facility] CPT-78604 Level 3 Est. Patient 21:58:03 SILO ERECTOR Jonel Hemphill MD [facility] CPT-02115 Level 4 Est. Patient 18:03:14 CDT Jonel Yeager [facility]-19949 Level 4 Est. Patient 13:24:53 CDT Jonel Yeager [facility]-56167 Level 4 Est. Patient 09:15:44 CDT Jonel Yeager [facility]-61088 Level 4 Est. Patient 19:16:01 CDT Jonel Yeager [facility] CPT-99203 Level 4 Est. Patient 11:25:16 CDT Jonel Hemphill MD [facility] CPT-19926 Level 4 Est. Patient 09:00:40 CDT Jonel Yeager [facility]-38336 Level 4 Est. Patient 14:53:58 CDT Jonel Hemphill MD [facility] CPT-80761 Level 4 Est. Patient 22:59:01 CDT Jonel Hemphill MD [facility]-52923 Level 4 Est. Patient 09:29:57 CDT Jonel Hemphill MD [facility]-76975 Level 4 Est. Patient 12:35:53 SILO ERECTOR Jonel Hemphill MD [facility]-91896 Level 4 Est. Patient 22:36:09 SILO ERECTOR Jonel Hemphill MD [facility]-89516 Level 2 Est. Patient 15:14:15 SILO ERECTOR Mayco Shah APRN [facility] CPT-56432 Level 4 Est. Patient 10:36:22 SILO ERECTOR Jonel Hemphill MD [facility] CPT-47627 Level 4 Est. Patient 22:01:13 SILO ERECTOR Jonel Hemphill MD [facility]-34860 Level 3 Est. Patient 21:50:37 SILO ERECTOR Jonel Hemphill MD [facility] CPT-79115 Level 4 Est. Patient 15:02:43 CDT Rubin Pierre MD [facility] CPT-84154 Level 4 Est. Patient 14:27:35 CDT Jonel Hemphill MD [facility]-78345 Level 4 Est. Patient 12:41:17 CDT Jonel Hemphill MD [facility]-59033 Level 4 Est. Patient 16:18:55 CDT Jonel Hemphill MD [facility]-43924 Level 4 Est. Patient 17:58:05 CDT Jonel Hemphill MD [facility]-41288 Level 4 Est. Patient 22:10:06 CDT Jonel Hemphill MD [facility]-98496 Level 4 Est. Patient 13:22:09 CDT Jonel Hemphill MD [facility]-14045 Level 4 Est. Patient 22:52:17 SILO ERECTOR Jonel Hemphill MD [facility]-67086 Level 3 Est. Patient 22:34:10 SILO ERECTOR Jonel Hemphill MD [facility]-40173 Level 4 Est. Patient 07:49:20 SILO ERECTOR Jonel Hemphill MD [facility] Skilled CPT-00754 Level 3 Est. Patient 08:28:27 SILO ERECTOR Jonel Hemphill MD [facility] Procedures Code Procedure Name Date Entry Date Standard Description CPT-13905 Level 3 [facility] 19:03:14 CDT CPT-36850 Level 3 [facility] 17:42:11 CDT CPT-16828 Level 3 [facility] 16:04:10 CDT CPT-23934 Level 3 Senior Care 19:38:15 SILO ERECTOR CPT-98536 Level 3 Senior Care 19:28:48 SILO ERECTOR CPT-60375 Level 3 Senior Care 18:02:20 SILO ERECTOR CPT-81114 Level 3 Senior Care 15:02:14 SILO ERECTOR CPT-31154 Level 3 Senior Care 12:25:37 CDT CPT-24274 Level 3 Senior Care 12:48:39 CDT CPT-34756 Level 3 Senior Care 17:39:14 CDT CPT-07332 Level 3 Senior Care 13:32:58 CDT CPT-08534 Level 3 Senior Care 17:43:43 CDT CPT-71587 Level 3 Senior Care 12:03:33 SILO ERECTOR CPT-74377 Level 3 Senior Care 18:47:28 SILO ERECTOR CPT-35682 Level 3 Senior Care 17:35:26 SILO ERECTOR CPT-85877 Level 3 Senior Care 18:44:49 SILO ERECTOR CPT-89677 Level 3 Senior Care 18:17:33 CDT CPT-03829 Level 3 Senior Care 09:25:33 CDT CPT-84829 Level 3 Senior Care 19:11:57 CDT CPT-69911 Level 3 Senior Care 09:25:52 CDT CPT-12603 Level 3 Senior Care 14:23:59 CDT CPT-95555 Level 3 Senior Care 12:09:43 CDT CPT-32804 Level 3 Senior Care 09:37:40 CDT CPT-27846 Level 3 Senior Care 18:23:02 CDT CPT-86038 Level 3 Senior Care 14:09:06 CDT CPT-66847 Level 3 Senior Care 12:43:27 SILO ERECTOR CPT-85842 Postop F/U Visit 14:10:15 SILO ERECTOR CPT-51086 [facility] 17:07:14 SILO ERECTOR CPT-87521 Level 3 [facility] Care 16:14:37 SILO ERECTOR CPT-65307 Port a cath flush 11:47:42 CDT CPT-73414 Port a cath flush 08:29:49 CDT CPT-OV Office Visit 14:27:58 SILO ERECTOR
--- OUTSIDE RECORDS SUMMARY | 2016-08-07 12:09 | XMS REPORT ---
Author Author [facility] Medical Staff Organization [facility] Address [address], [place] [id number] Phone [phone] Summary purpose TRANSITION OF CARE AUTO GENERATION [...] Code Type Description Date Performed Performing Physician [id number] CPT-4 ALS 1 03-21-2015 ANTONIA HOGAN [id number] [facility] ANTONIA HOGAN Functional status No functional or cognitive status [...]
--- OUTSIDE RECORDS SUMMARY | 2016-08-07 12:09 | XMS REPORT | Clinical Summary ---
Author Author Admin, KARLAE Organization [facility] Address Unknown Phone Unavailable Allergies, Adverse Reactions, Alerts Allergy Name Reaction Description Start Date Severity Status Provider PENICILLIN Critical Active Mershonjaida Giles RMA Conditions or Problems Problem Name 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, STRICKLER ATTENDANT V58.69 Resolved Jonel Hemphill MD Long-term (current) [...] stated as uncontrolled SEIZURE DISORDER 780.39 Active Greogr Giles RMA Other convulsions CORONARY HEART DISEASE 414.00 Resolved Jonel Hemphill MD Coronary atherosclerosis of unspecified type of vessel, salt river or graft FH DIABETES V18.0 Resolved [...] Coronary atherosclerosis of unspecified type of vessel, salt river or graft CONSTIPATION 564.00 Resolved Jonel [...] Pain in or around eye 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 USE, STRICKLER ATTENDANT ICD-V58.69 Inactive Jonel Hemphill MD DIABETES, TYPE [...] Inactive Jonel Hemphill MD Nightmares ICD-307.47 Inactive Jnoel Hemphill MD Bronchitis-Acute ICD-466.0 Inactive Jonel Hemphill MD Cellulitis, leg, right ICD-682.6 Inactive Jonel Hemphill MD Flank pain, right ICD-789.09 Inactive Jonel Hemphill MD Medication List Medication Instructions Start Date Stop Date Generic Name NDC Status Provider Patient Instruction NORCO 5-325 MG TABS 1-2 TAB Q 6 HRS PRN HYDROCODONE- ACETAMINOPHEN 41766561630 Active Jonel Hemphill MD Active LEVEMIR 100 UNIT/ML SOLN 5 units sub-q at bedtime INSULIN DETEMIR 99748635891 No Longer Active Tova Perez Active MOBIC 15 MG TABS 1 tab PO daily for arthritis pain MELOXICAM 01292789119 No Longer Active Tova Perez Active GLUCAGEN 1 MG SOLR INJECT 1MG IM IF BS LESS THAN 60 & RES. IS UNABLE TO SWALLOW GLUCAGON HCL (RDNA) 77265960551 No Longer Active Tova Perez Active [facility] MILK OF MAGNESIA 1200 MG/15ML SUSP 30 ml daily for constipation MAGNESIUM HYDROXIDE 91830114683 No Longer Active Tova Perez Active IMDUR 120 MG LW76L-LHR 1 qd ISOSORBIDE MONONITRATE 48995410612 No Longer Active Tova Perez Active METFORMIN HCL 500 MG TABS 1 tablet by mouth twice daily METFORMIN HCL 91122882012 Active Tova Perez Active SULFAMETHOXAZOLE-TMP DS 800-160 MG TABS 1 TAB PO BID SULFAMETHOXAZOLE-TRIMETHOPRIM 00371341548 Active Tova Perez Active PHENYTOIN 50 MG CHEW 1 TAB PO BID PHENYTOIN 36711823031 Active Tova Perez Active MECLIZINE HCL 25 MG CHEW TAB 1 four times a day as needed for dizziness 02/21 MECLIZINE HCL 36815340273 Active Tova Perez Active GABAPENTIN 300 MG CAPS 1 CAP PO TID GABAPENTIN 10003028710 Active Tova Perez Active NEURONTIN 400 MG CAPS Take one by mouth 3 times daily, morning, afternoon and evening.] GABAPENTIN 05739651597 No Longer Active Tova Perez Active AMBIEN 10 MG TAB 1 tab by mouth at bedtime as needed for sleep ZOLPIDEM TARTRATE 77545471306 Active Jonel Hemphill MD Active POTASSIUM CHLORIDE CHELA ER 20 MEQ CR-TABS 1 tab PO daily POTASSIUM CHLORIDE CHELA CR 03705081965 Active Jonel Hemphill MD Active ANTIVERT 25 MG TABS 1 q 6 hrs prn MECLIZINE HCL 89175418257 No Longer Active Jonel Hemphill MD Active CLONIDINE HCL 0.2 MG TABS 1 q 8 hrs as needed -greater than 160-htn CLONIDINE HCL 78173731737 No Longer Active Jonel Hemphill MD Active AMBIEN 10 MG TABS 1 q hs prn ZOLPIDEM TARTRATE 56386187940 No Longer Active Jonel Hemphill MD Active GNP THERAPEUTIC-M TABS 1 qd MULTIPLE VITAMINS- MINERALS 50996866030 No Longer Active Jonel Hemphill MD Active METOPROLOL TARTRATE 50 MG TABS 1 bid METOPROLOL TARTRATE 15481689153 No Longer Active Jonel Hemphill MD Active METFORMIN HCL 500 MG TABS 1 bod with food METFORMIN HCL 17837540831 No Longer Active Jonel Hemphill MD Active LISINOPRIL 40 MG TABS 1 qd LISINOPRIL 97151409933 No Longer Active Jonel Hemphill MD Active HYDROCHLOROTHIAZIDE 25 MG TABS 1 qd HYDROCHLOROTHIAZIDE 60005709172 No Longer Active Jonel Hemphill MD Active DURAGESIC-25 25 MCG/HR PT72 place 1 patch on the skin q72hrs for pain FENTANYL 23737235096 No Longer Active Jonel Hemphill MD Active FENTANYL 75 MCG/HR PT72 place 1 patch on skin q72hrs fr pain 2012 FENTANYL 68987975963 No Longer Active Jonel Hemphill MD Active LASIX 20 MG TABS 1 tab PO q morning FUROSEMIDE 15692539347 Active Jonel Hemphill MD Active FUROSEMIDE 40 MG TABS 1 q am FUROSEMIDE 81281331006 No Longer Active Jonel Hemphill MD Active HEPARIN (PORCINE) LOCK FLUSH 100 UNIT/ML SOLN Flush port a cath monthly every three week on with Heparin and NS HEPARIN LOCK FLUSH 82136447590 Active Jonel Hemphill MD Active FENTANYL 100 MCG/HR PT72 Apply every 3 days FENTANYL 51302523660 Active Jonel Hemphill MD Active FENTANYL 25 MCG/HR PT72 Apply to clean skin and change every 72 hours. 07/03 FENTANYL 10296192994 No Longer Active Jonel Hemphill MD Active FENTANYL 50 MCG/HR PT72 place 1 patch on skin q72 hours FENTANYL 65876484150 No Longer Active Mayco Shah APRN Active HYDROCODONE-ACETAMINOPHEN 7.5-325 MG TABS 1 q 6 hrs prn HYDROCODONE-ACETAMINOPHEN 27859546568 Active Jonel Hemphill MD Active ATIVAN 0.5 MG TABS Take 1 tablet 2x daily LORAZEPAM 60349011810 Active Jonel Hemphill MD Active CELEXA 20 MG TABS Take 1 tablet 1x daily CITALOPRAM HYDROBROMIDE 68129559747 Active Jonel Hemphill MD Active MIRALAX POWD 17 gms in 4 oz water or juice daily POLYETHYLENE GLYCOL 3350 89257033387 Active Rubin Pierre MD Active DURAGESIC-12 12 MCG/HR PT72 APPLY PATCH TO SKIN AND CHANGE EVERY 72 HOURS, ROTATE SITES FENTANYL 70942330938 No Longer Active Fozia HERNANDEZ Active [facility] VITAMIN C 500 MG TABS 1 po daily ASCORBIC ACID 52845968263 Active Mahogany [place] Active FUROSEMIDE 20 MG TABS 1 qd FUROSEMIDE 03763118669 No Longer Active Mahogany [place] Active ADULT ASPIRIN EC LOW STRENGTH 81 MG TBEC 1 qd ASPIRIN 86176224553 Active MARY Perez Active DILANTIN 100 MG CAPS 3 cap tid PHENYTOIN SODIUM EXTENDED 51773790535 Active MARY Perez Active BUDEPRION SR 150 MG [id number] 1 bid BUPROPION HCL 31536940464 Active MARY Perez Active ALLOPURINOL 300 MG TABS 1 qd ALLOPURINOL 78959736786 Active MARY Perez Active COZAAR 100 MG TABS 1 qd LOSARTAN POTASSIUM 42867360998 Active MARY Perez Active FUROSEMIDE 20 MG TABS 1 qd FUROSEMIDE 20 MG TABS 601917 FUROSEMIDE Inactive DURAGESIC-12 12 MCG/HR PT72 APPLY PATCH TO SKIN AND CHANGE EVERY 72 HOURS, ROTATE SITES DURAGESIC-12 12 MCG/HR PT72 750532 FENTANYL Inactive FENTANYL 50 MCG/HR PT72 place 1 patch on skin q72 hours FENTANYL 50 MCG/HR PT72 358431 FENTANYL Inactive FUROSEMIDE 40 MG TABS 1 q am FUROSEMIDE 40 MG TABS 703817 FUROSEMIDE Inactive FENTANYL 75 MCG/HR PT72 place 1 patch on skin q72hrs fr pain 2012 FENTANYL 75 MCG/HR PT72 949362 FENTANYL Inactive DURAGESIC-25 25 MCG/HR PT72 place 1 patch on the skin q72hrs for pain DURAGESIC-25 25 MCG/HR PT72 747733 FENTANYL Inactive HYDROCHLOROTHIAZIDE 25 MG TABS 1 qd HYDROCHLOROTHIAZIDE 25 MG TABS 885230 HYDROCHLOROTHIAZIDE Inactive LISINOPRIL 40 MG TABS 1 qd LISINOPRIL 40 MG TABS 637711 LISINOPRIL Inactive METFORMIN HCL 500 MG TABS 1 bod with food METFORMIN HCL 500 MG TABS 320490 METFORMIN HCL Inactive METOPROLOL TARTRATE 50 MG TABS 1 bid METOPROLOL TARTRATE 50 MG TABS 021569 METOPROLOL TARTRATE Inactive GNP THERAPEUTIC-M TABS 1 qd GNP THERAPEUTIC-M TABS MULTIPLE VITAMINS-MINERALS Inactive AMBIEN 10 MG TABS 1 q hs prn AMBIEN 10 MG TABS 821600 ZOLPIDEM TARTRATE Inactive CLONIDINE HCL 0.2 MG TABS 1 q 8 hrs as needed -greater than 160-htn CLONIDINE HCL 0.2 MG TABS 153725 CLONIDINE HCL Inactive ANTIVERT 25 MG TABS 1 q 6 hrs prn ANTIVERT 25 MG TABS MECLIZINE HCL Inactive NEURONTIN 400 MG CAPS Take one by mouth 3 times daily, morning, afternoon and evening.] NEURONTIN 400 MG CAPS 556007 GABAPENTIN Inactive IMDUR 120 MG [id number] 1 qd IMDUR 120 MG [id number] ISOSORBIDE MONONITRATE Inactive [facility] MILK OF MAGNESIA [...] for arthritis pain MOBIC 15 MG TABS 244135 MELOXICAM Inactive LEVEMIR 100 UNIT/ML SOLN 5 units sub-q at bedtime LEVEMIR 100 UNIT/ML SOLN INSULIN DETEMIR Inactive FENTANYL 25 MCG/HR PT72 Apply to clean skin and change every 72 hours. 07/03 FENTANYL 25 MCG/HR PT72 275550 FENTANYL Inactive Advance Directives Directive Description Start [...] Description Chart Maintenance: Outside labs entered on [employer]et[employer] - Chemistry hemoglobin A1C, blood, as % [...] A/B - Chemistry sodium, serum 142 mmol/L 018-405 2479/01/20 potassium, serum 3.9 mmol/L 3.5-5.2 chloride, serum [...] Acid - Chemistry sodium, serum 141 mmol/L 855-655 1864/05/09 potassium, serum 3.9 mmol/L 3.5-5.2 chloride, serum [...] 3.8 mmol/L 3.5-5.2 sodium, serum 140 mmol/L 738-987 2717/02/18 urea nitrogen, blood 14 mg/dL 7-18 creatinine, [...] 5.0-8.5 Encounters Code Encounter Date Provider Facility CPT-62779 Level 3 Est. Patient 18:04:07 CDT Jonel Hemphill MD [facility] CPT-93612 Level 3 Est. Patient 17:18:03 CDT Jonel Hemphill MD [facility] CPT-28723 Level 3 Est. Patient 21:58:03 BIG DATA PLATFORM ARCHITECT Jonel Hemphill MD [facility] CPT-92205 Level 4 Est. Patient 18:03:14 CDT Jonel Yeager [facility]-39736 Level 4 Est. Patient 13:24:53 CDT Jonel Yeager [facility]-87973 Level 4 Est. Patient 09:15:44 CDT Jonel Yeager [facility]-15274 Level 4 Est. Patient 19:16:01 CDT [facility]82658 Level 4 Est. Patient 11:25:16 CDT Jonel Hemphill MD [facility] CPT-79080 Level 4 Est. Patient 09:00:40 CDT [facility]-09781 Level 4 Est. Patient 14:53:58 CDT Jonel Hemphill MD [facility] CPT-61445 Level 4 Est. Patient 22:59:01 CDT Jonel Hemphill MD [facility]-81724 Level 4 Est. Patient 09:29:57 CDT Jonel Hemphill MD [facility]-92494 Level 4 Est. Patient 12:35:53 BIG DATA PLATFORM ARCHITECT Jonel Hemphill MD [facility]-03781 Level 4 Est. Patient 22:36:09 BIG DATA PLATFORM ARCHITECT Jonel Hemphill MD [facility]-49187 Level 2 Est. Patient 15:14:15 BIG DATA PLATFORM ARCHITECT Mayco Shah APRN [facility] CPT-70613 Level 4 Est. Patient 10:36:22 BIG DATA PLATFORM ARCHITECT Jonel Hemphill MD [facility] CPT-48237 Level 4 Est. Patient 22:01:13 BIG DATA PLATFORM ARCHITECT Jonel Hemphill MD [facility]-01331 Level 3 Est. Patient 21:50:37 BIG DATA PLATFORM ARCHITECT Jonel Hemphill MD [facility] CPT-42352 Level 4 Est. Patient 15:02:43 CDT Rubin Pierre MD [facility] CPT-75190 Level 4 Est. Patient 14:27:35 CDT Jonel Hemphill MD [facility]-19783 Level 4 Est. Patient 12:41:17 CDT Jonel Hemphill MD [facility]-02556 Level 4 Est. Patient 16:18:55 CDT Jonel Hemphill MD [facility] CPT-45263 Level 4 Est. Patient 17:58:05 CDT Jonel Hemphill MD [facility] CPT-90245 Level 4 Est. Patient 22:10:06 CDT Jonel Hemphill MD [facility] CPT-71738 Level 4 Est. Patient 13:22:09 CDT Jonel Hemphill MD [facility] CPT-49140 Level 4 Est. Patient 22:52:17 BIG DATA PLATFORM ARCHITECT Jonel Hemphill MD [facility] CPT-74981 Level 3 Est. Patient 22:34:10 BIG DATA PLATFORM ARCHITECT Jonel Hemphill MD [facility] CPT-40624 Level 4 Est. Patient 07:49:20 BIG DATA PLATFORM ARCHITECT Jonel Hemphill MD [facility] Skilled CPT-27436 Level 3 Est. Patient 08:28:27 BIG DATA PLATFORM ARCHITECT Jonel Hemphill MD [facility] Procedures Code Procedure Name Date Entry Date Standard Description CPT-22989 Level 3 Usp 17:35:26 BIG DATA PLATFORM ARCHITECT CPT-10281 Level 3 Usp 18:44:49 BIG DATA PLATFORM ARCHITECT CPT-46737 Level 3 Usp 18:17:33 CDT CPT-84597 Level 3 Usp 09:25:33 CDT CPT-18400 Level 3 Usp 19:11:57 CDT CPT-44232 Level 3 Usp 09:25:52 CDT CPT-88039 Level 3 Usp 14:23:59 CDT CPT-46260 Level 3 Usp 12:09:43 CDT CPT-11030 Level 3 Usp 09:37:40 CDT CPT-73196 Level 3 Usp 18:23:02 CDT CPT-95548 Level 3 Usp 14:09:06 CDT CPT-20117 Level 3 Usp 12:43:27 BIG DATA PLATFORM ARCHITECT CPT-99366 Postop F/U Visit 14:10:15 BIG DATA PLATFORM ARCHITECT CPT-10985 [facility] 17:07:14 BIG DATA PLATFORM ARCHITECT CPT-89394 Level 3 Usp 16:14:37 BIG DATA PLATFORM ARCHITECT CPT-99115 Port a cath flush 11:47:42 CDT CPT-98438 Port a cath flush 08:29:49 CDT CPT-OV Office Visit 14:27:58 BIG DATA PLATFORM ARCHITECT
--- OUTSIDE RECORDS SUMMARY | 2016-08-07 12:11 | XMS REPORT ---
Author [facility] [employer] [facility] Address [address], [place] [id number] Phone [phone] Summary purpose TRANSITION OF CARE AUTO GENERATION [...] tests and/or laboratory data RESULTS Routine Urinalysis [id number]:30:00 Result Normal Range Units Color Nayana Clarity Hazy Specific [place] 1.034 pH 5.0 4.5-8.0 Glucose NEGATIVE Bilirubin NEGATIVE Ketones TRACE Protein 2+ Urobilinogen H 1.0 0-0.2 E.U./dL Nitrites NEGATIVE Blood 1+ Leukocytes NEGATIVE WBCs 5-10 RBCs 5-10 Squamous Epithelial No Squamous Epithelial Cells seen. Bacteria Occasional Blood Cultures [id number]:40:00 Blood Culture Plate Date and Time 03/21/2015 07:45 SourceBLOOD GRAM STAIN Gram Positive Cocci Release Date/Time: 03/21/2015 18:37 [id number]:00 Blood Culture Plate Date and Time 03/21/2015 07:22 SourceBLOOD GRAM STAIN Gram Positive Cocci Release Date/Time: 03/21/2015 18:38 PORT DRAW Chemistry [id number]:40:00 Result Normal Range Units Lactic Acid H 3.3 0.4-2.0 mmol/L [id number]:00:00 Result Normal Range Units Sodium 137 134-145 [...] 0-5 % Lymphs L 1.0 20-40 % [place] 4.0 0-10 % Reference Lab ([facility]) :55:00 Result Normal Range Units Influenza A & B, Rapid Negative Negative Body Fluid :30:00 Result Normal Range Units pH 5.0 4.5-8.0 Radiology Results :00:00 Result Normal Range Units MPV H 12.0 7.3-10.4 FL History of procedures No procedures recorded for this patient visit. Functional status Functional Status Finding Observation Time Muscle Strength RLE 3 active ROM :47 Muscle Strength LLE 3 active ROM :47 Abdomen Appearance obese :47 Abdomen soft :47 Bowel Sounds present :47 Wagner no :47 Urination normal :47 Quality dyspneic :47 Cough non-productive :47 Secretions no :47 Breath Sounds RUL wheezes :47 Breath Sounds RML wheezes :47 Breath Sounds RLL wheezes :47 Breath Sounds CECILIA wheezes :47 Breath Sounds LLL wheezes :47 Airway natural :47 Chest Tube no :47 Oxygen yes :30 Oxygen Mask Type nasal cannula :30 Oxygen Flow Rate 4 :30 Temp >100.4 yes :47 Temp <96.8 no :47 Chills with rigors no :47 HR > 90bpm yes :47 Respirations > 20 yes :47 Systolic <90 no :47 headache stiff neck no :47 Infection and 2 Yes initiated protocol :47 VAD Type tiffany-cath [id number] VAD Location Lt chest :00 VAD Site Info new :00 VAD Site Appearance WNL :00 VAD Site Color clear [id number]:00 VAD Site Patent yes :00 VAD Dressing Type occlusive :00 Nursing Note VSS. Pt to EMS stretcher. Pt discharged from ER to [facility] on diversion transfer in fair, stable condition. :30 Vital signs Type Value Date Respiration Rate 24breaths per minute :30 Pulse 125beats per minute :30 Oxygen Saturation 92% :30 BP Systolic 134mmHg :30 BP Diastolic 59mmHg [id number]:30 Temperature 103.1F [id number]:30 Height 68inches [id number]:47 Weight 385.8LB [id number]:00 Social history Type Value Smoking Status CURRENT EVERY DAY SMOKER Treatment Plan No treatment plan text is available for this visit. Hospital discharge instructions Dismissal Condition fair Disposition on DC transfered Comment: to [facility] due to diversion DC Inst/Educ Give yes Med/Side Effects Rev yes PNE Vac unknown Flu Vac 2015
--- OUTSIDE RECORDS SUMMARY | 2016-08-07 12:11 | XMS REPORT | Clinical Summary ---
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 V58.69 Resolved Jonel Hemphill MD Long-term [...] Coronary atherosclerosis of unspecified type of vessel, elem or graft FH DIABETES V18.0 Resolved Jonel [...] Coronary atherosclerosis of unspecified type of vessel, elem or graft CONSTIPATION 564.00 Resolved Jonel Hemphill [...] ICD-569.3 Inactive Jonel Hemphill MD 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 USE, CORRECTION ICD-V58.69 Inactive Jonel Hemphill MD LUMBAGO ICD-724.2 [...] skin and change every 72 hours FENTANYL 98265637304 Active Jonel Hemphill MD Active MIRALAX POWD 17 gms in 4 oz water or juice daily POLYETHYLENE GLYCOL 3350 26711476617 Active Jonel Hemphill MD Active [facility] MELATONIN 3 MG ORAL TABS 2 tabs at hs MELATONIN 18229958405 Active Jonel Hemphill MD Active MAGNESIUM GLUCONATE 500 MG ORAL TABS 1 tab twice daily MAGNESIUM GLUCONATE 21533325606 Active Jonel Hemphill MD Active OMEPRAZOLE 20 MG CPDR 1 tablet by mouth daily OMEPRAZOLE 57903241801 Active Jonel Hemphill MD Active DIGOXIN 125 MCG ORAL TABS 1 daily DIGOXIN 11001282272 Active Jonel Hemphill MD Active DILTIAZEM CD 240 MG ORAL [id number] 1 daily DILTIAZEM HCL COATED BEADS 68799404243 Active Jonel Hemphill MD Active NOVOLOG 100 UNIT/ML SC SOLN 70-140=0U 141-180=2 U 181-220=4U 221-260=6U 261- 300=8U 301-340=10U 389=181=14B 381-400=14U INSULIN ASPART 26772350197 Active Jonel Hemphill MD Active ACETAMINOPHEN 325 MG ORAL TABS 1 tab by mouth every 4 hours as needed ACETAMINOPHEN 27771405880 Active oJnel Hemphill MD Active FENTANYL 12 MCG/HR PT72 Apply to clean, dry skin and change every 72 hours FENTANYL 46529368004 No Longer Active Jonel Hemphill MD Active PHENYTOIN 50 MG CHEW 1 TAB PO BID PHENYTOIN 21208868296 No Longer Active Jonel Hemphill MD Active NORCO 5-325 MG TABS 1-2 TAB Q 6 HRS PRN HYDROCODONE- ACETAMINOPHEN 06781448225 No Longer Active Jonel Hemphill MD Active MULTIVITAMINS CAPS 1 DAILY MULTIPLE VITAMIN 71221154715 No Longer Active Jonel Hemphill MD Active BUPROPION HCL ER (SR) 150 MG [id number] 1 twice a day for depression BUPROPION HCL 05877334242 No Longer Active Jonel Hemphill MD Active LISINOPRIL 20 MG TABS 1 tablet by mouth daily LISINOPRIL 44106259369 Active Jonel Hemphill MD Active ULORIC 40 MG ORAL TABS 1 daily for gout. FEBUXOSTAT 69620023677 No Longer Active Jonel Hemphill MD Active CELEXA 20 MG TABS 1 tablet by mouth daily CITALOPRAM HYDROBROMIDE 51900058547 Active Marleni Raida Active ZOFRAN 4 MG TABS 1 po q6hr PRN Nausea ONDANSETRON HCL 61241603117 Active Jonel Hemphill MD Active XARELTO 20 MG ORAL TABS 1 daily RIVAROXABAN 37047200265 Active Jonel Hemphill MD Active JANUVIA 100 MG ORAL TABS 2 tabs daily SITAGLIPTIN PHOSPHATE 11210882402 Active Jonel Hemphill MD Active CELEXA 20 MG TABS Take 1 tablet 1x daily CITALOPRAM HYDROBROMIDE 66063562963 No Longer Active Jonel Hemphill MD Active ATIVAN 0.5 MG TABS Take 1 tablet 2x daily PRN LORAZEPAM 18222102763 No Longer Active Jonel Hemphill MD Active FUROSEMIDE 80 MG ORAL TABS 1 daily FUROSEMIDE 20554102194 Active Jonel Hemphill MD Active MECLIZINE HCL 25 MG CHEW TAB 1 four times a day as needed for dizziness 02/21 MECLIZINE HCL 41746197861 No Longer Active Jonel Hemphill MD Active ZYLOPRIM 300 MG TAB 1 BY MOUTH DAILY ALLOPURINOL 06604709579 No Longer Active Jonel Hemphill MD Active METOPROLOL TARTRATE 50 MG ORAL TABS 1 TAB BY MOUTH TWICE DAILY METOPROLOL TARTRATE 67203395555 No Longer Active Jonel Hemphill MD Active GABAPENTIN 400 MG ORAL CAPS 1 TAB BY MOUTH THREE TIMES DAILY 2015 GABAPENTIN 15427271669 No Longer Active Jonel Hemphill MD Active HYDROCODONE-ACETAMINOPHEN 7.5-325 MG TABS 1 TAB PO Q 6 HRS PRN HYDROCODONE-ACETAMINOPHEN 34724597826 Active Jonel Hemphill MD Active METFORMIN HCL 1000 MG TABS 1 tablet by mouth twice daily METFORMIN HCL 26490873140 Active Marleni Romero Active KLOR-CON 20 MEQ ORAL PACK 1 BY MOUTH DAILY POTASSIUM CHLORIDE 44551420920 Active Marleni Romero Active A+D FIRST AID EXT OINT APPLY OINTMENT AND RUFINO WRAPS TO LOWER EXTEREMETIES DAILY SKIN PROTECTANTS, MISC. 20337921562 Active Jonel Hemphill MD Active NYSTATIN 898845 UNIT/GM EXT OINT APPLY PRN TID TO GAULDING/RASH IN ABDOMINAL FOLDS NYSTATIN 18469247810 Active Jonel Hemphill MD Active GABAPENTIN 300 MG CAPS 1 CAP PO TID GABAPENTIN 85232277474 No Longer Active Jonel Hemphill MD Active DILANTIN 100 MG ORAL CAPS 1 THREE TIMES DAILY FOR SEIZURES PHENYTOIN SODIUM EXTENDED 53299815386 Active Marleni Romero Active CPAP APPLY AT HS CPAP Active Jonel Hemphill MD Active HYDROCODONE-ACETAMINOPHEN 7.5-325 MG TABS 1 q 6 hrs prn HYDROCODONE-ACETAMINOPHEN 38582549100 No Longer Active Jonel Hemphill MD Active DILANTIN 100 MG CAPS 3 cap tid PHENYTOIN SODIUM EXTENDED 76940271515 No Longer Active Jonel Hemphill MD Active BUDEPRION SR 150 MG [id number] 1 bid BUPROPION HCL 94121863071 No Longer Active Jonel Hemphill MD Active ALLOPURINOL 300 MG TABS 1 qd ALLOPURINOL 86303900363 No Longer Active Jonel Hemphill MD Active COZAAR 100 MG TABS 1 qd LOSARTAN POTASSIUM 16280766780 No Longer Active Jonel Hemphill MD Active CVS VITAMIN C 500 MG TABS 1 po daily ASCORBIC ACID 00416454835 No Longer Active Jonel Hemphill MD Active MIRALAX POWD 17 gms in 4 oz water or juice daily POLYETHYLENE GLYCOL 3350 66855586641 No Longer Active Jonel Hemphill MD Active POTASSIUM CHLORIDE CHELA ER 20 MEQ CR-TABS 1 tab PO daily POTASSIUM CHLORIDE CHELA CR 73555719649 No Longer Active Jonel Hemphill MD Active AMBIEN 10 MG TAB 1 tab by mouth at bedtime as needed for sleep ZOLPIDEM TARTRATE 07184340960 No Longer Active Jonel Hemphill MD Active SULFAMETHOXAZOLE-TMP DS 800-160 MG TABS 1 TAB PO BID SULFAMETHOXAZOLE-TRIMETHOPRIM 70316632354 No Longer Active Jonel Hemphill MD Active LEVEMIR 100 UNIT/ML SOLN 5 units sub-q at bedtime INSULIN DETEMIR 99441644582 No Longer Active Tova Perez Active MOBIC 15 MG TABS 1 tab PO daily for arthritis pain MELOXICAM 49799129172 No Longer Active Tova Perez Active GLUCAGEN 1 MG SOLR INJECT 1MG IM IF BS LESS THAN 60 & RES. IS UNABLE TO SWALLOW GLUCAGON HCL (RDNA) 48810878477 No Longer Active Tova Perez Active [facility]S MILK OF MAGNESIA 1200 MG/15ML SUSP 30 ml daily for constipation MAGNESIUM HYDROXIDE 82968415692 No Longer Active Tova Perez Active IMDUR 120 MG [id number] 1 qd ISOSORBIDE MONONITRATE 03070021150 No Longer Active Tova Perez Active NEURONTIN 400 MG CAPS Take one by mouth 3 times daily, morning, afternoon and evening.] GABAPENTIN 82713656687 No Longer Active Tova Perez Active ANTIVERT 25 MG TABS 1 q 6 hrs prn MECLIZINE HCL 64002614733 No Longer Active Jonel Hemphill MD Active CLONIDINE HCL 0.2 MG TABS 1 q 8 hrs as needed -greater than 160-htn CLONIDINE HCL 55000294405 No Longer Active Jonel Hemphill MD Active AMBIEN 10 MG TABS 1 q hs prn ZOLPIDEM TARTRATE 46816253484 No Longer Active Jonel Hemphill MD Active GNP THERAPEUTIC-M TABS 1 qd MULTIPLE VITAMINS- MINERALS 75627221942 No Longer Active Jonel Hemphill MD Active METOPROLOL TARTRATE 50 MG TABS 1 bid METOPROLOL TARTRATE 51886820790 No Longer Active Jonel Hemphill MD Active METFORMIN HCL 500 MG TABS 1 bod with food METFORMIN HCL 72513113090 No Longer Active Jonel Hemphill MD Active LISINOPRIL 40 MG TABS 1 qd LISINOPRIL 78399381610 No Longer Active Jonel Hemphill MD Active HYDROCHLOROTHIAZIDE 25 MG TABS 1 qd HYDROCHLOROTHIAZIDE 29532533078 No Longer Active Jonel Hemphill MD Active DURAGESIC-25 25 MCG/HR PT72 place 1 patch on the skin q72hrs for pain FENTANYL 88860931479 No Longer Active Jonel Hemphill MD Active FENTANYL 75 MCG/HR PT72 place 1 patch on skin q72hrs fr pain 2012 FENTANYL 28715952698 No Longer Active Jonel Hemphill MD Active FUROSEMIDE 40 MG TABS 1 q am FUROSEMIDE 28240130516 No Longer Active Jonel Hemphill MD Active HEPARIN (PORCINE) LOCK FLUSH 100 UNIT/ML SOLN Flush port a cath monthly every three week on with Heparin and NS HEPARIN LOCK FLUSH 60535226062 Active Jonel Hemphill MD Active FENTANYL 100 MCG/HR PT72 Apply every 3 days FENTANYL 07380212645 Active Jonel Hemphill MD Active FENTANYL 25 MCG/HR PT72 Apply to clean skin and change every 72 hours. 07/03 FENTANYL 53386046016 No Longer Active Jonel Hemphill MD Active FENTANYL 50 MCG/HR PT72 place 1 patch on skin q72 hours FENTANYL 70826320816 No Longer Active Mayco Shah APRN Active DURAGESIC-12 12 MCG/HR PT72 APPLY PATCH TO SKIN AND CHANGE EVERY 72 HOURS, ROTATE SITES FENTANYL 67384087001 No Longer Active Fozia HERNANDEZ Active FUROSEMIDE 20 MG TABS 1 qd FUROSEMIDE 60028326325 No Longer Active Mahogany Everly Active ADULT ASPIRIN EC LOW STRENGTH 81 MG TBEC 1 qd ASPIRIN 65407702265 Active MARY Perez Active FUROSEMIDE 20 MG TABS 1 qd FUROSEMIDE 20 MG TABS 070837 FUROSEMIDE Inactive DURAGESIC-12 12 MCG/HR PT72 APPLY PATCH TO SKIN AND CHANGE EVERY 72 HOURS, ROTATE SITES DURAGESIC-12 12 MCG/HR PT72 075331 FENTANYL Inactive FENTANYL 50 MCG/HR PT72 place 1 patch on skin q72 hours FENTANYL 50 MCG/HR PT72 859198 FENTANYL Inactive FUROSEMIDE 40 MG TABS 1 q am FUROSEMIDE 40 MG TABS 956278 FUROSEMIDE Inactive FENTANYL 75 MCG/HR PT72 place 1 patch on skin q72hrs fr pain 2012 FENTANYL 75 MCG/HR PT72 462104 FENTANYL Inactive DURAGESIC-25 25 MCG/HR PT72 place 1 patch on the skin q72hrs for pain DURAGESIC-25 25 MCG/HR PT72 261585 FENTANYL Inactive HYDROCHLOROTHIAZIDE 25 MG TABS 1 qd HYDROCHLOROTHIAZIDE 25 MG TABS 834075 HYDROCHLOROTHIAZIDE Inactive LISINOPRIL 40 MG TABS 1 qd LISINOPRIL 40 MG TABS 530726 LISINOPRIL Inactive METFORMIN HCL 500 MG TABS 1 bod with food METFORMIN HCL 500 MG TABS 599768 METFORMIN HCL Inactive METOPROLOL TARTRATE 50 MG TABS 1 bid METOPROLOL TARTRATE 50 MG TABS 123278 METOPROLOL TARTRATE Inactive GNP THERAPEUTIC-M TABS 1 qd GNP THERAPEUTIC-M TABS MULTIPLE VITAMINS-MINERALS Inactive AMBIEN 10 MG TABS 1 q hs prn AMBIEN 10 MG TABS 157095 ZOLPIDEM TARTRATE Inactive CLONIDINE HCL 0.2 MG TABS 1 q 8 hrs as needed -greater than 160-htn CLONIDINE HCL 0.2 MG TABS 001410 CLONIDINE HCL Inactive ANTIVERT 25 MG TABS 1 q 6 hrs prn ANTIVERT 25 MG TABS MECLIZINE HCL Inactive NEURONTIN 400 MG CAPS Take one by mouth 3 times daily, morning, afternoon and evening.] NEURONTIN 400 MG CAPS 823803 GABAPENTIN Inactive IMDUR 120 MG [id number] 1 qd IMDUR 120 MG [id number] ISOSORBIDE MONONITRATE Inactive [facility]S MILK OF MAGNESIA [...] for arthritis pain MOBIC 15 MG TABS 412180 MELOXICAM Inactive LEVEMIR 100 UNIT/ML SOLN 5 units sub-q at bedtime LEVEMIR 100 UNIT/ML SOLN INSULIN DETEMIR Inactive SULFAMETHOXAZOLE-TMP DS 800-160 MG TABS 1 TAB PO BID SULFAMETHOXAZOLE-TMP DS 800-160 MG TABS 295754 SULFAMETHOXAZOLE-TRIMETHOPRIM Inactive AMBIEN 10 MG TAB 1 tab by mouth at bedtime as needed for sleep AMBIEN 10 MG TAB 727589 ZOLPIDEM TARTRATE Inactive POTASSIUM CHLORIDE CHELA ER 20 MEQ CR-TABS 1 tab PO daily POTASSIUM CHLORIDE CHELA ER 20 MEQ CR-TABS POTASSIUM CHLORIDE CHELA CR Inactive MIRALAX POWD 17 gms in 4 oz water or juice daily MIRALAX POWD 759294 POLYETHYLENE GLYCOL 3350 Inactive CVS VITAMIN C 500 MG TABS 1 po daily CVS VITAMIN C 500 MG TABS 079169 ASCORBIC ACID Inactive COZAAR 100 MG TABS 1 qd COZAAR 100 MG TABS 804144 LOSARTAN POTASSIUM Inactive ALLOPURINOL 300 MG TABS 1 qd ALLOPURINOL 300 MG TABS 251565 ALLOPURINOL Inactive BUDEPRION SR 150 MG [id number] 1 bid BUDEPRION SR 150 MG [id number] BUPROPION HCL Inactive DILANTIN 100 MG CAPS 3 cap tid DILANTIN 100 MG CAPS 348286 PHENYTOIN SODIUM EXTENDED Inactive HYDROCODONE-ACETAMINOPHEN 7.5-325 MG TABS 1 q 6 hrs prn HYDROCODONE-ACETAMINOPHEN 7.5-325 MG TABS 801449 HYDROCODONE- ACETAMINOPHEN Inactive GABAPENTIN 300 MG CAPS 1 CAP PO TID GABAPENTIN 300 MG CAPS 865041 GABAPENTIN Inactive GABAPENTIN 400 MG ORAL CAPS 1 TAB BY MOUTH THREE TIMES DAILY 2015 GABAPENTIN 400 MG ORAL CAPS 680573 GABAPENTIN Inactive METOPROLOL TARTRATE 50 MG ORAL TABS 1 TAB BY MOUTH TWICE DAILY METOPROLOL TARTRATE 50 MG ORAL TABS 819001 METOPROLOL TARTRATE Inactive ZYLOPRIM 300 MG TAB 1 BY MOUTH DAILY ZYLOPRIM 300 MG TAB 676150 ALLOPURINOL Inactive MECLIZINE HCL 25 MG CHEW TAB 1 four times a day as needed for dizziness 02/21 MECLIZINE HCL 25 MG CHEW TAB 027703 MECLIZINE HCL Inactive ATIVAN 0.5 MG TABS Take 1 tablet 2x daily PRN ATIVAN 0.5 MG TABS 815243 LORAZEPAM Inactive CELEXA 20 MG TABS Take 1 tablet 1x daily CELEXA 20 MG TABS 151020 CITALOPRAM HYDROBROMIDE Inactive ULORIC 40 MG ORAL TABS 1 daily for gout. ULORIC 40 MG ORAL TABS FEBUXOSTAT Inactive BUPROPION HCL ER (SR) 150 MG [id number] 1 twice a day for depression BUPROPION HCL ER (SR) 150 MG [id number] BUPROPION HCL Inactive MULTIVITAMINS CAPS 1 DAILY MULTIVITAMINS CAPS MULTIPLE VITAMIN Inactive NORCO 5-325 MG TABS 1-2 TAB Q 6 HRS PRN NORCO 5-325 MG TABS 992634 HYDROCODONE-ACETAMINOPHEN Inactive PHENYTOIN 50 MG CHEW 1 TAB PO BID PHENYTOIN 50 MG CHEW 7292436 PHENYTOIN Inactive FENTANYL 12 MCG/HR PT72 Apply to clean, dry skin and change every 72 hours FENTANYL 12 MCG/HR PT72 374463 FENTANYL Inactive FENTANYL 25 MCG/HR PT72 Apply to clean skin and change every 72 hours. 07/03 FENTANYL 25 MCG/HR PT72 635850 FENTANYL Inactive Advance Directives Directive Description Start [...] mg/dL Encounters Code Encounter Date Provider Facility CPT-11779 Level 4 Est. Patient 10:04:48 DIRECTOR SERVICE Jonel Hemphill MD [facility]-48284 Level 3 Est. Patient 19:05:03 CDT Jonel Hemphill MD [facility]-69999 Level 3 Est. Patient 17:30:47 CDT Kevin Link MD [facility]-10668 Level 3 Est. Patient 18:04:07 CDT Jonel Hemphill MD [facility] CPT-60731 Level 3 Est. Patient 17:18:03 CDT Jonel Hemphill MD [facility]-52855 Level 3 Est. Patient 21:58:03 DIRECTOR SERVICE Jonel Hemphill MD [facility]-41608 Level 4 Est. Patient 18:03:14 CDT Jonel Yeager [facility]-32964 Level 4 Est. Patient 13:24:53 CDT Jonel Yeager [facility]-83129 Level 4 Est. Patient 09:15:44 CDT Jonel Yeager [facility]-40388 Level 4 Est. Patient 19:16:[address] [facility]-59865 Level 4 Est. Patient 11:25:16 CDT Jonel Hemphill MD [facility] CPT-09861 Level 4 Est. Patient 09:00:40 CDT Jonel Yeager of [place] CPT-48089 Level 4 Est. Patient 14:53:58 CDT Jonel Hemphill MD [facility] CPT-86006 Level 4 Est. Patient 22:59:01 CDT Jonel Hemphill MD [facility]-41719 Level 4 Est. Patient 09:29:57 CDT Jonel Hemphill MD [facility]-06403 Level 4 Est. Patient 12:35:53 DIRECTOR SERVICE Jonel Hemphill MD [facility]-46633 Level 4 Est. Patient 22:36:09 DIRECTOR SERVICE Jonel Hemphill MD [facility]-95376 Level 2 Est. Patient 15:14:15 DIRECTOR SERVICE Mayco Shah APRN [facility] CPT-13578 Level 4 Est. Patient 10:36:22 DIRECTOR SERVICE Jonel Hemphill MD [facility] CPT-63066 Level 4 Est. Patient 22:01:13 DIRECTOR SERVICE Jonel Hemphill MD [facility]-33690 Level 3 Est. Patient 21:50:37 DIRECTOR SERVICE Jonel Hemphill MD [facility]-13809 Level 4 Est. Patient 15:02:43 CDT Rubin Pierre MD [facility] CPT-93989 Level 4 Est. Patient 14:27:35 CDT Jonel Hemphill MD [facility]-09440 Level 4 Est. Patient 12:41:17 CDT Jonel Hemphill MD [facility]-14217 Level 4 Est. Patient 16:18:55 CDT Jonel Hemphill MD [facility]-23452 Level 4 Est. Patient 17:58:05 CDT Jonel Hemphill MD [facility]-65809 Level 4 Est. Patient 22:10:06 CDT Jonel Hemphill MD [facility]-37192 Level 4 Est. Patient 13:22:09 CDT Jonel Hemphill MD [facility] CPT-13533 Level 4 Est. Patient 22:52:17 DIRECTOR SERVICE Jonel Hemphill MD [facility] CPT-22953 Level 3 Est. Patient 22:34:10 DIRECTOR SERVICE Jonel Hemphill MD [facility] CPT-02077 Level 4 Est. Patient 07:49:20 DIRECTOR SERVICE Jonel Hemphill MD [facility] Skilled CPT-30638 Level 3 Est. Patient 08:28:27 DIRECTOR SERVICE Jonel Hemphill MD [facility] Procedures Code Procedure Name Date Entry Date Standard Description CPT-28218 Level 3 Alf 17:57:17 DIRECTOR SERVICE CPT-17029 Level 3 Alf 21:14:15 DIRECTOR SERVICE CPT-27748 Level 3 Alf 15:38:24 CDT CPT-33658 Level 3 Alf 08:18:30 CDT CPT-28934 Level 3 Alf 19:03:14 CDT CPT-00376 Level 3 Alf 17:42:11 CDT CPT-00906 Level 3 Alf 16:04:10 CDT CPT-48730 Level 3 Alf 19:38:15 DIRECTOR SERVICE CPT-64032 Level 3 Alf 19:28:48 DIRECTOR SERVICE CPT-44872 Level 3 Alf 18:02:20 DIRECTOR SERVICE CPT-39657 Level 3 Alf 15:02:14 DIRECTOR SERVICE CPT-98135 Level 3 Alf 12:25:37 CDT CPT-36664 Level 3 Alf 12:48:39 CDT CPT-21604 Level 3 Alf 17:39:14 CDT CPT-99505 Level 3 Alf 13:32:58 CDT CPT-97018 Level 3 Alf 17:43:43 CDT CPT-17315 Level 3 Alf 12:03:33 DIRECTOR SERVICE CPT-34763 Level 3 Alf 18:47:28 DIRECTOR SERVICE CPT-07065 Level 3 Alf 17:35:26 DIRECTOR SERVICE CPT-87265 Level 3 Alf 18:44:49 DIRECTOR SERVICE CPT-40635 Level 3 Alf 18:17:33 CDT CPT-24782 Level 3 Alf 09:25:33 CDT CPT-64582 Level 3 Alf 19:11:57 CDT CPT-42274 Level 3 Alf 09:25:52 CDT CPT-92216 Level 3 Alf 14:23:59 CDT CPT-30463 Level 3 Alf 12:09:43 CDT CPT-36217 Level 3 Alf 09:37:40 CDT CPT-06131 Level 3 Alf 18:23:02 CDT CPT-98836 Level 3 Alf 14:09:06 CDT CPT-44226 Level 3 Alf 12:43:27 DIRECTOR SERVICE CPT-23554 Postop F/U Visit 14:10:15 DIRECTOR SERVICE CPT-15318 [facility] 17:07:14 DIRECTOR SERVICE CPT-73279 Level 3 Alf 16:14:37 DIRECTOR SERVICE CPT-91232 Port a cath flush 11:47:42 CDT CPT-65873 Port a cath flush 08:29:49 CDT CPT-OV Office Visit 14:27:58 DIRECTOR SERVICE
--- OUTSIDE RECORDS SUMMARY | 2016-08-07 12:11 | XMS REPORT ---
Author Author [facility] Medical Staff Organization [facility] Address [address] [place], [place] [id number] Phone [phone] Care Team Providers Care Family Service Worker Name Role Phone FRANKO PRIETO MD PP [phone] Summary purpose [facility]A Sent to [facility] Chief Complaint and Reason for Visit No authorized Reason for Visit (Admitting Diagnosis) is available for this visit. Problem list No authorized problems tracked for continuity of care are available for this visit. Encounters No authorized problems tracked for encounter diagnoses are available for this visit. Medications Discharge Medications Status Medication Directions Current acetaminophen (TYLENOL) 325 mg: TABLET 325 MG oral EVERY FOUR HOURS NEEDED for PAIN Current albuterol sulfate (ALBUTEROL) 2.5 mg /3 mL (0.083 %): NEBULE 2.5 MG inhalation Give INHL EVERY SIX HOURS NEEDED for SOB Current allopurinol (ZYLOPRIM) 100 mg: TABLET 100 MG oral ONE TIME A DAY Current alum-mag hydroxide-simeth (MAALOX) 400-400-40 mg/5 mL: SUSPENSION 30 milliliter(s) oral EVERY FOUR HOURS NEEDED for GI UPSET Current digoxin (LANOXIN) 125 mcg: TABLET 125 MCG oral ONE TIME A DAY Current diltiazem HCl (DILTIAZEM) 120 mg: ER 24HR Cap 240 MG oral ONE TIME A DAY Current docusate sodium (COLACE) 100 mg: capsule 100 MG oral TWO TIMES A DAY Current DULoxetine (CYMBALTA) 30 mg: Cap DR 30 MG oral TWO TIMES A DAY Current fentaNYL (DURAGESIC) 100 mcg/hr: PATCH TD72 1 PATCH Transdermal Give TD EVERY SEVENTY TWO HOURS Current fentaNYL (DURAGESIC) 12 mcg/hr: PATCH TD72 1 PATCH Transdermal Give TD EVERY SEVENTY TWO HOURS Current furosemide (LASIX) 80 mg: TABLET 80 MG oral ONE TIME A DAY Current HYDROcodone-acetaminophen (HYDROCODONE/APAP) 7.5-325 mg: TABLET 1 TAB oral EVERY SIX HOURS NEEDED for PAIN Current insulin aspart (NOVOLOG) 100 unit/mL: VIAL DR. BILLY'S SLIDING SCALE subcutaneous Give SUBQ WITH MEALS AND BEDTIME Current LACTULOSE 20 gram/30 mL: SOLUTION 20 GM oral TWO TIMES A DAY NEEDED for CONSTIPATION Current lisinopril (ZESTRIL) 20 mg: TABLET 20 MG oral ONE TIME A DAY Current magnesium hydroxide (MILK OF MAGNESIA) 400 mg/5 mL: SUSPENSION 30 milliliter(s) oral NEEDED for CONSTIPATION Current MAGNESIUM OXIDE 400 mg: TABLET 400 MG oral TWO TIMES A DAY Current MELATONIN 3 mg: TABLET 6 MG oral DAILY AT 8 PM Current metFORMIN (GLUCOPHAGE) 500 mg: TABLET 1000 MG oral TWO TIMES A DAY Current NYSTATIN 100,000 unit/gram: OINTMENT 1 APPLIC topical Give TOP TWO TIMES A DAY NEEDED for RASH Current ondansetron (ZOFRAN ODT) 4 mg: ODT 4 MG oral EVERY SIX HOURS NEEDED for NAUSEA Current pantoprazole (PROTONIX) 40 mg: Tab DR 40 MG oral ONE TIME A DAY Current phenytoin sodium extended (DILANTIN) 100 mg: capsule 100 MG oral THREE TIMES A DAY Current polyethylene glycol 3350 (MIRALAX) 17 gram: POWD PACK 17 GM oral ONE TIME A DAY NEEDED for CONSTIPATION Current potassium chloride (KLOR-CON) 20 mEq: Tab ER 12HR 40 MEQ oral ONE TIME A DAY Current rivaroxaban (XARELTO) 20 mg: TABLET 20 MG oral DAILY AT 5 PM Current senna (EX-LAX) 8.6 mg: TABLET 17.2 MG oral BEDTIME Current sitaGLIPtin (JANUVIA) 50 mg: TABLET 100 MG oral ONE TIME A DAY Current thiamine HCl (VITAMIN B-1) 100 mg: TABLET 200 MG oral ONE TIME A DAY Current vits A & D-white pet-lanolin (VITAMIN A & D): OINTMENT 1 APPLIC topical Give TOP ONE TIME A DAY Stopped A & D topical ointment 1 application(s) topical ONE TIME A DAY Stopped albuterol sulfate 2.5 mg/3 mL (0.083 %) solution for nebulization 1 inhalation(s) inhalation EVERY SIX HOURS NEEDED Stopped Celexa 20 mg tablet 20 miligram(s) oral ONE TIME A DAY Stopped digoxin 125 mcg tablet 0.125 miligram(s) oral ONE TIME A DAY hold if apical pulse is < 60 Stopped diltiazem CD 240 mg capsule,extended release 24 hr 240 miligram(s) oral ONE TIME A DAY Stopped fentaNYL 100 mcg/hr transdermal patch 1 patch(es) Transdermal EVERY SEVENTY TWO HOURS Stopped fentaNYL 12 mcg/hr transdermal patch 1 patch(es) Transdermal EVERY SEVENTY TWO HOURS Apply with 100mcg patch in=[id number]. Stopped Januvia 100 mg tablet 100 miligram(s) oral ONE TIME A DAY Stopped Lasix 80 mg tablet 80 miligram(s) oral ONE TIME A DAY Hold if blood pressure sys is <130 Stopped lisinopril 20 mg tablet 20 miligram(s) oral ONE TIME A DAY Hold if bp pulse < 60 or systolic <130 Stopped magnesium gluconate 500 mg tablet 500 miligram(s) oral TWO TIMES A DAY Stopped melatonin 3 mg tablet 6 miligram(s) oral DAILY AT 8 PM Stopped metFORMIN 1,000 mg tablet 1000 miligram(s) oral TWO TIMES A DAY with large meal Stopped Miralax 17 gram oral powder packet 17 gram(s) oral ONE TIME A DAY NEEDED Stopped [place] 7.5 mg-325 mg tablet 1 tab(s) oral EVERY SIX HOURS NEEDED Stopped Novolog Flexpen 100 unit/mL subcutaneous 100 unit(s) subcutaneous FOUR TIMES A DAY see nh mar 100 units per1cc Stopped nystatin 100,000 unit/gram topical ointment 1 application(s) topical TWO TIMES A DAY NEEDED Stopped omeprazole 20 mg capsule,delayed release 20 miligram(s) oral ONE TIME A DAY Stopped phenytoin sodium extended 100 mg capsule 100 miligram(s) oral THREE TIMES A DAY Stopped potassium chloride ER 20 mEq tablet,extended release(part/cryst) 40 milliequivilant(s) oral ONE TIME A DAY Stopped thiamine HCl (vitamin B1) 100 mg tablet 200 miligram(s) oral ONE TIME A DAY Stopped Tylenol 325 mg tablet 325 miligram(s) oral EVERY FOUR HOURS NEEDED Stopped Uloric 40 mg tablet 40 miligram(s) oral ONE TIME A DAY Stopped Xarelto 20 mg tablet 20 miligram(s) oral DAILY AT 5 PM Stopped Zofran ODT 4 mg disintegrating tablet 4 miligram(s) oral EVERY SIX HOURS NEEDED sublingual Allergies, adverse reactions, alerts Allergen Category Ingredient Status Reaction Severity Onset Penicillins Drug Penicillins Active Immunizations No immunizations recorded for this patient visit Relevant diagnostic tests and/or laboratory data RESULTS CBC :10:00 Result Normal Range Units WBC 8.25 4.60-10.20 x 103/uL RBC 4.40 4.04-6.13 x 106/uL Hemoglobin 13.5 12.2-18.1 g/dl Hematocrit 41.0 37.7-53.7 % MCV 93.2 80.0-97.0 FL MCH 30.7 27.0-31.2 pg MCHC 32.9 31.8-35.4 g/dl RDW H 15.7 11.6-14.8 % Platelets 153 142-424 x 103/uL MPV 12.3 9.4-12.4 FL Manual Diff Not Indicated Neutrophil % 59.1 37-80 % Neutrophils 4.88 2.0-6.9 x 103/uL Lymphocyte % 29.8 10-50 % Lymphocytes 2.46 0.6-3.4 x 103/uL Monocyte % 9.5 0-12 % Monocytes 0.78 0.0-1.0 x 103/uL Eosinophil % 1.5 0-7 % Eosinophils 0.12 0-0.7 x 103/uL Basophil % 0.1 0-2 % Basophils 0.01 0.0-0.1 x 103/uL Urinalysis :47:00 Result Normal Range Units Site Voided Urine Color Yellow Yellow Urine Appearance Clear Clear Urine Glucose Negative Negative Urine Bilirubin Negative Negative Urine Ketones Negative Negative Urine Specific [place] H 1.025 1.010-1.020 Urine PH 5.5 5.5-7.5 Urine Protein Negative Negative Urine Urobilinogen 0.2 0.2-1.0 Urine Nitrites Negative Negative Urine Blood Negative Negative Urine Leukocytes Negative Negative culture already ordered Urine WBC's None Seen Urine RBC's None Seen Chemistry Group :10:00 Result Normal Range Units Glucose H 147 70-99 mg/dl BUN 21 7-26 mg/dl Creatinine 1.2 0.6-1.3 mg/dl Sodium L 135 136-145 mmol/L Potassium H 5.4 3.5-5.1 mmol/L Chloride 100 98-107 mmol/L CO2 25 22-29 mmol/L BUN/Creatinine Ratio 18 7-25 Ratio Calcium 9.9 8.4-10.2 mg/dl Protein Total 8.0 6.4-8.3 g/dl Albumin 4.2 3.5-5.0 g/dl A/G Ratio L 1.1 1.2-2.2 Ratio AST H 58 5-34 U/L ALT 29 0-55 U/L ALP 42 40-150 U/L Bilirubin Total 0.3 0.2-1.2 mg/dl Osmolality 267 261-280 mOsm/kg Globulin H 3.8 2.4-3.5 g/dl Phenytoin L 2.34 10-20 ug/ml Digoxin L < 0.30 0.8-2.0 ng/ml TSH 1.14 0.35-4.94 uIU/mL Reference Lab Group :10:00 EKG See Manual Report Urinalysis :47:00 Result Normal Range Units Site Voided Urine Color Yellow Yellow Urine Appearance Clear Clear Urine Glucose Negative Negative Urine Bilirubin Negative Negative Urine Ketones Negative Negative Urine Specific [place] H 1.025 1.010-1.020 Urine PH 5.5 5.5-7.5 Urine Protein Negative Negative Urine Urobilinogen 0.2 0.2-1.0 Urine Nitrites Negative Negative Urine Blood Negative Negative Urine Leukocytes Negative Negative culture already ordered Urine WBC's None Seen Urine RBC's None Seen History of procedures No procedures recorded for this patient visit. Functional status Functional Status Finding Observation Time Dexterity Right-handed :30 Weight Bearing Statu Limited(see comment) Comment: minimal x1 assist to stand and transfer, w/c for mobiltiy 12-02-2015 20:30 Transferring/Ambulat Needs Assistance Comment: needs minimal assistance to transfer, no assistance with wheeling self in w/c :30 Bathing Needs Assistance :30 Dressing Needs Assistance :30 Eating Independent :30 Drinking Independent :30 Toileting Needs Assistance :30 Able to Turn Self in Independent :30 Stairs Not Done :30 Wheelchair Yes :30 Cognitive Status Finding Observation Time Level of Consciousne Alert :43 Oriented to Person Yes :[address] Yes :43 Oriented to Time Yes :43 Eyes - BART Yes :43 Vital signs Type Value Date Respirations 18 :50 Pulse 89 :50 O2 Saturation 96% :50 Systolic Blood Press 136mm/HG :50 Diastolic Blood Pres 77mm/HG :50 Temperature (Fahr) 96.4Degrees :50 Height 68in :32 Weight 336.2LB :15 Social history Type Value Smoking Status NEVER SMOKER Treatment Plan Treatment Plan at Di Follow up with physician and mental health appointments Hospital discharge instructions Diagnosis agitation and aggression Diet 1800 ADA Activity Level as tolerated Personal Items Retur Yes Flu Vaccine Given Current/Not Needed Pneumonia Vaccine Gi Pt Refused (specify) Follow up with Dr. Franko Belcher Appointment Date and See Comments Comment: Patient will be seen at facility when doctor makes rounds per Mattie at physician's office. Follow up with [facility] [place] Appointment Date and 12/17/15# 3 pm Comment: counseling with Nilsa Benítez. Bring ID, proof of income and insurance cards. Other Instructions Skilled orders for PT /OT and medication management to evaluate and treat per Trina Lo APRN. 12/07/15
--- OUTSIDE RECORDS SUMMARY | 2016-08-07 12:13 | XMS REPORT | Clinical Summary ---
Author Author Admin, [place] Organization [facility] Address Unknown Phone Unavailable Allergies, Adverse Reactions, Alerts Allergy Name Reaction Description Start Date Severity Status Provider PENICILLIN Critical Active [place] Giles, RMA Conditions or Problems Problem Name 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, TRAVEL JOURNALIST V58.69 Resolved Jonel Hemphill MD Long-term (current) [...] Coronary atherosclerosis of unspecified type of vessel, [place] or graft FH DIABETES V18.0 Resolved Jonel [...] Coronary atherosclerosis of unspecified type of vessel, [place] or graft CONSTIPATION 564.00 Resolved Jonel Hemphill [...] Other malaise and fatigue Nightmares 307.47 Resolved oJnel Hemphill MD Other dysfunctions of sleep stages [...] Obstructive sleep apnea (adult) (pediatric) 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 USE, TRAVEL JOURNALIST ICD-V58.69 Inactive Jonel Hemphill MD DIABETES, TYPE [...] Hemphill MD CELLULITIS, LEG, RIGHT ICD-682.6 Inactive Jonle Hemphill MD CALLUS, RIGHT FOOT ICD-700 Inactive [...] skin and change every 72 hours FENTANYL 78094165866 Active Tova Chris Active MIRALAX POWD 17 gms in 4 oz water or juice daily POLYETHYLENE GLYCOL 3350 51945462191 Active oJnel Hemphill MD Active CVS MELATONIN 3 MG ORAL TABS 2 tabs at hs MELATONIN 39257207636 Active Jonel Hemphill MD Active MAGNESIUM GLUCONATE 500 MG ORAL TABS 1 tab twice daily MAGNESIUM GLUCONATE 17267048347 Active Jonel Hemphill MD Active OMEPRAZOLE 20 MG CPDR 1 tablet by mouth daily OMEPRAZOLE 55216110381 Active Jonel Hemphill MD Active DIGOXIN 125 MCG ORAL TABS 1 daily DIGOXIN 87745767386 Active Jonel Hemphill MD Active DILTIAZEM CD 240 MG ORAL [id number] 1 daily DILTIAZEM HCL COATED BEADS 81850074288 Active Jonel Hemphill MD Active NOVOLOG 100 UNIT/ML SC SOLN 70-140=0U 141-180=2 U 181-220=4U 221-260=6U 261- 300=8U 301-340=10U 278=465=10N 381-400=14U INSULIN ASPART 48243167109 Active Jonel Hemphill MD Active ACETAMINOPHEN 325 MG ORAL TABS 1 tab by mouth every 4 hours as needed ACETAMINOPHEN 67113992921 Active Jonel Hemphill MD Active FENTANYL 12 MCG/HR PT72 Apply to clean, dry skin and change every 72 hours FENTANYL 83491306585 No Longer Active Jonel Hemphill MD Active PHENYTOIN 50 MG CHEW 1 TAB PO BID PHENYTOIN 98789876393 No Longer Active Jonel Hemphill MD Active NORCO 5-325 MG TABS 1-2 TAB Q 6 HRS PRN HYDROCODONE- ACETAMINOPHEN 35827740107 No Longer Active Jonel Hemphill MD Active MULTIVITAMINS CAPS 1 DAILY MULTIPLE VITAMIN 08882736242 No Longer Active Jonel Hemphill MD Active BUPROPION HCL ER (SR) 150 MG [id number] 1 twice a day for depression BUPROPION HCL 12413550533 No Longer Active Jonel Hemphill MD Active LISINOPRIL 20 MG TABS 1 tablet by mouth daily LISINOPRIL 84487226609 Active Jonel Hemphill MD Active ULORIC 40 MG ORAL TABS 1 daily for gout. FEBUXOSTAT 36423975647 No Longer Active Jonel Hemphill MD Active CELEXA 20 MG TABS 1 tablet by mouth daily CITALOPRAM HYDROBROMIDE 25575548589 Active Marleni Raida Active ZOFRAN 4 MG TABS 1 po q6hr PRN Nausea ONDANSETRON HCL 01760055979 Active Jonel Hemphill MD Active XARELTO 20 MG ORAL TABS 1 daily RIVAROXABAN 95626663340 Active Jonel Hemphill MD Active JANUVIA 100 MG ORAL TABS 2 tabs daily SITAGLIPTIN PHOSPHATE 35130403573 Active Jonel Hemphill MD Active CELEXA 20 MG TABS Take 1 tablet 1x daily CITALOPRAM HYDROBROMIDE 87153730997 No Longer Active Jonel Hemphill MD Active ATIVAN 0.5 MG TABS Take 1 tablet 2x daily PRN LORAZEPAM 37430139874 No Longer Active Jonel Hemphill MD Active FUROSEMIDE 80 MG ORAL TABS 1 daily FUROSEMIDE 22686655182 Active Jonel Hemphill MD Active MECLIZINE HCL 25 MG CHEW TAB 1 four times a day as needed for dizziness 02/21 MECLIZINE HCL 45947763421 No Longer Active Jonel Hemphill MD Active ZYLOPRIM 300 MG TAB 1 BY MOUTH DAILY ALLOPURINOL 54059428737 No Longer Active Jonel Hemphill MD Active METOPROLOL TARTRATE 50 MG ORAL TABS 1 TAB BY MOUTH TWICE DAILY METOPROLOL TARTRATE 63815725412 No Longer Active Jonel Hemphill MD Active GABAPENTIN 400 MG ORAL CAPS 1 TAB BY MOUTH THREE TIMES DAILY 2015 GABAPENTIN 27350810173 No Longer Active Jonel Hemphill MD Active HYDROCODONE-ACETAMINOPHEN 7.5-325 MG TABS 1 TAB PO Q 6 HRS PRN HYDROCODONE-ACETAMINOPHEN 78068614709 Active Jonel Hemphill MD Active METFORMIN HCL 1000 MG TABS 1 tablet by mouth twice daily METFORMIN HCL 54091718460 Active Marleni Romero Active KLOR-CON 20 MEQ ORAL PACK 1 BY MOUTH DAILY POTASSIUM CHLORIDE 24148897989 Active Marleni Romero Active A+D FIRST AID EXT OINT APPLY OINTMENT AND RUFINO WRAPS TO LOWER EXTEREMETIES DAILY SKIN PROTECTANTS, MISC. 21131342277 Active Jonel Hemphill MD Active NYSTATIN 521992 UNIT/GM EXT OINT APPLY PRN TID TO GAULDING/RASH IN ABDOMINAL FOLDS NYSTATIN 67317491041 Active Jonel Hemphill MD Active GABAPENTIN 300 MG CAPS 1 CAP PO TID GABAPENTIN 78702975045 No Longer Active Jonel Hemphill MD Active DILANTIN 100 MG ORAL CAPS 1 THREE TIMES DAILY FOR SEIZURES PHENYTOIN SODIUM EXTENDED 96437033189 Active Marleni Romero Active CPAP APPLY AT HS CPAP Active Jonel Hemphill MD Active HYDROCODONE-ACETAMINOPHEN 7.5-325 MG TABS 1 q 6 hrs prn HYDROCODONE-ACETAMINOPHEN 38088928582 No Longer Active Jonel Hemphill MD Active DILANTIN 100 MG CAPS 3 cap tid PHENYTOIN SODIUM EXTENDED 25269582261 No Longer Active Jonel Hemphill MD Active BUDEPRION SR 150 MG [id number] 1 bid BUPROPION HCL 79099943737 No Longer Active Jonel Hemphill MD Active ALLOPURINOL 300 MG TABS 1 qd ALLOPURINOL 78216161586 No Longer Active Jonel Hemphill MD Active COZAAR 100 MG TABS 1 qd LOSARTAN POTASSIUM 53006942134 No Longer Active Jonel Hemphill MD Active CVS VITAMIN C 500 MG TABS 1 po daily ASCORBIC ACID 64675641240 No Longer Active Jonel Hemphill MD Active MIRALAX POWD 17 gms in 4 oz water or juice daily POLYETHYLENE GLYCOL 3350 47249875526 No Longer Active Jonel Hemphill MD Active POTASSIUM CHLORIDE CHELA ER 20 MEQ CR-TABS 1 tab PO daily POTASSIUM CHLORIDE CHELA CR 60395156876 No Longer Active Jonel Hemphill MD Active AMBIEN 10 MG TAB 1 tab by mouth at bedtime as needed for sleep ZOLPIDEM TARTRATE 00539269506 No Longer Active Jonel Hemphill MD Active SULFAMETHOXAZOLE-TMP DS 800-160 MG TABS 1 TAB PO BID SULFAMETHOXAZOLE-TRIMETHOPRIM 41387407876 No Longer Active Jonel Hemphill MD Active LEVEMIR 100 UNIT/ML SOLN 5 units sub-q at bedtime INSULIN DETEMIR 08121386053 No Longer Active Tova Perez Active MOBIC 15 MG TABS 1 tab PO daily for arthritis pain MELOXICAM 17549504235 No Longer Active Tova Perez Active GLUCAGEN 1 MG SOLR INJECT 1MG IM IF BS LESS THAN 60 & RES. IS UNABLE TO SWALLOW GLUCAGON HCL (RDNA) 02017702705 No Longer Active Tova Perez Active CVS MILK OF MAGNESIA 1200 MG/15ML SUSP 30 ml daily for constipation MAGNESIUM HYDROXIDE 22391420620 No Longer Active Tova Perez Active IMDUR 120 MG SL42Q-WES 1 qd ISOSORBIDE MONONITRATE 61375478939 No Longer Active Tova Perez Active NEURONTIN 400 MG CAPS Take one by mouth 3 times daily, morning, afternoon and evening.] GABAPENTIN 26568233108 No Longer Active Tova Perez Active ANTIVERT 25 MG TABS 1 q 6 hrs prn MECLIZINE HCL 83776718181 No Longer Active Jonel Hemphill MD Active CLONIDINE HCL 0.2 MG TABS 1 q 8 hrs as needed -greater than 160-htn CLONIDINE HCL 83724907645 No Longer Active Jonel Hemphill MD Active AMBIEN 10 MG TABS 1 q hs prn ZOLPIDEM TARTRATE 35075430734 No Longer Active Jonel Hemphill MD Active GNP THERAPEUTIC-M TABS 1 qd MULTIPLE VITAMINS- MINERALS 49234972982 No Longer Active Jonel Hemphill MD Active METOPROLOL TARTRATE 50 MG TABS 1 bid METOPROLOL TARTRATE 38198691546 No Longer Active Jonel Hemphill MD Active METFORMIN HCL 500 MG TABS 1 bod with food METFORMIN HCL 60044754381 No Longer Active Jonel Hemphill MD Active LISINOPRIL 40 MG TABS 1 qd LISINOPRIL 18814668074 No Longer Active Jonel Hemphill MD Active HYDROCHLOROTHIAZIDE 25 MG TABS 1 qd HYDROCHLOROTHIAZIDE 34068504185 No Longer Active Jonel Hemphill MD Active DURAGESIC-25 25 MCG/HR PT72 place 1 patch on the skin q72hrs for pain FENTANYL 72142649950 No Longer Active Jonel Hemphill MD Active FENTANYL 75 MCG/HR PT72 place 1 patch on skin q72hrs fr pain 2012 FENTANYL 40834705536 No Longer Active Jonel Hemphill MD Active FUROSEMIDE 40 MG TABS 1 q am FUROSEMIDE 41978261028 No Longer Active Jonel Hemphill MD Active HEPARIN (PORCINE) LOCK FLUSH 100 UNIT/ML SOLN Flush port a cath monthly every three week on with Heparin and NS HEPARIN LOCK FLUSH 99923333237 Active Jonel Hemphill MD Active FENTANYL 100 MCG/HR PT72 Apply every 3 days FENTANYL 26388790718 Active Jonel Hemphill MD Active FENTANYL 25 MCG/HR PT72 Apply to clean skin and change every 72 hours. 07/03 FENTANYL 62676046991 No Longer Active Jonel Hemphill MD Active FENTANYL 50 MCG/HR PT72 place 1 patch on skin q72 hours FENTANYL 15290994068 No Longer Active Mayco Shah APRN Active DURAGESIC-12 12 MCG/HR PT72 APPLY PATCH TO SKIN AND CHANGE EVERY 72 HOURS, ROTATE SITES FENTANYL 73870023866 No Longer Active Fozia YANGA Active FUROSEMIDE 20 MG TABS 1 qd FUROSEMIDE 75338338715 No Longer Active Mahogany [place] Active ADULT ASPIRIN EC LOW STRENGTH 81 MG TBEC 1 qd ASPIRIN 36899808917 Active MARY Perez Active FUROSEMIDE 20 MG TABS 1 qd FUROSEMIDE 20 MG TABS 630850 FUROSEMIDE Inactive DURAGESIC-12 12 MCG/HR PT72 APPLY PATCH TO SKIN AND CHANGE EVERY 72 HOURS, ROTATE SITES DURAGESIC-12 12 MCG/HR PT72 627390 FENTANYL Inactive FENTANYL 50 MCG/HR PT72 place 1 patch on skin q72 hours FENTANYL 50 MCG/HR PT72 991334 FENTANYL Inactive FUROSEMIDE 40 MG TABS 1 q am FUROSEMIDE 40 MG TABS 023623 FUROSEMIDE Inactive FENTANYL 75 MCG/HR PT72 place 1 patch on skin q72hrs fr pain 2012 FENTANYL 75 MCG/HR PT72 082155 FENTANYL Inactive DURAGESIC-25 25 MCG/HR PT72 place 1 patch on the skin q72hrs for pain DURAGESIC-25 25 MCG/HR PT72 124479 FENTANYL Inactive HYDROCHLOROTHIAZIDE 25 MG TABS 1 qd HYDROCHLOROTHIAZIDE 25 MG TABS 375063 HYDROCHLOROTHIAZIDE Inactive LISINOPRIL 40 MG TABS 1 qd LISINOPRIL 40 MG TABS 604183 LISINOPRIL Inactive METFORMIN HCL 500 MG TABS 1 bod with food METFORMIN HCL 500 MG TABS 647012 METFORMIN HCL Inactive METOPROLOL TARTRATE 50 MG TABS 1 bid METOPROLOL TARTRATE 50 MG TABS 186576 METOPROLOL TARTRATE Inactive GNP THERAPEUTIC-M TABS 1 qd GNP THERAPEUTIC-M TABS MULTIPLE VITAMINS-MINERALS Inactive AMBIEN 10 MG TABS 1 q hs prn AMBIEN 10 MG TABS 927178 ZOLPIDEM TARTRATE Inactive CLONIDINE HCL 0.2 MG TABS 1 q 8 hrs as needed -greater than 160-htn CLONIDINE HCL 0.2 MG TABS 789678 CLONIDINE HCL Inactive ANTIVERT 25 MG TABS 1 q 6 hrs prn ANTIVERT 25 MG TABS MECLIZINE HCL Inactive NEURONTIN 400 MG CAPS Take one by mouth 3 times daily, morning, afternoon and evening.] NEURONTIN 400 MG CAPS 506997 GABAPENTIN Inactive IMDUR 120 MG [id number] 1 qd IMDUR 120 MG [id number] ISOSORBIDE MONONITRATE Inactive CVS MILK OF MAGNESIA [...] for arthritis pain MOBIC 15 MG TABS 751680 MELOXICAM Inactive LEVEMIR 100 UNIT/ML SOLN 5 units sub-q at bedtime LEVEMIR 100 UNIT/ML SOLN INSULIN DETEMIR Inactive SULFAMETHOXAZOLE-TMP DS 800-160 MG TABS 1 TAB PO BID SULFAMETHOXAZOLE-TMP DS 800-160 MG TABS 030520 SULFAMETHOXAZOLE-TRIMETHOPRIM Inactive AMBIEN 10 MG TAB 1 tab by mouth at bedtime as needed for sleep AMBIEN 10 MG TAB 558482 ZOLPIDEM TARTRATE Inactive POTASSIUM CHLORIDE CHELA ER 20 MEQ CR-TABS 1 tab PO daily POTASSIUM CHLORIDE CHELA ER 20 MEQ CR-TABS POTASSIUM CHLORIDE CHELA CR Inactive MIRALAX POWD 17 gms in 4 oz water or juice daily MIRALAX POWD 802142 POLYETHYLENE GLYCOL 3350 Inactive CVS VITAMIN C 500 MG TABS 1 po daily CVS VITAMIN C 500 MG TABS 612507 ASCORBIC ACID Inactive COZAAR 100 MG TABS 1 qd COZAAR 100 MG TABS 033271 LOSARTAN POTASSIUM Inactive ALLOPURINOL 300 MG TABS 1 qd ALLOPURINOL 300 MG TABS 290549 ALLOPURINOL Inactive BUDEPRION SR 150 MG [id number] 1 bid BUDEPRION SR 150 MG [id number]-[id number] BUPROPION HCL Inactive DILANTIN 100 MG CAPS 3 cap tid DILANTIN 100 MG CAPS 171261 PHENYTOIN SODIUM EXTENDED Inactive HYDROCODONE-ACETAMINOPHEN 7.5-325 MG TABS 1 q 6 hrs prn HYDROCODONE-ACETAMINOPHEN 7.5-325 MG TABS 274956 HYDROCODONE- ACETAMINOPHEN Inactive GABAPENTIN 300 MG CAPS 1 CAP PO TID GABAPENTIN 300 MG CAPS 549578 GABAPENTIN Inactive GABAPENTIN 400 MG ORAL CAPS 1 TAB BY MOUTH THREE TIMES DAILY 2015 GABAPENTIN 400 MG ORAL CAPS 205231 GABAPENTIN Inactive METOPROLOL TARTRATE 50 MG ORAL TABS 1 TAB BY MOUTH TWICE DAILY METOPROLOL TARTRATE 50 MG ORAL TABS 065535 METOPROLOL TARTRATE Inactive ZYLOPRIM 300 MG TAB 1 BY MOUTH DAILY ZYLOPRIM 300 MG TAB 370161 ALLOPURINOL Inactive MECLIZINE HCL 25 MG CHEW TAB 1 four times a day as needed for dizziness 02/21 MECLIZINE HCL 25 MG CHEW TAB 501867 MECLIZINE HCL Inactive ATIVAN 0.5 MG TABS Take 1 tablet 2x daily PRN ATIVAN 0.5 MG TABS 871425 LORAZEPAM Inactive CELEXA 20 MG TABS Take 1 tablet 1x daily CELEXA 20 MG TABS 178381 CITALOPRAM HYDROBROMIDE Inactive ULORIC 40 MG ORAL TABS 1 daily for gout. ULORIC 40 MG ORAL TABS FEBUXOSTAT Inactive BUPROPION HCL ER (SR) 150 MG [id number] 1 twice a day for depression BUPROPION HCL ER (SR) 150 MG [id number]-IED BUPROPION HCL Inactive MULTIVITAMINS CAPS 1 DAILY MULTIVITAMINS CAPS MULTIPLE VITAMIN Inactive NORCO 5-325 MG TABS 1-2 TAB Q 6 HRS PRN NORCO 5-325 MG TABS 033652 HYDROCODONE-ACETAMINOPHEN Inactive PHENYTOIN 50 MG CHEW 1 TAB PO BID PHENYTOIN 50 MG CHEW 8755097 PHENYTOIN Inactive FENTANYL 12 MCG/HR PT72 Apply to clean, dry skin and change every 72 hours FENTANYL 12 MCG/HR PT72 057600 FENTANYL Inactive FENTANYL 25 MCG/HR PT72 Apply to clean skin and change every 72 hours. 07/03 FENTANYL 25 MCG/HR PT72 422646 FENTANYL Inactive Advance Directives Directive Description Start [...] Yes Encounters Code Encounter Date Provider Facility CPT-68439 Level 4 Est. Patient 10:04:48 CASH ANALYST Jonel Hemphill MD [facility] CPT-86038 Level 3 Est. Patient 19:05:03 CDT Jonel Hemphill MD [facility] CPT-55178 Level 3 Est. Patient 17:30:47 CDT Kevin Link MD [facility] CPT-85684 Level 3 Est. Patient 18:04:07 CDT Jonel Hemphill MD [facility] CPT-97173 Level 3 Est. Patient 17:18:03 CDT Jonel Hemphill MD [facility] CPT-62286 Level 3 Est. Patient 21:58:03 CASH ANALYST Jonel Hemphill MD [facility] CPT-98679 Level 4 Est. Patient 18:03:14 CDT Jonel Yeager [facility]-07533 Level 4 Est. Patient 13:24:53 CDT Jonel Yeager [facility]-91755 Level 4 Est. Patient 09:15:44 CDT Jonel Yeager [facility]-85477 Level 4 Est. Patient 19:16:01 CDT Jonel Yeager [facility] CPT-61898 Level 4 Est. Patient 11:25:16 CDT Jonel Hemphill MD [facility] CPT-12000 Level 4 Est. Patient 09:00:40 CDT Jonel Yeager [facility]-41036 Level 4 Est. Patient 14:53:58 CDT Jonel Hemphill MD [facility] CPT-70237 Level 4 Est. Patient 22:59:01 CDT Jonel Hemphill MD [facility]-78225 Level 4 Est. Patient 09:29:57 CDT Jonel Hemphill MD [facility]-96392 Level 4 Est. Patient 12:35:53 CASH ANALYST Jonel Hemphill MD [facility]-77055 Level 4 Est. Patient 22:36:09 CASH ANALYST Jonel Hemphill MD [facility]-27763 Level 2 Est. Patient 15:14:15 CASH ANALYST Mayco Shah APRN [facility] CPT-31009 Level 4 Est. Patient 10:36:22 CASH ANALYST Jonel Hemphill MD [facility] CPT-94586 Level 4 Est. Patient 22:01:13 CASH ANALYST Jonel Hemphill MD [facility]-15940 Level 3 Est. Patient 21:50:37 CASH ANALYST Jonel Hemphill MD [facility] CPT-54917 Level 4 Est. Patient 15:02:43 CDT Rubin Pierre MD [facility] CPT-01275 Level 4 Est. Patient 14:27:35 CDT Jonel Hemphill MD [facility]-43102 Level 4 Est. Patient 12:41:17 CDT Jonel Hemphill MD [facility]-09642 Level 4 Est. Patient 16:18:55 CDT Jonel Hemphill MD [facility]-65817 Level 4 Est. Patient 17:58:05 CDT Jonel Hemphill MD [facility]-35817 Level 4 Est. Patient 22:10:06 CDT Jonel Hemphill MD [facility]-69134 Level 4 Est. Patient 13:22:09 CDT Jonel Hemphill MD [facility]-51101 Level 4 Est. Patient 22:52:17 CASH ANALYST Jonel Hemphill MD [facility] CPT-86195 Level 3 Est. Patient 22:34:10 CASH ANALYST Jonel Hemphill MD [facility] CPT-63959 Level 4 Est. Patient 07:49:20 CASH ANALYST Jonel Hemphill MD [facility] Skilled CPT-71937 Level 3 Est. Patient 08:28:27 CASH ANALYST Jonel Hemphill MD [facility] Procedures Code Procedure Name Date Entry Date Standard Description CPT-30287 Level 3 [facility] 21:14:15 CASH ANALYST CPT-76436 Level 3 [facility] 15:38:24 CDT CPT-55548 Level 3 [facility] 08:18:30 CDT CPT-78518 Level 3 [facility] 19:03:14 CDT CPT-52545 Level 3 [facility]ci 17:42:11 CDT CPT-44492 Level 3 [facility]ci 16:04:10 CDT CPT-40389 Level 3 [facility]ci 19:38:15 CASH ANALYST CPT-37555 Level 3 Fci 19:28:48 CASH ANALYST CPT-93374 Level 3 Fci 18:02:20 CASH ANALYST CPT-65570 Level 3 [facility]ci 15:02:14 CASH ANALYST CPT-31478 Level 3 Fci 12:25:37 CDT CPT-07336 Level 3 Fci 12:48:39 CDT CPT-72955 Level 3 Fci 17:39:14 CDT CPT-25060 Level 3 Fci 13:32:58 CDT CPT-93901 Level 3 Fci 17:43:43 CDT CPT-36583 Level 3 Fci 12:03:33 CASH ANALYST CPT-92882 Level 3 Fci 18:47:28 CASH ANALYST CPT-56939 Level 3 Fci 17:35:26 CASH ANALYST CPT-07591 Level 3 Fci 18:44:49 CASH ANALYST CPT-81447 Level 3 Fci 18:17:33 CDT CPT-74648 Level 3 Fci 09:25:33 CDT CPT-54024 Level 3 Fci 19:11:57 CDT CPT-42226 Level 3 Fci 09:25:52 CDT CPT-38626 Level 3 Fci 14:23:59 CDT CPT-83793 Level 3 Fci 12:09:43 CDT CPT-23967 Level 3 Fci 09:37:40 CDT CPT-84495 Level 3 Fci 18:23:02 CDT CPT-32662 Level 3 Fci 14:09:06 CDT CPT-56071 Level 3 Fci 12:43:27 CASH ANALYST CPT-65388 Postop F/U Visit 14:10:15 CASH ANALYST CPT-30723 [facility] 17:07:14 CASH ANALYST CPT-13600 Level 3 [facility] 16:14:37 CASH ANALYST CPT-29621 Port a cath flush 11:47:42 CDT CPT-57585 Port a cath flush 08:29:49 CDT CPT-OV Office Visit 14:27:58 CASH ANALYST
--- OUTSIDE RECORDS SUMMARY | 2016-08-07 12:14 | XMS REPORT | Clinical Summary ---
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 Jonel Hemphill MD Long-term (current) [...] Coronary atherosclerosis of unspecified type of vessel, marshall or graft FH DIABETES V18.0 Resolved Jonel [...] Coronary atherosclerosis of unspecified type of vessel, marshall or graft CONSTIPATION 564.00 Resolved Jonel Hemphill [...] MD Lumbago SHOULDER STRAIN, RIGHT 840.9 Resolved Jonle Hemphill MD Sprain of unspecified site of shoulder and upper arm TREMOR 781.0 Resolved Jonel Hemphlil MD Abnormal involuntary movements FITTING AND ADJUSTMENT [...] TIMES DAILY FOR SEIZURES PHENYTOIN SODIUM EXTENDED 33266470966 Active Marleni Romero Active CPAP APPLY AT HS CPAP Active Jonel Hemphill MD Active METOPROLOL TARTRATE 50 MG ORAL TABS 1 TAB BY MOUTH TWICE DAILY METOPROLOL TARTRATE 61323499342 Active Jonel Hemphill MD Active LISINOPRIL 40 MG TABS 1 tablet by mouth twice daily, for blood pressure 03/31 LISINOPRIL 86716155464 Active Jonel Hemphill MD Active BUPROPION HCL ER (SR) 150 MG [id number] 1 twice a day for depression BUPROPION HCL 85478920858 Active Jonel Hemphill MD Active MULTIVITAMINS CAPS 1 DAILY MULTIPLE VITAMIN 24087080567 Active Jonel Hemphill MD Active ZYLOPRIM 300 MG TAB 1 BY MOUTH DAILY ALLOPURINOL 50630057062 Active Jonel Hemphill MD Active HYDROCODONE-ACETAMINOPHEN 7.5-325 MG TABS 1 q 6 hrs prn HYDROCODONE-ACETAMINOPHEN 03799106555 No Longer Active Jonel Hemphill MD Active DILANTIN 100 MG CAPS 3 cap tid PHENYTOIN SODIUM EXTENDED 82755346355 No Longer Active Jonel Hemphill MD Active BUDEPRION SR 150 MG [id number] 1 bid BUPROPION HCL 92675324365 No Longer Active Jonel Hemphill MD Active ALLOPURINOL 300 MG TABS 1 qd ALLOPURINOL 19324833528 No Longer Active Jonel Hemphill MD Active COZAAR 100 MG TABS 1 qd LOSARTAN POTASSIUM 79022022942 No Longer Active Jonel Hemphill MD Active CVS VITAMIN C 500 MG TABS 1 po daily ASCORBIC ACID 80081964338 No Longer Active Jonel Hemphill MD Active MIRALAX POWD 17 gms in 4 oz water or juice daily POLYETHYLENE GLYCOL 3350 70802256678 No Longer Active Jonel Hemphill MD Active POTASSIUM CHLORIDE CHELA ER 20 MEQ CR-TABS 1 tab PO daily POTASSIUM CHLORIDE CHELA CR 99011962654 No Longer Active Jonel Hemphill MD Active AMBIEN 10 MG TAB 1 tab by mouth at bedtime as needed for sleep ZOLPIDEM TARTRATE 78876304375 No Longer Active Jonel Hemphill MD Active SULFAMETHOXAZOLE-TMP DS 800-160 MG TABS 1 TAB PO BID SULFAMETHOXAZOLE-TRIMETHOPRIM 66729660429 No Longer Active Jonel Hemphill MD Active NORCO 5-325 MG TABS 1-2 TAB Q 6 HRS PRN HYDROCODONE- ACETAMINOPHEN 54926017417 Active Jonel Hemphill MD Active LEVEMIR 100 UNIT/ML SOLN 5 units sub-q at bedtime INSULIN DETEMIR 90075799621 No Longer Active Tova Perez Active MOBIC 15 MG TABS 1 tab PO daily for arthritis pain MELOXICAM 78370113866 No Longer Active Tova Chris Active GLUCAGEN 1 MG SOLR INJECT 1MG IM IF BS LESS THAN 60 & RES. IS UNABLE TO SWALLOW GLUCAGON HCL (RDNA) 91368203570 No Longer Active Tova Chris Active CVS MILK OF MAGNESIA 1200 MG/15ML SUSP 30 ml daily for constipation MAGNESIUM HYDROXIDE 09867323753 No Longer Active Tova Chris Active IMDUR 120 MG [id number] 1 qd ISOSORBIDE MONONITRATE 66163090153 No Longer Active Tova Chris Active METFORMIN HCL 500 MG TABS 1 tablet by mouth twice daily METFORMIN HCL 46099785181 Active Tova Chris Active PHENYTOIN 50 MG CHEW 1 TAB PO BID PHENYTOIN 60407364712 Active Tova Chris Active MECLIZINE HCL 25 MG CHEW TAB 1 four times a day as needed for dizziness 02/21 MECLIZINE HCL 88664233687 Active Tova Perez Active GABAPENTIN 300 MG CAPS 1 CAP PO TID GABAPENTIN 40876633960 Active Tova Perez Active NEURONTIN 400 MG CAPS Take one by mouth 3 times daily, morning, afternoon and evening.] GABAPENTIN 10144977594 No Longer Active Tova Perez Active ANTIVERT 25 MG TABS 1 q 6 hrs prn MECLIZINE HCL 86305538449 No Longer Active Jonel Hemphill MD Active CLONIDINE HCL 0.2 MG TABS 1 q 8 hrs as needed -greater than 160-htn CLONIDINE HCL 96550032519 No Longer Active Jonel Hemphill MD Active AMBIEN 10 MG TABS 1 q hs prn ZOLPIDEM TARTRATE 87473077016 No Longer Active Jonel Hemphill MD Active GNP THERAPEUTIC-M TABS 1 qd MULTIPLE VITAMINS- MINERALS 06714675867 No Longer Active Jonel Hemphill MD Active METOPROLOL TARTRATE 50 MG TABS 1 bid METOPROLOL TARTRATE 77082120063 No Longer Active Jonel Hemphill MD Active METFORMIN HCL 500 MG TABS 1 bod with food METFORMIN HCL 99212832476 No Longer Active Jonel Hemphill MD Active LISINOPRIL 40 MG TABS 1 qd LISINOPRIL 54516029434 No Longer Active Jonel Hemphill MD Active HYDROCHLOROTHIAZIDE 25 MG TABS 1 qd HYDROCHLOROTHIAZIDE 51652656812 No Longer Active Jonel Hemphill MD Active DURAGESIC-25 25 MCG/HR PT72 place 1 patch on the skin q72hrs for pain FENTANYL 75240508745 No Longer Active Jonel Hemphill MD Active FENTANYL 75 MCG/HR PT72 place 1 patch on skin q72hrs fr pain 2012 FENTANYL 52701523058 No Longer Active Jonel Hemphill MD Active LASIX 20 MG TABS 1 tab PO q morning FUROSEMIDE 40954000146 Active Jonel Hemphill MD Active FUROSEMIDE 40 MG TABS 1 q am FUROSEMIDE 87191818269 No Longer Active Jonel Hemphill MD Active HEPARIN (PORCINE) LOCK FLUSH 100 UNIT/ML SOLN Flush port a cath monthly every three week on with Heparin and NS HEPARIN LOCK FLUSH 08161490612 Active Jonel Hemphill MD Active FENTANYL 100 MCG/HR PT72 Apply every 3 days FENTANYL 94748653297 Active Jonel Hemphill MD Active FENTANYL 25 MCG/HR PT72 Apply to clean skin and change every 72 hours. 07/03 FENTANYL 64429291060 No Longer Active Jonel Hemphill MD Active FENTANYL 50 MCG/HR PT72 place 1 patch on skin q72 hours FENTANYL 36909848948 No Longer Active Mayco Shah APRN Active ATIVAN 0.5 MG TABS Take 1 tablet 2x daily LORAZEPAM 50127713535 Active Jonel Hemphill MD Active CELEXA 20 MG TABS Take 1 tablet 1x daily CITALOPRAM HYDROBROMIDE 05119855859 Active Jonel Hemphill MD Active DURAGESIC-12 12 MCG/HR PT72 APPLY PATCH TO SKIN AND CHANGE EVERY 72 HOURS, ROTATE SITES FENTANYL 14411598253 No Longer Active Fozia HERNANDEZ Active FUROSEMIDE 20 MG TABS 1 qd FUROSEMIDE 33139062828 No Longer Active Mahogany Bolivar Active ADULT ASPIRIN EC LOW STRENGTH 81 MG TBEC 1 qd ASPIRIN 09108509683 Active MARY Perez Active FUROSEMIDE 20 MG TABS 1 qd FUROSEMIDE 20 MG TABS 599180 FUROSEMIDE Inactive DURAGESIC-12 12 MCG/HR PT72 APPLY PATCH TO SKIN AND CHANGE EVERY 72 HOURS, ROTATE SITES DURAGESIC-12 12 MCG/HR PT72 472342 FENTANYL Inactive FENTANYL 50 MCG/HR PT72 place 1 patch on skin q72 hours FENTANYL 50 MCG/HR PT72 432704 FENTANYL Inactive FUROSEMIDE 40 MG TABS 1 q am FUROSEMIDE 40 MG TABS 806838 FUROSEMIDE Inactive FENTANYL 75 MCG/HR PT72 place 1 patch on skin q72hrs fr pain 2012 FENTANYL 75 MCG/HR PT72 802827 FENTANYL Inactive DURAGESIC-25 25 MCG/HR PT72 place 1 patch on the skin q72hrs for pain DURAGESIC-25 25 MCG/HR PT72 882184 FENTANYL Inactive HYDROCHLOROTHIAZIDE 25 MG TABS 1 qd HYDROCHLOROTHIAZIDE 25 MG TABS 660904 HYDROCHLOROTHIAZIDE Inactive LISINOPRIL 40 MG TABS 1 qd LISINOPRIL 40 MG TABS 643882 LISINOPRIL Inactive METFORMIN HCL 500 MG TABS 1 bod with food METFORMIN HCL 500 MG TABS 828247 METFORMIN HCL Inactive METOPROLOL TARTRATE 50 MG TABS 1 bid METOPROLOL TARTRATE 50 MG TABS 645643 METOPROLOL TARTRATE Inactive GNP THERAPEUTIC-M TABS 1 qd GNP THERAPEUTIC-M TABS MULTIPLE VITAMINS-MINERALS Inactive AMBIEN 10 MG TABS 1 q hs prn AMBIEN 10 MG TABS 403638 ZOLPIDEM TARTRATE Inactive CLONIDINE HCL 0.2 MG TABS 1 q 8 hrs as needed -greater than 160-htn CLONIDINE HCL 0.2 MG TABS 650887 CLONIDINE HCL Inactive ANTIVERT 25 MG TABS 1 q 6 hrs prn ANTIVERT 25 MG TABS MECLIZINE HCL Inactive NEURONTIN 400 MG CAPS Take one by mouth 3 times daily, morning, afternoon and evening.] NEURONTIN 400 MG CAPS 707402 GABAPENTIN Inactive IMDUR 120 MG [id number] 1 qd IMDUR 120 MG [id number] ISOSORBIDE MONONITRATE Inactive CVS MILK OF MAGNESIA [...] for arthritis pain MOBIC 15 MG TABS 284248 MELOXICAM Inactive LEVEMIR 100 UNIT/ML SOLN 5 units sub-q at bedtime LEVEMIR 100 UNIT/ML SOLN INSULIN DETEMIR Inactive SULFAMETHOXAZOLE-TMP DS 800-160 MG TABS 1 TAB PO BID SULFAMETHOXAZOLE-TMP DS 800-160 MG TABS SULFAMETHOXAZOLE-TRIMETHOPRIM Inactive AMBIEN 10 MG TAB 1 tab by mouth at bedtime as needed for sleep AMBIEN 10 MG TAB 139217 ZOLPIDEM TARTRATE Inactive POTASSIUM CHLORIDE CHELA ER 20 MEQ CR-TABS 1 tab PO daily POTASSIUM CHLORIDE CHELA ER 20 MEQ CR-TABS POTASSIUM CHLORIDE CHELA CR Inactive MIRALAX POWD 17 gms in 4 oz water or juice daily MIRALAX POWD 652069 POLYETHYLENE GLYCOL 3350 Inactive CVS VITAMIN C 500 MG TABS 1 po daily CVS VITAMIN C 500 MG TABS 322120 ASCORBIC ACID Inactive COZAAR 100 MG TABS 1 qd COZAAR 100 MG TABS 547823 LOSARTAN POTASSIUM Inactive ALLOPURINOL 300 MG TABS 1 qd ALLOPURINOL 300 MG TABS 425068 ALLOPURINOL Inactive BUDEPRION SR 150 MG [id number] 1 bid BUDEPRION SR 150 MG [id number] BUPROPION HCL Inactive DILANTIN 100 MG CAPS 3 cap tid DILANTIN 100 MG CAPS 642374 PHENYTOIN SODIUM EXTENDED Inactive HYDROCODONE-ACETAMINOPHEN 7.5-325 MG TABS 1 q 6 hrs prn HYDROCODONE-ACETAMINOPHEN 7.5-325 MG TABS 568686 HYDROCODONE- ACETAMINOPHEN Inactive FENTANYL 25 MCG/HR PT72 Apply to clean skin and change every 72 hours. 07/03 FENTANYL 25 MCG/HR PT72 148639 FENTANYL Inactive Advance Directives Directive Description Start [...] as % of total hemoglobin 6.8 % hemoglobin A1C, blood, as % of total hemoglobin 5.7 % Chart Maintenance: Outside labs entered on flowsheet - Hematology leukocyte count, blood 7.5 10*3/mm3 hemoglobin, blood 14.5 g/dL platelet count 128 10*3/mm3 Lab Report: CBC W/DIFF, Comp. Metabolic Panel, [facility] A/B - Chemistry alanine aminotransferase (SGPT), serum 39 U/L 12-78 aspartate aminotransferase (SGOT), serum 22 U/L 15-37 calcium, serum 8.0 mg/dL 8.5-10.1 bilirubin, serum, total 0.30 mg/dL 0.00-1.00 sodium, serum 142 mmol/L 412-116 1827/01/20 potassium, serum 3.9 mmol/L 3.5-5.2 chloride, serum 104 mmol/L 98-107 carbon dioxide, venous blood 31.4 mmol/L 21.0-32.0 blood glucose 136 mg/dL 65-110 urea nitrogen, blood 15 mg/dL 7-18 creatinine, serum 0.90 mg/dL 0.60-1.30 Lab Report: CBC W/DIFF, Comp. Metabolic Panel, [facility] A/B - Hematology monocytes as percent of blood leukocytes 8.1 % 1.7-9.3 lymphocytes as percent of blood leukocytes 24.6 % 20.5-51.1 erythrocyte (RBC) count 4.36 10^6/MM^3 10*6/mm3 4.69-6.13 hemoglobin, blood 14.3 g/dL 13.5-17.5 hematocrit, blood 41.9 % 41.0-53.0 leukocyte count, blood 6.0 10^3/MM^3 10*3/mm3 4.6-10.2 neutrophils as percent of blood leukocytes 65.6 % 42.2-75.2 mean corpuscular volume, RBC 96 fL 80-97 [...] Acid - Chemistry sodium, serum 141 mmol/L 106-751 5790/05/09 potassium, serum 3.9 mmol/L 3.5-5.2 chloride, serum [...] Panel, Uric Acid - Hematology mean corpuscular volume, RBC 96 fL 80-97 hematocrit, blood 43.3 % 41.0-53.0 hemoglobin, blood 14.5 g/dL 13.5-17.5 erythrocyte (RBC) count 4.53 10^6/MM^3 10*6/mm3 4.69-6.13 leukocyte count, blood 7.3 10^3/MM^3 10*3/mm3 4.6-10.2 platelet count 129 Verified By Repeat Analysis 10^3/mm^3 10*3/ mm3 138-347 3854/05/09 red blood cell distribution width 14.7 % 11.6-14.8 mean corpuscular hemoglobin concentration, RBC 33.6 G/DL % 31.8- 35.4 mean corpuscular hemoglobin, RBC 32.1 pg 27.0-31.2 Lab Report: CMP, URIC ACID - Chemistry sodium, serum 142 mmol/L alkaline phosphatase, serum 54 U/L potassium, serum 4.5 mmol/L blood glucose 94 mg/dL creatinine, serum 0.79 mg/dL aspartate aminotransferase (SGOT), serum 24 U/L alanine aminotransferase (SGPT), serum 28 U/L Encounters Code Encounter Date Provider Facility CPT-00453 Level 3 Est. Patient 18:04:07 CDT Jonel Hemphill MD [facility] CPT-01553 Level 3 Est. Patient 17:18:03 CDT Jonel Hemphill MD [facility] CPT-71530 Level 3 Est. Patient 21:58:03 FULL TIME PARAMEDIC Jonel Hemphill MD [facility] CPT-70919 Level 4 Est. Patient 18:03:14 CDT Jonel Yeager [facility]-57758 Level 4 Est. Patient 13:24:53 CDT Jonel Yeager [facility]-21554 Level 4 Est. Patient 09:15:44 CDT Jonel Yeager [facility]-20631 Level 4 Est. Patient 19:16:01 CDT Jonel Yeager [facility] CPT-25991 Level 4 Est. Patient 11:25:16 CDT Jonel Hemphill MD [facility] CPT-61264 Level 4 Est. Patient 09:00:40 CDT Jonel Hemphill MD [facility]-53280 Level 4 Est. Patient 14:53:58 CDT Jonel Hemphill MD [facility]-65807 Level 4 Est. Patient 22:59:01 CDT Jonel Hemphill MD [facility]-04795 Level 4 Est. Patient 09:29:57 CDT Jonel Hemphill MD [facility]-60826 Level 4 Est. Patient 12:35:53 FULL TIME PARAMEDIC Jonel Hemphill MD [facility]-33100 Level 4 Est. Patient 22:36:09 FULL TIME PARAMEDIC Jnoel Hemphill MD [facility]-79755 Level 2 Est. Patient 15:14:15 FULL TIME PARAMEDIC Mayco Shah APRN [facility] CPT-08083 Level 4 Est. Patient 10:36:22 FULL TIME PARAMEDIC Jonel Hemphill MD [facility] CPT-48578 Level 4 Est. Patient 22:01:13 FULL TIME PARAMEDIC Jonel Hemphill MD [facility]-46940 Level 3 Est. Patient 21:50:37 FULL TIME PARAMEDIC Jonel Hemphill MD [facility]-71741 Level 4 Est. Patient 15:02:43 CDT Rubin Pierre MD [facility] CPT-71161 Level 4 Est. Patient 14:27:35 CDT Jonel Hemphill MD [facility]-51915 Level 4 Est. Patient 12:41:17 CDT Jonel Hemphill MD [facility]-84923 Level 4 Est. Patient 16:18:55 CDT Jonel Hemphill MD [facility]-45449 Level 4 Est. Patient 17:58:05 CDT Jonel Hemphill MD [facility] CPT-61673 Level 4 Est. Patient 22:10:06 CDT Jonel Hemphill MD [facility] CPT-12906 Level 4 Est. Patient 13:22:09 CDT Jonel Hemphill MD [facility] CPT-61086 Level 4 Est. Patient 22:52:17 FULL TIME PARAMEDIC Jonel Hemphill MD [facility] CPT-38070 Level 3 Est. Patient 22:34:10 FULL TIME PARAMEDIC Jonel Hemphill MD [facility] CPT-87300 Level 4 Est. Patient 07:49:20 FULL TIME PARAMEDIC Jonel Hemphill MD [facility] Skilled CPT-06190 Level 3 Est. Patient 08:28:27 FULL TIME PARAMEDIC Jonel Hemphill MD [facility] Procedures Code Procedure Name Date Entry Date Standard Description CPT-43763 Level 3 Alf 17:43:43 CDT CPT-13628 Level 3 Alf 12:03:33 FULL TIME PARAMEDIC CPT-49528 Level 3 Alf 18:47:28 FULL TIME PARAMEDIC CPT-93042 Level 3 Alf 17:35:26 FULL TIME PARAMEDIC CPT-80475 Level 3 Alf 18:44:49 FULL TIME PARAMEDIC CPT-38837 Level 3 Alf 18:17:33 CDT CPT-83733 Level 3 Alf 09:25:33 CDT CPT-30791 Level 3 Alf 19:11:57 CDT CPT-44524 Level 3 Alf 09:25:52 CDT CPT-25996 Level 3 Alf 14:23:59 CDT CPT-28334 Level 3 Alf 12:09:43 CDT CPT-91067 Level 3 Alf 09:37:40 CDT CPT-54171 Level 3 Alf 18:23:02 CDT CPT-34025 Level 3 Alf 14:09:06 CDT CPT-46769 Level 3 Alf 12:43:27 FULL TIME PARAMEDIC CPT-72966 Postop F/U Visit 14:10:15 FULL TIME PARAMEDIC CPT-56697 [facility] 17:07:14 FULL TIME PARAMEDIC CPT-98837 Level 3 Alf 16:14:37 FULL TIME PARAMEDIC CPT-07021 Port a cath flush 11:47:42 CDT CPT-42392 Port a cath flush 08:29:49 CDT CPT-OV Office Visit 14:27:58 FULL TIME PARAMEDIC
--- OUTSIDE RECORDS SUMMARY | 2016-08-07 12:16 | XMS REPORT | Clinical Summary ---
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 V58.69 Resolved Jonel Hemphill MD Long-term [...] Coronary atherosclerosis of unspecified type of vessel, venetie or graft FH DIABETES V18.0 Resolved Jonel [...] Coronary atherosclerosis of unspecified type of vessel, [place] or graft CONSTIPATION 564.00 Resolved Jonel Hemphill [...] Pain in or around eye 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 USE, FITNESS ASSISTANT ICD-V58.69 Inactive Jonel Hemphill MD DIABETES, [...] TAB Q 6 HRS PRN HYDROCODONE- ACETAMINOPHEN 16967766336 Active Jonel Hemphill MD Active LEVEMIR 100 UNIT/ML SOLN 5 units sub-q at bedtime INSULIN DETEMIR 99665536902 No Longer Active Tova Perez Active MOBIC 15 MG TABS 1 tab PO daily for arthritis pain MELOXICAM 77477548123 No Longer Active Tova Perez Active GLUCAGEN 1 MG SOLR INJECT 1MG IM IF BS LESS THAN 60 & RES. IS UNABLE TO SWALLOW GLUCAGON HCL (RDNA) 26753829702 No Longer Active Tova Perez Active [facility] MILK OF MAGNESIA 1200 MG/15ML SUSP 30 ml daily for constipation MAGNESIUM HYDROXIDE 14779771679 No Longer Active Tova Perez Active IMDUR 120 MG [id number] 1 qd ISOSORBIDE MONONITRATE 79080277251 No Longer Active Tova Perez Active METFORMIN HCL 500 MG TABS 1 tablet by mouth twice daily METFORMIN HCL 95787221692 Active Tova Perez Active SULFAMETHOXAZOLE-TMP DS 800-160 MG TABS 1 TAB PO BID SULFAMETHOXAZOLE-TRIMETHOPRIM 19019568313 Active Tova Perez Active PHENYTOIN 50 MG CHEW 1 TAB PO BID PHENYTOIN 51983454004 Active Tova Perez Active MECLIZINE HCL 25 MG CHEW TAB 1 four times a day as needed for dizziness 02/21 MECLIZINE HCL 74958345552 Active Tova Perez Active GABAPENTIN 300 MG CAPS 1 CAP PO TID GABAPENTIN 44073315873 Active Tova Perez Active NEURONTIN 400 MG CAPS Take one by mouth 3 times daily, morning, afternoon and evening.] GABAPENTIN 85855815401 No Longer Active Tova Perez Active AMBIEN 10 MG TAB 1 tab by mouth at bedtime as needed for sleep ZOLPIDEM TARTRATE 90724622012 Active Jonel Hemphill MD Active POTASSIUM CHLORIDE CHELA ER 20 MEQ CR-TABS 1 tab PO daily POTASSIUM CHLORIDE CHELA CR 37670217756 Active Jonel Hemphill MD Active ANTIVERT 25 MG TABS 1 q 6 hrs prn MECLIZINE HCL 10239449194 No Longer Active Jonel Hemphill MD Active CLONIDINE HCL 0.2 MG TABS 1 q 8 hrs as needed -greater than 160-htn CLONIDINE HCL 47924651218 No Longer Active Jonel Hemphill MD Active AMBIEN 10 MG TABS 1 q hs prn ZOLPIDEM TARTRATE 48903913045 No Longer Active oJnel Hemphill MD Active GNP THERAPEUTIC-M TABS 1 qd MULTIPLE VITAMINS- MINERALS 72060841961 No Longer Active Jonel Hemphill MD Active METOPROLOL TARTRATE 50 MG TABS 1 bid METOPROLOL TARTRATE 05611413470 No Longer Active Jonel Hemphill MD Active METFORMIN HCL 500 MG TABS 1 bod with food METFORMIN HCL 69729632638 No Longer Active Jonel Hemphill MD Active LISINOPRIL 40 MG TABS 1 qd LISINOPRIL 80644767116 No Longer Active Jonel Hemphill MD Active HYDROCHLOROTHIAZIDE 25 MG TABS 1 qd HYDROCHLOROTHIAZIDE 42322266032 No Longer Active Jonel Hemphill MD Active DURAGESIC-25 25 MCG/HR PT72 place 1 patch on the skin q72hrs for pain FENTANYL 67478162442 No Longer Active Jonel Hemphill MD Active FENTANYL 75 MCG/HR PT72 place 1 patch on skin q72hrs fr pain 2012 FENTANYL 03627114374 No Longer Active Jonel Hemphill MD Active LASIX 20 MG TABS 1 tab PO q morning FUROSEMIDE 20753097146 Active Jonel Hemphill MD Active FUROSEMIDE 40 MG TABS 1 q am FUROSEMIDE 72179400218 No Longer Active Jonel Hemphill MD Active HEPARIN (PORCINE) LOCK FLUSH 100 UNIT/ML SOLN Flush port a cath monthly every three week on with Heparin and NS HEPARIN LOCK FLUSH 68422273123 Active oJnel Hemphill MD Active FENTANYL 100 MCG/HR PT72 Apply every 3 days FENTANYL 10512250497 Active Jonel Hemphill MD Active FENTANYL 25 MCG/HR PT72 Apply to clean skin and change every 72 hours. 07/03 FENTANYL 79696818469 No Longer Active Jonel Hemphill MD Active FENTANYL 50 MCG/HR PT72 place 1 patch on skin q72 hours FENTANYL 00847147796 No Longer Active Mayco Shah APRN Active HYDROCODONE-ACETAMINOPHEN 7.5-325 MG TABS 1 q 6 hrs prn HYDROCODONE-ACETAMINOPHEN 93374248284 Active Jonel Hemphill MD Active ATIVAN 0.5 MG TABS Take 1 tablet 2x daily LORAZEPAM 32583189416 Active Jonel Hemphill MD Active CELEXA 20 MG TABS Take 1 tablet 1x daily CITALOPRAM HYDROBROMIDE 75110439972 Active Jonel Hemphill MD Active MIRALAX POWD 17 gms in 4 oz water or juice daily POLYETHYLENE GLYCOL 3350 83465193555 Active Rubin Pierre MD Active DURAGESIC-12 12 MCG/HR PT72 APPLY PATCH TO SKIN AND CHANGE EVERY 72 HOURS, ROTATE SITES FENTANYL 36894228551 No Longer Active Fozia HERNANDEZ Active [facility] VITAMIN C 500 MG TABS 1 po daily ASCORBIC ACID 04588002413 Active Mahogany Kellerton Active FUROSEMIDE 20 MG TABS 1 qd FUROSEMIDE 23923676710 No Longer Active Mahogany Kellerton Active ADULT ASPIRIN EC LOW STRENGTH 81 MG TBEC 1 qd ASPIRIN 18353339975 Active MARY Perez Active DILANTIN 100 MG CAPS 3 cap tid PHENYTOIN SODIUM EXTENDED 17968445483 Active MARY Perez Active BUDEPRION SR 150 MG MA64R-SWR 1 bid BUPROPION HCL 47360283096 Active MARY Perez Active ALLOPURINOL 300 MG TABS 1 qd ALLOPURINOL 23542282882 Active MARY Perez Active COZAAR 100 MG TABS 1 qd LOSARTAN POTASSIUM 91800100353 Active MARY Perez Active FUROSEMIDE 20 MG TABS 1 qd FUROSEMIDE 20 MG TABS 857919 FUROSEMIDE Inactive DURAGESIC-12 12 MCG/HR PT72 APPLY PATCH TO SKIN AND CHANGE EVERY 72 HOURS, ROTATE SITES DURAGESIC-12 12 MCG/HR PT72 666130 FENTANYL Inactive FENTANYL 50 MCG/HR PT72 place 1 patch on skin q72 hours FENTANYL 50 MCG/HR PT72 246843 FENTANYL Inactive FUROSEMIDE 40 MG TABS 1 q am FUROSEMIDE 40 MG TABS 478534 FUROSEMIDE Inactive FENTANYL 75 MCG/HR PT72 place 1 patch on skin q72hrs fr pain 2012 FENTANYL 75 MCG/HR PT72 321797 FENTANYL Inactive DURAGESIC-25 25 MCG/HR PT72 place 1 patch on the skin q72hrs for pain DURAGESIC-25 25 MCG/HR PT72 095677 FENTANYL Inactive HYDROCHLOROTHIAZIDE 25 MG TABS 1 qd HYDROCHLOROTHIAZIDE 25 MG TABS 446404 HYDROCHLOROTHIAZIDE Inactive LISINOPRIL 40 MG TABS 1 qd LISINOPRIL 40 MG TABS 528360 LISINOPRIL Inactive METFORMIN HCL 500 MG TABS 1 bod with food METFORMIN HCL 500 MG TABS 310889 METFORMIN HCL Inactive METOPROLOL TARTRATE 50 MG TABS 1 bid METOPROLOL TARTRATE 50 MG TABS 375849 METOPROLOL TARTRATE Inactive GNP THERAPEUTIC-M TABS 1 qd GNP THERAPEUTIC-M TABS MULTIPLE VITAMINS-MINERALS Inactive AMBIEN 10 MG TABS 1 q hs prn AMBIEN 10 MG TABS 149906 ZOLPIDEM TARTRATE Inactive CLONIDINE HCL 0.2 MG TABS 1 q 8 hrs as needed -greater than 160-htn CLONIDINE HCL 0.2 MG TABS 115545 CLONIDINE HCL Inactive ANTIVERT 25 MG TABS 1 q 6 hrs prn ANTIVERT 25 MG TABS MECLIZINE HCL Inactive NEURONTIN 400 MG CAPS Take one by mouth 3 times daily, morning, afternoon and evening.] NEURONTIN 400 MG CAPS 272832 GABAPENTIN Inactive IMDUR 120 MG [id number] 1 qd IMDUR 120 MG [id number] ISOSORBIDE MONONITRATE Inactive [facility] MILK OF MAGNESIA [...] for arthritis pain MOBIC 15 MG TABS 159246 MELOXICAM Inactive LEVEMIR 100 UNIT/ML SOLN 5 units sub-q at bedtime LEVEMIR 100 UNIT/ML SOLN INSULIN DETEMIR Inactive FENTANYL 25 MCG/HR PT72 Apply to clean skin and change every 72 hours. 07/03 FENTANYL 25 MCG/HR PT72 771805 FENTANYL Inactive Advance Directives Directive Description Start [...] pressure, diastolic - 8462-4 81 mm[Hg] BP augutsin blood pressure, systolic - 8480-6 159 mm[Hg] [...] blood 40.0 % hemoglobin, blood 13.6 g/dL Lab Report: CBC W/DIFF - Hematology red blood cell distribution width 15.1 % 11.6-14.8 platelet count 121 10^3/MM^3 10*3/mm3 521-525 8278/02/18 leukocyte count, blood 6.9 10^3/MM^3 10*3/mm3 4.6-10.2 [...] Acid - Chemistry sodium, serum 141 mmol/L 761-942 0802/05/09 potassium, serum 3.9 mmol/L 3.5-5.2 chloride, serum [...] AUTO - Chemistry sodium, serum 140 mmol/L 315-418 2290/02/18 potassium, serum 3.8 mmol/L 3.5-5.2 chloride, serum [...] 5.0-8.5 Encounters Code Encounter Date Provider Facility CPT-27192 Level 3 Est. Patient 18:04:07 CDT Jonel Hemphill MD [facility] CPT-51409 Level 3 Est. Patient 17:18:03 CDT Jonel Hemphill MD [facility] CPT-02508 Level 3 Est. Patient 21:58:03 TIE LAYER Jonel Hemphill MD [facility] CPT-99448 Level 4 Est. Patient 18:03:14 CDT Jonel Hemphill MD [facility] CPT-55525 Level 4 Est. Patient 13:24:53 CDT Jonel Hemphill MD [facility]-56086 Level 4 Est. Patient 09:15:44 CDT Jonel Hemphill MD [facility]-30058 Level 4 Est. Patient 19:16:01 CDT Jonel Hemphill MD [facility]-55962 Level 4 Est. Patient 11:25:16 CDT Jonel Hemphill MD [facility] CPT-37269 Level 4 Est. Patient 09:00:40 CDT Jonel Hemphill MD [facility]-13984 Level 4 Est. Patient 14:53:58 CDT Jonel Hemphill MD [facility]-65929 Level 4 Est. Patient 22:59:01 CDT Jonel Hemphill MD [facility]-76861 Level 4 Est. Patient 09:29:57 CDT Jonel Hemphill MD [facility]-02559 Level 4 Est. Patient 12:35:53 TIE LAYER Jonel Hemphill MD [facility]-81771 Level 4 Est. Patient 22:36:09 TIE LAYER Jonel Hemphill MD [facility]-01644 Level 2 Est. Patient 15:14:15 TIE LAYER Mayco Shah APRN [facility] CPT-76313 Level 4 Est. Patient 10:36:22 TIE LAYER Jonel Hemphill MD [facility] CPT-77308 Level 4 Est. Patient 22:01:13 TIE LAYER Jonel Hemphill MD [facility]-68305 Level 3 Est. Patient 21:50:37 TIE LAYER Jonel Hemphill MD [facility] CPT-53077 Level 4 Est. Patient 15:02:43 CDT Rubin Pierre MD [facility] CPT-75968 Level 4 Est. Patient 14:27:35 CDT Jonel Hemphill MD [facility] CPT-27689 Level 4 Est. Patient 12:41:17 CDT Jonel Hemphill MD [facility]-21581 Level 4 Est. Patient 16:18:55 CDT Jonel Hemphill MD [facility] CPT-01181 Level 4 Est. Patient 17:58:05 CDT Jonel Hemphill MD [facility]-93633 Level 4 Est. Patient 22:10:06 CDT Jonel Hemphill MD [facility] CPT-35852 Level 4 Est. Patient 13:22:09 CDT Jonel Hemphill MD [facility] CPT-05070 Level 4 Est. Patient 22:52:17 TIE LAYER Jonel Hemphill MD [facility] CPT-64446 Level 3 Est. Patient 22:34:10 TIE LAYER Jonel Hemphill MD [facility] CPT-80794 Level 4 Est. Patient 07:49:20 TIE LAYER Jonel Hemphill MD [facility] Skilled CPT-52631 Level 3 Est. Patient 08:28:27 TIE LAYER Jonel Hemphill MD [facility] Procedures Code Procedure Name Date Entry Date Standard Description CPT-43722 Level 3 [facility] 17:35:26 TIE LAYER CPT-86488 Level 3 [facility] 18:44:49 TIE LAYER CPT-80868 Level 3 [facility] 18:17:33 CDT CPT-22372 Level 3 [facility] 09:25:33 CDT CPT-87334 Level 3 [facility] Care 19:11:57 CDT CPT-60287 Level 3 Senior Care 09:25:52 CDT CPT-45832 Level 3 Senior Care 14:23:59 CDT CPT-14772 Level 3 Senior Care 12:09:43 CDT CPT-29516 Level 3 Senior Care 09:37:40 CDT CPT-55985 Level 3 Senior Care 18:23:02 CDT CPT-41905 Level 3 Senior Care 14:09:06 CDT CPT-88452 Level 3 Senior Care 12:43:27 TIE LAYER CPT-68476 Postop F/U Visit 14:10:15 TIE LAYER CPT-01724 [facility] 17:07:14 TIE LAYER CPT-94028 Level 3 [facility] 16:14:37 TIE LAYER CPT-24339 Port a cath flush 11:47:42 CDT CPT-94220 Port a cath flush 08:29:49 CDT CPT-OV Office Visit 14:27:58 TIE LAYER
--- OUTSIDE RECORDS SUMMARY | 2016-08-07 12:17 | XMS REPORT | Clinical Summary ---
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 FEBUXOSTAT 87768670845 Active Marleni Romero Active HYDROCODONE-ACETAMINOPHEN 7.5-325 MG TABS 1 TAB PO Q 6 HRS PRN HYDROCODONE-ACETAMINOPHEN 43860586872 Active Jonel Hemphill MD Active METFORMIN HCL 1000 MG TABS 1 tablet by mouth twice daily METFORMIN HCL 16050581359 Active Marleni Romero Active FENTANYL 12 MCG/HR PT72 Apply to clean, dry skin and change every 72 hours FENTANYL 38115529855 Active Mattie Gates APRN Active KLOR-CON 20 MEQ ORAL PACK 1 BY MOUTH DAILY POTASSIUM CHLORIDE 78013744382 Active Marleni Romero Active A+D FIRST AID EXT OINT APPLY OINTMENT AND RUFINO WRAPS TO LOWER EXTEREMETIES DAILY SKIN PROTECTANTS, MISC. 46154834306 Active Jonel Hemphill MD Active NYSTATIN 222522 UNIT/GM EXT OINT APPLY PRN TID TO GAULDING/RASH IN ABDOMINAL FOLDS NYSTATIN 32510252803 Active Jonel Hemphill MD Active ATIVAN 0.5 MG TABS Take 1 tablet 2x daily PRN LORAZEPAM 91036855307 Active Jonel Hemphill MD Active GABAPENTIN 400 MG ORAL CAPS 1 TAB BY MOUTH THREE TIMES DAILY GABAPENTIN 11015356836 Active Jonel Hemphill MD Active GABAPENTIN 300 MG CAPS 1 CAP PO TID GABAPENTIN 80681266193 No Longer Active Jonel Hemphill MD Active DILANTIN 100 MG ORAL CAPS 1 THREE TIMES DAILY FOR SEIZURES PHENYTOIN SODIUM EXTENDED 15017200530 Active Marleni Romero Active CPAP APPLY AT HS CPAP Active Jonel Hemphill MD Active METOPROLOL TARTRATE 50 MG ORAL TABS 1 TAB BY MOUTH TWICE DAILY METOPROLOL TARTRATE 32531330823 Active Jonel Hemphill MD Active LISINOPRIL 40 MG TABS 1 tablet by mouth twice daily, for blood pressure 03/31 LISINOPRIL 43950459777 Active Jonel Hemphill MD Active BUPROPION HCL ER (SR) 150 MG [id number] 1 twice a day for depression BUPROPION HCL 35980461974 Active Jonel Hemphill MD Active MULTIVITAMINS CAPS 1 DAILY MULTIPLE VITAMIN 44069871230 Active Jonel Hemphill MD Active ZYLOPRIM 300 MG TAB 1 BY MOUTH DAILY ALLOPURINOL 45619407845 Active Jonel Hemphill MD Active HYDROCODONE-ACETAMINOPHEN 7.5-325 MG TABS 1 q 6 hrs prn HYDROCODONE-ACETAMINOPHEN 98825627075 No Longer Active Jonel Hemphill MD Active DILANTIN 100 MG CAPS 3 cap tid PHENYTOIN SODIUM EXTENDED 74587496287 No Longer Active Jonel Hemphill MD Active BUDEPRION SR 150 MG [id number] 1 bid BUPROPION HCL 29376926069 No Longer Active Jonel Hemphill MD Active ALLOPURINOL 300 MG TABS 1 qd ALLOPURINOL 87306994631 No Longer Active Jonel Hemphill MD Active COZAAR 100 MG TABS 1 qd LOSARTAN POTASSIUM 88714153441 No Longer Active Jonel Hemphill MD Active CVS VITAMIN C 500 MG TABS 1 po daily ASCORBIC ACID 18848566004 No Longer Active Jonel Hemphill MD Active MIRALAX POWD 17 gms in 4 oz water or juice daily POLYETHYLENE GLYCOL 3350 99756710808 No Longer Active Jonel Hemphill MD Active POTASSIUM CHLORIDE CHELA ER 20 MEQ CR-TABS 1 tab PO daily POTASSIUM CHLORIDE CHELA CR 01217243061 No Longer Active Jonel Hemphill MD Active AMBIEN 10 MG TAB 1 tab by mouth at bedtime as needed for sleep ZOLPIDEM TARTRATE 11010808263 No Longer Active Jonel Hemphill MD Active SULFAMETHOXAZOLE-TMP DS 800-160 MG TABS 1 TAB PO BID SULFAMETHOXAZOLE-TRIMETHOPRIM 78432530616 No Longer Active Jonel Hemphill MD Active NORCO 5-325 MG TABS 1-2 TAB Q 6 HRS PRN HYDROCODONE- ACETAMINOPHEN 68229277767 Active Jonel Hemphill MD Active LEVEMIR 100 UNIT/ML SOLN 5 units sub-q at bedtime INSULIN DETEMIR 93623744452 No Longer Active Tova Perez Active MOBIC 15 MG TABS 1 tab PO daily for arthritis pain MELOXICAM 34794177255 No Longer Active Tova Perez Active GLUCAGEN 1 MG SOLR INJECT 1MG IM IF BS LESS THAN 60 & RES. IS UNABLE TO SWALLOW GLUCAGON HCL (RDNA) 50199173016 No Longer Active Tova Perez Active CVS MILK OF MAGNESIA 1200 MG/15ML SUSP 30 ml daily for constipation MAGNESIUM HYDROXIDE 22570932271 No Longer Active Tova Perez Active IMDUR 120 MG [id number] 1 qd ISOSORBIDE MONONITRATE 75875735906 No Longer Active Tova Chris Active PHENYTOIN 50 MG CHEW 1 TAB PO BID PHENYTOIN 44520393195 Active Tova Chris Active MECLIZINE HCL 25 MG CHEW TAB 1 four times a day as needed for dizziness 02/21 MECLIZINE HCL 33749625258 Active Tova Chris Active NEURONTIN 400 MG CAPS Take one by mouth 3 times daily, morning, afternoon and evening.] GABAPENTIN 54823062666 No Longer Active Tova Perez Active ANTIVERT 25 MG TABS 1 q 6 hrs prn MECLIZINE HCL 42600325708 No Longer Active Jonel Hemphill MD Active CLONIDINE HCL 0.2 MG TABS 1 q 8 hrs as needed -greater than 160-htn CLONIDINE HCL 15746469080 No Longer Active Jonel Hemphill MD Active AMBIEN 10 MG TABS 1 q hs prn ZOLPIDEM TARTRATE 89936112650 No Longer Active Jonel Hemphill MD Active GNP THERAPEUTIC-M TABS 1 qd MULTIPLE VITAMINS- MINERALS 27862052570 No Longer Active Jonel Hemphill MD Active METOPROLOL TARTRATE 50 MG TABS 1 bid METOPROLOL TARTRATE 69567687334 No Longer Active Jonel Hemphill MD Active METFORMIN HCL 500 MG TABS 1 bod with food METFORMIN HCL 20962815013 No Longer Active Jonel Hemphill MD Active LISINOPRIL 40 MG TABS 1 qd LISINOPRIL 72702530725 No Longer Active Jonel Hemphill MD Active HYDROCHLOROTHIAZIDE 25 MG TABS 1 qd HYDROCHLOROTHIAZIDE 59318531399 No Longer Active Jonel Hemphill MD Active DURAGESIC-25 25 MCG/HR PT72 place 1 patch on the skin q72hrs for pain FENTANYL 24945344374 No Longer Active Jonel Hemphill MD Active FENTANYL 75 MCG/HR PT72 place 1 patch on skin q72hrs fr pain 2012 FENTANYL 47727750758 No Longer Active Jonel Hemphill MD Active LASIX 20 MG TABS 1 tab PO q morning FUROSEMIDE 26792630008 Active Jonel Hemphill MD Active FUROSEMIDE 40 MG TABS 1 q am FUROSEMIDE 88697443543 No Longer Active Jonel Hemphill MD Active HEPARIN (PORCINE) LOCK FLUSH 100 UNIT/ML SOLN Flush port a cath monthly every three week on with Heparin and NS HEPARIN LOCK FLUSH 93515863131 Active Jonel Hemphill MD Active FENTANYL 100 MCG/HR PT72 Apply every 3 days FENTANYL 59434290061 Active Mattie Gates APRN Active FENTANYL 25 MCG/HR PT72 Apply to clean skin and change every 72 hours. 07/03 FENTANYL 13795096871 No Longer Active Jonel Hemphill MD Active FENTANYL 50 MCG/HR PT72 place 1 patch on skin q72 hours FENTANYL 42341186561 No Longer Active Mayco Shah APRN Active CELEXA 20 MG TABS Take 1 tablet 1x daily CITALOPRAM HYDROBROMIDE 83853848799 Active Jonel Hemphill MD Active DURAGESIC-12 12 MCG/HR PT72 APPLY PATCH TO SKIN AND CHANGE EVERY 72 HOURS, ROTATE SITES FENTANYL 44061109460 No Longer Active Fozia Amador RMA Active FUROSEMIDE 20 MG TABS 1 qd FUROSEMIDE 27961034959 No Longer Active Mahogany Fullerton Active ADULT ASPIRIN EC LOW STRENGTH 81 MG TBEC 1 qd ASPIRIN 40957014420 Active MARY Perez Active FUROSEMIDE 20 MG TABS 1 qd FUROSEMIDE 20 MG TABS 066458 FUROSEMIDE Inactive DURAGESIC-12 12 MCG/HR PT72 APPLY PATCH TO SKIN AND CHANGE EVERY 72 HOURS, ROTATE SITES DURAGESIC-12 12 MCG/HR PT72 862398 FENTANYL Inactive FENTANYL 50 MCG/HR PT72 place 1 patch on skin q72 hours FENTANYL 50 MCG/HR PT72 898737 FENTANYL Inactive FUROSEMIDE 40 MG TABS 1 q am FUROSEMIDE 40 MG TABS 093136 FUROSEMIDE Inactive FENTANYL 75 MCG/HR PT72 place 1 patch on skin q72hrs fr pain 2012 FENTANYL 75 MCG/HR PT72 734951 FENTANYL Inactive DURAGESIC-25 25 MCG/HR PT72 place 1 patch on the skin q72hrs for pain DURAGESIC-25 25 MCG/HR PT72 001147 FENTANYL Inactive HYDROCHLOROTHIAZIDE 25 MG TABS 1 qd HYDROCHLOROTHIAZIDE 25 MG TABS 006823 HYDROCHLOROTHIAZIDE Inactive LISINOPRIL 40 MG TABS 1 qd LISINOPRIL 40 MG TABS 041850 LISINOPRIL Inactive METFORMIN HCL 500 MG TABS 1 bod with food METFORMIN HCL 500 MG TABS 832760 METFORMIN HCL Inactive METOPROLOL TARTRATE 50 MG TABS 1 bid METOPROLOL TARTRATE 50 MG TABS 951607 METOPROLOL TARTRATE Inactive GNP THERAPEUTIC-M TABS 1 qd GNP THERAPEUTIC-M TABS MULTIPLE VITAMINS-MINERALS Inactive AMBIEN 10 MG TABS 1 q hs prn AMBIEN 10 MG TABS 623498 ZOLPIDEM TARTRATE Inactive CLONIDINE HCL 0.2 MG TABS 1 q 8 hrs as needed -greater than 160-htn CLONIDINE HCL 0.2 MG TABS 301782 CLONIDINE HCL Inactive ANTIVERT 25 MG TABS 1 q 6 hrs prn ANTIVERT 25 MG TABS MECLIZINE HCL Inactive NEURONTIN 400 MG CAPS Take one by mouth 3 times daily, morning, afternoon and evening.] NEURONTIN 400 MG CAPS 284918 GABAPENTIN Inactive IMDUR 120 MG [id number] 1 qd IMDUR 120 MG [id number] ISOSORBIDE MONONITRATE Inactive CVS MILK OF MAGNESIA [...] for arthritis pain MOBIC 15 MG TABS 465652 MELOXICAM Inactive LEVEMIR 100 UNIT/ML SOLN 5 units sub-q at bedtime LEVEMIR 100 UNIT/ML SOLN INSULIN DETEMIR Inactive SULFAMETHOXAZOLE-TMP DS 800-160 MG TABS 1 TAB PO BID SULFAMETHOXAZOLE-TMP DS 800-160 MG TABS 842920 SULFAMETHOXAZOLE-TRIMETHOPRIM Inactive AMBIEN 10 MG TAB 1 tab by mouth at bedtime as needed for sleep AMBIEN 10 MG TAB 126780 ZOLPIDEM TARTRATE Inactive POTASSIUM CHLORIDE CHELA ER 20 MEQ CR-TABS 1 tab PO daily POTASSIUM CHLORIDE CHELA ER 20 MEQ CR-TABS POTASSIUM CHLORIDE CHELA CR Inactive MIRALAX POWD 17 gms in 4 oz water or juice daily MIRALAX POWD 690265 POLYETHYLENE GLYCOL 3350 Inactive CVS VITAMIN C 500 MG TABS 1 po daily CVS VITAMIN C 500 MG TABS 214425 ASCORBIC ACID Inactive COZAAR 100 MG TABS 1 qd COZAAR 100 MG TABS 729133 LOSARTAN POTASSIUM Inactive ALLOPURINOL 300 MG TABS 1 qd ALLOPURINOL 300 MG TABS 495766 ALLOPURINOL Inactive BUDEPRION SR 150 MG [id number] 1 bid BUDEPRION SR 150 MG [id number] BUPROPION HCL Inactive DILANTIN 100 MG CAPS 3 cap tid DILANTIN 100 MG CAPS 462755 PHENYTOIN SODIUM EXTENDED Inactive HYDROCODONE-ACETAMINOPHEN 7.5-325 MG TABS 1 q 6 hrs prn HYDROCODONE-ACETAMINOPHEN 7.5-325 MG TABS 371065 HYDROCODONE- ACETAMINOPHEN Inactive GABAPENTIN 300 MG CAPS 1 CAP PO TID GABAPENTIN 300 MG CAPS 133657 GABAPENTIN Inactive FENTANYL 25 MCG/HR PT72 Apply to clean skin and change every 72 hours. 07/03 FENTANYL 25 MCG/HR PT72 852383 FENTANYL Inactive Advance Directives Directive Description Start [...] 13 U/L alkaline phosphatase, serum 51 U/L aspartate aminotransferase (SGOT), serum 14 U/L alanine aminotransferase (SGPT), serum 23 U/L alkaline phosphatase, serum 40 U/L sodium, serum 139 mmol/L potassium, serum 4.8 mmol/L blood glucose 239 mg/dL creatinine, serum 1.17 mg/dL creatinine, serum 1.26 mg/dL blood glucose 190 [...] 4.3-6.0 Encounters Code Encounter Date Provider Facility CPT-57057 Level 3 Est. Patient 19:05:03 CDT Jonel Hemphill MD [facility] CPT-61692 Level 3 Est. Patient 17:30:47 CDT Kevin Link MD [facility] CPT-92328 Level 3 Est. Patient 18:04:07 CDT Jonel Hemphill MD [facility] CPT-35578 Level 3 Est. Patient 17:18:03 CDT Jonel Hemphill MD [facility] CPT-64026 Level 3 Est. Patient 21:58:03 ANALOG IC DESIGN ARCHITECT Jonel Hemphill MD [facility] CPT-25431 Level 4 Est. Patient 18:03:14 CDT Jonel Hemphill MD [facility]-02324 Level 4 Est. Patient 13:24:53 CDT Jonel Hemphill MD [facility]-59593 Level 4 Est. Patient 09:15:44 CDT Jonel Hemphill MD [facility]-76626 Level 4 Est. Patient 19:16:01 CDT Jonel Hemphill MD [facility]-41248 Level 4 Est. Patient 11:25:16 CDT Jonel Hemphill MD [facility]-35095 Level 4 Est. Patient 09:00:40 CDT Jonel Hemphill MD [facility]-52008 Level 4 Est. Patient 14:53:58 CDT Jonel Hemphill MD [facility]-68830 Level 4 Est. Patient 22:59:01 CDT Jonel Hemphill MD [facility]-50902 Level 4 Est. Patient 09:29:57 CDT Jonel Hemphill MD [facility]-81704 Level 4 Est. Patient 12:35:53 ANALOG IC DESIGN ARCHITECT Jonel Hemphill MD [facility]-31600 Level 4 Est. Patient 22:36:09 ANALOG IC DESIGN ARCHITECT Jonel Hemphill MD [facility]-52370 Level 2 Est. Patient 15:14:15 ANALOG IC DESIGN ARCHITECT Mayco Shah APRN [facility]-10432 Level 4 Est. Patient 10:36:22 ANALOG IC DESIGN ARCHITECT Jonel Hemphill MD [facility]-98541 Level 4 Est. Patient 22:01:13 ANALOG IC DESIGN ARCHITECT Jonel Hemphill MD [facility]-62190 Level 3 Est. Patient 21:50:37 ANALOG IC DESIGN ARCHITECT Jonel Hemphill MD [facility] CPT-42057 Level 4 Est. Patient 15:02:43 CDT Rubin Pierre MD [facility] CPT-45381 Level 4 Est. Patient 14:27:35 CDT Jonel Hemphill MD [facility]-03474 Level 4 Est. Patient 12:41:17 CDT Jonel Hemphill MD [facility]-39516 Level 4 Est. Patient 16:18:55 CDT Jonel Hemphill MD [facility]-48502 Level 4 Est. Patient 17:58:05 CDT Jonel Hemphill MD [facility]-87411 Level 4 Est. Patient 22:10:06 CDT Jonel Hemphill MD [facility] CPT-80354 Level 4 Est. Patient 13:22:09 CDT Jonel Hemphill MD [facility] CPT-27760 Level 4 Est. Patient 22:52:17 ANALOG IC DESIGN ARCHITECT Jonel Hemphill MD [facility]-74365 Level 3 Est. Patient 22:34:10 ANALOG IC DESIGN ARCHITECT Jonel Hemphill MD [facility] CPT-64810 Level 4 Est. Patient 07:49:20 ANALOG IC DESIGN ARCHITECT Jonel Hemphill MD [facility] Skilled CPT-52071 Level 3 Est. Patient 08:28:27 ANALOG IC DESIGN ARCHITECT Jonel Hemphill MD [facility] Procedures Code Procedure Name Date Entry Date Standard Description CPT-89915 Level 3 Retirement 17:42:11 CDT CPT-02290 Level 3 Retirement 16:04:10 CDT CPT-27855 Level 3 Retirement 19:38:15 ANALOG IC DESIGN ARCHITECT CPT-14399 Level 3 Retirement 19:28:48 ANALOG IC DESIGN ARCHITECT CPT-41561 Level 3 Retirement 18:02:20 ANALOG IC DESIGN ARCHITECT CPT-54626 Level 3 Retirement 15:02:14 ANALOG IC DESIGN ARCHITECT CPT-58989 Level 3 Retirement 12:25:37 CDT CPT-49876 Level 3 Retirement 12:48:39 CDT CPT-71496 Level 3 Retirement 17:39:14 CDT CPT-80620 Level 3 Retirement 13:32:58 CDT CPT-14677 Level 3 Retirement 17:43:43 CDT CPT-25460 Level 3 Retirement 12:03:33 ANALOG IC DESIGN ARCHITECT CPT-88830 Level 3 Retirement 18:47:28 ANALOG IC DESIGN ARCHITECT CPT-26542 Level 3 Retirement 17:35:26 ANALOG IC DESIGN ARCHITECT CPT-04440 Level 3 Retirement 18:44:49 ANALOG IC DESIGN ARCHITECT CPT-43750 Level 3 Retirement 18:17:33 CDT CPT-22868 Level 3 Retirement 09:25:33 CDT CPT-36345 Level 3 Retirement 19:11:57 CDT CPT-67421 Level 3 Retirement 09:25:52 CDT CPT-16986 Level 3 Retirement 14:23:59 CDT CPT-72946 Level 3 Retirement 12:09:43 CDT CPT-63829 Level 3 Retirement 09:37:40 CDT CPT-13871 Level 3 Retirement 18:23:02 CDT CPT-04379 Level 3 Retirement 14:09:06 CDT CPT-37473 Level 3 Retirement 12:43:27 ANALOG IC DESIGN ARCHITECT CPT-17811 Postop F/U Visit 14:10:15 ANALOG IC DESIGN ARCHITECT CPT-18264 [facility] 17:07:14 ANALOG IC DESIGN ARCHITECT CPT-34578 Level 3 Retirement 16:14:37 ANALOG IC DESIGN ARCHITECT CPT-52766 Port a cath flush 11:47:42 CDT CPT-72621 Port a cath flush 08:29:49 CDT CPT-OV Office Visit 14:27:58 ANALOG IC DESIGN ARCHITECT
--- OUTSIDE RECORDS SUMMARY | 2016-08-07 12:17 | XMS REPORT ---
Author Author [facility] Medical Staff Organization [facility] Address [address] [place], [place] [id number] Phone [phone] Care Team Providers Care Manager Implementation Name Role Phone FRANKO PRIETO MD PP [phone] Summary purpose CCDA Sent to [facility] Chief Complaint and Reason for [...]
--- OUTSIDE RECORDS SUMMARY | 2016-08-07 12:19 | XMS REPORT | Clinical Summary ---
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 V58.69 Resolved Jonel Hemphill MD Long-term (current) [...] Coronary atherosclerosis of unspecified type of vessel, [place] or graft FH DIABETES V18.0 Resolved Jonel [...] Coronary atherosclerosis of unspecified type of vessel, [place] or graft CONSTIPATION 564.00 Resolved Jonel Hemphill [...] Obstructive sleep apnea (adult) (pediatric) 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 USE, AUTO DAMAGE APPRAISER ICD-V58.69 Inactive Jonel Hemphill MD DIABETES, TYPE [...] MD Cellulitis, leg, right ICD-682.6 Inactive Jonel Hempihll MD Chest wall pain, acute ICD-786.52 Inactive Jonel Hemphill MD Medication List Medication Instructions Start Date Stop Date Generic Name NDC Status Provider Patient Instruction FENTANYL 12 MCG/HR PT72 Apply to clean, dry skin and change every 72 hours FENTANYL [id number] Active Tova Chris Active MIRALAX POWD 17 gms in 4 oz water or juice daily POLYETHYLENE GLYCOL 3350 65293713112 Active Jonel Hemphill MD Active CVS MELATONIN 3 MG ORAL TABS 2 tabs at hs MELATONIN 49883544662 Active Jonel Hemphill MD Active MAGNESIUM GLUCONATE 500 MG ORAL TABS 1 tab twice daily MAGNESIUM GLUCONATE 41970197236 Active Jonel Hemphill MD Active OMEPRAZOLE 20 MG CPDR 1 tablet by mouth daily OMEPRAZOLE 20398910649 Active Jonel Hemphill MD Active DIGOXIN 125 MCG ORAL TABS 1 daily DIGOXIN 56150777360 Active Jonel Hemphill MD Active DILTIAZEM CD 240 MG ORAL [id number] 1 daily DILTIAZEM HCL COATED BEADS 38350269971 Active Jonel Hemphill MD Active NOVOLOG 100 UNIT/ML SC SOLN 70-140=0U 141-180=2 U 181-220=4U 221-260=6U 261- 300=8U 301-340=10U 025=879=59H 381-400=14U INSULIN ASPART 12779698064 Active Jonel Hemphill MD Active ACETAMINOPHEN 325 MG ORAL TABS 1 tab by mouth every 4 hours as needed ACETAMINOPHEN 31281443557 Active Jonel Hemphill MD Active FENTANYL 12 MCG/HR PT72 Apply to clean, dry skin and change every 72 hours FENTANYL 93226301654 No Longer Active Jonel Hemphill MD Active PHENYTOIN 50 MG CHEW 1 TAB PO BID PHENYTOIN 15326718721 No Longer Active Jonel Hemphill MD Active NORCO 5-325 MG TABS 1-2 TAB Q 6 HRS PRN HYDROCODONE- ACETAMINOPHEN 02965487108 No Longer Active Jonel Hemphill MD Active MULTIVITAMINS CAPS 1 DAILY MULTIPLE VITAMIN 13888898825 No Longer Active Jonel Hemphill MD Active BUPROPION HCL ER (SR) 150 MG [id number] 1 twice a day for depression BUPROPION HCL 57019331009 No Longer Active Jonel Hemphill MD Active LISINOPRIL 20 MG TABS 1 tablet by mouth daily LISINOPRIL 69183071157 Active Jonel Hemphill MD Active ULORIC 40 MG ORAL TABS 1 daily for gout. FEBUXOSTAT 99755327017 No Longer Active Jonel Hemphill MD Active CELEXA 20 MG TABS 1 tablet by mouth daily CITALOPRAM HYDROBROMIDE 59781717540 Active Marleni Raida Active ZOFRAN 4 MG TABS 1 po q6hr PRN Nausea ONDANSETRON HCL 08529194935 Active Jonel Hemphill MD Active XARELTO 20 MG ORAL TABS 1 daily RIVAROXABAN 47198942369 Active Jonel Hemphill MD Active JANUVIA 100 MG ORAL TABS 2 tabs daily SITAGLIPTIN PHOSPHATE 90931755717 Active Jonel Hemphill MD Active CELEXA 20 MG TABS Take 1 tablet 1x daily CITALOPRAM HYDROBROMIDE 92209419643 No Longer Active Jonel Hemphill MD Active ATIVAN 0.5 MG TABS Take 1 tablet 2x daily PRN LORAZEPAM 77800057172 No Longer Active Jonel Hemphill MD Active FUROSEMIDE 80 MG ORAL TABS 1 daily FUROSEMIDE 01783346495 Active Jonel Hemphill MD Active MECLIZINE HCL 25 MG CHEW TAB 1 four times a day as needed for dizziness 02/21 MECLIZINE HCL 07314198409 No Longer Active Jonel Hemphill MD Active ZYLOPRIM 300 MG TAB 1 BY MOUTH DAILY ALLOPURINOL 47832849555 No Longer Active Jonel Hemphill MD Active METOPROLOL TARTRATE 50 MG ORAL TABS 1 TAB BY MOUTH TWICE DAILY METOPROLOL TARTRATE 11757806315 No Longer Active Jonel Hemphill MD Active GABAPENTIN 400 MG ORAL CAPS 1 TAB BY MOUTH THREE TIMES DAILY 2015 GABAPENTIN 67916370384 No Longer Active Jonel Hemphill MD Active HYDROCODONE-ACETAMINOPHEN 7.5-325 MG TABS 1 TAB PO Q 6 HRS PRN HYDROCODONE-ACETAMINOPHEN 20792379569 Active Jonel Hemphill MD Active METFORMIN HCL 1000 MG TABS 1 tablet by mouth twice daily METFORMIN HCL 90504555898 Active Marleni Romero Active KLOR-CON 20 MEQ ORAL PACK 1 BY MOUTH DAILY POTASSIUM CHLORIDE 38398308482 Active Marleni Romero Active A+D FIRST AID EXT OINT APPLY OINTMENT AND RUFINO WRAPS TO LOWER EXTEREMETIES DAILY SKIN PROTECTANTS, MISC. 25462262132 Active Jonel Hemphill MD Active NYSTATIN 785439 UNIT/GM EXT OINT APPLY PRN TID TO GAULDING/RASH IN ABDOMINAL FOLDS NYSTATIN 28302340907 Active Jonel Hemphill MD Active GABAPENTIN 300 MG CAPS 1 CAP PO TID GABAPENTIN 66798585804 No Longer Active Jonel Hemphill MD Active DILANTIN 100 MG ORAL CAPS 1 THREE TIMES DAILY FOR SEIZURES PHENYTOIN SODIUM EXTENDED 95587471438 Active Marleni Romero Active CPAP APPLY AT HS CPAP Active Jonel Hemphill MD Active HYDROCODONE-ACETAMINOPHEN 7.5-325 MG TABS 1 q 6 hrs prn HYDROCODONE-ACETAMINOPHEN 03633594028 No Longer Active Jonel Hemphill MD Active DILANTIN 100 MG CAPS 3 cap tid PHENYTOIN SODIUM EXTENDED 11219484897 No Longer Active Jonel Hemphill MD Active BUDEPRION SR 150 MG [id number] 1 bid BUPROPION HCL 32821965630 No Longer Active Jonel Hemphill MD Active ALLOPURINOL 300 MG TABS 1 qd ALLOPURINOL 78568631183 No Longer Active Jonel Hemphill MD Active COZAAR 100 MG TABS 1 qd LOSARTAN POTASSIUM 25196556299 No Longer Active Jonel Hemphill MD Active CVS VITAMIN C 500 MG TABS 1 po daily ASCORBIC ACID 33874439200 No Longer Active Jonel Hemphill MD Active MIRALAX POWD 17 gms in 4 oz water or juice daily POLYETHYLENE GLYCOL 3350 43078511867 No Longer Active Jonel Hemphill MD Active POTASSIUM CHLORIDE CHELA ER 20 MEQ CR-TABS 1 tab PO daily POTASSIUM CHLORIDE CHELA CR 97511932177 No Longer Active Jonel Hemphill MD Active AMBIEN 10 MG TAB 1 tab by mouth at bedtime as needed for sleep ZOLPIDEM TARTRATE 36131350814 No Longer Active Jonel Hemphill MD Active SULFAMETHOXAZOLE-TMP DS 800-160 MG TABS 1 TAB PO BID SULFAMETHOXAZOLE-TRIMETHOPRIM 27666326485 No Longer Active Jonel Hemphill MD Active LEVEMIR 100 UNIT/ML SOLN 5 units sub-q at bedtime INSULIN DETEMIR 78291229619 No Longer Active Tova Perez Active MOBIC 15 MG TABS 1 tab PO daily for arthritis pain MELOXICAM 65800721129 No Longer Active Tova Perez Active GLUCAGEN 1 MG SOLR INJECT 1MG IM IF BS LESS THAN 60 & RES. IS UNABLE TO SWALLOW GLUCAGON HCL (RDNA) 54695433872 No Longer Active Tova Perez Active CVS MILK OF MAGNESIA 1200 MG/15ML SUSP 30 ml daily for constipation MAGNESIUM HYDROXIDE 77287251229 No Longer Active Tova Perez Active IMDUR 120 MG [id number] 1 qd ISOSORBIDE MONONITRATE 68075321107 No Longer Active Tova Perez Active NEURONTIN 400 MG CAPS Take one by mouth 3 times daily, morning, afternoon and evening.] GABAPENTIN 12714511032 No Longer Active Tova Perez Active ANTIVERT 25 MG TABS 1 q 6 hrs prn MECLIZINE HCL 60872725920 No Longer Active Jonel Hemphill MD Active CLONIDINE HCL 0.2 MG TABS 1 q 8 hrs as needed -greater than 160-htn CLONIDINE HCL 64910927853 No Longer Active Jonel Hemphill MD Active AMBIEN 10 MG TABS 1 q hs prn ZOLPIDEM TARTRATE 52306140303 No Longer Active Jonel Hemphill MD Active GNP THERAPEUTIC-M TABS 1 qd MULTIPLE VITAMINS- MINERALS 92529575877 No Longer Active Jonel Hemphill MD Active METOPROLOL TARTRATE 50 MG TABS 1 bid METOPROLOL TARTRATE 59795402886 No Longer Active Jonel Hemphill MD Active METFORMIN HCL 500 MG TABS 1 bod with food METFORMIN HCL 66089649010 No Longer Active Jonel Hemphill MD Active LISINOPRIL 40 MG TABS 1 qd LISINOPRIL 74380118470 No Longer Active Jonel Hemphill MD Active HYDROCHLOROTHIAZIDE 25 MG TABS 1 qd HYDROCHLOROTHIAZIDE 49522640232 No Longer Active Jonel Hemphill MD Active DURAGESIC-25 25 MCG/HR PT72 place 1 patch on the skin q72hrs for pain FENTANYL 37864227966 No Longer Active Jonel Hemphill MD Active FENTANYL 75 MCG/HR PT72 place 1 patch on skin q72hrs fr pain 2012 FENTANYL 78809155787 No Longer Active Jonel Hemphill MD Active FUROSEMIDE 40 MG TABS 1 q am FUROSEMIDE 36661354287 No Longer Active Jonel Hemphill MD Active HEPARIN (PORCINE) LOCK FLUSH 100 UNIT/ML SOLN Flush port a cath monthly every three week on with Heparin and NS HEPARIN LOCK FLUSH 79986000169 Active Jonel Hemphill MD Active FENTANYL 100 MCG/HR PT72 Apply every 3 days FENTANYL 41249642282 Active Jonel Hemphill MD Active FENTANYL 25 MCG/HR PT72 Apply to clean skin and change every 72 hours. 07/03 FENTANYL 08284971605 No Longer Active Jonel Hemphill MD Active FENTANYL 50 MCG/HR PT72 place 1 patch on skin q72 hours FENTANYL 98646892699 No Longer Active Mayco Shah APRN Active DURAGESIC-12 12 MCG/HR PT72 APPLY PATCH TO SKIN AND CHANGE EVERY 72 HOURS, ROTATE SITES FENTANYL 74216839072 No Longer Active Fozia YANGA Active FUROSEMIDE 20 MG TABS 1 qd FUROSEMIDE 93449733022 No Longer Active Mahogany [place] Active ADULT ASPIRIN EC LOW STRENGTH 81 MG TBEC 1 qd ASPIRIN 21557363827 Active MARY Perez Active FUROSEMIDE 20 MG TABS 1 qd FUROSEMIDE 20 MG TABS 903195 FUROSEMIDE Inactive DURAGESIC-12 12 MCG/HR PT72 APPLY PATCH TO SKIN AND CHANGE EVERY 72 HOURS, ROTATE SITES DURAGESIC-12 12 MCG/HR PT72 262400 FENTANYL Inactive FENTANYL 50 MCG/HR PT72 place 1 patch on skin q72 hours FENTANYL 50 MCG/HR PT72 150255 FENTANYL Inactive FUROSEMIDE 40 MG TABS 1 q am FUROSEMIDE 40 MG TABS 462006 FUROSEMIDE Inactive FENTANYL 75 MCG/HR PT72 place 1 patch on skin q72hrs fr pain 2012 FENTANYL 75 MCG/HR PT72 285407 FENTANYL Inactive DURAGESIC-25 25 MCG/HR PT72 place 1 patch on the skin q72hrs for pain DURAGESIC-25 25 MCG/HR PT72 557590 FENTANYL Inactive HYDROCHLOROTHIAZIDE 25 MG TABS 1 qd HYDROCHLOROTHIAZIDE 25 MG TABS 085429 HYDROCHLOROTHIAZIDE Inactive LISINOPRIL 40 MG TABS 1 qd LISINOPRIL 40 MG TABS 562708 LISINOPRIL Inactive METFORMIN HCL 500 MG TABS 1 bod with food METFORMIN HCL 500 MG TABS 184587 METFORMIN HCL Inactive METOPROLOL TARTRATE 50 MG TABS 1 bid METOPROLOL TARTRATE 50 MG TABS 099248 METOPROLOL TARTRATE Inactive GNP THERAPEUTIC-M TABS 1 qd GNP THERAPEUTIC-M TABS MULTIPLE VITAMINS-MINERALS Inactive AMBIEN 10 MG TABS 1 q hs prn AMBIEN 10 MG TABS 279709 ZOLPIDEM TARTRATE Inactive CLONIDINE HCL 0.2 MG TABS 1 q 8 hrs as needed -greater than 160-htn CLONIDINE HCL 0.2 MG TABS 118969 CLONIDINE HCL Inactive ANTIVERT 25 MG TABS 1 q 6 hrs prn ANTIVERT 25 MG TABS MECLIZINE HCL Inactive NEURONTIN 400 MG CAPS Take one by mouth 3 times daily, morning, afternoon and evening.] NEURONTIN 400 MG CAPS 454945 GABAPENTIN Inactive IMDUR 120 MG [id number] 1 qd IMDUR 120 MG [id number] ISOSORBIDE MONONITRATE Inactive CVS MILK OF MAGNESIA [...] for arthritis pain MOBIC 15 MG TABS 613848 MELOXICAM Inactive LEVEMIR 100 UNIT/ML SOLN 5 units sub-q at bedtime LEVEMIR 100 UNIT/ML SOLN INSULIN DETEMIR Inactive SULFAMETHOXAZOLE-TMP DS 800-160 MG TABS 1 TAB PO BID SULFAMETHOXAZOLE-TMP DS 800-160 MG TABS 499739 SULFAMETHOXAZOLE-TRIMETHOPRIM Inactive AMBIEN 10 MG TAB 1 tab by mouth at bedtime as needed for sleep AMBIEN 10 MG TAB 283723 ZOLPIDEM TARTRATE Inactive POTASSIUM CHLORIDE CHELA ER 20 MEQ CR-TABS 1 tab PO daily POTASSIUM CHLORIDE CHELA ER 20 MEQ CR-TABS POTASSIUM CHLORIDE CHELA CR Inactive MIRALAX POWD 17 gms in 4 oz water or juice daily MIRALAX POWD 523477 POLYETHYLENE GLYCOL 3350 Inactive CVS VITAMIN C 500 MG TABS 1 po daily CVS VITAMIN C 500 MG TABS 211002 ASCORBIC ACID Inactive COZAAR 100 MG TABS 1 qd COZAAR 100 MG TABS 232726 LOSARTAN POTASSIUM Inactive ALLOPURINOL 300 MG TABS 1 qd ALLOPURINOL 300 MG TABS 111933 ALLOPURINOL Inactive BUDEPRION SR 150 MG [id number] 1 bid BUDEPRION SR 150 MG [id number] BUPROPION HCL Inactive DILANTIN 100 MG CAPS 3 cap tid DILANTIN 100 MG CAPS 876656 PHENYTOIN SODIUM EXTENDED Inactive HYDROCODONE-ACETAMINOPHEN 7.5-325 MG TABS 1 q 6 hrs prn HYDROCODONE-ACETAMINOPHEN 7.5-325 MG TABS 667749 HYDROCODONE- ACETAMINOPHEN Inactive GABAPENTIN 300 MG CAPS 1 CAP PO TID GABAPENTIN 300 MG CAPS 754593 GABAPENTIN Inactive GABAPENTIN 400 MG ORAL CAPS 1 TAB BY MOUTH THREE TIMES DAILY 2015 GABAPENTIN 400 MG ORAL CAPS 893274 GABAPENTIN Inactive METOPROLOL TARTRATE 50 MG ORAL TABS 1 TAB BY MOUTH TWICE DAILY METOPROLOL TARTRATE 50 MG ORAL TABS 109241 METOPROLOL TARTRATE Inactive ZYLOPRIM 300 MG TAB 1 BY MOUTH DAILY ZYLOPRIM 300 MG TAB 823149 ALLOPURINOL Inactive MECLIZINE HCL 25 MG CHEW TAB 1 four times a day as needed for dizziness 02/21 MECLIZINE HCL 25 MG CHEW TAB 949920 MECLIZINE HCL Inactive ATIVAN 0.5 MG TABS Take 1 tablet 2x daily PRN ATIVAN 0.5 MG TABS 266718 LORAZEPAM Inactive CELEXA 20 MG TABS Take 1 tablet 1x daily CELEXA 20 MG TABS 995501 CITALOPRAM HYDROBROMIDE Inactive ULORIC 40 MG ORAL TABS 1 daily for gout. ULORIC 40 MG ORAL TABS FEBUXOSTAT Inactive BUPROPION HCL ER (SR) 150 MG [id number] 1 twice a day for depression BUPROPION HCL ER (SR) 150 MG [id number] BUPROPION HCL Inactive MULTIVITAMINS CAPS 1 DAILY MULTIVITAMINS CAPS MULTIPLE VITAMIN Inactive NORCO 5-325 MG TABS 1-2 TAB Q 6 HRS PRN NORCO 5-325 MG TABS 426755 HYDROCODONE-ACETAMINOPHEN Inactive PHENYTOIN 50 MG CHEW 1 TAB PO BID PHENYTOIN 50 MG CHEW 8090116 PHENYTOIN Inactive FENTANYL 12 MCG/HR PT72 Apply to clean, dry skin and change every 72 hours FENTANYL 12 MCG/HR PT72 274751 FENTANYL Inactive FENTANYL 25 MCG/HR PT72 Apply to clean skin and change every 72 hours. 07/03 FENTANYL 25 MCG/HR PT72 709661 FENTANYL Inactive Advance Directives Directive Description Start [...] mmol/L Encounters Code Encounter Date Provider Facility CPT-58942 Level 3 Est. Patient 19:05:03 CDT Jonel Hemphill MD [facility]-14070 Level 3 Est. Patient 17:30:47 CDT Kevin Link MD [facility]-10719 Level 3 Est. Patient 18:04:07 CDT Jonel Hemphill MD [facility] CPT-16672 Level 3 Est. Patient 17:18:03 CDT Jonel Hemphill MD [facility]-37683 Level 3 Est. Patient 21:58:03 ANCILLARY SERVICES MANAGER Jonel Hemphill MD [facility] CPT-13943 Level 4 Est. Patient 18:03:14 CDT Jonel Yeager [facility]-72302 Level 4 Est. Patient 13:24:53 CDT Jonel Yeager [facility]68368 Level 4 Est. Patient 09:15:44 CDT Jonel Yeager [facility]-34872 Level 4 Est. Patient 19:16:01 CDT [facility]-55760 Level 4 Est. Patient 11:25:16 CDT Jonel Hemphill MD [facility] CPT-32268 Level 4 Est. Patient 09:00:40 CDT [facility]-93065 Level 4 Est. Patient 14:53:58 CDT Jonel Hemphill MD [facility] CPT-00392 Level 4 Est. Patient 22:59:01 CDT Jonel Hemphill MD [facility]-02442 Level 4 Est. Patient 09:29:57 CDT Jonel Hemphill MD [facility]-34301 Level 4 Est. Patient 12:35:53 ANCILLARY SERVICES MANAGER Jonel Hemphill MD [facility]-19361 Level 4 Est. Patient 22:36:09 ANCILLARY SERVICES MANAGER Jonel Hemphill MD [facility]-87966 Level 2 Est. Patient 15:14:15 ANCILLARY SERVICES MANAGER Mayco Shah APRN [facility]-45588 Level 4 Est. Patient 10:36:22 ANCILLARY SERVICES MANAGER Jonel Hemphill MD [facility] CPT-90813 Level 4 Est. Patient 22:01:13 ANCILLARY SERVICES MANAGER Jonel Hemphill MD [facility]-82403 Level 3 Est. Patient 21:50:37 ANCILLARY SERVICES MANAGER Jonel Hemphill MD [facility] CPT-95157 Level 4 Est. Patient 15:02:43 CDT Rubin Pierre MD [facility]-62988 Level 4 Est. Patient 14:27:35 CDT Jonel Hemphill MD [facility]-92744 Level 4 Est. Patient 12:41:17 CDT Jonel Hemphill MD [facility]-72033 Level 4 Est. Patient 16:18:55 CDT Jonel Hemphill MD [facility] CPT-06202 Level 4 Est. Patient 17:58:05 CDT Jonel Hemphill MD [facility] CPT-03530 Level 4 Est. Patient 22:10:06 CDT Jonel Hemphill MD [facility] CPT-94984 Level 4 Est. Patient 13:22:09 CDT Jonel Hemphill MD [facility] CPT-19953 Level 4 Est. Patient 22:52:17 ANCILLARY SERVICES MANAGER Jonel Hemphill MD [facility] CPT-78667 Level 3 Est. Patient 22:34:10 ANCILLARY SERVICES MANAGER Jonel Hemphill MD [facility] CPT-21248 Level 4 Est. Patient 07:49:20 ANCILLARY SERVICES MANAGER Jonel Hemphill MD [facility] Skilled CPT-87352 Level 3 Est. Patient 08:28:27 ANCILLARY SERVICES MANAGER Jonel Hemphill MD [facility] Procedures Code Procedure Name Date Entry Date Standard Description CPT-38839 Level 3 Penitentiary 15:38:24 CDT CPT-20994 Level 3 Penitentiary 08:18:30 CDT CPT-82353 Level 3 Penitentiary 19:03:14 CDT CPT-84024 Level 3 Penitentiary 17:42:11 CDT CPT-31025 Level 3 Penitentiary 16:04:10 CDT CPT-88067 Level 3 Penitentiary 19:38:15 ANCILLARY SERVICES MANAGER CPT-30959 Level 3 Penitentiary 19:28:48 ANCILLARY SERVICES MANAGER CPT-58555 Level 3 Penitentiary 18:02:20 ANCILLARY SERVICES MANAGER CPT-35531 Level 3 Penitentiary 15:02:14 ANCILLARY SERVICES MANAGER CPT-52515 Level 3 Penitentiary 12:25:37 CDT CPT-59202 Level 3 Penitentiary 12:48:39 CDT CPT-39421 Level 3 Penitentiary 17:39:14 CDT CPT-46146 Level 3 Penitentiary 13:32:58 CDT CPT-69820 Level 3 Penitentiary 17:43:43 CDT CPT-57220 Level 3 Penitentiary 12:03:33 ANCILLARY SERVICES MANAGER CPT-60623 Level 3 Penitentiary 18:47:28 ANCILLARY SERVICES MANAGER CPT-16012 Level 3 Penitentiary 17:35:26 ANCILLARY SERVICES MANAGER CPT-89392 Level 3 Penitentiary 18:44:49 ANCILLARY SERVICES MANAGER CPT-06095 Level 3 Penitentiary 18:17:33 CDT CPT-79807 Level 3 Penitentiary 09:25:33 CDT CPT-88526 Level 3 Penitentiary 19:11:57 CDT CPT-41769 Level 3 Penitentiary 09:25:52 CDT CPT-88088 Level 3 Penitentiary 14:23:59 CDT CPT-63006 Level 3 Penitentiary 12:09:43 CDT CPT-77204 Level 3 Penitentiary 09:37:40 CDT CPT-61731 Level 3 Penitentiary 18:23:02 CDT CPT-24650 Level 3 Penitentiary 14:09:06 CDT CPT-14515 Level 3 Penitentiary 12:43:27 ANCILLARY SERVICES MANAGER CPT-23864 Postop F/U Visit 14:10:15 ANCILLARY SERVICES MANAGER CPT-74648 [facility] 17:07:14 ANCILLARY SERVICES MANAGER CPT-83587 Level 3 Penitentiary 16:14:37 ANCILLARY SERVICES MANAGER CPT-28858 Port a cath flush 11:47:42 CDT CPT-40006 Port a cath flush 08:29:49 CDT CPT-OV Office Visit 14:27:58 ANCILLARY SERVICES MANAGER
--- OUTSIDE RECORDS SUMMARY | 2016-08-07 12:20 | XMS REPORT | Clinical Summary ---
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 FEBUXOSTAT 40952364972 Active Marleni Romero Active HYDROCODONE-ACETAMINOPHEN 7.5-325 MG TABS 1 TAB PO Q 6 HRS PRN HYDROCODONE-ACETAMINOPHEN 61488758481 Active Jonel Hemphill MD Active METFORMIN HCL 1000 MG TABS 1 tablet by mouth twice daily METFORMIN HCL 54693404468 Active Marleni Romero Active FENTANYL 12 MCG/HR PT72 Apply to clean, dry skin and change every 72 hours FENTANYL 04555071801 Active Mattie Gates APRN Active KLOR-CON 20 MEQ ORAL PACK 1 BY MOUTH DAILY POTASSIUM CHLORIDE 81067237782 Active Marleni Romero Active A+D FIRST AID EXT OINT APPLY OINTMENT AND RUFINO WRAPS TO LOWER EXTEREMETIES DAILY SKIN PROTECTANTS, MISC. 32205644385 Active Jonel Hemphill MD Active NYSTATIN 677859 UNIT/GM EXT OINT APPLY PRN TID TO GAULDING/RASH IN ABDOMINAL FOLDS NYSTATIN 51481737656 Active Jonel Hemphill MD Active ATIVAN 0.5 MG TABS Take 1 tablet 2x daily PRN LORAZEPAM 24297004761 Active Jonel Hemphill MD Active GABAPENTIN 400 MG ORAL CAPS 1 TAB BY MOUTH THREE TIMES DAILY GABAPENTIN 98524725470 Active Jonel Hemphill MD Active GABAPENTIN 300 MG CAPS 1 CAP PO TID GABAPENTIN 05670550202 No Longer Active Jonel Hemphill MD Active DILANTIN 100 MG ORAL CAPS 1 THREE TIMES DAILY FOR SEIZURES PHENYTOIN SODIUM EXTENDED 35320141566 Active Marleni Romero Active CPAP APPLY AT HS CPAP Active Jonel Hemphill MD Active METOPROLOL TARTRATE 50 MG ORAL TABS 1 TAB BY MOUTH TWICE DAILY METOPROLOL TARTRATE 34797695760 Active Jonel Hemphill MD Active LISINOPRIL 40 MG TABS 1 tablet by mouth twice daily, for blood pressure 03/31 LISINOPRIL 69206341261 Active Jonel Hemphill MD Active BUPROPION HCL ER (SR) 150 MG [id number] 1 twice a day for depression BUPROPION HCL 20955031595 Active Jonel Hemphill MD Active MULTIVITAMINS CAPS 1 DAILY MULTIPLE VITAMIN 25256751271 Active Jonel Hemphill MD Active ZYLOPRIM 300 MG TAB 1 BY MOUTH DAILY ALLOPURINOL 39818694979 Active Jonel Hemphill MD Active HYDROCODONE-ACETAMINOPHEN 7.5-325 MG TABS 1 q 6 hrs prn HYDROCODONE-ACETAMINOPHEN 54293338742 No Longer Active Jonel Hemphill MD Active DILANTIN 100 MG CAPS 3 cap tid PHENYTOIN SODIUM EXTENDED 96038768848 No Longer Active Jonel Hemphill MD Active BUDEPRION SR 150 MG [id number] 1 bid BUPROPION HCL 62953315720 No Longer Active Jonel Hemphill MD Active ALLOPURINOL 300 MG TABS 1 qd ALLOPURINOL 46227852143 No Longer Active Jonel Hemphill MD Active COZAAR 100 MG TABS 1 qd LOSARTAN POTASSIUM 60832995393 No Longer Active Jonel Hemphill MD Active CVS VITAMIN C 500 MG TABS 1 po daily ASCORBIC ACID 47573692753 No Longer Active Jonel Hemphill MD Active MIRALAX POWD 17 gms in 4 oz water or juice daily POLYETHYLENE GLYCOL 3350 70651280078 No Longer Active Jonel Hemphill MD Active POTASSIUM CHLORIDE CHELA ER 20 MEQ CR-TABS 1 tab PO daily POTASSIUM CHLORIDE CHELA CR 93636339533 No Longer Active Jonel Hemphill MD Active AMBIEN 10 MG TAB 1 tab by mouth at bedtime as needed for sleep ZOLPIDEM TARTRATE 25927556010 No Longer Active Jonel Hemphill MD Active SULFAMETHOXAZOLE-TMP DS 800-160 MG TABS 1 TAB PO BID SULFAMETHOXAZOLE-TRIMETHOPRIM 54270032447 No Longer Active Jonel Hemphill MD Active NORCO 5-325 MG TABS 1-2 TAB Q 6 HRS PRN HYDROCODONE- ACETAMINOPHEN 36583639555 Active Jonel Hemphill MD Active LEVEMIR 100 UNIT/ML SOLN 5 units sub-q at bedtime INSULIN DETEMIR 28211190838 No Longer Active Tova Perez Active MOBIC 15 MG TABS 1 tab PO daily for arthritis pain MELOXICAM 46525158129 No Longer Active Tova Perez Active GLUCAGEN 1 MG SOLR INJECT 1MG IM IF BS LESS THAN 60 & RES. IS UNABLE TO SWALLOW GLUCAGON HCL (RDNA) 85442158199 No Longer Active Tova Perez Active CVS MILK OF MAGNESIA 1200 MG/15ML SUSP 30 ml daily for constipation MAGNESIUM HYDROXIDE 83684595595 No Longer Active Tova Perez Active IMDUR 120 MG [id number] 1 qd ISOSORBIDE MONONITRATE 72370229103 No Longer Active Tova Perez Active PHENYTOIN 50 MG CHEW 1 TAB PO BID PHENYTOIN 42945965659 Active Tova Perez Active MECLIZINE HCL 25 MG CHEW TAB 1 four times a day as needed for dizziness 02/21 MECLIZINE HCL 95985502317 Active Tova Perez Active NEURONTIN 400 MG CAPS Take one by mouth 3 times daily, morning, afternoon and evening.] GABAPENTIN 14106238392 No Longer Active Tova Perez Active ANTIVERT 25 MG TABS 1 q 6 hrs prn MECLIZINE HCL 64328382674 No Longer Active Jonel Hemphill MD Active CLONIDINE HCL 0.2 MG TABS 1 q 8 hrs as needed -greater than 160-htn CLONIDINE HCL 67926500746 No Longer Active Jonel Hemphill MD Active AMBIEN 10 MG TABS 1 q hs prn ZOLPIDEM TARTRATE 42227968159 No Longer Active Jonel Hemphill MD Active GNP THERAPEUTIC-M TABS 1 qd MULTIPLE VITAMINS- MINERALS 48282273697 No Longer Active Jonel Hemphill MD Active METOPROLOL TARTRATE 50 MG TABS 1 bid METOPROLOL TARTRATE 10400764117 No Longer Active Jonel Hemphill MD Active METFORMIN HCL 500 MG TABS 1 bod with food METFORMIN HCL 31196448806 No Longer Active Jonel Hemphill MD Active LISINOPRIL 40 MG TABS 1 qd LISINOPRIL 30428444757 No Longer Active Jonel Hemphill MD Active HYDROCHLOROTHIAZIDE 25 MG TABS 1 qd HYDROCHLOROTHIAZIDE 83534604271 No Longer Active Jonel Hemphill MD Active DURAGESIC-25 25 MCG/HR PT72 place 1 patch on the skin q72hrs for pain FENTANYL 15128707419 No Longer Active Jonel Hemphill MD Active FENTANYL 75 MCG/HR PT72 place 1 patch on skin q72hrs fr pain 2012 FENTANYL 27507490236 No Longer Active Jonel Hemphill MD Active LASIX 20 MG TABS 1 tab PO q morning FUROSEMIDE 46848815851 Active Jonel Hemphill MD Active FUROSEMIDE 40 MG TABS 1 q am FUROSEMIDE 57953913102 No Longer Active Jonel Hemphill MD Active HEPARIN (PORCINE) LOCK FLUSH 100 UNIT/ML SOLN Flush port a cath monthly every three week on with Heparin and NS HEPARIN LOCK FLUSH 02313096653 Active Jonel Hemphill MD Active FENTANYL 100 MCG/HR PT72 Apply every 3 days FENTANYL 85310518610 Active Jonel Hemphill MD Active FENTANYL 25 MCG/HR PT72 Apply to clean skin and change every 72 hours. 07/03 FENTANYL 05256029735 No Longer Active Jonel Hemphill MD Active FENTANYL 50 MCG/HR PT72 place 1 patch on skin q72 hours FENTANYL 59505059874 No Longer Active Mayco Shah APRN Active CELEXA 20 MG TABS Take 1 tablet 1x daily CITALOPRAM HYDROBROMIDE 38266746186 Active Jonel Hemphill MD Active DURAGESIC-12 12 MCG/HR PT72 APPLY PATCH TO SKIN AND CHANGE EVERY 72 HOURS, ROTATE SITES FENTANYL 15997416686 No Longer Active Fozia HERNANDEZ Active FUROSEMIDE 20 MG TABS 1 qd FUROSEMIDE 75046940901 No Longer Active Mahogany Bolivar Active ADULT ASPIRIN EC LOW STRENGTH 81 MG TBEC 1 qd ASPIRIN 47636463845 Active MARY Perez Active FUROSEMIDE 20 MG TABS 1 qd FUROSEMIDE 20 MG TABS 154617 FUROSEMIDE Inactive DURAGESIC-12 12 MCG/HR PT72 APPLY PATCH TO SKIN AND CHANGE EVERY 72 HOURS, ROTATE SITES DURAGESIC-12 12 MCG/HR PT72 203599 FENTANYL Inactive FENTANYL 50 MCG/HR PT72 place 1 patch on skin q72 hours FENTANYL 50 MCG/HR PT72 972349 FENTANYL Inactive FUROSEMIDE 40 MG TABS 1 q am FUROSEMIDE 40 MG TABS 742787 FUROSEMIDE Inactive FENTANYL 75 MCG/HR PT72 place 1 patch on skin q72hrs fr pain 2012 FENTANYL 75 MCG/HR PT72 293590 FENTANYL Inactive DURAGESIC-25 25 MCG/HR PT72 place 1 patch on the skin q72hrs for pain DURAGESIC-25 25 MCG/HR PT72 891220 FENTANYL Inactive HYDROCHLOROTHIAZIDE 25 MG TABS 1 qd HYDROCHLOROTHIAZIDE 25 MG TABS 339751 HYDROCHLOROTHIAZIDE Inactive LISINOPRIL 40 MG TABS 1 qd LISINOPRIL 40 MG TABS 455265 LISINOPRIL Inactive METFORMIN HCL 500 MG TABS 1 bod with food METFORMIN HCL 500 MG TABS 152314 METFORMIN HCL Inactive METOPROLOL TARTRATE 50 MG TABS 1 bid METOPROLOL TARTRATE 50 MG TABS 360422 METOPROLOL TARTRATE Inactive GNP THERAPEUTIC-M TABS 1 qd GNP THERAPEUTIC-M TABS MULTIPLE VITAMINS-MINERALS Inactive AMBIEN 10 MG TABS 1 q hs prn AMBIEN 10 MG TABS 926940 ZOLPIDEM TARTRATE Inactive CLONIDINE HCL 0.2 MG TABS 1 q 8 hrs as needed -greater than 160-htn CLONIDINE HCL 0.2 MG TABS 580215 CLONIDINE HCL Inactive ANTIVERT 25 MG TABS 1 q 6 hrs prn ANTIVERT 25 MG TABS MECLIZINE HCL Inactive NEURONTIN 400 MG CAPS Take one by mouth 3 times daily, morning, afternoon and evening.] NEURONTIN 400 MG CAPS 270646 GABAPENTIN Inactive IMDUR 120 MG [id number] 1 qd IMDUR 120 MG [id number] ISOSORBIDE MONONITRATE Inactive CVS MILK OF MAGNESIA [...] for arthritis pain MOBIC 15 MG TABS 389296 MELOXICAM Inactive LEVEMIR 100 UNIT/ML SOLN 5 units sub-q at bedtime LEVEMIR 100 UNIT/ML SOLN INSULIN DETEMIR Inactive SULFAMETHOXAZOLE-TMP DS 800-160 MG TABS 1 TAB PO BID SULFAMETHOXAZOLE-TMP DS 800-160 MG TABS 078089 SULFAMETHOXAZOLE-TRIMETHOPRIM Inactive AMBIEN 10 MG TAB 1 tab by mouth at bedtime as needed for sleep AMBIEN 10 MG TAB 335201 ZOLPIDEM TARTRATE Inactive POTASSIUM CHLORIDE CHELA ER 20 MEQ CR-TABS 1 tab PO daily POTASSIUM CHLORIDE CHELA ER 20 MEQ CR-TABS POTASSIUM CHLORIDE CHELA CR Inactive MIRALAX POWD 17 gms in 4 oz water or juice daily MIRALAX POWD 698449 POLYETHYLENE GLYCOL 3350 Inactive CVS VITAMIN C 500 MG TABS 1 po daily CVS VITAMIN C 500 MG TABS 591369 ASCORBIC ACID Inactive COZAAR 100 MG TABS 1 qd COZAAR 100 MG TABS 113113 LOSARTAN POTASSIUM Inactive ALLOPURINOL 300 MG TABS 1 qd ALLOPURINOL 300 MG TABS 193353 ALLOPURINOL Inactive BUDEPRION SR 150 MG [id number] 1 bid BUDEPRION SR 150 MG [id number] BUPROPION HCL Inactive DILANTIN 100 MG CAPS 3 cap tid DILANTIN 100 MG CAPS 731926 PHENYTOIN SODIUM EXTENDED Inactive HYDROCODONE-ACETAMINOPHEN 7.5-325 MG TABS 1 q 6 hrs prn HYDROCODONE-ACETAMINOPHEN 7.5-325 MG TABS 391257 HYDROCODONE- ACETAMINOPHEN Inactive GABAPENTIN 300 MG CAPS 1 CAP PO TID GABAPENTIN 300 MG CAPS 577539 GABAPENTIN Inactive FENTANYL 25 MCG/HR PT72 Apply to clean skin and change every 72 hours. 07/03 FENTANYL 25 MCG/HR PT72 886361 FENTANYL Inactive Advance Directives Directive Description Start [...] flowsheet - Chemistry alanine aminotransferase (SGPT), serum 42 U/L alkaline phosphatase, serum 60 U/L hemoglobin A1C, blood, as % of total hemoglobin 7.2 % aspartate aminotransferase (SGOT), serum 33 U/L creatinine, serum 0.85 mg/dL blood glucose 187 mg/dL potassium, serum 4.6 mmol/L sodium, serum 144 mmol/L creatinine, serum 0.19 mg/dL aspartate aminotransferase (SGOT), serum 13 U/L alanine aminotransferase (SGPT), serum 13 U/L alkaline phosphatase, serum 51 U/L sodium, serum 143 mmol/L potassium, serum 3.9 mmol/L blood glucose 147 mg/dL Chart Maintenance: Outside labs entered on flowsheet - Hematology hemoglobin, blood 14.4 g/dL platelet count 113 10*3/mm3 leukocyte count, blood 6.9 10*3/mm3 Lab Report: HGBA1C - Chemistry hemoglobin A1C, blood, as % of total hemoglobin 6.8 % 4.3-6.0 Encounters Code Encounter Date Provider Facility CPT-34085 Level 3 Est. Patient 18:04:07 CDT Jonel Hemphill MD [facility] CPT-17328 Level 3 Est. Patient 17:18:03 CDT Jonel Hemphill MD [facility] CPT-23139 Level 3 Est. Patient 21:58:03 WATCH REPAIR PERSON Jonel Hemphill MD [facility] CPT-36658 Level 4 Est. Patient 18:03:14 CDT Jonel Hemphill MD [facility]-09210 Level 4 Est. Patient 13:24:53 CDT Jonel Hemphill MD [facility]-53017 Level 4 Est. Patient 09:15:44 CDT Jonel Hemphill MD [facility]-65408 Level 4 Est. Patient 19:16:01 CDT Jonel Hemphill MD [facility]-12669 Level 4 Est. Patient 11:25:16 CDT Jonel Hemphill MD [facility]-17508 Level 4 Est. Patient 09:00:40 CDT Jonel Hemphill MD [facility]-51228 Level 4 Est. Patient 14:53:58 CDT Jonel Hemphill MD [facility] CPT-30020 Level 4 Est. Patient 22:59:01 CDT Jonel Hemphill MD [facility]-35076 Level 4 Est. Patient 09:29:57 CDT Jonel Hemphill MD [facility]-44411 Level 4 Est. Patient 12:35:53 WATCH REPAIR PERSON Jonel Hemphill MD [facility]-35183 Level 4 Est. Patient 22:36:09 WATCH REPAIR PERSON Jonel Hemphill MD [facility]-58932 Level 2 Est. Patient 15:14:15 WATCH REPAIR PERSON Mayco Shah APRN [facility] CPT-15196 Level 4 Est. Patient 10:36:22 WATCH REPAIR PERSON Jonel Hemphill MD [facility] CPT-75683 Level 4 Est. Patient 22:01:13 WATCH REPAIR PERSON Jonel Hemphill MD [facility]-78465 Level 3 Est. Patient 21:50:37 WATCH REPAIR PERSON Jonel Hemphill MD [facility] CPT-95486 Level 4 Est. Patient 15:02:43 CDT Rubin Pierre MD [facility] CPT-63521 Level 4 Est. Patient 14:27:35 CDT Jonel Hemphill MD [facility]-02018 Level 4 Est. Patient 12:41:17 CDT Jonel Hemphill MD [facility]-35632 Level 4 Est. Patient 16:18:55 CDT Jonel Hemphill MD [facility]-24452 Level 4 Est. Patient 17:58:05 CDT Jonel Hemphill MD [facility]-63122 Level 4 Est. Patient 22:10:06 CDT Jonel Hemphill MD [facility]-45181 Level 4 Est. Patient 13:22:09 CDT Jonel Hemphill MD [facility]-99000 Level 4 Est. Patient 22:52:17 WATCH REPAIR PERSON Jonel Hemphill MD [facility] CPT-45669 Level 3 Est. Patient 22:34:10 WATCH REPAIR PERSON Jonel Hemphill MD [facility]-18777 Level 4 Est. Patient 07:49:20 WATCH REPAIR PERSON Jonel Hemphill MD [facility] CPT-02399 Level 3 Est. Patient 08:28:27 WATCH REPAIR PERSON Jonel Hemphill MD [facility] Procedures Code Procedure Name Date Entry Date Standard Description CPT-11093 Level 3 Fdc 17:42:11 CDT CPT-23868 Level 3 Fdc 16:04:10 CDT CPT-21986 Level 3 Fdc 19:38:15 WATCH REPAIR PERSON CPT-05056 Level 3 Fdc 19:28:48 WATCH REPAIR PERSON CPT-50718 Level 3 Fdc 18:02:20 WATCH REPAIR PERSON CPT-39925 Level 3 Fdc 15:02:14 WATCH REPAIR PERSON CPT-07024 Level 3 Fdc 12:25:37 CDT CPT-38771 Level 3 Fdc 12:48:39 CDT CPT-16416 Level 3 Fdc 17:39:14 CDT CPT-03710 Level 3 Fdc 13:32:58 CDT CPT-99744 Level 3 Fdc 17:43:43 CDT CPT-07287 Level 3 Fdc 12:03:33 WATCH REPAIR PERSON CPT-67207 Level 3 Fdc 18:47:28 WATCH REPAIR PERSON CPT-00602 Level 3 Fdc 17:35:26 WATCH REPAIR PERSON CPT-11645 Level 3 Fdc 18:44:49 WATCH REPAIR PERSON CPT-35548 Level 3 Fdc 18:17:33 CDT CPT-99081 Level 3 Fdc 09:25:33 CDT CPT-14326 Level 3 Fdc 19:11:57 CDT CPT-05835 Level 3 Fdc 09:25:52 CDT CPT-45591 Level 3 Fdc 14:23:59 CDT CPT-12897 Level 3 Fdc 12:09:43 CDT CPT-44229 Level 3 Fdc 09:37:40 CDT CPT-15403 Level 3 Fdc 18:23:02 CDT CPT-01082 Level 3 Fdc 14:09:06 CDT CPT-50221 Level 3 Fdc 12:43:27 WATCH REPAIR PERSON CPT-37105 Postop F/U Visit 14:10:15 WATCH REPAIR PERSON CPT-38179 [facility] 17:07:14 WATCH REPAIR PERSON CPT-60658 Level 3 Fdc 16:14:37 WATCH REPAIR PERSON CPT-00735 Port a cath flush 11:47:42 CDT CPT-10485 Port a cath flush 08:29:49 CDT CPT-OV Office Visit 14:27:58 WATCH REPAIR PERSON
--- OUTSIDE RECORDS SUMMARY | 2016-08-07 12:20 | XMS REPORT ---
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
--- OUTSIDE RECORDS SUMMARY | 2016-08-07 12:22 | XMS REPORT | Clinical Summary ---
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 Jonel Hemphill MD Long-term [...] Coronary atherosclerosis of unspecified type of vessel, nondalton or graft FH DIABETES V18.0 Resolved Jonel [...] Coronary atherosclerosis of unspecified type of vessel, nondalton or graft CONSTIPATION 564.00 Resolved Jonel Hemphill [...] MD Hypopotassemia LOOSE STOOLS 787.91 Resolved Jonel Hemphlil MD Diarrhea GOUT 274.9 Active Darian Kitchen [...] Hemphill MD Spasm of muscle 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 USE, PRISON ICD-V58.69 Inactive Jonel Hemphill MD DIABETES, TYPE [...] Chest wall pain, acute ICD-786.52 Inactive Jonel eHmphill MD Medication List Medication Instructions Start Date Stop Date Generic Name NDC Status Provider Patient Instruction FENTANYL 12 MCG/HR PT72 Apply to clean, dry skin and change every 72 hours FENTANYL 25708069531 Active Jonel Hemphill MD Active MIRALAX POWD 17 gms in 4 oz water or juice daily POLYETHYLENE GLYCOL 3350 60460147814 Active Jonel Hemphill MD Active CVS MELATONIN 3 MG ORAL TABS 2 tabs at hs MELATONIN 83528441441 Active Jonel Hemphill MD Active MAGNESIUM GLUCONATE 500 MG ORAL TABS 1 tab twice daily MAGNESIUM GLUCONATE 88034456581 Active Jonel Hemphill MD Active OMEPRAZOLE 20 MG CPDR 1 tablet by mouth daily OMEPRAZOLE 18108507313 Active Jonel Hemphill MD Active DIGOXIN 125 MCG ORAL TABS 1 daily DIGOXIN 44358537694 Active Jonel Hemphill MD Active DILTIAZEM CD 240 MG ORAL [id number] 1 daily DILTIAZEM HCL COATED BEADS 86582864038 Active Jonel Hemphill MD Active NOVOLOG 100 UNIT/ML SC SOLN 70-140=0U 141-180=2 U 181-220=4U 221-260=6U 261- 300=8U 301-340=10U 766=173=12E 381-400=14U INSULIN ASPART 15547415464 Active Jonel Hemphill MD Active ACETAMINOPHEN 325 MG ORAL TABS 1 tab by mouth every 4 hours as needed ACETAMINOPHEN 91587430029 Active Jonel Hemphill MD Active FENTANYL 12 MCG/HR PT72 Apply to clean, dry skin and change every 72 hours FENTANYL 86865310422 No Longer Active Jonel Hemphill MD Active PHENYTOIN 50 MG CHEW 1 TAB PO BID PHENYTOIN 55385582072 No Longer Active Jonel Hemphill MD Active NORCO 5-325 MG TABS 1-2 TAB Q 6 HRS PRN HYDROCODONE- ACETAMINOPHEN 06114379585 No Longer Active Jonel Hemphill MD Active MULTIVITAMINS CAPS 1 DAILY MULTIPLE VITAMIN 51736972246 No Longer Active Jonel Hemphill MD Active BUPROPION HCL ER (SR) 150 MG [id number]-MZH 1 twice a day for depression BUPROPION HCL 01708104030 No Longer Active Jonel Hemphill MD Active LISINOPRIL 20 MG TABS 1 tablet by mouth daily LISINOPRIL 96617925372 Active Jonel Hemphill MD Active ULORIC 40 MG ORAL TABS 1 daily for gout. FEBUXOSTAT 98281468531 No Longer Active Jonel Hemphill MD Active CELEXA 20 MG TABS 1 tablet by mouth daily CITALOPRAM HYDROBROMIDE 92601140530 Active Marleni Raida Active ZOFRAN 4 MG TABS 1 po q6hr PRN Nausea ONDANSETRON HCL 19576597391 Active Jonel Hemphill MD Active XARELTO 20 MG ORAL TABS 1 daily RIVAROXABAN 65216974154 Active Jonel Hemphill MD Active JANUVIA 100 MG ORAL TABS 2 tabs daily SITAGLIPTIN PHOSPHATE 75770251100 Active Jonel Hemphill MD Active CELEXA 20 MG TABS Take 1 tablet 1x daily CITALOPRAM HYDROBROMIDE 63145371150 No Longer Active Jonel Hemphill MD Active ATIVAN 0.5 MG TABS Take 1 tablet 2x daily PRN LORAZEPAM 80248648706 No Longer Active Jonel Hemphill MD Active FUROSEMIDE 80 MG ORAL TABS 1 daily FUROSEMIDE 54277741214 Active Jonel Hemphill MD Active MECLIZINE HCL 25 MG CHEW TAB 1 four times a day as needed for dizziness 02/21 MECLIZINE HCL 70059010454 No Longer Active Jonel Hemphill MD Active ZYLOPRIM 300 MG TAB 1 BY MOUTH DAILY ALLOPURINOL 28267230587 No Longer Active Jonel Hemphill MD Active METOPROLOL TARTRATE 50 MG ORAL TABS 1 TAB BY MOUTH TWICE DAILY METOPROLOL TARTRATE 79538934777 No Longer Active Jonel Hemphill MD Active GABAPENTIN 400 MG ORAL CAPS 1 TAB BY MOUTH THREE TIMES DAILY 2015 GABAPENTIN 28768894525 No Longer Active Jonel Hemphill MD Active HYDROCODONE-ACETAMINOPHEN 7.5-325 MG TABS 1 TAB PO Q 6 HRS PRN HYDROCODONE-ACETAMINOPHEN 39983733777 Active Jonel Hemphill MD Active METFORMIN HCL 1000 MG TABS 1 tablet by mouth twice daily METFORMIN HCL 95060477253 Active Marleni Romero Active KLOR-CON 20 MEQ ORAL PACK 1 BY MOUTH DAILY POTASSIUM CHLORIDE 64195094718 Active Marleni Romero Active A+D FIRST AID EXT OINT APPLY OINTMENT AND RUFINO WRAPS TO LOWER EXTEREMETIES DAILY SKIN PROTECTANTS, MISC. 44180308118 Active Jonel Hemphill MD Active NYSTATIN 477301 UNIT/GM EXT OINT APPLY PRN TID TO GAULDING/RASH IN ABDOMINAL FOLDS NYSTATIN 74669347111 Active Jonel Hemphill MD Active GABAPENTIN 300 MG CAPS 1 CAP PO TID GABAPENTIN 54177567257 No Longer Active Jonel Hemphill MD Active DILANTIN 100 MG ORAL CAPS 1 THREE TIMES DAILY FOR SEIZURES PHENYTOIN SODIUM EXTENDED 76522793768 Active Marleni Romero Active CPAP APPLY AT HS CPAP Active Jonel Hemphill MD Active HYDROCODONE-ACETAMINOPHEN 7.5-325 MG TABS 1 q 6 hrs prn HYDROCODONE-ACETAMINOPHEN 58419918596 No Longer Active Jonel Hemphill MD Active DILANTIN 100 MG CAPS 3 cap tid PHENYTOIN SODIUM EXTENDED 01203021610 No Longer Active Jonel Hemphill MD Active BUDEPRION SR 150 MG [id number] 1 bid BUPROPION HCL 06602976863 No Longer Active Jonel Hemphill MD Active ALLOPURINOL 300 MG TABS 1 qd ALLOPURINOL 55737532884 No Longer Active Jonel Hemphill MD Active COZAAR 100 MG TABS 1 qd LOSARTAN POTASSIUM 83378111975 No Longer Active Jonel Hemphill MD Active CVS VITAMIN C 500 MG TABS 1 po daily ASCORBIC ACID 87861761435 No Longer Active Jonel Hemphill MD Active MIRALAX POWD 17 gms in 4 oz water or juice daily POLYETHYLENE GLYCOL 3350 44832674895 No Longer Active Jonel Hemphill MD Active POTASSIUM CHLORIDE CHELA ER 20 MEQ CR-TABS 1 tab PO daily POTASSIUM CHLORIDE CHELA CR 94109807512 No Longer Active Jonel Hemphill MD Active AMBIEN 10 MG TAB 1 tab by mouth at bedtime as needed for sleep ZOLPIDEM TARTRATE 23303781601 No Longer Active Jonel Hemphill MD Active SULFAMETHOXAZOLE-TMP DS 800-160 MG TABS 1 TAB PO BID SULFAMETHOXAZOLE-TRIMETHOPRIM 01362715310 No Longer Active Jonel Hemphill MD Active LEVEMIR 100 UNIT/ML SOLN 5 units sub-q at bedtime INSULIN DETEMIR 33030264338 No Longer Active Tova Perez Active MOBIC 15 MG TABS 1 tab PO daily for arthritis pain MELOXICAM 59255698667 No Longer Active Tova Perez Active GLUCAGEN 1 MG SOLR INJECT 1MG IM IF BS LESS THAN 60 & RES. IS UNABLE TO SWALLOW GLUCAGON HCL (RDNA) 47893684043 No Longer Active Tova Perez Active CVS MILK OF MAGNESIA 1200 MG/15ML SUSP 30 ml daily for constipation MAGNESIUM HYDROXIDE 30590611567 No Longer Active Tova Perez Active IMDUR 120 MG SA25X-IOD 1 qd ISOSORBIDE MONONITRATE 10155537572 No Longer Active Tova Perez Active NEURONTIN 400 MG CAPS Take one by mouth 3 times daily, morning, afternoon and evening.] GABAPENTIN 09162318497 No Longer Active Tova Perez Active ANTIVERT 25 MG TABS 1 q 6 hrs prn MECLIZINE HCL 07427129224 No Longer Active Jonel Hemphill MD Active CLONIDINE HCL 0.2 MG TABS 1 q 8 hrs as needed -greater than 160-htn CLONIDINE HCL 45775984057 No Longer Active Jonel Hemphill MD Active AMBIEN 10 MG TABS 1 q hs prn ZOLPIDEM TARTRATE 00668542463 No Longer Active Jonel Hemphill MD Active GNP THERAPEUTIC-M TABS 1 qd MULTIPLE VITAMINS- MINERALS 33858170594 No Longer Active Jonel Hemphill MD Active METOPROLOL TARTRATE 50 MG TABS 1 bid METOPROLOL TARTRATE 40834539768 No Longer Active oJnel Hemphill MD Active METFORMIN HCL 500 MG TABS 1 bod with food METFORMIN HCL 65066442878 No Longer Active Jonel Hemphill MD Active LISINOPRIL 40 MG TABS 1 qd LISINOPRIL 93765910549 No Longer Active Jonel Hemphill MD Active HYDROCHLOROTHIAZIDE 25 MG TABS 1 qd HYDROCHLOROTHIAZIDE 66530382263 No Longer Active Jonel Hemphill MD Active DURAGESIC-25 25 MCG/HR PT72 place 1 patch on the skin q72hrs for pain FENTANYL 59587983097 No Longer Active Jonel Hemphill MD Active FENTANYL 75 MCG/HR PT72 place 1 patch on skin q72hrs fr pain 2012 FENTANYL 45771386352 No Longer Active Jonel Hemphill MD Active FUROSEMIDE 40 MG TABS 1 q am FUROSEMIDE 08876226968 No Longer Active Jonel Hemphill MD Active HEPARIN (PORCINE) LOCK FLUSH 100 UNIT/ML SOLN Flush port a cath monthly every three week on with Heparin and NS HEPARIN LOCK FLUSH 86868131236 Active Jonel Hemphill MD Active FENTANYL 100 MCG/HR PT72 Apply every 3 days FENTANYL 91719271885 Active Jonel Hemphill MD Active FENTANYL 25 MCG/HR PT72 Apply to clean skin and change every 72 hours. 07/03 FENTANYL 05705262861 No Longer Active Jonel Hemphill MD Active FENTANYL 50 MCG/HR PT72 place 1 patch on skin q72 hours FENTANYL 24205694595 No Longer Active Mayco Shah APRN Active DURAGESIC-12 12 MCG/HR PT72 APPLY PATCH TO SKIN AND CHANGE EVERY 72 HOURS, ROTATE SITES FENTANYL 01768465211 No Longer Active Fozia HERNANDEZ Active FUROSEMIDE 20 MG TABS 1 qd FUROSEMIDE 09355516396 No Longer Active Mahogany [place] Active ADULT ASPIRIN EC LOW STRENGTH 81 MG TBEC 1 qd ASPIRIN 46568141596 Active MARY Perez Active FUROSEMIDE 20 MG TABS 1 qd FUROSEMIDE 20 MG TABS 413589 FUROSEMIDE Inactive DURAGESIC-12 12 MCG/HR PT72 APPLY PATCH TO SKIN AND CHANGE EVERY 72 HOURS, ROTATE SITES DURAGESIC-12 12 MCG/HR PT72 475458 FENTANYL Inactive FENTANYL 50 MCG/HR PT72 place 1 patch on skin q72 hours FENTANYL 50 MCG/HR PT72 649544 FENTANYL Inactive FUROSEMIDE 40 MG TABS 1 q am FUROSEMIDE 40 MG TABS 101790 FUROSEMIDE Inactive FENTANYL 75 MCG/HR PT72 place 1 patch on skin q72hrs fr pain 2012 FENTANYL 75 MCG/HR PT72 847288 FENTANYL Inactive DURAGESIC-25 25 MCG/HR PT72 place 1 patch on the skin q72hrs for pain DURAGESIC-25 25 MCG/HR PT72 757000 FENTANYL Inactive HYDROCHLOROTHIAZIDE 25 MG TABS 1 qd HYDROCHLOROTHIAZIDE 25 MG TABS 590855 HYDROCHLOROTHIAZIDE Inactive LISINOPRIL 40 MG TABS 1 qd LISINOPRIL 40 MG TABS 962652 LISINOPRIL Inactive METFORMIN HCL 500 MG TABS 1 bod with food METFORMIN HCL 500 MG TABS 436878 METFORMIN HCL Inactive METOPROLOL TARTRATE 50 MG TABS 1 bid METOPROLOL TARTRATE 50 MG TABS 932883 METOPROLOL TARTRATE Inactive GNP THERAPEUTIC-M TABS 1 qd GNP THERAPEUTIC-M TABS MULTIPLE VITAMINS-MINERALS Inactive AMBIEN 10 MG TABS 1 q hs prn AMBIEN 10 MG TABS 918747 ZOLPIDEM TARTRATE Inactive CLONIDINE HCL 0.2 MG TABS 1 q 8 hrs as needed -greater than 160-htn CLONIDINE HCL 0.2 MG TABS 325976 CLONIDINE HCL Inactive ANTIVERT 25 MG TABS 1 q 6 hrs prn ANTIVERT 25 MG TABS MECLIZINE HCL Inactive NEURONTIN 400 MG CAPS Take one by mouth 3 times daily, morning, afternoon and evening.] NEURONTIN 400 MG CAPS 332879 GABAPENTIN Inactive IMDUR 120 MG [id number] 1 qd IMDUR 120 MG [id number]-SIL ISOSORBIDE MONONITRATE Inactive CVS MILK OF MAGNESIA [...] for arthritis pain MOBIC 15 MG TABS 598948 MELOXICAM Inactive LEVEMIR 100 UNIT/ML SOLN 5 units sub-q at bedtime LEVEMIR 100 UNIT/ML SOLN INSULIN DETEMIR Inactive SULFAMETHOXAZOLE-TMP DS 800-160 MG TABS 1 TAB PO BID SULFAMETHOXAZOLE-TMP DS 800-160 MG TABS 367042 SULFAMETHOXAZOLE-TRIMETHOPRIM Inactive AMBIEN 10 MG TAB 1 tab by mouth at bedtime as needed for sleep AMBIEN 10 MG TAB 439267 ZOLPIDEM TARTRATE Inactive POTASSIUM CHLORIDE CHELA ER 20 MEQ CR-TABS 1 tab PO daily POTASSIUM CHLORIDE CHELA ER 20 MEQ CR-TABS POTASSIUM CHLORIDE CHELA CR Inactive MIRALAX POWD 17 gms in 4 oz water or juice daily MIRALAX POWD 014289 POLYETHYLENE GLYCOL 3350 Inactive CVS VITAMIN C 500 MG TABS 1 po daily CVS VITAMIN C 500 MG TABS 178705 ASCORBIC ACID Inactive COZAAR 100 MG TABS 1 qd COZAAR 100 MG TABS 557619 LOSARTAN POTASSIUM Inactive ALLOPURINOL 300 MG TABS 1 qd ALLOPURINOL 300 MG TABS 790918 ALLOPURINOL Inactive BUDEPRION SR 150 MG [id number] 1 bid BUDEPRION SR 150 MG [id number]-PPW BUPROPION HCL Inactive DILANTIN 100 MG CAPS 3 cap tid DILANTIN 100 MG CAPS 757102 PHENYTOIN SODIUM EXTENDED Inactive HYDROCODONE-ACETAMINOPHEN 7.5-325 MG TABS 1 q 6 hrs prn HYDROCODONE-ACETAMINOPHEN 7.5-325 MG TABS 455513 HYDROCODONE- ACETAMINOPHEN Inactive GABAPENTIN 300 MG CAPS 1 CAP PO TID GABAPENTIN 300 MG CAPS 815759 GABAPENTIN Inactive GABAPENTIN 400 MG ORAL CAPS 1 TAB BY MOUTH THREE TIMES DAILY 2015 GABAPENTIN 400 MG ORAL CAPS 594371 GABAPENTIN Inactive METOPROLOL TARTRATE 50 MG ORAL TABS 1 TAB BY MOUTH TWICE DAILY METOPROLOL TARTRATE 50 MG ORAL TABS 546570 METOPROLOL TARTRATE Inactive ZYLOPRIM 300 MG TAB 1 BY MOUTH DAILY ZYLOPRIM 300 MG TAB 455561 ALLOPURINOL Inactive MECLIZINE HCL 25 MG CHEW TAB 1 four times a day as needed for dizziness 02/21 MECLIZINE HCL 25 MG CHEW TAB 643480 MECLIZINE HCL Inactive ATIVAN 0.5 MG TABS Take 1 tablet 2x daily PRN ATIVAN 0.5 MG TABS 121240 LORAZEPAM Inactive CELEXA 20 MG TABS Take 1 tablet 1x daily CELEXA 20 MG TABS 634063 CITALOPRAM HYDROBROMIDE Inactive ULORIC 40 MG ORAL TABS 1 daily for gout. ULORIC 40 MG ORAL TABS FEBUXOSTAT Inactive BUPROPION HCL ER (SR) 150 MG [id number]-MOQ 1 twice a day for depression BUPROPION HCL ER (SR) 150 MG JO75T-XJV BUPROPION HCL Inactive MULTIVITAMINS CAPS 1 DAILY MULTIVITAMINS CAPS MULTIPLE VITAMIN Inactive NORCO 5-325 MG TABS 1-2 TAB Q 6 HRS PRN NORCO 5-325 MG TABS 376693 HYDROCODONE-ACETAMINOPHEN Inactive PHENYTOIN 50 MG CHEW 1 TAB PO BID PHENYTOIN 50 MG CHEW 4488452 PHENYTOIN Inactive FENTANYL 12 MCG/HR PT72 Apply to clean, dry skin and change every 72 hours FENTANYL 12 MCG/HR PT72 516891 FENTANYL Inactive FENTANYL 25 MCG/HR PT72 Apply to clean skin and change every 72 hours. 2013/ 05/22 FENTANYL 25 MCG/HR PT72 283554 FENTANYL Inactive Advance Directives Directive Description Start [...] mg/dL Encounters Code Encounter Date Provider Facility CPT-61572 Level 4 Est. Patient 18:47:35 CATERING MANAGER Jonel Hemphill MD [facility] CPT-68050 Level 4 Est. Patient 10:04:48 CATERING MANAGER Jonel Hemphill MD [facility] CPT-91298 Level 3 Est. Patient 19:05:03 CDT Jonel Hemphill MD [facility] CPT-41822 Level 3 Est. Patient 17:30:47 CDT Kevin Link MD [facility] CPT-17931 Level 3 Est. Patient 18:04:07 CDT Jonel Hemphill MD [facility] CPT-43719 Level 3 Est. Patient 17:18:03 CDT Jonel Hemphill MD [facility] CPT-83790 Level 3 Est. Patient 21:58:03 CATERING MANAGER Jonel Hemphill MD [facility] CPT-53698 Level 4 Est. Patient 18:03:14 CDT Jonel Yeager [facility]-09359 Level 4 Est. Patient 13:24:53 CDT [facility] CPT-51922 Level 4 Est. Patient 09:15:44 CDT Jonel Hemphill MD [facility]-54296 Level 4 Est. Patient 19:16:01 CDT Jonel Hemphill MD [facility]-32067 Level 4 Est. Patient 11:25:16 CDT Jonel Hemphill MD [facility] CPT-03348 Level 4 Est. Patient 09:00:40 CDT Jonel Hemphill MD [facility]-93490 Level 4 Est. Patient 14:53:58 CDT Jonel Hemphill MD [facility][note 3]-43547 Level 4 Est. Patient 22:59:01 CDT Jonel Hemphill MD [facility]-87914 Level 4 Est. Patient 09:29:57 CDT Jonel Hemphill MD [facility]-78904 Level 4 Est. Patient 12:35:53 CATERING MANAGER Jonel Hemphill MD [facility]-01762 Level 4 Est. Patient 22:36:09 CATERING MANAGER Jonel Hemphill MD [facility]-71183 Level 2 Est. Patient 15:14:15 CATERING MANAGER Mayco Shah APRN [facility] CPT-90731 Level 4 Est. Patient 10:36:22 CATERING MANAGER Jonel Hemphill MD [facility] CPT-23662 Level 4 Est. Patient 22:01:13 CATERING MANAGER Jonel Hemphill MD [facility]-21247 Level 3 Est. Patient 21:50:37 CATERING MANAGER Jonel Hemphill MD [facility] CPT-31134 Level 4 Est. Patient 15:02:43 CDT Rubin Pierre MD [facility] CPT-54527 Level 4 Est. Patient 14:27:35 CDT Jonel Hemphill MD [facility]-20844 Level 4 Est. Patient 12:41:17 CDT Jonel Hemphill MD [facility]-72478 Level 4 Est. Patient 16:18:55 CDT Jonel Hemphill MD [facility]-01548 Level 4 Est. Patient 17:58:05 CDT Jonel Hemphill MD [facility]-13582 Level 4 Est. Patient 22:10:06 CDT Jonel Hemphill MD [facility]-42454 Level 4 Est. Patient 13:22:09 CDT Jonel Hemphill MD [facility]-59428 Level 4 Est. Patient 22:52:17 CATERING MANAGER Jonel Hemphill MD [facility]-25357 Level 3 Est. Patient 22:34:10 CATERING MANAGER Jonel Hemphill MD [facility]-24304 Level 4 Est. Patient 07:49:20 CATERING MANAGER Jonel Hemphill MD [facility] Skilled CPT-58759 Level 3 Est. Patient 08:28:27 CATERING MANAGER Jonel Hemphill MD [facility] Procedures Code Procedure Name Date Entry Date Standard Description CPT-G0438 Initial Annual Wellness Exam 09:32:09 CATERING MANAGER CPT-32138 Level 3 Skilled Nursing 17:57:17 CATERING MANAGER CPT-16699 Level 3 Skilled Nursing 21:14:15 CATERING MANAGER CPT-92528 Level 3 Skilled Nursing 15:38:24 CDT CPT-53209 Level 3 Skilled Nursing 08:18:30 CDT CPT-15281 Level 3 Skilled Nursing 19:03:14 CDT CPT-44998 Level 3 Skilled Nursing 17:42:11 CDT CPT-61320 Level 3 Skilled Nursing 16:04:10 CDT CPT-10923 Level 3 Skilled Nursing 19:38:15 CATERING MANAGER CPT-69697 Level 3 Skilled Nursing 19:28:48 CATERING MANAGER CPT-78421 Level 3 Skilled Nursing 18:02:20 CATERING MANAGER CPT-62098 Level 3 Skilled Nursing 15:02:14 CATERING MANAGER CPT-02044 Level 3 Skilled Nursing 12:25:37 CDT CPT-78456 Level 3 Skilled Nursing 12:48:39 CDT CPT-58518 Level 3 Skilled Nursing 17:39:14 CDT CPT-23426 Level 3 Skilled Nursing 13:32:58 CDT CPT-07873 Level 3 Skilled Nursing 17:43:43 CDT CPT-69227 Level 3 Skilled Nursing 12:03:33 CATERING MANAGER CPT-36510 Level 3 Skilled Nursing 18:47:28 CATERING MANAGER CPT-18463 Level 3 Skilled Nursing 17:35:26 CATERING MANAGER CPT-14895 Level 3 Skilled Nursing 18:44:49 CATERING MANAGER CPT-22971 Level 3 Skilled Nursing 18:17:33 CDT CPT-88435 Level 3 Skilled Nursing 09:25:33 CDT CPT-28938 Level 3 Skilled Nursing 19:11:57 CDT CPT-00635 Level 3 Skilled Nursing 09:25:52 CDT CPT-84369 Level 3 Skilled Nursing 14:23:59 CDT CPT-20653 Level 3 Skilled Nursing 12:09:43 CDT CPT-88203 Level 3 Skilled Nursing 09:37:40 CDT CPT-23695 Level 3 Skilled Nursing 18:23:02 CDT CPT-53487 Level 3 Skilled Nursing 14:09:06 CDT CPT-64819 Level 3 Skilled Nursing 12:43:27 CATERING MANAGER CPT-67362 Postop F/U Visit 14:10:15 CATERING MANAGER CPT-90717 [facility] 17:07:14 CATERING MANAGER CPT-68500 Level 3 Skilled Nursing 16:14:37 CATERING MANAGER CPT-95438 Port a cath flush 11:47:42 CDT CPT-93249 Port a cath flush 08:29:49 CDT CPT-OV Office Visit 14:27:58 CATERING MANAGER
--- OUTSIDE RECORDS SUMMARY | 2016-08-07 12:22 | XMS REPORT ---
Author Author [facility] Medical Staff Organization [facility] Address [address], [place] [id number] Phone [phone] Summary purpose TRANSITION OF CARE AUTO GENERATION [...] diagnostic tests and/or laboratory data RESULTS Chemistry [id number]:38:00 Result Normal Range Units Sodium 139 134-145 mEq/l Potassium 4.6 3.5-5.1 mEq/l Chloride 99 98-107 mEq/l CO2 H 31.5 22-28 mEq/l Glucose H 153 70-105 mg/dl BUN H 19 7-18 mg/dl Creatinine 0.92 0.6-1.3 mg/dl Calcium 9.0 8.4-10.2 mg/dl PO4 H 4.7 1.9-4.5 mg/dl Albumin 4.0 3.5-5 g/dl Osmolality 282.8 280-300 mOsm/L Anion GAP 8.5 8-16 BUN/Creatinine Ratio H 20.7 10-20 Estimated GFR 86 >=60 mL/min/1.7 History of procedures No procedures [...]
--- OUTSIDE RECORDS SUMMARY | 2016-08-07 12:24 | XMS REPORT | Clinical Summary ---
Author Author Admin, [place] Organization [facility] Address Unknown Phone 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, CAREER SERVICES COORDINATOR V58.69 Resolved Jonel Hemphill MD Long-term [...] Coronary atherosclerosis of unspecified type of vessel, eyak or graft FH DIABETES V18.0 Resolved Jonel [...] Coronary atherosclerosis of unspecified type of vessel, eyak or graft CONSTIPATION 564.00 Resolved Jonel Hemphill [...] Obstructive sleep apnea (adult) (pediatric) 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 USE, CAREER SERVICES COORDINATOR ICD-V58.69 Inactive Jonel Hemphill MD DIABETES, TYPE [...] 1 tablet by mouth daily CITALOPRAM HYDROBROMIDE 64415199813 Active Marleni Romero Active ZOFRAN 4 MG TABS 1 po q6hr PRN Nausea ONDANSETRON HCL 12859863359 Active Jonel Hemphill MD Active XARELTO 20 MG ORAL TABS 1 daily RIVAROXABAN 93644833446 Active Jonel Hemphill MD Active JANUVIA 100 MG ORAL TABS 2 tabs daily SITAGLIPTIN PHOSPHATE 42496495345 Active Jonel Hemphill MD Active CELEXA 20 MG TABS Take 1 tablet 1x daily CITALOPRAM HYDROBROMIDE 91940606970 No Longer Active Jonel Hemphill MD Active ATIVAN 0.5 MG TABS Take 1 tablet 2x daily PRN LORAZEPAM 36263978849 No Longer Active Jonel Hemphill MD Active FUROSEMIDE 80 MG ORAL TABS 1 daily FUROSEMIDE 45863558828 Active Jonel Hemphill MD Active MECLIZINE HCL 25 MG CHEW TAB 1 four times a day as needed for dizziness 02/21 MECLIZINE HCL 35752286673 No Longer Active Jonel Hemphill MD Active ZYLOPRIM 300 MG TAB 1 BY MOUTH DAILY ALLOPURINOL 82989329849 No Longer Active Jonel Hemphill MD Active METOPROLOL TARTRATE 50 MG ORAL TABS 1 TAB BY MOUTH TWICE DAILY METOPROLOL TARTRATE 30361629388 No Longer Active Jonel Hemphill MD Active GABAPENTIN 400 MG ORAL CAPS 1 TAB BY MOUTH THREE TIMES DAILY 2015 GABAPENTIN 69360712891 No Longer Active Jonel Hemphill MD Active ULORIC 40 MG ORAL TABS 1 daily for gout. FEBUXOSTAT 99614707033 Active Marleni Romero Active HYDROCODONE-ACETAMINOPHEN 7.5-325 MG TABS 1 TAB PO Q 6 HRS PRN HYDROCODONE-ACETAMINOPHEN 52417190069 Active Mattie Gates APRN Active METFORMIN HCL 1000 MG TABS 1 tablet by mouth twice daily METFORMIN HCL 81495531157 Active Marleni Romero Active FENTANYL 12 MCG/HR PT72 Apply to clean, dry skin and change every 72 hours FENTANYL 59565681035 Active Jonel Hemphill MD Active KLOR-CON 20 MEQ ORAL PACK 1 BY MOUTH DAILY POTASSIUM CHLORIDE 53919471186 Active Marleni Romero Active A+D FIRST AID EXT OINT APPLY OINTMENT AND RUFINO WRAPS TO LOWER EXTEREMETIES DAILY SKIN PROTECTANTS, MISC. 25295794092 Active Jonel Hemphill MD Active NYSTATIN 643161 UNIT/GM EXT OINT APPLY PRN TID TO GAULDING/RASH IN ABDOMINAL FOLDS NYSTATIN 22080674459 Active Jonel Hemphill MD Active GABAPENTIN 300 MG CAPS 1 CAP PO TID GABAPENTIN 68521080658 No Longer Active Jonel Hemphill MD Active DILANTIN 100 MG ORAL CAPS 1 THREE TIMES DAILY FOR SEIZURES PHENYTOIN SODIUM EXTENDED 30282807930 Active Marleni Tenoriokristin Active CPAP APPLY AT HS CPAP Active Jonel Hemphill MD Active LISINOPRIL 40 MG TABS 1 tablet by mouth twice daily, for blood pressure 03/31 LISINOPRIL 07059775526 Active Jonel Hemphill MD Active BUPROPION HCL ER (SR) 150 MG [id number] 1 twice a day for depression BUPROPION HCL 40834874922 Active Jonel Hemphill MD Active MULTIVITAMINS CAPS 1 DAILY MULTIPLE VITAMIN 09628146333 Active Jonel Hemphill MD Active HYDROCODONE-ACETAMINOPHEN 7.5-325 MG TABS 1 q 6 hrs prn HYDROCODONE-ACETAMINOPHEN 86989661369 No Longer Active Jonel Hemphill MD Active DILANTIN 100 MG CAPS 3 cap tid PHENYTOIN SODIUM EXTENDED 18492066981 No Longer Active Jonel Hemphill MD Active BUDEPRION SR 150 MG [id number] 1 bid BUPROPION HCL 20537630623 No Longer Active Jonel Hemphill MD Active ALLOPURINOL 300 MG TABS 1 qd ALLOPURINOL 63745473877 No Longer Active Jonel Hemphill MD Active COZAAR 100 MG TABS 1 qd LOSARTAN POTASSIUM 35698141259 No Longer Active Jonel Hemphill MD Active CVS VITAMIN C 500 MG TABS 1 po daily ASCORBIC ACID 04798464399 No Longer Active Jonel Hemphill MD Active MIRALAX POWD 17 gms in 4 oz water or juice daily POLYETHYLENE GLYCOL 3350 83476752807 No Longer Active Jonel Hemphill MD Active POTASSIUM CHLORIDE CHELA ER 20 MEQ CR-TABS 1 tab PO daily POTASSIUM CHLORIDE CHELA CR 55644159215 No Longer Active Jonel Hemphill MD Active AMBIEN 10 MG TAB 1 tab by mouth at bedtime as needed for sleep ZOLPIDEM TARTRATE 03325129452 No Longer Active Jonel Hemphill MD Active SULFAMETHOXAZOLE-TMP DS 800-160 MG TABS 1 TAB PO BID SULFAMETHOXAZOLE-TRIMETHOPRIM 86286677007 No Longer Active Jonel Hemphill MD Active NORCO 5-325 MG TABS 1-2 TAB Q 6 HRS PRN HYDROCODONE- ACETAMINOPHEN 01134893570 Active Jonel Hemphill MD Active LEVEMIR 100 UNIT/ML SOLN 5 units sub-q at bedtime INSULIN DETEMIR 42133620107 No Longer Active Tova Perez Active MOBIC 15 MG TABS 1 tab PO daily for arthritis pain MELOXICAM 92619696954 No Longer Active Tova Perez Active GLUCAGEN 1 MG SOLR INJECT 1MG IM IF BS LESS THAN 60 & RES. IS UNABLE TO SWALLOW GLUCAGON HCL (RDNA) 16035483058 No Longer Active Tova Perez Active CVS MILK OF MAGNESIA 1200 MG/15ML SUSP 30 ml daily for constipation MAGNESIUM HYDROXIDE 29094540957 No Longer Active Tova Perez Active IMDUR 120 MG [id number] 1 qd ISOSORBIDE MONONITRATE 20022300403 No Longer Active Tova Perez Active PHENYTOIN 50 MG CHEW 1 TAB PO BID PHENYTOIN 64131111308 Active Tova Perez Active NEURONTIN 400 MG CAPS Take one by mouth 3 times daily, morning, afternoon and evening.] GABAPENTIN 96999151765 No Longer Active Tova Perez Active ANTIVERT 25 MG TABS 1 q 6 hrs prn MECLIZINE HCL 71839150774 No Longer Active Jonel Hemphill MD Active CLONIDINE HCL 0.2 MG TABS 1 q 8 hrs as needed -greater than 160-htn CLONIDINE HCL 09686252068 No Longer Active Jonel Hemphill MD Active AMBIEN 10 MG TABS 1 q hs prn ZOLPIDEM TARTRATE 11182019958 No Longer Active Jonel Hemphill MD Active GNP THERAPEUTIC-M TABS 1 qd MULTIPLE VITAMINS- MINERALS 34795800369 No Longer Active Jonel Hemphill MD Active METOPROLOL TARTRATE 50 MG TABS 1 bid METOPROLOL TARTRATE 93543156338 No Longer Active Jonel Hemphill MD Active METFORMIN HCL 500 MG TABS 1 bod with food METFORMIN HCL 05353468267 No Longer Active Jonel Hemphill MD Active LISINOPRIL 40 MG TABS 1 qd LISINOPRIL 38124575424 No Longer Active Jonel Hemphill MD Active HYDROCHLOROTHIAZIDE 25 MG TABS 1 qd HYDROCHLOROTHIAZIDE 88128482215 No Longer Active Jonel Hemphill MD Active DURAGESIC-25 25 MCG/HR PT72 place 1 patch on the skin q72hrs for pain FENTANYL 12071578585 No Longer Active Jonel Hemphill MD Active FENTANYL 75 MCG/HR PT72 place 1 patch on skin q72hrs fr pain 2012 FENTANYL 90409279591 No Longer Active Jonel Hemphill MD Active FUROSEMIDE 40 MG TABS 1 q am FUROSEMIDE 86346851552 No Longer Active Jonel Hemphill MD Active HEPARIN (PORCINE) LOCK FLUSH 100 UNIT/ML SOLN Flush port a cath monthly every three week on with Heparin and NS HEPARIN LOCK FLUSH 68040672237 Active Jonel Hemphill MD Active FENTANYL 100 MCG/HR PT72 Apply every 3 days FENTANYL 32793575752 Active Jonel Hemphill MD Active FENTANYL 25 MCG/HR PT72 Apply to clean skin and change every 72 hours. 07/03 FENTANYL 55275353353 No Longer Active Jonel Hemphill MD Active FENTANYL 50 MCG/HR PT72 place 1 patch on skin q72 hours FENTANYL 49851354823 No Longer Active Mayco Shah APRN Active DURAGESIC-12 12 MCG/HR PT72 APPLY PATCH TO SKIN AND CHANGE EVERY 72 HOURS, ROTATE SITES FENTANYL 45881057056 No Longer Active Fozia HERNANDEZ Active FUROSEMIDE 20 MG TABS 1 qd FUROSEMIDE 39260681633 No Longer Active Mahogany Bolivar Active ADULT ASPIRIN EC LOW STRENGTH 81 MG TBEC 1 qd ASPIRIN 03341179961 Active MARY Perez Active FUROSEMIDE 20 MG TABS 1 qd FUROSEMIDE 20 MG TABS 801890 FUROSEMIDE Inactive DURAGESIC-12 12 MCG/HR PT72 APPLY PATCH TO SKIN AND CHANGE EVERY 72 HOURS, ROTATE SITES DURAGESIC-12 12 MCG/HR PT72 349391 FENTANYL Inactive FENTANYL 50 MCG/HR PT72 place 1 patch on skin q72 hours FENTANYL 50 MCG/HR PT72 219087 FENTANYL Inactive FUROSEMIDE 40 MG TABS 1 q am FUROSEMIDE 40 MG TABS 999486 FUROSEMIDE Inactive FENTANYL 75 MCG/HR PT72 place 1 patch on skin q72hrs fr pain 2012 FENTANYL 75 MCG/HR PT72 449812 FENTANYL Inactive DURAGESIC-25 25 MCG/HR PT72 place 1 patch on the skin q72hrs for pain DURAGESIC-25 25 MCG/HR PT72 323869 FENTANYL Inactive HYDROCHLOROTHIAZIDE 25 MG TABS 1 qd HYDROCHLOROTHIAZIDE 25 MG TABS 998442 HYDROCHLOROTHIAZIDE Inactive LISINOPRIL 40 MG TABS 1 qd LISINOPRIL 40 MG TABS 522675 LISINOPRIL Inactive METFORMIN HCL 500 MG TABS 1 bod with food METFORMIN HCL 500 MG TABS 676759 METFORMIN HCL Inactive METOPROLOL TARTRATE 50 MG TABS 1 bid METOPROLOL TARTRATE 50 MG TABS 619581 METOPROLOL TARTRATE Inactive GNP THERAPEUTIC-M TABS 1 qd GNP THERAPEUTIC-M TABS MULTIPLE VITAMINS-MINERALS Inactive AMBIEN 10 MG TABS 1 q hs prn AMBIEN 10 MG TABS 382324 ZOLPIDEM TARTRATE Inactive CLONIDINE HCL 0.2 MG TABS 1 q 8 hrs as needed -greater than 160-htn CLONIDINE HCL 0.2 MG TABS 493849 CLONIDINE HCL Inactive ANTIVERT 25 MG TABS 1 q 6 hrs prn ANTIVERT 25 MG TABS MECLIZINE HCL Inactive NEURONTIN 400 MG CAPS Take one by mouth 3 times daily, morning, afternoon and evening.] NEURONTIN 400 MG CAPS 994415 GABAPENTIN Inactive IMDUR 120 MG [id number] 1 qd IMDUR 120 MG [id number] ISOSORBIDE MONONITRATE Inactive CVS MILK OF MAGNESIA [...] for arthritis pain MOBIC 15 MG TABS 823888 MELOXICAM Inactive LEVEMIR 100 UNIT/ML SOLN 5 units sub-q at bedtime LEVEMIR 100 UNIT/ML SOLN INSULIN DETEMIR Inactive SULFAMETHOXAZOLE-TMP DS 800-160 MG TABS 1 TAB PO BID SULFAMETHOXAZOLE-TMP DS 800-160 MG TABS 201049 SULFAMETHOXAZOLE-TRIMETHOPRIM Inactive AMBIEN 10 MG TAB 1 tab by mouth at bedtime as needed for sleep AMBIEN 10 MG TAB 626033 ZOLPIDEM TARTRATE Inactive POTASSIUM CHLORIDE CHELA ER 20 MEQ CR-TABS 1 tab PO daily POTASSIUM CHLORIDE CHELA ER 20 MEQ CR-TABS POTASSIUM CHLORIDE CHELA CR Inactive MIRALAX POWD 17 gms in 4 oz water or juice daily MIRALAX POWD 999279 POLYETHYLENE GLYCOL 3350 Inactive CVS VITAMIN C 500 MG TABS 1 po daily CVS VITAMIN C 500 MG TABS 876970 ASCORBIC ACID Inactive COZAAR 100 MG TABS 1 qd COZAAR 100 MG TABS 455563 LOSARTAN POTASSIUM Inactive ALLOPURINOL 300 MG TABS 1 qd ALLOPURINOL 300 MG TABS 713465 ALLOPURINOL Inactive BUDEPRION SR 150 MG [id number] 1 bid BUDEPRION SR 150 MG [id number] BUPROPION HCL Inactive DILANTIN 100 MG CAPS 3 cap tid DILANTIN 100 MG CAPS 420850 PHENYTOIN SODIUM EXTENDED Inactive HYDROCODONE-ACETAMINOPHEN 7.5-325 MG TABS 1 q 6 hrs prn HYDROCODONE-ACETAMINOPHEN 7.5-325 MG TABS 363220 HYDROCODONE- ACETAMINOPHEN Inactive GABAPENTIN 300 MG CAPS 1 CAP PO TID GABAPENTIN 300 MG CAPS 063748 GABAPENTIN Inactive GABAPENTIN 400 MG ORAL CAPS 1 TAB BY MOUTH THREE TIMES DAILY 2015 GABAPENTIN 400 MG ORAL CAPS 912848 GABAPENTIN Inactive METOPROLOL TARTRATE 50 MG ORAL TABS 1 TAB BY MOUTH TWICE DAILY METOPROLOL TARTRATE 50 MG ORAL TABS 674750 METOPROLOL TARTRATE Inactive ZYLOPRIM 300 MG TAB 1 BY MOUTH DAILY ZYLOPRIM 300 MG TAB 623523 ALLOPURINOL Inactive MECLIZINE HCL 25 MG CHEW TAB 1 four times a day as needed for dizziness 02/21 MECLIZINE HCL 25 MG CHEW TAB 673421 MECLIZINE HCL Inactive ATIVAN 0.5 MG TABS Take 1 tablet 2x daily PRN ATIVAN 0.5 MG TABS 542810 LORAZEPAM Inactive CELEXA 20 MG TABS Take 1 tablet 1x daily CELEXA 20 MG TABS 008370 CITALOPRAM HYDROBROMIDE Inactive FENTANYL 25 MCG/HR PT72 Apply to clean skin and change every 72 hours. 07/03 FENTANYL 25 MCG/HR PT72 127548 FENTANYL Inactive Advance Directives Directive Description Start [...] mg/dL Encounters Code Encounter Date Provider Facility CPT-09651 Level 3 Est. Patient 19:05:03 CDT Jonel Hemphill MD [facility]-83721 Level 3 Est. Patient 17:30:47 CDT Kevin Link MD [facility]-84701 Level 3 Est. Patient 18:04:07 CDT Jonel Hemphill MD [facility]-18516 Level 3 Est. Patient 17:18:03 CDT Jonel Hemphill MD [facility]-26492 Level 3 Est. Patient 21:58:03 SUPPLY CHAIN BUSINESS ANALYST Jonel Hemphill MD [facility]-78885 Level 4 Est. Patient 18:03:14 CDT [facility]49112 Level 4 Est. Patient 13:24:53 CDT Jonel Yeager [facility]-50389 Level 4 Est. Patient 09:15:44 CDT Jonel Yeager [facility]-54434 Level 4 Est. Patient 19:16:01 CDT [facility]88921 Level 4 Est. Patient 11:25:16 CDT Jonel Hemphill MD [facility] CPT-11324 Level 4 Est. Patient 09:00:40 CDT [facility]-17009 Level 4 Est. Patient 14:53:58 CDT Jonel Hemphill MD [facility] CPT-58328 Level 4 Est. Patient 22:59:01 CDT Jonel Hemphill MD [facility]-26265 Level 4 Est. Patient 09:29:57 CDT Jonel Hemphill MD [facility]-75517 Level 4 Est. Patient 12:35:53 SUPPLY CHAIN BUSINESS ANALYST Jonel Hemphill MD [facility]-39917 Level 4 Est. Patient 22:36:09 SUPPLY CHAIN BUSINESS ANALYST Jonel Hemphill MD [facility]-57708 Level 2 Est. Patient 15:14:15 SUPPLY CHAIN BUSINESS ANALYST Mayco Shah APRN [facility]-62749 Level 4 Est. Patient 10:36:22 SUPPLY CHAIN BUSINESS ANALYST Jonel Hemphill MD [facility] CPT-53645 Level 4 Est. Patient 22:01:13 SUPPLY CHAIN BUSINESS ANALYST Jonel Hemphill MD [facility]-92615 Level 3 Est. Patient 21:50:37 SUPPLY CHAIN BUSINESS ANALYST Jonel Hemphill MD [facility] CPT-65958 Level 4 Est. Patient 15:02:43 CDT Rubin Pierre MD [facility] CPT-30604 Level 4 Est. Patient 14:27:35 CDT Jonel Hemphill MD [facility]-61199 Level 4 Est. Patient 12:41:17 CDT Jonel Hemphill MD [facility] CPT-16041 Level 4 Est. Patient 16:18:55 CDT Jonel Hemphill MD [facility] CPT-17491 Level 4 Est. Patient 17:58:05 CDT Jonel Hemphill MD [facility] CPT-43963 Level 4 Est. Patient 22:10:06 CDT Jonel Hemphill MD [facility]-78805 Level 4 Est. Patient 13:22:09 CDT Jonel Hemphill MD [facility] CPT-32355 Level 4 Est. Patient 22:52:17 SUPPLY CHAIN BUSINESS ANALYST Jonel Hemphill MD [facility] CPT-81029 Level 3 Est. Patient 22:34:10 SUPPLY CHAIN BUSINESS ANALYST Jonel Hemphill MD [facility] CPT-59952 Level 4 Est. Patient 07:49:20 SUPPLY CHAIN BUSINESS ANALYST Jonel Hemphill MD [facility] Skilled CPT-35887 Level 3 Est. Patient 08:28:27 SUPPLY CHAIN BUSINESS ANALYST Jonel Hemphill MD [facility] Procedures Code Procedure Name Date Entry Date Standard Description CPT-84730 Level 3 Mcfp 08:18:30 CDT CPT-03678 Level 3 Mcfp 19:03:14 CDT CPT-37641 Level 3 Mcfp 17:42:11 CDT CPT-91412 Level 3 Mcfp 16:04:10 CDT CPT-04828 Level 3 Mcfp 19:38:15 SUPPLY CHAIN BUSINESS ANALYST CPT-22833 Level 3 Mcfp 19:28:48 SUPPLY CHAIN BUSINESS ANALYST CPT-56068 Level 3 Mcfp 18:02:20 SUPPLY CHAIN BUSINESS ANALYST CPT-59035 Level 3 Mcfp 15:02:14 SUPPLY CHAIN BUSINESS ANALYST CPT-86782 Level 3 Mcfp 12:25:37 CDT CPT-51543 Level 3 Mcfp 12:48:39 CDT CPT-88484 Level 3 Mcfp 17:39:14 CDT CPT-59748 Level 3 Mcfp 13:32:58 CDT CPT-85586 Level 3 Mcfp 17:43:43 CDT CPT-28028 Level 3 Mcfp 12:03:33 SUPPLY CHAIN BUSINESS ANALYST CPT-75357 Level 3 Mcfp 18:47:28 SUPPLY CHAIN BUSINESS ANALYST CPT-68606 Level 3 Mcfp 17:35:26 SUPPLY CHAIN BUSINESS ANALYST CPT-98636 Level 3 Mcfp 18:44:49 SUPPLY CHAIN BUSINESS ANALYST CPT-03874 Level 3 Mcfp 18:17:33 CDT CPT-34287 Level 3 Mcfp 09:25:33 CDT CPT-10814 Level 3 Mcfp 19:11:57 CDT CPT-23302 Level 3 Mcfp 09:25:52 CDT CPT-91832 Level 3 Mcfp 14:23:59 CDT CPT-88991 Level 3 Mcfp 12:09:43 CDT CPT-82052 Level 3 Mcfp 09:37:40 CDT CPT-23792 Level 3 Mcfp 18:23:02 CDT CPT-38312 Level 3 Mcfp 14:09:06 CDT CPT-07916 Level 3 Mcfp 12:43:27 SUPPLY CHAIN BUSINESS ANALYST CPT-73814 Postop F/U Visit 14:10:15 SUPPLY CHAIN BUSINESS ANALYST CPT-49922 [facility] 17:07:14 SUPPLY CHAIN BUSINESS ANALYST CPT-66541 Level 3 Mcfp 16:14:37 SUPPLY CHAIN BUSINESS ANALYST CPT-29542 Port a cath flush 11:47:42 CDT CPT-92588 Port a cath flush 08:29:49 CDT CPT-OV Office Visit 14:27:58 SUPPLY CHAIN BUSINESS ANALYST
--- OUTSIDE RECORDS SUMMARY | 2016-08-07 12:25 | XMS REPORT | Clinical Summary ---
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.69 Resolved Jonel Hemphill MD Long-term [...] Coronary atherosclerosis of unspecified type of vessel, [place] or graft FH DIABETES V18.0 Resolved Jonel [...] Coronary atherosclerosis of unspecified type of vessel, [place] or graft CONSTIPATION 564.00 Resolved Jonel Hemphill [...] Hemphill MD Spasm of muscle 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 USE, GROUP HOME ICD-V58.69 Inactive Jonel Hemphill MD DIABETES, [...] skin and change every 72 hours FENTANYL 86056549283 Active Jonel Hemphill MD Active MIRALAX POWD 17 gms in 4 oz water or juice daily POLYETHYLENE GLYCOL 3350 94175002051 Active Jonel Hemphill MD Active CVS MELATONIN 3 MG ORAL TABS 2 tabs at hs MELATONIN 89145957222 Active Jonel Hemphill MD Active MAGNESIUM GLUCONATE 500 MG ORAL TABS 1 tab twice daily MAGNESIUM GLUCONATE 33805937338 Active Jonel Hemphill MD Active OMEPRAZOLE 20 MG CPDR 1 tablet by mouth daily OMEPRAZOLE 72956333568 Active Jonel Hemphill MD Active DIGOXIN 125 MCG ORAL TABS 1 daily DIGOXIN 26364690789 Active Jonel Hemphill MD Active DILTIAZEM CD 240 MG ORAL [id number] 1 daily DILTIAZEM HCL COATED BEADS 14236170218 Active Jonel Hemphill MD Active NOVOLOG 100 UNIT/ML SC SOLN 70-140=0U 141-180=2 U 181-220=4U 221-260=6U 261- 300=8U 301-340=10U 275=651=74W 381-400=14U INSULIN ASPART 11052997672 Active Jonel Hemphill MD Active ACETAMINOPHEN 325 MG ORAL TABS 1 tab by mouth every 4 hours as needed ACETAMINOPHEN 13415955323 Active Jonel Hemphill MD Active FENTANYL 12 MCG/HR PT72 Apply to clean, dry skin and change every 72 hours FENTANYL 47786162496 No Longer Active Jonel Hemphill MD Active PHENYTOIN 50 MG CHEW 1 TAB PO BID PHENYTOIN 14530491407 No Longer Active Jonel Hemphill MD Active NORCO 5-325 MG TABS 1-2 TAB Q 6 HRS PRN HYDROCODONE- ACETAMINOPHEN 69443560082 No Longer Active Jonel Hemphill MD Active MULTIVITAMINS CAPS 1 DAILY MULTIPLE VITAMIN 89167092726 No Longer Active Jonel Hemphill MD Active BUPROPION HCL ER (SR) 150 MG [id number] 1 twice a day for depression BUPROPION HCL 33383310405 No Longer Active oJnel Hemphill MD Active LISINOPRIL 20 MG TABS 1 tablet by mouth daily LISINOPRIL 14605153087 Active Jonel Hemphill MD Active ULORIC 40 MG ORAL TABS 1 daily for gout. FEBUXOSTAT 15109078041 No Longer Active Jonel Hemphill MD Active CELEXA 20 MG TABS 1 tablet by mouth daily CITALOPRAM HYDROBROMIDE 78418447346 Active Marleni Raida Active ZOFRAN 4 MG TABS 1 po q6hr PRN Nausea ONDANSETRON HCL 88794949488 Active Jonel Hemphill MD Active XARELTO 20 MG ORAL TABS 1 daily RIVAROXABAN 14098882707 Active Jonel Hemphill MD Active JANUVIA 100 MG ORAL TABS 2 tabs daily SITAGLIPTIN PHOSPHATE 97213269854 Active Jonel Hemphill MD Active CELEXA 20 MG TABS Take 1 tablet 1x daily CITALOPRAM HYDROBROMIDE 09793912589 No Longer Active Jonel Hemphill MD Active ATIVAN 0.5 MG TABS Take 1 tablet 2x daily PRN LORAZEPAM 19679064019 No Longer Active Jonel Hemphill MD Active FUROSEMIDE 80 MG ORAL TABS 1 daily FUROSEMIDE 75619212959 Active Jonel Hemphill MD Active MECLIZINE HCL 25 MG CHEW TAB 1 four times a day as needed for dizziness 02/21 MECLIZINE HCL 69215326361 No Longer Active Jonel Hemphill MD Active ZYLOPRIM 300 MG TAB 1 BY MOUTH DAILY ALLOPURINOL 66574001748 No Longer Active Jonel Hemphill MD Active METOPROLOL TARTRATE 50 MG ORAL TABS 1 TAB BY MOUTH TWICE DAILY METOPROLOL TARTRATE 34306845409 No Longer Active Jonel Hemphill MD Active GABAPENTIN 400 MG ORAL CAPS 1 TAB BY MOUTH THREE TIMES DAILY 2015 GABAPENTIN 74997261632 No Longer Active Jonel Hemphill MD Active HYDROCODONE-ACETAMINOPHEN 7.5-325 MG TABS 1 TAB PO Q 6 HRS PRN HYDROCODONE-ACETAMINOPHEN 48390814385 Active Jonel Hemphill MD Active METFORMIN HCL 1000 MG TABS 1 tablet by mouth twice daily METFORMIN HCL 63912217080 Active Marleni Romero Active KLOR-CON 20 MEQ ORAL PACK 1 BY MOUTH DAILY POTASSIUM CHLORIDE 75545616692 Active Marleni Romero Active A+D FIRST AID EXT OINT APPLY OINTMENT AND RUFINO WRAPS TO LOWER EXTEREMETIES DAILY SKIN PROTECTANTS, MISC. 13755629961 Active Jonle Hemphill MD Active NYSTATIN 057042 UNIT/GM EXT OINT APPLY PRN TID TO GAULDING/RASH IN ABDOMINAL FOLDS NYSTATIN 78387056609 Active Jonel Hemphill MD Active GABAPENTIN 300 MG CAPS 1 CAP PO TID GABAPENTIN 02462754224 No Longer Active Jonel Hemphill MD Active DILANTIN 100 MG ORAL CAPS 1 THREE TIMES DAILY FOR SEIZURES PHENYTOIN SODIUM EXTENDED 19968529066 Active Marleni Romero Active CPAP APPLY AT HS CPAP Active Jonel Hemphill MD Active HYDROCODONE-ACETAMINOPHEN 7.5-325 MG TABS 1 q 6 hrs prn HYDROCODONE-ACETAMINOPHEN 14682555607 No Longer Active Jonel Hemphill MD Active DILANTIN 100 MG CAPS 3 cap tid PHENYTOIN SODIUM EXTENDED 18058476477 No Longer Active Jonel Hemphill MD Active BUDEPRION SR 150 MG [id number] 1 bid BUPROPION HCL 54431941941 No Longer Active Jonel Hemphill MD Active ALLOPURINOL 300 MG TABS 1 qd ALLOPURINOL 67989961898 No Longer Active Jonel Hemphill MD Active COZAAR 100 MG TABS 1 qd LOSARTAN POTASSIUM 99115107513 No Longer Active Jonel Hemphill MD Active CVS VITAMIN C 500 MG TABS 1 po daily ASCORBIC ACID 75008193318 No Longer Active Jonel Hemphill MD Active MIRALAX POWD 17 gms in 4 oz water or juice daily POLYETHYLENE GLYCOL 3350 36140631757 No Longer Active Jonel Hemphill MD Active POTASSIUM CHLORIDE CHELA ER 20 MEQ CR-TABS 1 tab PO daily POTASSIUM CHLORIDE CHELA CR 28250513362 No Longer Active Jonel Hemphill MD Active AMBIEN 10 MG TAB 1 tab by mouth at bedtime as needed for sleep ZOLPIDEM TARTRATE 45805005241 No Longer Active Jonel Hemphill MD Active SULFAMETHOXAZOLE-TMP DS 800-160 MG TABS 1 TAB PO BID SULFAMETHOXAZOLE-TRIMETHOPRIM 59669048312 No Longer Active Jonel Hemphill MD Active LEVEMIR 100 UNIT/ML SOLN 5 units sub-q at bedtime INSULIN DETEMIR 17239737425 No Longer Active Tova Perez Active MOBIC 15 MG TABS 1 tab PO daily for arthritis pain MELOXICAM 14597689374 No Longer Active Tova Perez Active GLUCAGEN 1 MG SOLR INJECT 1MG IM IF BS LESS THAN 60 & RES. IS UNABLE TO SWALLOW GLUCAGON HCL (RDNA) 68825272794 No Longer Active Tova Perez Active CVS MILK OF MAGNESIA 1200 MG/15ML SUSP 30 ml daily for constipation MAGNESIUM HYDROXIDE 00909456550 No Longer Active Tova Perez Active IMDUR 120 MG [id number] 1 qd ISOSORBIDE MONONITRATE 27610947003 No Longer Active Tova Perez Active NEURONTIN 400 MG CAPS Take one by mouth 3 times daily, morning, afternoon and evening.] GABAPENTIN 55287541154 No Longer Active Tova Perez Active ANTIVERT 25 MG TABS 1 q 6 hrs prn MECLIZINE HCL 68699912613 No Longer Active Jonel Hemphill MD Active CLONIDINE HCL 0.2 MG TABS 1 q 8 hrs as needed -greater than 160-htn CLONIDINE HCL 04306465422 No Longer Active Jonel Hemphill MD Active AMBIEN 10 MG TABS 1 q hs prn ZOLPIDEM TARTRATE 95208354756 No Longer Active Jonel Hemphill MD Active GNP THERAPEUTIC-M TABS 1 qd MULTIPLE VITAMINS- MINERALS 13390810404 No Longer Active Jonel Hemphill MD Active METOPROLOL TARTRATE 50 MG TABS 1 bid METOPROLOL TARTRATE 01544463420 No Longer Active Jonel Hemphill MD Active METFORMIN HCL 500 MG TABS 1 bod with food METFORMIN HCL 40013045039 No Longer Active Jonel Hemphill MD Active LISINOPRIL 40 MG TABS 1 qd LISINOPRIL 75913162131 No Longer Active Jonel Hemphill MD Active HYDROCHLOROTHIAZIDE 25 MG TABS 1 qd HYDROCHLOROTHIAZIDE 78048351186 No Longer Active Jonel Hemphill MD Active DURAGESIC-25 25 MCG/HR PT72 place 1 patch on the skin q72hrs for pain FENTANYL 40515733262 No Longer Active Jonel Hemphill MD Active FENTANYL 75 MCG/HR PT72 place 1 patch on skin q72hrs fr pain 2012 FENTANYL 92855953807 No Longer Active Jonel Hemphill MD Active FUROSEMIDE 40 MG TABS 1 q am FUROSEMIDE 59749176199 No Longer Active Jonel Hemphill MD Active HEPARIN (PORCINE) LOCK FLUSH 100 UNIT/ML SOLN Flush port a cath monthly every three week on with Heparin and NS HEPARIN LOCK FLUSH 34301499901 Active Jonel Hemphill MD Active FENTANYL 100 MCG/HR PT72 Apply every 3 days FENTANYL 60062541037 Active Jonel Hemphill MD Active FENTANYL 25 MCG/HR PT72 Apply to clean skin and change every 72 hours. 07/03 FENTANYL 37559316358 No Longer Active Jonel Hemphill MD Active FENTANYL 50 MCG/HR PT72 place 1 patch on skin q72 hours FENTANYL 15642891331 No Longer Active Mayco Shah APRN Active DURAGESIC-12 12 MCG/HR PT72 APPLY PATCH TO SKIN AND CHANGE EVERY 72 HOURS, ROTATE SITES FENTANYL 07231441693 No Longer Active Fozia HERNANDEZ Active FUROSEMIDE 20 MG TABS 1 qd FUROSEMIDE 86319570502 No Longer Active Mahogany [place] Active ADULT ASPIRIN EC LOW STRENGTH 81 MG TBEC 1 qd ASPIRIN 69900323991 Active MARY Perez Active FUROSEMIDE 20 MG TABS 1 qd FUROSEMIDE 20 MG TABS 634876 FUROSEMIDE Inactive DURAGESIC-12 12 MCG/HR PT72 APPLY PATCH TO SKIN AND CHANGE EVERY 72 HOURS, ROTATE SITES DURAGESIC-12 12 MCG/HR PT72 483648 FENTANYL Inactive FENTANYL 50 MCG/HR PT72 place 1 patch on skin q72 hours FENTANYL 50 MCG/HR PT72 243749 FENTANYL Inactive FUROSEMIDE 40 MG TABS 1 q am FUROSEMIDE 40 MG TABS 985393 FUROSEMIDE Inactive FENTANYL 75 MCG/HR PT72 place 1 patch on skin q72hrs fr pain 2012 FENTANYL 75 MCG/HR PT72 227243 FENTANYL Inactive DURAGESIC-25 25 MCG/HR PT72 place 1 patch on the skin q72hrs for pain DURAGESIC-25 25 MCG/HR PT72 160415 FENTANYL Inactive HYDROCHLOROTHIAZIDE 25 MG TABS 1 qd HYDROCHLOROTHIAZIDE 25 MG TABS 012817 HYDROCHLOROTHIAZIDE Inactive LISINOPRIL 40 MG TABS 1 qd LISINOPRIL 40 MG TABS 971954 LISINOPRIL Inactive METFORMIN HCL 500 MG TABS 1 bod with food METFORMIN HCL 500 MG TABS 032419 METFORMIN HCL Inactive METOPROLOL TARTRATE 50 MG TABS 1 bid METOPROLOL TARTRATE 50 MG TABS 775848 METOPROLOL TARTRATE Inactive GNP THERAPEUTIC-M TABS 1 qd GNP THERAPEUTIC-M TABS MULTIPLE VITAMINS-MINERALS Inactive AMBIEN 10 MG TABS 1 q hs prn AMBIEN 10 MG TABS 001714 ZOLPIDEM TARTRATE Inactive CLONIDINE HCL 0.2 MG TABS 1 q 8 hrs as needed -greater than 160-htn CLONIDINE HCL 0.2 MG TABS 445401 CLONIDINE HCL Inactive ANTIVERT 25 MG TABS 1 q 6 hrs prn ANTIVERT 25 MG TABS MECLIZINE HCL Inactive NEURONTIN 400 MG CAPS Take one by mouth 3 times daily, morning, afternoon and evening.] NEURONTIN 400 MG CAPS 941627 GABAPENTIN Inactive IMDUR 120 MG [id number] 1 qd IMDUR 120 MG [id number] ISOSORBIDE MONONITRATE Inactive CVS MILK OF MAGNESIA [...] for arthritis pain MOBIC 15 MG TABS 240354 MELOXICAM Inactive LEVEMIR 100 UNIT/ML SOLN 5 units sub-q at bedtime LEVEMIR 100 UNIT/ML SOLN INSULIN DETEMIR Inactive SULFAMETHOXAZOLE-TMP DS 800-160 MG TABS 1 TAB PO BID SULFAMETHOXAZOLE-TMP DS 800-160 MG TABS 652554 SULFAMETHOXAZOLE-TRIMETHOPRIM Inactive AMBIEN 10 MG TAB 1 tab by mouth at bedtime as needed for sleep AMBIEN 10 MG TAB 464001 ZOLPIDEM TARTRATE Inactive POTASSIUM CHLORIDE CHELA ER 20 MEQ CR-TABS 1 tab PO daily POTASSIUM CHLORIDE CHELA ER 20 MEQ CR-TABS POTASSIUM CHLORIDE CHELA CR Inactive MIRALAX POWD 17 gms in 4 oz water or juice daily MIRALAX POWD 643379 POLYETHYLENE GLYCOL 3350 Inactive CVS VITAMIN C 500 MG TABS 1 po daily CVS VITAMIN C 500 MG TABS 114848 ASCORBIC ACID Inactive COZAAR 100 MG TABS 1 qd COZAAR 100 MG TABS 913335 LOSARTAN POTASSIUM Inactive ALLOPURINOL 300 MG TABS 1 qd ALLOPURINOL 300 MG TABS 167919 ALLOPURINOL Inactive BUDEPRION SR 150 MG [id number] 1 bid BUDEPRION SR 150 MG [id number] BUPROPION HCL Inactive DILANTIN 100 MG CAPS 3 cap tid DILANTIN 100 MG CAPS 859023 PHENYTOIN SODIUM EXTENDED Inactive HYDROCODONE-ACETAMINOPHEN 7.5-325 MG TABS 1 q 6 hrs prn HYDROCODONE-ACETAMINOPHEN 7.5-325 MG TABS 188786 HYDROCODONE- ACETAMINOPHEN Inactive GABAPENTIN 300 MG CAPS 1 CAP PO TID GABAPENTIN 300 MG CAPS 581207 GABAPENTIN Inactive GABAPENTIN 400 MG ORAL CAPS 1 TAB BY MOUTH THREE TIMES DAILY 2015 GABAPENTIN 400 MG ORAL CAPS 192174 GABAPENTIN Inactive METOPROLOL TARTRATE 50 MG ORAL TABS 1 TAB BY MOUTH TWICE DAILY METOPROLOL TARTRATE 50 MG ORAL TABS 698539 METOPROLOL TARTRATE Inactive ZYLOPRIM 300 MG TAB 1 BY MOUTH DAILY ZYLOPRIM 300 MG TAB 010766 ALLOPURINOL Inactive MECLIZINE HCL 25 MG CHEW TAB 1 four times a day as needed for dizziness 02/21 MECLIZINE HCL 25 MG CHEW TAB 705591 MECLIZINE HCL Inactive ATIVAN 0.5 MG TABS Take 1 tablet 2x daily PRN ATIVAN 0.5 MG TABS 078840 LORAZEPAM Inactive CELEXA 20 MG TABS Take 1 tablet 1x daily CELEXA 20 MG TABS 719794 CITALOPRAM HYDROBROMIDE Inactive ULORIC 40 MG ORAL TABS 1 daily for gout. ULORIC 40 MG ORAL TABS FEBUXOSTAT Inactive BUPROPION HCL ER (SR) 150 MG [id number] 1 twice a day for depression BUPROPION HCL ER (SR) 150 MG [id number] BUPROPION HCL Inactive MULTIVITAMINS CAPS 1 DAILY MULTIVITAMINS CAPS MULTIPLE VITAMIN Inactive NORCO 5-325 MG TABS 1-2 TAB Q 6 HRS PRN NORCO 5-325 MG TABS 058262 HYDROCODONE-ACETAMINOPHEN Inactive PHENYTOIN 50 MG CHEW 1 TAB PO BID PHENYTOIN 50 MG CHEW 8476926 PHENYTOIN Inactive FENTANYL 12 MCG/HR PT72 Apply to clean, dry skin and change every 72 hours FENTANYL 12 MCG/HR PT72 609474 FENTANYL Inactive FENTANYL 25 MCG/HR PT72 Apply to clean skin and change every 72 hours. 2013/ 05/22 FENTANYL 25 MCG/HR PT72 386743 FENTANYL Inactive Advance Directives Directive Description Start [...] mg/dL Encounters Code Encounter Date Provider Facility CPT-61636 Level 4 Est. Patient 18:47:35 CHEMICAL MILLING PROCESSOR Jonel Hemphill MD [facility] CPT-01308 Level 4 Est. Patient 10:04:48 CHEMICAL MILLING PROCESSOR Jonel Hemphill MD [facility] CPT-91706 Level 3 Est. Patient 19:05:03 CDT Jonel Hemphill MD [facility] CPT-67698 Level 3 Est. Patient 17:30:47 CDT Kevin Link MD [facility]-06861 Level 3 Est. Patient 18:04:07 CDT Jonel Hemphill MD [facility] CPT-13016 Level 3 Est. Patient 17:18:03 CDT Jonel Hemphill MD [facility] CPT-66982 Level 3 Est. Patient 21:58:03 CHEMICAL MILLING PROCESSOR Jonel Hemphill MD [facility] CPT-64679 Level 4 Est. Patient 18:03:14 CDT Jonel [facility]-48645 Level 4 Est. Patient 13:24:53 CDT Jonel [facility]-03826 Level 4 Est. Patient 09:15:44 CDT Jonel [facility]-98827 Level 4 Est. Patient 19:16:01 CDT [facility]78617 Level 4 Est. Patient 11:25:16 CDT Jonel Hemphill MD [facility] CPT-41916 Level 4 Est. Patient 09:00:40 CDT [facility]-82907 Level 4 Est. Patient 14:53:58 CDT Jonel Hemphill MD [facility]-01702 Level 4 Est. Patient 22:59:01 CDT Jonel Hemphill MD [facility]-71640 Level 4 Est. Patient 09:29:57 CDT Jonel Hemphill MD [facility]-95887 Level 4 Est. Patient 12:35:53 CHEMICAL MILLING PROCESSOR Jonel Hemphill MD [facility]-52613 Level 4 Est. Patient 22:36:09 CHEMICAL MILLING PROCESSOR Jonel Hemphill MD [facility]-51369 Level 2 Est. Patient 15:14:15 CHEMICAL MILLING PROCESSOR Mayco Shah APRN [facility]-87620 Level 4 Est. Patient 10:36:22 CHEMICAL MILLING PROCESSOR Jonel Hemphill MD [facility] CPT-61249 Level 4 Est. Patient 22:01:13 CHEMICAL MILLING PROCESSOR Jonel Hemphill MD [facility]-18372 Level 3 Est. Patient 21:50:37 CHEMICAL MILLING PROCESSOR Jnoel Hemphill MD [facility] CPT-56945 Level 4 Est. Patient 15:02:43 CDT Rubin Pierre MD [facility]-60663 Level 4 Est. Patient 14:27:35 CDT Jonel Hemphill MD [facility]-19461 Level 4 Est. Patient 12:41:17 CDT Jonel Hemphill MD [facility]-84708 Level 4 Est. Patient 16:18:55 CDT Jonel Hemphill MD [facility] CPT-93268 Level 4 Est. Patient 17:58:05 CDT Jonel Hemphill MD [facility] CPT-08040 Level 4 Est. Patient 22:10:06 CDT Jonel Hemphill MD [facility] CPT-95489 Level 4 Est. Patient 13:22:09 CDT Jonel Hemphill MD [facility] CPT-70692 Level 4 Est. Patient 22:52:17 CHEMICAL MILLING PROCESSOR Jonel Hemphill MD [facility] CPT-21367 Level 3 Est. Patient 22:34:10 CHEMICAL MILLING PROCESSOR Jonel Hemphill MD [facility] CPT-50225 Level 4 Est. Patient 07:49:20 CHEMICAL MILLING PROCESSOR Jonel Hemphill MD [facility] Skilled CPT-23336 Level 3 Est. Patient 08:28:27 CHEMICAL MILLING PROCESSOR Jonel Hemphill MD [facility] Procedures Code Procedure Name Date Entry Date Standard Description CPT-10121 Level 3 Mcfp 17:57:17 CHEMICAL MILLING PROCESSOR CPT-17704 Level 3 Mcfp 21:14:15 CHEMICAL MILLING PROCESSOR CPT-95800 Level 3 Mcfp 15:38:24 CDT CPT-70561 Level 3 Mcfp 08:18:30 CDT CPT-75599 Level 3 Mcfp 19:03:14 CDT CPT-04437 Level 3 Mcfp 17:42:11 CDT CPT-37684 Level 3 Mcfp 16:04:10 CDT CPT-89905 Level 3 Mcfp 19:38:15 CHEMICAL MILLING PROCESSOR CPT-60783 Level 3 Mcfp 19:28:48 CHEMICAL MILLING PROCESSOR CPT-09802 Level 3 Mcfp 18:02:20 CHEMICAL MILLING PROCESSOR CPT-36566 Level 3 Mcfp 15:02:14 CHEMICAL MILLING PROCESSOR CPT-87803 Level 3 Mcfp 12:25:37 CDT CPT-42032 Level 3 Mcfp 12:48:39 CDT CPT-26872 Level 3 Mcfp 17:39:14 CDT CPT-07347 Level 3 Mcfp 13:32:58 CDT CPT-19708 Level 3 Mcfp 17:43:43 CDT CPT-37099 Level 3 Mcfp 12:03:33 CHEMICAL MILLING PROCESSOR CPT-45158 Level 3 Mcfp 18:47:28 CHEMICAL MILLING PROCESSOR CPT-29961 Level 3 Mcfp 17:35:26 CHEMICAL MILLING PROCESSOR CPT-39944 Level 3 Mcfp 18:44:49 CHEMICAL MILLING PROCESSOR CPT-87247 Level 3 Mcfp 18:17:33 CDT CPT-46686 Level 3 Mcfp 09:25:33 CDT CPT-16865 Level 3 Mcfp 19:11:57 CDT CPT-01217 Level 3 Mcfp 09:25:52 CDT CPT-44556 Level 3 Mcfp 14:23:59 CDT CPT-07254 Level 3 Mcfp 12:09:43 CDT CPT-48990 Level 3 Mcfp 09:37:40 CDT CPT-54944 Level 3 Mcfp 18:23:02 CDT CPT-18204 Level 3 Mcfp 14:09:06 CDT CPT-71555 Level 3 Mcfp 12:43:27 CHEMICAL MILLING PROCESSOR CPT-90823 Postop F/U Visit 14:10:15 CHEMICAL MILLING PROCESSOR CPT-33959 [facility] 17:07:14 CHEMICAL MILLING PROCESSOR CPT-55181 Level 3 Mcfp 16:14:37 CHEMICAL MILLING PROCESSOR CPT-42754 Port a cath flush 11:47:42 CDT CPT-34223 Port a cath flush 08:29:49 CDT CPT-OV Office Visit 14:27:58 CHEMICAL MILLING PROCESSOR
--- OUTSIDE RECORDS SUMMARY | 2016-08-07 12:27 | XMS REPORT | Clinical Summary ---
Author Author Admin, KARLAE Organization [facility] Address Unknown Phone Unavailable Allergies, Adverse Reactions, Alerts Allergy Name Reaction Description Start Date Severity Status Provider PENICILLIN Critical Active Alvajaida Giles RMA Conditions or Problems Problem Name 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, STAMPING PRESS OPERATOR V58.69 Resolved Jonel Hemphill MD Long-term (current) use of other medications C V A / STROKE 436 Active Gregor Giles RMA Acute, but ill-defined, cerebrovascular disease C O P D 496 Active Gregor Giles RMA Chronic airway obstruction, not elsewhere classified DIABETES, TYPE 2 250.00 Resolved Joenl Hemphill MD Diabetes mellitus without mention of complication, type II or unspecified type, not stated as uncontrolled SEIZURE DISORDER 780.39 Active Gregor Giles RMA Other convulsions CORONARY HEART DISEASE 414.00 Resolved Jonel Hemphill MD Coronary atherosclerosis of unspecified type of vessel, reno-sparks or graft FH DIABETES V18.0 Resolved Jonel [...] Coronary atherosclerosis of unspecified type of vessel, reno-sparks or graft CONSTIPATION 564.00 Resolved Jonel Hemphill [...] abscess of leg, except foot 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 USE, STAMPING PRESS OPERATOR ICD-V58.69 Inactive Jonel Hemphill MD DIABETES, [...] ORAL TABS 1 daily for gout. FEBUXOSTAT 06957855457 Active Marleni Romero Active HYDROCODONE-ACETAMINOPHEN 7.5-325 MG TABS 1 TAB PO Q 6 HRS PRN HYDROCODONE-ACETAMINOPHEN 27161535212 Active Jonel Hemphill MD Active METFORMIN HCL 1000 MG TABS 1 tablet by mouth twice daily METFORMIN HCL 33759282833 Active Marleni Romero Active FENTANYL 12 MCG/HR PT72 Apply to clean, dry skin and change every 72 hours FENTANYL 36174925220 Active Mattie Gates APRN Active KLOR-CON 20 MEQ ORAL PACK 1 BY MOUTH DAILY POTASSIUM CHLORIDE 96420741765 Active Marleni Romero Active A+D FIRST AID EXT OINT APPLY OINTMENT AND RUFINO WRAPS TO LOWER EXTEREMETIES DAILY SKIN PROTECTANTS, MISC. 32682132535 Active Jonel Hemphill MD Active NYSTATIN 345716 UNIT/GM EXT OINT APPLY PRN TID TO GAULDING/RASH IN ABDOMINAL FOLDS NYSTATIN 64428270923 Active Jonel Hemphill MD Active ATIVAN 0.5 MG TABS Take 1 tablet 2x daily PRN LORAZEPAM 90006807713 Active Jonel Hemphill MD Active GABAPENTIN 400 MG ORAL CAPS 1 TAB BY MOUTH THREE TIMES DAILY GABAPENTIN 83797922212 Active Jonel Hemphill MD Active GABAPENTIN 300 MG CAPS 1 CAP PO TID GABAPENTIN 72697280287 No Longer Active Jonel Hemphill MD Active DILANTIN 100 MG ORAL CAPS 1 THREE TIMES DAILY FOR SEIZURES PHENYTOIN SODIUM EXTENDED 47035866374 Active Marleni Romero Active CPAP APPLY AT HS CPAP Active Jonel Hemphill MD Active METOPROLOL TARTRATE 50 MG ORAL TABS 1 TAB BY MOUTH TWICE DAILY METOPROLOL TARTRATE 75891252688 Active Jonel Hemphill MD Active LISINOPRIL 40 MG TABS 1 tablet by mouth twice daily, for blood pressure 03/31 LISINOPRIL 88604429761 Active Jonel Hemphill MD Active BUPROPION HCL ER (SR) 150 MG [id number] 1 twice a day for depression BUPROPION HCL 55156003746 Active Jonel Hemphill MD Active MULTIVITAMINS CAPS 1 DAILY MULTIPLE VITAMIN 89386471083 Active Jonel Hemphill MD Active ZYLOPRIM 300 MG TAB 1 BY MOUTH DAILY ALLOPURINOL 25294906222 Active Jonel Hemphill MD Active HYDROCODONE-ACETAMINOPHEN 7.5-325 MG TABS 1 q 6 hrs prn HYDROCODONE-ACETAMINOPHEN 00032349553 No Longer Active Jonel Hemphill MD Active DILANTIN 100 MG CAPS 3 cap tid PHENYTOIN SODIUM EXTENDED 30863601437 No Longer Active Jonel Hemphill MD Active BUDEPRION SR 150 MG [id number] 1 bid BUPROPION HCL 70455700452 No Longer Active Jonel Hemphill MD Active ALLOPURINOL 300 MG TABS 1 qd ALLOPURINOL 45707881181 No Longer Active Jonel Hemphill MD Active COZAAR 100 MG TABS 1 qd LOSARTAN POTASSIUM 98250897697 No Longer Active Jonel Hemphill MD Active CVS VITAMIN C 500 MG TABS 1 po daily ASCORBIC ACID 13958815647 No Longer Active Jonel Hemphill MD Active MIRALAX POWD 17 gms in 4 oz water or juice daily POLYETHYLENE GLYCOL 3350 04569599628 No Longer Active Jonel Hemphill MD Active POTASSIUM CHLORIDE CHELA ER 20 MEQ CR-TABS 1 tab PO daily POTASSIUM CHLORIDE CHELA CR 81310601524 No Longer Active Jonel Hemphill MD Active AMBIEN 10 MG TAB 1 tab by mouth at bedtime as needed for sleep ZOLPIDEM TARTRATE 55296057372 No Longer Active Jonel Hemphill MD Active SULFAMETHOXAZOLE-TMP DS 800-160 MG TABS 1 TAB PO BID SULFAMETHOXAZOLE-TRIMETHOPRIM 54391674550 No Longer Active Jonel Hemphill MD Active NORCO 5-325 MG TABS 1-2 TAB Q 6 HRS PRN HYDROCODONE- ACETAMINOPHEN 45519688821 Active Jonel Hemphill MD Active LEVEMIR 100 UNIT/ML SOLN 5 units sub-q at bedtime INSULIN DETEMIR 63841232274 No Longer Active Tova Perez Active MOBIC 15 MG TABS 1 tab PO daily for arthritis pain MELOXICAM 78420056373 No Longer Active Tova Perez Active GLUCAGEN 1 MG SOLR INJECT 1MG IM IF BS LESS THAN 60 & RES. IS UNABLE TO SWALLOW GLUCAGON HCL (RDNA) 64491535525 No Longer Active Tova Perez Active CVS MILK OF MAGNESIA 1200 MG/15ML SUSP 30 ml daily for constipation MAGNESIUM HYDROXIDE 86979598648 No Longer Active Tova Perez Active IMDUR 120 MG [id number] 1 qd ISOSORBIDE MONONITRATE 53249386959 No Longer Active Tova Perez Active PHENYTOIN 50 MG CHEW 1 TAB PO BID PHENYTOIN 08067131577 Active Tova Perez Active MECLIZINE HCL 25 MG CHEW TAB 1 four times a day as needed for dizziness 02/21 MECLIZINE HCL 90699370779 Active Tova Perez Active NEURONTIN 400 MG CAPS Take one by mouth 3 times daily, morning, afternoon and evening.] GABAPENTIN 04814821599 No Longer Active Tova Perez Active ANTIVERT 25 MG TABS 1 q 6 hrs prn MECLIZINE HCL 94787076832 No Longer Active Jonel Hemphill MD Active CLONIDINE HCL 0.2 MG TABS 1 q 8 hrs as needed -greater than 160-htn CLONIDINE HCL 81983435699 No Longer Active Jonel Hemphill MD Active AMBIEN 10 MG TABS 1 q hs prn ZOLPIDEM TARTRATE 88681459723 No Longer Active Jonel Hemphill MD Active GNP THERAPEUTIC-M TABS 1 qd MULTIPLE VITAMINS- MINERALS 67228801260 No Longer Active Jonel Hemphill MD Active METOPROLOL TARTRATE 50 MG TABS 1 bid METOPROLOL TARTRATE 26769248054 No Longer Active Jonel Hemphill MD Active METFORMIN HCL 500 MG TABS 1 bod with food METFORMIN HCL 29175026253 No Longer Active Jonel Hemphill MD Active LISINOPRIL 40 MG TABS 1 qd LISINOPRIL 97194472271 No Longer Active Jonel Hemphill MD Active HYDROCHLOROTHIAZIDE 25 MG TABS 1 qd HYDROCHLOROTHIAZIDE 80722883264 No Longer Active Jonel Hemphill MD Active DURAGESIC-25 25 MCG/HR PT72 place 1 patch on the skin q72hrs for pain FENTANYL 11236464982 No Longer Active Jonel Hemphill MD Active FENTANYL 75 MCG/HR PT72 place 1 patch on skin q72hrs fr pain 2012 FENTANYL 47665301028 No Longer Active Jonel Hemphill MD Active LASIX 20 MG TABS 1 tab PO q morning FUROSEMIDE 29144737021 Active Jonel Hemphill MD Active FUROSEMIDE 40 MG TABS 1 q am FUROSEMIDE 99286568073 No Longer Active Jonel Hemphill MD Active HEPARIN (PORCINE) LOCK FLUSH 100 UNIT/ML SOLN Flush port a cath monthly every three week on with Heparin and NS HEPARIN LOCK FLUSH 33259005724 Active Jonel Hemphill MD Active FENTANYL 100 MCG/HR PT72 Apply every 3 days FENTANYL 81637345645 Active Mattie Gates APRN Active FENTANYL 25 MCG/HR PT72 Apply to clean skin and change every 72 hours. 07/03 FENTANYL 82066360927 No Longer Active Jonel Hemphill MD Active FENTANYL 50 MCG/HR PT72 place 1 patch on skin q72 hours FENTANYL 19468896518 No Longer Active Mayco Shah APRN Active CELEXA 20 MG TABS Take 1 tablet 1x daily CITALOPRAM HYDROBROMIDE 56932826956 Active Jonel Hemphill MD Active DURAGESIC-12 12 MCG/HR PT72 APPLY PATCH TO SKIN AND CHANGE EVERY 72 HOURS, ROTATE SITES FENTANYL 37853701259 No Longer Active Fozia HERNANDEZ Active FUROSEMIDE 20 MG TABS 1 qd FUROSEMIDE 10322250478 No Longer Active Mahogany Weimar Active ADULT ASPIRIN EC LOW STRENGTH 81 MG TBEC 1 qd ASPIRIN 09502119736 Active MARY Perez Active FUROSEMIDE 20 MG TABS 1 qd FUROSEMIDE 20 MG TABS 925109 FUROSEMIDE Inactive DURAGESIC-12 12 MCG/HR PT72 APPLY PATCH TO SKIN AND CHANGE EVERY 72 HOURS, ROTATE SITES DURAGESIC-12 12 MCG/HR PT72 919862 FENTANYL Inactive FENTANYL 50 MCG/HR PT72 place 1 patch on skin q72 hours FENTANYL 50 MCG/HR PT72 759083 FENTANYL Inactive FUROSEMIDE 40 MG TABS 1 q am FUROSEMIDE 40 MG TABS 804964 FUROSEMIDE Inactive FENTANYL 75 MCG/HR PT72 place 1 patch on skin q72hrs fr pain 2012 FENTANYL 75 MCG/HR PT72 140095 FENTANYL Inactive DURAGESIC-25 25 MCG/HR PT72 place 1 patch on the skin q72hrs for pain DURAGESIC-25 25 MCG/HR PT72 577849 FENTANYL Inactive HYDROCHLOROTHIAZIDE 25 MG TABS 1 qd HYDROCHLOROTHIAZIDE 25 MG TABS 584738 HYDROCHLOROTHIAZIDE Inactive LISINOPRIL 40 MG TABS 1 qd LISINOPRIL 40 MG TABS 910207 LISINOPRIL Inactive METFORMIN HCL 500 MG TABS 1 bod with food METFORMIN HCL 500 MG TABS 632339 METFORMIN HCL Inactive METOPROLOL TARTRATE 50 MG TABS 1 bid METOPROLOL TARTRATE 50 MG TABS 002744 METOPROLOL TARTRATE Inactive GNP THERAPEUTIC-M TABS 1 qd GNP THERAPEUTIC-M TABS MULTIPLE VITAMINS-MINERALS Inactive AMBIEN 10 MG TABS 1 q hs prn AMBIEN 10 MG TABS 753111 ZOLPIDEM TARTRATE Inactive CLONIDINE HCL 0.2 MG TABS 1 q 8 hrs as needed -greater than 160-htn CLONIDINE HCL 0.2 MG TABS 482609 CLONIDINE HCL Inactive ANTIVERT 25 MG TABS 1 q 6 hrs prn ANTIVERT 25 MG TABS MECLIZINE HCL Inactive NEURONTIN 400 MG CAPS Take one by mouth 3 times daily, morning, afternoon and evening.] NEURONTIN 400 MG CAPS 677871 GABAPENTIN Inactive IMDUR 120 MG [id number] 1 qd IMDUR 120 MG [id number] ISOSORBIDE MONONITRATE Inactive CVS MILK OF MAGNESIA [...] for arthritis pain MOBIC 15 MG TABS 816871 MELOXICAM Inactive LEVEMIR 100 UNIT/ML SOLN 5 units sub-q at bedtime LEVEMIR 100 UNIT/ML SOLN INSULIN DETEMIR Inactive SULFAMETHOXAZOLE-TMP DS 800-160 MG TABS 1 TAB PO BID SULFAMETHOXAZOLE-TMP DS 800-160 MG TABS 740748 SULFAMETHOXAZOLE-TRIMETHOPRIM Inactive AMBIEN 10 MG TAB 1 tab by mouth at bedtime as needed for sleep AMBIEN 10 MG TAB 039091 ZOLPIDEM TARTRATE Inactive POTASSIUM CHLORIDE CHELA ER 20 MEQ CR-TABS 1 tab PO daily POTASSIUM CHLORIDE CHELA ER 20 MEQ CR-TABS POTASSIUM CHLORIDE CHELA CR Inactive MIRALAX POWD 17 gms in 4 oz water or juice daily MIRALAX POWD 250414 POLYETHYLENE GLYCOL 3350 Inactive CVS VITAMIN C 500 MG TABS 1 po daily CVS VITAMIN C 500 MG TABS 563670 ASCORBIC ACID Inactive COZAAR 100 MG TABS 1 qd COZAAR 100 MG TABS 421073 LOSARTAN POTASSIUM Inactive ALLOPURINOL 300 MG TABS 1 qd ALLOPURINOL 300 MG TABS 569731 ALLOPURINOL Inactive BUDEPRION SR 150 MG [id number] 1 bid BUDEPRION SR 150 MG [id number] BUPROPION HCL Inactive DILANTIN 100 MG CAPS 3 cap tid DILANTIN 100 MG CAPS 041162 PHENYTOIN SODIUM EXTENDED Inactive HYDROCODONE-ACETAMINOPHEN 7.5-325 MG TABS 1 q 6 hrs prn HYDROCODONE-ACETAMINOPHEN 7.5-325 MG TABS 921495 HYDROCODONE- ACETAMINOPHEN Inactive GABAPENTIN 300 MG CAPS 1 CAP PO TID GABAPENTIN 300 MG CAPS 278342 GABAPENTIN Inactive FENTANYL 25 MCG/HR PT72 Apply to clean skin and change every 72 hours. 07/03 FENTANYL 25 MCG/HR PT72 388141 FENTANYL Inactive Advance Directives Directive Description Start [...] flowsheet - Chemistry alanine aminotransferase (SGPT), serum 13 U/L alkaline phosphatase, serum 51 U/L sodium, serum 143 mmol/L blood glucose 147 mg/dL creatinine, serum 0.19 mg/dL aspartate aminotransferase (SGOT), serum 13 U/L potassium, serum 3.9 mmol/L sodium, serum 139 mmol/L alkaline phosphatase, serum 40 U/L potassium, serum 4.6 mmol/L sodium, serum 144 mmol/L blood glucose 187 mg/dL creatinine, serum 0.85 mg/dL aspartate aminotransferase (SGOT), serum 33 U/L hemoglobin A1C, blood, as % of total hemoglobin 7.2 % alkaline phosphatase, serum 60 U/L alanine aminotransferase (SGPT), serum 42 U/L potassium, serum 4.1 mmol/L blood glucose 190 mg/dL creatinine, serum 1.26 mg/dL aspartate aminotransferase (SGOT), serum 14 U/L alanine aminotransferase (SGPT), serum 23 U/L Chart Maintenance: Outside labs entered on flowsheet - Hematology platelet count 113 10*3/mm3 leukocyte count, blood 6.9 10*3/mm3 hemoglobin, blood 14.4 g/dL Lab Report: HGBA1C - Chemistry hemoglobin A1C, blood, as % of total hemoglobin 6.8 % 4.3-6.0 Encounters Code Encounter Date Provider Facility CPT-85141 Level 3 Est. Patient 17:30:47 CDT Kevin Link MD [facility]-44388 Level 3 Est. Patient 18:04:07 CDT Jonel Hemphill MD [facility] CPT-79334 Level 3 Est. Patient 17:18:03 CDT Jonel Hemphill MD [facility]-52438 Level 3 Est. Patient 21:58:03 INTERVENTION ANALYST Jonel Hemphill MD [facility] CPT-10795 Level 4 Est. Patient 18:03:14 CDT [facility]-50302 Level 4 Est. Patient 13:24:53 CDT Jonel Yeager [facility]-18568 Level 4 Est. Patient 09:15:44 CDT Jonel Yeager [facility]50524 Level 4 Est. Patient 19:16:01 CDT Jonel Yeager [facility]-88868 Level 4 Est. Patient 11:25:16 CDT Jonel Hemphill MD [facility] CPT-03833 Level 4 Est. Patient 09:00:40 CDT Jonel Hemphill MD [facility] CPT-96365 Level 4 Est. Patient 14:53:58 CDT Jonel Hemphill MD [facility] CPT-97137 Level 4 Est. Patient 22:59:01 CDT Jonel Hemphill MD [facility]-05014 Level 4 Est. Patient 09:29:57 CDT Jonel Hemphill MD [facility]-47957 Level 4 Est. Patient 12:35:53 INTERVENTION ANALYST Jonel Hemphill MD [facility]-95975 Level 4 Est. Patient 22:36:09 INTERVENTION ANALYST Jonel Hemphill MD [facility]-02490 Level 2 Est. Patient 15:14:15 INTERVENTION ANALYST Mayco Shah APRN [facility] CPT-69494 Level 4 Est. Patient 10:36:22 INTERVENTION ANALYST Jonel Hemphill MD [facility] CPT-31821 Level 4 Est. Patient 22:01:13 INTERVENTION ANALYST Jonel Hemphill MD [facility]-19997 Level 3 Est. Patient 21:50:37 INTERVENTION ANALYST Jonel Hemphill MD [facility] CPT-34213 Level 4 Est. Patient 15:02:43 CDT Rubin Pierre MD [facility] CPT-43954 Level 4 Est. Patient 14:27:35 CDT Jonel Hemphill MD [facility]-22640 Level 4 Est. Patient 12:41:17 CDT Jonel Hemphill MD [facility]-44149 Level 4 Est. Patient 16:18:55 CDT Jonel Hemphill MD [facility]-53411 Level 4 Est. Patient 17:58:05 CDT Jonel Hemphill MD [facility] CPT-19180 Level 4 Est. Patient 22:10:06 CDT Jonel Hemphill MD [facility] CPT-22813 Level 4 Est. Patient 13:22:09 CDT Jonel Hemphill MD [facility] CPT-07450 Level 4 Est. Patient 22:52:17 INTERVENTION ANALYST Jonel Hemphill MD [facility] CPT-65312 Level 3 Est. Patient 22:34:10 INTERVENTION ANALYST Jonel Hemphill MD [facility] CPT-07112 Level 4 Est. Patient 07:49:20 INTERVENTION ANALYST Jonel Hemphill MD [facility] Skilled CPT-27292 Level 3 Est. Patient 08:28:27 INTERVENTION ANALYST Jonel Hemphill MD [facility] Procedures Code Procedure Name Date Entry Date Standard Description CPT-17630 Level 3 Fpc 17:42:11 CDT CPT-76768 Level 3 Fpc 16:04:10 CDT CPT-49425 Level 3 Fpc 19:38:15 INTERVENTION ANALYST CPT-21423 Level 3 Fpc 19:28:48 INTERVENTION ANALYST CPT-84270 Level 3 Fpc 18:02:20 INTERVENTION ANALYST CPT-14897 Level 3 Fpc 15:02:14 INTERVENTION ANALYST CPT-78300 Level 3 Fpc 12:25:37 CDT CPT-76533 Level 3 Fpc 12:48:39 CDT CPT-48670 Level 3 Fpc 17:39:14 CDT CPT-75574 Level 3 Fpc 13:32:58 CDT CPT-12513 Level 3 Fpc 17:43:43 CDT CPT-97394 Level 3 Fpc 12:03:33 INTERVENTION ANALYST CPT-16470 Level 3 Fpc 18:47:28 INTERVENTION ANALYST CPT-15449 Level 3 Fpc 17:35:26 INTERVENTION ANALYST CPT-93117 Level 3 Fpc 18:44:49 INTERVENTION ANALYST CPT-35082 Level 3 Fpc 18:17:33 CDT CPT-35460 Level 3 Fpc 09:25:33 CDT CPT-73075 Level 3 Fpc 19:11:57 CDT CPT-17525 Level 3 Fpc 09:25:52 CDT CPT-12413 Level 3 Fpc 14:23:59 CDT CPT-42860 Level 3 Fpc 12:09:43 CDT CPT-31674 Level 3 Fpc 09:37:40 CDT CPT-63922 Level 3 Fpc 18:23:02 CDT CPT-59168 Level 3 Fpc 14:09:06 CDT CPT-53249 Level 3 Fpc 12:43:27 INTERVENTION ANALYST CPT-38018 Postop F/U Visit 14:10:15 INTERVENTION ANALYST CPT-17565 [facility] 17:07:14 INTERVENTION ANALYST CPT-73209 Level 3 Fpc 16:14:37 INTERVENTION ANALYST CPT-41240 Port a cath flush 11:47:42 CDT CPT-33764 Port a cath flush 08:29:49 CDT CPT-OV Office Visit 14:27:58 INTERVENTION ANALYST
--- OUTSIDE RECORDS SUMMARY | 2016-08-07 12:28 | XMS REPORT | Clinical Summary ---
Author Author Admin, [place] Organization [facility] Address Unknown Phone Unavailable Allergies, Adverse 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, POWDER PRESS OPERATOR V58.69 Resolved Jonel Hemphill MD [...] Obstructive sleep apnea (adult) (pediatric) 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 USE, POWDER PRESS OPERATOR ICD-V58.69 Inactive Jonel Hemphill MD DIABETES, TYPE 2 ICD-250.00 Inactive Jonel Hemphill MD CORONARY HEART DISEASE ICD-414.00 Inactive Jonel Hemphill MD FH DIABETES ICD-V18.0 Inactive Jonel Hemphill MD FH STROKE ICD-V17.1 Inactive Jonel Hempihll MD FAMILY HISTORY COLON CANCER-MOTHER ICD-V16.0 Inactive [...] 1 tablet by mouth daily CITALOPRAM HYDROBROMIDE 10274859811 Active Marleni Romero Active ZOFRAN 4 MG TABS 1 po q6hr PRN Nausea ONDANSETRON HCL 52966600561 Active Jonel Hemphill MD Active XARELTO 20 MG ORAL TABS 1 daily RIVAROXABAN 64955497309 Active Jonel Hemphill MD Active JANUVIA 100 MG ORAL TABS 2 tabs daily SITAGLIPTIN PHOSPHATE 23452832065 Active Jonel Hemphill MD Active CELEXA 20 MG TABS Take 1 tablet 1x daily CITALOPRAM HYDROBROMIDE 11778817828 No Longer Active Jonel Hemphill MD Active ATIVAN 0.5 MG TABS Take 1 tablet 2x daily PRN LORAZEPAM 07202947102 No Longer Active Jonel Hemphill MD Active FUROSEMIDE 80 MG ORAL TABS 1 daily FUROSEMIDE 79642242285 Active Jonel Hemphill MD Active MECLIZINE HCL 25 MG CHEW TAB 1 four times a day as needed for dizziness 02/21 MECLIZINE HCL 21058839659 No Longer Active Jonel Hemphill MD Active ZYLOPRIM 300 MG TAB 1 BY MOUTH DAILY ALLOPURINOL 31078632003 No Longer Active Jonel Hemphill MD Active METOPROLOL TARTRATE 50 MG ORAL TABS 1 TAB BY MOUTH TWICE DAILY METOPROLOL TARTRATE 32118293457 No Longer Active Jonel Hemphill MD Active GABAPENTIN 400 MG ORAL CAPS 1 TAB BY MOUTH THREE TIMES DAILY 2015 GABAPENTIN 23482163005 No Longer Active Jonel Hemphill MD Active ULORIC 40 MG ORAL TABS 1 daily for gout. FEBUXOSTAT 65578479557 Active Marleni Romero Active HYDROCODONE-ACETAMINOPHEN 7.5-325 MG TABS 1 TAB PO Q 6 HRS PRN HYDROCODONE-ACETAMINOPHEN 70641502576 Active Jonel Hemphill MD Active METFORMIN HCL 1000 MG TABS 1 tablet by mouth twice daily METFORMIN HCL 03203373704 Active Marleni Romero Active FENTANYL 12 MCG/HR PT72 Apply to clean, dry skin and change every 72 hours FENTANYL 14903920900 Active Jonel Hemphill MD Active KLOR-CON 20 MEQ ORAL PACK 1 BY MOUTH DAILY POTASSIUM CHLORIDE 05134267156 Active Marleni Romero Active A+D FIRST AID EXT OINT APPLY OINTMENT AND RUFINO WRAPS TO LOWER EXTEREMETIES DAILY SKIN PROTECTANTS, MISC. 35927391820 Active Jonel Hemphill MD Active NYSTATIN 364939 UNIT/GM EXT OINT APPLY PRN TID TO GAULDING/RASH IN ABDOMINAL FOLDS NYSTATIN 89338741089 Active Jonel Hemphill MD Active GABAPENTIN 300 MG CAPS 1 CAP PO TID GABAPENTIN 06062861757 No Longer Active Jonel Hemphill MD Active DILANTIN 100 MG ORAL CAPS 1 THREE TIMES DAILY FOR SEIZURES PHENYTOIN SODIUM EXTENDED 88956013323 Active Marleni Tenoriokristin Active CPAP APPLY AT HS CPAP Active Jonel Hemphill MD Active LISINOPRIL 40 MG TABS 1 tablet by mouth twice daily, for blood pressure 03/31 LISINOPRIL 17421507077 Active Jonel Hemphill MD Active BUPROPION HCL ER (SR) 150 MG [id number] 1 twice a day for depression BUPROPION HCL 32902811340 Active Jonel Hemphill MD Active MULTIVITAMINS CAPS 1 DAILY MULTIPLE VITAMIN 56500213341 Active Jonel Hemphill MD Active HYDROCODONE-ACETAMINOPHEN 7.5-325 MG TABS 1 q 6 hrs prn HYDROCODONE-ACETAMINOPHEN 52254925991 No Longer Active Jonel Hemphill MD Active DILANTIN 100 MG CAPS 3 cap tid PHENYTOIN SODIUM EXTENDED 86549640607 No Longer Active Jonel Hemphill MD Active BUDEPRION SR 150 MG [id number] 1 bid BUPROPION HCL 32828668851 No Longer Active Jonel Hemphill MD Active ALLOPURINOL 300 MG TABS 1 qd ALLOPURINOL 69097155418 No Longer Active Jonel Hemphill MD Active COZAAR 100 MG TABS 1 qd LOSARTAN POTASSIUM 33365488973 No Longer Active Jonel Hemphill MD Active CVS VITAMIN C 500 MG TABS 1 po daily ASCORBIC ACID 49563525120 No Longer Active Joenl Hemphill MD Active MIRALAX POWD 17 gms in 4 oz water or juice daily POLYETHYLENE GLYCOL 3350 12141097940 No Longer Active Jonel Hemphill MD Active POTASSIUM CHLORIDE CHELA ER 20 MEQ CR-TABS 1 tab PO daily POTASSIUM CHLORIDE CHELA CR 89737693316 No Longer Active Jonel Hemphill MD Active AMBIEN 10 MG TAB 1 tab by mouth at bedtime as needed for sleep ZOLPIDEM TARTRATE 17308716133 No Longer Active Jonel Hemphill MD Active SULFAMETHOXAZOLE-TMP DS 800-160 MG TABS 1 TAB PO BID SULFAMETHOXAZOLE-TRIMETHOPRIM 93330592552 No Longer Active Jonel Hemphill MD Active NORCO 5-325 MG TABS 1-2 TAB Q 6 HRS PRN HYDROCODONE- ACETAMINOPHEN 65225391575 Active Jonel Hemphill MD Active LEVEMIR 100 UNIT/ML SOLN 5 units sub-q at bedtime INSULIN DETEMIR 67792016899 No Longer Active Tova Perez Active MOBIC 15 MG TABS 1 tab PO daily for arthritis pain MELOXICAM 33285391443 No Longer Active Tova Perez Active GLUCAGEN 1 MG SOLR INJECT 1MG IM IF BS LESS THAN 60 & RES. IS UNABLE TO SWALLOW GLUCAGON HCL (RDNA) 06929235429 No Longer Active Tova Perez Active [facility] MILK OF MAGNESIA 1200 MG/15ML SUSP 30 ml daily for constipation MAGNESIUM HYDROXIDE 19546448936 No Longer Active Tova Perez Active IMDUR 120 MG [id number]-ASS 1 qd ISOSORBIDE MONONITRATE 59943991114 No Longer Active Tova Perez Active PHENYTOIN 50 MG CHEW 1 TAB PO BID PHENYTOIN 37503977297 Active Tova Perez Active NEURONTIN 400 MG CAPS Take one by mouth 3 times daily, morning, afternoon and evening.] GABAPENTIN 77241966499 No Longer Active Tova Perez Active ANTIVERT 25 MG TABS 1 q 6 hrs prn MECLIZINE HCL 42899516604 No Longer Active Jonel Hemphill MD Active CLONIDINE HCL 0.2 MG TABS 1 q 8 hrs as needed -greater than 160-htn CLONIDINE HCL 98439021469 No Longer Active Jonel Hemphill MD Active AMBIEN 10 MG TABS 1 q hs prn ZOLPIDEM TARTRATE 47836934783 No Longer Active Jonel Hemphill MD Active GNP THERAPEUTIC-M TABS 1 qd MULTIPLE VITAMINS- MINERALS 56244746331 No Longer Active Jonel Hemphill MD Active METOPROLOL TARTRATE 50 MG TABS 1 bid METOPROLOL TARTRATE 48847836084 No Longer Active Jonel Hemphill MD Active METFORMIN HCL 500 MG TABS 1 bod with food METFORMIN HCL 71258936955 No Longer Active Jonel Hemphill MD Active LISINOPRIL 40 MG TABS 1 qd LISINOPRIL 20101949543 No Longer Active Jonel Hemphill MD Active HYDROCHLOROTHIAZIDE 25 MG TABS 1 qd HYDROCHLOROTHIAZIDE 94300923121 No Longer Active Jonel Hemphill MD Active DURAGESIC-25 25 MCG/HR PT72 place 1 patch on the skin q72hrs for pain FENTANYL 15100640999 No Longer Active Jonel Hemphill MD Active FENTANYL 75 MCG/HR PT72 place 1 patch on skin q72hrs fr pain 2012 FENTANYL 95345816603 No Longer Active Jonel Hemphill MD Active FUROSEMIDE 40 MG TABS 1 q am FUROSEMIDE 11087209364 No Longer Active Jonel Hemphill MD Active HEPARIN (PORCINE) LOCK FLUSH 100 UNIT/ML SOLN Flush port a cath monthly every three week on with Heparin and NS HEPARIN LOCK FLUSH 65802970156 Active Jonel Hemphill MD Active FENTANYL 100 MCG/HR PT72 Apply every 3 days FENTANYL 64312360367 Active Jonel Hemphill MD Active FENTANYL 25 MCG/HR PT72 Apply to clean skin and change every 72 hours. 07/03 FENTANYL 59246776916 No Longer Active Jonel Hemphill MD Active FENTANYL 50 MCG/HR PT72 place 1 patch on skin q72 hours FENTANYL 70580877487 No Longer Active Mayco Shah APRN Active DURAGESIC-12 12 MCG/HR PT72 APPLY PATCH TO SKIN AND CHANGE EVERY 72 HOURS, ROTATE SITES FENTANYL 65594287499 No Longer Active Fozia HERNANDEZ Active FUROSEMIDE 20 MG TABS 1 qd FUROSEMIDE 21117472691 No Longer Active Mahogany Bolivar Active ADULT ASPIRIN EC LOW STRENGTH 81 MG TBEC 1 qd ASPIRIN 98663103570 Active MARY Perez Active FUROSEMIDE 20 MG TABS 1 qd FUROSEMIDE 20 MG TABS 489966 FUROSEMIDE Inactive DURAGESIC-12 12 MCG/HR PT72 APPLY PATCH TO SKIN AND CHANGE EVERY 72 HOURS, ROTATE SITES DURAGESIC-12 12 MCG/HR PT72 257062 FENTANYL Inactive FENTANYL 50 MCG/HR PT72 place 1 patch on skin q72 hours FENTANYL 50 MCG/HR PT72 700503 FENTANYL Inactive FUROSEMIDE 40 MG TABS 1 q am FUROSEMIDE 40 MG TABS 141397 FUROSEMIDE Inactive FENTANYL 75 MCG/HR PT72 place 1 patch on skin q72hrs fr pain 2012 FENTANYL 75 MCG/HR PT72 479297 FENTANYL Inactive DURAGESIC-25 25 MCG/HR PT72 place 1 patch on the skin q72hrs for pain DURAGESIC-25 25 MCG/HR PT72 747465 FENTANYL Inactive HYDROCHLOROTHIAZIDE 25 MG TABS 1 qd HYDROCHLOROTHIAZIDE 25 MG TABS 699139 HYDROCHLOROTHIAZIDE Inactive LISINOPRIL 40 MG TABS 1 qd LISINOPRIL 40 MG TABS 470053 LISINOPRIL Inactive METFORMIN HCL 500 MG TABS 1 bod with food METFORMIN HCL 500 MG TABS 443034 METFORMIN HCL Inactive METOPROLOL TARTRATE 50 MG TABS 1 bid METOPROLOL TARTRATE 50 MG TABS 670849 METOPROLOL TARTRATE Inactive GNP THERAPEUTIC-M TABS 1 qd GNP THERAPEUTIC-M TABS MULTIPLE VITAMINS-MINERALS Inactive AMBIEN 10 MG TABS 1 q hs prn AMBIEN 10 MG TABS 861355 ZOLPIDEM TARTRATE Inactive CLONIDINE HCL 0.2 MG TABS 1 q 8 hrs as needed -greater than 160-htn CLONIDINE HCL 0.2 MG TABS 028488 CLONIDINE HCL Inactive ANTIVERT 25 MG TABS 1 q 6 hrs prn ANTIVERT 25 MG TABS MECLIZINE HCL Inactive NEURONTIN 400 MG CAPS Take one by mouth 3 times daily, morning, afternoon and evening.] NEURONTIN 400 MG CAPS 768036 GABAPENTIN Inactive IMDUR 120 MG [id number] 1 qd IMDUR 120 MG [id number] ISOSORBIDE MONONITRATE Inactive CVS MILK OF MAGNESIA [...] for arthritis pain MOBIC 15 MG TABS 055487 MELOXICAM Inactive LEVEMIR 100 UNIT/ML SOLN 5 units sub-q at bedtime LEVEMIR 100 UNIT/ML SOLN INSULIN DETEMIR Inactive SULFAMETHOXAZOLE-TMP DS 800-160 MG TABS 1 TAB PO BID SULFAMETHOXAZOLE-TMP DS 800-160 MG TABS 044400 SULFAMETHOXAZOLE-TRIMETHOPRIM Inactive AMBIEN 10 MG TAB 1 tab by mouth at bedtime as needed for sleep AMBIEN 10 MG TAB 853693 ZOLPIDEM TARTRATE Inactive POTASSIUM CHLORIDE CHELA ER 20 MEQ CR-TABS 1 tab PO daily POTASSIUM CHLORIDE CHELA ER 20 MEQ CR-TABS POTASSIUM CHLORIDE CHELA CR Inactive MIRALAX POWD 17 gms in 4 oz water or juice daily MIRALAX POWD 767536 POLYETHYLENE GLYCOL 3350 Inactive CVS VITAMIN C 500 MG TABS 1 po daily CVS VITAMIN C 500 MG TABS 315430 ASCORBIC ACID Inactive COZAAR 100 MG TABS 1 qd COZAAR 100 MG TABS 691272 LOSARTAN POTASSIUM Inactive ALLOPURINOL 300 MG TABS 1 qd ALLOPURINOL 300 MG TABS 734146 ALLOPURINOL Inactive BUDEPRION SR 150 MG [id number] 1 bid BUDEPRION SR 150 MG [id number] BUPROPION HCL Inactive DILANTIN 100 MG CAPS 3 cap tid DILANTIN 100 MG CAPS 380973 PHENYTOIN SODIUM EXTENDED Inactive HYDROCODONE-ACETAMINOPHEN 7.5-325 MG TABS 1 q 6 hrs prn HYDROCODONE-ACETAMINOPHEN 7.5-325 MG TABS 459369 HYDROCODONE- ACETAMINOPHEN Inactive GABAPENTIN 300 MG CAPS 1 CAP PO TID GABAPENTIN 300 MG CAPS 623366 GABAPENTIN Inactive GABAPENTIN 400 MG ORAL CAPS 1 TAB BY MOUTH THREE TIMES DAILY 2015 GABAPENTIN 400 MG ORAL CAPS 097586 GABAPENTIN Inactive METOPROLOL TARTRATE 50 MG ORAL TABS 1 TAB BY MOUTH TWICE DAILY METOPROLOL TARTRATE 50 MG ORAL TABS 793149 METOPROLOL TARTRATE Inactive ZYLOPRIM 300 MG TAB 1 BY MOUTH DAILY ZYLOPRIM 300 MG TAB 888110 ALLOPURINOL Inactive MECLIZINE HCL 25 MG CHEW TAB 1 four times a day as needed for dizziness 02/21 MECLIZINE HCL 25 MG CHEW TAB 169830 MECLIZINE HCL Inactive ATIVAN 0.5 MG TABS Take 1 tablet 2x daily PRN ATIVAN 0.5 MG TABS 318355 LORAZEPAM Inactive CELEXA 20 MG TABS Take 1 tablet 1x daily CELEXA 20 MG TABS 268195 CITALOPRAM HYDROBROMIDE Inactive FENTANYL 25 MCG/HR PT72 Apply to clean skin and change every 72 hours. 07/03 FENTANYL 25 MCG/HR PT72 617844 FENTANYL Inactive Advance Directives Directive Description Start [...] 10*3/mm3 Encounters Code Encounter Date Provider Facility CPT-52775 Level 3 Est. Patient 19:05:03 CDT Jonel Hemphill MD [facility]-36883 Level 3 Est. Patient 17:30:47 CDT Kevin Link MD [facility]-63505 Level 3 Est. Patient 18:04:07 CDT Jonel Hemphill MD [facility] CPT-29430 Level 3 Est. Patient 17:18:03 CDT Jonel Hemphill MD [facility] CPT-03086 Level 3 Est. Patient 21:58:03 RECEIVING DISTRIBUTION STATION OPERATOR Jonel Hemphill MD [facility] CPT-12597 Level 4 Est. Patient 18:03:14 CDT Jonel Hemphill MD [facility]-61437 Level 4 Est. Patient 13:24:53 CDT Jonel Hemphill MD [facility]-19882 Level 4 Est. Patient 09:15:44 CDT Jonel Hemphill MD [facility]-52393 Level 4 Est. Patient 19:16:01 CDT Jonel Yeager of [facility]-40189 Level 4 Est. Patient 11:25:16 CDT Jonel Hemphill MD [facility] CPT-90530 Level 4 Est. Patient 09:00:40 CDT Jonel Hemphill MD [facility]-77917 Level 4 Est. Patient 14:53:58 CDT Jonel Hemphill MD [facility]-34686 Level 4 Est. Patient 22:59:01 CDT Jonel Hemphill MD [facility]-13425 Level 4 Est. Patient 09:29:57 CDT Jonel Hemphill MD [facility]-22239 Level 4 Est. Patient 12:35:53 RECEIVING DISTRIBUTION STATION OPERATOR Jonel Hemphill MD [facility] CPT-75178 Level 4 Est. Patient 22:36:09 RECEIVING DISTRIBUTION STATION OPERATOR Jonel Hemphill MD [facility]-18743 Level 2 Est. Patient 15:14:15 RECEIVING DISTRIBUTION STATION OPERATOR Mayco Shah APRN [facility] CPT-86702 Level 4 Est. Patient 10:36:22 RECEIVING DISTRIBUTION STATION OPERATOR Jonel Hemphill MD [facility] CPT-70191 Level 4 Est. Patient 22:01:13 RECEIVING DISTRIBUTION STATION OPERATOR Jonel Hemphill MD [facility]-89032 Level 3 Est. Patient 21:50:37 RECEIVING DISTRIBUTION STATION OPERATOR Jonel Hemphill MD [facility] CPT-39968 Level 4 Est. Patient 15:02:43 CDT Rubin Pierre MD [facility] CPT-73889 Level 4 Est. Patient 14:27:35 CDT Jonel Hemphill MD [facility]-70032 Level 4 Est. Patient 12:41:17 CDT Jonel Hemphill MD [facility]-77211 Level 4 Est. Patient 16:18:55 CDT Jonel Hemphill MD [facility]-78756 Level 4 Est. Patient 17:58:05 CDT Jonel Hemphill MD [facility]-12391 Level 4 Est. Patient 22:10:06 CDT Jonel Hemphill MD [facility]-43005 Level 4 Est. Patient 13:22:09 CDT Jonel Hemphill MD [facility]-03278 Level 4 Est. Patient 22:52:17 RECEIVING DISTRIBUTION STATION OPERATOR Jonel Hemphill MD [facility]-59978 Level 3 Est. Patient 22:34:10 RECEIVING DISTRIBUTION STATION OPERATOR Jonel Hemphill MD [facility]-95968 Level 4 Est. Patient 07:49:20 RECEIVING DISTRIBUTION STATION OPERATOR Jonel Hemphill MD [facility] Skilled CPT-55227 Level 3 Est. Patient 08:28:27 RECEIVING DISTRIBUTION STATION OPERATOR Jonel Hemphill MD [facility] Procedures Code Procedure Name Date Entry Date Standard Description CPT-02723 Level 3 [facility] 08:18:30 CDT CPT-01715 Level 3 [facility] 19:03:14 CDT CPT-82748 Level 3 [facility] 17:42:11 CDT CPT-74956 Level 3 [facility] 16:04:10 CDT CPT-35570 Level 3 [facility] 19:38:15 RECEIVING DISTRIBUTION STATION OPERATOR CPT-68101 Level 3 [facility] 19:28:48 RECEIVING DISTRIBUTION STATION OPERATOR CPT-09747 Level 3 [facility] 18:02:20 RECEIVING DISTRIBUTION STATION OPERATOR CPT-33119 Level 3 [facility] 15:02:14 RECEIVING DISTRIBUTION STATION OPERATOR CPT-46259 Level 3 [facility] 12:25:37 CDT CPT-14319 Level 3 [facility] 12:48:39 CDT CPT-03141 Level 3 [facility] 17:39:14 CDT CPT-01836 Level 3 [facility] 13:32:58 CDT CPT-63415 Level 3 [facility] 17:43:43 CDT CPT-68361 Level 3 [facility] 12:03:33 RECEIVING DISTRIBUTION STATION OPERATOR CPT-85274 Level 3 [facility] 18:47:28 RECEIVING DISTRIBUTION STATION OPERATOR CPT-81849 Level 3 [facility] 17:35:26 RECEIVING DISTRIBUTION STATION OPERATOR CPT-06182 Level 3 [facility] 18:44:49 RECEIVING DISTRIBUTION STATION OPERATOR CPT-30883 Level 3 [facility] 18:17:33 CDT CPT-23917 Level 3 [facility] 09:25:33 CDT CPT-25209 Level 3 [facility] 19:11:57 CDT CPT-46079 Level 3 [facility] 09:25:52 CDT CPT-58643 Level 3 [facility] 14:23:59 CDT CPT-12180 Level 3 [facility] 12:09:43 CDT CPT-81176 Level 3 [facility] 09:37:40 CDT CPT-59762 Level 3 [facility] 18:23:02 CDT CPT-35962 Level 3 [facility] 14:09:06 CDT CPT-61474 Level 3 [facility] 12:43:27 RECEIVING DISTRIBUTION STATION OPERATOR CPT-08747 Postop F/U Visit 14:10:15 RECEIVING DISTRIBUTION STATION OPERATOR CPT-58089 [facility] 17:07:14 RECEIVING DISTRIBUTION STATION OPERATOR CPT-62352 Level 3 [facility] 16:14:37 RECEIVING DISTRIBUTION STATION OPERATOR CPT-33664 Port a cath flush 11:47:42 CDT CPT-79052 Port a cath flush 08:29:49 CDT CPT-OV Office Visit 14:27:58 RECEIVING DISTRIBUTION STATION OPERATOR
--- OUTSIDE RECORDS SUMMARY | 2016-08-07 12:30 | XMS REPORT | Clinical Summary ---
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 V58.69 Resolved Jonel Hemphill MD Long-term (current) [...] Coronary atherosclerosis of unspecified type of vessel, [place] or graft FH DIABETES V18.0 Resolved Jonel [...] Coronary atherosclerosis of unspecified type of vessel, [place] or graft CONSTIPATION 564.00 Resolved Jonel Hemphill [...] syndrome CHRONIC KIDNEY DISEASE UNSPECIFIED 585.9 Resolved Jnoel Hemphill MD Chronic kidney disease, unspecified Infection [...] site; multiple sites Eye pain 379.91 Resolved oJnel Hemphill MD Pain in or around eye [...] Obstructive sleep apnea (adult) (pediatric) 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 USE, CORNCOB PIPES ASSEMBLER ICD-V58.69 Inactive Jonel Hemphill MD DIABETES, TYPE [...] skin and change every 72 hours FENTANYL 96854997413 Active Tova Chris Active MIRALAX POWD 17 gms in 4 oz water or juice daily POLYETHYLENE GLYCOL 3350 51248169034 Active Jonel Hemphill MD Active CVS MELATONIN 3 MG ORAL TABS 2 tabs at hs MELATONIN 03156097904 Active Jonel Hemphill MD Active MAGNESIUM GLUCONATE 500 MG ORAL TABS 1 tab twice daily MAGNESIUM GLUCONATE 18208316822 Active Jonel Hemphill MD Active OMEPRAZOLE 20 MG CPDR 1 tablet by mouth daily OMEPRAZOLE 69866037276 Active Jonel Hemphill MD Active DIGOXIN 125 MCG ORAL TABS 1 daily DIGOXIN 16436206454 Active Jonel Hemphill MD Active DILTIAZEM CD 240 MG ORAL [id number] 1 daily DILTIAZEM HCL COATED BEADS 41470222615 Active Jonel Hemphill MD Active NOVOLOG 100 UNIT/ML SC SOLN 70-140=0U 141-180=2 U 181-220=4U 221-260=6U 261- 300=8U 301-340=10U 010=090=78H 381-400=14U INSULIN ASPART 38011344869 Active Jonel Hemphill MD Active ACETAMINOPHEN 325 MG ORAL TABS 1 tab by mouth every 4 hours as needed ACETAMINOPHEN 81174339726 Active Jonel Hemphill MD Active FENTANYL 12 MCG/HR PT72 Apply to clean, dry skin and change every 72 hours FENTANYL 58832004538 No Longer Active Jonel Hemphill MD Active PHENYTOIN 50 MG CHEW 1 TAB PO BID PHENYTOIN 44045545276 No Longer Active Jonel Hemphill MD Active NORCO 5-325 MG TABS 1-2 TAB Q 6 HRS PRN HYDROCODONE- ACETAMINOPHEN 93877026612 No Longer Active Jonel Hemphill MD Active MULTIVITAMINS CAPS 1 DAILY MULTIPLE VITAMIN 69951074133 No Longer Active Jonel Hemphill MD Active BUPROPION HCL ER (SR) 150 MG [id number] 1 twice a day for depression BUPROPION HCL 37859423912 No Longer Active Jonel Hemphill MD Active LISINOPRIL 20 MG TABS 1 tablet by mouth daily LISINOPRIL 58926203709 Active Jonel Hemphill MD Active ULORIC 40 MG ORAL TABS 1 daily for gout. FEBUXOSTAT 61348600038 No Longer Active Jonel Hemphill MD Active CELEXA 20 MG TABS 1 tablet by mouth daily CITALOPRAM HYDROBROMIDE 38037411069 Active Marleni Raida Active ZOFRAN 4 MG TABS 1 po q6hr PRN Nausea ONDANSETRON HCL 33501352740 Active Jonel Hemphill MD Active XARELTO 20 MG ORAL TABS 1 daily RIVAROXABAN 98898232015 Active Jonel Hemphill MD Active JANUVIA 100 MG ORAL TABS 2 tabs daily SITAGLIPTIN PHOSPHATE 49010658547 Active Jonel Hemphill MD Active CELEXA 20 MG TABS Take 1 tablet 1x daily CITALOPRAM HYDROBROMIDE 74566257227 No Longer Active Jonel Hemphill MD Active ATIVAN 0.5 MG TABS Take 1 tablet 2x daily PRN LORAZEPAM 82928576350 No Longer Active Jonel Hemphill MD Active FUROSEMIDE 80 MG ORAL TABS 1 daily FUROSEMIDE 01064924809 Active Jonel Hemphill MD Active MECLIZINE HCL 25 MG CHEW TAB 1 four times a day as needed for dizziness 02/21 MECLIZINE HCL 58766006311 No Longer Active Jonel Hemphill MD Active ZYLOPRIM 300 MG TAB 1 BY MOUTH DAILY ALLOPURINOL 54084608649 No Longer Active Jonel Hemphill MD Active METOPROLOL TARTRATE 50 MG ORAL TABS 1 TAB BY MOUTH TWICE DAILY METOPROLOL TARTRATE 13353896143 No Longer Active Jonel Hemphill MD Active GABAPENTIN 400 MG ORAL CAPS 1 TAB BY MOUTH THREE TIMES DAILY 2015 GABAPENTIN 82218590617 No Longer Active Jonel Hemphill MD Active HYDROCODONE-ACETAMINOPHEN 7.5-325 MG TABS 1 TAB PO Q 6 HRS PRN HYDROCODONE-ACETAMINOPHEN 30305550303 Active Jonel Hemphill MD Active METFORMIN HCL 1000 MG TABS 1 tablet by mouth twice daily METFORMIN HCL 03491578604 Active Marleni Romero Active KLOR-CON 20 MEQ ORAL PACK 1 BY MOUTH DAILY POTASSIUM CHLORIDE 72290581002 Active Marleni Romero Active A+D FIRST AID EXT OINT APPLY OINTMENT AND RUFINO WRAPS TO LOWER EXTEREMETIES DAILY SKIN PROTECTANTS, MISC. 60490194631 Active Jonel Hemphill MD Active NYSTATIN 908182 UNIT/GM EXT OINT APPLY PRN TID TO GAULDING/RASH IN ABDOMINAL FOLDS NYSTATIN 87461425109 Active Jonel Hemphill MD Active GABAPENTIN 300 MG CAPS 1 CAP PO TID GABAPENTIN 52713470680 No Longer Active Jonel Hemphill MD Active DILANTIN 100 MG ORAL CAPS 1 THREE TIMES DAILY FOR SEIZURES PHENYTOIN SODIUM EXTENDED 87171950938 Active Marleni Romero Active CPAP APPLY AT HS CPAP Active Jonel Hemphill MD Active HYDROCODONE-ACETAMINOPHEN 7.5-325 MG TABS 1 q 6 hrs prn HYDROCODONE-ACETAMINOPHEN 29755047683 No Longer Active Jonel Hemphill MD Active DILANTIN 100 MG CAPS 3 cap tid PHENYTOIN SODIUM EXTENDED 96160611154 No Longer Active Jonel Hemphill MD Active BUDEPRION SR 150 MG [id number] 1 bid BUPROPION HCL 27996788844 No Longer Active Jonel Hemphill MD Active ALLOPURINOL 300 MG TABS 1 qd ALLOPURINOL 77999162452 No Longer Active Jonel Hemphill MD Active COZAAR 100 MG TABS 1 qd LOSARTAN POTASSIUM 46811127988 No Longer Active Jonel Hemphill MD Active CVS VITAMIN C 500 MG TABS 1 po daily ASCORBIC ACID 74668287904 No Longer Active Jonel Hemphill MD Active MIRALAX POWD 17 gms in 4 oz water or juice daily POLYETHYLENE GLYCOL 3350 07706898596 No Longer Active Jonel Hemphill MD Active POTASSIUM CHLORIDE CHELA ER 20 MEQ CR-TABS 1 tab PO daily POTASSIUM CHLORIDE CHELA CR 10499625892 No Longer Active Jonel Hemphill MD Active AMBIEN 10 MG TAB 1 tab by mouth at bedtime as needed for sleep ZOLPIDEM TARTRATE 20272485607 No Longer Active Jonel Hemphill MD Active SULFAMETHOXAZOLE-TMP DS 800-160 MG TABS 1 TAB PO BID SULFAMETHOXAZOLE-TRIMETHOPRIM 13168797174 No Longer Active Jonel Hemphill MD Active LEVEMIR 100 UNIT/ML SOLN 5 units sub-q at bedtime INSULIN DETEMIR 53944893602 No Longer Active Tova Perez Active MOBIC 15 MG TABS 1 tab PO daily for arthritis pain MELOXICAM 84389920800 No Longer Active Tova Perez Active GLUCAGEN 1 MG SOLR INJECT 1MG IM IF BS LESS THAN 60 & RES. IS UNABLE TO SWALLOW GLUCAGON HCL (RDNA) 00223748463 No Longer Active Tova Perez Active CVS MILK OF MAGNESIA 1200 MG/15ML SUSP 30 ml daily for constipation MAGNESIUM HYDROXIDE 94983718430 No Longer Active Tova Perez Active IMDUR 120 MG [id number] 1 qd ISOSORBIDE MONONITRATE 04539143414 No Longer Active Tova Perez Active NEURONTIN 400 MG CAPS Take one by mouth 3 times daily, morning, afternoon and evening.] GABAPENTIN 63772842499 No Longer Active Tova Perez Active ANTIVERT 25 MG TABS 1 q 6 hrs prn MECLIZINE HCL 66366312544 No Longer Active Jonel Hemphill MD Active CLONIDINE HCL 0.2 MG TABS 1 q 8 hrs as needed -greater than 160-htn CLONIDINE HCL 47481179912 No Longer Active Jonel Hemphill MD Active AMBIEN 10 MG TABS 1 q hs prn ZOLPIDEM TARTRATE 05215365073 No Longer Active Jonel Hemphill MD Active GNP THERAPEUTIC-M TABS 1 qd MULTIPLE VITAMINS- MINERALS 65368553241 No Longer Active Jonel Hemphill MD Active METOPROLOL TARTRATE 50 MG TABS 1 bid METOPROLOL TARTRATE 18987522933 No Longer Active Jonel Hemphill MD Active METFORMIN HCL 500 MG TABS 1 bod with food METFORMIN HCL 57521977208 No Longer Active Jonel Hemphill MD Active LISINOPRIL 40 MG TABS 1 qd LISINOPRIL 17393499080 No Longer Active Jonel Hemphill MD Active HYDROCHLOROTHIAZIDE 25 MG TABS 1 qd HYDROCHLOROTHIAZIDE 23444079189 No Longer Active Jonel Hemphill MD Active DURAGESIC-25 25 MCG/HR PT72 place 1 patch on the skin q72hrs for pain FENTANYL 77805004942 No Longer Active Jonel Hemphill MD Active FENTANYL 75 MCG/HR PT72 place 1 patch on skin q72hrs fr pain 2012 FENTANYL 13104891108 No Longer Active Jonel Hemphill MD Active FUROSEMIDE 40 MG TABS 1 q am FUROSEMIDE 00219009552 No Longer Active Jonel Hemphill MD Active HEPARIN (PORCINE) LOCK FLUSH 100 UNIT/ML SOLN Flush port a cath monthly every three week on with Heparin and NS HEPARIN LOCK FLUSH 38237445091 Active Jonel Hemphill MD Active FENTANYL 100 MCG/HR PT72 Apply every 3 days FENTANYL 89222865709 Active Jonel Hemphill MD Active FENTANYL 25 MCG/HR PT72 Apply to clean skin and change every 72 hours. 07/03 FENTANYL 16915688950 No Longer Active Jonel Hemphill MD Active FENTANYL 50 MCG/HR PT72 place 1 patch on skin q72 hours FENTANYL 46833538495 No Longer Active Mayco Shah APRN Active DURAGESIC-12 12 MCG/HR PT72 APPLY PATCH TO SKIN AND CHANGE EVERY 72 HOURS, ROTATE SITES FENTANYL 77756905830 No Longer Active Fozia YANGA Active FUROSEMIDE 20 MG TABS 1 qd FUROSEMIDE 78317049911 No Longer Active Mahogany Renick Active ADULT ASPIRIN EC LOW STRENGTH 81 MG TBEC 1 qd ASPIRIN 68519305955 Active MARY Perez Active FUROSEMIDE 20 MG TABS 1 qd FUROSEMIDE 20 MG TABS 398757 FUROSEMIDE Inactive DURAGESIC-12 12 MCG/HR PT72 APPLY PATCH TO SKIN AND CHANGE EVERY 72 HOURS, ROTATE SITES DURAGESIC-12 12 MCG/HR PT72 281623 FENTANYL Inactive FENTANYL 50 MCG/HR PT72 place 1 patch on skin q72 hours FENTANYL 50 MCG/HR PT72 860273 FENTANYL Inactive FUROSEMIDE 40 MG TABS 1 q am FUROSEMIDE 40 MG TABS 093016 FUROSEMIDE Inactive FENTANYL 75 MCG/HR PT72 place 1 patch on skin q72hrs fr pain 2012 FENTANYL 75 MCG/HR PT72 018340 FENTANYL Inactive DURAGESIC-25 25 MCG/HR PT72 place 1 patch on the skin q72hrs for pain DURAGESIC-25 25 MCG/HR PT72 068474 FENTANYL Inactive HYDROCHLOROTHIAZIDE 25 MG TABS 1 qd HYDROCHLOROTHIAZIDE 25 MG TABS 974830 HYDROCHLOROTHIAZIDE Inactive LISINOPRIL 40 MG TABS 1 qd LISINOPRIL 40 MG TABS 536536 LISINOPRIL Inactive METFORMIN HCL 500 MG TABS 1 bod with food METFORMIN HCL 500 MG TABS 972100 METFORMIN HCL Inactive METOPROLOL TARTRATE 50 MG TABS 1 bid METOPROLOL TARTRATE 50 MG TABS 650494 METOPROLOL TARTRATE Inactive GNP THERAPEUTIC-M TABS 1 qd GNP THERAPEUTIC-M TABS MULTIPLE VITAMINS-MINERALS Inactive AMBIEN 10 MG TABS 1 q hs prn AMBIEN 10 MG TABS 050764 ZOLPIDEM TARTRATE Inactive CLONIDINE HCL 0.2 MG TABS 1 q 8 hrs as needed -greater than 160-htn CLONIDINE HCL 0.2 MG TABS 617603 CLONIDINE HCL Inactive ANTIVERT 25 MG TABS 1 q 6 hrs prn ANTIVERT 25 MG TABS MECLIZINE HCL Inactive NEURONTIN 400 MG CAPS Take one by mouth 3 times daily, morning, afternoon and evening.] NEURONTIN 400 MG CAPS 070569 GABAPENTIN Inactive IMDUR 120 MG [id number] 1 qd IMDUR 120 MG [id number] ISOSORBIDE MONONITRATE Inactive CVS MILK OF MAGNESIA [...] for arthritis pain MOBIC 15 MG TABS 338467 MELOXICAM Inactive LEVEMIR 100 UNIT/ML SOLN 5 units sub-q at bedtime LEVEMIR 100 UNIT/ML SOLN INSULIN DETEMIR Inactive SULFAMETHOXAZOLE-TMP DS 800-160 MG TABS 1 TAB PO BID SULFAMETHOXAZOLE-TMP DS 800-160 MG TABS 770835 SULFAMETHOXAZOLE-TRIMETHOPRIM Inactive AMBIEN 10 MG TAB 1 tab by mouth at bedtime as needed for sleep AMBIEN 10 MG TAB 773892 ZOLPIDEM TARTRATE Inactive POTASSIUM CHLORIDE CHELA ER 20 MEQ CR-TABS 1 tab PO daily POTASSIUM CHLORIDE CHELA ER 20 MEQ CR-TABS POTASSIUM CHLORIDE CHELA CR Inactive MIRALAX POWD 17 gms in 4 oz water or juice daily MIRALAX POWD 159680 POLYETHYLENE GLYCOL 3350 Inactive CVS VITAMIN C 500 MG TABS 1 po daily CVS VITAMIN C 500 MG TABS 151833 ASCORBIC ACID Inactive COZAAR 100 MG TABS 1 qd COZAAR 100 MG TABS 902388 LOSARTAN POTASSIUM Inactive ALLOPURINOL 300 MG TABS 1 qd ALLOPURINOL 300 MG TABS 128090 ALLOPURINOL Inactive BUDEPRION SR 150 MG [id number] 1 bid BUDEPRION SR 150 MG [id number] BUPROPION HCL Inactive DILANTIN 100 MG CAPS 3 cap tid DILANTIN 100 MG CAPS 779709 PHENYTOIN SODIUM EXTENDED Inactive HYDROCODONE-ACETAMINOPHEN 7.5-325 MG TABS 1 q 6 hrs prn HYDROCODONE-ACETAMINOPHEN 7.5-325 MG TABS 125879 HYDROCODONE- ACETAMINOPHEN Inactive GABAPENTIN 300 MG CAPS 1 CAP PO TID GABAPENTIN 300 MG CAPS 031134 GABAPENTIN Inactive GABAPENTIN 400 MG ORAL CAPS 1 TAB BY MOUTH THREE TIMES DAILY 2015 GABAPENTIN 400 MG ORAL CAPS 439869 GABAPENTIN Inactive METOPROLOL TARTRATE 50 MG ORAL TABS 1 TAB BY MOUTH TWICE DAILY METOPROLOL TARTRATE 50 MG ORAL TABS 429054 METOPROLOL TARTRATE Inactive ZYLOPRIM 300 MG TAB 1 BY MOUTH DAILY ZYLOPRIM 300 MG TAB 734229 ALLOPURINOL Inactive MECLIZINE HCL 25 MG CHEW TAB 1 four times a day as needed for dizziness 02/21 MECLIZINE HCL 25 MG CHEW TAB 185288 MECLIZINE HCL Inactive ATIVAN 0.5 MG TABS Take 1 tablet 2x daily PRN ATIVAN 0.5 MG TABS 367351 LORAZEPAM Inactive CELEXA 20 MG TABS Take 1 tablet 1x daily CELEXA 20 MG TABS 232179 CITALOPRAM HYDROBROMIDE Inactive ULORIC 40 MG ORAL TABS 1 daily for gout. ULORIC 40 MG ORAL TABS FEBUXOSTAT Inactive BUPROPION HCL ER (SR) 150 MG [id number] 1 twice a day for depression BUPROPION HCL ER (SR) 150 MG [id number] BUPROPION HCL Inactive MULTIVITAMINS CAPS 1 DAILY MULTIVITAMINS CAPS MULTIPLE VITAMIN Inactive NORCO 5-325 MG TABS 1-2 TAB Q 6 HRS PRN NORCO 5-325 MG TABS 184111 HYDROCODONE-ACETAMINOPHEN Inactive PHENYTOIN 50 MG CHEW 1 TAB PO BID PHENYTOIN 50 MG CHEW 2699147 PHENYTOIN Inactive FENTANYL 12 MCG/HR PT72 Apply to clean, dry skin and change every 72 hours FENTANYL 12 MCG/HR PT72 773837 FENTANYL Inactive FENTANYL 25 MCG/HR PT72 Apply to clean skin and change every 72 hours. 07/03 FENTANYL 25 MCG/HR PT72 935751 FENTANYL Inactive Advance Directives Directive Description Start Date ADVANCE DIRECTIVE Immunizations Vaccine Administration Date Value Standard Description influenza immunization (Flu Vax) has been administered Influenza - Unspecified Formulation [CVX88] influenza virus vaccine, unspecified formulation pneumococcal immunization administered Pneumovax 23 [CVX33] pneumococcal polysaccharide vaccine, 23 valent Vital Signs Date Name Value Unit Range Description blood pressure, diastolic - 8462-4 72 mm[Hg] [...] mg/dL Encounters Code Encounter Date Provider Facility CPT-87428 Level 3 Est. Patient 19:05:03 CDT Jonel Hemphill MD [facility] CPT-19892 Level 3 Est. Patient 17:30:47 CDT Kevin Link MD [facility] CPT-64096 Level 3 Est. Patient 18:04:07 CDT Jonel Hemphill MD [facility] CPT-17533 Level 3 Est. Patient 17:18:03 CDT Jonel Hemphill MD [facility] CPT-47148 Level 3 Est. Patient 21:58:03 TOLL OPERATOR Jonel Hemphill MD [facility] CPT-29285 Level 4 Est. Patient 18:03:14 CDT Jonel Hemphill MD [facility]-04594 Level 4 Est. Patient 13:24:53 CDT Jonel Hemphill MD [facility]-99724 Level 4 Est. Patient 09:15:44 CDT Jonel Hemphill MD [facility]-71692 Level 4 Est. Patient 19:16:01 CDT Jonel Hemphill MD [facility]-00950 Level 4 Est. Patient 11:25:16 CDT Jonel Hemphill MD [facility] CPT-64397 Level 4 Est. Patient 09:00:40 CDT Jonel Hemphill MD [facility]-40774 Level 4 Est. Patient 14:53:58 CDT Jonel Hemphill MD [facility] CPT-65555 Level 4 Est. Patient 22:59:01 CDT Jonel Hemphill MD [facility]-38951 Level 4 Est. Patient 09:29:57 CDT Jonel Hemphill MD [facility]-33148 Level 4 Est. Patient 12:35:53 TOLL OPERATOR Jonel Hemphill MD [facility]-38216 Level 4 Est. Patient 22:36:09 TOLL OPERATOR Jonel Hemphill MD [facility]-98619 Level 2 Est. Patient 15:14:15 TOLL OPERATOR Mayco Shah APRN [facility]-91814 Level 4 Est. Patient 10:36:22 TOLL OPERATOR Jonel Hemphill MD [facility] CPT-96925 Level 4 Est. Patient 22:01:13 TOLL OPERATOR Jonel Hemphill MD [facility] CPT-88751 Level 3 Est. Patient 21:50:37 TOLL OPERATOR Jonel Hemphill MD [facility] CPT-94036 Level 4 Est. Patient 15:02:43 CDT Rubin Pierre MD [facility] CPT-00361 Level 4 Est. Patient 14:27:35 CDT Jonel Hemphill MD [facility] CPT-98482 Level 4 Est. Patient 12:41:17 CDT Jonel Hemphill MD [facility]-59024 Level 4 Est. Patient 16:18:55 CDT Jonel Hemphill MD [facility]-54128 Level 4 Est. Patient 17:58:05 CDT Jonel Hemphill MD [facility]-22056 Level 4 Est. Patient 22:10:06 CDT Jonel Hemphill MD [facility]-68230 Level 4 Est. Patient 13:22:09 CDT Jonel Hemphill MD [facility] CPT-65662 Level 4 Est. Patient 22:52:17 TOLL OPERATOR Jonel Hemphill MD [facility]-82995 Level 3 Est. Patient 22:34:10 TOLL OPERATOR Jonel Hemphill MD [facility]-91509 Level 4 Est. Patient 07:49:20 TOLL OPERATOR Jonel Hemphill MD [facility] Skilled CPT-20206 Level 3 Est. Patient 08:28:27 TOLL OPERATOR Jonel Hemphill MD [facility] Procedures Code Procedure Name Date Entry Date Standard Description CPT-70458 Level 3 [facility] 21:14:15 TOLL OPERATOR CPT-29790 Level 3 [facility] 15:38:24 CDT CPT-67186 Level 3 [facility] 08:18:30 CDT CPT-10833 Level 3 [facility] 19:03:14 CDT CPT-36181 Level 3 [facility] 17:42:11 CDT CPT-71488 Level 3 [facility] 16:04:10 CDT CPT-18103 Level 3 [facility] 19:38:15 TOLL OPERATOR CPT-45471 Level 3 [facility] 19:28:48 TOLL OPERATOR CPT-73224 Level 3 [facility] 18:02:20 TOLL OPERATOR CPT-42689 Level 3 [facility] 15:02:14 TOLL OPERATOR CPT-72508 Level 3 [facility] 12:25:37 CDT CPT-65097 Level 3 [facility] 12:48:39 CDT CPT-56123 Level 3 [facility] 17:39:14 CDT CPT-73471 Level 3 [facility] 13:32:58 CDT CPT-80382 Level 3 [facility] 17:43:43 CDT CPT-69623 Level 3 [facility] 12:03:33 TOLL OPERATOR CPT-43417 Level 3 [facility] 18:47:28 TOLL OPERATOR CPT-17793 Level 3 [facility] 17:35:26 TOLL OPERATOR CPT-26880 Level 3 [facility] 18:44:49 TOLL OPERATOR CPT-07339 Level 3 [facility] 18:17:33 CDT CPT-09189 Level 3 [facility] 09:25:33 CDT CPT-00585 Level 3 [facility] 19:11:57 CDT CPT-62082 Level 3 [facility] 09:25:52 CDT CPT-34041 Level 3 [facility] 14:23:59 CDT CPT-25492 Level 3 [facility] 12:09:43 CDT CPT-73719 Level 3 [facility] 09:37:40 CDT CPT-88401 Level 3 [facility] 18:23:02 CDT CPT-86825 Level 3 [facility] 14:09:06 CDT CPT-81968 Level 3 [facility] 12:43:27 TOLL OPERATOR CPT-40779 Postop F/U Visit 14:10:15 TOLL OPERATOR CPT-43749 [facility] 17:07:14 TOLL OPERATOR CPT-90275 Level 3 [facility] 16:14:37 TOLL OPERATOR CPT-54907 Port a cath flush 11:47:42 CDT CPT-13860 Port a cath flush 08:29:49 CDT CPT-OV Office Visit 14:27:58 TOLL OPERATOR
--- OUTSIDE RECORDS SUMMARY | 2016-08-07 12:30 | XMS REPORT ---
Author Author [facility] Medical Staff Organization [facility] Address [address] [place], [place] [id number] Phone [phone] Care Team Providers Care Pipeline Integrity Engineer Name Role Phone FRANKO PRIETO MD PP [phone] Summary purpose CCDA Sent to [facility] Chief Complaint and Reason for Visit [...] Code Type Description Date Performed Performing Physician 68507 CPT-4 ELECTROCARDIOGRAM REPORT 03-24-2016 ARISTEO BILLY Functional status No functional or [...]
--- OUTSIDE RECORDS SUMMARY | 2016-08-07 12:32 | XMS REPORT | Clinical Summary ---
Author Author Admin, KARLAE Organization [facility] Address Unknown Phone 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, CRUSHER DRY GROUND MICA V58.69 Resolved Jonel Hemphill MD Long-term (current) [...] Coronary atherosclerosis of unspecified type of vessel, [place] or graft FH DIABETES V18.0 Resolved Jonel [...] Coronary atherosclerosis of unspecified type of vessel, [place] or graft CONSTIPATION 564.00 Resolved Jonel Hemphill [...] other specified site; multiple sites 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 USE, CRUSHER DRY GROUND MICA ICD-V58.69 Inactive Jonel Hemphill MD DIABETES, TYPE [...] TAB Q 6 HRS PRN HYDROCODONE- ACETAMINOPHEN 53543534116 Active Jonel Hemphill MD Active LEVEMIR 100 UNIT/ML SOLN 5 units sub-q at bedtime INSULIN DETEMIR 26685146483 No Longer Active Tova Perez Active MOBIC 15 MG TABS 1 tab PO daily for arthritis pain MELOXICAM 11344469685 No Longer Active Tova Perez Active GLUCAGEN 1 MG SOLR INJECT 1MG IM IF BS LESS THAN 60 & RES. IS UNABLE TO SWALLOW GLUCAGON HCL (RDNA) 60429482893 No Longer Active Tova Perez Active [facility] MILK OF MAGNESIA 1200 MG/15ML SUSP 30 ml daily for constipation MAGNESIUM HYDROXIDE 80556286787 No Longer Active Tova Perez Active IMDUR 120 MG [id number] 1 qd ISOSORBIDE MONONITRATE 51110441703 No Longer Active Tova Perez Active METFORMIN HCL 500 MG TABS 1 tablet by mouth twice daily METFORMIN HCL 66877482742 Active Tova Perez Active SULFAMETHOXAZOLE-TMP DS 800-160 MG TABS 1 TAB PO BID SULFAMETHOXAZOLE-TRIMETHOPRIM 89625676038 Active Tova Perez Active PHENYTOIN 50 MG CHEW 1 TAB PO BID PHENYTOIN 58108324981 Active Tova Perez Active MECLIZINE HCL 25 MG CHEW TAB 1 four times a day as needed for dizziness 02/21 MECLIZINE HCL 67029811542 Active Tova Perez Active GABAPENTIN 300 MG CAPS 1 CAP PO TID GABAPENTIN 06303701755 Active Tova Perez Active NEURONTIN 400 MG CAPS Take one by mouth 3 times daily, morning, afternoon and evening.] GABAPENTIN 21634795387 No Longer Active Tova Perez Active AMBIEN 10 MG TAB 1 tab by mouth at bedtime as needed for sleep ZOLPIDEM TARTRATE 50203943659 Active Jonel Hemphill MD Active POTASSIUM CHLORIDE CHELA ER 20 MEQ CR-TABS 1 tab PO daily POTASSIUM CHLORIDE CHELA CR 99107344282 Active Jonel Hemphill MD Active ANTIVERT 25 MG TABS 1 q 6 hrs prn MECLIZINE HCL 98952740552 No Longer Active Jonel Hemphill MD Active CLONIDINE HCL 0.2 MG TABS 1 q 8 hrs as needed -greater than 160-htn CLONIDINE HCL 08205303701 No Longer Active Jonel Hemphill MD Active AMBIEN 10 MG TABS 1 q hs prn ZOLPIDEM TARTRATE 81281404369 No Longer Active Jonel Hemphill MD Active GNP THERAPEUTIC-M TABS 1 qd MULTIPLE VITAMINS- MINERALS 71231155845 No Longer Active Jonel Hemphill MD Active METOPROLOL TARTRATE 50 MG TABS 1 bid METOPROLOL TARTRATE 02813494600 No Longer Active Jonel Hemphill MD Active METFORMIN HCL 500 MG TABS 1 bod with food METFORMIN HCL 09411468152 No Longer Active Jonel Hemphill MD Active LISINOPRIL 40 MG TABS 1 qd LISINOPRIL 93381733412 No Longer Active Jonel Hemphill MD Active HYDROCHLOROTHIAZIDE 25 MG TABS 1 qd HYDROCHLOROTHIAZIDE 20980815171 No Longer Active Jonel Hemphill MD Active DURAGESIC-25 25 MCG/HR PT72 place 1 patch on the skin q72hrs for pain FENTANYL 61386631460 No Longer Active Jonel Hemphill MD Active FENTANYL 75 MCG/HR PT72 place 1 patch on skin q72hrs fr pain 2012 FENTANYL 24694945972 No Longer Active Jonel Hemphill MD Active LASIX 20 MG TABS 1 tab PO q morning FUROSEMIDE 39099749270 Active Jonel Hemphill MD Active FUROSEMIDE 40 MG TABS 1 q am FUROSEMIDE 96768623164 No Longer Active Jonel Hemphill MD Active HEPARIN (PORCINE) LOCK FLUSH 100 UNIT/ML SOLN Flush port a cath monthly every three week on with Heparin and NS HEPARIN LOCK FLUSH 42275483318 Active Jonel Hemphill MD Active FENTANYL 100 MCG/HR PT72 Apply every 3 days FENTANYL 04872430093 Active Jonel Hemphill MD Active FENTANYL 25 MCG/HR PT72 Apply to clean skin and change every 72 hours. 07/03 FENTANYL 14085366741 No Longer Active Jonel Hemphill MD Active FENTANYL 50 MCG/HR PT72 place 1 patch on skin q72 hours FENTANYL 51158715260 No Longer Active Mayco Dacostajohnie SCHMID Active HYDROCODONE-ACETAMINOPHEN 7.5-325 MG TABS 1 q 6 hrs prn HYDROCODONE-ACETAMINOPHEN 06481510945 Active Jonel Hemphill MD Active ATIVAN 0.5 MG TABS Take 1 tablet 2x daily LORAZEPAM 79970397892 Active Jonel Hemphill MD Active CELEXA 20 MG TABS Take 1 tablet 1x daily CITALOPRAM HYDROBROMIDE 34288934151 Active Jonel Hemphill MD Active MIRALAX POWD 17 gms in 4 oz water or juice daily POLYETHYLENE GLYCOL 3350 89018108446 Active Rubin Pierre MD Active DURAGESIC-12 12 MCG/HR PT72 APPLY PATCH TO SKIN AND CHANGE EVERY 72 HOURS, ROTATE SITES FENTANYL 04117214983 No Longer Active Fozia HERNANDEZ Active [facility] VITAMIN C 500 MG TABS 1 po daily ASCORBIC ACID 81598161674 Active [employer] Active FUROSEMIDE 20 MG TABS 1 qd FUROSEMIDE 01475639936 No Longer Active [employer] Active ADULT ASPIRIN EC LOW STRENGTH 81 MG TBEC 1 qd ASPIRIN 19333137040 Active MARY Perez Active DILANTIN 100 MG CAPS 3 cap tid PHENYTOIN SODIUM EXTENDED 94965601153 Active MARY Perez Active BUDEPRION SR 150 MG [id number] 1 bid BUPROPION HCL 39075978175 Active MARY Perez Active ALLOPURINOL 300 MG TABS 1 qd ALLOPURINOL 32089980828 Active MARY Perez Active COZAAR 100 MG TABS 1 qd LOSARTAN POTASSIUM 93651738031 Active MARY Perez Active FUROSEMIDE 20 MG TABS 1 qd FUROSEMIDE 20 MG TABS 064759 FUROSEMIDE Inactive DURAGESIC-12 12 MCG/HR PT72 APPLY PATCH TO SKIN AND CHANGE EVERY 72 HOURS, ROTATE SITES DURAGESIC-12 12 MCG/HR PT72 333786 FENTANYL Inactive FENTANYL 50 MCG/HR PT72 place 1 patch on skin q72 hours FENTANYL 50 MCG/HR PT72 136129 FENTANYL Inactive FUROSEMIDE 40 MG TABS 1 q am FUROSEMIDE 40 MG TABS 909684 FUROSEMIDE Inactive FENTANYL 75 MCG/HR PT72 place 1 patch on skin q72hrs fr pain 2012 FENTANYL 75 MCG/HR PT72 611808 FENTANYL Inactive DURAGESIC-25 25 MCG/HR PT72 place 1 patch on the skin q72hrs for pain DURAGESIC-25 25 MCG/HR PT72 895734 FENTANYL Inactive HYDROCHLOROTHIAZIDE 25 MG TABS 1 qd HYDROCHLOROTHIAZIDE 25 MG TABS 393720 HYDROCHLOROTHIAZIDE Inactive LISINOPRIL 40 MG TABS 1 qd LISINOPRIL 40 MG TABS 128415 LISINOPRIL Inactive METFORMIN HCL 500 MG TABS 1 bod with food METFORMIN HCL 500 MG TABS 131365 METFORMIN HCL Inactive METOPROLOL TARTRATE 50 MG TABS 1 bid METOPROLOL TARTRATE 50 MG TABS 922134 METOPROLOL TARTRATE Inactive GNP THERAPEUTIC-M TABS 1 qd GNP THERAPEUTIC-M TABS MULTIPLE VITAMINS-MINERALS Inactive AMBIEN 10 MG TABS 1 q hs prn AMBIEN 10 MG TABS 778118 ZOLPIDEM TARTRATE Inactive CLONIDINE HCL 0.2 MG TABS 1 q 8 hrs as needed -greater than 160-htn CLONIDINE HCL 0.2 MG TABS 052049 CLONIDINE HCL Inactive ANTIVERT 25 MG TABS 1 q 6 hrs prn ANTIVERT 25 MG TABS MECLIZINE HCL Inactive NEURONTIN 400 MG CAPS Take one by mouth 3 times daily, morning, afternoon and evening.] NEURONTIN 400 MG CAPS 620920 GABAPENTIN Inactive IMDUR 120 MG [id number] 1 qd IMDUR 120 MG [id number]-MLE ISOSORBIDE MONONITRATE Inactive [facility] MILK OF MAGNESIA [...] for arthritis pain MOBIC 15 MG TABS 828015 MELOXICAM Inactive LEVEMIR 100 UNIT/ML SOLN 5 units sub-q at bedtime LEVEMIR 100 UNIT/ML SOLN INSULIN DETEMIR Inactive FENTANYL 25 MCG/HR PT72 Apply to clean skin and change every 72 hours. 07/03 FENTANYL 25 MCG/HR PT72 727217 FENTANYL Inactive Advance Directives Directive Description Start [...] Acid - Chemistry sodium, serum 141 mmol/L 644-450 1642/05/09 potassium, serum 3.9 mmol/L 3.5-5.2 chloride, serum [...] dipstick Negative Negative sodium, serum 140 mmol/L 036-340 9893/02/18 potassium, serum 3.8 mmol/L 3.5-5.2 chloride, serum [...] Negative Encounters Code Encounter Date Provider Facility CPT-05138 Level 3 Est. Patient 18:04:07 CDT Jonel Hemphill MD [facility] CPT-65011 Level 3 Est. Patient 17:18:03 CDT Jonel Hemphill MD [facility]-26087 Level 3 Est. Patient 21:58:03 [employer]ED[employer] Jonel Hemphill MD [facility]-31050 Level 4 Est. Patient 18:03:14 CDT Jonel Yeager [facility]-08295 Level 4 Est. Patient 13:24:53 CDT Jonel Yeager [facility]-65354 Level 4 Est. Patient 09:15:44 CDT Jonel Yeager [facility]-50428 Level 4 Est. Patient 19:16:01 CDT Jonel Yeager [facility] CPT-26313 Level 4 Est. Patient 11:25:16 CDT Jonel Hemphill MD [facility] CPT-20114 Level 4 Est. Patient 09:00:40 CDT Jonel Yeager [facility]-72897 Level 4 Est. Patient 14:53:58 CDT Jonel Hemphill MD [facility] CPT-21607 Level 4 Est. Patient 22:59:01 CDT Jonel Hemphill MD [facility]-83027 Level 4 Est. Patient 09:29:57 CDT Jonel Hemphill MD [facility]-11588 Level 4 Est. Patient 12:35:53 [employer] Jonel Hemphill MD [facility]-25376 Level 4 Est. Patient 22:36:09 [employer]EDGE HAND Jonel Hemphill MD [facility]-54508 Level 2 Est. Patient 15:14:15 DREDGE HAND Mayco Shah APRN [facility] CPT-16396 Level 4 Est. Patient 10:36:22 DREDGE HAND Jonel Hemphill MD [facility]-40142 Level 4 Est. Patient 22:01:13 [employer]GE HAND Jonel Hemphill MD [facility]-98916 Level 3 Est. Patient 21:50:37 [employer]EDGE HAND Jonel Hemphill MD [facility]-40006 Level 4 Est. Patient 15:02:43 CDT Rubin Pierre MD [facility] CPT-72237 Level 4 Est. Patient 14:27:35 CDT Jonel Hemphill MD [facility]-43026 Level 4 Est. Patient 12:41:17 CDT Jonel Hemphill MD [facility]-39594 Level 4 Est. Patient 16:18:55 CDT Jonel Hemphill MD [facility]-12504 Level 4 Est. Patient 17:58:05 CDT Jonel Hemphill MD [facility]-97668 Level 4 Est. Patient 22:10:06 CDT Jonel Hemphill MD [facility]-46828 Level 4 Est. Patient 13:22:09 CDT Jonel Hemphill MD [facility]-57854 Level 4 Est. Patient 22:52:17 DREDGE HAND Jonel Hemphill MD [facility]-14898 Level 3 Est. Patient 22:34:10 DREDGE HAND Jonel Hemhpill MD [facility] CPT-24514 Level 4 Est. Patient 07:49:20 DREDGE HAND Jonel Hemphill MD [facility] Skilled CPT-70905 Level 3 Est. Patient 08:28:27 DREDGE HAND Jonel Hemphill MD [facility] Procedures Code Procedure Name Date Entry Date Standard Description CPT-21871 Level 3 Half-Way 09:25:52 CDT CPT-93594 Level 3 Half-Way 14:23:59 CDT CPT-09310 Level 3 Half-Way 12:09:43 CDT CPT-05145 Level 3 Half-Way 09:37:40 CDT CPT-79786 Level 3 Half-Way 18:23:02 CDT CPT-95249 Level 3 Half-Way 14:09:06 CDT CPT-90092 Level 3 Half-Way 12:43:27 DREDGE HAND CPT-96699 Postop F/U Visit 14:10:15 DREDGE HAND CPT-50479 [facility] [employer] [facility] Ne[facility] 17:07:14 DREDGE HAND CPT-26360 Level 3 Half-Way 16:14:37 DREDGE HAND CPT-10612 Port a cath flush 11:47:42 CDT CPT-29474 Port a cath flush 08:29:49 CDT CPT-OV Office Visit 14:27:58 DREDGE HAND
--- OUTSIDE RECORDS SUMMARY | 2016-08-07 12:34 | XMS REPORT ---
Author Author [facility] Organization [facility] Address [address] [place], [place] [address] Phone [phone] Care Team Providers Care Apparel Sales Associate Name Role Phone FRANKO PRIETO MD PP [phone] Summary purpose TRANSITION OF CARE AUTO GENERATION [...] diagnostic tests and/or laboratory data RESULTS Chemistry [id number]:38:00 Result Normal Range Units Sodium 139 134-145 [...] GFR 86 >=60 mL/min/1.7 History of procedures Procedure Code Code Type Description Date Performed Performing Physician 78352 CPT-4 RENAL FUNCTION PANEL 12-22-2014 WINSTON CORTEZ Functional status No functional or [...]
--- OUTSIDE RECORDS SUMMARY | 2016-08-07 12:34 | XMS REPORT | Clinical Summary ---
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 Jonel Hemphill MD [...] Coronary atherosclerosis of unspecified type of vessel, [place] or graft FH DIABETES V18.0 Resolved Jonel Hemphill MD Family history of diabetes mellitus FH STROKE V17.1 Resolved Jonel Hemphill MD Family history of stroke (cerebrovascular) FAMILY HISTORY COLON CANCER-MOTHER V16.0 Resolved Jonle Hemphill MD Family history of malignant neoplasm [...] Coronary atherosclerosis of unspecified type of vessel, [place] or graft CONSTIPATION 564.00 Resolved Jonel Hemphill [...] , unspecified Chest pain 786.50 Resolved Jonel Hempihll MD Unspecified chest pain Hip pain, right 719.45 Resolved Jonel Hempihll MD Pain in joint involving pelvic region [...] Hemphill MD Spasm of muscle 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 USE, 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 ICD-V58.69 Inactive Jonel Hemphill MD DIABETES, TYPE [...] skin and change every 72 hours FENTANYL 94640837034 Active Jonel Hemphill MD Active MIRALAX POWD 17 gms in 4 oz water or juice daily POLYETHYLENE GLYCOL 3350 67463241835 Active Jonel Hemphill MD Active CVS MELATONIN 3 MG ORAL TABS 2 tabs at hs MELATONIN 90234871811 Active Jonel Hemphill MD Active MAGNESIUM GLUCONATE 500 MG ORAL TABS 1 tab twice daily MAGNESIUM GLUCONATE 09653326490 Active Jonel Hemphill MD Active OMEPRAZOLE 20 MG CPDR 1 tablet by mouth daily OMEPRAZOLE 98355831098 Active Jonel Hemphill MD Active DIGOXIN 125 MCG ORAL TABS 1 daily DIGOXIN 37717647898 Active Jonel Hemphill MD Active DILTIAZEM CD 240 MG ORAL [id number] 1 daily DILTIAZEM HCL COATED BEADS 00666966763 Active Jonel Hemphill MD Active NOVOLOG 100 UNIT/ML SC SOLN 70-140=0U 141-180=2 U 181-220=4U 221-260=6U 261- 300=8U 301-340=10U 893=231=74S 381-400=14U INSULIN ASPART 03469345075 Active Jonel Hemphill MD Active ACETAMINOPHEN 325 MG ORAL TABS 1 tab by mouth every 4 hours as needed ACETAMINOPHEN 14929915807 Active Jonel Hemphill MD Active FENTANYL 12 MCG/HR PT72 Apply to clean, dry skin and change every 72 hours FENTANYL 80210112976 No Longer Active Jonel Hemphill MD Active PHENYTOIN 50 MG CHEW 1 TAB PO BID PHENYTOIN 71377326007 No Longer Active Jonel Hemphill MD Active NORCO 5-325 MG TABS 1-2 TAB Q 6 HRS PRN HYDROCODONE- ACETAMINOPHEN 25849791027 No Longer Active Jonel Hemphill MD Active MULTIVITAMINS CAPS 1 DAILY MULTIPLE VITAMIN 04088326562 No Longer Active Jonel Hemphill MD Active BUPROPION HCL ER (SR) 150 MG [id number] 1 twice a day for depression BUPROPION HCL 57597590235 No Longer Active Jonel Hemphill MD Active LISINOPRIL 20 MG TABS 1 tablet by mouth daily LISINOPRIL 23229764986 Active Jonel Hemphill MD Active ULORIC 40 MG ORAL TABS 1 daily for gout. FEBUXOSTAT 93318204001 No Longer Active Jonel Hemphill MD Active CELEXA 20 MG TABS 1 tablet by mouth daily CITALOPRAM HYDROBROMIDE 87626365844 Active Marleni Raida Active ZOFRAN 4 MG TABS 1 po q6hr PRN Nausea ONDANSETRON HCL 92463141661 Active Jonel Hemphill MD Active XARELTO 20 MG ORAL TABS 1 daily RIVAROXABAN 83986104464 Active Jonel Hemphill MD Active JANUVIA 100 MG ORAL TABS 2 tabs daily SITAGLIPTIN PHOSPHATE 57625815373 Active Jonel Hemphill MD Active CELEXA 20 MG TABS Take 1 tablet 1x daily CITALOPRAM HYDROBROMIDE 92715492797 No Longer Active Jonel Hemphill MD Active ATIVAN 0.5 MG TABS Take 1 tablet 2x daily PRN LORAZEPAM 46793629528 No Longer Active Jonel Hemphill MD Active FUROSEMIDE 80 MG ORAL TABS 1 daily FUROSEMIDE 08840963355 Active Jonel Hemphill MD Active MECLIZINE HCL 25 MG CHEW TAB 1 four times a day as needed for dizziness 02/21 MECLIZINE HCL 63876744557 No Longer Active Jonel Hemphill MD Active ZYLOPRIM 300 MG TAB 1 BY MOUTH DAILY ALLOPURINOL 35376556902 No Longer Active Jonel Hemphill MD Active METOPROLOL TARTRATE 50 MG ORAL TABS 1 TAB BY MOUTH TWICE DAILY METOPROLOL TARTRATE 64964294190 No Longer Active Jonel Hemphill MD Active GABAPENTIN 400 MG ORAL CAPS 1 TAB BY MOUTH THREE TIMES DAILY 2015 GABAPENTIN 39126014243 No Longer Active Jonel Hemphill MD Active HYDROCODONE-ACETAMINOPHEN 7.5-325 MG TABS 1 TAB PO Q 6 HRS PRN HYDROCODONE-ACETAMINOPHEN 10627359136 Active Jonel Hemphill MD Active METFORMIN HCL 1000 MG TABS 1 tablet by mouth twice daily METFORMIN HCL 58272996639 Active Marleni Romero Active KLOR-CON 20 MEQ ORAL PACK 1 BY MOUTH DAILY POTASSIUM CHLORIDE 13209974955 Active Marleni Romero Active A+D FIRST AID EXT OINT APPLY OINTMENT AND RUFINO WRAPS TO LOWER EXTEREMETIES DAILY SKIN PROTECTANTS, MISC. 18654176289 Active Jonel Hemphill MD Active NYSTATIN 817961 UNIT/GM EXT OINT APPLY PRN TID TO GAULDING/RASH IN ABDOMINAL FOLDS NYSTATIN 62750015949 Active Jonel Hemphill MD Active GABAPENTIN 300 MG CAPS 1 CAP PO TID GABAPENTIN 27185871599 No Longer Active Jonel Hemphill MD Active DILANTIN 100 MG ORAL CAPS 1 THREE TIMES DAILY FOR SEIZURES PHENYTOIN SODIUM EXTENDED 46822444108 Active Marleni Romero Active CPAP APPLY AT HS CPAP Active Jonel Hemphill MD Active HYDROCODONE-ACETAMINOPHEN 7.5-325 MG TABS 1 q 6 hrs prn HYDROCODONE-ACETAMINOPHEN 64537736085 No Longer Active Jonel Hemphill MD Active DILANTIN 100 MG CAPS 3 cap tid PHENYTOIN SODIUM EXTENDED 55664096113 No Longer Active Jonel Hemphill MD Active BUDEPRION SR 150 MG [id number] 1 bid BUPROPION HCL 52019808265 No Longer Active Jonel Hemphill MD Active ALLOPURINOL 300 MG TABS 1 qd ALLOPURINOL 31644118937 No Longer Active Jonel Hemphill MD Active COZAAR 100 MG TABS 1 qd LOSARTAN POTASSIUM 81837179622 No Longer Active Jonel Hemphill MD Active CVS VITAMIN C 500 MG TABS 1 po daily ASCORBIC ACID 45091469617 No Longer Active Jonel Hemphill MD Active MIRALAX POWD 17 gms in 4 oz water or juice daily POLYETHYLENE GLYCOL 3350 31627295080 No Longer Active Jonel Hemphill MD Active POTASSIUM CHLORIDE CHELA ER 20 MEQ CR-TABS 1 tab PO daily POTASSIUM CHLORIDE CHELA CR 36446128806 No Longer Active Jonel Hemphill MD Active AMBIEN 10 MG TAB 1 tab by mouth at bedtime as needed for sleep ZOLPIDEM TARTRATE 50587905036 No Longer Active Jonel Hemphill MD Active SULFAMETHOXAZOLE-TMP DS 800-160 MG TABS 1 TAB PO BID SULFAMETHOXAZOLE-TRIMETHOPRIM 84983957300 No Longer Active Jonel Hemphill MD Active LEVEMIR 100 UNIT/ML SOLN 5 units sub-q at bedtime INSULIN DETEMIR 39470273357 No Longer Active Tova Perez Active MOBIC 15 MG TABS 1 tab PO daily for arthritis pain MELOXICAM 78099523056 No Longer Active Tova Perez Active GLUCAGEN 1 MG SOLR INJECT 1MG IM IF BS LESS THAN 60 & RES. IS UNABLE TO SWALLOW GLUCAGON HCL (RDNA) 50060084409 No Longer Active Tova Perez Active CVS MILK OF MAGNESIA 1200 MG/15ML SUSP 30 ml daily for constipation MAGNESIUM HYDROXIDE 31773474945 No Longer Active Tova Perez Active IMDUR 120 MG [id number] 1 qd ISOSORBIDE MONONITRATE 15275631323 No Longer Active Tova Perez Active NEURONTIN 400 MG CAPS Take one by mouth 3 times daily, morning, afternoon and evening.] GABAPENTIN 80302008703 No Longer Active Tova Perez Active ANTIVERT 25 MG TABS 1 q 6 hrs prn MECLIZINE HCL 38265449636 No Longer Active Jonel Hemphill MD Active CLONIDINE HCL 0.2 MG TABS 1 q 8 hrs as needed -greater than 160-htn CLONIDINE HCL 92981435907 No Longer Active Jonel Hemphill MD Active AMBIEN 10 MG TABS 1 q hs prn ZOLPIDEM TARTRATE 32416132586 No Longer Active Jonel Hemphill MD Active GNP THERAPEUTIC-M TABS 1 qd MULTIPLE VITAMINS- MINERALS 05534987112 No Longer Active Jonel Hemphill MD Active METOPROLOL TARTRATE 50 MG TABS 1 bid METOPROLOL TARTRATE 11185826422 No Longer Active Jonel Hemphill MD Active METFORMIN HCL 500 MG TABS 1 bod with food METFORMIN HCL 04582617749 No Longer Active Jonel Hemphill MD Active LISINOPRIL 40 MG TABS 1 qd LISINOPRIL 71947206985 No Longer Active Jonel Hemphill MD Active HYDROCHLOROTHIAZIDE 25 MG TABS 1 qd HYDROCHLOROTHIAZIDE 16755694224 No Longer Active Jonel Hemphill MD Active DURAGESIC-25 25 MCG/HR PT72 place 1 patch on the skin q72hrs for pain FENTANYL 63685807320 No Longer Active Jonel Hemphill MD Active FENTANYL 75 MCG/HR PT72 place 1 patch on skin q72hrs fr pain 2012 FENTANYL 95359199612 No Longer Active Jonel Hemphill MD Active FUROSEMIDE 40 MG TABS 1 q am FUROSEMIDE 89181896070 No Longer Active Jonel Hemphill MD Active HEPARIN (PORCINE) LOCK FLUSH 100 UNIT/ML SOLN Flush port a cath monthly every three week on with Heparin and NS HEPARIN LOCK FLUSH 82655564222 Active Jonel Hemphill MD Active FENTANYL 100 MCG/HR PT72 Apply every 3 days FENTANYL 52584403731 Active Jonel Hemphill MD Active FENTANYL 25 MCG/HR PT72 Apply to clean skin and change every 72 hours. 07/03 FENTANYL 26944419524 No Longer Active Jonel Hemphill MD Active FENTANYL 50 MCG/HR PT72 place 1 patch on skin q72 hours FENTANYL 06481678106 No Longer Active Mayco Shah APRN Active DURAGESIC-12 12 MCG/HR PT72 APPLY PATCH TO SKIN AND CHANGE EVERY 72 HOURS, ROTATE SITES FENTANYL 81792471730 No Longer Active Fozia HERNANDEZ Active FUROSEMIDE 20 MG TABS 1 qd FUROSEMIDE 69082794886 No Longer Active Mahogany Pelican Active ADULT ASPIRIN EC LOW STRENGTH 81 MG TBEC 1 qd ASPIRIN 03553216777 Active MARY Perez Active FUROSEMIDE 20 MG TABS 1 qd FUROSEMIDE 20 MG TABS 531597 FUROSEMIDE Inactive DURAGESIC-12 12 MCG/HR PT72 APPLY PATCH TO SKIN AND CHANGE EVERY 72 HOURS, ROTATE SITES DURAGESIC-12 12 MCG/HR PT72 646970 FENTANYL Inactive FENTANYL 50 MCG/HR PT72 place 1 patch on skin q72 hours FENTANYL 50 MCG/HR PT72 578140 FENTANYL Inactive FUROSEMIDE 40 MG TABS 1 q am FUROSEMIDE 40 MG TABS 683238 FUROSEMIDE Inactive FENTANYL 75 MCG/HR PT72 place 1 patch on skin q72hrs fr pain 2012 FENTANYL 75 MCG/HR PT72 514130 FENTANYL Inactive DURAGESIC-25 25 MCG/HR PT72 place 1 patch on the skin q72hrs for pain DURAGESIC-25 25 MCG/HR PT72 095442 FENTANYL Inactive HYDROCHLOROTHIAZIDE 25 MG TABS 1 qd HYDROCHLOROTHIAZIDE 25 MG TABS 646214 HYDROCHLOROTHIAZIDE Inactive LISINOPRIL 40 MG TABS 1 qd LISINOPRIL 40 MG TABS 943830 LISINOPRIL Inactive METFORMIN HCL 500 MG TABS 1 bod with food METFORMIN HCL 500 MG TABS 853245 METFORMIN HCL Inactive METOPROLOL TARTRATE 50 MG TABS 1 bid METOPROLOL TARTRATE 50 MG TABS 584516 METOPROLOL TARTRATE Inactive GNP THERAPEUTIC-M TABS 1 qd GNP THERAPEUTIC-M TABS MULTIPLE VITAMINS-MINERALS Inactive AMBIEN 10 MG TABS 1 q hs prn AMBIEN 10 MG TABS 828781 ZOLPIDEM TARTRATE Inactive CLONIDINE HCL 0.2 MG TABS 1 q 8 hrs as needed -greater than 160-htn CLONIDINE HCL 0.2 MG TABS 930884 CLONIDINE HCL Inactive ANTIVERT 25 MG TABS 1 q 6 hrs prn ANTIVERT 25 MG TABS MECLIZINE HCL Inactive NEURONTIN 400 MG CAPS Take one by mouth 3 times daily, morning, afternoon and evening.] NEURONTIN 400 MG CAPS 416058 GABAPENTIN Inactive IMDUR 120 MG [id number] 1 qd IMDUR 120 MG [id number] ISOSORBIDE MONONITRATE Inactive CVS MILK OF MAGNESIA [...] for arthritis pain MOBIC 15 MG TABS 823388 MELOXICAM Inactive LEVEMIR 100 UNIT/ML SOLN 5 units sub-q at bedtime LEVEMIR 100 UNIT/ML SOLN INSULIN DETEMIR Inactive SULFAMETHOXAZOLE-TMP DS 800-160 MG TABS 1 TAB PO BID SULFAMETHOXAZOLE-TMP DS 800-160 MG TABS 773149 SULFAMETHOXAZOLE-TRIMETHOPRIM Inactive AMBIEN 10 MG TAB 1 tab by mouth at bedtime as needed for sleep AMBIEN 10 MG TAB 211007 ZOLPIDEM TARTRATE Inactive POTASSIUM CHLORIDE CHELA ER 20 MEQ CR-TABS 1 tab PO daily POTASSIUM CHLORIDE CHELA ER 20 MEQ CR-TABS POTASSIUM CHLORIDE CEHLA CR Inactive MIRALAX POWD 17 gms in 4 oz water or juice daily MIRALAX POWD 035925 POLYETHYLENE GLYCOL 3350 Inactive CVS VITAMIN C 500 MG TABS 1 po daily CVS VITAMIN C 500 MG TABS 063974 ASCORBIC ACID Inactive COZAAR 100 MG TABS 1 qd COZAAR 100 MG TABS 359656 LOSARTAN POTASSIUM Inactive ALLOPURINOL 300 MG TABS 1 qd ALLOPURINOL 300 MG TABS 196083 ALLOPURINOL Inactive BUDEPRION SR 150 MG [id number] 1 bid BUDEPRION SR 150 MG [id number]-VHE BUPROPION HCL Inactive DILANTIN 100 MG CAPS 3 cap tid DILANTIN 100 MG CAPS 591274 PHENYTOIN SODIUM EXTENDED Inactive HYDROCODONE-ACETAMINOPHEN 7.5-325 MG TABS 1 q 6 hrs prn HYDROCODONE-ACETAMINOPHEN 7.5-325 MG TABS 163588 HYDROCODONE- ACETAMINOPHEN Inactive GABAPENTIN 300 MG CAPS 1 CAP PO TID GABAPENTIN 300 MG CAPS 435862 GABAPENTIN Inactive GABAPENTIN 400 MG ORAL CAPS 1 TAB BY MOUTH THREE TIMES DAILY 2015 GABAPENTIN 400 MG ORAL CAPS 257566 GABAPENTIN Inactive METOPROLOL TARTRATE 50 MG ORAL TABS 1 TAB BY MOUTH TWICE DAILY METOPROLOL TARTRATE 50 MG ORAL TABS 647046 METOPROLOL TARTRATE Inactive ZYLOPRIM 300 MG TAB 1 BY MOUTH DAILY ZYLOPRIM 300 MG TAB 063699 ALLOPURINOL Inactive MECLIZINE HCL 25 MG CHEW TAB 1 four times a day as needed for dizziness 02/21 MECLIZINE HCL 25 MG CHEW TAB 304647 MECLIZINE HCL Inactive ATIVAN 0.5 MG TABS Take 1 tablet 2x daily PRN ATIVAN 0.5 MG TABS 204830 LORAZEPAM Inactive CELEXA 20 MG TABS Take 1 tablet 1x daily CELEXA 20 MG TABS 151170 CITALOPRAM HYDROBROMIDE Inactive ULORIC 40 MG ORAL TABS 1 daily for gout. ULORIC 40 MG ORAL TABS FEBUXOSTAT Inactive BUPROPION HCL ER (SR) 150 MG [id number] 1 twice a day for depression BUPROPION HCL ER (SR) 150 MG [id number] BUPROPION HCL Inactive MULTIVITAMINS CAPS 1 DAILY MULTIVITAMINS CAPS MULTIPLE VITAMIN Inactive NORCO 5-325 MG TABS 1-2 TAB Q 6 HRS PRN NORCO 5-325 MG TABS 559479 HYDROCODONE-ACETAMINOPHEN Inactive PHENYTOIN 50 MG CHEW 1 TAB PO BID PHENYTOIN 50 MG CHEW 0734646 PHENYTOIN Inactive FENTANYL 12 MCG/HR PT72 Apply to clean, dry skin and change every 72 hours FENTANYL 12 MCG/HR PT72 551261 FENTANYL Inactive FENTANYL 25 MCG/HR PT72 Apply to clean skin and change every 72 hours. 2013/ 05/22 FENTANYL 25 MCG/HR PT72 593123 FENTANYL Inactive Advance Directives Directive Description Start [...] mg/dL Encounters Code Encounter Date Provider Facility CPT-53744 Level 4 Est. Patient 18:47:35 SALES AND SERVICE SPECIALIST Jonel Hemphill MD [facility] CPT-79567 Level 4 Est. Patient 10:04:48 SALES AND SERVICE SPECIALIST Jonel Hemphill MD [facility] CPT-82800 Level 3 Est. Patient 19:05:03 CDT Jonel Hemphill MD [facility] CPT-39867 Level 3 Est. Patient 17:30:47 CDT Kevin Link MD [facility]-78370 Level 3 Est. Patient 18:04:07 CDT Jonel Hemphill MD [facility] CPT-34895 Level 3 Est. Patient 17:18:03 CDT Jonel Hemphill MD [facility] CPT-04171 Level 3 Est. Patient 21:58:03 SALES AND SERVICE SPECIALIST Jonel Hemphill MD [facility] CPT-55754 Level 4 Est. Patient 18:03:14 CDT Jonel [facility]-18305 Level 4 Est. Patient 13:24:53 CDT Jonel [facility]-23382 Level 4 Est. Patient 09:15:44 CDT Jonel [facility]-90225 Level 4 Est. Patient 19:16:01 CDT Jonel Hemphill MD [facility]-07270 Level 4 Est. Patient 11:25:16 CDT Jonel Hemphill MD [facility] CPT-46760 Level 4 Est. Patient 09:00:40 CDT [facility]-00612 Level 4 Est. Patient 14:53:58 CDT Jonel Hemphill MD [facility]-16857 Level 4 Est. Patient 22:59:01 CDT Jonel Hemphill MD [facility]-34495 Level 4 Est. Patient 09:29:57 CDT Jonel Hemphill MD [facility]-90518 Level 4 Est. Patient 12:35:53 SALES AND SERVICE SPECIALIST Jonel Hemphill MD [facility]-28146 Level 4 Est. Patient 22:36:09 SALES AND SERVICE SPECIALIST Jonel Hemphill MD [facility]-86482 Level 2 Est. Patient 15:14:15 SALES AND SERVICE SPECIALIST Mayco Shah APRN [facility]-47113 Level 4 Est. Patient 10:36:22 SALES AND SERVICE SPECIALIST Jonel Hemphill MD [facility] CPT-74047 Level 4 Est. Patient 22:01:13 SALES AND SERVICE SPECIALIST Jonel Hemphill MD [facility]-75518 Level 3 Est. Patient 21:50:37 SALES AND SERVICE SPECIALIST Jonel Hemphill MD [facility] CPT-61634 Level 4 Est. Patient 15:02:43 CDT Rubin Pierre MD [facility]-66738 Level 4 Est. Patient 14:27:35 CDT Jonel Hemphill MD [facility]-08369 Level 4 Est. Patient 12:41:17 CDT Jonel Hemphill MD [facility]-35883 Level 4 Est. Patient 16:18:55 CDT Jonel Hemphill MD [facility] CPT-76656 Level 4 Est. Patient 17:58:05 CDT Jonel Hemphill MD [facility] CPT-43491 Level 4 Est. Patient 22:10:06 CDT Jonel Hemphill MD [facility] CPT-01672 Level 4 Est. Patient 13:22:09 CDT Jonel Hemphill MD [facility] CPT-53140 Level 4 Est. Patient 22:52:17 SALES AND SERVICE SPECIALIST Jonel Hemphill MD [facility] CPT-81374 Level 3 Est. Patient 22:34:10 SALES AND SERVICE SPECIALIST Jonel Hemphill MD [facility] CPT-34319 Level 4 Est. Patient 07:49:20 SALES AND SERVICE SPECIALIST Jonel Hemphill MD [facility] Skilled CPT-99121 Level 3 Est. Patient 08:28:27 SALES AND SERVICE SPECIALIST Jonel Hemphill MD [facility] Procedures Code Procedure Name Date Entry Date Standard Description CPT-10536 Level 3 Jail 17:57:17 SALES AND SERVICE SPECIALIST CPT-39648 Level 3 Jail 21:14:15 SALES AND SERVICE SPECIALIST CPT-90487 Level 3 Jail 15:38:24 CDT CPT-34384 Level 3 Jail 08:18:30 CDT CPT-23962 Level 3 Jail 19:03:14 CDT CPT-08129 Level 3 Jail 17:42:11 CDT CPT-34329 Level 3 Jail 16:04:10 CDT CPT-49247 Level 3 Jail 19:38:15 SALES AND SERVICE SPECIALIST CPT-26471 Level 3 Jail 19:28:48 SALES AND SERVICE SPECIALIST CPT-05237 Level 3 Jail 18:02:20 SALES AND SERVICE SPECIALIST CPT-54831 Level 3 Jail 15:02:14 SALES AND SERVICE SPECIALIST CPT-50775 Level 3 Jail 12:25:37 CDT CPT-40255 Level 3 Jail 12:48:39 CDT CPT-85916 Level 3 Jail 17:39:14 CDT CPT-69169 Level 3 Jail 13:32:58 CDT CPT-67967 Level 3 Jail 17:43:43 CDT CPT-89938 Level 3 Jail 12:03:33 SALES AND SERVICE SPECIALIST CPT-05505 Level 3 Jail 18:47:28 SALES AND SERVICE SPECIALIST CPT-38940 Level 3 Jail 17:35:26 SALES AND SERVICE SPECIALIST CPT-26400 Level 3 Jail 18:44:49 SALES AND SERVICE SPECIALIST CPT-53602 Level 3 Jail 18:17:33 CDT CPT-33523 Level 3 Jail 09:25:33 CDT CPT-24887 Level 3 Jail 19:11:57 CDT CPT-28716 Level 3 Jail 09:25:52 CDT CPT-31057 Level 3 Jail 14:23:59 CDT CPT-34683 Level 3 Jail 12:09:43 CDT CPT-90340 Level 3 Jail 09:37:40 CDT CPT-23683 Level 3 Jail 18:23:02 CDT CPT-14140 Level 3 Jail 14:09:06 CDT CPT-33299 Level 3 Jail 12:43:27 SALES AND SERVICE SPECIALIST CPT-20901 Postop F/U Visit 14:10:15 SALES AND SERVICE SPECIALIST CPT-14173 [facility] 17:07:14 SALES AND SERVICE SPECIALIST CPT-17551 Level 3 Jail 16:14:37 SALES AND SERVICE SPECIALIST CPT-73297 Port a cath flush 11:47:42 CDT CPT-74969 Port a cath flush 08:29:49 CDT CPT-OV Office Visit 14:27:58 SALES AND SERVICE SPECIALIST
--- OUTSIDE RECORDS SUMMARY | 2016-08-07 12:36 | XMS REPORT | Clinical Summary ---
Author Author Admin, [place] Organization [facility] Address Unknown Phone Unavailable Allergies, Adverse Reactions, Alerts Allergy Name Reaction Description Start Date Severity Status Provider PENICILLIN Critical Active Shelbianajaida Giles, RMA Conditions or Problems Problem Name 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, OIL FIELD PUMPER V58.69 Resolved Jonel Hemphill MD Long-term [...] atherosclerosis of unspecified type of vessel, port gamble or graft FH DIABETES V18.0 Resolved Jonel [...] atherosclerosis of unspecified type of vessel, port gamble or graft CONSTIPATION 564.00 Resolved Jonel Hemphill [...] or arousal from sleep Bronchitis-Acute 466.0 Inactive Jnoel Hemphill MD Acute bronchitis Foot pain, right [...] Obstructive sleep apnea (adult) (pediatric) 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 USE, OIL FIELD PUMPER ICD-V58.69 Inactive Jonel Hemphill MD DIABETES, [...] skin and change every 72 hours FENTANYL 36436484717 Active Jonel Hemphill MD Active MIRALAX POWD 17 gms in 4 oz water or juice daily POLYETHYLENE GLYCOL 3350 73776837840 Active Jonel Hemphill MD Active CVS MELATONIN 3 MG ORAL TABS 2 tabs at hs MELATONIN 11170807661 Active Jonel Hemphill MD Active MAGNESIUM GLUCONATE 500 MG ORAL TABS 1 tab twice daily MAGNESIUM GLUCONATE 84534483628 Active Jonel Hemphill MD Active OMEPRAZOLE 20 MG CPDR 1 tablet by mouth daily OMEPRAZOLE 46938529648 Active Jonel Hemphill MD Active DIGOXIN 125 MCG ORAL TABS 1 daily DIGOXIN 67059244301 Active Jonel Hemphill MD Active DILTIAZEM CD 240 MG ORAL [id number] 1 daily DILTIAZEM HCL COATED BEADS 87675248408 Active Jonel Hemphill MD Active NOVOLOG 100 UNIT/ML SC SOLN 70-140=0U 141-180=2 U 181-220=4U 221-260=6U 261- 300=8U 301-340=10U 314=496=29R 381-400=14U INSULIN ASPART 86617621181 Active Jonel Hemphill MD Active ACETAMINOPHEN 325 MG ORAL TABS 1 tab by mouth every 4 hours as needed ACETAMINOPHEN 94028645453 Active Jonel Hemphill MD Active FENTANYL 12 MCG/HR PT72 Apply to clean, dry skin and change every 72 hours FENTANYL 72675699417 No Longer Active Jonel Hemphill MD Active PHENYTOIN 50 MG CHEW 1 TAB PO BID PHENYTOIN 60483977103 No Longer Active Jonel Hemphill MD Active NORCO 5-325 MG TABS 1-2 TAB Q 6 HRS PRN HYDROCODONE- ACETAMINOPHEN 52274831956 No Longer Active Jonel Hemphill MD Active MULTIVITAMINS CAPS 1 DAILY MULTIPLE VITAMIN 91999917716 No Longer Active Jonel Hemphill MD Active BUPROPION HCL ER (SR) 150 MG [id number] 1 twice a day for depression BUPROPION HCL 02796594367 No Longer Active Jonel Hemphill MD Active LISINOPRIL 20 MG TABS 1 tablet by mouth daily LISINOPRIL 74798740800 Active Jonel Hemphill MD Active ULORIC 40 MG ORAL TABS 1 daily for gout. FEBUXOSTAT 88722465516 No Longer Active Jonel Hemphill MD Active CELEXA 20 MG TABS 1 tablet by mouth daily CITALOPRAM HYDROBROMIDE 74796152638 Active Marleni Raida Active ZOFRAN 4 MG TABS 1 po q6hr PRN Nausea ONDANSETRON HCL 94305067806 Active Jonel Hemphill MD Active XARELTO 20 MG ORAL TABS 1 daily RIVAROXABAN 65279976172 Active Jonel Hemphill MD Active JANUVIA 100 MG ORAL TABS 2 tabs daily SITAGLIPTIN PHOSPHATE 11165229764 Active Jonel Hemphill MD Active CELEXA 20 MG TABS Take 1 tablet 1x daily CITALOPRAM HYDROBROMIDE 22768070280 No Longer Active Jonel Hemphill MD Active ATIVAN 0.5 MG TABS Take 1 tablet 2x daily PRN LORAZEPAM 04230907099 No Longer Active Jonel Hemphill MD Active FUROSEMIDE 80 MG ORAL TABS 1 daily FUROSEMIDE 70071412763 Active Jonel Hemphill MD Active MECLIZINE HCL 25 MG CHEW TAB 1 four times a day as needed for dizziness 02/21 MECLIZINE HCL 21759573669 No Longer Active Jonel Hemphill MD Active ZYLOPRIM 300 MG TAB 1 BY MOUTH DAILY ALLOPURINOL 50816549525 No Longer Active Jonel Hemphill MD Active METOPROLOL TARTRATE 50 MG ORAL TABS 1 TAB BY MOUTH TWICE DAILY METOPROLOL TARTRATE 39763968866 No Longer Active Jonel Hemphill MD Active GABAPENTIN 400 MG ORAL CAPS 1 TAB BY MOUTH THREE TIMES DAILY 2015 GABAPENTIN 94629084241 No Longer Active Jonel Hemphill MD Active HYDROCODONE-ACETAMINOPHEN 7.5-325 MG TABS 1 TAB PO Q 6 HRS PRN HYDROCODONE-ACETAMINOPHEN 64395464211 Active Jonel Hemphill MD Active METFORMIN HCL 1000 MG TABS 1 tablet by mouth twice daily METFORMIN HCL 07292850275 Active Marleni Romero Active KLOR-CON 20 MEQ ORAL PACK 1 BY MOUTH DAILY POTASSIUM CHLORIDE 90659230552 Active Marleni Romero Active A+D FIRST AID EXT OINT APPLY OINTMENT AND RUFINO WRAPS TO LOWER EXTEREMETIES DAILY SKIN PROTECTANTS, MISC. 94168621368 Active Jonel Hemphill MD Active NYSTATIN 278616 UNIT/GM EXT OINT APPLY PRN TID TO GAULDING/RASH IN ABDOMINAL FOLDS NYSTATIN 57915539586 Active Jonel Hemphill MD Active GABAPENTIN 300 MG CAPS 1 CAP PO TID GABAPENTIN 45192965995 No Longer Active Jonel Hemphill MD Active DILANTIN 100 MG ORAL CAPS 1 THREE TIMES DAILY FOR SEIZURES PHENYTOIN SODIUM EXTENDED 15353529062 Active Marleni Romero Active CPAP APPLY AT HS CPAP Active Jonel Hemphill MD Active HYDROCODONE-ACETAMINOPHEN 7.5-325 MG TABS 1 q 6 hrs prn HYDROCODONE-ACETAMINOPHEN 03748849166 No Longer Active Jonel Hemphill MD Active DILANTIN 100 MG CAPS 3 cap tid PHENYTOIN SODIUM EXTENDED 10043055242 No Longer Active Joenl Hemphill MD Active BUDEPRION SR 150 MG [id number] 1 bid BUPROPION HCL 48385804430 No Longer Active Jonel Hemphill MD Active ALLOPURINOL 300 MG TABS 1 qd ALLOPURINOL 77739937197 No Longer Active Jonel Hemphill MD Active COZAAR 100 MG TABS 1 qd LOSARTAN POTASSIUM 07240329645 No Longer Active Jonel Hemphill MD Active CVS VITAMIN C 500 MG TABS 1 po daily ASCORBIC ACID 32703048251 No Longer Active Jonel Hemphill MD Active MIRALAX POWD 17 gms in 4 oz water or juice daily POLYETHYLENE GLYCOL 3350 18776462439 No Longer Active Jonel Hemphill MD Active POTASSIUM CHLORIDE CHELA ER 20 MEQ CR-TABS 1 tab PO daily POTASSIUM CHLORIDE CHELA CR 13146441391 No Longer Active Jonel Hemphill MD Active AMBIEN 10 MG TAB 1 tab by mouth at bedtime as needed for sleep ZOLPIDEM TARTRATE 55577964932 No Longer Active Jonel Hemphill MD Active SULFAMETHOXAZOLE-TMP DS 800-160 MG TABS 1 TAB PO BID SULFAMETHOXAZOLE-TRIMETHOPRIM 80064903679 No Longer Active Jonel Hemphill MD Active LEVEMIR 100 UNIT/ML SOLN 5 units sub-q at bedtime INSULIN DETEMIR 26853025985 No Longer Active Tova Perez Active MOBIC 15 MG TABS 1 tab PO daily for arthritis pain MELOXICAM 37670028722 No Longer Active Tova Perez Active GLUCAGEN 1 MG SOLR INJECT 1MG IM IF BS LESS THAN 60 & RES. IS UNABLE TO SWALLOW GLUCAGON HCL (RDNA) 69489728690 No Longer Active Tova Perez Active CVS MILK OF MAGNESIA 1200 MG/15ML SUSP 30 ml daily for constipation MAGNESIUM HYDROXIDE 01926968262 No Longer Active Tova Perez Active IMDUR 120 MG [id number] 1 qd ISOSORBIDE MONONITRATE 40593193043 No Longer Active Tova Perez Active NEURONTIN 400 MG CAPS Take one by mouth 3 times daily, morning, afternoon and evening.] GABAPENTIN 88893268908 No Longer Active Tova Perez Active ANTIVERT 25 MG TABS 1 q 6 hrs prn MECLIZINE HCL 21374047272 No Longer Active Jonel Hemphill MD Active CLONIDINE HCL 0.2 MG TABS 1 q 8 hrs as needed -greater than 160-htn CLONIDINE HCL 06925548446 No Longer Active Jonel Hemphill MD Active AMBIEN 10 MG TABS 1 q hs prn ZOLPIDEM TARTRATE 70657254932 No Longer Active Jonel Hemphill MD Active GNP THERAPEUTIC-M TABS 1 qd MULTIPLE VITAMINS- MINERALS 90500930408 No Longer Active Jonel Hemphill MD Active METOPROLOL TARTRATE 50 MG TABS 1 bid METOPROLOL TARTRATE 55831588768 No Longer Active Jonel Hemphill MD Active METFORMIN HCL 500 MG TABS 1 bod with food METFORMIN HCL 48627305421 No Longer Active Jonel Hemphill MD Active LISINOPRIL 40 MG TABS 1 qd LISINOPRIL 50836668923 No Longer Active Jonel Hemphill MD Active HYDROCHLOROTHIAZIDE 25 MG TABS 1 qd HYDROCHLOROTHIAZIDE 24536157169 No Longer Active Jonel Hemphill MD Active DURAGESIC-25 25 MCG/HR PT72 place 1 patch on the skin q72hrs for pain FENTANYL 98380563633 No Longer Active Jonel Hemphill MD Active FENTANYL 75 MCG/HR PT72 place 1 patch on skin q72hrs fr pain 2012 FENTANYL 15439221047 No Longer Active Jonel Hemphill MD Active FUROSEMIDE 40 MG TABS 1 q am FUROSEMIDE 72230364793 No Longer Active Jonel Hemphill MD Active HEPARIN (PORCINE) LOCK FLUSH 100 UNIT/ML SOLN Flush port a cath monthly every three week on with Heparin and NS HEPARIN LOCK FLUSH 37397497574 Active Jonel Hemphill MD Active FENTANYL 100 MCG/HR PT72 Apply every 3 days FENTANYL 73147052526 Active Jonel Hemphill MD Active FENTANYL 25 MCG/HR PT72 Apply to clean skin and change every 72 hours. 07/03 FENTANYL 65719451341 No Longer Active Jonel Hemphill MD Active FENTANYL 50 MCG/HR PT72 place 1 patch on skin q72 hours FENTANYL 89469124184 No Longer Active Mayco Shah APRN Active DURAGESIC-12 12 MCG/HR PT72 APPLY PATCH TO SKIN AND CHANGE EVERY 72 HOURS, ROTATE SITES FENTANYL 33714281706 No Longer Active Fozia HERNANDEZ Active FUROSEMIDE 20 MG TABS 1 qd FUROSEMIDE 42623064468 No Longer Active Mahogany [place] Active ADULT ASPIRIN EC LOW STRENGTH 81 MG TBEC 1 qd ASPIRIN 16462499618 Active MARY Perez Active ALLOPURINOL 300 MG TABS 1 qd ALLOPURINOL 300 MG TABS 072625 ALLOPURINOL Inactive AMBIEN 10 MG TAB 1 tab by mouth at bedtime as needed for sleep AMBIEN 10 MG TAB 053174 ZOLPIDEM TARTRATE Inactive AMBIEN 10 MG TABS 1 q hs prn AMBIEN 10 MG TABS 070367 ZOLPIDEM TARTRATE Inactive ANTIVERT 25 MG TABS 1 q 6 hrs prn ANTIVERT 25 MG TABS MECLIZINE HCL Inactive ATIVAN 0.5 MG TABS Take 1 tablet 2x daily PRN ATIVAN 0.5 MG TABS 162100 LORAZEPAM Inactive CLONIDINE HCL 0.2 MG TABS 1 q 8 hrs as needed -greater than 160-htn CLONIDINE HCL 0.2 MG TABS 872793 CLONIDINE HCL Inactive DILANTIN 100 MG CAPS 3 cap tid DILANTIN 100 MG CAPS 161002 PHENYTOIN SODIUM EXTENDED Inactive DURAGESIC-25 25 MCG/HR PT72 place 1 patch on the skin q72hrs for pain DURAGESIC-25 25 MCG/HR PT72 427761 FENTANYL Inactive FUROSEMIDE 20 MG TABS 1 qd FUROSEMIDE 20 MG TABS 192212 FUROSEMIDE Inactive FUROSEMIDE 40 MG TABS 1 q am FUROSEMIDE 40 MG TABS 238854 FUROSEMIDE Inactive HYDROCHLOROTHIAZIDE 25 MG TABS 1 qd HYDROCHLOROTHIAZIDE 25 MG TABS 865713 HYDROCHLOROTHIAZIDE Inactive MECLIZINE HCL 25 MG CHEW TAB 1 four times a day as needed for dizziness 02/21 MECLIZINE HCL 25 MG CHEW TAB 512721 MECLIZINE HCL Inactive METOPROLOL TARTRATE 50 MG ORAL TABS 1 TAB BY MOUTH TWICE DAILY METOPROLOL TARTRATE 50 MG ORAL TABS 770016 METOPROLOL TARTRATE Inactive METOPROLOL TARTRATE 50 MG TABS 1 bid METOPROLOL TARTRATE 50 MG TABS 225833 METOPROLOL TARTRATE Inactive MULTIVITAMINS CAPS 1 DAILY MULTIVITAMINS CAPS MULTIPLE VITAMIN Inactive ZYLOPRIM 300 MG TAB 1 BY MOUTH DAILY ZYLOPRIM 300 MG TAB 774707 ALLOPURINOL Inactive LISINOPRIL 40 MG TABS 1 qd LISINOPRIL 40 MG TABS 960360 LISINOPRIL Inactive METFORMIN HCL 500 MG TABS 1 bod with food METFORMIN HCL 500 MG TABS 980173 METFORMIN HCL Inactive PHENYTOIN 50 MG CHEW 1 TAB PO BID PHENYTOIN 50 MG CHEW 5727994 PHENYTOIN Inactive SULFAMETHOXAZOLE-TMP DS 800-160 MG TABS 1 TAB PO BID SULFAMETHOXAZOLE-TMP DS 800-160 MG TABS 322996 SULFAMETHOXAZOLE-TRIMETHOPRIM Inactive NEURONTIN 400 MG CAPS Take one by mouth 3 times daily, morning, afternoon and evening.] NEURONTIN 400 MG CAPS 117925 GABAPENTIN Inactive IMDUR 120 MG [id number] 1 qd IMDUR 120 MG [id number] ISOSORBIDE MONONITRATE Inactive GABAPENTIN 400 MG ORAL CAPS 1 TAB BY MOUTH THREE TIMES DAILY 2015 GABAPENTIN 400 MG ORAL CAPS 327241 GABAPENTIN Inactive GABAPENTIN 300 MG CAPS 1 CAP PO TID GABAPENTIN 300 MG CAPS 378402 GABAPENTIN Inactive CELEXA 20 MG TABS Take 1 tablet 1x daily CELEXA 20 MG TABS 961608 CITALOPRAM HYDROBROMIDE Inactive COZAAR 100 MG TABS 1 qd COZAAR 100 MG TABS 821797 LOSARTAN POTASSIUM Inactive MIRALAX POWD 17 gms in 4 oz water or juice daily MIRALAX POWD 243102 POLYETHYLENE GLYCOL 3350 Inactive GLUCAGEN 1 MG SOLR INJECT 1MG IM IF BS LESS THAN 60 & RES. IS UNABLE TO SWALLOW GLUCAGEN 1 MG SOLR GLUCAGON HCL (RDNA) Inactive FENTANYL 25 MCG/HR PT72 Apply to clean skin and change every 72 hours. 07/03 FENTANYL 25 MCG/HR PT72 018668 FENTANYL Inactive FENTANYL 50 MCG/HR PT72 place 1 patch on skin q72 hours FENTANYL 50 MCG/HR PT72 100244 FENTANYL Inactive FENTANYL 75 MCG/HR PT72 place 1 patch on skin q72hrs fr pain 2012 FENTANYL 75 MCG/HR PT72 536329 FENTANYL Inactive CVS VITAMIN C 500 MG TABS 1 po daily CVS VITAMIN C 500 MG TABS 499191 ASCORBIC ACID Inactive MOBIC 15 MG TABS 1 tab PO daily for arthritis pain MOBIC 15 MG TABS 228473 MELOXICAM Inactive NORCO 5-325 MG TABS 1-2 TAB Q 6 HRS PRN NORCO 5-325 MG TABS 491201 HYDROCODONE-ACETAMINOPHEN Inactive HYDROCODONE-ACETAMINOPHEN 7.5-325 MG TABS 1 q 6 hrs prn HYDROCODONE-ACETAMINOPHEN 7.5-325 MG TABS 023012 HYDROCODONE- ACETAMINOPHEN Inactive POTASSIUM CHLORIDE CHELA ER 20 MEQ CR-TABS 1 tab PO daily POTASSIUM CHLORIDE CHELA ER 20 MEQ CR-TABS POTASSIUM CHLORIDE CHELA CR Inactive BUPROPION HCL ER (SR) 150 MG [id number] 1 twice a day for depression BUPROPION HCL ER (SR) 150 MG [id number] BUPROPION HCL Inactive BUDEPRION SR 150 MG [id number] 1 bid BUDEPRION SR 150 MG RT95W-JTO BUPROPION HCL Inactive DURAGESIC-12 12 MCG/HR PT72 APPLY PATCH TO SKIN AND CHANGE EVERY 72 HOURS, ROTATE SITES DURAGESIC-12 12 MCG/HR PT72 151556 FENTANYL Inactive FENTANYL 12 MCG/HR PT72 Apply to clean, dry skin and change every 72 hours FENTANYL 12 MCG/HR PT72 007397 FENTANYL Inactive LEVEMIR 100 UNIT/ML SOLN 5 [...] mg/dL Encounters Code Encounter Date Provider Facility CPT-20611 Level 4 Est. Patient 10:04:48 TESTER/LIFT TRUCKER Jonel Hemphill MD [facility] CPT-42817 Level 3 Est. Patient 19:05:03 CDT Jonel Hemphill MD [facility] CPT-71233 Level 3 Est. Patient 17:30:47 CDT Kevin Link MD [facility]-61714 Level 3 Est. Patient 18:04:07 CDT Jonel Hemphill MD [facility] CPT-79382 Level 3 Est. Patient 17:18:03 CDT Jonel Hemphill MD [facility] CPT-08684 Level 3 Est. Patient 21:58:03 TESTER/LIFT TRUCKER Jonel Hemphill MD [facility] CPT-89597 Level 4 Est. Patient 18:03:14 CDT Jonel Hemphill MD [facility]-83146 Level 4 Est. Patient 13:24:53 CDT Jonel Hemphill MD [facility]-44921 Level 4 Est. Patient 09:15:44 CDT Jonel Hemphill MD [facility]-79009 Level 4 Est. Patient 19:16:01 CDT Jonel Hemphill MD [facility]-35908 Level 4 Est. Patient 11:25:16 CDT Jonel Hemphill MD [facility] CPT-58813 Level 4 Est. Patient 09:00:40 CDT Jonel Hemphill MD [facility]-93931 Level 4 Est. Patient 14:53:58 CDT Jonel Hemphill MD [facility] CPT-54144 Level 4 Est. Patient 22:59:01 CDT Jonel Hemphill MD [facility]-37869 Level 4 Est. Patient 09:29:57 CDT Jonel Hemphill MD [facility]-33269 Level 4 Est. Patient 12:35:53 TESTER/LIFT TRUCKER Jonel Hemphill MD [facility]-37973 Level 4 Est. Patient 22:36:09 TESTER/LIFT TRUCKER Jonel Hemphill MD [facility]-00665 Level 2 Est. Patient 15:14:15 TESTER/LIFT TRUCKER Mayco Shah APRN [facility] CPT-98641 Level 4 Est. Patient 10:36:22 TESTER/LIFT TRUCKER Jonel Hemphill MD [facility] CPT-83964 Level 4 Est. Patient 22:01:13 TESTER/LIFT TRUCKER Jonel Hemphill MD [facility]-43259 Level 3 Est. Patient 21:50:37 TESTER/LIFT TRUCKER Jonel Hemphill MD [facility] CPT-75808 Level 4 Est. Patient 15:02:43 CDT Rubin Pierre MD [facility]-34266 Level 4 Est. Patient 14:27:35 CDT Jonel Hemphill MD [facility]-15858 Level 4 Est. Patient 12:41:17 CDT Jonel Hemphill MD [facility]-60213 Level 4 Est. Patient 16:18:55 CDT Jonel Hemphill MD [facility]-19398 Level 4 Est. Patient 17:58:05 CDT Jonel Hemphill MD [facility]-04396 Level 4 Est. Patient 22:10:06 CDT Jonel Hemphill MD [facility]-39926 Level 4 Est. Patient 13:22:09 CDT Jonel Hemphill MD [facility]-58752 Level 4 Est. Patient 22:52:17 TESTER/LIFT TRUCKER Jonel Hemphill MD [facility]-46640 Level 3 Est. Patient 22:34:10 TESTER/LIFT TRUCKER Jonel Hemphill MD [facility]-47358 Level 4 Est. Patient 07:49:20 TESTER/LIFT TRUCKER Jonel Hemphill MD [facility] CPT-39629 Level 3 Est. Patient 08:28:27 TESTER/LIFT TRUCKER Jonel Hemphill MD [facility] Procedures Code Procedure Name Date Entry Date Standard Description CPT-76504 Level 3 Fdc 21:14:15 TESTER/LIFT TRUCKER CPT-40781 Level 3 Fdc 15:38:24 CDT CPT-30309 Level 3 Fdc 08:18:30 CDT CPT-99705 Level 3 Fdc 19:03:14 CDT CPT-55400 Level 3 Fdc 17:42:11 CDT CPT-59515 Level 3 Fdc 16:04:10 CDT CPT-22814 Level 3 Fdc 19:38:15 TESTER/LIFT TRUCKER CPT-04007 Level 3 Fdc 19:28:48 TESTER/LIFT TRUCKER CPT-12257 Level 3 Fdc 18:02:20 TESTER/LIFT TRUCKER CPT-89744 Level 3 Fdc 15:02:14 TESTER/LIFT TRUCKER CPT-44491 Level 3 Fdc 12:25:37 CDT CPT-86216 Level 3 Fdc 12:48:39 CDT CPT-16848 Level 3 Fdc 17:39:14 CDT CPT-76319 Level 3 Fdc 13:32:58 CDT CPT-59745 Level 3 Fdc 17:43:43 CDT CPT-14111 Level 3 Fdc 12:03:33 TESTER/LIFT TRUCKER CPT-14677 Level 3 Fdc 18:47:28 TESTER/LIFT TRUCKER CPT-77032 Level 3 Fdc 17:35:26 TESTER/LIFT TRUCKER CPT-79277 Level 3 Fdc 18:44:49 TESTER/LIFT TRUCKER CPT-03986 Level 3 Fdc 18:17:33 CDT CPT-67799 Level 3 Fdc 09:25:33 CDT CPT-32399 Level 3 Fdc 19:11:57 CDT CPT-52163 Level 3 Fdc 09:25:52 CDT CPT-58765 Level 3 Fdc 14:23:59 CDT CPT-19962 Level 3 Fdc 12:09:43 CDT CPT-02738 Level 3 Fdc 09:37:40 CDT CPT-50372 Level 3 Fdc 18:23:02 CDT CPT-70874 Level 3 Fdc 14:09:06 CDT CPT-90620 Level 3 Fdc 12:43:27 TESTER/LIFT TRUCKER CPT-03311 Postop F/U Visit 14:10:15 TESTER/LIFT TRUCKER CPT-30278 [facility] 17:07:14 TESTER/LIFT TRUCKER CPT-30483 Level 3 Fdc 16:14:37 TESTER/LIFT TRUCKER CPT-11423 Port a cath flush 11:47:42 CDT CPT-16306 Port a cath flush 08:29:49 CDT CPT-OV Office Visit 14:27:58 TESTER/LIFT TRUCKER
--- OUTSIDE RECORDS SUMMARY | 2016-08-07 12:38 | XMS REPORT ---
Author Author [facility] Medical Staff Organization [facility] Address [address], [place] [address] Phone [phone] Summary purpose TRANSITION OF CARE AUTO GENERATION [...] Date Performed Performing Physician [id number] CPT-4 ALS1-EMERGENCY 03-21-2015 ANTONIA HOGAN [id number] CPT-4 GROUND MILEAGE 03-21-2015 ANTONIA HOGAN Functional status No functional [...]
--- OUTSIDE RECORDS SUMMARY | 2016-08-07 12:38 | XMS REPORT | Clinical Summary ---
Author Author Admin, [place] Organization [facility] Address Unknown Phone Unavailable Allergies, Adverse Reactions, 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, STONE LAYER V58.69 Resolved Jonel Hemphill MD Long-term [...] Coronary atherosclerosis of unspecified type of vessel, ramona or graft FH DIABETES V18.0 Resolved Jonel [...] Coronary atherosclerosis of unspecified type of vessel, ramona or graft CONSTIPATION 564.00 Resolved Jonel Hemphill [...] the body Cellulitis, leg, right 682.6 Inactive oJnel Hemphill MD Cellulitis and abscess of leg, [...] Obstructive sleep apnea (adult) (pediatric) 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 USE, STONE LAYER ICD-V58.69 Inactive Jonel Hemphill MD DIABETES, TYPE 2 ICD-250.00 Inactive Jonel Hemphill MD CORONARY HEART DISEASE ICD-414.00 Inactive Jonel Hemphill MD FH DIABETES ICD-V18.0 Inactive Jonel Hemphill MD FH STROKE ICD-V17.1 Inactive Jonel Hemphill MD FAMILY HISTORY COLON CANCER-MOTHER ICD-V16.0 Inactive Jonel Hemphill MD VENOUS INSUFFICIENCY ICD-459.81 Inactive Jnoel Hemphill MD SLEEP APNEA ICD-780.57 Inactive Jonel [...] 1 tablet by mouth daily CITALOPRAM HYDROBROMIDE 11889253469 Active Marleni Romero Active ZOFRAN 4 MG TABS 1 po q6hr PRN Nausea ONDANSETRON HCL 31694748349 Active Jonel Hemphill MD Active XARELTO 20 MG ORAL TABS 1 daily RIVAROXABAN 03027536908 Active Jonel Hemphill MD Active JANUVIA 100 MG ORAL TABS 2 tabs daily SITAGLIPTIN PHOSPHATE 68900873743 Active Jonel Hemphill MD Active CELEXA 20 MG TABS Take 1 tablet 1x daily CITALOPRAM HYDROBROMIDE 55859494607 No Longer Active Jonel Hemphill MD Active ATIVAN 0.5 MG TABS Take 1 tablet 2x daily PRN LORAZEPAM 49146955085 No Longer Active Jonel Hemphill MD Active FUROSEMIDE 80 MG ORAL TABS 1 daily FUROSEMIDE 71665155216 Active Jonel Hemphill MD Active MECLIZINE HCL 25 MG CHEW TAB 1 four times a day as needed for dizziness 02/21 MECLIZINE HCL 19023555244 No Longer Active Jonel Hemphill MD Active ZYLOPRIM 300 MG TAB 1 BY MOUTH DAILY ALLOPURINOL 74418810635 No Longer Active Jonel Hemphill MD Active METOPROLOL TARTRATE 50 MG ORAL TABS 1 TAB BY MOUTH TWICE DAILY METOPROLOL TARTRATE 80545842265 No Longer Active Jonel Hemphill MD Active GABAPENTIN 400 MG ORAL CAPS 1 TAB BY MOUTH THREE TIMES DAILY 2015 GABAPENTIN 30804047027 No Longer Active Jonel Hemphill MD Active ULORIC 40 MG ORAL TABS 1 daily for gout. FEBUXOSTAT 06695323050 Active Marleni Romero Active HYDROCODONE-ACETAMINOPHEN 7.5-325 MG TABS 1 TAB PO Q 6 HRS PRN HYDROCODONE-ACETAMINOPHEN 96233697378 Active Mattie Gates APRN Active METFORMIN HCL 1000 MG TABS 1 tablet by mouth twice daily METFORMIN HCL 09426724308 Active Marleni Romero Active FENTANYL 12 MCG/HR PT72 Apply to clean, dry skin and change every 72 hours FENTANYL 71404442625 Active Jonel Hemphill MD Active KLOR-CON 20 MEQ ORAL PACK 1 BY MOUTH DAILY POTASSIUM CHLORIDE 02436407112 Active Marleni Romero Active A+D FIRST AID EXT OINT APPLY OINTMENT AND RUFINO WRAPS TO LOWER EXTEREMETIES DAILY SKIN PROTECTANTS, MISC. 42208668552 Active Jonel Hemphill MD Active NYSTATIN 242685 UNIT/GM EXT OINT APPLY PRN TID TO GAULDING/RASH IN ABDOMINAL FOLDS NYSTATIN 89765010044 Active Jonel Hemphill MD Active GABAPENTIN 300 MG CAPS 1 CAP PO TID GABAPENTIN 91498992574 No Longer Active Jonel Hemphill MD Active DILANTIN 100 MG ORAL CAPS 1 THREE TIMES DAILY FOR SEIZURES PHENYTOIN SODIUM EXTENDED 51276274179 Active Marleni Tenoriokristin Active CPAP APPLY AT HS CPAP Active Jonel Hemphill MD Active LISINOPRIL 40 MG TABS 1 tablet by mouth twice daily, for blood pressure 03/31 LISINOPRIL 53426635186 Active Jonel Hemphill MD Active BUPROPION HCL ER (SR) 150 MG [id number] 1 twice a day for depression BUPROPION HCL 16808029538 Active Jonel Hemphill MD Active MULTIVITAMINS CAPS 1 DAILY MULTIPLE VITAMIN 84415013402 Active Jonel Hemphill MD Active HYDROCODONE-ACETAMINOPHEN 7.5-325 MG TABS 1 q 6 hrs prn HYDROCODONE-ACETAMINOPHEN 36516838399 No Longer Active Jonel Hemphill MD Active DILANTIN 100 MG CAPS 3 cap tid PHENYTOIN SODIUM EXTENDED 03467577059 No Longer Active Jonel Hemphill MD Active BUDEPRION SR 150 MG [id number] 1 bid BUPROPION HCL 08783064624 No Longer Active Jonel Hemphill MD Active ALLOPURINOL 300 MG TABS 1 qd ALLOPURINOL 16331183931 No Longer Active Jonel Hemphill MD Active COZAAR 100 MG TABS 1 qd LOSARTAN POTASSIUM 82290237392 No Longer Active Jonel Hemphill MD Active CVS VITAMIN C 500 MG TABS 1 po daily ASCORBIC ACID 68075845327 No Longer Active Jonel Hemphill MD Active MIRALAX POWD 17 gms in 4 oz water or juice daily POLYETHYLENE GLYCOL 3350 35827210436 No Longer Active Jonel Hemphill MD Active POTASSIUM CHLORIDE CHELA ER 20 MEQ CR-TABS 1 tab PO daily POTASSIUM CHLORIDE CHELA CR 45826851643 No Longer Active Jonel Hemphill MD Active AMBIEN 10 MG TAB 1 tab by mouth at bedtime as needed for sleep ZOLPIDEM TARTRATE 72125224107 No Longer Active Jonel Hemphill MD Active SULFAMETHOXAZOLE-TMP DS 800-160 MG TABS 1 TAB PO BID SULFAMETHOXAZOLE-TRIMETHOPRIM 91738222584 No Longer Active Jonel Hemphill MD Active NORCO 5-325 MG TABS 1-2 TAB Q 6 HRS PRN HYDROCODONE- ACETAMINOPHEN 19836182172 Active Jonel Hemphill MD Active LEVEMIR 100 UNIT/ML SOLN 5 units sub-q at bedtime INSULIN DETEMIR 15903251547 No Longer Active Tova Perez Active MOBIC 15 MG TABS 1 tab PO daily for arthritis pain MELOXICAM 68816517962 No Longer Active Tova Perez Active GLUCAGEN 1 MG SOLR INJECT 1MG IM IF BS LESS THAN 60 & RES. IS UNABLE TO SWALLOW GLUCAGON HCL (RDNA) 15980466110 No Longer Active Tova Perez Active CVS MILK OF MAGNESIA 1200 MG/15ML SUSP 30 ml daily for constipation MAGNESIUM HYDROXIDE 01825844633 No Longer Active Tova Perez Active IMDUR 120 MG [id number] 1 qd ISOSORBIDE MONONITRATE 90282222715 No Longer Active Tova Perez Active PHENYTOIN 50 MG CHEW 1 TAB PO BID PHENYTOIN 06433564547 Active Tova Perez Active NEURONTIN 400 MG CAPS Take one by mouth 3 times daily, morning, afternoon and evening.] GABAPENTIN 13406202259 No Longer Active Tova Perez Active ANTIVERT 25 MG TABS 1 q 6 hrs prn MECLIZINE HCL 61827340404 No Longer Active Jonel Hemphill MD Active CLONIDINE HCL 0.2 MG TABS 1 q 8 hrs as needed -greater than 160-htn CLONIDINE HCL 77112347352 No Longer Active Jonel Hemphill MD Active AMBIEN 10 MG TABS 1 q hs prn ZOLPIDEM TARTRATE 15715569773 No Longer Active Jonel Hemphill MD Active GNP THERAPEUTIC-M TABS 1 qd MULTIPLE VITAMINS- MINERALS 98162156869 No Longer Active Jonel Hemphill MD Active METOPROLOL TARTRATE 50 MG TABS 1 bid METOPROLOL TARTRATE 34827458167 No Longer Active Jonel Hemphill MD Active METFORMIN HCL 500 MG TABS 1 bod with food METFORMIN HCL 12018488734 No Longer Active Jonel Hemphill MD Active LISINOPRIL 40 MG TABS 1 qd LISINOPRIL 86951775859 No Longer Active Jonel Hemphill MD Active HYDROCHLOROTHIAZIDE 25 MG TABS 1 qd HYDROCHLOROTHIAZIDE 51078961175 No Longer Active Jonel Hemphill MD Active DURAGESIC-25 25 MCG/HR PT72 place 1 patch on the skin q72hrs for pain FENTANYL 06477094029 No Longer Active Jonel Hemphill MD Active FENTANYL 75 MCG/HR PT72 place 1 patch on skin q72hrs fr pain 2012 FENTANYL 95237394425 No Longer Active Jonel Hemphill MD Active FUROSEMIDE 40 MG TABS 1 q am FUROSEMIDE 67481192930 No Longer Active Jonel Hemphill MD Active HEPARIN (PORCINE) LOCK FLUSH 100 UNIT/ML SOLN Flush port a cath monthly every three week on with Heparin and NS HEPARIN LOCK FLUSH 20926410822 Active Jonel Hemphill MD Active FENTANYL 100 MCG/HR PT72 Apply every 3 days FENTANYL 01636470832 Active Jonel Hemphill MD Active FENTANYL 25 MCG/HR PT72 Apply to clean skin and change every 72 hours. 07/03 FENTANYL 76958895288 No Longer Active Jonel Hemphill MD Active FENTANYL 50 MCG/HR PT72 place 1 patch on skin q72 hours FENTANYL 13735081777 No Longer Active Mayco Shah APRN Active DURAGESIC-12 12 MCG/HR PT72 APPLY PATCH TO SKIN AND CHANGE EVERY 72 HOURS, ROTATE SITES FENTANYL 54952496923 No Longer Active Fozia HERNANDEZ Active FUROSEMIDE 20 MG TABS 1 qd FUROSEMIDE 01283796925 No Longer Active Mahogany Bolivar Active ADULT ASPIRIN EC LOW STRENGTH 81 MG TBEC 1 qd ASPIRIN 22161234591 Active MARY Perez Active FUROSEMIDE 20 MG TABS 1 qd FUROSEMIDE 20 MG TABS 879616 FUROSEMIDE Inactive DURAGESIC-12 12 MCG/HR PT72 APPLY PATCH TO SKIN AND CHANGE EVERY 72 HOURS, ROTATE SITES DURAGESIC-12 12 MCG/HR PT72 206887 FENTANYL Inactive FENTANYL 50 MCG/HR PT72 place 1 patch on skin q72 hours FENTANYL 50 MCG/HR PT72 130232 FENTANYL Inactive FUROSEMIDE 40 MG TABS 1 q am FUROSEMIDE 40 MG TABS 511121 FUROSEMIDE Inactive FENTANYL 75 MCG/HR PT72 place 1 patch on skin q72hrs fr pain 2012 FENTANYL 75 MCG/HR PT72 365343 FENTANYL Inactive DURAGESIC-25 25 MCG/HR PT72 place 1 patch on the skin q72hrs for pain DURAGESIC-25 25 MCG/HR PT72 120976 FENTANYL Inactive HYDROCHLOROTHIAZIDE 25 MG TABS 1 qd HYDROCHLOROTHIAZIDE 25 MG TABS 485672 HYDROCHLOROTHIAZIDE Inactive LISINOPRIL 40 MG TABS 1 qd LISINOPRIL 40 MG TABS 526067 LISINOPRIL Inactive METFORMIN HCL 500 MG TABS 1 bod with food METFORMIN HCL 500 MG TABS 260249 METFORMIN HCL Inactive METOPROLOL TARTRATE 50 MG TABS 1 bid METOPROLOL TARTRATE 50 MG TABS 800100 METOPROLOL TARTRATE Inactive GNP THERAPEUTIC-M TABS 1 qd GNP THERAPEUTIC-M TABS MULTIPLE VITAMINS-MINERALS Inactive AMBIEN 10 MG TABS 1 q hs prn AMBIEN 10 MG TABS 246715 ZOLPIDEM TARTRATE Inactive CLONIDINE HCL 0.2 MG TABS 1 q 8 hrs as needed -greater than 160-htn CLONIDINE HCL 0.2 MG TABS 337384 CLONIDINE HCL Inactive ANTIVERT 25 MG TABS 1 q 6 hrs prn ANTIVERT 25 MG TABS MECLIZINE HCL Inactive NEURONTIN 400 MG CAPS Take one by mouth 3 times daily, morning, afternoon and evening.] NEURONTIN 400 MG CAPS 234469 GABAPENTIN Inactive IMDUR 120 MG [id number] 1 qd IMDUR 120 MG [id number] ISOSORBIDE MONONITRATE Inactive CVS MILK OF MAGNESIA [...] for arthritis pain MOBIC 15 MG TABS 577376 MELOXICAM Inactive LEVEMIR 100 UNIT/ML SOLN 5 units sub-q at bedtime LEVEMIR 100 UNIT/ML SOLN INSULIN DETEMIR Inactive SULFAMETHOXAZOLE-TMP DS 800-160 MG TABS 1 TAB PO BID SULFAMETHOXAZOLE-TMP DS 800-160 MG TABS 035686 SULFAMETHOXAZOLE-TRIMETHOPRIM Inactive AMBIEN 10 MG TAB 1 tab by mouth at bedtime as needed for sleep AMBIEN 10 MG TAB 560888 ZOLPIDEM TARTRATE Inactive POTASSIUM CHLORIDE CHELA ER 20 MEQ CR-TABS 1 tab PO daily POTASSIUM CHLORIDE CHELA ER 20 MEQ CR-TABS POTASSIUM CHLORIDE CHELA CR Inactive MIRALAX POWD 17 gms in 4 oz water or juice daily MIRALAX POWD 804971 POLYETHYLENE GLYCOL 3350 Inactive CVS VITAMIN C 500 MG TABS 1 po daily CVS VITAMIN C 500 MG TABS 158630 ASCORBIC ACID Inactive COZAAR 100 MG TABS 1 qd COZAAR 100 MG TABS 335574 LOSARTAN POTASSIUM Inactive ALLOPURINOL 300 MG TABS 1 qd ALLOPURINOL 300 MG TABS 350098 ALLOPURINOL Inactive BUDEPRION SR 150 MG [id number] 1 bid BUDEPRION SR 150 MG [id number] BUPROPION HCL Inactive DILANTIN 100 MG CAPS 3 cap tid DILANTIN 100 MG CAPS 300322 PHENYTOIN SODIUM EXTENDED Inactive HYDROCODONE-ACETAMINOPHEN 7.5-325 MG TABS 1 q 6 hrs prn HYDROCODONE-ACETAMINOPHEN 7.5-325 MG TABS 036565 HYDROCODONE- ACETAMINOPHEN Inactive GABAPENTIN 300 MG CAPS 1 CAP PO TID GABAPENTIN 300 MG CAPS 958590 GABAPENTIN Inactive GABAPENTIN 400 MG ORAL CAPS 1 TAB BY MOUTH THREE TIMES DAILY 2015 GABAPENTIN 400 MG ORAL CAPS 546869 GABAPENTIN Inactive METOPROLOL TARTRATE 50 MG ORAL TABS 1 TAB BY MOUTH TWICE DAILY METOPROLOL TARTRATE 50 MG ORAL TABS 815448 METOPROLOL TARTRATE Inactive ZYLOPRIM 300 MG TAB 1 BY MOUTH DAILY ZYLOPRIM 300 MG TAB 463299 ALLOPURINOL Inactive MECLIZINE HCL 25 MG CHEW TAB 1 four times a day as needed for dizziness 02/21 MECLIZINE HCL 25 MG CHEW TAB 796381 MECLIZINE HCL Inactive ATIVAN 0.5 MG TABS Take 1 tablet 2x daily PRN ATIVAN 0.5 MG TABS 466199 LORAZEPAM Inactive CELEXA 20 MG TABS Take 1 tablet 1x daily CELEXA 20 MG TABS 897237 CITALOPRAM HYDROBROMIDE Inactive FENTANYL 25 MCG/HR PT72 Apply to clean skin and change every 72 hours. 07/03 FENTANYL 25 MCG/HR PT72 888847 FENTANYL Inactive Advance Directives Directive Description Start [...] mg/dL Encounters Code Encounter Date Provider Facility CPT-22404 Level 3 Est. Patient 19:05:03 CDT Jonel Hemphill MD [facility]-65459 Level 3 Est. Patient 17:30:47 CDT Kevin Link MD [facility]-23023 Level 3 Est. Patient 18:04:07 CDT Jonel Hemphill MD [facility]-58971 Level 3 Est. Patient 17:18:03 CDT Jonel Hemphill MD [facility]-99969 Level 3 Est. Patient 21:58:03 [employer] Jonel Hemphill MD [facility]-26004 Level 4 Est. Patient 18:03:14 CDT [facility]55378 Level 4 Est. Patient 13:24:53 CDT Jonel Yeager [facility]-28677 Level 4 Est. Patient 09:15:44 CDT Jonel Yeager [facility]-06781 Level 4 Est. Patient 19:16:01 CDT [facility]-10546 Level 4 Est. Patient 11:25:16 CDT Jonel Hemphill MD [facility] CPT-84226 Level 4 Est. Patient 09:00:40 CDT [facility]-37447 Level 4 Est. Patient 14:53:58 CDT Jonel Hemphill MD [facility] CPT-87942 Level 4 Est. Patient 22:59:01 CDT Jonel Hemphill MD [facility]-60427 Level 4 Est. Patient 09:29:57 CDT Jonel Hemphill MD [facility]-62159 Level 4 Est. Patient 12:35:53 [employer] Jonel Hemphill MD [facility]-41058 Level 4 Est. Patient 22:36:09 [employer] Jonel Hemphill MD [facility]-13457 Level 2 Est. Patient 15:14:15 [employer] Mayco Shah APRN [facility]-85471 Level 4 Est. Patient 10:36:22 [employer] Jonel Hemphill MD [facility] CPT-58025 Level 4 Est. Patient 22:01:13 [employer] Jonel Hemphill MD [facility]-17450 Level 3 Est. Patient 21:50:37 [employer] Jonel Hemphill MD [facility] CPT-49539 Level 4 Est. Patient 15:02:43 CDT Rubin Pierre MD [facility] CPT-31754 Level 4 Est. Patient 14:27:35 CDT Jonel Hemphill MD [facility]-23031 Level 4 Est. Patient 12:41:17 CDT Jonel Hemphill MD [facility] CPT-01876 Level 4 Est. Patient 16:18:55 CDT Jonel Hemphill MD [facility] CPT-14179 Level 4 Est. Patient 17:58:05 CDT Jonel Hemphill MD [facility] CPT-90327 Level 4 Est. Patient 22:10:06 CDT Jonel Hemphill MD [facility]-51461 Level 4 Est. Patient 13:22:09 CDT Jonel Hemphill MD [facility] CPT-66753 Level 4 Est. Patient 22:52:17 [employer] Jonel Hemphill MD [facility] CPT-88828 Level 3 Est. Patient 22:34:10 [employer] Jonel Hemphill MD [facility] CPT-39082 Level 4 Est. Patient 07:49:20 [employer] Jonel Hemphill MD [facility] Skilled CPT-59710 Level 3 Est. Patient 08:28:27 [employer] Jonel Hemphill MD [facility] Procedures Code Procedure Name Date Entry Date Standard Description CPT-70942 Level 3 Mcc 08:18:30 CDT CPT-15895 Level 3 Mcc 19:03:14 CDT CPT-45459 Level 3 Mcc 17:42:11 CDT CPT-03978 Level 3 Mcc 16:04:10 CDT CPT-63882 Level 3 Mcc 19:38:15 [employer] CPT-98835 Level 3 Mcc 19:28:48 [employer] CPT-35202 Level 3 Mcc 18:02:20 [employer] CPT-88727 Level 3 Mcc 15:02:14 [employer] CPT-90159 Level 3 Mcc 12:25:37 CDT CPT-21537 Level 3 Mcc 12:48:39 CDT CPT-79282 Level 3 Mcc 17:39:14 CDT CPT-51806 Level 3 Mcc 13:32:58 CDT CPT-41386 Level 3 Mcc 17:43:43 CDT CPT-26380 Level 3 Mcc 12:03:33 [employer] CPT-32441 Level 3 Mcc 18:47:28 [employer] CPT-16583 Level 3 Mcc 17:35:26 [employer] CPT-27497 Level 3 Mcc 18:44:49 [employer] CPT-08909 Level 3 Mcc 18:17:33 CDT CPT-05408 Level 3 Mcc 09:25:33 CDT CPT-60448 Level 3 Mcc 19:11:57 CDT CPT-23846 Level 3 Mcc 09:25:52 CDT CPT-32940 Level 3 Mcc 14:23:59 CDT CPT-87160 Level 3 Mcc 12:09:43 CDT CPT-98792 Level 3 Mcc 09:37:40 CDT CPT-64728 Level 3 Mcc 18:23:02 CDT CPT-93846 Level 3 Mcc 14:09:06 CDT CPT-75310 Level 3 Mcc 12:43:27 [employer] CPT-00603 Postop F/U Visit 14:10:15 [employer] CPT-50557 Sono Soft Tissue Head and Neck 17:07:14 [employer] CPT-13265 Level 3 Mcc 16:14:37 [employer] CPT-07051 Port a cath flush 11:47:42 CDT CPT-40791 Port a cath flush 08:29:49 CDT CPT-OV Office Visit 14:27:58 [employer]
--- OUTSIDE RECORDS SUMMARY | 2016-08-07 12:39 | XMS REPORT ---
Author Author [facility] Medical Staff Organization [facility] [employer] [facility] Address [address] [place], [place] [address] Phone [phone] Summary purpose TRANSITION OF CARE AUTO GENERATION [...] tests and/or laboratory data RESULTS Radiology Results [id number] Chest Soft Tissue PACs Image DATE OF EXAM: 2015 [id number] TISSUE EXT SONO LIMITED : RADIOLOGY REPORT DATE OF SERVICE: 03/15/2015 HISTORY: The patient has right posterior thigh, soft tissue mass or bulge which apparently has been present for multiple years. There is some cracking of the skin currently and this is to assess for any fluid pocket or abscess. SOFT TISSUE EXTREMITY [id number] HOURS Exam was technically difficult. There appears to be abundant edema in the area of the mass in the posterior medial lower thigh area. No other suggested fluid collection or abscesses are seen. The echodensity in this area is similar to surrounding subcutaneous fat and this therefore raises suspicion that this is a lipoma with abundant edema in the area. No other definitive comment can be made from this study except that there is no fluid collection the findings to suggest a lipoma but this is not definite. DO GAURI Arzate/cdj03/15/2015 15:09:00 / 03/15/2015 15:19:59 cc:Dr Hemphill RADIOLOGY REPORT DATE OF SERVICE: 03/15/2015 HISTORY: The patient has right posterior thigh, soft tissue mass or bulge which apparently has been present for multiple years. There is some cracking of the skin currently and this is to assess for any fluid pocket or abscess. SOFT TISSUE EXTREMITY [id number] HOURS Exam was technically difficult. There appears to be abundant edema in the area of the mass in the posterior medial lower thigh area. No other suggested fluid collection or abscesses are seen. The echodensity in this area is similar to surrounding subcutaneous fat and this therefore raises suspicion that this is a lipoma with abundant edema in the area. No other definitive comment can be made from this study except that there is no fluid collection the findings to suggest a lipoma but this is not definite. Mak Metcalf DO MW/cdj/02/2015 15:09:00 / 03/15/2015 15:19:59 cc:Dr Hemphill This document has been electronically Signed by: On: History of procedures No procedures recorded for [...]
--- OUTSIDE RECORDS SUMMARY | 2016-08-07 12:39 | XMS REPORT | Clinical Summary ---
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 V58.69 Resolved Jonel Hemphill MD Long-term (current) [...] limb, unspecified SLEEP APNEA 780.57 Active Jonel Hemhpill MD Unspecified sleep apnea CELLULITIS, LEG, RIGHT [...] chest pain Hip pain, right 719.45 Active Joenl Hemphill MD Pain in joint involving pelvic region and thigh 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 USE, [facility] ICD-V58.69 Inactive Jonel Hemphill [...] TIMES DAILY FOR SEIZURES PHENYTOIN SODIUM EXTENDED 88313910062 Active Marleni Romero Active CPAP APPLY AT HS CPAP Active Jonel Hemphill MD Active METOPROLOL TARTRATE 50 MG ORAL TABS 1 TAB BY MOUTH TWICE DAILY METOPROLOL TARTRATE 28152112636 Active Jonel Hemphill MD Active LISINOPRIL 40 MG TABS 1 tablet by mouth twice daily, for blood pressure 03/31 LISINOPRIL 57074519522 Active Jonel Hemphill MD Active BUPROPION HCL ER (SR) 150 MG [id number] 1 twice a day for depression BUPROPION HCL 15009061986 Active Jonel Hemphill MD Active MULTIVITAMINS CAPS 1 DAILY MULTIPLE VITAMIN 73583956261 Active Jonel Hemphill MD Active ZYLOPRIM 300 MG TAB 1 BY MOUTH DAILY ALLOPURINOL 27029985413 Active Jonel Hemphill MD Active HYDROCODONE-ACETAMINOPHEN 7.5-325 MG TABS 1 q 6 hrs prn HYDROCODONE-ACETAMINOPHEN 99140568479 No Longer Active Jonel Hemphill MD Active DILANTIN 100 MG CAPS 3 cap tid PHENYTOIN SODIUM EXTENDED 33151796308 No Longer Active Jonel Hemphill MD Active BUDEPRION SR 150 MG [id number] 1 bid BUPROPION HCL 18607820844 No Longer Active Jonel Hemphill MD Active ALLOPURINOL 300 MG TABS 1 qd ALLOPURINOL 08183219210 No Longer Active Jonel Hemphill MD Active COZAAR 100 MG TABS 1 qd LOSARTAN POTASSIUM 74189255143 No Longer Active Jnoel Hemphill MD Active CVS VITAMIN C 500 MG TABS 1 po daily ASCORBIC ACID 68672658797 No Longer Active Jonel Hemphill MD Active MIRALAX POWD 17 gms in 4 oz water or juice daily POLYETHYLENE GLYCOL 3350 76674349637 No Longer Active Jonel Hemphill MD Active POTASSIUM CHLORIDE CHELA ER 20 MEQ CR-TABS 1 tab PO daily POTASSIUM CHLORIDE CHELA CR 77467069688 No Longer Active Jonel Hemphill MD Active AMBIEN 10 MG TAB 1 tab by mouth at bedtime as needed for sleep ZOLPIDEM TARTRATE 54128750624 No Longer Active Jonel Hemphill MD Active SULFAMETHOXAZOLE-TMP DS 800-160 MG TABS 1 TAB PO BID SULFAMETHOXAZOLE-TRIMETHOPRIM 28027501047 No Longer Active Jonel Hemphill MD Active NORCO 5-325 MG TABS 1-2 TAB Q 6 HRS PRN HYDROCODONE- ACETAMINOPHEN 05379271010 Active Jonel Hemphill MD Active LEVEMIR 100 UNIT/ML SOLN 5 units sub-q at bedtime INSULIN DETEMIR 62438337606 No Longer Active Tova Perez Active MOBIC 15 MG TABS 1 tab PO daily for arthritis pain MELOXICAM 87456034945 No Longer Active Tova Chris Active GLUCAGEN 1 MG SOLR INJECT 1MG IM IF BS LESS THAN 60 & RES. IS UNABLE TO SWALLOW GLUCAGON HCL (RDNA) 11232098287 No Longer Active Tova Chris Active CVS MILK OF MAGNESIA 1200 MG/15ML SUSP 30 ml daily for constipation MAGNESIUM HYDROXIDE 53533240850 No Longer Active Tova Chris Active IMDUR 120 MG [id number] 1 qd ISOSORBIDE MONONITRATE 40388324582 No Longer Active Tova Chris Active METFORMIN HCL 500 MG TABS 1 tablet by mouth twice daily METFORMIN HCL 97869128030 Active Tova Chris Active PHENYTOIN 50 MG CHEW 1 TAB PO BID PHENYTOIN 67809972822 Active Tova Chris Active MECLIZINE HCL 25 MG CHEW TAB 1 four times a day as needed for dizziness 02/21 MECLIZINE HCL 21268697043 Active Tova Perez Active GABAPENTIN 300 MG CAPS 1 CAP PO TID GABAPENTIN 07951429238 Active Tova Perez Active NEURONTIN 400 MG CAPS Take one by mouth 3 times daily, morning, afternoon and evening.] GABAPENTIN 09977380182 No Longer Active Tova Perez Active ANTIVERT 25 MG TABS 1 q 6 hrs prn MECLIZINE HCL 06040302100 No Longer Active Jonel Hemphill MD Active CLONIDINE HCL 0.2 MG TABS 1 q 8 hrs as needed -greater than 160-htn CLONIDINE HCL 52336627263 No Longer Active Jonel Hemphill MD Active AMBIEN 10 MG TABS 1 q hs prn ZOLPIDEM TARTRATE 53804856725 No Longer Active Jonel Hemphill MD Active GNP THERAPEUTIC-M TABS 1 qd MULTIPLE VITAMINS- MINERALS 76822519270 No Longer Active Jonel Hemphill MD Active METOPROLOL TARTRATE 50 MG TABS 1 bid METOPROLOL TARTRATE 50215182250 No Longer Active Jonel Hemphill MD Active METFORMIN HCL 500 MG TABS 1 bod with food METFORMIN HCL 34735099297 No Longer Active Jonel Hemphill MD Active LISINOPRIL 40 MG TABS 1 qd LISINOPRIL 78595237950 No Longer Active Jonel Hemphill MD Active HYDROCHLOROTHIAZIDE 25 MG TABS 1 qd HYDROCHLOROTHIAZIDE 53732274127 No Longer Active oJnel Hemphill MD Active DURAGESIC-25 25 MCG/HR PT72 place 1 patch on the skin q72hrs for pain FENTANYL 76470286174 No Longer Active Jonel Hemphill MD Active FENTANYL 75 MCG/HR PT72 place 1 patch on skin q72hrs fr pain 2012 FENTANYL 28827901875 No Longer Active Jonel Hemphill MD Active LASIX 20 MG TABS 1 tab PO q morning FUROSEMIDE 17938968736 Active Jonel Hempihll MD Active FUROSEMIDE 40 MG TABS 1 q am FUROSEMIDE 84609089321 No Longer Active Jonel Hemphill MD Active HEPARIN (PORCINE) LOCK FLUSH 100 UNIT/ML SOLN Flush port a cath monthly every three week on with Heparin and NS HEPARIN LOCK FLUSH 65360522732 Active Jonel Hemphill MD Active FENTANYL 100 MCG/HR PT72 Apply every 3 days FENTANYL 43345354096 Active Jonel Hemphill MD Active FENTANYL 25 MCG/HR PT72 Apply to clean skin and change every 72 hours. 07/03 FENTANYL 84813017952 No Longer Active Jonel Hemphill MD Active FENTANYL 50 MCG/HR PT72 place 1 patch on skin q72 hours FENTANYL 66689598464 No Longer Active Mayco Shah APRN Active ATIVAN 0.5 MG TABS Take 1 tablet 2x daily LORAZEPAM 35544980451 Active Jonel Hemphill MD Active CELEXA 20 MG TABS Take 1 tablet 1x daily CITALOPRAM HYDROBROMIDE 96952759400 Active Jonel Hemphill MD Active DURAGESIC-12 12 MCG/HR PT72 APPLY PATCH TO SKIN AND CHANGE EVERY 72 HOURS, ROTATE SITES FENTANYL 41847346832 No Longer Active Fozia HERNANDEZ Active FUROSEMIDE 20 MG TABS 1 qd FUROSEMIDE 39006503262 No Longer Active Mahogany Bolivar Active ADULT ASPIRIN EC LOW STRENGTH 81 MG TBEC 1 qd ASPIRIN 10611426229 Active MARY Perez Active FUROSEMIDE 20 MG TABS 1 qd FUROSEMIDE 20 MG TABS 590490 FUROSEMIDE Inactive DURAGESIC-12 12 MCG/HR PT72 APPLY PATCH TO SKIN AND CHANGE EVERY 72 HOURS, ROTATE SITES DURAGESIC-12 12 MCG/HR PT72 618413 FENTANYL Inactive FENTANYL 50 MCG/HR PT72 place 1 patch on skin q72 hours FENTANYL 50 MCG/HR PT72 224236 FENTANYL Inactive FUROSEMIDE 40 MG TABS 1 q am FUROSEMIDE 40 MG TABS 391842 FUROSEMIDE Inactive FENTANYL 75 MCG/HR PT72 place 1 patch on skin q72hrs fr pain 2012 FENTANYL 75 MCG/HR PT72 477986 FENTANYL Inactive DURAGESIC-25 25 MCG/HR PT72 place 1 patch on the skin q72hrs for pain DURAGESIC-25 25 MCG/HR PT72 285275 FENTANYL Inactive HYDROCHLOROTHIAZIDE 25 MG TABS 1 qd HYDROCHLOROTHIAZIDE 25 MG TABS 043401 HYDROCHLOROTHIAZIDE Inactive LISINOPRIL 40 MG TABS 1 qd LISINOPRIL 40 MG TABS 569793 LISINOPRIL Inactive METFORMIN HCL 500 MG TABS 1 bod with food METFORMIN HCL 500 MG TABS 303286 METFORMIN HCL Inactive METOPROLOL TARTRATE 50 MG TABS 1 bid METOPROLOL TARTRATE 50 MG TABS 417470 METOPROLOL TARTRATE Inactive GNP THERAPEUTIC-M TABS 1 qd GNP THERAPEUTIC-M TABS MULTIPLE VITAMINS-MINERALS Inactive AMBIEN 10 MG TABS 1 q hs prn AMBIEN 10 MG TABS 280119 ZOLPIDEM TARTRATE Inactive CLONIDINE HCL 0.2 MG TABS 1 q 8 hrs as needed -greater than 160-htn CLONIDINE HCL 0.2 MG TABS 311166 CLONIDINE HCL Inactive ANTIVERT 25 MG TABS 1 q 6 hrs prn ANTIVERT 25 MG TABS MECLIZINE HCL Inactive NEURONTIN 400 MG CAPS Take one by mouth 3 times daily, morning, afternoon and evening.] NEURONTIN 400 MG CAPS 180955 GABAPENTIN Inactive IMDUR 120 MG [id number] 1 qd IMDUR 120 MG [id number] ISOSORBIDE MONONITRATE Inactive CVS MILK OF MAGNESIA [...] for arthritis pain MOBIC 15 MG TABS 596626 MELOXICAM Inactive LEVEMIR 100 UNIT/ML SOLN 5 units sub-q at bedtime LEVEMIR 100 UNIT/ML SOLN INSULIN DETEMIR Inactive SULFAMETHOXAZOLE-TMP DS 800-160 MG TABS 1 TAB PO BID SULFAMETHOXAZOLE-TMP DS 800-160 MG TABS SULFAMETHOXAZOLE-TRIMETHOPRIM Inactive AMBIEN 10 MG TAB 1 tab by mouth at bedtime as needed for sleep AMBIEN 10 MG TAB 175054 ZOLPIDEM TARTRATE Inactive POTASSIUM CHLORIDE CHELA ER 20 MEQ CR-TABS 1 tab PO daily POTASSIUM CHLORIDE CHELA ER 20 MEQ CR-TABS POTASSIUM CHLORIDE CHELA CR Inactive MIRALAX POWD 17 gms in 4 oz water or juice daily MIRALAX POWD 671493 POLYETHYLENE GLYCOL 3350 Inactive CVS VITAMIN C 500 MG TABS 1 po daily CVS VITAMIN C 500 MG TABS 030819 ASCORBIC ACID Inactive COZAAR 100 MG TABS 1 qd COZAAR 100 MG TABS 428614 LOSARTAN POTASSIUM Inactive ALLOPURINOL 300 MG TABS 1 qd ALLOPURINOL 300 MG TABS 775492 ALLOPURINOL Inactive BUDEPRION SR 150 MG [id number] 1 bid BUDEPRION SR 150 MG [id number] BUPROPION HCL Inactive DILANTIN 100 MG CAPS 3 cap tid DILANTIN 100 MG CAPS 328074 PHENYTOIN SODIUM EXTENDED Inactive HYDROCODONE-ACETAMINOPHEN 7.5-325 MG TABS 1 q 6 hrs prn HYDROCODONE-ACETAMINOPHEN 7.5-325 MG TABS 397617 HYDROCODONE- ACETAMINOPHEN Inactive FENTANYL 25 MCG/HR PT72 Apply to clean skin and change every 72 hours. 07/03 FENTANYL 25 MCG/HR PT72 834715 FENTANYL Inactive Advance Directives Directive Description Start [...] A/B - Chemistry sodium, serum 142 mmol/L 795-423 9061/01/20 potassium, serum 3.9 mmol/L 3.5-5.2 chloride, serum [...] Lab Report: CBC W/DIFF, Comp. Metabolic Panel, [facility] A/B - Hematology leukocyte count, [...] Comp. Metabolic Panel, Uric Acid - Chemistry potassium, serum 3.9 mmol/L 3.5-5.2 chloride, serum [...] 4.8 mg/dL 2.6-7.2 sodium, serum 141 mmol/L 136-145 Lab Report: CBC, Comp. Metabolic Panel, Uric Acid - Hematology platelet count 129 Verified By Repeat Analysis 10^3/mm^3 10*3/ mm3 233-533 6503/05/09 red blood cell distribution width 14.7 % 11.6-14.8 mean corpuscular hemoglobin concentration, RBC 33.6 G/DL % 31.8- 35.4 mean corpuscular hemoglobin, RBC 32.1 pg 27.0-31.2 erythrocyte (RBC) count 4.53 10^6/MM^3 10*6/mm3 4.69-6.13 leukocyte count, blood 7.3 10^3/MM^3 10*3/mm3 4.6-10.2 mean corpuscular volume, RBC 96 fL 80-97 hematocrit, blood 43.3 % 41.0-53.0 hemoglobin, blood 14.5 g/dL 13.5-17.5 Lab Report: CMP, URIC ACID - Chemistry potassium, serum 4.5 mmol/L blood glucose 94 mg/dL creatinine, serum 0.79 mg/dL aspartate aminotransferase (SGOT), serum 24 U/L alanine aminotransferase (SGPT), serum 28 U/L sodium, serum 142 mmol/L alkaline phosphatase, serum 54 U/L Encounters Code Encounter Date Provider Facility CPT-35713 Level 3 Est. Patient 18:04:07 CDT Jonel Hemphill MD [facility] CPT-41968 Level 3 Est. Patient 17:18:03 CDT Jonel Hemphill MD [facility] CPT-76012 Level 3 Est. Patient 21:58:03 CASING TIER Jonel Hemphill MD [facility] CPT-41775 Level 4 Est. Patient 18:03:14 CDT Jonel Yeager [facility]-10526 Level 4 Est. Patient 13:24:53 CDT Jonel Yeager [facility]-73527 Level 4 Est. Patient 09:15:44 CDT Jonel Yeager [facility]-24525 Level 4 Est. Patient 19:16:01 CDT Jonel Yegaer [facility] CPT-98425 Level 4 Est. Patient 11:25:16 CDT Jonel Hemphill MD [facility] CPT-84337 Level 4 Est. Patient 09:00:40 CDT [facility] CPT-47935 Level 4 Est. Patient 14:53:58 CDT Jonel Hemphill MD [facility] CPT-63209 Level 4 Est. Patient 22:59:01 CDT Jonel Hemphill MD [facility]-91569 Level 4 Est. Patient 09:29:57 CDT Jonel Hemphill MD [facility]-88813 Level 4 Est. Patient 12:35:53 CASING TIER Jonel Hemphill MD [facility]-48731 Level 4 Est. Patient 22:36:09 CASING TIER Jonel Hemphill MD [facility]-64013 Level 2 Est. Patient 15:14:15 CASING TIER Mayco Shah APRN [facility] CPT-45595 Level 4 Est. Patient 10:36:22 CASING TIER Jonel Hemphill MD [facility] CPT-70265 Level 4 Est. Patient 22:01:13 CASING TIER Jonel Hemphill MD [facility]-11282 Level 3 Est. Patient 21:50:37 CASING TIER Jonel Hemphill MD [facility] CPT-17944 Level 4 Est. Patient 15:02:43 CDT Rubin Pierre MD [facility] CPT-60626 Level 4 Est. Patient 14:27:35 CDT Jonel Hemphill MD [facility]-74336 Level 4 Est. Patient 12:41:17 CDT Jonel Hemphill MD [facility]-12044 Level 4 Est. Patient 16:18:55 CDT Jonel Hemphill MD [facility]-17764 Level 4 Est. Patient 17:58:05 CDT Jonel Hemphill MD [facility]-91163 Level 4 Est. Patient 22:10:06 CDT Jonel Hemphill MD [facility] CPT-39181 Level 4 Est. Patient 13:22:09 CDT Jonel Hemphill MD [facility] CPT-26874 Level 4 Est. Patient 22:52:17 CASING TIER Jonel Hemphill MD [facility] CPT-03081 Level 3 Est. Patient 22:34:10 CASING TIER Jonel Hemphill MD [facility] CPT-42610 Level 4 Est. Patient 07:49:20 CASING TIER Jonel Hemphill MD [facility] Skilled CPT-33541 Level 3 Est. Patient 08:28:27 CASING TIER Jonel Hemphill MD [facility] Procedures Code Procedure Name Date Entry Date Standard Description CPT-41303 Level 3 Usp 12:03:33 CASING TIER CPT-03070 Level 3 Usp 18:47:28 CASING TIER CPT-72738 Level 3 Usp 17:35:26 CASING TIER CPT-55783 Level 3 Usp 18:44:49 CASING TIER CPT-28289 Level 3 Usp 18:17:33 CDT CPT-59782 Level 3 Usp 09:25:33 CDT CPT-03185 Level 3 Usp 19:11:57 CDT CPT-65714 Level 3 Usp 09:25:52 CDT CPT-93408 Level 3 Usp 14:23:59 CDT CPT-53251 Level 3 Usp 12:09:43 CDT CPT-15206 Level 3 Usp 09:37:40 CDT CPT-07855 Level 3 Usp 18:23:02 CDT CPT-96137 Level 3 Usp 14:09:06 CDT CPT-19582 Level 3 Usp 12:43:27 CASING TIER CPT-73532 Postop F/U Visit 14:10:15 CASING TIER CPT-05196 [facility] 17:07:14 CASING TIER CPT-33385 Level 3 Usp 16:14:37 CASING TIER CPT-26933 Port a cath flush 11:47:42 CDT CPT-38206 Port a cath flush 08:29:49 CDT CPT-OV Office Visit 14:27:58 CASING TIER
--- OUTSIDE RECORDS SUMMARY | 2016-08-07 12:41 | XMS REPORT | Clinical Summary ---
Author Author Admin, KARLAE Organization [facility] Address Unknown Phone Unavailable Allergies, Adverse Reactions, Alerts Allergy Name Reaction Description Start Date Severity Status Provider PENICILLIN Critical Active [place] G[place] RMA Conditions or Problems Problem Name [...] Benign essential hypertension 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 USE, DIRECTOR OF CAPITAL GIVING V58.69 Resolved Jonel Hemphill MD Long-term (current) [...] Coronary atherosclerosis of unspecified type of vessel, lower brule or graft FH DIABETES V18.0 Resolved Jonel [...] Coronary atherosclerosis of unspecified type of vessel, lower brule or graft CONSTIPATION 564.00 Resolved Jonel Hemphill [...] Pain in or around eye 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 USE, DIRECTOR OF CAPITAL GIVING ICD-V58.69 Inactive Jonel Hemphill MD DIABETES, TYPE [...] TAB Q 6 HRS PRN HYDROCODONE- ACETAMINOPHEN 24110888265 Active Jonel Hemphill MD Active LEVEMIR 100 UNIT/ML SOLN 5 units sub-q at bedtime INSULIN DETEMIR 46731238542 No Longer Active Tova Perez Active MOBIC 15 MG TABS 1 tab PO daily for arthritis pain MELOXICAM 33386667315 No Longer Active Tova Perez Active GLUCAGEN 1 MG SOLR INJECT 1MG IM IF BS LESS THAN 60 & RES. IS UNABLE TO SWALLOW GLUCAGON HCL (RDNA) 57562971467 No Longer Active Tova Perez Active [facility] MILK OF MAGNESIA 1200 MG/15ML SUSP 30 ml daily for constipation MAGNESIUM HYDROXIDE 10569198256 No Longer Active Tova Perez Active IMDUR 120 MG UW28M-NWD 1 qd ISOSORBIDE MONONITRATE 41708561577 No Longer Active Tova Perez Active METFORMIN HCL 500 MG TABS 1 tablet by mouth twice daily METFORMIN HCL 64717905091 Active Tova Perez Active SULFAMETHOXAZOLE-TMP DS 800-160 MG TABS 1 TAB PO BID SULFAMETHOXAZOLE-TRIMETHOPRIM 00793431724 Active Tova Perez Active PHENYTOIN 50 MG CHEW 1 TAB PO BID PHENYTOIN 77639739691 Active Tova Perez Active MECLIZINE HCL 25 MG CHEW TAB 1 four times a day as needed for dizziness 02/21 MECLIZINE HCL 18593132957 Active Tova Perez Active GABAPENTIN 300 MG CAPS 1 CAP PO TID GABAPENTIN 36178215829 Active Tova Perez Active NEURONTIN 400 MG CAPS Take one by mouth 3 times daily, morning, afternoon and evening.] GABAPENTIN 84833877050 No Longer Active Tova Perez Active AMBIEN 10 MG TAB 1 tab by mouth at bedtime as needed for sleep ZOLPIDEM TARTRATE 50797728132 Active Jonel Hemphill MD Active POTASSIUM CHLORIDE CHELA ER 20 MEQ CR-TABS 1 tab PO daily POTASSIUM CHLORIDE CHELA CR 40256838415 Active Jonel Hemphill MD Active ANTIVERT 25 MG TABS 1 q 6 hrs prn MECLIZINE HCL 34986169856 No Longer Active Jonel Hemphill MD Active CLONIDINE HCL 0.2 MG TABS 1 q 8 hrs as needed -greater than 160-htn CLONIDINE HCL 14765030342 No Longer Active Jonel Hemphill MD Active AMBIEN 10 MG TABS 1 q hs prn ZOLPIDEM TARTRATE 09753835727 No Longer Active Jonel Hemphill MD Active GNP THERAPEUTIC-M TABS 1 qd MULTIPLE VITAMINS- MINERALS 82254011165 No Longer Active Jonel Hemphill MD Active METOPROLOL TARTRATE 50 MG TABS 1 bid METOPROLOL TARTRATE 28747081866 No Longer Active Jonel Hemphill MD Active METFORMIN HCL 500 MG TABS 1 bod with food METFORMIN HCL 97179263808 No Longer Active Jonel Hemphill MD Active LISINOPRIL 40 MG TABS 1 qd LISINOPRIL 72651482916 No Longer Active Jonel Hemphill MD Active HYDROCHLOROTHIAZIDE 25 MG TABS 1 qd HYDROCHLOROTHIAZIDE 95195758300 No Longer Active Jonel Hemphill MD Active DURAGESIC-25 25 MCG/HR PT72 place 1 patch on the skin q72hrs for pain FENTANYL 11653112973 No Longer Active Jonel Hemphill MD Active FENTANYL 75 MCG/HR PT72 place 1 patch on skin q72hrs fr pain 2012 FENTANYL 21010839357 No Longer Active Jonel Hemphill MD Active LASIX 20 MG TABS 1 tab PO q morning FUROSEMIDE 85771673315 Active Jonel Hemphill MD Active FUROSEMIDE 40 MG TABS 1 q am FUROSEMIDE 39830048261 No Longer Active Jonel Hemphill MD Active HEPARIN (PORCINE) LOCK FLUSH 100 UNIT/ML SOLN Flush port a cath monthly every three week on with Heparin and NS HEPARIN LOCK FLUSH 54205450233 Active Jonel Hemphill MD Active FENTANYL 100 MCG/HR PT72 Apply every 3 days FENTANYL 24657908179 Active Jonel Hemphill MD Active FENTANYL 25 MCG/HR PT72 Apply to clean skin and change every 72 hours. 07/03 FENTANYL 47935198922 No Longer Active Jonel Hemphill MD Active FENTANYL 50 MCG/HR PT72 place 1 patch on skin q72 hours FENTANYL 93667498667 No Longer Active Mayco Shah APRN Active HYDROCODONE-ACETAMINOPHEN 7.5-325 MG TABS 1 q 6 hrs prn HYDROCODONE-ACETAMINOPHEN 18204466279 Active Jonel Hemphill MD Active ATIVAN 0.5 MG TABS Take 1 tablet 2x daily LORAZEPAM 05720431568 Active Jonel Hemphill MD Active CELEXA 20 MG TABS Take 1 tablet 1x daily CITALOPRAM HYDROBROMIDE 64892431936 Active Jonel Hemphill MD Active MIRALAX POWD 17 gms in 4 oz water or juice daily POLYETHYLENE GLYCOL 3350 70684899559 Active Rubin Pierre MD Active DURAGESIC-12 12 MCG/HR PT72 APPLY PATCH TO SKIN AND CHANGE EVERY 72 HOURS, ROTATE SITES FENTANYL 22951078523 No Longer Active Fozia HERNANDEZ Active [facility] VITAMIN C 500 MG TABS 1 po daily ASCORBIC ACID 19219050202 Active [employer] Active FUROSEMIDE 20 MG TABS 1 qd FUROSEMIDE 71400898798 No Longer Active [employer] Active ADULT ASPIRIN EC LOW STRENGTH 81 MG TBEC 1 qd ASPIRIN 84074873441 Active MARY Perez Active DILANTIN 100 MG CAPS 3 cap tid PHENYTOIN SODIUM EXTENDED 83218080482 Active MARY Perez Active BUDEPRION SR 150 MG UN52L-MWS 1 bid BUPROPION HCL 43063958261 Active MARY Perez Active ALLOPURINOL 300 MG TABS 1 qd ALLOPURINOL 86573463594 Active MARY Perez Active COZAAR 100 MG TABS 1 qd LOSARTAN POTASSIUM 81912203877 Active MARY Perez Active FUROSEMIDE 20 MG TABS 1 qd FUROSEMIDE 20 MG TABS 203700 FUROSEMIDE Inactive DURAGESIC-12 12 MCG/HR PT72 APPLY PATCH TO SKIN AND CHANGE EVERY 72 HOURS, ROTATE SITES DURAGESIC-12 12 MCG/HR PT72 763139 FENTANYL Inactive FENTANYL 50 MCG/HR PT72 place 1 patch on skin q72 hours FENTANYL 50 MCG/HR PT72 076750 FENTANYL Inactive FUROSEMIDE 40 MG TABS 1 q am FUROSEMIDE 40 MG TABS 334306 FUROSEMIDE Inactive FENTANYL 75 MCG/HR PT72 place 1 patch on skin q72hrs fr pain 2012 FENTANYL 75 MCG/HR PT72 022119 FENTANYL Inactive DURAGESIC-25 25 MCG/HR PT72 place 1 patch on the skin q72hrs for pain DURAGESIC-25 25 MCG/HR PT72 636654 FENTANYL Inactive HYDROCHLOROTHIAZIDE 25 MG TABS 1 qd HYDROCHLOROTHIAZIDE 25 MG TABS 436347 HYDROCHLOROTHIAZIDE Inactive LISINOPRIL 40 MG TABS 1 qd LISINOPRIL 40 MG TABS 224186 LISINOPRIL Inactive METFORMIN HCL 500 MG TABS 1 bod with food METFORMIN HCL 500 MG TABS 555358 METFORMIN HCL Inactive METOPROLOL TARTRATE 50 MG TABS 1 bid METOPROLOL TARTRATE 50 MG TABS 005526 METOPROLOL TARTRATE Inactive GNP THERAPEUTIC-M TABS 1 qd GNP THERAPEUTIC-M TABS MULTIPLE VITAMINS-MINERALS Inactive AMBIEN 10 MG TABS 1 q hs prn AMBIEN 10 MG TABS 336796 ZOLPIDEM TARTRATE Inactive CLONIDINE HCL 0.2 MG TABS 1 q 8 hrs as needed -greater than 160-htn CLONIDINE HCL 0.2 MG TABS 500241 CLONIDINE HCL Inactive ANTIVERT 25 MG TABS 1 q 6 hrs prn ANTIVERT 25 MG TABS MECLIZINE HCL Inactive NEURONTIN 400 MG CAPS Take one by mouth 3 times daily, morning, afternoon and evening.] NEURONTIN 400 MG CAPS 044690 GABAPENTIN Inactive IMDUR 120 MG FR63Y-HSC 1 qd IMDUR 120 MG ZV79O-LAL ISOSORBIDE MONONITRATE Inactive [facility] MILK OF MAGNESIA [...] for arthritis pain MOBIC 15 MG TABS 148361 MELOXICAM Inactive LEVEMIR 100 UNIT/ML SOLN 5 units sub-q at bedtime LEVEMIR 100 UNIT/ML SOLN INSULIN DETEMIR Inactive FENTANYL 25 MCG/HR PT72 Apply to clean skin and change every 72 hours. 07/03 FENTANYL 25 MCG/HR PT72 393990 FENTANYL Inactive Advance Directives Directive Description Start [...] A/B - Chemistry sodium, serum 142 mmol/L 759-665 8708/01/20 potassium, serum 3.9 mmol/L 3.5-5.2 chloride, serum [...] Acid - Chemistry sodium, serum 141 mmol/L 958-064 3597/05/09 potassium, serum 3.9 mmol/L 3.5-5.2 chloride, serum [...] dipstick Negative Negative sodium, serum 140 mmol/L 910-168 5804/02/18 potassium, serum 3.8 mmol/L 3.5-5.2 chloride, serum [...] Negative Encounters Code Encounter Date Provider Facility CPT-79670 Level 3 Est. Patient 18:04:07 CDT Jonel Hemphill MD [facility] CPT-70040 Level 3 Est. Patient 17:18:03 CDT Jonel Hemphill MD [facility] CPT-53433 Level 3 Est. Patient 21:58:03 IVORY CARVER Jonel Hemphill MD [facility] CPT-65980 Level 4 Est. Patient 18:03:14 CDT Jonel Hemphill MD [facility]-63650 Level 4 Est. Patient 13:24:53 CDT Jonel Hemphill MD [facility]-39512 Level 4 Est. Patient 09:15:44 CDT Jonel Hemphill MD [facility]-63813 Level 4 Est. Patient 19:16:01 CDT Jonel Hemphill MD [facility]-22232 Level 4 Est. Patient 11:25:16 CDT Jonel Hemphill MD [facility] CPT-23722 Level 4 Est. Patient 09:00:40 CDT Jonel Hemphill MD [facility]-88118 Level 4 Est. Patient 14:53:58 CDT Jonel Hemphill MD [facility] CPT-32621 Level 4 Est. Patient 22:59:01 CDT Jonel Hemphill MD [facility]-10522 Level 4 Est. Patient 09:29:57 CDT Jonel Hemphill MD [facility]-02732 Level 4 Est. Patient 12:35:53 IVORY CARVER Jonel Hemphill MD [facility]-71660 Level 4 Est. Patient 22:36:09 IVORY CARVER Jonel Hemphill MD [facility]-10625 Level 2 Est. Patient 15:14:15 IVORY CARVER Mayco Shah APRN -79689 Level 4 Est. Patient 10:36:22 IVORY CARVER Jonel Hemphill MD [facility] CPT-60122 Level 4 Est. Patient 22:01:13 IVORY CARVER Jonel Hemphill MD [facility] CPT-41504 Level 3 Est. Patient 21:50:37 IVORY CARVER Jonel Hemphill MD [facility] CPT-94118 Level 4 Est. Patient 15:02:43 CDT Rubin Pierre MD [facility] CPT-93277 Level 4 Est. Patient 14:27:35 CDT Jonel Hemphill MD [facility] CPT-91322 Level 4 Est. Patient 12:41:17 CDT Jonel Hemphill MD [facility]-65085 Level 4 Est. Patient 16:18:55 CDT Jonel Hemphill MD [facility]-46273 Level 4 Est. Patient 17:58:05 CDT Jonel Hemphill MD [facility]-38505 Level 4 Est. Patient 22:10:06 CDT Jonel Hemphill MD [facility] CPT-19976 Level 4 Est. Patient 13:22:09 CDT Jonel Hemphill MD [facility] CPT-95189 Level 4 Est. Patient 22:52:17 IVORY CARVER Jonel Hemphill MD [facility]-02041 Level 3 Est. Patient 22:34:10 IVORY CARVER Jonel Hemphill MD [facility] CPT-74415 Level 4 Est. Patient 07:49:20 IVORY CARVER Jonel Hemphill MD [facility] Skilled CPT-75400 Level 3 Est. Patient 08:28:27 IVORY CARVER Jonel Hemphill MD [facility] Procedures Code Procedure Name Date Entry Date Standard Description CPT-94111 Level 3 [facility] 17:35:26 IVORY CARVER CPT-77980 Level 3 [facility] 18:44:49 IVORY CARVER CPT-59975 Level 3 [facility]ci 18:17:33 CDT CPT-45509 Level 3 [facility] 09:25:33 CDT CPT-87475 Level 3 [facility]ci 19:11:57 CDT CPT-46069 Level 3 [facility] 09:25:52 CDT CPT-06437 Level 3 [facility] 14:23:59 CDT CPT-80801 Level 3 [facility] 12:09:43 CDT CPT-46508 Level 3 [facility]ci 09:37:40 CDT CPT-93190 Level 3 [facility] 18:23:02 CDT CPT-07444 Level 3 [facility] 14:09:06 CDT CPT-92553 Level 3 [facility]ci 12:43:27 IVORY CARVER CPT-15062 Postop F/U Visit 14:10:15 IVORY CARVER CPT-89534 [facility] 17:07:14 IVORY CARVER CPT-17382 Level 3 [facility] 16:14:37 IVORY CARVER CPT-67463 Port a cath flush 11:47:42 CDT CPT-17270 Port a cath flush 08:29:49 CDT CPT-OV Office Visit 14:27:58 IVORY CARVER
--- OUTSIDE RECORDS SUMMARY | 2016-08-07 12:43 | XMS REPORT | Clinical Summary ---
Author Author Admin, [place] Organization [facility] Address Unknown Phone Unavailable Allergies, Adverse Reactions, Alerts Allergy Name Reaction Description Start Date Severity Status Provider PENICILLIN Critical Active Danajaida Giles, RMA Conditions or Problems Problem Name 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, NIB FINISHER V58.69 Resolved Jonel Hemphill MD Long-term (current) [...] Coronary atherosclerosis of unspecified type of vessel, point hope ira or graft FH DIABETES V18.0 Resolved Jonel [...] Coronary atherosclerosis of unspecified type of vessel, point hope ira or graft CONSTIPATION 564.00 Resolved Jonel Hemphill [...] Obstructive sleep apnea (adult) (pediatric) 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 USE, NIB FINISHER ICD-V58.69 Inactive Jonel Hemphill MD DIABETES, TYPE [...] skin and change every 72 hours FENTANYL 26662991223 Active Tova Chris Active MIRALAX POWD 17 gms in 4 oz water or juice daily POLYETHYLENE GLYCOL 3350 02473848781 Active Jonel Hemphill MD Active [facility]S MELATONIN 3 MG ORAL TABS 2 tabs at hs MELATONIN 31937518993 Active Jonel Hemphill MD Active MAGNESIUM GLUCONATE 500 MG ORAL TABS 1 tab twice daily MAGNESIUM GLUCONATE 25598985101 Active Jonel Hemphill MD Active OMEPRAZOLE 20 MG CPDR 1 tablet by mouth daily OMEPRAZOLE 08758852204 Active Jonel Hemphill MD Active DIGOXIN 125 MCG ORAL TABS 1 daily DIGOXIN 48686454046 Active Jonel Hemphill MD Active DILTIAZEM CD 240 MG ORAL [id number] 1 daily DILTIAZEM HCL COATED BEADS 14991960553 Active Jonel Hemphill MD Active NOVOLOG 100 UNIT/ML SC SOLN 70-140=0U 141-180=2 U 181-220=4U 221-260=6U 261- 300=8U 301-340=10U 102=584=00C 381-400=14U INSULIN ASPART 41287158167 Active Jonel Hemphill MD Active ACETAMINOPHEN 325 MG ORAL TABS 1 tab by mouth every 4 hours as needed ACETAMINOPHEN 82354859174 Active Jonel Hemphill MD Active FENTANYL 12 MCG/HR PT72 Apply to clean, dry skin and change every 72 hours FENTANYL 24567500265 No Longer Active Jonel Hemphill MD Active PHENYTOIN 50 MG CHEW 1 TAB PO BID PHENYTOIN 19330142118 No Longer Active Jonel Hemphill MD Active NORCO 5-325 MG TABS 1-2 TAB Q 6 HRS PRN HYDROCODONE- ACETAMINOPHEN 73840083513 No Longer Active Jonel Hemphill MD Active MULTIVITAMINS CAPS 1 DAILY MULTIPLE VITAMIN 92236187073 No Longer Active Jonel Hemphill MD Active BUPROPION HCL ER (SR) 150 MG [id number] 1 twice a day for depression BUPROPION HCL 87998675965 No Longer Active Jonel Hemphill MD Active LISINOPRIL 20 MG TABS 1 tablet by mouth daily LISINOPRIL 67586096791 Active Jonel Hemphill MD Active ULORIC 40 MG ORAL TABS 1 daily for gout. FEBUXOSTAT 26612079820 No Longer Active Jonel Hemphill MD Active CELEXA 20 MG TABS 1 tablet by mouth daily CITALOPRAM HYDROBROMIDE 98885754697 Active Marleni Raida Active ZOFRAN 4 MG TABS 1 po q6hr PRN Nausea ONDANSETRON HCL 53846052891 Active Jonel Hemphill MD Active XARELTO 20 MG ORAL TABS 1 daily RIVAROXABAN 79671581264 Active Jonel Hemphill MD Active JANUVIA 100 MG ORAL TABS 2 tabs daily SITAGLIPTIN PHOSPHATE 60181867324 Active Jonel Hemphill MD Active CELEXA 20 MG TABS Take 1 tablet 1x daily CITALOPRAM HYDROBROMIDE 77776883206 No Longer Active Jonel Hemphill MD Active ATIVAN 0.5 MG TABS Take 1 tablet 2x daily PRN LORAZEPAM 98461642579 No Longer Active Jonel Hemphill MD Active FUROSEMIDE 80 MG ORAL TABS 1 daily FUROSEMIDE 91680877205 Active Jonel Hemphill MD Active MECLIZINE HCL 25 MG CHEW TAB 1 four times a day as needed for dizziness 02/21 MECLIZINE HCL 62673975806 No Longer Active Jonel Hemphill MD Active ZYLOPRIM 300 MG TAB 1 BY MOUTH DAILY ALLOPURINOL 94764690187 No Longer Active Jonel Hemphill MD Active METOPROLOL TARTRATE 50 MG ORAL TABS 1 TAB BY MOUTH TWICE DAILY METOPROLOL TARTRATE 37301187868 No Longer Active Jonel Hemphill MD Active GABAPENTIN 400 MG ORAL CAPS 1 TAB BY MOUTH THREE TIMES DAILY 2015 GABAPENTIN 72665099232 No Longer Active Jonel Hemphill MD Active HYDROCODONE-ACETAMINOPHEN 7.5-325 MG TABS 1 TAB PO Q 6 HRS PRN HYDROCODONE-ACETAMINOPHEN 72680445713 Active Jonel Hemphill MD Active METFORMIN HCL 1000 MG TABS 1 tablet by mouth twice daily METFORMIN HCL 41793871013 Active Marleni Romero Active KLOR-CON 20 MEQ ORAL PACK 1 BY MOUTH DAILY POTASSIUM CHLORIDE 31393912528 Active Marleni Romero Active A+D FIRST AID EXT OINT APPLY OINTMENT AND RUFINO WRAPS TO LOWER EXTEREMETIES DAILY SKIN PROTECTANTS, MISC. 55629046242 Active Jonel Hemphill MD Active NYSTATIN 766749 UNIT/GM EXT OINT APPLY PRN TID TO GAULDING/RASH IN ABDOMINAL FOLDS NYSTATIN 54621533022 Active Jonel Hemphill MD Active GABAPENTIN 300 MG CAPS 1 CAP PO TID GABAPENTIN 27392567087 No Longer Active Jonel Hemphill MD Active DILANTIN 100 MG ORAL CAPS 1 THREE TIMES DAILY FOR SEIZURES PHENYTOIN SODIUM EXTENDED 25209050663 Active Marleni Romero Active CPAP APPLY AT HS CPAP Active Jonel Hemphill MD Active HYDROCODONE-ACETAMINOPHEN 7.5-325 MG TABS 1 q 6 hrs prn HYDROCODONE-ACETAMINOPHEN 39945373490 No Longer Active Jonel Hemphill MD Active DILANTIN 100 MG CAPS 3 cap tid PHENYTOIN SODIUM EXTENDED 07379683155 No Longer Active Jonel Hemphill MD Active BUDEPRION SR 150 MG [id number] 1 bid BUPROPION HCL 64942738032 No Longer Active Jonel Hemphill MD Active ALLOPURINOL 300 MG TABS 1 qd ALLOPURINOL 19845218112 No Longer Active Jonel Hemphill MD Active COZAAR 100 MG TABS 1 qd LOSARTAN POTASSIUM 38261682270 No Longer Active Jonel Hemphill MD Active CVS VITAMIN C 500 MG TABS 1 po daily ASCORBIC ACID 88405812567 No Longer Active Jonel Hemphill MD Active MIRALAX POWD 17 gms in 4 oz water or juice daily POLYETHYLENE GLYCOL 3350 69298376434 No Longer Active Jonel Hemphill MD Active POTASSIUM CHLORIDE CHELA ER 20 MEQ CR-TABS 1 tab PO daily POTASSIUM CHLORIDE CHELA CR 39261380568 No Longer Active Jonel Hemphill MD Active AMBIEN 10 MG TAB 1 tab by mouth at bedtime as needed for sleep ZOLPIDEM TARTRATE 07912267765 No Longer Active Jonel Hemphill MD Active SULFAMETHOXAZOLE-TMP DS 800-160 MG TABS 1 TAB PO BID SULFAMETHOXAZOLE-TRIMETHOPRIM 71831205423 No Longer Active Jonel Hemphill MD Active LEVEMIR 100 UNIT/ML SOLN 5 units sub-q at bedtime INSULIN DETEMIR 79483904038 No Longer Active Tova Perez Active MOBIC 15 MG TABS 1 tab PO daily for arthritis pain MELOXICAM 20577246434 No Longer Active Tova Perez Active GLUCAGEN 1 MG SOLR INJECT 1MG IM IF BS LESS THAN 60 & RES. IS UNABLE TO SWALLOW GLUCAGON HCL (RDNA) 22665891546 No Longer Active Tova Perez Active CVS MILK OF MAGNESIA 1200 MG/15ML SUSP 30 ml daily for constipation MAGNESIUM HYDROXIDE 88187320772 No Longer Active Tova Perez Active IMDUR 120 MG [id number]-NFW 1 qd ISOSORBIDE MONONITRATE 41054504349 No Longer Active Tova Perez Active NEURONTIN 400 MG CAPS Take one by mouth 3 times daily, morning, afternoon and evening.] GABAPENTIN 90373656285 No Longer Active Tova Perez Active ANTIVERT 25 MG TABS 1 q 6 hrs prn MECLIZINE HCL 85879748058 No Longer Active Jonel Hemphill MD Active CLONIDINE HCL 0.2 MG TABS 1 q 8 hrs as needed -greater than 160-htn CLONIDINE HCL 12577177466 No Longer Active Jonel Hemphill MD Active AMBIEN 10 MG TABS 1 q hs prn ZOLPIDEM TARTRATE 70722837928 No Longer Active Jonel Hemphill MD Active GNP THERAPEUTIC-M TABS 1 qd MULTIPLE VITAMINS- MINERALS 56386376697 No Longer Active Jonel Hemphill MD Active METOPROLOL TARTRATE 50 MG TABS 1 bid METOPROLOL TARTRATE 81678088217 No Longer Active Jonel Hemphill MD Active METFORMIN HCL 500 MG TABS 1 bod with food METFORMIN HCL 11645143701 No Longer Active Jonel Hemphill MD Active LISINOPRIL 40 MG TABS 1 qd LISINOPRIL 92363668142 No Longer Active Jonel Hemphill MD Active HYDROCHLOROTHIAZIDE 25 MG TABS 1 qd HYDROCHLOROTHIAZIDE 36092470472 No Longer Active Jonel Hemphill MD Active DURAGESIC-25 25 MCG/HR PT72 place 1 patch on the skin q72hrs for pain FENTANYL 69513381395 No Longer Active Jonel Hemphill MD Active FENTANYL 75 MCG/HR PT72 place 1 patch on skin q72hrs fr pain 2012 FENTANYL 28010164900 No Longer Active Jonel Hemphill MD Active FUROSEMIDE 40 MG TABS 1 q am FUROSEMIDE 12954063916 No Longer Active Jonel Hemphill MD Active HEPARIN (PORCINE) LOCK FLUSH 100 UNIT/ML SOLN Flush port a cath monthly every three week on with Heparin and NS HEPARIN LOCK FLUSH 61068922228 Active Jonel Hemphill MD Active FENTANYL 100 MCG/HR PT72 Apply every 3 days FENTANYL 80273151483 Active Jonel Hemphill MD Active FENTANYL 25 MCG/HR PT72 Apply to clean skin and change every 72 hours. 07/03 FENTANYL 82360391771 No Longer Active Jonel Hemphill MD Active FENTANYL 50 MCG/HR PT72 place 1 patch on skin q72 hours FENTANYL 01645991029 No Longer Active Mayco Shah APRN Active DURAGESIC-12 12 MCG/HR PT72 APPLY PATCH TO SKIN AND CHANGE EVERY 72 HOURS, ROTATE SITES FENTANYL 99950507979 No Longer Active Fozia YANGA Active FUROSEMIDE 20 MG TABS 1 qd FUROSEMIDE 65292955588 No Longer Active Mahogany Lancaster Active ADULT ASPIRIN EC LOW STRENGTH 81 MG TBEC 1 qd ASPIRIN 11144701785 Active MARY Perez Active FUROSEMIDE 20 MG TABS 1 qd FUROSEMIDE 20 MG TABS 575575 FUROSEMIDE Inactive DURAGESIC-12 12 MCG/HR PT72 APPLY PATCH TO SKIN AND CHANGE EVERY 72 HOURS, ROTATE SITES DURAGESIC-12 12 MCG/HR PT72 178397 FENTANYL Inactive FENTANYL 50 MCG/HR PT72 place 1 patch on skin q72 hours FENTANYL 50 MCG/HR PT72 165716 FENTANYL Inactive FUROSEMIDE 40 MG TABS 1 q am FUROSEMIDE 40 MG TABS 755889 FUROSEMIDE Inactive FENTANYL 75 MCG/HR PT72 place 1 patch on skin q72hrs fr pain 2012 FENTANYL 75 MCG/HR PT72 598904 FENTANYL Inactive DURAGESIC-25 25 MCG/HR PT72 place 1 patch on the skin q72hrs for pain DURAGESIC-25 25 MCG/HR PT72 357380 FENTANYL Inactive HYDROCHLOROTHIAZIDE 25 MG TABS 1 qd HYDROCHLOROTHIAZIDE 25 MG TABS 283467 HYDROCHLOROTHIAZIDE Inactive LISINOPRIL 40 MG TABS 1 qd LISINOPRIL 40 MG TABS 678447 LISINOPRIL Inactive METFORMIN HCL 500 MG TABS 1 bod with food METFORMIN HCL 500 MG TABS 043870 METFORMIN HCL Inactive METOPROLOL TARTRATE 50 MG TABS 1 bid METOPROLOL TARTRATE 50 MG TABS 973112 METOPROLOL TARTRATE Inactive GNP THERAPEUTIC-M TABS 1 qd GNP THERAPEUTIC-M TABS MULTIPLE VITAMINS-MINERALS Inactive AMBIEN 10 MG TABS 1 q hs prn AMBIEN 10 MG TABS 525136 ZOLPIDEM TARTRATE Inactive CLONIDINE HCL 0.2 MG TABS 1 q 8 hrs as needed -greater than 160-htn CLONIDINE HCL 0.2 MG TABS 718672 CLONIDINE HCL Inactive ANTIVERT 25 MG TABS 1 q 6 hrs prn ANTIVERT 25 MG TABS MECLIZINE HCL Inactive NEURONTIN 400 MG CAPS Take one by mouth 3 times daily, morning, afternoon and evening.] NEURONTIN 400 MG CAPS 715738 GABAPENTIN Inactive IMDUR 120 MG [id number] 1 qd IMDUR 120 MG [id number]-DZZ ISOSORBIDE MONONITRATE Inactive CVS MILK OF MAGNESIA [...] for arthritis pain MOBIC 15 MG TABS 519260 MELOXICAM Inactive LEVEMIR 100 UNIT/ML SOLN 5 units sub-q at bedtime LEVEMIR 100 UNIT/ML SOLN INSULIN DETEMIR Inactive SULFAMETHOXAZOLE-TMP DS 800-160 MG TABS 1 TAB PO BID SULFAMETHOXAZOLE-TMP DS 800-160 MG TABS 167427 SULFAMETHOXAZOLE-TRIMETHOPRIM Inactive AMBIEN 10 MG TAB 1 tab by mouth at bedtime as needed for sleep AMBIEN 10 MG TAB 686059 ZOLPIDEM TARTRATE Inactive POTASSIUM CHLORIDE CHELA ER 20 MEQ CR-TABS 1 tab PO daily POTASSIUM CHLORIDE CHELA ER 20 MEQ CR-TABS POTASSIUM CHLORIDE CHELA CR Inactive MIRALAX POWD 17 gms in 4 oz water or juice daily MIRALAX POWD 522470 POLYETHYLENE GLYCOL 3350 Inactive CVS VITAMIN C 500 MG TABS 1 po daily CVS VITAMIN C 500 MG TABS 617647 ASCORBIC ACID Inactive COZAAR 100 MG TABS 1 qd COZAAR 100 MG TABS 829894 LOSARTAN POTASSIUM Inactive ALLOPURINOL 300 MG TABS 1 qd ALLOPURINOL 300 MG TABS 264602 ALLOPURINOL Inactive BUDEPRION SR 150 MG [id number] 1 bid BUDEPRION SR 150 MG [id number] BUPROPION HCL Inactive DILANTIN 100 MG CAPS 3 cap tid DILANTIN 100 MG CAPS 126943 PHENYTOIN SODIUM EXTENDED Inactive HYDROCODONE-ACETAMINOPHEN 7.5-325 MG TABS 1 q 6 hrs prn HYDROCODONE-ACETAMINOPHEN 7.5-325 MG TABS 591237 HYDROCODONE- ACETAMINOPHEN Inactive GABAPENTIN 300 MG CAPS 1 CAP PO TID GABAPENTIN 300 MG CAPS 983809 GABAPENTIN Inactive GABAPENTIN 400 MG ORAL CAPS 1 TAB BY MOUTH THREE TIMES DAILY 2015 GABAPENTIN 400 MG ORAL CAPS 360427 GABAPENTIN Inactive METOPROLOL TARTRATE 50 MG ORAL TABS 1 TAB BY MOUTH TWICE DAILY METOPROLOL TARTRATE 50 MG ORAL TABS 062435 METOPROLOL TARTRATE Inactive ZYLOPRIM 300 MG TAB 1 BY MOUTH DAILY ZYLOPRIM 300 MG TAB 699945 ALLOPURINOL Inactive MECLIZINE HCL 25 MG CHEW TAB 1 four times a day as needed for dizziness 02/21 MECLIZINE HCL 25 MG CHEW TAB 512839 MECLIZINE HCL Inactive ATIVAN 0.5 MG TABS Take 1 tablet 2x daily PRN ATIVAN 0.5 MG TABS 936117 LORAZEPAM Inactive CELEXA 20 MG TABS Take 1 tablet 1x daily CELEXA 20 MG TABS 732375 CITALOPRAM HYDROBROMIDE Inactive ULORIC 40 MG ORAL TABS 1 daily for gout. ULORIC 40 MG ORAL TABS FEBUXOSTAT Inactive BUPROPION HCL ER (SR) 150 MG MZ74H-MUI 1 twice a day for depression BUPROPION HCL ER (SR) 150 MG GL47O-TPQ BUPROPION HCL Inactive MULTIVITAMINS CAPS 1 DAILY MULTIVITAMINS CAPS MULTIPLE VITAMIN Inactive NORCO 5-325 MG TABS 1-2 TAB Q 6 HRS PRN NORCO 5-325 MG TABS 930556 HYDROCODONE-ACETAMINOPHEN Inactive PHENYTOIN 50 MG CHEW 1 TAB PO BID PHENYTOIN 50 MG CHEW 9745518 PHENYTOIN Inactive FENTANYL 12 MCG/HR PT72 Apply to clean, dry skin and change every 72 hours FENTANYL 12 MCG/HR PT72 878843 FENTANYL Inactive FENTANYL 25 MCG/HR PT72 Apply to clean skin and change every 72 hours. 07/03 FENTANYL 25 MCG/HR PT72 671934 FENTANYL Inactive Advance Directives Directive Description Start [...] Yes Encounters Code Encounter Date Provider Facility CPT-84570 Level 4 Est. Patient 10:04:48 CAP LINING MACHINE OPERATOR Jonel Hemphill MD [facility] CPT-81052 Level 3 Est. Patient 19:05:03 CDT Jonel Hemphill MD [facility] CPT-83974 Level 3 Est. Patient 17:30:47 CDT Kevin Link MD [facility] CPT-44573 Level 3 Est. Patient 18:04:07 CDT Jonel Hemphill MD [facility] CPT-17651 Level 3 Est. Patient 17:18:03 CDT Jonel Hemphill MD [facility] CPT-82810 Level 3 Est. Patient 21:58:03 CAP LINING MACHINE OPERATOR Jonel Hemphill MD [facility] CPT-69236 Level 4 Est. Patient 18:03:14 CDT Jonel Yeager [facility]-45875 Level 4 Est. Patient 13:24:53 CDT Jonel Yeager [facility]-75780 Level 4 Est. Patient 09:15:44 CDT Jonel Yeager [facility]-68112 Level 4 Est. Patient 19:16:01 CDT Jonel Yeager [facility] CPT-13682 Level 4 Est. Patient 11:25:16 CDT Jonel Hemphill MD [facility] CPT-37277 Level 4 Est. Patient 09:00:40 CDT Jonel Yeager [facility]-17087 Level 4 Est. Patient 14:53:58 CDT Jonel Hemphill MD [facility] CPT-23566 Level 4 Est. Patient 22:59:01 CDT Jonel Hemphill MD [facility]-03521 Level 4 Est. Patient 09:29:57 CDT Jonel Hemphill MD [facility]-45359 Level 4 Est. Patient 12:35:53 CAP LINING MACHINE OPERATOR Jonel Hemphill MD [facility]-20295 Level 4 Est. Patient 22:36:09 CAP LINING MACHINE OPERATOR Jonel Hemphill MD [facility]-65909 Level 2 Est. Patient 15:14:15 CAP LINING MACHINE OPERATOR Mayco Shah APRN [facility] CPT-68059 Level 4 Est. Patient 10:36:22 CAP LINING MACHINE OPERATOR Jonel Hemphill MD [facility] CPT-13959 Level 4 Est. Patient 22:01:13 CAP LINING MACHINE OPERATOR Jonel Hemphill MD [facility]-17410 Level 3 Est. Patient 21:50:37 CAP LINING MACHINE OPERATOR Jonel Hemphill MD [facility] CPT-26215 Level 4 Est. Patient 15:02:43 CDT Rubin Pierre MD [facility] CPT-44466 Level 4 Est. Patient 14:27:35 CDT Jonel Hemphill MD [facility]-51011 Level 4 Est. Patient 12:41:17 CDT Jonel Hemphill MD [facility]-85996 Level 4 Est. Patient 16:18:55 CDT Jonel Hemphill MD [facility]-16324 Level 4 Est. Patient 17:58:05 CDT Jonel Hemphill MD [facility]-20839 Level 4 Est. Patient 22:10:06 CDT Jonel Hemphill MD [facility]-00080 Level 4 Est. Patient 13:22:09 CDT Jonel Hemphill MD [facility]-33642 Level 4 Est. Patient 22:52:17 CAP LINING MACHINE OPERATOR Jonel Hemphill MD [facility] CPT-51775 Level 3 Est. Patient 22:34:10 CAP LINING MACHINE OPERATOR Jonel Hemphill MD [facility] CPT-88565 Level 4 Est. Patient 07:49:20 CAP LINING MACHINE OPERATOR Jonel Hemphill MD [facility] Skilled CPT-34428 Level 3 Est. Patient 08:28:27 CAP LINING MACHINE OPERATOR Jonel Hemphill MD [facility] Procedures Code Procedure Name Date Entry Date Standard Description CPT-60084 Level 3 Prison 21:14:15 CAP LINING MACHINE OPERATOR CPT-24019 Level 3 Prison 15:38:24 CDT CPT-33117 Level 3 Prison 08:18:30 CDT CPT-10662 Level 3 Prison 19:03:14 CDT CPT-76960 Level 3 Prison 17:42:11 CDT CPT-57718 Level 3 Prison 16:04:10 CDT CPT-22289 Level 3 Prison 19:38:15 CAP LINING MACHINE OPERATOR CPT-17581 Level 3 Prison 19:28:48 CAP LINING MACHINE OPERATOR CPT-07289 Level 3 Prison 18:02:20 CAP LINING MACHINE OPERATOR CPT-12321 Level 3 Prison 15:02:14 CAP LINING MACHINE OPERATOR CPT-67056 Level 3 Prison 12:25:37 CDT CPT-66839 Level 3 Prison 12:48:39 CDT CPT-56008 Level 3 Prison 17:39:14 CDT CPT-07181 Level 3 Prison 13:32:58 CDT CPT-23870 Level 3 Prison 17:43:43 CDT CPT-06371 Level 3 Prison 12:03:33 CAP LINING MACHINE OPERATOR CPT-34184 Level 3 Prison 18:47:28 CAP LINING MACHINE OPERATOR CPT-80542 Level 3 Prison 17:35:26 CAP LINING MACHINE OPERATOR CPT-96091 Level 3 Prison 18:44:49 CAP LINING MACHINE OPERATOR CPT-23681 Level 3 Prison 18:17:33 CDT CPT-40711 Level 3 Prison 09:25:33 CDT CPT-94968 Level 3 Prison 19:11:57 CDT CPT-03380 Level 3 Prison 09:25:52 CDT CPT-91199 Level 3 Prison 14:23:59 CDT CPT-87012 Level 3 Prison 12:09:43 CDT CPT-84529 Level 3 Prison 09:37:40 CDT CPT-10748 Level 3 Prison 18:23:02 CDT CPT-86091 Level 3 Prison 14:09:06 CDT CPT-03531 Level 3 Prison 12:43:27 CAP LINING MACHINE OPERATOR CPT-26875 Postop F/U Visit 14:10:15 CAP LINING MACHINE OPERATOR CPT-03911 [facility] 17:07:14 CAP LINING MACHINE OPERATOR CPT-25768 Level 3 Prison 16:14:37 CAP LINING MACHINE OPERATOR CPT-16835 Port a cath flush 11:47:42 CDT CPT-93403 Port a cath flush 08:29:49 CDT CPT-OV Office Visit 14:27:58 CAP LINING MACHINE OPERATOR
--- OUTSIDE RECORDS SUMMARY | 2016-08-07 12:43 | XMS REPORT ---
Author Author [facility] Medical Staff Organization [facility] Address [address] [place], [place] [id number] Phone [phone] Care Team Providers Care Traveling Freight Agent Name Role Phone FRANKO PRIETO MD PP [phone] Summary purpose TRANSITION OF CARE AUTO GENERATION [...] diagnostic tests and/or laboratory data RESULTS Hematology [id number]:50:00 Result Normal Range Units WBC 7.5 4.8-10.8 103/uL RBC L 4.6 4.7-6.1 106/uL HGB 14.5 13.0-18.0 g/dl HCT 42.5 41.9-52.0 % MCV 92.8 80-94 FL MCH H 31.7 27-31 pg MCHC 34.1 33-37 g/dl RDW 14.0 11.5-15.5 % PLT L 128 130-400 103/uL MPV H 12.4 7.3-10.4 FL History of procedures Procedure Code Code Type Description Date Performed Performing Physician [id number] CPT-4 COMPLETE CBC, AUTOMATED 01-06-2014 WINSTON CORTEZ Functional status No functional or [...]
--- OUTSIDE RECORDS SUMMARY | 2016-08-07 12:44 | XMS REPORT | Clinical Summary ---
Author Author Admin, KARLAE Organization [facility] Address Unknown Phone Unavailable Allergies, Adverse Reactions, Alerts Allergy Name Reaction Description Start Date Severity Status Provider PENICILLIN Critical Active [place] Giles RMA Conditions or Problems Problem Name 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, MEMBER SERVICES COORDINATOR V58.69 Resolved Jonel Hemphill MD [...] Coronary atherosclerosis of unspecified type of vessel, twenty-nine palms or graft FH DIABETES V18.0 Resolved Jonel [...] Coronary atherosclerosis of unspecified type of vessel, twenty-nine palms or graft CONSTIPATION 564.00 Resolved Jonel Hemphill [...] TREMOR ICD-781.0 Inactive Jonel Hemphill MD 05/30 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 USE, NURSING HOME ICD-V58.69 Inactive Jonel Hemphill MD FITTING AND [...] fatigue ICD-780.79 Malina Hemphill MD Nightmares ICD-307.47 Malina Hemphill MD Bronchitis-Acute ICD-466.0 Inactive Jonel Hemphill MD Cellulitis, leg, right ICD-682.6 Inactive Jonel Hemphill MD Flank pain, right ICD-789.09 Inactive Jonel Hemphill MD Medication List Medication Instructions Start Date Stop Date Generic Name NDC Status Provider Patient Instruction ULORIC 40 MG ORAL TABS 1 daily for gout. FEBUXOSTAT 02978353924 Active Marleni Romero Active HYDROCODONE-ACETAMINOPHEN 7.5-325 MG TABS 1 TAB PO Q 6 HRS PRN HYDROCODONE-ACETAMINOPHEN 99472314355 Active Jonel Hemphill MD Active METFORMIN HCL 1000 MG TABS 1 tablet by mouth twice daily METFORMIN HCL 37011651258 Active Marleni Romero Active FENTANYL 12 MCG/HR PT72 Apply to clean, dry skin and change every 72 hours FENTANYL 62110032178 Active Mattie Gates APRN Active KLOR-CON 20 MEQ ORAL PACK 1 BY MOUTH DAILY POTASSIUM CHLORIDE 06554414113 Active Marleni oRmero Active A+D FIRST AID EXT OINT APPLY OINTMENT AND RUFINO WRAPS TO LOWER EXTEREMETIES DAILY SKIN PROTECTANTS, MISC. 49817625682 Active Jonel Hemphill MD Active NYSTATIN 053920 UNIT/GM EXT OINT APPLY PRN TID TO GAULDING/RASH IN ABDOMINAL FOLDS NYSTATIN 51853640215 Active Jonel Hemphill MD Active ATIVAN 0.5 MG TABS Take 1 tablet 2x daily PRN LORAZEPAM 28223359356 Active Jonel Hemphill MD Active GABAPENTIN 400 MG ORAL CAPS 1 TAB BY MOUTH THREE TIMES DAILY GABAPENTIN 91764673040 Active Jonel Hemphill MD Active GABAPENTIN 300 MG CAPS 1 CAP PO TID GABAPENTIN 94211967985 No Longer Active Jonel Hemphill MD Active DILANTIN 100 MG ORAL CAPS 1 THREE TIMES DAILY FOR SEIZURES PHENYTOIN SODIUM EXTENDED 38979760191 Active Marleni Romero Active CPAP APPLY AT HS CPAP Active Jonel Hemphill MD Active METOPROLOL TARTRATE 50 MG ORAL TABS 1 TAB BY MOUTH TWICE DAILY METOPROLOL TARTRATE 97036010774 Active Jonel Hemphill MD Active LISINOPRIL 40 MG TABS 1 tablet by mouth twice daily, for blood pressure 03/31 LISINOPRIL 22236571874 Active Jonel Hemphill MD Active BUPROPION HCL ER (SR) 150 MG [id number] 1 twice a day for depression BUPROPION HCL 86758461710 Active Jonel Hemphill MD Active MULTIVITAMINS CAPS 1 DAILY MULTIPLE VITAMIN 11043751305 Active Jonel Hemphill MD Active ZYLOPRIM 300 MG TAB 1 BY MOUTH DAILY ALLOPURINOL 30144557776 Active Jonel Hemphill MD Active HYDROCODONE-ACETAMINOPHEN 7.5-325 MG TABS 1 q 6 hrs prn HYDROCODONE-ACETAMINOPHEN 24673826438 No Longer Active Jonel Hemphill MD Active DILANTIN 100 MG CAPS 3 cap tid PHENYTOIN SODIUM EXTENDED 75805019779 No Longer Active Jonel Hemphill MD Active BUDEPRION SR 150 MG [id number] 1 bid BUPROPION HCL 34350515586 No Longer Active Jonel Hemphill MD Active ALLOPURINOL 300 MG TABS 1 qd ALLOPURINOL 39305062850 No Longer Active Jonel Hemphill MD Active COZAAR 100 MG TABS 1 qd LOSARTAN POTASSIUM 20335058953 No Longer Active Jonel Hemphill MD Active CVS VITAMIN C 500 MG TABS 1 po daily ASCORBIC ACID 84413362758 No Longer Active Jonel Hemphill MD Active MIRALAX POWD 17 gms in 4 oz water or juice daily POLYETHYLENE GLYCOL 3350 60641738858 No Longer Active Jonel Hemphill MD Active POTASSIUM CHLORIDE CHELA ER 20 MEQ CR-TABS 1 tab PO daily POTASSIUM CHLORIDE CHELA CR 87878624804 No Longer Active Jonel Hemphill MD Active AMBIEN 10 MG TAB 1 tab by mouth at bedtime as needed for sleep ZOLPIDEM TARTRATE 71133213157 No Longer Active Jonel Hemphill MD Active SULFAMETHOXAZOLE-TMP DS 800-160 MG TABS 1 TAB PO BID SULFAMETHOXAZOLE-TRIMETHOPRIM 61108635235 No Longer Active Jonel Hemphill MD Active NORCO 5-325 MG TABS 1-2 TAB Q 6 HRS PRN HYDROCODONE- ACETAMINOPHEN 09896279903 Active Jonel Hemphill MD Active LEVEMIR 100 UNIT/ML SOLN 5 units sub-q at bedtime INSULIN DETEMIR 71661573703 No Longer Active Tova Perez Active MOBIC 15 MG TABS 1 tab PO daily for arthritis pain MELOXICAM 74668769663 No Longer Active Tova Perez Active GLUCAGEN 1 MG SOLR INJECT 1MG IM IF BS LESS THAN 60 & RES. IS UNABLE TO SWALLOW GLUCAGON HCL (RDNA) 31197572820 No Longer Active Tova Perez Active CVS MILK OF MAGNESIA 1200 MG/15ML SUSP 30 ml daily for constipation MAGNESIUM HYDROXIDE 12047315206 No Longer Active Tova Perez Active IMDUR 120 MG [id number]-GRT 1 qd ISOSORBIDE MONONITRATE 98312095700 No Longer Active Tova Perez Active PHENYTOIN 50 MG CHEW 1 TAB PO BID PHENYTOIN 77883942169 Active Tova Perez Active MECLIZINE HCL 25 MG CHEW TAB 1 four times a day as needed for dizziness 02/21 MECLIZINE HCL 39421451819 Active Tova Perez Active NEURONTIN 400 MG CAPS Take one by mouth 3 times daily, morning, afternoon and evening.] GABAPENTIN 03035898876 No Longer Active Tova Perez Active ANTIVERT 25 MG TABS 1 q 6 hrs prn MECLIZINE HCL 00069038650 No Longer Active Jonel Hemphill MD Active CLONIDINE HCL 0.2 MG TABS 1 q 8 hrs as needed -greater than 160-htn CLONIDINE HCL 85495500543 No Longer Active Jonel Hemphill MD Active AMBIEN 10 MG TABS 1 q hs prn ZOLPIDEM TARTRATE 66469860011 No Longer Active Jonel Hemphill MD Active GNP THERAPEUTIC-M TABS 1 qd MULTIPLE VITAMINS- MINERALS 17916056352 No Longer Active Jonel Hemphill MD Active METOPROLOL TARTRATE 50 MG TABS 1 bid METOPROLOL TARTRATE 27184481023 No Longer Active Jonel Hemphill MD Active METFORMIN HCL 500 MG TABS 1 bod with food METFORMIN HCL 49892579937 No Longer Active Jonel Hemphill MD Active LISINOPRIL 40 MG TABS 1 qd LISINOPRIL 18108610282 No Longer Active Jonel Hemphill MD Active HYDROCHLOROTHIAZIDE 25 MG TABS 1 qd HYDROCHLOROTHIAZIDE 37883081646 No Longer Active Jonel Hemphill MD Active DURAGESIC-25 25 MCG/HR PT72 place 1 patch on the skin q72hrs for pain FENTANYL 92754896315 No Longer Active Jonel Hemphill MD Active FENTANYL 75 MCG/HR PT72 place 1 patch on skin q72hrs fr pain 2012 FENTANYL 42721031090 No Longer Active Jonel Hemphill MD Active LASIX 20 MG TABS 1 tab PO q morning FUROSEMIDE 12201060845 Active Jonel Hemphill MD Active FUROSEMIDE 40 MG TABS 1 q am FUROSEMIDE 16189220030 No Longer Active Jonel Hemphill MD Active HEPARIN (PORCINE) LOCK FLUSH 100 UNIT/ML SOLN Flush port a cath monthly every three week on with Heparin and NS HEPARIN LOCK FLUSH 69474065159 Active Jonel Hemphill MD Active FENTANYL 100 MCG/HR PT72 Apply every 3 days FENTANYL 32308864030 Active Mattie Gates APRN Active FENTANYL 25 MCG/HR PT72 Apply to clean skin and change every 72 hours. 07/03 FENTANYL 96713498345 No Longer Active Jonel Hemphill MD Active FENTANYL 50 MCG/HR PT72 place 1 patch on skin q72 hours FENTANYL 39854348469 No Longer Active Mayco Shah APRN Active CELEXA 20 MG TABS Take 1 tablet 1x daily CITALOPRAM HYDROBROMIDE 31578211412 Active Jonel Hemphill MD Active DURAGESIC-12 12 MCG/HR PT72 APPLY PATCH TO SKIN AND CHANGE EVERY 72 HOURS, ROTATE SITES FENTANYL 89979505751 No Longer Active Fozia HERNANDEZ Active FUROSEMIDE 20 MG TABS 1 qd FUROSEMIDE 97504880103 No Longer Active Mahogany [place] Active ADULT ASPIRIN EC LOW STRENGTH 81 MG TBEC 1 qd ASPIRIN 72859688556 Active MARY Perez Active FUROSEMIDE 20 MG TABS 1 qd FUROSEMIDE 20 MG TABS 962384 FUROSEMIDE Inactive DURAGESIC-12 12 MCG/HR PT72 APPLY PATCH TO SKIN AND CHANGE EVERY 72 HOURS, ROTATE SITES DURAGESIC-12 12 MCG/HR PT72 850218 FENTANYL Inactive FENTANYL 50 MCG/HR PT72 place 1 patch on skin q72 hours FENTANYL 50 MCG/HR PT72 991558 FENTANYL Inactive FUROSEMIDE 40 MG TABS 1 q am FUROSEMIDE 40 MG TABS 872779 FUROSEMIDE Inactive FENTANYL 75 MCG/HR PT72 place 1 patch on skin q72hrs fr pain 2012 FENTANYL 75 MCG/HR PT72 082271 FENTANYL Inactive DURAGESIC-25 25 MCG/HR PT72 place 1 patch on the skin q72hrs for pain DURAGESIC-25 25 MCG/HR PT72 723565 FENTANYL Inactive HYDROCHLOROTHIAZIDE 25 MG TABS 1 qd HYDROCHLOROTHIAZIDE 25 MG TABS 894845 HYDROCHLOROTHIAZIDE Inactive LISINOPRIL 40 MG TABS 1 qd LISINOPRIL 40 MG TABS 174191 LISINOPRIL Inactive METFORMIN HCL 500 MG TABS 1 bod with food METFORMIN HCL 500 MG TABS 449706 METFORMIN HCL Inactive METOPROLOL TARTRATE 50 MG TABS 1 bid METOPROLOL TARTRATE 50 MG TABS 489544 METOPROLOL TARTRATE Inactive GNP THERAPEUTIC-M TABS 1 qd GNP THERAPEUTIC-M TABS MULTIPLE VITAMINS-MINERALS Inactive AMBIEN 10 MG TABS 1 q hs prn AMBIEN 10 MG TABS 766259 ZOLPIDEM TARTRATE Inactive CLONIDINE HCL 0.2 MG TABS 1 q 8 hrs as needed -greater than 160-htn CLONIDINE HCL 0.2 MG TABS 941255 CLONIDINE HCL Inactive ANTIVERT 25 MG TABS 1 q 6 hrs prn ANTIVERT 25 MG TABS MECLIZINE HCL Inactive NEURONTIN 400 MG CAPS Take one by mouth 3 times daily, morning, afternoon and evening.] NEURONTIN 400 MG CAPS 221149 GABAPENTIN Inactive IMDUR 120 MG [id number] 1 qd IMDUR 120 MG [id number] ISOSORBIDE MONONITRATE Inactive CVS MILK OF MAGNESIA [...] for arthritis pain MOBIC 15 MG TABS 364450 MELOXICAM Inactive LEVEMIR 100 UNIT/ML SOLN 5 units sub-q at bedtime LEVEMIR 100 UNIT/ML SOLN INSULIN DETEMIR Inactive SULFAMETHOXAZOLE-TMP DS 800-160 MG TABS 1 TAB PO BID SULFAMETHOXAZOLE-TMP DS 800-160 MG TABS 232355 SULFAMETHOXAZOLE-TRIMETHOPRIM Inactive AMBIEN 10 MG TAB 1 tab by mouth at bedtime as needed for sleep AMBIEN 10 MG TAB 047881 ZOLPIDEM TARTRATE Inactive POTASSIUM CHLORIDE CHELA ER 20 MEQ CR-TABS 1 tab PO daily POTASSIUM CHLORIDE CHELA ER 20 MEQ CR-TABS POTASSIUM CHLORIDE CHELA CR Inactive MIRALAX POWD 17 gms in 4 oz water or juice daily MIRALAX POWD 378316 POLYETHYLENE GLYCOL 3350 Inactive CVS VITAMIN C 500 MG TABS 1 po daily CVS VITAMIN C 500 MG TABS 196427 ASCORBIC ACID Inactive COZAAR 100 MG TABS 1 qd COZAAR 100 MG TABS 622628 LOSARTAN POTASSIUM Inactive ALLOPURINOL 300 MG TABS 1 qd ALLOPURINOL 300 MG TABS 691402 ALLOPURINOL Inactive BUDEPRION SR 150 MG [id number] 1 bid BUDEPRION SR 150 MG [id number] BUPROPION HCL Inactive DILANTIN 100 MG CAPS 3 cap tid DILANTIN 100 MG CAPS 154277 PHENYTOIN SODIUM EXTENDED Inactive HYDROCODONE-ACETAMINOPHEN 7.5-325 MG TABS 1 q 6 hrs prn HYDROCODONE-ACETAMINOPHEN 7.5-325 MG TABS 843514 HYDROCODONE- ACETAMINOPHEN Inactive GABAPENTIN 300 MG CAPS 1 CAP PO TID GABAPENTIN 300 MG CAPS 776933 GABAPENTIN Inactive FENTANYL 25 MCG/HR PT72 Apply to clean skin and change every 72 hours. 07/03 FENTANYL 25 MCG/HR PT72 349353 FENTANYL Inactive Advance Directives Directive Description Start [...] 23 U/L alkaline phosphatase, serum 40 U/L Chart Maintenance: Outside labs entered on flowsheet - Hematology leukocyte count, blood 6.9 10*3/mm3 hemoglobin, blood 14.4 g/dL platelet count 113 10*3/mm3 Lab Report: HGBA1C - Chemistry hemoglobin A1C, blood, as % of total hemoglobin 6.8 % 4.3-6.0 Encounters Code Encounter Date Provider Facility CPT-65572 Level 3 Est. Patient 18:04:07 CDT Jonel Hemphill MD [facility] CPT-96488 Level 3 Est. Patient 17:18:03 CDT Jonel Hemphill MD [facility]-29893 Level 3 Est. Patient 21:58:03 CERTIFIED MEDICAL TECHNICIAN Jonel Hemphill MD [facility]-11734 Level 4 Est. Patient 18:03:14 CDT Jonel Yeager [facility]-20379 Level 4 Est. Patient 13:24:53 CDT Jonel Yeager [facility]-70496 Level 4 Est. Patient 09:15:44 CDT Jonel Yeager [facility]-41472 Level 4 Est. Patient 19:16:01 CDT Jonel Yeager [facility]-98228 Level 4 Est. Patient 11:25:16 CDT Jonel Hemphill MD [facility] CPT-87624 Level 4 Est. Patient 09:00:40 CDT Jonel Yeager [facility]-48229 Level 4 Est. Patient 14:53:58 CDT Jonel Hemphill MD [facility]-69667 Level 4 Est. Patient 22:59:01 CDT Jonel Hemphill MD [facility] CPT-91196 Level 4 Est. Patient 09:29:57 CDT Jonel Hemphill MD [facility]-58988 Level 4 Est. Patient 12:35:53 CERTIFIED MEDICAL TECHNICIAN Jonel Hemphill MD [facility]-45403 Level 4 Est. Patient 22:36:09 CERTIFIED MEDICAL TECHNICIAN Jonel Hemphill MD [facility]-14503 Level 2 Est. Patient 15:14:15 CERTIFIED MEDICAL TECHNICIAN Mayco Shah APRN [facility] CPT-74818 Level 4 Est. Patient 10:36:22 CERTIFIED MEDICAL TECHNICIAN Jonel Hemphill MD [facility]-50117 Level 4 Est. Patient 22:01:13 CERTIFIED MEDICAL TECHNICIAN Jonel Hemphill MD [facility]-34704 Level 3 Est. Patient 21:50:37 CERTIFIED MEDICAL TECHNICIAN Jonel Hemphill MD [facility]-64608 Level 4 Est. Patient 15:02:43 CDT Rubin Pierre MD [facility] CPT-62055 Level 4 Est. Patient 14:27:35 CDT Jonel Hemphill MD [facility]-92307 Level 4 Est. Patient 12:41:17 CDT Jonel Hemphill MD [facility]-61961 Level 4 Est. Patient 16:18:55 CDT Jonel Hemphill MD [facility]-55802 Level 4 Est. Patient 17:58:05 CDT Jonel Hemphill MD [facility]-94819 Level 4 Est. Patient 22:10:06 CDT Jonel Hemphill MD [facility]-62437 Level 4 Est. Patient 13:22:09 CDT Jonel Hemphill MD [facility]-16866 Level 4 Est. Patient 22:52:17 CERTIFIED MEDICAL TECHNICIAN Jonel Hemphill MD [facility]-81549 Level 3 Est. Patient 22:34:10 CERTIFIED MEDICAL TECHNICIAN Jonel Hemphill MD [facility] CPT-31029 Level 4 Est. Patient 07:49:20 CERTIFIED MEDICAL TECHNICIAN Jonel Hemphill MD [facility] Skilled CPT-56874 Level 3 Est. Patient 08:28:27 CERTIFIED MEDICAL TECHNICIAN Jonel Hemphill MD [facility] Procedures Code Procedure Name Date Entry Date Standard Description CPT-25514 Level 3 Mcc 17:42:11 CDT CPT-43561 Level 3 Mcc 16:04:10 CDT CPT-68701 Level 3 Mcc 19:38:15 CERTIFIED MEDICAL TECHNICIAN CPT-06382 Level 3 Mcc 19:28:48 CERTIFIED MEDICAL TECHNICIAN CPT-22768 Level 3 Mcc 18:02:20 CERTIFIED MEDICAL TECHNICIAN CPT-68951 Level 3 Mcc 15:02:14 CERTIFIED MEDICAL TECHNICIAN CPT-17238 Level 3 Mcc 12:25:37 CDT CPT-15125 Level 3 Mcc 12:48:39 CDT CPT-77563 Level 3 Mcc 17:39:14 CDT CPT-93915 Level 3 Mcc 13:32:58 CDT CPT-56203 Level 3 Mcc 17:43:43 CDT CPT-69341 Level 3 Mcc 12:03:33 CERTIFIED MEDICAL TECHNICIAN CPT-86425 Level 3 Mcc 18:47:28 CERTIFIED MEDICAL TECHNICIAN CPT-88680 Level 3 Mcc 17:35:26 CERTIFIED MEDICAL TECHNICIAN CPT-37326 Level 3 Mcc 18:44:49 CERTIFIED MEDICAL TECHNICIAN CPT-56955 Level 3 Mcc 18:17:33 CDT CPT-85825 Level 3 Mcc 09:25:33 CDT CPT-82312 Level 3 Mcc 19:11:57 CDT CPT-95406 Level 3 Mcc 09:25:52 CDT CPT-85749 Level 3 Mcc 14:23:59 CDT CPT-97411 Level 3 Mcc 12:09:43 CDT CPT-11873 Level 3 Mcc 09:37:40 CDT CPT-01153 Level 3 Mcc 18:23:02 CDT CPT-72078 Level 3 Mcc 14:09:06 CDT CPT-01496 Level 3 Mcc 12:43:27 CERTIFIED MEDICAL TECHNICIAN CPT-01339 Postop F/U Visit 14:10:15 CERTIFIED MEDICAL TECHNICIAN CPT-53760 [facility] 17:07:14 CERTIFIED MEDICAL TECHNICIAN CPT-03868 Level 3 Mcc 16:14:37 CERTIFIED MEDICAL TECHNICIAN CPT-40330 Port a cath flush 11:47:42 CDT CPT-15504 Port a cath flush 08:29:49 CDT CPT-OV Office Visit 14:27:58 CERTIFIED MEDICAL TECHNICIAN
--- OUTSIDE RECORDS SUMMARY | 2016-08-07 12:46 | XMS REPORT | Clinical Summary ---
Author Author Admin, [place] [facility] Address Unknown Phone Allergies, Adverse Reactions, Alerts Allergy Name Reaction Description Start Date Severity Status Provider PENICILLIN Critical Active [place] Conditions or Problems Problem Name Problem Code Onset Date Status Entry Date Provider Comment Standard Description Annotate DIABETES MELLITUS, TYPE II, CONTROLLED 250.00 Active Jonel Hemphill MD Diabetes mellitus without mention of complication, type II or unspecified type, not stated as uncontrolled MORBID OBESITY 278.01 Active Jonel Hemphill MD Morbid obesity HYPERTENSION 401.1 Active Jonel Hemphill MD Benign essential hypertension 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 USE, SENIOR CARE V58.69 Resolved Jonel Hemphill MD Long-term (current) use of other medications C V A / STROKE 436 Active Gregor Tisha Acute, but ill- defined, cerebrovascular disease C O P D 496 Active [place] Tisha Chronic airway obstruction, not elsewhere classified DIABETES, TYPE 2 250.00 Resolved Jonel Hemphill MD Diabetes mellitus without mention of complication, type II or unspecified type, not stated as uncontrolled SEIZURE DISORDER 780.39 Active Gregor Clare Other convulsions CORONARY HEART DISEASE 414.00 Resolved Jonel Hemphill MD Coronary atherosclerosis of unspecified type of vessel, tetlin or graft FH DIABETES V18.0 Resolved Jonel [...] Coronary atherosclerosis of unspecified type of vessel, tetlin or graft CONSTIPATION 564.00 Resolved Jonel Hemphill [...] Hemphill MD Pain in limb 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 IS UNABLE TO SWALLOW GLUCAGON HCL (RDNA) 10157988718 No Longer Active Tova Perez Active [facility] MILK OF MAGNESIA 1200 MG/15ML SUSP 30 ml daily for constipation MAGNESIUM HYDROXIDE 90069564680 No Longer Active Tova Perez Active IMDUR 120 MG [id number] 1 qd ISOSORBIDE MONONITRATE 99013503858 No Longer Active Tova Chris Active METFORMIN HCL 500 MG TABS 1 tablet by mouth twice daily METFORMIN HCL 27661219857 Active Tova Chris Active SULFAMETHOXAZOLE-TMP DS 800-160 MG TABS 1 TAB PO BID SULFAMETHOXAZOLE-TRIMETHOPRIM 50040309873 Active Tova Chris Active PHENYTOIN 50 MG CHEW 1 TAB PO BID PHENYTOIN 44744686664 Active Tova Perez Active MECLIZINE HCL 25 MG CHEW TAB 1 four times a day as needed for dizziness 02/21 MECLIZINE HCL 12413680588 Active Tova Chris Active GABAPENTIN 300 MG CAPS 1 CAP PO TID GABAPENTIN 01154559533 Active Tova Chris Active NEURONTIN 400 MG CAPS Take one by mouth 3 times daily, morning, afternoon and evening.] GABAPENTIN 94250691077 No Longer Active Tova Chris Active AMBIEN 10 MG TAB 1 tab by mouth at bedtime as needed for sleep ZOLPIDEM TARTRATE 78159109942 Active Jonel Hemphill MD Active POTASSIUM CHLORIDE CHELA ER 20 MEQ CR-TABS 1 tab PO daily POTASSIUM CHLORIDE CHELA CR 18345497060 Active Jonel Hemphill MD Active ANTIVERT 25 MG TABS 1 q 6 hrs prn MECLIZINE HCL 18888674405 No Longer Active Jonel Hemphill MD Active CLONIDINE HCL 0.2 MG TABS 1 q 8 hrs as needed -greater than 160-htn CLONIDINE HCL 36061623331 No Longer Active Jonel Hemphill MD Active AMBIEN 10 MG TABS 1 q hs prn ZOLPIDEM TARTRATE 61789740034 No Longer Active Jonel Hemphill MD Active GNP THERAPEUTIC-M TABS 1 qd MULTIPLE VITAMINS- MINERALS 85139783539 No Longer Active Jonel Hemphill MD Active METOPROLOL TARTRATE 50 MG TABS 1 bid METOPROLOL TARTRATE 11543966248 No Longer Active Jonel Hemphill MD Active METFORMIN HCL 500 MG TABS 1 bod with food METFORMIN HCL 74401747218 No Longer Active Jonel Hemphill MD Active LISINOPRIL 40 MG TABS 1 qd LISINOPRIL 19024462585 No Longer Active Jonel Hemphill MD Active HYDROCHLOROTHIAZIDE 25 MG TABS 1 qd HYDROCHLOROTHIAZIDE 32823845887 No Longer Active Jonel Hemphill MD Active DURAGESIC-25 25 MCG/HR PT72 place 1 patch on the skin q72hrs for pain FENTANYL 75619831860 No Longer Active Jonel Hemphill MD Active FENTANYL 75 MCG/HR PT72 place 1 patch on skin q72hrs fr pain 2012 FENTANYL 29181197106 No Longer Active Jonel Hemphill MD Active LASIX 20 MG TABS 1 tab PO q morning FUROSEMIDE 51821878465 Active Jonel Hemphill MD Active FUROSEMIDE 40 MG TABS 1 q am FUROSEMIDE 68022629084 No Longer Active Jonel Hemphill MD Active HEPARIN (PORCINE) LOCK FLUSH 100 UNIT/ML SOLN Flush port a cath monthly every three week on with Heparin and NS HEPARIN LOCK FLUSH 84432235030 Active Jonel Hemphill MD Active FENTANYL 100 MCG/HR PT72 Apply every 3 days FENTANYL 30903579963 Active Jonel Hemphill MD Active FENTANYL 25 MCG/HR PT72 Apply to clean skin and change every 72 hours. 07/03 FENTANYL 37772971743 No Longer Active Jonel Hemphill MD Active FENTANYL 50 MCG/HR PT72 place 1 patch on skin q72 hours FENTANYL 70352900237 No Longer Active Mayco Shah APRN Active HYDROCODONE-ACETAMINOPHEN 7.5-325 MG TABS 1 q 6 hrs prn HYDROCODONE-ACETAMINOPHEN 45813096615 Active Jonel Hemphill MD Active ATIVAN 0.5 MG TABS Take 1 tablet 2x daily LORAZEPAM 92758248943 Active Jonel Hemphill MD Active CELEXA 20 MG TABS Take 1 tablet 1x daily CITALOPRAM HYDROBROMIDE 78141479731 Active Jonel Hemphill MD Active MIRALAX POWD 17 gms in 4 oz water or juice daily POLYETHYLENE GLYCOL 3350 23765479771 Active Rubin Pierre MD Active DURAGESIC-12 12 MCG/HR PT72 APPLY PATCH TO SKIN AND CHANGE EVERY 72 HOURS, ROTATE SITES FENTANYL 86344793590 No Longer Active Fozia Amador TREYA Active [facility] VITAMIN C 500 MG TABS 1 po daily ASCORBIC ACID 83720789945 Active Mahogany [place] Active FUROSEMIDE 20 MG TABS 1 qd FUROSEMIDE 16248710229 No Longer Active Mahogany [place] Active ADULT ASPIRIN EC LOW STRENGTH 81 MG TBEC 1 qd ASPIRIN 61025005175 Active Gregor Giles Active DILANTIN 100 MG CAPS 3 cap tid PHENYTOIN SODIUM EXTENDED 46251439682 Active [place] Giles Active BUDEPRION SR 150 MG [id number] 1 bid BUPROPION HCL 64398594892 Active Gregor Giles Active ALLOPURINOL 300 MG TABS 1 qd ALLOPURINOL 01721766870 Active Gregor Giles Active COZAAR 100 MG TABS 1 qd LOSARTAN POTASSIUM 92792543899 Active Gregor Giles Active FUROSEMIDE 20 MG TABS 1 qd FUROSEMIDE 20 MG TABS 436026 FUROSEMIDE Inactive DURAGESIC-12 12 MCG/HR PT72 APPLY PATCH TO SKIN AND CHANGE EVERY 72 HOURS, ROTATE SITES DURAGESIC-12 12 MCG/HR PT72 474377 FENTANYL Inactive FENTANYL 50 MCG/HR PT72 place 1 patch on skin q72 hours FENTANYL 50 MCG/HR PT72 371673 FENTANYL Inactive FUROSEMIDE 40 MG TABS 1 q am FUROSEMIDE 40 MG TABS 856387 FUROSEMIDE Inactive FENTANYL 75 MCG/HR PT72 place 1 patch on skin q72hrs fr pain 2012 FENTANYL 75 MCG/HR PT72 045043 FENTANYL Inactive DURAGESIC-25 25 MCG/HR PT72 place 1 patch on the skin q72hrs for pain DURAGESIC-25 25 MCG/HR PT72 130355 FENTANYL Inactive HYDROCHLOROTHIAZIDE 25 MG TABS 1 qd HYDROCHLOROTHIAZIDE 25 MG TABS 860672 HYDROCHLOROTHIAZIDE Inactive LISINOPRIL 40 MG TABS 1 qd LISINOPRIL 40 MG TABS 157142 LISINOPRIL Inactive METFORMIN HCL 500 MG TABS 1 bod with food METFORMIN HCL 500 MG TABS 893074 METFORMIN HCL Inactive METOPROLOL TARTRATE 50 MG TABS 1 bid METOPROLOL TARTRATE 50 MG TABS 945382 METOPROLOL TARTRATE Inactive GNP THERAPEUTIC-M TABS 1 qd GNP THERAPEUTIC-M TABS MULTIPLE VITAMINS-MINERALS Inactive AMBIEN 10 MG TABS 1 q hs prn AMBIEN 10 MG TABS 744278 ZOLPIDEM TARTRATE Inactive CLONIDINE HCL 0.2 MG TABS 1 q 8 hrs as needed -greater than 160-htn CLONIDINE HCL 0.2 MG TABS 591113 CLONIDINE HCL Inactive ANTIVERT 25 MG TABS 1 q 6 hrs prn ANTIVERT 25 MG TABS MECLIZINE HCL Inactive NEURONTIN 400 MG CAPS Take one by mouth 3 times daily, morning, afternoon and evening.] NEURONTIN 400 MG CAPS 305097 GABAPENTIN Inactive IMDUR 120 MG [id number] 1 qd IMDUR 120 MG AN06Z-SUE ISOSORBIDE MONONITRATE Inactive [facility] MILK OF MAGNESIA [...] for arthritis pain MOBIC 15 MG TABS 516952 MELOXICAM Inactive LEVEMIR 100 UNIT/ML SOLN 5 units sub-q at bedtime LEVEMIR 100 UNIT/ML SOLN INSULIN DETEMIR Inactive FENTANYL 25 MCG/HR PT72 Apply to clean skin and change every 72 hours. 07/03 FENTANYL 25 MCG/HR PT72 150590 FENTANYL Inactive Advance Directives Directive Description Start [...] Panel - Chemistry sodium, serum 137 mmol/L 032-189 6244/06/14 potassium, serum 7.1 mmol/L 3.5-5.2 chloride, serum 107 mmol/L 98-107 carbon dioxide, venous blood 18.7 mmol/L 21.0-32.0 blood glucose 153 mg/dL 65-110 calcium, serum 8.8 mg/dL 8.5-10.1 urea nitrogen, blood 82 mg/dL 7-18 creatinine, serum 2.50 mg/dL 0.60-1.30 sodium, serum 141 mmol/L 215-529 9056/07/01 potassium, serum 3.4 mmol/L 3.5-5.2 chloride, serum 104 mmol/L 98-107 carbon dioxide, venous blood 27.3 mmol/L 21.0-32.0 blood glucose 101 mg/dL 65-110 calcium, serum 8.9 mg/dL 8.5-10.1 urea nitrogen, blood 15 mg/dL 7-18 creatinine, serum 1.10 mg/dL 0.60-1.30 sodium, serum 140 mmol/L 734-505 7304/05/31 potassium, serum 5.5 mmol/L 3.5-5.2 chloride, serum 108 mmol/L 98-107 carbon dioxide, venous blood 22.8 mmol/L 21.0-32.0 blood glucose 88 mg/dL 65-110 calcium, serum 9.1 mg/dL 8.5-10.1 urea nitrogen, blood 47 mg/dL 7-18 creatinine, serum 1.70 mg/dL 0.60-1.30 sodium, serum 137 mmol/L 958-347 7807/06/05 potassium, serum 6.5 mmol/L 3.5-5.2 chloride, serum [...] Panel - Chemistry sodium, serum 138 mmol/L 379-817 6927/05/24 potassium, serum 6.9 mmol/L 3.5-5.2 chloride, serum [...] RBC, urine, dipstick Negative Negative sodium, serum 142 mmol/L 896-393 7401/07/15 potassium, serum 3.9 mmol/L 3.5-5.2 chloride, serum [...] % of total hemoglobin 4.8 % 4.3-6.0 albumin/creatinine ratio, urine 30 - 300 mg/g [...] UADIP W/MICRO, AUTO, MAY ... - Urinalysis urine color Yellow Colorless;Lightyellow;Straw;Yellow appearance, urine Clear Clear specific gravity, urine 1.020 1.000-1.030 pH, urine, semiquantitative 5.5 5.0-8.5 urobilinogen, urine, semiquantitative (dipstick) 0.2 Normal leukocyte esterase, urine, by dipstick Negative Negative nitrite, urine, semiquantitative Negative Negative glucose, urine, semiquantitative Negative Negative ketones, urine, by test strip Negative Negative bilirubin, urine Negative Negative Lab Report: CBC, Comp. Metabolic Panel, Uric Acid - Chemistry sodium, serum 141 mmol/L 585-389 7533/05/09 potassium, serum 3.9 mmol/L 3.5-5.2 chloride, serum [...] dipstick Negative Negative sodium, serum 140 mmol/L 949-718 0330/02/18 potassium, serum 3.8 mmol/L 3.5-5.2 chloride, serum [...] Acid - Chemistry sodium, serum 141 mmol/L 402-508 7154/06/11 potassium, serum 5.9 mmol/L 3.5-5.2 chloride, serum [...] 10.0-20.0 Encounters Code Encounter Date Provider Facility CPT-67578 Level 3 Est. Patient 17:18:03 CDT Jonel Hemphill MD [facility] CPT-37838 Level 3 Est. 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 Patient 18:03:14 CDT Jonel Yeager [facility]-84315 Level 4 Est. Patient 13:24:53 CDT Jonel Yeager [facility]-47039 Level 4 Est. Patient 09:15:44 CDT Jonel Yeager [facility]-07109 Level 4 Est. Patient 19:16:01 CDT Jonel Yeager [facility] CPT-09248 Level 4 Est. Patient 11:25:16 CDT Jonel Hemphill MD [facility] CPT-63651 Level 4 Est. Patient 09:00:40 CDT Jonel Hemphill MD [facility] CPT-02558 Level 4 Est. Patient 14:53:58 CDT Jonel Hemphill MD [facility] CPT-72814 Level 4 Est. Patient 22:59:01 CDT Jonel Hemphill MD [facility]-50716 Level 4 Est. Patient 09:29:57 CDT Jonel Hemphill MD [facility]-03774 Level 4 Est. Patient 12:35:53 JOINTER MACHINE OPERATOR Jonel Hemphill MD [facility]-71173 Level 4 Est. Patient 22:36:09 JOINTER MACHINE OPERATOR Jonel Hemphill MD [facility]-09650 Level 2 Est. Patient 15:14:15 JOINTER MACHINE OPERATOR Mayco Shah APRN [facility] CPT-59124 Level 4 Est. Patient 10:36:22 JOINTER MACHINE OPERATOR Jonel Hemphill MD [facility] CPT-77344 Level 4 Est. Patient 22:01:13 JOINTER MACHINE OPERATOR Jonel Hemphill MD [facility]-55262 Level 3 Est. Patient 21:50:37 JOINTER MACHINE OPERATOR Jonel Hemphill MD [facility] CPT-77088 Level 4 Est. Patient 15:02:43 CDT Rubin Pierre MD [facility] CPT-41268 Level 4 Est. Patient 14:27:35 CDT Jonel Hemphill MD [facility]-59668 Level 4 Est. Patient 12:41:17 CDT Jonel Hemphill MD [facility]-86820 Level 4 Est. Patient 16:18:55 CDT Jonel Hemphill MD [facility]-66569 Level 4 Est. Patient 17:58:05 CDT Jonel Hemphill MD [facility]-65026 Level 4 Est. Patient 22:10:06 CDT Jonel Hemphill MD [facility] CPT-54743 Level 4 Est. Patient 13:22:09 CDT Jonel Hemphill MD [facility] CPT-81979 Level 4 Est. Patient 22:52:17 JOINTER MACHINE OPERATOR Jonel Hemphill MD [facility] CPT-45956 Level 3 Est. Patient 22:34:10 JOINTER MACHINE OPERATOR Jonel Hemphill MD [facility] CPT-97826 Level 4 Est. Patient 07:49:20 JOINTER MACHINE OPERATOR Jonel Hemphill MD [facility] Skilled CPT-60988 Level 3 Est. Patient 08:28:27 JOINTER MACHINE OPERATOR Jonel Hemphill MD [facility] Procedures Code Procedure Name Date Entry Date Standard Description CPT-78090 Level 3 [facility] 09:37:40 CDT CPT-65747 Level 3 [facility] 18:23:02 CDT CPT-66598 Level 3 [facility] 14:09:06 CDT CPT-29593 Level 3 [facility] 12:43:27 JOINTER MACHINE OPERATOR CPT-62594 Postop F/U Visit 14:10:15 JOINTER MACHINE OPERATOR CPT-31093 [facility] 17:07:14 JOINTER MACHINE OPERATOR CPT-11356 Level 3 [facility] 16:14:37 JOINTER MACHINE OPERATOR CPT-96296 Port a cath flush 11:47:42 CDT CPT-21623 Port a cath flush 08:29:49 CDT CPT-OV Office Visit 14:27:58 JOINTER MACHINE OPERATOR
--- OUTSIDE RECORDS SUMMARY | 2016-08-07 12:48 | XMS REPORT | Clinical Summary ---
Author Author Admin, [email or web address] Organization [facility] Address Unknown Phone Allergies, Adverse Reactions, Alerts Allergy Name Reaction Description Start Date Severity Status Provider PENICILLIN Critical Active [place] Conditions or Problems Problem Name Problem Code [...] C V A / STROKE 436 Active [place] Acute, but ill- defined, cerebrovascular disease C O P D 496 Active [place] Chronic airway obstruction, not elsewhere classified DIABETES, TYPE 2 250.00 Resolved Jonel Hemphill MD Diabetes mellitus without mention of complication, type II or unspecified type, not stated as uncontrolled SEIZURE DISORDER 780.39 Active [place] Other convulsions CORONARY HEART DISEASE 414.00 Resolved Jonel Hemphill MD Coronary atherosclerosis of unspecified type of vessel, upper mattaponi or graft FH DIABETES V18.0 Resolved Jonel [...] Coronary atherosclerosis of unspecified type of vessel, upper matt[place]oni or graft CONSTIPATION 564.00 Resolved Jonel Hemphill [...] MD Dermatophytosis of the body 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 USE, SENIOR CARE ICD-V58.69 Inactive Jonel Hemphill MD CORONARY HEART [...] 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 Inactive Jonel Hemphill MD DIABETES, TYPE 2 ICD-250.00 Inactive Jonel Hemphill MD LOOSE STOOLS ICD-787.91 [...] TAB Q 6 HRS PRN HYDROCODONE- ACETAMINOPHEN 21221625731 Active Jonel Hemphill MD Active LEVEMIR 100 UNIT/ML SOLN 5 units sub-q at bedtime INSULIN DETEMIR 58816284188 No Longer Active Tova Perez Active MOBIC 15 MG TABS 1 tab PO daily for arthritis pain MELOXICAM 36648746600 No Longer Active Tova Perez Active GLUCAGEN 1 MG SOLR INJECT 1MG IM IF BS LESS THAN 60 & RES. IS UNABLE TO SWALLOW GLUCAGON HCL (RDNA) 71322479089 No Longer Active Tova Perez Active [facility] MILK OF MAGNESIA 1200 MG/15ML SUSP 30 ml daily for constipation MAGNESIUM HYDROXIDE 32451159883 No Longer Active Tova Perez Active IMDUR 120 MG [id number] 1 qd ISOSORBIDE MONONITRATE 02046974010 No Longer Active Tova Perez Active METFORMIN HCL 500 MG TABS 1 tablet by mouth twice daily METFORMIN HCL 34133177222 Active Tova Perez Active SULFAMETHOXAZOLE-TMP DS 800-160 MG TABS 1 TAB PO BID SULFAMETHOXAZOLE-TRIMETHOPRIM 55007248428 Active Tova Perez Active PHENYTOIN 50 MG CHEW 1 TAB PO BID PHENYTOIN 11651243269 Active Tova Perez Active MECLIZINE HCL 25 MG CHEW TAB 1 four times a day as needed for dizziness 02/21 MECLIZINE HCL 12757233347 Active Tova Perez Active GABAPENTIN 300 MG CAPS 1 CAP PO TID GABAPENTIN 76587199671 Active Tova Perez Active NEURONTIN 400 MG CAPS Take one by mouth 3 times daily, morning, afternoon and evening.] GABAPENTIN 03947931382 No Longer Active Tova Perez Active AMBIEN 10 MG TAB 1 tab by mouth at bedtime as needed for sleep ZOLPIDEM TARTRATE 80688669789 Active Jonel Hemphill MD Active POTASSIUM CHLORIDE CHELA ER 20 MEQ CR-TABS 1 tab PO daily POTASSIUM CHLORIDE CHELA CR 57328614530 Active Jonel Hemphill MD Active ANTIVERT 25 MG TABS 1 q 6 hrs prn MECLIZINE HCL 79703015770 No Longer Active Jonel Hemphill MD Active CLONIDINE HCL 0.2 MG TABS 1 q 8 hrs as needed -greater than 160-htn CLONIDINE HCL 54347168648 No Longer Active Jonel Hemphill MD Active AMBIEN 10 MG TABS 1 q hs prn ZOLPIDEM TARTRATE 81999436860 No Longer Active Jonel Hemphill MD Active GNP THERAPEUTIC-M TABS 1 qd MULTIPLE VITAMINS- MINERALS 56416531232 No Longer Active Jonel Hemphill MD Active METOPROLOL TARTRATE 50 MG TABS 1 bid METOPROLOL TARTRATE 35021073750 No Longer Active Jonel Hemphill MD Active METFORMIN HCL 500 MG TABS 1 bod with food METFORMIN HCL 70634178649 No Longer Active Jonel Hemphill MD Active LISINOPRIL 40 MG TABS 1 qd LISINOPRIL 58695540118 No Longer Active Jonel Hemphill MD Active HYDROCHLOROTHIAZIDE 25 MG TABS 1 qd HYDROCHLOROTHIAZIDE 66630557087 No Longer Active Jonel Hemphill MD Active DURAGESIC-25 25 MCG/HR PT72 place 1 patch on the skin q72hrs for pain FENTANYL 01727560315 No Longer Active Jonel Hemphill MD Active FENTANYL 75 MCG/HR PT72 place 1 patch on skin q72hrs fr pain 2012 FENTANYL 76948018725 No Longer Active Jonel Hemphill MD Active LASIX 20 MG TABS 1 tab PO q morning FUROSEMIDE 39268626299 Active Jonel Hemphill MD Active FUROSEMIDE 40 MG TABS 1 q am FUROSEMIDE 26724291329 No Longer Active Jonel Hemphill MD Active HEPARIN (PORCINE) LOCK FLUSH 100 UNIT/ML SOLN Flush port a cath monthly every three week on with Heparin and NS HEPARIN LOCK FLUSH 29294669447 Active Jonel Hemphill MD Active FENTANYL 100 MCG/HR PT72 Apply every 3 days FENTANYL 80018060481 Active Jonel eHmphill MD Active FENTANYL 25 MCG/HR PT72 Apply to clean skin and change every 72 hours. 07/03 FENTANYL 39148897937 No Longer Active Jonel Hemphill MD Active FENTANYL 50 MCG/HR PT72 place 1 patch on skin q72 hours FENTANYL 84348728265 No Longer Active aMyco Shah APRN Active HYDROCODONE-ACETAMINOPHEN 7.5-325 MG TABS 1 q 6 hrs prn HYDROCODONE-ACETAMINOPHEN 56352801150 Active Jonel Hemphill MD Active ATIVAN 0.5 MG TABS Take 1 tablet 2x daily LORAZEPAM 67088563416 Active Jonel Hemphill MD Active CELEXA 20 MG TABS Take 1 tablet 1x daily CITALOPRAM HYDROBROMIDE 25150705413 Active Jonel Hemphill MD Active MIRALAX POWD 17 gms in 4 oz water or juice daily POLYETHYLENE GLYCOL 3350 03716632913 Active Rubin Pierre MD Active DURAGESIC-12 12 MCG/HR PT72 APPLY PATCH TO SKIN AND CHANGE EVERY 72 HOURS, ROTATE SITES FENTANYL 19500837721 No Longer Active Fozia YANGA Active [facility] VITAMIN C 500 MG TABS 1 po daily ASCORBIC ACID 42782853176 Active Mahogany Lejunior Active FUROSEMIDE 20 MG TABS 1 qd FUROSEMIDE 11588141815 No Longer Active Mahogany Lejunior Active ADULT ASPIRIN EC LOW STRENGTH 81 MG TBEC 1 qd ASPIRIN 93213370179 Active Gregor Tisha Active DILANTIN 100 MG CAPS 3 cap tid PHENYTOIN SODIUM EXTENDED 39765014193 Active [place] Active BUDEPRION SR 150 MG [id number] 1 bid BUPROPION HCL 48549521292 Active Gregor Tisha Active ALLOPURINOL 300 MG TABS 1 qd ALLOPURINOL 28001101855 Active [place] Active COZAAR 100 MG TABS 1 qd LOSARTAN POTASSIUM 57516735524 Active Gregor Tisha Active FUROSEMIDE 20 MG TABS 1 qd FUROSEMIDE 20 MG TABS 733713 FUROSEMIDE Inactive DURAGESIC-12 12 MCG/HR PT72 APPLY PATCH TO SKIN AND CHANGE EVERY 72 HOURS, ROTATE SITES DURAGESIC-12 12 MCG/HR PT72 231061 FENTANYL Inactive FENTANYL 50 MCG/HR PT72 place 1 patch on skin q72 hours FENTANYL 50 MCG/HR PT72 044049 FENTANYL Inactive FUROSEMIDE 40 MG TABS 1 q am FUROSEMIDE 40 MG TABS 815855 FUROSEMIDE Inactive FENTANYL 75 MCG/HR PT72 place 1 patch on skin q72hrs fr pain 2012 FENTANYL 75 MCG/HR PT72 317039 FENTANYL Inactive DURAGESIC-25 25 MCG/HR PT72 place 1 patch on the skin q72hrs for pain DURAGESIC-25 25 MCG/HR PT72 712514 FENTANYL Inactive HYDROCHLOROTHIAZIDE 25 MG TABS 1 qd HYDROCHLOROTHIAZIDE 25 MG TABS 539044 HYDROCHLOROTHIAZIDE Inactive LISINOPRIL 40 MG TABS 1 qd LISINOPRIL 40 MG TABS 713896 LISINOPRIL Inactive METFORMIN HCL 500 MG TABS 1 bod with food METFORMIN HCL 500 MG TABS 396477 METFORMIN HCL Inactive METOPROLOL TARTRATE 50 MG TABS 1 bid METOPROLOL TARTRATE 50 MG TABS 781587 METOPROLOL TARTRATE Inactive GNP THERAPEUTIC-M TABS 1 qd GNP THERAPEUTIC-M TABS MULTIPLE VITAMINS-MINERALS Inactive AMBIEN 10 MG TABS 1 q hs prn AMBIEN 10 MG TABS 406815 ZOLPIDEM TARTRATE Inactive CLONIDINE HCL 0.2 MG TABS 1 q 8 hrs as needed -greater than 160-htn CLONIDINE HCL 0.2 MG TABS 522227 CLONIDINE HCL Inactive ANTIVERT 25 MG TABS 1 q 6 hrs prn ANTIVERT 25 MG TABS MECLIZINE HCL Inactive NEURONTIN 400 MG CAPS Take one by mouth 3 times daily, morning, afternoon and evening.] NEURONTIN 400 MG CAPS 180586 GABAPENTIN Inactive IMDUR 120 MG [id number] 1 qd IMDUR 120 MG [id number] ISOSORBIDE MONONITRATE Inactive [facility] MILK OF MAGNESIA [...] for arthritis pain MOBIC 15 MG TABS 406926 MELOXICAM Inactive LEVEMIR 100 UNIT/ML SOLN 5 units sub-q at bedtime LEVEMIR 100 UNIT/ML SOLN INSULIN DETEMIR Inactive FENTANYL 25 MCG/HR PT72 Apply to clean skin and change every 72 hours. 07/03 FENTANYL 25 MCG/HR PT72 840702 FENTANYL Inactive Advance Directives Directive Description Start [...] pressure, diastolic - 8462-4 75 mm[Hg] BP augusitn blood pressure, systolic - 8480-6 148 mm[Hg] [...] Panel - Chemistry sodium, serum 137 mmol/L 440-450 7913/06/14 potassium, serum 7.1 mmol/L 3.5-5.2 chloride, serum 107 mmol/L 98-107 carbon dioxide, venous blood 18.7 mmol/L 21.0-32.0 blood glucose 153 mg/dL 65-110 calcium, serum 8.8 mg/dL 8.5-10.1 urea nitrogen, blood 82 mg/dL 7-18 creatinine, serum 2.50 mg/dL 0.60-1.30 sodium, serum 140 mmol/L 280-756 3202/05/31 potassium, serum 5.5 mmol/L 3.5-5.2 chloride, serum 108 mmol/L 98-107 carbon dioxide, venous blood 22.8 mmol/L 21.0-32.0 blood glucose 88 mg/dL 65-110 calcium, serum 9.1 mg/dL 8.5-10.1 urea nitrogen, blood 47 mg/dL 7-18 creatinine, serum 1.70 mg/dL 0.60-1.30 sodium, serum 137 mmol/L 013-682 0927/06/05 potassium, serum 6.5 mmol/L 3.5-5.2 chloride, serum 105 mmol/L 98-107 carbon dioxide, venous blood 22.0 mmol/L 21.0-32.0 blood glucose 132 mg/dL 65-110 calcium, serum 8.7 mg/dL 8.5-10.1 urea nitrogen, blood 71 mg/dL 7-18 creatinine, serum 2.10 mg/dL 0.60-1.30 sodium, serum 141 mmol/L 226-240 2284/07/01 potassium, serum 3.4 mmol/L 3.5-5.2 chloride, serum [...] Negative mg/dL Negative sodium, serum 142 mmol/L 508-145 0759/07/15 potassium, serum 3.9 mmol/L 3.5-5.2 chloride, serum [...] Comp. Metabolic Panel, HGBA1C, UADIP W/MICRO, AUTO, AMY ... - Hematology leukocyte count, blood 6.2 [...] Acid - Chemistry sodium, serum 141 mmol/L 827-218 3369/05/09 potassium, serum 3.9 mmol/L 3.5-5.2 chloride, serum [...] AUTO - Chemistry sodium, serum 140 mmol/L 238-795 3066/02/18 potassium, serum 3.8 mmol/L 3.5-5.2 chloride, serum [...] Acid - Chemistry sodium, serum 141 mmol/L 941-632 3625/06/11 potassium, serum 5.9 mmol/L 3.5-5.2 chloride, serum [...] 10.0-20.0 Encounters Code Encounter Date Provider Facility CPT-92052 Level 3 Est. Patient 17:18:03 CDT Jonel Hemphill MD [facility] CPT-28087 Level 3 Est. Patient 21:58:03 [employer] Jonel Hemphill MD [facility] CPT-68914 Level 4 Est. Patient 18:03:14 CDT Jonel Yeager [facility]-62801 Level 4 Est. Patient 13:24:53 CDT [facility]-04511 Level 4 Est. Patient 09:15:44 CDT [facility]-24979 Level 4 Est. Patient 19:16:01 CDT Jonel Yeager [facility] CPT-90486 Level 4 Est. Patient 11:25:16 CDT Jonel Hemphill MD [facility] CPT-24552 Level 4 Est. Patient 09:00:40 CDT Jonel Yeagre [facility]-33707 Level 4 Est. Patient 14:53:58 CDT Jonel Hemphill MD [facility] CPT-86253 Level 4 Est. Patient 22:59:01 CDT Jonel Hemphill MD [facility]-52635 Level 4 Est. Patient 09:29:57 CDT Jonel Hemphill MD [facility]-50322 Level 4 Est. Patient 12:35:53 [employer] Jonel Hemphill MD [facility]-09784 Level 4 Est. Patient 22:36:09 [employer] Jonel Hemphill MD [facility]-72610 Level 2 Est. Patient 15:14:15 [employer] Mayco Shah APRN [facility] CPT-44081 Level 4 Est. Patient 10:36:22 [employer] Jonel Hemphill MD [facility] CPT-91516 Level 4 Est. Patient 22:01:13 [employer] Jonel Hemphill MD [facility]-43540 Level 3 Est. Patient 21:50:37 [employer] Jonel Hemphill MD [facility] CPT-25324 Level 4 Est. Patient 15:02:43 CDT Rubin Pierre MD [facility] CPT-68600 Level 4 Est. Patient 14:27:35 CDT Jonel Hemphill MD [facility]-88740 Level 4 Est. Patient 12:41:17 CDT Jonel Hemphill MD [facility]-06118 Level 4 Est. Patient 16:18:55 CDT Jonel Hemphill MD [facility]-72503 Level 4 Est. Patient 17:58:05 CDT Jonel Hemphill MD [facility]-63265 Level 4 Est. Patient 22:10:06 CDT Jonel Hemphill MD [facility]-66442 Level 4 Est. Patient 13:22:09 CDT Jonel Hemphill MD [facility]-80956 Level 4 Est. Patient 22:52:17 [employer] Jonel Hemphill MD [facility]-66449 Level 3 Est. Patient 22:34:10 [employer] Jonel Hemphill MD [facility] CPT-38543 Level 4 Est. Patient 07:49:20 [employer] Jonel Hemphill MD [facility] Skilled CPT-74175 Level 3 Est. Patient 08:28:27 [employer] Jonel Hemphill MD [facility] Procedures Code Procedure Name Date Entry Date Standard Description CPT-64144 Level 3 Longterm 12:09:43 CDT CPT-60084 Level 3 Longterm 09:37:40 CDT CPT-25549 Level 3 Longterm 18:23:02 CDT CPT-30530 Level 3 Longterm 14:09:06 CDT CPT-18453 Level 3 Longterm 12:43:27 [employer] CPT-84843 Postop F/U Visit 14:10:15 [employer] CPT-31327 [facility] 17:07:14 [employer] CPT-94961 Level 3 Longterm 16:14:37 [employer] CPT-95195 Port a cath flush 11:47:42 CDT CPT-47784 Port a cath flush 08:29:49 CDT CPT-OV Office Visit 14:27:58 [employer]
--- OUTSIDE RECORDS SUMMARY | 2016-08-07 12:49 | XMS REPORT | Clinical Summary ---
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 Jonel Hemphill MD Long-term [...] Coronary atherosclerosis of unspecified type of vessel, quileute or graft FH DIABETES V18.0 Resolved Jonel [...] Coronary atherosclerosis of unspecified type of vessel, quileute or graft CONSTIPATION 564.00 Resolved Jonel Hemphill [...] Hemphill MD FH DIABETES ICD-V18.0 Inactive Jonel Hmephill MD FH STROKE ICD-V17.1 Inactive Jonel Hemphill [...] TIMES DAILY FOR SEIZURES PHENYTOIN SODIUM EXTENDED 61664377911 Active Marleni Romero Active CPAP APPLY AT HS CPAP Active Jonel Hemphill MD Active METOPROLOL TARTRATE 50 MG ORAL TABS 1 TAB BY MOUTH TWICE DAILY METOPROLOL TARTRATE 19504312782 Active Jonel Hemphill MD Active LISINOPRIL 40 MG TABS 1 tablet by mouth twice daily, for blood pressure 03/31 LISINOPRIL 45537882945 Active Jonel Hemphill MD Active BUPROPION HCL ER (SR) 150 MG [id number] 1 twice a day for depression BUPROPION HCL 89626446663 Active Jonel Hemphill MD Active MULTIVITAMINS CAPS 1 DAILY MULTIPLE VITAMIN 19766279361 Active Jonel Hemphill MD Active ZYLOPRIM 300 MG TAB 1 BY MOUTH DAILY ALLOPURINOL 46521869430 Active Jonel Hemphill MD Active HYDROCODONE-ACETAMINOPHEN 7.5-325 MG TABS 1 q 6 hrs prn HYDROCODONE-ACETAMINOPHEN 01004524908 No Longer Active Jonel Hemphill MD Active DILANTIN 100 MG CAPS 3 cap tid PHENYTOIN SODIUM EXTENDED 73060407276 No Longer Active Jonel Hemphill MD Active BUDEPRION SR 150 MG [id number] 1 bid BUPROPION HCL 61457524203 No Longer Active Jonel Hemphill MD Active ALLOPURINOL 300 MG TABS 1 qd ALLOPURINOL 14769708239 No Longer Active Jonel Hemphill MD Active COZAAR 100 MG TABS 1 qd LOSARTAN POTASSIUM 88301527574 No Longer Active Jonel Hemphill MD Active CVS VITAMIN C 500 MG TABS 1 po daily ASCORBIC ACID 05788945903 No Longer Active Jonel Hemphill MD Active MIRALAX POWD 17 gms in 4 oz water or juice daily POLYETHYLENE GLYCOL 3350 94130919423 No Longer Active Jonel Hemphill MD Active POTASSIUM CHLORIDE CHELA ER 20 MEQ CR-TABS 1 tab PO daily POTASSIUM CHLORIDE CHELA CR 77746649517 No Longer Active Jonel Hemphill MD Active AMBIEN 10 MG TAB 1 tab by mouth at bedtime as needed for sleep ZOLPIDEM TARTRATE 95866965193 No Longer Active Jonel Hemphill MD Active SULFAMETHOXAZOLE-TMP DS 800-160 MG TABS 1 TAB PO BID SULFAMETHOXAZOLE-TRIMETHOPRIM 66858900578 No Longer Active Jonel Hemphill MD Active NORCO 5-325 MG TABS 1-2 TAB Q 6 HRS PRN HYDROCODONE- ACETAMINOPHEN 74674647286 Active Jonel Hemphill MD Active LEVEMIR 100 UNIT/ML SOLN 5 units sub-q at bedtime INSULIN DETEMIR 97072445392 No Longer Active Tova Perez Active MOBIC 15 MG TABS 1 tab PO daily for arthritis pain MELOXICAM 90231020389 No Longer Active Tova Chris Active GLUCAGEN 1 MG SOLR INJECT 1MG IM IF BS LESS THAN 60 & RES. IS UNABLE TO SWALLOW GLUCAGON HCL (RDNA) 88579015783 No Longer Active Tova Chris Active [facility]S MILK OF MAGNESIA 1200 MG/15ML SUSP 30 ml daily for constipation MAGNESIUM HYDROXIDE 09544425242 No Longer Active Tova Chris Active IMDUR 120 MG [id number] 1 qd ISOSORBIDE MONONITRATE 09801528123 No Longer Active Tova Chris Active METFORMIN HCL 500 MG TABS 1 tablet by mouth twice daily METFORMIN HCL 32611358477 Active Tova Chris Active PHENYTOIN 50 MG CHEW 1 TAB PO BID PHENYTOIN 21428932998 Active Tova Chris Active MECLIZINE HCL 25 MG CHEW TAB 1 four times a day as needed for dizziness 02/21 MECLIZINE HCL 37806911878 Active Tova Perez Active GABAPENTIN 300 MG CAPS 1 CAP PO TID GABAPENTIN 07139703125 Active Tova Perez Active NEURONTIN 400 MG CAPS Take one by mouth 3 times daily, morning, afternoon and evening.] GABAPENTIN 62065544622 No Longer Active Tova Perez Active ANTIVERT 25 MG TABS 1 q 6 hrs prn MECLIZINE HCL 86076567766 No Longer Active Jonel Hemphill MD Active CLONIDINE HCL 0.2 MG TABS 1 q 8 hrs as needed -greater than 160-htn CLONIDINE HCL 31273664318 No Longer Active Jonel Hemphill MD Active AMBIEN 10 MG TABS 1 q hs prn ZOLPIDEM TARTRATE 82665590756 No Longer Active Jonel Hemphill MD Active GNP THERAPEUTIC-M TABS 1 qd MULTIPLE VITAMINS- MINERALS 52326508678 No Longer Active Jonel Hemphill MD Active METOPROLOL TARTRATE 50 MG TABS 1 bid METOPROLOL TARTRATE 00262567196 No Longer Active Jonel Hemphill MD Active METFORMIN HCL 500 MG TABS 1 bod with food METFORMIN HCL 60475903895 No Longer Active Jonel Hemphill MD Active LISINOPRIL 40 MG TABS 1 qd LISINOPRIL 81721926208 No Longer Active Jonel Hemphill MD Active HYDROCHLOROTHIAZIDE 25 MG TABS 1 qd HYDROCHLOROTHIAZIDE 42712335410 No Longer Active Jonel Hemphill MD Active DURAGESIC-25 25 MCG/HR PT72 place 1 patch on the skin q72hrs for pain FENTANYL 00895755364 No Longer Active Jonel Hemphill MD Active FENTANYL 75 MCG/HR PT72 place 1 patch on skin q72hrs fr pain 2012 FENTANYL 67211130318 No Longer Active Jonel Hemphill MD Active LASIX 20 MG TABS 1 tab PO q morning FUROSEMIDE 10828044442 Active Jonel Hemphill MD Active FUROSEMIDE 40 MG TABS 1 q am FUROSEMIDE 36530173294 No Longer Active Jonel Hemphill MD Active HEPARIN (PORCINE) LOCK FLUSH 100 UNIT/ML SOLN Flush port a cath monthly every three week on with Heparin and NS HEPARIN LOCK FLUSH 52991685968 Active Jonel Hemphill MD Active FENTANYL 100 MCG/HR PT72 Apply every 3 days FENTANYL 61188710668 Active Pepe Perez MD Active FENTANYL 25 MCG/HR PT72 Apply to clean skin and change every 72 hours. 07/03 FENTANYL 34944271436 No Longer Active Jonel Hemphill MD Active FENTANYL 50 MCG/HR PT72 place 1 patch on skin q72 hours FENTANYL 53770605572 No Longer Active Mayco Shah APRN Active ATIVAN 0.5 MG TABS Take 1 tablet 2x daily LORAZEPAM 60286487462 Active Jonel Hemphill MD Active CELEXA 20 MG TABS Take 1 tablet 1x daily CITALOPRAM HYDROBROMIDE 35832536271 Active Jonel Hemphill MD Active DURAGESIC-12 12 MCG/HR PT72 APPLY PATCH TO SKIN AND CHANGE EVERY 72 HOURS, ROTATE SITES FENTANYL 93406555420 No Longer Active Fozia HERNANDEZ Active FUROSEMIDE 20 MG TABS 1 qd FUROSEMIDE 28471729366 No Longer Active Mahogany Bolivar Active ADULT ASPIRIN EC LOW STRENGTH 81 MG TBEC 1 qd ASPIRIN 68524022081 Active MARY Perez Active FUROSEMIDE 20 MG TABS 1 qd FUROSEMIDE 20 MG TABS 738258 FUROSEMIDE Inactive DURAGESIC-12 12 MCG/HR PT72 APPLY PATCH TO SKIN AND CHANGE EVERY 72 HOURS, ROTATE SITES DURAGESIC-12 12 MCG/HR PT72 859030 FENTANYL Inactive FENTANYL 50 MCG/HR PT72 place 1 patch on skin q72 hours FENTANYL 50 MCG/HR PT72 009871 FENTANYL Inactive FUROSEMIDE 40 MG TABS 1 q am FUROSEMIDE 40 MG TABS 894158 FUROSEMIDE Inactive FENTANYL 75 MCG/HR PT72 place 1 patch on skin q72hrs fr pain 2012 FENTANYL 75 MCG/HR PT72 360162 FENTANYL Inactive DURAGESIC-25 25 MCG/HR PT72 place 1 patch on the skin q72hrs for pain DURAGESIC-25 25 MCG/HR PT72 027997 FENTANYL Inactive HYDROCHLOROTHIAZIDE 25 MG TABS 1 qd HYDROCHLOROTHIAZIDE 25 MG TABS 492430 HYDROCHLOROTHIAZIDE Inactive LISINOPRIL 40 MG TABS 1 qd LISINOPRIL 40 MG TABS 172384 LISINOPRIL Inactive METFORMIN HCL 500 MG TABS 1 bod with food METFORMIN HCL 500 MG TABS 905128 METFORMIN HCL Inactive METOPROLOL TARTRATE 50 MG TABS 1 bid METOPROLOL TARTRATE 50 MG TABS 660111 METOPROLOL TARTRATE Inactive GNP THERAPEUTIC-M TABS 1 qd GNP THERAPEUTIC-M TABS MULTIPLE VITAMINS-MINERALS Inactive AMBIEN 10 MG TABS 1 q hs prn AMBIEN 10 MG TABS 861105 ZOLPIDEM TARTRATE Inactive CLONIDINE HCL 0.2 MG TABS 1 q 8 hrs as needed -greater than 160-htn CLONIDINE HCL 0.2 MG TABS 305883 CLONIDINE HCL Inactive ANTIVERT 25 MG TABS 1 q 6 hrs prn ANTIVERT 25 MG TABS MECLIZINE HCL Inactive NEURONTIN 400 MG CAPS Take one by mouth 3 times daily, morning, afternoon and evening.] NEURONTIN 400 MG CAPS 403504 GABAPENTIN Inactive IMDUR 120 MG [id number] 1 qd IMDUR 120 MG [id number] ISOSORBIDE MONONITRATE Inactive CVS MILK OF MAGNESIA [...] for arthritis pain MOBIC 15 MG TABS 720133 MELOXICAM Inactive LEVEMIR 100 UNIT/ML SOLN 5 units sub-q at bedtime LEVEMIR 100 UNIT/ML SOLN INSULIN DETEMIR Inactive SULFAMETHOXAZOLE-TMP DS 800-160 MG TABS 1 TAB PO BID SULFAMETHOXAZOLE-TMP DS 800-160 MG TABS SULFAMETHOXAZOLE-TRIMETHOPRIM Inactive AMBIEN 10 MG TAB 1 tab by mouth at bedtime as needed for sleep AMBIEN 10 MG TAB 716017 ZOLPIDEM TARTRATE Inactive POTASSIUM CHLORIDE CHELA ER 20 MEQ CR-TABS 1 tab PO daily POTASSIUM CHLORIDE CHELA ER 20 MEQ CR-TABS POTASSIUM CHLORIDE CHELA CR Inactive MIRALAX POWD 17 gms in 4 oz water or juice daily MIRALAX POWD 850526 POLYETHYLENE GLYCOL 3350 Inactive CVS VITAMIN C 500 MG TABS 1 po daily CVS VITAMIN C 500 MG TABS 410540 ASCORBIC ACID Inactive COZAAR 100 MG TABS 1 qd COZAAR 100 MG TABS 489789 LOSARTAN POTASSIUM Inactive ALLOPURINOL 300 MG TABS 1 qd ALLOPURINOL 300 MG TABS 852850 ALLOPURINOL Inactive BUDEPRION SR 150 MG [id number] 1 bid BUDEPRION SR 150 MG [id number] BUPROPION HCL Inactive DILANTIN 100 MG CAPS 3 cap tid DILANTIN 100 MG CAPS 021728 PHENYTOIN SODIUM EXTENDED Inactive HYDROCODONE-ACETAMINOPHEN 7.5-325 MG TABS 1 q 6 hrs prn HYDROCODONE-ACETAMINOPHEN 7.5-325 MG TABS 103418 HYDROCODONE- ACETAMINOPHEN Inactive FENTANYL 25 MCG/HR PT72 Apply to clean skin and change every 72 hours. 07/03 FENTANYL 25 MCG/HR PT72 946751 FENTANYL Inactive Advance Directives Directive Description Start Date ADVANCE DIRECTIVE Immunizations Vaccine Administration Date Value Standard Description influenza immunization (Flu Vax) has been administered Influenza - Unspecified Formulation [CVX88] influenza virus vaccine, unspecified formulation pneumococcal immunization administered Pneumovax 23 [CVX33] pneumococcal polysaccharide vaccine, 23 valent Vital Signs Date Name Value Unit Range Description blood pressure, diastolic - 8462-4 89 mm[Hg] BP augusitn blood pressure, systolic - 8480-6 160 mm[Hg] [...] E&M - 3141-9 377 [lb_av] Weight Measured Diagnostic Results Date Name [...] A/B - Chemistry sodium, serum 142 mmol/L 533-427 6878/01/20 potassium, serum 3.9 mmol/L 3.5-5.2 chloride, serum [...] 4.3-6.0 Encounters Code Encounter Date Provider Facility CPT-75021 Level 3 Est. Patient 18:04:07 CDT Jonel Hemphill MD [facility] CPT-60870 Level 3 Est. Patient 17:18:03 CDT Jonel Hemphill MD [facility] CPT-03319 Level 3 Est. Patient 21:58:03 SALES REPRESENTATIVE JEWELRY Jonel Hemphill MD [facility] CPT-44174 Level 4 Est. Patient 18:03:14 CDT Jonel Yeager [facility]-32276 Level 4 Est. Patient 13:24:53 CDT Jonel Yeager [facility]-08331 Level 4 Est. Patient 09:15:44 CDT Jonel Yeager [facility]-46559 Level 4 Est. Patient 19:16:01 CDT Jonel Yeager [facility] CPT-16084 Level 4 Est. Patient 11:25:16 CDT Jonel Hemphill MD [facility] CPT-22848 Level 4 Est. Patient 09:00:40 CDT Jonel Yeager [facility]-47379 Level 4 Est. Patient 14:53:58 CDT Jonel Hemphill MD [facility] CPT-65897 Level 4 Est. Patient 22:59:01 CDT Jonel Hemphill MD [facility]-08601 Level 4 Est. Patient 09:29:57 CDT Jonel Hemphill MD [facility]-80638 Level 4 Est. Patient 12:35:53 SALES REPRESENTATIVE JEWELRY Jonel Hemphill MD [facility] CPT-48372 Level 4 Est. Patient 22:36:09 SALES REPRESENTATIVE JEWELRY Jonel Hemphill MD [facility]-66656 Level 2 Est. Patient 15:14:15 SALES REPRESENTATIVE JEWELRY Myaco Shah APRN [facility] CPT-23827 Level 4 Est. Patient 10:36:22 SALES REPRESENTATIVE JEWELRY Jonel Hemphill MD [facility] CPT-25502 Level 4 Est. Patient 22:01:13 SALES REPRESENTATIVE JEWELRY Jonel Hemphill MD [facility]-14689 Level 3 Est. Patient 21:50:37 SALES REPRESENTATIVE JEWELRY Jonel Hemphill MD [facility] CPT-39063 Level 4 Est. Patient 15:02:43 CDT Rubin Pierre MD [facility] CPT-31859 Level 4 Est. Patient 14:27:35 CDT Jonel Hemphill MD [facility]-23776 Level 4 Est. Patient 12:41:17 CDT Jonel Hemphill MD [facility]-43629 Level 4 Est. Patient 16:18:55 CDT Jonel Hemphill MD [facility]-16840 Level 4 Est. Patient 17:58:05 CDT Jonel Hemphill MD [facility]-19763 Level 4 Est. Patient 22:10:06 CDT Joenl Hemphill MD [facility]-19912 Level 4 Est. Patient 13:22:09 CDT Jonel Hemphill MD [facility]-42222 Level 4 Est. Patient 22:52:17 SALES REPRESENTATIVE JEWELRY Jonel Hemphill MD [facility] CPT-22775 Level 3 Est. Patient 22:34:10 SALES REPRESENTATIVE JEWELRY Jonel Hemphill MD [facility] CPT-42828 Level 4 Est. Patient 07:49:20 SALES REPRESENTATIVE JEWELRY Jonel Hemphill MD [facility] Skilled CPT-68463 Level 3 Est. Patient 08:28:27 SALES REPRESENTATIVE JEWELRY Jonel Hemphill MD [facility] Procedures Code Procedure Name Date Entry Date Standard Description CPT-15402 Level 3 Retirement 17:39:14 CDT CPT-26884 Level 3 Retirement 13:32:58 CDT CPT-17317 Level 3 Retirement 17:43:43 CDT CPT-55447 Level 3 Retirement 12:03:33 SALES REPRESENTATIVE JEWELRY CPT-79172 Level 3 Retirement 18:47:28 SALES REPRESENTATIVE JEWELRY CPT-70231 Level 3 Retirement 17:35:26 SALES REPRESENTATIVE JEWELRY CPT-08108 Level 3 Retirement 18:44:49 SALES REPRESENTATIVE JEWELRY CPT-47453 Level 3 Retirement 18:17:33 CDT CPT-31789 Level 3 Retirement 09:25:33 CDT CPT-61703 Level 3 Retirement 19:11:57 CDT CPT-68268 Level 3 Retirement 09:25:52 CDT CPT-23301 Level 3 Retirement 14:23:59 CDT CPT-30376 Level 3 Retirement 12:09:43 CDT CPT-16732 Level 3 Retirement 09:37:40 CDT CPT-24955 Level 3 Retirement 18:23:02 CDT CPT-04111 Level 3 Retirement 14:09:06 CDT CPT-61336 Level 3 Retirement 12:43:27 SALES REPRESENTATIVE JEWELRY CPT-37792 Postop F/U Visit 14:10:15 SALES REPRESENTATIVE JEWELRY CPT-91972 [facility] 17:07:14 SALES REPRESENTATIVE JEWELRY CPT-93601 Level 3 Retirement 16:14:37 SALES REPRESENTATIVE JEWELRY CPT-74317 Port a cath flush 11:47:42 CDT CPT-81033 Port a cath flush 08:29:49 CDT CPT-OV Office Visit 14:27:58 SALES REPRESENTATIVE JEWELRY
--- OUTSIDE RECORDS SUMMARY | 2016-08-07 12:50 | XMS REPORT | Clinical Summary ---
Author Author Admin, [place] Organization [facility] Address Unknown Phone Unavailable Allergies, Adverse Reactions, 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, CREDIT ADMINISTRATION MANAGER V58.69 Resolved Jonel Hemphill MD Long-term [...] Coronary atherosclerosis of unspecified type of vessel, iqugmiut or graft FH DIABETES V18.0 Resolved Jonel [...] Coronary atherosclerosis of unspecified type of vessel, iqugmiut or graft CONSTIPATION 564.00 Resolved Jonel Hemphill [...] Jonel Hemphill MD Unspecified fall 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 USE, CREDIT ADMINISTRATION MANAGER ICD-V58.69 Inactive Jonel Hemphill MD DIABETES, [...] 1 po q6hr PRN Nausea ONDANSETRON HCL 59273216962 Active Jonel Hemphill MD Active XARELTO 20 MG ORAL TABS 1 daily RIVAROXABAN 75601288624 Active Jonel Hemphill MD Active JANUVIA 100 MG ORAL TABS 2 tabs daily SITAGLIPTIN PHOSPHATE 60513639905 Active Jonel Hemphill MD Active CELEXA 20 MG TABS Take 1 tablet 1x daily CITALOPRAM HYDROBROMIDE 17970964074 No Longer Active Jonel Hemphill MD Active ATIVAN 0.5 MG TABS Take 1 tablet 2x daily PRN LORAZEPAM 40823763862 No Longer Active Jonel Hemphill MD Active FUROSEMIDE 80 MG ORAL TABS 1 daily FUROSEMIDE 99815667388 Active Jonel Hemphill MD Active MECLIZINE HCL 25 MG CHEW TAB 1 four times a day as needed for dizziness 02/21 MECLIZINE HCL 60080666098 No Longer Active Jonel Hemphill MD Active ZYLOPRIM 300 MG TAB 1 BY MOUTH DAILY ALLOPURINOL 23087302231 No Longer Active Jonel Hemphill MD Active METOPROLOL TARTRATE 50 MG ORAL TABS 1 TAB BY MOUTH TWICE DAILY METOPROLOL TARTRATE 21390484089 No Longer Active Jonel Hemphill MD Active GABAPENTIN 400 MG ORAL CAPS 1 TAB BY MOUTH THREE TIMES DAILY 2015 GABAPENTIN 63757961830 No Longer Active Jonel Hemphill MD Active ULORIC 40 MG ORAL TABS 1 daily for gout. FEBUXOSTAT 92621289788 Active Marleni Romero Active HYDROCODONE-ACETAMINOPHEN 7.5-325 MG TABS 1 TAB PO Q 6 HRS PRN HYDROCODONE-ACETAMINOPHEN 82299074848 Active Jonel Hemphill MD Active METFORMIN HCL 1000 MG TABS 1 tablet by mouth twice daily METFORMIN HCL 94390401074 Active Marleni Romero Active FENTANYL 12 MCG/HR PT72 Apply to clean, dry skin and change every 72 hours FENTANYL 08430159408 Active Jonel Hemphill MD Active KLOR-CON 20 MEQ ORAL PACK 1 BY MOUTH DAILY POTASSIUM CHLORIDE 13768391196 Active Marleni Romero Active A+D FIRST AID EXT OINT APPLY OINTMENT AND RUFINO WRAPS TO LOWER EXTEREMETIES DAILY SKIN PROTECTANTS, MISC. 40555573281 Active Jonel Hemphill MD Active NYSTATIN 336547 UNIT/GM EXT OINT APPLY PRN TID TO GAULDING/RASH IN ABDOMINAL FOLDS NYSTATIN 48850940877 Active Jonel Hemphill MD Active GABAPENTIN 300 MG CAPS 1 CAP PO TID GABAPENTIN 21641182472 No Longer Active Jonel Hemphill MD Active DILANTIN 100 MG ORAL CAPS 1 THREE TIMES DAILY FOR SEIZURES PHENYTOIN SODIUM EXTENDED 00901369957 Active Marleni Romero Active CPAP APPLY AT HS CPAP Active Jonel Hemphill MD Active LISINOPRIL 40 MG TABS 1 tablet by mouth twice daily, for blood pressure 03/31 LISINOPRIL 78941667060 Active Jonel Hemphill MD Active BUPROPION HCL ER (SR) 150 MG [id number] 1 twice a day for depression BUPROPION HCL 68998415175 Active Jonel Hemphill MD Active MULTIVITAMINS CAPS 1 DAILY MULTIPLE VITAMIN 81353287036 Active Jonel Hemphill MD Active HYDROCODONE-ACETAMINOPHEN 7.5-325 MG TABS 1 q 6 hrs prn HYDROCODONE-ACETAMINOPHEN 85605365462 No Longer Active Jonel Hemphill MD Active DILANTIN 100 MG CAPS 3 cap tid PHENYTOIN SODIUM EXTENDED 38580521432 No Longer Active Jonel Hemphill MD Active BUDEPRION SR 150 MG [id number] 1 bid BUPROPION HCL 37895388790 No Longer Active Jonel Hemphill MD Active ALLOPURINOL 300 MG TABS 1 qd ALLOPURINOL 74968526052 No Longer Active Jonel Hemphill MD Active COZAAR 100 MG TABS 1 qd LOSARTAN POTASSIUM 72420909203 No Longer Active Jonel Hemphill MD Active CVS VITAMIN C 500 MG TABS 1 po daily ASCORBIC ACID 51254370108 No Longer Active Jonel Hemphill MD Active MIRALAX POWD 17 gms in 4 oz water or juice daily POLYETHYLENE GLYCOL 3350 64725172556 No Longer Active Jonel Hemphill MD Active POTASSIUM CHLORIDE CHELA ER 20 MEQ CR-TABS 1 tab PO daily POTASSIUM CHLORIDE CHELA CR 17432263260 No Longer Active Jonel Hemphill MD Active AMBIEN 10 MG TAB 1 tab by mouth at bedtime as needed for sleep ZOLPIDEM TARTRATE 48726474045 No Longer Active Jonel Hemphill MD Active SULFAMETHOXAZOLE-TMP DS 800-160 MG TABS 1 TAB PO BID SULFAMETHOXAZOLE-TRIMETHOPRIM 60419732197 No Longer Active Jonel Hemphill MD Active NORCO 5-325 MG TABS 1-2 TAB Q 6 HRS PRN HYDROCODONE- ACETAMINOPHEN 86049924881 Active Jonel Hemphill MD Active LEVEMIR 100 UNIT/ML SOLN 5 units sub-q at bedtime INSULIN DETEMIR 46208412926 No Longer Active Tova Perez Active MOBIC 15 MG TABS 1 tab PO daily for arthritis pain MELOXICAM 70426884380 No Longer Active Tova Perez Active GLUCAGEN 1 MG SOLR INJECT 1MG IM IF BS LESS THAN 60 & RES. IS UNABLE TO SWALLOW GLUCAGON HCL (RDNA) 42302210285 No Longer Active Tova Perez Active CVS MILK OF MAGNESIA 1200 MG/15ML SUSP 30 ml daily for constipation MAGNESIUM HYDROXIDE 85332587514 No Longer Active Tova Perez Active IMDUR 120 MG [id number] 1 qd ISOSORBIDE MONONITRATE 00324771630 No Longer Active Tova Perez Active PHENYTOIN 50 MG CHEW 1 TAB PO BID PHENYTOIN 78275079399 Active Tova Perez Active NEURONTIN 400 MG CAPS Take one by mouth 3 times daily, morning, afternoon and evening.] GABAPENTIN 56601690789 No Longer Active Tova Perez Active ANTIVERT 25 MG TABS 1 q 6 hrs prn MECLIZINE HCL 44438600621 No Longer Active Jonel Hemphill MD Active CLONIDINE HCL 0.2 MG TABS 1 q 8 hrs as needed -greater than 160-htn CLONIDINE HCL 69036902036 No Longer Active Jonel Hemphill MD Active AMBIEN 10 MG TABS 1 q hs prn ZOLPIDEM TARTRATE 11273773578 No Longer Active Jonel Hemphill MD Active GNP THERAPEUTIC-M TABS 1 qd MULTIPLE VITAMINS- MINERALS 79957492709 No Longer Active Jonel Hemphill MD Active METOPROLOL TARTRATE 50 MG TABS 1 bid METOPROLOL TARTRATE 30700265115 No Longer Active Jonel Hemphill MD Active METFORMIN HCL 500 MG TABS 1 bod with food METFORMIN HCL 59755048954 No Longer Active Jonel Hemphill MD Active LISINOPRIL 40 MG TABS 1 qd LISINOPRIL 98122472454 No Longer Active Jonel Hemphill MD Active HYDROCHLOROTHIAZIDE 25 MG TABS 1 qd HYDROCHLOROTHIAZIDE 17886276141 No Longer Active Jonel Hemphill MD Active DURAGESIC-25 25 MCG/HR PT72 place 1 patch on the skin q72hrs for pain FENTANYL 37823717852 No Longer Active Jonel Hemphill MD Active FENTANYL 75 MCG/HR PT72 place 1 patch on skin q72hrs fr pain 2012 FENTANYL 57683737105 No Longer Active Jonel Hemphill MD Active FUROSEMIDE 40 MG TABS 1 q am FUROSEMIDE 60301958122 No Longer Active Jonel Hemphill MD Active HEPARIN (PORCINE) LOCK FLUSH 100 UNIT/ML SOLN Flush port a cath monthly every three week on with Heparin and NS HEPARIN LOCK FLUSH 44622537152 Active Jonel Hemphill MD Active FENTANYL 100 MCG/HR PT72 Apply every 3 days FENTANYL 61757951289 Active Jonel Hemphill MD Active FENTANYL 25 MCG/HR PT72 Apply to clean skin and change every 72 hours. 07/03 FENTANYL 61600296085 No Longer Active Jonel Hemphill MD Active FENTANYL 50 MCG/HR PT72 place 1 patch on skin q72 hours FENTANYL 88872676009 No Longer Active Mayco Shah APRN Active DURAGESIC-12 12 MCG/HR PT72 APPLY PATCH TO SKIN AND CHANGE EVERY 72 HOURS, ROTATE SITES FENTANYL 79517529106 No Longer Active Fozia HERNANDEZ Active FUROSEMIDE 20 MG TABS 1 qd FUROSEMIDE 91869579174 No Longer Active Mahogany Jenkins Active ADULT ASPIRIN EC LOW STRENGTH 81 MG TBEC 1 qd ASPIRIN 04753347188 Active MARY Perez Active FUROSEMIDE 20 MG TABS 1 qd FUROSEMIDE 20 MG TABS 469810 FUROSEMIDE Inactive DURAGESIC-12 12 MCG/HR PT72 APPLY PATCH TO SKIN AND CHANGE EVERY 72 HOURS, ROTATE SITES DURAGESIC-12 12 MCG/HR PT72 666250 FENTANYL Inactive FENTANYL 50 MCG/HR PT72 place 1 patch on skin q72 hours FENTANYL 50 MCG/HR PT72 710524 FENTANYL Inactive FUROSEMIDE 40 MG TABS 1 q am FUROSEMIDE 40 MG TABS 948021 FUROSEMIDE Inactive FENTANYL 75 MCG/HR PT72 place 1 patch on skin q72hrs fr pain 2012 FENTANYL 75 MCG/HR PT72 880676 FENTANYL Inactive DURAGESIC-25 25 MCG/HR PT72 place 1 patch on the skin q72hrs for pain DURAGESIC-25 25 MCG/HR PT72 613931 FENTANYL Inactive HYDROCHLOROTHIAZIDE 25 MG TABS 1 qd HYDROCHLOROTHIAZIDE 25 MG TABS 090402 HYDROCHLOROTHIAZIDE Inactive LISINOPRIL 40 MG TABS 1 qd LISINOPRIL 40 MG TABS 846842 LISINOPRIL Inactive METFORMIN HCL 500 MG TABS 1 bod with food METFORMIN HCL 500 MG TABS 773618 METFORMIN HCL Inactive METOPROLOL TARTRATE 50 MG TABS 1 bid METOPROLOL TARTRATE 50 MG TABS 847838 METOPROLOL TARTRATE Inactive GNP THERAPEUTIC-M TABS 1 qd GNP THERAPEUTIC-M TABS MULTIPLE VITAMINS-MINERALS Inactive AMBIEN 10 MG TABS 1 q hs prn AMBIEN 10 MG TABS 479357 ZOLPIDEM TARTRATE Inactive CLONIDINE HCL 0.2 MG TABS 1 q 8 hrs as needed -greater than 160-htn CLONIDINE HCL 0.2 MG TABS 634926 CLONIDINE HCL Inactive ANTIVERT 25 MG TABS 1 q 6 hrs prn ANTIVERT 25 MG TABS MECLIZINE HCL Inactive NEURONTIN 400 MG CAPS Take one by mouth 3 times daily, morning, afternoon and evening.] NEURONTIN 400 MG CAPS 731928 GABAPENTIN Inactive IMDUR 120 MG [id number] 1 qd IMDUR 120 MG [id number] ISOSORBIDE MONONITRATE Inactive CVS MILK OF MAGNESIA [...] for arthritis pain MOBIC 15 MG TABS 728333 MELOXICAM Inactive LEVEMIR 100 UNIT/ML SOLN 5 units sub-q at bedtime LEVEMIR 100 UNIT/ML SOLN INSULIN DETEMIR Inactive SULFAMETHOXAZOLE-TMP DS 800-160 MG TABS 1 TAB PO BID SULFAMETHOXAZOLE-TMP DS 800-160 MG TABS 043962 SULFAMETHOXAZOLE-TRIMETHOPRIM Inactive AMBIEN 10 MG TAB 1 tab by mouth at bedtime as needed for sleep AMBIEN 10 MG TAB 168164 ZOLPIDEM TARTRATE Inactive POTASSIUM CHLORIDE CHELA ER 20 MEQ CR-TABS 1 tab PO daily POTASSIUM CHLORIDE CHELA ER 20 MEQ CR-TABS POTASSIUM CHLORIDE CHELA CR Inactive MIRALAX POWD 17 gms in 4 oz water or juice daily MIRALAX POWD 456610 POLYETHYLENE GLYCOL 3350 Inactive CVS VITAMIN C 500 MG TABS 1 po daily CVS VITAMIN C 500 MG TABS 305108 ASCORBIC ACID Inactive COZAAR 100 MG TABS 1 qd COZAAR 100 MG TABS 297457 LOSARTAN POTASSIUM Inactive ALLOPURINOL 300 MG TABS 1 qd ALLOPURINOL 300 MG TABS 056630 ALLOPURINOL Inactive BUDEPRION SR 150 MG [id number] 1 bid BUDEPRION SR 150 MG [id number] BUPROPION HCL Inactive DILANTIN 100 MG CAPS 3 cap tid DILANTIN 100 MG CAPS 757589 PHENYTOIN SODIUM EXTENDED Inactive HYDROCODONE-ACETAMINOPHEN 7.5-325 MG TABS 1 q 6 hrs prn HYDROCODONE-ACETAMINOPHEN 7.5-325 MG TABS 488519 HYDROCODONE- ACETAMINOPHEN Inactive GABAPENTIN 300 MG CAPS 1 CAP PO TID GABAPENTIN 300 MG CAPS 676950 GABAPENTIN Inactive GABAPENTIN 400 MG ORAL CAPS 1 TAB BY MOUTH THREE TIMES DAILY 2015 GABAPENTIN 400 MG ORAL CAPS 154573 GABAPENTIN Inactive METOPROLOL TARTRATE 50 MG ORAL TABS 1 TAB BY MOUTH TWICE DAILY METOPROLOL TARTRATE 50 MG ORAL TABS 112229 METOPROLOL TARTRATE Inactive ZYLOPRIM 300 MG TAB 1 BY MOUTH DAILY ZYLOPRIM 300 MG TAB 205163 ALLOPURINOL Inactive MECLIZINE HCL 25 MG CHEW TAB 1 four times a day as needed for dizziness 02/21 MECLIZINE HCL 25 MG CHEW TAB 386780 MECLIZINE HCL Inactive ATIVAN 0.5 MG TABS Take 1 tablet 2x daily PRN ATIVAN 0.5 MG TABS 726700 LORAZEPAM Inactive CELEXA 20 MG TABS Take 1 tablet 1x daily CELEXA 20 MG TABS 419084 CITALOPRAM HYDROBROMIDE Inactive FENTANYL 25 MCG/HR PT72 Apply to clean skin and change every 72 hours. 07/03 FENTANYL 25 MCG/HR PT72 511957 FENTANYL Inactive Advance Directives Directive Description Start [...] glucose 239 mg/dL creatinine, serum 1.17 mg/dL potassium, serum 3.9 mmol/L sodium, serum 143 mmol/L Chart Maintenance: Outside labs entered on flowsheet - Hematology platelet count 113 10*3/mm3 hemoglobin, blood 14.4 g/dL leukocyte count, blood 6.9 10*3/mm3 Encounters Code Encounter Date Provider Facility CPT-94536 Level 3 Est. Patient 19:05:03 CDT Jonel Hemphill MD [facility] CPT-76607 Level 3 Est. Patient 17:30:47 CDT Kevin Link MD -[id number] Level 3 Est. Patient 18:04:07 CDT Jonel Hemphill MD [facility] CPT-68105 Level 3 Est. Patient 17:18:03 CDT Jonel Hemphill MD [facility] CPT-78748 Level 3 Est. Patient 21:58:03 ITALIAN TEACHER Jonel Hemphill MD [facility] CPT-90656 Level 4 Est. Patient 18:03:14 CDT Jonel Yeager [facility]-07588 Level 4 Est. Patient 13:24:53 CDT Jonel Hemphill MD [facility]-03896 Level 4 Est. Patient 09:15:44 CDT Jonel Yeager [facility]-14418 Level 4 Est. Patient 19:16:01 CDT Jonel Yeager [facility]-43343 Level 4 Est. Patient 11:25:16 CDT Jonel Hemphill MD [facility] CPT-38064 Level 4 Est. Patient 09:00:40 CDT Jonel Yeager [facility]-45321 Level 4 Est. Patient 14:53:58 CDT Jonel Hemphill MD [facility] CPT-79619 Level 4 Est. Patient 22:59:01 CDT Jonel Hemphill MD [facility]-21099 Level 4 Est. Patient 09:29:57 CDT Jonel Hemphill MD [facility]-33854 Level 4 Est. Patient 12:35:53 ITALIAN TEACHER Jonel Hemphill MD [facility]-79364 Level 4 Est. Patient 22:36:09 ITALIAN TEACHER Jonel Hemphill MD [facility]-07578 Level 2 Est. Patient 15:14:15 ITALIAN TEACHER Mayco Shah APRN [facility] CPT-56237 Level 4 Est. Patient 10:36:22 ITALIAN TEACHER Jonel Hemphill MD [facility] CPT-76887 Level 4 Est. Patient 22:01:13 ITALIAN TEACHER Jonel Hemphill MD [facility]-56265 Level 3 Est. Patient 21:50:37 ITALIAN TEACHER Jonel Hemphill MD [facility] CPT-53872 Level 4 Est. Patient 15:02:43 CDT Rubin Pierre MD [facility] CPT-51190 Level 4 Est. Patient 14:27:35 CDT Jonel Hemphill MD [facility]-70393 Level 4 Est. Patient 12:41:17 CDT Jonel Hemphill MD [facility]-20628 Level 4 Est. Patient 16:18:55 CDT Jonel Hemphill MD [facility]-91988 Level 4 Est. Patient 17:58:05 CDT Jonel Hemphill MD [facility]-13496 Level 4 Est. Patient 22:10:06 CDT Jonel Hemphill MD [facility]-02845 Level 4 Est. Patient 13:22:09 CDT Jonel Hemphill MD [facility]-19382 Level 4 Est. Patient 22:52:17 ITALIAN TEACHER Jonel Hemphill MD [facility]-66753 Level 3 Est. Patient 22:34:10 ITALIAN TEACHER Jonel Hemphill MD [facility]-77376 Level 4 Est. Patient 07:49:20 ITALIAN TEACHER Jonel Hemphill MD [facility] CPT-09094 Level 3 Est. Patient 08:28:27 ITALIAN TEACHER Jonel Hemphill MD [facility] Procedures Code Procedure Name Date Entry Date Standard Description CPT-65213 Level 3 Mcc 19:03:14 CDT CPT-87165 Level 3 Mcc 17:42:11 CDT CPT-05316 Level 3 Mcc 16:04:10 CDT CPT-15357 Level 3 Mcc 19:38:15 ITALIAN TEACHER CPT-03474 Level 3 Mcc 19:28:48 ITALIAN TEACHER CPT-32158 Level 3 Mcc 18:02:20 ITALIAN TEACHER CPT-75528 Level 3 Mcc 15:02:14 ITALIAN TEACHER CPT-34448 Level 3 Mcc 12:25:37 CDT CPT-78218 Level 3 Mcc 12:48:39 CDT CPT-70449 Level 3 Mcc 17:39:14 CDT CPT-88658 Level 3 Mcc 13:32:58 CDT CPT-97872 Level 3 Mcc 17:43:43 CDT CPT-81068 Level 3 Mcc 12:03:33 ITALIAN TEACHER CPT-51937 Level 3 Mcc 18:47:28 ITALIAN TEACHER CPT-11469 Level 3 Mcc 17:35:26 ITALIAN TEACHER CPT-04920 Level 3 Mcc 18:44:49 ITALIAN TEACHER CPT-61361 Level 3 Mcc 18:17:33 CDT CPT-18256 Level 3 Mcc 09:25:33 CDT CPT-13959 Level 3 Mcc 19:11:57 CDT CPT-02119 Level 3 Mcc 09:25:52 CDT CPT-80936 Level 3 Mcc 14:23:59 CDT CPT-20620 Level 3 Mcc 12:09:43 CDT CPT-38127 Level 3 Mcc 09:37:40 CDT CPT-33442 Level 3 Mcc 18:23:02 CDT CPT-13189 Level 3 Mcc 14:09:06 CDT CPT-82259 Level 3 Mcc 12:43:27 ITALIAN TEACHER CPT-40822 Postop F/U Visit 14:10:15 ITALIAN TEACHER CPT-83417 [facility] 17:07:14 ITALIAN TEACHER CPT-84391 Level 3 Mcc 16:14:37 ITALIAN TEACHER CPT-19129 Port a cath flush 11:47:42 CDT CPT-72028 Port a cath flush 08:29:49 CDT CPT-OV Office Visit 14:27:58 ITALIAN TEACHER
--- OUTSIDE RECORDS SUMMARY | 2016-08-07 12:52 | XMS REPORT | Clinical Summary ---
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 V58.69 Resolved Jonel Hemphill MD Long-term [...] Coronary atherosclerosis of unspecified type of vessel, [place] or graft FH DIABETES V18.0 Resolved Jonel [...] Coronary atherosclerosis of unspecified type of vessel, [place] or graft CONSTIPATION 564.00 Resolved Jonel Hemphill [...] Obstructive sleep apnea (adult) (pediatric) 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 USE, CAKE PRESS OPERATOR HELPER ICD-V58.69 Inactive Jonel Hemphill MD DIABETES, TYPE [...] 1 tablet by mouth daily CITALOPRAM HYDROBROMIDE 32609181038 Active Marleni Romero Active ZOFRAN 4 MG TABS 1 po q6hr PRN Nausea ONDANSETRON HCL 98126249771 Active Jonel Hemphill MD Active XARELTO 20 MG ORAL TABS 1 daily RIVAROXABAN 02938126566 Active Jonel Hemphill MD Active JANUVIA 100 MG ORAL TABS 2 tabs daily SITAGLIPTIN PHOSPHATE 00572921362 Active Jonel Hemphill MD Active CELEXA 20 MG TABS Take 1 tablet 1x daily CITALOPRAM HYDROBROMIDE 06819268959 No Longer Active Jonel Hemphill MD Active ATIVAN 0.5 MG TABS Take 1 tablet 2x daily PRN LORAZEPAM 73971415616 No Longer Active Jonel Hemphill MD Active FUROSEMIDE 80 MG ORAL TABS 1 daily FUROSEMIDE 16462590038 Active Jonel Hemphill MD Active MECLIZINE HCL 25 MG CHEW TAB 1 four times a day as needed for dizziness 02/21 MECLIZINE HCL 22991692370 No Longer Active Jonel Hemphill MD Active ZYLOPRIM 300 MG TAB 1 BY MOUTH DAILY ALLOPURINOL 39886383940 No Longer Active Jonel Hemphill MD Active METOPROLOL TARTRATE 50 MG ORAL TABS 1 TAB BY MOUTH TWICE DAILY METOPROLOL TARTRATE 61868704106 No Longer Active Jonel Hemphill MD Active GABAPENTIN 400 MG ORAL CAPS 1 TAB BY MOUTH THREE TIMES DAILY 2015 GABAPENTIN 64116568455 No Longer Active Jonel Hemphill MD Active ULORIC 40 MG ORAL TABS 1 daily for gout. FEBUXOSTAT 38602207977 Active Marleni Romero Active HYDROCODONE-ACETAMINOPHEN 7.5-325 MG TABS 1 TAB PO Q 6 HRS PRN HYDROCODONE-ACETAMINOPHEN 27387029959 Active Mattie Gates APRN Active METFORMIN HCL 1000 MG TABS 1 tablet by mouth twice daily METFORMIN HCL 52970888872 Active Marleni Romero Active FENTANYL 12 MCG/HR PT72 Apply to clean, dry skin and change every 72 hours FENTANYL 81882936019 Active Jonel Hemphill MD Active KLOR-CON 20 MEQ ORAL PACK 1 BY MOUTH DAILY POTASSIUM CHLORIDE 57497746916 Active Marleni Romero Active A+D FIRST AID EXT OINT APPLY OINTMENT AND RUFINO WRAPS TO LOWER EXTEREMETIES DAILY SKIN PROTECTANTS, MISC. 64897536265 Active Jonel Hemphill MD Active NYSTATIN 945357 UNIT/GM EXT OINT APPLY PRN TID TO GAULDING/RASH IN ABDOMINAL FOLDS NYSTATIN 74441175351 Active Jonel Hemphill MD Active GABAPENTIN 300 MG CAPS 1 CAP PO TID GABAPENTIN 16588217403 No Longer Active Jonel Hemphill MD Active DILANTIN 100 MG ORAL CAPS 1 THREE TIMES DAILY FOR SEIZURES PHENYTOIN SODIUM EXTENDED 99817218643 Active Marleni Tenoriokristin Active CPAP APPLY AT HS CPAP Active Jonel Hemphill MD Active LISINOPRIL 40 MG TABS 1 tablet by mouth twice daily, for blood pressure 03/31 LISINOPRIL 30326263636 Active Jonel Hemphill MD Active BUPROPION HCL ER (SR) 150 MG [id number] 1 twice a day for depression BUPROPION HCL 45643729207 Active Jonel Hemphill MD Active MULTIVITAMINS CAPS 1 DAILY MULTIPLE VITAMIN 71338135535 Active Jonel Hemphill MD Active HYDROCODONE-ACETAMINOPHEN 7.5-325 MG TABS 1 q 6 hrs prn HYDROCODONE-ACETAMINOPHEN 29804868292 No Longer Active Jonel Hemphill MD Active DILANTIN 100 MG CAPS 3 cap tid PHENYTOIN SODIUM EXTENDED 90328693035 No Longer Active Jonel Hemphill MD Active BUDEPRION SR 150 MG [id number] 1 bid BUPROPION HCL 62968136537 No Longer Active Jonel Hemphill MD Active ALLOPURINOL 300 MG TABS 1 qd ALLOPURINOL 51028463423 No Longer Active Jonel Hemphill MD Active COZAAR 100 MG TABS 1 qd LOSARTAN POTASSIUM 24130549518 No Longer Active Jonel Hemphill MD Active CVS VITAMIN C 500 MG TABS 1 po daily ASCORBIC ACID 52350436652 No Longer Active Jonel Hemphill MD Active MIRALAX POWD 17 gms in 4 oz water or juice daily POLYETHYLENE GLYCOL 3350 24606162238 No Longer Active Jonel Hemphill MD Active POTASSIUM CHLORIDE CHELA ER 20 MEQ CR-TABS 1 tab PO daily POTASSIUM CHLORIDE CHELA CR 21667738251 No Longer Active Jonel Hemphill MD Active AMBIEN 10 MG TAB 1 tab by mouth at bedtime as needed for sleep ZOLPIDEM TARTRATE 40656109337 No Longer Active Jonel Hemphill MD Active SULFAMETHOXAZOLE-TMP DS 800-160 MG TABS 1 TAB PO BID SULFAMETHOXAZOLE-TRIMETHOPRIM 08522476431 No Longer Active Jonel Hemphill MD Active NORCO 5-325 MG TABS 1-2 TAB Q 6 HRS PRN HYDROCODONE- ACETAMINOPHEN 21716956063 Active Jonel Hemphill MD Active LEVEMIR 100 UNIT/ML SOLN 5 units sub-q at bedtime INSULIN DETEMIR 78735941519 No Longer Active Tova Perez Active MOBIC 15 MG TABS 1 tab PO daily for arthritis pain MELOXICAM 91569480988 No Longer Active Tova Perez Active GLUCAGEN 1 MG SOLR INJECT 1MG IM IF BS LESS THAN 60 & RES. IS UNABLE TO SWALLOW GLUCAGON HCL (RDNA) 21612218386 No Longer Active Tova Perez Active CVS MILK OF MAGNESIA 1200 MG/15ML SUSP 30 ml daily for constipation MAGNESIUM HYDROXIDE 33052302226 No Longer Active Tova Perez Active IMDUR 120 MG [id number] 1 qd ISOSORBIDE MONONITRATE 74196998420 No Longer Active Tova Perez Active PHENYTOIN 50 MG CHEW 1 TAB PO BID PHENYTOIN 71626631955 Active Tova Perez Active NEURONTIN 400 MG CAPS Take one by mouth 3 times daily, morning, afternoon and evening.] GABAPENTIN 31307900837 No Longer Active Tova Perez Active ANTIVERT 25 MG TABS 1 q 6 hrs prn MECLIZINE HCL 67353329835 No Longer Active Jonel Hemphill MD Active CLONIDINE HCL 0.2 MG TABS 1 q 8 hrs as needed -greater than 160-htn CLONIDINE HCL 91485643897 No Longer Active Jonel Hemphill MD Active AMBIEN 10 MG TABS 1 q hs prn ZOLPIDEM TARTRATE 70299526240 No Longer Active Jonel Hemphill MD Active GNP THERAPEUTIC-M TABS 1 qd MULTIPLE VITAMINS- MINERALS 35239075472 No Longer Active Jonel Hemphill MD Active METOPROLOL TARTRATE 50 MG TABS 1 bid METOPROLOL TARTRATE 83936804612 No Longer Active Jonel Hemphill MD Active METFORMIN HCL 500 MG TABS 1 bod with food METFORMIN HCL 23039825933 No Longer Active Jonel Hemphill MD Active LISINOPRIL 40 MG TABS 1 qd LISINOPRIL 98168764483 No Longer Active Jonel Hemphill MD Active HYDROCHLOROTHIAZIDE 25 MG TABS 1 qd HYDROCHLOROTHIAZIDE 24493450260 No Longer Active Jonel Hemphill MD Active DURAGESIC-25 25 MCG/HR PT72 place 1 patch on the skin q72hrs for pain FENTANYL 01709278163 No Longer Active Jonel Hemphill MD Active FENTANYL 75 MCG/HR PT72 place 1 patch on skin q72hrs fr pain 2012 FENTANYL 78858015169 No Longer Active Jonel Hemphill MD Active FUROSEMIDE 40 MG TABS 1 q am FUROSEMIDE 90376467597 No Longer Active Jonel Hemphill MD Active HEPARIN (PORCINE) LOCK FLUSH 100 UNIT/ML SOLN Flush port a cath monthly every three week on with Heparin and NS HEPARIN LOCK FLUSH 75752277825 Active Jonel Hemphill MD Active FENTANYL 100 MCG/HR PT72 Apply every 3 days FENTANYL 99288567573 Active Jonel Hemphill MD Active FENTANYL 25 MCG/HR PT72 Apply to clean skin and change every 72 hours. 07/03 FENTANYL 29781384935 No Longer Active Jonel Hemphill MD Active FENTANYL 50 MCG/HR PT72 place 1 patch on skin q72 hours FENTANYL 58041241723 No Longer Active Mayco Shah APRN Active DURAGESIC-12 12 MCG/HR PT72 APPLY PATCH TO SKIN AND CHANGE EVERY 72 HOURS, ROTATE SITES FENTANYL 36170883101 No Longer Active Fozia HERNANDEZ Active FUROSEMIDE 20 MG TABS 1 qd FUROSEMIDE 36063829530 No Longer Active Mahogany Bolivar Active ADULT ASPIRIN EC LOW STRENGTH 81 MG TBEC 1 qd ASPIRIN 52610261965 Active MARY Perez Active FUROSEMIDE 20 MG TABS 1 qd FUROSEMIDE 20 MG TABS 820453 FUROSEMIDE Inactive DURAGESIC-12 12 MCG/HR PT72 APPLY PATCH TO SKIN AND CHANGE EVERY 72 HOURS, ROTATE SITES DURAGESIC-12 12 MCG/HR PT72 427756 FENTANYL Inactive FENTANYL 50 MCG/HR PT72 place 1 patch on skin q72 hours FENTANYL 50 MCG/HR PT72 863461 FENTANYL Inactive FUROSEMIDE 40 MG TABS 1 q am FUROSEMIDE 40 MG TABS 906125 FUROSEMIDE Inactive FENTANYL 75 MCG/HR PT72 place 1 patch on skin q72hrs fr pain 2012 FENTANYL 75 MCG/HR PT72 959521 FENTANYL Inactive DURAGESIC-25 25 MCG/HR PT72 place 1 patch on the skin q72hrs for pain DURAGESIC-25 25 MCG/HR PT72 133531 FENTANYL Inactive HYDROCHLOROTHIAZIDE 25 MG TABS 1 qd HYDROCHLOROTHIAZIDE 25 MG TABS 230766 HYDROCHLOROTHIAZIDE Inactive LISINOPRIL 40 MG TABS 1 qd LISINOPRIL 40 MG TABS 684831 LISINOPRIL Inactive METFORMIN HCL 500 MG TABS 1 bod with food METFORMIN HCL 500 MG TABS 634813 METFORMIN HCL Inactive METOPROLOL TARTRATE 50 MG TABS 1 bid METOPROLOL TARTRATE 50 MG TABS 885643 METOPROLOL TARTRATE Inactive GNP THERAPEUTIC-M TABS 1 qd GNP THERAPEUTIC-M TABS MULTIPLE VITAMINS-MINERALS Inactive AMBIEN 10 MG TABS 1 q hs prn AMBIEN 10 MG TABS 110233 ZOLPIDEM TARTRATE Inactive CLONIDINE HCL 0.2 MG TABS 1 q 8 hrs as needed -greater than 160-htn CLONIDINE HCL 0.2 MG TABS 459322 CLONIDINE HCL Inactive ANTIVERT 25 MG TABS 1 q 6 hrs prn ANTIVERT 25 MG TABS MECLIZINE HCL Inactive NEURONTIN 400 MG CAPS Take one by mouth 3 times daily, morning, afternoon and evening.] NEURONTIN 400 MG CAPS 342636 GABAPENTIN Inactive IMDUR 120 MG [id number] 1 qd IMDUR 120 MG [id number] ISOSORBIDE MONONITRATE Inactive CVS MILK OF MAGNESIA [...] for arthritis pain MOBIC 15 MG TABS 315627 MELOXICAM Inactive LEVEMIR 100 UNIT/ML SOLN 5 units sub-q at bedtime LEVEMIR 100 UNIT/ML SOLN INSULIN DETEMIR Inactive SULFAMETHOXAZOLE-TMP DS 800-160 MG TABS 1 TAB PO BID SULFAMETHOXAZOLE-TMP DS 800-160 MG TABS 639110 SULFAMETHOXAZOLE-TRIMETHOPRIM Inactive AMBIEN 10 MG TAB 1 tab by mouth at bedtime as needed for sleep AMBIEN 10 MG TAB 969990 ZOLPIDEM TARTRATE Inactive POTASSIUM CHLORIDE CHELA ER 20 MEQ CR-TABS 1 tab PO daily POTASSIUM CHLORIDE CHELA ER 20 MEQ CR-TABS POTASSIUM CHLORIDE CHELA CR Inactive MIRALAX POWD 17 gms in 4 oz water or juice daily MIRALAX POWD 952476 POLYETHYLENE GLYCOL 3350 Inactive CVS VITAMIN C 500 MG TABS 1 po daily CVS VITAMIN C 500 MG TABS 866407 ASCORBIC ACID Inactive COZAAR 100 MG TABS 1 qd COZAAR 100 MG TABS 596614 LOSARTAN POTASSIUM Inactive ALLOPURINOL 300 MG TABS 1 qd ALLOPURINOL 300 MG TABS 391801 ALLOPURINOL Inactive BUDEPRION SR 150 MG [id number] 1 bid BUDEPRION SR 150 MG [id number] BUPROPION HCL Inactive DILANTIN 100 MG CAPS 3 cap tid DILANTIN 100 MG CAPS 748452 PHENYTOIN SODIUM EXTENDED Inactive HYDROCODONE-ACETAMINOPHEN 7.5-325 MG TABS 1 q 6 hrs prn HYDROCODONE-ACETAMINOPHEN 7.5-325 MG TABS 564936 HYDROCODONE- ACETAMINOPHEN Inactive GABAPENTIN 300 MG CAPS 1 CAP PO TID GABAPENTIN 300 MG CAPS 840623 GABAPENTIN Inactive GABAPENTIN 400 MG ORAL CAPS 1 TAB BY MOUTH THREE TIMES DAILY 2015 GABAPENTIN 400 MG ORAL CAPS 480910 GABAPENTIN Inactive METOPROLOL TARTRATE 50 MG ORAL TABS 1 TAB BY MOUTH TWICE DAILY METOPROLOL TARTRATE 50 MG ORAL TABS 753327 METOPROLOL TARTRATE Inactive ZYLOPRIM 300 MG TAB 1 BY MOUTH DAILY ZYLOPRIM 300 MG TAB 234767 ALLOPURINOL Inactive MECLIZINE HCL 25 MG CHEW TAB 1 four times a day as needed for dizziness 02/21 MECLIZINE HCL 25 MG CHEW TAB 095261 MECLIZINE HCL Inactive ATIVAN 0.5 MG TABS Take 1 tablet 2x daily PRN ATIVAN 0.5 MG TABS 248611 LORAZEPAM Inactive CELEXA 20 MG TABS Take 1 tablet 1x daily CELEXA 20 MG TABS 493363 CITALOPRAM HYDROBROMIDE Inactive FENTANYL 25 MCG/HR PT72 Apply to clean skin and change every 72 hours. 07/03 FENTANYL 25 MCG/HR PT72 930429 FENTANYL Inactive Advance Directives Directive Description Start [...] mmol/L Encounters Code Encounter Date Provider Facility CPT-47108 Level 3 Est. Patient 19:05:03 CDT Jonel Hemphill MD [facility]-20795 Level 3 Est. Patient 17:30:47 CDT Kevni Link MD [facility]-43106 Level 3 Est. Patient 18:04:07 CDT Jonel Hemphill MD [facility]-88752 Level 3 Est. Patient 17:18:03 CDT Jonel Hemphill MD [facility]-32293 Level 3 Est. Patient 21:58:03 NIPPING MACHINE OPERATOR Jonel Hemphill MD [facility]-60268 Level 4 Est. Patient 18:03:14 CDT Jonel Hemphill MD [facility]44536 Level 4 Est. Patient 13:24:53 CDT [facility]-34605 Level 4 Est. Patient 09:15:44 CDT Jonel [facility]-59012 Level 4 Est. Patient 19:16:01 CDT Jonel Hemphill MD [facility]-31714 Level 4 Est. Patient 11:25:16 CDT Jonel Hemphill MD [facility] CPT-20073 Level 4 Est. Patient 09:00:40 CDT [facility]95259 Level 4 Est. Patient 14:53:58 CDT Jonel Hemphill MD [facility] CPT-96336 Level 4 Est. Patient 22:59:01 CDT Jonel Hemphill MD [facility]-48810 Level 4 Est. Patient 09:29:57 CDT Jonel Hemphill MD [facility]-00639 Level 4 Est. Patient 12:35:53 NIPPING MACHINE OPERATOR Jonel Hemphill MD [facility]-76824 Level 4 Est. Patient 22:36:09 NIPPING MACHINE OPERATOR Jonel Hemphill MD [facility]-57610 Level 2 Est. Patient 15:14:15 NIPPING MACHINE OPERATOR Mayco Shah APRN [facility]-93547 Level 4 Est. Patient 10:36:22 NIPPING MACHINE OPERATOR Jonel Hemphill MD [facility] CPT-74017 Level 4 Est. Patient 22:01:13 NIPPING MACHINE OPERATOR Jonel Hemphill MD [facility]-03964 Level 3 Est. Patient 21:50:37 NIPPING MACHINE OPERATOR Jonel Hemphill MD [facility] CPT-61258 Level 4 Est. Patient 15:02:43 CDT Rubin Pierre MD [facility] CPT-45177 Level 4 Est. Patient 14:27:35 CDT Jonel Hemphill MD [facility]-21749 Level 4 Est. Patient 12:41:17 CDT Jonel Hemphill MD [facility] CPT-92768 Level 4 Est. Patient 16:18:55 CDT Jonel Hemphill MD [facility] CPT-76634 Level 4 Est. Patient 17:58:05 CDT Jonel Hemphill MD [facility] CPT-71598 Level 4 Est. Patient 22:10:06 CDT Jonel Hemphill MD [facility]-76351 Level 4 Est. Patient 13:22:09 CDT Jonel Hemphill MD [facility] CPT-97337 Level 4 Est. Patient 22:52:17 NIPPING MACHINE OPERATOR Jonel Hemphill MD [facility] CPT-08366 Level 3 Est. Patient 22:34:10 NIPPING MACHINE OPERATOR Jonel Hemphill MD [facility] CPT-40072 Level 4 Est. Patient 07:49:20 NIPPING MACHINE OPERATOR Jonel Hemphill MD [facility] Skilled CPT-34877 Level 3 Est. Patient 08:28:27 NIPPING MACHINE OPERATOR Jonel Hemphill MD [facility] Procedures Code Procedure Name Date Entry Date Standard Description CPT-10027 Level 3 Custodial 08:18:30 CDT CPT-84780 Level 3 Custodial 19:03:14 CDT CPT-86737 Level 3 Custodial 17:42:11 CDT CPT-66675 Level 3 Custodial 16:04:10 CDT CPT-16010 Level 3 Custodial 19:38:15 NIPPING MACHINE OPERATOR CPT-88811 Level 3 Custodial 19:28:48 NIPPING MACHINE OPERATOR CPT-18573 Level 3 Custodial 18:02:20 NIPPING MACHINE OPERATOR CPT-48132 Level 3 Custodial 15:02:14 NIPPING MACHINE OPERATOR CPT-86235 Level 3 Custodial 12:25:37 CDT CPT-89266 Level 3 Custodial 12:48:39 CDT CPT-38866 Level 3 Custodial 17:39:14 CDT CPT-07252 Level 3 Custodial 13:32:58 CDT CPT-72427 Level 3 Custodial 17:43:43 CDT CPT-25024 Level 3 Custodial 12:03:33 NIPPING MACHINE OPERATOR CPT-98207 Level 3 Custodial 18:47:28 NIPPING MACHINE OPERATOR CPT-95933 Level 3 Custodial 17:35:26 NIPPING MACHINE OPERATOR CPT-08967 Level 3 Custodial 18:44:49 NIPPING MACHINE OPERATOR CPT-73544 Level 3 Custodial 18:17:33 CDT CPT-99694 Level 3 Custodial 09:25:33 CDT CPT-12341 Level 3 Custodial 19:11:57 CDT CPT-14348 Level 3 Custodial 09:25:52 CDT CPT-72919 Level 3 Custodial 14:23:59 CDT CPT-77899 Level 3 Custodial 12:09:43 CDT CPT-44732 Level 3 Custodial 09:37:40 CDT CPT-82473 Level 3 Custodial 18:23:02 CDT CPT-38582 Level 3 Custodial 14:09:06 CDT CPT-20658 Level 3 Custodial 12:43:27 NIPPING MACHINE OPERATOR CPT-38274 Postop F/U Visit 14:10:15 NIPPING MACHINE OPERATOR CPT-17558 [facility] 17:07:14 NIPPING MACHINE OPERATOR CPT-26223 Level 3 Custodial 16:14:37 NIPPING MACHINE OPERATOR CPT-11130 Port a cath flush 11:47:42 CDT CPT-82361 Port a cath flush 08:29:49 CDT CPT-OV Office Visit 14:27:58 NIPPING MACHINE OPERATOR
--- OUTSIDE RECORDS SUMMARY | 2016-08-07 12:53 | XMS REPORT | Clinical Summary ---
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 Jonel Hemphill MD Long-term (current) use of other medications C V A / STROKE 436 Active Gregor Giles RMA Acute, but ill-defined, cerebrovascular disease C O P D 496 Active Gregor Glies RMA Chronic airway obstruction, not elsewhere classified DIABETES, TYPE 2 250.00 Resolved Jonel Hemphill MD Diabetes mellitus without mention of complication, type II or unspecified type, not stated as uncontrolled SEIZURE DISORDER 780.39 Active Gregor Giles RMA Other convulsions CORONARY HEART DISEASE 414.00 Resolved Jonel Hemphill MD Coronary atherosclerosis of unspecified type of vessel, [place] or graft FH DIABETES V18.0 Resolved Jonel [...] Coronary atherosclerosis of unspecified type of vessel, [place] or graft CONSTIPATION 564.00 Resolved Jonel Hemphill [...] ICD-840.9 Inactive Jonel Hemphill MD 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 USE, INTERMEDIATE ICD-V58.69 Inactive Jonel Hemphill MD TREMOR ICD-781.0 [...] ORAL TABS 1 daily for gout. FEBUXOSTAT 74018958549 Active Marleni Romero Active HYDROCODONE-ACETAMINOPHEN 7.5-325 MG TABS 1 TAB PO Q 6 HRS PRN HYDROCODONE-ACETAMINOPHEN 99964110224 Active Jonel Hemphill MD Active METFORMIN HCL 1000 MG TABS 1 tablet by mouth twice daily METFORMIN HCL 02460317518 Active Marleni Romero Active FENTANYL 12 MCG/HR PT72 Apply to clean, dry skin and change every 72 hours FENTANYL 71257719231 Active Mattie Gates APRN Active KLOR-CON 20 MEQ ORAL PACK 1 BY MOUTH DAILY POTASSIUM CHLORIDE 14697247596 Active Marleni Romero Active A+D FIRST AID EXT OINT APPLY OINTMENT AND RUFINO WRAPS TO LOWER EXTEREMETIES DAILY SKIN PROTECTANTS, MISC. 53311407872 Active Jonel Hemphill MD Active NYSTATIN 327189 UNIT/GM EXT OINT APPLY PRN TID TO GAULDING/RASH IN ABDOMINAL FOLDS NYSTATIN 16482536540 Active Jonel Hemphill MD Active ATIVAN 0.5 MG TABS Take 1 tablet 2x daily PRN LORAZEPAM 18234404131 Active Jonel Hemphill MD Active GABAPENTIN 400 MG ORAL CAPS 1 TAB BY MOUTH THREE TIMES DAILY GABAPENTIN 67596334972 Active Jonel Hemphill MD Active GABAPENTIN 300 MG CAPS 1 CAP PO TID GABAPENTIN 68465363899 No Longer Active Jonel Hemphill MD Active DILANTIN 100 MG ORAL CAPS 1 THREE TIMES DAILY FOR SEIZURES PHENYTOIN SODIUM EXTENDED 45855699695 Active Marleni Romero Active CPAP APPLY AT HS CPAP Active Jonel Hemphill MD Active METOPROLOL TARTRATE 50 MG ORAL TABS 1 TAB BY MOUTH TWICE DAILY METOPROLOL TARTRATE 01690339505 Active Jonel Hemphill MD Active LISINOPRIL 40 MG TABS 1 tablet by mouth twice daily, for blood pressure 03/31 LISINOPRIL 06563396672 Active Jonel Hemphill MD Active BUPROPION HCL ER (SR) 150 MG [id number] 1 twice a day for depression BUPROPION HCL 85815619882 Active Jonel Hemphill MD Active MULTIVITAMINS CAPS 1 DAILY MULTIPLE VITAMIN 75750287140 Active Jonel Hemphill MD Active ZYLOPRIM 300 MG TAB 1 BY MOUTH DAILY ALLOPURINOL 12416382125 Active Jonel Hemphill MD Active HYDROCODONE-ACETAMINOPHEN 7.5-325 MG TABS 1 q 6 hrs prn HYDROCODONE-ACETAMINOPHEN 15059074585 No Longer Active Jonel Hemphill MD Active DILANTIN 100 MG CAPS 3 cap tid PHENYTOIN SODIUM EXTENDED 77190414176 No Longer Active Jonel Hemphill MD Active BUDEPRION SR 150 MG [id number] 1 bid BUPROPION HCL 84379864425 No Longer Active Jonel Hemphill MD Active ALLOPURINOL 300 MG TABS 1 qd ALLOPURINOL 33486785343 No Longer Active Jonel Hemphill MD Active COZAAR 100 MG TABS 1 qd LOSARTAN POTASSIUM 32017608696 No Longer Active Jonel Hemphill MD Active CVS VITAMIN C 500 MG TABS 1 po daily ASCORBIC ACID 94310776901 No Longer Active Jonel Hemphill MD Active MIRALAX POWD 17 gms in 4 oz water or juice daily POLYETHYLENE GLYCOL 3350 71447370682 No Longer Active Jonel Hemphill MD Active POTASSIUM CHLORIDE CHELA ER 20 MEQ CR-TABS 1 tab PO daily POTASSIUM CHLORIDE CHELA CR 02297876698 No Longer Active Jonel Hemphill MD Active AMBIEN 10 MG TAB 1 tab by mouth at bedtime as needed for sleep ZOLPIDEM TARTRATE 00894563082 No Longer Active Jonel Hemphill MD Active SULFAMETHOXAZOLE-TMP DS 800-160 MG TABS 1 TAB PO BID SULFAMETHOXAZOLE-TRIMETHOPRIM 43508696159 No Longer Active Jonel Hemphill MD Active NORCO 5-325 MG TABS 1-2 TAB Q 6 HRS PRN HYDROCODONE- ACETAMINOPHEN 46856905897 Active Jonel Hemphill MD Active LEVEMIR 100 UNIT/ML SOLN 5 units sub-q at bedtime INSULIN DETEMIR 09661790131 No Longer Active Tova Perez Active MOBIC 15 MG TABS 1 tab PO daily for arthritis pain MELOXICAM 92046748722 No Longer Active Tova Perez Active GLUCAGEN 1 MG SOLR INJECT 1MG IM IF BS LESS THAN 60 & RES. IS UNABLE TO SWALLOW GLUCAGON HCL (RDNA) 31543886209 No Longer Active Tova Perez Active CVS MILK OF MAGNESIA 1200 MG/15ML SUSP 30 ml daily for constipation MAGNESIUM HYDROXIDE 67541653343 No Longer Active Tova Perez Active IMDUR 120 MG [id number] 1 qd ISOSORBIDE MONONITRATE 84463195449 No Longer Active Tova Perez Active PHENYTOIN 50 MG CHEW 1 TAB PO BID PHENYTOIN 82778116456 Active Tova Perez Active MECLIZINE HCL 25 MG CHEW TAB 1 four times a day as needed for dizziness 02/21 MECLIZINE HCL 35075289555 Active Tova Perez Active NEURONTIN 400 MG CAPS Take one by mouth 3 times daily, morning, afternoon and evening.] GABAPENTIN 76857321067 No Longer Active Tova Perez Active ANTIVERT 25 MG TABS 1 q 6 hrs prn MECLIZINE HCL 77257790466 No Longer Active Jonel Hemphill MD Active CLONIDINE HCL 0.2 MG TABS 1 q 8 hrs as needed -greater than 160-htn CLONIDINE HCL 20970345805 No Longer Active Jonel Hemphill MD Active AMBIEN 10 MG TABS 1 q hs prn ZOLPIDEM TARTRATE 39162136380 No Longer Active Jonel Hemphill MD Active GNP THERAPEUTIC-M TABS 1 qd MULTIPLE VITAMINS- MINERALS 59823920745 No Longer Active Jonel Hemphill MD Active METOPROLOL TARTRATE 50 MG TABS 1 bid METOPROLOL TARTRATE 55078478824 No Longer Active Jonel Hemphill MD Active METFORMIN HCL 500 MG TABS 1 bod with food METFORMIN HCL 17942099532 No Longer Active Jonel Hemphill MD Active LISINOPRIL 40 MG TABS 1 qd LISINOPRIL 68455170208 No Longer Active Jonel Hemphill MD Active HYDROCHLOROTHIAZIDE 25 MG TABS 1 qd HYDROCHLOROTHIAZIDE 74625410503 No Longer Active Jonel Hemphill MD Active DURAGESIC-25 25 MCG/HR PT72 place 1 patch on the skin q72hrs for pain FENTANYL 18223829548 No Longer Active Jonel Hemphill MD Active FENTANYL 75 MCG/HR PT72 place 1 patch on skin q72hrs fr pain 2012 FENTANYL 16203664307 No Longer Active Jonel Hemphill MD Active LASIX 20 MG TABS 1 tab PO q morning FUROSEMIDE 35371904657 Active Jonel Hemphill MD Active FUROSEMIDE 40 MG TABS 1 q am FUROSEMIDE 32678193375 No Longer Active Jonel Hemphill MD Active HEPARIN (PORCINE) LOCK FLUSH 100 UNIT/ML SOLN Flush port a cath monthly every three week on with Heparin and NS HEPARIN LOCK FLUSH 04019460430 Active Jonel Hemphill MD Active FENTANYL 100 MCG/HR PT72 Apply every 3 days FENTANYL 73164753588 Active Mattie Gates APRN Active FENTANYL 25 MCG/HR PT72 Apply to clean skin and change every 72 hours. 07/03 FENTANYL 43711150784 No Longer Active Jonel Hemphill MD Active FENTANYL 50 MCG/HR PT72 place 1 patch on skin q72 hours FENTANYL 65893810001 No Longer Active Mayco Shah APRN Active CELEXA 20 MG TABS Take 1 tablet 1x daily CITALOPRAM HYDROBROMIDE 89296503038 Active Jonel Hemphill MD Active DURAGESIC-12 12 MCG/HR PT72 APPLY PATCH TO SKIN AND CHANGE EVERY 72 HOURS, ROTATE SITES FENTANYL 40630165231 No Longer Active Fozia HERNANDEZ Active FUROSEMIDE 20 MG TABS 1 qd FUROSEMIDE 02364551203 No Longer Active Mahogany Lewis Active ADULT ASPIRIN EC LOW STRENGTH 81 MG TBEC 1 qd ASPIRIN 44713980127 Active MARY Perez Active FUROSEMIDE 20 MG TABS 1 qd FUROSEMIDE 20 MG TABS 206128 FUROSEMIDE Inactive DURAGESIC-12 12 MCG/HR PT72 APPLY PATCH TO SKIN AND CHANGE EVERY 72 HOURS, ROTATE SITES DURAGESIC-12 12 MCG/HR PT72 258960 FENTANYL Inactive FENTANYL 50 MCG/HR PT72 place 1 patch on skin q72 hours FENTANYL 50 MCG/HR PT72 283440 FENTANYL Inactive FUROSEMIDE 40 MG TABS 1 q am FUROSEMIDE 40 MG TABS 507580 FUROSEMIDE Inactive FENTANYL 75 MCG/HR PT72 place 1 patch on skin q72hrs fr pain 2012 FENTANYL 75 MCG/HR PT72 459061 FENTANYL Inactive DURAGESIC-25 25 MCG/HR PT72 place 1 patch on the skin q72hrs for pain DURAGESIC-25 25 MCG/HR PT72 873327 FENTANYL Inactive HYDROCHLOROTHIAZIDE 25 MG TABS 1 qd HYDROCHLOROTHIAZIDE 25 MG TABS 502856 HYDROCHLOROTHIAZIDE Inactive LISINOPRIL 40 MG TABS 1 qd LISINOPRIL 40 MG TABS 331276 LISINOPRIL Inactive METFORMIN HCL 500 MG TABS 1 bod with food METFORMIN HCL 500 MG TABS 547827 METFORMIN HCL Inactive METOPROLOL TARTRATE 50 MG TABS 1 bid METOPROLOL TARTRATE 50 MG TABS 669063 METOPROLOL TARTRATE Inactive GNP THERAPEUTIC-M TABS 1 qd GNP THERAPEUTIC-M TABS MULTIPLE VITAMINS-MINERALS Inactive AMBIEN 10 MG TABS 1 q hs prn AMBIEN 10 MG TABS 218005 ZOLPIDEM TARTRATE Inactive CLONIDINE HCL 0.2 MG TABS 1 q 8 hrs as needed -greater than 160-htn CLONIDINE HCL 0.2 MG TABS 250345 CLONIDINE HCL Inactive ANTIVERT 25 MG TABS 1 q 6 hrs prn ANTIVERT 25 MG TABS MECLIZINE HCL Inactive NEURONTIN 400 MG CAPS Take one by mouth 3 times daily, morning, afternoon and evening.] NEURONTIN 400 MG CAPS 955908 GABAPENTIN Inactive IMDUR 120 MG [id number] 1 qd IMDUR 120 MG [id number] ISOSORBIDE MONONITRATE Inactive CVS MILK OF MAGNESIA [...] for arthritis pain MOBIC 15 MG TABS 042000 MELOXICAM Inactive LEVEMIR 100 UNIT/ML SOLN 5 units sub-q at bedtime LEVEMIR 100 UNIT/ML SOLN INSULIN DETEMIR Inactive SULFAMETHOXAZOLE-TMP DS 800-160 MG TABS 1 TAB PO BID SULFAMETHOXAZOLE-TMP DS 800-160 MG TABS 458995 SULFAMETHOXAZOLE-TRIMETHOPRIM Inactive AMBIEN 10 MG TAB 1 tab by mouth at bedtime as needed for sleep AMBIEN 10 MG TAB 544368 ZOLPIDEM TARTRATE Inactive POTASSIUM CHLORIDE CHELA ER 20 MEQ CR-TABS 1 tab PO daily POTASSIUM CHLORIDE CHELA ER 20 MEQ CR-TABS POTASSIUM CHLORIDE CHELA CR Inactive MIRALAX POWD 17 gms in 4 oz water or juice daily MIRALAX POWD 325149 POLYETHYLENE GLYCOL 3350 Inactive CVS VITAMIN C 500 MG TABS 1 po daily CVS VITAMIN C 500 MG TABS 461654 ASCORBIC ACID Inactive COZAAR 100 MG TABS 1 qd COZAAR 100 MG TABS 543594 LOSARTAN POTASSIUM Inactive ALLOPURINOL 300 MG TABS 1 qd ALLOPURINOL 300 MG TABS 894707 ALLOPURINOL Inactive BUDEPRION SR 150 MG [id number] 1 bid BUDEPRION SR 150 MG [id number] BUPROPION HCL Inactive DILANTIN 100 MG CAPS 3 cap tid DILANTIN 100 MG CAPS 009403 PHENYTOIN SODIUM EXTENDED Inactive HYDROCODONE-ACETAMINOPHEN 7.5-325 MG TABS 1 q 6 hrs prn HYDROCODONE-ACETAMINOPHEN 7.5-325 MG TABS 244900 HYDROCODONE- ACETAMINOPHEN Inactive GABAPENTIN 300 MG CAPS 1 CAP PO TID GABAPENTIN 300 MG CAPS 518801 GABAPENTIN Inactive FENTANYL 25 MCG/HR PT72 Apply to clean skin and change every 72 hours. 07/03 FENTANYL 25 MCG/HR PT72 278038 FENTANYL Inactive Advance Directives Directive Description Start [...] 13 U/L alkaline phosphatase, serum 51 U/L creatinine, serum 0.85 mg/dL blood glucose 187 mg/dL potassium, serum 4.6 mmol/L sodium, serum 144 mmol/L aspartate aminotransferase (SGOT), serum 33 U/L alanine aminotransferase (SGPT), serum 42 U/L alkaline phosphatase, serum 60 U/L hemoglobin A1C, blood, as % of total hemoglobin 7.2 % sodium, serum 139 mmol/L alkaline phosphatase, serum [...] 4.3-6.0 Encounters Code Encounter Date Provider Facility CPT-02945 Level 3 Est. Patient 17:30:47 CDT Kevin Link MD [facility] CPT-43792 Level 3 Est. Patient 18:04:07 CDT Jonel Hemphill MD [facility] CPT-26741 Level 3 Est. Patient 17:18:03 CDT Jonel Hemphill MD [facility]-93293 Level 3 Est. Patient 21:58:03 [employer] Jonel Hemphill MD [facility] CPT-56250 Level 4 Est. Patient 18:03:14 CDT Jonel Yeager [facility]-91602 Level 4 Est. Patient 13:24:53 CDT Jonel Yeager [facility]-62181 Level 4 Est. Patient 09:15:44 CDT Jonel Yeager [facility]-32854 Level 4 Est. Patient 19:16:[address] [facility] CPT-34072 Level 4 Est. Patient 11:25:16 CDT Jonel Hemphill MD [facility] CPT-89427 Level 4 Est. Patient 09:00:40 CDT Jonel Hemphill MD [facility]-25562 Level 4 Est. Patient 14:53:58 CDT Jonel Hemphill MD [facility]-64474 Level 4 Est. Patient 22:59:01 CDT Jonel Hemphill MD [facility]-18285 Level 4 Est. Patient 09:29:57 CDT Jonel Hemphill MD [facility]-52915 Level 4 Est. Patient 12:35:53 [employer] Jonel Hemphill MD [facility]-08154 Level 4 Est. Patient 22:36:09 [employer] Jonel Hemphill MD [facility]-61724 Level 2 Est. Patient 15:14:15 [employer] Mayco Shah APRN [facility] CPT-69656 Level 4 Est. Patient 10:36:22 [employer] Jonel Hemphill MD [facility] CPT-30680 Level 4 Est. Patient 22:01:13 [employer] Jonel Hemphill MD [facility]-01891 Level 3 Est. Patient 21:50:37 [employer] Jonel Hemphill MD [facility] CPT-61391 Level 4 Est. Patient 15:02:43 CDT Rubin Pierre MD [facility] CPT-90552 Level 4 Est. Patient 14:27:35 CDT Jonel Hemphill MD [facility]-70110 Level 4 Est. Patient 12:41:17 CDT Jonel Hemphill MD [facility]-90853 Level 4 Est. Patient 16:18:55 CDT Jonel Hemphill MD [facility]-53578 Level 4 Est. Patient 17:58:05 CDT Jonel Hemphill MD [facility] CPT-98105 Level 4 Est. Patient 22:10:06 CDT Jonel Hemphill MD [facility] CPT-63060 Level 4 Est. Patient 13:22:09 CDT Jonel Hemphill MD [facility] CPT-09434 Level 4 Est. Patient 22:52:17 [employer] Jonel Hemphill MD [facility] CPT-55494 Level 3 Est. Patient 22:34:10 [employer] Jonel Hemphill MD [facility] CPT-65780 Level 4 Est. Patient 07:49:20 [employer] Jonel Hemphill MD [facility] Skilled CPT-93612 Level 3 Est. Patient 08:28:27 [employer] Jonel Hemphill MD [facility] Procedures Code Procedure Name Date Entry Date Standard Description CPT-25266 Level 3 Care Home 17:42:11 CDT CPT-94452 Level 3 Care Home 16:04:10 CDT CPT-57450 Level 3 Care Home 19:38:15 [employer] CPT-62414 Level 3 Care Home 19:28:48 [employer] CPT-02597 Level 3 Care Home 18:02:20 [employer] CPT-89304 Level 3 Care Home 15:02:14 [employer] CPT-05579 Level 3 Care Home 12:25:37 CDT CPT-32786 Level 3 Care Home 12:48:39 CDT CPT-86740 Level 3 Care Home 17:39:14 CDT CPT-64626 Level 3 Care Home 13:32:58 CDT CPT-79222 Level 3 Care Home 17:43:43 CDT CPT-04902 Level 3 Care Home 12:03:33 [employer] CPT-90437 Level 3 Care Home 18:47:28 [employer] CPT-50806 Level 3 Care Home 17:35:26 [employer] CPT-69915 Level 3 Care Home 18:44:49 [employer] CPT-74657 Level 3 Care Home 18:17:33 CDT CPT-67728 Level 3 Care Home 09:25:33 CDT CPT-92812 Level 3 Care Home 19:11:57 CDT CPT-50220 Level 3 Care Home 09:25:52 CDT CPT-17487 Level 3 Care Home 14:23:59 CDT CPT-85054 Level 3 Care Home 12:09:43 CDT CPT-94097 Level 3 Care Home 09:37:40 CDT CPT-79160 Level 3 Care Home 18:23:02 CDT CPT-20508 Level 3 Care Home 14:09:06 CDT CPT-40691 Level 3 Care Home 12:43:27 [employer] CPT-33871 Postop F/U Visit 14:10:15 [employer] CPT-67310 [facility] 17:07:14 [employer] CPT-06980 Level 3 Care Home 16:14:37 [employer] CPT-96482 Port a cath flush 11:47:42 CDT CPT-87665 Port a cath flush 08:29:49 CDT CPT-OV Office Visit 14:27:58 [employer]
--- OUTSIDE RECORDS SUMMARY | 2016-08-07 12:55 | XMS REPORT | Clinical Summary ---
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 V58.69 Resolved Jonel Hemphill MD Long-term (current) [...] Coronary atherosclerosis of unspecified type of vessel, tazlina or graft FH DIABETES V18.0 Resolved Jonel [...] Coronary atherosclerosis of unspecified type of vessel, tazlina or graft CONSTIPATION 564.00 Resolved Jonel Hemphill [...] Obstructive sleep apnea (adult) (pediatric) 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 USE, DATA SECURITY ADMINISTRATOR ICD-V58.69 Inactive Jonel Hemphill MD DIABETES, TYPE [...] 1 tablet by mouth daily CITALOPRAM HYDROBROMIDE 36137369842 Active Marleni Romero Active ZOFRAN 4 MG TABS 1 po q6hr PRN Nausea ONDANSETRON HCL 94953978469 Active Jonel Hemphill MD Active XARELTO 20 MG ORAL TABS 1 daily RIVAROXABAN 72898555540 Active Jonel Hemphill MD Active JANUVIA 100 MG ORAL TABS 2 tabs daily SITAGLIPTIN PHOSPHATE 04410563070 Active Jonel Hemphill MD Active CELEXA 20 MG TABS Take 1 tablet 1x daily CITALOPRAM HYDROBROMIDE 11034059491 No Longer Active Jonel Hemphill MD Active ATIVAN 0.5 MG TABS Take 1 tablet 2x daily PRN LORAZEPAM 46281109367 No Longer Active Jonel Hemphill MD Active FUROSEMIDE 80 MG ORAL TABS 1 daily FUROSEMIDE 02525764810 Active Jonel Hemphill MD Active MECLIZINE HCL 25 MG CHEW TAB 1 four times a day as needed for dizziness 02/21 MECLIZINE HCL 71417849176 No Longer Active Jonel Hemphill MD Active ZYLOPRIM 300 MG TAB 1 BY MOUTH DAILY ALLOPURINOL 46938274103 No Longer Active Jonel Hemphill MD Active METOPROLOL TARTRATE 50 MG ORAL TABS 1 TAB BY MOUTH TWICE DAILY METOPROLOL TARTRATE 60163711482 No Longer Active Jonel Hemphill MD Active GABAPENTIN 400 MG ORAL CAPS 1 TAB BY MOUTH THREE TIMES DAILY 2015 GABAPENTIN 33349985813 No Longer Active Jonel Hemphill MD Active ULORIC 40 MG ORAL TABS 1 daily for gout. FEBUXOSTAT 69212593522 Active Marleni Romero Active HYDROCODONE-ACETAMINOPHEN 7.5-325 MG TABS 1 TAB PO Q 6 HRS PRN HYDROCODONE-ACETAMINOPHEN 45443137543 Active Jonel Hemphill MD Active METFORMIN HCL 1000 MG TABS 1 tablet by mouth twice daily METFORMIN HCL 73670233381 Active Marleni Romero Active FENTANYL 12 MCG/HR PT72 Apply to clean, dry skin and change every 72 hours FENTANYL 32730103322 Active Jonel Hemphill MD Active KLOR-CON 20 MEQ ORAL PACK 1 BY MOUTH DAILY POTASSIUM CHLORIDE 36475405979 Active Marleni Romero Active A+D FIRST AID EXT OINT APPLY OINTMENT AND RUFINO WRAPS TO LOWER EXTEREMETIES DAILY SKIN PROTECTANTS, MISC. 65607828550 Active Jonel Hemphill MD Active NYSTATIN 242189 UNIT/GM EXT OINT APPLY PRN TID TO GAULDING/RASH IN ABDOMINAL FOLDS NYSTATIN 87223670151 Active Jonel Hemphill MD Active GABAPENTIN 300 MG CAPS 1 CAP PO TID GABAPENTIN 12055910654 No Longer Active Jonel Hemphill MD Active DILANTIN 100 MG ORAL CAPS 1 THREE TIMES DAILY FOR SEIZURES PHENYTOIN SODIUM EXTENDED 21392262933 Active Marleni Tenoriokristin Active CPAP APPLY AT HS CPAP Active Jonel Hemphill MD Active LISINOPRIL 40 MG TABS 1 tablet by mouth twice daily, for blood pressure 03/31 LISINOPRIL 37707913573 Active Jonel Hemphill MD Active BUPROPION HCL ER (SR) 150 MG [id number] 1 twice a day for depression BUPROPION HCL 64131040010 Active Jonel Hemphill MD Active MULTIVITAMINS CAPS 1 DAILY MULTIPLE VITAMIN 73717692358 Active Jonel Hemphill MD Active HYDROCODONE-ACETAMINOPHEN 7.5-325 MG TABS 1 q 6 hrs prn HYDROCODONE-ACETAMINOPHEN 92750311627 No Longer Active Jonel Hemphill MD Active DILANTIN 100 MG CAPS 3 cap tid PHENYTOIN SODIUM EXTENDED 64217308236 No Longer Active Jonel Hemphill MD Active BUDEPRION SR 150 MG [id number] 1 bid BUPROPION HCL 79638567553 No Longer Active Jonel Hemphill MD Active ALLOPURINOL 300 MG TABS 1 qd ALLOPURINOL 22666880561 No Longer Active Jonel Hemphill MD Active COZAAR 100 MG TABS 1 qd LOSARTAN POTASSIUM 41697247883 No Longer Active Jonel Hemphill MD Active CVS VITAMIN C 500 MG TABS 1 po daily ASCORBIC ACID 45784144594 No Longer Active Jonel Hemphill MD Active MIRALAX POWD 17 gms in 4 oz water or juice daily POLYETHYLENE GLYCOL 3350 60201198769 No Longer Active Jonel Hemphill MD Active POTASSIUM CHLORIDE CHELA ER 20 MEQ CR-TABS 1 tab PO daily POTASSIUM CHLORIDE CHELA CR 94212432469 No Longer Active Jonel Hemphill MD Active AMBIEN 10 MG TAB 1 tab by mouth at bedtime as needed for sleep ZOLPIDEM TARTRATE 91672199592 No Longer Active Jonel Hemphill MD Active SULFAMETHOXAZOLE-TMP DS 800-160 MG TABS 1 TAB PO BID SULFAMETHOXAZOLE-TRIMETHOPRIM 31343257231 No Longer Active Jonel Hemphill MD Active NORCO 5-325 MG TABS 1-2 TAB Q 6 HRS PRN HYDROCODONE- ACETAMINOPHEN 59279502247 Active Jonel Hemphill MD Active LEVEMIR 100 UNIT/ML SOLN 5 units sub-q at bedtime INSULIN DETEMIR 61142005285 No Longer Active Tova Perez Active MOBIC 15 MG TABS 1 tab PO daily for arthritis pain MELOXICAM 21607613819 No Longer Active Tova Perez Active GLUCAGEN 1 MG SOLR INJECT 1MG IM IF BS LESS THAN 60 & RES. IS UNABLE TO SWALLOW GLUCAGON HCL (RDNA) 34288941650 No Longer Active Tova Perez Active CVS MILK OF MAGNESIA 1200 MG/15ML SUSP 30 ml daily for constipation MAGNESIUM HYDROXIDE 32451388152 No Longer Active Tova Perez Active IMDUR 120 MG QT11Y-PHS 1 qd ISOSORBIDE MONONITRATE 82364723846 No Longer Active Tova Perez Active PHENYTOIN 50 MG CHEW 1 TAB PO BID PHENYTOIN 85510425200 Active Tova Perez Active NEURONTIN 400 MG CAPS Take one by mouth 3 times daily, morning, afternoon and evening.] GABAPENTIN 59402706240 No Longer Active Tova Perez Active ANTIVERT 25 MG TABS 1 q 6 hrs prn MECLIZINE HCL 84884618611 No Longer Active Jonel Hemphill MD Active CLONIDINE HCL 0.2 MG TABS 1 q 8 hrs as needed -greater than 160-htn CLONIDINE HCL 03548363891 No Longer Active Jonel Hemphill MD Active AMBIEN 10 MG TABS 1 q hs prn ZOLPIDEM TARTRATE 54818854782 No Longer Active Jonel Hemphill MD Active GNP THERAPEUTIC-M TABS 1 qd MULTIPLE VITAMINS- MINERALS 54142059724 No Longer Active Jonel Hemphill MD Active METOPROLOL TARTRATE 50 MG TABS 1 bid METOPROLOL TARTRATE 74786596765 No Longer Active Jonel Hemphill MD Active METFORMIN HCL 500 MG TABS 1 bod with food METFORMIN HCL 20725049519 No Longer Active Jonel Hemphill MD Active LISINOPRIL 40 MG TABS 1 qd LISINOPRIL 12392542291 No Longer Active Jonel Hemphill MD Active HYDROCHLOROTHIAZIDE 25 MG TABS 1 qd HYDROCHLOROTHIAZIDE 00347544608 No Longer Active Jonel Hemphill MD Active DURAGESIC-25 25 MCG/HR PT72 place 1 patch on the skin q72hrs for pain FENTANYL 64680994371 No Longer Active Jonel Hemphill MD Active FENTANYL 75 MCG/HR PT72 place 1 patch on skin q72hrs fr pain 2012 FENTANYL 45701261566 No Longer Active Jonel Hemphill MD Active FUROSEMIDE 40 MG TABS 1 q am FUROSEMIDE 55057938245 No Longer Active Jonel Hemphill MD Active HEPARIN (PORCINE) LOCK FLUSH 100 UNIT/ML SOLN Flush port a cath monthly every three week on with Heparin and NS HEPARIN LOCK FLUSH 52613200009 Active Jonel Hemphill MD Active FENTANYL 100 MCG/HR PT72 Apply every 3 days FENTANYL 40773060875 Active Jonel Hemphill MD Active FENTANYL 25 MCG/HR PT72 Apply to clean skin and change every 72 hours. 07/03 FENTANYL 27949457874 No Longer Active Jonel Hemphill MD Active FENTANYL 50 MCG/HR PT72 place 1 patch on skin q72 hours FENTANYL 28827750273 No Longer Active Mayco Shah APRN Active DURAGESIC-12 12 MCG/HR PT72 APPLY PATCH TO SKIN AND CHANGE EVERY 72 HOURS, ROTATE SITES FENTANYL 41858453845 No Longer Active Fozia HERNANDEZ Active FUROSEMIDE 20 MG TABS 1 qd FUROSEMIDE 69100200036 No Longer Active Mahogany Bolivar Active ADULT ASPIRIN EC LOW STRENGTH 81 MG TBEC 1 qd ASPIRIN 93734005446 Active MARY Perez Active FUROSEMIDE 20 MG TABS 1 qd FUROSEMIDE 20 MG TABS 507635 FUROSEMIDE Inactive DURAGESIC-12 12 MCG/HR PT72 APPLY PATCH TO SKIN AND CHANGE EVERY 72 HOURS, ROTATE SITES DURAGESIC-12 12 MCG/HR PT72 313969 FENTANYL Inactive FENTANYL 50 MCG/HR PT72 place 1 patch on skin q72 hours FENTANYL 50 MCG/HR PT72 439131 FENTANYL Inactive FUROSEMIDE 40 MG TABS 1 q am FUROSEMIDE 40 MG TABS 426685 FUROSEMIDE Inactive FENTANYL 75 MCG/HR PT72 place 1 patch on skin q72hrs fr pain 2012 FENTANYL 75 MCG/HR PT72 907284 FENTANYL Inactive DURAGESIC-25 25 MCG/HR PT72 place 1 patch on the skin q72hrs for pain DURAGESIC-25 25 MCG/HR PT72 500867 FENTANYL Inactive HYDROCHLOROTHIAZIDE 25 MG TABS 1 qd HYDROCHLOROTHIAZIDE 25 MG TABS 618871 HYDROCHLOROTHIAZIDE Inactive LISINOPRIL 40 MG TABS 1 qd LISINOPRIL 40 MG TABS 328776 LISINOPRIL Inactive METFORMIN HCL 500 MG TABS 1 bod with food METFORMIN HCL 500 MG TABS 594002 METFORMIN HCL Inactive METOPROLOL TARTRATE 50 MG TABS 1 bid METOPROLOL TARTRATE 50 MG TABS 313231 METOPROLOL TARTRATE Inactive GNP THERAPEUTIC-M TABS 1 qd GNP THERAPEUTIC-M TABS MULTIPLE VITAMINS-MINERALS Inactive AMBIEN 10 MG TABS 1 q hs prn AMBIEN 10 MG TABS 093622 ZOLPIDEM TARTRATE Inactive CLONIDINE HCL 0.2 MG TABS 1 q 8 hrs as needed -greater than 160-htn CLONIDINE HCL 0.2 MG TABS 150464 CLONIDINE HCL Inactive ANTIVERT 25 MG TABS 1 q 6 hrs prn ANTIVERT 25 MG TABS MECLIZINE HCL Inactive NEURONTIN 400 MG CAPS Take one by mouth 3 times daily, morning, afternoon and evening.] NEURONTIN 400 MG CAPS 337185 GABAPENTIN Inactive IMDUR 120 MG [id number] 1 qd IMDUR 120 MG [id number] ISOSORBIDE MONONITRATE Inactive CVS MILK OF MAGNESIA [...] for arthritis pain MOBIC 15 MG TABS 569883 MELOXICAM Inactive LEVEMIR 100 UNIT/ML SOLN 5 units sub-q at bedtime LEVEMIR 100 UNIT/ML SOLN INSULIN DETEMIR Inactive SULFAMETHOXAZOLE-TMP DS 800-160 MG TABS 1 TAB PO BID SULFAMETHOXAZOLE-TMP DS 800-160 MG TABS 423941 SULFAMETHOXAZOLE-TRIMETHOPRIM Inactive AMBIEN 10 MG TAB 1 tab by mouth at bedtime as needed for sleep AMBIEN 10 MG TAB 299870 ZOLPIDEM TARTRATE Inactive POTASSIUM CHLORIDE CHELA ER 20 MEQ CR-TABS 1 tab PO daily POTASSIUM CHLORIDE CHELA ER 20 MEQ CR-TABS POTASSIUM CHLORIDE CHELA CR Inactive MIRALAX POWD 17 gms in 4 oz water or juice daily MIRALAX POWD 605051 POLYETHYLENE GLYCOL 3350 Inactive CVS VITAMIN C 500 MG TABS 1 po daily CVS VITAMIN C 500 MG TABS 348237 ASCORBIC ACID Inactive COZAAR 100 MG TABS 1 qd COZAAR 100 MG TABS 177282 LOSARTAN POTASSIUM Inactive ALLOPURINOL 300 MG TABS 1 qd ALLOPURINOL 300 MG TABS 675926 ALLOPURINOL Inactive BUDEPRION SR 150 MG [id number] 1 bid BUDEPRION SR 150 MG [id number] BUPROPION HCL Inactive DILANTIN 100 MG CAPS 3 cap tid DILANTIN 100 MG CAPS 231670 PHENYTOIN SODIUM EXTENDED Inactive HYDROCODONE-ACETAMINOPHEN 7.5-325 MG TABS 1 q 6 hrs prn HYDROCODONE-ACETAMINOPHEN 7.5-325 MG TABS 653600 HYDROCODONE- ACETAMINOPHEN Inactive GABAPENTIN 300 MG CAPS 1 CAP PO TID GABAPENTIN 300 MG CAPS 663958 GABAPENTIN Inactive GABAPENTIN 400 MG ORAL CAPS 1 TAB BY MOUTH THREE TIMES DAILY 2015 GABAPENTIN 400 MG ORAL CAPS 042022 GABAPENTIN Inactive METOPROLOL TARTRATE 50 MG ORAL TABS 1 TAB BY MOUTH TWICE DAILY METOPROLOL TARTRATE 50 MG ORAL TABS 025031 METOPROLOL TARTRATE Inactive ZYLOPRIM 300 MG TAB 1 BY MOUTH DAILY ZYLOPRIM 300 MG TAB 026084 ALLOPURINOL Inactive MECLIZINE HCL 25 MG CHEW TAB 1 four times a day as needed for dizziness 02/21 MECLIZINE HCL 25 MG CHEW TAB 582801 MECLIZINE HCL Inactive ATIVAN 0.5 MG TABS Take 1 tablet 2x daily PRN ATIVAN 0.5 MG TABS 279830 LORAZEPAM Inactive CELEXA 20 MG TABS Take 1 tablet 1x daily CELEXA 20 MG TABS 439575 CITALOPRAM HYDROBROMIDE Inactive FENTANYL 25 MCG/HR PT72 Apply to clean skin and change every 72 hours. 07/03 FENTANYL 25 MCG/HR PT72 902075 FENTANYL Inactive Advance Directives Directive Description Start [...] 10*3/mm3 Encounters Code Encounter Date Provider Facility CPT-54461 Level 3 Est. Patient 19:05:03 CDT Jonel Hemphill MD [facility]-83027 Level 3 Est. Patient 17:30:47 CDT Kevin Link MD [facility]-88869 Level 3 Est. Patient 18:04:07 CDT Jonel Hemphill MD [facility] CPT-84083 Level 3 Est. Patient 17:18:03 CDT Jonel Hemphill MD [facility] CPT-82503 Level 3 Est. 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 Patient 18:03:14 CDT Jonel Hemphill MD [facility]-62158 Level 4 Est. Patient 13:24:53 CDT Jonel Hemphill MD [facility]-36801 Level 4 Est. Patient 09:15:44 CDT Jonel Hemphill MD [facility]-68255 Level 4 Est. Patient 19:16:01 CDT Jonel Yeager of [facility]-52353 Level 4 Est. Patient 11:25:16 CDT Jonel Hemphill MD [facility] CPT-65850 Level 4 Est. Patient 09:00:40 CDT Jonel Hemphill MD [facility]-89623 Level 4 Est. Patient 14:53:58 CDT Jonel Hemphill MD [facility]-40593 Level 4 Est. Patient 22:59:01 CDT Jonel Hemphill MD [facility]-33313 Level 4 Est. Patient 09:29:57 CDT Jonel Hemphill MD [facility]-76208 Level 4 Est. Patient 12:35:53 SUPERVISOR [employer] Jonel Hemphill MD [facility] CPT-98373 Level 4 Est. Patient 22:36:09 SUPERVISOR [employer] Jonel Hemphill MD [facility]-79806 Level 2 Est. Patient 15:14:15 SUPERVISOR [employer] Mayco Shah APRN [facility] CPT-70394 Level 4 Est. Patient 10:36:22 SUPERVISOR [employer] Jonel Hemphill MD [facility] CPT-73204 Level 4 Est. Patient 22:01:13 SUPERVISOR [employer]ANG Jonel Hemphill MD [facility]-66727 Level 3 Est. Patient 21:50:37 SUPERVISOR [employer]ANG Jonel Hemphill MD [facility] CPT-76535 Level 4 Est. Patient 15:02:43 CDT Rubin Pierre MD [facility] CPT-53536 Level 4 Est. Patient 14:27:35 CDT Jonel Hemphill MD [facility]-14220 Level 4 Est. Patient 12:41:17 CDT Jonel Hemphill MD [facility]-71752 Level 4 Est. Patient 16:18:55 CDT Jonel Hemphill MD [facility]-96409 Level 4 Est. Patient 17:58:05 CDT Jonel Hemphill MD [facility]-99951 Level 4 Est. Patient 22:10:06 CDT Jonel Hemphill MD [facility]-27892 Level 4 Est. Patient 13:22:09 CDT Jonel Hemphill MD [facility]-66248 Level 4 Est. Patient 22:52:17 [employer]PERVIS[employer] Jonel Hemphill MD [facility]-60800 Level 3 Est. Patient 22:34:10 SUPERVISOR [employer] Jonel Hemphill MD [facility]-49772 Level 4 Est. Patient 07:49:20 SUPERVISOR [employer] Jonel Hemphill MD [facility] Skilled CPT-83836 Level 3 Est. Patient 08:28:27 SUPERVISOR [employer] Jonel Hemphill MD [facility] Procedures Code Procedure Name Date Entry Date Standard Description CPT-17200 Level 3 Long-Term 08:18:30 CDT CPT-45724 Level 3 Long-Term 19:03:14 CDT CPT-95256 Level 3 Long-Term 17:42:11 CDT CPT-55352 Level 3 Long-Term 16:04:10 CDT CPT-17105 Level 3 Long-Term 19:38:15 SUPERVISOR [employer] CPT-32456 Level 3 Long-Term 19:28:48 SUPERVISOR [employer] CPT-85703 Level 3 Long-Term 18:02:20 SUPERVISOR [employer] CPT-73048 Level 3 Long-Term 15:02:14 SUPERVISOR [employer] CPT-88455 Level 3 Long-Term 12:25:37 CDT CPT-94543 Level 3 Long-Term 12:48:39 CDT CPT-80381 Level 3 Long-Term 17:39:14 CDT CPT-79726 Level 3 Long-Term 13:32:58 CDT CPT-35472 Level 3 Long-Term 17:43:43 CDT CPT-47577 Level 3 Long-Term 12:03:33 SUPERVISOR [employer] CPT-87841 Level 3 Long-Term 18:47:28 SUPERVISOR [employer]ANG CPT-46945 Level 3 Long-Term 17:35:26 SUPERVISOR [employer]ANG CPT-24696 Level 3 Long-Term 18:44:49 SUPERVISOR [employer] CPT-89364 Level 3 Long-Term 18:17:33 CDT CPT-40485 Level 3 Long-Term 09:25:33 CDT CPT-08070 Level 3 Long-Term 19:11:57 CDT CPT-55165 Level 3 Long-Term 09:25:52 CDT CPT-82898 Level 3 Long-Term 14:23:59 CDT CPT-37646 Level 3 Long-Term 12:09:43 CDT CPT-35522 Level 3 Long-Term 09:37:40 CDT CPT-56360 Level 3 Long-Term 18:23:02 CDT CPT-35481 Level 3 Long-Term 14:09:06 CDT CPT-20000 Level 3 Long-Term 12:43:27 [employer]PER[employer]OR [employer] CPT-22134 Postop F/U Visit 14:10:15 [employer]PERVISOR [employer] CPT-67789 [facility] 17:07:14 [employer]PERVISOR [employer] CPT-57571 Level 3 Long-Term 16:14:37 [employer]PERVISOR [employer] CPT-64225 Port a cath flush 11:47:42 CDT CPT-99992 Port a cath flush 08:29:49 CDT CPT-OV Office Visit 14:27:58 [employer]PERVISOR [employer]
--- OUTSIDE RECORDS SUMMARY | 2016-08-07 12:56 | XMS REPORT | Clinical Summary ---
Author Author Admin, QIE Organization [facility] Address Unknown Phone Unavailable Allergies, Adverse Reactions, Alerts Allergy Name Reaction Description Start Date Severity Status Provider PENICILLIN Critical Active [place] Giles, RMA Conditions or Problems Problem Name [...] MD Benign essential hypertension 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 USE, DATA CONSULTANT V58.69 Resolved Jonel Hemphill MD Long-term [...] Coronary atherosclerosis of unspecified type of vessel, [place] or graft FH DIABETES V18.0 Resolved Jonel [...] Coronary atherosclerosis of unspecified type of vessel, [place] or graft CONSTIPATION 564.00 Resolved Jonel Hemphill [...] Hemphill MD Spasm of muscle 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 USE, FCI ICD-V58.69 Inactive Jonel Hemphill [...] Hemphill MD 10/25 Chest pain ICD-786.50 Inactive Jnoel Hemphill MD Hip pain, right ICD-719.45 Inactive Jonel Hemphill MD Bronchitis-Acute ICD-466.0 Inactive Jonel Hemphill MD Cellulitis, leg, right ICD-682.6 Inactive Jonel Hemphill MD Chest wall pain, acute ICD-786.52 Inactive Jonel Hemphill MD Medication List Medication Instructions Start Date Stop Date Generic Name NDC Status Provider Patient Instruction FENTANYL 12 MCG/HR PT72 Apply to clean, dry skin and change every 72 hours FENTANYL 84991598745 Active Jonel Hemphill MD Active MIRALAX POWD 17 gms in 4 oz water or juice daily POLYETHYLENE GLYCOL 3350 11955810649 Active Jonel Hemphill MD Active CVS MELATONIN 3 MG ORAL TABS 2 tabs at hs MELATONIN 16202679645 Active Jonel Hemphill MD Active MAGNESIUM GLUCONATE 500 MG ORAL TABS 1 tab twice daily MAGNESIUM GLUCONATE 04935940130 Active Jonel Hemphill MD Active OMEPRAZOLE 20 MG CPDR 1 tablet by mouth daily OMEPRAZOLE 18107084069 Active Jonel Hemphill MD Active DIGOXIN 125 MCG ORAL TABS 1 daily DIGOXIN 94683684648 Active Jonel Hemphill MD Active DILTIAZEM CD 240 MG ORAL [id number] 1 daily DILTIAZEM HCL COATED BEADS 98698527302 Active Jonel Hemphill MD Active NOVOLOG 100 UNIT/ML SC SOLN 70-140=0U 141-180=2 U 181-220=4U 221-260=6U 261- 300=8U 301-340=10U 900=457=48R 381-400=14U INSULIN ASPART 14889626337 Active Jonel Hemphill MD Active ACETAMINOPHEN 325 MG ORAL TABS 1 tab by mouth every 4 hours as needed ACETAMINOPHEN 88980096195 Active Jonel Hemphill MD Active FENTANYL 12 MCG/HR PT72 Apply to clean, dry skin and change every 72 hours FENTANYL 57147014136 No Longer Active Jonel Hemphill MD Active PHENYTOIN 50 MG CHEW 1 TAB PO BID PHENYTOIN 98224977709 No Longer Active Jonel Hemphill MD Active NORCO 5-325 MG TABS 1-2 TAB Q 6 HRS PRN HYDROCODONE- ACETAMINOPHEN 54818067612 No Longer Active Jonel Hemphill MD Active MULTIVITAMINS CAPS 1 DAILY MULTIPLE VITAMIN 97052375538 No Longer Active Jonel Hemphill MD Active BUPROPION HCL ER (SR) 150 MG [id number] 1 twice a day for depression BUPROPION HCL 10474940805 No Longer Active Jonel Hemphill MD Active LISINOPRIL 20 MG TABS 1 tablet by mouth daily LISINOPRIL 30690546142 Active Jonel Hemphill MD Active ULORIC 40 MG ORAL TABS 1 daily for gout. FEBUXOSTAT 92615834580 No Longer Active Jonel Hemphill MD Active CELEXA 20 MG TABS 1 tablet by mouth daily CITALOPRAM HYDROBROMIDE 69256998836 Active Marleni Raida Active ZOFRAN 4 MG TABS 1 po q6hr PRN Nausea ONDANSETRON HCL 32977331069 Active Jonel Hemphill MD Active XARELTO 20 MG ORAL TABS 1 daily RIVAROXABAN 73406627488 Active Jonel Hemphill MD Active JANUVIA 100 MG ORAL TABS 2 tabs daily SITAGLIPTIN PHOSPHATE 62930326370 Active Jonel Hemphill MD Active CELEXA 20 MG TABS Take 1 tablet 1x daily CITALOPRAM HYDROBROMIDE 69787798389 No Longer Active Jonel Hemphill MD Active ATIVAN 0.5 MG TABS Take 1 tablet 2x daily PRN LORAZEPAM 40983131986 No Longer Active Jonel Hemphill MD Active FUROSEMIDE 80 MG ORAL TABS 1 daily FUROSEMIDE 38037929995 Active Jonel Hemphill MD Active MECLIZINE HCL 25 MG CHEW TAB 1 four times a day as needed for dizziness 02/21 MECLIZINE HCL 19602888764 No Longer Active Jonel Hemphill MD Active ZYLOPRIM 300 MG TAB 1 BY MOUTH DAILY ALLOPURINOL 13940484224 No Longer Active Jonel Hemphill MD Active METOPROLOL TARTRATE 50 MG ORAL TABS 1 TAB BY MOUTH TWICE DAILY METOPROLOL TARTRATE 26379856236 No Longer Active Jonel Hemphill MD Active GABAPENTIN 400 MG ORAL CAPS 1 TAB BY MOUTH THREE TIMES DAILY 2015 GABAPENTIN 59050532416 No Longer Active Jonel Hemphill MD Active HYDROCODONE-ACETAMINOPHEN 7.5-325 MG TABS 1 TAB PO Q 6 HRS PRN HYDROCODONE-ACETAMINOPHEN 51085025503 Active Jonel Hemphill MD Active METFORMIN HCL 1000 MG TABS 1 tablet by mouth twice daily METFORMIN HCL 98540540445 Active Marleni Romero Active KLOR-CON 20 MEQ ORAL PACK 1 BY MOUTH DAILY POTASSIUM CHLORIDE 25874959523 Active Marleni Romero Active A+D FIRST AID EXT OINT APPLY OINTMENT AND RUFINO WRAPS TO LOWER EXTEREMETIES DAILY SKIN PROTECTANTS, MISC. 13209482051 Active Jonel Hemphill MD Active NYSTATIN 285531 UNIT/GM EXT OINT APPLY PRN TID TO GAULDING/RASH IN ABDOMINAL FOLDS NYSTATIN 52285002050 Active Jonel Hemphill MD Active GABAPENTIN 300 MG CAPS 1 CAP PO TID GABAPENTIN 87521342665 No Longer Active Jonel Hemphill MD Active DILANTIN 100 MG ORAL CAPS 1 THREE TIMES DAILY FOR SEIZURES PHENYTOIN SODIUM EXTENDED 73504397117 Active Marleni Romero Active CPAP APPLY AT HS CPAP Active Jonel Hemphill MD Active HYDROCODONE-ACETAMINOPHEN 7.5-325 MG TABS 1 q 6 hrs prn HYDROCODONE-ACETAMINOPHEN 49643672170 No Longer Active Jonel Hemphill MD Active DILANTIN 100 MG CAPS 3 cap tid PHENYTOIN SODIUM EXTENDED 80472942857 No Longer Active Jonel Hemphill MD Active BUDEPRION SR 150 MG [id number] 1 bid BUPROPION HCL 85928662458 No Longer Active Jonel Hemphill MD Active ALLOPURINOL 300 MG TABS 1 qd ALLOPURINOL 14345711114 No Longer Active Jonel Hemphill MD Active COZAAR 100 MG TABS 1 qd LOSARTAN POTASSIUM 62937110661 No Longer Active Jonel Hemphill MD Active CVS VITAMIN C 500 MG TABS 1 po daily ASCORBIC ACID 07027502310 No Longer Active Jonel Hemphill MD Active MIRALAX POWD 17 gms in 4 oz water or juice daily POLYETHYLENE GLYCOL 3350 17158891165 No Longer Active Jonel Hemphill MD Active POTASSIUM CHLORIDE CHELA ER 20 MEQ CR-TABS 1 tab PO daily POTASSIUM CHLORIDE CHELA CR 02168264977 No Longer Active Jonel Hemphill MD Active AMBIEN 10 MG TAB 1 tab by mouth at bedtime as needed for sleep ZOLPIDEM TARTRATE 48344467991 No Longer Active Jonel Hemphill MD Active SULFAMETHOXAZOLE-TMP DS 800-160 MG TABS 1 TAB PO BID SULFAMETHOXAZOLE-TRIMETHOPRIM 92394672278 No Longer Active Jonel Hemphill MD Active LEVEMIR 100 UNIT/ML SOLN 5 units sub-q at bedtime INSULIN DETEMIR 80764248189 No Longer Active Tova Perez Active MOBIC 15 MG TABS 1 tab PO daily for arthritis pain MELOXICAM 99531594816 No Longer Active Tova Perez Active GLUCAGEN 1 MG SOLR INJECT 1MG IM IF BS LESS THAN 60 & RES. IS UNABLE TO SWALLOW GLUCAGON HCL (RDNA) 71176684650 No Longer Active Tova Perez Active CVS MILK OF MAGNESIA 1200 MG/15ML SUSP 30 ml daily for constipation MAGNESIUM HYDROXIDE 76336621514 No Longer Active Tova Perez Active IMDUR 120 MG [id number] 1 qd ISOSORBIDE MONONITRATE 97976970459 No Longer Active Tova Perez Active NEURONTIN 400 MG CAPS Take one by mouth 3 times daily, morning, afternoon and evening.] GABAPENTIN 45513390090 No Longer Active Tova Perez Active ANTIVERT 25 MG TABS 1 q 6 hrs prn MECLIZINE HCL 40893104681 No Longer Active Jonel Hemphill MD Active CLONIDINE HCL 0.2 MG TABS 1 q 8 hrs as needed -greater than 160-htn CLONIDINE HCL 52842566062 No Longer Active Jonel Hemphill MD Active AMBIEN 10 MG TABS 1 q hs prn ZOLPIDEM TARTRATE 76406212842 No Longer Active Jonel Hemphill MD Active GNP THERAPEUTIC-M TABS 1 qd MULTIPLE VITAMINS- MINERALS 59067268459 No Longer Active Jonel Hemphill MD Active METOPROLOL TARTRATE 50 MG TABS 1 bid METOPROLOL TARTRATE 44286086705 No Longer Active Jonel Hemphill MD Active METFORMIN HCL 500 MG TABS 1 bod with food METFORMIN HCL 89351840245 No Longer Active Jonel Hemphill MD Active LISINOPRIL 40 MG TABS 1 qd LISINOPRIL 23424969944 No Longer Active Jonel Hemphill MD Active HYDROCHLOROTHIAZIDE 25 MG TABS 1 qd HYDROCHLOROTHIAZIDE 93766828855 No Longer Active Jonel Hemphill MD Active DURAGESIC-25 25 MCG/HR PT72 place 1 patch on the skin q72hrs for pain FENTANYL 94975978285 No Longer Active Jonel Hemphill MD Active FENTANYL 75 MCG/HR PT72 place 1 patch on skin q72hrs fr pain 2012 FENTANYL 08798966717 No Longer Active Jonel Hemphill MD Active FUROSEMIDE 40 MG TABS 1 q am FUROSEMIDE 61022402756 No Longer Active Jonel Hemphill MD Active HEPARIN (PORCINE) LOCK FLUSH 100 UNIT/ML SOLN Flush port a cath monthly every three week on with Heparin and NS HEPARIN LOCK FLUSH 37765233328 Active Jonel Hemphill MD Active FENTANYL 100 MCG/HR PT72 Apply every 3 days FENTANYL 89405306555 Active Jonel Hemphill MD Active FENTANYL 25 MCG/HR PT72 Apply to clean skin and change every 72 hours. 07/03 FENTANYL 76156093568 No Longer Active Jonel Hemphill MD Active FENTANYL 50 MCG/HR PT72 place 1 patch on skin q72 hours FENTANYL 47633186992 No Longer Active Mayco Shah APRN Active DURAGESIC-12 12 MCG/HR PT72 APPLY PATCH TO SKIN AND CHANGE EVERY 72 HOURS, ROTATE SITES FENTANYL 47343225420 No Longer Active Fozia HERNANDEZ Active FUROSEMIDE 20 MG TABS 1 qd FUROSEMIDE 09495802130 No Longer Active Mahogany [place] Active ADULT ASPIRIN EC LOW STRENGTH 81 MG TBEC 1 qd ASPIRIN 44557955350 Active MARY Perez Active FUROSEMIDE 20 MG TABS 1 qd FUROSEMIDE 20 MG TABS 470913 FUROSEMIDE Inactive DURAGESIC-12 12 MCG/HR PT72 APPLY PATCH TO SKIN AND CHANGE EVERY 72 HOURS, ROTATE SITES DURAGESIC-12 12 MCG/HR PT72 748024 FENTANYL Inactive FENTANYL 50 MCG/HR PT72 place 1 patch on skin q72 hours FENTANYL 50 MCG/HR PT72 321652 FENTANYL Inactive FUROSEMIDE 40 MG TABS 1 q am FUROSEMIDE 40 MG TABS 681557 FUROSEMIDE Inactive FENTANYL 75 MCG/HR PT72 place 1 patch on skin q72hrs fr pain 2012 FENTANYL 75 MCG/HR PT72 044993 FENTANYL Inactive DURAGESIC-25 25 MCG/HR PT72 place 1 patch on the skin q72hrs for pain DURAGESIC-25 25 MCG/HR PT72 515698 FENTANYL Inactive HYDROCHLOROTHIAZIDE 25 MG TABS 1 qd HYDROCHLOROTHIAZIDE 25 MG TABS 003454 HYDROCHLOROTHIAZIDE Inactive LISINOPRIL 40 MG TABS 1 qd LISINOPRIL 40 MG TABS 160027 LISINOPRIL Inactive METFORMIN HCL 500 MG TABS 1 bod with food METFORMIN HCL 500 MG TABS 025634 METFORMIN HCL Inactive METOPROLOL TARTRATE 50 MG TABS 1 bid METOPROLOL TARTRATE 50 MG TABS 230597 METOPROLOL TARTRATE Inactive GNP THERAPEUTIC-M TABS 1 qd GNP THERAPEUTIC-M TABS MULTIPLE VITAMINS-MINERALS Inactive AMBIEN 10 MG TABS 1 q hs prn AMBIEN 10 MG TABS 683899 ZOLPIDEM TARTRATE Inactive CLONIDINE HCL 0.2 MG TABS 1 q 8 hrs as needed -greater than 160-htn CLONIDINE HCL 0.2 MG TABS 448295 CLONIDINE HCL Inactive ANTIVERT 25 MG TABS 1 q 6 hrs prn ANTIVERT 25 MG TABS MECLIZINE HCL Inactive NEURONTIN 400 MG CAPS Take one by mouth 3 times daily, morning, afternoon and evening.] NEURONTIN 400 MG CAPS 240155 GABAPENTIN Inactive IMDUR 120 MG [id number] 1 qd IMDUR 120 MG [id number] ISOSORBIDE MONONITRATE Inactive CVS MILK OF MAGNESIA [...] for arthritis pain MOBIC 15 MG TABS 727941 MELOXICAM Inactive LEVEMIR 100 UNIT/ML SOLN 5 units sub-q at bedtime LEVEMIR 100 UNIT/ML SOLN INSULIN DETEMIR Inactive SULFAMETHOXAZOLE-TMP DS 800-160 MG TABS 1 TAB PO BID SULFAMETHOXAZOLE-TMP DS 800-160 MG TABS 266443 SULFAMETHOXAZOLE-TRIMETHOPRIM Inactive AMBIEN 10 MG TAB 1 tab by mouth at bedtime as needed for sleep AMBIEN 10 MG TAB 138280 ZOLPIDEM TARTRATE Inactive POTASSIUM CHLORIDE CHELA ER 20 MEQ CR-TABS 1 tab PO daily POTASSIUM CHLORIDE CHELA ER 20 MEQ CR-TABS POTASSIUM CHLORIDE CHELA CR Inactive MIRALAX POWD 17 gms in 4 oz water or juice daily MIRALAX POWD 628378 POLYETHYLENE GLYCOL 3350 Inactive CVS VITAMIN C 500 MG TABS 1 po daily CVS VITAMIN C 500 MG TABS 846675 ASCORBIC ACID Inactive COZAAR 100 MG TABS 1 qd COZAAR 100 MG TABS 714227 LOSARTAN POTASSIUM Inactive ALLOPURINOL 300 MG TABS 1 qd ALLOPURINOL 300 MG TABS 751300 ALLOPURINOL Inactive BUDEPRION SR 150 MG [id number] 1 bid BUDEPRION SR 150 MG [id number] BUPROPION HCL Inactive DILANTIN 100 MG CAPS 3 cap tid DILANTIN 100 MG CAPS 967704 PHENYTOIN SODIUM EXTENDED Inactive HYDROCODONE-ACETAMINOPHEN 7.5-325 MG TABS 1 q 6 hrs prn HYDROCODONE-ACETAMINOPHEN 7.5-325 MG TABS 112362 HYDROCODONE- ACETAMINOPHEN Inactive GABAPENTIN 300 MG CAPS 1 CAP PO TID GABAPENTIN 300 MG CAPS 115267 GABAPENTIN Inactive GABAPENTIN 400 MG ORAL CAPS 1 TAB BY MOUTH THREE TIMES DAILY 2015 GABAPENTIN 400 MG ORAL CAPS 885534 GABAPENTIN Inactive METOPROLOL TARTRATE 50 MG ORAL TABS 1 TAB BY MOUTH TWICE DAILY METOPROLOL TARTRATE 50 MG ORAL TABS 775402 METOPROLOL TARTRATE Inactive ZYLOPRIM 300 MG TAB 1 BY MOUTH DAILY ZYLOPRIM 300 MG TAB 959243 ALLOPURINOL Inactive MECLIZINE HCL 25 MG CHEW TAB 1 four times a day as needed for dizziness 02/21 MECLIZINE HCL 25 MG CHEW TAB 239053 MECLIZINE HCL Inactive ATIVAN 0.5 MG TABS Take 1 tablet 2x daily PRN ATIVAN 0.5 MG TABS 447634 LORAZEPAM Inactive CELEXA 20 MG TABS Take 1 tablet 1x daily CELEXA 20 MG TABS 121850 CITALOPRAM HYDROBROMIDE Inactive ULORIC 40 MG ORAL TABS 1 daily for gout. ULORIC 40 MG ORAL TABS FEBUXOSTAT Inactive BUPROPION HCL ER (SR) 150 MG [id number] 1 twice a day for depression BUPROPION HCL ER (SR) 150 MG [id number] BUPROPION HCL Inactive MULTIVITAMINS CAPS 1 DAILY MULTIVITAMINS CAPS MULTIPLE VITAMIN Inactive NORCO 5-325 MG TABS 1-2 TAB Q 6 HRS PRN NORCO 5-325 MG TABS 052996 HYDROCODONE-ACETAMINOPHEN Inactive PHENYTOIN 50 MG CHEW 1 TAB PO BID PHENYTOIN 50 MG CHEW 3063098 PHENYTOIN Inactive FENTANYL 12 MCG/HR PT72 Apply to clean, dry skin and change every 72 hours FENTANYL 12 MCG/HR PT72 091755 FENTANYL Inactive FENTANYL 25 MCG/HR PT72 Apply to clean skin and change every 72 hours. 2013/ 05/22 FENTANYL 25 MCG/HR PT72 666793 FENTANYL Inactive Advance Directives Directive Description Start [...] mg/dL Encounters Code Encounter Date Provider Facility CPT-21696 Level 4 Est. Patient 18:47:35 COMPOSITE WORKER Jonel Hemphill MD [facility] CPT-29068 Level 4 Est. Patient 10:04:48 COMPOSITE WORKER Jonel Hemphill MD [facility] CPT-89930 Level 3 Est. Patient 19:05:03 CDT Jonel Hemphill MD [facility] CPT-33972 Level 3 Est. Patient 17:30:47 CDT Kevin Link MD [facility] CPT-55985 Level 3 Est. Patient 18:04:07 CDT Jonel Hemphill MD [facility] CPT-71459 Level 3 Est. Patient 17:18:03 CDT Jonel Hemphill MD [facility] CPT-27073 Level 3 Est. Patient 21:58:03 COMPOSITE WORKER Jonel Hemphill MD [facility] CPT-46712 Level 4 Est. Patient 18:03:14 CDT Jonel Yeager [facility]-67381 Level 4 Est. Patient 13:24:53 CDT [facility] CPT-77277 Level 4 Est. Patient 09:15:44 CDT Jonel Hemphill MD [facility]-61056 Level 4 Est. Patient 19:16:01 CDT Jonel Hemphill MD [facility]-03315 Level 4 Est. Patient 11:25:16 CDT Jonel Hemphill MD [facility] CPT-91137 Level 4 Est. Patient 09:00:40 CDT Jonel Hemphill MD [facility]-81567 Level 4 Est. Patient 14:53:58 CDT Jonel Hemphill MD [facility]-10008 Level 4 Est. Patient 22:59:01 CDT Jonel Hemphill MD [facility]-26255 Level 4 Est. Patient 09:29:57 CDT Jonel Hemphill MD [facility]-38927 Level 4 Est. Patient 12:35:53 COMPOSITE WORKER Jonel Hemphill MD [facility]-84121 Level 4 Est. Patient 22:36:09 COMPOSITE WORKER Jonel Hemphill MD [facility]-44499 Level 2 Est. Patient 15:14:15 COMPOSITE WORKER Mayco Shah APRN [facility] CPT-06166 Level 4 Est. Patient 10:36:22 COMPOSITE WORKER Jonel Hemphill MD [facility] CPT-34800 Level 4 Est. Patient 22:01:13 COMPOSITE WORKER Jonel Hemphill MD [facility]-23433 Level 3 Est. Patient 21:50:37 COMPOSITE WORKER Jonel Hemphill MD [facility] CPT-29335 Level 4 Est. Patient 15:02:43 CDT Rubin Pierre MD [facility] CPT-63328 Level 4 Est. Patient 14:27:35 CDT Jonel Hemphill MD [facility]-09623 Level 4 Est. Patient 12:41:17 CDT Jonel Hemphill MD [facility]-08881 Level 4 Est. Patient 16:18:55 CDT Jonel Hemphill MD [facility]-81933 Level 4 Est. Patient 17:58:05 CDT Jonel Hemphill MD [facility]-74693 Level 4 Est. Patient 22:10:06 CDT Jonel Hemphill MD [facility]-59059 Level 4 Est. Patient 13:22:09 CDT Jonel Hemphill MD [facility]-52473 Level 4 Est. Patient 22:52:17 COMPOSITE WORKER Jonel Hemphill MD [facility]-62620 Level 3 Est. Patient 22:34:10 COMPOSITE WORKER Jonel Hemphill MD [facility]-53228 Level 4 Est. Patient 07:49:20 COMPOSITE WORKER Jonel Hemphill MD [facility] Skilled CPT-93316 Level 3 Est. Patient 08:28:27 COMPOSITE WORKER Jonel Hemphill MD [facility] Procedures Code Procedure Name Date Entry Date Standard Description CPT-G0438 Initial Annual Wellness Exam 09:32:09 COMPOSITE WORKER CPT-48102 Level 3 Mcc 17:57:17 COMPOSITE WORKER CPT-28726 Level 3 Mcc 21:14:15 COMPOSITE WORKER CPT-99071 Level 3 Mcc 15:38:24 CDT CPT-66467 Level 3 Mcc 08:18:30 CDT CPT-72693 Level 3 Mcc 19:03:14 CDT CPT-25166 Level 3 Mcc 17:42:11 CDT CPT-66299 Level 3 Mcc 16:04:10 CDT CPT-31273 Level 3 Mcc 19:38:15 COMPOSITE WORKER CPT-73935 Level 3 Mcc 19:28:48 COMPOSITE WORKER CPT-89890 Level 3 Mcc 18:02:20 COMPOSITE WORKER CPT-94611 Level 3 Mcc 15:02:14 COMPOSITE WORKER CPT-35061 Level 3 Mcc 12:25:37 CDT CPT-88601 Level 3 Mcc 12:48:39 CDT CPT-02875 Level 3 Mcc 17:39:14 CDT CPT-63819 Level 3 Mcc 13:32:58 CDT CPT-96992 Level 3 Mcc 17:43:43 CDT CPT-65026 Level 3 Mcc 12:03:33 COMPOSITE WORKER CPT-43854 Level 3 Mcc 18:47:28 COMPOSITE WORKER CPT-79448 Level 3 Mcc 17:35:26 COMPOSITE WORKER CPT-25071 Level 3 Mcc 18:44:49 COMPOSITE WORKER CPT-78998 Level 3 Mcc 18:17:33 CDT CPT-42359 Level 3 Mcc 09:25:33 CDT CPT-06351 Level 3 Mcc 19:11:57 CDT CPT-38795 Level 3 Mcc 09:25:52 CDT CPT-02292 Level 3 Mcc 14:23:59 CDT CPT-92416 Level 3 Mcc 12:09:43 CDT CPT-35034 Level 3 Mcc 09:37:40 CDT CPT-36262 Level 3 Mcc 18:23:02 CDT CPT-87479 Level 3 Mcc 14:09:06 CDT CPT-28423 Level 3 Mcc 12:43:27 COMPOSITE WORKER CPT-51745 Postop F/U Visit 14:10:15 COMPOSITE WORKER CPT-79953 [facility] 17:07:14 COMPOSITE WORKER CPT-13446 Level 3 Mcc 16:14:37 COMPOSITE WORKER CPT-07136 Port a cath flush 11:47:42 CDT CPT-06610 Port a cath flush 08:29:49 CDT CPT-OV Office Visit 14:27:58 COMPOSITE WORKER
--- OUTSIDE RECORDS SUMMARY | 2016-08-07 12:58 | XMS REPORT ---
Author Author [facility] [employer] [facility] Medical Staff Organization [facility] Address [address], [place] [address] Phone [phone] Care Team Providers Care Hydroelectric Production Manager Name Role Phone FRANKO PRIETO MD PP [phone] Summary purpose TRANSITION OF CARE AUTO GENERATION [...]
--- OUTSIDE RECORDS SUMMARY | 2016-08-07 12:58 | XMS REPORT | Clinical Summary ---
Author Author Admin, [place] Organization [facility] Address Unknown Phone Unavailable Allergies, Adverse Reactions, 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, SUPERINTENDENT MEASUREMENT V58.69 Resolved Jonel Hemphill MD Long-term (current) [...] atherosclerosis of unspecified type of vessel, [place] or graft FH DIABETES V18.0 Resolved Jonel [...] atherosclerosis of unspecified type of vessel, [place] or graft CONSTIPATION 564.00 Resolved Jonel Hemphill [...] bronchitis Foot pain, right 729.5 Active Jonel Hemhpill MD Pain in limb Tinea corporis 110.5 [...] Jonel Hemphill MD Painful respiration 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 USE, SUPERINTENDENT MEASUREMENT ICD-V58.69 Inactive Jonel Hemphill MD DIABETES, TYPE [...] ORAL TABS 1 daily for gout. FEBUXOSTAT 66702766887 Active Marleni Romero Active HYDROCODONE-ACETAMINOPHEN 7.5-325 MG TABS 1 TAB PO Q 6 HRS PRN HYDROCODONE-ACETAMINOPHEN 60814491517 Active Jonel Hemphill MD Active METFORMIN HCL 1000 MG TABS 1 tablet by mouth twice daily METFORMIN HCL 58323706716 Active Marleni Romero Active FENTANYL 12 MCG/HR PT72 Apply to clean, dry skin and change every 72 hours FENTANYL 08510749212 Active Mattie Gates APRN Active KLOR-CON 20 MEQ ORAL PACK 1 BY MOUTH DAILY POTASSIUM CHLORIDE 73046255053 Active Marleni Romero Active A+D FIRST AID EXT OINT APPLY OINTMENT AND RUFINO WRAPS TO LOWER EXTEREMETIES DAILY SKIN PROTECTANTS, MISC. 71462048297 Active Jonel Hemphill MD Active NYSTATIN 685769 UNIT/GM EXT OINT APPLY PRN TID TO GAULDING/RASH IN ABDOMINAL FOLDS NYSTATIN 03541323840 Active Jonel Hemphill MD Active ATIVAN 0.5 MG TABS Take 1 tablet 2x daily PRN LORAZEPAM 84627143818 Active Jonel Hemphill MD Active GABAPENTIN 400 MG ORAL CAPS 1 TAB BY MOUTH THREE TIMES DAILY GABAPENTIN 56647057804 Active Jonel Hemphill MD Active GABAPENTIN 300 MG CAPS 1 CAP PO TID GABAPENTIN 91038210624 No Longer Active Jonel Hemphill MD Active DILANTIN 100 MG ORAL CAPS 1 THREE TIMES DAILY FOR SEIZURES PHENYTOIN SODIUM EXTENDED 89335871025 Active Marleni Romero Active CPAP APPLY AT HS CPAP Active Jonel Hemphill MD Active METOPROLOL TARTRATE 50 MG ORAL TABS 1 TAB BY MOUTH TWICE DAILY METOPROLOL TARTRATE 55789499938 Active Jonel Hemphill MD Active LISINOPRIL 40 MG TABS 1 tablet by mouth twice daily, for blood pressure 03/31 LISINOPRIL 51813932400 Active Jonel Hemphill MD Active BUPROPION HCL ER (SR) 150 MG NY61O-TCO 1 twice a day for depression BUPROPION HCL 76948179345 Active Jonel Hemphill MD Active MULTIVITAMINS CAPS 1 DAILY MULTIPLE VITAMIN 64862767570 Active Jonel Hemphill MD Active ZYLOPRIM 300 MG TAB 1 BY MOUTH DAILY ALLOPURINOL 46920350456 Active Jonel Hemphill MD Active HYDROCODONE-ACETAMINOPHEN 7.5-325 MG TABS 1 q 6 hrs prn HYDROCODONE-ACETAMINOPHEN 11018666601 No Longer Active Jonel Hemphill MD Active DILANTIN 100 MG CAPS 3 cap tid PHENYTOIN SODIUM EXTENDED 50896540921 No Longer Active Jonel Hemphill MD Active BUDEPRION SR 150 MG FY62H-WOS 1 bid BUPROPION HCL 16065590543 No Longer Active Jonel Hemphill MD Active ALLOPURINOL 300 MG TABS 1 qd ALLOPURINOL 47321878332 No Longer Active Jonel Hemphill MD Active COZAAR 100 MG TABS 1 qd LOSARTAN POTASSIUM 91491256823 No Longer Active Jonel Hemphill MD Active CVS VITAMIN C 500 MG TABS 1 po daily ASCORBIC ACID 02435694549 No Longer Active Jonel Hemphill MD Active MIRALAX POWD 17 gms in 4 oz water or juice daily POLYETHYLENE GLYCOL 3350 45407861908 No Longer Active Jonel Hemphill MD Active POTASSIUM CHLORIDE CHELA ER 20 MEQ CR-TABS 1 tab PO daily POTASSIUM CHLORIDE CHELA CR 09959982907 No Longer Active Jonel Hemphill MD Active AMBIEN 10 MG TAB 1 tab by mouth at bedtime as needed for sleep ZOLPIDEM TARTRATE 70411084176 No Longer Active Jonel Hemphill MD Active SULFAMETHOXAZOLE-TMP DS 800-160 MG TABS 1 TAB PO BID SULFAMETHOXAZOLE-TRIMETHOPRIM 35592547871 No Longer Active Jonel Hemphill MD Active NORCO 5-325 MG TABS 1-2 TAB Q 6 HRS PRN HYDROCODONE- ACETAMINOPHEN 90799384526 Active Jonel Hemphill MD Active LEVEMIR 100 UNIT/ML SOLN 5 units sub-q at bedtime INSULIN DETEMIR 86490322468 No Longer Active Tova Perez Active MOBIC 15 MG TABS 1 tab PO daily for arthritis pain MELOXICAM 76401119005 No Longer Active Tova Perez Active GLUCAGEN 1 MG SOLR INJECT 1MG IM IF BS LESS THAN 60 & RES. IS UNABLE TO SWALLOW GLUCAGON HCL (RDNA) 40304260387 No Longer Active Tova Perez Active CVS MILK OF MAGNESIA 1200 MG/15ML SUSP 30 ml daily for constipation MAGNESIUM HYDROXIDE 62938309858 No Longer Active Tova Perez Active IMDUR 120 MG WH39E-YIN 1 qd ISOSORBIDE MONONITRATE 30755261882 No Longer Active Tova Chris Active PHENYTOIN 50 MG CHEW 1 TAB PO BID PHENYTOIN 44269071872 Active Tova Chris Active MECLIZINE HCL 25 MG CHEW TAB 1 four times a day as needed for dizziness 02/21 MECLIZINE HCL 38099154647 Active Tova Chris Active NEURONTIN 400 MG CAPS Take one by mouth 3 times daily, morning, afternoon and evening.] GABAPENTIN 83122180919 No Longer Active Tova Perez Active ANTIVERT 25 MG TABS 1 q 6 hrs prn MECLIZINE HCL 10264342646 No Longer Active Jonel Hemphill MD Active CLONIDINE HCL 0.2 MG TABS 1 q 8 hrs as needed -greater than 160-htn CLONIDINE HCL 94055999742 No Longer Active Jonel Hemphill MD Active AMBIEN 10 MG TABS 1 q hs prn ZOLPIDEM TARTRATE 14858640610 No Longer Active Jonel Hemphill MD Active GNP THERAPEUTIC-M TABS 1 qd MULTIPLE VITAMINS- MINERALS 01149075157 No Longer Active Jonel Hemphill MD Active METOPROLOL TARTRATE 50 MG TABS 1 bid METOPROLOL TARTRATE 86020076406 No Longer Active Jonel Hemphill MD Active METFORMIN HCL 500 MG TABS 1 bod with food METFORMIN HCL 92327219365 No Longer Active Jonel Hemphill MD Active LISINOPRIL 40 MG TABS 1 qd LISINOPRIL 32017314757 No Longer Active Jonel Hemphill MD Active HYDROCHLOROTHIAZIDE 25 MG TABS 1 qd HYDROCHLOROTHIAZIDE 04937899504 No Longer Active Jonel Hemphill MD Active DURAGESIC-25 25 MCG/HR PT72 place 1 patch on the skin q72hrs for pain FENTANYL 78186569198 No Longer Active Jonel Hemphill MD Active FENTANYL 75 MCG/HR PT72 place 1 patch on skin q72hrs fr pain 2012 FENTANYL 26405731853 No Longer Active Jonel Hemphill MD Active LASIX 20 MG TABS 1 tab PO q morning FUROSEMIDE 55791903085 Active Jonel Hemphill MD Active FUROSEMIDE 40 MG TABS 1 q am FUROSEMIDE 10278294942 No Longer Active Jonel Hemphill MD Active HEPARIN (PORCINE) LOCK FLUSH 100 UNIT/ML SOLN Flush port a cath monthly every three week on with Heparin and NS HEPARIN LOCK FLUSH 08767757768 Active Jonel Hemphill MD Active FENTANYL 100 MCG/HR PT72 Apply every 3 days FENTANYL 19185714907 Active Mattie Gates APRN Active FENTANYL 25 MCG/HR PT72 Apply to clean skin and change every 72 hours. 07/03 FENTANYL 72726227775 No Longer Active Jonel Hemphill MD Active FENTANYL 50 MCG/HR PT72 place 1 patch on skin q72 hours FENTANYL 56270299824 No Longer Active Mayco Shah APRN Active CELEXA 20 MG TABS Take 1 tablet 1x daily CITALOPRAM HYDROBROMIDE 08208392974 Active Jonel Hemphill MD Active DURAGESIC-12 12 MCG/HR PT72 APPLY PATCH TO SKIN AND CHANGE EVERY 72 HOURS, ROTATE SITES FENTANYL 81203018426 No Longer Active Fozia Amador RMA Active FUROSEMIDE 20 MG TABS 1 qd FUROSEMIDE 50320523260 No Longer Active Mahogany Tyrone Active ADULT ASPIRIN EC LOW STRENGTH 81 MG TBEC 1 qd ASPIRIN 79918503407 Active MARY Perez Active FUROSEMIDE 20 MG TABS 1 qd FUROSEMIDE 20 MG TABS 148580 FUROSEMIDE Inactive DURAGESIC-12 12 MCG/HR PT72 APPLY PATCH TO SKIN AND CHANGE EVERY 72 HOURS, ROTATE SITES DURAGESIC-12 12 MCG/HR PT72 650930 FENTANYL Inactive FENTANYL 50 MCG/HR PT72 place 1 patch on skin q72 hours FENTANYL 50 MCG/HR PT72 371621 FENTANYL Inactive FUROSEMIDE 40 MG TABS 1 q am FUROSEMIDE 40 MG TABS 241616 FUROSEMIDE Inactive FENTANYL 75 MCG/HR PT72 place 1 patch on skin q72hrs fr pain 2012 FENTANYL 75 MCG/HR PT72 467095 FENTANYL Inactive DURAGESIC-25 25 MCG/HR PT72 place 1 patch on the skin q72hrs for pain DURAGESIC-25 25 MCG/HR PT72 451936 FENTANYL Inactive HYDROCHLOROTHIAZIDE 25 MG TABS 1 qd HYDROCHLOROTHIAZIDE 25 MG TABS 944650 HYDROCHLOROTHIAZIDE Inactive LISINOPRIL 40 MG TABS 1 qd LISINOPRIL 40 MG TABS 623847 LISINOPRIL Inactive METFORMIN HCL 500 MG TABS 1 bod with food METFORMIN HCL 500 MG TABS 676592 METFORMIN HCL Inactive METOPROLOL TARTRATE 50 MG TABS 1 bid METOPROLOL TARTRATE 50 MG TABS 028973 METOPROLOL TARTRATE Inactive GNP THERAPEUTIC-M TABS 1 qd GNP THERAPEUTIC-M TABS MULTIPLE VITAMINS-MINERALS Inactive AMBIEN 10 MG TABS 1 q hs prn AMBIEN 10 MG TABS 092175 ZOLPIDEM TARTRATE Inactive CLONIDINE HCL 0.2 MG TABS 1 q 8 hrs as needed -greater than 160-htn CLONIDINE HCL 0.2 MG TABS 036731 CLONIDINE HCL Inactive ANTIVERT 25 MG TABS 1 q 6 hrs prn ANTIVERT 25 MG TABS MECLIZINE HCL Inactive NEURONTIN 400 MG CAPS Take one by mouth 3 times daily, morning, afternoon and evening.] NEURONTIN 400 MG CAPS 476368 GABAPENTIN Inactive IMDUR 120 MG HF21Q-CPB 1 qd IMDUR 120 MG IT50A-DMD ISOSORBIDE MONONITRATE Inactive CVS MILK OF MAGNESIA [...] for arthritis pain MOBIC 15 MG TABS 893604 MELOXICAM Inactive LEVEMIR 100 UNIT/ML SOLN 5 units sub-q at bedtime LEVEMIR 100 UNIT/ML SOLN INSULIN DETEMIR Inactive SULFAMETHOXAZOLE-TMP DS 800-160 MG TABS 1 TAB PO BID SULFAMETHOXAZOLE-TMP DS 800-160 MG TABS 684422 SULFAMETHOXAZOLE-TRIMETHOPRIM Inactive AMBIEN 10 MG TAB 1 tab by mouth at bedtime as needed for sleep AMBIEN 10 MG TAB 811034 ZOLPIDEM TARTRATE Inactive POTASSIUM CHLORIDE CHELA ER 20 MEQ CR-TABS 1 tab PO daily POTASSIUM CHLORIDE CHELA ER 20 MEQ CR-TABS POTASSIUM CHLORIDE CHELA CR Inactive MIRALAX POWD 17 gms in 4 oz water or juice daily MIRALAX POWD 850912 POLYETHYLENE GLYCOL 3350 Inactive CVS VITAMIN C 500 MG TABS 1 po daily CVS VITAMIN C 500 MG TABS 849273 ASCORBIC ACID Inactive COZAAR 100 MG TABS 1 qd COZAAR 100 MG TABS 392326 LOSARTAN POTASSIUM Inactive ALLOPURINOL 300 MG TABS 1 qd ALLOPURINOL 300 MG TABS 937985 ALLOPURINOL Inactive BUDEPRION SR 150 MG [id number] 1 bid BUDEPRION SR 150 MG [id number] BUPROPION HCL Inactive DILANTIN 100 MG CAPS 3 cap tid DILANTIN 100 MG CAPS 680819 PHENYTOIN SODIUM EXTENDED Inactive HYDROCODONE-ACETAMINOPHEN 7.5-325 MG TABS 1 q 6 hrs prn HYDROCODONE-ACETAMINOPHEN 7.5-325 MG TABS 706250 HYDROCODONE- ACETAMINOPHEN Inactive GABAPENTIN 300 MG CAPS 1 CAP PO TID GABAPENTIN 300 MG CAPS 464729 GABAPENTIN Inactive FENTANYL 25 MCG/HR PT72 Apply to clean skin and change every 72 hours. 07/03 FENTANYL 25 MCG/HR PT72 253623 FENTANYL Inactive Advance Directives Directive Description Start [...] 4.3-6.0 Encounters Code Encounter Date Provider Facility CPT-45791 Level 3 Est. Patient 19:05:03 CDT Jonel Hemphill MD [facility] CPT-83759 Level 3 Est. Patient 17:30:47 CDT Kevin Link MD [facility] CPT-41696 Level 3 Est. Patient 18:04:07 CDT Jonel Hemphill MD [facility] CPT-43176 Level 3 Est. Patient 17:18:03 CDT Jonel Hemphill MD [facility] CPT-54749 Level 3 Est. Patient 21:58:03 SECURITIES CLERK Jonel Hemphill MD [facility] CPT-28327 Level 4 Est. Patient 18:03:14 CDT Jonel Hemphill MD [facility]-45605 Level 4 Est. Patient 13:24:53 CDT Jonel Hemphill MD [facility]-39422 Level 4 Est. Patient 09:15:44 CDT Jonel Hemphill MD [facility]-30093 Level 4 Est. Patient 19:16:01 CDT Jonel Hemphill MD [facility]-58269 Level 4 Est. Patient 11:25:16 CDT Jonel Hemphill MD [facility]-06419 Level 4 Est. Patient 09:00:40 CDT Jonel Hemphill MD [facility]-69268 Level 4 Est. Patient 14:53:58 CDT Jonel Hemphill MD [facility]-57362 Level 4 Est. Patient 22:59:01 CDT Jonel Hemphill MD [facility]-83309 Level 4 Est. Patient 09:29:57 CDT Jonel Hemphill MD [facility]-15303 Level 4 Est. Patient 12:35:53 SECURITIES CLERK Jonel Hemphill MD [facility]-09195 Level 4 Est. Patient 22:36:09 SECURITIES CLERK Jonel Hemphill MD [facility]-28280 Level 2 Est. Patient 15:14:15 SECURITIES CLERK Mayco Shah APRN [facility]-37332 Level 4 Est. Patient 10:36:22 SECURITIES CLERK Jonel Hemphill MD [facility]-15455 Level 4 Est. Patient 22:01:13 SECURITIES CLERK Jonel Hemphill MD [facility]-77240 Level 3 Est. Patient 21:50:37 SECURITIES CLERK Jonel Hemphill MD [facility] CPT-92967 Level 4 Est. Patient 15:02:43 CDT Rubin Pierre MD [facility] CPT-22344 Level 4 Est. Patient 14:27:35 CDT Jonel Hemphill MD [facility]-73006 Level 4 Est. Patient 12:41:17 CDT Jonel Hemphill MD [facility]-19262 Level 4 Est. Patient 16:18:55 CDT Jonel Hemphill MD [facility]-39956 Level 4 Est. Patient 17:58:05 CDT Jonel Hemphill MD [facility]-09801 Level 4 Est. Patient 22:10:06 CDT Jonel Hemphill MD [facility] CPT-50088 Level 4 Est. Patient 13:22:09 CDT Jonel Hemphill MD [facility] CPT-60119 Level 4 Est. Patient 22:52:17 SECURITIES CLERK Jonel Hemphill MD [facility]-42243 Level 3 Est. Patient 22:34:10 SECURITIES CLERK Jonel Hemphill MD [facility] CPT-93164 Level 4 Est. Patient 07:49:20 SECURITIES CLERK Jonel Hemphill MD [facility] Skilled CPT-40520 Level 3 Est. Patient 08:28:27 SECURITIES CLERK Jonel Hemphill MD [facility] Procedures Code Procedure Name Date Entry Date Standard Description CPT-30831 Level 3 Skilled Nursing 17:42:11 CDT CPT-86737 Level 3 Skilled Nursing 16:04:10 CDT CPT-29204 Level 3 Skilled Nursing 19:38:15 SECURITIES CLERK CPT-10600 Level 3 Skilled Nursing 19:28:48 SECURITIES CLERK CPT-24607 Level 3 Skilled Nursing 18:02:20 SECURITIES CLERK CPT-45782 Level 3 Skilled Nursing 15:02:14 SECURITIES CLERK CPT-03260 Level 3 Skilled Nursing 12:25:37 CDT CPT-98976 Level 3 Skilled Nursing 12:48:39 CDT CPT-29643 Level 3 Skilled Nursing 17:39:14 CDT CPT-24552 Level 3 Skilled Nursing 13:32:58 CDT CPT-78933 Level 3 Skilled Nursing 17:43:43 CDT CPT-73722 Level 3 Skilled Nursing 12:03:33 SECURITIES CLERK CPT-59811 Level 3 Skilled Nursing 18:47:28 SECURITIES CLERK CPT-90928 Level 3 Skilled Nursing 17:35:26 SECURITIES CLERK CPT-14730 Level 3 Skilled Nursing 18:44:49 SECURITIES CLERK CPT-46987 Level 3 Skilled Nursing 18:17:33 CDT CPT-45850 Level 3 Skilled Nursing 09:25:33 CDT CPT-60789 Level 3 Skilled Nursing 19:11:57 CDT CPT-31263 Level 3 Skilled Nursing 09:25:52 CDT CPT-45585 Level 3 Skilled Nursing 14:23:59 CDT CPT-89232 Level 3 Skilled Nursing 12:09:43 CDT CPT-93544 Level 3 Skilled Nursing 09:37:40 CDT CPT-46018 Level 3 Skilled Nursing 18:23:02 CDT CPT-48945 Level 3 Skilled Nursing 14:09:06 CDT CPT-68595 Level 3 Skilled Nursing 12:43:27 SECURITIES CLERK CPT-72067 Postop F/U Visit 14:10:15 SECURITIES CLERK CPT-53037 [facility] 17:07:14 SECURITIES CLERK CPT-44166 Level 3 Skilled Nursing 16:14:37 SECURITIES CLERK CPT-67450 Port a cath flush 11:47:42 CDT CPT-73647 Port a cath flush 08:29:49 CDT CPT-OV Office Visit 14:27:58 SECURITIES CLERK
--- OUTSIDE RECORDS SUMMARY | 2016-08-07 12:58 | XMS REPORT ---
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
--- OUTSIDE RECORDS SUMMARY | 2016-08-07 13:00 | XMS REPORT | Clinical Summary ---
Author Author Admin, [place] Organization [facility] Address Unknown 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, ALMOND BLANCHER OPERATOR V58.69 Resolved Jonel Hemphill MD Long-term [...] Obstructive sleep apnea (adult) (pediatric) 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 USE, ALMOND BLANCHER OPERATOR ICD-V58.69 Inactive Jonel Hemphill MD DIABETES, [...] 1 tablet by mouth daily CITALOPRAM HYDROBROMIDE 67593257699 Active Marleni Romero Active ZOFRAN 4 MG TABS 1 po q6hr PRN Nausea ONDANSETRON HCL 72800970253 Active Jonel Hemphill MD Active XARELTO 20 MG ORAL TABS 1 daily RIVAROXABAN 98424536267 Active Jonel Hemphill MD Active JANUVIA 100 MG ORAL TABS 2 tabs daily SITAGLIPTIN PHOSPHATE 90789674552 Active Jonel Hemphill MD Active CELEXA 20 MG TABS Take 1 tablet 1x daily CITALOPRAM HYDROBROMIDE 21424016449 No Longer Active Jonel Hemphill MD Active ATIVAN 0.5 MG TABS Take 1 tablet 2x daily PRN LORAZEPAM 90697811338 No Longer Active Jonel Hemphill MD Active FUROSEMIDE 80 MG ORAL TABS 1 daily FUROSEMIDE 01039370748 Active Jonel Hemphill MD Active MECLIZINE HCL 25 MG CHEW TAB 1 four times a day as needed for dizziness 02/21 MECLIZINE HCL 68029373588 No Longer Active Jonel Hemphill MD Active ZYLOPRIM 300 MG TAB 1 BY MOUTH DAILY ALLOPURINOL 03160068501 No Longer Active Jonel Hemphill MD Active METOPROLOL TARTRATE 50 MG ORAL TABS 1 TAB BY MOUTH TWICE DAILY METOPROLOL TARTRATE 51409657963 No Longer Active Jonel Hemphill MD Active GABAPENTIN 400 MG ORAL CAPS 1 TAB BY MOUTH THREE TIMES DAILY 2015 GABAPENTIN 90305698443 No Longer Active Jonel Hemphill MD Active ULORIC 40 MG ORAL TABS 1 daily for gout. FEBUXOSTAT 26085588835 Active Marleni Romero Active HYDROCODONE-ACETAMINOPHEN 7.5-325 MG TABS 1 TAB PO Q 6 HRS PRN HYDROCODONE-ACETAMINOPHEN 15485945880 Active Mattie Gates APRN Active METFORMIN HCL 1000 MG TABS 1 tablet by mouth twice daily METFORMIN HCL 25439658967 Active Marleni Romero Active FENTANYL 12 MCG/HR PT72 Apply to clean, dry skin and change every 72 hours FENTANYL 15772201271 Active Jonel Hemphill MD Active KLOR-CON 20 MEQ ORAL PACK 1 BY MOUTH DAILY POTASSIUM CHLORIDE 34637994942 Active Marleni Romero Active A+D FIRST AID EXT OINT APPLY OINTMENT AND RUFINO WRAPS TO LOWER EXTEREMETIES DAILY SKIN PROTECTANTS, MISC. 00178678984 Active Jonel Hemphill MD Active NYSTATIN 244603 UNIT/GM EXT OINT APPLY PRN TID TO GAULDING/RASH IN ABDOMINAL FOLDS NYSTATIN 51132823568 Active Jonel Hemphill MD Active GABAPENTIN 300 MG CAPS 1 CAP PO TID GABAPENTIN 97414693369 No Longer Active Jonel Hemphill MD Active DILANTIN 100 MG ORAL CAPS 1 THREE TIMES DAILY FOR SEIZURES PHENYTOIN SODIUM EXTENDED 67967378963 Active Marleni Tenoriokristin Active CPAP APPLY AT HS CPAP Active Jonel Hemphill MD Active LISINOPRIL 40 MG TABS 1 tablet by mouth twice daily, for blood pressure 03/31 LISINOPRIL 24775912601 Active Joenl Hemphill MD Active BUPROPION HCL ER (SR) 150 MG [id number] 1 twice a day for depression BUPROPION HCL 61187077848 Active Jonel Hemphill MD Active MULTIVITAMINS CAPS 1 DAILY MULTIPLE VITAMIN 86051243923 Active Jonel Hemphill MD Active HYDROCODONE-ACETAMINOPHEN 7.5-325 MG TABS 1 q 6 hrs prn HYDROCODONE-ACETAMINOPHEN 78941644276 No Longer Active Jonel Hemphill MD Active DILANTIN 100 MG CAPS 3 cap tid PHENYTOIN SODIUM EXTENDED 62874632722 No Longer Active Jonel Hemphill MD Active BUDEPRION SR 150 MG [id number] 1 bid BUPROPION HCL 69010519578 No Longer Active Jonel Hemphill MD Active ALLOPURINOL 300 MG TABS 1 qd ALLOPURINOL 24312461818 No Longer Active Jonel Hemphill MD Active COZAAR 100 MG TABS 1 qd LOSARTAN POTASSIUM 06529596558 No Longer Active Jonel Hemphill MD Active CVS VITAMIN C 500 MG TABS 1 po daily ASCORBIC ACID 80452088302 No Longer Active Jonel Hemphill MD Active MIRALAX POWD 17 gms in 4 oz water or juice daily POLYETHYLENE GLYCOL 3350 30307647412 No Longer Active Jonel Hemphill MD Active POTASSIUM CHLORIDE CHELA ER 20 MEQ CR-TABS 1 tab PO daily POTASSIUM CHLORIDE CHELA CR 32619791635 No Longer Active Jonel Hemphill MD Active AMBIEN 10 MG TAB 1 tab by mouth at bedtime as needed for sleep ZOLPIDEM TARTRATE 77688679332 No Longer Active Jonel Hemphill MD Active SULFAMETHOXAZOLE-TMP DS 800-160 MG TABS 1 TAB PO BID SULFAMETHOXAZOLE-TRIMETHOPRIM 98833380343 No Longer Active Jonel Hemphill MD Active NORCO 5-325 MG TABS 1-2 TAB Q 6 HRS PRN HYDROCODONE- ACETAMINOPHEN 55229272144 Active Jonel Hemphill MD Active LEVEMIR 100 UNIT/ML SOLN 5 units sub-q at bedtime INSULIN DETEMIR 67009476314 No Longer Active Tova Perez Active MOBIC 15 MG TABS 1 tab PO daily for arthritis pain MELOXICAM 54781537034 No Longer Active Tova Perez Active GLUCAGEN 1 MG SOLR INJECT 1MG IM IF BS LESS THAN 60 & RES. IS UNABLE TO SWALLOW GLUCAGON HCL (RDNA) 30966562557 No Longer Active Tova Perez Active CVS MILK OF MAGNESIA 1200 MG/15ML SUSP 30 ml daily for constipation MAGNESIUM HYDROXIDE 03946563509 No Longer Active Tova Perez Active IMDUR 120 MG [id number] 1 qd ISOSORBIDE MONONITRATE 53355798645 No Longer Active Tova Perez Active PHENYTOIN 50 MG CHEW 1 TAB PO BID PHENYTOIN 11191562719 Active Tova Perez Active NEURONTIN 400 MG CAPS Take one by mouth 3 times daily, morning, afternoon and evening.] GABAPENTIN 85243775784 No Longer Active Tova Perez Active ANTIVERT 25 MG TABS 1 q 6 hrs prn MECLIZINE HCL 45470251073 No Longer Active Jonel Hemphill MD Active CLONIDINE HCL 0.2 MG TABS 1 q 8 hrs as needed -greater than 160-htn CLONIDINE HCL 84313640788 No Longer Active Jonel Hemphill MD Active AMBIEN 10 MG TABS 1 q hs prn ZOLPIDEM TARTRATE 59972024493 No Longer Active Jonel Hemphill MD Active GNP THERAPEUTIC-M TABS 1 qd MULTIPLE VITAMINS- MINERALS 72629758770 No Longer Active Jonel Hemphill MD Active METOPROLOL TARTRATE 50 MG TABS 1 bid METOPROLOL TARTRATE 80626857437 No Longer Active Jonel Hemphill MD Active METFORMIN HCL 500 MG TABS 1 bod with food METFORMIN HCL 64273936554 No Longer Active Jonel Hemphill MD Active LISINOPRIL 40 MG TABS 1 qd LISINOPRIL 42662420841 No Longer Active Jonel Hemphill MD Active HYDROCHLOROTHIAZIDE 25 MG TABS 1 qd HYDROCHLOROTHIAZIDE 52564841859 No Longer Active Jonel Hemphill MD Active DURAGESIC-25 25 MCG/HR PT72 place 1 patch on the skin q72hrs for pain FENTANYL 20000121202 No Longer Active Jonel Hemphill MD Active FENTANYL 75 MCG/HR PT72 place 1 patch on skin q72hrs fr pain 2012 FENTANYL 02997009222 No Longer Active Jonel Hemphill MD Active FUROSEMIDE 40 MG TABS 1 q am FUROSEMIDE 22132641935 No Longer Active Jonel Hemphill MD Active HEPARIN (PORCINE) LOCK FLUSH 100 UNIT/ML SOLN Flush port a cath monthly every three week on with Heparin and NS HEPARIN LOCK FLUSH 97178820964 Active Jonel Hemphill MD Active FENTANYL 100 MCG/HR PT72 Apply every 3 days FENTANYL 29503675779 Active Jonel Hemphill MD Active FENTANYL 25 MCG/HR PT72 Apply to clean skin and change every 72 hours. 07/03 FENTANYL 15325564471 No Longer Active Jonel Hemphill MD Active FENTANYL 50 MCG/HR PT72 place 1 patch on skin q72 hours FENTANYL 36905502313 No Longer Active Mayco Shah APRN Active DURAGESIC-12 12 MCG/HR PT72 APPLY PATCH TO SKIN AND CHANGE EVERY 72 HOURS, ROTATE SITES FENTANYL 79763134920 No Longer Active Fozia HERNANDEZ Active FUROSEMIDE 20 MG TABS 1 qd FUROSEMIDE 99798260927 No Longer Active Mahogany Bolivar Active ADULT ASPIRIN EC LOW STRENGTH 81 MG TBEC 1 qd ASPIRIN 13334882934 Active MARY Perez Active FUROSEMIDE 20 MG TABS 1 qd FUROSEMIDE 20 MG TABS 391674 FUROSEMIDE Inactive DURAGESIC-12 12 MCG/HR PT72 APPLY PATCH TO SKIN AND CHANGE EVERY 72 HOURS, ROTATE SITES DURAGESIC-12 12 MCG/HR PT72 614027 FENTANYL Inactive FENTANYL 50 MCG/HR PT72 place 1 patch on skin q72 hours FENTANYL 50 MCG/HR PT72 884274 FENTANYL Inactive FUROSEMIDE 40 MG TABS 1 q am FUROSEMIDE 40 MG TABS 308936 FUROSEMIDE Inactive FENTANYL 75 MCG/HR PT72 place 1 patch on skin q72hrs fr pain 2012 FENTANYL 75 MCG/HR PT72 550587 FENTANYL Inactive DURAGESIC-25 25 MCG/HR PT72 place 1 patch on the skin q72hrs for pain DURAGESIC-25 25 MCG/HR PT72 473230 FENTANYL Inactive HYDROCHLOROTHIAZIDE 25 MG TABS 1 qd HYDROCHLOROTHIAZIDE 25 MG TABS 348859 HYDROCHLOROTHIAZIDE Inactive LISINOPRIL 40 MG TABS 1 qd LISINOPRIL 40 MG TABS 491959 LISINOPRIL Inactive METFORMIN HCL 500 MG TABS 1 bod with food METFORMIN HCL 500 MG TABS 604511 METFORMIN HCL Inactive METOPROLOL TARTRATE 50 MG TABS 1 bid METOPROLOL TARTRATE 50 MG TABS 825786 METOPROLOL TARTRATE Inactive GNP THERAPEUTIC-M TABS 1 qd GNP THERAPEUTIC-M TABS MULTIPLE VITAMINS-MINERALS Inactive AMBIEN 10 MG TABS 1 q hs prn AMBIEN 10 MG TABS 511956 ZOLPIDEM TARTRATE Inactive CLONIDINE HCL 0.2 MG TABS 1 q 8 hrs as needed -greater than 160-htn CLONIDINE HCL 0.2 MG TABS 107144 CLONIDINE HCL Inactive ANTIVERT 25 MG TABS 1 q 6 hrs prn ANTIVERT 25 MG TABS MECLIZINE HCL Inactive NEURONTIN 400 MG CAPS Take one by mouth 3 times daily, morning, afternoon and evening.] NEURONTIN 400 MG CAPS 114087 GABAPENTIN Inactive IMDUR 120 MG [id number] 1 qd IMDUR 120 MG [id number] ISOSORBIDE MONONITRATE Inactive CVS MILK OF MAGNESIA [...] for arthritis pain MOBIC 15 MG TABS 777052 MELOXICAM Inactive LEVEMIR 100 UNIT/ML SOLN 5 units sub-q at bedtime LEVEMIR 100 UNIT/ML SOLN INSULIN DETEMIR Inactive SULFAMETHOXAZOLE-TMP DS 800-160 MG TABS 1 TAB PO BID SULFAMETHOXAZOLE-TMP DS 800-160 MG TABS 437096 SULFAMETHOXAZOLE-TRIMETHOPRIM Inactive AMBIEN 10 MG TAB 1 tab by mouth at bedtime as needed for sleep AMBIEN 10 MG TAB 941022 ZOLPIDEM TARTRATE Inactive POTASSIUM CHLORIDE CHELA ER 20 MEQ CR-TABS 1 tab PO daily POTASSIUM CHLORIDE CHELA ER 20 MEQ CR-TABS POTASSIUM CHLORIDE CHELA CR Inactive MIRALAX POWD 17 gms in 4 oz water or juice daily MIRALAX POWD 998402 POLYETHYLENE GLYCOL 3350 Inactive CVS VITAMIN C 500 MG TABS 1 po daily CVS VITAMIN C 500 MG TABS 943303 ASCORBIC ACID Inactive COZAAR 100 MG TABS 1 qd COZAAR 100 MG TABS 467339 LOSARTAN POTASSIUM Inactive ALLOPURINOL 300 MG TABS 1 qd ALLOPURINOL 300 MG TABS 441957 ALLOPURINOL Inactive BUDEPRION SR 150 MG [id number] 1 bid BUDEPRION SR 150 MG [id number] BUPROPION HCL Inactive DILANTIN 100 MG CAPS 3 cap tid DILANTIN 100 MG CAPS 303258 PHENYTOIN SODIUM EXTENDED Inactive HYDROCODONE-ACETAMINOPHEN 7.5-325 MG TABS 1 q 6 hrs prn HYDROCODONE-ACETAMINOPHEN 7.5-325 MG TABS 133299 HYDROCODONE- ACETAMINOPHEN Inactive GABAPENTIN 300 MG CAPS 1 CAP PO TID GABAPENTIN 300 MG CAPS 074406 GABAPENTIN Inactive GABAPENTIN 400 MG ORAL CAPS 1 TAB BY MOUTH THREE TIMES DAILY 2015 GABAPENTIN 400 MG ORAL CAPS 456842 GABAPENTIN Inactive METOPROLOL TARTRATE 50 MG ORAL TABS 1 TAB BY MOUTH TWICE DAILY METOPROLOL TARTRATE 50 MG ORAL TABS 413866 METOPROLOL TARTRATE Inactive ZYLOPRIM 300 MG TAB 1 BY MOUTH DAILY ZYLOPRIM 300 MG TAB 144812 ALLOPURINOL Inactive MECLIZINE HCL 25 MG CHEW TAB 1 four times a day as needed for dizziness 02/21 MECLIZINE HCL 25 MG CHEW TAB 224168 MECLIZINE HCL Inactive ATIVAN 0.5 MG TABS Take 1 tablet 2x daily PRN ATIVAN 0.5 MG TABS 731882 LORAZEPAM Inactive CELEXA 20 MG TABS Take 1 tablet 1x daily CELEXA 20 MG TABS 161625 CITALOPRAM HYDROBROMIDE Inactive FENTANYL 25 MCG/HR PT72 Apply to clean skin and change every 72 hours. 07/03 FENTANYL 25 MCG/HR PT72 751843 FENTANYL Inactive Advance Directives Directive Description Start [...] mg/dL Encounters Code Encounter Date Provider Facility CPT-99212 Level 3 Est. Patient 19:05:03 CDT Jonel Hemphill MD [facility]-18006 Level 3 Est. Patient 17:30:47 CDT Kevin Link MD [facility]-21521 Level 3 Est. Patient 18:04:07 CDT Jonel Hemphill MD [facility]-71493 Level 3 Est. Patient 17:18:03 CDT Jonel Hemphill MD [facility]-73567 Level 3 Est. 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-58996 Level 4 Est. Patient 18:03:14 CDT [facility] Level 4 Est. Patient 13:24:53 CDT Jonel Yeager [facility]-84068 Level 4 Est. Patient 09:15:44 CDT Jonel Yeager [facility]-41125 Level 4 Est. Patient 19:16:01 CDT [facility]-40509 Level 4 Est. Patient 11:25:16 CDT Jonel Hemphill MD [facility] CPT-57225 Level 4 Est. Patient 09:00:40 CDT [facility]-35913 Level 4 Est. Patient 14:53:58 CDT Jonel Hemphill MD [facility] CPT-82003 Level 4 Est. Patient 22:59:01 CDT Jonel Hemphill MD [facility]-53616 Level 4 Est. Patient 09:29:57 CDT Jonel Hemphill MD [facility]-71968 Level 4 Est. 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 Patient 22:36:09 REINFORCING METAL WORKER Jonel Hemphill MD [facility]-97872 Level 2 Est. Patient 15:14:15 REINFORCING METAL WORKER Mayco Shah APRN [facility]-14122 Level 4 Est. Patient 10:36:22 REINFORCING METAL WORKER Jonel Hemphill MD [facility] CPT-25535 Level 4 Est. Patient 22:01:13 REINFORCING METAL WORKER Jonel Hemphill MD [facility]-65540 Level 3 Est. Patient 21:50:37 REINFORCING METAL WORKER Jonel Hemphill MD [facility] CPT-24286 Level 4 Est. Patient 15:02:43 CDT Rubin Pierre MD [facility] CPT-04598 Level 4 Est. Patient 14:27:35 CDT Jonel Hemphill MD [facility]-97138 Level 4 Est. Patient 12:41:17 CDT Jonel Hemphill MD [facility] CPT-26584 Level 4 Est. Patient 16:18:55 CDT Jonel Hemphill MD [facility] CPT-02070 Level 4 Est. Patient 17:58:05 CDT Jonel Hemphill MD [facility] CPT-76457 Level 4 Est. Patient 22:10:06 CDT Jonel Hemphill MD [facility]-53631 Level 4 Est. Patient 13:22:09 CDT Jonel Hemphill MD [facility] CPT-03897 Level 4 Est. 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 Patient 22:34:10 REINFORCING METAL WORKER Jonel Hemphill MD [facility] CPT-43389 Level 4 Est. Patient 07:49:20 REINFORCING METAL WORKER Jonel Hemphill MD [facility] Skilled CPT-10306 Level 3 Est. Patient 08:28:27 REINFORCING METAL WORKER Jonel Hemphill MD [facility] Procedures Code Procedure Name Date Entry Date Standard Description CPT-74460 Level 3 Long-Term 08:18:30 CDT CPT-31578 Level 3 Long-Term 19:03:14 CDT CPT-22429 Level 3 Long-Term 17:42:11 CDT CPT-73363 Level 3 Long-Term 16:04:10 CDT CPT-04992 Level 3 Long-Term 19:38:15 REINFORCING METAL WORKER CPT-15188 Level 3 Long-Term 19:28:48 REINFORCING METAL WORKER CPT-75127 Level 3 Long-Term 18:02:20 REINFORCING METAL WORKER CPT-19969 Level 3 Long-Term 15:02:14 REINFORCING METAL WORKER CPT-17248 Level 3 Long-Term 12:25:37 CDT CPT-23156 Level 3 Long-Term 12:48:39 CDT CPT-75170 Level 3 Long-Term 17:39:14 CDT CPT-02336 Level 3 Long-Term 13:32:58 CDT CPT-83373 Level 3 Long-Term 17:43:43 CDT CPT-41479 Level 3 Long-Term 12:03:33 REINFORCING METAL WORKER CPT-83398 Level 3 Long-Term 18:47:28 REINFORCING METAL WORKER CPT-22841 Level 3 Long-Term 17:35:26 REINFORCING METAL WORKER CPT-59655 Level 3 Long-Term 18:44:49 REINFORCING METAL WORKER CPT-14496 Level 3 Long-Term 18:17:33 CDT CPT-20426 Level 3 Long-Term 09:25:33 CDT CPT-49662 Level 3 Long-Term 19:11:57 CDT CPT-18538 Level 3 Long-Term 09:25:52 CDT CPT-71915 Level 3 Long-Term 14:23:59 CDT CPT-88482 Level 3 Long-Term 12:09:43 CDT CPT-27536 Level 3 Long-Term 09:37:40 CDT CPT-06719 Level 3 Long-Term 18:23:02 CDT CPT-06409 Level 3 Long-Term 14:09:06 CDT CPT-05695 Level 3 Long-Term 12:43:27 REINFORCING METAL WORKER CPT-82363 Postop F/U Visit 14:10:15 REINFORCING METAL WORKER CPT-55267 [facility] 17:07:14 REINFORCING METAL WORKER CPT-72899 Level 3 Long-Term 16:14:37 REINFORCING METAL WORKER CPT-20993 Port a cath flush 11:47:42 CDT CPT-05401 Port a cath flush 08:29:49 CDT CPT-OV Office Visit 14:27:58 REINFORCING METAL WORKER
--- OUTSIDE RECORDS SUMMARY | 2016-08-07 13:01 | XMS REPORT | Clinical Summary ---
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 Jonel Hemphill MD Long-term [...] Coronary atherosclerosis of unspecified type of vessel, [place] or graft FH DIABETES V18.0 Resolved Jonel [...] Coronary atherosclerosis of unspecified type of vessel, [place] or graft CONSTIPATION 564.00 Resolved Jonel Hemphill [...] skin and change every 72 hours FENTANYL 56648663359 Active Jonel Hemphill MD Active MIRALAX POWD 17 gms in 4 oz water or juice daily POLYETHYLENE GLYCOL 3350 05954030183 Active Jonel Hemphill MD Active [facility] MELATONIN 3 MG ORAL TABS 2 tabs at hs MELATONIN 12075965933 Active Jonel Hemphill MD Active MAGNESIUM GLUCONATE 500 MG ORAL TABS 1 tab twice daily MAGNESIUM GLUCONATE 49244523478 Active Jonel Hemphill MD Active OMEPRAZOLE 20 MG CPDR 1 tablet by mouth daily OMEPRAZOLE 16743413633 Active Jonel Hemphill MD Active DIGOXIN 125 MCG ORAL TABS 1 daily DIGOXIN 85355507049 Active Jonel Hemphill MD Active DILTIAZEM CD 240 MG ORAL [id number] 1 daily DILTIAZEM HCL COATED BEADS 95955985584 Active Jonel Hemphill MD Active NOVOLOG 100 UNIT/ML SC SOLN 70-140=0U 141-180=2 U 181-220=4U 221-260=6U 261- 300=8U 301-340=10U 748=223=29V 381-400=14U INSULIN ASPART 52709232013 Active Jonel Hemphill MD Active ACETAMINOPHEN 325 MG ORAL TABS 1 tab by mouth every 4 hours as needed ACETAMINOPHEN 19366957300 Active Jonel Hemphill MD Active FENTANYL 12 MCG/HR PT72 Apply to clean, dry skin and change every 72 hours FENTANYL 90421071403 No Longer Active Jonel Hemphill MD Active PHENYTOIN 50 MG CHEW 1 TAB PO BID PHENYTOIN 33213692626 No Longer Active Jonel Hemphill MD Active NORCO 5-325 MG TABS 1-2 TAB Q 6 HRS PRN HYDROCODONE- ACETAMINOPHEN 56503680741 No Longer Active Jonel Hemphill MD Active MULTIVITAMINS CAPS 1 DAILY MULTIPLE VITAMIN 10241635688 No Longer Active Jonel Hemphill MD Active BUPROPION HCL ER (SR) 150 MG [id number] 1 twice a day for depression BUPROPION HCL 05743556697 No Longer Active Jonel Hemphill MD Active LISINOPRIL 20 MG TABS 1 tablet by mouth daily LISINOPRIL 51584396934 Active Jonel Hemphill MD Active ULORIC 40 MG ORAL TABS 1 daily for gout. FEBUXOSTAT 87744401276 No Longer Active Jonel Hemphill MD Active CELEXA 20 MG TABS 1 tablet by mouth daily CITALOPRAM HYDROBROMIDE 61824901157 Active Marleni Raida Active ZOFRAN 4 MG TABS 1 po q6hr PRN Nausea ONDANSETRON HCL 20906744039 Active Jonel Hemphill MD Active XARELTO 20 MG ORAL TABS 1 daily RIVAROXABAN 27001946783 Active Jonel Hemphill MD Active JANUVIA 100 MG ORAL TABS 2 tabs daily SITAGLIPTIN PHOSPHATE 54506525838 Active Jonel Hemphill MD Active CELEXA 20 MG TABS Take 1 tablet 1x daily CITALOPRAM HYDROBROMIDE 48647415999 No Longer Active Jonel Hemphill MD Active ATIVAN 0.5 MG TABS Take 1 tablet 2x daily PRN LORAZEPAM 46491213600 No Longer Active Jonel Hemphill MD Active FUROSEMIDE 80 MG ORAL TABS 1 daily FUROSEMIDE 93827280613 Active Jonel Hemphill MD Active MECLIZINE HCL 25 MG CHEW TAB 1 four times a day as needed for dizziness 02/21 MECLIZINE HCL 12381439001 No Longer Active Jonel Hemphill MD Active ZYLOPRIM 300 MG TAB 1 BY MOUTH DAILY ALLOPURINOL 16803989030 No Longer Active Jonel Hemphill MD Active METOPROLOL TARTRATE 50 MG ORAL TABS 1 TAB BY MOUTH TWICE DAILY METOPROLOL TARTRATE 25369145177 No Longer Active Jonel Hemphill MD Active GABAPENTIN 400 MG ORAL CAPS 1 TAB BY MOUTH THREE TIMES DAILY 2015 GABAPENTIN 39484796670 No Longer Active Jonel Hemphill MD Active HYDROCODONE-ACETAMINOPHEN 7.5-325 MG TABS 1 TAB PO Q 6 HRS PRN HYDROCODONE-ACETAMINOPHEN 21690513797 Active Jonel Hemphill MD Active METFORMIN HCL 1000 MG TABS 1 tablet by mouth twice daily METFORMIN HCL 67228415514 Active Marleni Romero Active KLOR-CON 20 MEQ ORAL PACK 1 BY MOUTH DAILY POTASSIUM CHLORIDE 11935945482 Active Marleni Romero Active A+D FIRST AID EXT OINT APPLY OINTMENT AND RUFINO WRAPS TO LOWER EXTEREMETIES DAILY SKIN PROTECTANTS, MISC. 74410600247 Active Jonel Hemphill MD Active NYSTATIN 211550 UNIT/GM EXT OINT APPLY PRN TID TO GAULDING/RASH IN ABDOMINAL FOLDS NYSTATIN 97561059388 Active Jonel Hemphill MD Active GABAPENTIN 300 MG CAPS 1 CAP PO TID GABAPENTIN 42518785045 No Longer Active Jonel Hemphill MD Active DILANTIN 100 MG ORAL CAPS 1 THREE TIMES DAILY FOR SEIZURES PHENYTOIN SODIUM EXTENDED 77173693138 Active Marleni Romero Active CPAP APPLY AT HS CPAP Active Jonel Hemphill MD Active HYDROCODONE-ACETAMINOPHEN 7.5-325 MG TABS 1 q 6 hrs prn HYDROCODONE-ACETAMINOPHEN 63396913049 No Longer Active Jonel Hemphill MD Active DILANTIN 100 MG CAPS 3 cap tid PHENYTOIN SODIUM EXTENDED 54023952005 No Longer Active Jonel Hemphill MD Active BUDEPRION SR 150 MG [id number] 1 bid BUPROPION HCL 55882287556 No Longer Active Jonel Hemphill MD Active ALLOPURINOL 300 MG TABS 1 qd ALLOPURINOL 72737995288 No Longer Active Jonel Hemphill MD Active COZAAR 100 MG TABS 1 qd LOSARTAN POTASSIUM 58284636385 No Longer Active Jonel Hemphill MD Active CVS VITAMIN C 500 MG TABS 1 po daily ASCORBIC ACID 01611840726 No Longer Active Jonel Hemphill MD Active MIRALAX POWD 17 gms in 4 oz water or juice daily POLYETHYLENE GLYCOL 3350 10526858468 No Longer Active Jonel Hemphill MD Active POTASSIUM CHLORIDE CHELA ER 20 MEQ CR-TABS 1 tab PO daily POTASSIUM CHLORIDE CHELA CR 81798948358 No Longer Active Jonel Hemphill MD Active AMBIEN 10 MG TAB 1 tab by mouth at bedtime as needed for sleep ZOLPIDEM TARTRATE 00113625450 No Longer Active Jonel Hemphill MD Active SULFAMETHOXAZOLE-TMP DS 800-160 MG TABS 1 TAB PO BID SULFAMETHOXAZOLE-TRIMETHOPRIM 85733315482 No Longer Active Jonel Hemphill MD Active LEVEMIR 100 UNIT/ML SOLN 5 units sub-q at bedtime INSULIN DETEMIR 17934693770 No Longer Active Tova Perez Active MOBIC 15 MG TABS 1 tab PO daily for arthritis pain MELOXICAM 58498315694 No Longer Active Tova Perez Active GLUCAGEN 1 MG SOLR INJECT 1MG IM IF BS LESS THAN 60 & RES. IS UNABLE TO SWALLOW GLUCAGON HCL (RDNA) 40687484559 No Longer Active Tova Perez Active [facility]S MILK OF MAGNESIA 1200 MG/15ML SUSP 30 ml daily for constipation MAGNESIUM HYDROXIDE 24736623382 No Longer Active Tova Perez Active IMDUR 120 MG [id number]-THL 1 qd ISOSORBIDE MONONITRATE 31474660681 No Longer Active Tova Perez Active NEURONTIN 400 MG CAPS Take one by mouth 3 times daily, morning, afternoon and evening.] GABAPENTIN 83665937137 No Longer Active Tova Perez Active ANTIVERT 25 MG TABS 1 q 6 hrs prn MECLIZINE HCL 28538519629 No Longer Active Jonel Hemphill MD Active CLONIDINE HCL 0.2 MG TABS 1 q 8 hrs as needed -greater than 160-htn CLONIDINE HCL 88263629378 No Longer Active Jonel Hemphill MD Active AMBIEN 10 MG TABS 1 q hs prn ZOLPIDEM TARTRATE 16770982135 No Longer Active Jonel Hemphill MD Active GNP THERAPEUTIC-M TABS 1 qd MULTIPLE VITAMINS- MINERALS 96338012595 No Longer Active Jonel Hemphill MD Active METOPROLOL TARTRATE 50 MG TABS 1 bid METOPROLOL TARTRATE 51943031635 No Longer Active Jonel Hemphill MD Active METFORMIN HCL 500 MG TABS 1 bod with food METFORMIN HCL 93954291616 No Longer Active Jonel Hemphill MD Active LISINOPRIL 40 MG TABS 1 qd LISINOPRIL 11474939934 No Longer Active Jonel Hemphill MD Active HYDROCHLOROTHIAZIDE 25 MG TABS 1 qd HYDROCHLOROTHIAZIDE 68765206918 No Longer Active Jonel Hemphill MD Active DURAGESIC-25 25 MCG/HR PT72 place 1 patch on the skin q72hrs for pain FENTANYL 87515706067 No Longer Active Jonel Hemphill MD Active FENTANYL 75 MCG/HR PT72 place 1 patch on skin q72hrs fr pain 2012 FENTANYL 58471550014 No Longer Active Jonel Hemphill MD Active FUROSEMIDE 40 MG TABS 1 q am FUROSEMIDE 59864429247 No Longer Active Jonel Hemphill MD Active HEPARIN (PORCINE) LOCK FLUSH 100 UNIT/ML SOLN Flush port a cath monthly every three week on with Heparin and NS HEPARIN LOCK FLUSH 36975605769 Active Jonel Hemphill MD Active FENTANYL 100 MCG/HR PT72 Apply every 3 days FENTANYL 90397066413 Active Jonel Hemphill MD Active FENTANYL 25 MCG/HR PT72 Apply to clean skin and change every 72 hours. 07/03 FENTANYL 35741796421 No Longer Active Jonel Hemphill MD Active FENTANYL 50 MCG/HR PT72 place 1 patch on skin q72 hours FENTANYL 44023618355 No Longer Active Mayco Shah APRN Active DURAGESIC-12 12 MCG/HR PT72 APPLY PATCH TO SKIN AND CHANGE EVERY 72 HOURS, ROTATE SITES FENTANYL 15136065988 No Longer Active Fozia HERNANDEZ Active FUROSEMIDE 20 MG TABS 1 qd FUROSEMIDE 91513309799 No Longer Active [place]any [place] Active ADULT ASPIRIN EC LOW STRENGTH 81 MG TBEC 1 qd ASPIRIN 72113079493 Active MARY Perez Active FUROSEMIDE 20 MG TABS 1 qd FUROSEMIDE 20 MG TABS 978593 FUROSEMIDE Inactive DURAGESIC-12 12 MCG/HR PT72 APPLY PATCH TO SKIN AND CHANGE EVERY 72 HOURS, ROTATE SITES DURAGESIC-12 12 MCG/HR PT72 044248 FENTANYL Inactive FENTANYL 50 MCG/HR PT72 place 1 patch on skin q72 hours FENTANYL 50 MCG/HR PT72 038088 FENTANYL Inactive FUROSEMIDE 40 MG TABS 1 q am FUROSEMIDE 40 MG TABS 154144 FUROSEMIDE Inactive FENTANYL 75 MCG/HR PT72 place 1 patch on skin q72hrs fr pain 2012 FENTANYL 75 MCG/HR PT72 095302 FENTANYL Inactive DURAGESIC-25 25 MCG/HR PT72 place 1 patch on the skin q72hrs for pain DURAGESIC-25 25 MCG/HR PT72 316403 FENTANYL Inactive HYDROCHLOROTHIAZIDE 25 MG TABS 1 qd HYDROCHLOROTHIAZIDE 25 MG TABS 592257 HYDROCHLOROTHIAZIDE Inactive LISINOPRIL 40 MG TABS 1 qd LISINOPRIL 40 MG TABS 710546 LISINOPRIL Inactive METFORMIN HCL 500 MG TABS 1 bod with food METFORMIN HCL 500 MG TABS 209988 METFORMIN HCL Inactive METOPROLOL TARTRATE 50 MG TABS 1 bid METOPROLOL TARTRATE 50 MG TABS 903221 METOPROLOL TARTRATE Inactive GNP THERAPEUTIC-M TABS 1 qd GNP THERAPEUTIC-M TABS MULTIPLE VITAMINS-MINERALS Inactive AMBIEN 10 MG TABS 1 q hs prn AMBIEN 10 MG TABS 728106 ZOLPIDEM TARTRATE Inactive CLONIDINE HCL 0.2 MG TABS 1 q 8 hrs as needed -greater than 160-htn CLONIDINE HCL 0.2 MG TABS 846008 CLONIDINE HCL Inactive ANTIVERT 25 MG TABS 1 q 6 hrs prn ANTIVERT 25 MG TABS MECLIZINE HCL Inactive NEURONTIN 400 MG CAPS Take one by mouth 3 times daily, morning, afternoon and evening.] NEURONTIN 400 MG CAPS 663005 GABAPENTIN Inactive IMDUR 120 MG [id number] 1 qd IMDUR 120 MG [id number] ISOSORBIDE MONONITRATE Inactive [facility] MILK OF MAGNESIA [...] for arthritis pain MOBIC 15 MG TABS 701880 MELOXICAM Inactive LEVEMIR 100 UNIT/ML SOLN 5 units sub-q at bedtime LEVEMIR 100 UNIT/ML SOLN INSULIN DETEMIR Inactive SULFAMETHOXAZOLE-TMP DS 800-160 MG TABS 1 TAB PO BID SULFAMETHOXAZOLE-TMP DS 800-160 MG TABS 272773 SULFAMETHOXAZOLE-TRIMETHOPRIM Inactive AMBIEN 10 MG TAB 1 tab by mouth at bedtime as needed for sleep AMBIEN 10 MG TAB 619747 ZOLPIDEM TARTRATE Inactive POTASSIUM CHLORIDE CHELA ER 20 MEQ CR-TABS 1 tab PO daily POTASSIUM CHLORIDE CHELA ER 20 MEQ CR-TABS POTASSIUM CHLORIDE CHELA CR Inactive MIRALAX POWD 17 gms in 4 oz water or juice daily MIRALAX POWD 076097 POLYETHYLENE GLYCOL 3350 Inactive CVS VITAMIN C 500 MG TABS 1 po daily CVS VITAMIN C 500 MG TABS 602344 ASCORBIC ACID Inactive COZAAR 100 MG TABS 1 qd COZAAR 100 MG TABS 466606 LOSARTAN POTASSIUM Inactive ALLOPURINOL 300 MG TABS 1 qd ALLOPURINOL 300 MG TABS 312638 ALLOPURINOL Inactive BUDEPRION SR 150 MG [id number] 1 bid BUDEPRION SR 150 MG [id number] BUPROPION HCL Inactive DILANTIN 100 MG CAPS 3 cap tid DILANTIN 100 MG CAPS 436367 PHENYTOIN SODIUM EXTENDED Inactive HYDROCODONE-ACETAMINOPHEN 7.5-325 MG TABS 1 q 6 hrs prn HYDROCODONE-ACETAMINOPHEN 7.5-325 MG TABS 049041 HYDROCODONE- ACETAMINOPHEN Inactive GABAPENTIN 300 MG CAPS 1 CAP PO TID GABAPENTIN 300 MG CAPS 498529 GABAPENTIN Inactive GABAPENTIN 400 MG ORAL CAPS 1 TAB BY MOUTH THREE TIMES DAILY 2015 GABAPENTIN 400 MG ORAL CAPS 990051 GABAPENTIN Inactive METOPROLOL TARTRATE 50 MG ORAL TABS 1 TAB BY MOUTH TWICE DAILY METOPROLOL TARTRATE 50 MG ORAL TABS 351297 METOPROLOL TARTRATE Inactive ZYLOPRIM 300 MG TAB 1 BY MOUTH DAILY ZYLOPRIM 300 MG TAB 284106 ALLOPURINOL Inactive MECLIZINE HCL 25 MG CHEW TAB 1 four times a day as needed for dizziness 02/21 MECLIZINE HCL 25 MG CHEW TAB 053029 MECLIZINE HCL Inactive ATIVAN 0.5 MG TABS Take 1 tablet 2x daily PRN ATIVAN 0.5 MG TABS 842648 LORAZEPAM Inactive CELEXA 20 MG TABS Take 1 tablet 1x daily CELEXA 20 MG TABS 316232 CITALOPRAM HYDROBROMIDE Inactive ULORIC 40 MG ORAL TABS 1 daily for gout. ULORIC 40 MG ORAL TABS FEBUXOSTAT Inactive BUPROPION HCL ER (SR) 150 MG [id number] 1 twice a day for depression BUPROPION HCL ER (SR) 150 MG [id number] BUPROPION HCL Inactive MULTIVITAMINS CAPS 1 DAILY MULTIVITAMINS CAPS MULTIPLE VITAMIN Inactive NORCO 5-325 MG TABS 1-2 TAB Q 6 HRS PRN NORCO 5-325 MG TABS 578945 HYDROCODONE-ACETAMINOPHEN Inactive PHENYTOIN 50 MG CHEW 1 TAB PO BID PHENYTOIN 50 MG CHEW 0438634 PHENYTOIN Inactive FENTANYL 12 MCG/HR PT72 Apply to clean, dry skin and change every 72 hours FENTANYL 12 MCG/HR PT72 492140 FENTANYL Inactive FENTANYL 25 MCG/HR PT72 Apply to clean skin and change every 72 hours. 2013/ 05/22 FENTANYL 25 MCG/HR PT72 349427 FENTANYL Inactive Advance Directives Directive Description Start [...] mg/dL Encounters Code Encounter Date Provider Facility CPT-05581 Level 4 Est. Patient 18:47:35 BRIM PRESSER Jonel Hemphill MD [facility] CPT-42282 Level 4 Est. Patient 10:04:48 BRIM PRESSER Jonel Hemphill MD [facility] CPT-31459 Level 3 Est. Patient 19:05:03 CDT Jonel Hemphill MD [facility] CPT-91335 Level 3 Est. Patient 17:30:47 CDT Kevin Link MD [facility]-54309 Level 3 Est. Patient 18:04:07 CDT Jonel Hemphill MD [facility] CPT-76872 Level 3 Est. Patient 17:18:03 CDT Jonel Hmephill MD [facility] CPT-51515 Level 3 Est. Patient 21:58:03 BRIM PRESSER Jonel Hemphill MD [facility] CPT-17873 Level 4 Est. Patient 18:03:14 CDT Jonel Yeager [facility]-75027 Level 4 Est. Patient 13:24:53 CDT Jonel Yeager [facility]-70812 Level 4 Est. Patient 09:15:44 CDT Jonel Yeager [facility]-58296 Level 4 Est. Patient 19:16:01 CDT [facility]34858 Level 4 Est. Patient 11:25:16 CDT Jonel Hemphill MD [facility] CPT-25269 Level 4 Est. Patient 09:00:40 CDT [facility]-57676 Level 4 Est. Patient 14:53:58 CDT Jonel Hemphill MD [facility]-72571 Level 4 Est. Patient 22:59:01 CDT Jonel Hemphill MD [facility]-89757 Level 4 Est. Patient 09:29:57 CDT Jonel Hemphill MD [facility]-42842 Level 4 Est. Patient 12:35:53 BRIM PRESSER Jonel Hemphill MD [facility]-70501 Level 4 Est. Patient 22:36:09 BRIM PRESSER Jonel Hemphill MD [facility]-38047 Level 2 Est. Patient 15:14:15 BRIM PRESSER Mayco Shah APRN [facility]-52565 Level 4 Est. Patient 10:36:22 BRIM PRESSER Jonel Hemphill MD [facility] CPT-99566 Level 4 Est. Patient 22:01:13 BRIM PRESSER Jonel Hemphill MD [facility]-54977 Level 3 Est. Patient 21:50:37 BRIM PRESSER Jonel Hemphill MD [facility] CPT-82448 Level 4 Est. Patient 15:02:43 CDT Rubin Pierre MD [facility]-19832 Level 4 Est. Patient 14:27:35 CDT Jonel Hemphill MD [facility]-15658 Level 4 Est. Patient 12:41:17 CDT Jonel Hemphill MD [facility]-71841 Level 4 Est. Patient 16:18:55 CDT Jonel Hemphill MD [facility] CPT-46150 Level 4 Est. Patient 17:58:05 CDT Jonel Hemphill MD [facility] CPT-25636 Level 4 Est. Patient 22:10:06 CDT Jonel Hemphill MD [facility] CPT-48256 Level 4 Est. Patient 13:22:09 CDT Jonel Hemphill MD [facility] CPT-14817 Level 4 Est. Patient 22:52:17 BRIM PRESSER Jonel Hemphill MD [facility] CPT-52960 Level 3 Est. Patient 22:34:10 BRIM PRESSER Jonel Hemphill MD [facility] CPT-37120 Level 4 Est. Patient 07:49:20 BRIM PRESSER Jonel Hemphill MD [facility] Skilled CPT-29789 Level 3 Est. Patient 08:28:27 BRIM PRESSER Jonel Hemphill MD [facility] Procedures Code Procedure Name Date Entry Date Standard Description CPT-28868 Level 3 Residential 17:57:17 BRIM PRESSER CPT-18839 Level 3 Residential 21:14:15 BRIM PRESSER CPT-02881 Level 3 Residential 15:38:24 CDT CPT-71775 Level 3 Residential 08:18:30 CDT CPT-61044 Level 3 Residential 19:03:14 CDT CPT-96592 Level 3 Residential 17:42:11 CDT CPT-91825 Level 3 Residential 16:04:10 CDT CPT-39248 Level 3 Residential 19:38:15 BRIM PRESSER CPT-20473 Level 3 Residential 19:28:48 BRIM PRESSER CPT-14152 Level 3 Residential 18:02:20 BRIM PRESSER CPT-20042 Level 3 Residential 15:02:14 BRIM PRESSER CPT-68856 Level 3 Residential 12:25:37 CDT CPT-29402 Level 3 Residential 12:48:39 CDT CPT-47203 Level 3 Residential 17:39:14 CDT CPT-89837 Level 3 Residential 13:32:58 CDT CPT-41796 Level 3 Residential 17:43:43 CDT CPT-59924 Level 3 Residential 12:03:33 BRIM PRESSER CPT-05750 Level 3 Residential 18:47:28 BRIM PRESSER CPT-27294 Level 3 Residential 17:35:26 BRIM PRESSER CPT-58946 Level 3 Residential 18:44:49 BRIM PRESSER CPT-48735 Level 3 Residential 18:17:33 CDT CPT-70004 Level 3 Residential 09:25:33 CDT CPT-40766 Level 3 Residential 19:11:57 CDT CPT-31155 Level 3 Residential 09:25:52 CDT CPT-97172 Level 3 Residential 14:23:59 CDT CPT-70272 Level 3 Residential 12:09:43 CDT CPT-54412 Level 3 Residential 09:37:40 CDT CPT-78578 Level 3 Residential 18:23:02 CDT CPT-75933 Level 3 Residential 14:09:06 CDT CPT-24809 Level 3 Residential 12:43:27 BRIM PRESSER CPT-45350 Postop F/U Visit 14:10:15 BRIM PRESSER CPT-53114 [facility] 17:07:14 BRIM PRESSER CPT-93918 Level 3 Residential 16:14:37 BRIM PRESSER CPT-86730 Port a cath flush 11:47:42 CDT CPT-00128 Port a cath flush 08:29:49 CDT CPT-OV Office Visit 14:27:58 BRIM PRESSER
--- OUTSIDE RECORDS SUMMARY | 2016-08-07 13:03 | XMS REPORT | Clinical Summary ---
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 Resolved Jonel Hemphill MD Long-term [...] Coronary atherosclerosis of unspecified type of vessel, [place] or graft FH DIABETES V18.0 Resolved Jonel Hemphill MD Family history of diabetes mellitus FH STROKE V17.1 Resolved Jonel Hemphill MD Family history of stroke (cerebrovascular) FAMILY HISTORY COLON CANCER-MOTHER V16.0 Resolved Jonel Hemphill MD Family history of malignant neoplasm of gastrointestinal tract VENOUS INSUFFICIENCY 459.81 Resolved Jonel Hemphill MD Venous (peripheral) insufficiency, unspecified SLEEP APNEA 780.57 Resolved Jonle Hemphill MD Unspecified sleep apnea PERIPHERAL NEUROPATHY [...] Coronary atherosclerosis of unspecified type of vessel, [place] or graft CONSTIPATION 564.00 Resolved Jonel Hemphill [...] Obstructive sleep apnea (adult) (pediatric) 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, 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 ICD-V58.69 Inactive Jonel Hemphill MD DIABETES, [...] skin and change every 72 hours FENTANYL 34923418562 Active Tova Chris Active MIRALAX POWD 17 gms in 4 oz water or juice daily POLYETHYLENE GLYCOL 3350 40699957214 Active Jonel Hemphill MD Active CVS MELATONIN 3 MG ORAL TABS 2 tabs at hs MELATONIN 45285952647 Active Jonel Hemphill MD Active MAGNESIUM GLUCONATE 500 MG ORAL TABS 1 tab twice daily MAGNESIUM GLUCONATE 33933688477 Active Jonel Hemphill MD Active OMEPRAZOLE 20 MG CPDR 1 tablet by mouth daily OMEPRAZOLE 68517143378 Active Jonel Hemphill MD Active DIGOXIN 125 MCG ORAL TABS 1 daily DIGOXIN 13514705892 Active Jonel Hemphill MD Active DILTIAZEM CD 240 MG ORAL [id number] 1 daily DILTIAZEM HCL COATED BEADS 82313502568 Active Jonel Hemphill MD Active NOVOLOG 100 UNIT/ML SC SOLN 70-140=0U 141-180=2 U 181-220=4U 221-260=6U 261- 300=8U 301-340=10U 005=203=39V 381-400=14U INSULIN ASPART 38391238413 Active Jonel Hemphill MD Active ACETAMINOPHEN 325 MG ORAL TABS 1 tab by mouth every 4 hours as needed ACETAMINOPHEN 74130030615 Active Jonel Hemphill MD Active FENTANYL 12 MCG/HR PT72 Apply to clean, dry skin and change every 72 hours FENTANYL 94549768015 No Longer Active Jonel Hemphill MD Active PHENYTOIN 50 MG CHEW 1 TAB PO BID PHENYTOIN 18026586663 No Longer Active Jonel Hemphill MD Active NORCO 5-325 MG TABS 1-2 TAB Q 6 HRS PRN HYDROCODONE- ACETAMINOPHEN 94148977176 No Longer Active Jonel Hemphill MD Active MULTIVITAMINS CAPS 1 DAILY MULTIPLE VITAMIN 80857194523 No Longer Active Jonel Hemphill MD Active BUPROPION HCL ER (SR) 150 MG [id number]-[id number] 1 twice a day for depression BUPROPION HCL 78531593143 No Longer Active Jonel Hemphill MD Active LISINOPRIL 20 MG TABS 1 tablet by mouth daily LISINOPRIL 48304625803 Active Jonel Hemphill MD Active ULORIC 40 MG ORAL TABS 1 daily for gout. FEBUXOSTAT 70844878105 No Longer Active Jonel Hemphill MD Active CELEXA 20 MG TABS 1 tablet by mouth daily CITALOPRAM HYDROBROMIDE 80547612672 Active Marleni Raida Active ZOFRAN 4 MG TABS 1 po q6hr PRN Nausea ONDANSETRON HCL 08652195396 Active Jonel Hemphill MD Active XARELTO 20 MG ORAL TABS 1 daily RIVAROXABAN 88430599765 Active Jonel Hemphill MD Active JANUVIA 100 MG ORAL TABS 2 tabs daily SITAGLIPTIN PHOSPHATE 27761797247 Active Jonel Hemphill MD Active CELEXA 20 MG TABS Take 1 tablet 1x daily CITALOPRAM HYDROBROMIDE 99256265781 No Longer Active Jonel Hemphill MD Active ATIVAN 0.5 MG TABS Take 1 tablet 2x daily PRN LORAZEPAM 00905396360 No Longer Active Jonel Hemphill MD Active FUROSEMIDE 80 MG ORAL TABS 1 daily FUROSEMIDE 52436934379 Active Jonel Hemphill MD Active MECLIZINE HCL 25 MG CHEW TAB 1 four times a day as needed for dizziness 02/21 MECLIZINE HCL 93154515513 No Longer Active Jonel Hemphill MD Active ZYLOPRIM 300 MG TAB 1 BY MOUTH DAILY ALLOPURINOL 25105420482 No Longer Active Jonel Hemphill MD Active METOPROLOL TARTRATE 50 MG ORAL TABS 1 TAB BY MOUTH TWICE DAILY METOPROLOL TARTRATE 68219684995 No Longer Active Jonel Hemphill MD Active GABAPENTIN 400 MG ORAL CAPS 1 TAB BY MOUTH THREE TIMES DAILY 2015 GABAPENTIN 82342979267 No Longer Active Jonel Hemphill MD Active HYDROCODONE-ACETAMINOPHEN 7.5-325 MG TABS 1 TAB PO Q 6 HRS PRN HYDROCODONE-ACETAMINOPHEN 76911736506 Active Jonel Hemphill MD Active METFORMIN HCL 1000 MG TABS 1 tablet by mouth twice daily METFORMIN HCL 94314522526 Active Marleni Romero Active KLOR-CON 20 MEQ ORAL PACK 1 BY MOUTH DAILY POTASSIUM CHLORIDE 47540589178 Active Marleni Romero Active A+D FIRST AID EXT OINT APPLY OINTMENT AND RUFINO WRAPS TO LOWER EXTEREMETIES DAILY SKIN PROTECTANTS, MISC. 70376100757 Active Jonel Hemphill MD Active NYSTATIN 470189 UNIT/GM EXT OINT APPLY PRN TID TO GAULDING/RASH IN ABDOMINAL FOLDS NYSTATIN 63869404233 Active Jonel Hemphill MD Active GABAPENTIN 300 MG CAPS 1 CAP PO TID GABAPENTIN 71276087765 No Longer Active Jonel Hemphill MD Active DILANTIN 100 MG ORAL CAPS 1 THREE TIMES DAILY FOR SEIZURES PHENYTOIN SODIUM EXTENDED 81763411816 Active Marleni Romero Active CPAP APPLY AT HS CPAP Active Jonel Hemphill MD Active HYDROCODONE-ACETAMINOPHEN 7.5-325 MG TABS 1 q 6 hrs prn HYDROCODONE-ACETAMINOPHEN 30731938642 No Longer Active Jonel Hemphill MD Active DILANTIN 100 MG CAPS 3 cap tid PHENYTOIN SODIUM EXTENDED 93706500432 No Longer Active Jonel Hemphill MD Active BUDEPRION SR 150 MG [id number] 1 bid BUPROPION HCL 32997880585 No Longer Active Jonel Hemphill MD Active ALLOPURINOL 300 MG TABS 1 qd ALLOPURINOL 16490173158 No Longer Active Jonel Hemphill MD Active COZAAR 100 MG TABS 1 qd LOSARTAN POTASSIUM 52269398206 No Longer Active Jonel Hemphill MD Active CVS VITAMIN C 500 MG TABS 1 po daily ASCORBIC ACID 26867333263 No Longer Active Jonel Hemphill MD Active MIRALAX POWD 17 gms in 4 oz water or juice daily POLYETHYLENE GLYCOL 3350 79210467284 No Longer Active Jonel Hemphill MD Active POTASSIUM CHLORIDE CHELA ER 20 MEQ CR-TABS 1 tab PO daily POTASSIUM CHLORIDE CHELA CR 37778759360 No Longer Active Jonel Hemphill MD Active AMBIEN 10 MG TAB 1 tab by mouth at bedtime as needed for sleep ZOLPIDEM TARTRATE 54519876169 No Longer Active Jonel Hemphill MD Active SULFAMETHOXAZOLE-TMP DS 800-160 MG TABS 1 TAB PO BID SULFAMETHOXAZOLE-TRIMETHOPRIM 72022874036 No Longer Active Jonel Hemphill MD Active LEVEMIR 100 UNIT/ML SOLN 5 units sub-q at bedtime INSULIN DETEMIR 68525964700 No Longer Active Tova Perez Active MOBIC 15 MG TABS 1 tab PO daily for arthritis pain MELOXICAM 26766393912 No Longer Active Tova Perez Active GLUCAGEN 1 MG SOLR INJECT 1MG IM IF BS LESS THAN 60 & RES. IS UNABLE TO SWALLOW GLUCAGON HCL (RDNA) 59851059142 No Longer Active Tova Perez Active CVS MILK OF MAGNESIA 1200 MG/15ML SUSP 30 ml daily for constipation MAGNESIUM HYDROXIDE 96427807952 No Longer Active Tova Perez Active IMDUR 120 MG [id number] 1 qd ISOSORBIDE MONONITRATE 37001589159 No Longer Active Tova Perez Active NEURONTIN 400 MG CAPS Take one by mouth 3 times daily, morning, afternoon and evening.] GABAPENTIN 18247144004 No Longer Active Tova Perez Active ANTIVERT 25 MG TABS 1 q 6 hrs prn MECLIZINE HCL 06407028279 No Longer Active Jonel Hemphill MD Active CLONIDINE HCL 0.2 MG TABS 1 q 8 hrs as needed -greater than 160-htn CLONIDINE HCL 85249211248 No Longer Active Jonel Hemphill MD Active AMBIEN 10 MG TABS 1 q hs prn ZOLPIDEM TARTRATE 77655174862 No Longer Active Jonel Hemphill MD Active GNP THERAPEUTIC-M TABS 1 qd MULTIPLE VITAMINS- MINERALS 46223258253 No Longer Active Jonel Hemphill MD Active METOPROLOL TARTRATE 50 MG TABS 1 bid METOPROLOL TARTRATE 14976244863 No Longer Active Jonel Hemphill MD Active METFORMIN HCL 500 MG TABS 1 bod with food METFORMIN HCL 61136205709 No Longer Active Jonel Hemphill MD Active LISINOPRIL 40 MG TABS 1 qd LISINOPRIL 61028303101 No Longer Active Jonel Hemphill MD Active HYDROCHLOROTHIAZIDE 25 MG TABS 1 qd HYDROCHLOROTHIAZIDE 80989822626 No Longer Active Jonel Hemphill MD Active DURAGESIC-25 25 MCG/HR PT72 place 1 patch on the skin q72hrs for pain FENTANYL 04420310520 No Longer Active Jonel Hemphill MD Active FENTANYL 75 MCG/HR PT72 place 1 patch on skin q72hrs fr pain 2012 FENTANYL 77894430396 No Longer Active Jonel Hemphill MD Active FUROSEMIDE 40 MG TABS 1 q am FUROSEMIDE 32026970699 No Longer Active Jonel Hemphill MD Active HEPARIN (PORCINE) LOCK FLUSH 100 UNIT/ML SOLN Flush port a cath monthly every three week on with Heparin and NS HEPARIN LOCK FLUSH 90625003365 Active Jonel Hemphill MD Active FENTANYL 100 MCG/HR PT72 Apply every 3 days FENTANYL 66057796055 Active Jonel Hemphill MD Active FENTANYL 25 MCG/HR PT72 Apply to clean skin and change every 72 hours. 07/03 FENTANYL 93327194549 No Longer Active Jonel Hemphill MD Active FENTANYL 50 MCG/HR PT72 place 1 patch on skin q72 hours FENTANYL 91390099654 No Longer Active Mayco Shah APRN Active DURAGESIC-12 12 MCG/HR PT72 APPLY PATCH TO SKIN AND CHANGE EVERY 72 HOURS, ROTATE SITES FENTANYL 44395294852 No Longer Active Fozia YANGA Active FUROSEMIDE 20 MG TABS 1 qd FUROSEMIDE 50291374558 No Longer Active Mahogany Ottertail Active ADULT ASPIRIN EC LOW STRENGTH 81 MG TBEC 1 qd ASPIRIN 40826254563 Active MARY Perez Active FUROSEMIDE 20 MG TABS 1 qd FUROSEMIDE 20 MG TABS 863245 FUROSEMIDE Inactive DURAGESIC-12 12 MCG/HR PT72 APPLY PATCH TO SKIN AND CHANGE EVERY 72 HOURS, ROTATE SITES DURAGESIC-12 12 MCG/HR PT72 375374 FENTANYL Inactive FENTANYL 50 MCG/HR PT72 place 1 patch on skin q72 hours FENTANYL 50 MCG/HR PT72 367154 FENTANYL Inactive FUROSEMIDE 40 MG TABS 1 q am FUROSEMIDE 40 MG TABS 106027 FUROSEMIDE Inactive FENTANYL 75 MCG/HR PT72 place 1 patch on skin q72hrs fr pain 2012 FENTANYL 75 MCG/HR PT72 616667 FENTANYL Inactive DURAGESIC-25 25 MCG/HR PT72 place 1 patch on the skin q72hrs for pain DURAGESIC-25 25 MCG/HR PT72 056256 FENTANYL Inactive HYDROCHLOROTHIAZIDE 25 MG TABS 1 qd HYDROCHLOROTHIAZIDE 25 MG TABS 342548 HYDROCHLOROTHIAZIDE Inactive LISINOPRIL 40 MG TABS 1 qd LISINOPRIL 40 MG TABS 733932 LISINOPRIL Inactive METFORMIN HCL 500 MG TABS 1 bod with food METFORMIN HCL 500 MG TABS 908847 METFORMIN HCL Inactive METOPROLOL TARTRATE 50 MG TABS 1 bid METOPROLOL TARTRATE 50 MG TABS 302115 METOPROLOL TARTRATE Inactive GNP THERAPEUTIC-M TABS 1 qd GNP THERAPEUTIC-M TABS MULTIPLE VITAMINS-MINERALS Inactive AMBIEN 10 MG TABS 1 q hs prn AMBIEN 10 MG TABS 083362 ZOLPIDEM TARTRATE Inactive CLONIDINE HCL 0.2 MG TABS 1 q 8 hrs as needed -greater than 160-htn CLONIDINE HCL 0.2 MG TABS 402559 CLONIDINE HCL Inactive ANTIVERT 25 MG TABS 1 q 6 hrs prn ANTIVERT 25 MG TABS MECLIZINE HCL Inactive NEURONTIN 400 MG CAPS Take one by mouth 3 times daily, morning, afternoon and evening.] NEURONTIN 400 MG CAPS 380104 GABAPENTIN Inactive IMDUR 120 MG [id number] 1 qd IMDUR 120 MG [id number] ISOSORBIDE MONONITRATE Inactive CVS MILK OF MAGNESIA [...] for arthritis pain MOBIC 15 MG TABS 350464 MELOXICAM Inactive LEVEMIR 100 UNIT/ML SOLN 5 units sub-q at bedtime LEVEMIR 100 UNIT/ML SOLN INSULIN DETEMIR Inactive SULFAMETHOXAZOLE-TMP DS 800-160 MG TABS 1 TAB PO BID SULFAMETHOXAZOLE-TMP DS 800-160 MG TABS 276071 SULFAMETHOXAZOLE-TRIMETHOPRIM Inactive AMBIEN 10 MG TAB 1 tab by mouth at bedtime as needed for sleep AMBIEN 10 MG TAB 469541 ZOLPIDEM TARTRATE Inactive POTASSIUM CHLORIDE CHELA ER 20 MEQ CR-TABS 1 tab PO daily POTASSIUM CHLORIDE CHELA ER 20 MEQ CR-TABS POTASSIUM CHLORIDE CHELA CR Inactive MIRALAX POWD 17 gms in 4 oz water or juice daily MIRALAX POWD 492753 POLYETHYLENE GLYCOL 3350 Inactive CVS VITAMIN C 500 MG TABS 1 po daily CVS VITAMIN C 500 MG TABS 856711 ASCORBIC ACID Inactive COZAAR 100 MG TABS 1 qd COZAAR 100 MG TABS 651372 LOSARTAN POTASSIUM Inactive ALLOPURINOL 300 MG TABS 1 qd ALLOPURINOL 300 MG TABS 686542 ALLOPURINOL Inactive BUDEPRION SR 150 MG [id number] 1 bid BUDEPRION SR 150 MG [id number] BUPROPION HCL Inactive DILANTIN 100 MG CAPS 3 cap tid DILANTIN 100 MG CAPS 967592 PHENYTOIN SODIUM EXTENDED Inactive HYDROCODONE-ACETAMINOPHEN 7.5-325 MG TABS 1 q 6 hrs prn HYDROCODONE-ACETAMINOPHEN 7.5-325 MG TABS 381369 HYDROCODONE- ACETAMINOPHEN Inactive GABAPENTIN 300 MG CAPS 1 CAP PO TID GABAPENTIN 300 MG CAPS 876524 GABAPENTIN Inactive GABAPENTIN 400 MG ORAL CAPS 1 TAB BY MOUTH THREE TIMES DAILY 2015 GABAPENTIN 400 MG ORAL CAPS 503422 GABAPENTIN Inactive METOPROLOL TARTRATE 50 MG ORAL TABS 1 TAB BY MOUTH TWICE DAILY METOPROLOL TARTRATE 50 MG ORAL TABS 194108 METOPROLOL TARTRATE Inactive ZYLOPRIM 300 MG TAB 1 BY MOUTH DAILY ZYLOPRIM 300 MG TAB 443731 ALLOPURINOL Inactive MECLIZINE HCL 25 MG CHEW TAB 1 four times a day as needed for dizziness 02/21 MECLIZINE HCL 25 MG CHEW TAB 641802 MECLIZINE HCL Inactive ATIVAN 0.5 MG TABS Take 1 tablet 2x daily PRN ATIVAN 0.5 MG TABS 207030 LORAZEPAM Inactive CELEXA 20 MG TABS Take 1 tablet 1x daily CELEXA 20 MG TABS 671397 CITALOPRAM HYDROBROMIDE Inactive ULORIC 40 MG ORAL TABS 1 daily for gout. ULORIC 40 MG ORAL TABS FEBUXOSTAT Inactive BUPROPION HCL ER (SR) 150 MG [id number] 1 twice a day for depression BUPROPION HCL ER (SR) 150 MG [id number] BUPROPION HCL Inactive MULTIVITAMINS CAPS 1 DAILY MULTIVITAMINS CAPS MULTIPLE VITAMIN Inactive NORCO 5-325 MG TABS 1-2 TAB Q 6 HRS PRN NORCO 5-325 MG TABS 716339 HYDROCODONE-ACETAMINOPHEN Inactive PHENYTOIN 50 MG CHEW 1 TAB PO BID PHENYTOIN 50 MG CHEW 3529254 PHENYTOIN Inactive FENTANYL 12 MCG/HR PT72 Apply to clean, dry skin and change every 72 hours FENTANYL 12 MCG/HR PT72 121381 FENTANYL Inactive FENTANYL 25 MCG/HR PT72 Apply to clean skin and change every 72 hours. 07/03 FENTANYL 25 MCG/HR PT72 735168 FENTANYL Inactive Advance Directives Directive Description Start [...] serum 4.1 mmol/L sodium, serum 139 mmol/L creatinine, serum 1.17 mg/dL blood glucose 239 mg/dL potassium, serum 4.8 mmol/L sodium, serum 139 mmol/L Encounters Code Encounter Date Provider Facility CPT-44301 Level 3 Est. Patient 19:05:03 CDT Jonel Hemphill MD [facility]-63095 Level 3 Est. Patient 17:30:47 CDT Kevin Link MD [facility]-30394 Level 3 Est. Patient 18:04:07 CDT Jonel Hemphill MD [facility] CPT-87400 Level 3 Est. Patient 17:18:03 CDT Jonel Hemphill MD [facility]-92289 Level 3 Est. 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 Patient 18:03:14 CDT Jonel Yeager [facility]-56394 Level 4 Est. Patient 13:24:53 CDT Jonel Yeager [facility]41378 Level 4 Est. Patient 09:15:44 CDT Jonel Yeager [facility]-72655 Level 4 Est. Patient 19:16:01 CDT [facility]42759 Level 4 Est. Patient 11:25:16 CDT Jonel Hemphill MD [facility] CPT-63046 Level 4 Est. Patient 09:00:40 CDT [facility]-50823 Level 4 Est. Patient 14:53:58 CDT Jonel Hemphill MD [facility] CPT-63624 Level 4 Est. Patient 22:59:01 CDT Jonel Hemphill MD [facility]-72041 Level 4 Est. Patient 09:29:57 CDT Jonel Hemphill MD [facility]-44942 Level 4 Est. 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-76385 Level 4 Est. 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 Patient 15:02:43 CDT Rubin Pierre MD [facility]-20299 Level 4 Est. Patient 14:27:35 CDT Jonel Hemphill MD [facility]-12689 Level 4 Est. Patient 12:41:17 CDT Jonel Hemphill MD [facility]-05178 Level 4 Est. Patient 16:18:55 CDT Jonel Hemphill MD [facility] CPT-17323 Level 4 Est. Patient 17:58:05 CDT Jonel Hemphill MD [facility] CPT-47251 Level 4 Est. Patient 22:10:06 CDT Jonel Hemphill MD [facility] CPT-43651 Level 4 Est. Patient 13:22:09 CDT Jonel Hemphill MD [facility] CPT-27444 Level 4 Est. 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 CPT-22689 Level 3 Residential 12:25:37 CDT CPT-80882 Level 3 Residential 12:48:39 CDT CPT-66819 Level 3 Residential 17:39:14 CDT CPT-33026 Level 3 Residential 13:32:58 CDT CPT-83793 Level 3 Residential 17:43:43 CDT CPT-12576 Level 3 Residential 12:03:33 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 CPT-49311 Level 3 Residential 18:47:28 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 CPT-29124 Level 3 Residential 17:35:26 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 CPT-00886 Level 3 Residential 18:44:49 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 CPT-01178 Level 3 Residential 18:17:33 CDT CPT-74215 Level 3 Residential 09:25:33 CDT CPT-69816 Level 3 Residential 19:11:57 CDT CPT-02411 Level 3 Residential 09:25:52 CDT CPT-86997 Level 3 Residential 14:23:59 CDT CPT-67066 Level 3 Residential 12:09:43 CDT CPT-56020 Level 3 Residential 09:37:40 CDT CPT-34257 Level 3 Residential 18:23:02 CDT CPT-80283 Level 3 Residential 14:09:06 CDT CPT-98618 Level 3 Residential 12:43:27 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
--- OUTSIDE RECORDS SUMMARY | 2016-08-07 13:04 | XMS REPORT | CCD ---
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 Farmer Name Role Phone [facility] Att[facility] H., LYNN Braden NASST C., SHADIA Keen NASST L., PAOLA Simmons NASST S., JAMES NASST A., SYEDA NASST S., ZAKIYA Braden NASST P., CARLY NASST S., MILLY NASST V., TERESA A NASST G., SUNSHINE NASST R., FOREIGN NASST H., GENE R NASST P., CHUCK NASST F., MIGUEL A NASST S., SHADIA NASST B., PRISCILLA Keen NASST D., EVELYN Cervantes NASST B., CEDRIC NASST O., CARLO B NASST F., STEVEN NASST R., LISANDRA NASST B., ALIE NASST R., REBECCA NASST F., CRISSY NASST M., DILIA Braden NASST SORAYA Griffith NASST Vital Signs Vital Sign Value Unit Date/Time Recent/Initial? BP Systolic 117 mmHg 03/21/2015 10:52 Initial VS BP Diastolic 58 mmHg 03/21/2015 10:52 Initial VS Respiratory Rate 27 bpm 03/21/2015 10:54 Initial VS Heart Rate 110 bpm 03/21/2015 10:54 Initial VS O2 % BldC Oximetry 93 % 03/21/2015 10:54 Initial VS Body Temperature 101 degrees 03/21/2015 11:21 Initial VS Weight Measured 393 lbs 03/21/2015 11:22 Initial VS Height 68 in 03/21/2015 11:22 Initial VS BMI (Body Mass Index) 59.75 kg/m^2 03/21/2015 11:22 Initial VS BSA (Body Surface Area) 2.92 m^2 03/21/2015 11:22 Initial VS Weight Measured 404.2 lbs 03/27/2015 06:12 Most Recent VS Height 68 in 03/27/2015 06:12 Most Recent VS BMI (Body Mass Index) 61.46 kg/m^2 03/27/2015 06:12 Most Recent VS BSA (Body Surface Area) 2.97 m^2 03/27/2015 06:12 Most Recent VS BP Systolic 138 mmHg 03/27/2015 07:30 Most Recent VS BP Diastolic 89 mmHg 03/27/2015 07:30 Most Recent VS Respiratory Rate 20 bpm 03/27/2015 07:30 Most Recent VS Heart Rate 132 bpm 03/27/2015 07:30 Most Recent VS O2 % BldC Oximetry 98 % 03/27/2015 07:30 Most Recent VS Body Temperature 98.3 degrees 03/27/2015 07:30 Most Recent VS Allergies Allergy Code Allergy Type Reaction Status PENICILLIN 29645 Drug allergy Active Procedures Procedure Code Procedure Type Date Assistance with Respiratory Ventilation, 24-96 Consecutive Hours, Continuo [id number] ICD-10 PCS 03/21/[id number] 03/21/2015 CPAP/BIPAP INITIATION & MANAGEMENT 28014838 SNOMED CT 08/2015 CPAP/BIPAP PER HOUR 36431114 SNOMED CT 03/21/2015 CPAP/BIPAP PER HOUR 56168795 SNOMED CT 03/21/2015 CPAP/BIPAP PER HOUR 63816329 SNOMED CT 03/21/2015 BAN AERO ECLIPSE TREATMENT #[address] 2015 BAN AERO ECLIPSE TREATMENT #[address] 2015 CPAP/BIPAP PER HOUR 98876002 SNOMED CT 03/22/2015 CPAP/BIPAP PER HOUR 46615006 SNOMED CT 03/22/2015 CPAP/BIPAP PER HOUR 60476455 SNOMED CT 03/22/2015 CPAP/BIPAP PER HOUR 93075548 SNOMED CT 03/22/2015 CPAP/BIPAP INITIATION & MANAGEMENT 08251753 SNOMED CT 09/2015 BAN AERO ECLIPSE TREATMENT #[address] 2015 BAN AERO ECLIPSE TREATMENT #[address] 2015 CPAP/BIPAP PER HOUR 86043183 SNOMED CT 03/23/2015 CPAP/BIPAP PER HOUR 75190981 SNOMED CT 03/23/2015 CPAP/BIPAP PER HOUR 25314115 SNOMED CT 03/23/2015 CPAP/BIPAP INITIATION & MANAGEMENT 93564978 SNOMED CT 10/2015 BAN AERO ECLIPSE TREATMENT #[address] 2015 BAN AERO ECLIPSE TREATMENT #[address] 2015 CPAP/BIPAP PER HOUR 42987505 SNOMED CT 03/24/2015 CPAP/BIPAP PER HOUR 60038054 SNOMED CT 03/24/2015 CPAP/BIPAP PER HOUR 47933450 SNOMED CT 03/24/2015 CPAP/BIPAP PER HOUR 39666107 SNOMED CT 03/24/2015 CPAP/BIPAP PER HOUR 56962559 SNOMED CT 03/24/2015 CPAP/BIPAP PER HOUR 39914338 SNOMED CT 03/24/2015 CPAP/BIPAP INITIATION & MANAGEMENT 04135287 SNOMED CT 11/2015 BAN AERO ECLIPSE TREATMENT #[address] 2015 BAN AERO ECLIPSE TREATMENT #[address] 2015 CPAP/BIPAP PER HOUR 73502162 SNOMED CT 03/25/2015 CPAP/BIPAP PER HOUR 43466543 SNOMED CT 03/25/2015 CPAP/BIPAP PER HOUR 82232207 SNOMED CT 03/25/2015 CPAP/BIPAP PER HOUR 15640017 SNOMED CT 03/25/2015 CPAP/BIPAP PER HOUR 02761771 SNOMED CT 03/25/2015 CPAP/BIPAP INITIATION & MANAGEMENT 31206235 SNOMED CT 12/2015 BAN AERO ECLIPSE TREATMENT #[address] 2015 BAN AERO ECLIPSE TREATMENT #[address] 2015 CPAP/BIPAP INITIATION & MANAGEMENT 07711612 SNOMED CT 01/2016 BAN AERO ECLIPSE TREATMENT #[address] 2015 CPAP/BIPAP INITIATION & MANAGEMENT 94266277 SNOMED CT LACTIC ACID 4595069 SNOMED CT 03/21/[address] 03/21/2015 UA ROUTINE C&S IF IND 827791633 SNOMED CT 03/21/2015 VENOUS BLOOD GAS 05880938 SNOMED CT 03/21/2015 [address] 4917[address] 03/21/2015 GRAM STAIN 91848562 SNOMED CT 03/21/2015 CBC W/ AUTO DIFF (RFLX MAN DIFF IF IND) 1263526 SNOMED CT 03/22/2015 RENAL FUNCTION PANEL 990091895 SNOMED CT 03/22/[address] 03/22/2015 CULTURE SPUTUM 738878457 SNOM[address] 03/21/[address] 03/21/2015 HGB A1C (SEND-OUT) 65226800 SNOMED CT 03/22/2015 TROPONIN-I ADV 798232455 SNOMED CT 03/21/2015 BEDSIDE GLUCOSE 40093451 SNOMED CT 03/21/2015 VENOUS BLOOD GAS 38533556 SNOMED CT 03/21/2015 COMPREHENSIVE METABOLIC PANEL 375513931 SNOMED CT 2015 BEDSIDE GLUCOSE 17075322 SNOMED CT 03/21/2015 VENOUS BLOOD GAS 16707895 SNOMED CT 03/22/2015 VANCOMYCIN TROUGH 446334379 SNOMED CT 03/23/2015 IRON TOTAL 04684278 SNOMED CT 03/22/[address] 03/22/2015 OCCULT BLOOD iFOBT 806326723 SNOMED CT 03/22/2015 CBC W/ AUTO DIFF (RFLX MAN DIFF IF IND) 9457452 SNOMED CT 03/23/2015 COMPREHENSIVE METABOLIC PANEL 584147638 SNOMED CT [address] 03/23/[address] 03/23/2015 BEDSIDE GLUCOSE 74422844 SNOMED CT 03/22/2015 BEDSIDE GLUCOSE 87664625 SNOMED CT 03/22/2015 BEDSIDE GLUCOSE 36427267 SNOMED CT 03/22/2015 BEDSIDE GLUCOSE 94062982 SNOMED CT 03/22/2015 CULTURE BLOOD 59348223 SNOMED CT 03/22/2015 CULTURE BLOOD 91501266 SNOMED CT 03/22/2015 BEDSIDE GLUCOSE 81269596 SNOMED CT 03/23/2015 ^CBC W/AUTO DIFF 7418350 SNOMED CT 03/23/2015 VANCOMYCIN TROUGH 490655344 SNOMED CT 03/25/2015 CBC W/ AUTO DIFF (RFLX MAN DIFF IF IND) 8615066 SNOMED CT 03/24/2015 COMPREHENSIVE METABOLIC PANEL 167132505 SNOMED CT [address] 03/24/[address] 03/24/2015 BEDSIDE GLUCOSE 97736657 SNOMED CT 03/23/2015 BEDSIDE GLUCOSE 12764323 SNOMED CT 03/23/2015 BEDSIDE GLUCOSE 95933630 SNOMED CT 03/23/2015 TROPONIN-I ADV 555951222 SNOMED CT 03/23/2015 BEDSIDE GLUCOSE 82914283 SNOMED CT 03/23/2015 TROPONIN-I ADV 934182971 SNOMED CT 03/24/2015 BEDSIDE GLUCOSE 88723698 SNOMED CT 03/24/2015 ^CBC W/AUTO DIFF 4325487 SNOMED CT 03/24/2015 BEDSIDE GLUCOSE 24419107 SNOMED CT 03/24/2015 BEDSIDE GLUCOSE 57909136 SNOMED CT 03/24/2015 BEDSIDE GLUCOSE 38183372 SNOMED CT 03/24/2015 BASIC METABOLIC PANEL 970585109 SNOMED CT 03/25/2015 CBC W/ AUTO DIFF (RFLX MAN DIFF IF IND) 9267116 SNOMED CT 03/25/2015 BEDSIDE GLUCOSE 75073574 SNOMED CT 03/25/2015 ^CBC W/AUTO DIFF 8381106 SNOMED CT 03/25/2015 BEDSIDE GLUCOSE 54477740 SNOMED CT 03/25/2015 BEDSIDE GLUCOSE 46736846 SNOMED CT 03/25/2015 BEDSIDE GLUCOSE 71989355 SNOMED CT 03/25/2015 CBC W/ AUTO DIFF (RFLX MAN DIFF IF IND) 7045899 SNOMED CT 03/26/2015 BASIC METABOLIC PANEL 828709805 SNOMED CT 03/26/2015 BEDSIDE GLUCOSE 82509028 SNOMED CT 03/26/2015 ^CBC W/ MANUAL DIFF 31606210 SNOMED CT 03/26/2015 BEDSIDE GLUCOSE 33370725 SNOMED CT 03/26/2015 BASIC METABOLIC PANEL 624717837 SNOMED CT 03/27/2015 CBC W/ AUTO DIFF (RFLX MAN DIFF IF IND) 4752148 SNOMED CT 03/27/2015 BEDSIDE GLUCOSE 29465010 SNOMED CT 03/26/2015 BEDSIDE GLUCOSE 30038783 SNOMED CT 03/26/2015 BEDSIDE GLUCOSE 54659531 SNOMED CT 03/27/2015 ^CBC W/AUTO DIFF 6395207 SNOMED CT 03/27/2015 US ECHO 2D COMP WITH DOPP AND COLOR 91606317 SNOMED CT 09/2015 CX CHEST [address] 03/23/2015 US VENOUS UPP OR LOW EXT BILATERAL 595755680 SNOMED CT 09/2015 CX CHEST [address] 03/21/2015 CT EXT LOWER W/WO CONTRAST 615346788 SNOMED CT 03/22/2015 CX CHEST [address] 03/24/2015 OT EVALUATION 434550129 SNOMED CT 03/23/2015 PT EVALUATION 534615556 SNOMED CT 03/23/2015 OT THERAPEUTIC EXERCISES [address] 2015 PT THERAPEUTIC ACT. ONE ON ONE EA [address] 03/24/2015 PT THERAPEUTIC EXERCISES [address] 2015 PT THERAPEUTIC ACT. ONE ON ONE EA [address] 03/25/2015 OT THERAPEUTIC EXERCISES [address] 2015 OT APPL OF MULTI-LAYER COMPRESSION SYSTE 072031585 SNOMED CT 03/26/2015 OT APPL OF MULTI-LAYER COMPRESSION SYSTE 935097949 SNOMED CT 03/25/2015 PT THERAPEUTIC EXERCISES [address] 2015 BAN AERO ECLIPSE TREATMENT 31450326 SNOMED CT 03/21/2015 BAN AERO ECLIPSE TREATMENT 26920640 SNOMED CT 03/21/2015 BAN AERO ECLIPSE TREATMENT 93888828 SNOMED CT 03/22/2015 BAN AERO ECLIPSE TREATMENT 08665372 SNOMED CT 03/22/2015 OXYGEN/HOUR 144841295 SNOMED CT 03/22/2015 OXYGEN/HOUR 850135160 SNOMED CT 03/22/2015 BAN AERO ECLIPSE TREATMENT 19964067 SNOMED CT 03/22/2015 BAN AERO ECLIPSE TREATMENT 18314087 SNOMED CT 03/22/2015 BAN AERO ECLIPSE TREATMENT 35098277 SNOMED CT 03/23/2015 BAN AERO ECLIPSE TREATMENT 93511532 SNOMED CT 03/23/2015 BAN AERO ECLIPSE TREATMENT 78414315 SNOMED CT 03/23/2015 OXYGEN/HOUR 372853975 SNOMED CT 03/23/2015 OXYGEN/HOUR 051234892 SNOMED CT 03/23/2015 BAN AERO ECLIPSE TREATMENT 60949680 SNOMED CT 03/24/2015 BAN AERO ECLIPSE TREATMENT 01273718 SNOMED CT 03/24/2015 OXYGEN/HOUR 399021395 SNOMED CT 03/24/2015 OXYGEN/HOUR 841462456 SNOMED CT 03/24/2015 BAN AERO ECLIPSE TREATMENT 44149341 SNOMED CT 03/25/2015 BAN AERO ECLIPSE TREATMENT 78405932 SNOMED CT 03/25/2015 BAN AERO ECLIPSE TREATMENT 57959241 SNOMED CT 03/25/2015 BAN AERO ECLIPSE TREATMENT 53849395 SNOMED CT 03/25/2015 OXYGEN/HOUR 614301348 SNOMED CT 03/25/2015 OXYGEN/HOUR 301827699 SNOMED CT 03/25/2015 BAN AERO ECLIPSE TREATMENT 17585299 SNOMED CT 03/26/2015 BAN AERO ECLIPSE TREATMENT 49346522 SNOMED CT 03/26/2015 BAN AERO ECLIPSE TREATMENT 34342932 SNOMED CT 03/26/2015 BAN AERO ECLIPSE TREATMENT 48343064 SNOMED CT 03/26/2015 OXYGEN/HOUR 103256078 SNOMED CT 03/26/2015 OXYGEN/HOUR 300212012 SNOMED CT 03/26/2015 BAN AERO ECLIPSE TREATMENT 28348114 SNOMED CT 03/27/2015 OXYGEN/HOUR 588291703 SNOMED CT 03/27/2015 ^UA WITH MICRO 781313416 SNOMED CT 03/21/2015 ^CBC W/ MANUAL DIFF 92114280 SNOMED CT 03/22/2015 LOCM 300-349 MG/ML, PER ML 907194089 SNOMED CT 03/22/2015 History of Immunizations Unknown or Not Available. Problems Problem Code Start Date Resolved Date Status Septic [id number] Active Results BASIC METABOLIC PANEL - Collect Date/Time: 03/27/2015 06:45 Test Name Code Test Result Test Units Test Ref Range GLUCOSE 2345-7 164 MG/DL L=70 H=100 SODIUM 2951-2 144 MEQ/L L=135 H=148 POTASSIUM 2823-3 4.3 MEQ/L L=3.5 H=5.3 CHLORIDE 2075-0 97 MEQ/L L=96 H=110 CO2 2028-9 37 MEQ/L L=22 H=29 BUN 3094-0 25 MG/DL L=8 H=22 CREATININE 2160-0 0.8 MG/DL L=0.6 H=1.6 CALCIUM 99273-4 9.9 MG/DL L=8.2 H=10.6 AGE 54 yrs GFR NonAA 101 GFR AA 122 eGFR >60 N/A eGFR AA* >60 N/A BASIC METABOLIC PANEL - Collect Date/Time: 03/26/2015 06:30 Test Name Code Test Result Test Units Test Ref Range GLUCOSE 2345-7 206 MG/DL L=70 H=100 SODIUM 2951-2 145 MEQ/L L=135 H=148 POTASSIUM 2823-3 4.5 MEQ/L L=3.5 H=5.3 CHLORIDE 2075-0 101 MEQ/L L=96 H=110 CO2 2028-9 31 MEQ/L L=22 H=29 BUN 3094-0 26 MG/DL L=8 H=22 CREATININE 2160-0 0.8 MG/DL L=0.6 H=1.6 CALCIUM 78791-8 9.5 MG/DL L=8.2 H=10.6 AGE 54 yrs GFR NonAA 101 GFR AA 122 eGFR >60 N/A eGFR AA* >60 N/A BASIC METABOLIC PANEL - Collect Date/Time: 03/25/2015 07:35 Test Name Code Test Result Test Units Test Ref Range GLUCOSE 2345-7 182 MG/DL L=70 H=100 SODIUM 2951-2 142 MEQ/L L=135 H=148 POTASSIUM 2823-3 3.7 MEQ/L L=3.5 H=5.3 CHLORIDE 2075-0 100 MEQ/L L=96 H=110 CO2 2028-9 32 MEQ/L L=22 H=29 BUN 3094-0 17 MG/DL L=8 H=22 CREATININE 2160-0 0.8 MG/DL L=0.6 H=1.6 CALCIUM 45287-1 9.3 MG/DL L=8.2 H=10.6 AGE 54 yrs GFR NonAA 101 GFR AA 122 eGFR >60 N/A eGFR AA* >60 N/A BEDSIDE GLUCOSE - Collect Date/Time: 03/27/2015 06:01 Test Name Code Test Result Test Units Test Ref Range GLUCOSE POCT 144 MG/DL L=70 H=100 BEDSIDE GLUCOSE - Collect Date/Time: 03/26/2015 20:33 Test Name Code Test Result Test Units Test Ref Range GLUCOSE POCT 201 MG/DL L=70 H=100 BEDSIDE GLUCOSE - Collect Date/Time: 03/26/2015 16:45 Test Name Code Test Result Test Units Test Ref Range GLUCOSE POCT 140 MG/DL L=70 H=100 BEDSIDE GLUCOSE - Collect Date/Time: 03/26/2015 12:14 Test Name Code Test Result Test Units Test Ref Range GLUCOSE POCT 190 MG/DL L=70 H=100 BEDSIDE GLUCOSE - Collect Date/Time: 03/26/2015 05:46 Test Name Code Test Result Test Units Test Ref Range GLUCOSE POCT 184 MG/DL L=70 H=100 BEDSIDE GLUCOSE - Collect Date/Time: 03/25/2015 20:33 Test Name Code Test Result Test Units Test Ref Range GLUCOSE POCT 214 MG/DL L=70 H=100 BEDSIDE GLUCOSE - Collect Date/Time: 03/25/2015 16:57 Test Name Code Test Result Test Units Test Ref Range GLUCOSE POCT 158 MG/DL L=70 H=100 BEDSIDE GLUCOSE - Collect Date/Time: 03/25/2015 11:27 Test Name Code Test Result Test Units Test Ref Range GLUCOSE POCT 198 MG/DL L=70 H=100 BEDSIDE GLUCOSE - Collect Date/Time: 03/25/2015 05:10 Test Name Code Test Result Test Units Test Ref Range GLUCOSE POCT 143 MG/DL L=70 H=100 BEDSIDE GLUCOSE - Collect Date/Time: 03/24/2015 20:36 Test Name Code Test Result Test Units Test Ref Range GLUCOSE POCT 243 MG/DL L=70 H=100 BEDSIDE GLUCOSE - Collect Date/Time: 03/24/2015 17:36 Test Name Code Test Result Test Units Test Ref Range GLUCOSE POCT 231 MG/DL L=70 H=100 BEDSIDE GLUCOSE - Collect Date/Time: 03/24/2015 12:00 Test Name Code Test Result Test Units Test Ref Range GLUCOSE POCT 185 MG/DL L=70 H=100 BEDSIDE GLUCOSE - Collect Date/Time: 03/24/2015 05:47 Test Name Code Test Result Test Units Test Ref Range GLUCOSE POCT 197 MG/DL L=70 H=100 BEDSIDE GLUCOSE - Collect Date/Time: 03/23/2015 20:36 Test Name Code Test Result Test Units Test Ref Range GLUCOSE POCT 225 MG/DL L=70 H=100 BEDSIDE GLUCOSE - Collect Date/Time: 03/23/2015 19:37 Test Name Code Test Result Test Units Test Ref Range GLUCOSE POCT 232 MG/DL L=70 H=100 BEDSIDE GLUCOSE - Collect Date/Time: 03/23/2015 17:04 Test Name Code Test Result Test Units Test Ref Range GLUCOSE POCT 263 MG/DL L=70 H=100 BEDSIDE GLUCOSE - Collect Date/Time: 03/23/2015 12:14 Test Name Code Test Result Test Units Test Ref Range GLUCOSE POCT 196 MG/DL L=70 H=100 BEDSIDE GLUCOSE - Collect Date/Time: 03/23/2015 05:27 Test Name Code Test Result Test Units Test Ref Range GLUCOSE POCT 231 MG/DL L=70 H=100 BEDSIDE GLUCOSE - Collect Date/Time: 03/22/2015 19:09 Test Name Code Test Result Test Units Test Ref Range GLUCOSE POCT 223 MG/DL L=70 H=100 BEDSIDE GLUCOSE - Collect Date/Time: 03/22/2015 17:28 Test Name Code Test Result Test Units Test Ref Range GLUCOSE POCT 184 MG/DL L=70 H=100 BEDSIDE GLUCOSE - Collect Date/Time: 03/22/2015 12:13 Test Name Code Test Result Test Units Test Ref Range GLUCOSE POCT 207 MG/DL L=70 H=100 BEDSIDE GLUCOSE - Collect Date/Time: 03/22/2015 05:29 Test Name Code Test Result Test Units Test Ref Range GLUCOSE POCT 244 MG/DL L=70 H=100 BEDSIDE GLUCOSE - Collect Date/Time: 03/21/2015 21:04 Test Name Code Test Result Test Units Test Ref Range GLUCOSE POCT 220 MG/DL L=70 H=100 BEDSIDE GLUCOSE - Collect Date/Time: 03/21/2015 17:06 Test Name Code Test Result Test Units Test Ref Range GLUCOSE POCT 195 MG/DL L=70 H=100 COMPREHENSIVE METABOLIC PANEL - Collect Date/Time: 03/24/2015 07:00 Test Name Code Test Result Test Units Test Ref Range GLUCOSE 2345-7 195 MG/DL L=70 H=100 SODIUM 2951-2 142 MEQ/L L=135 H=148 POTASSIUM 2823-3 3.8 MEQ/L L=3.5 H=5.3 CHLORIDE 2075-0 99 MEQ/L L=96 H=110 CO2 2028-9 31 MEQ/L L=22 H=29 BUN 3094-0 16 MG/DL L=8 H=22 CREATININE 2160-0 0.9 MG/DL L=0.6 H=1.6 SGOT/AST 1920-8 16 IU/L L=10 H=40 SGPT/ALT 1742-6 32 IU/L L=8 H=54 ALK PHOS 6768-6 31 IU/L L=35 H=115 TOTAL PROTEIN 2885-2 6.6 G/DL L=5.5 H=8.5 ALBUMIN 1751-7 3.7 G/DL L=3.1 H=5.4 TOTAL BILI 1975-2 0.5 MG/DL L=0.0 H=1.5 CALCIUM 51026-6 9.5 MG/DL L=8.2 H=10.6 AGE 54 yrs GFR NonAA 88 GFR AA 107 eGFR >60 N/A eGFR AA* >60 N/A COMPREHENSIVE METABOLIC PANEL - Collect Date/Time: 03/23/2015 05:25 Test Name Code Test Result Test Units Test Ref Range GLUCOSE 2345-7 273 MG/DL L=70 H=100 SODIUM 2951-2 138 MEQ/L L=135 H=148 POTASSIUM 2823-3 4.6 MEQ/L L=3.5 H=5.3 CHLORIDE 2075-0 100 MEQ/L L=96 H=110 CO2 2028-9 32 MEQ/L L=22 H=29 BUN 3094-0 13 MG/DL L=8 H=22 CREATININE 2160-0 0.8 MG/DL L=0.6 H=1.6 SGOT/AST 1920-8 20 IU/L L=10 H=40 SGPT/ALT 1742-6 34 IU/L L=8 H=54 ALK PHOS 6768-6 32 IU/L L=35 H=115 TOTAL PROTEIN 2885-2 6.3 G/DL L=5.5 H=8.5 ALBUMIN 1751-7 3.6 G/DL L=3.1 H=5.4 TOTAL BILI 1975-2 0.5 MG/DL L=0.0 H=1.5 CALCIUM 68954-0 9.3 MG/DL L=8.2 H=10.6 AGE 54 yrs GFR NonAA 101 GFR AA 122 eGFR >60 N/A eGFR AA* >60 N/A COMPREHENSIVE METABOLIC PANEL - Collect Date/Time: 03/21/2015 17:45 Test Name Code Test Result Test Units Test Ref Range GLUCOSE 2345-7 200 MG/DL L=70 H=100 SODIUM 2951-2 141 MEQ/L L=135 H=148 POTASSIUM 2823-3 4.5 MEQ/L L=3.5 H=5.3 CHLORIDE 2075-0 103 MEQ/L L=96 H=110 CO2 2028-9 27 MEQ/L L=22 H=29 BUN 3094-0 18 MG/DL L=8 H=22 CREATININE 2160-0 0.9 MG/DL L=0.6 H=1.6 SGOT/AST 1920-8 15 IU/L L=10 H=40 SGPT/ALT 1742-6 26 IU/L L=8 H=54 ALK PHOS 6768-6 37 IU/L L=35 H=115 TOTAL PROTEIN 2885-2 6.2 G/DL L=5.5 H=8.5 ALBUMIN 1751-7 3.9 G/DL L=3.1 H=5.4 TOTAL BILI 1975-2 0.4 MG/DL L=0.0 H=1.5 CALCIUM 15879-9 8.2 MG/DL L=8.2 H=10.6 AGE 54 yrs GFR NonAA 88 GFR AA 107 eGFR >60 N/A eGFR AA* >60 N/A IRON TOTAL - Collect Date/Time: 03/22/2015 05:15 Test Name Code Test Result Test Units Test Ref Range IRON TOTAL 2498-4 21 MCG/DL L=50 H=212 RENAL FUNCTION PANEL - Collect Date/Time: 03/22/2015 05:15 Test Name Code Test Result Test Units Test Ref Range GLUCOSE 2345-7 275 MG/DL L=70 H=100 SODIUM 2951-2 138 MEQ/L L=135 H=148 POTASSIUM 2823-3 4.4 MEQ/L L=3.5 H=5.3 CHLORIDE 2075-0 101 MEQ/L L=96 H=110 CO2 2028-9 28 MEQ/L L=22 H=29 BUN 3094-0 18 MG/DL L=8 H=22 CREATININE 2160-0 0.8 MG/DL L=0.6 H=1.6 ALBUMIN 1751-7 3.6 G/DL L=3.1 H=5.4 CALCIUM 27017-1 8.9 MG/DL L=8.2 H=10.6 PHOSPHORUS 2777-1 3.1 MG/DL L=2.5 H=4.5 AGE 54 yrs GFR NonAA 101 GFR AA 122 eGFR >60 N/A eGFR AA* >60 N/A PHENYTOIN - Collect Date/Time: 03/21/2015 16:10 Test Name Code Test Result Test Units Test Ref Range PHENYTOIN 3968-5 2.1 UG/ML L=10.0 H=20.0 VANCOMYCIN TROUGH - Collect Date/Time: 03/25/2015 01:25 Test Name Code Test Result Test Units Test Ref Range VANC TROUGH 4092-3 15.9 UG/ML L=10.0 H=20.0 VANCOMYCIN TROUGH - Collect Date/Time: 03/23/2015 01:30 Test Name Code Test Result Test Units Test Ref Range VANC TROUGH 4092-3 21.1 UG/ML L=10.0 H=20.0 CBC W/ AUTO DIFF (RFLX MAN DIFF IF IND) - Collect Date/Time: 03/27/2015 06:45 Test Name Code Test Result Test Units Test Ref Range WBC 81693-9 5.9 TH/CMM L=4.5 H=10.8 RBC 789-8 4.13 ML/CMM L=4.70 H=6.10 HGB 718-7 13.1 G/DL L=14.0 H=18.0 HCT 4544-3 42.1 % L=42.0 H=52.0 MCV 102 FL L=81 H=99 MCH 31.7 PG L=27.0 H=33.0 MCHC 31.1 G/DL L=31.0 H=36.0 RDW SD 55 FL L=36 H=50 RDW CV 14.8 % L=0.0 H=14.8 MPV 11.8 FL L=9.3 H=12.5 PLT 777-3 130 TH/CMM L=130 H=440 NRBC# 0.03 TH/CMM L=0.00 H=0.00 NRBC% 0.6 /100WBC L=0.0 H=2.0 %NEUT 79.0 % %LYMP 13.9 % %MONO 6.6 % %EOS 0.2 % %BASO 0.3 % #NEUT 4.66 TH/CMM L=2.10 H=8.20 #LYMP 0.82 TH/CMM L=0.90 H=5.20 #MONO 0.39 TH/CMM L=0.16 H=1.00 #EOS 0.01 TH/CMM L=0.00 H=0.80 #BASO 0.02 TH/CMM L=0.00 H=0.20 MANUAL DIFF NOT IND N/A CBC W/ AUTO DIFF (RFLX MAN DIFF IF IND) - Collect Date/Time: 03/26/2015 06:30 Test Name Code Test Result Test Units Test Ref Range WBC 06521-7 6.0 TH/CMM L=4.5 H=10.8 RBC 789-8 4.07 ML/CMM L=4.70 H=6.10 HGB 718-7 12.8 G/DL L=14.0 H=18.0 HCT 4544-3 41.8 % L=42.0 H=52.0 MCV 103 FL L=81 H=99 MCH 31.4 PG L=27.0 H=33.0 MCHC 30.6 G/DL L=31.0 H=36.0 RDW SD 56 FL L=36 H=50 RDW CV 14.8 % L=0.0 H=14.8 MPV 12.6 FL L=9.3 H=12.5 PLT 777-3 112 TH/CMM L=130 H=440 NRBC# 0.08 TH/CMM L=0.00 H=0.00 NRBC% 1.4 /100WBC L=0.0 H=2.0 %NEUT 79.7 % %LYMP 12.5 % %MONO 7.3 % %EOS 0.2 % %BASO 0.3 % #NEUT 4.80 TH/CMM L=2.10 H=8.20 #LYMP 0.75 TH/CMM L=0.90 H=5.20 #MONO 0.44 TH/CMM L=0.16 H=1.00 #EOS 0.01 TH/CMM L=0.00 H=0.80 #BASO 0.02 TH/CMM L=0.00 H=0.20 SEGS 79 % BANDS 2 % LYMPHS 14 % MONOS 5 % MANUAL DIFF SEE BELOW N/A CBC W/ AUTO DIFF (RFLX MAN DIFF IF IND) - Collect Date/Time: 03/25/2015 07:35 Test Name Code Test Result Test Units Test Ref Range WBC 43469-8 4.4 TH/CMM L=4.5 H=10.8 RBC 789-8 3.93 ML/CMM L=4.70 H=6.10 HGB 718-7 12.6 G/DL L=14.0 H=18.0 HCT 4544-3 39.6 % L=42.0 H=52.0 MCV 101 FL L=81 H=99 MCH 32.1 PG L=27.0 H=33.0 MCHC 31.8 G/DL L=31.0 H=36.0 RDW SD 54 FL L=36 H=50 RDW CV 14.5 % L=0.0 H=14.8 MPV 12.0 FL L=9.3 H=12.5 PLT 777-3 107 TH/CMM L=130 H=440 NRBC# 0.00 TH/CMM L=0.00 H=0.00 NRBC% 0.0 /100WBC L=0.0 H=2.0 %NEUT 70.7 % %LYMP 20.9 % %MONO 8.0 % %EOS 0.2 % %BASO 0.2 % #NEUT 3.07 TH/CMM L=2.10 H=8.20 #LYMP 0.91 TH/CMM L=0.90 H=5.20 #MONO 0.35 TH/CMM L=0.16 H=1.00 #EOS 0.01 TH/CMM L=0.00 H=0.80 #BASO 0.01 TH/CMM L=0.00 H=0.20 MANUAL DIFF NOT IND N/A CBC W/ AUTO DIFF (RFLX MAN DIFF IF IND) - Collect Date/Time: 03/24/2015 07:00 Test Name Code Test Result Test Units Test Ref Range WBC 10524-0 4.5 TH/CMM L=4.5 H=10.8 RBC 789-8 3.93 ML/CMM L=4.70 H=6.10 HGB 718-7 12.5 G/DL L=14.0 H=18.0 HCT 4544-3 39.5 % L=42.0 H=52.0 MCV 101 FL L=81 H=99 MCH 31.8 PG L=27.0 H=33.0 MCHC 31.6 G/DL L=31.0 H=36.0 RDW SD 54 FL L=36 H=50 RDW CV 14.6 % L=0.0 H=14.8 MPV 11.3 FL L=9.3 H=12.5 PLT 777-3 90 TH/CMM L=130 H=440 NRBC# 0.00 TH/CMM L=0.00 H=0.00 NRBC% 0.0 /100WBC L=0.0 H=2.0 %NEUT 68.4 % %LYMP 23.9 % %MONO 7.3 % %EOS 0.2 % %BASO 0.2 % #NEUT 3.08 TH/CMM L=2.10 H=8.20 #LYMP 1.08 TH/CMM L=0.90 H=5.20 #MONO 0.33 TH/CMM L=0.16 H=1.00 #EOS 0.01 TH/CMM L=0.00 H=0.80 #BASO 0.01 TH/CMM L=0.00 H=0.20 MANUAL DIFF NOT IND N/A CBC W/ AUTO DIFF (RFLX MAN DIFF IF IND) - Collect Date/Time: 03/23/2015 05:25 Test Name Code Test Result Test Units Test Ref Range WBC 71097-7 6.1 TH/CMM L=4.5 H=10.8 RBC 789-8 3.72 ML/CMM L=4.70 H=6.10 HGB 718-7 11.9 G/DL L=14.0 H=18.0 HCT 4544-3 37.6 % L=42.0 H=52.0 MCV 101 FL L=81 H=99 MCH 32.0 PG L=27.0 H=33.0 MCHC 31.6 G/DL L=31.0 H=36.0 RDW SD 57 FL L=36 H=50 RDW CV 15.4 % L=0.0 H=14.8 MPV 11.1 FL L=9.3 H=12.5 PLT 777-3 79 TH/CMM L=130 H=440 NRBC# 0.00 TH/CMM L=0.00 H=0.00 NRBC% 0.0 /100WBC L=0.0 H=2.0 %NEUT 80.3 % %LYMP 11.9 % %MONO 7.6 % %EOS 0.0 % %BASO 0.2 % #NEUT 4.86 TH/CMM L=2.10 H=8.20 #LYMP 0.72 TH/CMM L=0.90 H=5.20 #MONO 0.46 TH/CMM L=0.16 H=1.00 #EOS 0.00 TH/CMM L=0.00 H=0.80 #BASO 0.01 TH/CMM L=0.00 H=0.20 MANUAL DIFF NOT IND N/A CBC W/ AUTO DIFF (RFLX MAN DIFF IF IND) - Collect Date/Time: 03/22/2015 05:15 Test Name Code Test Result Test Units Test Ref Range WBC 87832-2 7.6 TH/CMM L=4.5 H=10.8 RBC 789-8 4.02 ML/CMM L=4.70 H=6.10 HGB 718-7 12.8 G/DL L=14.0 H=18.0 HCT 4544-3 40.5 % L=42.0 H=52.0 MCV 101 FL L=81 H=99 MCH 31.8 PG L=27.0 H=33.0 MCHC 31.6 G/DL L=31.0 H=36.0 RDW SD 57 FL L=36 H=50 RDW CV 15.3 % L=0.0 H=14.8 MPV 11.5 FL L=9.3 H=12.5 PLT 777-3 77 TH/CMM L=130 H=440 NRBC# 0.00 TH/CMM L=0.00 H=0.00 NRBC% 0.0 /100WBC L=0.0 H=2.0 %NEUT 87.0 % %LYMP 6.7 % %MONO 6.3 % %EOS 0.0 % %BASO 0.0 % #NEUT 6.63 TH/CMM L=2.10 H=8.20 #LYMP 0.51 TH/CMM L=0.90 H=5.20 #MONO 0.48 TH/CMM L=0.16 H=1.00 #EOS 0.00 TH/CMM L=0.00 H=0.80 #BASO 0.00 TH/CMM L=0.00 H=0.20 SEGS 81 % BANDS 8 % LYMPHS 6 % MONOS 5 % MANUAL DIFF SEE BELOW N/A RBC MORPH 1+ ANISO N/A OCCULT BLOOD iFOBT - Collect Date/Time: 03/23/2015 15:20 Test Name Code Test Result Test Units Test Ref Range OCC BLD STOOL 2335-8 POSITIVE N/A NORMAL: NEGATIVE UA ROUTINE C&S IF IND - Collect Date/Time: 03/21/2015 15:40 Test Name Code Test Result Test Units Test Ref Range COLOR YELLOW N/A NL: YELLOW APPEARANCE CLEAR N/A NL: CLEAR SPEC GRAV 1.020 N/A NL: 1.002 - 1.022 pH 6.0 N/A NL: 5 - 9 PROTEIN 30mg/dl N/A NL: NEGATIVE mg/dl GLUCOSE NEGATIVE N/A NL: NEGATIVE mg/dl KETONE NEGATIVE N/A NL: NEGATIVE mg/dl BILIRUBIN NEGATIVE N/A NL: NEGATIVE BLOOD MODERATE N/A NL: NEGATIVE NITRITE NEGATIVE N/A NL: NEGATIVE LEUK SCREEN TRACE N/A NL: NEGATIVE MICRO INDICATED? SEE BELOW N/A WBC/HPF RARE N/A NL: NEGATIVE RBC/HPF 5-10 N/A NL: NEGATIVE CASTS/LPF NEGATIVE N/A NL: NEGATIVE CRYSTALS NEGATIVE N/A NL: NEGATIVE MUCOUS THRDS NEGATIVE N/A NL: NEGATIVE BACTERIA FEW N/A NL: NEGATIVE EPITH CELLS NEGATIVE N/A NL: NEGATIVE TRICHOMONAS NEGATIVE N/A NL: NEGATIVE YEAST NEGATIVE N/A NL: NEGATIVE CULT SET UP? NO N/A HGB A1C (SEND-OUT) - Collect Date/Time: 03/22/2015 05:15 Test Name Code Test Result Test Units Test Ref Range Hemoglobin A1c 4548-4 7.4 % 4.8-5.6 Estim. Avg Glu (eAG) 82407-6 166 mg/dL TROPONIN-I ADV - Collect Date/Time: 03/24/2015 03:55 Test Name Code Test Result Test Units [place] [address]-8 <0.04 ng/mL L=0.04 H= 0.40 TROPONIN-I ADV - Collect Date/Time: 03/23/2015 20:00 Test Name Code Test Result Test Units [place] [address]-6 <0.04 ng/mL L=0.04 H= 0.40 TROPONIN-I ADV - Collect Date/Time: 03/21/2015 16:10 Test Name Code Test Result Test Units [place] [address]-9 0.04 ng/mL L=0.04 H=0.40 VITAMIN B12 & FOLATE - Collect Date/Time: 03/22/2015 05:15 Test Name Code Test Result Test Units Test Ref Range VITAMIN B12 2132-9 404 PG/ML L=213 H=816 FOLATE 2284-8 12.00 ng/mL ABG - Collect Date/Time: 03/21/2015 13:25 Test Name Code Test Result Test Units Test Ref Range PH 7.21 L=7.35 H=7.45 PCO2 64 mmHG L=35 H=45 PO2 73 mmHG L=80 H=100 HCO3 25 mmol/L L=22 H=28 TCO2 24 mmol/L L=18 H=31 O2SAT 93 % L=80 H=100 SITE LT RAD N/A FIO2 3L NC N/A BE -3.6 N/A L=-2.5 H=2.5 VENOUS BLOOD GAS - Collect Date/Time: 03/22/2015 05:25 Test Name Code Test Result Test Units Test Ref Range vPH 7.27 L=7.32 H=7.43 vPCO2 66 mmHG L=40 H=60 vPO2 54 mmHG L=30 H=55 vBE 1.2 mmol/L L=-2.0 H=2.0 vHCO3 29 mmol/L L=22 H=27 vTCO2 27 mmol/L L=24 H=28 vO2SAT 86 % L=40 H=85 SITE C LINE N/A FIO2 40% N/A VENOUS BLOOD GAS - Collect Date/Time: 03/21/2015 17:45 Test Name Code Test Result Test Units Test Ref Range vPH 7.26 L=7.32 H=7.43 vPCO2 63 mmHG L=40 H=60 vPO2 41 mmHG L=30 H=55 vHCO3 27 mmol/L L=22 H=27 vTCO2 25 mmol/L L=24 H=28 vO2SAT 75 % L=40 H=85 SITE VENOUS N/A vBE -0.7 N/A L=-2.0 H=2.0 VENOUS BLOOD GAS - Collect Date/Time: 03/21/2015 14:50 Test Name Code Test Result Test Units Test Ref Range vPH 7.19 L=7.32 H=7.43 vPCO2 73 mmHG L=40 H=60 vPO2 52 mmHG L=30 H=55 vHCO3 27 mmol/L L=22 H=27 vTCO2 25 mmol/L L=24 H=28 vO2SAT 81 % L=40 H=85 SITE VENOUS N/A FIO2 U N/A vBE -3.2 N/A L=-2.0 H=2.0 LACTIC ACID - Collect Date/Time: 03/21/2015 16:10 Test Name Code Test Result Test Units Test Ref Range LACTIC ACID 2524-7 2.1 mmol/L L=0.5 H=1.6 LACTIC ACID - Collect Date/Time: 03/21/2015 12:30 Test Name Code Test Result Test Units Test Ref Range LACTIC ACID 2524-7 3.2 mmol/L L=0.5 H=1.6 MAGNESIUM - Collect Date/Time: 03/24/2015 07:00 Test Name Code Test Result Test Units Test Ref Range MAGNESIUM 90427-4 2.1 MG/DL L=1.7 H=2.8 MAGNESIUM - Collect Date/Time: 03/23/2015 05:25 Test Name Code Test Result Test Units Test Ref Range MAGNESIUM 36553-4 2.0 MG/DL L=1.7 H=2.8 MAGNESIUM - Collect Date/Time: 03/22/2015 05:15 Test Name Code Test Result Test Units Test Ref Range MAGNESIUM 67466-8 1.9 MG/DL L=1.7 H=2.8 PHOSPHORUS - Collect Date/Time: 03/24/2015 07:00 Test Name Code Test Result Test Units Test Ref Range PHOSPHORUS 2777-1 2.0 MG/DL L=2.5 H=4.5 PHOSPHORUS - Collect Date/Time: 03/23/2015 05:25 Test Name Code Test Result Test Units Test Ref Range PHOSPHORUS 2777-1 2.6 MG/DL L=2.5 H=4.5 PREALBUMIN - Collect Date/Time: 03/22/2015 05:15 Test Name Code Test Result Test Units Test Ref Range PREALBUMIN 62880-4 19 MG/DL L=17 H=34 Active Medications Medication Code Dose Units Frequency Route Modification Start Date/Time Amiodarone HCl 200MG Oral Tablet 190314 400 MILLIGRAMS THREE TIMES A DAY BY MOUTH 03/27/2015 09:28 Prescription Detail 400 MILLIGRAMS BY MOUTH THREE TIMES A DAY Amiodarone HCl 200MG Oral Tablet 230296 400 MILLIGRAMS TWO TIMES A DAY BY MOUTH 03/27/2015 09:28 Prescription Detail 400 MILLIGRAMS BY MOUTH TWO TIMES A DAY Clindamycin Phosphate 150MG/1ML Injection Solution 419458 150 MILLIGRAMS EVERY 8 HOURS IVPB 03/27/2015 09: 28 Prescription Detail 150 MILLIGRAMS IVPB EVERY 8 HOURS Diltiazem HCl 60MG Oral Tablet 221124 60 MILLIGRAMS THREE TIMES A DAY BY MOUTH 03/27/2015 09:28 Prescription Detail 60 MILLIGRAMS BY MOUTH THREE TIMES A DAY Ferrex 150 Forte [id number] Oral Capsule 940009 150 MILLIGRAMS DAILY BY MOUTH 03/27/2015 09:28 Prescription Detail 150 MILLIGRAMS BY MOUTH DAILY Furosemide 40MG Oral Tablet 588831 40 MILLIGRAMS DAILY BY MOUTH 03/27/2015 09:28 Prescription Detail 40 MILLIGRAMS BY MOUTH DAILY Gabapentin 600MG Oral Tablet 359003 600 MILLIGRAMS AT BEDTIME BY MOUTH 03/27/2015 09:28 Prescription Detail 600 MILLIGRAMS BY MOUTH AT BEDTIME Ipratropium [place]-Albuterol Sulfate 0.5MG/3ML-3MG/3ML Inhalation Solution [id number] 1 EACH QID (RT ONLY) INHALATION 03/27/2015 09:28 Prescription Detail 1 EACH INHALATION QID (RT ONLY) Levemir 100U/1ML Subcutaneous Solution 503963 10 UNITS DAILY SUBCUTANEOUS 03/27/2015 09:28 Prescription Detail 10 UNITS SUBCUTANEOUS DAILY Novaplus cefTRIAXone 2GM Injection Powder for Solution 4840580 2 GRAM EVERY 24 HOURS IVPB 03/27/2015 09:28 Prescription Detail 2 GRAM IVPB EVERY 24 HOURS NovoLOG 100U/1ML Subcutaneous Solution 669355 Per Protocol Unit(s) As Needed SUBCUTANEOUS 03/27/2015 09:28 Prescription Detail Per Protocol Unit(s) SUBCUTANEOUS As Needed Protonix 40MG Oral Tablet, Enteric Coated 261679 40 MILLIGRAMS TWO TIMES A DAY BY MOUTH 03/27/2015 09: 28 Prescription Detail 40 MILLIGRAMS BY MOUTH TWO TIMES A DAY Pulmicort Respules 0.5MG/2ML Inhalation Suspension 155396 1 DOSE Q 12 HRS (RT ONLY) INHALATION 03/27/2015 09:28 Prescription Detail 1 DOSE INHALATION Q 12 HRS (RT ONLY) Senna-Time S 50MG-8.6MG Oral Tablet 520695 2 EACH TWO TIMES A DAY BY MOUTH 03/27/2015 09:28 Prescription Detail 2 EACH BY MOUTH TWO TIMES A DAY Xarelto 10MG Oral Tablet 1221946 20 MILLIGRAMS DAILY BY MOUTH 03/27/2015 09:28 Prescription Detail 20 MILLIGRAMS BY MOUTH DAILY Acetaminophen 325MG Oral Tablet 825235 650 MILLIGRAMS NEEDED EVERY 6 HR ORAL 03/27/2015 09:27 Prescription Detail 650 MILLIGRAMS ORAL NEEDED EVERY 6 HR Ativan 0.5MG Oral Tablet 026553 0.5 MILLIGRAMS NEEDED EVERY 12 H ORAL 03/27/2015 09:27 Prescription Detail 0.5 MILLIGRAMS ORAL NEEDED EVERY 12 H buPROPion SR 150MG Oral Tablet, Extended Release, 12 HR 574727 150 MILLIGRAMS ORAL 03/27/2015 09:27 Prescription Detail 150 MILLIGRAMS ORAL CeleXA 20MG Oral Tablet 493182 20 MILLIGRAMS DAILY ORAL 03/27/2015 09:27 Prescription Detail 20 MILLIGRAMS ORAL DAILY fentaNYL 100MCG/1HR Transdermal Patch, Extended Release 020352 1 EACH EVERY 72 HOURS TRANSDERMAL 2015 09:27 Prescription Detail 1 EACH TRANSDERMAL EVERY 72 HOURS metFORMIN HCl 1000MG Oral Tablet 359448 3345 MILLIGRAMS TWO TIMES A DAY ORAL 03/27/2015 09:27 Prescription Detail 1000 MILLIGRAMS ORAL TWO TIMES A DAY Metoprolol Tartrate 50MG Oral Tablet 933797 50 MILLIGRAMS TWO TIMES A DAY ORAL 03/27/2015 09:27 Prescription Detail 50 MILLIGRAMS ORAL TWO TIMES A DAY Concrete 7.5MG-325MG Oral Tablet 191079 1 EACH NEEDED EVERY 6 HR ORAL 03/27/2015 09:27 Prescription Detail 1 EACH ORAL NEEDED EVERY 6 HR Phenytoin 100MG Oral Capsule, Extended Release 958049 100 MILLIGRAMS THREE TIMES A DAY ORAL 03/27/2015 09: 27 Prescription Detail 100 MILLIGRAMS ORAL THREE TIMES A DAY Zofran 4MG Oral Tablet 184292 4 MILLIGRAMS NEEDED EVERY 6 HR ORAL 03/27/2015 09:27 Prescription Detail 4 MILLIGRAMS ORAL NEEDED EVERY 6 HR Zyloprim 300MG Oral Tablet 156908 300 MILLIGRAMS DAILY ORAL 03/27/2015 09:27 Prescription Detail 300 MILLIGRAMS ORAL DAILY Medications Administered During Visit Medication Dose Units Frequency Route Date/ Time of Last Dose ZITHROMAX 500MG ADV IV [PREDEFINED] Q24H IVPB 03/22/2015 14:55 CEFEPIME [MAXIPIME] 2 GM IV PREMIX BAG Q8H IVPB 03/22/2015 09:15 DUONEB [IPRATROPIUM/ALBUTEROL] 0.5/3 MG 1 UD Q4HR (RT) INHALE 03/22/2015 09:35 BUDESONIDE [PULMICORT] RESP 0.5MG/2ML 1 DOSE Q 12 HRS (RT ONLY) INHALE 03/27/2015 09:35 ONDANSETRON [ZOFRAN] INJ 4 MG/2 ML VIAL 4 MG PRN SIVP 03/22/2015 01:38 STEWART-COLACE (NEW FORMULATION) TABLET 2 TAB BID PO 03/27/2015 10:15 ENOXAPARIN 30 MG/0.3 ML BLUE [LOVENOX] 30 MG Q12H SUB Q 03/22/2015 04:41 PHENYTOIN (DILANTIN)EXTENDED CAP:100MG 100 MG TID PO 03/22/2015 08:40 VANCOMYCIN [PREDEFINED] IV : > 2000 MG Q8H IVPB 03/21/2015 20:19 ACETAMINOPHEN [TYLENOL] TABS 325MG 650 MG PRN PO 03/22/2015 20:22 VANCOMYCIN [PREDEFINED] IV : > 2000 MG Q8H IVPB 03/22/2015 10:12 FERREX FORTE (NIFEREX FORTE) CAP:150 MG 150 MG DAILY PO 03/27/2015 10:15 DUONEB [IPRATROPIUM/ALBUTEROL] 0.5/3 MG 1 UD QID (RT ONLY ) INHALE 03/27/2015 09:35 PHENYTOIN (DILANTIN)EXTENDED CAP:100MG 200 MG TID PO 03/27/2015 10:15 ALLOPURINOL [ZYLOPRIM] TABLET : 300 MG 300 MG DAILY PO 03/27/2015 10:15 BUPROPION SR [WELLBUTRIN SR] TAB: 150 MG 150 MG BID PO 03/27/2015 10:15 METOPROLOL [LOPRESSOR] TABLET: 50MG 50 MG BID PO 03/27/2015 10:15 FENTANYL (DURAGESIC)PATCH:100mcg 100 MCG Q72H TOPICAL 03/25/2015 10:53 CITALOPRAM [CELEXA] TABLET : 20 MG 20 MG DAILY PO 03/27/2015 10:15 PANTOPRAZOLE [PROTONIX] TABLET : 40 MG 40 MG BID PO 03/27/2015 10:15 GABAPENTIN (NEURONTIN) TAB:600 MG 600 MG HS PO 03/26/2015 21:07 CEFEPIME [MAXIPIME] 2GM [PREDEFINED] Q8H IV 03/23/2015 08:42 VANCOMYCIN [PREDEFINED] IV : > 2000 MG Q8H IVPB 03/22/2015 17:50 INSULIN [NOVOLOG] 100UNITS/ML (SQ) 10ML 2 Unit(s) PRN SUBCUTANEOUS 03/27/2015 07:20 NORCO [HYDROCODONE-APAP] TAB 7.5/325MG 1 TAB PRN PO 03/26/2015 12:28 CLINDAMYCIN IV [PREDEFINED]: 900 MG ADV Q8H IVPB 03/27/2015 06:05 VANCOMYCIN [PREDEFINED] IV : > 2000 MG Q12H IVPB 03/25/2015 01:57 FUROSEMIDE [LASIX] TABLET: 40 MG 40 MG DAILY PO 03/27/2015 10:16 INSULIN [LEVEMIR] 100UNITS/ML 10ML VIAL 10 UNIT DAILY SQ 03/27/2015 10:16 METOPROLOL [LOPRESSOR] INJ: 5MG/5ML VIAL 5 MG X1 IVP 03/23/2015 19:49 METOPROLOL [LOPRESSOR] INJ: 5MG/5ML VIAL 5 MG X1 IVP 03/23/2015 20:13 MORPHINE INJ: 2MG/ML 1 ML SYRINGE 2 MG X1 IVP 03/23/2015 20:23 METOPROLOL [LOPRESSOR] INJ: 5MG/5ML VIAL 10 MG X1 IVP 03/23/2015 20:28 DILTIAZEM [CARDIZEM] TABLET : 60 MG 30 MG X1 PO 03/23/2015 20:54 METOPROLOL [LOPRESSOR] INJ: 5MG/5ML VIAL 10 MG X1 IVP 03/23/2015 22:26 DILTIAZEM [CARDIZEM] TABLET : 60 MG 30 MG X1 PO 03/24/2015 06:59 DILTIAZEM [CARDIZEM] 25 MG/5ML VIAL LOAD 15 MG X1 IVP 03/24/2015 09:09 METOPROLOL [LOPRESSOR] INJ: 5MG/5ML VIAL 10 MG X1 IVP 03/24/2015 12:01 METOPROLOL [LOPRESSOR] INJ: 5MG/5ML VIAL 10 MG X1 IVP 03/24/2015 12:45 DILTIAZEM [CARDIZEM] 25 MG/5ML VIAL LOAD 15 MG X1 IVP 03/24/2015 13:37 AMIODARONE [CORDARONE] TABLET : 200 MG 400 MG Q3H PO 03/24/2015 23:51 AMIODARONE [CORDARONE] TABLET : 200 MG 400 MG TID PO 03/27/2015 10:16 RIVAROXABAN [XARELTO] TABLET : 10MG 20 MG DAILY PO 03/27/2015 10:16 DILTIAZEM [CARDIZEM] TABLET : 60 MG 30 MG X1 PO 03/24/2015 16:47 CEFTRIAXONE [ROCEPHIN] 2GM IV PREMIX BAG Q24H IVPB 03/25/2015 14:31 ROCEPHIN IV [PREDEFINED] : 2GM IV Q 24 H Q24H IVPB 03/26/2015 14:53 DILTIAZEM [CARDIZEM] TABLET : 60 MG 30 MG X1 PO 03/26/2015 13:20 DILTIAZEM [CARDIZEM] TABLET : 60 MG 30 MG QID PO 03/26/2015 21:07 DILTIAZEM [CARDIZEM] TABLET : 60 MG 60 MG TID PO 03/27/2015 08:30 Encounters Encounter Diagnosis Diagnosis Code Start Date Sepsis due to streptococcus, group B A401 03/21/2015 Social History Smoking Status Code Start Date End Date Current every day smoker [id number] Patient Decision Aids Unknown or Not Available. Discharge Instructions You were admitted to [facility] on 03/21/2015 with a principal diagnosis of Sepsis due to streptococcus, group B. You had the following tests done: Hemoglobin A1c Estim. Avg Glu (eAG) You were discharged from [facility] on 03/27/2015. Should you have any questions prior to discharge, please contact a member of your healthcare team. If you have left the hospital and have any questions, please contact your primary care physician. CHIEF COMPLAINT: Vomiting, fever and low oxygenation. Chief Complaint and Reason For Visit Chief Complaint Date of Onset PNEUMONIA SEPSIS Function Status Unknown or Not Available. Plan of Care Unknown or Not Available. Referral/Transition of Care Unknown or Not Available.
--- OUTSIDE RECORDS SUMMARY | 2016-08-07 13:04 | XMS REPORT ---
Author Author [employer] Medical Staff Organization [facility] [employer] [facility] Address [address], [place] [id number] Phone [phone] Summary purpose TRANSITION OF CARE AUTO GENERATION [...] diagnostic tests and/or laboratory data RESULTS Hematology [id number]:00:00 Result Normal Range Units WBC 9.7 4.8-10.8 103/uL RBC L 4.0 4.7-6.1 106/uL HGB L 12.9 13.0-18.0 g/dl HCT L 38.1 41.9-52.0 % MCV H 94.8 80-94 FL MCH H 32.1 27-31 pg MCHC 33.9 33-37 g/dl RDW 13.4 11.5-15.5 % PLT L 112 130-400 103/uL MPV H 11.3 7.3-10.4 FL Neutro % H 84.4 40-70 % Lymph % L 10.2 20-40 % Gove % 4.5 0-10.0 % Eos % 0.2 0-7.0 % Baso % 0.2 0-2 % Neutro # H 8.2 1.5-7.5 103/uL Lymph # 1.0 0.9-4.0 103/uL Gove # 0.4 0-0.8 103/uL Eos # 0.0 0-0.6 103/uL Baso # 0.0 0-0.1 103/uL Radiology Results [id number] SACRUM COCCYX XRAY - 2V PACs Image DATE OF EXAM: Apr 29 2015 RAD [id number] XRAY-2 VIEW : RADIOLOGY REPORT DATE OF SERVICE: 04/29/15 HISTORY:Status-post fall, trauma, pain. SACRUM/COCCYX 1600 HOURS The sacroiliac joints do not show active pathology. There is mild arthritic change. There is arthritic change involving the L5-S1 level with disc degeneration. IMPRESSION: 1)Osteoarthritis. 2)No acute pathology. Van Murphy DO WP/pb 04/29/2015 16:08: / 04/29/2015 19:29:16 cc: This document has been electronically Signed by: On: DATE OF EXAM: Apr 29 2015 RAD [id number] XRAY-2 VIEW : RADIOLOGY REPORT DATE OF SERVICE: 04/29/15 HISTORY:Status-post fall, trauma, pain. SACRUM/COCCYX 1600 HOURS The sacroiliac joints do not show active pathology. There is mild arthritic change. There is arthritic change involving the L5-S1 level with disc degeneration. IMPRESSION: 1)Osteoarthritis. 2)No acute pathology. Van Murphy DO WP/pb 04/29/2015 16:08:04/29/2015 19:29:16 cc: This document has been electronically Signed by: VAN MURPHY DO On: Apr 30 20158:46A Result Amended on 2015-04-30 at 08:46:15. Previous status was NV. SHOULDER XRAY - 3 VIEW PACs Image DATE OF EXAM: Apr 29 2015 RAD 1415-SHOULDER XRAY-3 VIEW- RIGHT: RADIOLOGY REPORT DATE OF SERVICE: 04/29/15 HISTORY:Status-post fall, trauma, pain. RIGHT SHOULDER 3 VIEWS 1547 HOURS There is mild glenohumeral and acromioclavicular arthritic change. Acute bony injury is not identified. Scapula is intact. IMPRESSION: 1)Mild arthritic change. 2)No acute pathology. Van Murphy DO WP/pb 04/29/2015 16:08: / 04/29/2015 19:30:54 cc: This document has been electronically Signed by: On: DATE OF EXAM: Apr 29 2015 RAD 1415-SHOULDER XRAY-3 VIEW- RIGHT: RADIOLOGY REPORT DATE OF SERVICE: 04/29/15 HISTORY:Status-post fall, trauma, pain. RIGHT SHOULDER 3 VIEWS 1547 HOURS There is mild glenohumeral and acromioclavicular arthritic change. Acute bony injury is not identified. Scapula is intact. IMPRESSION: 1)Mild arthritic change. 2)No acute pathology. Van Murphy DO WP/pb 04/29/2015 16:08: / 04/29/2015 19:30:54 cc: This document has been electronically Signed by: VAN MURPHY DO On: Apr 29:46A Result Amended on 2015-04-30 at 08:46:20. Previous status was NV. WRIST XRAY - 3 VIEW PACs Image DATE OF EXAM: Apr 29 2015 RAD 1704-WRIST XRAY-3 VIEWS- RIGHT: RADIOLOGY REPORT DATE OF SERVICE: 04/29/15 HISTORY:Status-post fall, trauma, pain. RIGHT WRIST 3 [id number] HOURS No acute bony or soft tissue pathology can be seen. The articular surfaces are smooth. Accessory ossicle involving the hamate is noted with small cyst. Acute injury is not seen. No soft tissue changes are demonstrated. IMPRESSION: 1)Normal study. Van Murphy DO WP/pb 04/29/2015 16:08: / 04/29/2015 19:33:00 cc: This document has been electronically Signed by: On: DATE OF EXAM: Apr 29 2015 RAD 1704-WRIST XRAY-3 VIEWS- RIGHT: RADIOLOGY REPORT DATE OF SERVICE: 04/29/15 HISTORY:Status-post fall, trauma, pain. RIGHT WRIST 3 [id number] HOURS No acute bony or soft tissue pathology can be seen. The articular surfaces are smooth. Accessory ossicle involving the hamate is noted with small cyst. Acute injury is not seen. No soft tissue changes are demonstrated. IMPRESSION: 1)Normal study. Van Murphy DO WP/pb 04/29/2015 16:08:00 / 04/29/2015 19:33:00 cc: This document has been electronically Signed by: VAN MURPHY DO On: Apr 29:46A Result Amended on 2015-04-30 at 08:46:27. Previous status was NV. [id number]:00:00 Result Normal Range Units MPV H 11.3 7.3-10.4 FL History of procedures Procedure Code Code Type Description Date Performed Performing Physician 66023 CPT-4 ROUTINE VENIPUNCTURE 04-29-2015 AMBROSE WYATT 04816 CPT-4 X-RAY EXAM SACRUM TAILBONE 04-29-2015 AMBROSE WYATT 38605 CPT-4 X-RAY EXAM OF SHOULDER 04-29-2015 AMBROSE WYATT 62734 CPT-4 X-RAY EXAM OF WRIST 04-29-2015 AMBROSE WYATT 69038 CPT-4 COMPLETE CBC W/AUTO DIFF WBC 04-29-2015 AMBROSE WYATT J1885 CPT-4 KETOROLAC TROMETHAMINE INJ 04-29-2015 AMBROSE WYATT J2405 CPT-4 ONDANSETRON HCL INJECTION 04-29-2015 AMBROSE WYATT J3010 CPT-4 FENTANYL CITRATE INJECITON 04-29-2015 AMBROSE WYATT 69220 CPT-4 EMERGENCY DEPT VISIT 04-29-2015 AMBROSE WYATT 99841 CPT-4 EMERGENCY DEPT VISIT 04-29-2015 AMBROSE WYATT 70008 CPT-4 THER/PROPH/DIAG INJ IV PUSH 04-29-2015 AMBROSE WYATT 11502 CPT-4 TX/PRO/DX INJ NEW DRUG ADDON 04-29-2015 AMBROSE WYATT Functional status Functional Status Finding Observation Time Abdomen Appearance obese [id number]:50 Abdomen soft :50 Bowel Sounds present [id number]:50 Wagner no :50 Urination normal :50 Quality sym/unlabored :50 Cough non-productive :50 Secretions no :50 Breath Sounds RUL clear :50 Breath Sounds RML clear :50 Breath Sounds RLL clear :50 Breath Sounds CECILIA clear :50 Breath Sounds LLL clear :50 Airway natural :50 Chest Tube no :50 Oxygen no [id number]:00 Temp >100.4 yes :50 Temp <96.8 no :50 Chills with rigors no :50 HR > 90bpm yes :50 Respirations > 20 yes :50 Systolic <90 no :50 headache stiff neck no :50 IV Site Location L Arm [id number]:00 IV Type peripheral :00 IV Site Information [...] :00 BP Diastolic 50mmHg :00 Temperature 98.6F :50 Social history No Social History or smoking status observations were recorded for this visit. ( Unknown if ever smoked.) Treatment Plan No treatment plan text is available for this visit. Hospital discharge instructions Dismissal Condition good Disposition on DC home DC Inst/Educ Give yes PNE Vac unknown Flu Vac 2014
--- OUTSIDE RECORDS SUMMARY | 2016-08-07 13:06 | XMS REPORT | Clinical Summary ---
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 V58.69 Resolved Jonel Hemphill MD Long-term [...] Coronary atherosclerosis of unspecified type of vessel, kluti kaah or graft FH DIABETES V18.0 Resolved Jonel [...] Coronary atherosclerosis of unspecified type of vessel, kluti kaah or graft CONSTIPATION 564.00 Resolved Jonel Hemphill [...] or around eye Fever 780.60 Resolved Jonel Hmephill MD Fever , unspecified Chest pain 786.50 [...] skin and change every 72 hours FENTANYL 54996791020 Active Jonel Hemphill MD Active MIRALAX POWD 17 gms in 4 oz water or juice daily POLYETHYLENE GLYCOL 3350 98557635633 Active Jonel Hemphill MD Active [facility] MELATONIN 3 MG ORAL TABS 2 tabs at hs MELATONIN 82526940438 Active Jonel Hemphill MD Active MAGNESIUM GLUCONATE 500 MG ORAL TABS 1 tab twice daily MAGNESIUM GLUCONATE 18311359607 Active Jonel Hemphill MD Active OMEPRAZOLE 20 MG CPDR 1 tablet by mouth daily OMEPRAZOLE 90174205966 Active Jonel Hemphill MD Active DIGOXIN 125 MCG ORAL TABS 1 daily DIGOXIN 41209993368 Active Jonel Hemphill MD Active DILTIAZEM CD 240 MG ORAL [id number] 1 daily DILTIAZEM HCL COATED BEADS 47276137868 Active Jonel Hemphill MD Active NOVOLOG 100 UNIT/ML SC SOLN 70-140=0U 141-180=2 U 181-220=4U 221-260=6U 261- 300=8U 301-340=10U 421=622=01D 381-400=14U INSULIN ASPART 75405253713 Active Jonel Hemphill MD Active ACETAMINOPHEN 325 MG ORAL TABS 1 tab by mouth every 4 hours as needed ACETAMINOPHEN 37632251660 Active Jonel Hemphill MD Active FENTANYL 12 MCG/HR PT72 Apply to clean, dry skin and change every 72 hours FENTANYL 71612917199 No Longer Active Jonel Hemphill MD Active PHENYTOIN 50 MG CHEW 1 TAB PO BID PHENYTOIN 42325416013 No Longer Active Jonel Hemphill MD Active NORCO 5-325 MG TABS 1-2 TAB Q 6 HRS PRN HYDROCODONE- ACETAMINOPHEN 41485284532 No Longer Active Jonel Hemphill MD Active MULTIVITAMINS CAPS 1 DAILY MULTIPLE VITAMIN 44704136239 No Longer Active Jonel Hemphill MD Active BUPROPION HCL ER (SR) 150 MG [id number] 1 twice a day for depression BUPROPION HCL 57059110984 No Longer Active Jonel Hemphill MD Active LISINOPRIL 20 MG TABS 1 tablet by mouth daily LISINOPRIL 55034529800 Active Jonel Hemphill MD Active ULORIC 40 MG ORAL TABS 1 daily for gout. FEBUXOSTAT 10273493633 No Longer Active Jonel Hemphill MD Active CELEXA 20 MG TABS 1 tablet by mouth daily CITALOPRAM HYDROBROMIDE 46509031880 Active Marleni Raida Active ZOFRAN 4 MG TABS 1 po q6hr PRN Nausea ONDANSETRON HCL 88188724874 Active Jonel Hemphill MD Active XARELTO 20 MG ORAL TABS 1 daily RIVAROXABAN 30774685007 Active Jonel Hemphill MD Active JANUVIA 100 MG ORAL TABS 2 tabs daily SITAGLIPTIN PHOSPHATE 12487127271 Active Jonel Hemphill MD Active CELEXA 20 MG TABS Take 1 tablet 1x daily CITALOPRAM HYDROBROMIDE 38970332309 No Longer Active Jonel Hemphill MD Active ATIVAN 0.5 MG TABS Take 1 tablet 2x daily PRN LORAZEPAM 89728011271 No Longer Active Jonel Hemphill MD Active FUROSEMIDE 80 MG ORAL TABS 1 daily FUROSEMIDE 60085358295 Active Jonel Hemphill MD Active MECLIZINE HCL 25 MG CHEW TAB 1 four times a day as needed for dizziness 02/21 MECLIZINE HCL 83874045510 No Longer Active Jonel Hemphill MD Active ZYLOPRIM 300 MG TAB 1 BY MOUTH DAILY ALLOPURINOL 50828788418 No Longer Active Jonel Hemphill MD Active METOPROLOL TARTRATE 50 MG ORAL TABS 1 TAB BY MOUTH TWICE DAILY METOPROLOL TARTRATE 28431031868 No Longer Active Jonel Hemphill MD Active GABAPENTIN 400 MG ORAL CAPS 1 TAB BY MOUTH THREE TIMES DAILY 2015 GABAPENTIN 70594193486 No Longer Active Jonel Hemphill MD Active HYDROCODONE-ACETAMINOPHEN 7.5-325 MG TABS 1 TAB PO Q 6 HRS PRN HYDROCODONE-ACETAMINOPHEN 63693304798 Active Jonel Hemphill MD Active METFORMIN HCL 1000 MG TABS 1 tablet by mouth twice daily METFORMIN HCL 94732263104 Active Marleni Romero Active KLOR-CON 20 MEQ ORAL PACK 1 BY MOUTH DAILY POTASSIUM CHLORIDE 78237270755 Active Marleni Romero Active A+D FIRST AID EXT OINT APPLY OINTMENT AND RUFINO WRAPS TO LOWER EXTEREMETIES DAILY SKIN PROTECTANTS, MISC. 94203625866 Active Jonel Hemphill MD Active NYSTATIN 319968 UNIT/GM EXT OINT APPLY PRN TID TO GAULDING/RASH IN ABDOMINAL FOLDS NYSTATIN 69471040536 Active Jonel Hemphill MD Active GABAPENTIN 300 MG CAPS 1 CAP PO TID GABAPENTIN 58651507267 No Longer Active Jonel Hemphill MD Active DILANTIN 100 MG ORAL CAPS 1 THREE TIMES DAILY FOR SEIZURES PHENYTOIN SODIUM EXTENDED 99460000606 Active Marleni Romero Active CPAP APPLY AT HS CPAP Active Jonel Hemphill MD Active HYDROCODONE-ACETAMINOPHEN 7.5-325 MG TABS 1 q 6 hrs prn HYDROCODONE-ACETAMINOPHEN 17751625523 No Longer Active Jonel Hemphill MD Active DILANTIN 100 MG CAPS 3 cap tid PHENYTOIN SODIUM EXTENDED 95834157190 No Longer Active Jonel Hemphill MD Active BUDEPRION SR 150 MG [id number] 1 bid BUPROPION HCL 85307612294 No Longer Active Jonel Hemphill MD Active ALLOPURINOL 300 MG TABS 1 qd ALLOPURINOL 80206654148 No Longer Active Jonel Hemphill MD Active COZAAR 100 MG TABS 1 qd LOSARTAN POTASSIUM 11835483912 No Longer Active Jonel Hemphill MD Active CVS VITAMIN C 500 MG TABS 1 po daily ASCORBIC ACID 83290578731 No Longer Active Jonel Hemphill MD Active MIRALAX POWD 17 gms in 4 oz water or juice daily POLYETHYLENE GLYCOL 3350 84818487390 No Longer Active Jonel Hemphill MD Active POTASSIUM CHLORIDE CHELA ER 20 MEQ CR-TABS 1 tab PO daily POTASSIUM CHLORIDE CHELA CR 37360307077 No Longer Active Jonel Hemphill MD Active AMBIEN 10 MG TAB 1 tab by mouth at bedtime as needed for sleep ZOLPIDEM TARTRATE 27909324578 No Longer Active Jonel Hemphill MD Active SULFAMETHOXAZOLE-TMP DS 800-160 MG TABS 1 TAB PO BID SULFAMETHOXAZOLE-TRIMETHOPRIM 24413565845 No Longer Active Jonel Hemphill MD Active LEVEMIR 100 UNIT/ML SOLN 5 units sub-q at bedtime INSULIN DETEMIR 13953130176 No Longer Active Tova Perez Active MOBIC 15 MG TABS 1 tab PO daily for arthritis pain MELOXICAM 74545546917 No Longer Active Tova Perez Active GLUCAGEN 1 MG SOLR INJECT 1MG IM IF BS LESS THAN 60 & RES. IS UNABLE TO SWALLOW GLUCAGON HCL (RDNA) 28360918161 No Longer Active Tova Perez Active [facility]S MILK OF MAGNESIA 1200 MG/15ML SUSP 30 ml daily for constipation MAGNESIUM HYDROXIDE 45681253320 No Longer Active Tova Perez Active IMDUR 120 MG [id number] 1 qd ISOSORBIDE MONONITRATE 01540561359 No Longer Active Tova Perez Active NEURONTIN 400 MG CAPS Take one by mouth 3 times daily, morning, afternoon and evening.] GABAPENTIN 39942524768 No Longer Active Tova Perez Active ANTIVERT 25 MG TABS 1 q 6 hrs prn MECLIZINE HCL 81941689893 No Longer Active Jonel Hemphill MD Active CLONIDINE HCL 0.2 MG TABS 1 q 8 hrs as needed -greater than 160-htn CLONIDINE HCL 55624849209 No Longer Active Jonel Hemphill MD Active AMBIEN 10 MG TABS 1 q hs prn ZOLPIDEM TARTRATE 18423318312 No Longer Active Jonel Hemphill MD Active GNP THERAPEUTIC-M TABS 1 qd MULTIPLE VITAMINS- MINERALS 66168212813 No Longer Active Jonel Hemphill MD Active METOPROLOL TARTRATE 50 MG TABS 1 bid METOPROLOL TARTRATE 75738145134 No Longer Active Jonel Hemphill MD Active METFORMIN HCL 500 MG TABS 1 bod with food METFORMIN HCL 69445869711 No Longer Active Jonel Hemphill MD Active LISINOPRIL 40 MG TABS 1 qd LISINOPRIL 16198446537 No Longer Active Jonel Hemphill MD Active HYDROCHLOROTHIAZIDE 25 MG TABS 1 qd HYDROCHLOROTHIAZIDE 70121923550 No Longer Active Jonel Hemphill MD Active DURAGESIC-25 25 MCG/HR PT72 place 1 patch on the skin q72hrs for pain FENTANYL 14079231005 No Longer Active Jonel Hemphill MD Active FENTANYL 75 MCG/HR PT72 place 1 patch on skin q72hrs fr pain 2012 FENTANYL 86339973780 No Longer Active Jonel Hemphill MD Active FUROSEMIDE 40 MG TABS 1 q am FUROSEMIDE 48165102478 No Longer Active Jonel Hemphill MD Active HEPARIN (PORCINE) LOCK FLUSH 100 UNIT/ML SOLN Flush port a cath monthly every three week on with Heparin and NS HEPARIN LOCK FLUSH 69277606801 Active Jonel Hemphill MD Active FENTANYL 100 MCG/HR PT72 Apply every 3 days FENTANYL 10743556186 Active Jonel Hemphill MD Active FENTANYL 25 MCG/HR PT72 Apply to clean skin and change every 72 hours. 07/03 FENTANYL 05636785409 No Longer Active Jonel Hemphill MD Active FENTANYL 50 MCG/HR PT72 place 1 patch on skin q72 hours FENTANYL 64433915550 No Longer Active Mayco Shah APRN Active DURAGESIC-12 12 MCG/HR PT72 APPLY PATCH TO SKIN AND CHANGE EVERY 72 HOURS, ROTATE SITES FENTANYL 65095602393 No Longer Active Fozia HERNANDEZ Active FUROSEMIDE 20 MG TABS 1 qd FUROSEMIDE 35910392729 No Longer Active [place]any [place] Active ADULT ASPIRIN EC LOW STRENGTH 81 MG TBEC 1 qd ASPIRIN 64287870415 Active MARY Perez Active FUROSEMIDE 20 MG TABS 1 qd FUROSEMIDE 20 MG TABS 913544 FUROSEMIDE Inactive DURAGESIC-12 12 MCG/HR PT72 APPLY PATCH TO SKIN AND CHANGE EVERY 72 HOURS, ROTATE SITES DURAGESIC-12 12 MCG/HR PT72 278140 FENTANYL Inactive FENTANYL 50 MCG/HR PT72 place 1 patch on skin q72 hours FENTANYL 50 MCG/HR PT72 627447 FENTANYL Inactive FUROSEMIDE 40 MG TABS 1 q am FUROSEMIDE 40 MG TABS 488790 FUROSEMIDE Inactive FENTANYL 75 MCG/HR PT72 place 1 patch on skin q72hrs fr pain 2012 FENTANYL 75 MCG/HR PT72 978648 FENTANYL Inactive DURAGESIC-25 25 MCG/HR PT72 place 1 patch on the skin q72hrs for pain DURAGESIC-25 25 MCG/HR PT72 441692 FENTANYL Inactive HYDROCHLOROTHIAZIDE 25 MG TABS 1 qd HYDROCHLOROTHIAZIDE 25 MG TABS 122677 HYDROCHLOROTHIAZIDE Inactive LISINOPRIL 40 MG TABS 1 qd LISINOPRIL 40 MG TABS 932008 LISINOPRIL Inactive METFORMIN HCL 500 MG TABS 1 bod with food METFORMIN HCL 500 MG TABS 305506 METFORMIN HCL Inactive METOPROLOL TARTRATE 50 MG TABS 1 bid METOPROLOL TARTRATE 50 MG TABS 153798 METOPROLOL TARTRATE Inactive GNP THERAPEUTIC-M TABS 1 qd GNP THERAPEUTIC-M TABS MULTIPLE VITAMINS-MINERALS Inactive AMBIEN 10 MG TABS 1 q hs prn AMBIEN 10 MG TABS 479323 ZOLPIDEM TARTRATE Inactive CLONIDINE HCL 0.2 MG TABS 1 q 8 hrs as needed -greater than 160-htn CLONIDINE HCL 0.2 MG TABS 061883 CLONIDINE HCL Inactive ANTIVERT 25 MG TABS 1 q 6 hrs prn ANTIVERT 25 MG TABS MECLIZINE HCL Inactive NEURONTIN 400 MG CAPS Take one by mouth 3 times daily, morning, afternoon and evening.] NEURONTIN 400 MG CAPS 775556 GABAPENTIN Inactive IMDUR 120 MG [id number] 1 qd IMDUR 120 MG [id number] ISOSORBIDE MONONITRATE Inactive [facility]S MILK OF MAGNESIA [...] for arthritis pain MOBIC 15 MG TABS 236309 MELOXICAM Inactive LEVEMIR 100 UNIT/ML SOLN 5 units sub-q at bedtime LEVEMIR 100 UNIT/ML SOLN INSULIN DETEMIR Inactive SULFAMETHOXAZOLE-TMP DS 800-160 MG TABS 1 TAB PO BID SULFAMETHOXAZOLE-TMP DS 800-160 MG TABS 277320 SULFAMETHOXAZOLE-TRIMETHOPRIM Inactive AMBIEN 10 MG TAB 1 tab by mouth at bedtime as needed for sleep AMBIEN 10 MG TAB 904297 ZOLPIDEM TARTRATE Inactive POTASSIUM CHLORIDE CHELA ER 20 MEQ CR-TABS 1 tab PO daily POTASSIUM CHLORIDE CHELA ER 20 MEQ CR-TABS POTASSIUM CHLORIDE CHELA CR Inactive MIRALAX POWD 17 gms in 4 oz water or juice daily MIRALAX POWD 294040 POLYETHYLENE GLYCOL 3350 Inactive CVS VITAMIN C 500 MG TABS 1 po daily CVS VITAMIN C 500 MG TABS 237435 ASCORBIC ACID Inactive COZAAR 100 MG TABS 1 qd COZAAR 100 MG TABS 030200 LOSARTAN POTASSIUM Inactive ALLOPURINOL 300 MG TABS 1 qd ALLOPURINOL 300 MG TABS 070109 ALLOPURINOL Inactive BUDEPRION SR 150 MG [id number] 1 bid BUDEPRION SR 150 MG [id number] BUPROPION HCL Inactive DILANTIN 100 MG CAPS 3 cap tid DILANTIN 100 MG CAPS 726655 PHENYTOIN SODIUM EXTENDED Inactive HYDROCODONE-ACETAMINOPHEN 7.5-325 MG TABS 1 q 6 hrs prn HYDROCODONE-ACETAMINOPHEN 7.5-325 MG TABS 399438 HYDROCODONE- ACETAMINOPHEN Inactive GABAPENTIN 300 MG CAPS 1 CAP PO TID GABAPENTIN 300 MG CAPS 962128 GABAPENTIN Inactive GABAPENTIN 400 MG ORAL CAPS 1 TAB BY MOUTH THREE TIMES DAILY 2015 GABAPENTIN 400 MG ORAL CAPS 990909 GABAPENTIN Inactive METOPROLOL TARTRATE 50 MG ORAL TABS 1 TAB BY MOUTH TWICE DAILY METOPROLOL TARTRATE 50 MG ORAL TABS 750754 METOPROLOL TARTRATE Inactive ZYLOPRIM 300 MG TAB 1 BY MOUTH DAILY ZYLOPRIM 300 MG TAB 312980 ALLOPURINOL Inactive MECLIZINE HCL 25 MG CHEW TAB 1 four times a day as needed for dizziness 02/21 MECLIZINE HCL 25 MG CHEW TAB 477791 MECLIZINE HCL Inactive ATIVAN 0.5 MG TABS Take 1 tablet 2x daily PRN ATIVAN 0.5 MG TABS 051329 LORAZEPAM Inactive CELEXA 20 MG TABS Take 1 tablet 1x daily CELEXA 20 MG TABS 175140 CITALOPRAM HYDROBROMIDE Inactive ULORIC 40 MG ORAL TABS 1 daily for gout. ULORIC 40 MG ORAL TABS FEBUXOSTAT Inactive BUPROPION HCL ER (SR) 150 MG [id number] 1 twice a day for depression BUPROPION HCL ER (SR) 150 MG [id number] BUPROPION HCL Inactive MULTIVITAMINS CAPS 1 DAILY MULTIVITAMINS CAPS MULTIPLE VITAMIN Inactive NORCO 5-325 MG TABS 1-2 TAB Q 6 HRS PRN NORCO 5-325 MG TABS 509159 HYDROCODONE-ACETAMINOPHEN Inactive PHENYTOIN 50 MG CHEW 1 TAB PO BID PHENYTOIN 50 MG CHEW 9958732 PHENYTOIN Inactive FENTANYL 12 MCG/HR PT72 Apply to clean, dry skin and change every 72 hours FENTANYL 12 MCG/HR PT72 137206 FENTANYL Inactive FENTANYL 25 MCG/HR PT72 Apply to clean skin and change every 72 hours. 2013/ 05/22 FENTANYL 25 MCG/HR PT72 549568 FENTANYL Inactive Advance Directives Directive Description Start [...] mg/dL Encounters Code Encounter Date Provider Facility CPT-66795 Level 4 Est. Patient 18:47:35 PROFESSOR OF ENVIRONMENTAL STUDIES Jonel Hemphill MD [facility] CPT-38877 Level 4 Est. Patient 10:04:48 PROFESSOR OF ENVIRONMENTAL STUDIES Jonel Hemphill MD [facility] CPT-54798 Level 3 Est. Patient 19:05:03 CDT Jonel Hemphill MD [facility] CPT-07045 Level 3 Est. Patient 17:30:47 CDT Kevin Link MD [facility] CPT-54774 Level 3 Est. Patient 18:04:07 CDT Jonel Hemphill MD [facility] CPT-08540 Level 3 Est. Patient 17:18:03 CDT Jonel Hemphill MD [facility] CPT-26459 Level 3 Est. Patient 21:58:03 PROFESSOR OF ENVIRONMENTAL STUDIES Jonel Hemphill MD [facility] CPT-89473 Level 4 Est. Patient 18:03:14 CDT Jonel Yeager [facility]-52935 Level 4 Est. Patient 13:24:53 CDT Jon[facility] Hemphill [facility] CPT-97028 Level 4 Est. Patient 09:15:44 CDT Jonel Hemphill MD [facility]-31858 Level 4 Est. Patient 19:16:01 CDT Jonel Hemphill MD [facility]-48067 Level 4 Est. Patient 11:25:16 CDT Jonel Hemphill MD [facility] CPT-53083 Level 4 Est. Patient 09:00:40 CDT Jonel Hemphill MD [facility]-43713 Level 4 Est. Patient 14:53:58 CDT Jonel Hemphill MD [facility]-08604 Level 4 Est. Patient 22:59:01 CDT Jonel Hemphill MD [facility]-28460 Level 4 Est. Patient 09:29:57 CDT Jonel Hemphill MD [facility]-07040 Level 4 Est. Patient 12:35:53 PROFESSOR OF ENVIRONMENTAL STUDIES Jonel Hemphill MD [facility]-30252 Level 4 Est. Patient 22:36:09 PROFESSOR OF ENVIRONMENTAL STUDIES Jonel Hemphill MD [facility]-29617 Level 2 Est. Patient 15:14:15 PROFESSOR OF ENVIRONMENTAL STUDIES Mayco Shah APRN [facility] CPT-45116 Level 4 Est. Patient 10:36:22 PROFESSOR OF ENVIRONMENTAL STUDIES Jonel Hemphill MD [facility] CPT-61674 Level 4 Est. Patient 22:01:13 PROFESSOR OF ENVIRONMENTAL STUDIES Jonel Hemphill MD [facility]-20858 Level 3 Est. Patient 21:50:37 PROFESSOR OF ENVIRONMENTAL STUDIES Jonel Hemphill MD [facility] CPT-61303 Level 4 Est. Patient 15:02:43 CDT Rubin Pierre MD [facility] CPT-77921 Level 4 Est. Patient 14:27:35 CDT Jonel Hemphill MD [facility]-98790 Level 4 Est. Patient 12:41:17 CDT Jonel Hemphill MD [facility]-93722 Level 4 Est. Patient 16:18:55 CDT Jonel Hemphill MD [facility]-32439 Level 4 Est. Patient 17:58:05 CDT Jonel Hemphill MD [facility]-25176 Level 4 Est. Patient 22:10:06 CDT Jonel Hemphill MD [facility]-53779 Level 4 Est. Patient 13:22:09 CDT Jonel Hemphill MD [facility]-19510 Level 4 Est. Patient 22:52:17 PROFESSOR OF ENVIRONMENTAL STUDIES Jonel Hemphill MD [facility]-56207 Level 3 Est. Patient 22:34:10 PROFESSOR OF ENVIRONMENTAL STUDIES Jonel Hemphill MD [facility]-72716 Level 4 Est. Patient 07:49:20 PROFESSOR OF ENVIRONMENTAL STUDIES Jonel Hemphill MD [facility] CPT-06727 Level 3 Est. Patient 08:28:27 PROFESSOR OF ENVIRONMENTAL STUDIES Jonel Hemphill MD [facility] Procedures Code Procedure Name Date Entry Date Standard Description CPT-G0438 Initial Annual Wellness Exam 09:32:09 PROFESSOR OF ENVIRONMENTAL STUDIES CPT-42771 Level 3 Longterm 17:57:17 PROFESSOR OF ENVIRONMENTAL [employer]UDIES CPT-62253 Level 3 Longterm 21:14:15 PROFESSOR [employer] ENVIRONMENTAL STUDIES CPT-55665 Level 3 Longterm 15:38:24 CDT CPT-26288 Level 3 Longterm 08:18:30 CDT CPT-49737 Level 3 Longterm 19:03:14 CDT CPT-56191 Level 3 Longterm 17:42:11 CDT CPT-27419 Level 3 Longterm 16:04:10 CDT CPT-04885 Level 3 Longterm 19:38:15 PROFESSOR OF ENVIRONMENTAL STUDIES CPT-99856 Level 3 Longterm 19:28:48 PROFESSOR OF ENVIRONMENTAL STUDIES CPT-99474 Level 3 Longterm 18:02:20 PROFESSOR OF ENVIRONMENTAL STUDIES CPT-34786 Level 3 Longterm 15:02:14 PROFESSOR OF ENVIRONMENTAL STUDIES CPT-01607 Level 3 Longterm 12:25:37 CDT CPT-10015 Level 3 Longterm 12:48:39 CDT CPT-31244 Level 3 Longterm 17:39:14 CDT CPT-15295 Level 3 Longterm 13:32:58 CDT CPT-75305 Level 3 Longterm 17:43:43 CDT CPT-75624 Level 3 Longterm 12:03:33 PROFESSOR OF ENVIRONMENTAL STUDIES CPT-93838 Level 3 Longterm 18:47:28 PROFESSOR OF ENVIRONMENTAL STUDIES CPT-56561 Level 3 Longterm 17:35:26 PROFESSOR OF ENVIRONMENTAL STUDIES CPT-62319 Level 3 Longterm 18:44:49 PROFESSOR OF ENVIRONMENTAL STUDIES CPT-04284 Level 3 Longterm 18:17:33 CDT CPT-21431 Level 3 Longterm 09:25:33 CDT CPT-79815 Level 3 Longterm 19:11:57 CDT CPT-23785 Level 3 Longterm 09:25:52 CDT CPT-17149 Level 3 Longterm 14:23:59 CDT CPT-74719 Level 3 Longterm 12:09:43 CDT CPT-71130 Level 3 Longterm 09:37:40 CDT CPT-40118 Level 3 Longterm 18:23:02 CDT CPT-72739 Level 3 Longterm 14:09:06 CDT CPT-11441 Level 3 Longterm 12:43:27 PROFESSOR OF ENVIRONMENTAL STUDIES CPT-24777 Postop F/U Visit 14:10:15 PROFESSOR OF ENVIRONMENTAL STUDIES CPT-05983 [facility] 17:07:14 PROFESSOR OF ENVIRONMENTAL STUDIES CPT-42828 Level 3 Longterm 16:14:37 PROFESSOR OF ENVIRONMENTAL STUDIES CPT-81352 Port a cath flush 11:47:42 CDT CPT-16067 Port a cath flush 08:29:49 CDT CPT-OV Office Visit 14:27:58 PROFESSOR OF ENVIRONMENTAL STUDIES
--- OUTSIDE RECORDS SUMMARY | 2016-08-07 13:07 | XMS REPORT ---
Author Author [facility] [employer] [facility] Medical Staff Organization [facility] Address [address] [place], [place] [address] Phone [phone] Care Team Providers Care Packaging Sales Representative Name Role Phone FRANKO PRIETO MD PP [phone] Summary purpose TRANSITION OF CARE AUTO GENERATION [...] Relevant diagnostic tests and/or laboratory data RESULTS Reference Lab (Sendout) [id number] Result Normal Range Units Zinc 77 60-130 mcg/dL TEST PERFORMED AT: [facility] [address] [address] FARIBA MARKS MD,AP History of procedures No procedures recorded for [...]
--- OUTSIDE RECORDS SUMMARY | 2016-08-07 13:07 | XMS REPORT | Clinical Summary ---
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 V58.69 Resolved Jonel Hemphill MD Long-term [...] Coronary atherosclerosis of unspecified type of vessel, [place] or graft FH DIABETES V18.0 Resolved Jonel [...] Coronary atherosclerosis of unspecified type of vessel, [place] or graft CONSTIPATION 564.00 Resolved Jonel Hemphill [...] Acute kidney failure, unspecified HYPERKALEMIA 276.7 Resolved Jnoel Hemphill MD Hyperpotassemia POTASSIUM DEFICIENCY 276.8 Resolved [...] DISEASE ICD-414.00 Malina Hemphill MD 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 USE, CARE HOME ICD-V58.69 Inactive Jonel Hemphill MD SHOULDER STRAIN, [...] skin and change every 72 hours FENTANYL 14976781899 Active Jonel Hemphill MD Active MIRALAX POWD 17 gms in 4 oz water or juice daily POLYETHYLENE GLYCOL 3350 44378049930 Active Jonel Hemphill MD Active CVS MELATONIN 3 MG ORAL TABS 2 tabs at hs MELATONIN 81833735378 Active Jonel Hemphill MD Active MAGNESIUM GLUCONATE 500 MG ORAL TABS 1 tab twice daily MAGNESIUM GLUCONATE 52734721575 Active Jonel Hemphill MD Active OMEPRAZOLE 20 MG CPDR 1 tablet by mouth daily OMEPRAZOLE 78520180267 Active Jonel Hemphill MD Active DIGOXIN 125 MCG ORAL TABS 1 daily DIGOXIN 90024765312 Active Jonel Hemphill MD Active DILTIAZEM CD 240 MG ORAL [id number] 1 daily DILTIAZEM HCL COATED BEADS 07378464804 Active Jonel Hemphill MD Active NOVOLOG 100 UNIT/ML SC SOLN 70-140=0U 141-180=2 U 181-220=4U 221-260=6U 261- 300=8U 301-340=10U 505=976=81X 381-400=14U INSULIN ASPART 65376672228 Active Jonel Hemphill MD Active ACETAMINOPHEN 325 MG ORAL TABS 1 tab by mouth every 4 hours as needed ACETAMINOPHEN 28383269831 Active Jonel Hemphill MD Active FENTANYL 12 MCG/HR PT72 Apply to clean, dry skin and change every 72 hours FENTANYL 86998155020 No Longer Active Jonel Hemphill MD Active PHENYTOIN 50 MG CHEW 1 TAB PO BID PHENYTOIN 51859758113 No Longer Active Jonel Hemphill MD Active NORCO 5-325 MG TABS 1-2 TAB Q 6 HRS PRN HYDROCODONE- ACETAMINOPHEN 82263505915 No Longer Active Jonel Hemphill MD Active MULTIVITAMINS CAPS 1 DAILY MULTIPLE VITAMIN 09348051528 No Longer Active Jonel Hemphill MD Active BUPROPION HCL ER (SR) 150 MG [id number] 1 twice a day for depression BUPROPION HCL 16378770506 No Longer Active Jonel Hemphill MD Active LISINOPRIL 20 MG TABS 1 tablet by mouth daily LISINOPRIL 30965385213 Active Jonel Hemphill MD Active ULORIC 40 MG ORAL TABS 1 daily for gout. FEBUXOSTAT 97148924389 No Longer Active Jonel Hemphill MD Active CELEXA 20 MG TABS 1 tablet by mouth daily CITALOPRAM HYDROBROMIDE 54059858689 Active Marleni Raida Active ZOFRAN 4 MG TABS 1 po q6hr PRN Nausea ONDANSETRON HCL 58307427545 Active Jonel Hemphill MD Active XARELTO 20 MG ORAL TABS 1 daily RIVAROXABAN 07183932525 Active Jonel Hemphill MD Active JANUVIA 100 MG ORAL TABS 2 tabs daily SITAGLIPTIN PHOSPHATE 21363095938 Active Jonel Hemphill MD Active CELEXA 20 MG TABS Take 1 tablet 1x daily CITALOPRAM HYDROBROMIDE 05190817995 No Longer Active Jonel Hemphill MD Active ATIVAN 0.5 MG TABS Take 1 tablet 2x daily PRN LORAZEPAM 80672720308 No Longer Active Jonel Hemphill MD Active FUROSEMIDE 80 MG ORAL TABS 1 daily FUROSEMIDE 61666922957 Active Jonel Hemphill MD Active MECLIZINE HCL 25 MG CHEW TAB 1 four times a day as needed for dizziness 02/21 MECLIZINE HCL 99820498105 No Longer Active Jonel Hemphill MD Active ZYLOPRIM 300 MG TAB 1 BY MOUTH DAILY ALLOPURINOL 36033981816 No Longer Active Jonel Hemphill MD Active METOPROLOL TARTRATE 50 MG ORAL TABS 1 TAB BY MOUTH TWICE DAILY METOPROLOL TARTRATE 38126557638 No Longer Active Jonel Hemphill MD Active GABAPENTIN 400 MG ORAL CAPS 1 TAB BY MOUTH THREE TIMES DAILY 2015 GABAPENTIN 50564661869 No Longer Active Jonel Hemphill MD Active HYDROCODONE-ACETAMINOPHEN 7.5-325 MG TABS 1 TAB PO Q 6 HRS PRN HYDROCODONE-ACETAMINOPHEN 31131006623 Active Jonel Hemphill MD Active METFORMIN HCL 1000 MG TABS 1 tablet by mouth twice daily METFORMIN HCL 71918008523 Active Marleni Romero Active KLOR-CON 20 MEQ ORAL PACK 1 BY MOUTH DAILY POTASSIUM CHLORIDE 88963176207 Active Marleni Romero Active A+D FIRST AID EXT OINT APPLY OINTMENT AND RUFINO WRAPS TO LOWER EXTEREMETIES DAILY SKIN PROTECTANTS, MISC. 50267483460 Active Jonel Hemphill MD Active NYSTATIN 056084 UNIT/GM EXT OINT APPLY PRN TID TO GAULDING/RASH IN ABDOMINAL FOLDS NYSTATIN 90935750148 Active Jonel Hemphill MD Active GABAPENTIN 300 MG CAPS 1 CAP PO TID GABAPENTIN 17658026838 No Longer Active Jonel Hemphill MD Active DILANTIN 100 MG ORAL CAPS 1 THREE TIMES DAILY FOR SEIZURES PHENYTOIN SODIUM EXTENDED 20327773231 Active Marleni Romero Active CPAP APPLY AT HS CPAP Active Jonel Hemphill MD Active HYDROCODONE-ACETAMINOPHEN 7.5-325 MG TABS 1 q 6 hrs prn HYDROCODONE-ACETAMINOPHEN 28625805575 No Longer Active Jonel Hemphill MD Active DILANTIN 100 MG CAPS 3 cap tid PHENYTOIN SODIUM EXTENDED 18668891796 No Longer Active Jonel Hemphill MD Active BUDEPRION SR 150 MG [id number] 1 bid BUPROPION HCL 51077926604 No Longer Active Jonel Hemphill MD Active ALLOPURINOL 300 MG TABS 1 qd ALLOPURINOL 90777832188 No Longer Active Jonel Hemphill MD Active COZAAR 100 MG TABS 1 qd LOSARTAN POTASSIUM 72769483307 No Longer Active Jonel Hemphill MD Active CVS VITAMIN C 500 MG TABS 1 po daily ASCORBIC ACID 12663127968 No Longer Active Jonel Hemphill MD Active MIRALAX POWD 17 gms in 4 oz water or juice daily POLYETHYLENE GLYCOL 3350 73450481399 No Longer Active Jonel Hemphill MD Active POTASSIUM CHLORIDE CHELA ER 20 MEQ CR-TABS 1 tab PO daily POTASSIUM CHLORIDE CHELA CR 96288401736 No Longer Active Jonel Hemphill MD Active AMBIEN 10 MG TAB 1 tab by mouth at bedtime as needed for sleep ZOLPIDEM TARTRATE 96591398307 No Longer Active Jonel Hemphill MD Active SULFAMETHOXAZOLE-TMP DS 800-160 MG TABS 1 TAB PO BID SULFAMETHOXAZOLE-TRIMETHOPRIM 51304157952 No Longer Active Jonel Hemphill MD Active LEVEMIR 100 UNIT/ML SOLN 5 units sub-q at bedtime INSULIN DETEMIR 51575617988 No Longer Active Tova Perez Active MOBIC 15 MG TABS 1 tab PO daily for arthritis pain MELOXICAM 82507514764 No Longer Active Tova Perez Active GLUCAGEN 1 MG SOLR INJECT 1MG IM IF BS LESS THAN 60 & RES. IS UNABLE TO SWALLOW GLUCAGON HCL (RDNA) 24263025832 No Longer Active Tova Perez Active CVS MILK OF MAGNESIA 1200 MG/15ML SUSP 30 ml daily for constipation MAGNESIUM HYDROXIDE 90547628668 No Longer Active Tova Perez Active IMDUR 120 MG EF12G-JAD 1 qd ISOSORBIDE MONONITRATE 51781514196 No Longer Active Tova Perez Active NEURONTIN 400 MG CAPS Take one by mouth 3 times daily, morning, afternoon and evening.] GABAPENTIN 34583823605 No Longer Active Tova Perez Active ANTIVERT 25 MG TABS 1 q 6 hrs prn MECLIZINE HCL 61992241583 No Longer Active Jonel Hemphill MD Active CLONIDINE HCL 0.2 MG TABS 1 q 8 hrs as needed -greater than 160-htn CLONIDINE HCL 98916977135 No Longer Active Jonel Hemphill MD Active AMBIEN 10 MG TABS 1 q hs prn ZOLPIDEM TARTRATE 69912537266 No Longer Active Jonel Hemphill MD Active GNP THERAPEUTIC-M TABS 1 qd MULTIPLE VITAMINS- MINERALS 13311608552 No Longer Active Jonel Hemphill MD Active METOPROLOL TARTRATE 50 MG TABS 1 bid METOPROLOL TARTRATE 84535909280 No Longer Active Jonel Hemphill MD Active METFORMIN HCL 500 MG TABS 1 bod with food METFORMIN HCL 09896586942 No Longer Active Jonel Hemphill MD Active LISINOPRIL 40 MG TABS 1 qd LISINOPRIL 51308141936 No Longer Active Jonel Hemphill MD Active HYDROCHLOROTHIAZIDE 25 MG TABS 1 qd HYDROCHLOROTHIAZIDE 52434063800 No Longer Active Jonel Hemphill MD Active DURAGESIC-25 25 MCG/HR PT72 place 1 patch on the skin q72hrs for pain FENTANYL 25826205067 No Longer Active Jonel Hemphill MD Active FENTANYL 75 MCG/HR PT72 place 1 patch on skin q72hrs fr pain 2012 FENTANYL 11485024176 No Longer Active Jonel Hemphill MD Active FUROSEMIDE 40 MG TABS 1 q am FUROSEMIDE 23269382495 No Longer Active Jonel Hemphill MD Active HEPARIN (PORCINE) LOCK FLUSH 100 UNIT/ML SOLN Flush port a cath monthly every three week on with Heparin and NS HEPARIN LOCK FLUSH 61692265962 Active Jonel Hemphill MD Active FENTANYL 100 MCG/HR PT72 Apply every 3 days FENTANYL 86484757318 Active Jonel Hemphill MD Active FENTANYL 25 MCG/HR PT72 Apply to clean skin and change every 72 hours. 07/03 FENTANYL 52725493977 No Longer Active Jonel Hemphill MD Active FENTANYL 50 MCG/HR PT72 place 1 patch on skin q72 hours FENTANYL 82090914368 No Longer Active Mayco Shah APRN Active DURAGESIC-12 12 MCG/HR PT72 APPLY PATCH TO SKIN AND CHANGE EVERY 72 HOURS, ROTATE SITES FENTANYL 94283501914 No Longer Active Fozia HERNANDEZ Active FUROSEMIDE 20 MG TABS 1 qd FUROSEMIDE 74667569519 No Longer Active Mahogany Baker Active ADULT ASPIRIN EC LOW STRENGTH 81 MG TBEC 1 qd ASPIRIN 94994381168 Active MARY Perez Active FUROSEMIDE 20 MG TABS 1 qd FUROSEMIDE 20 MG TABS 880837 FUROSEMIDE Inactive DURAGESIC-12 12 MCG/HR PT72 APPLY PATCH TO SKIN AND CHANGE EVERY 72 HOURS, ROTATE SITES DURAGESIC-12 12 MCG/HR PT72 976806 FENTANYL Inactive FENTANYL 50 MCG/HR PT72 place 1 patch on skin q72 hours FENTANYL 50 MCG/HR PT72 965629 FENTANYL Inactive FUROSEMIDE 40 MG TABS 1 q am FUROSEMIDE 40 MG TABS 479622 FUROSEMIDE Inactive FENTANYL 75 MCG/HR PT72 place 1 patch on skin q72hrs fr pain 2012 FENTANYL 75 MCG/HR PT72 739519 FENTANYL Inactive DURAGESIC-25 25 MCG/HR PT72 place 1 patch on the skin q72hrs for pain DURAGESIC-25 25 MCG/HR PT72 470327 FENTANYL Inactive HYDROCHLOROTHIAZIDE 25 MG TABS 1 qd HYDROCHLOROTHIAZIDE 25 MG TABS 618012 HYDROCHLOROTHIAZIDE Inactive LISINOPRIL 40 MG TABS 1 qd LISINOPRIL 40 MG TABS 131147 LISINOPRIL Inactive METFORMIN HCL 500 MG TABS 1 bod with food METFORMIN HCL 500 MG TABS 260658 METFORMIN HCL Inactive METOPROLOL TARTRATE 50 MG TABS 1 bid METOPROLOL TARTRATE 50 MG TABS 264078 METOPROLOL TARTRATE Inactive GNP THERAPEUTIC-M TABS 1 qd GNP THERAPEUTIC-M TABS MULTIPLE VITAMINS-MINERALS Inactive AMBIEN 10 MG TABS 1 q hs prn AMBIEN 10 MG TABS 941328 ZOLPIDEM TARTRATE Inactive CLONIDINE HCL 0.2 MG TABS 1 q 8 hrs as needed -greater than 160-htn CLONIDINE HCL 0.2 MG TABS 241866 CLONIDINE HCL Inactive ANTIVERT 25 MG TABS 1 q 6 hrs prn ANTIVERT 25 MG TABS MECLIZINE HCL Inactive NEURONTIN 400 MG CAPS Take one by mouth 3 times daily, morning, afternoon and evening.] NEURONTIN 400 MG CAPS 058265 GABAPENTIN Inactive IMDUR 120 MG [id number]-CHF 1 qd IMDUR 120 MG [id number]-ZWE ISOSORBIDE MONONITRATE Inactive CVS MILK OF MAGNESIA [...] for arthritis pain MOBIC 15 MG TABS 453966 MELOXICAM Inactive LEVEMIR 100 UNIT/ML SOLN 5 units sub-q at bedtime LEVEMIR 100 UNIT/ML SOLN INSULIN DETEMIR Inactive SULFAMETHOXAZOLE-TMP DS 800-160 MG TABS 1 TAB PO BID SULFAMETHOXAZOLE-TMP DS 800-160 MG TABS 043612 SULFAMETHOXAZOLE-TRIMETHOPRIM Inactive AMBIEN 10 MG TAB 1 tab by mouth at bedtime as needed for sleep AMBIEN 10 MG TAB 634068 ZOLPIDEM TARTRATE Inactive POTASSIUM CHLORIDE CHELA ER 20 MEQ CR-TABS 1 tab PO daily POTASSIUM CHLORIDE CHELA ER 20 MEQ CR-TABS POTASSIUM CHLORIDE CHELA CR Inactive MIRALAX POWD 17 gms in 4 oz water or juice daily MIRALAX POWD 048592 POLYETHYLENE GLYCOL 3350 Inactive CVS VITAMIN C 500 MG TABS 1 po daily CVS VITAMIN C 500 MG TABS 379758 ASCORBIC ACID Inactive COZAAR 100 MG TABS 1 qd COZAAR 100 MG TABS 301181 LOSARTAN POTASSIUM Inactive ALLOPURINOL 300 MG TABS 1 qd ALLOPURINOL 300 MG TABS 098291 ALLOPURINOL Inactive BUDEPRION SR 150 MG [id number] 1 bid BUDEPRION SR 150 MG [id number] BUPROPION HCL Inactive DILANTIN 100 MG CAPS 3 cap tid DILANTIN 100 MG CAPS 288733 PHENYTOIN SODIUM EXTENDED Inactive HYDROCODONE-ACETAMINOPHEN 7.5-325 MG TABS 1 q 6 hrs prn HYDROCODONE-ACETAMINOPHEN 7.5-325 MG TABS 052869 HYDROCODONE- ACETAMINOPHEN Inactive GABAPENTIN 300 MG CAPS 1 CAP PO TID GABAPENTIN 300 MG CAPS 766004 GABAPENTIN Inactive GABAPENTIN 400 MG ORAL CAPS 1 TAB BY MOUTH THREE TIMES DAILY 2015 GABAPENTIN 400 MG ORAL CAPS 920125 GABAPENTIN Inactive METOPROLOL TARTRATE 50 MG ORAL TABS 1 TAB BY MOUTH TWICE DAILY METOPROLOL TARTRATE 50 MG ORAL TABS 669201 METOPROLOL TARTRATE Inactive ZYLOPRIM 300 MG TAB 1 BY MOUTH DAILY ZYLOPRIM 300 MG TAB 030036 ALLOPURINOL Inactive MECLIZINE HCL 25 MG CHEW TAB 1 four times a day as needed for dizziness 02/21 MECLIZINE HCL 25 MG CHEW TAB 071780 MECLIZINE HCL Inactive ATIVAN 0.5 MG TABS Take 1 tablet 2x daily PRN ATIVAN 0.5 MG TABS 758168 LORAZEPAM Inactive CELEXA 20 MG TABS Take 1 tablet 1x daily CELEXA 20 MG TABS 268546 CITALOPRAM HYDROBROMIDE Inactive ULORIC 40 MG ORAL TABS 1 daily for gout. ULORIC 40 MG ORAL TABS FEBUXOSTAT Inactive BUPROPION HCL ER (SR) 150 MG AM30T-RZV 1 twice a day for depression BUPROPION HCL ER (SR) 150 MG [id number]-UPO BUPROPION HCL Inactive MULTIVITAMINS CAPS 1 DAILY MULTIVITAMINS CAPS MULTIPLE VITAMIN Inactive NORCO 5-325 MG TABS 1-2 TAB Q 6 HRS PRN NORCO 5-325 MG TABS 106579 HYDROCODONE-ACETAMINOPHEN Inactive PHENYTOIN 50 MG CHEW 1 TAB PO BID PHENYTOIN 50 MG CHEW 4492878 PHENYTOIN Inactive FENTANYL 12 MCG/HR PT72 Apply to clean, dry skin and change every 72 hours FENTANYL 12 MCG/HR PT72 592689 FENTANYL Inactive FENTANYL 25 MCG/HR PT72 Apply to clean skin and change every 72 hours. 07/03 FENTANYL 25 MCG/HR PT72 208259 FENTANYL Inactive Advance Directives Directive Description Start [...] mg/dL Encounters Code Encounter Date Provider Facility CPT-53287 Level 4 Est. Patient 10:04:48 VP SECURITY Jonel Hemphill MD [facility]-47721 Level 3 Est. Patient 19:05:03 CDT Jonel Hemphill MD [facility]-20520 Level 3 Est. Patient 17:30:47 CDT Kevin Link MD [facility]-89694 Level 3 Est. Patient 18:04:07 CDT Jonel Hemphill MD [facility] CPT-42561 Level 3 Est. Patient 17:18:03 CDT Jonel Hemphill MD [facility]-27415 Level 3 Est. Patient 21:58:03 VP SECURITY Jonel Hemphill MD [facility]-21008 Level 4 Est. Patient 18:03:14 CDT Jonel Yeager [facility]-86091 Level 4 Est. Patient 13:24:53 CDT Jonel Yeager [facility]-73048 Level 4 Est. Patient 09:15:44 CDT Jonel Yeager [facility]-09948 Level 4 Est. Patient 19:16:01 CDT Jonel Yeager [facility]-93059 Level 4 Est. Patient 11:25:16 CDT Jonel eHmphill MD [facility] CPT-30352 Level 4 Est. Patient 09:00:40 CDT [facility] CPT-10084 Level 4 Est. Patient 14:53:58 CDT Jonel Hemphill MD [facility] CPT-35565 Level 4 Est. Patient 22:59:01 CDT Jonel Hemphill MD [facility]-83407 Level 4 Est. Patient 09:29:57 CDT Jonel Hemphill MD [facility]-85305 Level 4 Est. Patient 12:35:53 VP SECURITY Jonel Hemphill MD [facility]-64334 Level 4 Est. Patient 22:36:09 VP SECURITY Jonel Hemphill MD [facility]-87763 Level 2 Est. Patient 15:14:15 VP SECURITY Mayco Shah APRN [facility] CPT-16798 Level 4 Est. Patient 10:36:22 VP SECURITY Jonel Hemphill MD [facility] CPT-37271 Level 4 Est. Patient 22:01:13 VP SECURITY Jonel Hemphill MD [facility]-03527 Level 3 Est. Patient 21:50:37 VP SECURITY Jonel Hemphill MD [facility]-70527 Level 4 Est. Patient 15:02:43 CDT Rubin Pierre MD [facility] CPT-62291 Level 4 Est. Patient 14:27:35 CDT Jonel Hemphill MD [facility]-15975 Level 4 Est. Patient 12:41:17 CDT Jonel Hemphill MD [facility]-12966 Level 4 Est. Patient 16:18:55 CDT Jonel Hemphill MD [facility]-24611 Level 4 Est. Patient 17:58:05 CDT Jonel Hemphill MD [facility]-65241 Level 4 Est. Patient 22:10:06 CDT Jonel Hemphill MD [facility]-39726 Level 4 Est. Patient 13:22:09 CDT Jonel Hemphill MD [facility] CPT-17870 Level 4 Est. Patient 22:52:17 VP SECURITY Jonel Hemphill MD [facility] CPT-39805 Level 3 Est. Patient 22:34:10 VP SECURITY Jonel Hemphill MD [facility] CPT-66406 Level 4 Est. Patient 07:49:20 VP SECURITY Jonel Hemphill MD [facility] Skilled CPT-99495 Level 3 Est. Patient 08:28:27 VP SECURITY Jonel Hemphill MD [facility] Procedures Code Procedure Name Date Entry Date Standard Description CPT-91121 Level 3 Care Home 17:57:17 VP SECURITY CPT-19917 Level 3 Care Home 21:14:15 VP SECURITY CPT-90591 Level 3 Care Home 15:38:24 CDT CPT-31049 Level 3 Care Home 08:18:30 CDT CPT-07720 Level 3 Care Home 19:03:14 CDT CPT-72940 Level 3 Care Home 17:42:11 CDT CPT-67561 Level 3 Care Home 16:04:10 CDT CPT-20846 Level 3 Care Home 19:38:15 VP SECURITY CPT-00864 Level 3 Care Home 19:28:48 VP SECURITY CPT-24432 Level 3 Care Home 18:02:20 VP SECURITY CPT-00289 Level 3 Care Home 15:02:14 VP SECURITY CPT-57941 Level 3 Care Home 12:25:37 CDT CPT-49227 Level 3 Care Home 12:48:39 CDT CPT-88629 Level 3 Care Home 17:39:14 CDT CPT-71053 Level 3 Care Home 13:32:58 CDT CPT-58405 Level 3 Care Home 17:43:43 CDT CPT-16393 Level 3 Care Home 12:03:33 VP SECURITY CPT-26800 Level 3 Care Home 18:47:28 VP SECURITY CPT-60574 Level 3 Care Home 17:35:26 VP SECURITY CPT-78170 Level 3 Care Home 18:44:49 VP SECURITY CPT-38959 Level 3 Care Home 18:17:33 CDT CPT-67866 Level 3 Care Home 09:25:33 CDT CPT-07437 Level 3 Care Home 19:11:57 CDT CPT-24961 Level 3 Care Home 09:25:52 CDT CPT-76930 Level 3 Care Home 14:23:59 CDT CPT-58065 Level 3 Care Home 12:09:43 CDT CPT-65680 Level 3 Care Home 09:37:40 CDT CPT-80644 Level 3 Care Home 18:23:02 CDT CPT-35706 Level 3 Care Home 14:09:06 CDT CPT-07074 Level 3 Care Home 12:43:27 VP SECURITY CPT-11797 Postop F/U Visit 14:10:15 VP SECURITY CPT-73290 Sono Soft Tissue Head and Neck 17:07:14 VP SECURITY CPT-32088 Level 3 Care Home 16:14:37 VP SECURITY CPT-21852 Port a cath flush 11:47:42 CDT CPT-59334 Port a cath flush 08:29:49 CDT CPT-OV Office Visit 14:27:58 VP SECURITY
--- OUTSIDE RECORDS SUMMARY | 2016-08-07 13:09 | XMS REPORT | Clinical Summary ---
Author Author Admin, [employer] Organization [facility] Address Unknown Phone Allergies, Adverse Reactions, Alerts Allergy Name Reaction Description Start Date Severity Status Provider PENICILLIN Critical Active [place] Conditions or Problems Problem Name Problem Code Onset Date Status Entry Date Provider Comment Standard Description Annotate DIABETES MELLITUS, TYPE II, CONTROLLED 250.00 Active Jonel Hemphill MD Diabetes mellitus without mention of complication, type II or unspecified type, not stated as uncontrolled MORBID OBESITY 278.01 Active Jonel Hemphill MD Morbid obesity HYPERTENSION 401.1 Active Jonel Hemphill MD Benign essential hypertension 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 USE, JAIL V58.69 Resolved Jonel Hemphill MD Long-term (current) use of other medications C V A / STROKE 436 Active [place] Acute, but ill- defined, cerebrovascular disease C O P D 496 Active [place] Chronic airway obstruction, not elsewhere classified DIABETES, TYPE 2 250.00 Resolved Jonel Hemphill MD Diabetes mellitus without mention of complication, type II or unspecified type, not stated as uncontrolled SEIZURE DISORDER 780.39 Active [place] Other convulsions CORONARY HEART DISEASE 414.00 Resolved Jonel Hemphill MD Coronary atherosclerosis of unspecified type of vessel, ute or graft FH DIABETES V18.0 Resolved [...] Coronary atherosclerosis of unspecified type of vessel, ute or graft CONSTIPATION 564.00 Resolved Jonel [...] not elsewhere classified LUMBAGO 724.2 Resolved Jonel Hemhpill MD Lumbago SHOULDER STRAIN, RIGHT 840.9 Resolved [...] MD Dermatophytosis of the body 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 USE, JAIL ICD-V58.69 Inactive Jonel Hemphill [...] TAB Q 6 HRS PRN HYDROCODONE- ACETAMINOPHEN 36379208230 Active Jonel Hemphill MD Active LEVEMIR 100 UNIT/ML SOLN 5 units sub-q at bedtime INSULIN DETEMIR 32521879871 No Longer Active Tova Perez Active MOBIC 15 MG TABS 1 tab PO daily for arthritis pain MELOXICAM 61413046655 No Longer Active Tova Perez Active GLUCAGEN 1 MG SOLR INJECT 1MG IM IF BS LESS THAN 60 & RES. IS UNABLE TO SWALLOW GLUCAGON HCL (RDNA) 75179723285 No Longer Active Tova Perez Active [facility] MILK OF MAGNESIA 1200 MG/15ML SUSP 30 ml daily for constipation MAGNESIUM HYDROXIDE 12647572673 No Longer Active Tova Perez Active IMDUR 120 MG [id number] 1 qd ISOSORBIDE MONONITRATE 08931727170 No Longer Active Tova Perez Active METFORMIN HCL 500 MG TABS 1 tablet by mouth twice daily METFORMIN HCL 32240890272 Active Tova Perez Active SULFAMETHOXAZOLE-TMP DS 800-160 MG TABS 1 TAB PO BID SULFAMETHOXAZOLE-TRIMETHOPRIM 41393402923 Active Tova Perez Active PHENYTOIN 50 MG CHEW 1 TAB PO BID PHENYTOIN 14440929007 Active Tova Perez Active MECLIZINE HCL 25 MG CHEW TAB 1 four times a day as needed for dizziness 02/21 MECLIZINE HCL 86703700180 Active Tova Perez Active GABAPENTIN 300 MG CAPS 1 CAP PO TID GABAPENTIN 31008094720 Active Tova Perez Active NEURONTIN 400 MG CAPS Take one by mouth 3 times daily, morning, afternoon and evening.] GABAPENTIN 41238481839 No Longer Active Tova Perez Active AMBIEN 10 MG TAB 1 tab by mouth at bedtime as needed for sleep ZOLPIDEM TARTRATE 99128591846 Active oJnel Hemphill MD Active POTASSIUM CHLORIDE CHELA ER 20 MEQ CR-TABS 1 tab PO daily POTASSIUM CHLORIDE CHELA CR 49273139913 Active Jonel Hemphill MD Active ANTIVERT 25 MG TABS 1 q 6 hrs prn MECLIZINE HCL 06494124763 No Longer Active Jonel Hemphill MD Active CLONIDINE HCL 0.2 MG TABS 1 q 8 hrs as needed -greater than 160-htn CLONIDINE HCL 16624150891 No Longer Active Jonel Hemphill MD Active AMBIEN 10 MG TABS 1 q hs prn ZOLPIDEM TARTRATE 21251969739 No Longer Active Jonel Hemphill MD Active GNP THERAPEUTIC-M TABS 1 qd MULTIPLE VITAMINS- MINERALS 47121843375 No Longer Active Jonel Hemphill MD Active METOPROLOL TARTRATE 50 MG TABS 1 bid METOPROLOL TARTRATE 99483167125 No Longer Active Jonel Hemphill MD Active METFORMIN HCL 500 MG TABS 1 bod with food METFORMIN HCL 04345773750 No Longer Active Jonel Hemphill MD Active LISINOPRIL 40 MG TABS 1 qd LISINOPRIL 83642669168 No Longer Active Jonel Hemphill MD Active HYDROCHLOROTHIAZIDE 25 MG TABS 1 qd HYDROCHLOROTHIAZIDE 37409255144 No Longer Active Jonel Hemphill MD Active DURAGESIC-25 25 MCG/HR PT72 place 1 patch on the skin q72hrs for pain FENTANYL 50994271965 No Longer Active Jonel Hemphill MD Active FENTANYL 75 MCG/HR PT72 place 1 patch on skin q72hrs fr pain 2012 FENTANYL 57469382236 No Longer Active Jonel Hemphill MD Active LASIX 20 MG TABS 1 tab PO q morning FUROSEMIDE 49202816485 Active Jonel Hemphill MD Active FUROSEMIDE 40 MG TABS 1 q am FUROSEMIDE 87808138106 No Longer Active Jonel Hemphill MD Active HEPARIN (PORCINE) LOCK FLUSH 100 UNIT/ML SOLN Flush port a cath monthly every three week on with Heparin and NS HEPARIN LOCK FLUSH 75547269892 Active Jonel Hemphill MD Active FENTANYL 100 MCG/HR PT72 Apply every 3 days FENTANYL 79774166216 Active Jonel Hemphill MD Active FENTANYL 25 MCG/HR PT72 Apply to clean skin and change every 72 hours. 07/03 FENTANYL 95304433753 No Longer Active Jonel Hemphill MD Active FENTANYL 50 MCG/HR PT72 place 1 patch on skin q72 hours FENTANYL 03507121448 No Longer Active Mayco Shah APRN Active HYDROCODONE-ACETAMINOPHEN 7.5-325 MG TABS 1 q 6 hrs prn HYDROCODONE-ACETAMINOPHEN 73653271251 Active Jonel Hemphill MD Active ATIVAN 0.5 MG TABS Take 1 tablet 2x daily LORAZEPAM 77788635179 Active Jonel Hemphill MD Active CELEXA 20 MG TABS Take 1 tablet 1x daily CITALOPRAM HYDROBROMIDE 67669823253 Active Jonel Hemphill MD Active MIRALAX POWD 17 gms in 4 oz water or juice daily POLYETHYLENE GLYCOL 3350 47027015783 Active Rubin Pierre MD Active DURAGESIC-12 12 MCG/HR PT72 APPLY PATCH TO SKIN AND CHANGE EVERY 72 HOURS, ROTATE SITES FENTANYL 27407944166 No Longer Active Fozia YANGA Active [facility] VITAMIN C 500 MG TABS 1 po daily ASCORBIC ACID 13792813812 Active [place] Active FUROSEMIDE 20 MG TABS 1 qd FUROSEMIDE 51624713201 No Longer Active Mahog[place] Active ADULT ASPIRIN EC LOW STRENGTH 81 MG TBEC 1 qd ASPIRIN 31962996063 Active Gregor Tisha Active DILANTIN 100 MG CAPS 3 cap tid PHENYTOIN SODIUM EXTENDED 14974617012 Active [place] Active BUDEPRION SR 150 MG [id number] 1 bid BUPROPION HCL 22733611919 Active Gregor [place] Active ALLOPURINOL 300 MG TABS 1 qd ALLOPURINOL 05317473980 Active [place] Tisha Active COZAAR 100 MG TABS 1 qd LOSARTAN POTASSIUM 85517792829 Active Gregor [place] Active FUROSEMIDE 20 MG TABS 1 qd FUROSEMIDE 20 MG TABS 715265 FUROSEMIDE Inactive DURAGESIC-12 12 MCG/HR PT72 APPLY PATCH TO SKIN AND CHANGE EVERY 72 HOURS, ROTATE SITES DURAGESIC-12 12 MCG/HR PT72 944682 FENTANYL Inactive FENTANYL 50 MCG/HR PT72 place 1 patch on skin q72 hours FENTANYL 50 MCG/HR PT72 153742 F[place] Inactive FUROSEMIDE 40 MG TABS 1 q am FUROSEMIDE 40 MG TABS 923976 FUROSEMIDE Inactive FENTANYL 75 MCG/HR PT72 place 1 patch on skin q72hrs fr pain 2012 FENTANYL 75 MCG/HR PT72 996201 F[place] Inactive DURAGESIC-25 25 MCG/HR PT72 place 1 patch on the skin q72hrs for pain DURAGESIC-25 25 MCG/HR PT72 065791 F[place] Inactive HYDROCHLOROTHIAZIDE 25 MG TABS 1 qd HYDROCHLOROTHIAZIDE 25 MG TABS 278699 HYDROCHLOROTHIAZIDE Inactive LISINOPRIL 40 MG TABS 1 qd LISINOPRIL 40 MG TABS 068555 LISINOPRIL Inactive METFORMIN HCL 500 MG TABS 1 bod with food METFORMIN HCL 500 MG TABS 332934 METFORMIN HCL Inactive METOPROLOL TARTRATE 50 MG TABS 1 bid METOPROLOL TARTRATE 50 MG TABS 293077 METOPROLOL TARTRATE Inactive GNP THERAPEUTIC-M TABS 1 qd GNP THERAPEUTIC-M TABS MULTIPLE VITAMINS-MINERALS Inactive AMBIEN 10 MG TABS 1 q hs prn AMBIEN 10 MG TABS 639898 ZOLPIDEM TARTRATE Inactive CLONIDINE HCL 0.2 MG TABS 1 q 8 hrs as needed -greater than 160-htn CLONIDINE HCL 0.2 MG TABS 756720 CLONIDINE HCL Inactive ANTIVERT 25 MG TABS 1 q 6 hrs prn ANTIVERT 25 MG TABS MECLIZINE HCL Inactive NEURONTIN 400 MG CAPS Take one by mouth 3 times daily, morning, afternoon and evening.] NEURONTIN 400 MG CAPS 239678 GABAPENTIN Inactive IMDUR 120 MG [id number] 1 qd IMDUR 120 MG NL94S-AIT ISOSORBIDE MONONITRATE Inactive [facility] MILK OF MAGNESIA [...] for arthritis pain MOBIC 15 MG TABS 440271 MELOXICAM Inactive LEVEMIR 100 UNIT/ML SOLN 5 units sub-q at bedtime LEVEMIR 100 UNIT/ML SOLN INSULIN DETEMIR Inactive FENTANYL 25 MCG/HR PT72 Apply to clean skin and change every 72 hours. 07/03 FENTANYL 25 MCG/HR PT72 243655 FENTANYL Inactive Advance Directives Directive Description Start [...] Panel - Chemistry sodium, serum 137 mmol/L 206-390 0629/06/14 potassium, serum 7.1 mmol/L 3.5-5.2 chloride, serum 107 mmol/L 98-107 carbon dioxide, venous blood 18.7 mmol/L 21.0-32.0 blood glucose 153 mg/dL 65-110 calcium, serum 8.8 mg/dL 8.5-10.1 urea nitrogen, blood 82 mg/dL 7-18 creatinine, serum 2.50 mg/dL 0.60-1.30 sodium, serum 141 mmol/L 689-090 5189/07/01 potassium, serum 3.4 mmol/L 3.5-5.2 chloride, serum [...] dipstick Negative Negative sodium, serum 142 mmol/L 756-265 3069/07/15 potassium, serum 3.9 mmol/L 3.5-5.2 chloride, serum [...] % of total hemoglobin 4.8 % 4.3-6.0 Lab Report: CBC, Comp. Metabolic Panel, HGBA1C, [...] Acid - Chemistry sodium, serum 141 mmol/L 101-836 6515/05/09 potassium, serum 3.9 mmol/L 3.5-5.2 chloride, serum [...] dipstick Negative Negative sodium, serum 140 mmol/L 955-344 5077/02/18 potassium, serum 3.8 mmol/L 3.5-5.2 chloride, serum [...] Negative bilirubin, urine Negative Negative Lab Report: MICROALBUMIN, UADIP W/MICRO, [...] crystals, amorphous, urine, semiquantitative Large None seen Encounters Code Encounter Date Provider Facility CPT-12332 Level 3 Est. Patient 17:18:03 CDT Jonel Hemphill MD [facility] CPT-53432 Level 3 Est. Patient 21:58:03 WAGE CONCILIATOR Jonel Hemphill [place] [facility] [place] [facility] [place] Level 4 Est. Patient 18:03:14 CDT Jonel Yeager [facility]-86859 Level 4 Est. Patient 13:24:53 CDT Jonel Yeager [facility]-33734 Level 4 Est. Patient 09:15:44 CDT Jonel Yeager [facility]-51276 Level 4 Est. Patient 19:16:01 CDT Jonel Yeager [facility]-79139 Level 4 Est. Patient 11:25:16 CDT Jonel Hemphill MD [facility] [facility] [place]-[address]139 Level 4 Est. Patient 09:00:40 CDT Jonel Yeager [facility]45371 Level 4 Est. Patient 14:53:58 CDT Jonel Hemphill MD [facility] CPT-14233 Level 4 Est. Patient 22:59:01 CDT Jonel Hemphill MD [facility]-02861 Level 4 Est. Patient 09:29:57 CDT Jonel Hemphill MD [facility]-08998 Level 4 Est. Patient 12:35:53 WAGE CONCILIATOR Jonel Hemphill MD [facility]-54961 Level 4 Est. Patient 22:36:09 WAGE CONCILIATOR Jonel Hemphill MD [facility]-50422 Level 2 Est. Patient 15:14:15 WAGE CONCILIATOR Mayco Shah APRN [facility] CPT-05374 Level 4 Est. Patient 10:36:22 WAGE CONCILIATOR Jonel Hemphill MD [facility] CPT-78434 Level 4 Est. Patient 22:01:13 WAGE CONCILIATOR Jonel Hemphill MD [facility]-74150 Level 3 Est. Patient 21:50:37 WAGE CONCILIATOR Jonel Hemphill MD [facility] CPT-27255 Level 4 Est. Patient 15:02:43 CDT Rubin Pierre MD [facility] [place] [facility] [place]-21856 Level 4 Est. Patient 14:27:35 CDT Jonel Hemphill MD [facility]-62089 Level 4 Est. Patient 12:41:17 CDT Jonel Hemphill MD [facility]-14811 Level 4 Est. Patient 16:18:55 CDT Jonel Hemphill MD [facility]-09465 Level 4 Est. Patient 17:58:05 CDT Jonel Hemphill MD [facility]-71127 Level 4 Est. Patient 22:10:06 CDT Jonel Hemphill MD [facility]-21704 Level 4 Est. Patient 13:22:09 CDT Jonel Hemphill MD [facility]-50970 Level 4 Est. Patient 22:52:17 WAGE CONCILIATOR Jonel Hemphill MD [facility] CPT-64662 Level 3 Est. Patient 22:34:10 WAGE CONCILIATOR Jonel Hemphill MD [facility] CPT-90229 Level 4 Est. Patient 07:49:20 WAGE CONCILIATOR Jonel Hemphill MD [facility] Skilled CPT-24681 Level 3 Est. Patient 08:28:27 WAGE CONCILIATOR Jonel Hemphill MD [facility] Procedures Code Procedure Name Date Entry Date Standard Description CPT-29512 Level 3 Mcc 12:09:43 CDT CPT-93429 Level 3 Mcc 09:37:40 CDT CPT-26685 Level 3 Mcc 18:23:02 CDT CPT-39854 Level 3 Mcc 14:09:06 CDT CPT-25819 Level 3 Mcc 12:43:27 WAGE CONCILIATOR CPT-72934 Postop F/U Visit 14:10:15 WAGE CONCILIATOR CPT-02105 [facility] Head and Neck 17:07:14 WAGE CONCILIATOR CPT-83247 Level 3 Mcc 16:14:37 WAGE CONCILIATOR CPT-74064 Port a cath flush 11:47:42 CDT CPT-75165 Port a cath flush 08:29:49 CDT CPT-OV Office Visit 14:27:58 WAGE CONCILIATOR
--- OUTSIDE RECORDS SUMMARY | 2016-08-07 13:10 | XMS REPORT ---
Author Author [facility] Medical Staff Organization [facility] Address [address], [place] [address] Phone [phone] Care Team Providers Care Scaler Packer Name Role Phone FRANKO PRIETO MD PP [phone] Summary purpose TRANSITION OF CARE AUTO GENERATION [...] Hours for dizziness Current Patient medication list Dalton 5 mg-325 mg tablet 1 or 2 [...] Functional status Functional Status Finding Observation Time Nursing Note Scans completed. Patient given written and verbal discharge instructions. Patient taken via wheelchair by [facility] staff in Good condition. Chest pain remains at a "0". Patient will return tomorrow for day 2. [id number]:20 Vital signs Type Value Date Height 68inches [id number]:50 Weight 400LB [id number]:50 Social history No Social History or smoking status observations were recorded for this visit. ( Unknown if ever smoked.) Treatment Plan No treatment plan text is available for this visit. Hospital discharge instructions No discharge instruction text is available for this visit.
--- OUTSIDE RECORDS SUMMARY | 2016-08-07 13:10 | XMS REPORT ---
Author Author [facility] Medical Staff Organization [facility] [employer] [facility] Address [address], [place] [address] Phone [phone] Summary purpose TRANSITION OF CARE AUTO GENERATION [...] tests and/or laboratory data RESULTS Radiology Results [id number]:00 Chest Soft Tissue PACs Image DATE OF EXAM: 2015 [id number] TISSUE EXT SONO LIMITED : RADIOLOGY REPORT DATE OF SERVICE: 03/15/2015 HISTORY: The patient has right posterior thigh, soft tissue mass or bulge which apparently has been present for multiple years. There is some cracking of the skin currently and this is to assess for any fluid pocket or abscess. SOFT TISSUE EXTREMITY [id number] HOURS Exam was technically difficult. There appears [...] fluid pocket or abscess. SOFT TISSUE EXTREMITY [id number] HOURS Exam was technically difficult. There appears [...]
--- OUTSIDE RECORDS SUMMARY | 2016-08-07 13:10 | XMS REPORT | Clinical Summary ---
Author Author Admin, KARLAE Organization [facility] Address Unknown Phone Unavailable Allergies, Adverse Reactions, Alerts Allergy Name Reaction Description Start Date Severity Status Provider PENICILLIN Critical Active Irvinejaida Giles RMA Conditions or Problems Problem Name 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, CCO & PRESIDENT V58.69 Resolved Jonel Hemphill MD Long-term (current) [...] Coronary atherosclerosis of unspecified type of vessel, lone pine or graft FH DIABETES V18.0 Resolved Jonel [...] Coronary atherosclerosis of unspecified type of vessel, lone pine or graft CONSTIPATION 564.00 Resolved Jonel Hemphill [...] abscess of leg, except foot 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 USE, CCO & PRESIDENT ICD-V58.69 Inactive Jonel Hemphill MD DIABETES, TYPE [...] TAB PO Q 6 HRS PRN HYDROCODONE-ACETAMINOPHEN 77275598322 Active Jonel Hemphill MD Active METFORMIN HCL 1000 MG TABS 1 tablet by mouth twice daily METFORMIN HCL 44738377547 Active Marleni Romero Active FENTANYL 12 MCG/HR PT72 Apply to clean, dry skin and change every 72 hours FENTANYL 71832291293 Active Jonel Hemphill MD Active KLOR-CON 20 MEQ ORAL PACK 1 BY MOUTH DAILY POTASSIUM CHLORIDE 72559136500 Active Marleni Romero Active A+D FIRST AID EXT OINT APPLY OINTMENT AND RUFINO WRAPS TO LOWER EXTEREMETIES DAILY SKIN PROTECTANTS, MISC. 53309963721 Active Jonel Hemphill MD Active NYSTATIN 105207 UNIT/GM EXT OINT APPLY PRN TID TO GAULDING/RASH IN ABDOMINAL FOLDS NYSTATIN 08777070787 Active Jonel Hemphill MD Active ATIVAN 0.5 MG TABS Take 1 tablet 2x daily PRN LORAZEPAM 76092554448 Active Jonel Hemphill MD Active GABAPENTIN 400 MG ORAL CAPS 1 TAB BY MOUTH THREE TIMES DAILY GABAPENTIN 87833229325 Active Jonel Hemphill MD Active GABAPENTIN 300 MG CAPS 1 CAP PO TID GABAPENTIN 44892672635 No Longer Active Jonel Hemphill MD Active DILANTIN 100 MG ORAL CAPS 1 THREE TIMES DAILY FOR SEIZURES PHENYTOIN SODIUM EXTENDED 01024538530 Active Marleni Romero Active CPAP APPLY AT HS CPAP Active Jonel Hemphill MD Active METOPROLOL TARTRATE 50 MG ORAL TABS 1 TAB BY MOUTH TWICE DAILY METOPROLOL TARTRATE 63517656816 Active Jonel Hemphill MD Active LISINOPRIL 40 MG TABS 1 tablet by mouth twice daily, for blood pressure 03/31 LISINOPRIL 30965440439 Active Jonel Hemphill MD Active BUPROPION HCL ER (SR) 150 MG [id number] 1 twice a day for depression BUPROPION HCL 06373928551 Active Jonel Hemphill MD Active MULTIVITAMINS CAPS 1 DAILY MULTIPLE VITAMIN 55453322675 Active Jonel Hemphill MD Active ZYLOPRIM 300 MG TAB 1 BY MOUTH DAILY ALLOPURINOL 79025963165 Active Jonel Hemphill MD Active HYDROCODONE-ACETAMINOPHEN 7.5-325 MG TABS 1 q 6 hrs prn HYDROCODONE-ACETAMINOPHEN 91751944239 No Longer Active Jonel Hemphill MD Active DILANTIN 100 MG CAPS 3 cap tid PHENYTOIN SODIUM EXTENDED 06893709662 No Longer Active Jonel Hemphill MD Active BUDEPRION SR 150 MG [id number] 1 bid BUPROPION HCL 34775823533 No Longer Active Jonel Hemphill MD Active ALLOPURINOL 300 MG TABS 1 qd ALLOPURINOL 29626107921 No Longer Active Jonel Hemphill MD Active COZAAR 100 MG TABS 1 qd LOSARTAN POTASSIUM 77778313351 No Longer Active Jonel Hemphill MD Active CVS VITAMIN C 500 MG TABS 1 po daily ASCORBIC ACID 04912252322 No Longer Active Jonel Hemphill MD Active MIRALAX POWD 17 gms in 4 oz water or juice daily POLYETHYLENE GLYCOL 3350 36117534229 No Longer Active Jonel Hemphill MD Active POTASSIUM CHLORIDE CHELA ER 20 MEQ CR-TABS 1 tab PO daily POTASSIUM CHLORIDE CHELA CR 98058762364 No Longer Active Jonel Hemphill MD Active AMBIEN 10 MG TAB 1 tab by mouth at bedtime as needed for sleep ZOLPIDEM TARTRATE 68373785366 No Longer Active Jonel Hemphill MD Active SULFAMETHOXAZOLE-TMP DS 800-160 MG TABS 1 TAB PO BID SULFAMETHOXAZOLE-TRIMETHOPRIM 54287860414 No Longer Active Jonel Hemphill MD Active NORCO 5-325 MG TABS 1-2 TAB Q 6 HRS PRN HYDROCODONE- ACETAMINOPHEN 00839958051 Active Jonel Hemphill MD Active LEVEMIR 100 UNIT/ML SOLN 5 units sub-q at bedtime INSULIN DETEMIR 31579637117 No Longer Active Tova Perez Active MOBIC 15 MG TABS 1 tab PO daily for arthritis pain MELOXICAM 84390426387 No Longer Active Tova Perez Active GLUCAGEN 1 MG SOLR INJECT 1MG IM IF BS LESS THAN 60 & RES. IS UNABLE TO SWALLOW GLUCAGON HCL (RDNA) 55944204930 No Longer Active Tova Perez Active CVS MILK OF MAGNESIA 1200 MG/15ML SUSP 30 ml daily for constipation MAGNESIUM HYDROXIDE 48304899637 No Longer Active Tova Perez Active IMDUR 120 MG [id number] 1 qd ISOSORBIDE MONONITRATE 85880164870 No Longer Active Tova Perez Active PHENYTOIN 50 MG CHEW 1 TAB PO BID PHENYTOIN 74668291535 Active Tova Perez Active MECLIZINE HCL 25 MG CHEW TAB 1 four times a day as needed for dizziness 02/21 MECLIZINE HCL 74102915024 Active Tova Perez Active NEURONTIN 400 MG CAPS Take one by mouth 3 times daily, morning, afternoon and evening.] GABAPENTIN 97447975575 No Longer Active Tova Perez Active ANTIVERT 25 MG TABS 1 q 6 hrs prn MECLIZINE HCL 43839877576 No Longer Active Jonel Hemphill MD Active CLONIDINE HCL 0.2 MG TABS 1 q 8 hrs as needed -greater than 160-htn CLONIDINE HCL 28158924697 No Longer Active Jonel Hemphill MD Active AMBIEN 10 MG TABS 1 q hs prn ZOLPIDEM TARTRATE 42290758973 No Longer Active Jonel Hemphill MD Active GNP THERAPEUTIC-M TABS 1 qd MULTIPLE VITAMINS- MINERALS 76753237867 No Longer Active Jonel Hemphill MD Active METOPROLOL TARTRATE 50 MG TABS 1 bid METOPROLOL TARTRATE 19699236299 No Longer Active Jonel Hemphill MD Active METFORMIN HCL 500 MG TABS 1 bod with food METFORMIN HCL 87034826844 No Longer Active Jonel Hemphill MD Active LISINOPRIL 40 MG TABS 1 qd LISINOPRIL 80933274379 No Longer Active Jonel Hemphill MD Active HYDROCHLOROTHIAZIDE 25 MG TABS 1 qd HYDROCHLOROTHIAZIDE 16398819277 No Longer Active Jonel Hemphill MD Active DURAGESIC-25 25 MCG/HR PT72 place 1 patch on the skin q72hrs for pain FENTANYL 31024598147 No Longer Active Jonel Hemphill MD Active FENTANYL 75 MCG/HR PT72 place 1 patch on skin q72hrs fr pain 2012 FENTANYL 06071339235 No Longer Active Jonel Hemphill MD Active LASIX 20 MG TABS 1 tab PO q morning FUROSEMIDE 61249473755 Active Jonel Hemphill MD Active FUROSEMIDE 40 MG TABS 1 q am FUROSEMIDE 41087992358 No Longer Active Jonel Hemphill MD Active HEPARIN (PORCINE) LOCK FLUSH 100 UNIT/ML SOLN Flush port a cath monthly every three week on with Heparin and NS HEPARIN LOCK FLUSH 01967466887 Active Jonel Hemphill MD Active FENTANYL 100 MCG/HR PT72 Apply every 3 days FENTANYL 78206737002 Active Jonel Hemphill MD Active FENTANYL 25 MCG/HR PT72 Apply to clean skin and change every 72 hours. 07/03 FENTANYL 48320104260 No Longer Active Jonel Hemphill MD Active FENTANYL 50 MCG/HR PT72 place 1 patch on skin q72 hours FENTANYL 88382817187 No Longer Active Mayco Shah APRN Active CELEXA 20 MG TABS Take 1 tablet 1x daily CITALOPRAM HYDROBROMIDE 81955302295 Active Jonel Hemphill MD Active DURAGESIC-12 12 MCG/HR PT72 APPLY PATCH TO SKIN AND CHANGE EVERY 72 HOURS, ROTATE SITES FENTANYL 45520699246 No Longer Active Fozia HERNANDEZ Active FUROSEMIDE 20 MG TABS 1 qd FUROSEMIDE 55588124995 No Longer Active Mahogany Milford Active ADULT ASPIRIN EC LOW STRENGTH 81 MG TBEC 1 qd ASPIRIN 56653513908 Active MARY Perez Active FUROSEMIDE 20 MG TABS 1 qd FUROSEMIDE 20 MG TABS 123417 FUROSEMIDE Inactive DURAGESIC-12 12 MCG/HR PT72 APPLY PATCH TO SKIN AND CHANGE EVERY 72 HOURS, ROTATE SITES DURAGESIC-12 12 MCG/HR PT72 860489 FENTANYL Inactive FENTANYL 50 MCG/HR PT72 place 1 patch on skin q72 hours FENTANYL 50 MCG/HR PT72 640000 FENTANYL Inactive FUROSEMIDE 40 MG TABS 1 q am FUROSEMIDE 40 MG TABS 225799 FUROSEMIDE Inactive FENTANYL 75 MCG/HR PT72 place 1 patch on skin q72hrs fr pain 2012 FENTANYL 75 MCG/HR PT72 034512 FENTANYL Inactive DURAGESIC-25 25 MCG/HR PT72 place 1 patch on the skin q72hrs for pain DURAGESIC-25 25 MCG/HR PT72 948295 FENTANYL Inactive HYDROCHLOROTHIAZIDE 25 MG TABS 1 qd HYDROCHLOROTHIAZIDE 25 MG TABS 300330 HYDROCHLOROTHIAZIDE Inactive LISINOPRIL 40 MG TABS 1 qd LISINOPRIL 40 MG TABS 782824 LISINOPRIL Inactive METFORMIN HCL 500 MG TABS 1 bod with food METFORMIN HCL 500 MG TABS 760471 METFORMIN HCL Inactive METOPROLOL TARTRATE 50 MG TABS 1 bid METOPROLOL TARTRATE 50 MG TABS 931341 METOPROLOL TARTRATE Inactive GNP THERAPEUTIC-M TABS 1 qd GNP THERAPEUTIC-M TABS MULTIPLE VITAMINS-MINERALS Inactive AMBIEN 10 MG TABS 1 q hs prn AMBIEN 10 MG TABS 308079 ZOLPIDEM TARTRATE Inactive CLONIDINE HCL 0.2 MG TABS 1 q 8 hrs as needed -greater than 160-htn CLONIDINE HCL 0.2 MG TABS 672044 CLONIDINE HCL Inactive ANTIVERT 25 MG TABS 1 q 6 hrs prn ANTIVERT 25 MG TABS MECLIZINE HCL Inactive NEURONTIN 400 MG CAPS Take one by mouth 3 times daily, morning, afternoon and evening.] NEURONTIN 400 MG CAPS 762364 GABAPENTIN Inactive IMDUR 120 MG [id number] 1 qd IMDUR 120 MG [id number] ISOSORBIDE MONONITRATE Inactive CVS MILK OF MAGNESIA [...] for arthritis pain MOBIC 15 MG TABS 222844 MELOXICAM Inactive LEVEMIR 100 UNIT/ML SOLN 5 units sub-q at bedtime LEVEMIR 100 UNIT/ML SOLN INSULIN DETEMIR Inactive SULFAMETHOXAZOLE-TMP DS 800-160 MG TABS 1 TAB PO BID SULFAMETHOXAZOLE-TMP DS 800-160 MG TABS 355205 SULFAMETHOXAZOLE-TRIMETHOPRIM Inactive AMBIEN 10 MG TAB 1 tab by mouth at bedtime as needed for sleep AMBIEN 10 MG TAB 746404 ZOLPIDEM TARTRATE Inactive POTASSIUM CHLORIDE CHELA ER 20 MEQ CR-TABS 1 tab PO daily POTASSIUM CHLORIDE CHELA ER 20 MEQ CR-TABS POTASSIUM CHLORIDE CHELA CR Inactive MIRALAX POWD 17 gms in 4 oz water or juice daily MIRALAX POWD 649174 POLYETHYLENE GLYCOL 3350 Inactive CVS VITAMIN C 500 MG TABS 1 po daily CVS VITAMIN C 500 MG TABS 675719 ASCORBIC ACID Inactive COZAAR 100 MG TABS 1 qd COZAAR 100 MG TABS 614719 LOSARTAN POTASSIUM Inactive ALLOPURINOL 300 MG TABS 1 qd ALLOPURINOL 300 MG TABS 018163 ALLOPURINOL Inactive BUDEPRION SR 150 MG [id number] 1 bid BUDEPRION SR 150 MG [id number] BUPROPION HCL Inactive DILANTIN 100 MG CAPS 3 cap tid DILANTIN 100 MG CAPS 530421 PHENYTOIN SODIUM EXTENDED Inactive HYDROCODONE-ACETAMINOPHEN 7.5-325 MG TABS 1 q 6 hrs prn HYDROCODONE-ACETAMINOPHEN 7.5-325 MG TABS 373857 HYDROCODONE- ACETAMINOPHEN Inactive GABAPENTIN 300 MG CAPS 1 CAP PO TID GABAPENTIN 300 MG CAPS 220754 GABAPENTIN Inactive FENTANYL 25 MCG/HR PT72 Apply to clean skin and change every 72 hours. 07/03 FENTANYL 25 MCG/HR PT72 892439 FENTANYL Inactive Advance Directives Directive Description Start [...] E&M - 3141-9 395 [lb_av] Weight Measured Diagnostic Results Date Name [...] 4.3-6.0 Encounters Code Encounter Date Provider Facility CPT-95993 Level 3 Est. Patient 18:04:07 CDT Jonel Hemphill MD [facility] CPT-63790 Level 3 Est. Patient 17:18:03 CDT Jonel Hemphill MD [facility] CPT-10608 Level 3 Est. Patient 21:58:03 SCHOOL NURSE Jonel Hemphill MD [facility] CPT-81183 Level 4 Est. Patient 18:03:14 CDT Jonel Hemphill MD [facility]-48499 Level 4 Est. Patient 13:24:53 CDT Jonel Hemphill MD [facility]-03340 Level 4 Est. Patient 09:15:44 CDT Jonel Hemphill MD [facility]-15103 Level 4 Est. Patient 19:16:01 CDT Jonel Hemphill MD [facility] CPT-24734 Level 4 Est. Patient 11:25:16 CDT Jonel Hemphill MD [facility] CPT-30104 Level 4 Est. Patient 09:00:40 CDT Jonel Hemphill MD [facility]-59861 Level 4 Est. Patient 14:53:58 CDT Jonel Hemphill MD [facility] CPT-70758 Level 4 Est. Patient 22:59:01 CDT Jonel Hemphill MD [facility]-08314 Level 4 Est. Patient 09:29:57 CDT Jonel Hemphill MD [facility]-29693 Level 4 Est. Patient 12:35:53 SCHOOL NURSE Jonel Hemphill MD [facility]-88998 Level 4 Est. Patient 22:36:09 SCHOOL NURSE Jonel Hemphill MD [facility]-03641 Level 2 Est. Patient 15:14:15 SCHOOL NURSE Mayco Shah APRN [facility] CPT-95702 Level 4 Est. Patient 10:36:22 SCHOOL NURSE Jonel Hemphill MD [facility] CPT-58729 Level 4 Est. Patient 22:01:13 SCHOOL NURSE Jonel Hemphill MD [facility]-69533 Level 3 Est. Patient 21:50:37 SCHOOL NURSE Jonel Hemphill MD [facility] CPT-68818 Level 4 Est. Patient 15:02:43 CDT Rubin Pierre MD [facility] CPT-60153 Level 4 Est. Patient 14:27:35 CDT Jonel Hemphill MD [facility]-71562 Level 4 Est. Patient 12:41:17 CDT Jonel Hemphill MD [facility]-07109 Level 4 Est. Patient 16:18:55 CDT Jonel Hemphill MD [facility]-01607 Level 4 Est. Patient 17:58:05 CDT Jonel Hemphill MD [facility]-57605 Level 4 Est. Patient 22:10:06 CDT Jonel Hemphill MD [facility]-65926 Level 4 Est. Patient 13:22:09 CDT Jonel Hemphill MD [facility]-25091 Level 4 Est. Patient 22:52:17 SCHOOL NURSE Jonel Hemphill MD [facility]-21856 Level 3 Est. Patient 22:34:10 SCHOOL NURSE Jonel Hemphill MD [facility]-89916 Level 4 Est. Patient 07:49:20 SCHOOL NURSE Jonel Hemphill MD [facility] CPT-06248 Level 3 Est. Patient 08:28:27 SCHOOL NURSE Jonel Hemphill MD [facility] Procedures Code Procedure Name Date Entry Date Standard Description CPT-95620 Level 3 Senior Care 19:38:15 SCHOOL NURSE CPT-83678 Level 3 Senior Care 19:28:48 SCHOOL NURSE CPT-82853 Level 3 Senior Care 18:02:20 SCHOOL NURSE CPT-65352 Level 3 Senior Care 15:02:14 SCHOOL NURSE CPT-29060 Level 3 Senior Care 12:25:37 CDT CPT-50348 Level 3 Senior Care 12:48:39 CDT CPT-22875 Level 3 Senior Care 17:39:14 CDT CPT-94019 Level 3 Senior Care 13:32:58 CDT CPT-84232 Level 3 Senior Care 17:43:43 CDT CPT-74826 Level 3 Senior Care 12:03:33 SCHOOL NURSE CPT-49347 Level 3 Senior Care 18:47:28 SCHOOL NURSE CPT-25190 Level 3 Senior Care 17:35:26 SCHOOL NURSE CPT-17776 Level 3 Senior Care 18:44:49 SCHOOL NURSE CPT-39037 Level 3 Senior Care 18:17:33 CDT CPT-53366 Level 3 Senior Care 09:25:33 CDT CPT-25631 Level 3 Senior Care 19:11:57 CDT CPT-96137 Level 3 Senior Care 09:25:52 CDT CPT-72574 Level 3 Senior Care 14:23:59 CDT CPT-22764 Level 3 Senior Care 12:09:43 CDT CPT-57382 Level 3 Senior Care 09:37:40 CDT CPT-32232 Level 3 Senior Care 18:23:02 CDT CPT-77209 Level 3 Senior Care 14:09:06 CDT CPT-01479 Level 3 Senior Care 12:43:27 SCHOOL NURSE CPT-06728 Postop F/U Visit 14:10:15 SCHOOL NURSE CPT-27659 Sono Soft Tissue Head and Neck 17:07:14 SCHOOL NURSE CPT-00100 Level 3 Senior Care 16:14:37 SCHOOL NURSE CPT-72418 Port a cath flush 11:47:42 CDT CPT-60472 Port a cath flush 08:29:49 CDT CPT-OV Office Visit 14:27:58 SCHOOL NURSE
--- OUTSIDE RECORDS SUMMARY | 2016-08-07 13:10 | XMS REPORT ---
Author Author [facility] [employer] [facility] Medical Staff Organization [facility] Address [address], [place] [id number] Phone [phone] Care Team Providers Care Lyft Driver Name Role Phone FRANKO PRIETO MD PP [phone] Summary purpose TRANSITION OF CARE AUTO GENERATION Chief Complaint and Reason for Visit Admit Diagnosis 1 EDEMA Problem list No authorized problems tracked for [...] diagnostic tests and/or laboratory data RESULTS Chemistry [id number]:30:00 Result Normal Range Units Sodium 143 134-145 [...] 10-20 Estimated GFR 529 >=60 mL/min/1.7 Hematology :30:00 Result Normal Range Units WBC 6.9 4.8-10.8 103/uL RBC L 4.6 4.7-6.1 106/uL HGB 14.4 13.0-18.0 g/dl HCT 44.3 41.9-52.0 % MCV H 96.9 80-94 FL MCH H 31.5 27-31 pg MCHC L 32.5 33-37 g/dl RDW 14.6 11.5-15.5 % PLT L 113 130-400 103/uL MPV H 11.7 7.3-10.4 FL Neutro % 62.9 40-70 % Lymph % 28.4 20-40 % Craig % 7.1 0-10.0 % Eos % 0.9 0-7.0 % Baso % 0.3 0-2 % Neutro # 4.3 1.5-7.5 103/uL Lymph # 2.0 0.9-4.0 103/uL Craig # 0.5 0-0.8 103/uL Eos # 0.1 0-0.6 103/uL Baso # 0.0 0-0.1 103/uL Radiology Results [id number]:30:00 Result Normal Range Units MPV H 11.7 7.3-10.4 FL History of procedures Procedure Code Code Type Description Date Performed Performing Physician [id number] CPT-4 COMPREHEN METABOLIC PANEL 11-03-2014 FRANKO PRIETO 73161 CPT-4 COMPLETE CBC W/AUTO DIFF WBC 11-03-2014 FRANKO PRIETO Functional status No functional or [...]
--- OUTSIDE RECORDS SUMMARY | 2016-08-07 13:12 | XMS REPORT | Clinical Summary ---
Author Author Admin, KARLAE Organization [facility] Address Unknown 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, SHUTTLE THREADER V58.69 Resolved Jonel Hemphill MD Long-term (current) [...] Coronary atherosclerosis of unspecified type of vessel, [place] or graft FH DIABETES V18.0 Resolved [...] Coronary atherosclerosis of unspecified type of vessel, [place] or graft CONSTIPATION 564.00 Resolved Jonel [...] other specified site; multiple sites 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 USE, FDC ICD-V58.69 Inactive Jonel Hemphill MD DIABETES, TYPE [...] TAB Q 6 HRS PRN HYDROCODONE- ACETAMINOPHEN 53747585591 Active Jonel Hemphill MD Active LEVEMIR 100 UNIT/ML SOLN 5 units sub-q at bedtime INSULIN DETEMIR 94569837861 No Longer Active Tova Perez Active MOBIC 15 MG TABS 1 tab PO daily for arthritis pain MELOXICAM 00125173089 No Longer Active Tova Perez Active GLUCAGEN 1 MG SOLR INJECT 1MG IM IF BS LESS THAN 60 & RES. IS UNABLE TO SWALLOW GLUCAGON HCL (RDNA) 54098945969 No Longer Active Tova Perez Active [facility] MILK OF MAGNESIA 1200 MG/15ML SUSP 30 ml daily for constipation MAGNESIUM HYDROXIDE 82487380067 No Longer Active Tova Perez Active IMDUR 120 MG [id number] 1 qd ISOSORBIDE MONONITRATE 26178063307 No Longer Active Tova Perez Active METFORMIN HCL 500 MG TABS 1 tablet by mouth twice daily METFORMIN HCL 57166316804 Active Tova Perez Active SULFAMETHOXAZOLE-TMP DS 800-160 MG TABS 1 TAB PO BID SULFAMETHOXAZOLE-TRIMETHOPRIM 26629688600 Active Tova Perez Active PHENYTOIN 50 MG CHEW 1 TAB PO BID PHENYTOIN 98727016047 Active Tova Perez Active MECLIZINE HCL 25 MG CHEW TAB 1 four times a day as needed for dizziness 02/21 MECLIZINE HCL 34633435929 Active Tova Perez Active GABAPENTIN 300 MG CAPS 1 CAP PO TID GABAPENTIN 21721276012 Active Tova Perez Active NEURONTIN 400 MG CAPS Take one by mouth 3 times daily, morning, afternoon and evening.] GABAPENTIN 68212384169 No Longer Active Tova Perez Active AMBIEN 10 MG TAB 1 tab by mouth at bedtime as needed for sleep ZOLPIDEM TARTRATE 79057518481 Active Jonel Hemphill MD Active POTASSIUM CHLORIDE CHELA ER 20 MEQ CR-TABS 1 tab PO daily POTASSIUM CHLORIDE CHELA CR 92534022990 Active Jonel Hemphill MD Active ANTIVERT 25 MG TABS 1 q 6 hrs prn MECLIZINE HCL 03346410918 No Longer Active Jonel Hemphill MD Active CLONIDINE HCL 0.2 MG TABS 1 q 8 hrs as needed -greater than 160-htn CLONIDINE HCL 36732552193 No Longer Active Jonel Hemphill MD Active AMBIEN 10 MG TABS 1 q hs prn ZOLPIDEM TARTRATE 15839490018 No Longer Active Jonel Hemphill MD Active GNP THERAPEUTIC-M TABS 1 qd MULTIPLE VITAMINS- MINERALS 09622082917 No Longer Active Jonel Hemphill MD Active METOPROLOL TARTRATE 50 MG TABS 1 bid METOPROLOL TARTRATE 65767986060 No Longer Active Jonel Hemphill MD Active METFORMIN HCL 500 MG TABS 1 bod with food METFORMIN HCL 48468572348 No Longer Active Jonel Hemphill MD Active LISINOPRIL 40 MG TABS 1 qd LISINOPRIL 46098459984 No Longer Active Jonel Hemphill MD Active HYDROCHLOROTHIAZIDE 25 MG TABS 1 qd HYDROCHLOROTHIAZIDE 02041812519 No Longer Active Jonel Hemphill MD Active DURAGESIC-25 25 MCG/HR PT72 place 1 patch on the skin q72hrs for pain FENTANYL 01158638399 No Longer Active Jonel Hemphill MD Active FENTANYL 75 MCG/HR PT72 place 1 patch on skin q72hrs fr pain 2012 FENTANYL 52394361842 No Longer Active Jonel Hemphill MD Active LASIX 20 MG TABS 1 tab PO q morning FUROSEMIDE 70191767548 Active Jonel Hemphill MD Active FUROSEMIDE 40 MG TABS 1 q am FUROSEMIDE 13560277066 No Longer Active Jonel Hemphill MD Active HEPARIN (PORCINE) LOCK FLUSH 100 UNIT/ML SOLN Flush port a cath monthly every three week on with Heparin and NS HEPARIN LOCK FLUSH 83684744694 Active Jonel Hemphill MD Active FENTANYL 100 MCG/HR PT72 Apply every 3 days FENTANYL 90638520017 Active Jonel Hemphill MD Active FENTANYL 25 MCG/HR PT72 Apply to clean skin and change every 72 hours. 07/03 FENTANYL 51248403295 No Longer Active Jonel Hemphill MD Active FENTANYL 50 MCG/HR PT72 place 1 patch on skin q72 hours FENTANYL 81706311258 No Longer Active Mayco Shah APRN Active HYDROCODONE-ACETAMINOPHEN 7.5-325 MG TABS 1 q 6 hrs prn HYDROCODONE-ACETAMINOPHEN 13617689917 Active Jonel Hemphill MD Active ATIVAN 0.5 MG TABS Take 1 tablet 2x daily LORAZEPAM 02283320336 Active Jonel Hemphill MD Active CELEXA 20 MG TABS Take 1 tablet 1x daily CITALOPRAM HYDROBROMIDE 63984734407 Active Jonel Hemphill MD Active MIRALAX POWD 17 gms in 4 oz water or juice daily POLYETHYLENE GLYCOL 3350 06277617800 Active Rubin Pierre MD Active DURAGESIC-12 12 MCG/HR PT72 APPLY PATCH TO SKIN AND CHANGE EVERY 72 HOURS, ROTATE SITES FENTANYL 27757148771 No Longer Active Fozia HERNANDEZ Active [facility] VITAMIN C 500 MG TABS 1 po daily ASCORBIC ACID 87702220610 Active Mahogany [place] Active FUROSEMIDE 20 MG TABS 1 qd FUROSEMIDE 36595557521 No Longer Active Mahogany [place] Active ADULT ASPIRIN EC LOW STRENGTH 81 MG TBEC 1 qd ASPIRIN 66826106164 Active MARY Perez Active DILANTIN 100 MG CAPS 3 cap tid PHENYTOIN SODIUM EXTENDED 31436116717 Active MARY Perez Active BUDEPRION SR 150 MG [id number] 1 bid BUPROPION HCL 89195923847 Active MARY Perez Active ALLOPURINOL 300 MG TABS 1 qd ALLOPURINOL 59988663298 Active MARY Perez Active COZAAR 100 MG TABS 1 qd LOSARTAN POTASSIUM 14396433224 Active MARY Perez Active FUROSEMIDE 20 MG TABS 1 qd FUROSEMIDE 20 MG TABS 621602 FUROSEMIDE Inactive DURAGESIC-12 12 MCG/HR PT72 APPLY PATCH TO SKIN AND CHANGE EVERY 72 HOURS, ROTATE SITES DURAGESIC-12 12 MCG/HR PT72 308000 FENTANYL Inactive FENTANYL 50 MCG/HR PT72 place 1 patch on skin q72 hours FENTANYL 50 MCG/HR PT72 985126 FENTANYL Inactive FUROSEMIDE 40 MG TABS 1 q am FUROSEMIDE 40 MG TABS 313635 FUROSEMIDE Inactive FENTANYL 75 MCG/HR PT72 place 1 patch on skin q72hrs fr pain 2012 FENTANYL 75 MCG/HR PT72 787444 FENTANYL Inactive DURAGESIC-25 25 MCG/HR PT72 place 1 patch on the skin q72hrs for pain DURAGESIC-25 25 MCG/HR PT72 710300 FENTANYL Inactive HYDROCHLOROTHIAZIDE 25 MG TABS 1 qd HYDROCHLOROTHIAZIDE 25 MG TABS 132495 HYDROCHLOROTHIAZIDE Inactive LISINOPRIL 40 MG TABS 1 qd LISINOPRIL 40 MG TABS 534691 LISINOPRIL Inactive METFORMIN HCL 500 MG TABS 1 bod with food METFORMIN HCL 500 MG TABS 545046 METFORMIN HCL Inactive METOPROLOL TARTRATE 50 MG TABS 1 bid METOPROLOL TARTRATE 50 MG TABS 972828 METOPROLOL TARTRATE Inactive GNP THERAPEUTIC-M TABS 1 qd GNP THERAPEUTIC-M TABS MULTIPLE VITAMINS-MINERALS Inactive AMBIEN 10 MG TABS 1 q hs prn AMBIEN 10 MG TABS 535392 ZOLPIDEM TARTRATE Inactive CLONIDINE HCL 0.2 MG TABS 1 q 8 hrs as needed -greater than 160-htn CLONIDINE HCL 0.2 MG TABS 237016 CLONIDINE HCL Inactive ANTIVERT 25 MG TABS 1 q 6 hrs prn ANTIVERT 25 MG TABS MECLIZINE HCL Inactive NEURONTIN 400 MG CAPS Take one by mouth 3 times daily, morning, afternoon and evening.] NEURONTIN 400 MG CAPS 494972 GABAPENTIN Inactive IMDUR 120 MG [id number] 1 qd IMDUR 120 MG [id number] ISOSORBIDE MONONITRATE Inactive [facility] MILK OF MAGNESIA [...] for arthritis pain MOBIC 15 MG TABS 248615 MELOXICAM Inactive LEVEMIR 100 UNIT/ML SOLN 5 units sub-q at bedtime LEVEMIR 100 UNIT/ML SOLN INSULIN DETEMIR Inactive FENTANYL 25 MCG/HR PT72 Apply to clean skin and change every 72 hours. 07/03 FENTANYL 25 MCG/HR PT72 720890 FENTANYL Inactive Advance Directives Directive Description Start Date ADVANCE DIRECTIVE Immunizations Vaccine Administration Date Value Standard Description influenza immunization (Flu Vax) has been administered Influenza - Unspecified Formulation [CVX88] influenza virus vaccine, unspecified formulation pneumococcal immunization administered Pneumovax 23 [CVX33] pneumococcal polysaccharide vaccine, 23 valent Vital Signs Date Name Value Unit Range Description blood pressure, diastolic 87 mm[Hg] BP augustin [...] Acid - Chemistry sodium, serum 141 mmol/L 859-603 8803/05/09 potassium, serum 3.9 mmol/L 3.5-5.2 chloride, serum [...] dipstick Negative Negative sodium, serum 140 mmol/L 761-599 3103/02/18 potassium, serum 3.8 mmol/L 3.5-5.2 chloride, serum [...] Negative Encounters Code Encounter Date Provider Facility CPT-47124 Level 3 Est. Patient 18:04:07 CDT Jonel Hemphill MD [facility] CPT-05326 Level 3 Est. Patient 17:18:03 CDT Jonel Hemphill MD [facility] CPT-29816 Level 3 Est. Patient 21:58:03 DEHYDROGENATION SUPERVISOR Jonel Hemphill MD [facility] CPT-34790 Level 4 Est. Patient 18:03:14 CDT Jonel Yeager [facility]-33354 Level 4 Est. Patient 13:24:53 CDT Jonel Yeager [facility]-37072 Level 4 Est. Patient 09:15:44 CDT Jonel Yeager [facility]-37841 Level 4 Est. Patient 19:16:01 CDT Jonel Yeager [facility] CPT-10388 Level 4 Est. Patient 11:25:16 CDT Jonel Hemphill MD [facility] CPT-99092 Level 4 Est. Patient 09:00:40 CDT [facility] CPT-44499 Level 4 Est. Patient 14:53:58 CDT Jonel Hemphill MD [facility] CPT-55316 Level 4 Est. Patient 22:59:01 CDT Jonel Hemphill MD [facility]-29997 Level 4 Est. Patient 09:29:57 CDT Jonel Hemphill MD [facility]-30112 Level 4 Est. Patient 12:35:53 DEHYDROGENATION SUPERVISOR Jonel Hemphill MD [facility]-84608 Level 4 Est. Patient 22:36:09 DEHYDROGENATION SUPERVISOR Jonel Hemphill MD [facility]-89807 Level 2 Est. Patient 15:14:15 DEHYDROGENATION SUPERVISOR Mayco Shah APRN [facility] CPT-75531 Level 4 Est. Patient 10:36:22 DEHYDROGENATION SUPERVISOR Jonel Hemphill MD [facility] CPT-99522 Level 4 Est. Patient 22:01:13 DEHYDROGENATION SUPERVISOR Jonel Hemphill MD [facility]-97490 Level 3 Est. Patient 21:50:37 DEHYDROGENATION SUPERVISOR Jonel Hemphill MD [facility] CPT-08535 Level 4 Est. Patient 15:02:43 CDT Rubin Pierre MD [facility] CPT-19924 Level 4 Est. Patient 14:27:35 CDT Jonel Hemphlil MD [facility]-84720 Level 4 Est. Patient 12:41:17 CDT Jonel Hemphill MD [facility]-53371 Level 4 Est. Patient 16:18:55 CDT Jonel Hemphill MD [facility]-96849 Level 4 Est. Patient 17:58:05 CDT Jonel Hemphill MD [facility]-56010 Level 4 Est. Patient 22:10:06 CDT Jonel Hemphill MD [facility] CPT-86110 Level 4 Est. Patient 13:22:09 CDT Jonel Hemphill MD [facility] CPT-27767 Level 4 Est. Patient 22:52:17 DEHYDROGENATION SUPERVISOR Jonel Hemphill MD [facility] CPT-55448 Level 3 Est. Patient 22:34:10 DEHYDROGENATION SUPERVISOR Jonel Hemphill MD [facility] CPT-80835 Level 4 Est. Patient 07:49:20 DEHYDROGENATION SUPERVISOR Jonel Hemphill MD [facility] Skilled CPT-37082 Level 3 Est. Patient 08:28:27 DEHYDROGENATION SUPERVISOR Jonel Hemphill MD [facility] Procedures Code Procedure Name Date Entry Date Standard Description CPT-56559 Level 3 Group Home 09:25:33 CDT CPT-14266 Level 3 Group Home 19:11:57 CDT CPT-08089 Level 3 Group Home 09:25:52 CDT CPT-39560 Level 3 Group Home 14:23:59 CDT CPT-73579 Level 3 Group Home 12:09:43 CDT CPT-71060 Level 3 Group Home 09:37:40 CDT CPT-94147 Level 3 Group Home 18:23:02 CDT CPT-47266 Level 3 Group Home 14:09:06 CDT CPT-57000 Level 3 Group Home 12:43:27 DEHYDROGENATION SUPERVISOR CPT-12543 Postop F/U Visit 14:10:15 DEHYDROGENATION SUPERVISOR CPT-25148 [facility] 17:07:14 DEHYDROGENATION SUPERVISOR CPT-07266 Level 3 Group Home 16:14:37 DEHYDROGENATION SUPERVISOR CPT-68700 Port a cath flush 11:47:42 CDT CPT-29593 Port a cath flush 08:29:49 CDT CPT-OV Office Visit 14:27:58 DEHYDROGENATION SUPERVISOR
--- OUTSIDE RECORDS SUMMARY | 2016-08-07 13:13 | XMS REPORT | Clinical Summary ---
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 Resolved Jonel Hemphill MD Long-term [...] Coronary atherosclerosis of unspecified type of vessel, alatna or graft FH DIABETES V18.0 Resolved Jonel [...] Coronary atherosclerosis of unspecified type of vessel, alatna or graft CONSTIPATION 564.00 Resolved Jonel Hemphill [...] Hemphill MD Spasm of muscle 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 USE, SNF ICD-V58.69 Inactive Jonel Hemphill MD DIABETES, TYPE [...] Jonel Hemphill MD Eye pain ICD-379.91 Inactive Joenl Hemphill MD Fever ICD-780.60 Inactive Jonel Hemphill [...] skin and change every 72 hours FENTANYL 85297204094 Active Jonel Hemphill MD Active MIRALAX POWD 17 gms in 4 oz water or juice daily POLYETHYLENE GLYCOL 3350 28655893974 Active Jonel Hemphill MD Active [facility]S MELATONIN 3 MG ORAL TABS 2 tabs at hs MELATONIN 47071641061 Active Jonel Hemphill MD Active MAGNESIUM GLUCONATE 500 MG ORAL TABS 1 tab twice daily MAGNESIUM GLUCONATE 13048467560 Active Jonel Hemphill MD Active OMEPRAZOLE 20 MG CPDR 1 tablet by mouth daily OMEPRAZOLE 88750097281 Active Jonel Hemphill MD Active DIGOXIN 125 MCG ORAL TABS 1 daily DIGOXIN 04744026687 Active Jonel Hemphill MD Active DILTIAZEM CD 240 MG ORAL [id number] 1 daily DILTIAZEM HCL COATED BEADS 43337654545 Active Jonel Hemphill MD Active NOVOLOG 100 UNIT/ML SC SOLN 70-140=0U 141-180=2 U 181-220=4U 221-260=6U 261- 300=8U 301-340=10U 812=120=77K 381-400=14U INSULIN ASPART 00759959773 Active Jonel Hemphill MD Active ACETAMINOPHEN 325 MG ORAL TABS 1 tab by mouth every 4 hours as needed ACETAMINOPHEN 96040263319 Active Jonel Hemphill MD Active FENTANYL 12 MCG/HR PT72 Apply to clean, dry skin and change every 72 hours FENTANYL 45719621804 No Longer Active Jonel Hemphill MD Active PHENYTOIN 50 MG CHEW 1 TAB PO BID PHENYTOIN 34788534124 No Longer Active Jonel Hemphill MD Active NORCO 5-325 MG TABS 1-2 TAB Q 6 HRS PRN HYDROCODONE- ACETAMINOPHEN 10283187047 No Longer Active Jonel Hemphill MD Active MULTIVITAMINS CAPS 1 DAILY MULTIPLE VITAMIN 12197165597 No Longer Active Jonel Hemphill MD Active BUPROPION HCL ER (SR) 150 MG [id number] 1 twice a day for depression BUPROPION HCL 22432784622 No Longer Active Jonel Hemphill MD Active LISINOPRIL 20 MG TABS 1 tablet by mouth daily LISINOPRIL 10648728884 Active Jonel Hemphill MD Active ULORIC 40 MG ORAL TABS 1 daily for gout. FEBUXOSTAT 71110202605 No Longer Active Jonel Hemphill MD Active CELEXA 20 MG TABS 1 tablet by mouth daily CITALOPRAM HYDROBROMIDE 55091906380 Active Marleni Raida Active ZOFRAN 4 MG TABS 1 po q6hr PRN Nausea ONDANSETRON HCL 90925626086 Active Jonel Hemphill MD Active XARELTO 20 MG ORAL TABS 1 daily RIVAROXABAN 32162721584 Active Jonel Hemphill MD Active JANUVIA 100 MG ORAL TABS 2 tabs daily SITAGLIPTIN PHOSPHATE 68136840301 Active Jonel Hemphill MD Active CELEXA 20 MG TABS Take 1 tablet 1x daily CITALOPRAM HYDROBROMIDE 10544897263 No Longer Active Jonel Hemphill MD Active ATIVAN 0.5 MG TABS Take 1 tablet 2x daily PRN LORAZEPAM 51306326459 No Longer Active Jonel Hemphill MD Active FUROSEMIDE 80 MG ORAL TABS 1 daily FUROSEMIDE 99415807312 Active Jonel Hemphill MD Active MECLIZINE HCL 25 MG CHEW TAB 1 four times a day as needed for dizziness 02/21 MECLIZINE HCL 15537705620 No Longer Active Jonel Hemphill MD Active ZYLOPRIM 300 MG TAB 1 BY MOUTH DAILY ALLOPURINOL 38752568233 No Longer Active Jonel Hemphill MD Active METOPROLOL TARTRATE 50 MG ORAL TABS 1 TAB BY MOUTH TWICE DAILY METOPROLOL TARTRATE 76416364389 No Longer Active Jonel Hemphill MD Active GABAPENTIN 400 MG ORAL CAPS 1 TAB BY MOUTH THREE TIMES DAILY 2015 GABAPENTIN 54718660013 No Longer Active Jonel Hemphill MD Active HYDROCODONE-ACETAMINOPHEN 7.5-325 MG TABS 1 TAB PO Q 6 HRS PRN HYDROCODONE-ACETAMINOPHEN 73150840939 Active Jonel Hemphill MD Active METFORMIN HCL 1000 MG TABS 1 tablet by mouth twice daily METFORMIN HCL 72909432946 Active Marleni Romero Active KLOR-CON 20 MEQ ORAL PACK 1 BY MOUTH DAILY POTASSIUM CHLORIDE 43680628619 Active Marleni Romero Active A+D FIRST AID EXT OINT APPLY OINTMENT AND RUFINO WRAPS TO LOWER EXTEREMETIES DAILY SKIN PROTECTANTS, MISC. 26497635858 Active Jonel Hemphill MD Active NYSTATIN 498872 UNIT/GM EXT OINT APPLY PRN TID TO GAULDING/RASH IN ABDOMINAL FOLDS NYSTATIN 45675896715 Active Jonel Hemphill MD Active GABAPENTIN 300 MG CAPS 1 CAP PO TID GABAPENTIN 93399203856 No Longer Active Jonel Hemphill MD Active DILANTIN 100 MG ORAL CAPS 1 THREE TIMES DAILY FOR SEIZURES PHENYTOIN SODIUM EXTENDED 96677762724 Active Marleni Romero Active CPAP APPLY AT HS CPAP Active Jonel Hemphill MD Active HYDROCODONE-ACETAMINOPHEN 7.5-325 MG TABS 1 q 6 hrs prn HYDROCODONE-ACETAMINOPHEN 47016819361 No Longer Active Jonel Hemphill MD Active DILANTIN 100 MG CAPS 3 cap tid PHENYTOIN SODIUM EXTENDED 62951569650 No Longer Active Jonel Hemphill MD Active BUDEPRION SR 150 MG [id number] 1 bid BUPROPION HCL 77329936518 No Longer Active Jonel Hemphill MD Active ALLOPURINOL 300 MG TABS 1 qd ALLOPURINOL 41752466127 No Longer Active Jonel Hemphill MD Active COZAAR 100 MG TABS 1 qd LOSARTAN POTASSIUM 62679000222 No Longer Active Jonel Hemphill MD Active CVS VITAMIN C 500 MG TABS 1 po daily ASCORBIC ACID 02454802590 No Longer Active Jonel Hemphill MD Active MIRALAX POWD 17 gms in 4 oz water or juice daily POLYETHYLENE GLYCOL 3350 92086150515 No Longer Active Jonel Hemphill MD Active POTASSIUM CHLORIDE CHELA ER 20 MEQ CR-TABS 1 tab PO daily POTASSIUM CHLORIDE CHELA CR 03027147430 No Longer Active Jonel Hemphill MD Active AMBIEN 10 MG TAB 1 tab by mouth at bedtime as needed for sleep ZOLPIDEM TARTRATE 79075226930 No Longer Active Jonel Hemphill MD Active SULFAMETHOXAZOLE-TMP DS 800-160 MG TABS 1 TAB PO BID SULFAMETHOXAZOLE-TRIMETHOPRIM 39773660909 No Longer Active Jonel Hemphill MD Active LEVEMIR 100 UNIT/ML SOLN 5 units sub-q at bedtime INSULIN DETEMIR 70594368299 No Longer Active Tova Perez Active MOBIC 15 MG TABS 1 tab PO daily for arthritis pain MELOXICAM 70814765811 No Longer Active Tova Perez Active GLUCAGEN 1 MG SOLR INJECT 1MG IM IF BS LESS THAN 60 & RES. IS UNABLE TO SWALLOW GLUCAGON HCL (RDNA) 18730675474 No Longer Active Tova Perez Active CVS MILK OF MAGNESIA 1200 MG/15ML SUSP 30 ml daily for constipation MAGNESIUM HYDROXIDE 55347851353 No Longer Active Tova Perez Active IMDUR 120 MG [id number] 1 qd ISOSORBIDE MONONITRATE 75886404443 No Longer Active Tova Perez Active NEURONTIN 400 MG CAPS Take one by mouth 3 times daily, morning, afternoon and evening.] GABAPENTIN 52290691681 No Longer Active Tova Perez Active ANTIVERT 25 MG TABS 1 q 6 hrs prn MECLIZINE HCL 71180439747 No Longer Active Jonel Hemphill MD Active CLONIDINE HCL 0.2 MG TABS 1 q 8 hrs as needed -greater than 160-htn CLONIDINE HCL 89023349317 No Longer Active Jonel Hemphill MD Active AMBIEN 10 MG TABS 1 q hs prn ZOLPIDEM TARTRATE 20778592329 No Longer Active Jonel Hemphill MD Active GNP THERAPEUTIC-M TABS 1 qd MULTIPLE VITAMINS- MINERALS 66472362574 No Longer Active Jonel Hemphill MD Active METOPROLOL TARTRATE 50 MG TABS 1 bid METOPROLOL TARTRATE 71260101807 No Longer Active Jonel Hemphill MD Active METFORMIN HCL 500 MG TABS 1 bod with food METFORMIN HCL 10995309853 No Longer Active Jonel Hemphill MD Active LISINOPRIL 40 MG TABS 1 qd LISINOPRIL 02091169045 No Longer Active Jonel Hemphill MD Active HYDROCHLOROTHIAZIDE 25 MG TABS 1 qd HYDROCHLOROTHIAZIDE 50327060655 No Longer Active Jonel Hemphill MD Active DURAGESIC-25 25 MCG/HR PT72 place 1 patch on the skin q72hrs for pain FENTANYL 60497849974 No Longer Active Jonel Hemphill MD Active FENTANYL 75 MCG/HR PT72 place 1 patch on skin q72hrs fr pain 2012 FENTANYL 83005678822 No Longer Active Jonel Hemphill MD Active FUROSEMIDE 40 MG TABS 1 q am FUROSEMIDE 43499763667 No Longer Active Jonel Hemphill MD Active HEPARIN (PORCINE) LOCK FLUSH 100 UNIT/ML SOLN Flush port a cath monthly every three week on with Heparin and NS HEPARIN LOCK FLUSH 50952157572 Active Jonel Hemphill MD Active FENTANYL 100 MCG/HR PT72 Apply every 3 days FENTANYL 61455444206 Active Jonel Hemphill MD Active FENTANYL 25 MCG/HR PT72 Apply to clean skin and change every 72 hours. 07/03 FENTANYL 48194966728 No Longer Active Jonel Hemphill MD Active FENTANYL 50 MCG/HR PT72 place 1 patch on skin q72 hours FENTANYL 47113465952 No Longer Active Mayco Shah APRN Active DURAGESIC-12 12 MCG/HR PT72 APPLY PATCH TO SKIN AND CHANGE EVERY 72 HOURS, ROTATE SITES FENTANYL 10059744566 No Longer Active Fozia HERNANDEZ Active FUROSEMIDE 20 MG TABS 1 qd FUROSEMIDE 58998279345 No Longer Active [place] Active ADULT ASPIRIN EC LOW STRENGTH 81 MG TBEC 1 qd ASPIRIN 38996234790 Active MARY Perez Active FUROSEMIDE 20 MG TABS 1 qd FUROSEMIDE 20 MG TABS 174999 FUROSEMIDE Inactive DURAGESIC-12 12 MCG/HR PT72 APPLY PATCH TO SKIN AND CHANGE EVERY 72 HOURS, ROTATE SITES DURAGESIC-12 12 MCG/HR PT72 757676 FENTANYL Inactive FENTANYL 50 MCG/HR PT72 place 1 patch on skin q72 hours FENTANYL 50 MCG/HR PT72 581534 FENTANYL Inactive FUROSEMIDE 40 MG TABS 1 q am FUROSEMIDE 40 MG TABS 177446 FUROSEMIDE Inactive FENTANYL 75 MCG/HR PT72 place 1 patch on skin q72hrs fr pain 2012 FENTANYL 75 MCG/HR PT72 189169 FENTANYL Inactive DURAGESIC-25 25 MCG/HR PT72 place 1 patch on the skin q72hrs for pain DURAGESIC-25 25 MCG/HR PT72 396353 FENTANYL Inactive HYDROCHLOROTHIAZIDE 25 MG TABS 1 qd HYDROCHLOROTHIAZIDE 25 MG TABS 076146 HYDROCHLOROTHIAZIDE Inactive LISINOPRIL 40 MG TABS 1 qd LISINOPRIL 40 MG TABS 571315 LISINOPRIL Inactive METFORMIN HCL 500 MG TABS 1 bod with food METFORMIN HCL 500 MG TABS 580261 METFORMIN HCL Inactive METOPROLOL TARTRATE 50 MG TABS 1 bid METOPROLOL TARTRATE 50 MG TABS 734086 METOPROLOL TARTRATE Inactive GNP THERAPEUTIC-M TABS 1 qd GNP THERAPEUTIC-M TABS MULTIPLE VITAMINS-MINERALS Inactive AMBIEN 10 MG TABS 1 q hs prn AMBIEN 10 MG TABS 564895 ZOLPIDEM TARTRATE Inactive CLONIDINE HCL 0.2 MG TABS 1 q 8 hrs as needed -greater than 160-htn CLONIDINE HCL 0.2 MG TABS 045432 CLONIDINE HCL Inactive ANTIVERT 25 MG TABS 1 q 6 hrs prn ANTIVERT 25 MG TABS MECLIZINE HCL Inactive NEURONTIN 400 MG CAPS Take one by mouth 3 times daily, morning, afternoon and evening.] NEURONTIN 400 MG CAPS 165172 GABAPENTIN Inactive IMDUR 120 MG [id number] 1 qd IMDUR 120 MG [id number] ISOSORBIDE MONONITRATE Inactive [facility]S MILK OF MAGNESIA [...] for arthritis pain MOBIC 15 MG TABS 704047 MELOXICAM Inactive LEVEMIR 100 UNIT/ML SOLN 5 units sub-q at bedtime LEVEMIR 100 UNIT/ML SOLN INSULIN DETEMIR Inactive SULFAMETHOXAZOLE-TMP DS 800-160 MG TABS 1 TAB PO BID SULFAMETHOXAZOLE-TMP DS 800-160 MG TABS 205435 SULFAMETHOXAZOLE-TRIMETHOPRIM Inactive AMBIEN 10 MG TAB 1 tab by mouth at bedtime as needed for sleep AMBIEN 10 MG TAB 149661 ZOLPIDEM TARTRATE Inactive POTASSIUM CHLORIDE CHELA ER 20 MEQ CR-TABS 1 tab PO daily POTASSIUM CHLORIDE CHELA ER 20 MEQ CR-TABS POTASSIUM CHLORIDE CHELA CR Inactive MIRALAX POWD 17 gms in 4 oz water or juice daily MIRALAX POWD 900706 POLYETHYLENE GLYCOL 3350 Inactive CVS VITAMIN C 500 MG TABS 1 po daily CVS VITAMIN C 500 MG TABS 201472 ASCORBIC ACID Inactive COZAAR 100 MG TABS 1 qd COZAAR 100 MG TABS 313797 LOSARTAN POTASSIUM Inactive ALLOPURINOL 300 MG TABS 1 qd ALLOPURINOL 300 MG TABS 662069 ALLOPURINOL Inactive BUDEPRION SR 150 MG [id number] 1 bid BUDEPRION SR 150 MG [id number] BUPROPION HCL Inactive DILANTIN 100 MG CAPS 3 cap tid DILANTIN 100 MG CAPS 989582 PHENYTOIN SODIUM EXTENDED Inactive HYDROCODONE-ACETAMINOPHEN 7.5-325 MG TABS 1 q 6 hrs prn HYDROCODONE-ACETAMINOPHEN 7.5-325 MG TABS 526372 HYDROCODONE- ACETAMINOPHEN Inactive GABAPENTIN 300 MG CAPS 1 CAP PO TID GABAPENTIN 300 MG CAPS 227464 GABAPENTIN Inactive GABAPENTIN 400 MG ORAL CAPS 1 TAB BY MOUTH THREE TIMES DAILY 2015 GABAPENTIN 400 MG ORAL CAPS 001142 GABAPENTIN Inactive METOPROLOL TARTRATE 50 MG ORAL TABS 1 TAB BY MOUTH TWICE DAILY METOPROLOL TARTRATE 50 MG ORAL TABS 586512 METOPROLOL TARTRATE Inactive ZYLOPRIM 300 MG TAB 1 BY MOUTH DAILY ZYLOPRIM 300 MG TAB 968050 ALLOPURINOL Inactive MECLIZINE HCL 25 MG CHEW TAB 1 four times a day as needed for dizziness 02/21 MECLIZINE HCL 25 MG CHEW TAB 437403 MECLIZINE HCL Inactive ATIVAN 0.5 MG TABS Take 1 tablet 2x daily PRN ATIVAN 0.5 MG TABS 125933 LORAZEPAM Inactive CELEXA 20 MG TABS Take 1 tablet 1x daily CELEXA 20 MG TABS 539259 CITALOPRAM HYDROBROMIDE Inactive ULORIC 40 MG ORAL TABS 1 daily for gout. ULORIC 40 MG ORAL TABS FEBUXOSTAT Inactive BUPROPION HCL ER (SR) 150 MG [id number] 1 twice a day for depression BUPROPION HCL ER (SR) 150 MG [id number] BUPROPION HCL Inactive MULTIVITAMINS CAPS 1 DAILY MULTIVITAMINS CAPS MULTIPLE VITAMIN Inactive NORCO 5-325 MG TABS 1-2 TAB Q 6 HRS PRN NORCO 5-325 MG TABS 326431 HYDROCODONE-ACETAMINOPHEN Inactive PHENYTOIN 50 MG CHEW 1 TAB PO BID PHENYTOIN 50 MG CHEW 4798562 PHENYTOIN Inactive FENTANYL 12 MCG/HR PT72 Apply to clean, dry skin and change every 72 hours FENTANYL 12 MCG/HR PT72 617355 FENTANYL Inactive FENTANYL 25 MCG/HR PT72 Apply to clean skin and change every 72 hours. 2013/ 05/22 FENTANYL 25 MCG/HR PT72 892716 FENTANYL Inactive Advance Directives Directive Description Start [...] mg/dL Encounters Code Encounter Date Provider Facility CPT-21342 Level 4 Est. Patient 18:47:35 HARDWARE TEST ENGINEER Jonel Hemphill MD [facility] CPT-49967 Level 4 Est. Patient 10:04:48 HARDWARE TEST ENGINEER Jonel Hemphill MD [facility] CPT-02252 Level 3 Est. Patient 19:05:03 CDT Jonel Hemphill MD [facility] CPT-99233 Level 3 Est. Patient 17:30:47 CDT Kevin Link MD [facility] CPT-94997 Level 3 Est. Patient 18:04:07 CDT Jonel Hemphill MD [facility] CPT-87257 Level 3 Est. Patient 17:18:03 CDT Jonel Hemphill MD [facility] CPT-64339 Level 3 Est. Patient 21:58:03 HARDWARE TEST ENGINEER Jonel Hemphill MD [facility] CPT-76239 Level 4 Est. Patient 18:03:14 CDT Jonel Yeager [facility]-94278 Level 4 Est. Patient 13:24:53 CDT [facility] CPT-89552 Level 4 Est. Patient 09:15:44 CDT Jonel Hemphill MD [facility]-89538 Level 4 Est. Patient 19:16:01 CDT Jonel Hemphill MD [facility]-73815 Level 4 Est. Patient 11:25:16 CDT Jonel Hemphill MD [facility] CPT-35795 Level 4 Est. Patient 09:00:40 CDT Jonel Hemphill MD [facility]-22851 Level 4 Est. Patient 14:53:58 CDT Jonel Hemphill MD [facility]-09961 Level 4 Est. Patient 22:59:01 CDT Jonel Hemphill MD [facility]-47841 Level 4 Est. Patient 09:29:57 CDT Jonel Hemphill MD [facility]-93750 Level 4 Est. Patient 12:35:53 HARDWARE TEST ENGINEER Jonel Hemphill MD [facility]-75116 Level 4 Est. Patient 22:36:09 HARDWARE TEST ENGINEER Jonel Hemphill MD [facility]-04265 Level 2 Est. Patient 15:14:15 HARDWARE TEST ENGINEER Mayco Shah APRN [facility] CPT-60257 Level 4 Est. Patient 10:36:22 HARDWARE TEST ENGINEER Jonel Hemphill MD [facility] CPT-61865 Level 4 Est. Patient 22:01:13 HARDWARE TEST ENGINEER Jonel Hemphill MD [facility]-09622 Level 3 Est. Patient 21:50:37 HARDWARE TEST ENGINEER Jonel Hemphill MD [facility] CPT-86698 Level 4 Est. Patient 15:02:43 CDT Rubin Pierre MD [facility] CPT-41108 Level 4 Est. Patient 14:27:35 CDT Jonel Hemphill MD [facility]-63766 Level 4 Est. Patient 12:41:17 CDT Jonel Hemphill MD [facility]-89193 Level 4 Est. Patient 16:18:55 CDT Jonel Hemphill MD [facility]-55593 Level 4 Est. Patient 17:58:05 CDT Jonel Hemphill MD [facility]-01919 Level 4 Est. Patient 22:10:06 CDT Jonel Hemphill MD [facility]-21169 Level 4 Est. Patient 13:22:09 CDT Jonel Hemphill MD [facility]-61971 Level 4 Est. Patient 22:52:17 HARDWARE TEST ENGINEER Jonel Hemphill MD [facility]-21333 Level 3 Est. Patient 22:34:10 HARDWARE TEST ENGINEER Jonel Hemphill MD [facility]-77656 Level 4 Est. Patient 07:49:20 HARDWARE TEST ENGINEER Jonel Hemphill MD [facility] Skilled CPT-60575 Level 3 Est. Patient 08:28:27 HARDWARE TEST ENGINEER Jonel Hemphill MD [facility] Procedures Code Procedure Name Date Entry Date Standard Description CPT-G0438 Initial Annual Wellness Exam 09:32:09 HARDWARE TEST ENGINEER CPT-83077 Level 3 Custodial 17:57:17 HARDWARE TEST ENGINEER CPT-98498 Level 3 Custodial 21:14:15 HARDWARE TEST ENGINEER CPT-70709 Level 3 Custodial 15:38:24 CDT CPT-61271 Level 3 Custodial 08:18:30 CDT CPT-95992 Level 3 Custodial 19:03:14 CDT CPT-31280 Level 3 Custodial 17:42:11 CDT CPT-29345 Level 3 Custodial 16:04:10 CDT CPT-19190 Level 3 Custodial 19:38:15 HARDWARE TEST ENGINEER CPT-66244 Level 3 Custodial 19:28:48 HARDWARE TEST ENGINEER CPT-10016 Level 3 Custodial 18:02:20 HARDWARE TEST ENGINEER CPT-42330 Level 3 Custodial 15:02:14 HARDWARE TEST ENGINEER CPT-94701 Level 3 Custodial 12:25:37 CDT CPT-42618 Level 3 Custodial 12:48:39 CDT CPT-72904 Level 3 Custodial 17:39:14 CDT CPT-71917 Level 3 Custodial 13:32:58 CDT CPT-24830 Level 3 Custodial 17:43:43 CDT CPT-52083 Level 3 Custodial 12:03:33 HARDWARE TEST ENGINEER CPT-91981 Level 3 Custodial 18:47:28 HARDWARE TEST ENGINEER CPT-96497 Level 3 Custodial 17:35:26 HARDWARE TEST ENGINEER CPT-32455 Level 3 Custodial 18:44:49 HARDWARE TEST ENGINEER CPT-26900 Level 3 Custodial 18:17:33 CDT CPT-84466 Level 3 Custodial 09:25:33 CDT CPT-83381 Level 3 Custodial 19:11:57 CDT CPT-45375 Level 3 Custodial 09:25:52 CDT CPT-45723 Level 3 Custodial 14:23:59 CDT CPT-58849 Level 3 Custodial 12:09:43 CDT CPT-30954 Level 3 Custodial 09:37:40 CDT CPT-36689 Level 3 Custodial 18:23:02 CDT CPT-25804 Level 3 Custodial 14:09:06 CDT CPT-91680 Level 3 Custodial 12:43:27 HARDWARE TEST ENGINEER CPT-74198 Postop F/U Visit 14:10:15 HARDWARE TEST ENGINEER CPT-46193 [facility] 17:07:14 HARDWARE TEST ENGINEER CPT-70308 Level 3 Custodial 16:14:37 HARDWARE TEST ENGINEER CPT-33545 Port a cath flush 11:47:42 CDT CPT-77369 Port a cath flush 08:29:49 CDT CPT-OV Office Visit 14:27:58 HARDWARE TEST ENGINEER
--- OUTSIDE RECORDS SUMMARY | 2016-08-07 13:15 | XMS REPORT | Clinical Summary ---
Author Author Admin, KARLAE Organization [facility] Address Unknown Phone Unavailable Allergies, Adverse Reactions, Alerts Allergy Name Reaction Description Start Date Severity Status Provider PENICILLIN Critical Active Carpinteriajaida Giles RMA Conditions or Problems Problem Name [...] MD Benign essential hypertension ANTIHYPERLIPIDEMIC USE, SECURITY ALARM INSTALLER V58.69 Resolved Jonel Hemphill MD Long-term (current) [...] abscess of leg, except foot ANTIHYPERLIPIDEMIC USE, SECURITY ALARM INSTALLER ICD-V58.69 Inactive Jonel Hemphill MD DIABETES, [...] TAB PO Q 6 HRS PRN HYDROCODONE-ACETAMINOPHEN 00510531810 Active Jonel Hemphill MD Active METFORMIN HCL 1000 MG TABS 1 tablet by mouth twice daily METFORMIN HCL 05526855705 Active Marleni Romero Active FENTANYL 12 MCG/HR PT72 Apply to clean, dry skin and change every 72 hours FENTANYL 37902651747 Active Mattie Gates APRN Active KLOR-CON 20 MEQ ORAL PACK 1 BY MOUTH DAILY POTASSIUM CHLORIDE 12232561730 Active Marleni Romero Active A+D FIRST AID EXT OINT APPLY OINTMENT AND RUFINO WRAPS TO LOWER EXTEREMETIES DAILY SKIN PROTECTANTS, MISC. 65676472328 Active Jonel Hemphill MD Active NYSTATIN 186696 UNIT/GM EXT OINT APPLY PRN TID TO GAULDING/RASH IN ABDOMINAL FOLDS NYSTATIN 32850233021 Active Jonel Hemphill MD Active ATIVAN 0.5 MG TABS Take 1 tablet 2x daily PRN LORAZEPAM 87176292453 Active Jonel Hemphill MD Active GABAPENTIN 400 MG ORAL CAPS 1 TAB BY MOUTH THREE TIMES DAILY GABAPENTIN 88405238739 Active Jonel Hemphill MD Active GABAPENTIN 300 MG CAPS 1 CAP PO TID GABAPENTIN 06782715221 No Longer Active Jonel Hemphill MD Active DILANTIN 100 MG ORAL CAPS 1 THREE TIMES DAILY FOR SEIZURES PHENYTOIN SODIUM EXTENDED 00054802446 Active Marleni Romero Active CPAP APPLY AT HS CPAP Active Jonel Hemphill MD Active METOPROLOL TARTRATE 50 MG ORAL TABS 1 TAB BY MOUTH TWICE DAILY METOPROLOL TARTRATE 45889128424 Active Jonel Hemphill MD Active LISINOPRIL 40 MG TABS 1 tablet by mouth twice daily, for blood pressure 03/31 LISINOPRIL 23616759433 Active Jonel Hemphill MD Active BUPROPION HCL ER (SR) 150 MG [id number] 1 twice a day for depression BUPROPION HCL 24923857920 Active Jonel Hemphill MD Active MULTIVITAMINS CAPS 1 DAILY MULTIPLE VITAMIN 61249586115 Active Jonel Hemphill MD Active ZYLOPRIM 300 MG TAB 1 BY MOUTH DAILY ALLOPURINOL 88791204187 Active Jonel Hemphill MD Active HYDROCODONE-ACETAMINOPHEN 7.5-325 MG TABS 1 q 6 hrs prn HYDROCODONE-ACETAMINOPHEN 58902947967 No Longer Active Jonel Hemphill MD Active DILANTIN 100 MG CAPS 3 cap tid PHENYTOIN SODIUM EXTENDED 68444542658 No Longer Active Jonel Hemphill MD Active BUDEPRION SR 150 MG [id number] 1 bid BUPROPION HCL 14048650893 No Longer Active Jonel Hemphill MD Active ALLOPURINOL 300 MG TABS 1 qd ALLOPURINOL 28152274549 No Longer Active Jonel Hemphill MD Active COZAAR 100 MG TABS 1 qd LOSARTAN POTASSIUM 64985177024 No Longer Active Jonel Hemphill MD Active CVS VITAMIN C 500 MG TABS 1 po daily ASCORBIC ACID 69484575604 No Longer Active Jonel Hemphill MD Active MIRALAX POWD 17 gms in 4 oz water or juice daily POLYETHYLENE GLYCOL 3350 21186975067 No Longer Active Jonel Hemphill MD Active POTASSIUM CHLORIDE CHELA ER 20 MEQ CR-TABS 1 tab PO daily POTASSIUM CHLORIDE CHELA CR 00363877656 No Longer Active Jonel Hemphill MD Active AMBIEN 10 MG TAB 1 tab by mouth at bedtime as needed for sleep ZOLPIDEM TARTRATE 59652478269 No Longer Active Jonel Hemphill MD Active SULFAMETHOXAZOLE-TMP DS 800-160 MG TABS 1 TAB PO BID SULFAMETHOXAZOLE-TRIMETHOPRIM 60119137501 No Longer Active Jonel Hemphill MD Active NORCO 5-325 MG TABS 1-2 TAB Q 6 HRS PRN HYDROCODONE- ACETAMINOPHEN 99092444246 Active Jonel Hemphill MD Active LEVEMIR 100 UNIT/ML SOLN 5 units sub-q at bedtime INSULIN DETEMIR 30211335493 No Longer Active Tova Perez Active MOBIC 15 MG TABS 1 tab PO daily for arthritis pain MELOXICAM 80982240408 No Longer Active Tova Perez Active GLUCAGEN 1 MG SOLR INJECT 1MG IM IF BS LESS THAN 60 & RES. IS UNABLE TO SWALLOW GLUCAGON HCL (RDNA) 53925420422 No Longer Active Tova Perez Active CVS MILK OF MAGNESIA 1200 MG/15ML SUSP 30 ml daily for constipation MAGNESIUM HYDROXIDE 96462088267 No Longer Active Tova Perez Active IMDUR 120 MG [id number] 1 qd ISOSORBIDE MONONITRATE 31817158525 No Longer Active Tova Perez Active PHENYTOIN 50 MG CHEW 1 TAB PO BID PHENYTOIN 81235174977 Active Tova Perez Active MECLIZINE HCL 25 MG CHEW TAB 1 four times a day as needed for dizziness 02/21 MECLIZINE HCL 48472690704 Active Tova Perez Active NEURONTIN 400 MG CAPS Take one by mouth 3 times daily, morning, afternoon and evening.] GABAPENTIN 34600185479 No Longer Active Tova Perez Active ANTIVERT 25 MG TABS 1 q 6 hrs prn MECLIZINE HCL 45614256705 No Longer Active Jonel Hemphill MD Active CLONIDINE HCL 0.2 MG TABS 1 q 8 hrs as needed -greater than 160-htn CLONIDINE HCL 25423733777 No Longer Active Jonel Hemphill MD Active AMBIEN 10 MG TABS 1 q hs prn ZOLPIDEM TARTRATE 74933926855 No Longer Active Jonel Hemphill MD Active GNP THERAPEUTIC-M TABS 1 qd MULTIPLE VITAMINS- MINERALS 53217963738 No Longer Active Jonel Hemphill MD Active METOPROLOL TARTRATE 50 MG TABS 1 bid METOPROLOL TARTRATE 49007690697 No Longer Active Jonel Hemphill MD Active METFORMIN HCL 500 MG TABS 1 bod with food METFORMIN HCL 39344459178 No Longer Active Jonel Hemphill MD Active LISINOPRIL 40 MG TABS 1 qd LISINOPRIL 45813108510 No Longer Active Jonel Hemphill MD Active HYDROCHLOROTHIAZIDE 25 MG TABS 1 qd HYDROCHLOROTHIAZIDE 01607760516 No Longer Active Jonel Hemphill MD Active DURAGESIC-25 25 MCG/HR PT72 place 1 patch on the skin q72hrs for pain FENTANYL 39238410564 No Longer Active Jonel Hemphill MD Active FENTANYL 75 MCG/HR PT72 place 1 patch on skin q72hrs fr pain 2012 FENTANYL 09136067481 No Longer Active Jonel Hemphill MD Active LASIX 20 MG TABS 1 tab PO q morning FUROSEMIDE 32223189031 Active Jonel Hemphill MD Active FUROSEMIDE 40 MG TABS 1 q am FUROSEMIDE 37146772476 No Longer Active Jonel Hemphill MD Active HEPARIN (PORCINE) LOCK FLUSH 100 UNIT/ML SOLN Flush port a cath monthly every three week on with Heparin and NS HEPARIN LOCK FLUSH 72727769383 Active Jonel Hemphill MD Active FENTANYL 100 MCG/HR PT72 Apply every 3 days FENTANYL 67483122822 Active Jonel Hemphill MD Active FENTANYL 25 MCG/HR PT72 Apply to clean skin and change every 72 hours. 07/03 FENTANYL 08770122837 No Longer Active Jonel Hemphill MD Active FENTANYL 50 MCG/HR PT72 place 1 patch on skin q72 hours FENTANYL 78609171631 No Longer Active Mayco Shah BREAK UP WORKER Active CELEXA 20 MG TABS Take 1 tablet 1x daily CITALOPRAM HYDROBROMIDE 90077818933 Active Jonel Hemphill MD Active DURAGESIC-12 12 MCG/HR PT72 APPLY PATCH TO SKIN AND CHANGE EVERY 72 HOURS, ROTATE SITES FENTANYL 24270017226 No Longer Active Fozia Amador RMA Active FUROSEMIDE 20 MG TABS 1 qd FUROSEMIDE 62350186441 No Longer Active Mahogany Fields Active ADULT ASPIRIN EC LOW STRENGTH 81 MG TBEC 1 qd ASPIRIN 04150540495 Active MARY Perez Active FUROSEMIDE 20 MG TABS 1 qd FUROSEMIDE 20 MG TABS 155537 FUROSEMIDE Inactive DURAGESIC-12 12 MCG/HR PT72 APPLY PATCH TO SKIN AND CHANGE EVERY 72 HOURS, ROTATE SITES DURAGESIC-12 12 MCG/HR PT72 793566 FENTANYL Inactive FENTANYL 50 MCG/HR PT72 place 1 patch on skin q72 hours FENTANYL 50 MCG/HR PT72 816990 FENTANYL Inactive FUROSEMIDE 40 MG TABS 1 q am FUROSEMIDE 40 MG TABS 356128 FUROSEMIDE Inactive FENTANYL 75 MCG/HR PT72 place 1 patch on skin q72hrs fr pain 2012 FENTANYL 75 MCG/HR PT72 137912 FENTANYL Inactive DURAGESIC-25 25 MCG/HR PT72 place 1 patch on the skin q72hrs for pain DURAGESIC-25 25 MCG/HR PT72 221419 FENTANYL Inactive HYDROCHLOROTHIAZIDE 25 MG TABS 1 qd HYDROCHLOROTHIAZIDE 25 MG TABS 982935 HYDROCHLOROTHIAZIDE Inactive LISINOPRIL 40 MG TABS 1 qd LISINOPRIL 40 MG TABS 496115 LISINOPRIL Inactive METFORMIN HCL 500 MG TABS 1 bod with food METFORMIN HCL 500 MG TABS 203865 METFORMIN HCL Inactive METOPROLOL TARTRATE 50 MG TABS 1 bid METOPROLOL TARTRATE 50 MG TABS 602205 METOPROLOL TARTRATE Inactive GNP THERAPEUTIC-M TABS 1 qd GNP THERAPEUTIC-M TABS MULTIPLE VITAMINS-MINERALS Inactive AMBIEN 10 MG TABS 1 q hs prn AMBIEN 10 MG TABS 129498 ZOLPIDEM TARTRATE Inactive CLONIDINE HCL 0.2 MG TABS 1 q 8 hrs as needed -greater than 160-htn CLONIDINE HCL 0.2 MG TABS 337097 CLONIDINE HCL Inactive ANTIVERT 25 MG TABS 1 q 6 hrs prn ANTIVERT 25 MG TABS MECLIZINE HCL Inactive NEURONTIN 400 MG CAPS Take one by mouth 3 times daily, morning, afternoon and evening.] NEURONTIN 400 MG CAPS 448878 GABAPENTIN Inactive IMDUR 120 MG [id number] 1 qd IMDUR 120 MG [id number] ISOSORBIDE MONONITRATE Inactive CVS MILK OF MAGNESIA [...] for arthritis pain MOBIC 15 MG TABS 656735 MELOXICAM Inactive LEVEMIR 100 UNIT/ML SOLN 5 units sub-q at bedtime LEVEMIR 100 UNIT/ML SOLN INSULIN DETEMIR Inactive SULFAMETHOXAZOLE-TMP DS 800-160 MG TABS 1 TAB PO BID SULFAMETHOXAZOLE-TMP DS 800-160 MG TABS 814618 SULFAMETHOXAZOLE-TRIMETHOPRIM Inactive AMBIEN 10 MG TAB 1 tab by mouth at bedtime as needed for sleep AMBIEN 10 MG TAB 512264 ZOLPIDEM TARTRATE Inactive POTASSIUM CHLORIDE CHELA ER 20 MEQ CR-TABS 1 tab PO daily POTASSIUM CHLORIDE CHELA ER 20 MEQ CR-TABS POTASSIUM CHLORIDE CHELA CR Inactive MIRALAX POWD 17 gms in 4 oz water or juice daily MIRALAX POWD 974443 POLYETHYLENE GLYCOL 3350 Inactive CVS VITAMIN C 500 MG TABS 1 po daily CVS VITAMIN C 500 MG TABS 664663 ASCORBIC ACID Inactive COZAAR 100 MG TABS 1 qd COZAAR 100 MG TABS 312019 LOSARTAN POTASSIUM Inactive ALLOPURINOL 300 MG TABS 1 qd ALLOPURINOL 300 MG TABS 467056 ALLOPURINOL Inactive BUDEPRION SR 150 MG [id number] 1 bid BUDEPRION SR 150 MG [id number] BUPROPION HCL Inactive DILANTIN 100 MG CAPS 3 cap tid DILANTIN 100 MG CAPS 280922 PHENYTOIN SODIUM EXTENDED Inactive HYDROCODONE-ACETAMINOPHEN 7.5-325 MG TABS 1 q 6 hrs prn HYDROCODONE-ACETAMINOPHEN 7.5-325 MG TABS 567354 HYDROCODONE- ACETAMINOPHEN Inactive GABAPENTIN 300 MG CAPS 1 CAP PO TID GABAPENTIN 300 MG CAPS 363828 GABAPENTIN Inactive FENTANYL 25 MCG/HR PT72 Apply to clean skin and change every 72 hours. 07/03 FENTANYL 25 MCG/HR PT72 678540 FENTANYL Inactive Advance Directives Directive Description Start [...] 4.3-6.0 Encounters Code Encounter Date Provider Facility CPT-38879 Level 3 Est. Patient 18:04:07 CDT Jonel Hemphill MD [facility] CPT-54199 Level 3 Est. Patient 17:18:03 CDT Jonel Hemphill MD [facility]-20551 Level 3 Est. Patient 21:58:03 SALES ADVISORY MANAGER Jonel Hemphill MD [facility]-34500 Level 4 Est. Patient 18:03:14 CDT Jonel Hemphill MD [facility]-79829 Level 4 Est. Patient 13:24:53 CDT Jonel Hemphill MD [facility]-71019 Level 4 Est. Patient 09:15:44 CDT Jonel Hemphill MD [facility]-51479 Level 4 Est. Patient 19:16:01 CDT Jonel Hemphill MD [facility]-93770 Level 4 Est. Patient 11:25:16 CDT Jonel Hemphill MD [facility]-03875 Level 4 Est. Patient 09:00:40 CDT Jonel Hemphill MD [facility]-54025 Level 4 Est. Patient 14:53:58 CDT Jonel Hemphill MD [facility]-56005 Level 4 Est. Patient 22:59:01 CDT Jonel Hemphill MD [facility]-55882 Level 4 Est. Patient 09:29:57 CDT Jonel Hemphill MD [facility]-54960 Level 4 Est. Patient 12:35:53 SALES ADVISORY MANAGER Jonel Hemphill MD [facility]-96230 Level 4 Est. Patient 22:36:09 SALES ADVISORY MANAGER Jonel Hemphill MD [facility]-74433 Level 2 Est. Patient 15:14:15 SALES ADVISORY MANAGER Mayco Shah APRN [facility] CPT-65877 Level 4 Est. Patient 10:36:22 SALES ADVISORY MANAGER Jonel Hempihll MD [facility] CPT-93038 Level 4 Est. Patient 22:01:13 SALES ADVISORY MANAGER Jonel Hemphill MD [facility]-56005 Level 3 Est. Patient 21:50:37 SALES ADVISORY MANAGER Jonel Hemphill MD [facility] CPT-27096 Level 4 Est. Patient 15:02:43 CDT Rubin Pierre MD [facility] CPT-38012 Level 4 Est. Patient 14:27:35 CDT Jonel Hemphill MD [facility]-71878 Level 4 Est. Patient 12:41:17 CDT Jonel Hemphill MD [facility]-65454 Level 4 Est. Patient 16:18:55 CDT Jonel Hemphill MD [facility]-89156 Level 4 Est. Patient 17:58:05 CDT Jonel Hemphill MD [facility] CPT-48048 Level 4 Est. Patient 22:10:06 CDT Jonel Hemphill MD [facility]-24971 Level 4 Est. Patient 13:22:09 CDT Jonel Hemphill MD [facility]-66085 Level 4 Est. Patient 22:52:17 SALES ADVISORY MANAGER Jonel Hemphill MD [facility]-20389 Level 3 Est. Patient 22:34:10 SALES ADVISORY MANAGER Jonel Hemphill MD [facility]-00519 Level 4 Est. Patient 07:49:20 SALES ADVISORY MANAGER Jonel Hemphill MD [facility] CPT-61394 Level 3 Est. Patient 08:28:27 SALES ADVISORY MANAGER Jonel Hemphill MD [facility] Procedures Code Procedure Name Date Entry Date Standard Description CPT-64022 Level 3 Assisted 17:42:11 CDT CPT-78412 Level 3 Assisted 16:04:10 CDT CPT-08757 Level 3 Assisted 19:38:15 SALES ADVISORY MANAGER CPT-78795 Level 3 Assisted 19:28:48 SALES ADVISORY MANAGER CPT-13682 Level 3 Assisted 18:02:20 SALES ADVISORY MANAGER CPT-48647 Level 3 Assisted 15:02:14 SALES ADVISORY MANAGER CPT-42165 Level 3 Assisted 12:25:37 CDT CPT-10130 Level 3 Assisted 12:48:39 CDT CPT-58223 Level 3 Assisted 17:39:14 CDT CPT-39551 Level 3 Assisted 13:32:58 CDT CPT-88757 Level 3 Assisted 17:43:43 CDT CPT-68621 Level 3 Assisted 12:03:33 SALES ADVISORY MANAGER CPT-41497 Level 3 Assisted 18:47:28 SALES ADVISORY MANAGER CPT-48796 Level 3 Assisted 17:35:26 SALES ADVISORY MANAGER CPT-13844 Level 3 Assisted 18:44:49 SALES ADVISORY MANAGER CPT-27789 Level 3 Assisted 18:17:33 CDT CPT-32407 Level 3 Assisted 09:25:33 CDT CPT-73246 Level 3 Assisted 19:11:57 CDT CPT-44697 Level 3 Assisted 09:25:52 CDT CPT-59709 Level 3 Assisted 14:23:59 CDT CPT-33588 Level 3 Assisted 12:09:43 CDT CPT-21895 Level 3 Assisted 09:37:40 CDT CPT-59136 Level 3 Assisted 18:23:02 CDT CPT-32622 Level 3 Assisted 14:09:06 CDT CPT-80194 Level 3 Assisted 12:43:27 SALES ADVISORY MANAGER CPT-42806 Postop F/U Visit 14:10:15 SALES ADVISORY MANAGER CPT-32350 [facility] 17:07:14 SALES ADVISORY MANAGER CPT-05619 Level 3 Assisted 16:14:37 SALES ADVISORY MANAGER CPT-26457 Port a cath flush 11:47:42 CDT CPT-93204 Port a cath flush 08:29:49 CDT CPT-OV Office Visit 14:27:58 SALES ADVISORY MANAGER
--- OUTSIDE RECORDS SUMMARY | 2016-08-07 13:16 | XMS REPORT | Clinical Summary ---
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 Jonel Hemphill MD Long-term [...] Coronary atherosclerosis of unspecified type of vessel, [place] or graft FH DIABETES V18.0 Resolved Jonel [...] Coronary atherosclerosis of unspecified type of vessel, [place] or graft CONSTIPATION 564.00 Resolved Jonel Hemphill [...] Chest wall pain, acute 786.52 Resolved Jonel eHmphill MD Painful respiration Accidental fall E888.9 Active Jonel Hemphill MD Unspecified fall Obstructive sleep apnea, adult 327.23 Active Jonel Hemphill MD Obstructive sleep apnea (adult) (pediatric) ANTIHYPERLIPIDEMIC USE, ASSOCIATE BUSINESS ANALYST ICD-V58.69 Inactive Jonel Hemphill MD DIABETES, [...] skin and change every 72 hours FENTANYL 58236016173 Active Tova Chris Active MIRALAX POWD 17 gms in 4 oz water or juice daily POLYETHYLENE GLYCOL 3350 22255433272 Active Jonel Hemphill MD Active CVS MELATONIN 3 MG ORAL TABS 2 tabs at hs MELATONIN 38233133606 Active Jonel Hemphill MD Active MAGNESIUM GLUCONATE 500 MG ORAL TABS 1 tab twice daily MAGNESIUM GLUCONATE 75501085720 Active Jonel Hemphill MD Active OMEPRAZOLE 20 MG CPDR 1 tablet by mouth daily OMEPRAZOLE 11868270349 Active Jonel Hemphill MD Active DIGOXIN 125 MCG ORAL TABS 1 daily DIGOXIN 64587779489 Active Jonel Hemphill MD Active DILTIAZEM CD 240 MG ORAL [id number] 1 daily DILTIAZEM HCL COATED [place]ADS 37483371878 Active Jonel Hemphill MD Active NOVOLOG 100 UNIT/ML SC SOLN 70-140=0U 141-180=2 U 181-220=4U 221-260=6U 261- 300=8U 301-340=10U 484=096=51R 381-400=14U INSULIN ASPART 43949391431 Active Jonel Hemphill MD Active ACETAMINOPHEN 325 MG ORAL TABS 1 tab by mouth every 4 hours as needed ACETAMINOPHEN 18233130536 Active Jonel Hemphill MD Active FENTANYL 12 MCG/HR PT72 Apply to clean, dry skin and change every 72 hours FENTANYL 38515890320 No Longer Active Jonel Hemphill MD Active PHENYTOIN 50 MG CHEW 1 TAB PO BID PHENYTOIN 82742727115 No Longer Active Jonel Hemphill MD Active NORCO 5-325 MG TABS 1-2 TAB Q 6 HRS PRN HYDROCODONE- ACETAMINOPHEN 48581215492 No Longer Active Jonel Hemphill MD Active MULTIVITAMINS CAPS 1 DAILY MULTIPLE VITAMIN 81183461232 No Longer Active Jonel Hemphill MD Active BUPROPION HCL ER (SR) 150 MG [id number] 1 twice a day for depression BUPROPION HCL 53272181279 No Longer Active Jonel Hemphill MD Active LISINOPRIL 20 MG TABS 1 tablet by mouth daily LISINOPRIL 76148360419 Active Jonel Hemphill MD Active ULORIC 40 MG ORAL TABS 1 daily for gout. FEBUXOSTAT 80599431260 No Longer Active Jonel Hemphill MD Active CELEXA 20 MG TABS 1 tablet by mouth daily CITALOPRAM HYDROBROMIDE 12246324371 Active Marleni Raida Active ZOFRAN 4 MG TABS 1 po q6hr PRN Nausea ONDANSETRON HCL 30797306921 Active Jonel Hemphill MD Active XARELTO 20 MG ORAL TABS 1 daily RIVAROXABAN 44588789660 Active Jonel Hemphill MD Active JANUVIA 100 MG ORAL TABS 2 tabs daily SITAGLIPTIN PHOSPHATE 98173884499 Active Jonel Hemphill MD Active CELEXA 20 MG TABS Take 1 tablet 1x daily CITALOPRAM HYDROBROMIDE 59354450374 No Longer Active Jonel Hemphill MD Active ATIVAN 0.5 MG TABS Take 1 tablet 2x daily PRN LORAZEPAM 00409583109 No Longer Active Jonel Hemphill MD Active FUROSEMIDE 80 MG ORAL TABS 1 daily FUROSEMIDE 13057420242 Active Jonel Hemphill MD Active MECLIZINE HCL 25 MG CHEW TAB 1 four times a day as needed for dizziness 02/21 MECLIZINE HCL 00844735010 No Longer Active Jonel Hemphill MD Active ZYLOPRIM 300 MG TAB 1 BY MOUTH DAILY ALLOPURINOL 22806808462 No Longer Active Jonel Hemphill MD Active METOPROLOL TARTRATE 50 MG ORAL TABS 1 TAB BY MOUTH TWICE DAILY METOPROLOL TARTRATE 68865781688 No Longer Active Jonel Hemphill MD Active GABAPENTIN 400 MG ORAL CAPS 1 TAB BY MOUTH THREE TIMES DAILY 2015 GABAPENTIN 36593250333 No Longer Active Jonel Hemphill MD Active HYDROCODONE-ACETAMINOPHEN 7.5-325 MG TABS 1 TAB PO Q 6 HRS PRN HYDROCODONE-ACETAMINOPHEN 53246052006 Active Jonel Hemphill MD Active METFORMIN HCL 1000 MG TABS 1 tablet by mouth twice daily METFORMIN HCL 66716366234 Active Marleni Romero Active KLOR-CON 20 MEQ ORAL PACK 1 BY MOUTH DAILY POTASSIUM CHLORIDE 80553831247 Active Marleni Romero Active A+D FIRST AID EXT OINT APPLY OINTMENT AND RUFINO WRAPS TO LOWER EXTEREMETIES DAILY SKIN PROTECTANTS, MISC. 37549314818 Active Jonel Hemphill MD Active NYSTATIN 041273 UNIT/GM EXT OINT APPLY PRN TID TO GAULDING/RASH IN ABDOMINAL FOLDS NYSTATIN 02205581630 Active Jonel Hemphill MD Active GABAPENTIN 300 MG CAPS 1 CAP PO TID GABAPENTIN 16837823700 No Longer Active Jonel Hemphill MD Active DILANTIN 100 MG ORAL CAPS 1 THREE TIMES DAILY FOR SEIZURES PHENYTOIN SODIUM EXTENDED 22076692399 Active Marleni Romero Active CPAP APPLY AT HS CPAP Active Jonel Hemphill MD Active HYDROCODONE-ACETAMINOPHEN 7.5-325 MG TABS 1 q 6 hrs prn HYDROCODONE-ACETAMINOPHEN 42509089026 No Longer Active Jonel Hemphill MD Active DILANTIN 100 MG CAPS 3 cap tid PHENYTOIN SODIUM EXTENDED 51576312529 No Longer Active Jonel Hemphill MD Active BUDEPRION SR 150 MG [id number] 1 bid BUPROPION HCL 22569444436 No Longer Active Jonel Hemphill MD Active ALLOPURINOL 300 MG TABS 1 qd ALLOPURINOL 74274281190 No Longer Active Jonel Hemphill MD Active COZAAR 100 MG TABS 1 qd LOSARTAN POTASSIUM 78723679433 No Longer Active Jonel Hemphill MD Active CVS VITAMIN C 500 MG TABS 1 po daily ASCORBIC ACID 04698945325 No Longer Active Jonel Hemphill MD Active MIRALAX POWD 17 gms in 4 oz water or juice daily POLYETHYLENE GLYCOL 3350 21129685321 No Longer Active Jonel Hemphill MD Active POTASSIUM CHLORIDE CHELA ER 20 MEQ CR-TABS 1 tab PO daily POTASSIUM CHLORIDE CHELA CR 97598320110 No Longer Active Jonel Hemphill MD Active AMBIEN 10 MG TAB 1 tab by mouth at bedtime as needed for sleep ZOLPIDEM TARTRATE 20887612500 No Longer Active Jonel Hemphill MD Active SULFAMETHOXAZOLE-TMP DS 800-160 MG TABS 1 TAB PO BID SULFAMETHOXAZOLE-TRIMETHOPRIM 17162524870 No Longer Active Jonel Hemphill MD Active LEVEMIR 100 UNIT/ML SOLN 5 units sub-q at bedtime INSULIN DETEMIR 37941869770 No Longer Active Tova Perez Active MOBIC 15 MG TABS 1 tab PO daily for arthritis pain MELOXICAM 05159638796 No Longer Active Tova Perez Active GLUCAGEN 1 MG SOLR INJECT 1MG IM IF BS LESS THAN 60 & RES. IS UNABLE TO SWALLOW GLUCAGON HCL (RDNA) 85478930603 No Longer Active Tova Perez Active CVS MILK OF MAGNESIA 1200 MG/15ML SUSP 30 ml daily for constipation MAGNESIUM HYDROXIDE 56148724471 No Longer Active Tova Perez Active IMDUR 120 MG [id number]-MWV 1 qd ISOSORBIDE MONONITRATE 89419394140 No Longer Active Tova Perez Active NEURONTIN 400 MG CAPS Take one by mouth 3 times daily, morning, afternoon and evening.] GABAPENTIN 00978056175 No Longer Active Tova Perez Active ANTIVERT 25 MG TABS 1 q 6 hrs prn MECLIZINE HCL 66866540389 No Longer Active Jonel Hemphill MD Active CLONIDINE HCL 0.2 MG TABS 1 q 8 hrs as needed -greater than 160-htn CLONIDINE HCL 47835825238 No Longer Active Jonel Hemphill MD Active AMBIEN 10 MG TABS 1 q hs prn ZOLPIDEM TARTRATE 19179542933 No Longer Active Jonel Hemphill MD Active GNP THERAPEUTIC-M TABS 1 qd MULTIPLE VITAMINS- MINERALS 84887654972 No Longer Active Jonel Hemphill MD Active METOPROLOL TARTRATE 50 MG TABS 1 bid METOPROLOL TARTRATE 89303781771 No Longer Active Jonel Hemphill MD Active METFORMIN HCL 500 MG TABS 1 bod with food METFORMIN HCL 45099702052 No Longer Active Jonel Hemphill MD Active LISINOPRIL 40 MG TABS 1 qd LISINOPRIL 04263200160 No Longer Active Jonel Hemphill MD Active HYDROCHLOROTHIAZIDE 25 MG TABS 1 qd HYDROCHLOROTHIAZIDE 10139936888 No Longer Active Jonel Hemphill MD Active DURAGESIC-25 25 MCG/HR PT72 place 1 patch on the skin q72hrs for pain FENTANYL 58126849306 No Longer Active Jonel Hemphill MD Active FENTANYL 75 MCG/HR PT72 place 1 patch on skin q72hrs fr pain 2012 FENTANYL 60732810438 No Longer Active Jonel Hemphill MD Active FUROSEMIDE 40 MG TABS 1 q am FUROSEMIDE 86509841502 No Longer Active Jonel Hemphill MD Active HEPARIN (PORCINE) LOCK FLUSH 100 UNIT/ML SOLN Flush port a cath monthly every three week on with Heparin and NS HEPARIN LOCK FLUSH 49486991210 Active Jonel Hemphill MD Active FENTANYL 100 MCG/HR PT72 Apply every 3 days FENTANYL 11617911747 Active Jonel Hemphill MD Active FENTANYL 25 MCG/HR PT72 Apply to clean skin and change every 72 hours. 07/03 FENTANYL 40233320222 No Longer Active Jonel Hemphill MD Active FENTANYL 50 MCG/HR PT72 place 1 patch on skin q72 hours FENTANYL 92420393411 No Longer Active Mayco Shah APRN Active DURAGESIC-12 12 MCG/HR PT72 APPLY PATCH TO SKIN AND CHANGE EVERY 72 HOURS, ROTATE SITES FENTANYL 39018697337 No Longer Active Fozia YANGA Active FUROSEMIDE 20 MG TABS 1 qd FUROSEMIDE 59705508672 No Longer Active Mahogany Croghan Active ADULT ASPIRIN EC LOW STRENGTH 81 MG TBEC 1 qd ASPIRIN 01765139745 Active MARY Perez Active FUROSEMIDE 20 MG TABS 1 qd FUROSEMIDE 20 MG TABS 586648 FUROSEMIDE Inactive DURAGESIC-12 12 MCG/HR PT72 APPLY PATCH TO SKIN AND CHANGE EVERY 72 HOURS, ROTATE SITES DURAGESIC-12 12 MCG/HR PT72 568483 FENTANYL Inactive FENTANYL 50 MCG/HR PT72 place 1 patch on skin q72 hours FENTANYL 50 MCG/HR PT72 952671 FENTANYL Inactive FUROSEMIDE 40 MG TABS 1 q am FUROSEMIDE 40 MG TABS 331843 FUROSEMIDE Inactive FENTANYL 75 MCG/HR PT72 place 1 patch on skin q72hrs fr pain 2012 FENTANYL 75 MCG/HR PT72 132886 FENTANYL Inactive DURAGESIC-25 25 MCG/HR PT72 place 1 patch on the skin q72hrs for pain DURAGESIC-25 25 MCG/HR PT72 569115 FENTANYL Inactive HYDROCHLOROTHIAZIDE 25 MG TABS 1 qd HYDROCHLOROTHIAZIDE 25 MG TABS 423977 HYDROCHLOROTHIAZIDE Inactive LISINOPRIL 40 MG TABS 1 qd LISINOPRIL 40 MG TABS 147213 LISINOPRIL Inactive METFORMIN HCL 500 MG TABS 1 bod with food METFORMIN HCL 500 MG TABS 926018 METFORMIN HCL Inactive METOPROLOL TARTRATE 50 MG TABS 1 bid METOPROLOL TARTRATE 50 MG TABS 268124 METOPROLOL TARTRATE Inactive GNP THERAPEUTIC-M TABS 1 qd GNP THERAPEUTIC-M TABS MULTIPLE VITAMINS-MINERALS Inactive AMBIEN 10 MG TABS 1 q hs prn AMBIEN 10 MG TABS 529728 ZOLPIDEM TARTRATE Inactive CLONIDINE HCL 0.2 MG TABS 1 q 8 hrs as needed -greater than 160-htn CLONIDINE HCL 0.2 MG TABS 381180 CLONIDINE HCL Inactive ANTIVERT 25 MG TABS 1 q 6 hrs prn ANTIVERT 25 MG TABS MECLIZINE HCL Inactive NEURONTIN 400 MG CAPS Take one by mouth 3 times daily, morning, afternoon and evening.] NEURONTIN 400 MG CAPS 410635 GABAPENTIN Inactive IMDUR 120 MG [id number] 1 qd IMDUR 120 MG [id number] ISOSORBIDE MONONITRATE Inactive CVS MILK OF MAGNESIA [...] for arthritis pain MOBIC 15 MG TABS 008999 MELOXICAM Inactive LEVEMIR 100 UNIT/ML SOLN 5 units sub-q at bedtime LEVEMIR 100 UNIT/ML SOLN INSULIN DETEMIR Inactive SULFAMETHOXAZOLE-TMP DS 800-160 MG TABS 1 TAB PO BID SULFAMETHOXAZOLE-TMP DS 800-160 MG TABS 379435 SULFAMETHOXAZOLE-TRIMETHOPRIM Inactive AMBIEN 10 MG TAB 1 tab by mouth at bedtime as needed for sleep AMBIEN 10 MG TAB 017524 ZOLPIDEM TARTRATE Inactive POTASSIUM CHLORIDE CHELA ER 20 MEQ CR-TABS 1 tab PO daily POTASSIUM CHLORIDE CHELA ER 20 MEQ CR-TABS POTASSIUM CHLORIDE CHELA CR Inactive MIRALAX POWD 17 gms in 4 oz water or juice daily MIRALAX POWD 314360 POLYETHYLENE GLYCOL 3350 Inactive CVS VITAMIN C 500 MG TABS 1 po daily CVS VITAMIN C 500 MG TABS 070366 ASCORBIC ACID Inactive COZAAR 100 MG TABS 1 qd COZAAR 100 MG TABS 198619 LOSARTAN POTASSIUM Inactive ALLOPURINOL 300 MG TABS 1 qd ALLOPURINOL 300 MG TABS 025979 ALLOPURINOL Inactive BUDEPRION SR 150 MG [id number] 1 bid BUDEPRION SR 150 MG [id number] BUPROPION HCL Inactive DILANTIN 100 MG CAPS 3 cap tid DILANTIN 100 MG CAPS 960116 PHENYTOIN SODIUM EXTENDED Inactive HYDROCODONE-ACETAMINOPHEN 7.5-325 MG TABS 1 q 6 hrs prn HYDROCODONE-ACETAMINOPHEN 7.5-325 MG TABS 661267 HYDROCODONE- ACETAMINOPHEN Inactive GABAPENTIN 300 MG CAPS 1 CAP PO TID GABAPENTIN 300 MG CAPS 950017 GABAPENTIN Inactive GABAPENTIN 400 MG ORAL CAPS 1 TAB BY MOUTH THREE TIMES DAILY 2015 GABAPENTIN 400 MG ORAL CAPS 953314 GABAPENTIN Inactive METOPROLOL TARTRATE 50 MG ORAL TABS 1 TAB BY MOUTH TWICE DAILY METOPROLOL TARTRATE 50 MG ORAL TABS 588857 METOPROLOL TARTRATE Inactive ZYLOPRIM 300 MG TAB 1 BY MOUTH DAILY ZYLOPRIM 300 MG TAB 861203 ALLOPURINOL Inactive MECLIZINE HCL 25 MG CHEW TAB 1 four times a day as needed for dizziness 02/21 MECLIZINE HCL 25 MG CHEW TAB 279846 MECLIZINE HCL Inactive ATIVAN 0.5 MG TABS Take 1 tablet 2x daily PRN ATIVAN 0.5 MG TABS 521409 LORAZEPAM Inactive CELEXA 20 MG TABS Take 1 tablet 1x daily CELEXA 20 MG TABS 548630 CITALOPRAM HYDROBROMIDE Inactive ULORIC 40 MG ORAL TABS 1 daily for gout. ULORIC 40 MG ORAL TABS FEBUXOSTAT Inactive BUPROPION HCL ER (SR) 150 MG [id number] 1 twice a day for depression BUPROPION HCL ER (SR) 150 MG [id number] BUPROPION HCL Inactive MULTIVITAMINS CAPS 1 DAILY MULTIVITAMINS CAPS MULTIPLE VITAMIN Inactive NORCO 5-325 MG TABS 1-2 TAB Q 6 HRS PRN NORCO 5-325 MG TABS 677440 HYDROCODONE-ACETAMINOPHEN Inactive PHENYTOIN 50 MG CHEW 1 TAB PO BID PHENYTOIN 50 MG CHEW 2981499 PHENYTOIN Inactive FENTANYL 12 MCG/HR PT72 Apply to clean, dry skin and change every 72 hours FENTANYL 12 MCG/HR PT72 749036 FENTANYL Inactive FENTANYL 25 MCG/HR PT72 Apply to clean skin and change every 72 hours. 07/03 FENTANYL 25 MCG/HR PT72 115009 FENTANYL Inactive Advance Directives Directive Description Start [...] mg/dL Encounters Code Encounter Date Provider Facility CPT-39559 Level 3 Est. Patient 19:05:03 CDT Jonel Hemphill MD [facility] CPT-92409 Level 3 Est. Patient 17:30:47 CDT Kevin Link MD [facility] CPT-15891 Level 3 Est. Patient 18:04:07 CDT Jonel Hemphill MD [facility] CPT-95192 Level 3 Est. Patient 17:18:03 CDT Jonel Hemphill MD [facility] CPT-09496 Level 3 Est. Patient 21:58:03 [employer] Jonel Hemphill MD [facility] CPT-67059 Level 4 Est. Patient 18:03:14 CDT Jonel Hemphill MD [facility]-40807 Level 4 Est. Patient 13:24:53 CDT Jonel Hemphill MD [facility]-27629 Level 4 Est. Patient 09:15:44 CDT Jonel Hemphill MD [facility]-45110 Level 4 Est. Patient 19:16:01 CDT Jonel Hemphill MD [facility]-95733 Level 4 Est. Patient 11:25:16 CDT Jonel Hemphill MD [facility] CPT-87975 Level 4 Est. Patient 09:00:40 CDT Jonel Hemphill MD [facility]-74990 Level 4 Est. Patient 14:53:58 CDT Jonel Hemphill MD [facility] CPT-52045 Level 4 Est. Patient 22:59:01 CDT Jonel Hemphill MD [facility]-47919 Level 4 Est. Patient 09:29:57 CDT Jonel Hemphill MD [facility]-10365 Level 4 Est. Patient 12:35:53 [employer]ETTE [employer] Jonel Hemphill MD [facility]-48526 Level 4 Est. Patient 22:36:09 [employer]TE [employer] Jonel Hemphill MD [facility]-67314 Level 2 Est. Patient 15:14:15 [employer]ARETTE [employer] Mayco Shah APRN [facility]-66475 Level 4 Est. Patient 10:36:22 [employer]ARETTE [employer] Jonel Hemphill MD [facility] CPT-91629 Level 4 Est. Patient 22:01:13 CIGARETTE TESTER Jonel Hemphill MD [facility] CPT-26452 Level 3 Est. Patient 21:50:37 [employer]IGARETTE [employer] Jonel Hemphill MD [facility] CPT-85244 Level 4 Est. Patient 15:02:43 CDT Rubin Pierre MD [facility] CPT-05648 Level 4 Est. Patient 14:27:35 CDT Jonel Hemphill MD [facility] CPT-73020 Level 4 Est. Patient 12:41:17 CDT Jonel Hemphill MD [facility]-69152 Level 4 Est. Patient 16:18:55 CDT Jonel Hemphill MD [facility]-73221 Level 4 Est. Patient 17:58:05 CDT Jonel Hemphill MD [facility]-47585 Level 4 Est. Patient 22:10:06 CDT Jonel Hemphill MD [facility]-73596 Level 4 Est. Patient 13:22:09 CDT Jonel Hemphill MD [facility] CPT-63293 Level 4 Est. Patient 22:52:17 [employer]IGARETTE [employer] Jonel Hemphill MD [facility]-71777 Level 3 Est. Patient 22:34:10 [employer]ARETTE [employer] Jonel Hemphill MD [facility]-64847 Level 4 Est. Patient 07:49:20 [employer]ARETTE [employer] Jonel Hemphill MD [facility] Skilled CPT-17289 Level 3 Est. Patient 08:28:27 [employer]ARETTE [employer] Jonel Hemphill MD [facility] Procedures Code Procedure Name Date Entry Date Standard Description CPT-27246 Level 3 [facility] 21:14:15 CIGARETTE [employer] CPT-57790 Level 3 [facility] 15:38:24 CDT CPT-87238 Level 3 [facility] 08:18:30 CDT CPT-02616 Level 3 [facility] 19:03:14 CDT CPT-78671 Level 3 [facility] 17:42:11 CDT CPT-65559 Level 3 [facility] 16:04:10 CDT CPT-37829 Level 3 [facility] 19:38:15 CIGARETTE TE[employer] CPT-14381 Level 3 [facility] 19:28:48 CIGARETTE TE[employer] CPT-62398 Level 3 [facility] 18:02:20 CIGARETTE TE[employer] CPT-79445 Level 3 [facility] 15:02:14 CIGARETTE TE[employer] CPT-35521 Level 3 [facility] 12:25:37 CDT CPT-03633 Level 3 [facility] 12:48:39 CDT CPT-96453 Level 3 [facility] 17:39:14 CDT CPT-76663 Level 3 [facility] 13:32:58 CDT CPT-10009 Level 3 [facility] 17:43:43 CDT CPT-92056 Level 3 [facility] 12:03:33 CIGARETTE TE[employer] CPT-82583 Level 3 [facility] 18:47:28 CIGARETTE TE[employer] CPT-78824 Level 3 [facility] 17:35:26 CIGARETTE TE[employer] CPT-05348 Level 3 [facility] 18:44:49 CIGARETTE TE[employer] CPT-27802 Level 3 [facility] 18:17:33 CDT CPT-62651 Level 3 [facility] 09:25:33 CDT CPT-27018 Level 3 [facility] 19:11:57 CDT CPT-58551 Level 3 [facility] 09:25:52 CDT CPT-53370 Level 3 [facility] 14:23:59 CDT CPT-12880 Level 3 [facility] 12:09:43 CDT CPT-59906 Level 3 [facility] 09:37:40 CDT CPT-62842 Level 3 [facility] 18:23:02 CDT CPT-60189 Level 3 [facility] 14:09:06 CDT CPT-57231 Level 3 [facility] 12:43:27 C[employer]ARETTE TE[employer] CPT-00584 Postop F/U Visit 14:10:15 [employer]IGARETTE TE[employer] CPT-24658 [facility] 17:07:14 [employer]IGARETTE TE[employer] CPT-72843 Level 3 [facility] 16:14:37 CIGARETTE TE[employer] CPT-30206 Port a cath flush 11:47:42 CDT CPT-21504 Port a cath flush 08:29:49 CDT CPT-OV Office Visit 14:27:58 [employer]ARETTE TE[employer]
== END 2016-08-03 15:02 | disposition home or self-care (01) ==
LOC: CATH 08:48
PROVIDERS: ATTEND Internal Medicine Interventional Cardiology
DX: R07.89 Other chest pain (principal); R94.39 Abnormal result of other cardiovascular function study; I48.0 Paroxysmal atrial fibrillation; E11.9 Type 2 diabetes mellitus without complications; I69.359 Hemiplegia and hemiparesis following cerebral infarction affecting unspecified side; Z79.01 Long term (current) use of anticoagulants; Z79.4 Long term (current) use of insulin; Z79.899 Other long term (current) drug therapy
CPT/HCPCS: 36415; 80053; 81000; 85027; 85610; 85730; 87081; 93458